=== PATIENT | female | born 1950 | race Caucasian/White ===

== ENCOUNTER 2023-06-30 15:00 | Emergency (ER) | payer OTHER ==
--- NOTE | 2023-06-30 16:08 | RAD REPORT ---
EXAM DESCRIPTION: RAD - Chest Single View - 06/30/2023 3:55 pm CLINICAL HISTORY: AMS COMPARISON: <Comparisons> FINDINGS: Lines: None. Lungs: No evidence of edema or pneumonia. Pleural: No significant pleural effusions or pneumothorax. Cardiac: Mild enlargement of the cardiopericardial silhouette which is likely accentuated by portable technique. Mediastinum: Within normal limits. Bones: No acute fractures. Other: None IMPRESSION: No acute cardiopulmonary disease.
[2023-06-30] MEDS ORDERED: ACETAMINOPHEN 500 MG TAB ONE (16:28)
[2023-06-30 16:29] LABS: Anion Gap 9.5 mEq/L (5.0-15.0); Potassium 3.5 mEq/L (3.5-5.1); Troponin High Sensitivity 53.5 pg/mL (<58.9)
[2023-06-30 16:38] LABS: Absolute Basophils 0.1 K/uL (0-0.5); Absolute Eosinophils 0.3 K/uL (0-0.5); Absolute Lymphocytes (CBC) 2.3 K/uL (0.7-4.9); Absolute Monocytes 0.7 K/uL (0.1-1.3); Absolute Neutrophil 7.6 K/uL (1.8-8.0); Basophils % 0.8 % (0-1.3); Eosinophils % 2.5 % (0-4.4); Hematocrit 27.7 % (36.0-45.0); Hemoglobin 8.4 g/dL (12.0-15.0); Lymphocytes % 21.3 % (15.3-44.8); MCH 20.8 pg (27.0-35.0); MCHC 30.4 g/dL (32.0-36.0); MCV 68.2 fL (80-100); MPV 7.3 fL (7.6-11.3); Monocytes % 6.5 % (3.3-12.3); Neutrophils % 68.9 % (41.7-73.7); Nucleated Red Blood Cells % 0.2 % (0-0); Platelets 412 thou/uL (152-406); RBC Red Blood Cell Count 4.06 M/uL (3.86-4.86); Red Cell Distribution Width 19.7 % (12.1-15.2)
[2023-06-30 17:34] LABS: Anisocytosis 1+; Blood Morphology Comment NOTED (NOT SEEN); Platelet Estimate INCR; White Blood Cell Scan OK (OK)
[2023-06-30 17:35] LABS: Hypochromasia 1+
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
--- NOTE | 2023-06-30 17:44 | ER ---
Nurse's Notes [facility] Name: Gwendolyn Grier Age: 72 yrs Sex: Female : 1950 Arrival Date: 06/30/2023 Time: 15:00 Bed 8 Private MD: Diagnosis: Anemia, unspecified;Chronic atrial fibrillation Presentation: 06/29 16:15 Acuity: [place] 3 ap3 16:16 Coronavirus screen: At this time, the client does not indicate any symptoms associated ap3 with coronavirus-19. Ebola Screen: No symptoms or risks identified at this time. No acute neurological deficit is noted. Risk Assessment: Do you want to hurt yourself or someone else? Patient reports no desire to harm self or others. Onset of symptoms is unknown. 16:16 Method Of Arrival: Wheelchair ap3 16:18 Initial Sepsis Screen: Does the patient meet any 2 criteria? No. Patient's initial ap3 sepsis screen is negative. Does the patient have a suspected source of infection? No. Patient's initial sepsis screen is negative. Triage Assessment: 16:17 General: Appears obese, Behavior is anxious. Pain: Complains of pain in generalized. ap3 Neuro: Level of Consciousness is awake, alert, obeys commands, Oriented to person, place, time, situation, Appropriate for age Speech is normal. Cardiovascular: Patient's skin is warm and dry. Respiratory: Airway is patent Respiratory effort is even, unlabored, Respiratory pattern is regular, symmetrical. Historical: - Allergies: 17:20 No Known Allergies; bo1 - Immunization history:: Adult Immunizations unknown. - Infectious Disease History:: Denies. - Social history:: Smoking status: Patient denies any tobacco usage or history of. Screenin:18 Abuse screen: Denies threats or abuse. Nutritional screening: No deficits noted. ap3 Tuberculosis screening: No symptoms or risk factors identified. 16:32 [place] Swallow Protocol Exclusion Criteria: Unable to remain alert for testing: No NPO ap3 for medical/surgical reason by provider order No Head-of-bed restricted <30 degrees Tracheostomy tube present No No thin liquids due to preexisting dysphagia/baseline modified diet thickened liquids No Brief Cognitive Screen What is your name? Normal, Where are you right now? Normal, What year is it? Normal. Oral Mechanism Examination Facial Symmetry: Normal, Motion: Normal, Lip Closure: Normal, Oral Mechanism Result: Normal. 3 oz Water Swallow Challenge: Pt able to drink all water without stopping, coughing, choking or throat clearing: Yes Result: PASS Notified: Ze Solis MD. 17:00 [facility] ED Fall Risk Assessment (Adult) History of falling in the last 3 months, ko1 including since admission No falls in past 3 months (0 pts) Confusion or Disorientation No (0 pts) Intoxicated or Sedated No (0 pts) Impaired Gait Yes (1 pt) Mobility Assist Device Used Yes (1 pt) Altered Elimination No (0 pt) Score/Fall Risk Level 0 - 2 = Low Risk Oriented to surroundings, Maintained a safe environment, Educated pt \T\ family on fall prevention, incl call for assistance when getting out of bed, Assessed \T\ reinforced patient's understanding of fall precautions, Provided non-skid footwear, Hourly rounding (assess needs \T\ fall precautionary measures) done, Used ambulatory aids as needed (educated on \T\ assisted with), Used gait belt as appropriate. Assessment: 17:00 General: Appears obese, Behavior is anxious. Pain: Denies pain. Neuro: No deficits ko1 noted. Cardiovascular: No deficits noted. Respiratory: Reports shortness of breath. GI: No deficits noted. : No deficits noted. EENT: No deficits noted. Derm: No deficits noted. Derm: No deficits noted. Musculoskeletal: No deficits noted. Vital Signs: 16:16 BP 156 / 82; Pulse 93; Resp 19; Temp 97.7; Pulse Ox 98% ; ap3 17:00 BP 134 / 68; Pulse 74; Resp 16; Pulse Ox 99% ; ko1 17:20 BP 121 / 70; Pulse 79; Resp 17; Pulse Ox 99% ; ap3 NIH Stroke Scale Scores: 17:13 NIHSS Score: 0 bo1 ED Course: 15:06 Patient arrived in ED. mr 15:07 Ze Solis MD is Attending Physician. bo1 15:08 Arm band placed on Patient placed in an exam room, on a stretcher. hb 15:33 Radiology exam delayed due to PT IS REFUSING EXAM, SHE SAID SHE WILL NOT LAY DOWN 2 TO nj [address] SOLIS. 15:56 Stroke CXR 1 View In Process Unspecified. EDMS 16:01 Petra Pérez, RN is Primary Nurse. ap3 16:01 by al, sent to lab. Inserted saline lock: 22 gauge in left hand, using aseptic ap3 technique. Blood collected. 16:16 Triage completed. ap3 16:18 Patient has correct armband on for positive identification. Bed in low position. Call ap3 light in reach. Side rails up X2. Adult w/ patient. panel monitor on. Pulse ox on. NIBP on. 16:30 Patient requests pain medication. ap3 17:00 Provided Education on: na. ko1 17:00 No provider procedures requiring assistance completed. IV discontinued, intact, ko1 bleeding controlled, No redness/swelling at site. Pressure dressing applied. 17:03 Notified ED physician of a critical lab result(s). LACTATE 2.1. hb 17:05 EKG done, by ED staff, reviewed by Ze Solis MD. ap3 Administered Medications: 16:33 Drug: Acetaminophen PO 1000 mg PO once Route: PO; ap3 Medication: 16:18 VIS not applicable for this client. ap3 Outcome: 17:00 Discharged to home via wheelchair, with family, ko1 17:00 Condition: stable 17:00 Discharge instructions given to patient, family, Instructed on discharge instructions, follow up and referral plans. Demonstrated understanding of instructions, follow-up care, Prescriptions given X 1, 17:44 Discharge ordered by . bo1 18:23 Patient left the ED. ko1 NIH Stroke Scale - NIH Stroke Score Date: 06/30/2023 Time: 17:13 Total Score = 0 10. Dysarthria (speech clarity - read or repeat words) - 0(Normal) 11. Extinction and Inattention (visual/tactile/auditory/spatial/personal) - 0(No abnormality) 1a. Level of Consciousness (LOC) - 0(Alert) 1b. Level of Consciousness (LOC) (Month \T\ Age) - 0(Both) 1c. LOC Commands (Open \T\ Closes Eyes/Certified Breastfeeding Educator) - 0(Both) 2. Best Gaze (Lateral Gaze Paresis) - 0(Normal) 3. Visual Field Loss - 0(No visual loss) 4. Facial Palsy - 0(Normal) 5a. Left Arm: Motor (10-second hold) - 0(No drift) 5b. Right Arm: Motor (10-second hold) - 0(No drift) 6a. Left Leg: Motor (5-second hold - always test supine) - 0(No drift) 6b. Right Leg: Motor (5-second hold - always test supine) - 0(No drift) 7. Limb Ataxia (finger/nose \T\ heel/zendejas - test with eyes open) - 0(Absent) 8. Sensory Loss (pinprick arms/legs/face) - 0(Normal) 9. Best Language: Aphasia (description/naming/reading) - 0(No aphasia) Initials: bo1 Signatures: Dispatcher [employer] EDCT Julian Michelle, Reg Reg mr BustamanteConcha, RN RN Major Munoz Amanda, RN RN ap3 Marsha Alan RN RN ko1 Ze Solis MD MD bo1 Corrections: (The following items were deleted from the chart) 16:39 16:38 General: ap3 ap3
[2023-06-30 19:55] VITALS: BP 121/70; TEMP 97.7; O2SAT 99
--- NOTE | 2023-07-03 12:50 | EKG ---
Test Date: 2023-06-30 Test Time: 16:56:09 Cloth Hand: ALP MEASUREMENT RESULTS: Intervals: Rate: 88 UT: QRSD: 80 QT: 342 QTc: 413 [place]: P: UT: QRS: 47 T: -2 INTERPRETIVE STATEMENTS: Atrial fibrillation Low voltage QRS Nonspecific T wave abnormality Abnormal ECG No previous ECG available for comparison Electronically Signed On 07-03-23 12:43:17 CDT by Krishna Palencia
== END 2023-06-30 18:23 | disposition home or self-care (01) ==
LOC: ER 15:00
DX: D64.9 Anemia, unspecified (principal); I48.20 Chronic atrial fibrillation, unspecified
CPT/HCPCS: 36415; 71045; 80048; 83605; 84484; 85025; 93005; 99284

== ENCOUNTER 2023-12-02 11:48 | Emergency (ER) | payer OTHER ==
--- OUTSIDE RECORDS SUMMARY | 2023-12-02 12:04 | XMS REPORT | Continuity of Care Document ---
Author Name Unknown Address [address] [place] [address] [facility] thconnect Address [address] [place] [address] Care Team Providers Care Backbreaker Name Role Phone Pcp, Patient Does Not Have A Primary Care Physic brant Ivan Rogers MD Attending Clinician Daisy Nelson RN Attending Clinician Unavailable ANNA PEOPLES Attending Clinician UnavailANNA Jolly Attending Clinician UnavailPablo Morejon MD Attending Clinician [phone] Stefanie Benites MD Attending Clinician [phone] Anna Peoples MD Attending Clinician [phone] STEFANIE BENITES Admitting Clinician Stefanie Gonzales MD Admitting Clinician [phone] Payers Payer Name Policy Type Policy Number Effective Date Expirati on Date Source Problems Condition Name Condition Details Condition Category Status Onset Date Resolution Date Last Treatment Date Treating Clinician Comments Source Abdominal pain, unspecifie d abdominal location Abdominal pain, unspecifie d abdominal location Disease Active 11-19 00:00: 00 [facility] Allergies, Adverse Reactions, Alerts Allergy Name Allergy Type Status Severity Reaction(s) Onset Date Inactive Date Treating Clinician Comments Source NO KNOWN ALLERGIE S Drug Class Active [facility] Social History Social Habit Start Date Stop Date Quantity Comments Source History of tobacco use Cigarette Smoker [facility] Sexual orientation [facility] Cigarettes smoked current (pack per day) - Reported 2023-11-22 00:00:00 2023-11-22 00:00:00 [facility] Cigarette pack-years 2023-11-22 00:00:00 2023-11-22 00:00:00 [facility] Tobacco use and exposure 2023-11-22 00:00:00 2023-11-22 00:00:00 Smokeless tobacco non-user [facility] History of Social function 2023-11-21 00:00:00 2023-11-21 00:00:00 [facility] Sex assigned at 1950 00:00:00 1950 00:00:00 [facility] Smoking Status Start Date Stop Date Source Ex-smoker 2023-11-22 00:00:00 2023-11-22 00:00:00 [facility] Medications Ordered Medication Name Filled Medication Name Start Date Stop Date Current Medication? Ordering Clinician Indication Dosage Frequency Signature (SIG) Comments Components Source HYDROcodone -acetaminop hen 5-325 mg tablet 11-27 00:00: 00 Yes [id number] 1{tbl} Take 1 tablet by mouth every 6 (six) hours as needed for Pain (scale 7-10). Indication s: acute pain, chronic pain [facility] gabapentin 100 mg capsule 11-23 00:00: 00 Yes [id number] 100mg Take 1 capsule by mouth in the morning. [facility] polyethylen e glycol 3350 17 gram powder 11-23 00:00: 00 Yes [id number] 17g Take 1 Packet by mouth in the morning. [facility] sennosides 8.6 mg tablet 11-23 00:00: 00 Yes [id number] 8.6mg Take 1 tablet by mouth in the morning. [facility] perflutren lipid microsphere s (DEFINITY) injection 2 mL 11-22 15:30: 00 11-22 15:30 :00 No [id number] 2mL 2 mL, IV Push, ONCE, 1 dose, On Mon11/23/23 at 1030, Routine [facility] Potassium Bicarb-Citr ic Acid (EFFER-K) effervescen t tablet 40 mEq 11-22 13:15: 00 11-22 13:06 :00 No 40meq 40 mEq, Oral, ONCE, 1 dose, On Mon11/23/23 at 0815, Routine [facility] cephALEXin (KEFLEX) capsule 500 mg 11-22 13:00: 00 11-27 12:59 :00 Yes 500mg 500 mg, Oral, Q12H, 10 doses, First dose on Mon11/23/23 at 0800, Last dose on Mon11/27/23 at 2000, DIMAS, Reason for Anti-Infec tive: Documented Infection, Documented Infection Site: Urine, Duration of Therapy: 7 days [facility] cephALEXin 500 mg capsule 11-22 00:00: 00 Yes [id number] 500mg Take 1 capsule by mouth every 12 (twelve) hours. [facility] ferrous sulfate 325 mg (65 mg iron) tablet 11-22 00:00: 00 Yes [id number] 325mg Take 1 tablet by mouth every other day. [facility] HYDROcodone -acetaminop hen 5-325 mg tablet 11-22 00:00: 00 11-27 00:00 :00 No [id number] 1{tbl} Take 1 tablet by mouth every 6 (six) hours as needed for Pain (scale 7-10) for up to 7 days. Indication s: acute pain [facility] lidocaine 4% (L-M-X 4) 4 % cream 11-21 22:00: 00 11-21 22:36 :00 No Topical, ONCE, 1 dose, On Mon11/22/23 at 1700, Routine [facility] gabapentin (NEURONTIN) capsule 100 mg 11-21 18:15: 00 Yes 100mg 100 mg, Oral, DAILY, First dose (after last modificati on) on Mon11/22/23 at 1315, Until Discontinu ed, Routine [facility] HYDROcodone -acetaminop hen (NORCO 5) tablet 1 tablet 11-21 14:45: 33 Yes 1{tbl} 1 tablet, Oral, Q6HPRN, Starting on Mon11/22/23 at 0945, Until Discontinu ed, Routine, Pain (scale 7-10) [facility] simethicone (GAS RELIEF (SIMETHICON E)) chewable tablet 80 mg 11-21 14:00: 00 Yes 80mg 80 mg, Oral, PC+HS, First dose on Mon11/22/23 at 0900, Until Discontinu ed, Routine [facility] cefTRIAXone (ROCEPHIN) 1,000 mg in NaCl 0.9% (NS) 100 mL MINI-BAG 11-20 21:00: 00 11-22 12:28 :15 No 1000mg 1,000 mg, IV Piggyback, Q24H ABX, 5 doses, First dose on Mon11/21/23 at 1600, Last dose on Mon11/25/23 at 1600, Administer over 30 Minutes, 100 mL, Reason for Anti-Infec tive: Documented Infection, Documented Infection Site: Urine, Duration of Therapy: 7 days [facility] polyethylen e glycol 3350 powder 17 g 11-20 14:00: 00 Yes 17g [Order 1 Start] Name: polyethyle ne glycol 3350 powder 17 g Signed Summary: 17 g, Oral, DAILY, First dose on Mon11/21/23 at 0900, Until Discontinu ed, Routine [Order 1 End] [Order 2 Start] Name: sennosides (SENOKOT) tablet 8.6 mg Signed Summary: 8.6 mg, Oral, DAILY, First dose on Mon11/21/23 at 0900, Until Discontinu ed, Routine [Order 2 End] [facility] ramelteon (ROZEREM) tablet 8 mg 11-20 05:00: 00 11-20 05:00 :00 No 8mg 8 mg, Oral, ONCE NOW, 1 dose, On Mon11/21/23 at 0000, Routine [facility] glycerin/mi neral oil (AGLO ENEMA) (COMPOUNDED ) Enem 225 mL 11-20 04:19: 23 Yes 225mL 225 mL, Rectal, PRN, Starting on Mon11/20/23 at 2319, Until Discontinu ed, Routine, Constipati on unresolved by oral medication s [facility] heparin (porcine) injection 5,000 Units 11-20 03:00: 00 Yes 5000U 5,000 Units, Subcutaneo us, Q8H, First dose on Mon11/20/23 at 2200, Until Discontinu ed, Routine [facility] acetaminoph en (TYLENOL) tablet 650 mg 11-20 02:16: 20 Yes 650mg [facility] insulin lispro (human) (HumaLOG U-100) injection 2 Units 11-19 22:22: 30 Yes 2U 2 Units, Subcutaneo us, PRN - SEE INSTRUCTIO NS, 1 dose, Starting on Mon11/20/23 at 1722, Until Discontinu ed, Routine, For blood glucose > 300 mg/dL [facility] dextrose 10% (D10W) bolus infusion 125 mL 11-19 22:22: 30 11-20 00:19 :00 No 125mL 125 mL, Intravenou s, PRN - SEE INSTRUCTIO NS, Administer over 60 Minutes, Other, Administer once if after insulin administra tion, blood glucose is 71-140 mg/dL and patient is unable to eat a 15 g carb snack, Starting on Mon11/20/23 at 1722, For 1 dose, If patient is able to eat/swallo w, give 15 gram carb snack - Sprite or cranberry juice. [facility] NaCl 0.9% (NS) bolus infusion 500 mL 11-19 22:00: 00 11-19 23:24 :00 No [id number] 500mL at 999 mL/hr, 500 mL, IV Piggyback, ONCE, 1 dose, On Mon11/20/23 at 1700, STAT [facility] lidocaine (XYLOCAINE) 2 % jelly URO-JET 10 mL 11-19 20:45: 11-19 22:32 :00 No 10mL 10 mL, Urethral, ONCE, 1 dose, On Mon11/20/23 at 1545, Routine [facility] sodium bicarbonate 150 mEq in D5W 1,000 mL IV infusion 11-19 20:30: 00 11-20 06:30 :00 No 150meq IV Infusion, at 200 mL/hr, 150 mEq, ONCE, 1 dose, On Mon11/20/23 at 1530, DIMAS [facility] insulin regular human (HUMULIN R) injection 10 Units 11-19 20:30: 00 11-19 23:14 :00 No 10U 10 Units, IV Push, ONCE, 1 dose, On Mon11/20/23 at 1530, DIMAS, Indication for insulin: Hyperkalem ia- Please use the Insulin Protocol for Hyperkalem ia order set [facility] dextrose 50 % in water (D50W) injection 50 mL 11-19 20:30: 00 11-19 23:06 :00 No 50mL 50 mL, Slow IV Push, ONCE, 1 dose, On Mon11/20/23 at 1530, DIMAS [facility] glucagon HCL injection 1 mg 11-19 20:17: 46 Yes 1mg 1 mg, Intramuscu lar, PRN, Starting on Mon11/20/23 at 1517, Until Discontinu ed, DIMAS, Low blood sugar, Blood Glucose < or = 70 mg/dL and patient is NPO, unable to swallow or has mental changes. [facility] dextrose 50 % in water (D50W) injection 25 mL 11-19 20:17: 46 Yes 25mL 25 mL, Slow IV Push, PRN, Starting on Mon11/20/23 at 1517, Until Discontinu ed, DIMAS, Blood Glucose < or = 70 mg/dL and patient is NPO, unable to swallow or has mental status changes. [facility] metoclopram margarita HCl (REGLAN) injection 10 mg 11-19 20:00: 00 11-19 20:48 :00 No 10mg 10 mg, Slow IV Push, ONCE, 1 dose, On Mon11/20/23 at 1500, DIMAS [facility] fentanyl PF (SUBLIMAZE (PF)) injection 12.5 mcg 11-19 20:00: 00 11-19 20:34 :00 No 12.5ug 12.5 mcg, Slow IV Push, ONCE, 1 dose, On Mon11/20/23 at 1500, Routine [facility] piperacilli n-tazobacta m (ZOSYN) 2.25 g in NaCl 0.9% (NS) 100 mL MINI-BAG 11-19 20:00: 00 11-19 22:31 :00 No 2.25g 2.25 g, IV Piggyback, ONCE, 1 dose, On Mon11/20/23 at 1500, Administer over 30 Minutes, 100 mL, Reason for Anti-Infec tive: Documented Infection, Documented Infection Site: Urine, Duration of Therapy: Once (ED) [facility] NaCl 0.9% (NS) bolus infusion 500 mL 11-19 17:30: 00 11-19 22:31 :00 No 500mL at 999 mL/hr, 500 mL, IV Infusion, ONCE, 1 dose, On Mon11/20/23 at 1230, STAT [facility] Vital Signs Vital Name Observation Time Observation Value Comments S ource Systolic blood pressure 2023-11-23 16:54:00 136 [facility] Diastolic blood pressure 2023-11-23 16:54:00 61 mm[Hg[facility] Heart rate 2023-11-23 16:54:00 92 /min [facility] Body temperature 2023-11-23 16:54:00 36.22 Adore [facility] Respiratory rate 2023-11-23 16:54:00 18 /min [facility] Oxygen saturation in Arterial blood by Pulse oximetry 2023-11-23 16:54:00 96 /min [facility] Body height 2023-11-21 01:17:00 170.2 cm [facility] Body weight 2023-11-21 01:17:00 171.913 kg [facility] BMI 2023-11-21 01:17:00 59.36 kg/m2 [facility] Procedures Procedure Date / Time Performed Performing Clinician Source TRANSTHORACIC ECHO (TTE) COMPLETE W/ CONTRAST 2023-11-23 15:24:26 Radha [facility] MAGNESIUM 2023-11-23 11:09:00 Radha Cherry [facility] BASIC METABOLIC PANEL (NA, K, CL, CO2, GLUCOSE, BUN, CREATININE, CA) 2023-11-23 11:09:00 [facility] CBC WITH DIFF 2023-11-23 11:09:00 [facility] HB ECG ROUTINE & RHYTHM STRIP 2023-11-22 14:50:13 Radha [facility] MAGNESIUM 2023-11-22 10:01:00 Jet Aguilar [facility] THYROID STIMULATING HORMONE 2023-11-22 10:01:00 Radha [facility] BASIC METABOLIC PANEL (NA, K, CL, CO2, GLUCOSE, BUN, CREATININE, CA) 2023-11-22 10:01:00 Jet Aguilar [facility] CBC WITH DIFF 2023-11-22 10:01:00 Jet Aguilar [facility] CBC WITHOUT DIFF 2023-11-21 16:46:00 Jet Aguilar [facility] US RETROPERITONEAL LIMITED 2023-11-21 12:03:00 [facility] PREPARE PACKED RBC 2023-11-21 11:09:04 Kiera Davidson [facility] ABORH CONFIRMATION (LAB ONLY) 2023-11-21 10:16:00 Anna Peoples [facility] HB ABO GROUPING 2023-11-21 10:05:00 Thelma Davidson [facility] CBC WITHOUT DIFF 2023-11-21 09:34:00 King Davidson [facility] MAGNESIUM 2023-11-21 08:51:00 [facility] BASIC METABOLIC PANEL (NA, K, CL, CO2, GLUCOSE, BUN, CREATININE, CA) 2023-11-21 08:51:00 [facility] CBC WITH DIFF 2023-11-21 08:51:00 [facility] LACTIC ACID WHOLE BLOOD 2023-11-21 04:02:00 [facility] BLOOD CULTURE SCREEN 2023-11-21 03:55:00 Cyndy Davidson [facility] LACTATE DEHYDROGENASE 2023-11-21 03:05:00 [facility], LEV[facility] 2023-11-21 03:05:00 Kiera Davidson [facility] FOLATE 2023-11-21 03:05:00 [facility] BASIC METABOLIC PANEL (NA, K, CL, CO2, GLUCOSE, BUN, CREATININE, CA) 2023-11-21 03:05:00 [facility] IRON PANEL 2023-11-21 03:05:00 [facility] ETHANOL 2023-11-21 03:05:00 [facility] 2023-11-21 03:05:00 Kirk Davidsonmehdi [facility] ACTIVATED PARTIAL THRMPLAS JESUS MANUEL 2023-11-21 03:05:00 [facility] URINE CULTURE 2023-11-21 02:54:00 [facility] POCT GLUCOSE (AUTOMATED) 2023-11-21 01:29:00 Stefanie Benites [facility] POCT GLUCOSE (AUTOMATED) 2023-11-20 23:13:00 Joleen Chinchilla [facility] INFLUENZA A/B RSV COVID NAAT 2023-11-20 22:31:00 Pablo Chinchilla [facility] LAB ONLY COVID INTERPRETATION 2023-11-20 22:31:00 Pablo Chinchilla [facility] POCT GLUCOSE(AGE >30DAYS) 2023-11-20 21:25:00 Pablo Chinchilla [facility] POCT GLUCOSE (AUTOMATED) 2023-11-20 21:21:00 Joleen Chinchilla [facility] URINE DRUG (IMMUNOASSAY) - COMPREHENSIVE DRUG SCREEN 2023-11-20 21:14:00 [facility] URINALYSIS 2023-11-20 21:14:00 Pablo Chinchilla [facility] CT ABDOMEN PELVIS WO CONTRAST 2023-11-20 19:45:00 Pablo Chinchilla [facility] PHOSPHORUS 2023-11-20 18:25:00 [facility] LIPASE 2023-11-20 18:25:00 Pablo Chinchilla [facility] MAGNESIUM 2023-11-20 18:25:00 Pablo Chinchilla [facility] FERRITIN SERUM 2023-11-20 18:25:00 John Davidson [facility] TROPONIN I 2023-11-20 18:25:00 Pablo Chinchilla [facility] COMP. METABOLIC PANEL (11651) 2023-11-20 18:25:00 Pablo Chinchilla [facility] LACTIC ACID WHOLE BLOOD 2023-11-20 17:16:00 Kerry Chinchilla [facility] CBC WITH DIFF 2023-11-20 17:15:00 Pablo Chinchilla [facility] RETICULOCYTES AUTOMATED 2023-11-20 17:15:00 [facility] HB ECG ROUTINE & RHYTHM STRIP 2023-11-20 16:55:53 Pablo Chinchilla [facility] Encounters Start Date/Time End Date/Time Encounter Type Admission Type Attending Clinicians Care Facility Care Department Encounter ID Source 2023-11-28 00:00:00 2023-11-28 10:13:02 Telephone Ivan Rogers [facility] [id number] [facility] 2023-11-24 00:00:00 2023-11-24 11:30:21 Transition of Care Daisy Nelson [id number] [facility] 2023-11-20 11:14:00 2023-11-23 19:45:00 Inpatient X RICHELLE, ANNA PEOPLESJOSEAH [facility] YAR[facility] [id number] [facility] 2023-11-20 11:14:00 2023-11-23 19:45:00 Hospital Encounter Pablo Chinchilla, Stefanie Peoples, Anna Brown [facility] [id number] [facility] Results Test Description Test Time Test Comments Results Result Co mments Source [facility] RET[facility] [id number] 14:55:16 US RETROPERITONEAL LIMITED 11/21/2023 6:15 AM HISTORY: bilateral ureterohydronephrosis . COMPARISON:None. Correlation CT abdomen dated 11/20/2023. FINDINGS: RIGHT KIDNEY: The renal length measures 12.7 cm. Normal cortical thicknessand echotexture. Mild hydronephrosis with AP diameter of the renal pel vismeasuring 1.5 cm. No mass or stone. LEFT KIDNEY: Not clearly assessed due to significant bowel gases.[facility] Packed RBC (in units), 1 [id number] 11:09:04* Test Item Value Reference Range Interpretation Comme nts Cross Match Result (test code = 4409) Compatible ISBT Blood Type Code (test code = 700551) 6200 Unit Blood Type (test code = 4410) A Pos Unit Number (test code = 4411) [id number] Blood Expiration Date & Time (test code = 511535) 238252949156 Status Information (test code = 4412) Issued Product Identification (test code = 4413) Red Blood Cells Product Code (test code = 4414) [id number] Performed at [facility] Laboratory Services - [facility] Blood [address] [address]Mruj Free: [phone] No. [id number] [facility]Lactic Acid Whole [id number] 04:23:24* Test Item Value Reference Range Interpretation Comme nts LACTIC ACID (test code = 0166796052) 1.38 mmol/L 0.50-2.20 Lab Interpretation (test cod e = 00556-2) Normal [facility] CampusReticulocytes [id number] 03:16:45* Test Item Value Reference Range Interpretation Comme nts RETIC Count Automated (test code = 0299993180) 1.32 % 0.51-1.90 RETIC Absolute Count (test c ode = 2627413615) 0.0478 0.0230-0.0950 IRF % (test code = 7554230609) 29.60 % 2.10-12.60 H RETIC-HE (test code = 7250256716) 25.1 pg 28.1-35.8 L Lab Interpretation (test cod e = 10063-3) Abnormal [facility] GLUCOSE (AUTOMATED)2023-11-21 01:30:47* Test Item Value Reference Range Interpretation Comme nts POCT GLU (test code = 7139062619) 129 mg/dL 70-110 H Lab Interpretation (test cod e = 43866-1) Abnormal [facility] GLUCOSE (AUTOMATED)2023-11-20 23:14:41* Test Item Value Reference Range Interpretation Comme nts POCT GLU (test code = 2212201188) 197 mg/dL 70-110 H Lab Interpretation (test cod e = 69210-9) Abnormal [facility] Glucose (AGE >30 DAYS) - Prior to Insulin Bolus Administration - See [id number] 21:25:00* Test Item Value Reference Range Interpretation Comme nts POCT Glu (age>30days) (test code = 3342) 109 mg/dL 70-110 Lab Interpretation (test cod e = 61652-9) Normal [facility] GLUCOSE (AUTOMATED)2023-11-20 21:21:42* Test Item Value Reference Range Interpretation Comme [facility] POCT GLU (test code = 3228873768) 109 mg/dL 70-110 Lab Interpretation (test cod e = 25036-7) Normal [facility] A[facility]EN PELVIS WO [id number] 20:39:17ORDERING PHYSICIAN: PABLO CHINCHILLA HISTORY: Peritonitis or perforation suspected Bowel obstruction suspected Abdominal pain, acute, nonlocalized TECHNIQUE: CT abdomen and pelvis without intravenous contrast. Thisexamination was performed according to ALARA principles. COMPARISON: None. FINDINGS:Visualized lower chest: Small hiatal hernia. Gastrointestinal: Liver is within normal. Gallbladdercontains a largestone. Pancreas and spleen are within normal limits. Stomach and smallbowel are within normal limits. Large bowel extends into a ventral hernia.Colonic diverticula. Rectum is distended by stool. Genitourinary: Adrenal glands are within normal limits. Bilateralhydroureteronephrosis. Bladder is markedly distended. Pelvic organs arewithin normal limits. Vascular and retroperitoneum: Aorta and iliac artery atheroscleroticcalcifications. No lymphadenopathy. Bones: No acute abnormality. [facility] [id number] 18:35:31* Test Item Value Reference Range Interpretation Comme [facility] WBC (test code = 6690-2) 19.72 4.30-11.10 H RBC (test code = 789-8) 3.56 3.93-5.25 L HGB (test code = 718-7) 8.0 g/dL 11.6-15.0 L HCT (test code = 4544-3) 26.8 % 35.7-45.2 L MCV (test code = 787-2) 75.3 fL 80.6-95.5 L MCH (test code = 785-6) 22.5 pg 25.9-32.8 L MCHC (test code = 786-4) 29.9 g/dL 31.6-35.1 L RDW-SD (test code = 71898-3) 55.5 fL 39.0-49.9 H RDW-CV (test code = 788-0) 20.8 % 12.0-15.5 H PLT (test code = 777-3) 410 166-358 H MPV (test code = 27690-6) 9.6 fL 9.5-12.9 NRBC/100 WBC (test code = 7052704145) 0.0 0.0-10.0 NRBC x10^3 (test code = 2186058651) See_Comment [Automated message] The system which generated this result transmitted reference range: 10*3/?L. The reference range was not used to interpret this result as normal/abnormal. GRAN MAT (NEUT) % (test code = 770-8) 87.7 % IMM GRAN % (test code = 0406316706) 1.10 % LYMPH % (test code = 736-9) 6.3 % MONO % (test code = 5905-5) 4.1 % EOS % (test code = 713-8) 0.4 % BASO % (test code = 706-2) 0.4 % GRAN MAT x10^3(ANC) (test code = 8081518261) 17.31 10*3/uL 1.88-7.09 H IMM GRAN x10^3 (test code = 7006456263) 0.22 10*3/uL 0.00-0.06 H LYMPH x10^3 (test code = 731-0) 1.24 10*3/uL 1.32-3.29 L MONO x10^3 (test code = 742-7) 0.81 10*3/uL 0.33-0.92 EOS x10^3 (test code = 711-2) 0.07 10*3/uL 0.03-0.39 BASO x10^3 (test code = 704-7) 0.07 10*3/uL 0.01-0.07 ELLIPTO/OVAL (test code = 58534-3) 2+ See_Comment A [Automated message] The system which generated this result transmitted reference range: (none). The reference range was not used to interpret this result as normal/abnormal. SPHEROCYTES (test code = 802-9) 1+ A BANDS (test code = 2501034193) Increased A TOXIC CHANGES (test code = 803-7) Present A Lab Interpretation (test code = 76679-2) [facility]normal [facility] [id number] 17:22:29* Test Item Value Reference Range Interpretation Comme nts LACTIC ACID (test code = 4725693375) 2.98 mmol/L 0.50-2.20 H Lab Interpretation (test cod e = 96188-4) Abnormal [facility] Consult Notes Date/Time Note Provider Source 2023-11-22 10:15:00 Associated Order(s): CONSULT ADULT PHYSICAL THERAPY Patient cleared with nursing and agreeable to working with physical therapy. Patient met semi reclined in bed and daughter at bedside . Recommend nursing staff utilize mechanical lift with total assist x 2 to safely assist patient with mobility out of the bed or chair. PHYSICAL THERAPY EVALUATION Consult received, chart reviewed and evaluation complete this date. Patient is referred to PT for evaluation and treatment. Patient is a 73 year old female who presents to hospital for Abdominal pain, unspecified abdominal location [R10.9] NAOMY, UTI, metabolic encephalopathy and afib, not in RVR. Discharge Recommendations: Therapy Needs and Potential: Patient would benefit from continued physical therapy services to address: decline in bed mobility decline in transfers decline in gait and/or balance decreased strength decreased endurance decreased coordination Patient demonstrates good potential to improve and meet therapy goals with further physical therapy services. Patient appears motivated to improve their functional mobility and return to their previous level of function. Patient demonstrates ability to tolerate atleast 30-60 minutes of physical therapy with active participation. Patient will benefit with post acute rehab and 17/10 assist Challenges to Home Transition: increased risk of falls decreased caregiver availability decreased safety awareness environmental barriers Equipment recommendations: wheelchair and mechanical lift - will update accordingly as patient improve with PT Current Functional Status and/or Treatment: AM-PAC 6 Clicks (Raw Score 0=Dependent, 24=Independent; Low function Raw Score 0= Dependent, 32=Independent): Raw Score - Basic Mobility : 8 T-Scale Score - Basic Mobility : 22.61 Patient is alert, Ox3 but gets confused and pushed back during bed mobility d/t fear of falling and c/o pain. Required extended time to participate with max cues and education. Bed Mobility: (2 attempts) Supine <> sit: Max Assistance x 2 Scooting to edge of bed: Max Assistance x 2 Sitting EOB for ~ 1 mins while wt shifting and performing ankle pumping ex SKILLED THERAPY INTERVENTION PERFORMED Cued for proper body mechanics during transition supine to sit Provided assistance to swing B LE out of the bed and onto bed Facilitated B hips to help scoot towards edge of bed Instructed patient to push up on the elbow then to hand to gently lift self up to sitting on EOB Cued provided for pursed lip breathing Max cues for sequence of activities Provided patient with extra time to complete task Dizziness No Transfers: patient refused d/t fear of falling and pain Ambulation: patient refused d/t fear of falling and pain Therapeutic exercise: Patient educated in ROM ex, Postural / positional Awareness, Compensatory techniques/adaptive strategies, Energy conservation, and Fall prevention, instructed patient an exercise program and which she performed the following: AROM ex of bilateral LE while supine A-P 10 reps x 2 sets cues provided for self pacing so as to promote proper quality of motion as well as target specific muscle groups for increased strength and reach full pain free ROM Patient educated on the following: energy conservation and breathing ex. Functional Outcome Measures: (Values within the past 12 hours) After session, patient semi reclined in bed. Call button provided. All needs met, RN aware, family present. PLAN OF CARE: While in the hospital, PT will follow patient at least 2 times per week,once or twice a day, per patient's tolerance and needs. See below for complete details. Admit Date: 11/20/2023 Hospital Diagnosis:Abdominal pain, unspecified abdominal location [R10.9] NAOMY, UTI, metabolic encephalopathy and afib, not in RVR. PT Diagnosis: Difficulty walking, Weakness, and Pain Weight Bearing Precaution: NA General Precautions: General, Fall,Cote catheter, IV Peripheral Bracing/Cast present or required:N/A PMH: Past Medical History: Diagnosis Date Scoliosis PSH: Past Surgical History: Procedure Laterality Date SECTION 1984 Prior Living Situation: lives with their spouse and in a house, DME: Single Point Cane, transport chair Prior level of Mobility: house hold ambulation, ambulates with 2 straight Cane short distances, and reports of at least 5 falls in the last 6 months Suspected ischemic or hemorraghic stroke:No Subjective: "I don't want to get up. I will fall." Patient/Family Goals: Go home with . Patient/Family verbalizes understanding of condition: Yes PAIN: -Pain Location: abdomen, right foot, and left foot -Pain rating before treatment: 9, After treatment: 9 -Pain Management: Reports taking pain meds, Decreased movement aides in some pain reduction, and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 History/Immunizations: No past medical history on file. Tetanus received in last 5 years: Unknown Allergies: No Known Allergies Past Social History: Substance & Sexual Activity No substance use or sexual activity history on file. Past Surgical History: No past surgical history on file. Review of Systems: Review of Systems Constitutional: Negative for activity change, appetite change, chills, diaphoresis, fatigue and fever. HENT: Negative for congestion, ear discharge, ear pain, facial swelling, hearing loss, sore throat, tinnitus, trouble swallowing and voice change. Eyes: Negative for photophobia, pain, discharge, redness, itching and visual disturbance. Respiratory: Negative for apnea, cough, choking, chest tightness, shortness of breath and stridor. Breasts: Negative for discharge. Cardiovascular: Negative for chest pain, palpitations and leg swelling. Gastrointestinal: Positive for abdominal pain. Negative for abdominal distention, blood in stool, diarrhea, nausea and vomiting. Genitourinary: Positive for urgency. Negative for dysuria, frequency, hematuria, flank pain, enuresis and difficulty urinating. Musculoskeletal: Negative for arthralgias, back pain, gait problem, joint swelling, myalgias, neck pain and neck stiffness. Skin: Negative for color change, pallor, rash and wound. Neurological: Negative for dizziness, syncope, facial asymmetry, speech difficulty, weakness, light-headedness and headaches. Psychiatric/Behavioral: Positive for confusion. Negative for agitation, hallucinations and self-injury. The patient is not nervous/anxious. Hematological: Negative for adenopathy, cold intolerance and heat intolerance. Does not bruise/bleed easily. Endocrine: Negative for cold intolerance, heat intolerance, polydipsia and polyphagia. Physical Exam: ED Triage Vitals [11/20/23 1111] Weight 113.4 kg (250 lb) Actual or estimated Estimated by patient/family report Height 1.702 m (5' 7") BP (!) 151/79 Pulse 93 Resp 17 Temp 36.7 ?C (98.1 ?F) Temp source Oral SpO2 99 % Measured on Room air Physical Exam Constitutional: General: She is not in acute distress. Appearance: She is well-developed. She is not ill-appearing, toxic-appearing or diaphoretic. HENT: Head: Normocephalic and atraumatic. Right Ear: External ear normal. Left Ear: External ear normal. Eyes: General: No scleral icterus. Right eye: No discharge. Left eye: No discharge. Neck: Trachea: No tracheal deviation. Cardiovascular: Rate and Rhythm: Normal rate and regular rhythm. Heart sounds: Normal heart sounds. Pulmonary: Effort: Pulmonary effort is normal. No respiratory distress. Breath sounds: Normal breath sounds. No stridor. No wheezing or rales. Abdominal: General: There is no distension. Tenderness: There is abdominal tenderness. There is no guarding. Comments: Obese, indurated around umbilicus, TTP diffusely, large panus Musculoskeletal: General: No tenderness or deformity. Normal range of motion. Cervical back: Normal range of motion and neck supple. Skin: General: Skin is warm. Coloration: Skin is not pale. Findings: No erythema or rash. Neurological: General: No focal deficit present. Mental Status: She is alert. Motor: No abnormal muscle tone. Psychiatric: Behavior: Behavior normal. Radiology: CT ABDOMEN PELVIS WO CONTRAST Final Result ORDERING PHYSICIAN: PABLO CHINCHILLA HISTORY: Peritonitis or perforation suspected Bowel obstruction suspected Abdominal pain, acute, nonlocalized TECHNIQUE: CT abdomen and pelvis without intravenous contrast. This examination was performed according to ALARA principles. COMPARISON: None. FINDINGS: Visualized lower chest: Small hiatal hernia. Gastrointestinal: Liver is within normal. Gallbladder contains a large stone. Pancreas and spleen are within normal limits. Stomach and small bowel are within normal limits. Large bowel extends into a ventral hernia. Colonic diverticula. Rectum is distended by stool. Genitourinary: Adrenal glands are within normal limits. Bilateral hydroureteronephrosis. Bladder is markedly distended. Pelvic organs are within normal limits. Vascular and retroperitoneum: Aorta and iliac artery atherosclerotic calcifications. No lymphadenopathy. Bones: No acute abnormality. IMPRESSION 1. Cholelithiasis. 2. Rectum is distended by stool. 3. Bilateral hydroureteronephrosis likely related to bladder distention. RL: [id number] End of Report Lab Results: Lab Results CBC WITH DIFF - Abnormal Result Value Ref Range WBC 19.72 (*) 4.30 - 11.10 10*3/?L RBC 3.56 (*) 3.93 - 5.25 10*6/?L HGB 8.0 (*) 11.6 - 15.0 g/dL HCT 26.8 (*) 35.7 - 45.2 % MCV 75.3 (*) 80.6 - 95.5 fL MCH 22.5 (*) 25.9 - 32.8 pg MCHC 29.9 (*) 31.6 - 35.1 g/dL RDW-SD 55.5 (*) 39.0 - 49.9 fL RDW-CV 20.8 (*) 12.0 - 15.5 % PLT 410 (*) 166 - 358 10*3/?L MPV 9.6 9.5 - 12.9 fL NRBC/100 WBC 0.0 0.0 - 10.0 /100 WBCs NRBC x10 3 <0.01 10*3/?L GRAN MAT (NEUT) % 87.7 % IMM GRAN % 1.10 % LYMPH % 6.3 % MONO % 4.1 % EOS % 0.4 % BASO % 0.4 % GRAN MAT x10 3 (ANC) 17.31 (*) 1.88 - 7.09 10*3/uL IMM GRAN x10 3 0.22 (*) 0.00 - 0.06 10*3/uL LYMPH x10 3 1.24 (*) 1.32 - 3.29 10*3/uL MONO x10 3 0.81 0.33 - 0.92 10*3/uL EOS x10 3 0.07 0.03 - 0.39 10*3/uL BASO x10 3 0.07 0.01 - 0.07 10*3/uL ELLIPTO/OVAL 2+ (*) (none) SPHEROCYTES 1+ (*) BANDS Increased (*) TOXIC CHANGES Present (*) COMP. METABOLIC PANEL (36795) - Abnormal NA 131 (*) 135 - 145 mmol/L K 6.4 (*) 3.5 - 5.0 mmol/L CL 99 98 - 108 mmol/L CO2 TOTAL 13 (*) 23 - 31 mmol/L AGAP 19 (*) 2 - 16 BUN 109 (*) 7 - 23 mg/dL GLUCOSE 114 (*) 70 - 110 mg/dL CREATININE 8.84 (*) 0.50 - 1.04 mg/dL TOTAL BILI 0.8 0.1 - 1.1 mg/dL CALCIUM 8.7 8.6 - 10.6 mg/dL T PROTEIN 9.3 (*) 6.3 - 8.2 g/dL ALBUMIN 4.2 3.5 - 5.0 g/dL ALK PHOS 92 34 - 122 U/L ALTv 11 5 - 35 U/L AST(SGOT) 22 13 - 40 U/L eGFR 4.3 mL/min/1.73m2 LACTIC ACID WHOLE BLOOD - Abnormal LACTIC ACID 2.98 (*) 0.50 - 2.20 mmol/L MAGNESIUM - Abnormal MAGNESIUM 3.2 (*) 1.7 - 2.4 mg/dL TROPONIN I - Normal TROPONIN I 0.006 <=0.034 ng/mL LIPASE - Normal LIPASE 162 0 - 220 U/L POCT GLUCOSE(AGE >30DAYS) - Normal POCT Glu (age>30days) 109 70 - 110 mg/dL POCT GLUCOSE (AUTOMATED) - Normal POCT GLU 109 70 - 110 mg/dL URINALYSIS POTASSIUM SERUM BASIC METABOLIC PANEL (NA, K, CL, CO2, GLUCOSE, BUN, CREATININE, CA) POCT GLUCOSE(AGE >30DAYS) POCT GLUCOSE(AGE >30DAYS) POTASSIUM SERUM INFLUENZA A/B RSV COVID NAAT EKG: If EKG completed, see Procedure Note. Orders and Treatments: Orders Placed This Encounter Procedures CT ABDOMEN PELVIS WO CONTRAST Cbc with Diff Comp. Metabolic Panel (55631) Troponin I Lipase Urinalysis Lactic Acid Whole Blood Potassium Serum - If 2-Hour STAT Potassium </= 5.8 mEq/L, Draw Serum Potassium Q8H x 3 POCT Glucose (AGE >30 DAYS) - Prior to Insulin Bolus Administration - See Comments Basic Metabolic Panel (NA, K, CL, CO2, GLUCOSE, BUN, CREATININE, CA) Recheck 2 Hours After NS or Sodium Bicarbonate and Insulin Interventions POCT Glucose (AGE >30 DAYS) - 1 Hour After Regular Insulin Administration STAT POCT Glucose (AGE >30 DAYS) - 2 Hours After Regular Insulin Administration STAT Potassium Serum - 2 Hours After Regular Insulin Administration POCT Glucose (AGE >30 DAYS) Iron Magnesium POCT GLUCOSE (AUTOMATED) Influenza A B RSV COVID NAAT Orders Placed This Encounter Medications NaCl 0.9% (NS) bolus infusion 500 mL metoclopramide HCl (REGLAN) injection 10 mg piperacillin-tazobactam (ZOSYN) 2.25 g in NaCl 0.9% (NS) 100 mL MINI-BAG lidocaine (XYLOCAINE) 2 % jelly URO-JET 10 mL fentanyl PF (SUBLIMAZE (PF)) injection 12.5 mcg dextrose 50 % in water (D50W) injection 25 mL glucagon HCL injection 1 mg DISCONTD: sodium zirconium cyclosilicate (LOKELMA) 10 gram packet 10 g DISCONTD: sodium bicarbonate 8.4 % (1 mEq/mL) injection 50 mEq sodium bicarbonate 150 mEq in D5W 1,000 mL IV infusion dextrose 50 % in water (D50W) injection 50 mL insulin regular human (HUMULIN R) injection 10 Units dextrose 10% (D10W) bolus infusion 125 mL insulin lispro (human) (HumaLOG U-100) injection 2 Units calcium gluconate 1 g in NaCl 50 mL (ISO-OSM) RTU IV infusion 1 g sodium zirconium cyclosilicate (LOKELMA) 10 gram packet 10 g NaCl 0.9% (NS) bolus infusion 500 mL DISCONTD: sodium bicarbonate 75 mEq in NaCl 0.45% (1/2NS) IV Solution sodium bicarbonate 75 mEq in NaCl 0.45% (1/2NS) IV Solution First Provider Eval: ED Events Date/Time Event User Comments 11/20/231107 Medical Screening Begins PABLO CHINCHILLA MD -- 11/20/231107 First Provider Evaluation PABLO CHINCHILLA MD -- AdmissionCare Guideline: Renal Failure (Acute) - INPT, Inpatient Based on the indications selected for the patient, the bed status of Inpatient was determined to be MET The following indications were selected as present at the time of evaluation of the patient: - Clinical Indications for Admission to Inpatient Care - Admission is indicated for 1 or more of the following: - Acute renal failure (stage 3 acute kidney injury), as indicated by 1 or more of the following: - Within past 7 days, rise in serum creatinine to at least 1.5 times its baseline value (increase of 50%) and serum creatinine is greater than 4 mg/dL (354 micromoles/L) AdmissionCare documentation entered by: Pablo Chinchilla [facility] [employer], 28 edition, Copyright ? 2023 [facility] [email or web address] All Rights Reserved. [id number]:00 ED COURSE Diagnosis/Impression as of 11/20/23 1701 Abdominal pain, unspecified abdominal location Hyperkalemia Obstructive uropathy NAOMY (acute kidney injury) Constipation, unspecified constipation type Anemia, unspecified type Atrial fibrillation with controlled ventricular rate Procedures: Procedures MDM: Medical Decision Making DDx incl UTI, sepsis, SBO, Colitis, appy, incarcerated hernia, PNA, ACS, dysrhythmia, et al Pt to be transferred d/t no beds at [facility] D/w pt and family to inform of going to [facility] Amount and/or Complexity of Data Reviewed Labs: ordered. Radiology: ordered. Discussion of management or test interpretation with external provider(s): D/w [facility] Admitting --> pt accepted for transfer Risk OTC drugs. Prescription drug management. Parenteral controlled substances. Flowsheet Documentation: Disposition/Condition: ED Disposition ED Disposition Transfer - [facility] to IP[facility]Obs Condition -- Comment -- Discharge Medications: Patient's Medications No medications on file Follow-up: Electronically signed by: Pablo Chinchilla MD 11/20/23 1701 [facility] EMERGENCY PHYSICIAN STAFF [facility] 2023-11-20 11:02:00 AdmissionCare Guideline: Renal Failure (Acute) - INPT, Inpatient Based on the indications selected for the patient, the bed status of Inpatient was determined to be MET The following indications were selected as present at the time of evaluation of the patient: - Clinical Indications for Admission to Inpatient Care - Admission is indicated for 1 or more of the following: - Acute renal failure (stage 3 acute kidney injury), as indicated by 1 or more of the following: - Within past 7 days, rise in serum creatinine to at least 1.5 times its baseline value (increase of 50%) and serum creatinine is greater than 4 mg/dL (354 micromoles/L) AdmissionCare documentation entered by: Pablo Chinchilla [facility], 28th edition, Copyright ? 2023 [facility] All Rights Reserved. [id number] [facility]
--- NOTE | 2023-12-02 14:25 | RAD REPORT ---
EXAM DESCRIPTION: CT - Head Brain Wo Cont - 12/02/2023 1:48 pm CLINICAL HISTORY: MENTAL STATUS CHANGE COMPARISON: No comparisons TECHNIQUE: Noncontrast head CT images were obtained without IV contrast. Multiplanar reformats were generated and reviewed. All CT scans are performed using dose optimization technique as appropriate and may include automated exposure control or mA/KV adjustment according to patient size. FINDINGS: No intracranial hemorrhage, mass, or edema. Midline structures are unremarkable. Normal ventricular caliber for age. Marvin-white matter differentiation is preserved, without evidence of acute infarct. No abnormal extra- axial fluid collections. Mastoid air cells and visualized portions of the paranasal sinuses are clear. No acute bony findings. IMPRESSION: No evidence of an acute intracranial process.
--- NOTE | 2023-12-02 14:32 | RAD REPORT ---
EXAM DESCRIPTION: RADChest Single View12/02/2023 1:18 pm CLINICAL HISTORY: ams COMPARISON: Chest Single View dated 06/30/2023 TECHNIQUE: Portable AP view of the chest. FINDINGS: The lungs are clear apart from mild left more than right basilar atelectasis, stable. No pneumothorax or effusion. The cardiomediastinal contours are unremarkable. IMPRESSION: No acute cardiopulmonary process.
[2023-12-02 14:47] LABS: Specific Gravity 1.025 (1.005-1.030); Sqamous Epithelial <5 /HPF (None Seen); Urine Bacteria None Seen /HPF (<20); Urine Bilirubin NEGATIVE (Negative); Urine Blood Trace (Negative); Urine Clarity Extremely Turbid (Clear); Urine Color Yellow (Yellow); Urine Culture Reflex Order REFLEXED; Urine Glucose NEGATIVE (Negative); Urine Ketones NEGATIVE (Negative); Urine Microscopic Reflex YN ORDER UMIC; Urine Mucus 2+ /HPF (None Seen); Urine Nitrite NEGATIVE (Negative); Urine Protein 3+ (Negative); Urine Urobilinogen 1+ (Normal); Urine WBC 20-50 /HPF (<5); Urine pH 6.5 (5.0-7.0)
[2023-12-02 16:01] LABS: Absolute Lymphocytes (CBC) 0.8 K/uL (0.7-4.9); Absolute Monocytes 0.6 K/uL (0.1-1.3); Absolute Neutrophil 12.3 K/uL (1.8-8.0); Basophils % 0.2 % (0-1.3); Hematocrit 26.8 % (36.0-45.0); Hemoglobin 8.4 g/dL (12.0-15.0); Lymphocytes % 5.7 % (15.3-44.8); MCH 23.4 pg (27.0-35.0); MCHC 31.5 g/dL (32.0-36.0); MCV 74.3 fL (80-100); MPV 6.9 fL (7.6-11.3); Monocytes % 4.2 % (3.3-12.3); Neutrophils % 89.9 % (41.7-73.7); Nucleated Red Blood Cells % 0.2 % (0-0); Platelets 768 thou/uL (152-406); Red Cell Distribution Width 23.7 % (12.1-15.2)
[2023-12-02 16:17] LABS: PT Prothrombin Time 20.3 SECONDS (9.4-12.5); PTT, Activated Partial Thromb 30.6 SECONDS (24.3-36.9); Protime INR 1.85
[2023-12-02 16:19] LABS: AST/SGOT 20 U/L (15-37); Albumin 1.8 g/dL (3.4-5.0); Albumin/Globulin Ratio 0.3 (1.1-1.8); Alkaline Phosphatase 134 U/L (45-117); Anion Gap 13.3 mEq/L (5.0-15.0); BUN Blood Urea Nitrogen 20 mg/dL (7-18); Bicarbonate 23 mEq/L (21-32); Bilirubin Total 0.5 mg/dL (0.2-1.0); Globulin 6.6 g/dL (2.3-3.5); Glomerular Filtration Rate 59 ml/min (=/>90); Glucose Level 132 mg/dL (74-106); Potassium 4.3 mEq/L (3.5-5.1); Protein, Total 8.4 g/dL (6.4-8.2); Sodium Level 133 mEq/L (136-145); Troponin High Sensitivity 55.6 pg/mL (<58.9)
[2023-12-02 16:23] LABS: ALT/SGPT < 14 U/L (13-56)
--- NOTE | 2023-12-02 17:27 | ER ---
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 Coronavirus screen: Vaccine status: Patient reports receiving the 2nd dose of the covid vaccine. Ebola Screen: No symptoms or risks identified at this time. Initial Sepsis Screen: Does the patient meet any 2 criteria? No. Patient's initial sepsis screen is negative. Does the patient have a suspected source of infection? No. Patient's initial sepsis screen is negative. Risk Assessment: Do you want to hurt yourself or someone else? Patient reports no desire to harm self or others. Onset of symptoms was December 02, 2023. 12:18 Method Of Arrival: EMS: [facility] ph 12:18 Acuity: [place] 2 ph Historical: - Allergies: 12:23 No Known Allergies; ph - PMHx: 12/02 00:30 prolapsed urethra; Atrial fibrillation; Hypertensive disorder; bowel incontinence; al5 - PSHx: 00:30 section; tubal ligation; al5 - Immunization history:: Adult Immunizations unknown. - Infectious Disease History:: Denies. - Social history:: Smoking status: Patient denies any tobacco usage or history of. Screenin/07 12:45 [facility] ED Fall Risk Assessment (Adult) History of falling in the last 3 months, ar6 including since admission Yes- physiologic fall (2 pts). [facility] ED Fall Risk Assessment (Adult) Confusion or Disorientation Yes (5 pts) Intoxicated or Sedated No (0 pts) Impaired Gait Yes (1 pt) Mobility Assist Device Used Yes (1 pt) Altered Elimination Yes (1 pt) Score/Fall Risk Level 3 or more points = High Risk Oriented to surroundings, Maintained a safe environment, Educated pt \\T\\ family on fall prevention, incl call for assistance when getting out of bed, Hourly rounding (assess needs \\T\\ fall precautionary measures) done. Abuse screen: Denies threats or abuse. Denies injuries from another. Nutritional screening: No deficits noted. Tuberculosis screening: No symptoms or risk factors identified. Assessment: 12:45 General: Appears in no apparent distress. Behavior is calm, Smells of body odor. Pain: ar6 Denies pain. Pain: Denies pain. Complains of pain in left foot. Neuro: Level of Consciousness is awake, alert, obeys commands, Oriented to person, place. Cardiovascular: Capillary refill < 3 seconds. Respiratory: Airway is patent. GI: Abdomen is round non-distended, Bowel sounds present X 4 quads. : Ness in place cloudy urine. EENT: Oral mucosa is moist. Derm: Skin is intact, bruise Skin is dry, Skin is pink, warm \\T\\ dry. Musculoskeletal: Reports discomfort left heel. 14:19 Reassessment: pt. refused blood work (labs); IV; and ness cath change; JULIANA Joy ar6 notified. 15:30 Reassessment: refused further IV sticks. JULIANA Verdugo informed. . ll1 19:28 General: Appears in no apparent distress. Behavior is calm. General: Smells of odorous. al5 Neuro: Level of Consciousness is awake, alert, obeys commands, Oriented to person, place. Cardiovascular: Capillary refill < 3 seconds. Cardiovascular: Patient's skin is warm and dry. Respiratory: Airway is patent Respiratory effort is even, unlabored, Respiratory pattern is regular, symmetrical. GI: No signs and/or symptoms were reported involving the gastrointestinal system. : Ness in place to gravity drainage clamped. EENT: No signs and/or symptoms were reported regarding the EENT system. Derm: Skin is intact, Skin is pink, warm \\T\\ dry. 22:20 Reassessment: Patient appears in no apparent distress at this time. No changes from al5 previously documented assessment. Patient and/or family updated on plan of care and expected duration. Pain level reassessed. Patient is alert, oriented x 3, equal unlabored respirations, skin warm/dry/pink. 12/02 00:25 Reassessment: report given to LUC Traore at [facility]. al5 00:28 Reassessment: Patient appears in no apparent distress at this time. No changes from al5 previously documented assessment. Patient and/or family updated on plan of care and expected duration. Pain level reassessed. Patient is alert, oriented x 3, equal unlabored respirations, skin warm/dry/pink. family updated on plan of care and that report has been given to the other nurse at [facility]. Vital Signs: 12/01 12:18 BP 132 / 89; Pulse 103; Resp 18; Temp 98.2; Pulse Ox 99% on R/A; Weight 165.56 kg; ph Height 5 ft. 8 in. ; 12:45 BP 149 / 79; Pulse 92; Resp 18; Temp 97.8; Pulse Ox 100% on R/A; Weight 167.38 kg; ar6 Height 5 ft. 8 in. ; Pain 9/10; 13:32 BP 144 / 76; Pulse 88; Resp 18; Pulse Ox 97% on R/A; ar6 15:28 BP 146 / 79; Pulse 87; Resp 18; Pulse Ox 97% on R/A; ar6 17:51 BP 152 / 76; Pulse 101; Resp 20; Pulse Ox 96% on R/A; ar6 19:29 BP 139 / 64; Pulse 107; Resp 16; Pulse Ox 97% on R/A; al5 20:00 BP 121 / 62; Pulse 90; Resp 21; Pulse Ox 96% on R/A; al5 22:00 BP 142 / 62; Pulse 96; Resp 23; Pulse Ox 97% on R/A; al5 23:00 BP 126 / 71; Pulse 88; Resp 20; Pulse Ox 96% on R/A; al5 12/02 00:00 BP 132 / 68; Pulse 102; Resp 22; Pulse Ox 98% on R/A; al5 12/01 12:45 Body Mass Index 56.11 (167.38 kg, 172.72 cm) ar6 12:45 Pain Scale: Adult ar6 12/01 12:45 pt. reports left heel pain; pt. reports, "I'm hurting all over" ar6 ED Course: 12:09 Patient arrived in ED. eb 12:13 Humberto Rios MD is Attending Physician. janel 12:14 Humberto Fenton PA is PHCP. cp 12:21 Triage completed. ph 12:23 Arm band placed on Patient placed in an exam room. ph 12:42 Tatianna Bates, RN is Primary Nurse. ar6 12:45 No apparent distress. Awaiting lab results, Awaiting radiology results. Awaiting CT ar6 Scan. 12:45 Patient has correct armband on for positive identification. Bed in low position. Call ar6 light in reach. Side rails up X2. Provided Education on: plan of care. Client placed on continuous cardiac and pulse oximetry monitoring. NIBP monitoring applied. Door closed. Noise minimized. Lights dimmed. Warm blanket given. Head of bed elevated. 13:20 Chest Single View XRAY In Process Unspecified. EDMS 13:50 CT Head Brain wo Cont In Process Unspecified. EDMS 14:49 Urinalysis w/ reflexes Sent. ar6 15:25 Notified Nurse Practitioner and/or Physician Radio Program Director of ness changed; JULIANA Joy.ar6 15:25 Ness cath inserted, using sterile technique, 16 Fr., by me, balloon inflated, to ar6 gravity drainage, urine specimen collected. other pericare provided; brief changed; linens changed; pt. had dried stool. 16:24 Notified Nurse Practitioner and/or Physician Radio Program Director of a critical lab result(s), ll1 lactate 2.7. 17:24 Preeti Mesa MD is Hospitalizing Provider. cp 17:45 PHCP role handed off by Humberto Fenton, PA sb4 17:45 Zuleyka Montana PA-C is PHCP. sb4 18:15 Inserted saline lock: 20 gauge in right wrist, using aseptic technique. Flushed with 10 hb mL NS. 18:15 Inserted saline lock: 20 gauge in right forearm, using aseptic technique. Flushed with hb 10 mL NS. 18:29 No provider procedures requiring assistance completed. Inserted saline lock: 20 gauge ar6 in right forearm, using aseptic technique. Blood collected. Flushed with 10 mL NS. 18:30 Inserted saline lock: 20 gauge in right hand, using aseptic technique. ar6 19:27 Petra Kearns, RN is Primary Nurse. al5 19:28 Patient admitted, IV remains in place. al5 20:52 CT Abd/Pelvis - IV Contrast Only In Process Unspecified. EDMS 12/02 00:08 [id number] called [facility] for transfer talked to Will. 2313 Dr. Jr Saravia accepted pt. 2313 sp Admin approval by Khanh Marroquin. To [place] [facility] report number [phone]. fax number [phone]. 0008 called [facility] for transfer talked to Melissa. Administered Medications: 12/01 18:29 Not Given (Patient Refused): fentanyl (pf)50 mcg IVP once ar6 18:29 Drug: NS 0.9% IV 1000 ml IV at 1 bolus Per protocol; 1000 mL bolus Route: IV; Rate: 1 ar6 bolus; Site: right hand; 19:30 Follow up: Response: No adverse reaction; IV Status: Completed infusion; IV Intake: al5 1000ml 18:29 Drug: Rocephin IV 2 grams IV at calculated rate once; Given slow IV push per pharmacy ar6 instructions Route: IV; Rate: calculated rate; Site: right hand; 19:31 Follow up: Response: No adverse reaction; No adverse reaction; done prior to this nurse al5 arrival 19:31 Follow up: IV Status: Completed infusion al5 19:46 Drug: morphine IVP or IV 4 mg IVP once over 4 mins Route: IVP; Infused Over: 4 mins; al5 Site: right forearm; 12/02 00:19 Follow up: Response: No adverse reaction; Pain is decreased al5 12/01 19:46 Drug: Ondansetron IVP 4 mg IVP once; over 2 minutes Route: IVP; Site: right forearm; al5 12/02 00:19 Follow up: Response: No adverse reaction; Nausea is decreased al5 12/01 22:14 Drug: metroNIDAZOLE IVPB 500 mg 100 ml IVPB at 200 ml/hr once over 30 mins Volume: 100 al5 ml; Route: IVPB; Rate: 200 ml/hr; Infused Over: 30 mins; Site: right forearm; 12/02 00:18 Follow up: Response: No adverse reaction; IV Status: Completed infusion; IV Intake: al5 100ml 12/01 23:44 Drug: NS 0.9% IV 1000 ml IV at 125 ml/hr continuous Route: IV; Rate: 125 ml/hr; Site: jj7 right hand; 12/02 01:36 Follow up: Response: No adverse reaction; Medication Administered at Departure; IV al5 Status: Infusion continued upon transfer Medication: 12/01 12:45 VIS not applicable for this client. ar6 Intake: 19:30 IV: 1000ml; Total: 1000ml. al5 12/02 00:18 IV: 100ml; Total: 1100ml. al5 Outcome: 12/01 17:27 Decision to Hospitalize by Provider. cp 21:07 ER care complete, transfer ordered by . sb4 12/02 00:30 Transferred by ground EMS to [facility], Transfer form al5 completed. 00:30 Condition: stable al5 00:30 Instructed on the need for transfer, 01:36 Patient left the ED. al5 Signatures: Dispatcher [employer] EDMS Humberto Rios MD MD cha Pinkerton, Shawna sp Hall, Patricia, RN RN Humberto Owens, PA Concha Thomas cp, RN RN Stephanie Barry Lynsay RN RN ll1 Enrique Pang RN RN Zuleyka Menezes, PA-C PA-C sb4 Petra Kearns RN RN al5 Tatianna Bates RN RN ar6 Corrections: (The following items were deleted from the chart) 12/01 13:32 12:45 Neuro: Level of Consciousness is awake, alert, Oriented to person, place, ar6 ar6
--- NOTE | 2023-12-02 17:27 | EDPHYS ---
Physician Documentation [facility] Name: Gwendolyn Mercado Age: 73 yrs Sex: Female : 1950 Arrival Date: 12/02/2023 Time: 11:48 Bed 4 Private MD: ED Physician Humberto Rios HPI: 12/01 12:14 This 73 yrs old Female presents to ER via Unassigned with complaints of Altered Mental cp Status. 12:14 The patient presents with confusion. cp 22:07 Patient presents via EMS with and daughter with altered mental status, sb4 confusion, and abdominal pain. Daughter states that she has been very weak and confused over the past couple of weeks. She was initially taken [facility] and diagnosed with a urethral prolapse, UTI and constipation. She was discharged with a Ness catheter, antibiotics, and stool softeners. Daughter states that her mentation never really improved and that she would not allow her to help clean her so daughter believes that her feces have been getting in and around her Ness catheter. Historical: - Allergies: 12:23 No Known Allergies; ph - PMHx: 12/02 00:30 prolapsed urethra; Atrial fibrillation; Hypertensive disorder; bowel incontinence; al5 - PSHx: 00:30 section; tubal ligation; al5 - Immunization history:: Adult Immunizations unknown. - Infectious Disease History:: Denies. - Social history:: Smoking status: Patient denies any tobacco usage or history of. ROS: 12/01 12:20 Constitutional: Negative for fever, poor PO intake, cp 12:20 Cardiovascular: Negative for chest pain, palpitations, cp 12:20 Abdomen/GI: Positive for diarrhea, Negative for vomiting, constipation, 12:20 Neuro: Positive for altered mental status, Exam: 12:25 Constitutional: The patient appears in no acute distress, alert, awake, cp non-diaphoretic, non-toxic, well developed, well nourished, morbid obesity 12:25 Head/Face: Normocephalic, atraumatic. cp 12:25 Eyes: Periorbital structures: appear normal, Conjunctiva: normal, no exudate, no injection, Sclera: no appreciated abnormality, Lids and lashes: appear normal, bilaterally, 12:25 ENT: External ear(s): are unremarkable, Nose: is normal, Mouth: Lips: moist, Oral mucosa: pink and intact, moist, Posterior pharynx: Airway: no evidence of obstruction, patent, 12:25 Chest/axilla: Inspection: normal, 12:25 Cardiovascular: Rate: tachycardic, Rhythm: regular, JVD: is not appreciated, 12:25 Respiratory: the patient does not display signs of respiratory distress, Respirations: normal, no use of accessory muscles, no retractions, labored breathing, is not present, Breath sounds: are clear throughout, no decreased breath sounds, no stridor, no wheezing, 12:25 Neuro: Orientation: to person, place, situation, Mentation: able to follow commands, 22:22 Abdomen/GI: Inspection: abdomen appears normal, obese Bowel sounds: normal, Palpation: sb4 severe abdominal tenderness, in the right upper quadrant, left upper quadrant, right lower quadrant and left lower quadrant, 22:22 : a ness is noted, sb4 Vital Signs: 12:18 BP 132 / 89; Pulse 103; Resp 18; Temp 98.2; Pulse Ox 99% on R/A; Weight 165.56 kg; ph Height 5 ft. 8 in. ; 12:45 BP 149 / 79; Pulse 92; Resp 18; Temp 97.8; Pulse Ox 100% on R/A; Weight 167.38 kg; ar6 Height 5 ft. 8 in. ; Pain 9/10; 13:32 BP 144 / 76; Pulse 88; Resp 18; Pulse Ox 97% on R/A; ar6 15:28 BP 146 / 79; Pulse 87; Resp 18; Pulse Ox 97% on R/A; ar6 17:51 BP 152 / 76; Pulse 101; Resp 20; Pulse Ox 96% on R/A; ar6 19:29 BP 139 / 64; Pulse 107; Resp 16; Pulse Ox 97% on R/A; al5 20:00 BP 121 / 62; Pulse 90; Resp 21; Pulse Ox 96% on R/A; al5 22:00 BP 142 / 62; Pulse 96; Resp 23; Pulse Ox 97% on R/A; al5 23:00 BP 126 / 71; Pulse 88; Resp 20; Pulse Ox 96% on R/A; al5 0908 00:00 BP 132 / 68; Pulse 102; Resp 22; Pulse Ox 98% on R/A; al5 09/07 12:45 Body Mass Index 56.11 (167.38 kg, 172.72 cm) ar6 12:45 Pain Scale: Adult ar6 12/01 12:45 pt. reports left heel pain; pt. reports, "I'm hurting all over" ar6 MDM: 12:13 Patient medically screened. [facility] 18:03 Data reviewed: vital signs, nurses notes, lab test result(s), EKG, radiologic studies, sb4 and as a result, I will admit patient. 23:53 Management of patient was discussed with the following: Pocketed Spring Assembler: Dr. Sosa, sb4 general surgery, reviewed CT and lab work, assessed patient and recommended transfer for higher level of care and additional urologic consultation. Historians other than the Patient: Daughter/Son: daughter. Counseling: I had a detailed discussion with the patient and/or guardian regarding the historical points, exam findings, and any diagnostic results supporting the discharge/admit diagnosis, the presence of at least one elevated blood pressure reading (>120/80) during this emergency department visit, lab results, radiology results, the need to transfer to another facility, for higher level of care, [facility] does not immediately have the required specialist. 12/01 12:16 Order name: Blood Culture Adult (2) 12/01 12:16 Order name: CBC with Diff; Complete Time: 18:07 12/01 17:03 Interpretation: Normal except: WBC 13.70; RBC 3.60; HGB 8.4; HCT 26.8; MCV 74.3; MCH cp 23.4; MCHC 31.5; PLT 768; RDW 23.7; MPV 6.9; CAROLINE% 89.9; LYM% 5.7; NEUT A 12.3. 12/01 12:16 Order name: CMP; Complete Time: 17:02 12/01 17:02 Interpretation: Normal except: NA 133; GLUC 132; BUN 20; GFR 59; ALK 134; CA 10.4; TP cp 8.4; ALB 1.8; GLOB 6.6; A/G 0.3. 12/01 12:16 Order name: Lactate w/ 2H reflex if indic.; Complete Time: 17:02 12/01 17:03 Interpretation: Abnormal: LAC 2.7. 12/01 12:16 Order name: Protime (+inr); Complete Time: 17:02 12/01 12:16 Order name: Ptt, Activated; Complete Time: 17:02 12/01 12:16 Order name: Urinalysis w/ reflexes; Complete Time: 17:02 12/01 17:09 Interpretation: Normal except: UCLA Extremely Turbid; UBLD Trace; UPROT 3+; UUROB 1+; cp UESTR 250; UWBC 20-50; URBC 5-10. 12/01 12:16 Order name: Troponin HS; Complete Time: 17:02 12/01 14:51 Order name: Urine Culture EDMS 12/01 18:06 Order name: CBC Smear Scan; Complete Time: 18:07 EDAL 12/01 18:25 Order name: Ghost Lactate-NO COLLECT Timer; Complete Time: 18:26 EDMS 12/01 18:26 Order name: Lactate w/ 2H reflex if indic.; Complete Time: 20:27 sb4 12/01 12:16 Order name: Chest Single View XRAY; Complete Time: 17:02 12/01 12:16 Order name: CT Head Brain wo Cont; Complete Time: 17:02 12/01 17:36 Order name: CT Abd/Pelvis - IV Contrast Only; Complete Time: 21:10 12/01 12:16 Order name: EKG; Complete Time: 12:16 12/01 12:16 Order name: Accucheck; Complete Time: 12:44 12/01 12:16 Order name: Cardiac monitoring; Complete Time: 12:59 12/01 12:16 Order name: Cath; Complete Time: 19:31 12/01 12:16 Order name: EKG - Nurse/Tech; Complete Time: 12:17 12/01 12:16 Order name: IV Saline Lock - Large Bore; Complete Time: 12:59 12/01 12:16 Order name: Labs collected and sent; Complete Time: 12:59 12/01 12:16 Order name: O2 Per Protocol; Complete Time: 12:17 12/01 12:16 Order name: O2 Sat Monitoring; Complete Time: 12:17 12/01 12:16 Order name: Vital Signs; Complete Time: 12:17 12/01 21:00 Order name: NPO; Complete Time: 22:07 sb4 EC:28 Rate is 100 beats/min. Rhythm is irregularly irregular, A fib. QRS interval is normal sb4 at 88 msec. QT interval is normal at 304 msec. No Q waves. Clinical impression: Atrial Fibrillation. Interpreted by me. Reviewed by me. Administered Medications: 18:29 Not Given (Patient Refused): fentanyl (pf)50 mcg IVP once ar6 18:29 Drug: NS 0.9% IV 1000 ml IV at 1 bolus Per protocol; 1000 mL bolus Route: IV; Rate: 1 ar6 bolus; Site: right hand; 19:30 Follow up: Response: No adverse reaction; IV Status: Completed infusion; IV Intake: al5 1000ml 18:29 Drug: Rocephin IV 2 grams IV at calculated rate once; Given slow IV push per pharmacy ar6 instructions Route: IV; Rate: calculated rate; Site: right hand; 19:31 Follow up: Response: No adverse reaction; No adverse reaction; done prior to this nurse al5 arrival 19:31 Follow up: IV Status: Completed infusion al5 19:46 Drug: morphine IVP or IV 4 mg IVP once over 4 mins Route: IVP; Infused Over: 4 mins; al5 Site: right forearm; 12/02 00:19 Follow up: Response: No adverse reaction; Pain is decreased al5 12/01 19:46 Drug: Ondansetron IVP 4 mg IVP once; over 2 minutes Route: IVP; Site: right forearm; al5 12/02 00:19 Follow up: Response: No adverse reaction; Nausea is decreased al5 12/01 22:14 Drug: metroNIDAZOLE IVPB 500 mg 100 ml IVPB at 200 ml/hr once over 30 mins Volume: 100 al5 ml; Route: IVPB; Rate: 200 ml/hr; Infused Over: 30 mins; Site: right forearm; 12/02 00:18 Follow up: Response: No adverse reaction; IV Status: Completed infusion; IV Intake: al5 100ml 12/01 23:44 Drug: NS 0.9% IV 1000 ml IV at 125 ml/hr continuous Route: IV; Rate: 125 ml/hr; Site: j right hand; 12/02 01:36 Follow up: Response: No adverse reaction; Medication Administered at Departure; IV al5 Status: Infusion continued upon transfer Disposition: 12/01 18:03 Chart complete. 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 Signatures: Dispatcher [employer] EDMS Humberto Rios MD MD cha Hall, Patricia, RN RN ph Humberto Fenton, Enrique Lovelace cp RN RN jj7 Zuleyka Montana PA-C PA-C sb4 Petra Kearns RN RN al5 Tatianna Bates, RN RN ar6 Corrections: (The following items were deleted from the chart) 12/01 21:01 17:27 Inpatient Admission cp sb4 21:01 17:27 Preeti Mesa cp sb4 21:01 17:27 Telemetry/MedSurg (Inpatient) cp sb4 21:01 17:27 Stable cp sb4 21:01 17:27 new cp sb4 21:01 17:27 have improved cp sb4 21:01 17:27 Standard cp sb4 21:01 17:27 cp sb4 21:01 17:27 UTI/ Urinary tract infection, site not specified cp sb4 21:01 17:27 Severe sepsis without septic shock cp sb4 21:12 21:07 surgery sb4 sb4 22:00 21:12 surgery sb4 sb4 22:00 22:00 surgery sb4 sb4 22:22 12:25 Abdomen/GI: Inspection: obese Palpation: soft, in all quadrants, moderate sb4 abdominal tenderness, in the right lower quadrant and left lower quadrant, rebound tenderness, is not appreciated, involuntary guarding, is not appreciated, cp 12/02 01:36 12/01 22:00 surgery sb4 al5
[2023-12-02 18:05] LABS: Platelet Estimate INCR; White Blood Cell Scan OK (OK)
[2023-12-02 18:06] LABS: Anisocytosis 1+; Blood Morphology Comment NOTED (NOT SEEN); Poikilocytosis 1+
[2023-12-02] MEDS ORDERED: CEFTRIAXONE 2000 MG/VIAL ONE (18:20)
[2023-12-02] MEDS ORDERED: NA CHLORIDE 0.9% 1,000 ML ONE ×2 (18:20→23:39)
[2023-12-02] MEDS ORDERED: MORPHINE 4 MG/ML SYR ONE (19:40)
[2023-12-02] MEDS ORDERED: ONDANSETRON 4 MG/2 ML VIAL ONE (19:40)
--- NOTE | 2023-12-02 21:09 | RAD REPORT ---
EXAM DESCRIPTION: CT - Abdomen Pelvis W Contrast - 12/02/2023 8:50 pm CLINICAL HISTORY: ABD PAIN COMPARISON: No comparisons TECHNIQUE: Thin cut axial CT imaging of the abdomen and pelvis was performed following intravenous a dministration of iodinated contrast. Multiplanar reformats were generated and reviewed. All CT scans are performed using dose optimization technique as appropriate and may include automated exposure control or mA/KV adjustment according to patient size. FINDINGS: No suspicious findings in the lung bases. The liver, spleen, adrenal glands, and pancreas show no suspicious findings. Gallbladder shows a larg e cholesterol containing stone near the fundus measuring up to 6 cm. Symmetric renal function is seen with no radiopaque calculi or suspicious renal mass. Mild hydronephr osis and hydroureter bilaterally. Large stool burden along the distal sigmoid and rectum with diffuse wall thickening. Extraluminal ill -defined crescentic collections of gas and fluid anterior to the rectum and distal sigmoid and ill-de fined regions of poorly loculated fluid and gas extending anteriorly with some free air layering anti dependently in the central abdomen. The largest crescentic collection present anterior to the upper rectum on the right measures 10.4 x 3.8 cm in greatest axial dimensions. The urinary bladder appears collapsed with Cote catheter balloon seen inferiorly, with wall thickening and locules of gas near t he dome, unclear whether these are within the lumen or along the wall, concerning for colorectal fist stephon formation. No free air, free fluid or inflammatory stranding. Left paraumbilical hernia containing a segment of nondistended transverse colon. No suspicious mass or bulky lymphadenopathy. 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 No suspicious bony findings. IMPRESSION: Large stool burden along the distal sigmoid and rectum, with diffuse wall thickening sug gesting stercoral colitis/proctitis. Perforation presumably along the anterior rectal wall, with partially contained gas as well as free a ir extending anteriorly and superiorly in the abdomen. Collapsed urinary bladder, with wall thickening and locules of gas near the dome, unclear whether the se are within the lumen along the wall, concerning for colorectal fistula formation. Mild hydronephrosis and hydroureter bilaterally. 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 Other incidental findings as above. The findings were communicated to Zuleyka Montana on 12/02/2023 at 21:00 hours.
[2023-12-02] MEDS ORDERED: METRONIDAZOLE 500mg IVPB 500 MG/100 ML BAG IV ONE (22:10)
[2023-12-03 02:15] VITALS: TEMP 97.8
[2023-12-03 02:26] VITALS: BP 132/68; O2SAT 98
--- NOTE | 2023-12-04 17:04 | EKG ---
Test Date: 2023-12-02 Test Time: 12:17:50 [employer] Operator: PH MEASUREMENT RESULTS: Intervals: Rate: 100 LA: QRSD: 88 QT: 304 QTc: 392 [place]: P: LA: QRS: 18 T: -50 INTERPRETIVE STATEMENTS: Atrial fibrillation Low voltage QRS Nonspecific T wave abnormality Abnormal ECG No previous ECG available for comparison Electronically Signed On 12-04-23 17:00:12 CDT by Krishna Palencia
== END 2023-12-03 01:36 | disposition short-term general hospital (02) ==
LOC: ER 11:48
DX: K63.1 Perforation of intestine (nontraumatic) (principal); R65.20 Severe sepsis without septic shock; K63.2 Fistula of intestine; K52.9 Noninfective gastroenteritis and colitis, unspecified; N39.0 Urinary tract infection, site not specified; I48.91 Unspecified atrial fibrillation; R15.9 Full incontinence of feces
CPT/HCPCS: 93005; 87040; 87088; 85025; 81001; 87086; 36415; 85610; 83605 ×2; 85730; 84484; 80053; 70450; 74177; 71045; 51702; 99285; Q9967; J2405; J0696; J7030 ×2

== ENCOUNTER 2024-01-02 14:40 | Emergency (ER) | payer OTHER ==
--- OUTSIDE RECORDS SUMMARY | 2024-01-02 14:49 | XMS REPORT | Continuity of Care Document ---
Author Name Unknown Address [address] [facility] [address] [place] [address] [facility] Address [address] [facility] [address] [place] [address] Care Team Providers Care Water Quality Manager Name Role Phone Pcp, Patient Does Not Have A Primary Care Physic brant Raymond CALEL, Cinthya Anthony Attending Clinician Ivana Saravia MD, Jr Attending Clinician [phone] Gopi Alves MD Attending Clinician [phone] Wilton BROOKS, Kentrell Attending Clinician [phone] Deven BROOKS, Bashir Attending Clinician [phone] Sanya BROOKS, Taylor Attending Clinician [phone] Jeb BROOKS, Lopez Arcos Attending Clinician [phone] Ivan Rogers MD Attending Clinician Daisy Nelson RN Attending Clinician Unavailable ALEX SMITH Attending Clinician UnavailALEX Jolly Attending Clinician Pablo Richardson MD Attending Clinician [phone] Stefanie Johnson MD Attending Clinician [phone] Alex Smith MD Attending Clinician [phone] Manjit BROOKS, Jr Admitting Clinician [phone] STEFANIE JOHNSON Admitting Clinician Stefanie Gonzales MD Admitting Clinician [phone] Payers Payer Name Policy Type Policy Number Effective Date Expirati on Date Source Problems Condition Name Condition Details Condition Category Status Onset Date Resolution Date Last Treatment Date Treating Clinician Comments Source Colon perforatio n Colon perforatio n Disease Active 12-02 00:00: 00 [facility] Abdominal pain, unspecifie d abdominal location Abdominal pain, unspecifie d abdominal location Disease Active 11-19 00:00: 00 [facility] Allergies, Adverse Reactions, Alerts Allergy Name Allergy Type Status Severity Reaction(s) Onset Date Inactive Date Treating Clinician Comments Source NO KNOWN ALLERGIE S Drug Class Active [facility] Social History Social Habit Start Date Stop Date Quantity Comments Source History of tobacco use Cigarette Smoker [facility] Sexual orientation [facility] History of Social function 2023-12-04 00:00:00 2023-12-04 00:00:00 [facility] Cigarettes smoked current (pack per day) - Reported 2023-11-22 00:00:00 2023-11-22 00:00:00 [facility] Cigarette pack-years 2023-11-22 00:00:00 2023-11-22 00:00:00 [facility] Tobacco use and exposure 2023-11-22 00:00:00 2023-11-22 00:00:00 Smokeless tobacco non-user [facility] Sex assigned at 1950 00:00:00 1950 00:00:00 [facility] Smoking Status Start Date Stop Date Source Ex-smoker 2023-11-22 00:00:00 2023-11-22 00:00:00 [facility] Medications Ordered Medication Name Filled Medication Name Start Date Stop Date Current Medication? Ordering Clinician Indication Dosage Frequency Signature (SIG) Comments Components Source apixaban 5 mg tablet 2023-03 00:00: 00 03-02 05:59 :00 Yes 5mg Take 1 tablet by mouth in the morning and 1 tablet in the evening. Do all this for 60 days. Indication s: non valvular a fib [facility] docusate 100 mg capsule 2023-03 0 00:00: 01-29 05:59 :00 Yes [id number] 100mg Take 1 capsule by mouth in the morning for 30 days. [facility] acetaminoph en 500 mg tablet 2023-03 0-04 00:00: 00 Yes [id number] 1000mg Take 2 tablets by mouth every 8 (eight) hours. [facility] traMADoL 50 mg tablet 2023-03 0- 00:00: 00 Yes [id number] 50mg Take 1 tablet by mouth every 6 (six) hours as needed for Pain (scale 7-10) for up to 15 doses. Indication s: acute pain [facility] metoprolol tartrate 25 mg tablet 2023-03 0 00:00: 00 02-27 05:59 :00 Yes [id number] 25mg Take 1 tablet by mouth in the morning and 1 tablet in the evening. Do all this for 60 days. [facility] methocarbam oL 1,000 mg Tab 2023-03 0 00:00: 01-28 05:59 :00 Yes [id number] 1000mg Take 1,000 mg by mouth 3 (three) times daily as needed for Pain (scale 1-3) for up to 30 days. [facility] QUEtiapine 25 mg tablet 2023-03 0- 00:00: 00 01-28 05:59 :00 Yes [id number] 25mg Take 1 tablet by mouth at bedtime for 30 days. [facility] sodium hypochlorit e 0.25% solution 2023-03 0- 00:00: 00 01-28 05:59 :00 Yes [id number] Apply to area(s) every morning for 30 days. [facility] sucralfate 1 gram tablet 2023-03 0-04 00:00: 00 01-28 05:59 :00 Yes [id number] 1g Take 1 tablet by mouth before meals and at bedtime for 30 days. [facility] sodium chloride 0.65 % nasal spray 2023-03 0-04 00:00: 00 01-28 05:59 :00 Yes [id number] 1{spray } Use 1 [place] in each nostril in the morning and 1 [place] in the evening. Do all this for 30 days. [facility] apixaban 5 mg tablet 2023-03 0-04 00:00: 00 12-31 04:59 :00 Yes 10mg Take 2 tablets by mouth in the morning and 2 tablets in the evening. Do all this for 2 days. Indication s: non valvular a fib [facility] polyethylen e glycol 3350 powder 17 g 2023-03 0-03 14:00: 00 Yes 17g 17 g, Oral, DAILY, First dose (after last modificati on) on Mon12/28/23 at 0900, Until Discontinu ed, Routine [facility] docusate (COLACE) capsule 100 mg 2023-03 0 14:00: 00 Yes 100mg 100 mg, Oral, DAILY, First dose on Mon12/26/23 at 0900, Until Discontinu ed, Routine [facility] apixaban (ELIQUIS) tablet 10 mg 12-24 01:00: 00 12-31 00:59 :00 Yes 10mg [Order 1 Start] Name: apixaban (ELIQUIS) tablet 10 mg Signed Summary: 10 mg, Oral, BID, 14 doses, First dose on 12/24/23 at 1999, Last dose on 12/31/23 at 0800, Routine, Indication s: Non-Valvul ar Atrial Fibrillati on [Order 1 End] [Order 2 Start] Name: apixaban (ELIQUIS) tablet 5 mg Signed Summary: 5 mg, Oral, BID, First dose on 12/31/23 at 1999, Until Discontinu ed, Routine, Indication s: Non-Valvul ar Atrial Fibrillati on [Order 2 End] [facility] sodium chloride (OCEAN MIST NASAL) 0.65 % nasal spray 1 [place] 12-22 01:00: 00 01-05 00:59 :00 Yes 1{spray } 1 [place], Nasal, BID, 28 doses, First dose (after last reorder) on Mon12/22/23 at 1999, Last dose on Mon01/05/24 at 0800, Routine [facility] fluticasone propionate 50 mcg/actuati on nasal spray 1 [place] 12-22 01:00: 00 01-05 00:59 :00 Yes 1{spray } 1 [place], Nasal, BID, 28 doses, First dose (after last reorder) on Mon12/22/23 at 2000, Last dose on Mon01/05/24 at 0800, Routine [facility] sodium hypochlorit e 0.5% (DAKINS) solution 20 mL 12-21 21:00: 00 12-25 13:26 :37 No 20mL 20 mL, Topical, QID, First dose on Mon12/22/23 at 1600, Until Discontinu ed, Routine [facility] iopamidol (ISOVUE 370-500 mL) injection 120 mL 12-21 18:45: 00 12-21 18:45 :00 No [id number] 120mL 120 mL, Intravenou s, ONCE, 1 dose, On Mon12/22/23 at 1345, Routine [facility] potassium chloride in water (KCL) 20 mEq/100 mL IV infusion 20 mEq 12-19 21:00: 00 12-20 03:00 :00 No 20meq 20 mEq, IV Piggyback, at 50 mL/hr Administer over 2 Hours, Q2H, 2 doses, First dose on Mon12/20/23 at 1600, Last dose on Mon12/20/23 at 1800, Routine [facility] guaiFENesin 100 mg/5 mL solution 100 mg 12-19 05:07: 11 Yes 100mg 100 mg, Oral, Q8HPRN, Starting on Mon12/20/23 at 0007, Until Discontinu ed, Routine, Cough [facility] magnesium sulfate in water 2 gram/50 mL (4 %) infusion 2 g 12-17 13:15: 00 12-17 16:13 :00 No 2g 2 g, IV Piggyback, Administer over 60 Minutes, ONCE, 1 dose, On Mon12/18/23 at 0815, Routine [facility] piperacilli n-tazobacta m (ZOSYN) 3.375 g in NaCl 0.9% (NS) 100 mL MINI-BAG 12-16 16:46: 00 12-23 12:55 :32 No 3.375g 3.375 g, IV Piggyback, Q8H ABX, 60 doses, First dose (after last modificati on) on Mon12/17/23 at 1200, Last dose on Mon01/06/24 at 0400, Administer over 4 Hours, 100 mL, Reason for Anti-Infec tive: Documented Infection, Documented Infection Site: Abdominal, Duration of Therapy: 7 days [facility] magnesium oxide (MAG-OX 400) 40 mg/mL oral suspension 400 mg 12-16 14:00: 00 12-23 16:21 :07 No 400mg 400 mg, Oral, DAILY, First dose on Mon12/17/23 at 0900, Until Discontinu ed, Routine [facility] enoxaparin (LOVENOX) injection 120 mg 12-16 01:00: 00 12-23 16:09 :20 No .7mg/kg 120 mg (rounded from 119.07 mg = 0.7 mg/kg ?170.1 kg), Subcutaneo us, Q12H, First dose on Mon12/16/23 at 2000, Until Discontinu ed, Routine [facility] NaCl 0.9% (NS) injection 10 mL 12-15 18:05: 16 Yes 10mL 10 mL, Slow IV Push, PRN, Starting on Mon12/16/23 at 1305, Until Discontinu ed, Routine, line maintenanc e [facility] lidocaine 1% (PF) (XYLOCAINE) injection 5 mL 12-15 18:05: 15 Yes 5mL 5 mL, Subcutaneo us, PRN, 1 dose, Starting on Mon12/16/23 at 1305, Until Discontinu ed, Routine, Local anesthesia [facility] haloperidol lactate (HALDOL) injection 5 mg 12-14 22:54: 22 Yes 5mg 5 mg, Slow IV Push, Q6HPRN, Starting on Mon12/15/23 at 1754, Until Discontinu ed, Routine, prior to dressing changes [facility] magnesium sulfate in water 2 gram/50 mL (4 %) infusion 2 g 12-14 13:15: 00 12-14 20:45 :00 No 2g 2 g, IV Piggyback, Administer over 60 Minutes, ONCE, 1 dose, On Mon12/15/23 at 0815, Routine [facility] potassium chloride in water (KCL) 20 mEq/100 mL RTU IVPB 20 mEq 12-14 03:45: 00 12-14 07:44 :00 No 20meq 20 mEq, IV Piggyback, at 50 mL/hr Administer over 2 Hours, Q2H ES, 2 doses, First dose on Mon12/14/23 at 2245, Last dose on Mon12/15/23 at 0045, DIMAS [facility] loratadine (CLARITIN) tablet 10 mg 12-14 03:00: 00 12-21 18:25 :22 No 10mg 10 mg, Oral, DAILY, First dose on Mon12/14/23 at 2200, Until Discontinu ed, Routine [facility] metoprolol tartrate (LOPRESSOR) tablet 25 mg 12-13 01:00: 00 Yes 25mg 25 mg, Oral, BID, First dose (after last reorder) on Mon12/13/23 at 2000, Until Discontinu ed, Routine [facility] potassium chloride in water (KCL) 20 mEq/100 mL RTU IVPB 20 mEq 12-12 20:00: 00 12-13 00:42 :00 No 20meq 20 mEq, IV Piggyback, at 50 mL/hr Administer over 2 Hours, Q2H ES, 2 doses, First dose on Mon12/13/23 at 1500, Last dose on Mon12/13/23 at 1700, Routine [facility] haloperidol lactate (HALDOL) injection 5 mg 12-12 14:08: 54 12-14 22:54 :50 No 5mg 5 mg, Slow IV Push, Q6HPRN, Starting on Mon12/13/23 at 0908, Until Mon12/15/23 at 1754, Routine, Hyperactiv e agitation, pulling out IV lines [facility] potassium chloride in water (KCL) 20 mEq/100 mL RTU IVPB 20 mEq 12-12 12:47: 00 12-12 17:06 :01 No 20meq 20 mEq, IV Piggyback, at 50 mL/hr Administer over 2 Hours, Q2H ES, 2 doses, First dose on Mon12/13/23 at 0800, Last dose on Mon12/13/23 at 1000, DIMAS [facility] phytonadion e (VITAMIN K) 5 mg in NaCl 0.9% (NS) piggyback 12-12 09:00: 00 12-12 09:39 :00 No 5mg IV Piggyback, ONCE, 1 dose, On Mon12/13/23 at 0400, 50 mL [facility] QUEtiapine (SEROQUEL) tablet 25 mg 12-12 02:00: 00 Yes 25mg 25 mg, Oral, QHS, First dose on Mon12/12/23 at 2100, Until Discontinu ed, Routine [facility] furosemide (LASIX) injection 20 mg 12-12 01:00: 00 12-15 02:55 :14 No 20mg 20 mg, Slow IV Push, Q12H, First dose (after last modificati on) on Mon12/12/23 at 2000, Until Discontinu ed, DIMAS [facility] HEPARIN SODIUM (PORCINE) 1,000 UNIT/ML BOLUS ACS ORDER SET 12-10 16:15: 00 12-10 22:00 :00 No 4000U 4,000 Units, IV Push, ONCE, 1 dose, On Mon12/11/23 at 1115, DIMAS [facility] heparin 25,000 Units/250 mL (Premixed Bag) in 0.45 % NS 12-10 16:11: 05 12-15 21:32 :38 No 0U/h 0-3,200 Units/hr (0-32 mL/hr), IV Infusion, TITRATE, Parameters in Admin. Instr., Starting on Mon12/11/23 at 1111, Initiate dosing: -Patient 83 kg or under: 1,000 Units/hr (Calculate d dose at 12 units/kg/h r) -Patient over 83 k,000 units/hr DO NOT Exceed the MAXIMUM 1,000 units/hr for initiation of heparin drip. CAUTION - If LMWH given in ER, AVOID bolus and start next dose/drip 12 hrs after ER dosage. Must program rate using programmab le infusion pump. Check with the ordering provider first prior to any administra tion should the patient be on existing/a dditional anticoagul ant therapy. Range, Dosing and Testing - aPTT < 40: Bolus 3000 units, increase rate 100 units/hr. - aPTT 40-49: Increase rate 50 units/hr. - aPTT 50-70: NO CHANGE. - aPTT 71-85: Decrease rate 50 units/hr. - aPTT 86-100: Hold 30 minutes, decrease rate 100 units/hr. - aPTT 101-150: Hold 60 minutes, decrease rate 150 units/hr. - aPTT > 150: Hold 60 minutes, decrease rate 300 units/hr. Check aPTT 6 hours after initiation , then Q6H after every change, aPTT Q12H once therapeuti c levels are reached. DO NOT ADJUST INITIAL BOLUS OR INITIAL INFUSION RATE. [facility] heparin (1,000 unit/mL, 10 mL vial) for Rebolusing 12-10 16:10: 55 12-15 21:32 :38 No 3000U FOR REBOLUSING , Starting on Mon12/11/23 at 1110, Until 12/16/23 at 1632, Routine, Dosing based on aPPT testing parameters (refer to continuous heparin drip order). [facility] methocarbam oL (ROBAXIN) tablet 1,000 mg 12-10 14:52: 46 Yes 1000mg 1,000 mg, Oral, TIDPRN, Starting on Mon12/11/23 at 0952, Until Discontinu ed, Routine, Muscle Spasms [facility] metoprolol tartrate (LOPRESSOR) tablet 25 mg 12-10 14:45: 00 12-12 18:48 :53 No 25mg 25 mg, Oral, BID, First dose on Mon12/11/23 at 0945, Until Discontinu ed, Routine [facility] magnesium sulfate in water 2 gram/50 mL (4 %) infusion 2 g 12-10 12:00: 00 12-10 14:42 :00 No 2g 2 g, IV Piggyback, Administer over 60 Minutes, ONCE, 1 dose, On Mon12/11/23 at 0700, Routine [facility] potassium phosphate 30 mmol in NaCl 0.9% (NS) 250 mL piggyback 12-10 11:12: 00 12-10 17:20 :00 No 30mmol 30 mmol, IV Piggyback, ONCE, 1 dose, On Mon12/11/23 at 0615, 250 mL [facility] potassium chloride in water (KCL) 20 mEq/100 mL RTU IVPB 20 mEq 12-10 11:00: 00 12-10 15:42 :00 No 20meq 20 mEq, IV Piggyback, at 50 mL/hr Administer over 2 Hours, Q2H, 2 doses, First dose on Mon12/11/23 at 0600, Last dose on Mon12/11/23 at 0800, Routine [facility] furosemide (LASIX) injection 40 mg 12-09 14:15: 00 12-11 17:01 :40 No 40mg 40 mg, Slow IV Push, Q12H, First dose on Mon12/10/23 at 0915, Until Discontinu ed, DIMAS [facility] potassium chloride in water (KCL) 20 mEq/100 mL RTU IVPB 20 mEq 12-09 12:00: 00 12-09 13:50 :42 No 20meq 20 mEq, IV Piggyback, at 50 mL/hr Administer over 2 Hours, ONCE, 1 dose, On Mon12/10/23 at 0700, [facility] KCL (KLOR-CON M20) tablet 40 mEq 12-09 01:00: 00 12-19 19:14 :39 No 40meq 40 mEq, Oral, BID, First dose (after last modificati on) on [facility] 12/09/23 at 2000, Until Discontinu ed, DIMAS [facility] QUEtiapine (SEROQUEL) tablet 50 mg 12-09 01:00: 00 12-10 16:56 :22 No 50mg 50 mg, Oral, BID, First dose on 12/09/23 at 2000, Until Discontinu ed, Routine [facility] KCL (KLOR-CON M20) tablet 40 mEq 12-08 17:45: 00 12-08 17:09 :00 No 40meq 40 mEq, Oral, ONCE, 1 dose, On 12/09/23 at 1245, DIMAS [facility] sucralfate (CARAFATE) tablet 1 g 12-08 16:30: 00 Yes 1g 1 g, Oral, AC+HS, First dose on 12/09/23 at 1130, Until Discontinu ed, Routine [facility] fluticasone propionate 50 mcg/actuati on nasal spray 1 [place] 12-08 01:00: 00 12-22 00:59 :00 No 1{spray } 1 [place], Nasal, BID, 28 doses, First dose on Mon12/08/23 at 1999, Last dose on Mon12/22/23 at 0800, Routine [facility] sodium chloride (OCEAN MIST NASAL) 0.65 % nasal spray 1 [place] 12-08 01:00: 00 12-22 00:59 :00 No 1{spray } 1 [place], Nasal, BID, 28 doses, First dose on Mon12/08/23 at 1999, Last dose on Mon12/22/23 at 0800, Routine [facility] oxymetazoli ne (OXYMETAZOL INE HCL) 0.05 % nasal spray 1 [place] 12-08 01:00: 00 12-11 00:59 :00 No 1{spray } 1 [place], Nasal, BID, 6 doses, First dose on Mon12/08/23 at 1999, Last dose on Mon12/11/23 at 0800, Routine [facility] acetaminoph en (TYLENOL) tablet 1,000 mg 12-07 19:00: 00 Yes 1000mg 1,000 mg, Oral, Q8H, First dose on Mon12/08/23 at 1400, Until Discontinu ed, Routine [facility] methocarbam oL (ROBAXIN) tablet 1,000 mg 12-07 19:00: 00 12-10 14:31 :59 No 1000mg 1,000 mg, Oral, TID, First dose on Mon12/08/23 at 1400, Until Discontinu ed, Routine [facility] Potassium Bicarb-Citr ic Acid (EFFER-K) effervescen t tablet 40 mEq 12-07 17:00: 00 12-08 13:39 :42 No 40meq 40 mEq, Oral, BID, 6 doses, First dose on Mon12/08/23 at 1200, Last dose on Mon12/10/23 at 2000, Routine [facility] bismuth subsalicyla te (PEPTO BISMOL) chewable tablet 524 mg 12-07 16:28: 37 12-10 14:39 :38 No 524mg 524 mg, Oral, Q6HPRN, Starting on Mon12/08/23 at 1128, Until Mon12/11/23 at 0939, Routine, Indigestio n [facility] iopamidol (ISOVUE 370-500 mL) injection 80 mL 12-07 16:15: 00 12-07 16:10 :00 No [id number] 80mL 80 mL, Intravenou s, ONCE, 1 dose, On Mon12/08/23 at 1115, Routine [facility] pantoprazol e (PROTONIX) EC tablet 40 mg 12-07 15:45: 00 Yes 40mg 40 mg, Oral, DAILY, First dose on Mon12/08/23 at 1045, Until Discontinu ed, Routine [facility] furosemide (LASIX) injection 40 mg 12-07 12:54: 00 12-07 13:11 :00 No 40mg 40 mg, Slow IV Push, ONCE, 1 dose, On Mon12/08/23 at 0800, DIMAS [facility] potassium chloride in water (KCL) 20 mEq/100 mL RTU IVPB 20 mEq 12-07 11:00: 00 12-07 15:13 :41 No 20meq 20 mEq, IV Piggyback, at 50 mL/hr Administer over 2 Hours, Q2H, 2 doses, First dose on Mon12/08/23 at 0600, Last dose on Mon12/08/23 at 0800, Routine [facility] acetaminoph en (OFIRMEV) IV piggyback 1,000 mg 12-07 09:30: 00 12-07 08:58 :00 No 1000mg 1,000 mg, IV Piggyback, at 400 mL/hr Administer over 15 Minutes, ONCE, 1 dose, On Mon12/08/23 at 0430, Routine, Is the patient strict NPO and unable to tolerate oral medication s? Yes [facility] piperacilli n-tazobacta m (ZOSYN) 3.375 g in NaCl 0.9% (NS) 100 mL MINI-BAG 12-07 08:30: 00 12-16 16:46 :39 No 3.375g 3.375 g, IV Piggyback, Q8H ABX, 30 doses, First dose (after last modificati on) on Mon12/08/23 at 0330, Last dose on Mon12/17/23 at 1930, Administer over 4 Hours, 100 mL, Reason for Anti-Infec tive: Documented Infection, Documented Infection Site: Abdominal, Duration of Therapy: 7 days [facility] methocarbam oL (ROBAXIN) injection 1,000 mg 12-07 03:00: 00 12-07 13:43 :18 No 1000mg 1,000 mg, Slow IV Push, Q8H, First dose (after last reorder) on Mon12/07/23 at 2200, Until Discontinu ed, Administer over 3-5 Minutes [facility] Lidocaine (LIDOCARE) 4 % patch 1 Patch 12-07 01:30: 00 Yes 1{patch } 1 Patch, Topical, Administer over 12 Hours, DAILY, First dose on Mon24 at 2030, Until Discontinu ed, Routine [facility] acetaminoph en ([facility]) IV piggyback 1,000 mg 12-07 01:30: 00 12-07 02:40 :00 No 1000mg 1,000 mg, IV Piggyback, at 400 mL/hr Administer over 15 Minutes, ONCE, 1 dose, On Christie 12/07/23 at 2030, Routine, Is the patient strict NPO and unable to tolerate oral medication s? Yes [facility] HYDROmorpho ne (DILAUDID) injection 0.5 mg 12-07 01:27: 03 12-09 01:26 :03 No .5mg 0.5 mg, Intravenou s, Q4HPRN, Starting on Christie 12/07/23 at 2026, Until 12/09/23 at 2025, Routine, Pain (scale 7-10), Is this medication approved by a Faculty level provider? 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 Yes [facility] methocarbam oL (ROBAXIN) injection 1,000 mg 12-06 19:00: 00 12-06 19:03 :00 No 1000mg 1,000 mg, Slow IV Push, Q8H, 1 dose, First dose (after last modificati on) on [place] 12/07/23 at 1400, Administer over 3-5 Minutes [facility] potassium chloride 40 mEq in 100 mL IVPB 12-06 14:00: 00 12-06 18:10 :00 No 40meq 40 mEq, Intravenou s, ONCE, 1 dose, On [place] 12/07/23 at 0900, 100 mL [facility] acetaminoph en ([facility]) IV piggyback 1,000 mg 12-06 13:45: 00 12-06 13:41 :00 No 1000mg 1,000 mg, IV Piggyback, at 400 mL/hr Administer over 15 Minutes, ONCE, 1 dose, On [place] 12/07/23 at 0845, Routine, Is the patient strict NPO and unable to tolerate oral medication s? Yes [facility] acetaminoph en ([facility]) IV piggyback 1,000 mg 12-06 05:45: 00 12-06 06:07 :00 No 1000mg 1,000 mg, IV Piggyback, at 400 mL/hr Administer over 15 Minutes, ONCE, 1 dose, On Mon12/07/23 at 0045, Routine, Is the patient strict NPO and unable to tolerate oral medication s? Yes [facility] heparin 1,000 unit/mL injection 1,000 Units 12-06 05:45: 00 12-06 05:17 :00 No 1000U ONCE, 1 dose, On [place] 12/07/23 at 0045, Routine, For Priming of Ports: After initial saline flush, prime each port with heparin according to the priming volume listed on each catheter port for catheter lock. [facility] acetaminoph en ([facility]) IV piggyback 1,000 mg 12-06 02:30: 00 12-06 01:02 :00 No 1000mg 1,000 mg, IV Piggyback, at 400 mL/hr Administer over 15 Minutes, ONCE, 1 dose, On Mon12/06/23 at 2130, Routine, Is the patient strict NPO and unable to tolerate oral medication s? Yes [facility] acetaminoph en ([facility]) IV piggyback 1,000 mg 12-05 18:30: 00 12-05 17:59 :00 No 1000mg 1,000 mg, IV Piggyback, at 400 mL/hr Administer over 15 Minutes, ONCE, 1 dose, On Mon12/06/23 at 1330, Routine, Is the patient strict NPO and unable to tolerate oral medication s? Yes [facility] dexMEDEtomi dine 200 mcg in 0.9 % NaCl 50 mL (PRECEDEX) RTU IV infusion 12-05 16:11: 07 12-07 01:26 :57 No .2ug/kg /h 0.2-1.5 mcg/kg/hr ?170.1 kg (8.505-63. 7875 mL/hr, rounded to 8.51-63.79 mL/hr), IV Infusion, TITRATE, Sedation-R ASS score (0 to -1), Starting on Mon12/06/23 at 1111, Initiate infusion at 0.2 mcg/kg/hr and titrate by 0.1 mcg/kg/hr every 30 minutes to goal sedation score. Maximum dose = 1.5 mcg/kg/hr. If goal not maintained at maximum allowed dose, contact prescriber . [facility] glycerin/mi neral oil (AGLO ENEMA) (COMPOUNDED ) Enem 225 mL 12-05 14:45: 00 12-05 19:59 :00 No 225mL 225 mL, Rectal, ONCE, 1 dose, On Mon12/06/23 at 0945, Routine [facility] mineral oil (MINERAL OIL EXTRA HEAVY) oral liquid 30 mL 12-05 14:00: 00 Yes 30mL 30 mL, Oral, DAILY, First dose on Mon12/06/23 at 0900, Until Discontinu ed, Routine [facility] sodium hypochlorit e 0.25% (DAKIN'S SOLUTION) solution 12-05 14:00: 00 Yes Topical, QAM, First dose on Mon12/06/23 at 0900, Until Discontinu ed, Routine [facility] polyethylen e glycol 3350 powder 17 g 12-05 14:00: 00 12-25 13:28 :38 No 17g 17 g, Oral, DAILY, First dose on Mon12/06/23 at 0900, Until Discontinu ed, Routine [facility] lactated ringers IV infusion 1,000 mL 12-05 14:00: 00 12-12 21:44 :11 No 1000mL at 42 mL/hr, 1,000 mL, IV Infusion, CONTINUOUS , Starting on Mon12/06/23 at 0900, Until Mon12/13/23 at 1644, Routine [facility] furosemide (LASIX) injection 80 mg 12-05 12:00: 00 12-05 11:30 :00 No 80mg 80 mg, Slow IV Push, ONCE, 1 dose, On Mon12/06/23 at 0700, Routine [facility] acetaminoph en (OFIRM) IV piggyback 1,000 mg 12-05 10:30: 00 12-05 10:51 :00 No 1000mg 1,000 mg, IV Piggyback, at 400 mL/hr Administer over 15 Minutes, ONCE, 1 dose, On Mon12/06/23 at 0530, Routine, Is the patient strict NPO and unable to tolerate oral medication s? Yes [facility] chlorhexidi ne (PERIDEX) 0.12 % mouthwash 15 mL 12-05 01:00: 00 Yes 15mL 15 mL, Oral (Swish And Spit Out), BID, First dose on Mon12/05/23 at 2000, Until Discontinu ed, Routine [facility] lactated ringers IV infusion 1,000 mL 12-04 16:45: 00 12-05 13:55 :24 No 1000mL at 100 mL/hr, 1,000 mL, IV Infusion, CONTINUOUS , Starting on Mon12/05/23 at 1145, Until Mon12/06/23 at 0855, Routine [facility] acetaminoph en (OFIRMEV) IV piggyback 1,000 mg 12-04 15:45: 00 12-04 15:26 :00 No 1000mg 1,000 mg, IV Piggyback, at 400 mL/hr Administer over 15 Minutes, ONCE, 1 dose, On Mon12/05/23 at 1045, Routine, Is the patient strict NPO and unable to tolerate oral medication s? Yes [facility] heparin (porcine) injection 5,000 Units 12-04 13:00: 00 12-10 16:12 :08 No 5000U 5,000 Units, Subcutaneo us, Q8H, First dose on Mon12/05/23 at 0800, Until Discontinu ed, Routine [facility] NORepinephr ine (LEVOPHED) 4 mg/250 mL in 0.9% NaCl infusion 12-04 10:19: 27 12-05 10:18 :27 No .05ug/k g/min 0.05-0.5 mcg/kg/min ?170.1 kg (31.8938-3 18.9375 mL/hr, rounded to 31.89-318. 94 mL/hr), IV Infusion, TITRATE, MAP Goal > or = 65 mmHg, Starting on Mon12/05/23 at 0519, For 24 hours, Initiate titration at 0.05 mcg/kg/min . Increase by 0.01 mcg/kg/min every 30 seconds to 5 minutes as needed to reach and maintain goal blood pressure. Maximum dose = 0.5 mcg/kg/min . If goal not maintained at maximum allowed dose, contact prescriber . Administer only one peripheral intravenou s vasopresso r at a time. 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 Yes [facility] methocarbam oL (ROBAXIN) injection 1,000 mg 12-04 03:00: 00 12-06 15:31 :36 No 1000mg 1,000 mg, Slow IV Push, Q8H, First dose on Mon12/04/23 at 2200, Until Discontinu ed, Administer over 3-5 Minutes [facility] FENTanyl (PF) (SUBLIMAZE) injection 50 mcg 12-04 01:30: 00 12-04 00:30 :00 No 50ug 50 mcg, Slow IV Push, ONCE, 1 dose, On Mon12/04/23 at 2030, Routine [facility] albumin (ALBUMINAR 25%) 25 % injection 25 g 12-04 00:30: 00 12-04 01:30 :00 No 25g 25 g, IV Infusion, ONCE, 1 dose, On Mon12/04/23 at 1930, 100 mL, Indication : NEPHROTIC SYNDROME (ACUTE, SEVERE PERIPHERAL OR PULMONARY EDEMA), Comments: Short-term use of albumin in combinatio n with diuretic therapy when: serum albumin <2 g/dL and optimal diuretic therapy alone has failed, 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 Yes [facility] sulfur hexafluorid e microsphr (LUMASON) injection 5 mL 12-03 20:45: 00 12-03 20:32 :00 No [id number] 5mL 5 mL, Intravenou s, ONCE, 1 dose, On Mon12/04/23 at 1545, Routine [facility] lactated ringers IV infusion 1,000 mL 12-03 19:45: 00 12-03 21:58 :00 No 1000mL at 999 mL/hr, 1,000 mL, Intravenou s, ONCE, 1 dose, On Mon12/04/23 at 1445, Routine [facility] furosemide (LASIX) injection 40 mg 12-03 17:30: 00 12-03 17:50 :00 No 40mg 40 mg, Slow IV Push, ONCE, 1 dose, On Mon12/04/23 at 1245, Routine [facility] albumin (ALBUMINAR 25%) 25 % injection 25 g 12-03 11:00: 00 12-03 12:27 :00 No 25g 25 g, IV Infusion, ONCE, 1 dose, On Mon12/04/23 at 0600, 100 mL, Indication : NEPHROTIC SYNDROME (ACUTE, SEVERE PERIPHERAL OR PULMONARY EDEMA), Comments: Short-term use of albumin in combinatio n with diuretic therapy when: serum albumin <2 g/dL and optimal diuretic therapy alone has failed, 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 94 mL/hr), IV Infusion, TITRATE, MAP Goal > or = 65 mmHg, Starting on Mon12/04/23 at 0311, For 24 hours, Initiate titration at 0.05 mcg/kg/min . Increase by 0.01 mcg/kg/min every 30 seconds to 5 minutes as needed to reach and maintain goal blood pressure. Maximum dose = 0.5 mcg/kg/min . If goal not maintained at maximum allowed dose, contact prescriber . Administer only one peripheral intravenou s vasopresso r at a time. [facility] fentaNYL PF (SUBLIMAZE) 10 mcg/mL in NaCl 0.9% (NS) RTU 12-03 07:56: 03 12-07 01:26 :56 No 25ug/h 25-200 mcg/hr (2.5-20 mL/hr), IV Infusion, TITRATE, CPOT/Pain Scale Goals Determined by Provider, Starting on Mon12/04/23 at 0256, Initiate infusion at 25 mcg/hr. Titrate by 25 mcg/hr every 1 minute to 15 minutes to identified goal pain and/or sedation scores. Maximum dose = 200 mcg/hr. If goal not maintained at maximum allowed dose, contact prescriber . [facility] propofoL IV infusion 12-03 07:55: 49 12-06 05:32 :36 No 5ug/kg/ min 5-50 mcg/kg/min ?170.1 kg (5.103-51. 03 mL/hr, rounded to 5.1-51.03 mL/hr), IV Infusion, TITRATE, Sedation-R ASS score (0 to -1), Starting on Mon12/04/23 at 0255, Initiate infusion at 5 mcg/kg/min and titrate by 5 mcg/kg/min every 30 seconds to 10 minutes to goal sedation score. Maximum dose = 50 mcg/kg/min . If goal not maintained at maximum allowed dose, contact prescriber . Tubing and unused portions of vials should be discarded after 12 hours. [facility] midazolam (VERSED) injection 12-03 06:32: 00 12-03 07:25 :17 No IV Push, ONCE INTRA PROCEDURE, Starting on Mon12/04/23 at 0132, Until Mon12/04/23 at 0225, Routine, Intra-op [facility] sodium hypochlorit e 0.25% (DAKIN'S SOLUTION) solution 12-03 05:53: 00 12-03 06:59 :50 No PRN, Starting on 12/04/23 at 0053, Until Mon12/04/23 at 0159, Routine, Intra-op [facility] Transfuse Packed RBC (in units)~ 12-03 03:27: 00 12-03 07:25 :17 No Routine [facility] NORepinephr ine (LEVOPHED) 4 mg in NaCl 0.9% (NS) 250 mL infusion 12-03 03:07: 00 12-03 07:25 :17 No IV Infusion, CONTINUOUS PRN, Starting on 12/03/23 at 2207, Intra-op [facility] Transfuse Packed RBC (in units)~On hold for procedure; 12/02 0800; Infuse Each Unit Over: 2 Hours 12-03 02:48: 41 12-03 07:25 :17 No Routine [facility] labetaloL (NORMODYNE) 5 mg/mL injection 12-03 02:40: 00 12-03 07:25 :17 No Slow IV Push, ONCE INTRA PROCEDURE, Starting on Mon12/03/23 at 2140, Until Mon12/04/23 at 022, Routine, Intra-op [facility] lactated ringers IV infusion 12-03 01:26: 00 12-03 07:25 :17 No IV Infusion, CONTINUOUS PRN, Starting on Mon12/03/23 at 2025, Until Mon12/04/23 at 022, Routine, Intra-op [facility] PHENYLephri ne 1000 mcg/10 mL in 0.9% NaCl syringe 12-03 01:09: 00 12-03 07:25 :17 No Slow IV Push, ONCE INTRA PROCEDURE, Starting on 12/03/23 at 2009, Until Mon12/04/23 at 022, Routine, Intra-op [facility] NORepinephr ine (LEVOPHED) 4 mg in NaCl 0.9% (NS) 250 mL infusion 12-03 01:03: 00 12-03 07:25 :17 No IV Infusion, CONTINUOUS PRN, Starting on 12/03/23 at 2002, Intra-op [facility] rocuronium (ZEMURON) injection 12-03 00:56: 00 12-03 07:25 :17 No IV Push, ONCE INTRA PROCEDURE, Starting on 12/03/23 at 195, Until 12/04/23 at 224, Routine, Intra-op [facility] propofoL IV infusion 12-03 00:56: 00 12-03 07:25 :17 No Slow IV Push, ONCE INTRA PROCEDURE, Starting on 12/03/23 at 195, Until Mon12/04/23 at 224, Routine, Intra-op [facility] lidocaine 1% (XYLOCAINE) 100 mg/10 mL (1 %) injection 12-03 00:56: 00 12-03 07:25 :17 No Slow IV Push, ONCE INTRA PROCEDURE, Starting on 12/03/23 at 195, Until Mon12/04/23 at 224, Routine, Intra-op [facility] FENTanyl (PF) (SUBLIMAZE) injection 12-03 00:56: 00 12-03 07:25 :17 No Slow IV Push, ONCE INTRA PROCEDURE, Starting on 12/03/23 at 1956, Until Mon12/04/23 at 224, Routine, Intra-op [facility] lactated ringers IV infusion 12-03 00:47: 00 12-03 07:25 :17 No IV Infusion, CONTINUOUS PRN, Starting on 12/03/23 at 1947, Until Mon12/04/23 at 224, Routine, Intra-op [facility] acetaminoph en (OFIRMEV) IV piggyback 1,000 mg 12-02 23:15: 00 12-02 22:43 :00 No 1000mg 1,000 mg, IV Piggyback, at 400 mL/hr Administer over 15 Minutes, ONCE, 1 dose, On Mon12/03/23 at 1815, Routine, Is the patient strict NPO and unable to tolerate oral medication s? Yes [facility] iopamidol (ISOVUE 370-500 mL) injection 80 mL 12-02 22:12: 00 12-02 22:30 :00 No [id number] 80mL 80 mL, Intravenou s, ONCE, 1 dose, On Mon12/03/23 at 1730, Routine [facility] pantoprazol e (PROTONIX) injection 40 mg 12-02 20:02: 27 12-07 16:33 :39 No 40mg 40 mg, Slow IV Push, Q24H, First dose (after last modificati on) on Mon12/03/23 at 1515, Until Discontinu ed [facility] HYDROmorpho ne (DILAUDID) injection 0.4 mg 12-02 18:53: 24 12-03 06:57 :49 No .4mg 0.4 mg, Intravenou s, Q5MIN PRN, 3 doses, Starting on Mon12/03/23 at 1353, Until Mon12/04/23 at 0157, Routine, Pain (scale 7-10), For disimpacti on, Is this medication approved by a Faculty level provider? Yes, glass forming crew member approving Restricted medication : TAYLOR SEGUNDO [facility] morpHINE 30 mg/30 mL (fixed dose) [employer] MACHINE injection 12-02 18:45: 00 12-03 06:57 :49 No Patient Bolus Dose: 1 mg, Lockout Interval: 12 Minutes, Basal Rate: 0 mg/hr, Four Hour Dose Limit: 32 mg, Intravenou s, 30 mL, CONTINUOUS , Starting on Mon12/03/23 at 1345, Until Mon12/04/23 at 0157 [facility] naloxone (NARCAN) injection 0.4 mg 12-02 17:34: 30 Yes .4mg 0.4 mg, Slow IV Push, PRN, Starting on Mon12/03/23 at 1234, Until Discontinu ed, Routine, Sedation/R espiratory Depression [facility] piperacilli n-tazobacta m (ZOSYN) 3.375 g in NaCl 0.9% (NS) 100 mL MINI-BAG 12-02 16:30: 00 12-07 01:24 :56 No 3.375g 3.375 g, IV Piggyback, Q8H ABX, 15 doses, First dose on Mon12/03/23 at 1130, Last dose on Mon12/08/23 at 0330, Administer over 4 Hours, 100 mL, Reason for Anti-Infec tive: Documented Infection, Documented Infection Site: Abdominal, Duration of Therapy: 7 days [facility] acetaminoph en ([facility]) IV piggyback 1,000 mg 12-02 15:15: 00 12-02 15:34 :00 No 1000mg 1,000 mg, IV Piggyback, at 400 mL/hr Administer over 15 Minutes, ONCE, 1 dose, On Mon12/03/23 at 1015, Routine, Is the patient strict NPO and unable to tolerate oral medication s? Yes [facility] HYDROmorpho ne (DILAUDID) injection 0.4 mg 12-02 15:04: 12 12-02 17:35 :33 No .4mg 0.4 mg, Slow IV Push, Q4HPRN, Starting on Mon12/03/23 at 1004, Until Mon12/03/23 at 1235, Routine, Pain (scale 7-10), Is this medication approved by a Faculty level provider? Yes, glass forming crew member approving Restricted medication : TAYLOR SEGUNDO [facility] acetaminoph en ([facility]) IV piggyback 1,000 mg 12-02 10:15: 00 12-02 09:49 :00 No 1000mg 1,000 mg, IV Piggyback, at 400 mL/hr Administer over 15 Minutes, ONCE, 1 dose, On Mon12/03/23 at 0515, Routine, Is the patient strict NPO and unable to tolerate oral medication s? Yes [facility] pantoprazol e (PROTONIX) injection 40 mg 12-02 09:15: 00 12-02 18:57 :58 No 40mg 40 mg, Slow IV Push, Q24H, 3 doses, First dose on Mon12/03/23 at 0415, Last dose on Mon12/05/23 at 0415 [facility] lactated ringers IV infusion 1,000 mL 12-02 09:00: 00 12-04 16:44 :09 No 1000mL at 150 mL/hr, 1,000 mL, IV Infusion, CONTINUOUS , Starting on Mon12/03/23 at 0400, Until Mon12/05/23 at 1144, Routine [facility] morphine (2 mg/mL) injection 4 mg 12-02 08:07: 13 12-02 15:05 :09 No 4mg 4 mg, Slow IV Push, Q3HPRN, Starting on Mon12/03/23 at 0307, Until Mon12/03/23 at 1005, Routine, Pain (scale 7-10), Pain unrelieved by scheduled analgesics [facility] ondansetron (ZOFRAN (PF)) injection 4 mg 12-02 08:06: 29 Yes 4mg [facility] piperacilli n-tazobacta m (ZOSYN) 3.375 g in NaCl 0.9% (NS) 100 mL MINI-BAG 12-02 07:53: 00 12-02 08:36 :00 No 3.375g 3.375 g, IV Piggyback, ONCE, 1 dose, On Mon12/03/23 at 0300, Administer over 30 Minutes, 100 mL, Reason for Anti-Infec tive: Documented Infection, Documented Infection Site: Abdominal, Duration of Therapy: 7 days [facility] HYDROcodone -acetaminop hen 5-325 mg tablet 11-27 00:00: 00 Yes [id number] 1{tbl} Take 1 tablet by mouth every 6 (six) hours as needed for Pain (scale 7-10). Indication s: acute pain, chronic pain [facility] gabapentin 100 mg capsule 11-23 00:00: 00 Yes [id number] 100mg Take 1 capsule by mouth in the morning. [facility] sennosides 8.6 mg tablet 11-23 00:00: 00 Yes [id number] 8.6mg Take 1 tablet by mouth in the morning. [facility] polyethylen e glycol 3350 17 gram powder 11-23 00:00: 00 12-02 00:00 :00 No [id number] 17g Take 1 Packet by mouth in the morning. [facility] perflutren lipid microsphere s (DEFINITY) injection 2 mL 11-22 15:30: 11-22 15:30 :00 No [id number] 2mL 2 mL, IV Push, ONCE, 1 dose, On Christie 11/23/23 at 1030, Routine [facility] Potassium Bicarb-Citr ic Acid (EFFER-K) effervescen t tablet 40 mEq 11-22 13:15: 00 11-22 13:06 :00 No 40meq 40 mEq, Oral, ONCE, 1 dose, On Mon11/23/23 at 0815, Routine [facility] cephALEXin (KEFLEX) capsule 500 mg 11-22 13:00: 11-27 12:59 :00 Yes 500mg 500 mg, Oral, Q12H, 10 doses, First dose on Mon11/23/23 at 0800, Last dose on Mon11/27/23 at 2000, DIMAS, Reason for Anti-Infec tive: Documented Infection, Documented Infection Site: Urine, Duration of Therapy: 7 days [facility] cephALEXin 500 mg capsule 11-22 00:00: 00 Yes [id number] 500mg Take 1 capsule by mouth every 12 (twelve) hours. [facility] ferrous sulfate 325 mg (65 mg iron) tablet 11-22 00:00: 00 Yes [id number] 325mg Take 1 tablet by mouth every other day. [facility] HYDROcodone -acetaminop hen 5-325 mg tablet 11-22 00:00: 00 11-27 00:00 :00 No [id number] 1{tbl} Take 1 tablet by mouth every 6 (six) hours as needed for Pain (scale 7-10) for up to 7 days. Indication s: acute pain [facility] lidocaine 4% (L-M-X 4) 4 % cream 11-21 22:00: 00 11-21 22:36 :00 No Topical, ONCE, 1 dose, On Mon11/22/23 at 1700, Routine [facility] gabapentin (NEURONTIN) capsule 100 mg 11-21 18:15: 00 Yes 100mg 100 mg, Oral, DAILY, First dose (after last modificati on) on Mon11/22/23 at 1315, Until Discontinu ed, Routine [facility] HYDROcodone -acetaminop hen (NORCO 5) tablet 1 tablet 11-21 14:45: 33 Yes 1{tbl} 1 tablet, Oral, Q6HPRN, Starting on Mon11/22/23 at 0945, Until Discontinu ed, Routine, Pain (scale 7-10) [facility] simethicone (GAS RELIEF (SIMETHICON E)) chewable tablet 80 mg 11-21 14:00: 00 Yes 80mg 80 mg, Oral, PC+HS, First dose on Mon11/22/23 at 0900, Until Discontinu ed, Routine [facility] cefTRIAXone (ROCEPHIN) 1,000 mg in NaCl 0.9% (NS) 100 mL MINI-BAG 11-20 21:00: 00 11-22 12:28 :15 No 1000mg 1,000 mg, IV Piggyback, Q24H ABX, 5 doses, First dose on Mon11/21/23 at 1600, Last dose on Mon11/25/23 at 1600, Administer over 30 Minutes, 100 mL, Reason for Anti-Infec tive: Documented Infection, Documented Infection Site: Urine, Duration of Therapy: 7 days [facility] polyethylen e glycol 3350 powder 17 [...] Until Discontinu ed, Routine [Order 2 End] [facility] ramelteon (ROZEREM) tablet 8 mg 11-20 05:00: 00 11-20 05:00 :00 No 8mg 8 mg, Oral, ONCE NOW, 1 dose, On Mon11/21/23 at 0000, Routine [facility] glycerin/mi neral oil (AGLO ENEMA) (COMPOUNDED ) Enem 225 mL 11-20 04:19: 23 Yes 225mL 225 mL, Rectal, PRN, Starting on Mon11/20/23 at 2319, Until Discontinu ed, Routine, Constipati on unresolved by oral medication s [facility] heparin (porcine) injection 5,000 Units 11-20 03:00: 00 Yes 5000U 5,000 Units, Subcutaneo us, Q8H, First dose on Mon11/20/23 at 2200, Until Discontinu ed, Routine [facility] acetaminoph en (TYLENOL) tablet 650 mg 11-20 02:16: 20 Yes 650mg [facility] insulin lispro (human) (HumaLOG U-100) injection 2 Units 11-19 22:22: 30 Yes 2U 2 Units, Subcutaneo us, PRN - SEE INSTRUCTIO NS, 1 dose, Starting on Mon11/20/23 at 1722, Until Discontinu ed, Routine, For blood glucose > 300 mg/dL [facility] dextrose 10% (D10W) bolus infusion 125 [...] carb snack - Sprite or cranberry juice. [facility] NaCl 0.9% (NS) bolus infusion 500 mL 11-19 22:00: 00 11-19 23:24 :00 No [id number] 500mL at 999 mL/hr, 500 mL, IV Piggyback, ONCE, 1 dose, On Mon11/20/23 at 1700, STAT [facility] lidocaine (XYLOCAINE) 2 % jelly URO-JET 10 mL 11-19 20:45: 00 11-19 22:32 :00 No 10mL 10 mL, Urethral, ONCE, 1 dose, On Mon11/20/23 at 1545, Routine [facility] sodium bicarbonate 150 mEq in D5W 1,000 mL IV infusion 11-19 20:30: 00 11-20 06:30 :00 No 150meq IV Infusion, at 200 mL/hr, 150 mEq, ONCE, 1 dose, On Mon11/20/23 at 1530, DIMAS [facility] insulin regular human (HUMULIN R) injection 10 Units 11-19 20:30: 00 11-19 23:14 :00 No 10U 10 Units, IV Push, ONCE, 1 dose, On Mon11/20/23 at 1530, DIMAS, Indication for insulin: Hyperkalem ia- Please use the Insulin Protocol for Hyperkalem ia order set [facility] dextrose 50 % in water (D50W) injection 50 mL 11-19 20:30: 00 11-19 23:06 :00 No 50mL 50 mL, Slow IV Push, ONCE, 1 dose, On Mon11/20/23 at 1530, DIMAS [facility] glucagon HCL injection 1 mg 11-19 20:17: 46 Yes 1mg 1 mg, Intramuscu lar, PRN, Starting on Mon11/20/23 at 1517, Until Discontinu ed, DIMAS, Low blood sugar, Blood Glucose < or = 70 mg/dL and patient is NPO, unable to swallow or has mental changes. [facility] dextrose 50 % in water (D50W) injection 25 mL 11-19 20:17: 46 Yes 25mL 25 mL, Slow IV Push, PRN, Starting on Mon11/20/23 at 1517, Until Discontinu ed, DIMAS, Blood Glucose < or = 70 mg/dL and patient is NPO, unable to swallow or has mental status changes. [facility] fentanyl PF (SUBLIMAZE (PF)) injection 12.5 mcg 11-19 20:00: 00 11-19 20:34 :00 No 12.5ug 12.5 mcg, Slow IV Push, ONCE, 1 dose, On Mon11/20/23 at 1500, Routine [facility] piperacilli n-tazobacta m (ZOSYN) 2.25 g in NaCl 0.9% (NS) 100 mL MINI-BAG 11-19 20:00: 00 11-19 22:31 :00 No 2.25g 2.25 g, IV Piggyback, ONCE, 1 dose, On Mon11/20/23 at 1500, Administer over 30 Minutes, 100 mL, Reason for Anti-Infec tive: Documented Infection, Documented Infection Site: Urine, Duration of Therapy: Once (ED) [facility] metoclopram margarita HCl (REGLAN) injection 10 mg 11-19 20:00: 00 11-19 20:48 :00 No 10mg 10 mg, Slow IV Push, ONCE, 1 dose, On Mon11/20/23 at 1500, DIMAS [facility] NaCl 0.9% (NS) bolus infusion 500 mL 11-19 17:30: 00 11-19 22:31 :00 No 500mL at 999 mL/hr, 500 mL, IV Infusion, ONCE, 1 dose, On Mon11/20/23 at 1230, STAT [facility] Vital Signs Vital Name Observation Time Observation Value Comments S ource Systolic blood pressure 2023-12-29 14:00:00 133 mm[Hg] [facility] Diastolic blood pressure 2023-12-29 14:00:00 62 mm[Hg] [facility] Heart rate 2023-12-29 14:00:00 87 /min [facility] Body temperature 2023-12-29 14:00:00 36.56 Adore [facility] Respiratory rate 2023-12-29 14:00:00 17 /min [facility] Oxygen saturation in Arterial blood by Pulse oximetry 2023-12-29 14:00:00 98 /min [facility] Body height 2023-12-27 13:00:00 172.7 cm [facility] Body weight 2023-12-27 13:00:00 170.099 kg [facility] BMI 2023-12-27 13:00:00 57.02 kg/m2 [facility] Respiratory rate 2023-12-04 00:52:00 30 /min [facility] Heart rate 2023-12-03 23:00:00 98 /min [facility] Respiratory rate 2023-12-03 23:00:00 28 /min [facility] Oxygen saturation in Arterial blood by Pulse oximetry 2023-12-03 23:00:00 99 /min [facility] Systolic blood pressure 2023-12-03 22:00:00 155 mm[Hg] [facility] Diastolic blood pressure 2023-12-03 22:00:00 76 mm[Hg] [facility] Body temperature 2023-12-03 21:00:00 37.61 Adore [facility] Body height 2023-12-03 15:19:00 172.7 cm [facility] Body weight 2023-12-03 15:19:00 170.1 kg [facility] BMI 2023-12-03 15:19:00 57.02 kg/m2 [facility] Systolic blood pressure 2023-11-23 16:54:00 136 mm[Hg] [facility] Diastolic blood pressure 2023-11-23 16:54:00 61 mm[Hg] [facility] Heart rate 2023-11-23 16:54:00 92 /min [facility] Body temperature 2023-11-23 16:54:00 36.22 Adore [facility] Respiratory rate 2023-11-23 16:54:00 18 /min [facility] Oxygen saturation in Arterial blood by Pulse oximetry 2023-11-23 16:54:00 96 /min [facility] Body height 2023-11-21 01:17:00 170.2 cm [facility] Body weight 2023-11-21 01:17:00 171.913 kg [facility] BMI 2023-11-21 01:17:00 59.36 kg/m2 [facility] Heart rate 2023-12-04 16:20:00 106 /min [facility] Respiratory rate 2023-12-04 16:20:00 22 /min [facility] [place] [facility] saturation in Arterial blood by Pulse oximetry 2023-12-04 16:20:00 100 /min [facility] Body temperature 2023-12-04 13:00:00 37.28 Adore [facility] [place] Systolic blood pressure 2023-12-04 07:15:00 194 mm[Hg] [facility] Diastolic blood pressure 2023-12-04 07:15:00 165 mm[Hg] [facility] Body height 2023-12-03 15:19:00 172.7 cm [facility] Body weight 2023-12-03 15:19:00 170.1 kg [facility] BMI 2023-12-03 15:19:00 57.02 kg/m2 [facility] Procedures Procedure Date / Time Performed Performing Clinician Source CT ABDOMEN PELVIS W CONTRAST 2023-12-22 17:55:36 Yoni Simon [facility] [place] PHOSPHORUS 2023-12-20 10:27:00 Corey Carias [facility] [place] MAGNESIUM 2023-12-20 10:27:00 Corey Carias [facility] [place] BASIC METABOLIC PANEL (NA, K, CL, CO2, GLUCOSE, BUN, CREATININE, CA) 2023-12-20 10:27:00 Corey Costello [facility] [place] CBC WITH DIFF 2023-12-20 10:27:00 Corey Carias [facility] [place] PHOSPHORUS 2023-12-19 14:46:00 Corey Carias [facility] [place] MAGNESIUM 2023-12-19 14:45:00 Corey Carias [facility] [place] PHOSPHORUS 2023-12-18 11:20:00 Corey Carias [facility] [place] MAGNESIUM 2023-12-18 11:20:00 Corey Carias [facility] [place] BASIC METABOLIC PANEL (NA, K, CL, CO2, GLUCOSE, BUN, CREATININE, CA) 2023-12-18 11:20:00 Corey Costello [facility] [place] CBC WITH DIFF 2023-12-18 11:20:00 Corey Carias [facility] [place] PHOSPHORUS 2023-12-17 09:20:00 Corey Carias [facility] [place] MAGNESIUM 2023-12-17 09:20:00 Corey Carias [facility] [place] BASIC METABOLIC PANEL (NA, K, CL, CO2, GLUCOSE, BUN, CREATININE, CA) 2023-12-17 09:20:00 Corey Costello [facility] [place] CBC WITH DIFF 2023-12-17 09:20:00 Corey Carias [facility] [place] ACTIVATED PARTIAL THRMPLAS JESUS MANUEL 2023-12-16 21:28:00 Corey Costello [facility] [place] PHOSPHORUS 2023-12-16 07:47:00 Corey Carias [facility] [place] MAGNESIUM 2023-12-16 07:47:00 Corey Carias [facility] [place] BASIC METABOLIC PANEL (NA, K, CL, CO2, GLUCOSE, BUN, CREATININE, CA) 2023-12-16 07:47:00 Corey Costello [facility] [place] CBC WITH DIFF 2023-12-16 07:47:00 Corey Carias [facility] [place] ACTIVATED PARTIAL THRMPLAS JESUS MANUEL 2023-12-16 03:37:00 Corey Costello [facility] [place] ACTIVATED PARTIAL THRMPLAS JESUS MANUEL 2023-12-15 20:20:00 Corey Costello [facility] [place] PHOSPHORUS 2023-12-15 08:44:00 Corey Carias [facility] [place] MAGNESIUM 2023-12-15 08:44:00 Corey Carias [facility] [place] BASIC METABOLIC PANEL (NA, K, CL, CO2, GLUCOSE, BUN, CREATININE, CA) 2023-12-15 08:44:00 Corey Costello [facility] [place] CBC WITH DIFF 2023-12-15 08:44:00 Corey Carias [facility] [place] ACTIVATED PARTIAL THRMPLAS JESUS MANUEL 2023-12-15 08:44:00 Corey Costello [facility] [place] POTASSIUM SERUM 2023-12-15 06:07:00 Magy Ayala [facility] ACTIVATED PARTIAL THRMPLAS JESUS AMNUEL 2023-12-15 01:36:00 Corey Costello [facility] [place] ACTIVATED PARTIAL THRMPLAS JESUS MANUEL 2023-12-14 17:23:00 Corey Costello [facility] [place] PHOSPHORUS 2023-12-14 09:57:00 Corey Carias [facility] [place] MAGNESIUM 2023-12-14 09:57:00 Corey Carias [facility] [place] BASIC METABOLIC PANEL (NA, K, CL, CO2, GLUCOSE, BUN, CREATININE, CA) 2023-12-14 09:57:00 Corey Costello [facility] [place] CBC WITH DIFF 2023-12-14 09:57:00 Corey Carias [facility] [place] PROTHROMBIN TIME / INR 2023-12-14 09:57:00 Angela Almodovar [facility] [place] ACTIVATED PARTIAL THRMPLAS JESUS MANUEL 2023-12-14 09:57:00 Corey Costello [facility] [place] ACTIVATED PARTIAL THRMPLAS JESUS MANUEL 2023-12-14 03:11:00 Corey Costello [facility] [place] ACTIVATED PARTIAL THRMPLAS JESUS MANUEL 2023-12-13 19:52:00 Corey Costello [facility] [place] BASIC METABOLIC PANEL (NA, K, CL, CO2, GLUCOSE, BUN, CREATININE, CA) 2023-12-13 18:24:00 Corey Costello [facility] [place] PHOSPHORUS 2023-12-13 10:34:00 Corey Carias [facility] [place] MAGNESIUM 2023-12-13 10:34:00 Corey Carias [facility] [place] BASIC METABOLIC PANEL (NA, K, CL, CO2, GLUCOSE, BUN, CREATININE, CA) 2023-12-13 10:34:00 Corey Costello [facility] [place] CBC WITH DIFF 2023-12-13 10:34:00 Corey Carias [facility] [place] ACTIVATED PARTIAL THRMPLAS JESUS MANUEL 2023-12-13 10:34:00 Corey Costello [facility] [place] ACTIVATED PARTIAL THRMPLAS JESUS MANUEL 2023-12-12 19:43:00 Corey Costello [facility] [place] PHOSPHORUS 2023-12-12 10:45:00 Corey Carias [facility] [place] MAGNESIUM 2023-12-12 10:45:00 Corey Carias [facility] [place] HEPATIC FUNCTION PANEL (58349) (ALB,T.PRO,BILI T,BU/BC,ALT,AST,ALK PHOS) 2023-12-12 10:45:00 Sukhwinder Almodovar [facility] [place] BASIC METABOLIC PANEL (NA, K, CL, CO2, GLUCOSE, BUN, CREATININE, CA) 2023-12-12 10:45:00 Corey Costello [facility] [place] CBC WITH DIFF 2023-12-12 10:45:00 Corey Carias [facility] [place] PROTHROMBIN TIME / INR 2023-12-12 10:45:00 Angela Almodovar [facility] [place] ACTIVATED PARTIAL THRMPLAS JESUS MANUEL 2023-12-12 10:45:00 Corey Costello [facility] [place] ACTIVATED PARTIAL THRMPLAS JESUS MANUEL 2023-12-12 03:53:00 Corey Costello [facility] [place] ACTIVATED PARTIAL THRMPLAS JESUS MANUEL 2023-12-11 20:53:00 Corey Costello [facility] [place] PROTHROMBIN TIME / INR 2023-12-11 20:52:00 Corey Dugan [facility] [place] PHOSPHORUS 2023-12-11 08:32:00 Corey Carias [facility] [place] MAGNESIUM 2023-12-11 08:32:00 Corey Carias [facility] [place] BASIC METABOLIC PANEL (NA, K, CL, CO2, GLUCOSE, BUN, CREATININE, CA) 2023-12-11 08:32:00 Corey Costello [facility] [place] CBC WITH DIFF 2023-12-11 08:32:00 Corey Carias [facility] [place] XR CHEST 1 VW 2023-12-10 10:12:00 Corey Carias [facility] [place] PHOSPHORUS 2023-12-10 08:10:00 Corey Carias [facility] [place] MAGNESIUM 2023-12-10 08:10:00 Corey Carias [facility] [place] BASIC METABOLIC PANEL (NA, K, CL, CO2, GLUCOSE, BUN, CREATININE, CA) 2023-12-10 08:10:00 Corey Costello [facility] [place] CBC WITH DIFF 2023-12-10 08:10:00 Corey Carias [facility] [place] BODY FLUID CULTURE(AEROBIC/ANAEROBIC) 2023-12-09 14:04:00 Corey Costello [facility] [place] XR CHEST 1 VW 2023-12-09 09:46:00 Corey Carias [facility] [place] PHOSPHORUS 2023-12-09 08:47:00 Corey Carias [facility] [place] MAGNESIUM 2023-12-09 08:47:00 Corey Carias [facility] [place] BASIC METABOLIC PANEL (NA, K, CL, CO2, GLUCOSE, BUN, CREATININE, CA) 2023-12-09 08:47:00 Corey Costello [facility] [place] CBC WITH DIFF 2023-12-09 08:47:00 Corey Carias [facility] [place] XR KUB 2023-12-09 03:07:55 Mairlee Wei [facility] [place] CT ABDOMEN PELVIS W CONTRAST 2023-12-08 16:31:19 Corey Costello [facility] [place] XR CHEST 1 2023-12-08 08:58:00 Corey Carias [facility] [place] PHOSPHORUS 2023-12-08 08:47:00 Corey Carias [facility] [place] MAGNESIUM 2023-12-08 08:47:00 Corey Carias [facility] [place] BASIC METABOLIC PANEL (NA, K, CL, CO2, GLUCOSE, BUN, CREATININE, CA) 2023-12-08 08:47:00 Corey Costello [facility] [place] CBC WITH DIFF 2023-12-08 08:47:00 Corey Carias [facility] [place] XR CHEST 1 2023-12-07 09:14:00 Corey Carias [facility] [place] PHOSPHORUS 2023-12-07 08:28:00 Ariel Vieira [facility] MAGNESIUM 2023-12-07 08:28:00 [facility] (NA, K, CL, CO2, GLUCOSE, BUN, CREATININE, CA) 2023-12-07 08:28:00 Ariel Vieira [facility] [place] CBC WITH DIFF 2023-12-07 08:28:00 Dariel [facility] AC PANEL 20 + LACTIC ACID 2023-12-07 08:27:00 Jeny Garner [facility] [place] URINALYSIS 2023-12-06 17:32:00 Leonid Jim Sotomayor [facility] AC PANEL 20 + LACTIC ACID 2023-12-06 14:55:00 Jeny Garner [facility] [place] TRANSFUSE PACKED RBC 2023-12-06 10:05:00 Beckie Carreon [facility] [place] PREPARE PACKED RBC 2023-12-06 09:47:53 Beckie Carreon [facility] [place] XR CHEST 1 VW 2023-12-06 09:03:00 Corey Carias [facility] [place] PHOSPHORUS 2023-12-06 08:18:00 Dariel [facility] MAGNESIUM 2023-12-06 08:18[facility] (NA, K, CL, CO2, GLUCOSE, BUN, CREATININE, CA) 2023-12-06 08:18:00 Dariel [facility] CBC WITH DIFF 2023-12-06 08:18:00 Dariel [facility] AC PANEL 20 + LACTIC ACID 2023-12-06 08:18:00 Beckie Carreon [facility] [place] ACUTE CARE ARTERIAL BLOOD GAS 2023-12-05 17:35:00 Yoni Simon [facility] [place] XR CHEST 1 VW 2023-12-05 08:53:00 Corey Carias [facility] [place] PHOSPHORUS 2023-12-05 08:34:00 [facility]23-12-05 08:34:00 [facility] MET[facility]OLIC PANEL (NA, K, CL, CO2, GLUCOSE, BUN, CREATININE, CA) 2023-12-05 08:34:00 Dariel [facility] CBC WITH DIFF 2023-12-05 08:34:00 Ariel Vieira [facility] AC PANEL 20 + LACTIC ACID 2023-12-05 08:34:00 [facility] + [facility]ACTIC ACID 2023-12-05 03:58:00 [facility] + LACTIC ACID 2023-12-05 01:49:00 [facility]W 2023-12-05 01:04:00 Dongcharlotte[facility] 2023-12-05 01:03:45 Lauri, [facility] BASIC METABOLIC PANEL (NA, K, CL, CO2, GLUCOSE, BUN, CREATININE, CA) 2023-12-04 22:35:00 Nishi [facility] CBC WITH DIFF 2023-12-04 22:35:00 Nishi Sukhwinder [facility] TRANSTHORACIC ECHO (TTE) LIMITED W/ CONTRAST 2023-12-04 20:36:00 Corey Costello [facility] [place] AC PANEL 20 + LACTIC ACID 2023-12-04 19:53:00 Lauri [facility] AC PANEL 20 + LACTIC ACID 2023-12-04 10:28:00 Lauri [facility] AC PANEL 20 + LACTIC ACID 2023-12-04 10:28:00 Lauri [facility] AC PANEL 20 + LACTIC ACID 2023-12-04 10:28:00 [facility] + LACTIC ACID 2023-12-04 08:15:00 Michelle Steiner [facility] [place] AC PANEL 20 + LACTIC ACID 2023-12-04 08:15:00 Michelle Steiner [facility] [place] AC PANEL 20 + LACTIC ACID 2023-12-04 08:15:00 Michelle Steiner [facility] [place] CBC WITH DIFF 2023-12-04 08:14:00 Elizabeth Steiner [facility] BASIC METABOLIC PANEL (NA, K, CL, CO2, GLUCOSE, BUN, CREATININE, CA) 2023-12-04 08:14:00 Green [facility] MAGNESIUM 2023-12-04 08:14[facility]04 08:14[facility] ACT[facility] PARTIAL THRMPLAS JESUS MANUEL 2023-12-04 [facility]-12-04 08:14:00 Green [facility] FIBRINOGEN 2023-12-04 08:14:00 [facility] GLYCOSYL[facility] HEMOGLOBIN (A1C) 2023-12-04 08:14:00 Los Guidry [facility] PHOSPHORUS 2023-12-04 08:14:00 [facility] 2023-12-04 08:14:00 [facility] BASIC METABOLIC PANEL (NA, K, CL, CO2, GLUCOSE, BUN, CREATININE, CA) 2023-12-04 08:14:00 Jatin [facility] CBC WITH DIFF 2023-12-04 08:14:[address] GLYCOSYLATED HEMOGLOBIN (A1C) 2023-12-04 08:14:00 Los Guidry [facility] PROTHROMBIN TIME / INR 2023-12-04 08:14:00 Green [facility] ACTIVATED PARTIAL THRMPLAS JESUS MANUEL 2023-12-04 08:14:00 Green [facility] FIBRINOGEN 2023-12-04 08:14:00 [facility] 2023-12-04 08:14:00 [facility] MAG[facility]UM 2023-12-04 08:14:00 [facility] BASIC METABOLIC PANEL (NA, K, CL, CO2, GLUCOSE, BUN, CREATININE, CA) 2023-12-04 [facility] 2023-12-04 08:14:[address] GLYCOSYLATED HEMOGLOBIN (A1C) 2023-12-04 08:14:00 BreaLos Darya Reynoso [facility] [place] PROTHROMBIN TIME / INR 2023-12-04 08:14:00 Jatin [facility] ACTIVATED PARTIAL THRMPLAS JESUS MANUEL 2023-12-04 08:14:00 Jatin [facility] FIBRINOGEN 2023-12-04 08:14:00 Jatin [facility] XR KUB 2023-12-04 07:47:00 [facility] 2023-12-04 07:47:00 Green, [facility] XR KUB 2023-12-04 07:47:00 [facility] 2023-12-04 07:46:00 [facility] 2023-12-04 07:46:00 [facility] 2023-12-04 07:46:00 [facility] 2023-12-04 07:43:00 [facility]ST 1 2023-12-04 07:43:[address] XR CHEST 1 2023-12-04 07:43:[address] XR KUB 2023-12-04 07:43:00 [facility] 1 2023-12-04 07:43:[address] XR KUB 2023-12-04 07:43:00 [facility] SUR[facility]AM 2023-12-04 06:23:00 Jaquan Segundo [facility] [place] ABG+COOX+NA+K+GLU+CA2+ 2023-12-04 06:08:00 Randy Saravia [facility] [place] ABG+COOX+NA+K+GLU+CA2+ 2023-12-04 04:15:00 Randy Saravia [facility] [place] TRANSFUSE PACKED RBC 2023-12-04 03:30:00 Stan Izquierdo [facility] [place] TRANSFUSE PACKED RBC 2023-12-04 03:30:00 Stan Izquierdo [facility] [place] TRANSFUSE PACKED RBC 2023-12-04 03:30:00 Stan Izquierdo [facility] [place] ABG+COOX+NA+K+GLU+CA2+ 2023-12-04 03:00:00 Randy Saravia [facility] [place] TRANSFUSE PACKED RBC 2023-12-04 02:51:00 Taylor Segundo [facility] [place] TRANSFUSE PACKED RBC 2023-12-04 02:51:00 Sanya [facility] TRANSFUSE PACKED RBC 2023-12-04 02:51:00 Taylor Segundo [facility] [place] PREPARE PACKED RBC 2023-12-04 02:36:27 Stan Izquierdo [facility] PREPARE PACKED RBC 2023-12-04 02:36:27 Stan Izquierdo [facility] PREPARE PACKED RBC 2023-12-04 02:36:27 Stan Izquierdo [facility] ARTERIAL LINE 2023-12-04 01:12:00 Bashir Carvalho [facility] ARTERIAL LINE 2023-12-04 01:12:00 Bashir Carvalho [facility] INTUBATION 2023-12-04 00:57:00 Bashir Carvalho [facility] INTUBATION 2023-12-04 00:57:00 Bashir Carvalho [facility] EXPLORATORY LAPAROTOMY 2023-12-04 00:33:00 Taylor Segundo [facility] [place] [id number] - [place] COLECTOMY PRTL W/SKIN LEVEL CECOST/COLOSTOMY 2023-12-04 00:33:00 Taylor Segundo [facility] [place] FECAL DISIMPACTION 2023-12-04 00:33:00 Taylor Segundo [facility] EXPLORATORY LAPAROTOMY 2023-12-04 00:33:00 Taylor Segundo [facility] [place] [id number] - [place] COLECTOMY PRTL W/SKIN LEVEL CECOST/COLOSTOMY 2023-12-04 00:33:00 SanyaTaylor [facility] [place] FECAL DISIMPACTION 2023-12-04 00:33:00 Ilarakeshjulissa Taylor Rodriguez [facility] EXPLORATORY LAPAROTOMY 2023-12-04 00:33:00 Ilarakeshjulissa Taylor [facility] [place] [id number] - [place] COLECTOMY PRTL W/SKIN LEVEL CECOST/COLOSTOMY 2023-12-04 00:33:00 IlaTaylor casanova [facility] [place] FECAL DISIMPACTION 2023-12-04 00:33:00 Sanya Taylor Rodriguez [facility] CT ABDOMEN PELVIS W CONTRAST 2023-12-03 22:15:15 Yazmin [facility] CT ABDOMEN PELVIS W CONTRAST 2023-12-03 22:15:15 Yazmin [facility] CT ABDOMEN PELVIS W CONTRAST 2023-12-03 22:15:15 Yazmin [facility] AC PANEL 21 + LACTIC ACID 2023-12-03 20:56:00 Sa zia Alvarez [facility] AC PANEL 21 + LACTIC ACID 2023-12-03 20:56:00 Sa zia Alvarez [facility] AC PANEL 21 + LACTIC ACID 2023-12-03 20:56:00 Sa zia Alvarez [facility] CBC WITH DIFF 2023-12-03 19:40:00 Ko Alvarez [facility] BASIC METABOLIC PANEL (NA, K, CL, CO2, GLUCOSE, BUN, CREATININE, CA) 2023-12-03 19:40:00 Ko Alvarez [facility] HEPATIC FUNCTION PANEL ([id number]) (ALB,T.PRO,BILI T,BU/BC,ALT,AST,ALK PHOS) 2023-12-03 19:40:00 Ko Alvarez [facility] ACTIVATED PARTIAL THRMPLAS JESUS MANUEL 2023-12-03 19:40:00 Ko Alvarez [facility] PROTHROMBIN TIME / INR 2023-12-03 19:40:00 Doris Alvarez [facility] HEPATIC FUNCTION PANEL ([id number]) (ALB,T.PRO,BILI T,BU/BC,ALT,AST,ALK PHOS) 2023-12-03 19:40:00 Ko Alvarez [facility] BASIC METABOLIC PANEL (NA, K, CL, CO2, GLUCOSE, BUN, CREATININE, CA) 2023-12-03 19:40:00 Ko Alvarez [facility] CBC WITH DIFF 2023-12-03 19:40:00 Ko Alvarez [facility] PROTHROMBIN TIME / INR 2023-12-03 19:40:00 Doris Alvarez [facility] ACTIVATED PARTIAL THRMPLAS JESUS MANUEL 2023-12-03 19:40:00 Ko Alvarez [facility] HEPATIC FUNCTION PANEL ([id number]) (ALB,T.PRO,BILI T,BU/BC,ALT,AST,ALK PHOS) 2023-12-03 19:40:00 Ko Alvarez [facility] BASIC METABOLIC PANEL (NA, K, CL, CO2, GLUCOSE, BUN, CREATININE, CA) 2023-12-03 19:40:00 Ko Alvarez [facility] CBC WITH DIFF 2023-12-03 19:40:00 Ko Alvarez [facility] PROTHROMBIN TIME / INR 2023-12-03 19:40:00 Doris Alvarez [facility] ACTIVATED PARTIAL THRMPLAS JESUS MANUEL 2023-12-03 19:40:00 Ko Alvarez [facility] CT ABDOMEN PELVIS W CONTRAST 2023-12-03 18:33:[address] [facility] [address] ABDOMEN PELVIS W CONTRAST 2023-12-03 18:33:[address] [facility] [address] ABDOMEN PELVIS W CONTRAST 2023-12-03 18:33:18 See [facility] FIBRINOGEN 2023-12-03 16:27:00 Corey Carias [facility] [place] ACTIVATED PARTIAL THRMPLAS JESUS MANUEL 2023-12-03 16:27:00 Corey Costello [facility] [place] PROTHROMBIN TIME / INR 2023-12-03 16:27:00 Corey Dugan [facility] [place] PROTHROMBIN TIME / INR 2023-12-03 16:27:00 Corey Dugan [facility] [place] ACTIVATED PARTIAL THRMPLAS JESUS MANUEL 2023-12-03 16:27:00 Corey Costello [facility] [place] FIBRINOGEN 2023-12-03 16:27:00 Corey Carias [facility] [place] PROTHROMBIN TIME / INR 2023-12-03 16:27:00 Corey Dugan [facility] [place] ACTIVATED PARTIAL THRMPLAS JESUS MANUEL 2023-12-03 16:27:00 Corey Costello [facility] [place] FIBRINOGEN 2023-12-03 16:27:00 Corey Carias [facility] [place] PREPARE PACKED RBC 2023-12-03 13:33:02 Taylor Segundo [facility] PREPARE PACKED RBC 2023-12-03 13:33:02 Taylor Segundo [facility] HB ABO GROUPING 2023-12-03 12:35:00 Taylor [facility] HB ABO GROUPING 2023-12-03 12:35:00 Taylor Segundo [facility] HB ABO GROUPING 2023-12-03 12:35:00 Taylor Segundo [facility] CBC WITH DIFF 2023-12-03 08:05:00 Feliberto Hoyt [facility] BASIC METABOLIC PANEL (NA, K, CL, CO2, GLUCOSE, BUN, CREATININE, CA) 2023-12-03 08:05:00 Feliberto Hoyt [facility] [place] LACTIC ACID WHOLE BLOOD 2023-12-03 08:05:00 Feliberto Hoyt [facility] [place] MAGNESIUM 2023-12-03 08:05:00 [facility]R 2023-12-03 08:05:00 Feliberto Hoyt [facility] [place] ACTIVATED PARTIAL THRMPLAS JESUS MANUEL 2023-12-03 08:05:00 Evelina, [facility] HEPATIC FUNCTION PANEL ([id number]) (ALB,T.PRO,BILI T,BU/BC,ALT,AST,ALK PHOS) 2023-12-03 08:05:00 Evelina, [facility] MAGNESIUM 2023-12-03 08:05:00 Evelina, [facility] HEPATIC FUNCTION PANEL ([id number]) (ALB,T.PRO,BILI T,BU/BC,ALT,AST,ALK PHOS) 2023-12-03 08:05:00 Evelina, [facility] BASIC METABOLIC PANEL (NA, K, CL, CO2, GLUCOSE, BUN, CREATININE, CA) 2023-12-03 08:05:00 Evelina, [facility] CBC WITH DIFF 2023-12-03 08:05:00 Evelina, [facility] PROTHROMBIN TIME / INR 2023-12-03 08:05:00 Evelina, [facility] ACTIVATED PARTIAL THRMPLAS JESUS MANUEL 2023-12-03 08:05:00 Evelina, [facility] LACTIC ACID WHOLE BLOOD 2023-12-03 08:05:00 Evelina, [facility] MAGNESIUM 2023-12-03 08:05:00 Evelina, [facility] HEPATIC FUNCTION PANEL ([id number]) (ALB,T.PRO,BILI T,BU/BC,ALT,AST,ALK PHOS) 2023-12-03 08:05:00 Evelina, [facility] BASIC METABOLIC PANEL (NA, K, CL, CO2, GLUCOSE, BUN, CREATININE, CA) 2023-12-03 08:05:00 Evelina, [facility] CBC WITH DIFF 2023-12-03 08:05:00 Evelina, [facility] PROTHROMBIN TIME / INR 2023-12-03 08:05:00 Evelina, [facility] ACTIVATED PARTIAL THRMPLAS JESUS MANUEL 2023-12-03 08:05:00 Evelina, [facility] LACTIC ACID WHOLE BLOOD 2023-12-03 08:05:00 Evelina, [facility] TRANSTHORACIC ECHO (TTE) COMPLETE W/ CONTRAST 2023-11-23 15:24:26 Radha [facility] TRANSTHORACIC ECHO (TTE) COMPLETE W/ CONTRAST 2023-11-23 15:24:26 Radha [facility] CBC WITH DIFF 2023-11-23 11:09:00 [facility]-23 11:09:00 Cherry Garcia [facility] BASIC METABOLIC PANEL (NA, K, CL, CO2, GLUCOSE, BUN, CREATININE, CA) 2023-11-23 11:09:00 Radha [facility] MAGNESIUM 2023-11-23 11:09:00 Radha [facility] BASIC METABOLIC PANEL (NA, K, CL, CO2, GLUCOSE, BUN, CREATININE, CA) 2023-11-23 11:09:00 Radha [facility] CBC WITH DIFF 2023-11-23 11:09:00 Radha [facility] HB ECG ROUTINE & RHYTHM STRIP 2023-11-22 14:50[facility] 2023-11-22 14:50:13 Radha [facility] CBC WITH DIFF 2023-11-22 10:01:00 Jet Aguilar [facility] BASIC METABOLIC PANEL (NA, K, CL, CO2, GLUCOSE, BUN, CREATININE, CA) 2023-11-22 10:01:00 Jet Aguilar [facility] MAGNESIUM 2023-11-22 10:01:00 Jet Aguilar [facility] THYROID STIMULATING HORMONE 2023-11-22 10:01:00 Radha [facility] MAGNESIUM 2023-11-22 10:01:00 Jet Aguilar [facility] THYROID STIMULATING HORMONE 2023-11-22 10:01:00 Radha [facility] BASIC METABOLIC PANEL (NA, K, CL, CO2, GLUCOSE, BUN, CREATININE, CA) 2023-11-22 10:01:00 Jet Aguilar [facility] CBC WITH DIFF 2023-11-22 10:01:00 Jet Aguilar [facility] CBC WITHOUT DIFF 2023-11-21 16:46:00 Jet Aguilar [facility] CBC WITHOUT DIFF 2023-11-21 16:46:00 Jet Aguilar [facility] RETROPERITONEAL LIMITED 2023-11-21 12:03:00 [place] [facility] RETROPERITONEAL LIMITED 2023-11-21 12:03:00 [place] [facility] PREPARE PACKED RBC 2023-11-21 11:09:04 [facility] 2023-11-21 11:09:04 [facility]H CONFIRMATION (LAB ONLY) 2023-11-21 10:16[facility]00 [facility] (LAB ONLY) 2023-11-21 10:16:[address] [facility]ING 2023-11-21 10:05:00 Thelma Davidson [facility] HB ABO GROUPING 2023-11-21 10:05:00 Thelma Davidson [facility] CBC WITHOUT DIFF 2023-11-21 09:34:00 King Davidson [facility] CBC WITHOUT DIFF 2023-11-21 09:34:00 King Davidson [facility] CBC WITH DIFF 2023-11-21 08:51:00 [place] Davidson [facility] BASIC METABOLIC PANEL (NA, K, CL, CO2, GLUCOSE, BUN, CREATININE, CA) 2023-11-21 08:51:00 [place] Davidson [facility] MAGNESIUM 2023-11-21 08:51:00 [place] Davidson [facility] MAGNESIUM 2023-11-21 08:51:00 [facility] BASIC METABOLIC PANEL (NA, K, CL, CO2, GLUCOSE, BUN, CREATININE, CA) 2023-11-21 08:51:00 Kirk Davidsonmehdi [facility] CBC WITH DIFF 2023-11-21 08:51:00 Kirk Davidsonmehdi [facility] LACTIC ACID WHOLE BLOOD 2023-11-21 04:02[facility]11-21 04:02[facility]00 [facility] 2023-11-21 03:55:00 [facility] 2023-11-21 03:55[facility]00 [facility] / [facility]R 2023-11-21 03:05:00 Lety [facility] ACTIVATED PARTIAL THRMPLAS JESUS MANUEL 2023-11-21 03:05:00 [facility] 2023-11-21 03:05:00 Lety [facility] VITAMIN B12, LEVEL 2023-11-21 03:05:00 Kiera Davidson [facility] FOLATE 2023-11-21 03:05:00 Lety [facility] LACTATE DEHYDROGENASE 2023-11-21 03:05:00 [facility] BASIC METABOLIC PANEL (NA, K, CL, CO2, GLUCOSE, BUN, CREATININE, CA) 2023-11-21 03:05:00 [place] [facility] ETHANOL 2023-11-21 03:05:00 [facility]GE[facility]SE 2023-11-21 03:05:00 Lety [facility] VITAMIN B12, LEVEL 2023-11-21 03:05:00 Kiera Davidson [facility] FOLATE 2023-11-21 03:05:00 Lety, Anirudha [facility] BASIC METABOLIC PANEL (NA, K, CL, CO2, GLUCOSE, BUN, CREATININE, CA) 2023-11-21 03:05:00 [place] [facility] IRON PANEL 2023-11-21 03:05:00 [place] [facility] ETHANOL 2023-11-21 03:05:00 Lety cristy [facility] PROTHROMBIN TIME / INR 2023-11-21 03:05:00 [facility] ACTIVATED PARTIAL THRMPLAS JESUS MANUEL 2023-11-21 03:05:00 Lety [facility] URINE CULTURE 2023-11-21 02:54:00 Lety [facility] URINE CULTURE 2023-11-21 02:54:00 Lety [facility] POCT GLUCOSE (AUTOMATED) 2023-11-21 01:29:00 Stefanie Johnson [facility] POCT GLUCOSE (AUTOMATED) 2023-11-21 01:29:00 Stefanie Johnson [facility] POCT GLUCOSE (AUTOMATED) 2023-11-20 23:13:00 Joleen Chinchilla [facility] POCT GLUCOSE (AUTOMATED) 2023-11-20 23:13:00 Joleen Chinchilla [facility] INFLUENZA A/B RSV COVID NAAT 2023-11-20 22:31:00 Pablo Chinchilla [facility] LAB ONLY COVID INTERPRETATION 2023-11-20 22:31:00 Pablo Chinchilla [facility] INFLUENZA A/B RSV COVID NAAT 2023-11-20 22:31:00 Pablo Chinchilla [facility] LAB ONLY COVID INTERPRETATION 2023-11-20 22:31:00 Pablo Chinchilla [facility] POCT GLUCOSE(AGE >30DAYS) 2023-11-20 21:25:00 Pablo Chinchilla [facility] POCT GLUCOSE(AGE >30DAYS) 2023-11-20 21:25:00 Pablo Chinchilla [facility] POCT GLUCOSE (AUTOMATED) 2023-11-20 21:21:00 Joleen Chinchilla [facility] POCT GLUCOSE (AUTOMATED) 2023-11-20 21:21:00 Joleen Chinchilla [facility] URINALYSIS 2023-11-20 21:14:00 Pablo Chinchilla [facility] URINE DRUG (IMMUNOASSAY) - COMPREHENSIVE DRUG SCREEN 2023-11-20 21:14:00 [place] [facility] URINE DRUG (IMMUNOASSAY) - COMPREHENSIVE DRUG SCREEN 2023-11-20 21:14:00 [place] [facility] URINALYSIS 2023-11-20 21:14:00 Pablo Chinchilla [facility] CT ABDOMEN PELVIS WO CONTRAST 2023-11-20 19:45:00 Pablo Chinchilla [facility] CT ABDOMEN PELVIS WO CONTRAST 2023-11-20 19:45:00 Pablo Chinchilla [facility] COMP. METABOLIC PANEL ([id number]) 2023-11-20 18:25:00 Pablo Chinchilla [facility] TROPONIN I 2023-11-20 18:25:00 Pablo Chinchilla [facility] LIPASE 2023-11-20 18:25:00 Pablo Chinchilla [facility] MAGNESIUM 2023-11-20 18:25:00 Pablo Chinchilla [facility] PHOSPHORUS 2023-11-20 18:25:00 [place] [facility] FERRITIN SERUM 2023-11-20 18:25:00 John Davidson [facility] PHOSPHORUS 2023-11-20 18:25:00 [place] [facility] LIPASE 2023-11-20 18:25:00 Pablo Chinchilla [facility] MAGNESIUM 2023-11-20 18:25:00 Pablo Chinchilla [facility] FERRITIN SERUM 2023-11-20 18:25:00 John Davidson [facility] TROPONIN I 2023-11-20 18:25:00 Pablo Chinchilla [facility] COMP. METABOLIC PANEL ([id number]) 2023-11-20 18:25:00 Pablo Chinchilla [facility] LACTIC ACID WHOLE BLOOD 2023-11-20 17:16:00 Kerry Chinchilla [facility] LACTIC ACID WHOLE BLOOD 2023-11-20 17:16:00 Kerry Chinchilla [facility] CBC WITH DIFF 2023-11-20 17:15:00 Pablo Chinchilla [facility] RETICULOCYTES AUTOMATED 2023-11-20 17:15:00 [place] Davidson [facility] CBC WITH DIFF 2023-11-20 17:15:00 Pablo Chinchilla [facility] RETICULOCYTES AUTOMATED 2023-11-20 17:15:00 [place] Davidson [facility] HB ECG ROUTINE & RHYTHM STRIP 2023-11-20 16:55:53 Pablo Chinchilla [facility] HB ECG ROUTINE & RHYTHM STRIP 2023-11-20 16:55:53 Pablo Chinchilla [facility] Encounters Start Date/Time End Date/Time Encounter Type Admission Type Attending Clinicians Care Facility Care Department Encounter ID Source 2024-01-01 00:00:00 2024-01-01 15:07:16 Transition of Care Cinthya Andrade Laura [facility] 1..840.114 350.1.13.10 4.2.7.2.686 [id number] [facility] 2023-12-03 02:17:00 2023-12-29 17:30:00 Hospital Encounter Jr Saravia Joshua [facility] ([facility]) 1..840.114 350.1.13.10 4.2.7.2.686 [id number] [facility] 2023-12-03 19:47:00 2023-12-04 02:11:00 Anesthesia Event Wilton, Kentrell Carvalho, Bashir 1.2.840.1 67854.1.1 3.104.2.7 .3.109858 .8 [id number] [facility] 2023-12-03 19:25:00 2023-12-03 22:35:00 Surgery IlajocelyneTaylor [facility] 1.2.840.114 350.1.13.10 4.2.7.2.686 [id number] [facility] 2023-12-03 13:33:01 2023-12-03 13:33:01 Anesthesia Event Lopez Russ 1.2.840.1 39307.1.1 3.104.2.7 .3.016515 .8 [id number] [facility] 2023-12-03 00:00:00 2023-12-03 00:00:00 Travel 1.2.840.1 45812.1.1 3.104.2.7 .3.176105 .8 1.2.840.114 350.1.13.10 4.2.7.3.698 [id number] [facility] 2023-11-28 00:00:00 2023-11-28 10:13:02 Telephone Ivan Rogers 1.2.840.1 67082.1.1 3.104.2.7 .3.142004 .8 [id number] [facility] 2023-11-24 00:00:00 2023-11-24 11:30:21 Transition of Care Dasiy Nelson 1.2.840.1 27986.1.1 3.104.2.7 .3.169805 .8 [id number] [facility] 2023-11-20 11:14:00 2023-11-23 19:45:00 Inpatient X RICHELLE, ALEX CAMP [facility] Y[facility] [id number] [facility] 2023-11-20 11:14:00 2023-11-23 19:45:00 Hospital Encounter Pablo ChinchillaStefanie jasmine Leah Elizabeth 1.2.840.1 52354.1.1 3.104.2.7 .3.913086 .8 [id number] [facility] 2023-11-20 00:00:00 2023-11-20 00:00:00 Travel 1.2.840.1 01798.1.1 3.104.2.7 .3.867212 .8 1.2.840.114 350.1.13.10 4.2.7.3.698 084.8 [id number] [facility] Results Test Description Test Time Test Comments Results Resul t Comments Source CT ABDOMEN PELVIS W CONTRAST 2023-11-27 9 23:22:18 EXAM: CT ABDOMEN PELVIS W CONTRAST HISTORY: 73 years-old Female with Abdominal abscess/infection suspected .PMH afib not on medication, BMI 57, severe constipation c/b hollow viscusperforation s/p ex lap on 12/03/23 with fecal disimpaction, closure of rectalperforation, Heidi's procedure (sigmoidectomy with end sigmoidcolostomy). Ex lap significant for feculent peritonitis. TECHNIQUE: Contiguous axial imaging from the level of the lung basesthrough the proximal thighs was performed with intravenous contrast.Coronal and sagittal reconstructions were obtained. COMPARISON: CT abdomen and pelvis dated back to 11/20/2023 FINDINGS: LOWER THORAX: Unchanged small left and trace right pleural effusions withassociated atelectatic changes, overlying aspiration cannot be excluded.Coronary artery and mitral valve calcifications. Mild cardiomegaly. LIVER: Normal size liver with unremarkable contours. No hepatic masses. GALLBLADDER AND BILIARY TREE: The gallbladder is distended with a largeintraluminal stone, unchanged. No biliary ductal dilatation. SPLEEN: No splenomegaly. Calcified granuloma. PANCREAS: Unremarkable. ADRENAL GLANDS: No adrenal nodules. KIDNEYS: No obstructing stone or solid masses. No hydronephrosis. PELVIS/BLADDER: The bladder is underdistended, limiting evaluation. GI TRACT/PERITONEUM AND RETROPERITONEUM: Status post sigmoidectomy with andcolostomy at the left lower quadrant and rectal perforation repair withHartman pouch in the left mid abdomen. Interval decompression of the rectalburden. However there is persistent rectal wall thickening and perirectalfat stranding. There is interval decrease in size of the fluid and aircollection anterior to the rectum without definitive organized wall(301:89). The entirety of this fluid collection is difficult to obtain dueto significant photon starvation artifacts. Mild improvement in thesurrounding fat stranding and edema. Almost complete resolution of thepreviously seen intraperitoneal free air. Again seen is moderate sized typeIII hiatal hernia. No bowel dilatation. 2 drainage catheter with tipsending in the pelvis and left paracolic gutter, grossly unchanged inpositioning. LYMPH NODES: No lymphadenopathy. VESSELS: Moderate aortoiliac atherosclerotic calcifications. 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 BONES AND SOFT TISSUES: No aggressive osseous lesions. Diffuse osteopenia.An open wound/soft tissue defect extending from the left mid abdomen to theupper pelvis is seen. Dependent subcutaneous edema. [facility]14 03:40:13* Test Item Value Reference Range Interpretation Comme [facility] APTT Patient (test code = 3173-2) 40 26-36 H Lab Interpretation (test cod e = 11967-3) [facility]normal [facility]2023-12-12 20:11:22* Test Item Value Reference Range Interpretation Comme [facility] APTT Patient (test code = 3173-2) 55 26-36 H Lab Interpretation (test cod e = 73155-6) Abnormal [facility]X+NA+K+GLU+CA2+2023-12-12 02:38:42* Test Item Value Reference Range Interpretation Comme [facility] PH (test code = 2) 7.25 7.35-7.45 L PCO2 (test code = 0273467359) 39 35-45 PO2 (test code = 5263595612) 404 80-100 H HCO3 (test code = 6448836068) 17 22-26 L BE (test code = 0150023908) -9.8 -3.0-3.0 L THB (test code = 5990187057) 11.7 g/dL 12.0-16.0 L %O2HB (test code = 7391096034) 98.2 % 94.0-99.0 %COHB ART (test code = 0327236167) 1.4 % 0.0-1.5 %METHB ART (test code = 5325733389) 0.3 % 0.4-1.5 L VOL%O2 ART (test code = 6899037047) 17.2 % 15.0-23.0 QUES NA (test code = 8878568453) 133 mmol/L 135-145 L K+ (test code = 6407313306) 5.0 mmol/L 3.5-5.0 AC CA IONZ (test code = 6851519287) 4.70 mg/dL 4.50-5.30 GLUCOSE (test code = 1742089066) 125 mg/dL 70-110 H Lab Interpretation (test cod e = 84410-9) [facility]normal [facility]NA+K+GLU+CA2+2023-12-12 02:38:22* Test Item Value Reference Range Interpretation Comme nts PH (test code = 2) 7.29 7.35-7.45 L PCO2 (test code = 4012160096) 41 35-45 PO2 (test code = 8918376773) 342 80-100 H HCO3 (test code = 4555434240) 19 22-26 L BE (test code = 0279549248) -7.1 -3.0-3.0 L THB (test code = 0386867558) 11.3 g/dL 12.0-16.0 L %O2HB (test code = 0922043192) 98.7 % 94.0-99.0 %COHB ART (test code = 8830928333) 1.0 % 0.0-1.5 %METHB ART (test code = 2720631711) 0.3 % 0.4-1.5 L VOL%O2 ART (test code = 8489362267) 16.6 % 15.0-23.0 QUES NA (test code = 9703442939) 135 mmol/L 135-145 K+ (test code = 9190835636) 4.9 mmol/L 3.5-5.0 AC CA IONZ (test code = 0680192876) 4.70 mg/dL 4.50-5.30 GLUCOSE (test code = 1382537695) 130 mg/dL 70-110 H Lab Interpretation (test cod e = 29516-1) Abnormal [facility]+NA+K+GLU+CA2+2023-12-12 02:37:06* Test Item Value Reference Range Interpretation Comme nts PH (test code = 2) 7.35 7.35-7.45 PCO2 (test code = 7169161644) 37 35-45 PO2 (test code = 9632551171) 461 80-100 H HCO3 (test code = 2720249374) 20 22-26 L BE (test code = 3730348097) -5.0 -3.0-3.0 L THB (test code = 0722762199) 8.1 g/dL 12.0-16.0 LL %O2HB (test code = 3075296671) 98.2 % 94.0-99.0 %COHB ART (test code = 5333575818) 1.2 % 0.0-1.5 %METHB ART (test code = 6621517219) 0.3 % 0.4-1.5 L VOL%O2 ART (test code = 9733269311) 12.5 % 15.0-23.0 L QUES NA (test code = 2192468743) 133 mmol/L 135-145 L K+ (test code = 7187599450) 4.9 mmol/L 3.5-5.0 AC CA IONZ (test code = 9375504540) 4.70 mg/dL 4.50-5.30 GLUCOSE (test code = 3091443714) 119 mg/dL 70-110 H Lab Interpretation (test cod e = 21023-9) Abnormal [facility]2024-[facility]-16 21:16:12* Test Item Value Reference Range Interpretation Comme [facility] APTT Patient (test code = 3173-2) 38 26-36 H Lab Interpretation (test cod e = 87648-4) Abnormal [facility] / [id number] 21:13:33* Test Item Value Reference Range Interpretation Comme [facility] PROTIME PATIENT (test code = 5964-2) 32.4 10.1-12.6 H INR (test code = 6301-6) 3.0 Normal INR <1.1; Warfarin Therapeutic range 2.0 to 3.0 or 2.5 to 3.5, depending upon the indications. Lab Interpretation (test code = 99488-0) Abnormal [facility] with [id number] 09:14:16* Test Item Value Reference Range Interpretation Comme nts WBC (test code = 6690-2) 13.52 4.30-11.10 H RBC (test code = 789-8) 3.37 3.93-5.25 L HGB (test code = 718-7) 8.4 g/dL 11.6-15.0 L HCT (test code = 4544-3) 26.7 % 35.7-45.2 L MCV (test code = 787-2) 79.2 fL 80.6-95.5 L MCH (test code = 785-6) 24.9 pg 25.9-32.8 L MCHC (test code = 786-4) 31.5 g/dL 31.6-35.1 L RDW-SD (test code = 25029-1) 59.1 fL 39.0-49.9 H RDW-CV (test code = 788-0) 21.9 % 12.0-15.5 H PLT (test code = 777-3) 367 166-358 H MPV (test code = 85586-9) 9.2 fL 9.5-12.9 L NRBC/100 WBC (test code = 7650804142) 0.5 0.0-10.0 NRBC x10^3 (test code = 5248942729) 0.07 See_Comment [Automated message] The system which generated this result transmitted reference range: 10*3/?L. The reference range was not used to interpret this result as normal/abnormal. GRAN MAT (NEUT) % (test code = 770-8) 79.5 % IMM GRAN % (test code = 9881272684) 5.30 % LYMPH % (test code = 736-9) 10.6 % MONO % (test code = 5905-5) 4.1 % EOS % (test code = 713-8) 0.4 % BASO % (test code = 706-2) 0.1 % GRAN MAT x10^3(ANC) (test code = 9153424281) 10.75 10*3/uL 1.88-7.09 H IMM GRAN x10^3 (test code = 9764111889) 0.72 10*3/uL 0.00-0.06 H LYMPH x10^3 (test code = 731-0) 1.43 10*3/uL 1.32-3.29 MONO x10^3 (test code = 742-7) 0.55 10*3/uL 0.33-0.92 EOS x10^3 (test code = 711-2) 0.05 10*3/uL 0.03-0.39 BASO x10^3 (test code = 704-7) 0.01-0.07 Lab Interpretation (test code = 10439-0) Abnormal [facility]2024-[facility]-16 08:56:49* Test Item Value Reference Range Interpretation Comme nts MAGNESIUM (test code = 3415066735) 1.8 mg/dL 1.7-2.4 Lab Interpretation (test cod e = 92306-7) Normal [facility]2024-09-16 08:56:49* Test Item Value Reference Range Interpretation Comme nts PHOSPHORUS (test code = 6353841814) 2.4 mg/dL 2.5-5.0 L Lab Interpretation (test cod e = 99792-3) Abnormal [facility] Met[facility] (NA, K, CL, CO2, GLUCOSE, BUN, CREATININE, CA)2023-12-11 08:56:49* Test Item Value Reference Range Interpretation Comme nts NA (test code = 6381953474) 141 mmol/L 135-145 K (test code = 7702853606) 3.1 mmol/L 3.5-5.0 L CL (test code = 9452807452) 112 mmol/L 98-108 H CO2 TOTAL (test code = 4114077762) 19 mmol/L 23-31 L AGAP (test code = 2767767344) 10 2-16 BUN (test code = 4305832874) 29 mg/dL 7-23 H GLUCOSE (test code = 1335269272) 126 mg/dL 70-110 H CREATININE (test code = 2160-0) 0.72 mg/dL 0.50-1.04 CALCIUM (test code = 0745820953) 8.3 mg/dL 8.6-10.6 L eGFR (test code = 93854-5) 87.3 mL/min/1.73m2 CKD-EPI eGFR (2020). Assuming creatinine has been stable day-to-day for at least three months, the eGFR indicates Category G2 (60 - 89 mL/min/1.73 m2) Lab Interpretation (test code = 79218-9) Abnormal [facility] AustinXR CHEST 1 [id number] 04:11:52ORDERING PHYSICIAN: TONEY ELKINS HISTORY: respiratory monitoring TECHNIQUE: AP view of the chest COMPARISON: XR CHEST 1 VW on DOS: 12/09/23 FINDINGS: Frontal view of the chest is obtained in a rotated position. Worsening basilar predominant pulmonary opacities and suspected small bilateral pleuraleffusions. No pneumothorax. ? ? ?Stable prominence of the cardiac silhouette. Aortic atherosclerosis. The osseous structures appear unchanged.[facility] Austin[facility]b with [id number] 09:00:36* Test Item Value Reference Range Interpretation Comme nts WBC (test code = 6690-2) 14.71 4.30-11.10 H RBC (test code = 789-8) 3.32 3.93-5.25 L HGB (test code = 718-7) 8.3 g/dL 11.6-15.0 L HCT (test code = 4544-3) 25.7 % 35.7-45.2 L MCV (test code = 787-2) 77.4 fL 80.6-95.5 L MCH (test code = 785-6) 25.0 pg 25.9-32.8 L MCHC (test code = 786-4) 32.3 g/dL 31.6-35.1 RDW-SD (test code = 06916-8) 60.0 fL 39.0-49.9 H RDW-CV (test code = 788-0) 22.1 % 12.0-15.5 H PLT (test code = 777-3) 398 166-358 H MPV (test code = 93586-3) 9.0 fL 9.5-12.9 L NRBC/100 WBC (test code = 9003979636) 0.5 0.0-10.0 NRBC x10^3 (test code = 9993824196) 0.07 See_Comment [Automated message] The system which generated this result transmitted reference range: 10*3/?L. The reference range was not used to interpret this result as normal/abnormal. GRAN MAT (NEUT) % (test code = 770-8) 79.6 % IMM GRAN % (test code = 6966058135) 5.90 % LYMPH % (test code = 736-9) 10.4 % MONO % (test code = 5905-5) 3.9 % EOS % (test code = 713-8) 0.1 % BASO % (test code = 706-2) 0.1 % GRAN MAT x10^3(ANC) (test code = 1846063256) 11.69 10*3/uL 1.88-7.09 H IMM GRAN x10^3 (test code = 8730853753) 0.87 10*3/uL 0.00-0.06 H LYMPH x10^3 (test code = 731-0) 1.53 10*3/uL 1.32-3.29 MONO x10^3 (test code = 742-7) 0.58 10*3/uL 0.33-0.92 EOS x10^3 (test code = 711-2) 0.03-0.39 L BASO x10^3 (test code = 704-7) 0.01-0.07 TARGET CELLS (test code = 71011-8) 2+ See_Comment A [Automated message] The system which generated this result transmitted reference range: (none). The reference range was not used to interpret this result as normal/abnormal. Lab Interpretation (test code = 19801-7) Abnormal [facility]2024-09-15 08:41:44* Test Item Value Reference Range Interpretation Comme nts MAGNESIUM (test code = 3817673601) 2.0 mg/dL 1.7-2.4 Lab Interpretation (test cod e = 06768-3) Normal [facility]2024-09-15 08:41:44* Test Item Value Reference Range Interpretation Comme nts PHOSPHORUS (test code = 6043654808) 3.5 mg/dL 2.5-5.0 Lab Interpretation (test cod e = 04030-0) Normal [facility] (NA, K, CL, CO2, GLUCOSE, BUN, CREATININE, CA)2023-12-10 08:41:44* Test Item Value Reference Range Interpretation Comme nts NA (test code = 8433988893) 139 mmol/L 135-145 K (test code = 0849245096) 3.3 mmol/L 3.5-5.0 L CL (test code = 9553854704) 112 mmol/L 98-108 H CO2 TOTAL (test code = 8246782345) 19 mmol/L 23-31 L AGAP (test code = 9378249389) 8 2-16 BUN (test code = 2609889882) 38 mg/dL 7-23 H GLUCOSE (test code = 5574452271) 135 mg/dL 70-110 H CREATININE (test code = 2160-0) 1.02 mg/dL 0.50-1.04 CALCIUM (test code = 6765119864) 8.3 mg/dL 8.6-10.6 L eGFR (test code = 82273-2) 57.5 mL/min/1.73m2 CKD-EPI eGFR (2020). Assuming creatinine has been stable day-to-day for at least three months, the eGFR indicates Category G3a (45 - 59 mL/min/1.73 m2) Lab Interpretation (test code = 07236-3) Abnormal [facility]XR [id number] 22:37:49EXAM: XR KUB, XR CHEST 1 12/08/2023 9:47 PM COMPARISON: None available. HISTORY: dark emesis FINDINGS:The lungs are well-expanded. Vascular congestion is seen. The cardiac sizeis enlarged. There isno pneumothorax. There may be trace left pleuraleffusion. The stomach is mildly distended with gas.Again multiple loops of mildlydilated small bowel are noted which could represent continued the smal lbowel obstruction. Paucity of gas in the rectum.[facility] 1 [id number] 22:37:49EXAM: XR KUB, XR CHEST 1 VW 12/08/2023 9:47 PM COMPARISON: None available. HISTORY: dark emesis FINDINGS:The lungs are well- expanded. Vascular congestion is seen. The cardiac sizeis enlarged. There isno pneumothorax. There may be trace left pleuraleffusion. The stomach is mildly distended with gas.Again multiple loops of mildlydilated small bowel are noted which could represent continued the smallbowel obstruction. Paucity of gas in the rectum.[facility] with [id number] 10:34:43* Test Item Value Reference Range Interpretation Comme nts WBC (test code = 6690-2) 20.92 4.30-11.10 H RBC (test code = 789-8) 3.83 3.93-5.25 L HGB (test code = 718-7) 9.4 g/dL 11.6-15.0 L HCT (test code = 4544-3) 29.1 % 35.7-45.2 L MCV (test code = 787-2) 76.0 fL 80.6-95.5 L MCH (test code = 785-6) 24.5 pg 25.9-32.8 L MCHC (test code = 786-4) 32.3 g/dL 31.6-35.1 RDW-SD (test code = 09288-4) 59.7 fL 39.0-49.9 H RDW-CV (test code = 788-0) 22.6 % 12.0-15.5 H PLT (test code = 777-3) 478 166-358 H MPV (test code = 22446-8) 9.3 fL 9.5-12.9 L NRBC/100 WBC (test code = 8722131225) 0.4 0.0-10.0 NRBC x10^3 (test code = 1502930002) 0.09 See_Comment [Automated message] The system which generated this result transmitted reference range: 10*3/?L. The reference range was not used to interpret this result as normal/abnormal. GRAN MAT (NEUT) % (test code = 770-8) 81.2 % IMM GRAN % (test code = 3122231070) 6.60 % LYMPH % (test code = 736-9) 8.7 % MONO % (test code = 5905-5) 3.1 % EOS % (test code = 713-8) 0.1 % BASO % (test code = 706-2) 0.3 % GRAN MAT x10^3(ANC) (test code = 5109931995) 16.97 10*3/uL 1.88-7.09 H IMM GRAN x10^3 (test code = 1388898508) 1.39 10*3/uL 0.00-0.06 H LYMPH x10^3 (test code = 731-0) 1.83 10*3/uL 1.32-3.29 MONO x10^3 (test code = 742-7) 0.64 10*3/uL 0.33-0.92 EOS x10^3 (test code = 711-2) 0.03-0.39 L BASO x10^3 (test code = 704-7) 0.07 10*3/uL 0.01-0.07 PATRIZIA CELLS (test code = 7790-9) 2+ See_Comment A [Automated message] The system which generated this result transmitted reference range: (none). The reference range was not used to interpret this result as normal/abnormal. TARGET CELLS (test code = 37207-6) 2+ See_Comment A [Automated message] The system which generated this result transmitted reference range: (none). The reference range was not used to interpret this result as normal/abnormal. Lab Interpretation (test code = 30451-6) [facility]normal [facility] 10:08:11* Test Item Value Reference Range Interpretation Comme nts MAGNESIUM (test code = 8385144898) 1.9 mg/dL 1.7-2.4 Lab Interpretation (test cod e = 05396-7) Normal [facility]2024-[facility]14 10:08:11* Test Item Value Reference Range Interpretation Comme nts PHOSPHORUS (test code = 2799262487) 4.4 mg/dL 2.5-5.0 Lab Interpretation (test cod e = 23689-6) Normal [facility] Met[facility] (NA, K, CL, CO2, GLUCOSE, BUN, CREATININE, CA)2023-12-09 10:08:11* Test Item Value Reference Range Interpretation Comme nts NA (test code = 1069070658) 139 mmol/L 135-145 K (test code = 9386395096) 3.3 mmol/L 3.5-5.0 L CL (test code = 3966409561) 108 mmol/L 98-108 CO2 TOTAL (test code = 0409593329) 17 mmol/L 23-31 L AGAP (test code = 6555986069) 14 2-16 BUN (test code = 8570317654) 38 mg/dL 7-23 H GLUCOSE (test code = 0553819358) 103 mg/dL 70-110 CREATININE (test code = 2160-0) 1.30 mg/dL 0.50-1.04 H CALCIUM (test code = 7363186042) 8.3 mg/dL 8.6-10.6 L eGFR (test code = 26831-2) 43.0 mL/min/1.73m2 CKD-EPI eGFR (2020). Assuming creatinine has been stable day-to-day for at least three months, the eGFR indicates Category G3b (30 - 44 mL/min/1.73 m2) Lab Interpretation (test code = 43496-3) Abnormal [facility] Austin[facility] ABDOM[facility] PELVIS W [id number] 23:07:14CT ABDOMEN PELVIS W CONTRAST 12/08/2023 10:55 AM HISTORY: persistent white count, PO and IV contrastCOMPARISON: CT abdomen and pelvis dated 12/03/2023, 12/02/2023 and 11/20/2023. TECHNIQUE: Axial images of the abdomen and pelvis were acquired afteradministration of intravenous contrast. Coronal and sagit talreconstructions were also created. FINDINGS: Limited study due to body habitus and undercoverageof the left side of theabdominal wall. LOWER CHEST: There is been interval development of left greater than rightbilateral small pleural effusions with underlying lung atelectasis. Rightbasal calcified granulomas are again noted. Coronary and mitral valvecalcifications. Central venous catheter is seen at the cavoatrial junction.Mild cardiomegaly. HEPATOBILIARY: The liver is normal in size. No focal hepatic lesion.Distended gallbladder with intraluminal large stone is again noted. Thegallbladdercontents are denser than prior that may be due to vicariousexcretion of contrast or gallbladder sludge.No biliary ductal dilatation. SPLEEN: Normal in size. ?No lesion. Calcified granuloma is noted. PANCREAS: The parenchyma is unremarkable. No ductal dilatation. No masses. ADRENAL GLANDS: No adrenal nodules. KIDNEYS: There has been interval resolution of left hydroureteronephrosis.The previously noted mild/moderate right hydroureteronephrosis is lessprominent compared to prior. No stone or solid mass. GI TRACT/PERITONEUM AND RETROPERITONEUM: Status post sigmoidectomy with endcolostomy, fecal disimpaction and rectal perforation repair. Heidi'spouch is seen in mid abdomen. The rectum appears less distended compared toprior with mild fecal loading. There is a small volume fluid and aircollection anterior to the rectum without definite organized wall (301:98).Surrounding edema, fat stranding and small free air foci are also noted,may represent postoperative changes. The amount of intraperitoneal free airis less than prior study. Partially visualized left lower colostomy.Moderate-sized hiatus hernia is again noted. There is dilatation of thestomach and small bowel loop showing air-fluid levels with gradualtransition zone within the mid abdomen. The appendix is normal. There are 2drainage tubes with the tips ending in the pelvis and the left paracolicgutter. LYMPH NODES: No lymphadenopathy is seen. PELVIS/BLADDER: The urinary bladder is empty with intraluminal Foleycatheter. VESSELS: Moderate aortoiliac atherosclerotic calcifications. 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 BONES AND SOFT TISS UES: No aggressive osseous lesion. Diffuse heterogeneouspatchy osteopenia. There is dehiscence overthe anterior abdominal wallsurgical wound, partially visualized. Dependent subcutaneous edema isnoted.[facility] AustinXR CHEST 1 [id number] 19:22:20Study: Single view chest. Ordering Physician: DONA ELKINS Date: 12/08/2023 4:00 AM History:respiratory monitoring COMPARISON: 12/07/2023 Findings: Single frontal view chest demonstrates mild cardiomegaly. Patchyleft basilar atelectasis is identified. The lungs are otherwise clearwithout infiltrate, pleural effusion or pneumothorax. The right internaljugular venous catheter terminates over the distal superior vena cava. [facility] AustinCb with Rmff1046-46-73 09:56:35* Test Item Value Reference Range Interpretation Comme nts WBC (test code = 6690-2) 16.57 4.30-11.10 H RBC (test code = 789-8) 3.75 3.93-5.25 L HGB (test code = 718-7) 9.0 g/dL 11.6-15.0 L HCT (test code = 4544-3) 28.5 % 35.7-45.2 L MCV (test code = 787-2) 76.0 fL 80.6-95.5 L MCH (test code = 785-6) 24.0 pg 25.9-32.8 L MCHC (test code = 786-4) 31.6 g/dL 31.6-35.1 RDW-SD (test code = 78448-9) 59.4 fL 39.0-49.9 H RDW-CV (test code = 788-0) 22.2 % 12.0-15.5 H PLT (test code = 777-3) 444 166-358 H MPV (test code = 89148-6) 8.9 fL 9.5-12.9 L NRBC/100 WBC (test code = 4240583274) 0.5 0.0-10.0 NRBC x10^3 (test code = 2021139530) 0.08 See_Comment [Automated message] The system which generated this result transmitted reference range: 10*3/?L. The reference range was not used to interpret this result as normal/abnormal. GRAN MAT (NEUT) % (test code = 770-8) 79.7 % IMM GRAN % (test code = 4691168899) 5.90 % LYMPH % (test code = 736-9) 9.8 % MONO % (test code = 5905-5) 4.2 % EOS % (test code = 713-8) 0.2 % BASO % (test code = 706-2) 0.2 % GRAN MAT x10^3(ANC) (test code = 8705228178) 13.21 10*3/uL 1.88-7.09 H IMM GRAN x10^3 (test code = 0017482563) 0.98 10*3/uL 0.00-0.06 H LYMPH x10^3 (test code = 731-0) 1.63 10*3/uL 1.32-3.29 MONO x10^3 (test code = 742-7) 0.69 10*3/uL 0.33-0.92 EOS x10^3 (test code = 711-2) 0.03 10*3/uL 0.03-0.39 BASO x10^3 (test code = 704-7) 0.03 10*3/uL 0.01-0.07 Lab Interpretation (test code = 18998-7) Abnormal [facility]2024-09-13 09:36:27* Test Item Value Reference Range Interpretation Comme nts MAGNESIUM (test code = 8548913778) 2.0 mg/dL 1.7-2.4 Lab Interpretation (test cod e = 00022-8) Normal [facility]2024-09-13 09:36:27* Test Item Value Reference Range Interpretation Comme nts PHOSPHORUS (test code = 9210935991) 4.6 mg/dL 2.5-5.0 Lab Interpretation (test cod e = 43778-2) Normal [facility] (NA, K, CL, CO2, GLUCOSE, BUN, CREATININE, CA)2023-12-08 09:36:27* Test Item Value Reference Range Interpretation Comme nts NA (test code = 5681323622) 138 mmol/L 135-145 K (test code = 2512506763) 3.2 mmol/L 3.5-5.0 L CL (test code = 3353040938) 108 mmol/L 98-108 CO2 TOTAL (test code = 0882600302) 19 mmol/L 23-31 L AGAP (test code = 6423832644) 11 2-16 BUN (test code = 3265353091) 38 mg/dL 7-23 H GLUCOSE (test code = 0624458670) 92 mg/dL 70-110 CREATININE (test code = 2160-0) 1.41 mg/dL 0.50-1.04 H CALCIUM (test code = 1332355519) 7.9 mg/dL 8.6-10.6 L eGFR (test code = 07871-0) 39.0 mL/min/1.73m2 CKD-EPI eGFR (2020). Assuming creatinine has been stable day-to-day for at least three months, the eGFR indicates Category G3b (30 - 44 mL/min/1.73 m2) Lab Interpretation (test code = 86095-1) Abnormal [facility] CHEST 1 [id number] 14:51:27Study: Single view chest. Ordering Physician: DONA ELKINS Date: 12/07/2023 4:00 AM History:respiratory monitoring COMPARISON: 12/06/2023 Findings: Single frontal view chest demonstrates a normal heart size.Persistent left basilar airspace opacity is identified which may resultfrom atelectasis or pneumonia. Small pleural effusions persist. Nopneumothorax is defined. Endotracheal tube terminates 5.1 cm above thecarina. The right internal jugular venous catheter terminates over thedistal superiorvena cava.[facility] Cbc with [id number] 09:34:07* Test Item Value Reference Range Interpretation Comme nts WBC (test code = 6690-2) 15.93 4.30-11.10 H RBC (test code = 789-8) 3.51 3.93-5.25 L HGB (test code = 718-7) 8.7 g/dL 11.6-15.0 L HCT (test code = 4544-3) 26.9 % 35.7-45.2 L MCV (test code = 787-2) 76.6 fL 80.6-95.5 L MCH (test code = 785-6) 24.8 pg 25.9-32.8 L MCHC (test code = 786-4) 32.3 g/dL 31.6-35.1 RDW-SD (test code = 97324-6) 58.8 fL 39.0-49.9 H RDW-CV (test code = 788-0) 21.4 % 12.0-15.5 H PLT (test code = 777-3) 409 166-358 H MPV (test code = 03127-5) 9.2 fL 9.5-12.9 L NRBC/100 WBC (test code = 5204774314) 0.4 0.0-10.0 NRBC x10^3 (test code = 7911299266) 0.06 See_Comment [Automated message] The system which generated this result transmitted reference range: 10*3/?L. The reference range was not used to interpret this result as normal/abnormal. GRAN MAT (NEUT) % (test code = 770-8) 77.3 % IMM GRAN % (test code = 5323977422) 6.80 % LYMPH % (test code = 736-9) 11.4 % MONO % (test code = 5905-5) 4.3 % EOS % (test code = 713-8) 0.1 % BASO % (test code = 706-2) 0.1 % GRAN MAT x10^3(ANC) (test code = 9656013602) 12.30 10*3/uL 1.88-7.09 H IMM GRAN x10^3 (test code = 6287732869) 1.09 10*3/uL 0.00-0.06 H LYMPH x10^3 (test code = 731-0) 1.81 10*3/uL 1.32-3.29 MONO x10^3 (test code = 742-7) 0.69 10*3/uL 0.33-0.92 EOS x10^3 (test code = 711-2) 0.03-0.39 L BASO x10^3 (test code = 704-7) 0.01-0.07 Lab Interpretation (test code = 27019-6) Abnormal [facility] Metabolic Panel (NA, K, CL, CO2, GLUCOSE, BUN, CREATININE, CA)2023-12-07 09:19:04* Test Item Value Reference Range Interpretation Comme nts NA (test code = 0910224127) 136 mmol/L 135-145 K (test code = 8118121272) 3.3 mmol/L 3.5-5.0 L CL (test code = 8336908228) 106 mmol/L 98-108 CO2 TOTAL (test code = 2597806438) 18 mmol/L 23-31 L AGAP (test code = 9305656531) 12 2-16 BUN (test code = 2020039897) 41 mg/dL 7-23 H GLUCOSE (test code = 6121811621) 102 mg/dL 70-110 CREATININE (test code = 2160-0) 1.96 mg/dL 0.50-1.04 H CALCIUM (test code = 9165842582) 7.9 mg/dL 8.6-10.6 L eGFR (test code = 53769-2) 26.3 mL/min/1.73m2 CKD-EPI eGFR (2020). Assuming creatinine has been stable day-to-day for at least three months, the eGFR indicates Category G4 (15 - 29 mL/min/1.73 m2) Lab Interpretation (test code = 85218-9) Abnormal [facility]2024-09-12 09:19:04* Test Item Value Reference Range Interpretation Comme nts MAGNESIUM (test code = 3350808538) 2.0 mg/dL 1.7-2.4 Lab Interpretation (test cod e = 90720-7) Normal [facility]2024-09-12 09:19:04* Test Item Value Reference Range Interpretation Comme nts PHOSPHORUS (test code = 2364373799) 4.7 mg/dL 2.5-5.0 Lab Interpretation (test cod e = 44820-4) Normal [facility] AustinAC Panel 20 + Lactic Nrhe1192-31-06 08:32:46* Test Item Value Reference Range Interpretation Comme nts PH (test code = 2) 7.41 7.35-7.45 PCO2 (test code = 4862339552) 29 35-45 L PO2 (test code = 2955867094) 305 80-100 H HCO3 (test code = 6126550259) 18 22-26 L BE (test code = 3459905117) -5.8 -3.0-3.0 L THB (test code = 1976223318) 9.3 g/dL 12.0-16.0 L %O2HB (test code = 7753936703) 98.5 % 94.0-99.0 %COHB ART (test code = 8093004187) 0.9 % 0.0-1.5 %METHB ART (test code = 6868507447) 0.3 % 0.4-1.5 L VOL%O2 ART (test code = 2805328496) 13.7 % 15.0-23.0 L NA (test code = 5633286647) 138 mmol/L 135-145 K+ (test code = 0936417104) 3.4 mmol/L 3.5-5.0 L AC CA IONZ (test code = 7049391548) 4.40 mg/dL 4.50-5.30 L GLUCOSE (test code = 9655730273) 97 mg/dL 70-110 LACTIC ACID (test code = 2596505144) 1.85 mmol/L 0.50-2.20 Lab Interpretation (test cod e = 12306-5) Abnormal [facility] AustinSurgical Pathology [id number] 22:05:08* Test Item Value Reference Range Interpretation Comme nts Case Report (test code = 4507655733) Surgical Pathology ?Case: [id number] ? Authorizing Provider: ?Taylor Segundo MD ?Collected: ? 12/04/2023 0123 ?Ordering Location: ? ? [facility] OR ? Received: ?12/04/2023 08 ? Department ? Pathologist: ? Sallie Piper MD ? Specimen: ? ?LARGE INTESTINE, SIGMOID COLON, sigmoid colon ? Final Diagnosis (test code = 7740949103) g0lgbKCxZWWhh4fgSZUgtE FuZzEwMzNcZnRuYmpcdWMx RSonlfDyRUqpwDgoNYP4YU VdIC5fsPzioGt5bXwwXIRv biC2lQSkBZhyf8ibNVT2v7 gkhkzkOQOmFTrwGy6grWAo sXilHsGlFSUrMZr6lP02GF DtnB3uzQAxQOtyqzLmQFKl I9DtGB6lVTeiwUWcGDJ3US BaITL8ATlmloJoaaJ0KCay iYOdCqI0E38sgVLlTSA4LF XsWDJpfLKeOMFjPHG1MUQr dGTwT9xaIGWhLI8knjjpDL giGXsjIUTekQC4CNTbeAJt G5IaUVYeWOwbFSYjnqm6Px ZeKr2wlPKnvBxvJXigGBVt XHBsYWluXGZzMjBccGFyIE DvWGTJYH3SEECBXIoSH2aB CTCOLIyIZK3BIOyxYaVWAR MRCI8ETxpkYWBmW2TpHPVj K0JqCBGiMO2tWHh+LSBESV XROoCYJ0MCG9VUHfJUOVQK IEFDVVRFIERJVkVSVElDVU aFOZcGTNHCHBQKF2HQZCEA DJELX9iZJBZwzXLxPASqik x+GG0iIVYWX7ZDOIwJEvGQ IXTNUT6HINZDAKODMOTuyL HzAQCtVUxpkTEzcAR5KFcb YXJccGFyXGZzMjIgTWFocm VlbiBIdXNzYWluLCBNQkJT LFO7FgPzFjNdKbWiEST8Ic FlLH5fsJZtPTNtJhNvaQDl rRasqxJvQOfqg8ElP8KkNt AwMFxhbnNpXGRlZmxhbmcx YTFzAUY3wyHqHAZeAWxiNY VxVOjjAj8fbKBydKyyPpJi PLOgm6byvbBCCEtkBiXyS0 98ZZBhERxen7yuo3WsFZLr yRFzm0D7JIASsgkdwFm7j5 gsWdNyVoS2iMSjMTinH2lc ihWpdLWdH5WbaJMhhAr3aK bnT24ak2G9OyvlR7ifQKDb CMLfW3NzJG6nHMSjHqe3FG X4QQK8GBNlCMNcF8FvWJ7h LJNglQBqCFa9p4ilbNcmUN WmEVM1t8epNXbpcaU7PB7i rn5oqFp4y6xsliZvBNFvYB YaxCCZOGPaS0VfgQqbYi3f yNq9rAbyIqohZJZ7Eee5NJ 9dyj10lyo2yXcmALZclnhw LiZ2TFlgPKDempjgIRv9XX qsZNUqaGT9QNIjxMDqB8Ut YSImXW2dkjz5ISY5ZRdgIN YgIcX8TOQvaLZpZWDgcRzi WOhiv847QJC3UcQgDY8sW2 Tis4N5fY9gfOIgCJCblDFj GoSrAZBhnn1dkUUgIJcla8 KyIVQ6piT5wQCotTSsZMEi KO69Qlqph3NoFhrrPEZ9TQ IphyKws8Cnm8xsIxSzesRl D0nvI0OoWPAnSZXtVWQoSx MpkvAlr7Lza0HnkJCvaOd4 u5iwYFMfHOMibWbfv2iqTC I1DJMuI1L4eNKcz8rwUZae KKQekCP3dqK3AKHfrRUyW7 TufK2nAMKySB1mohd9l8wi HRM8QRfwHYNrDwN6yeM9LC TdhRFhAYEzfUpjWCojz602 FZA2LvAjKSXvm5NwK7FxjU kfC27qfEpmU50uFMXtbJee iT2peQupbO2cBfDiJtZhQQ xxbFxwbGFpblxmMVxmczIw LOkdyxtrHCIzFWbcX1puGu QbBGOkmWvcCXypj9YrVPTj XGNmMlxmczIwXHBhciBJIG swjaJhrWLpc38hZPkpcGMa KDOwXTyuQQDkyUhwp2HcK6 bhFB4aK1EkaCBlmdOigfCg ZMxaDLDzl3g4hPZceLozw9 NpxPFxGH75ocVeYZEiGXP8 RERzk7xfDZ24hfprFrQizF 94ipJtcmDrZPFvj2zkV3ht zCUlc5Ofk3VktbUzCIshp6 GcZK1vtAVtekdlnQD3NVGv qDYpnkMzkdL2wBrnOYEbkR 7saN7nrThtnL6tPnKbSaDs YAneEE3wNEFmN7ngpNBrEI CqIOWwH8iaBaOsiI1ntXba OrcyytJ0BZXawv91 Clinical Information (test code = 4160716956) Colon perforation [K63.1] Gross Description (test code = 0138435071) m6owvHLlAUZwfDVGBDA1FQ SfNM1tnUbanPt0nLtoIXXi xwB3hIKsSKkrm5trETH7e3 kxkgKEQpqoHIIgXS0dNCyt CLDeIQ4jOsSdEPWkGjPuTX BhcGVydzEyMjQwXHBhcGVy wXY7TLOfNH4zpmyzULnoFR nqPBHipkI9IZEbaKIkD0De QPLdZG0wvycuHHP5SMJJUy blFy7usKNmyYqzEvIiJtZd KWUfUCSnRBYxa0ihssVSdx gozNh4oO3FWREfO2ZnGW1U u3rfYKDtiHXyBED1NLrqk8 poARwnNIE6PDQhGIHjINOg US4UOjQcPNZ8UBIcUSY9Kk F5QOh1DWEVRQPgFXHwAqL8 BVB0AKy2QZRxFF8jISbljK KrHGvvJubwUAkdE599IUia KGRtF9FqG9FcOYkeOrSmGJ ynLPQaEFBgSYjnDQLqL4VS SYPxESQfCfE5LHBgGXf6TK p2ET1PEgBxUUYnVjK8PIi4 NPQtSGl4RQafRP9MLFFoFH M8HsC2GiIoUBZ5UervERp0 IDIgXFxzcyAzIFxcZmwgXF agW00ypXEeBEFMYpigeFBt blxmczIwIFNQRUNJTUVOIE JooWAnF6uoHcNpVwdqYOZd DQpccGFyZCANClxwbGFpbl xsdHJjaFxmczIyXGVwaWNO MCV6RY0vHLVORqojiXElYL DeCXsIgXAcsU6tboDBPVtb XQAuS7RgetBvUAIxUNUmET ulAfUqHSIok7f8nJQ7rHPp mWB5hYCirFzwBJ5biWXsLC RMLN18vGZkmndpFbXiC87q nSKbT55oy39tFUVwEPLhc2 6dvKD6cvUmYyKqOHPbwx0u qO6oCGUzr3IgGA24NDJjs8 VnbWVudCBvZiBsYXJnZSBi j6tjeSXtZSZwZZHtjSGfqp TxNB0fwJfvHsiuId1rFPBw CLsbMOOdTG8chHTsRDM6rK HwWA6zRYMvXJRatG2so2Fb zpTlPW6wzF2toAVyDMCis9 BqwIpyTPZmUBUniT4xANAp SCOrPPRcw9EoMEV9ahQdT1 UgaXMgcmVtYXJrYWJsZSBm u5AnUQK5GK5vM5JhMU1yGC FrFRJuCaMmmCQ5fVRaaDVr kJHbRAImVZe8pOK0mdV7Lk SlS63rxJ2fI1XvYUXie5Ja BKchBL1epA2nHSI6xAG7HZ NvbWVzIHdpdGhpbiAwLjYg Y39ug7HhcKdlZJVlm8Eci2 YijEIsA5gtGuVKvCWynbUb BGcpaX8zBXPtth0oZKPcvy Zlpdp2zVFrUZNjiNFkNOCR uLJjh6OpC8clXR6wvGWjg1 BlbmVkIHRvIHJldmVhbCBh OHUweHXimXSfjK1quoThbQ xmOGAgn7v1hQNhqi49bvZh IW9fFEPgnPqsWLDoXPLilB mdZWCwL5PpTF3tcZTqzOFp PwCJnVTwkJGjp2CiIXqvVM GmdVFgu0HexAPbZa1xLQ18 bHRpcGxlIGRpdmVydGljdW ewSBIcyBAie4t4kBEzePdp DDHta2k2kVYcc2wuPMQlNV CqeHEvPANstglxmB8jAUvg MD59M92gWTR2NFnmHP1yAJ I7tmNxMHJpUMDtEQBeIHJi gLEzmxY5zOjtr67zk6ZzUJ hlIHJlbWFpbmluZyBtdWNv v4RteRPzoOJiWITgurmhLC 5kIHVucmVtYXJrYWJsZSBm r2NoxG6exCPdUSYrSPZwx8 7oZSYugeFlnOHoVl0qNDDq o56vUmExrNGpAC1BVZTubs WSLwIvo16xtcBeAVj8YIPf xI7jnPboAEBhxcWmnB4lyg OmdlDlMKDhth6wbY2mOCPf IGRldGFjaGVkIGZyYWdtZW 38HD8dGXjsegimPOMuu1On REt1AfJyI88nkZ5ocUPlJ5 IaBYX9EDKjGJVdbMEzaeLt aWFtZXRlcikuIFRoZSBzcG OrvC4myvQlyeRknPSjRYSc eL8agtB6RGAuKZBxw7keG5 vjBAZvzqTsfMwptFq0kX1e BJnwXB20H81oBSG6YYwvKS 4wZWM6cvYqMEEqEJDoUVEb UrMuvMIjqmJ6xBacg34tx1 McSYUrTNTyXS9mkU4bprrr rMTva6OpFZhdHGZrwz6cnL 2oXHLwTOF7ouXzwBUfh0Qp oBSqBa6qJPVhaXijzvugtN WdgN1ttjwrWN7oHXJjpnTz muO7pT7kwt9guFAjHB9CQK GtfuUQMuEthLKml6CeiMD3 vJGhHYLrY3Rly53eKKVlWO MleJRyzEM2IMAcfA9eQFLl zUdrBBHkOGv1VoHxEQ2anU IjVG9HQUNlonCOMyHrM8Vm v01cI02jTPgwcDYxNA2YFM CyGIS4NJD8AZRdOMEmbYHe D0hcIUMuqjTvRPImPWMkyz LTSaQmCxLReSMaNC4dwppr rwcfEY5eJcKhVMgfFTIcMU gBLS5TQluyTWn2GQT6xAQ4 bTXfBLLvcGRud7PhaQA4xR CjFKXhswYXIeP3MeJRweuo le8mgwLeNE34C49oMGfekl YhymNhFT57DKCbmhDcoWUb GL8QNKjdJYb6WSPreRDriW LbAAGgJWvfPJ63RO9mpxcz mlNiZECbZPIcE4PpeSSbIJ 0KQTEwOiBEZXRhdGNoZWQg YpVdV96bwgZgMJJwefMyvT lfzHy5fRafqoEwrqXdYG88 YYRzvtYvlMQlLJ6KBIXbov ANCkhpbGxhcnkgUHJpbmNl JOtONKdJY3EEIZQODLRCaR RjLZ11JDLdwfCOLch7dSzz QO7zDEszIK4gnGmqQQIzUT RXQ2CaQTWraqUQDrpcMTXf QOUggKEEy9YvIYBBKzlskT aeJgKruYSyVvE0HNQgxZJz YTC1ZG1xgKsbZETeF6PaD5 PzzhX9DQCxoxKBSvzxKSHy IA0KfQ== Disclaimer (test code = 3557890161) i5sgfPQdVKLdc3qlYWHtdR FuZzEwMzNcZnRuYmpcdWMx DPdelqYxDHbax4FoF5WzHx AwMFxhbnNpXGRlZmxhbmcx FEUhNGH4rlSqIDZgHEnlSH FmWImqRe9esILqwFxiPeDi VGRzr8ttbjHXQTjoQjGwJ7 68RUBnJGjun6itd2ScLLVq yJMuh4L3YSOUngpznXb0jN prY22sp8T2IggvY6axBBOp HATzM8GyBL2iQPOxQyp9DZ N8CZM6WKXhVJMrR5LdHA5u AJDnuVSvFJn8u3cuoXegWB SlFXD9q6ykVYeyspFeZN1m cw3wvRx8l7zseeRpQHSdFZ KvuVZVOAWpV8WkkIxsEl3j wQh9uQasBvbrPXK7Cnb0TX 4vzc30zqx6iVzjSNTueqfj EsF8JYmyZQQrzcjfADg8HX arNEFucCV8RMIioTTvS0Mk SEUqWS3fwbn0KSG4RFplOC XgNmP8FKUagSWvQQEjeXpj DYnrq886SXY8ZsNsXW4pQ1 Khu6O0xD7vpFHrJPVtxQNg ZjCvTGJwat8qwVUbSFril3 GrEEP9qqX4nNAbcWArXLBk IB61Bezih9RgMozry7ArG9 7ebHM3ABaes1wgJI0jEkP3 pzAyBLkif2bjwJ3zBqQ9MC yqFF6fFZ0gSHOgdY4sznvt XHBnYnJkcmhlYWRccGdicm UdNr1zqVjxCAJ3JYfxY5fd yA6kKcW2QTyoU9kfkP6sLQ x3MIjtpMU0GWHkcZ8tLP8o eivcs6jtLIqjXRxqJONhry A8gzB4PQExsGDuE2ResQ3e FRLmRW6fxysxw0jfREK2DP nmVCPcACO4ZgOpNLKlv6Ke qag1FfHgi7PjtTHgYXouJ8 7rn906ETQlapXpJ4alcPBa qyrbtAIlaworVTmdysQ8NP QcyiYyk9UcJDDwYOQ2XTwf BKqnfMRsMEStgAnwy3hdS3 RscGFyXHBsYWluXGYxXGZz MjBcbGFuZzEwMzNcaGljaF pmXDmxWwQmEJDnNWqiO0sw FoDhB0SeZUOtExPoiTXaF0 ggVGhpcyByZXBvcnQgbWF5 JTijU5k9GSXuulTctOy6rg FeHkLbTLGnQBL3USkthTFv TAVak3OfsqyknTRkTs1llD XnBEZarE0fQNPxUXWoMFsh SE8otAi1CETIcIHtuYWlTj DVAVAiKT36dqEoGDFGhlll f1W4EKykFMEqp1ZecFWmP9 lvp0BxWOPzw22kBA1xw5X4 z2evGIS1RN8tc5ZaZKZkyL GgdUCvWHPzt5Fnmvsez4Zt UAYszpZqa9PrHODtytNdsP AkZKOxhlZzef3njhIzOEEn XUXwD7KvfirwdHsirwLmMM Vobj9jrjXmKXS9NNLFZQLf ARUkr0JhqV2nnNEEVJF0kB Cjld3strUQgFQmDQWxwr94 NCEdAA5uF6alFZPrYRGjmi WrgKNme7EeTHIfkLJ1sXLu YM3CSnXTi19dKQChUPXCls RpJSNmmTtbfKU8twY1xY3r IChGREEpLlx+IFRoZSBGRE NbOP1nalNbq4NgqwQurEio ESReuJCmr6LcbMAwa4KysU tki6SrzWKytQEdHL9fDWAo clxwYXIgVVRNQiBMYWJvcm R3r2QjJYAwPCRvUPL4kBnp ncd8TPDshK9rWMPhX1lcfq zaRQhqRQGoq1GnjU0leRLD pEJfp4WuoOHdyFJLoXMyGT 3sfrHvWUoSLOtGFXG6ctGy UZAxa7ZiMNpuQ8vgV92mtY hyuAl7iDA3OOZ4pC9vOrn+ IFxwYXJccGFyIEFwcHJvcH TgTOAnaNocrcYeX6KckpAr oU1aiQPtxzGfEC9xFD7iF8 S2rZNlEPAloeZow5iyBQyp dmUgYmVlbiByZXZpZXdlZC Hmm2LkNJyjILH6ZHewwxLk bmNsdWRpbmcgSCZFLCBTcG NopMAvZTG8VKwuqhAdtkKk WQ8feF2swWcetF1voRZdeO L0fhjqRCYmXRQmfWiwKFFe YM0zyAqvmX2oCmBbBlMcPY ofQZ3pLDKbL6tptBLwCEZs KJFhD0fxYkSqiU2mdJsySA xjZjJcZnMyMFxwYXJccGFy XHBsYWluXGYxXGZzMjBcbG FuZzEwMzNcaGljaFxmMVxk CwByQIYjRLpuD0evBmGbH1 GrSEHqJsOlfQNaC6hdDBzw IQJ8YXSpJB8nhCNoKW95pK Oyx3wwMOehoHcznu0oB98h zTCkGGfatTnwGRYke62gh0 XuCBDyvsOrkw5mOFQjndF1 pE6uBWAvrIkrKNRivZJcZE Iou3BgHAjpeRFyktBkPOfl TUFfYSHnkFAyhfL1qxEvky XsvjTyURXmkAstOXZuk9Kk HADnQSlwk5Okme9kjJKxIB MykqQXtXhiaCGgeN7gV8Um QFVeIPNzii4wAJCfqF8aUO frx5RqbeewIBMsBKMrNDEh cpRrqw1uVPWbmNMOIU8UQQ sqjAAid6KlszOwQ8vZYCM9 NUQwNjYwMjgxKSBleGNlcH EbUUMtda32NELexR2xkUak ZSRteW9esW8muLtwwA3dIo DyYnLyRLorZS3bZKUmZ0xm lTNpMSHuDHAwE7trNsWxgU 9jaFxmMVxjZjJcZnMyMFxw YXJ9fQ== Embedded Images (test code = 1030953861) [facility]1997-[facility]-36 20:30:39EXAM: XR CHEST 1 VW COMPARISON: Multiple prior studies, most recently 12/05/2023 HISTORY: respiratory monitoring FINDINGS: Lines/tubes: Unchanged positioning of endotracheal tube with distal tipapproximately 4.0 cm above the sera. Right IJ line noted with its tip inthe right atrium close to the cavoatrial junction. Lungs: The lungs are adequately expanded. Blunting of left costophrenicangle is seen. No focal opacities. Heart/Mediastinum: The cardiacsilhouette appears mildly enlarged, but unchanged from prior, accountingfor technique and degree of inspiration. Bones and soft tissues: No osseous abnormality is visualized. [facility] + Lactic Btnc9508-11-18 14:58:15* Test Item Value Reference Range Interpretation Comme nts PH (test code = 2) 7.43 7.35-7.45 PCO2 (test code = 0144498603) 29 35-45 L PO2 (test code = 5895008841) 113 80-100 H HCO3 (test code = 0250350886) 18 22-26 L BE (test code = 5153160570) -5.1 -3.0-3.0 L THB (test code = 7087272739) 8.9 g/dL 12.0-16.0 L %O2HB (test code = 0619620282) 96.3 % 94.0-99.0 %COHB ART (test code = 2573933179) 1.8 % 0.0-1.5 H %METHB ART (test code = 9371361686) 0.3 % 0.4-1.5 L VOL%O2 ART (test code = 6939735704) 12.3 % 15.0-23.0 L NA (test code = 4554735699) 138 mmol/L 135-145 K+ (test code = 5866960049) 3.7 mmol/L 3.5-5.0 AC CA IONZ (test code = 3834290382) 4.30 mg/dL 4.50-5.30 L GLUCOSE (test code = 2284464075) 112 mg/dL 70-110 H LACTIC ACID (test code = 7198360125) 1.59 mmol/L 0.50-2.20 Lab Interpretation (test cod e = 40276-1) Abnormal [facility] Metabolic Panel (NA, K, CL, CO2, GLUCOSE, BUN, CREATININE, CA)2023-12-06 10:20:05* Test Item Value Reference Range Interpretation Comme nts NA (test code = 9178078910) 136 mmol/L 135-145 K (test code = 1301921011) 4.0 mmol/L 3.5-5.0 CL (test code = 6610294002) 107 mmol/L 98-108 CO2 TOTAL (test code = 7035806609) 16 mmol/L 23-31 L AGAP (test code = 9022674377) 13 2-16 BUN (test code = 4535417463) 41 mg/dL 7-23 H GLUCOSE (test code = 2659852762) 115 mg/dL 70-110 H CREATININE (test code = 2160-0) 2.10 mg/dL 0.50-1.04 H CALCIUM (test code = 8336152829) 7.9 mg/dL 8.6-10.6 L eGFR (test code = 60029-0) 24.2 mL/min/1.73m2 CKD-EPI eGFR (2020). Assuming creatinine has been stable day-to-day for at least three months, the eGFR indicates Category G4 (15 - 29 mL/min/1.73 m2) Lab Interpretation (test code = 20886-5) [facility] 10:20:05* Test Item Value Reference Range Interpretation Comme nts MAGNESIUM (test code = 7105634024) 2.1 mg/dL 1.7-2.4 Lab Interpretation (test cod e = 80046-4) Normal [facility] Austin[facility]osphorus2024-09-11 10:20:05* Test Item Value Reference Range Interpretation Comme nts PHOSPHORUS (test code = 8840177409) 4.7 mg/dL 2.5-5.0 Lab Interpretation (test cod e = 98288-3) Normal [facility] Austin[facility]b with Admr5213-09-65 09:59:09* Test Item Value Reference Range Interpretation Comme nts WBC (test code = 6690-2) 19.25 4.30-11.10 H RBC (test code = 789-8) 2.75 3.93-5.25 L HGB (test code = 718-7) 6.7 g/dL 11.6-15.0 L HCT (test code = 4544-3) 20.5 % 35.7-45.2 L MCV (test code = 787-2) 74.5 fL 80.6-95.5 L MCH (test code = 785-6) 24.4 pg 25.9-32.8 L MCHC (test code = 786-4) 32.7 g/dL 31.6-35.1 RDW-SD (test code = 95546-5) 57.8 fL 39.0-49.9 H RDW-CV (test code = 788-0) 21.9 % 12.0-15.5 H PLT (test code = 777-3) 437 166-358 H MPV (test code = 27201-4) 8.8 fL 9.5-12.9 L NRBC/100 WBC (test code = 1606640257) 0.2 0.0-10.0 NRBC x10^3 (test code = 2679678143) 0.03 See_Comment [Automated message] The system which generated this result transmitted reference range: 10*3/?L. The reference range was not used to interpret this result as normal/abnormal. GRAN MAT (NEUT) % (test code = 770-8) 82.2 % IMM GRAN % (test code = 2133407713) 6.10 % LYMPH % (test code = 736-9) 8.5 % MONO % (test code = 5905-5) 3.0 % EOS % (test code = 713-8) 0.1 % BASO % (test code = 706-2) 0.1 % GRAN MAT x10^3(ANC) (test code = 5486474526) 15.85 10*3/uL 1.88-7.09 H IMM GRAN x10^3 (test code = 5022159302) 1.17 10*3/uL 0.00-0.06 H LYMPH x10^3 (test code = 731-0) 1.63 10*3/uL 1.32-3.29 MONO x10^3 (test code = 742-7) 0.58 10*3/uL 0.33-0.92 EOS x10^3 (test code = 711-2) 0.03-0.39 L BASO x10^3 (test code = 704-7) 0.01-0.07 PATRIZIA CELLS (test code = 7790-9) 2+ See_Comment A [Automated message] The system which generated this result transmitted reference range: (none). The reference range was not used to interpret this result as normal/abnormal. Lab Interpretation (test code = 50422-6) Abnormal [facility] Packed RBC (in units), 1 Units 2023-12-06 09:47:53* Test Item Value Reference Range Interpretation Comme nts Cross Match Result (test code = 4409) Compatible ISBT Blood Type Code (test code = 565011) 6200 Unit Blood Type (test code = 4410) A Pos Unit Number (test code = 4411) [id number] Blood Expiration Date & Time (test code = 732506) [id number] Status Information (test code = 4412) Issued Product Identification (test code = 4413) Red Blood Cells Product Code (test code = 4414) [id number] Performed at [facility] B Laboratory Services - [facility] Blood [address] [address]Isel Free: [phone] No. [id number] [facility] Panel 20 + Lactic Pvca0541-98-22 08:25:51* Test Item Value Reference Range Interpretation Comme nts PH (test code = 2) 7.42 7.35-7.45 PCO2 (test code = 3239501056) 28 35-45 L PO2 (test code = 4485550906) 121 80-100 H HCO3 (test code = 9422108518) 18 22-26 L BE (test code = 5953418232) -5.8 -3.0-3.0 L THB (test code = 9724754868) 8.0 g/dL 12.0-16.0 LL %O2HB (test code = 8871541570) 97.6 % 94.0-99.0 %COHB ART (test code = 2713658095) 0.8 % 0.0-1.5 %METHB ART (test code = 2992148682) 0.3 % 0.4-1.5 L VOL%O2 ART (test code = 3160522380) 11.2 % 15.0-23.0 L NA (test code = 7366057828) 136 mmol/L 135-145 K+ (test code = 5331424016) 4.1 mmol/L 3.5-5.0 AC CA IONZ (test code = 6381615329) 4.30 mg/dL 4.50-5.30 L GLUCOSE (test code = 8176948699) 109 mg/dL 70-110 LACTIC ACID (test code = 5645787481) 1.56 mmol/L 0.50-2.20 Lab Interpretation (test cod e = 12532-4) Abnormal [facility] Arterial [facility] Gas. 30 minutes post ventilation.2023-12-05 17:42:21* Test Item Value Reference Range Interpretation Comme nts PH (test code = 2) 7.42 7.35-7.45 PCO2 (test code = 9047495545) 29 35-45 L PO2 (test code = 9031237536) 132 80-100 H HCO3 (test code = 0422634458) 19 22-26 L BE (test code = 7757615922) -4.5 -3.0-3.0 L Lab Interpretation (test cod e = 62128-7) Abnormal [facility] CHEST 1 [id number] 14:08:34Study: Single view chest. Ordering Physician: DONA ELKINS Date: 12/05/2023 4:00 AM History:Intubated, respiratory failure. COMPARISON: 12/04/2023 Findings: Single frontal view chest demonstrates cardiomegaly. The lungsappear clear without infiltrate, pleural effusion or pneumothorax. Theendotracheal tube terminates 5.0 cm above the sera. The right internaljugular venous catheter terminates overthe distal superior vena cava.[facility] AustinCbc with Ftrv6933-92-29 09:58:11* Test Item Value Reference Range Interpretation Comme nts WBC (test code = 6690-2) 22.12 4.30-11.10 H RBC (test code = 789-8) 3.08 3.93-5.25 L HGB (test code = 718-7) 7.3 g/dL 11.6-15.0 L HCT (test code = 4544-3) 22.8 % 35.7-45.2 L MCV (test code = 787-2) 74.0 fL 80.6-95.5 L MCH (test code = 785-6) 23.7 pg 25.9-32.8 L MCHC (test code = 786-4) 32.0 g/dL 31.6-35.1 RDW-SD (test code = 95538-1) 56.0 fL 39.0-49.9 H RDW-CV (test code = 788-0) 21.4 % 12.0-15.5 H PLT (test code = 777-3) 614 166-358 H MPV (test code = 91789-7) 8.9 fL 9.5-12.9 L NRBC/100 WBC (test code = 9824538505) 0.3 0.0-10.0 NRBC x10^3 (test code = 8253822927) 0.06 See_Comment [Automated message] The system which generated this result transmitted reference range: 10*3/?L. The reference range was not used to interpret this result as normal/abnormal. GRAN MAT (NEUT) % (test code = 770-8) 82.5 % IMM GRAN % (test code = 8123794334) 4.10 % LYMPH % (test code = 736-9) 9.4 % MONO % (test code = 5905-5) 3.8 % EOS % (test code = 713-8) 0.0 % BASO % (test code = 706-2) 0.2 % GRAN MAT x10^3(ANC) (test code = 0217944807) 18.23 10*3/uL 1.88-7.09 H IMM GRAN x10^3 (test code = 0827298203) 0.91 10*3/uL 0.00-0.06 H LYMPH x10^3 (test code = 731-0) 2.09 10*3/uL 1.32-3.29 MONO x10^3 (test code = 742-7) 0.84 10*3/uL 0.33-0.92 EOS x10^3 (test code = 711-2) 0.03-0.39 L BASO x10^3 (test code = 704-7) 0.04 10*3/uL 0.01-0.07 PATRIZIA CELLS (test code = 7790-9) 2+ See_Comment A [Automated message] The system which generated this result transmitted reference range: (none). The reference range was not used to interpret this result as normal/abnormal. BANDS (test code = 9156472843) Increased A Lab Interpretation (test code = 86419-3) Abnormal [facility] Metabolic Panel (NA, K, CL, CO2, GLUCOSE, BUN, CREATININE, CA)2023-12-05 09:41:38* Test Item Value Reference Range Interpretation Comme nts NA (test code = 7123344089) 134 mmol/L 135-145 L K (test code = 8434242505) 5.0 mmol/L 3.5-5.0 CL (test code = 6199160928) 104 mmol/L 98-108 CO2 TOTAL (test code = 7786436984) 16 mmol/L 23-31 L AGAP (test code = 0457400771) 14 2-16 BUN (test code = 6131324684) 38 mg/dL 7-23 H GLUCOSE (test code = 3331763513) 121 mg/dL 70-110 H CREATININE (test code = 2160-0) 2.53 mg/dL 0.50-1.04 H CALCIUM (test code = 7001456075) 8.1 mg/dL 8.6-10.6 L eGFR (test code = 94485-4) 19.3 mL/min/1.73m2 CKD-EPI eGFR (2020). Assuming creatinine has been stable day-to-day for at least three months, the eGFR indicates Category G4 (15 - 29 mL/min/1.73 m2) Lab Interpretation (test code = 63166-5) [facility]normal [facility]2024-09-10 09:41:38* Test Item Value Reference Range Interpretation Comme nts MAGNESIUM (test code = 3010487092) 2.1 mg/dL 1.7-2.4 Lab Interpretation (test cod e = 89492-7) Normal [facility]2024-09-10 09:41:38* Test Item Value Reference Range Interpretation Comme nts PHOSPHORUS (test code = 2843165197) 4.9 mg/dL 2.5-5.0 Lab Interpretation (test cod e = 64810-2) Normal [facility] 20 + Lactic Pugn9343-93-35 08:38:38* Test Item Value Reference Range Interpretation Comme nts PH (test code = 2) 7.43 7.35-7.45 PCO2 (test code = 2914277843) 28 35-45 L PO2 (test code = 8975796852) 112 80-100 H HCO3 (test code = 5790512571) 18 22-26 L BE (test code = 1315097898) -5.3 -3.0-3.0 L THB (test code = 2675262390) 7.9 g/dL 12.0-16.0 LL %O2HB (test code = 0122478805) 97.3 % 94.0-99.0 %COHB ART (test code = 9375718091) 0.7 % 0.0-1.5 %METHB ART (test code = 5583044975) 0.3 % 0.4-1.5 L VOL%O2 ART (test code = 2363743569) 11.0 % 15.0-23.0 L NA (test code = 5642841716) 134 mmol/L 135-145 L K+ (test code = 8429987061) 5.1 mmol/L 3.5-5.0 H AC CA IONZ (test code = 3307662560) 4.30 mg/dL 4.50-5.30 L GLUCOSE (test code = 2732957290) 120 mg/dL 70-110 H LACTIC ACID (test code = 4090668555) 1.95 mmol/L 0.50-2.20 Lab Interpretation (test cod e = 39991-9) [facility]normal [facility] 1 [id number] 05:27:23Ordering physician: TAYLOR SEGUNDO Indication: Central line placement Comparison: Chest dated 12/04/2023 at 1940 Technical quality: Adequate Findings: Single AP view of the chest. Endotracheal tube terminates 5.6 cmabove the sera. Right internal jugular central venous catheter terminatesjust past the cavoatrial junction. The cardiopericardial silhouette ismoderately enlarged. The lungs are clear bilat erally. The visualized bonythorax is intact.[facility]ST 1 [id number] 05:20:21Ordering physician: TAYLOR SEGUNDO Indication: Central line Comparison: Chest dated 12/15/2023 1949 Technical quality: Adequate Findings: Single AP view of the chest. Endotracheal tube terminates 5.1 cmabove the sera. Right internal jugular central venous catheter terminatesin the right atrium. There is stable moderate cardiomegaly. No acutepulmonary process is appreciated. The visualized bony thorax is intact.[facility] Panel 20 + Lactic Clmg0798-49-58 04:05:35* Test Item Value Reference Range Interpretation Comme nts PH (test code = 2) 7.41 7.35-7.45 PCO2 (test code = 1167989473) 28 35-45 L PO2 (test code = 2195747589) 115 80-100 H HCO3 (test code = 7714772442) 17 22-26 L BE (test code = 6227189571) -6.7 -3.0-3.0 L THB (test code = 3351048405) 8.7 g/dL 12.0-16.0 L %O2HB (test code = 0121431598) 97.0 % 94.0-99.0 %COHB ART (test code = 2852269833) 1.5 % 0.0-1.5 %METHB ART (test code = 0031768340) 0.3 % 0.4-1.5 L VOL%O2 ART (test code = 6929895303) 12.1 % 15.0-23.0 L NA (test code = 6712800322) 133 mmol/L 135-145 L K+ (test code = 6313707007) 5.1 mmol/L 3.5-5.0 H AC CA IONZ (test code = 3418451859) 4.30 mg/dL 4.50-5.30 L GLUCOSE (test code = 9278832919) 104 mg/dL 70-110 LACTIC ACID (test code = 8256056856) 2.10 mmol/L 0.50-2.20 QUES Lab Interpretation (test cod e = 98807-4) [facility]normal [facility] 20 + Lactic Wbxc2650-24-19 01:59:51* Test Item Value Reference Range Interpretation Comme nts PH (test code = 2) 7.42 7.35-7.45 PCO2 (test code = 8956596932) 28 35-45 L PO2 (test code = 8412891980) 155 80-100 H HCO3 (test code = 7533887404) 18 22-26 L BE (test code = 7980234672) -6.2 -3.0-3.0 L THB (test code = 5134857939) 7.1 g/dL 12.0-16.0 LL %O2HB (test code = 4453237370) 97.8 % 94.0-99.0 %COHB ART (test code = 3202834783) 1.5 % 0.0-1.5 %METHB ART (test code = 9076306244) 0.3 % 0.4-1.5 L VOL%O2 ART (test code = 3807851793) 10.1 % 15.0-23.0 L NA (test code = 2801996904) 134 mmol/L 135-145 L K+ (test code = 0871140881) 5.1 mmol/L 3.5-5.0 H AC CA IONZ (test code = 6897786668) 4.20 mg/dL 4.50-5.30 L GLUCOSE (test code = 3171525109) 104 mg/dL 70-110 LACTIC ACID (test code = 9454538453) 3.00 mmol/L 0.50-2.20 H QUES Lab Interpretation (test cod e = 09867-1) Abnormal [facility] with [id number] 23:18:18* Test Item Value Reference Range Interpretation Comme nts WBC (test code = 6690-2) 22.38 4.30-11.10 H RBC (test code = 789-8) 3.69 3.93-5.25 L HGB (test code = 718-7) 8.9 g/dL 11.6-15.0 L HCT (test code = 4544-3) 28.1 % 35.7-45.2 L MCV (test code = 787-2) 76.2 fL 80.6-95.5 L MCH (test code = 785-6) 24.1 pg 25.9-32.8 L MCHC (test code = 786-4) 31.7 g/dL 31.6-35.1 RDW-SD (test code = 75420-0) 57.0 fL 39.0-49.9 H RDW-CV (test code = 788-0) 21.1 % 12.0-15.5 H PLT (test code = 777-3) 692 166-358 H MPV (test code = 08239-1) 9.1 fL 9.5-12.9 L NRBC/100 WBC (test code = 0817058180) 0.5 0.0-10.0 NRBC x10^3 (test code = 8199947564) 0.12 See_Comment [Automated message] The system which generated this result transmitted reference range: 10*3/?L. The reference range was not used to interpret this result as normal/abnormal. GRAN MAT (NEUT) % (test code = 770-8) 84.9 % IMM GRAN % (test code = 2162173103) 2.90 % LYMPH % (test code = 736-9) 8.6 % MONO % (test code = 5905-5) 3.3 % EOS % (test code = 713-8) 0.0 % BASO % (test code = 706-2) 0.3 % GRAN MAT x10^3(ANC) (test code = 8043525944) 19.00 10*3/uL 1.88-7.09 H IMM GRAN x10^3 (test code = 3180087669) 0.65 10*3/uL 0.00-0.06 H LYMPH x10^3 (test code = 731-0) 1.92 10*3/uL 1.32-3.29 MONO x10^3 (test code = 742-7) 0.74 10*3/uL 0.33-0.92 EOS x10^3 (test code = 711-2) 0.03-0.39 L BASO x10^3 (test code = 704-7) 0.06 10*3/uL 0.01-0.07 PATRIZIA CELLS (test code = 7790-9) 2+ See_Comment A [Automated message] The system which generated this result transmitted reference range: (none). The reference range was not used to interpret this result as normal/abnormal. BANDS (test code = 3116738449) MARKED INCREASED A DOHLE BODIES (test code = 7792-5) Present A Lab Interpretation (test code = 74821-7) Abnormal [facility] Metabolic Panel (NA, K, CL, CO2, GLUCOSE, BUN, CREATININE, CA)2023-12-04 22:55:40* Test Item Value Reference Range Interpretation Comme nts NA (test code = 5234093882) 134 mmol/L 135-145 L K (test code = 2920306165) 5.1 mmol/L 3.5-5.0 H CL (test code = 8505414457) 106 mmol/L 98-108 CO2 TOTAL (test code = 9042696391) 16 mmol/L 23-31 L AGAP (test code = 4816279940) 12 2-16 BUN (test code = 8010584207) 34 mg/dL 7-23 H GLUCOSE (test code = 5778826815) 102 mg/dL 70-110 CREATININE (test code = 2160-0) 2.15 mg/dL 0.50-1.04 H CALCIUM (test code = 0274232184) 8.0 mg/dL 8.6-10.6 L eGFR (test code = 66568-4) 23.5 mL/min/1.73m2 CKD-EPI eGFR (2020). Assuming creatinine has been stable day-to-day for at least three months, the eGFR indicates Category G4 (15 - 29 mL/min/1.73 m2) Lab Interpretation (test code = 28456-6) [facility]normal [facility] [id number] 21:56:12* Test Item Value Reference Range Interpretation Comme nts Height (test code = 9042785121) 68 in Weight (test code = 3788998680) 375 lbs Systolic BP (test code = 1885094762) 195 mmHg Diastolic BP (test code = 0765491641) 165 mmHg Heart Rate (test code = 5510983719) 109 bpm BSA (test code = 1707251832) 2.7 m2 LVIDD (test code = 6037714520) 4.90 cm Left Ventricular End Diastolic Volume by Teichholz Method (test code = 1218616) 115.2 mL IVS (test code = 3579102222) 0.92 cm Interventricular Septum Diastolic Thickness by 2D (test code = 6331952) 0.92 cm LVPWD (test code = 7011830122) 1.02 cm PW (test code = 3363264283) 1.02 cm 0.6-1.1 EF(Teich) (test code = 6613892834) 60.40 % LVIDS (test code = 6138376310) 3.30 cm Left Ventricular End Systolic Volume by Teichholz Method (test code = 6274151) 45.7 mL FS (test code = 0609257416) 32 % EF - 2D (test code = 30177856) 60.40 % A4C EF (test code = 3629887602) 58.60 % EF(sp4-el) (test code = 5311082858) 55.90 % SV(MOD-sp4) (test code = 2151672383) 65.80 mL SV(sp4-el) (test code = 5126401290) 64.20 mL LV Diastolic Volume (BP) (test code = 1959382439) 114.6 mL A2C EF (test code = 0911514056) 72.10 % EF(MOD-bp) (test code = 3949392830) 65.70 % EF(sp2-el) (test code = 9682837440) 74.20 % LV Systolic Volume (BP) (test code = 6520246126) 39.3 mL SV(MOD-bp) (test code = 3370111126) 75.30 mL SV(MOD-sp2) (test code = 3712157103) 78.80 mL EF (test code = 0150766826) 66 Left Ventricular Stroke Volume by 2-D Biplane-MOD (test code = 0962565) 75.3 mL LV Diastolic Volume Index (BP) (test code = 2499269874) 42.4 mL/m2 LV Systolic Volume Index (BP) (test code = 2880811829) 14.6 mL/m2 Radiology Study observation (narrative) (test code = 01516-9) JESSICA (test code = JESSICA) ?Left?Ventricle: Not well visualized. Left ventricle size is normal. Normal wall thickness. Ventricular mass is normal. Septal flattening in diastole consistent with right ventricular volume overload. Normal wall motion. See diagram for regional wall motion findings. Normal systolic function with a visually estimated EF of 60 - 65%. Unable to assess diastolic function due to E-A fusion and arrhythmia. Normal left ventricular filling pressure. ?Right?Ventricle: Not well visualized. Right ventricle is grossly dilated. Normal systolic function. Left VentricleNot well visualized. Left ventricle size is normal. Normal wall thickness. Ventricular mass is normal. Septal flattening in diastole consistent with right ventricular volume overload. Normal wall motion. See diagram for regional wall motion findings. Normal systolic function with a visually estimated EF of 60 - 65%. Unable to assess diastolic function due to E-A fusion and arrhythmia. Normal left ventricular filling pressure.Right VentricleNot well visualized. Right ventricle is grossly dilated. Normal systolic function.Left AtriumNot well visualized. Left atrium is mildly dilated.Right AtriumNot assessed.IVC/SVCPatie nt is ventilated, cannot use IVC diameter to estimate right atrial pressure.Mitral ValveNot assessed due to poor image quality. Moderate mitral annular calcification.Tricusp id ValveNot assessed.Aortic ValveNot assessed.Pulmonic ValveNot well visualized.Ascending AortaNot well visualized.Pericardiu mEvidence of epicardial fat. No pericardial effusion.Study DetailsStudy quality was technically limited. A limited echocardiogram was performed using 2D. 5 mL of Lumason ultrasound enhancing agent used. Patient exhibited atrial fibrillation.Wall Scoring BaselineScore Index: 1.06The following segments are hypokinetic: apex.All other segments are normal. [facility] 20 + Lactic [id number] 20:05:31* Test Item Value Reference Range Interpretation Comme nts PH (test code = 2) 7.40 7.35-7.45 PCO2 (test code = 8976765440) 27 35-45 L PO2 (test code = 7645691530) 149 80-100 H HCO3 (test code = 0236116416) 16 22-26 L BE (test code = 0646257565) -7.6 -3.0-3.0 L THB (test code = 6197386815) 10.5 g/dL 12.0-16.0 L %O2HB (test code = 0495150877) 98.1 % 94.0-99.0 %COHB ART (test code = 8903269566) 1.1 % 0.0-1.5 %METHB ART (test code = 8958291331) 0.3 % 0.4-1.5 L VOL%O2 ART (test code = 4432125624) 14.8 % 15.0-23.0 L NA (test code = 8496065276) 134 mmol/L 135-145 L K+ (test code = 8781216508) 5.1 mmol/L 3.5-5.0 H AC CA IONZ (test code = 5349853119) 4.30 mg/dL 4.50-5.30 L GLUCOSE (test code = 3616003619) 97 mg/dL 70-110 LACTIC ACID (test code = 5636964024) 4.39 mmol/L 0.50-2.20 H QUES Lab Interpretation (test cod e = 85345-9) Abnormal [facility] Austin[facility]cos[facility] Hem[facility] (A1C)2023-12-04 18:13:56* Test Item Value Reference Range Interpretation Comme nts HGB A1C (test code = 4548-4) 5.4 % 4.0-5.7 JESSICA (test code = JESSICA) Reference RangesNormal: <5.7%Prediabetes: 5.7 - 6.4%Diabetes: > 6.5% Lab Interpretation (test code = 28541-6) Normal [facility] AustinGlycos[facility] Hem[facility] (A1C)2023-12-04 18:13:56* Test Item Value Reference Range Interpretation Comme nts HGB A1C (test code = 4548-4) 5.4 % 4.0-5.7 JESSICA (test code = JESSICA) Reference RangesNormal: <5.7%Prediabetes: 5.7 - 6.4%Diabetes: > 6.5% Lab Interpretation (test code = 26023-4) Normal [facility] [id number] 15:42:50EXAM: XR KUB, XR KUB, XR KUB HISTORY: 73 years-old Female; NGT . TECHNIQUE: Frontal view of the abdo men and pelvis COMPARISON: CT abdomen pelvis dated 12/03/2023 [id number] [facility] [id number] 15:42:50EXAM: XR KUB, XR KUB, XR KUB HISTORY: 73 years-old Female; NGT . TECHNIQUE: Frontal view of the abdomen and pelvis COMPARISON: CT abdomen pelvis dated 12/03/2023 [id number] dated [facility]/04[facility]2023 [facility] 1 VW 2023-12-04 13:59:41EXAM: XR CHEST 1 VW COMPARISON: 12/02/2023 HISTORY: intub FINDINGS: Lines/Tubes: Interval placement of endotracheal tube which projectsapproximately 4 cm above the sera. An enteric tube coursessubdiap hragmatically with tip excluded from [id number]-jq-znmp. Lungs: No focal consolidation or pneumothorax. Decrease in previously seenprominent interstitial markings. Possible trace right pleural effusion. Heart/Mediastinum: The cardiac silhouette appears borderline enlarged. Bones and soft tissues: No acute findings are detected.[facility] 1 [id number] 13:59:41EXAM: XR CHEST 1 VW COMPARISON: 12/02/2023 HISTORY: intub FINDINGS: Lines/Tubes: Interval placement of endotracheal tube which projectsapproximately 4 cm above the sera. An enteric tube coursessubdiaphragmatically with tip excluded from fwktu-mi-rpou. Lungs: No focal consolidation or pneumothorax. D ecrease in previously seenprominent interstitial markings. Possible trace right pleural effusion. Heart/Mediastinum: The cardiac silhouette appears borderline enlarged. Bones and soft tissues: No acute findings are detected.[facility] Panel 20 + Lactic [id number] 10:31:19* Test Item Value Reference Range Interpretation Comme nts PH (test code = 2) 7.33 7.35-7.45 L PCO2 (test code = 4312391245) 30 35-45 L PO2 (test code = 5444137908) 178 80-100 H HCO3 (test code = 0191405143) 16 22-26 L BE (test code = 0691332544) -8.8 -3.0-3.0 L THB (test code = 7247800036) 11.8 g/dL 12.0-16.0 L %O2HB (test code = 0430006461) 98.1 % 94.0-99.0 %COHB ART (test code = 1319804354) 1.0 % 0.0-1.5 %METHB ART (test code = 5087411330) 0.3 % 0.4-1.5 L VOL%O2 ART (test code = 5137755023) 16.6 % 15.0-23.0 NA (test code = 4234506305) 134 mmol/L 135-145 L K+ (test code = 4874634704) 4.8 mmol/L 3.5-5.0 AC CA IONZ (test code = 6405898302) 4.50 mg/dL 4.50-5.30 GLUCOSE (test code = 4769533820) 111 mg/dL 70-110 H LACTIC ACID (test code = 0109388832) 4.15 mmol/L 0.50-2.20 H Lab Interpretation (test cod e = 31575-5) Abnormal [facility] Panel 20 + Lactic [id number] 10:31:19* Test Item Value Reference Range Interpretation Comme nts PH (test code = 2) 7.33 7.35-7.45 L PCO2 (test code = 5966515000) 30 35-45 L PO2 (test code = 5124913005) 178 80-100 H HCO3 (test code = 8977237745) 16 22-26 L BE (test code = 2006499893) -8.8 -3.0-3.0 L THB (test code = 6801330108) 11.8 g/dL 12.0-16.0 L %O2HB (test code = 9248074790) 98.1 % 94.0-99.0 %COHB ART (test code = 2955153126) 1.0 % 0.0-1.5 %METHB ART (test code = 0466007977) 0.3 % 0.4-1.5 L VOL%O2 ART (test code = 3366163717) 16.6 % 15.0-23.0 NA (test code = 4817233100) 134 mmol/L 135-145 L K+ (test code = 8011901411) 4.8 mmol/L 3.5-5.0 AC CA IONZ (test code = 6464312916) 4.50 mg/dL 4.50-5.30 GLUCOSE (test code = 7824164062) 111 mg/dL 70-110 H LACTIC ACID (test code = 2269230684) 4.15 mmol/L 0.50-2.20 H Lab Interpretation (test cod e = 87000-6) Abnormal [facility] with [id number] 09:09:53* Test Item Value Reference Range Interpretation Comme nts WBC (test code = 6690-2) 12.81 4.30-11.10 H RBC (test code = 789-8) 4.49 3.93-5.25 HGB (test code = 718-7) 10.8 g/dL 11.6-15.0 L HCT (test code = 4544-3) 34.6 % 35.7-45.2 L MCV (test code = 787-2) 77.1 fL 80.6-95.5 L MCH (test code = 785-6) 24.1 pg 25.9-32.8 L MCHC (test code = 786-4) 31.2 g/dL 31.6-35.1 L RDW-SD (test code = 09708-6) 58.1 fL 39.0-49.9 H RDW-CV (test code = 788-0) 21.5 % 12.0-15.5 H PLT (test code = 777-3) 829 166-358 H MPV (test code = 17239-7) 8.8 fL 9.5-12.9 L NRBC/100 WBC (test code = 0427927413) 1.1 0.0-10.0 NRBC x10^3 (test code = 3489177716) 0.14 See_Comment [Automated message] The system which generated this result transmitted reference range: 10*3/?L. The reference range was not used to interpret this result as normal/abnormal. GRAN MAT (NEUT) % (test code = 770-8) 82.1 % IMM GRAN % (test code = 7060900002) 1.10 % LYMPH % (test code = 736-9) 13.0 % MONO % (test code = 5905-5) 3.2 % EOS % (test code = 713-8) 0.1 % BASO % (test code = 706-2) 0.5 % GRAN MAT x10^3(ANC) (test code = 0441670694) 10.52 10*3/uL 1.88-7.09 H IMM GRAN x10^3 (test code = 1337040099) 0.14 10*3/uL 0.00-0.06 H LYMPH x10^3 (test code = 731-0) 1.67 10*3/uL 1.32-3.29 MONO x10^3 (test code = 742-7) 0.41 10*3/uL 0.33-0.92 EOS x10^3 (test code = 711-2) 0.03-0.39 L BASO x10^3 (test code = 704-7) 0.06 10*3/uL 0.01-0.07 PATRIZIA CELLS (test code = 7790-9) 2+ See_Comment A [Automated message] The system which generated this result transmitted reference range: (none). The reference range was not used to interpret this result as normal/abnormal. BANDS (test code = 5573261334) MARKED INCREASED A DOHLE BODIES (test code = 7792-5) Present A Lab Interpretation (test code = 11421-0) Abnormal [facility] with Deey6534-09-75 09:09:53* Test Item Value Reference Range Interpretation Comme nts WBC (test code = 6690-2) 12.81 4.30-11.10 H RBC (test code = 789-8) 4.49 3.93-5.25 HGB (test code = 718-7) 10.8 g/dL 11.6-15.0 L HCT (test code = 4544-3) 34.6 % 35.7-45.2 L MCV (test code = 787-2) 77.1 fL 80.6-95.5 L MCH (test code = 785-6) 24.1 pg 25.9-32.8 L MCHC (test code = 786-4) 31.2 g/dL 31.6-35.1 L RDW-SD (test code = 43921-7) 58.1 fL 39.0-49.9 H RDW-CV (test code = 788-0) 21.5 % 12.0-15.5 H PLT (test code = 777-3) 829 166-358 H MPV (test code = 81279-0) 8.8 fL 9.5-12.9 L NRBC/100 WBC (test code = 2343264689) 1.1 0.0-10.0 NRBC x10^3 (test code = 7499772691) 0.14 See_Comment [Automated message] The system which generated this result transmitted reference range: 10*3/?L. The reference range was not used to interpret this result as normal/abnormal. GRAN MAT (NEUT) % (test code = 770-8) 82.1 % IMM GRAN % (test code = 9079682000) 1.10 % LYMPH % (test code = 736-9) 13.0 % MONO % (test code = 5905-5) 3.2 % EOS % (test code = 713-8) 0.1 % BASO % (test code = 706-2) 0.5 % GRAN MAT x10^3(ANC) (test code = 8548383136) 10.52 10*3/uL 1.88-7.09 H IMM GRAN x10^3 (test code = 2105686740) 0.14 10*3/uL 0.00-0.06 H LYMPH x10^3 (test code = 731-0) 1.67 10*3/uL 1.32-3.29 MONO x10^3 (test code = 742-7) 0.41 10*3/uL 0.33-0.92 EOS x10^3 (test code = 711-2) 0.03-0.39 L BASO x10^3 (test code = 704-7) 0.06 10*3/uL 0.01-0.07 PATRIZIA CELLS (test code = 7790-9) 2+ See_Comment A [Automated message] The system which generated this result transmitted reference range: (none). The reference range was not used to interpret this result as normal/abnormal. BANDS (test code = 0939118506) MARKED INCREASED A DOHLE BODIES (test code = 7792-5) Present A Lab Interpretation (test code = 30466-4) [facility] 08:50:45* Test Item Value Reference Range Interpretation Comme nts PHOSPHORUS (test code = 8389824034) 5.9 mg/dL 2.5-5.0 H Lab Interpretation (test cod e = 89392-9) [facility]normal [facility]2024-[facility]-09 08:50:45* Test Item Value Reference Range Interpretation Comme nts MAGNESIUM (test code = 5830766274) 2.1 mg/dL 1.7-2.4 Lab Interpretation (test cod e = 06523-9) Normal [facility] (NA, K, CL, CO2, GLUCOSE, BUN, CREATININE, CA)2023-12-04 08:50:45* Test Item Value Reference Range Interpretation Comme nts NA (test code = 9302474929) 135 mmol/L 135-145 K (test code = 9401815248) 5.0 mmol/L 3.5-5.0 CL (test code = 0640268997) 104 mmol/L 98-108 CO2 TOTAL (test code = 7151197925) 16 mmol/L 23-31 L AGAP (test code = 3659086391) 15 2-16 BUN (test code = 5380175372) 29 mg/dL 7-23 H GLUCOSE (test code = 2595501989) 126 mg/dL 70-110 H CREATININE (test code = 2160-0) 1.51 mg/dL 0.50-1.04 H CALCIUM (test code = 6622533045) 8.6 mg/dL 8.6-10.6 eGFR (test code = 69633-5) 35.9 mL/min/1.73m2 CKD-EPI eGFR (2020). Assuming creatinine has been stable day-to-day for at least three months, the eGFR indicates Category G3b (30 - 44 mL/min/1.73 m2) Lab Interpretation (test code = 04460-5) Abnormal [facility] Metabolic Panel (NA, K, CL, CO2, GLUCOSE, BUN, CREATININE, CA)2023-12-04 08:50:45* Test Item Value Reference Range Interpretation Comme nts NA (test code = 5903921235) 135 mmol/L 135-145 K (test code = 7838127227) 5.0 mmol/L 3.5-5.0 CL (test code = 2960504656) 104 mmol/L 98-108 CO2 TOTAL (test code = 0731560952) 16 mmol/L 23-31 L AGAP (test code = 4657527250) 15 2-16 BUN (test code = 1720316518) 29 mg/dL 7-23 H GLUCOSE (test code = 2885438036) 126 mg/dL 70-110 H CREATININE (test code = 2160-0) 1.51 mg/dL 0.50-1.04 H CALCIUM (test code = 9725995071) 8.6 mg/dL 8.6-10.6 eGFR (test code = 57711-6) 35.9 mL/min/1.73m2 CKD-EPI eGFR (2020). Assuming creatinine has been stable day-to-day for at least three months, the eGFR indicates Category G3b (30 - 44 mL/min/1.73 m2) Lab Interpretation (test code = 09901-0) [facility]normal [facility]2024-[facility]-09 08:50:45* Test Item Value Reference Range Interpretation Comme nts MAGNESIUM (test code = 9958229483) 2.1 mg/dL 1.7-2.4 Lab Interpretation (test cod e = 48733-3) Normal [facility]2024-09-09 08:50:45* Test Item Value Reference Range Interpretation Comme nts PHOSPHORUS (test code = 6273658195) 5.9 mg/dL 2.5-5.0 H Lab Interpretation (test cod e = 36445-2) Abnormal [facility]ibr[facility]2024-09-09 08:48:34* Test Item Value Reference Range Interpretation Comme nts Fibrinogen (test code = 1696189513) 879 mg/dL 167-453 H Lab Interpretation (test cod e = 12010-8) Abnormal [facility]2024-09-09 08:48:34* Test Item Value Reference Range Interpretation Comme nts Fibrinogen (test code = 7313342375) 879 mg/dL 167-453 H Lab Interpretation (test cod e = 13321-1) Abnormal [facility] AustinProthrombin Time / BST4025-12-65 08:48:09* Test Item Value Reference Range Interpretation Comme nts PROTIME PATIENT (test code = 5964-2) 21.6 10.1-12.6 H INR (test code = 6301-6) 2.0 Normal INR <1.1; Warfarin Therapeutic range 2.0 to 3.0 or 2.5 to 3.5, depending upon the indications. Lab Interpretation (test code = 04176-0) Abnormal [facility] AustinAct[facility] Partial Thrmplas Czz6434-51-42 08:48:09* Test Item Value Reference Range Interpretation Comme nts APTT Patient (test code = 3173-2) 32 26-36 Lab Interpretation (test cod e = 24947-3) Normal [facility] Partial Thrmplas Exh7279-08-91 08:48:09* Test Item Value Reference Range Interpretation Comme nts APTT Patient (test code = 3173-2) 32 26-36 Lab Interpretation (test cod e = 33039-4) Normal [facility] AustinProthrom[facility] Time / [id number] 08:48:09* Test Item Value Reference Range Interpretation Comme nts PROTIME PATIENT (test code = 5964-2) 21.6 10.1-12.6 H INR (test code = 6301-6) 2.0 Normal INR <1.1; Warfarin Therapeutic range 2.0 to 3.0 or 2.5 to 3.5, depending upon the indications. Lab Interpretation (test code = 08845-4) [facility]normal [facility] Austin[facility] Panel 20 + Lactic Otyp2777-29-64 08:18:49* Test Item Value Reference Range Interpretation Comme nts PH (test code = 2) 7.27 7.35-7.45 L PCO2 (test code = 3631427744) 37 35-45 PO2 (test code = 3100214407) 312 80-100 H HCO3 (test code = 5971859556) 17 22-26 L BE (test code = 1541963652) -9.5 -3.0-3.0 L THB (test code = 3791462399) 11.8 g/dL 12.0-16.0 L %O2HB (test code = 2348005375) 98.7 % 94.0-99.0 %COHB ART (test code = 5804423922) 1.0 % 0.0-1.5 %METHB ART (test code = 8520563673) 0.3 % 0.4-1.5 L VOL%O2 ART (test code = 6145184217) 17.2 % 15.0-23.0 NA (test code = 4550718910) 134 mmol/L 135-145 L K+ (test code = 4211601170) 5.0 mmol/L 3.5-5.0 AC CA IONZ (test code = 7991803549) 4.60 mg/dL 4.50-5.30 GLUCOSE (test code = 0876721945) 125 mg/dL 70-110 H LACTIC ACID (test code = 3137990968) 4.75 mmol/L 0.50-2.20 H Lab Interpretation (test cod e = 83674-5) Abnormal [facility] 20 + Lactic [id number] 08:18:49* Test Item Value Reference Range Interpretation Comme nts PH (test code = 2) 7.27 7.35-7.45 L PCO2 (test code = 2093757543) 37 35-45 PO2 (test code = 4056566710) 312 80-100 H HCO3 (test code = 4292609573) 17 22-26 L BE (test code = 1999024842) -9.5 -3.0-3.0 L THB (test code = 9636497481) 11.8 g/dL 12.0-16.0 L %O2HB (test code = 9314122613) 98.7 % 94.0-99.0 %COHB ART (test code = 6838211996) 1.0 % 0.0-1.5 %METHB ART (test code = 5325423532) 0.3 % 0.4-1.5 L VOL%O2 ART (test code = 5455236546) 17.2 % 15.0-23.0 NA (test code = 6087928871) 134 mmol/L 135-145 L K+ (test code = 6235251911) 5.0 mmol/L 3.5-5.0 AC CA IONZ (test code = 4991668111) 4.60 mg/dL 4.50-5.30 GLUCOSE (test code = 5758214947) 125 mg/dL 70-110 H LACTIC ACID (test code = 4050853858) 4.75 mmol/L 0.50-2.20 H Lab Interpretation (test cod e = 04251-7) Abnormal [facility] Packed RBC (in units), 2 Units 2023-12-04 02:36:27* Test Item Value Reference Range Interpretation Comme nts Cross Match Result (test code = 4409) Compatible ISBT Blood Type Code (test code = 737844) 6200 Unit Blood Type (test code = 4410) A Pos Unit Number (test code = 4411) [id number] Blood Expiration Date & Time (test code = 752433) 417663114824 Status Information (test code = 4412) Issued Product Identification (test code = 4413) Red Blood Cells Product Code (test code = 4414) [id number] Performed at [facility] B Laboratory Services - [facility] [address] [place] [address]Mzwx Free: [phone] No. [id number] [facility] Packed RBC (in units), 2 Units 2023-12-04 02:36:27* Test Item Value Reference Range Interpretation Comme nts Cross Match Result (test code = 4409) Compatible ISBT Blood Type Code (test code = 197335) 6200 Unit Blood Type (test code = 4410) A Pos Unit Number (test code = 4411) [id number] Blood Expiration Date & Time (test code = 156432) 241432809334 Status Information (test code = 4412) Issued Product Identification (test code = 4413) Red Blood Cells Product Code (test code = 4414) [id number] Performed at [facility] Laboratory Services [facility] Blood [address] [place] [address]Sntw Free: [phone] No. [id number] [facility] AustinArterial Zjtp3033-39-41 01:12:00Bashir Carvalho MD ? ? 12/03/2023 ?8:44 PM Arterial Line Date/Time: 12/03/2023 8:12 PM Performed by: Bashir Carvalho MDArterial Line Placement: ?Ultrasound-Guided: ultrasound guided ? ?Patient Location: ?OR ?Indication: continuous blood pressure monitoring and blood sampling needed ?Staff: ?Supervising Anesthesiologist: ?Kentrell Núñez MD ?Resident: ?Bashir Carvalho MDProcedure Detail: ?Catheter Size: ?20gauge ?Catheter Length: ?1 and 3/4 inch ?Catheter Type: ?Arrow ?Seldinger Technique?: Yes ? ?Laterality: ?Left ?Site: ?Radial artery ?Line Secured: ?Tape, Tegaderm and biopatch ?Preparation: ?Guidewire removed intactEvents: ?Events: ?Patient tolerated procedure well with no complications and all wires accounted forComments: ? Tegaderm CHG applied. [facility] RlqhnxNeixndixdz2924-68-58 00:57:00Bashir Carvalho MD ? ? 12/03/2023 ?8:42 PMIntubationDate/Time: 12/03/2023 7:57 PMUrgency: elective Airway not difficult General Information and Staff Patient location during procedure: ORPerformed: resident/PSYCH SALES SPECIALIST Performed by: Stan Izquierdo MDAuthorized by: Kentrell Núñez MD ? Indications and Patient ConditionIndications for airway management: anesthesiaSpontaneous Ventilation: absentSedationlevel: deepPreoxygenated: yesPatient position: sniffingMILS not maintained throughoutMask difficulty assessment: 1 - vent by maskNo planned trial extubation Final Airway DetailsFinal airway type: endotracheal airway Successful airway: ETTCuffed: yes Successful intubation technique: video laryngoscop yFacilitating devices/methods: intubating styletEndotracheal tube insertion site: oralBlade: MacintoshBlade size: #3ETT size (mm): 7.0Cormack-Lehane Classification: grade I - full view of glottisPlacement verified by: capnometry Number of attempts at approach: 1Number of other approaches attempted:0 Additional CommentsETT 7.0 placed atraumatically x1 attempt with CMAC3 videoscope. ?Lips, gums, teeth, and nose unchanged vs. preop.[facility] P[facility] W [id number] 23:18:25EXAM: CT ABDOMEN AND PELVIS WITH CONTRAST HISTORY: abdominal pain, possible perforation, stercoral colitis COMPARISON: Outside study dated 12/02/2023 TECHNIQUE: Interpretation of outside study FINDINGS: Report from outside study is not available. Moderate-sized hiatal hernia. Adjacent free air/pneumomediastinum no longerseen. Calcified granuloma in the right lung base and minimal dependentatelectasis. Distended gallbladder with large gallstone. The liver, spleen, pancreas,adrenal glands are normal. There is mild left and mild/moderate righthydroureteronephrosis. Atherosclerotic change is present within the aortaand its branches. 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 Cote catheter and air within the bladder. Limited evaluation of thebladderdue to decompression with suspected bladder wall thickening Left periumbilical ventral hernia containing colon. Multiple diverticula inthe colon. There is very large stool ball in the rectum. The rectal wallappears thickened and there appears to be fairly significant amount ofpneumatosis with air and fecal collections within or adjacent to the rectalwall communicating with the lumen. Largest collection measures 9.8 x 3.1cm. Increasing fecal material seen extruding into the collection Increasingv olume pneumoperitoneum. Trace free fluid in the pelvis. No lymphadenopathy identified. Degenerativechange involving the spine, sacroiliac joints and hips is present.[facility] ABDOMEN PELVIS W CONTRAST 2023-12-03 23:18:25EXAM: CT ABDOMEN AND PELVIS WITH CONTRAST HISTORY: abdominal pain, possible perforation, stercoral colitis COMPARISON: Outside study dated 12/02/2023 TECHNIQUE: Interpretation of outside study FINDINGS: Report from outside study is not available. Moderate-sized hiatal hernia. Adjacent free air/pneumomediastinum no longerseen. Calcified granuloma in the right lung base and minimal dependentatelectasis. Distended gallbladder with large gallstone. The liver, spleen, pancreas,adrenal glands are normal. There is mild left and mild/moderate righthydroureteronephrosis. Atherosclerotic change is present within the aortaand its branches. 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 Cote catheter and air within the bladder. Limited evaluation of thebladderdue to decompression with suspected bladder wall thickening Left periumbilical ventral hernia containing colon. Multiple diverticula inthe colon. There is very large stool ball in the rectum. The rectal wallappears thickened and there appears to be fairly significant amount ofpneumatosis with air and fecal collections within or adjacent to the rectalwall communicating with the lumen. Largest collection measures 9.8 x 3.1cm. Increasing fecal material seen extruding into the collection Increasingv olume pneumoperitoneum. Trace free fluid in the pelvis. No lymphadenopathy identified. Degenerativechange involving the spine, sacroiliac joints and hips is present.[facility] ABDOMEN PELVIS W CONTRAST 2023-12-03 23:14:34EXAM: CT ABDOMEN AND PELVIS WITH CONTRAST HISTORY: Abdominal abscess/infection suspected COMPARISON: 11/20/2023 TECHNIQUE: Interpretation of outside study FINDINGS: Report from outside study is not available. Moderate- sized hiatal hernia with adjacent free air/pneumomediastinum.Calcified granuloma in the right lung base and minimal dependentatelectasis. Distended gallbladder with large gallstone. The liver, spleen, pancreas,adrenal glands are normal. There is mild left and mild/moderate righthydroureteronephrosis. Atherosclerotic change is present within the aortaand its branches. 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 Cote catheter and air within the bladder. Limited evaluation of thebladder due to decompression with suspected bladder wall thickening Left periumbilical ventral hernia containing colon. Multiple diverticula inthe colon. There is very large stool ball in the rectum. The rectal wallappears thickened and there appears to be fairly significant amount ofpneumatosis with air and fecal collections within or adjacent to the rectalwall communicating with the lumen. Largest collection measures 9.8 x 3.1cm. Scattered small volume pneumoperitoneum. Findings are concerning forperforated stercoral colitis. Trace free fluid in the pelvis. No lymphadenopathy identified. Degenerativechange involving the spine, sacroiliac joints and hips is present.[facility] W [id number] 23:14:34EXAM: CT ABDOMEN AND PELVIS WITH CONTRAST HISTORY: Abdominal abscess/infection suspected COMPARISON: 11/20/2023 TECHNIQUE: Interpretation of outside study FINDINGS: Report from outside study is not james ilable. Moderate-sized hiatal hernia with adjacent free air/pneumomediastinum.Calcified granuloma in the right lung base and minimal dependentatelectasis. Distended gallbladder with large gallstone. The liver, spleen, pancreas,adrenal glands are normal. There is mild left and mild/moderate righthydroureteronephrosis. Atherosclerotic change is present within the aortaand its branches. 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 Cote catheter and air within the bladder. Limited evaluation of thebladder due to decompression with suspected bladder wall thickening Left periumbilical ventral hernia containing colon. Multiple diverticula inthe colon. There is very large stool ball in the rectum. The rectal wallappears thickened and there appears to be fairly significant amount ofpneumatosis with air and fecal collections within or adjacent to the re ctalwall communicating with the lumen. Largest collection measures 9.8 x 3.1cm. Scattered small volume pneumoperitoneum. Findings are concerning forperforated stercoral colitis. Trace free fluid in the pelvis. No lymphadenopathy identified. Degenerativechange involving the spine, sacroiliac joints and hips is present.[facility] Panel 21 + Lactic Vtzr6515-00-90 21:02:46* Test Item Value Reference Range Interpretation Comme nts PH (test code = 4526059811) 7.44 7.32-7.42 H PCO2 GE (test code = 2478710347) 31 41-51 L PO2 GE (test code = 2534052239) 33 25-40 HCO3 GE (test code = 1703220055) 21 24-28 L AC VBE(BEAKER) (test code = 6695579600) -3.0 mEq/L THB GE (test code = 0556742835) 9.3 g/dL 12.0-16.0 L %O2HB GE (test code = 3697357672) 63.2 % 52.0-63.0 H %COHB GE (test code = 7024117422) 1.6 % 0.0-1.5 H %METHB GE (test code = 0988358582) 0.3 % 0.4-1.5 L VOL%O2 GE (test code = 5822210833) 8.3 % 6.0-12.0 NA (test code = 3221501986) 134 mmol/L 135-145 L K+ (test code = 4816885605) 5.4 mmol/L 3.5-5.0 H AC CA IONZ (test code = 8942850181) 4.50 mg/dL 4.50-5.30 GLUCOSE (test code = 8997200367) 126 mg/dL 70-110 H LACTIC ACID (test code = 0320910086) 3.03 mmol/L 0.50-2.20 H Lab Interpretation (test cod e = 81150-6) Abnormal [facility] 21 + Lactic Kqtp4786-40-18 21:02:46* Test Item Value Reference Range Interpretation Comme nts PH (test code = 9059042465) 7.44 7.32-7.42 H PCO2 GE (test code = 0060885392) 31 41-51 L PO2 GE (test code = 4091176794) 33 25-40 HCO3 GE (test code = 4423109580) 21 24-28 L AC VBE(BEAKER) (test code = 4540362718) -3.0 mEq/L THB GE (test code = 9043035386) 9.3 g/dL 12.0-16.0 L %O2HB GE (test code = 8789257561) 63.2 % 52.0-63.0 H %COHB GE (test code = 4159034357) 1.6 % 0.0-1.5 H %METHB GE (test code = 8157998150) 0.3 % 0.4-1.5 L VOL%O2 GE (test code = 2956448463) 8.3 % 6.0-12.0 NA (test code = 1744505278) 134 mmol/L 135-145 L K+ (test code = 2573804634) 5.4 mmol/L 3.5-5.0 H AC CA IONZ (test code = 7547604896) 4.50 mg/dL 4.50-5.30 GLUCOSE (test code = 6591722715) 126 mg/dL 70-110 H LACTIC ACID (test code = 7207025348) 3.03 mmol/L 0.50-2.20 H Lab Interpretation (test cod e = 41518-4) Abnormal [facility] with [id number] 20:26:23* Test Item Value Reference Range Interpretation Comme nts WBC (test code = 6690-2) 18.25 4.30-11.10 H RBC (test code = 789-8) 3.27 3.93-5.25 L HGB (test code = 718-7) 7.7 g/dL 11.6-15.0 L HCT (test code = 4544-3) 24.4 % 35.7-45.2 L MCV (test code = 787-2) 74.6 fL 80.6-95.5 L MCH (test code = 785-6) 23.5 pg 25.9-32.8 L MCHC (test code = 786-4) 31.6 g/dL 31.6-35.1 RDW-SD (test code = 98573-5) 58.9 fL 39.0-49.9 H RDW-CV (test code = 788-0) 22.5 % 12.0-15.5 H PLT (test code = 777-3) 758 166-358 H MPV (test code = 79942-3) 9.1 fL 9.5-12.9 L NRBC/100 WBC (test code = 2154351913) 0.2 0.0-10.0 NRBC x10^3 (test code = 6532556080) 0.04 See_Comment [Automated message] The system which generated this result transmitted reference range: 10*3/?L. The reference range was not used to interpret this result as normal/abnormal. GRAN MAT (NEUT) % (test code = 770-8) 80.5 % IMM GRAN % (test code = 4982015649) 1.30 % LYMPH % (test code = 736-9) 14.5 % MONO % (test code = 5905-5) 3.2 % EOS % (test code = 713-8) 0.3 % BASO % (test code = 706-2) 0.2 % GRAN MAT x10^3(ANC) (test code = 8793571866) 14.69 10*3/uL 1.88-7.09 H IMM GRAN x10^3 (test code = 1498607220) 0.23 10*3/uL 0.00-0.06 H LYMPH x10^3 (test code = 731-0) 2.65 10*3/uL 1.32-3.29 MONO x10^3 (test code = 742-7) 0.58 10*3/uL 0.33-0.92 EOS x10^3 (test code = 711-2) 0.06 10*3/uL 0.03-0.39 BASO x10^3 (test code = 704-7) 0.04 10*3/uL 0.01-0.07 PATRIZIA CELLS (test code = 7790-9) 2+ See_Comment A [Automated message] The system which generated this result transmitted reference range: (none). The reference range was not used to interpret this result as normal/abnormal. BANDS (test code = 6052204232) MARKED INCREASED A DOHLE BODIES (test code = 7792-5) Present A Lab Interpretation (test code = 62156-2) Abnormal [facility] with Wabf5321-11-14 20:26:23* Test Item Value Reference Range Interpretation Comme nts WBC (test code = 6690-2) 18.25 4.30-11.10 H RBC (test code = 789-8) 3.27 3.93-5.25 L HGB (test code = 718-7) 7.7 g/dL 11.6-15.0 L HCT (test code = 4544-3) 24.4 % 35.7-45.2 L MCV (test code = 787-2) 74.6 fL 80.6-95.5 L MCH (test code = 785-6) 23.5 pg 25.9-32.8 L MCHC (test code = 786-4) 31.6 g/dL 31.6-35.1 RDW-SD (test code = 54570-0) 58.9 fL 39.0-49.9 H RDW-CV (test code = 788-0) 22.5 % 12.0-15.5 H PLT (test code = 777-3) 758 166-358 H MPV (test code = 78390-5) 9.1 fL 9.5-12.9 L NRBC/100 WBC (test code = 0949856695) 0.2 0.0-10.0 NRBC x10^3 (test code = 0057822554) 0.04 See_Comment [Automated message] The system which generated this result transmitted reference range: 10*3/?L. The reference range was not used to interpret this result as normal/abnormal. GRAN MAT (NEUT) % (test code = 770-8) 80.5 % IMM GRAN % (test code = 7467009597) 1.30 % LYMPH % (test code = 736-9) 14.5 % MONO % (test code = 5905-5) 3.2 % EOS % (test code = 713-8) 0.3 % BASO % (test code = 706-2) 0.2 % GRAN MAT x10^3(ANC) (test code = 6205365874) 14.69 10*3/uL 1.88-7.09 H IMM GRAN x10^3 (test code = 2065196302) 0.23 10*3/uL 0.00-0.06 H LYMPH x10^3 (test code = 731-0) 2.65 10*3/uL 1.32-3.29 MONO x10^3 (test code = 742-7) 0.58 10*3/uL 0.33-0.92 EOS x10^3 (test code = 711-2) 0.06 10*3/uL 0.03-0.39 BASO x10^3 (test code = 704-7) 0.04 10*3/uL 0.01-0.07 PATRIZIA CELLS (test code = 7790-9) 2+ See_Comment A [Automated message] The system which generated this result transmitted reference range: (none). The reference range was not used to interpret this result as normal/abnormal. BANDS (test code = [id number]) MARKED INCREASED A DOHLE BODIES (test code = 7792-5) Present A Lab Interpretation (test code = 21139-5) Abnormal [place] [id number] 20:09:14* Test Item Value Reference Range Interpretation Comme [facility] APTT Patient (test code = 3173-2) -36 Lab Interpretation (test cod e = 97283-2) Normal [facility] AustinProth[facility] Time / [id number] 20:09:14* Test Item Value Reference Range Interpretation Comme [facility] PROTIME PATIENT (test code = 5964-2) 23.6 10.1-12.6 H INR (test code = 6301-6) 2.2 Normal INR <1.1; Warfarin Therapeutic range 2.0 to 3.0 or 2.5 to 3.5, depending upon the indications. Lab Interpretation (test code = 75904-2) Abnormal [facility] AustinaPTT2024-[facility]-08 20:09:14* Test Item Value Reference Range Interpretation Comme nts APTT Patient (test code = 3173-2) 30 -36 Lab Interpretation (test cod e = 14611-8) Normal [facility] AustinProthrombin Time / [id number] 20:09:14* Test Item Value Reference Range Interpretation Comme nts PROTIME PATIENT (test code = 5964-2) 23.6 10.1-12.6 H INR (test code = 6301-6) 2.2 Normal INR <1.1; Warfarin Therapeutic range 2.0 to 3.0 or 2.5 to 3.5, depending upon the indications. Lab Interpretation (test code = 24283-4) Abnormal [facility] AustinHepatic Function Panel (46769) (ALB,T.PRO,BILI T,BU/BC,ALT,AST,ALK PHOS)2023-12-03 20:08:54* Test Item Value Reference Range Interpretation Comme nts TOTAL BILI (test code = 8747457129) 0.9 mg/dL 0.1-1.1 BILI UNCON (test code = 1827174833) 0.1 mg/dL 0.1-1.1 BILI CONJ (test code = 1918027443) 0.0 mg/dL 0.0-0.3 T PROTEIN (test code = 4852541311) 7.4 g/dL 6.3-8.2 ALBUMIN (test code = 0937948076) 3.1 g/dL 3.5-5.0 L ALK PHOS (test code = 7304162942) 141 U/L 34-122 H ALTv (test code = 1742-6) 14 U/L 5-35 AST(SGOT) (test code = 7342061865) 49 U/L 13-40 H Lab Interpretation (test cod e = 29646-0) Abnormal [facility] Met[facility] (NA, K, CL, CO2, GLUCOSE, BUN, CREATININE, CA)2023-12-03 20:08:54* Test Item Value Reference Range Interpretation Comme nts NA (test code = 9290346212) 134 mmol/L 135-145 L K (test code = 4181515350) 4.9 mmol/L 3.5-5.0 Slight hemolysis CL (test code = 9249050877) 103 mmol/L 98-108 CO2 TOTAL (test code = 6807805111) 21 mmol/L 23-31 L AGAP (test code = 2862585574) 10 2-16 BUN (test code = 0993794627) 28 mg/dL 7-23 H Slight hemolysis GLUCOSE (test code = 0232186216) 137 mg/dL 70-110 H CREATININE (test code = 2160-0) 0.96 mg/dL 0.50-1.04 CALCIUM (test code = 4111076152) 9.1 mg/dL 8.6-10.6 eGFR (test code = 65702-4) 61.8 mL/min/1.73m2 CKD-EPI eGFR (2020). Assuming creatinine has been stable day-to-day for at least three months, the eGFR indicates Category G2 (60 - 89 mL/min/1.73 m2) Lab Interpretation (test code = 32191-1) Abnormal [facility] Function [facility] (59616) (ALB,T.PRO,BILI T,BU/BC,ALT,AST,ALK PHOS)2023-12-03 20:08:54* Test Item Value Reference Range Interpretation Comme nts TOTAL BILI (test code = 2481220718) 0.9 mg/dL 0.1-1.1 BILI UNCON (test code = 9229613868) 0.1 mg/dL 0.1-1.1 BILI CONJ (test code = 9378112443) 0.0 mg/dL 0.0-0.3 T PROTEIN (test code = 5735510056) 7.4 g/dL 6.3-8.2 ALBUMIN (test code = 7125537838) 3.1 g/dL 3.5-5.0 L ALK PHOS (test code = 5862409415) 141 U/L 34-122 H ALTv (test code = 1742-6) 14 U/L 5-35 AST(SGOT) (test code = 2145601472) 49 U/L 13-40 H Lab Interpretation (test cod e = 35091-3) Abnormal [facility] Met[facility] (NA, K, CL, CO2, GLUCOSE, BUN, CREATININE, CA)2023-12-03 20:08:54* Test Item Value Reference Range Interpretation Comme nts NA (test code = 0623955646) 134 mmol/L 135-145 L K (test code = 4568802826) 4.9 mmol/L 3.5-5.0 Slight hemolysis CL (test code = 8855869399) 103 mmol/L 98-108 CO2 TOTAL (test code = 7289351372) 21 mmol/L 23-31 L AGAP (test code = 3930457750) 10 2-16 BUN (test code = 2693509572) 28 mg/dL 7-23 H Slight hemolysis GLUCOSE (test code = 8172476806) 137 mg/dL 70-110 H CREATININE (test code = 2160-0) 0.96 mg/dL 0.50-1.04 CALCIUM (test code = 2079622809) 9.1 mg/dL 8.6-10.6 eGFR (test code = 81907-7) 61.8 mL/min/1.73m2 CKD-EPI eGFR (2020). Assuming creatinine has been stable day-to-day for at least three months, the eGFR indicates Category G2 (60 - 89 mL/min/1.73 m2) Lab Interpretation (test code = 55889-3) Abnormal [facility] AustinFibrinogen2024-09-08 16:51:45* Test Item Value Reference Range Interpretation Comme nts Fibrinogen (test code = 0436512680) 949 mg/dL 167-453 H Lab Interpretation (test cod e = 38337-7) Abnormal [facility] AustinFibrinogen2024-09-08 16:51:45* Test Item Value Reference Range Interpretation Comme nts Fibrinogen (test code = 5802044471) 949 mg/dL 167-453 H Lab Interpretation (test cod e = 89648-9) Abnormal [facility] AustinActivated Partial Thrmplas [id number] 16:49:04* Test Item Value Reference Range Interpretation Comme [facility] APTT Patient (test code = 3173-2) 30 -36 Lab Interpretation (test cod e = 80153-4) Normal [facility] AustinProthrombin Time / [id number] 16:49:04* Test Item Value Reference Range Interpretation Comme nts PROTIME PATIENT (test code = 5964-2) 23.7 10.1-12.6 H INR (test code = 6301-6) 2.2 Normal INR <1.1; Warfarin Therapeutic range 2.0 to 3.0 or 2.5 to 3.5, depending upon the indications. Lab Interpretation (test code = 99300-9) Abnormal [facility] AustinAct[facility] Partial Thrmplas [id number] 16:49:04* Test Item Value Reference Range Interpretation Comme [facility] APTT Patient (test code = 3173-2) 30 26-36 Lab Interpretation (test cod e = 82400-5) Normal [facility] AustinProthrombin Time / [id number] 16:49:04* Test Item Value Reference Range Interpretation Comme nts PROTIME PATIENT (test code = 5964-2) 23.7 10.1-12.6 H INR (test code = 6301-6) 2.2 Normal INR <1.1; Warfarin Therapeutic range 2.0 to 3.0 or 2.5 to 3.5, depending upon the indications. Lab Interpretation (test code = 77929-5) Abnormal [facility] AustinType and Screen - ONCE [id number] 12:41:00 * Test Item Value Reference Range Interpretation Comme nts ABO & RH (test code = 20) A POSITIVE IAT (test code = 1185) Negative [facility] and Screen - ONCE [id number] 12:41:00 * Test Item Value Reference Range Interpretation Comme nts ABO & RH (test code = 20) A POSITIVE IAT (test code = 1185) Negative [facility] AustinLactic Acid Whole Lftfz7717-40-01 08:18:44* Test Item Value Reference Range Interpretation Comme nts LACTIC ACID (test code = 5804474608) 1.53 mmol/L 0.50-2.20 Lab Interpretation (test cod e = 36423-7) Normal [facility] AustinLactic Acid Whole Htcwp1239-25-00 08:18:44* Test Item Value Reference Range Interpretation Comme nts LACTIC ACID (test code = 4115048844) 1.53 mmol/L 0.50-2.20 Lab Interpretation (test cod e = 54975-0) Normal [facility] AustinTransthoracic echo (TTE) Wtbbqkd5575-74-00 18:29:05* Test Item Value Reference Range Interpretation Comme nts Height (test code = 5233454765) 67 in Weight (test code = 4016196786) 379 lbs Systolic BP (test code = 3573695403) 160 mmHg Diastolic BP (test code = 5185713927) 66 mmHg Heart Rate (test code = 8007638771) 82 bpm LVOT stroke volume (test code = 1072424672) 58.40 cm3 EF(Teich) (test code = 1517466803) 69.80 % LVIDD (test code = 1298275595) 4.10 cm LVIDS (test code = 4870409047) 2.50 cm Left Ventricular End Systolic Volume by Teichholz Method (test code = 9126241) 23.0 mL Left Ventricular End Diastolic Volume by Teichholz Method (test code = 6249214) 76.0 mL IVS (test code = 8808000275) 1.20 cm LVPWD (test code = 2163149312) 1.17 cm LVOT diameter (test code = 8190612554) 1.91 cm LVOT area (test code = 9729417835) 2.90 cm2 FS (test code = 6798223951) 39 % MV Peak E Chapo (test code = 9596139297) 125.1 cm/s E wave decelartion time (test code = 8264863216) 0.23 s LA Volume Index (BP) (test code = 9302723878) 34.4 mL/m2 LA volume (BP) (test code = 7243873483) 91.4 mL LVOT peak chapo (test code = 8663264685) 123.3 cm/s LVOT mn grad (test code = 8146984183) 3.0 mmHg BSA (test code = 6765336709) 2.7 m2 LA size (test code = 4949444030) 5.1 cm LAV(MOD-sp2) (test code = 1844412603) 90.40 mL LAV(MOD-sp4) (test code = 3649422131) 88.80 mL Tapse (test code = 1044882610) 1.13 cm Ao peak chapo (test code = 2486252751) 157.5 cm/s AV LVOT peak gradient (test code = 7089191712) 6.1 mmHg LVOT peak VTI (test code = 9336825861) 20.5 cm AV area peak chapo (test code = 4621085667) 2.2 cm2 LV V1 mean (test code = 8917500339) 80.90 cm/s Ao max PG (test code = 1037427418) 9.90 mm[Hg] MV Prop V (test code = 0770705599) 62.20 cm/s TR Peak Chapo (test code = 2020052066) 287.8 cm/s Triscuspid Valve Regurgitation Peak Gradient (test code = 2671010358) 33.1 mmHg Ao root diam (test code = 7765610543) 3.10 cm AV peak gradient (test code = 4285028250) 9.9 mmHg Aortic root (test code = 5987385895) 3.1 cm Ao root annulus (test code = 0049743907) 3.1 cm PW (test code = 6715824246) 1.17 cm 0.6-1.1 EF - 2D (test code = 57827281) 69.80 % Interventricular Septum Diastolic Thickness by 2D (test code = 3881138) 1.20 cm Radiology Study observation (narrative) (test code = 32991-3) JESSICA (test code = JESSICA) ?Left?Ventricle: Left ventricle size is normal. Increased wall thickness. Ventricular mass is normal. There is concentric remodeling. Normal wall motion. Normal systolic function with a visually estimated EF of 55 - 60%. Unable to assess diastolic function due to E-A fusion and arrhythmia. Normal left ventricular filling pressure. ?Right?Ventricle: Not well visualized. Right ventricle size is grossly normal. Normal systolic function. ?Tricuspid?Valve: Not well visualized. Mild transvalvular regurgitation. Right ventricular systolic pressure is 30-35 mmHg+RAP. ?Left?Atrium: Not well visualized. Left atrium is mildly dilated. Left atrium volume index is 34.4 mL/m2. Left VentricleNot well visualized. Left ventricle size is normal. Increased wall thickness. Ventricular mass is normal. There is concentric remodeling. Normal wall motion. Normal systolic function with a visually estimated EF of 55 - 60%. Unable to assess diastolic function due to E-A fusion and arrhythmia. Normal left ventricular filling pressure.Right VentricleNot well visualized. Right ventricle size is grossly normal. Normal systolic function.Left AtriumNot well visualized. Left atrium is mildly dilated. Left atrium volume index is 34.4 mL/m2.Right AtriumNot well visualized. Right atrium size is normal.IVC/SVCIVC was not well visualized.Mitral ValveNot well visualized. Moderate mitral annular calcification. Trace transvalvular regurgitation.Tricuspi d ValveNot well visualized. Mild transvalvular regurgitation. Right ventricular systolic pressure is 30-35 mmHg+RAP.Aortic ValveNot well visualized. Mildly calcified cusps. No hemodynamically significant .Pulmonic ValveNot well visualized.Ascending AortaNot well visualized.Pericardium No pericardial effusion.Study DetailsStudy quality experienced technical difficulty. A complete echocardiogram was performed using 2D, color flow Doppler and spectral Doppler. 2 mL of Patient exhibited atrial fibrillation. [facility] AustinUS RETROPERITONEAL [id number] 14:55:16 US RETROPERITONEAL LIMITED 11/21/2023 6:15 AM HISTORY: bilateral ureterohydronephrosis . COMPARISON:None. Correlation CT abdomen dated 11/20/2023. FINDINGS: RIGHT KIDNEY: The renal length measures 12.7 cm. Normal cortical thicknessand echotexture. Mild hydronephrosis with AP diameter of the renal pel vismeasuring 1.5 cm. No mass or stone. LEFT KIDNEY: Not clearly assessed due to significant bowel gases.[facility] AustinPrepare Packed RBC (in units), 1 Dnico3959-37-70 11:09:04* Test Item Value Reference Range Interpretation Comme nts Cross Match Result (test code = 4409) Compatible ISBT Blood Type Code (test code = 019809) 6200 Unit Blood Type (test code = 4410) A Pos Unit Number (test code = 4411) [id number] Blood Expiration Date & Time (test code = 018061) [id number] Status Information (test code = 4412) Issued Product Identification (test code = 4413) Red Blood Cells Product Code (test code = 4414) [id number] Performed at [facility] B Laboratory Services [facility] Blood [address] [place] [id number] Free: [phone] No. [id number] [facility] AustinLactic Acid Whole Bsjif3912-41-25 04:23:24* Test Item Value Reference Range Interpretation Comme nts LACTIC ACID (test code = 6464167615) 1.38 mmol/L 0.50-2.20 Lab Interpretation (test cod e = 51630-5) Normal [facility] AustinReticulocytes Ajuovewei1876-91-98 03:16:45* Test Item Value Reference Range Interpretation Comme nts RETIC Count Automated (test code = 2018835948) 1.32 % 0.51-1.90 RETIC Absolute Count (test c ode = 7214913667) 0.0478 0.0230-0.0950 IRF % (test code = 7860723286) 29.60 % 2.10-12.60 H RETIC-HE (test code = 4811364180) 25.1 pg 28.1-35.8 L Lab Interpretation (test cod e = 16907-5) Abnormal [facility] GLUCOSE (AUTOMATED)2023-11-21 01:30:47* Test Item Value Reference Range Interpretation Comme nts POCT GLU (test code = 3582538695) 129 mg/dL 70-110 H Lab Interpretation (test cod e = 87135-2) Abnormal [facility] GLUCOSE (AUTOMATED)2023-11-20 23:14:41* Test Item Value Reference Range Interpretation Comme nts POCT GLU (test code = 5912490216) 197 mg/dL 70-110 H Lab Interpretation (test cod e = 49845-9) Abnormal [facility] Glucose (AGE >30 DAYS) - Prior to Insulin Bolus Administration - See Nxiparwv2516-22-13 21:25:00* Test Item Value Reference Range Interpretation Comme nts POCT Glu (age>30days) (test code = 3342) 109 mg/dL 70-110 Lab Interpretation (test cod e = 20554-9) Normal [facility] GLUCOSE (AUTOMATED)2023-11-20 21:21:42* Test Item Value Reference Range Interpretation Comme nts POCT GLU (test code = 4292736431) 109 mg/dL 70-110 Lab Interpretation (test cod e = 24105-0) Normal [facility] ABDOMEN PELVIS WO [id number] 20:39:17ORDERING PHYSICIAN: PABLO CHINCHILLA HISTORY: Peritonitis or [...] atheroscleroticcalcifications. No lymphadenopathy. Bones: No acute abnormality. [facility] with [id number] 18:35:31* Test Item Value Reference Range Interpretation Comme nts WBC (test code = 6690-2) 19.72 4.30-11.10 [...] g/dL 31.6-35.1 L RDW-SD (test code = 93050-1) 55.5 fL 39.0-49.9 H RDW-CV (test code = 788-0) 20.8 % 12.0-15.5 H PLT (test code = 777-3) 410 166-358 H MPV (test code = 70849-6) 9.6 fL 9.5-12.9 NRBC/100 WBC (test code = 7883983059) 0.0 0.0-10.0 NRBC x10^3 (test code = 4440131634) See_Comment [Automated message] The system which generated this result transmitted reference range: 10*3/?L. The reference range was not used to interpret this result as normal/abnormal. GRAN MAT (NEUT) % (test code = 770-8) 87.7 % IMM GRAN % (test code = 3476584962) 1.10 % LYMPH % (test code = 736-9) 6.3 % MONO % (test code = 5905-5) 4.1 % EOS % (test code = 713-8) 0.4 % BASO % (test code = 706-2) 0.4 % GRAN MAT x10^3(ANC) (test code = 2270816145) 17.31 10*3/uL 1.88-7.09 H IMM GRAN x10^3 (test code = 1296659331) 0.22 10*3/uL 0.00-0.06 H LYMPH x10^3 (test code = 731-0) 1.24 10*3/uL 1.32-3.29 L MONO x10^3 (test code = 742-7) 0.81 10*3/uL 0.33-0.92 EOS x10^3 (test code = 711-2) 0.07 10*3/uL 0.03-0.39 BASO x10^3 (test code = 704-7) 0.07 10*3/uL 0.01-0.07 ELLIPTO/OVAL (test code = 99774-7) 2+ See_Comment A [Automated message] The system which generated this result transmitted reference range: (none). The reference range was not used to interpret this result as normal/abnormal. SPHEROCYTES (test code = 802-9) 1+ A BANDS (test code = 1954033513) Increased A TOXIC CHANGES (test code = 803-7) Present A Lab Interpretation (test code = 88671-9) Abnormal [facility] AustinLactic Acid Whole Syuho7125-66-34 17:22:29* Test Item Value Reference Range Interpretation Comme nts LACTIC ACID (test code = 7924290292) 2.98 mmol/L 0.50-2.20 H Lab Interpretation (test cod e = 62908-1) Abnormal [facility] Consult Notes Date/Time Note Provider Source 2023-12-20 09:46:00 Associated Order(s): CONSULT PHYSICAL THERAPY WOUND CARE Physical Therapy Wound Care Note: Wound Care Consult received, chart reviewed, and spoke with RN who reports that surgery team performed dressing change this morning. Per order, dressing recommendations as follows; "q6h abdominal wound, dakin's wet to dry with kerlix, ABD pad, medipore tape." No skilled PTWC at this time; will defer dressing changes to nursing. Liliana Veronica, PT, DPT Liliana Veronica PT [facility] 2023-12-18 11:00:00 Associated Order(s): CONSULT VASCULAR ACCESS Vascular Access Services VAS was consulted for midline insertion. Per nursing the current midline is functioning properly without any complications. No need for new midline at this moment. [facility] 2023-12-15 17:42:57 Associated Order(s): CONSULT WOUND, OSTOMY, OR CONTINENCE CARE TEAM Q 6 hour dressing changes are not WOCN orders but instead bedside RN orders. Dr Garner made aware. Antoinette Abbott RN 12/15/2023 5:44 PM Antoinette Abbott RN [facility] 2023-12-14 08:59:14 Summary: WOCN- WTA Follow up Attempted to see pt this AM pt is currently sleeping . Per 1:1 sitter pt confused and agitated this AM. Pt currently in restraints. NO family at bedside, sitter provided with phone number and requested a message when family is present for education. Antoinette PADILLA, RN-BC, WTA 1005- Spoke with the patients granddaughter @ bedside, she stated she has experience with ostomy care. Educational material provided to the granddaughter. Patient is confused and agitated t this time. Granddaughter is to be sole caregiver if patient discharges home. Granddaughter allowed to ask any questions. All questions asked were answered. Antoinette PADILLA, RN-BC, WTA [facility] 2023-12-12 16:01:40 Associated Order(s): CONSULT CARDIOLOGY See cardio note from today. Cardio previously consulted this admission. Associated attestation - Lencho Daugherty MD - 12/12/2023 4:15 PM CDT [facility] 2023-12-12 08:58:40 Associated Order(s): CONSULT HEMATOLOGY HEMATOLOGY CONSULT NOTE DATE OF SERVICE: 12/12/23 REASON FOR CONSULTATION: unexplained INR elevation, no coumadin, no liver failure REFERRING PHYSICIAN / PRIMARY SERVICE: Surgery CHIEF COMPLAINT: AMS DIAGNOSIS: hollow viscus perforation s/p ex lap HPI Patient confused, responsive to questioning but unable to respond appropriately, unable to provide history. Per chart review initially admitted 10/2023 for complicated UTI with obstruction, indwelling cote placed to be removed in outpatient setting. Presented to [facility] on 12/03/2023 with AMS and hollow viscus perforation. Taken for urgent ex lap with fecal disempaction, adhesion lysis, closure of rectal perforation, and sigmoidectomy with end sigmoid colostomy. Intraoperatively found to have feculent peritonitis with resulting septic shock; intubated and requiring pressor support, on abx. Successfully extubated and pressor support weaned during ICU stay. Transferred to floor. Of note had a fib since admission and during previous admission. During prior admit deferred AC for multiple reasons including anemia and patient preference. Cardiology consulted this admission, recommended initiation of heparin gtt which was started yesterday. Additionally patient has had consistently rising INR since admission from 2.0 on admission to 3.2 this AM. REVIEW OF SYSTEMS Negative unless otherwise stated above. PAST MEDICAL HISTORY Past Medical History: Diagnosis Date Paroxysmal atrial fibrillation Scoliosis Allergies: No Known Allergies HOME MEDICATIONS: No current facility-administered medications on file prior to encounter. Current Outpatient Medications on File Prior to Encounter Medication Sig Dispense Refill HYDROcodone-acetaminophen 5-325 mg tablet Take 1 tablet by mouth every 6 (six) hours as needed for Pain (scale 7-10). Indications: acute pain, chronic pain 28 tablet 0 cephALEXin 500 mg capsule Take 1 capsule by mouth every 12 (twelve) hours. 5 capsule 0 ferrous sulfate 325 mg (65 mg iron) tablet Take 1 tablet by mouth every other day. gabapentin 100 mg capsule Take 1 capsule by mouth in the morning. 30 capsule 0 sennosides 8.6 mg tablet Take 1 tablet by mouth in the morning. CURRENT MEDICATIONS: Current Facility-Administered Medications: QUEtiapine (SEROQUEL) tablet 25 mg, 25 mg, Oral, QHS, Yoni Simon MD heparin (1,000 unit/mL, 10 mL vial) for Rebolusing, 3,000 Units, Slow IV Push, FOR REBOLUSING, Corey Costello MD heparin 25,000 Units/250 mL (Premixed Bag) in 0.45 % NS, 0-3,200 Units/hr, IV Infusion, TITRATE, Corey Costello MD, Last Rate: 11 mL/hr at 12/12/23 0722, 1,100 Units/hr at 12/12/23 0722 lidocaine 1% (PF) (XYLOCAINE) injection 5 mL, 5 mL, Subcutaneous, PRN, Corey Costello MD methocarbamoL (ROBAXIN) tablet 1,000 mg, 1,000 mg, Oral, TIDPRN, Maddy Maza MD metoprolol tartrate (LOPRESSOR) tablet 25 mg, 25 mg, Oral, BID, Corey Costello MD, 25 mg at 12/11/23 225 NaCl 0.9% (NS) injection 10 mL, 10 mL, Slow IV Push, PRN, Corey Costello MD furosemide (LASIX) injection 40 mg, 40 mg, Slow IV Push, Q12H, To Schultz, , 40 mg at 12/11/23 2257 KCL (KLOR-CON M20) tablet 40 mEq, 40 mEq, Oral, BID, Corey Costello MD, 40 mEq at 12/11/23 2257 sucralfate (CARAFATE) tablet 1 g, 1 g, Oral, AC+HS, Corey Costello MD, 1 g at 12/10/23 1150 acetaminophen (TYLENOL) tablet 1,000 mg, 1,000 mg, Oral, Q8H, Corey Costello MD, 1,000 mg at 12/11/23 1351 fluticasone propionate 50 mcg/actuation nasal spray 1 [place], 1 [place], Nasal, BID, Donna Garner MD, 1 [place] at 12/11/23 0840 pantoprazole (PROTONIX) EC tablet 40 mg, 40 mg, Oral, DAILY, Sukhwinder Almodovar MD, 40 mg at 12/11/23 0839 sodium chloride (OCEAN MIST NASAL) 0.65 % nasal spray 1 [place], 1 [place], Nasal, BID, Donna Garner MD, 1 [place] at 12/11/23 0840 Lidocaine (LIDOCARE) 4 % patch 1 Patch, 1 Patch, Topical, DAILY, Beckie Carreon MD, 1 Patch at 12/11/23 0839 piperacillin-tazobactam (ZOSYN) 3.375 g in NaCl 0.9% (NS) 100 mL MINI-BAG, 3.375 g, IV Piggyback, Q8H ABX, Beckie Carreon MD, Stopped at 12/12/23 0242 traMADoL (ULTRAM) tablet 50 mg, 50 mg, Oral, Q6HPRN, Beckie Carreon MD, 50 mg at 12/10/23 1149 lactated ringers IV infusion 1,000 mL, 1,000 mL, IV Infusion, CONTINUOUS, Corey Costello MD, Last Rate: 10 mL/hr at 12/10/23 1813, Rate Verify at 12/10/23 1813 mineral oil (MINERAL OIL EXTRA HEAVY) oral liquid 30 mL, 30 mL, Oral, DAILY, Corey Costello MD, 30 mL at 12/11/23 0838 polyethylene glycol 3350 powder 17 g, 17 g, Oral, DAILY, Corey Costello MD, 17 g at 12/11/23 0839 sodium hypochlorite 0.25% (DAKIN'S SOLUTION) solution, , Topical, QAM, Donna Garner MD, Given by Provider at 12/11/23 0600 chlorhexidine (PERIDEX) 0.12 % mouthwash 15 mL, 15 mL, Oral (Swish And Spit Out), BID, Yoni Simon MD, 15 mL at 12/11/23 0839 naloxone (NARCAN) injection 0.4 mg, 0.4 mg, Slow IV Push, PRN, Taylor Segundo MD ondansetron (ZOFRAN (PF)) injection 4 mg, 4 mg, Slow IV Push, Q6HPRN, Hina Cui MD PHYSICAL EXAM Vitals: 12/11/23 1536 12/11/23 1935 12/11/23 2326 12/12/23 0823 BP: 130/65 (!) 148/63 (!) 147/88 129/79 BP Location: Left arm Left arm Patient Position: Supine Supine Pulse: 88 86 98 107 Resp: 20 18 19 18 Temp: 35.6 ?C (96 ?F) 36.4 ?C (97.5 ?F) 36.8 ?C (98.2 ?F) 36.3 ?C (97.4 ?F) TempSrc: Temporal Artery Temporal Artery SpO2: 99% 99% 100% 99% Weight: Height: Wt Readings from Last 3 Encounters: 12/03/23 170.1 kg (375 lb) 11/20/23 171.9 kg (379 lb) Intake/Output Summary (Last 24 hours) at 12/12/2023 0902 Last data filed at 12/12/2023 0600 Gross per 24 hour Intake 130 ml Output 3061 ml Net -2931 ml Appearance: patient alert and in no acute distress HEENT: NCAT, MMM Abdomen: ROSA drains and colostomy in place. ROSA drains with feculent material. Large midline wound with towel packing in place. Extremities: no peripheral edema Skin: warm and dry, pIVs in place with no evidence of bleeding or bruising : cote in place without gross hematuria Neurologic: AO x 1 (person) Psych: cooperative, appropriate mood and affect LABS/IMAGING - Reviewed; Pertinent results as below: Latest Reference Range & Units 11/20/23 22:05 12/03/23 03:05 12/03/23 11:27 12/03/23 14:40 12/04/23 03:14 12/11/23 15:52 12/11/23 15:53 12/11/23 22:53 12/12/23 05:45 PROTIME 10.1 - 12.6 Seconds 13.1 (H) 22.1 (H) 23.7 (H) 23.6 (H) 21.6 (H) 32.4 (H) 34.9 (H) PT INR - 1.2 2.0 2.2 2.2 2.0 3.0 3.2 APTT 26 - 36 Seconds 22 (L) 32 30 30 32 38 (H) 43 (H) 45 (H) (H): Data is abnormally high (L): Data is abnormally low Latest Reference Range & Units 12/03/23 03:05 12/03/23 14:40 12/12/23 05:45 ALK PHOS 34 - 122 U/L 176 (H) 141 (H) 111 ALTv 5 - 35 U/L 13 14 18 AST(SGOT) 13 - 40 U/L 27 49 (H) 67 (H) (H): Data is abnormally high Recent Labs 12/12/23 0545 PLT 369* ASSESSMENT: Zarina Grier is a 73 year old female with the following active problems: Elevated INR Hollow viscus perforation 2/2 severe constipation s/p ex lap 12/03/2023 with sigmoidectomy and end sigmoid colostomy Feculent peritonitis 2/2 above on abx c/b septic shock, resolved AMS AHRF 2/2 volume overload requiring MV, improved NAOMY, resolved A fib, episodic RVR Steadily uptrending INR of unclear etiology since admission. No evidence of liver injury or chronic liver disease on imaging or based on labwork. No hx of AC use aside from DVT ppx -> heparin gtt which was initiated within the last 24H. Differential of elevated INR aside of chronic liver disease or AC use is predominantly 2/2 longstanding chronic pathology of which we are unaware in this patient. Low suspicion for DIC at this time given no evidence of spontaneous clotting/bleeding. Could possibly be 2/2 vitamin K deficiency. RECOMMENDATIONS: - give 5 mg IV Vitamin K - recheck INR in 48H, if unimproved can give another 5 mg IV vitamin K - if no response to vitamin K administration will investigate further Hematology Consult Service will continue to follow this patient with you. Thank you for involving us in the care of this interesting patient. Please call with any questions or concerns. Case was discussed with Dr. Nunes, Faculty. Pia Aleman MD PGY-3 | Internal Medicine Associated attestation - Alex Nunes MD - 12/15/2023 6:07 PM CDT I personally examined the patient on 12/12/[address] Aleman's resident note as written . I actively participated in the decision-making process. Please see the resident's note for additional details. INTERNAL MEDICINE [facility] 2023-12-11 16:00:00 Associated Order(s): CONSULT VASCULAR ACCESS [facility] VAS was consulted for midline insertion. Consult has been acknowledged, and the patient's medical chart has been reviewed. Please see procedural note. [facility] 2023-12-10 11:16:00 Associated Order(s): CONSULT ADULT PHYSICAL THERAPY PT Note Duplicate Consult. PT will continue to follow. Donny Montana PT, DPT Rehabilitation Services [facility] 2023-12-10 11:07:00 Associated Order(s): CONSULT ADULT OCCUPATIONAL THERAPY 12/11/2023 OCCUPATIONAL THERAPY NOTE: Duplicate consult. Maryjane Hernandez, OTR License #[id number] Maryjane Hernandez OT [facility] 2023-12-07 09:32:00 Associated Order(s): CONSULT ADULT OCCUPATIONAL THERAPY OT GENERAL EVALUATION Consult received via [employer], EMR reviewed and evaluation completed 12/07/23. Patient referred to occupational therapy for evaluation and treatment secondary to colon perforation and s/p exploratory laparotomy. Seen in conjunction with Keshav Romero, PT and Getachew Burnette, SPT secondary to anticipated limited activity tolerance. Billing for OT portion only. Patient agreeable to participate in occupational therapy. Discharge Recommendations: Therapy Needs and Potential: - Patient would benefit from continued skilled occupational therapy services to address: Decline in basic activities of daily living, Decline in instrumental activities of daily living, Decline in cognition, Decreased strength, Decreased range of motion, Decreased endurance, and Decreased coordination - Patient demonstrates good potential to improve and meet therapy goals with further skilled occupational therapy services. - Patient appears motivated to improve their BADLS AND IADLs and return to their previous level of function. - Patient exhibits limited activity tolerance. - Patient able to follow commands: 1-step Yes, Multi-step No, Inconsistencies Yes Challenges to Home Transition: - Requires physical assistance for BADLS - Requires physical assistance for IADLS - Decreased safety awareness/judgement - Increased risk of falls - Environmental barriers - combo shower Equipment Recommendations: Hospital bed and Mechanical lift; equipment recommendations may change as patient progresses to tolerating EOB/OOB activity PLAN OF CARE: At least 3x/week Precautions: Weight bearing status: NA General: Fall, high flow nasal cannula (patient with HFNC out of nares upon arrival and satting 97-100%, RN reporting okay with HFNC being doffed), and cote, and ICU lines and tubes and ROSA drain x2 Bracing: N/A Subjective: "I need water." Current Occupational Performance and/or Treatment: AM-PAC 6 Clicks (Raw Score 0=Dependent, 24=Independent; Low function Raw Score 0= Dependent, 32=Independent): Raw Score - Daily Activity (Low Function): 15 T-Scale Score - Daily Activity (Low Function): 26.28 Feeding: Total Assistance, NPO. Patient incessantly asking for water throughout session despite constant education and re-education on purpose of NPO status and timeline. Grooming: Maximum Assistance, to wipe face with damp washcloth at bed level. Patient attempts to complete task however with RUE however unable to fully complete task and requests help to fully participate. LB Dressing: Maximum Assistance, to don Prevalon boots at bed level. Toileting Hygiene: Total Assistance, cote Functional Mobility: Patient unable to tolerate bed mobility at this time secondary to inconsistently following commands and altered mental status. Patient able to tolerate HOB elevated to 45 degrees for approximately 5 minutes then insistent of lowering the bed. Patient then incessantly asking for the bed to be raised and lowered for the remainder of the session. Patient/caregiver educated on: ADL training, Compensatory techniques/adaptive strategies, Deep breathing, Role of OT, Safety awareness, and importance of participation in ADLs relative to individual functionality (e.g., grooming, dressing, bathing, toileting, feeding, and functional mobility, etc.) and participation in simple UE ROM/strengthening regimen for increased/continued functional participation in ADLs and deconditioning prevention. Patient left semireclining in bed with call bonilla in reach. Vital signs stable . Please, see full evaluation below for more detail. OT EVALUATION: 73 year old female Admit date: 12/03/2023 Date of onset: 12/03/2023 Admit Diagnosis: Colon perforation [K63.1] OT Diagnosis: Impaired BADL independence, Impaired IADL independence, Weakness, Decreased endurance, Impaired self-care mobility, Limited joint ROM, and Impaired cognition PMH: Past Medical History: Diagnosis Date Paroxysmal atrial fibrillation Scoliosis PSH: Past Surgical History: Procedure Laterality Date BOWEL RESECTION N/A 12/03/2023 Surgeon: Taylor Segundo MD; Location: [facility] LOCATION SECTION 1985 EXPLORATORY LAPAROTOMY N/A 12/03/2023 Surgeon: Taylor Segundo MD; Location: [facility] LOCATION FECAL DISIMPACTION N/A 12/03/2023 Surgeon: Taylor Segundo MD; Location: [facility] OR LOCATION TUBAL LIGATION PAIN: Patient does not formally rate pain however shouts out in pain when moving GARCIA Les at bed level. OCCUPATIONAL ROLES/HOME ENVIRONMENT: Patient is a poor historian, occupational profile taken, in part, from chart review. Home environment: Lives with spouse and Single story home. 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 Oral Motor: WFL Communication: Able to verbalize needs Yes Other: N/A Vision: WFL Yes Other: reading glasses Hearing: good; no issues reported COGNITION: Orientation: person Follows Commands: 1-step Yes Multi-step No Inconsistencies Yes Safety Awareness/Judgment: Fair, Lacks insight to deficits, and Requires frequent cueing PROBLEM LIST: Decreased independence with ADL, Impaired postural control, Decreased strength/endurance for functional activity, Impaired safety awareness, and Impaired Cognition REHAB POTENTIAL/PROGNOSIS: fair PATIENT/FAMILY GOALS: To get a drink of water and be comfortable. TREATMENT/INTERVENTION PLAN: Patient/Caregiver Education, Equipment recommendations, Daily living activities, Therapeutic exercises, and Cognitive retraining GOAL(S): By discharge, patient will increase independence in daily living skills as follows: 1 Patient will perform toilet transfer or 3 in 1 BSC transfer with moderate assistance. 2 Patient will don/doff shirt with independence. 3 Patient will complete 2 grooming tasks with independence while seated EOB unsupported. 4 Patient will attend to 2 functional task(s) with less than 2 cues for redirection to task. 5 Patient will increase endurance for functional activity as evidenced by ability to sustain 20 minutes of active participation. 6 Patient/caregiver will verbalize/demonstrate understanding/proficiency in the following home programs: Adaptive equipment , 7 Edema management, 8 Energy conservation, 9 Fall prevention, and 10 General strengthening PATIENT-FAMILY TEACHING Patient provided with preferred teaching of verbal information on ADL training, Compensatory techniques/adaptive strategies, Deep breathing, Role of OT, Safety awareness, and importance of participation in ADLs relative to individual functionality (e.g., grooming, dressing, bathing, toileting, feeding, and functional mobility, etc.) and participation in simple UE ROM/strengthening regimen for increased/continued functional participation in ADLs and deconditioning prevention. Shows readiness to learn. Verbal instruction teaching provided. Individual is able to read and verbalizes understanding of teaching provided and accurately returns demonstration of skill. Muna Price, OTR, OTD Pager: [phone] Total Timed Treatment Codes: 23 Min Total Treatment Time: 28 Min Patient Complexity Level High - An [...] to enable patient to complete evaluation component. [facility] 2023-12-07 09:30:00 Associated Order(s): CONSULT ADULT PHYSICAL THERAPY Patient agreeable to working with physical therapy. Patient met semi reclined in bed. Recommend nursing staff utilize mechanical lift to safely assist patient with mobility out of the bed or chair. Pt was seen in conjunction with OT due to the complexity of her case. Pt was seen with JOCE Washington, UVALDO. Pt will be billed for PT portion only. PHYSICAL THERAPY EVALUATION Consult received, chart reviewed and evaluation complete this date. Patient is referred to PT for evaluation and treatment. Patient is a 73 year old female who presents to hospital for Colon perforation [K63.1] NAOMY Septic and distributive shock Respiratory alkalosis with metabolic acidosis compensation Oliguria A. Fib. Discharge Recommendations: Therapy Needs and Potential: Patient would benefit from continued physical therapy services to address: decline in bed mobility decline in transfers decline in gait and/or balance decline w/c mobility decreased strength decreased endurance Patient demonstrates fair potential to improve and meet therapy goals with further physical therapy services. Challenges to Home Transition: increased risk of falls decreased caregiver availability decreased safety awareness environmental barriers Equipment recommendations: mechanical lift Current Functional Status and/or Treatment: AM-PAC 6 Clicks (Raw Score 0=Dependent, 24=Independent; Low function Raw Score 0= Dependent, 32=Independent): Raw Score - Basic Mobility (Low Function): 11 T-Scale Score - Basic Mobility (Low Function): 16.55 Bed Mobility: unable to tolerate due to altered status. Attempted to see if patient could tolerate raising head of bed 45 degrees for 5 minutes. She insisted that the bed be lowered, but then asked for it to be raised again. Pt is total assists with all bed mobility Dizziness No PRE: BP 143/ 65 (88) SPO2 100% High Flow HR 92 bpm During attempt of long sitting Head of bed 45 deg BP 155/83 (102) SPO2 100% RA HR 91 bpm POST : 30 deg Head of bed BP 133/87 (100) SPO2 99% RA HR 91 bpm Transfers: Pt was not able to tolerate because of reasons stated above Ambulation: Inappropriate for reasons stated above. Therapeutic exercise: Pt was not able to tolerate any exercise due to altered status. Patient was left with prevalon boots to reduce risk of developing bed sores. Worked on proper positioning by putting pillows under her legs and arms. Functional Outcome Measures: (Values within the past 12 hours) NT- NA at this time After session, patient semi reclined in bed. Call button provided. Coordinated care with nurse. PLAN OF CARE: While in the hospital, PT will follow patient at least 3 times per week,once or twice a day, per patient's tolerance and needs. See below for complete details. Admit Date: 12/03/2023 Hospital Diagnosis:Colon perforation [K63.1] PT Diagnosis: Difficulty walking, Weakness, Malaise/fatigue, Dyspnea, and Pain Weight Bearing Precaution: NA General Precautions: PPE used:Gloves, General, Fall,Cote catheter, IV x 4, dialysis catheter, closed suction drain x 2 Bracing/Cast present or required:N/A PMH: Past Medical History: Diagnosis Date Paroxysmal atrial fibrillation Scoliosis PSH: Past Surgical History: Procedure Laterality Date BOWEL RESECTION N/A 12/03/2023 Surgeon: Taylor Segundo MD; Location: [facility] LO SECTION 1985 EXPLORATORY LAPAROTOMY N/A 12/03/2023 Surgeon: Taylor Segundo MD; Location: [facility] LO FECAL DISIMPACTION N/A 12/03/2023 Surgeon: Taylor Segundo MD; Location: [facility] LO TUBAL LIGATION Prior Living Situation: lives with their spouse and in a house, DME: Single Point Cane, transport chair Prior level of Mobility: per PT note from previous hospital stay: "house hold ambulation, ambulates with 2 straight Cane short distances, and reports of at least 5 falls in the last 6 months" Suspected ischemic or hemorraghic stroke:No Subjective: pt insisted that she wanted water but was told it isnt safe for her at the moment. Patient/Family Goals: 'to move" Patient/Family verbalizes understanding of condition: no PAIN: Pt reported pain when moving her legs but was unable to rate. COMMUNICATION Primary Language: Cypriot Able to Verbalize needs: Yes Vision:good; no issues reported Hearing:hard of hearing ORIENTATION/COGNITION: Oriented to: pt was gave incorrect last night and was unable to remember location or date Awake: Yes Alert: Yes Dizzy: No Follows Commands: No 1-Step No Multi-Step No Inconsistent: Yes NEUROLOGICAL Light Touch: within functional limits bilateral LE, Heel to zendejas: NT Tone: WNL BALANCE: Sitting: Static: NT Dynamic: NT Standing: Static: NT Dynamic: NT RANGE OF MOTION: within functional limits bilateral LE, STRENGTH: 2/5 (P), bilateral ankles ENDURANCE: Poor, Nasal canula SKIN INTEGRITY: not intact, please see nurses note PROBLEM LIST: Decline in bed mobility, Decline in gait, Decline in transfers, Decreased strength, Decreased endurance, Decreased balance, Safety awareness deficits, Pain, Decreased Coordination, and Decreased Motor Planning ASSESSMENT: Patient is a 73 year old female seen secondary to the above listed diagnosis. Patient would benefit from continued PT to address the above listed deficits to maximize independence and safety with functional mobility. Rehabilitation Potential: fair Goals: The following goals are to maximize independence and safety with functional mobility to eventually return to prior living situation and prior functional status. Upon discharge, patient and/or family will demonstrate the following: tolerate head of bed elevation > 45? for 5 min. 1. Rolling: Minimal Assistance Bridging: Minimal Assistance Supine-sit: Minimal Assistance Sit to supine: Minimal Assistance Sitting balance Fair Scooting to edge of bed: Minimal Assistance 2. Sit to stand: Minimal Assistance using rolling Walker. Stand to sit: Minimal Assistance using rolling Walker. Stand pivot transfer: Minimal Assistance 3. Independent with ambulation, Feet: 300 using RW. Treatment Plan: Gait training, Therapeutic exercise, Transfer training, Balance training, Bed mobility training, Equipment needs assessment, Safety education, patient/caregiver education, Pain management, and Neuromuscular Re-Education PATIENT EDUCATION: Patient provided with preferred teaching of verbal information on role of PT, plan of care, discharge planning. Barriers to learning include cognitive limitations. Verbal instruction teaching provided. Individual has difficulty with reading and not receptive to teaching. Total Time Tx Codes in Minutes: 23 min Total Treatment Time in Minutes: 33 min SERAFIN Avilez I was present and participated throughout the session and agree with the documentation as written by the student therapist on the encounter dated 12/07/23. Angus Romero PT, DPT [facility] Physical Therapy Rehabilitation Services A physical therapy evaluation of high complexity was completed based on meeting at the criteria below: A history of present problem with at least 3 or more personal factors (includes environmental factors) and/or comorbidities that impact the plan of care An examination of body systems using standardized tests and measures addressing a total of at least 4 or more elements from any of the following: body structures and functions, activity limitations, and/or participation limitations A clinical presentation with unstable and unpredictable characteristics [facility] 2023-12-05 14:51:43 Associated Order(s): CONSULT NEPHROLOGY NEPHROLOGY CONSULT NOTE Consultation requested by: Service: Trauma ICU Reason for Consultation: NAOMY Date of Service: 12/05/2023 History of Present Illness: Zarina Grier is a 73 year old female with PMHx of afib, morbid obesity, and constipation transferred from [facility] for altered mental status and found to have a hollow viscus perforation. She is day 1 post op ex lap with bowel resection and fecal disimpaction. She was admitted to medicine on 11/20/23 for a UTI and was found to have rate controlled atrial fibrillation. She is currently intubated. Nephro consulted as patient developed NAOMY 2/2 septic and distributive shock 2/2 from post exploratory laparotomy with viscus perforation. Patient was anuric, but cote was repositioned and now is making more urine. She was hypovolemic and received 1 L of LR and 2-3 units of 25% of 25 g Albumin plus now running 150 mL/hr of LR. Cr slowly rising to 2.53 with baseline 0.9 prior. However ABG reveals Respiratory alkalosis with metabolic acidosis compensation: 7.42/29/132/19. Given no urgent need for HD and clearance, but rather next impending possible concern would be hypervolemia: with worsening CXR today but repositioned cote with increase in UOP, recommend to decrease LR to 100 mL/hr. If patient becomes more hypervolemic, will recommend to decrease or stop LR and give 120 mg IV Lasix. PAST MEDICAL HISTORY Past Medical History: Diagnosis Date Paroxysmal atrial fibrillation Scoliosis Past Surgical History: Procedure Laterality Date BOWEL RESECTION N/A 12/03/2023 Surgeon: Taylor Segundo MD; Location: [facility] OR LOCATION SECTION 1985 EXPLORATORY LAPAROTOMY N/A 12/03/2023 Surgeon: Taylor Segundo MD; Location: [facility] OR LOCATION FECAL DISIMPACTION N/A 12/03/2023 Surgeon: Taylor Segundo MD; Location: [facility] OR LOCATION TUBAL LIGATION No Known Allergies Past Medical History: Diagnosis Date Paroxysmal atrial fibrillation Scoliosis PHYSICAL EXAMINATION Vitals: 12/05/23 1400 BP: 138/72 Pulse: 93 Resp: 22 Temp: 37.9 ?C (100.2 ?F) SpO2: 98% General: Intubated and sedated HEENT: pupils equal, round, reactive to light; extraocular movements intact; oropharynx clear. Lungs: clear to auscultation bilaterally, +crackles, or no wheezes. Cardio: S1, S2 normal; no murmurs, rubs or gallops, regular rate and rhythm. Abdomen: BS4Q, soft; non-tender; non-distended. No guarding, rebound. Extremities: no clubbing, cyanosis. + BLE edema. Skin: no rashes Neuro: cranial nerves II through XII grossly intact; sensation grossly intact; muscle strength 5 out of 5 in all four extremities HD access: right IJ temp line LABORATORY Recent Results (from the past 24 hour(s)) AC Panel 20 + Lactic Acid Collection Time: 12/04/23 2:53 PM Result Value Ref Range PH 7.40 7.35 - 7.45 PCO2 27 (L) 35 - 45 mmHg PO2 149 (H) 80 - 100 mmHg HCO3 16 (L) 22 - 26 mEq/L BE -7.6 (L) -3.0 - 3.0 mEq/L THB 10.5 (L) 12.0 - 16.0 g/dL %O2HB 98.1 94.0 - 99.0 % %COHB ART 1.1 0.0 - 1.5 % %METHB ART 0.3 (L) 0.4 - 1.5 % VOL%O2 ART 14.8 (L) 15.0 - 23.0 % NA 134 (L) 135 - 145 mmol/L K+ 5.1 (H) 3.5 - 5.0 mmol/L AC CA IONZ 4.30 (L) 4.50 - 5.30 mg/dL GLUCOSE 97 70 - 110 mg/dL LACTIC ACID 4.39 (H) 0.50 - 2.20 mmol/L Transthoracic echo (TTE) DIMAS Collection Time: 12/04/23 3:36 PM Result Value Ref Range Height 68 in Weight 375 lbs Systolic BP 195 mmHg Diastolic BP 165 mmHg Heart Rate 109 bpm BSA 2.7 m2 LVIDD 4.90 cm Left Ventricular End Diastolic Volume by Teichholz Method 115.2 mL IVS 0.92 cm Interventricular Septum Diastolic Thickness by 2D 0.92 cm LVPWD 1.02 cm PW 1.02 0.6 - 1.1 cm EF(Teich) 60.40 % LVIDS 3.30 cm Left Ventricular End Systolic Volume by Teichholz Method 45.7 mL FS 32 % EF - 2D 60.40 % A4C EF 58.60 % EF(sp4-el) 55.90 % SV(MOD-sp4) 65.80 mL SV(sp4-el) 64.20 mL LV Diastolic Volume (BP) 114.6 mL A2C EF 72.10 % EF(MOD-bp) 65.70 % EF(sp2-el) 74.20 % LV Systolic Volume (BP) 39.3 mL SV(MOD-bp) 75.30 mL SV(MOD-sp2) 78.80 mL EF 66 Left Ventricular Stroke Volume by 2-D Biplane-MOD 75.3 mL LV Diastolic Volume Index (BP) 42.4 mL/m2 LV Systolic Volume Index (BP) 14.6 mL/m2 Cbc with Diff Collection Time: 12/04/23 5:35 PM Result Value Ref Range WBC 22.38 (H) 4.30 - 11.10 10*3/?L RBC 3.69 (L) 3.93 - 5.25 10*6/?L HGB 8.9 (L) 11.6 - 15.0 g/dL HCT 28.1 (L) 35.7 - 45.2 % MCV 76.2 (L) 80.6 - 95.5 fL MCH 24.1 (L) 25.9 - 32.8 pg MCHC 31.7 31.6 - 35.1 g/dL RDW-SD 57.0 (H) 39.0 - 49.9 fL RDW-CV 21.1 (H) 12.0 - 15.5 % PLT 692 (H) 166 - 358 10*3/?L MPV 9.1 (L) 9.5 - 12.9 fL NRBC/100 WBC 0.5 0.0 - 10.0 /100 WBCs NRBC x10 3 0.12 10*3/?L GRAN MAT (NEUT) % 84.9 % IMM GRAN % 2.90 % LYMPH % 8.6 % MONO % 3.3 % EOS % 0.0 % BASO % 0.3 % GRAN MAT x10 3 (ANC) 19.00 (H) 1.88 - 7.09 10*3/uL IMM GRAN x10 3 0.65 (H) 0.00 - 0.06 10*3/uL LYMPH x10 3 1.92 1.32 - 3.29 10*3/uL MONO x10 3 0.74 0.33 - 0.92 10*3/uL EOS x10 3 <0.03 (L) 0.03 - 0.39 10*3/uL BASO x10 3 0.06 0.01 - 0.07 10*3/uL PATRIZIA CELLS 2+ (A) (none) BANDS MARKED INCREASED (A) DOHLE BODIES Present (A) Basic Metabolic Panel (NA, K, CL, CO2, GLUCOSE, BUN, CREATININE, CA) Collection Time: 12/04/23 5:35 PM Result Value Ref Range NA 134 (L) 135 - 145 mmol/L K 5.1 (H) 3.5 - 5.0 mmol/L CL 106 98 - 108 mmol/L CO2 TOTAL 16 (L) 23 - 31 mmol/L AGAP 12 2 - 16 BUN 34 (H) 7 - 23 mg/dL GLUCOSE 102 70 - 110 mg/dL CREATININE 2.15 (H) 0.50 - 1.04 mg/dL CALCIUM 8.0 (L) 8.6 - 10.6 mg/dL eGFR 23.5 mL/min/1.73m2 AC Panel 20 + Lactic Acid Collection Time: 12/04/23 8:49 PM Result Value Ref Range PH 7.42 7.35 - 7.45 PCO2 28 (L) 35 - 45 mmHg PO2 155 (H) 80 - 100 mmHg HCO3 18 (L) 22 - 26 mEq/L BE -6.2 (L) -3.0 - 3.0 mEq/L THB 7.1 (LL) 12.0 - 16.0 g/dL %O2HB 97.8 94.0 - 99.0 % %COHB ART 1.5 0.0 - 1.5 % %METHB ART 0.3 (L) 0.4 - 1.5 % VOL%O2 ART 10.1 (L) 15.0 - 23.0 % NA 134 (L) 135 - 145 mmol/L K+ 5.1 (H) 3.5 - 5.0 mmol/L AC CA IONZ 4.20 (L) 4.50 - 5.30 mg/dL GLUCOSE 104 70 - 110 mg/dL LACTIC ACID 3.00 (H) 0.50 - 2.20 mmol/L AC Panel 20 + Lactic Acid Collection Time: 12/04/23 10:58 PM Result Value Ref Range PH 7.41 7.35 - 7.45 PCO2 28 (L) 35 - 45 mmHg PO2 115 (H) 80 - 100 mmHg HCO3 17 (L) 22 - 26 mEq/L BE -6.7 (L) -3.0 - 3.0 mEq/L THB 8.7 (L) 12.0 - 16.0 g/dL %O2HB 97.0 94.0 - 99.0 % %COHB ART 1.5 0.0 - 1.5 % %METHB ART 0.3 (L) 0.4 - 1.5 % VOL%O2 ART 12.1 (L) 15.0 - 23.0 % NA 133 (L) 135 - 145 mmol/L K+ 5.1 (H) 3.5 - 5.0 mmol/L AC CA IONZ 4.30 (L) 4.50 - 5.30 mg/dL GLUCOSE 104 70 - 110 mg/dL LACTIC ACID 2.10 0.50 - 2.20 mmol/L Cbc with Diff Collection Time: 12/05/23 3:34 AM Result Value Ref Range WBC 22.12 (H) 4.30 - 11.10 10*3/?L RBC 3.08 (L) 3.93 - 5.25 10*6/?L HGB 7.3 (L) 11.6 - 15.0 g/dL HCT 22.8 (L) 35.7 - 45.2 % MCV 74.0 (L) 80.6 - 95.5 fL MCH 23.7 (L) 25.9 - 32.8 pg MCHC 32.0 31.6 - 35.1 g/dL RDW-SD 56.0 (H) 39.0 - 49.9 fL RDW-CV 21.4 (H) 12.0 - 15.5 % PLT 614 (H) 166 - 358 10*3/?L MPV 8.9 (L) 9.5 - 12.9 fL NRBC/100 WBC 0.3 0.0 - 10.0 /100 WBCs NRBC x10 3 0.06 10*3/?L GRAN MAT (NEUT) % 82.5 % IMM GRAN % 4.10 % LYMPH % 9.4 % MONO % 3.8 % EOS % 0.0 % BASO % 0.2 % GRAN MAT x10 3 (ANC) 18.23 (H) 1.88 - 7.09 10*3/uL IMM GRAN x10 3 0.91 (H) 0.00 - 0.06 10*3/uL LYMPH x10 3 2.09 1.32 - 3.29 10*3/uL MONO x10 3 0.84 0.33 - 0.92 10*3/uL EOS x10 3 <0.03 (L) 0.03 - 0.39 10*3/uL BASO x10 3 0.04 0.01 - 0.07 10*3/uL PATRIZIA CELLS 2+ (A) (none) BANDS Increased (A) Basic Metabolic Panel (NA, K, CL, CO2, GLUCOSE, BUN, CREATININE, CA) Collection Time: 12/05/23 3:34 AM Result Value Ref Range NA 134 (L) 135 - 145 mmol/L K 5.0 3.5 - 5.0 mmol/L CL 104 98 - 108 mmol/L CO2 TOTAL 16 (L) 23 - 31 mmol/L AGAP 14 2 - 16 BUN 38 (H) 7 - 23 mg/dL GLUCOSE 121 (H) 70 - 110 mg/dL CREATININE 2.53 (H) 0.50 - 1.04 mg/dL CALCIUM 8.1 (L) 8.6 - 10.6 mg/dL eGFR 19.3 mL/min/1.73m2 Magnesium Collection Time: 12/05/23 3:34 AM Result Value Ref Range MAGNESIUM 2.1 1.7 - 2.4 mg/dL Phosphorus Collection Time: 12/05/23 3:34 AM Result Value Ref Range PHOSPHORUS 4.9 2.5 - 5.0 mg/dL AC Panel 20 + Lactic Acid Collection Time: 12/05/23 3:34 AM Result Value Ref Range PH 7.43 7.35 - 7.45 PCO2 28 (L) 35 - 45 mmHg PO2 112 (H) 80 - 100 mmHg HCO3 18 (L) 22 - 26 mEq/L BE -5.3 (L) -3.0 - 3.0 mEq/L THB 7.9 (LL) 12.0 - 16.0 g/dL %O2HB 97.3 94.0 - 99.0 % %COHB ART 0.7 0.0 - 1.5 % %METHB ART 0.3 (L) 0.4 - 1.5 % VOL%O2 ART 11.0 (L) 15.0 - 23.0 % NA 134 (L) 135 - 145 mmol/L K+ 5.1 (H) 3.5 - 5.0 mmol/L AC CA IONZ 4.30 (L) 4.50 - 5.30 mg/dL GLUCOSE 120 (H) 70 - 110 mg/dL LACTIC ACID 1.95 0.50 - 2.20 mmol/L Acute Care Arterial Blood Gas. 30 minutes post ventilation. Collection Time: 12/05/23 12:35 PM Result Value Ref Range PH 7.42 7.35 - 7.45 PCO2 29 (L) 35 - 45 mmHg PO2 132 (H) 80 - 100 mmHg HCO3 19 (L) 22 - 26 mEq/L BE -4.5 (L) -3.0 - 3.0 mEq/L RADIOLOGY: XR CHEST 1 VW Result Date: 12/05/2023 1. Stable cardiomegaly. 2. Right IJ catheter and endotracheal tube are present as above. RL: [id number] HS:Y CHEST 1 VW Result Date: 12/05/2023 Impression: Right internal jugular central venous catheter terminates just past the cavoatrial junction. Stable cardiomegaly without acute pulmonary process. END REPORT RL: [id number] AFC: [id number] CHEST 1 VW Result Date: 12/05/2023 Impression: Endotracheal tube terminates 5.1 cm above the sera. Right internal jugular central venous catheter terminates in the right atrium, approximately 4 cm below the level of the cavoatrial junction. Stable moderate cardiomegaly without acute pulmonary process. END REPORT RL: [id number] AFC: [id number] KUB Result Date: 12/04/2023 FINDINGS/IMPRESSION: Enteric tube with tip projecting over the distal esophagus. Further advancement recommended. Residual contrast is seen within the bilateral pyelocalyceal system. Lower abdominal not included within the qzozi-ny-rfpw. [id number] dated 12/04/2023 at 2:39. FINDINGS/IMPRESSION: Enteric tube seen in similar position, projecting over distal esophagus. Advancement recommended. [id number] dated 12/04/2023 at 2:40. FINDINGS/IMPRESSION: Unchanged position of enteric tube, projecting over the distal esophagus. Further advancement of at least 10 cm recommended. Ric Jansen MD., have reviewed this study and agree with the above report. XR KUB Result Date: 12/04/2023 FINDINGS/IMPRESSION: Enteric tube with tip projecting over the distal esophagus. Further advancement recommended. Residual contrast is seen within the bilateral pyelocalyceal system. Lower abdominal not included within the whxae-lv-wges. [id number] dated 12/04/2023 at 2:39. FINDINGS/IMPRESSION: Enteric tube seen in similar position, projecting over distal esophagus. Advancement recommended. [id number] dated 12/04/2023 at 2:40. FINDINGS/IMPRESSION: Unchanged position of enteric tube, projecting over the distal esophagus. Further advancement of at least 10 cm recommended. Ric Jansen MD., have reviewed this study and agree with the above report. XR KUB Result Date: 12/04/2023 FINDINGS/IMPRESSION: Enteric tube with tip projecting over the distal esophagus. Further advancement recommended. Residual contrast is seen within the bilateral pyelocalyceal system. Lower abdominal not included within the nkwzm-cr-auat. [id number] dated 12/04/2023 at 2:39. FINDINGS/IMPRESSION: Enteric tube seen in similar position, projecting over distal esophagus. Advancement recommended. [id number] dated 12/04/2023 at 2:40. FINDINGS/IMPRESSION: Unchanged position of enteric tube, projecting over the distal esophagus. Further advancement of at least 10 cm recommended. Ric Jansen MD., have reviewed this study and agree with the above report. XR CHEST 1 VW Result Date: 12/04/2023 No pneumothorax. Satisfactory position of ET tube. Improved interstitial pulmonary edema. Preliminary Report Dictated by Resident: Larissa Guo MD., have reviewed this study and agree with the above report. CT ABDOMEN PELVIS W CONTRAST Result Date: 12/03/2023 Perforated stercoral colitis with pneumoperitoneum and rectal pneumatosis with air and fecal collections in or immediately adjacent to rectal wall communicating with the rectal lumen. Increasing pneumoperitoneum and fecal material extruding into the collections. This was communicated with Perez Arce M.D. on 12/03/2023 at 6:00 PM. Bilateral hydroureteronephrosis may be related to obstruction. ASSESSMENT Zarina Grier is a 73 year old female with PMH as noted above. Nephrology is consulted for NAOMY. #. NAOMY #. Septic and distributive shock #. Respiratory alkalosis with metabolic acidosis compensation #. Oliguria #. A. Fib Nephro consulted as patient developed NAOMY 2/2 septic and distributive shock 2/2 from post exploratory laparotomy with viscus perforation. Patient was anuric, but cote was repositioned and now is making more urine. She was hypovolemic and received 1 L of LR and 2-3 units of 25% of 25 g Albumin plus now running 150 mL/hr of LR. Cr slowly rising to 2.53 with baseline 0.9 prior. However ABG reveals Respiratory alkalosis with metabolic acidosis compensation: 7.42/29/132/19. PLAN - Given no urgent need for HD and clearance, but rather next impending possible concern would be hypervolemia: with worsening CXR today but repositioned cote with increase in UOP, recommend to decrease LR to 100 mL/hr. - If patient becomes more hypervolemic, will recommend to decrease or stop LR and give 120 mg IV Lasix. - Defer abx and pressors to ICU team - Avoid NSAIDs, Hold ACEi/ARB - BMP, Strict I&O, Daily Weights - Renally dose medications, avoid contrast studies - avoid nephrotoxic agents - monitor renal function with daily electrolytes, BUN and Cr labs - avoid hypotension SBP < 110 Patient was seen and staffed with Dr. Huitron. Jim Jaquez MD Nephrology and Hypertension Fellow Pager: [phone] Associated attestation - Eben Huitron MD - 12/05/2023 5:15 PM CDT Nephrology Attending Note I have personally seen and examined this patient with the fellow on 12/05/2023 . I have reviewed the assessment and plan as outlined in the progress note and agree with the overall approach to this patient. I personally participated in the decision-making process as relates to this patient's medical condition. Please refer to above progress note for details of the medical care provided. Eben Huitron MD [facility] Division of Nephrology & Hypertension NEPHROLOGY [facility] 2023-12-04 16:12:00 Associated Order(s): CONSULT WOUND, OSTOMY, OR CONTINENCE CARE TEAM [facility] Nurse Note Consult for post op colostomy care. OR done overnight. Pt vented and sedated on propofol. Mrs Nicholas daughter is at the bedside. Brief overview of ostomy care done with daughter. Dtr reports pt lives with , she is nearby but works, she has 2 brothers but does not feel they would be providing any care. Plan is to hire a caregiver to assist with meals, housekeeping etc. The not likely to be in the hospital until later today. ASSESSMENT: Left sided colostomy, ~40mm, stoma is dusky maroon, some pink tissue seen at lower edge. Serosanguinous fluid in the pouch. No gas or effluent at this time. Will order starter supplies and continue education when appropriate. Michelle Alas RN 12/04/2023 4:20 PM [facility] 2023-12-04 13:48:31 Associated Order(s): CONSULT UROLOGY UROLOGY CONSULTATION NOTE Requesting Physician: Raheel Gresham Jr., MD Date of Service: 12/04/2023 Reason for Consult: Indwelling cote catheter History of Present Illness Zarina Grier, 73 year old female with hx of fecal impaction c/b by urinary retention (s/p cote placement 11/20) and now admitted to ICU s/p heidi procedure for rectal perforation and fecal peritonitis. Urology consulted for recommendations for indwelling cote and urinary retention. Of note patient had recent admission 11/20 for AMS found to have retention and hydronephrosis which resolved with catheter placement by nursing. Patient intubated sedated in ICU. Cote in placed draining yellow urine. Medications: Home Medications: Medications Prior to Admission Medication Sig Dispense Refill Last Dose HYDROcodone-acetaminophen 5-325 mg tablet Take 1 tablet by mouth every 6 (six) hours as needed for Pain (scale 7-10). Indications: acute pain, chronic pain 28 tablet 0 cephALEXin 500 mg capsule Take 1 capsule by mouth every 12 (twelve) hours. 5 capsule 0 ferrous sulfate 325 mg (65 mg iron) tablet Take 1 tablet by mouth every other day. gabapentin 100 mg capsule Take 1 capsule by mouth in the morning. 30 capsule 0 sennosides 8.6 mg tablet Take 1 tablet by mouth in the morning. [DISCONTINUED] polyethylene glycol 3350 17 gram powder Take 1 Packet by mouth in the morning. Hospital Medications: Current Facility-Administered Medications Medication Dose Route Frequency Last Rate Last Admin fentaNYL PF (SUBLIMAZE) 10 mcg/mL in NaCl 0.9% (NS) RTU 25-200 mcg/hr IV Infusion TITRATE 2.5 mL/hr at 12/04/23 0727 25 mcg/hr at 12/04/23 0727 metoprolol (LOPRESSOR) injection 5 mg 5 mg Intravenous Q6HPRN 5 mg at 12/04/23 1110 NORepinephrine (LEVOPHED) 4 mg/250 mL in 0.9% NaCl infusion 0.05-0.5 mcg/kg/min IV Infusion TITRATE 51.03 mL/hr at 12/04/23 1251 0.08 mcg/kg/min at 12/04/23 1251 propofoL IV infusion 5-50 mcg/kg/min IV Infusion TITRATE 10.21 mL/hr at 12/04/23 1022 10 mcg/kg/min at 12/04/23 1022 acetaminophen (OFIRMEV) IV piggyback 1,000 mg 1,000 mg IV Piggyback ONCE lactated ringers IV infusion 1,000 mL 1,000 mL IV Infusion CONTINUOUS 150 mL/hr at 12/04/23 1019 1,000 mL at 12/04/23 1019 naloxone (NARCAN) injection 0.4 mg 0.4 mg Slow IV Push PRN ondansetron (ZOFRAN (PF)) injection 4 mg 4 mg Slow IV Push Q6HPRN pantoprazole (PROTONIX) injection 40 mg 40 mg Slow IV Push Q24H 40 mg at 12/03/23 1509 piperacillin-tazobactam (ZOSYN) 3.375 g in NaCl 0.9% (NS) 100 mL MINI-BAG 3.375 g IV Piggyback Q8H ABX 25 mL/hr at 12/04/23 1118 3.375 g at 12/04/23 1118 Histories: Past Medical History: Diagnosis Date Paroxysmal atrial fibrillation Scoliosis Past Surgical History: Procedure Laterality Date BOWEL RESECTION N/A 12/03/2023 Surgeon: Taylor Segundo MD; Location: [facility] OR LOCATION SECTION 1985 EXPLORATORY LAPAROTOMY N/A 12/03/2023 Surgeon: Taylor Segundo MD; Location: [facility] OR LOCATION FECAL DISIMPACTION N/A 12/03/2023 Surgeon: Taylor Segundo MD; Location: [facility] OR LOCATION TUBAL LIGATION No family history on file. Social History Socioeconomic History Marital status: Tobacco Use Smoking status: Former Current packs/day: 0.00 Average packs/day: 2.0 packs/day for 35.0 years (70.0 ttl pk-yrs) Types: Cigarettes Start date: 1968 Quit date: 2003 Years since quittin.7 Passive exposure: Never Smokeless tobacco: Never Substance and Sexual Activity Drug use: Yes Types: Marijuana Social Determinants of Health Financial Resource Strain: Low Risk (12/04/2023) Overall Financial Resource Strain (CARDIA) Difficulty of Paying Living Expenses: Not very hard Food Insecurity: No Food Insecurity (12/04/2023) Hunger Vital Sign Worried About Running Out of Food in the Last Year: Never true Ran Out of Food in the Last Year: Never true Physical Activity: Inactive (12/04/2023) Exercise Vital Sign Days of Exercise per Week: 0 days Minutes of Exercise per Session: 0 min Social Connections: Unknown (12/04/2023) Social Connection and Isolation Panel [NHANES] Frequency of Communication with Friends and Family: More than three times a week Marital Status: Housing Stability: Low Risk (12/04/2023) Housing Stability Vital Sign Unable to Pay for Housing in the Last Year: No Number of Places Lived in the Last Year: 2 Unstable Housing in the Last Year: No Allergies: No Known Allergies Review of Systems: Per HPI Physical Exam: Blood pressure (!) 194/165, pulse 106, temperature 37.3 ?C (99.1 ?F), resp. rate 22, height 1.727 m (5' 8"), weight 170.1 kg (375 lb), SpO2 100%. General: Intubated sedated : Cote in place with CYU. External exam and digital vaginal exam preformed with nurse patcher bowling ball after obtaining consent from daughter. Digital vaginal exam confirmed placement of catheter within urethra. Labs (last 24 hours): Chemistry CBC LFTs Coags, other 135 104 29 (H) 126 (H) 12.81 (H) 10.8 (L) 829 (H) AST: 49 (H) ALT: 14 PT: 21.6 (H) INR: 2.0 5.0 16 (L) 1.51 (H) 34.6 (L) AP: 141 (H) T Garcia: 0.9 PTT: 32 eGFR: 35.9 Ca: 8.6 % Juan Diego: 82.1 Prot: 7.4 Alb: 3.1 (L) Lact: 4.15 (H) Procal: - M.1 PO4: 5.9 (H) ANC: 10.52 (H) pBNP: - Trop I: - Assessment: Zarina Grier, 73 year old female with hx of fecal impaction c/b by urinary retention (s/p cote placement 11/20) and now admitted to ICU s/p heidi procedure for rectal perforation and fecal peritonitis. Urology consulted for recommendations for indwelling cote and urinary retention. Recommendations: - Recommend indwelling cote due to high UOP and bladder overdistension - Flomax 0.4 mg PO daily (when tolerated) - Minimize narcotics and anticholinergics, maximize ambulation - Removal of Cote in 7-10 days per primary team only when patient is ambulatory and able to ambulate to toilet - On day of removal perform trial of void: remove catheter at 0600 and measure serial post-void residuals. Re-engage urology for two consecutive PVR > 200 ml. Do not remove catheter after 0900. - If patient will discharge prior to 7-10 days, re-engage urology to arrange follow up appointment for cote removal. - Rest per primary team Discussed with Dr. Light . 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 Theodore, and agree with his assessment and plan. I participated in the decision making process. UROLOGY [facility] 2023-12-04 10:44:56 Associated Order(s): CONSULT CARDIOLOGY Cardiology Consult Note Date of Service: 12/04/2023 13:09 Reason for consult: Give recs on patient with afib RVR History of Present Illness: Zarina Grier is a 73 year old female with PMHx of afib, morbid obesity, and constipation transferred from [facility] for altered mental status and found to have a hollow viscus perforation. She is day 1 post op ex lap with bowel resection and fecal disimpaction. She was admitted to medicine on 11/20/23 for a UTI and was found to have rate controlled atrial fibrillation. She is currently intubated. Her reports that she did not have heart problems prior to this and does not currently take medication for her afib. She is not on any anticoagulants at this time. 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 ROS: Per HPI Past Medical History: Diagnosis Date Paroxysmal atrial fibrillation Scoliosis Past Surgical History: Procedure Laterality Date BOWEL RESECTION N/A 12/03/2023 Surgeon: Taylor Segundo MD; Location: [facility] OR LOCATION SECTION 1985 EXPLORATORY LAPAROTOMY N/A 12/03/2023 Surgeon: Taylor Segundo MD; Location: [facility] OR LOCATION FECAL DISIMPACTION N/A 12/03/2023 Surgeon: Taylor Segundo MD; Location: [facility] OR LOCATION TUBAL LIGATION No family history on file. Social History Socioeconomic History Marital status: Tobacco Use Smoking status: Former Current packs/day: 0.00 Average packs/day: 2.0 packs/day for 35.0 years (70.0 ttl pk-yrs) Types: Cigarettes Start date: 1968 Quit date: 2003 Years since quittin.7 Passive exposure: Never Smokeless tobacco: Never Substance and Sexual Activity Drug use: Yes Types: Marijuana Social Determinants of Health Financial Resource Strain: Low Risk (12/04/2023) Overall Financial Resource Strain (CARDIA) Difficulty of Paying Living Expenses: Not very hard Food Insecurity: No Food Insecurity (12/04/2023) Hunger Vital Sign Worried About Running Out of Food in the Last Year: Never true Ran Out of Food in the Last Year: Never true Physical Activity: Inactive (12/04/2023) Exercise Vital Sign Days of Exercise per Week: 0 days Minutes of Exercise per Session: 0 min Social Connections: Unknown (12/04/2023) Social Connection and Isolation Panel [NHANES] Frequency of Communication with Friends and Family: More than three times a week Marital Status: Housing Stability: Low Risk (12/04/2023) Housing Stability Vital Sign Unable to Pay for Housing in the Last Year: No Number of Places Lived in the Last Year: 2 Unstable Housing in the Last Year: No No Known Allergies Prior to Admission medications Medication Sig Start Date End Date Taking? Authorizing Provider HYDROcodone-acetaminophen 5-325 mg tablet Take 1 tablet by mouth every 6 (six) hours as needed for Pain (scale 7-10). Indications: acute pain, chronic pain 11/28/23 Ivan Rogers MD cephALEXin 500 mg capsule Take 1 capsule by mouth every 12 (twelve) hours. 11/23/23 Cherry Garcia MD ferrous sulfate 325 mg (65 mg iron) tablet Take 1 tablet by mouth every other day. 11/23/23 Cherry Garcia MD gabapentin 100 mg capsule Take 1 capsule by mouth in the morning. 11/24/23 Cherry Garcia MD sennosides 8.6 mg tablet Take 1 tablet by mouth in the morning. 11/24/23 Cherry Garcia MD Current Facility-Administered Medications: fentaNYL PF (SUBLIMAZE) 10 mcg/mL in NaCl 0.9% (NS) RTU, 25-200 mcg/hr, IV Infusion, TITRATE, Elizabeth Steiner MD, Last Rate: 2.5 mL/hr at 12/04/23 0727, 25 mcg/hr at 12/04/23 0727 metoprolol (LOPRESSOR) injection 5 mg, 5 mg, Intravenous, Q6HPRN, Taylor Segundo MD, 5 mg at 12/04/23 1110 NORepinephrine (LEVOPHED) 4 mg/250 mL in 0.9% NaCl infusion, 0.05-0.5 mcg/kg/min, IV Infusion, TITRATE, Elizabeth Steiner MD, Last Rate: 51.03 mL/hr at 12/04/23 1251, 0.08 mcg/kg/min at 12/04/23 1251 propofoL IV infusion, 5-50 mcg/kg/min, IV Infusion, TITRATEJatin Erin, MD, Last Rate: 10.21 mL/hr at 12/04/23 1022, 10 mcg/kg/min at 12/04/23 1022 acetaminophen (OFIRMEV) IV piggyback 1,000 mg, 1,000 mg, IV Piggyback, ONCE, Corey Costello MD lactated ringers IV infusion 1,000 mL, 1,000 mL, IV Infusion, CONTINUOUS, Ariel Vieira MD, Last Rate: 150 mL/hr at 12/04/23 1019, 1,000 mL at 12/04/23 1019 naloxone (NARCAN) injection 0.4 mg, 0.4 mg, Slow IV Push, PRN, Taylor Segundo MD ondansetron (ZOFRAN (PF)) injection 4 mg, 4 mg, Slow IV Push, Q6HPRN, Hina Cui MD pantoprazole (PROTONIX) injection 40 mg, 40 mg, Slow IV Push, Q24H, Radha Mckeon MD, 40 mg at 12/03/23 1509 piperacillin-tazobactam (ZOSYN) 3.375 g in NaCl 0.9% (NS) 100 mL MINI-BAG, 3.375 g, IV Piggyback, Q8H ABX, Ariel Vieira MD, Last Rate: 25 mL/hr at 12/04/23 1118, 3.375 g at 12/04/23 1118 Physical Examination: Temp: [37.3 ?C (99.1 ?F)-37.6 ?C (99.7 ?F)] Heart Rate (monitor): [93-136] Pulse: [86-222] Resp: [14-33] BP: (145-194)/(76-165) Arterial Line BP: (39-351)/(-1-348) MAP (mmHg): [96-176] MAP: [62 mmHg-102 mmHg] Intake/Output Summary (Last 24 hours) at 12/04/2023 1309 Last data filed at 12/04/2023 1200 Gross per 24 hour Intake 4476.26 ml Output 720 ml Net 3756.26 ml General: intubated sedated Cardio: irreg irreg Hr 110s Resp: intubated Ext: 2+ LE edema, Assessment/Plan: Zarina Grier is a 73 year old female admitted with: New Afib (CHADVASC 3) S/p ex lap with bowel resection and fecal impaction Morbid obesity Patient is POD 1 s/p ex lap with atrial fibrillation found at last admission 11/20/23. She does not currently have at home medications for afib and anticoagulants have been held due to recent surgery. Currently rate controlled, goal HR less than 120. Avoid rhythm control to avoid stroke risk. -Start heparin drip for Afib when cleared from surgery standpoint, DOAC on d/c -30 day monitor on discharge -consider switching levophed to phneyl/vasopression to avoid beta stimulation -Can give metop prn for RVR, if still no improvement can load with Digoxin -EP follow up outpatient -Will start PO BB once BP more stable -A1c check -tele Discussed with Dr. Guidry Cardiology will continue to follow. Denys Rowley, MS3 12/04/2023 I personally examined the patient on and have verified the medical student documentation and/or findings, including the history, physical exam, and medical decision making. Additionally, I have personally performed or re-performed the physical exam and medical decision making activities of this patient's evaluation and management service. Steven Mancia MD, SHANNON Bottoming Room Supervisor, PGY 4 Associated attestation - Los Guidry MD - 12/04/2023 3:37 PM CDT I personally examined the patient 12/04/2023 and agree with the note as written. I actively participated in the decision-making process. Please see the note for additional details. This is a 73-year-old female patient with history of atrial fibrillation and obesity who we are consulted to see status post exploratory laparotomy with viscus perforation. Cardiology consulted for management of A-fib with intermittent RVR. Echo with normal ejection fraction. Intermittent rapid response can be expected in the setting of recent surgery. Recommend switching her norepinephrine to another vasopressor to avoid beta-1 stimulation. Will continue to monitor on telemetry and provide further recommendations as needed. Will need a DOAC on discharge. Will also need a 30-day event monitor on discharge. [facility] 2023-12-03 13:50:00 BRIEF INTERVENTIONAL RADIOLOGY CONSULT NOTE VIR consulted for evaluation of pelvic collection and image guided drainage 2/2 perforated stercoral colitis. - Recommend CT abdomen and pelvis with contrast to evaluate the extent of collection/disease process. Case and imaging discussed with IR faculty, Dr. Pierson. Please page IR for any questions. Associated attestation - Bret Pierson MD - 12/04/2023 4:29 AM CDT I, Dr. Bret Pierson, have reviewed and agree with the resident's note. VASCULAR & INTERVENTIONAL RADIOLOGY [facility] 2023-11-22 10:15:00 Associated Order(s): CONSULT ADULT PHYSICAL [...] will benefit with post acute rehab and / assist Challenges to Home Transition: increased risk [...] reduction, and Repositioning Provided COMMUNICATION Primary Language: Cypriot Able to Verbalize needs: Yes Vision:glasses Hearing:good; [...] min Santhosh Mustafa PT Santhosh Mustafa PT [facility] 2023-11-21 15:30:00 Associated Order(s): CONSULT ADULT OCCUPATIONAL THERAPY OT GENERAL EVALUATION Consult received via Dailymotion, EMR reviewed and evaluation completed 11/21/23. Patient [...] commode, Tub transfer bench, and Long handled well service floorperson PLAN OF CARE: At least 2x/week Precautions: [...] to enable patient to complete evaluation component. T [facility] - Health History and Physical Notes Date/Time Note Provider Source 2023-12-03 03:09:54 [facility] SURGERY H&P Date of Service: 12/03/2023 Chief Complaint: hollow viscus perforation HPI Zarina Grier is a 73 year old female history of afib, morbid obesity, constipation who presents as transfer from [facility] for altered mental status, found to have a hollow viscus perforation. Patient was recently admitted to medicine for treatment of UTI and she was discharge with an indwelling cote on 11/22. Patient altered and could not provide history. Per EMS, she lives with her and son. She was found earlier today covered in her feces and blood clots. No reported fevers, chills, N/V. Patient would like something to eat and wants a fan because she's hot. At bedside, AVSS, exam with generalized TTP but exam limited as patient does not comply. WBC at OSH 13.[address] scan showed large stool ball in rectum with free air in the abdomen Review of Systems (BOLDED if positive. Otherwise negative.) General: weight changes, fatigue, fever Eyes: corrective lenses, pain, blurred vision ENT: hearing problems, earaches, allergies, nose bleeds Skin: rashes, lumps Respiratory: cough, wheeze, shortness of breath Cardiac: chest discomfort, palpitations Gastrointestinal: swallowing problems, nausea/vomiting, blood in stool, abdominal pain Musculoskeletal: muscle cramps, back pain, joint pain, weakness, tingling, pain in feet Immunologic: food allergies, recurrent infections Urinary: increased frequency, burning, urinating at night, incontinence, blood in urine Psychiatric: anxiety, depression Endocrine: thyroid trouble, diabetes Neurologic: fainting, seizures, loss of memory, headaches, numbness, stroke Hematologic: anemia, bleeding problems, transfusion reaction HISTORIES Past Medical History: Diagnosis Date Scoliosis Past Surgical History: Procedure Laterality Date SECTION 1984 No family history on file. Social History Socioeconomic History Marital status: Tobacco Use Smoking status: Former Current packs/day: 0.00 Average packs/day: 2.0 packs/day for 35.0 years (70.0 ttl pk-yrs) Types: Cigarettes Start date: 1968 Quit date: 2003 Years since quittin.7 Passive exposure: Never Smokeless tobacco: Never Substance and Sexual Activity Drug use: Yes Types: Marijuana Social Determinants of Health Financial Resource Strain: Low Risk (11/21/2023) Overall Financial Resource Strain (CARDIA) Difficulty of Paying Living Expenses: Not hard at all Food Insecurity: No Food Insecurity (11/21/2023) Hunger Vital Sign Worried About Running Out of Food in the Last Year: Never true Ran Out of Food in the Last Year: Never true Physical Activity: Inactive (11/21/2023) Exercise Vital Sign Days of Exercise per Week: 0 days Minutes of Exercise per Session: 0 min Social Connections: Unknown (11/21/2023) Social Connection and Isolation Panel [NHANES] Frequency of Communication with Friends and Family: More than three times a week Marital Status: Housing Stability: Low Risk (11/21/2023) Housing Stability Vital Sign Unable to Pay for Housing in the Last Year: No Number of Places Lived in the Last Year: 1 Unstable Housing in the Last Year: No Physical Exam Vitals: BP (!) 141/80 | Pulse 104 | Temp 37.4 ?C (99.4 ?F) (Oral) | Resp 22 | Ht 1.727 m (5' 8") | Wt 170.1 kg (375 lb) | SpO2 98% | BMI 57.02 kg/m? General: disoriented, in moderate distress. Head: normocephalic, atraumatic Eyes: extraocular movements intact; no scleral icterus ENT: no rhinorrhea, moist mucus membranes Neck: supple, trachea midline CV: hemodynamically stable Resp: unlabored, no increased work of breathing, equal bilateral chest rise Gi: abdominal soft, distended, generalized TTP all 4 quadrants, however exam limited by patient co-operation. FORREST differed Extremities/Musculoskeletal: moves extremities well, no edema or cyanosis Skin: skin color, texture, and turgor normal; no rashes or lesions Neuro: unremarkable without focal findings Psych: normal mood and affect; judgement intact LABORATORY WBC 19, Hgb 8.2, CO2 19, normal lactate On outside hospital labs, mild leukocytosis, unspecified anemia RADIOLOGY OSH CT reviewed. To my eyes, there is a large stool ball in the rectum with multiple foci of free air ASSESSMENT Zarina Grier is a 73 year old female with history of afib, morbid obesity, constipation who presents for abdominal pain N/V PLAN - repeat CT scan - admit to ICU - resuscitate overnight, OR in the AM for exploratory laparotomy pending discussion with family, not currently present at bedside Hina Cui MD General Surgery PGY-3 Associated attestation - Taylor Segundo MD - 12/04/2023 4:06 AM CDT I have reviewed the patient's chart and examined the patient on 12/03/[address] Cui's note. I actively participated in the decision-making process. Please see the resident's note for additional details. Initially, patient hemodynamically stable with predominately localized bilateral lower quadrant TTP, and leukocytosis. After discussion with Dr. Hernandez who discussed case with Drs. Smith and Manjit, we were going to attempt IR-drain placement in large locule of air adjacent to stercoral ulcer. Disimpaction was attempted at the bedside with minimal removal of hard stool ball. IR wanted repeat CT scan before considering any drain placement. While awaiting CT, she progressively became more somnolent, pale, disoriented repeating "Let me sleep", with desaturation to high 80's requiring nasal cannula, tachycardia, and change in her abdominal exam to diffuse TTP to light palpation and shaking the bed, and decreased UOP. Labs worsened as well with coagulopathy (INR 2.2) , compensated metabolic acidosis with lactate 3.03 and base deficit of -3. Considering her declining clinical picture, I am concerned for un-contained rectal perforation. We will take to her OR for Heidi's procedure. Dx: Stercoral colitis with perforation Planned Procedure: Exploratory laparotomy, large bowel resection, end colostomy creation, ventral hernia repair, and any other medically indicated procedures. We discussed the planned operation with the patient and family - Bill. We discussed the risk, benefits, and alternatives to surgery. Principle surgical risks include damage to surrounding structures, bleeding, infection, pain, scar, leak, need for further surgery or other procedures including ostomy revision. The patient expressed understanding, had an opportunity to ask questions and have them answered, and agreed to proceed to surgery. This patient's condition remains critical and requires frequent assessment and interventions; one or more vital organ system is involved with risk of life-threatening deterioration. The patient is unstable with conditions that pose a significant threat to life or risk of prolonged impairment. Critical care time (excluding procedures): 150 min Taylor Segundo MD, PhD [employer] Supervisor Trauma, Acute Care Surgery, and Surgical Critical Care In-house Pager: [phone] [facility] 2023-11-20 17:50:40 ARNOLD TEAM ADMIT H&P DATE OF SERVICE: 11/20/2023 PCP: PATIENT DOES NOT HAVE A PCP CHIEF COMPLAINT: abdominal pain HISTORY OF PRESENT ILLNESS: Zarina Grier is a 73 year old female with PMH of scoliosis who presents as a transfer from [facility] for abdominal pain. Patient initially presented to the [facility] ED with daughter due to complaints of [...] hallucinations at this time. Daughter (Luanne Grier; [phone]) was contacted to elicit further history. Daughter [...] distention. RL: [id number] End of Report SSMENT/PLAN: Zarina Grier is a 73 year old female [...] details. Juni Nagy MD Division of Internal Sales OperationsPoleyard Supervisor [facility] Procedure Notes Date/Time Note Provider Source 2023-12-11 17:00:00 Vascular Access Services A bedside timeout was conducted before procedure with Hailey Carvalho RN. An ultrasound guided, 4fr 10cm. MIDLINE was then placed in the left cephalic vein, in 1 attempt(s). Local anesthetic was not used. Labs were not obtained. REF#: [id number] Lot #: [id number] Exp: 05/24/2025 Kaushik Sherman RN [facility] 2023-12-04 20:16:40 Procedure(s): ARTERIAL LINE ARTERIAL LINE PLACEMENT Date of Service: 12/04/2023 Faculty: Ck Indication/Diagnosis: Need for HD monitoring, intubated Sterile technique was used : A cap and mask were donned, hand hygiene was performed and sterile gown and gloves were donned. The skin was prepped with 2% chlorhexidine and the solution was allowed to dry. The previous non functional arterial line was removed. Anesthesia: none Instrument(s) type: Micropuncture Arterial line Procedure site: L radial artery Sterile dressing: yes Narrative: The left wrist was prepped and draped with sterile tecnique after removal of the old arterial line. The artery was located with US and the needle advanced. Once once blood was noted , a guidewire was was passed easily and the needle removed. The catheter was then secured and hooked up to the monitor. Complications: none Elizabeth Steiner MD General Surgery PGY-5 Associated attestation - Toney Elkins MD - 12/05/2023 6:41 AM CDT I was immediately available throughout the procedure. I agree with the resident's note as documented. Electronically signed by: Toney Elkins MD Trauma and Acute Care Surgery Faculty SURGERY [facility] 2023-12-04 19:58:12 Procedure(s): CENTRAL LINE CENTRAL LINE PLACEMENT PROCEDURE NOTE Date of Service: 12/04/2023 7:58 PM Faculty: Ck BROOKS Indication/Diagnosis: Shock, Septic Sterile technique was used : A cap and mask were donned, hand hygiene was performed and sterile gown and gloves were donned. The skin was prepped with 2% chlorhexidine and the solution was allowed to dry. A full body fenestrated drape was placed over the patient without contaminating the drape during placement. Anesthesia: local: 1% lidocaine Instrument(s) type: triple lumen catheter Procedure site: right internal jugular vein Sterile dressing: yes Narrative: Patient was prepped and draped in the usual sterile fashion with Lidocaine. A central line was introduced with the Seldinger technique into the right right internal jugular vein after 3 attempts. Guide wire was threaded without difficulty and verified with US. The catheter was then placed over the guide wire, the guide wire was removed and confirmed, and the catheter was sutured into place. Good flow was noted from the port(s) and the catheter flushed easily. Blood loss was minimal. Complications: none Chest x-ray: cleared Dr. Elkins was available during the procedure. Beckie Carreon MD General Surgery Associated attestation - Toney Elkins MD - 12/04/2023 8:01 PM CDT I was immediately available throughout the procedure. I agree with the resident's note as documented. Electronically signed by: Toney Elkins MD Trauma and Acute Care Surgery [facility] SURGERY [facility] 2023-12-03 20:43:59 Associated Order(s): Arterial Line Arterial Line Date/Time: 12/03/2023 8:12 PM Performed by: Bashir Carvalho MD Arterial Line Placement: Ultrasound-Guided: ultrasound guided Patient Location: OR Indication: continuous blood pressure monitoring and blood sampling needed Staff: Supervising Anesthesiologist: Kentrell Núñez MD Resident: Bashir Carvalho MD Procedure Detail: Catheter Size: 20 gauge Catheter Length: 1 and 3/4 inch Catheter Type: Arrow Seldinger Technique?: Yes Laterality: Left Site: Radial artery Line Secured: Tape, Tegaderm and biopatch Preparation: Guidewire removed intact Events: Events: Patient tolerated procedure well with no complications and all wires accounted for Comments: Tegaderm CHG applied. AN-ANESTHESIOLOGY [facility] 2023-12-03 20:41:41 Associated Order(s): Intubation Intubation Date/Time: 12/03/2023 7:57 PM Urgency: elective Airway not difficult General Information and Staff Patient location during procedure: OR Performed: resident/PSYCH SALES SPECIALIST Performed by: Stan Izquierdo MD Authorized by: Kentrell Núñez MD Indications and Patient Condition Indications for airway management: anesthesia Spontaneous Ventilation: absent Sedation level: deep Preoxygenated: yes Patient position: sniffing MILS not maintained throughout Mask difficulty assessment: 1 - vent by mask No planned trial extubation Final Airway Details Final airway type: endotracheal airway Successful airway: ETT Cuffed: yes Successful intubation technique: video laryngoscopy Facilitating devices/methods: intubating stylet Endotracheal tube insertion site: oral Blade: Delfino Blade size: #3 ETT size (mm): 7.0 Cormack-Lehane Classification: grade I - full view of glottis Placement verified by: capnometry Number of attempts at approach: 1 Number of other approaches attempted: 0 Additional Comments ETT 7.0 placed atraumatically x1 attempt with CMAC3 videoscope. Lips, gums, teeth, and nose unchanged vs. preop. [facility] Notes Date/Time Note Provider Source 2024-01-01 15:06:39 TRANSITIONAL CARE MANAGEMENT ASSESSMENT 01/01/2024 Zarina Grier [id number] Zarina Grier is a 73 year old /White female was admitted on 12/03/[address] She was discharged on 12/29/23 with discharge disposition of HR- Routine Discharge. Admitting Physician: Jr Saravia Discharge Diagnosis: K63.1 Colon perforation (primary encounter diagnosis) R10.9 Abdominal pain, unspecified abdominal location I48.20 Chronic atrial fibrillation No linked episodes TCM [id number] outreach documentation: CM made follow up call to patient post-discharge. No answer and call went to voicemail. CM left a discreet message with purpose of call and CM's call back information. Two attempts made to reach patient. Future Appointments: T Cinthya Andrade RN [facility] 2024-01-01 09:44:56 CM made follow up call to patient post-discharge. No answer and call went to voicemail. CM was unable to leave a voicemail or there was no option to leave a voicemail. T [facility] 2023-12-28 17:44:58 Problem: Falls, Risk of Goal: Absence of falls Outcome: Progressing as expected Problem: Infection Risk Goal: Absence of infection Outcome: Progressing as expected Problem: Pain Goal: Control of pain at or below patient's documented comfort goal Outcome: Progressing as expected Goal: Reduction in pain sensation Outcome: Progressing as expected Problem: Skin integrity Impaired (Risk or Actual) Goal: Wound healing Outcome: Progressing as expected Goal: Prevention of new skin breakdown Outcome: Progressing as expected Problem: Respiratory Function - Impaired Goal: Able to cough effectively Outcome: Progressing as expected Goal: Adequate oxygenation Outcome: Progressing as expected Goal: Adequate work of breathing Outcome: Progressing as expected Goal: Patent airway Outcome: Progressing as expected Problem: Discharge Planning Goal: Adequate for discharge Outcome: Progressing as expected Goal: Effective communication Outcome: Progressing as expected Problem: Mental Status - Impaired Goal: Able to achieve maximum level of cognitive ability Outcome: Progressing as expected Problem: Restraint Use Goal: Absence of restraint indications Outcome: Progressing as expected Goal: Absence of restraint-related injury Outcome: Progressing as expected Nel Pierce RN [facility] 2023-12-27 17:05:09 At 1400 I removed the patients nasal cannula that was at 2 liters to see how she could handle being on room air. At 1400 her sats were 98% on room air. I took that time to make her exert herself a little by changing her gown, wiping her down and making her move from side to side. This took about an hour. I left the pulse ox on her the entire time and her sats never dropped below 96% on room air. I finished up cleaning her at 1515 and at that time O2 was still reading 96%. The patient said she is ready to go home. Mimi Zuñiga RN [facility] 2023-12-27 10:08:12 Problem: Falls, Risk of Goal: Absence of falls Outcome: Progressing as expected Problem: Infection Risk Goal: Absence of infection Outcome: Progressing as expected Problem: Pain Goal: Control of pain at or below patient's documented comfort goal Outcome: Progressing as expected Goal: Reduction in pain sensation Outcome: Progressing as expected Problem: Skin integrity Impaired (Risk or Actual) Goal: Wound healing Outcome: Progressing as expected Goal: Prevention of new skin breakdown Outcome: Progressing as expected Problem: Respiratory Function - Impaired Goal: Able to cough effectively Outcome: Progressing as expected Goal: Adequate oxygenation Outcome: Progressing as expected Goal: Adequate work of breathing Outcome: Progressing as expected Goal: Patent airway Outcome: Progressing as expected Problem: Discharge Planning Goal: Adequate for discharge Outcome: Progressing as expected Goal: Effective communication Outcome: Progressing as expected Problem: Mental Status - Impaired Goal: Able to achieve maximum level of cognitive ability Outcome: Progressing as expected Problem: Restraint Use Goal: Absence of restraint indications Outcome: Progressing as expected Goal: Absence of restraint-related injury Outcome: Progressing as expected [facility] 2023-12-26 20:40:27 Problem: Falls, Risk of Goal: Absence of falls Outcome: Progressing as expected Problem: Infection Risk Goal: Absence of infection Outcome: Progressing as expected Problem: Skin integrity Impaired (Risk or Actual) Goal: Wound healing Outcome: Progressing as expected T Thomas Andre RN [facility] 2023-12-26 09:38:50 Problem: Falls, Risk of Goal: Absence of falls Outcome: Progressing as expected Problem: Infection Risk Goal: Absence of infection Outcome: Progressing as expected Problem: Pain Goal: Control of pain at or below patient's documented comfort goal Outcome: Progressing as expected Goal: Reduction in pain sensation Outcome: Progressing as expected Problem: Skin integrity Impaired (Risk or Actual) Goal: Wound healing Outcome: Progressing as expected Goal: Prevention of new skin breakdown Outcome: Progressing as expected Problem: Respiratory Function - Impaired Goal: Able to cough effectively Outcome: Progressing as expected Goal: Adequate oxygenation Outcome: Progressing as expected Goal: Adequate work of breathing Outcome: Progressing as expected Goal: Patent airway Outcome: Progressing as expected Problem: Discharge Planning Goal: Adequate for discharge Outcome: Progressing as expected Goal: Effective communication Outcome: Progressing as expected Problem: Mental Status - Impaired Goal: Able to achieve maximum level of cognitive ability Outcome: Progressing as expected Problem: Restraint Use Goal: Absence of restraint indications Outcome: Progressing as expected Goal: Absence of restraint-related injury Outcome: Progressing as expected Critical access hospital 2023-12-25 10:38:46 Problem: Falls, Risk of Goal: Absence of falls Outcome: Progressing as expected [facility] Hailey Carvalho RN [facility] 2023-12-25 00:32:57 Problem: Falls, Risk of Goal: Absence of falls Outcome: Progressing as expected Problem: Infection Risk Goal: Absence of infection Outcome: Progressing as expected Problem: Restraint Use Goal: Absence of restraint indications Outcome: Progressing as expected Goal: Absence of restraint-related injury Outcome: Progressing as expected Problem: Pain Goal: Control of pain at or below patient's documented comfort goal Outcome: Progressing as expected Goal: Reduction in pain sensation Outcome: Progressing as expected Problem: Skin integrity Impaired (Risk or Actual) Goal: Wound healing Outcome: Progressing as expected Goal: Prevention of new skin breakdown Outcome: Progressing as expected Problem: Respiratory Function - Impaired Goal: Able to cough effectively Outcome: Progressing as expected Goal: Adequate oxygenation Outcome: Progressing as expected Goal: Adequate work of breathing Outcome: Progressing as expected Goal: Patent airway Outcome: Progressing as expected Problem: Discharge Planning Goal: Adequate for discharge Outcome: Progressing as expected Goal: Effective communication Outcome: Progressing as expected Problem: Mental Status - Impaired Goal: Able to achieve maximum level of cognitive ability Outcome: Progressing as expected [facility] [employer] 2023-12-24 00:56:29 Problem: Falls, Risk of Goal: Absence of falls Outcome: Progressing as expected Problem: Infection Risk Goal: Absence of infection Outcome: Progressing as expected Problem: Restraint Use Goal: Absence of restraint indications Outcome: Progressing as expected Goal: Absence of restraint-related injury Outcome: Progressing as expected Problem: Pain Goal: Control of pain at or below patient's documented comfort goal Outcome: Progressing as expected Goal: Reduction in pain sensation Outcome: Progressing as expected Problem: Skin integrity Impaired (Risk or Actual) Goal: Wound healing Outcome: Progressing as expected Goal: Prevention of new skin breakdown Outcome: Progressing as expected Problem: Respiratory Function - Impaired Goal: Able to cough effectively Outcome: Progressing as expected Goal: Adequate oxygenation Outcome: Progressing as expected Goal: Adequate work of breathing Outcome: Progressing as expected Goal: Patent airway Outcome: Progressing as expected Problem: Discharge Planning Goal: Adequate for discharge Outcome: Progressing as expected Goal: Effective communication Outcome: Progressing as expected Problem: Mental Status - Impaired Goal: Able to achieve maximum level of cognitive ability Outcome: Progressing as expected [facility] hospital 2023-12-23 18:14:24 Problem: Falls, Risk of Goal: Absence of falls Outcome: Progressing as expected Problem: Infection Risk Goal: Absence of infection Outcome: Progressing as expected Problem: Pain Goal: Control of pain at or below patient's documented comfort goal Outcome: Progressing as expected Goal: Reduction in pain sensation Outcome: Progressing as expected Problem: Skin integrity Impaired (Risk or Actual) Goal: Wound healing Outcome: Progressing as expected Goal: Prevention of new skin breakdown Outcome: Progressing as expected Problem: Respiratory Function - Impaired Goal: Able to cough effectively Outcome: Progressing as expected Goal: Adequate oxygenation Outcome: Progressing as expected Goal: Adequate work of breathing Outcome: Progressing as expected Goal: Patent airway Outcome: Progressing as expected Problem: Discharge Planning Goal: Adequate for discharge Outcome: Progressing as expected Goal: Effective communication Outcome: Progressing as expected Problem: Mental Status - Impaired Goal: Able to achieve maximum level of cognitive ability Outcome: Progressing as expected Problem: Restraint Use Goal: Absence of restraint indications Outcome: Progressing as expected Goal: Absence of restraint-related injury Outcome: Progressing as expected Critical [facility] hospital 2023-12-23 18:00:00 Problem: Falls, Risk of Goal: Absence of falls 12/23/20232005 by Nel Pierce RN Outcome: Progressing as expected 12/23/2023 181 by Nel Pierce RN Outcome: Progressing as expected Problem: Infection Risk Goal: Absence of infection 12/23/20232005 by Nel Pierce RN Outcome: Progressing as expected 12/23/20231813 by Nel Pierce RN Outcome: Progressing as expected Problem: Pain Goal: Control of pain at or below patient's documented comfort goal 12/23/20232005 by Nel Pierce RN Outcome: Progressing as expected 12/23/20231813 by Nel Pierce RN Outcome: Progressing as expected Goal: Reduction in pain sensation 12/23/20232005 by Nel Pierce RN Outcome: Progressing as expected 12/23/20231813 by Nel Pierce RN Outcome: Progressing as expected Problem: Skin integrity Impaired (Risk or Actual) Goal: Wound healing 12/23/20232005 by Nel Pierce RN Outcome: Progressing as expected 12/23/2023 181 by eNl Pierce RN Outcome: Progressing as expected Goal: Prevention of new skin breakdown 12/23/20232005 by Nel Pierce RN Outcome: Progressing as expected 12/23/2023 181 by Nel Pierce RN Outcome: Progressing as expected Problem: Respiratory Function - Impaired Goal: Able to cough effectively 12/23/20232005 by Nel Pierce RN Outcome: Progressing as expected 12/23/2023 181 by Nel Pierce RN Outcome: Progressing as expected Goal: Adequate oxygenation 12/23/20232005 by Nel Pierce RN Outcome: Progressing as expected 12/23/2023 181 by Nel Pierce RN Outcome: Progressing as expected Goal: Adequate work of breathing 12/23/20232005 by Nel Pierce RN Outcome: Progressing as expected 12/23/2023 181 by Nel Pierce RN Outcome: Progressing as expected Goal: Patent airway 12/23/20232005 by Nel Pierce RN Outcome: Progressing as expected 12/23/2023 181 by Nel Pierce RN Outcome: Progressing as expected Problem: Discharge Planning Goal: Adequate for discharge 12/23/20232005 by Nel Pierce RN Outcome: Progressing as expected 12/23/2023 181 by Nel Pierce RN Outcome: Progressing as expected Goal: Effective communication 12/23/20232005 by Nel Pierce RN Outcome: Progressing as expected 12/23/2023 181 by Nel Pierce RN Outcome: Progressing as expected Problem: Mental Status - Impaired Goal: Able to achieve maximum level of cognitive ability 12/23/20232005 by Nel Pierce RN Outcome: Progressing as expected 12/23/2023 181 by Nel Pierce RN Outcome: Progressing as expected Problem: Restraint Use Goal: Absence of restraint indications 12/23/20232005 by Nel Pierce RN Outcome: Progressing as expected 12/23/20231813 by Nel Pierce RN Outcome: Progressing as expected Goal: Absence of restraint-related injury 12/23/20232005 by Nel Pierce RN Outcome: Progressing as expected 12/23/20231813 by Nel Pierce RN Outcome: Progressing as expected [facility] 2023-12-22 23:21:44 Problem: Falls, Risk of Goal: Absence of falls 12/22/20232320 by Jarek Butt RN Outcome: Progressing as expected 12/22/20232320 by Jarek Butt RN Outcome: Progressing as expected Problem: Infection Risk Goal: Absence of infection 12/22/20232320 by Jarek Butt RN Outcome: Progressing as expected 12/22/20232320 by Jarek Butt RN Outcome: Progressing as expected Problem: Pain Goal: Control of pain at or below patient's documented comfort goal 12/22/20232320 by Jarek Butt RN Outcome: Progressing as expected 12/22/20232320 by Jarek Butt RN Outcome: Progressing as expected Goal: Reduction in pain sensation 12/22/20232320 by Jarek Butt RN Outcome: Progressing as expected 12/22/20232320 by Jarek Butt RN Outcome: Progressing as expected Problem: Skin integrity Impaired (Risk or Actual) Goal: Wound healing 12/22/20232320 by Jarek Butt RN Outcome: Progressing as expected 12/22/20232320 by Jarek Butt RN Outcome: Progressing as expected Goal: Prevention of new skin breakdown 12/22/20232320 by Jarek Butt RN Outcome: Progressing as expected 12/22/20232320 by Jarek Butt RN Outcome: Progressing as expected Problem: Respiratory Function - Impaired Goal: Able to cough effectively 12/22/20232320 by Stredic, Jarek D, RN Outcome: Progressing as expected 12/22/20232320 by Jarek Butt RN Outcome: Progressing as expected Goal: Adequate oxygenation 12/22/20232320 by Jarek Butt RN Outcome: Progressing as expected 12/22/20232320 by Jarek Butt RN Outcome: Progressing as expected Goal: Adequate work of breathing 12/22/20232320 by Jarek Butt RN Outcome: Progressing as expected 12/22/20232320 by Jarek Butt RN Outcome: Progressing as expected Goal: Patent airway 12/22/20232320 by Jarek Butt RN Outcome: Progressing as expected 12/22/20232320 by Jarek Butt RN Outcome: Progressing as expected Problem: Discharge Planning Goal: Adequate for discharge 12/22/20232320 by Jarek Butt RN Outcome: Progressing as expected 12/22/20232320 by Jarek Butt RN Outcome: Progressing as expected Goal: Effective communication 12/22/20232320 by Jarek Butt RN Outcome: Progressing as expected 12/22/20232320 by Jarek Butt RN Outcome: Progressing as expected Problem: Mental Status - Impaired Goal: Able to achieve maximum level of cognitive ability 12/22/20232320 by Jarek Butt RN Outcome: Progressing as expected 12/22/20232320 by Jarek Butt RN Outcome: Progressing as expected Problem: Restraint Use Goal: Absence of restraint indications 12/22/20232320 by Jarek Butt RN Outcome: Progressing as expected 12/22/20232320 by Jarek Butt RN Outcome: Progressing as expected Goal: Absence of restraint-related injury 12/22/20232320 by Jarek Butt RN Outcome: Progressing as expected 12/22/20232320 by Jarek Butt RN Outcome: Progressing as expected Critical access hospital 2023-12-22 15:59:01 Problem: Falls, Risk of Goal: Absence of falls 12/22/2023 1556 by Nel Pierce RN Outcome: Progressing as expected 12/22/2023 1554 by Nel Pierce RN Outcome: Progressing as expected Problem: Infection Risk Goal: Absence of infection 12/22/2023 1556 by Nel Pierce RN Outcome: Progressing as expected 12/22/2023 1554 by Nel Pierce RN Outcome: Progressing as expected Problem: Pain Goal: Control of pain at or below patient's documented comfort goal 12/22/2023 1556 by Nel Pierce RN Outcome: Progressing as expected 12/22/2023 1554 by Nel Pierce RN Outcome: Progressing as expected Goal: Reduction in pain sensation 12/22/2023 1556 by Nel Pierce RN Outcome: Progressing as expected 12/22/2023 1554 by Nel Pierce RN Outcome: Progressing as expected Problem: Skin integrity Impaired (Risk or Actual) Goal: Wound healing 12/22/2023 1556 by Nel Pierce RN Outcome: Progressing as expected 12/22/2023 1554 by Nel Pierce RN Outcome: Progressing as expected Goal: Prevention of new skin breakdown 12/22/2023 1556 by Nel Pierce RN Outcome: Progressing as expected 12/22/2023 1554 by Nel Pierce RN Outcome: Progressing as expected Problem: Respiratory Function - Impaired Goal: Able to cough effectively 12/22/2023 1556 by Nel Pierce RN Outcome: Progressing as expected 12/22/2023 1554 by Nel Pierce RN Outcome: Progressing as expected Goal: Adequate oxygenation 12/22/2023 1556 by Nel Pierce RN Outcome: Progressing as expected 12/22/2023 1554 by Nel Pierce RN Outcome: Progressing as expected Goal: Adequate work of breathing 12/22/2023 1556 by Nel Pierce RN Outcome: Progressing as expected 12/22/2023 1554 by Nel Pierce RN Outcome: Progressing as expected Goal: Patent airway 12/22/2023 1556 by Nel Pierce RN Outcome: Progressing as expected 12/22/2023 1554 by Nel Pierce RN Outcome: Progressing as expected Problem: Discharge Planning Goal: Adequate for discharge 12/22/2023 1556 by Nel Pierce RN Outcome: Progressing as expected 12/22/2023 1554 by Nel Pierce RN Outcome: Progressing as expected Goal: Effective communication 12/22/2023 1556 by Nel Pierce RN Outcome: Progressing as expected 12/22/2023 1554 by Nel Pierce RN Outcome: Progressing as expected Problem: Mental Status - Impaired Goal: Able to achieve maximum level of cognitive ability 12/22/2023 1556 by Nel Pierce RN Outcome: Progressing as expected 12/22/2023 1554 by Nel Pierce RN Outcome: Progressing as expected Problem: Restraint Use Goal: Absence of restraint indications 12/22/2023 1556 by Nel Pierce RN Outcome: Progressing as expected 12/22/2023 1554 by Nel Pierce RN Outcome: Progressing as expected Goal: Absence of restraint-related injury 12/22/2023 1556 by Nel Pierce RN Outcome: Progressing as expected 12/22/2023 1554 by Nel Pierce RN Outcome: Progressing as expected Critical access hospital 2023-12-21 11:59:03 Problem: Falls, Risk of Goal: Absence of falls Outcome: Progressing as expected Problem: Infection Risk Goal: Absence of infection Outcome: Progressing as expected Problem: Pain Goal: Control of pain at or below patient's documented comfort goal Outcome: Progressing as expected Goal: Reduction in pain sensation Outcome: Progressing as expected Problem: Skin integrity Impaired (Risk or Actual) Goal: Wound healing Outcome: Progressing as expected Goal: Prevention of new skin breakdown Outcome: Progressing as expected Problem: Respiratory Function - Impaired Goal: Able to cough effectively Outcome: Progressing as expected Goal: Adequate oxygenation Outcome: Progressing as expected Goal: Adequate work of breathing Outcome: Progressing as expected Goal: Patent airway Outcome: Progressing as expected Problem: Discharge Planning Goal: Adequate for discharge Outcome: Progressing as expected Goal: Effective communication Outcome: Progressing as expected Problem: Mental Status - Impaired Goal: Able to achieve maximum level of cognitive ability Outcome: Progressing as expected Problem: Restraint Use Goal: Absence of restraint indications Outcome: Progressing as expected Goal: Absence of restraint-related injury Outcome: Progressing as expected Critical access hospital 2023-12-21 04:33:41 Patient refused morning labs. Paged MD to notify. [facility] Sylvia Riley RN [facility] 2023-12-21 00:49:48 Pt continues to refuse: ID band, fall precaution band, oxygen/nasal cannula, replace tele monitor leads that are coming off, head to toe nursing assessment, certain medications, to be checked to see if soiled, andrew care/bath, turn/reposition, abdominal/wound assessment. Paged MD to come assess patient for need for suicide precautions d/t statements made on day shift and nurse request for patient to be assessed at that time. This nurse assessed patient for SI/HI and patient stated "If I'm going to be like this I don't want to be here but lots of people feel that way. I'm not going to hurt myself." Currently do not have order for suicide precautions. event promotions coordinator remains at bedside. Room not set up for SI precautions d/t questionable need and lack of order. MD returned call and stated that primary team would not be coming to bedside to assess and that psych would be consulted to assess patient for any concerns in the morning. event promotions coordinator remains at bedside and area within patients reach has been cleared of items that could cause harm. [facility] 2023-12-21 00:39:08 Problem: Falls, Risk of Goal: Absence of falls Outcome: Progressing as expected Problem: Infection Risk Goal: Absence of infection Outcome: Progressing as expected Problem: Pain Goal: Control of pain at or below patient's documented comfort goal Outcome: Progressing as expected Goal: Reduction in pain sensation Outcome: Progressing as expected Problem: Skin integrity Impaired (Risk or Actual) Goal: Wound healing Outcome: Progressing as expected Goal: Prevention of new skin breakdown Outcome: Progressing as expected Problem: Respiratory Function - Impaired Goal: Able to cough effectively Outcome: Progressing as expected Goal: Adequate oxygenation Outcome: Progressing as expected Goal: Adequate work of breathing Outcome: Progressing as expected Goal: Patent airway Outcome: Progressing as expected Problem: Discharge Planning Goal: Adequate for discharge Outcome: Progressing as expected Goal: Effective communication Outcome: Progressing as expected Problem: Mental Status - Impaired Goal: Able to achieve maximum level of cognitive ability Outcome: Progressing as expected Problem: Restraint Use Goal: Absence of restraint indications Outcome: Progressing as expected Goal: Absence of restraint-related injury Outcome: Progressing as expected [facility] 2023-12-20 11:33:30 Patient is still refusing to be touched and medications. I was able to crush her morning meds and mix them with chocolate pudding. She told me that she would take two bites and two bites only. I let her know that she has feces on her gown and that we need to change it so she doesn't get an infection. She told me you will not touch me, my gown is just fine. She wanted me to let her rest. I agreed and told her I would be back to check on her later. The sitter is bedside. [facility] 2023-12-20 10:09:09 Problem: Falls, Risk of Goal: Absence of falls 12/20/2023 1009 by Mimi Zuñiga, RN Outcome: Progressing as expected 12/20/2023 1008 by Mimi Zuñiga, RN Outcome: Progressing as expected Problem: Infection Risk Goal: Absence of infection 12/20/2023 1009 by Mimi Zuñiga, RN Outcome: Progressing as expected 12/20/2023 1008 by Mimi Zuñiga RN Outcome: Progressing as expected Problem: Pain Goal: Control of pain at or below patient's documented comfort goal 12/20/2023 1009 by Mimi Zuñiga RN Outcome: Progressing as expected 12/20/2023 100 by Mimi Zuñiga RN Outcome: Progressing as expected Goal: Reduction in pain sensation 12/20/2023 100 by Mimi Zuñiga RN Outcome: Progressing as expected 12/20/2023 100 by Mimi Zuñiga RN Outcome: Progressing as expected Problem: Skin integrity Impaired (Risk or Actual) Goal: Wound healing 12/20/2023 100 by Mimi Zuñiga RN Outcome: Progressing as expected 12/20/2023 100 by Mimi Zuñiga RN Outcome: Progressing as expected Goal: Prevention of new skin breakdown 12/20/2023 100 by Mimi Zuñiga RN Outcome: Progressing as expected 12/20/2023 100 by Mimi Zuñiga RN Outcome: Progressing as expected Problem: Respiratory Function - Impaired Goal: Able to cough effectively 12/20/2023 100 by Mimi Zuñiga RN Outcome: Progressing as expected 12/20/2023 100 by Mimi Zuñiga RN Outcome: Progressing as expected Goal: Adequate oxygenation 12/20/2023 100 by Mimi Zuñiga RN Outcome: Progressing as expected 12/20/2023 100 by Mimi Zuñiga RN Outcome: Progressing as expected Goal: Adequate work of breathing 12/20/2023 1009 by Mimi Zuñiga RN Outcome: Progressing as expected 12/20/2023 1008 by Mimi Zuñiga RN Outcome: Progressing as expected Goal: Patent airway 12/20/2023 100 by Mimi Zuñiga RN Outcome: Progressing as expected 12/20/2023 100 by Mimi Zuñiga RN Outcome: Progressing as expected Problem: Discharge Planning Goal: Adequate for discharge 12/20/2023 1009 by Mimi Zuñiga, RN Outcome: Progressing as expected 12/20/2023 100 by Mimi Zuñiga RN Outcome: Progressing as expected Goal: Effective communication 12/20/2023 100 by Mimi Zuñiga RN Outcome: Progressing as expected 12/20/2023 1008 by Mimi Zuñiga RN Outcome: Progressing as expected Problem: Mental Status - Impaired Goal: Able to achieve maximum level of cognitive ability 12/20/2023 100 by Mimi Zuñiga RN Outcome: Progressing as expected 12/20/2023 100 by Mimi Zuñiga RN Outcome: Progressing as expected Problem: Restraint Use Goal: Absence of restraint indications 12/20/2023 100 by Mimi Zuñiga RN Outcome: Progressing as expected 12/20/2023 100 by Mimi Zuñiga RN Outcome: Progressing as expected Goal: Absence of restraint-related injury 12/20/2023 100 by Mimi Zuñiga RN Outcome: Progressing as expected 12/20/20231007 by Mimi Zuñiga RN Outcome: Progressing as expected T [facility] 2023-12-20 02:35:45 Problem: Falls, Risk of Goal: Absence of falls Outcome: Progressing as expected Problem: Infection Risk Goal: Absence of infection Outcome: Progressing as expected Problem: Restraint Use Goal: Absence of restraint indications Outcome: Progressing as expected Goal: Absence of restraint-related injury Outcome: Progressing as expected Problem: Pain Goal: Control of pain at or below patient's documented comfort goal Outcome: Progressing as expected Goal: Reduction in pain sensation Outcome: Progressing as expected Problem: Skin integrity Impaired (Risk or Actual) Goal: Wound healing Outcome: Progressing as expected Goal: Prevention of new skin breakdown Outcome: Progressing as expected Problem: Respiratory Function - Impaired Goal: Able to cough effectively Outcome: Progressing as expected Goal: Adequate oxygenation Outcome: Progressing as expected Goal: Adequate work of breathing Outcome: Progressing as expected Goal: Patent airway Outcome: Progressing as expected Problem: Discharge Planning Goal: Adequate for discharge Outcome: Progressing as expected Goal: Effective communication Outcome: Progressing as expected Problem: Mental Status - Impaired Goal: Able to achieve maximum level of cognitive ability Outcome: Progressing as expected T Pablo Slaughter RN [facility] 2023-12-19 12:56:35 Problem: Falls, Risk of Goal: Absence of falls Outcome: Not progressing as expected Problem: Infection Risk Goal: Absence of infection Outcome: Not progressing as expected Problem: Pain Goal: Control of pain at or below patient's documented comfort goal Outcome: Not progressing as expected Goal: Reduction in pain sensation Outcome: Not progressing as expected Problem: Skin integrity Impaired (Risk or Actual) Goal: Wound healing Outcome: Not progressing as expected Goal: Prevention of new skin breakdown Outcome: Not progressing as expected Problem: Respiratory Function - Impaired Goal: Able to cough effectively Outcome: Not progressing as expected Goal: Adequate oxygenation Outcome: Not progressing as expected Goal: Adequate work of breathing Outcome: Not progressing as expected Goal: Patent airway Outcome: Not progressing as expected Problem: Discharge Planning Goal: Adequate for discharge Outcome: Not progressing as expected Goal: Effective communication Outcome: Not progressing as expected Problem: Mental Status - Impaired Goal: Able to achieve maximum level of cognitive ability Outcome: Not progressing as expected Problem: Restraint Use Goal: Absence of restraint indications Outcome: Not progressing as expected Goal: Absence of restraint-related injury Outcome: Not progressing as expected Patient is refusing care. T Danika Arredondo RN [facility] 2023-12-18 17:09:00 Pt is refusing to take her meds. She wants to decide what pills she wants and when. She stated that her daughter told her that she can refuse treatment or anything that she wants. She told myself and the staff to not touch her and to get out of her room. Contrast was ordered in order to do CT but she would not drink a full bottle of the contrast solution in order to do the scan. She did take her pain meds and I was able to get all IV meds in. But the rest of the meds she would not. She also refused dressing changes or to be touched unless we are moving her leg for her right when she tells us to. Granddaughter was bedside trying to help but patient was yelling at her too so she left and went home. [facility] 2023-12-18 17:06:08 Problem: Falls, Risk of Goal: Absence of falls Outcome: Progressing as expected Problem: Infection Risk Goal: Absence of infection Outcome: Progressing as expected Problem: Pain Goal: Control of pain at or below patient's documented comfort goal Outcome: Progressing as expected Goal: Reduction in pain sensation Outcome: Progressing as expected Problem: Skin integrity Impaired (Risk or Actual) Goal: Wound healing Outcome: Progressing as expected Goal: Prevention of new skin breakdown Outcome: Progressing as expected Problem: Respiratory Function - Impaired Goal: Able to cough effectively Outcome: Progressing as expected Goal: Adequate oxygenation Outcome: Progressing as expected Goal: Adequate work of breathing Outcome: Progressing as expected Goal: Patent airway Outcome: Progressing as expected Problem: Discharge Planning Goal: Adequate for discharge Outcome: Progressing as expected Goal: Effective communication Outcome: Progressing as expected Problem: Mental Status - Impaired Goal: Able to achieve maximum level of cognitive ability Outcome: Progressing as expected Problem: Restraint Use Goal: Absence of restraint indications Outcome: Progressing as expected Goal: Absence of restraint-related injury Outcome: Progressing as expected Critical access hospital 2023-12-17 22:01:46 Problem: Falls, Risk of Goal: Absence of falls Outcome: Progressing as expected Problem: Infection Risk Goal: Absence of infection Outcome: Progressing as expected Problem: Pain Goal: Control of pain at or below patient's documented comfort goal Outcome: Progressing as expected Goal: Reduction in pain sensation Outcome: Progressing as expected Problem: Skin integrity Impaired (Risk or Actual) Goal: Wound healing Outcome: Progressing as expected Goal: Prevention of new skin breakdown Outcome: Progressing as expected Problem: Respiratory Function - Impaired Goal: Able to cough effectively Outcome: Progressing as expected Goal: Adequate oxygenation Outcome: Progressing as expected Goal: Adequate work of breathing Outcome: Progressing as expected Goal: Patent airway Outcome: Progressing as expected Problem: Discharge Planning Goal: Adequate for discharge Outcome: Progressing as expected Goal: Effective communication Outcome: Progressing as expected Problem: Mental Status - Impaired Goal: Able to achieve maximum level of cognitive ability Outcome: Progressing as expected Problem: Restraint Use Goal: Absence of restraint indications Outcome: Progressing as expected Goal: Absence of restraint-related injury Outcome: Progressing as expected [facility] 2023-12-17 21:00:00 R'cd pt semi-fowlers in bed, resting comfortably, eyes closed. Pt A&O x 1, per request to allow pt to sleep due to pt not able to get proper rest at times. No noted distress, no noted discomfort. All safety measures in effect, call light in reach, at bedside, sitter in place. Will continue to monitor for any change in condition. Butt RN [facility] 2023-12-17 19:12:34 Problem: Falls, Risk of Goal: Absence of falls Outcome: Progressing as expected Problem: Infection Risk Goal: Absence of infection Outcome: Progressing as expected Problem: Pain Goal: Control of pain at or below patient's documented comfort goal Outcome: Progressing as expected Goal: Reduction in pain sensation Outcome: Progressing as expected Problem: Skin integrity Impaired (Risk or Actual) Goal: Wound healing Outcome: Progressing as expected Goal: Prevention of new skin breakdown Outcome: Progressing as expected Problem: Respiratory Function - Impaired Goal: Able to cough effectively Outcome: Progressing as expected Goal: Adequate oxygenation Outcome: Progressing as expected Goal: Adequate work of breathing Outcome: Progressing as expected Goal: Patent airway Outcome: Progressing as expected Problem: Discharge Planning Goal: Adequate for discharge Outcome: Progressing as expected Goal: Effective communication Outcome: Progressing as expected Problem: Mental Status - Impaired Goal: Able to achieve maximum level of cognitive ability Outcome: Progressing as expected Problem: Restraint Use Goal: Absence of restraint indications Outcome: Progressing as expected Goal: Absence of restraint-related injury Outcome: Progressing as expected [place] RN [facility] 2023-12-17 05:34:28 Spoke to Surgery residents about either arranging a sitter for the patient or obtaining n order for video monitoring as RN is concerned about the patient pulling out her midline. They will discuss this with the morning team and place necessary orders afterwards, Jeny Mac RN [facility] 2023-12-17 01:01:48 RN offered to change dressing twice for her wounds, pt refused each time stating she doesn't want it to done tonight. Will attempt to change it again, All wounds dressing changed, colostomy bag replaced. [facility] 2023-12-17 01:00:04 Problem: Falls, Risk of Goal: Absence of falls Outcome: Progressing as expected Problem: Infection Risk Goal: Absence of infection Outcome: Progressing as expected Problem: Pain Goal: Control of pain at or below patient's documented comfort goal Outcome: Progressing as expected Goal: Reduction in pain sensation Outcome: Progressing as expected Problem: Skin integrity Impaired (Risk or Actual) Goal: Wound healing Outcome: Progressing as expected Goal: Prevention of new skin breakdown Outcome: Progressing as expected Problem: Respiratory Function - Impaired Goal: Able to cough effectively Outcome: Progressing as expected Goal: Adequate oxygenation Outcome: Progressing as expected Goal: Adequate work of breathing Outcome: Progressing as expected Goal: Patent airway Outcome: Progressing as expected Problem: Discharge Planning Goal: Adequate for discharge Outcome: Progressing as expected Goal: Effective communication Outcome: Progressing as expected Problem: Mental Status - Impaired Goal: Able to achieve maximum level of cognitive ability Outcome: Progressing as expected Problem: Restraint Use Goal: Absence of restraint indications Outcome: Progressing as expected Goal: Absence of restraint-related injury Outcome: Progressing as expected [facility] 2023-12-16 13:35:59 Problem: Falls, Risk of Goal: Absence of falls Outcome: Progressing as expected Problem: Infection Risk Goal: Absence of infection Outcome: Progressing as expected Problem: Pain Goal: Control of pain at or below patient's documented comfort goal Outcome: Progressing as expected Goal: Reduction in pain sensation Outcome: Progressing as expected Problem: Skin integrity Impaired (Risk or Actual) Goal: Wound healing Outcome: Progressing as expected Goal: Prevention of new skin breakdown Outcome: Progressing as expected Problem: Respiratory Function - Impaired Goal: Able to cough effectively Outcome: Progressing as expected Goal: Adequate oxygenation Outcome: Progressing as expected Goal: Adequate work of breathing Outcome: Progressing as expected Goal: Patent airway Outcome: Progressing as expected Problem: Discharge Planning Goal: Adequate for discharge Outcome: Progressing as expected Goal: Effective communication Outcome: Progressing as expected Problem: Mental Status - Impaired Goal: Able to achieve maximum level of cognitive ability Outcome: Progressing as expected [facility] 2023-12-16 07:21:15 Unsuccessful attempt X 2 to insert PIV d/t poor venous return site areas. MD aware of PIV need. [facility] 2023-12-16 00:47:51 Problem: Falls, Risk of Goal: Absence of falls Outcome: Progressing as expected Problem: Infection Risk Goal: Absence of infection Outcome: Progressing as expected Problem: Pain Goal: Control of pain at or below patient's documented comfort goal Outcome: Progressing as expected Goal: Reduction in pain sensation Outcome: Progressing as expected Problem: Skin integrity Impaired (Risk or Actual) Goal: Wound healing Outcome: Progressing as expected Goal: Prevention of new skin breakdown Outcome: Progressing as expected Problem: Respiratory Function - Impaired Goal: Able to cough effectively Outcome: Progressing as expected Goal: Adequate oxygenation Outcome: Progressing as expected Goal: Adequate work of breathing Outcome: Progressing as expected Goal: Patent airway Outcome: Progressing as expected Problem: Discharge Planning Goal: Adequate for discharge Outcome: Progressing as expected Goal: Effective communication Outcome: Progressing as expected Problem: Mental Status - Impaired Goal: Able to achieve maximum level of cognitive ability Outcome: Progressing as expected Problem: Restraint Use Goal: Absence of restraint indications Outcome: Progressing as expected Goal: Absence of restraint-related injury Outcome: Progressing as expected [facility] 2023-12-15 18:43:00 Primary nurse performed dressing change to LLQ abdominal surgical incision with Dakins solution, kerlex, abdominal pad, and foam tape. T Ginette Pang RN [facility] 2023-12-15 11:27:55 Problem: Falls, Risk of Goal: Absence of falls Outcome: Progressing as expected Problem: Infection Risk Goal: Absence of infection Outcome: Progressing as expected Problem: Pain Goal: Control of pain at or below patient's documented comfort goal Outcome: Progressing as expected Goal: Reduction in pain sensation Outcome: Progressing as expected Problem: Skin integrity Impaired (Risk or Actual) Goal: Wound healing Outcome: Progressing as expected Goal: Prevention of new skin breakdown Outcome: Progressing as expected Problem: Respiratory Function - Impaired Goal: Able to cough effectively Outcome: Progressing as expected Goal: Adequate oxygenation Outcome: Progressing as expected Goal: Adequate work of breathing Outcome: Progressing as expected Goal: Patent airway Outcome: Progressing as expected Problem: Discharge Planning Goal: Adequate for discharge Outcome: Progressing as expected Goal: Effective communication Outcome: Progressing as expected Problem: Mental Status - Impaired Goal: Able to achieve maximum level of cognitive ability Outcome: Progressing as expected Problem: Restraint Use Goal: Absence of restraint indications Outcome: Progressing as expected Goal: Absence of restraint-related injury Outcome: Progressing as expected T [facility] 2023-12-15 02:44:13 Problem: Falls, Risk of Goal: Absence of falls Outcome: Progressing as expected Problem: Infection Risk Goal: Absence of infection Outcome: Progressing as expected Problem: Restraint Use Goal: Absence of restraint indications Outcome: Progressing as expected Goal: Absence of restraint-related injury Outcome: Progressing as expected Problem: Pain Goal: Control of pain at or below patient's documented comfort goal Outcome: Progressing as expected Goal: Reduction in pain sensation Outcome: Progressing as expected Problem: Skin integrity Impaired (Risk or Actual) Goal: Wound healing Outcome: Progressing as expected Goal: Prevention of new skin breakdown Outcome: Progressing as expected Problem: Respiratory Function - Impaired Goal: Able to cough effectively Outcome: Progressing as expected Goal: Adequate oxygenation Outcome: Progressing as expected Goal: Adequate work of breathing Outcome: Progressing as expected Goal: Patent airway Outcome: Progressing as expected Problem: Discharge Planning Goal: Adequate for discharge Outcome: Progressing as expected Goal: Effective communication Outcome: Progressing as expected Problem: Mental Status - Impaired Goal: Able to achieve maximum level of cognitive ability Outcome: Progressing as expected [facility] 2023-12-15 01:32:08 [id number] returning page by Beckie Carreon MD. Nurse notified MD that patient's PIV had infiltrated and was removed. Rapid response nurse attempted to place an Ultrasound IV, but was unsuccessful after 2 attempts. stated "when the aPTT is redrawn, if the heparin is held administer IV KCl and ABX through the midline running heparin, and if heparin is needed to continue infusing, hold other IV medications until the morning when vascular access can place a new line." T Chary Lozano RN [facility] 2023-12-14 12:42:01 HEMATOLOGY & ONCOLOGY BRIEF UPDATE / SIGN OFF NOTE S/p 5mg IV Vitamin K on 12/12 for vitamin K deficiency, with improvement in INR to 1 today. No further recommendations from our end. Thank you for involving us in the care of this interesting patient. We will sign off and be available if needed. Please call with any questions or concerns. Patient discussed with Dr. Nunes, Faculty. Adrian Tavares MD PGY6 - Heme/Onc Fellow [facility] Dept of Hematology and Oncology HEMATOLOGY & ONCOLOGY [facility] 2023-12-14 08:55:09 Problem: Falls, Risk of Goal: Absence of falls Outcome: Progressing as expected Problem: Infection Risk Goal: Absence of infection Outcome: Progressing as expected Problem: Restraint Use Goal: Absence of restraint indications Outcome: Progressing as expected Goal: Absence of restraint-related injury Outcome: Progressing as expected Problem: Pain Goal: Control of pain at or below patient's documented comfort goal Outcome: Progressing as expected Goal: Reduction in pain sensation Outcome: Progressing as expected Problem: Skin integrity Impaired (Risk or Actual) Goal: Wound healing Outcome: Progressing as expected Goal: Prevention of new skin breakdown Outcome: Progressing as expected Problem: Respiratory Function - Impaired Goal: Able to cough effectively Outcome: Progressing as expected Goal: Adequate oxygenation Outcome: Progressing as expected Goal: Adequate work of breathing Outcome: Progressing as expected Goal: Patent airway Outcome: Progressing as expected Problem: Discharge Planning Goal: Adequate for discharge Outcome: Progressing as expected Goal: Effective communication Outcome: Progressing as expected Problem: Mental Status - Impaired Goal: Able to achieve maximum level of cognitive ability Outcome: Progressing as expected Dayday Leal RN [facility] 2023-12-14 02:21:17 Problem: Falls, Risk of Goal: Absence of falls Outcome: Progressing as expected Problem: Infection Risk Goal: Absence of infection Outcome: Progressing as expected Problem: Pain Goal: Control of pain at or below patient's documented comfort goal Outcome: Progressing as expected Goal: Reduction in pain sensation Outcome: Progressing as expected Problem: Skin integrity Impaired (Risk or Actual) Goal: Wound healing Outcome: Progressing as expected Goal: Prevention of new skin breakdown Outcome: Progressing as expected Problem: Respiratory Function - Impaired Goal: Able to cough effectively Outcome: Progressing as expected Goal: Adequate oxygenation Outcome: Progressing as expected Goal: Adequate work of breathing Outcome: Progressing as expected Goal: Patent airway Outcome: Progressing as expected Problem: Discharge Planning Goal: Adequate for discharge Outcome: Progressing as expected Goal: Effective communication Outcome: Progressing as expected Problem: Mental Status - Impaired Goal: Able to achieve maximum level of cognitive ability Outcome: Progressing as expected Problem: Restraint Use Goal: Absence of restraint indications Outcome: Progressing as expected Goal: Absence of restraint-related injury Outcome: Progressing as expected Cortes RN [facility] 2023-12-13 11:44:13 Problem: Falls, Risk of Goal: Absence of falls Outcome: Progressing as expected Problem: Infection Risk Goal: Absence of infection Outcome: Progressing as expected Problem: Restraint Use Goal: Absence of restraint indications Outcome: Progressing as expected Goal: Absence of restraint-related injury Outcome: Progressing as expected Problem: Pain Goal: Control of pain at or below patient's documented comfort goal Outcome: Progressing as expected Goal: Reduction in pain sensation Outcome: Progressing as expected Problem: Skin integrity Impaired (Risk or Actual) Goal: Wound healing Outcome: Progressing as expected Goal: Prevention of new skin breakdown Outcome: Progressing as expected Problem: Respiratory Function - Impaired Goal: Able to cough effectively Outcome: Progressing as expected Goal: Adequate oxygenation Outcome: Progressing as expected Goal: Adequate work of breathing Outcome: Progressing as expected Goal: Patent airway Outcome: Progressing as expected Problem: Discharge Planning Goal: Adequate for discharge Outcome: Progressing as expected Goal: Effective communication Outcome: Progressing as expected Problem: Mental Status - Impaired Goal: Able to achieve maximum level of cognitive ability Outcome: Progressing as expected T [facility] 2023-12-13 06:04:16 Problem: Falls, Risk of Goal: Absence of falls Outcome: Progressing as expected Problem: Infection Risk Goal: Absence of infection Outcome: Progressing as expected Problem: Pain Goal: Control of pain at or below patient's documented comfort goal Outcome: Progressing as expected Goal: Reduction in pain sensation Outcome: Progressing as expected Problem: Skin integrity Impaired (Risk or Actual) Goal: Wound healing Outcome: Progressing as expected Goal: Prevention of new skin breakdown Outcome: Progressing as expected Problem: Respiratory Function - Impaired Goal: Able to cough effectively Outcome: Progressing as expected Goal: Adequate oxygenation Outcome: Progressing as expected Goal: Adequate work of breathing Outcome: Progressing as expected Goal: Patent airway Outcome: Progressing as expected Problem: Discharge Planning Goal: Adequate for discharge Outcome: Progressing as expected Goal: Effective communication Outcome: Progressing as expected Problem: Restraint Use Goal: Absence of restraint indications Outcome: Progressing as expected Goal: Absence of restraint-related injury Outcome: Progressing as expected Matt RN [facility] 2023-12-12 13:12:46 This query is intended to gather accurate, complete, and consistent clinical documentation. In responding to this request, please exercise your independent professional judgment. The fact that a question is asked does not imply that any particular answer is desired or expected. . . . Can you please document greater specificity to feculent peritonitis? . . * ____ Peritonitis, POA (Please specify as to Generalized Acute, Localized, Chronic, etc.) * Other (please specify and state POA status) . . Clinical Indicators: 12/02 OP Note -Ex lap- feculent peritonitis with 600 cc loose stool in abdomen in all 4 quadrants Multiple PNs with documentation of Ex lap significant for feculent peritonitis CT Perforated stercoral colitis with pneumoperitoneum, pneumomediastinum and rectal pneumatosis with air and fecal collections in or immediately adjacent to rectal wall communicating with the rectal lumen. OP REPORT Fecal disimpaction -Exploratory laparotomy -Lysis of intra abdominal adhesions -Closure of rectal perforation -Heidi's Procedure- sigmoidectomy with end sigmoid colostomy WBC admit 12/02 19.38; 12/03 22.38; 12/06 15.93; 12/08 20.92; 12/10 13.52 . . Risk Factors: Colon perforation, POA per CT; Hx of Constipation, Morbid Obesity w/ BMI 57.02; Former Smoker . . Treatment: SICU level of Care; Consults to WOCN; Monitor labs/imaging/C&S/PATH; IV Zosyn, Ofirmev; IV Electrolyte Replacement Protocol; Ostomy Care Protocol; Wound Care Protocol/Dakins; O2 per RT Protocol/Oximetry; Weights; TELE; I&O Pt had acute generalized peritonitis secondary to perforation of stercoral ulcer. To Schultz, DO Emergency Medicine PGY-1 12/12/2023 13:14 Is there greater specificity to documentation of agitation? . . * Encephalopathy, not POA (Please specify as to Septic, Toxic Metabolic, Metabolic, etc.) * ____ as cause of agitation, not pOA * Other (please specify and state POA status) . . Clinical Indicators: PN 12/09 24 HOUR EVENTS: - some tachycardia to 150s - 2 episodes emesis 500cc - drain output appears brown this AM - Pt agitated, removing lines ON MAR with PO Seroquel, Robaxin, Tramadol, IV Dilaudid, Robaxin 12/10 WBC 13.52; Plt 367; K+ 3.1, CO2 19; BUN 29; Glucose 126; Ca++ 8.3; P 2.4 . . Risk Factors: Geriatric 73 y/o w/ Hx of Constipation; Morbid Obesity w/ BMI 57.02; Former Smoker . . Treatment: SICU level of care; Monitor labs/imaging/C&S/PATH; Consults to IR, Cardiology; Urology, WCON, PO Seroquel; IV Zosyn, Lasix; Wound Care/Dakins; Ostomy Care Protocol; O2 per RT Protocol/Oximetry; TELE; Advance diet/MD; Ensure Clear PO Supplements; PT/OT eval and treat; l&O; Pt was agitated secondary due to pain and discomfort. To Schultz DO Emergency Medicine PGY-1 12/12/2023 13:17 [facility] [employer] 2023-12-12 05:19:58 Problem: Falls, Risk of Goal: Absence of falls Outcome: Progressing as expected Problem: Infection Risk Goal: Absence of infection Outcome: Progressing as expected Problem: Pain Goal: Control of pain at or below patient's documented comfort goal Outcome: Progressing as expected Goal: Reduction in pain sensation Outcome: Progressing as expected Problem: Skin integrity Impaired (Risk or Actual) Goal: Wound healing Outcome: Progressing as expected Goal: Prevention of new skin breakdown Outcome: Progressing as expected Problem: Respiratory Function - Impaired Goal: Able to cough effectively Outcome: Progressing as expected Goal: Adequate oxygenation Outcome: Progressing as expected Goal: Adequate work of breathing Outcome: Progressing as expected Goal: Patent airway Outcome: Progressing as expected Problem: Discharge Planning Goal: Adequate for discharge Outcome: Progressing as expected Goal: Effective communication Outcome: Progressing as expected [facility] [employer] 2023-12-11 06:49:01 Problem: Falls, Risk of Goal: Absence of falls Outcome: Progressing as expected Problem: Infection Risk Goal: Absence of infection Outcome: Progressing as expected Problem: Pain Goal: Control of pain at or below patient's documented comfort goal Outcome: Progressing as expected Goal: Reduction in pain sensation Outcome: Progressing as expected Problem: Skin integrity Impaired (Risk or Actual) Goal: Wound healing Outcome: Progressing as expected Goal: Prevention of new skin breakdown Outcome: Progressing as expected Problem: Respiratory Function - Impaired Goal: Able to cough effectively Outcome: Progressing as expected Goal: Adequate oxygenation Outcome: Progressing as expected Goal: Adequate work of breathing Outcome: Progressing as expected Goal: Patent airway Outcome: Progressing as expected Miguel Monge RN [facility] 2023-12-10 08:37:18 Problem: Falls, Risk of Goal: Absence of falls Outcome: Progressing as expected Problem: Infection Risk Goal: Absence of infection Outcome: Progressing as expected Problem: Pain Goal: Control of pain at or below patient's documented comfort goal Outcome: Progressing as expected Goal: Reduction in pain sensation Outcome: Progressing as expected Problem: Skin integrity Impaired (Risk or Actual) Goal: Wound healing Outcome: Progressing as expected Goal: Prevention of new skin breakdown Outcome: Progressing as expected Problem: Respiratory Function - Impaired Goal: Able to cough effectively Outcome: Progressing as expected Goal: Adequate oxygenation Outcome: Progressing as expected Goal: Adequate work of breathing Outcome: Progressing as expected Goal: Patent airway Outcome: Progressing as expected Scarlet Gaines RN [facility] 2023-12-09 23:28:17 Problem: Falls, Risk of Goal: Absence of falls Outcome: Progressing as expected Problem: Infection Risk Goal: Absence of infection Outcome: Progressing as expected Problem: Pain Goal: Control of pain at or below patient's documented comfort goal Outcome: Progressing as expected Goal: Reduction in pain sensation Outcome: Progressing as expected Problem: Skin integrity Impaired (Risk or Actual) Goal: Wound healing Outcome: Progressing as expected Goal: Prevention of new skin breakdown Outcome: Progressing as expected Problem: Respiratory Function - Impaired Goal: Able to cough effectively Outcome: Progressing as expected Goal: Adequate oxygenation Outcome: Progressing as expected Goal: Adequate work of breathing Outcome: Progressing as expected Goal: Patent airway Outcome: Progressing as expected Maurisio Marie RN [facility] 2023-12-09 00:49:44 Problem: Falls, Risk of Goal: Absence of falls Outcome: Progressing as expected Problem: Infection Risk Goal: Absence of infection Outcome: Progressing as expected Problem: Pain Goal: Control of pain at or below patient's documented comfort goal Outcome: Progressing as expected Goal: Reduction in pain sensation Outcome: Progressing as expected Problem: Skin integrity Impaired (Risk or Actual) Goal: Wound healing Outcome: Progressing as expected Goal: Prevention of new skin breakdown Outcome: Progressing as expected Problem: Respiratory Function - Impaired Goal: Able to cough effectively Outcome: Progressing as expected Goal: Adequate oxygenation Outcome: Progressing as expected Goal: Adequate work of breathing Outcome: Progressing as expected Goal: Patent airway Outcome: Progressing as expected Peggy Greenwood RN [facility] 2023-12-07 04:39:06 Problem: Falls, Risk of Goal: Absence of falls Outcome: Progressing as expected Problem: Infection Risk Goal: Absence of infection Outcome: Progressing as expected Problem: Restraint Use Goal: Absence of restraint indications Outcome: Progressing as expected Goal: Absence of restraint-related injury Outcome: Progressing as expected Problem: Pain Goal: Control of pain at or below patient's documented comfort goal Outcome: Progressing as expected Goal: Reduction in pain sensation Outcome: Progressing as expected Problem: Skin integrity Impaired (Risk or Actual) Goal: Wound healing Outcome: Progressing as expected Goal: Prevention of new skin breakdown Outcome: Progressing as expected Problem: Respiratory Function - Impaired Goal: Able to cough effectively Outcome: Progressing as expected Goal: Adequate oxygenation Outcome: Progressing as expected Goal: Adequate work of breathing Outcome: Progressing as expected Goal: Patent airway Outcome: Progressing as expected Magui Mccray RN [facility] 2023-12-06 07:43:45 Problem: Falls, Risk of Goal: Absence of falls Outcome: Progressing as expected Problem: Infection Risk Goal: Absence of infection Outcome: Progressing as expected Problem: Restraint Use Goal: Absence of restraint indications Outcome: Progressing as expected Goal: Absence of restraint-related injury Outcome: Progressing as expected Problem: Pain Goal: Control of pain at or below patient's documented comfort goal Outcome: Progressing as expected Goal: Reduction in pain sensation Outcome: Progressing as expected Problem: Skin integrity Impaired (Risk or Actual) Goal: Wound healing Outcome: Progressing as expected Goal: Prevention of new skin breakdown Outcome: Progressing as expected Problem: Respiratory Function - Impaired Goal: Able to cough effectively Outcome: Progressing as expected Goal: Adequate oxygenation Outcome: Progressing as expected Goal: Adequate work of breathing Outcome: Progressing as expected Goal: Patent airway Outcome: Progressing as expected T Alexandria Barboza RN [facility] 2023-12-06 06:07:51 Problem: Falls, Risk of Goal: Absence of falls Outcome: Progressing as expected Problem: Infection Risk Goal: Absence of infection Outcome: Progressing as expected Problem: Restraint Use Goal: Absence of restraint indications Outcome: Progressing as expected Goal: Absence of restraint-related injury Outcome: Progressing as expected Problem: Pain Goal: Control of pain at or below patient's documented comfort goal Outcome: Progressing as expected Goal: Reduction in pain sensation Outcome: Progressing as expected Problem: Skin integrity Impaired (Risk or Actual) Goal: Wound healing Outcome: Progressing as expected Goal: Prevention of new skin breakdown Outcome: Progressing as expected Problem: Respiratory Function - Impaired Goal: Able to cough effectively Outcome: Progressing as expected Goal: Adequate oxygenation Outcome: Progressing as expected Goal: Adequate work of breathing Outcome: Progressing as expected Goal: Patent airway Outcome: Progressing as expected [facility] [employer] 2023-12-05 09:54:55 Problem: Falls, Risk of Goal: Absence of falls Outcome: Progressing as expected Problem: Infection Risk Goal: Absence of infection Outcome: Progressing as expected Problem: Restraint Use Goal: Absence of restraint indications Outcome: Progressing as expected Goal: Absence of restraint-related injury Outcome: Progressing as expected Problem: Pain Goal: Control of pain at or below patient's documented comfort goal Outcome: Progressing as expected Goal: Reduction in pain sensation Outcome: Progressing as expected Problem: Skin integrity Impaired (Risk or Actual) Goal: Wound healing Outcome: Progressing as expected Goal: Prevention of new skin breakdown Outcome: Progressing as expected Problem: Respiratory Function - Impaired Goal: Able to cough effectively Outcome: Progressing as expected Goal: Adequate oxygenation Outcome: Progressing as expected Goal: Adequate work of breathing Outcome: Progressing as expected Goal: Patent airway Outcome: Progressing as expected [facility] 2023-12-04 09:24:35 Problem: Falls, Risk of Goal: Absence of falls Outcome: Progressing as expected Problem: Infection Risk Goal: Absence of infection Outcome: Progressing as expected Problem: Restraint Use Goal: Absence of restraint indications Outcome: Progressing as expected Goal: Absence of restraint-related injury Outcome: Progressing as expected Problem: Pain Goal: Control of pain at or below patient's documented comfort goal Outcome: Progressing as expected Goal: Reduction in pain sensation Outcome: Progressing as expected Problem: Skin integrity Impaired (Risk or Actual) Goal: Wound healing Outcome: Progressing as expected Goal: Prevention of new skin breakdown Outcome: Progressing as expected Génesis Giles RN [facility] 2023-12-04 03:43:42 Addendum created 12/04/23 0343 by Stan Izquierdo MD Intraprocedure Meds edited AN-ANESTHESIOLOGY [facility] 2023-12-04 03:21:10 Patient: Zarina Grier Procedure Summary Date: 12/03/23 Room / Location: [address] [facility] Anesthesia Start: 1946 Anesthesia Stop: 09/09/24 0211 Procedures: EXPLORATORY LAPAROTOMY (Abdomen) BOWEL RESECTION (Abdomen) FECAL DISIMPACTION (Rectum) Diagnosis: Colon perforation (Colon perforation [K63.1]) Surgeons: Taylor Segundo MD Responsible Provider: Kentrell Núñez MD Anesthesia Type: General ASA Status: 4 - Emergent Anesthesia Type: General Last vitals BP Temp Pulse Resp SpO2 There were no known notable events for this encounter. Anesthesia Post Evaluation Patient location during evaluation: ICU Patient participation: complete - patient cannot participate Pain management: satisfactory to patient Airway patency: patent Cardiovascular status: acceptable and blood pressure returned to baseline Respiratory status: acceptable, ETT and ventilator Hydration status: acceptable AN-ANESTHESIOLOGY ANESTHESIOLOGIST [facility] 2023-12-04 00:20:27 Daughter at bedside updated Tiffany Monique RN [facility] 2023-12-03 21:53:09 FULL OPERATIVE NOTE Date of Surgery: 12/03/2023 Faculty physician: Dr. Segundo Resident physician: Dr. Lauri Miles Anesthesia Type: general - GETA Pre-operative diagnosis: colon perforation Post-operative diagnosis: same Procedures: -Fecal disimpaction -Exploratory laparotomy -Lysis of intra abdominal adhesions -Closure of rectal perforation -Heidi's Procedure- sigmoidectomy with end sigmoid colostomy Findings: -Fecal disimpaction- large stool ball in rectum evacuated -Ex lap- feculent peritonitis with 600 cc loose stool in abdomen in all 4 quadrants. Redundant sigmoid colon. Multiple pelvic adhesions to rind from small bowel and omentum where perforation appeared to try and wall itself off. Large, 4 cm anterior rectal tear approximately 7 cm from the anal verge. Too low to resect, so closed with running silk. Performed sigmoidectomy of redundant colon leaving a short rectal stump, sigmoid colostomy created. 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 Discussed risks benefits and patient agreeable to surgery. Narrative: The patient was taken to the operating room. A time-out was completed verifying correct patient, procedure, site, positioning, and allergies prior to beginning this procedure. General anesthesia was induced. Prior to exploration, we performed a digital rectal exam revealing a large stool ball distal in the rectum. This was removed manually. The abdomen was prepped and draped in the usual sterile fashion. An incision was made into the skin and carried down to the fascia at the midline. The fascia around the umbilicus was not present given the large ventral hernia and loss of domain, part of the hernia sac was excised. There were abdominal wall adhesions which were lysed. It was apparent that there was feculent peritonitis with multiple loculated areas containing feculent material, present in all 4 quadrants. Our initial suction removed ~600 cc of feculent material. We examined the transverse colon and splenic flexure and followed this to the descending colon. The sigmoid colon was initially mobile however it doubled back on itself and was especially adherent to the small bowel mesentery. This was lysed both sharply and bluntly. We then followed the sigmoid colon down to rectum. Posterior to the uterus there was a large loculated collection of liquid and hard stool balls collected in the rectouterine pouch. Once this was irrigated it became apparent our site of perforation was on the rectum, approximately 4 cm large and circular and anterior. Given the very distal location on the rectum, it was not feasible to insert a stapler and divide. We decided to close the perforation and divert the patient. The perforation was closed in one layer 2-0 silk in a running fashion. We were able to insert and fire the TA 60 mm green load stapler about 4 cm proximal to this. The descending colon was further mobilized by taking down the white line of toldt laterally. Once the colon was adequately mobilized, we used the ligasure to divide the mesentery until we came to a point proximally where we would be bringing out our ostomy. The abdomen was thoroughly irrigated with 8 L warm saline. The bowel was run from ligament of Treitz to terminal ileum without other areas of perforation. The stomach was examined and was normal, however couldn't palpate NGT even after down sizing to pediatric 14 Fr tube. Two 19 Fr ROSA drains were placed, one in pelvis and one in left paracolic gutter. We then brought out the stoma. We made a circular incision in the LLQ and carried it down to anterior fascia where a cruciate incision was made. The muscle was split and a transverse incision was made into the posterior layer. The bowel was pulled through. The fascia was closed with two 0 PDS starting at either end and meeting in the middle. The skin was left open with dakins wet to dry. The stoma was matured by brooking in 4 quadrants with 3-0 vicryl, then securing to the dermis all around. An appliance was placed. All surgical counts were correct at the end of the case. The patient was extubated and transported to the PACU in stable condition. Specific Postop Instructions: Intubated, sedated NGT to LIWS Daily dressing changes Ostomy care consult Continue abx Elizabeth Steiner MD General Surgery, PGY-5 Associated attestation - Taylor Segundo MD - 12/06/2023 6:41 AM CDT I was present for and supervised the entire procedure(s). I have reviewed the operative note and agree. Taylor Segundo MD, PhD Acute Care Surgery, Trauma, and Surgical Critical Care [facility] 2023-12-03 19:24:42 Name/ MRN / Age / Gender: Zarina Grier, [id number] 73 year old female BMI: Estimated body mass index is 57.02 kg/m? as calculated from the following: Height as of this encounter: 1.727 m (5' 8"). Weight as of this encounter: 170.1 kg (375 lb). Allergies: Patient has no known allergies. Last Vitals: BP Readings from Last 1 Encounters: 12/03/23 (!) 155/76 Pulse Readings from Last 1 Encounters: 12/03/23 98 SpO2 Readings from Last 1 Encounters: 12/03/23 99% Date of Surgery: 12/03/2023 Surgeon: Taylor Segundo MD Procedure: EXPLORATORY LAPAROTOMY (Abdomen) BOWEL RESECTION (Abdomen) OR Location: [facility] Anesthesia Preop Eval (physical exam) Anesthesia Preop: Chart Review and [facility] Communication: Zarina Grier is a 73 year old female history of afib, morbid obesity, constipation who presents as transfer from [facility] for altered mental status, found to have a hollow viscus perforation. Patient was recently admitted to medicine for treatment of UTI and she was discharge with an indwelling cote on 11/22. WBC at OSH 13.[address] scan showed large stool ball in rectum with free air in the abdomen. Plan for OR for exploratory laparotomy pending discussion with family PONV Risk Factors: female Anesthesia History Anesthesia History Negative per Chart Review Previous Anesthetics/Airways Cardiovascular (+) Dysrhythmias and atrial fibrillation Pulmonary Pulmonary ROS Negative per Chart Review Neuro/Musculoskeletal Neuro/Musculoskeletal ROS Negative per Chart Review GI/Hepatic Comments: Constipation CT scan showed large stool ball in rectum with free air in the abdomen Hematology (+) Anemia Renal Renal ROS Negative per Chart Review Skin Skin ROS Negative per Chart Review Endo/Other Endocrine/other ROS Negative per Chart Review Other MEDICAL IMAGING DIRECTOR Pediatric Preoperative Medication Instructions Continue taking all prescribed medications except: MATHEUS inhibitors, ARBs, diuretics, all oral diabetes medications Anticoagulant Therapy: Defer to surgeons Insulin: Take 1/2 dose the night prior to surgery. Hold on DOS. Phentermine: Alert [facility] anesthesiologist SGLT2 Inhibitors: "gliflozins" to be held for 3 days prior to elective surgeries GLP1 Agonosit: stop 7 days prior to surgery MAC Cases: Continue taking MATHEUS inhibitors and ARBs ASA Classification ASA: 4 and emergent Labs: Chemistry 12/03/2023 CBC 12/03/2023 134 (L) 103 28 (H) 137 (H) 18.25 (H) 7.7 (L) 758 (H) 4.9 21 (L) 0.96 24.4 (L) eGFR: 61.8 Date: 12/03/2023 ANC: 14.69 (H) Date: 12/03/2023 LFTs 12/03/2023 Coags AST: 49 (H) AP: 141 (H) Prot: 7.4 Ca: 9.1 PT: 23.6 (H) Date: 12/03/2023 ALT: 14 T Garcia: 0.9 Alb: 3.1 (L) PTT: 30 Date: 12/03/2023 PO4: 8.3 (H) Date: 11/20/2023 INR: 2.2 Date: 12/03/2023 Cardiac Endocrine & other pBNP: - Date: - A1C: - Date: - Trop I: 0.006 Date: 11/20/2023 POCT A1C: - Date: - CK: - Date: - TSH: 1.61 Date: 11/22/2023 CKMB: - Date: - FT4: - Date: - LDL: - Date: - Lact: 3.03 (H) Date: 12/03/2023 Procal: - Date: - Respiratory -|-|-|-|- D-dimer: - ABG Date: - Date: - Miscellaneous Type and Screen: A POSITIVE Antibody: Negative Date: 12/03/2023 POCT : - Date: - Current Medications: No outpatient medications have been marked as taking for the 12/03/23 encounter (Hospital Encounter). Previous Surgeries: Past Surgical History: Procedure Laterality Date SECTION 1985 TUBAL LIGATION Anesthesia Physical Exam General patient is obtunded Neuro/Psych Not responsive to questions or commands Dental no notable dental hx Abdominal (+) obesity Airway Mallampati score:unable to assess Neck ROM: full Mouth opening:normal Extremity Normal extremity Pulmonary pulmonary exam normal Other Cardiovascular cardiovascular exam normal Anesthesia Plan ASA Status: 4 emergent Plan discussed during pre-op evaluation: General Anesthetic plan on DOS: General Plan to include: IV induction, ETT and arterial line Anesthesia plan discussed with: parent/guardian Post-Operative Analgesia: routine analgesia & antiemetics Recovery Plan: ICU Additional comments: [facility] access hospital 2023-12-03 06:31:30 Name/ MRN / Age / Gender: Zarina Grier, [id number] 73 year old female BMI: Estimated body mass index is 57.02 kg/m? as calculated from the following: Height as of this encounter: 1.727 m (5' 8"). Weight as of this encounter: 170.1 kg (375 lb). Allergies: Patient has no known allergies. Last Vitals: BP Readings from Last 1 Encounters: 12/03/23 (!) 146/91 Pulse Readings from Last 1 Encounters: 12/03/23 94 SpO2 Readings from Last 1 Encounters: 12/03/23 97% Date of Surgery: 12/03/2023 Surgeon: Taylor Segundo MD Procedure: EXPLORATORY LAPAROTOMY (Abdomen) BOWEL RESECTION (Abdomen) OR Location: [facility] Anesthesia Preop Screen (no physical exam) Anesthesia Preop: Chart Review [facility] Communication: Zarina Grier is a 73 year old female history of afib, morbid obesity, constipation who presents as transfer from [facility] for altered mental status, found to have a hollow viscus perforation. Patient was recently admitted to medicine for treatment of UTI and she was discharge with an indwelling cote on 11/22. WBC at OSH 13.[address] scan showed large stool ball in rectum with free air in the abdomen. Plan for OR for exploratory laparotomy pending discussion with family Anesthesia History Anesthesia History Negative per Chart Review Previous Anesthetics/Airways Cardiovascular (+) Dysrhythmias and atrial fibrillation Pulmonary Pulmonary ROS Negative per Chart Review Neuro/Musculoskeletal Neuro/Musculoskeletal ROS Negative per Chart Review GI/Hepatic Comments: Constipation CT scan showed large stool ball in rectum with free air in the abdomen Hematology Hematology ROS Negative per Chart Review Renal Renal ROS Negative per Chart Review Skin Skin ROS Negative per Chart Review Endo/Other Endocrine/other ROS Negative per Chart Review Other MEDICAL IMAGING DIRECTOR Pediatric Preoperative Medication Instructions Continue taking all prescribed medications except: MATHEUS inhibitors, ARBs, diuretics, all oral diabetes medications Anticoagulant Therapy: Defer to surgeons Insulin: Take 1/2 dose the night prior to surgery. Hold on DOS. Phentermine: Alert [facility] anesthesiologist SGLT2 Inhibitors: "gliflozins" to be held for 3 days prior to elective surgeries GLP1 Agonosit: stop 7 days prior to surgery MAC Cases: Continue taking MATHEUS inhibitors and ARBs ASA Classification ASA: 4 and emergent Labs: Chemistry 12/03/2023 CBC 12/03/2023 134 (L) 101 25 (H) 135 (H) 19.38 (H) 8.2 (L) 821 (H) 4.9 19 (L) 0.99 25.9 (L) eGFR: 59.6 Date: 12/03/2023 ANC: 9.04 (H) Date: 11/23/2023 LFTs 12/03/2023 Coags AST: 27 AP: 176 (H) Prot: 7.6 Ca: 9.1 PT: 22.1 (H) Date: 12/03/2023 ALT: 13 T Garcia: 0.7 Alb: 3.3 (L) PTT: 32 Date: 12/03/2023 PO4: 8.3 (H) Date: 11/20/2023 INR: 2.0 Date: 12/03/2023 Cardiac Endocrine & other pBNP: - Date: - A1C: - Date: - Trop I: 0.006 Date: 11/20/2023 POCT A1C: - Date: - CK: - Date: - TSH: 1.61 Date: 11/22/2023 CKMB: - Date: - FT4: - Date: - LDL: - Date: - Lact: 1.53 Date: 12/03/2023 Procal: - Date: - Respiratory -|-|-|-|- D-dimer: - ABG Date: - Date: - Miscellaneous Type and Screen: A Positive Antibody: Negative Date: 11/21/2023 POCT : - Date: - Current Medications: No outpatient medications have been marked as taking for the 12/03/23 encounter (Hospital Encounter). Previous Surgeries: Past Surgical History: Procedure Laterality Date SECTION 1985 TUBAL LIGATION Physical Exam Anesthesia Plan ASA Status: 4 emergent AN-ANESTHESIOLOGY [facility] 2023-12-03 03:31:57 Report given to Chris CALLE at this time. RN's discussed POC and further recommendations for care. Clifton Marcus RN [facility] 2023-12-03 03:24:56 Waiting for gen surg to leave to transport patient T [facility] 2023-12-03 03:13:16 General surgery at bedside T [facility] 2023-12-03 02:32:50 Zarina Grier is a 73 year old female presents to ED via EMS as a general surgery referral from outside facility for perforated rectum, anal bleeding, and abdominal pain. Pt has an extensive PMH of AFIB, obesity, non complaint with medications. Outside facility reports that pt arrived covered in feces , pt appears bed bound, reports pain 10/10. Pt was worked up for sepsis with reports of elevated lactic, arrived with fluids infusing, arrived with documents from outside facility Pt to be prepared for surgery at this time. Rafael Juarez RN [facility] 2023-12-03 02:28:50 Gen surgery at bedside for assessment, pt placed on monitor Plan of care is OR T [facility] 2023-12-03 02:15:02 Zarina Grier is a 73 year old female who presents to see the general surgery team. Pt GCS 15, gen surgery paged at [phone], and are aware of pt's arrival. Raj Pastor RN [facility] 2023-11-28 10:10:51 Paged that patient requested refill on Kegley. Refilled for 7 days but patient should follow-up in clinic for further refills. Ivan Rogers MD PGY-3, Internal Medicine T [facility] 2023-11-24 11:29:55 TRANSITIONAL CARE MANAGEMENT ASSESSMENT 11/24/2023 Zarina Grier [id number] Zarina Grier is a 73 year old /White female was admitted on 11/20/23 to [facility], [address] She was discharged on 11/23/23 with discharge disposition of HR- Routine Discharge. Admitting Physician: Stefanie Johnson Discharge Diagnosis: NAOMY 2/2 obstructive uropathy Citrobacter UTI No linked episodes TCM [id number]-face outreach documentation: Discharge Assessment Chart Assessed: 11/24/23 [...] use the medical supplies/equipment?: Yes DME Location: [place] [address] () [phone] (F) [phone] DME Other: DME List: [facility] Lift Follow Up Appointment Has a follow [...] Yes Discharge Location: Home Health location: Other ([facility]) Other Home Health location: [facility] Survey - Recognition Is there anything you would like to share about your recent hospitalization, or anyone you would like to recognize?: No Do you have any suggestions for improvement?: No Do you have any other questions or concerns at this time?: No Nelson RN [facility] 2023-11-24 11:23:51 Dtr requesting a call to epi as reports she's currently working. [facility] 2023-11-23 14:44:31 Problem: Procedure Routine Goal: [...] Valerie Sood RN Outcome: Progressing as expected Sood RN [facility] 2023-11-23 12:15:20 Problem: Procedure Routine Goal: [...] Absence of falls Outcome: Progressing as expected [facility] hospital 2023-11-22 10:27:00 Problem: Procedure Routine Goal: Absence [...] of cognitive ability Outcome: Progressing as expected T Stephanie Altamirano RN [facility] 2023-11-22 01:06:55 Problem: Procedure Routine Goal: [...] of cognitive ability Outcome: Progressing as expected [facility] Pablo Burroughs RN [facility] 2023-11-21 10:42:33 Problem: Procedure Routine Goal: [...] of cognitive ability Outcome: Progressing as expected [facility] hospital 2023-11-20 20:29:34 Problem: Procedure Routine Goal: Absence of post-procedure complications Outcome: Progressing as expected Goal: Knowledge of procedure Outcome: Progressing as expected Problem: Infection Risk Goal: Absence of infection Outcome: Progressing as expected Problem: Falls, Risk of Goal: Absence of falls Outcome: Progressing as expected Problem: Activity Intolerance Goal: Improved activity tolerance Outcome: Progressing as expected Thomas Andre RN [facility] 2023-11-20 19:00:19 Nurse Report Report given to LUC Matthews. Chief complaint, assessment findings, and orders reviewed. Plan of care discussed with both nurses. Patient/family members verbalized understanding for admission and transfer. Justina Jordan RN Justina Jordan RN [facility] 2023-11-20 18:49:30 Patient admitted to [facility] for diagnosis of hyperkalemia, obstructive uropathy, NAOMY, anemia, constipation, atrial fibrillation, and abdominal pain. Patient agrees to admission, discussed plan of care with patient and family. Patient is awake, alert, oriented, resp reg unlabored, color appropriate for race, PIV intact with sodium bicarb No adverse reaction to medications administered while in ED Belongings with patient to unit. T [facility] 2023-11-20 18:24:39 Report given to Terrell with [facility]. Requested to recheck BGL en route. T [facility] 2023-11-20 11:09:54 Pt to ED accompanied by daughter CO delusions, confusion, abd pain, and malodorous urine for 2 weeks. Denies fever. Denies dysuria. Critical access hospital 2023-11-20 11:02:00 [facility] Emergency Department Note Patient Name: Zarina Grier Date of : 1950 73 year old female Treatment Room: Room/bed info not found Primary Care Physician: No primary care provider on file. 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 METABOLIC PANEL (02595) - Abnormal NA 131 (*) 135 - [...] CONTRAST Cbc with Diff Comp. Metabolic Panel (57400) Troponin I Lipase Urinalysis Lactic Acid Whole [...] Eval: ED Events Date/Time Event User Comments 11/20/23 1108 Medical Screening Begins PABLO CHINCHILLA MD -- 11/20/23 1108 First Provider Evaluation PABLO CHINCHILLA MD -- [...] micromoles/L) AdmissionCare documentation entered by: Pablo Chinchilla [facility], 28th edition, Copyright ? 2023 [facility] [employer] [facility] All Rights Reserved. [id number]:34-05:00 ED COURSE Diagnosis/Impression as of 11/20/23 1701 Abdominal pain, unspecified abdominal location Hyperkalemia Obstructive uropathy NAOMY (acute kidney injury) Constipation, unspecified constipation type Anemia, unspecified type Atrial fibrillation with controlled ventricular rate Procedures: Procedures MDM: Medical Decision Making DDx incl UTI, sepsis, SBO, Colitis, appy, incarcerated hernia, PNA, ACS, dysrhythmia, et al Pt to be transferred d/t no beds at [facility] D/w pt and family to inform of going to [place] Amount and/or Complexity of Data Reviewed Labs: ordered. Radiology: ordered. Discussion of management or test interpretation with external provider(s): D/w [place] [facility] Admitting --> pt accepted for transfer Risk OTC drugs. Prescription drug management. Parenteral controlled substances. Flowsheet Documentation: Disposition/Condition: ED Disposition ED Disposition Transfer - [facility] to IP/Obs Condition -- Comment -- Discharge Medications: Patient's Medications No medications on file Follow-up: Electronically signed by: Pablo Chinchilla MD 11/20/231700 [facility] EMERGENCY PHYSICIAN STAFF [facility] 2023-11-20 11:02:00 AdmissionCare Guideline: Renal Failure [...] micromoles/L) AdmissionCare documentation entered by: Pablo Chinchilla [facility], 28th edition, Copyright ? 2023 [facility] [employer] [facility] All Rights Reserved. [id number]:34-05:00 [facility]
[2024-01-02] MEDS ORDERED: NA CHLORIDE 0.9% 250 ML ONE (15:21)
[2024-01-02] MEDS ORDERED: VANCOMYCIN 1 GM/VIAL ONE (15:21)
[2024-01-02 17:44] LABS: Absolute Basophils 0.1 K/uL (0-0.5); Absolute Eosinophils 0.2 K/uL (0-0.5); Absolute Lymphocytes (CBC) 4.3 K/uL (0.7-4.9); Absolute Monocytes 0.7 K/uL (0.1-1.3); Absolute Neutrophil 3.4 K/uL (1.8-8.0); Eosinophils % 1.8 % (0-4.4); Hematocrit 29.2 % (36.0-45.0); Hemoglobin 9.2 g/dL (12.0-15.0); Lymphocytes % 50.3 % (15.3-44.8); MCH 27.5 pg (27.0-35.0); MCHC 31.5 g/dL (32.0-36.0); MCV 87.3 fL (80-100); Monocytes % 7.7 % (3.3-12.3); Neutrophils % 39.2 % (41.7-73.7); Nucleated Red Blood Cells % 0.1 % (0-0); Platelets 242 thou/uL (152-406); RBC Red Blood Cell Count 3.34 M/uL (3.86-4.86); Red Cell Distribution Width 32.1 % (12.1-15.2)
[2024-01-02 17:54] LABS: AST/SGOT 17 U/L (15-37); Albumin 1.4 g/dL (3.4-5.0); Albumin/Globulin Ratio 0.3 (1.1-1.8); Alkaline Phosphatase 118 U/L (45-117); Anion Gap 6.6 mEq/L (5.0-15.0); BUN Blood Urea Nitrogen 16 mg/dL (7-18); Bicarbonate 26 mEq/L (21-32); Bilirubin Total 0.3 mg/dL (0.2-1.0); Globulin 4.6 g/dL (2.3-3.5); Glomerular Filtration Rate 100 ml/min (=/>90); Glucose Level 94 mg/dL (74-106); Potassium 3.6 mEq/L (3.5-5.1); Sodium Level 139 mEq/L (136-145)
[2024-01-02 17:55] LABS: ALT/SGPT < 14 U/L (13-56)
[2024-01-02 18:18] LABS: White Blood Cell Scan OK (OK)
[2024-01-02 18:19] LABS: Anisocytosis 3+; Blood Morphology Comment NOTED (NOT SEEN); Platelet Estimate ADEQ
--- NOTE | 2024-01-02 18:20 | EDPHYS ---
Physician Documentation [facility] Name: Gwendolyn Mercado Age: 73 yrs Sex: Female : 1950 Arrival Date: 01/02/2024 Time: 14:40 Bed 19 Private MD: ED Physician John Ramirez HPI: 01/01 15:29 This 73 yrs old Female presents to ER via EMS with complaints of Wound Check. sp3 15:29 73-year-old female with history of atrial fibrillation, hypertension and recent sp3 extensive bowel surgery due to rectal perforation and colovesicular fistula transferred last month to [facility] now presents again for wound evaluation. Patient has open wounds currently being taken care of at home by visiting nurse. Today visiting nurse saw that the wound had not been changed for several days and wanted patient to get evaluated for possible early infection versus prophylactic antibiotics. Patient denies any fever, increased pain, bleeding, drainage, or any other signs or symptoms on ROS at this time. Patient arrives via EMS. Vital signs stable and normal for them.. Historical: - Allergies: 14:54 No Known Allergies; db - Home Meds: 14:55 Eliquis oral [Active]; Tramadol Oral [Active]; Metoprolol Tartrate Oral [Active]; db quetiapine oral [Active]; Sucralfate Oral [Active]; - PMHx: 14:54 Atrial fibrillation; bowel incontinence; Hypertensive disorder; prolapsed urethra; db - PSHx: 14:54 section; tubal ligation; db - Immunization history:: Adult Immunizations unknown. - Infectious Disease History:: Denies. - Social history:: Smoking status: Patient denies any tobacco usage or history of. ROS: 15:30 Constitutional: Negative for fever, chills, and weight loss, Eyes: Negative for injury, sp3 pain, redness, and discharge, ENT: Negative for injury, pain, and discharge, Neck: Negative for injury, pain, and swelling, Cardiovascular: Negative for chest pain, palpitations, and edema, Respiratory: Negative for shortness of breath, cough, wheezing, and pleuritic chest pain, Abdomen/GI: Negative for abdominal pain, nausea, vomiting, diarrhea, and constipation, Back: Negative for injury and pain, MS/Extremity: Negative for injury and deformity, Neuro: Negative for headache, weakness, numbness, tingling, and seizure, Psych: Negative for depression, anxiety, suicide ideation, homicidal ideation, and hallucinations, Allergy/Immunology: Negative for hives, rash, and allergies, 15:30 All other systems are negative, Exam: 15:37 Constitutional: This is a well developed, well nourished patient who is awake, alert, sp3 and in no acute distress. Head/Face: Normocephalic, atraumatic. Eyes: Pupils equal round and reactive to light, extra-ocular motions intact. Lids and lashes normal. Conjunctiva and sclera are non-icteric and not injected. Cornea within normal limits. Periorbital areas with no swelling, redness, or edema. ENT: Nares patent. No nasal discharge, no septal abnormalities noted. External auditory canals are clear. Oropharynx with no redness, swelling, or masses, exudates, or evidence of obstruction, uvula midline. Mucous membranes moist. Neck: Trachea midline, no thyromegaly or masses palpated, and no cervical lymphadenopathy. Supple, full range of motion without nuchal rigidity, or vertebral point tenderness. No Meningismus. Chest/axilla: Normal chest wall appearance and motion. Nontender with no deformity. No lesions are appreciated. Cardiovascular: Regular rate and rhythm with a normal S1 and S2. No gallops, murmurs, or rubs. Normal PMI, no JVD. No pulse deficits. Respiratory: Lungs have equal breath sounds bilaterally, clear to auscultation and percussion. No rales, rhonchi or wheezes noted. No increased work of breathing, no retractions or nasal flaring. Abdomen/GI: Soft, non-tender, with normal bowel sounds. No distension or tympany. No guarding or rebound. No evidence of tenderness throughout. Back: No spinal tenderness. No costovertebral tenderness. Full range of motion. MS/ Extremity: Pulses equal, no cyanosis. Neurovascular intact. Full, normal range of motion. Neuro: Awake and alert, GCS 15, oriented to person, place, time, and situation. Cranial nerves II-XII grossly intact. Motor strength 5/5 in all extremities. Sensory grossly intact. Cerebellar exam normal. Normal gait. Psych: Awake, alert, with orientation to person, place and time. Behavior, mood, and affect are within normal limits. 15:37 Skin: Left abdomen with open wounds with clear granulation tissue and no signs of necrosis, drainage, infection or erythema.. Vital Signs: 12:54 BP 143 / 56; Pulse 79; Resp 18; Temp 98.7; Pulse Ox 98% ; Weight 181.44 kg; db 15:37 BP 116 / 78; Pulse 90; Resp 20; MAP 89 mmHg; tm6 19:04 BP 123 / 66; Pulse 96; Resp 23; Temp 98.7; Pulse Ox 96% on R/A; MAP 83 mmHg; Pain 4/10; tm6 19:04 Pain Scale: Adult tm6 MDM: 14:59 Patient medically screened. sp3 15:43 Data reviewed: vital signs, nurses notes, lab test result(s). ED course: 73-year-old sp3 female with open wounds sent by home nurse for evaluation for possible infection. Clinically I am not seeing any signs of overt infection. We will give 1 dose of IV antibiotics and obtain blood cultures and routine labs. If workup negative we will send patient home on oral meds and follow-up with PCP.. 17:52 Transition of care: Care assumed from Corby Beck MD. ms3 18:21 Differential diagnosis: cellulitis, Chronic abdominal wound. I considered the following ms3 discharge prescriptions or medication management in the emergency department Medications were administered in the Emergency Department. See MAR. Care significantly affected by the following chronic conditions: Hypertension. Counseling: I had a detailed discussion with the patient and/or guardian regarding the historical points, exam findings, and any diagnostic results supporting the discharge/admit diagnosis, lab results, the need for outpatient follow up, to return to the emergency department if symptoms worsen or persist or if there are any questions or concerns that arise at home. Special discussion: I discussed with the patient/guardian in detail that at this point there is no indication for admission to the hospital. It is understood, however, that if the symptoms persist or worsen the patient needs to return immediately for re-evaluation. ED course: Discussed labs with patient. Patient is alert and oriented x 4, no apparent distress, nontoxic-appearing, speaking full sentences, tolerating p.o. in the emergency department. Patient is agreeable with outpatient follow-up. Discussed necessity of follow-up with primary care physician in 2 to 3 days. All questions were answered. Return precautions discussed include worsening symptoms, or any other concerns.. 01/01 15:09 Order name: Blood Culture Adult (2) sp3 01/01 15:09 Order name: CBC with Diff; Complete Time: 18:23 sp3 01/01 15:09 Order name: CMP; Complete Time: 18:12 sp3 01/01 15:09 Order name: Lactate w/ 2H reflex if indic.; Complete Time: 18:12 sp3 01/01 17:47 Order name: CBC Smear Scan; Complete Time: 18:23 EDMS 01/01 15:09 Order name: Cardiac monitoring; Complete Time: 15:40 sp3 01/01 15:09 Order name: EKG - Nurse/Tech sp3 01/01 15:09 Order name: IV Saline Lock - Large Bore; Complete Time: 17:34 sp3 01/01 15:09 Order name: Labs collected and sent; Complete Time: 17:34 sp3 01/01 15:09 Order name: O2 Sat Monitoring; Complete Time: 15:41 sp3 01/01 15:09 Order name: Vital Signs; Complete Time: 15:41 sp3 Administered Medications: 17:45 Drug: vancoMYCIN IVPB 1 grams IVPB once over 2 hrs Route: IVPB; Infused Over: 2 hrs; tm6 Site: left hand; 19:00 Follow up: Response: No adverse reaction; IV Status: Completed infusion; IV Intake: tm6 250ml 18:43 Drug: traMADol PO 50 mg PO once Route: PO; tm6 19:00 Follow up: Response: No adverse reaction tm6 Disposition Summary: 01/02/24 18:20 Discharge Ordered Notes: Location: Home ms3 Condition: Stable ms3 Diagnosis - Unspecified open wound of abdominal wall, unspecified quadrant without penetration ms3 into peritoneal cavity, initial encounter Followup: ms3 - With: Private Physician - When: 2 - 3 days - Reason: Recheck today's complaints Discharge Instructions: - Discharge Summary Sheet ms3 - Wound Care, Adult ms3 Forms: - Medication Reconciliation Form ms3 - Antibiotic Education ms3 - Prescription Opioid Use ms3 - Patient Portal Instructions ms3 - Leadership Thank You Letter ms3 Prescriptions: - Bactrim DS 800-160 mg Oral Tablet - take 1 tablet ORAL route every 12 hours for 7 days; 14 tablet; Refills: 0, ms3 Product Selection Permitted Signatures: Dispatcher [employer] EDJohn Finch DO DO ms3 Corby Beck MD MD sp3 Rukhsana Estes, RN RN db Alma Wade RN RN tm6
--- NOTE | 2024-01-02 18:20 | ER ---
Nurse's Notes [facility] Name: Gwendolyn Mercado Age: 73 yrs Sex: Female : 1950 Arrival Date: 01/02/2024 Time: 14:40 Bed 19 Private MD: Diagnosis: Unspecified open wound of abdominal wall, unspecified quadrant without penetration into peritoneal cavity, initial encounter Presentation: 01/01 12:54 Chief complaint: EMS states: INFECTION IN SURGICAL SITE TO LEFT LOWER ABD AREA. HAS NOT db CHANGED DRESSING SINCE MONDAY. PATIENT HOME ON MONDAY FROM THE HOSPITAL. PT SMELLS OF URINE AND PER EMS HAS BEEN SITTING IN A RECLINER X 5 DAYS AT HOME. PT HAS LEFT COLOSTOMY. PT IS INCONTINENT AND UNABLE TO AMBULATE. Coronavirus screen: Client denies travel out of the [place] in the last 14 days. At this time, the client does not indicate any symptoms associated with coronavirus-19. Ebola Screen: Patient negative for fever greater than or equal to 101.5 degrees Fahrenheit, and additional compatible Ebola Virus Disease symptoms Patient denies exposure to infectious person. Patient denies travel to an Ebola-affected area in the 21 days before illness onset. No symptoms or risks identified at this time. Initial Sepsis Screen: Does the patient meet any 2 criteria? No. Patient's initial sepsis screen is negative. Does the patient have a suspected source of infection? No. Patient's initial sepsis screen is negative. Risk Assessment: Do you want to hurt yourself or someone else? Patient reports no desire to harm self or others. Onset of symptoms was January 02, 2024. 12:54 Method Of Arrival: EMS: [facility] db 12:54 Acuity: [place] 3 db Triage Assessment: 12:54 Pain: Complains of pain in abdomen. Neuro: Level of Consciousness is awake, alert, db obeys commands, Oriented to person, place, time, situation. Derm: Wound noted LEFT ABDOMEN. 14:54 General: Appears in no apparent distress. uncomfortable, obese, Behavior is agitated. db Historical: - Allergies: 14:54 No Known Allergies; db - Home Meds: 14:55 Eliquis oral [Active]; Tramadol Oral [Active]; Metoprolol Tartrate Oral [Active]; db quetiapine oral [Active]; Sucralfate Oral [Active]; - PMHx: 14:54 Atrial fibrillation; bowel incontinence; Hypertensive disorder; prolapsed urethra; db - PSHx: 14:54 section; tubal ligation; db - Immunization history:: Adult Immunizations unknown. - Infectious Disease History:: Denies. - Social history:: Smoking status: Patient denies any tobacco usage or history of. Screenin:55 [facility] ED Fall Risk Assessment (Adult) History of falling in the last 3 months, db including since admission No falls in past 3 months (0 pts) Confusion or Disorientation No (0 pts) Intoxicated or Sedated No (0 pts) Impaired Gait Yes (1 pt) Mobility Assist Device Used No (0 pt) Altered Elimination Yes (1 pt) Score/Fall Risk Level 0 - 2 = Low Risk Oriented to surroundings, Maintained a safe environment. Abuse screen: Denies threats or abuse. Denies injuries from another. Nutritional screening: No deficits noted. Tuberculosis screening: No symptoms or risk factors identified. Assessment: 14:54 Reassessment: PATIENT REFUSED IV ACCESS. STATES "NO YOU'RE NOT GOING TO STICK ME". db 15:39 Reassessment: patient stated "get me a blanket." Nurse provided blanket and covered tm6 patient. Patient said "get those covers off my feet!" Nurse removed blankets off of feet. Patient continued to say blankets were on her feet. 16:25 Reassessment: patient allowed engineering laboratory technician to try to obtain an IV. Tech was able to place a tm6 24g in her left hand. IV is well placed, can flush, but is not able to draw blood. Patient stated she would not allow us to attempt to get blood work again. 16:30 Reassessment: RN called for phlebotomy. tm6 16:40 Reassessment: RN called again for phlebotomy, no answer. tm6 16:50 Reassessment: RN called for phlebotomy, no answer. tm6 17:05 Reassessment: phlebotomy at bedside. tm6 19:05 Reassessment: Patient and/or family updated on plan of care and expected duration. Pain tm6 level reassessed. Patient is alert, oriented x 3, equal unlabored respirations, skin warm/dry/pink. Vital Signs: 12:54 BP 143 / 56; Pulse 79; Resp 18; Temp 98.7; Pulse Ox 98% ; Weight 181.44 kg; db 15:37 BP 116 / 78; Pulse 90; Resp 20; MAP 89 mmHg; tm6 19:04 BP 123 / 66; Pulse 96; Resp 23; Temp 98.7; Pulse Ox 96% on R/A; MAP 83 mmHg; Pain 4/10; tm6 19:04 Pain Scale: Adult tm6 ED Course: 14:53 Patient arrived in ED. db 14:54 Corby Beck MD is Attending Physician. sp3 15:02 Triage completed. db 15:08 Arm band placed on Patient placed in an exam room. db 15:17 Rukhsana Estes, RN is Primary Nurse. db 15:30 Patient has correct armband on for positive identification. Bed in low position. Call tm6 light in reach. Side rails up X2. Client placed on continuous cardiac and pulse oximetry monitoring. NIBP monitoring applied. wet process miller head assistant on. Pulse ox on. NIBP on. Warm blanket given. Pillow given. 16:21 CM entered room, patient stated " Lift my foot.", and "Put a pillow under my foot" CM ane and nurse helped reposition patient's foot, and patient stated the reposition did not help. Patient refused to answer any questions and asked if CM could find her . CM searched ER lobby and could not find . Hospital volunteer told MAVIS left the ED and left his phone at registration. 16:25 Inserted saline lock: 24 gauge in left hand, using aseptic technique. Flushed with 10 tm6 mL NS. 17:05 MAVIS spoke to patient's Khanh Mercado at the bedside in the ED exam room. terell Cassidy states "She is a difficult person" and he explains that he is having difficulty caring for her at home. He goes on to explain that he himself has numerous health problems and has been unable to follow up with his ward clerk. He states that Mrs. Mercado has HH through [facility] and that her Nurse was concerned about her wounds and referred them to the ER. She recommended that the patient be evaluated for "inpatient rehab". MAVIS provided patient education on post acute care options based on physician assessment. Khanh verbalized understanding. MAVIS obtained note that Khanh provided to primary Nurse with the name of the nurse LUC Matute and phone number [phone]. 17:31 CM reached out to LUC Herring at [facility] at [phone] and left message. Cm reached ane out to [facility] after hours at [phone] and left message .1757 CM received call from LUC Ramey [facility] after hours triage nurse and was informed does not receive services from [facility]. The nurse was conducting initial admission assessment and was not admitted to [facility]. 1804 CM i formed that patient does not have HH. 1810 CM called Mr. Mercado via telephone at [phone] and reiterated HH options and the need to obtain a PCP. verbalized understanding. 17:52 Attending Physician role handed off by Corby Beck MD ms3 17:52 John Ramirez DO is Attending Physician. ms3 19:05 No provider procedures requiring assistance completed. IV discontinued, intact, tm6 bleeding controlled, No redness/swelling at site. Pressure dressing applied. 19:06 Provided Education on: use of antibiotics. tm6 Administered Medications: 17:45 Drug: vancoMYCIN IVPB 1 grams IVPB once over 2 hrs Route: IVPB; Infused Over: 2 hrs; tm6 Site: left hand; 19:00 Follow up: Response: No adverse reaction; IV Status: Completed infusion; IV Intake: tm6 250ml 18:43 Drug: traMADol PO 50 mg PO once Route: PO; tm6 19:00 Follow up: Response: No adverse reaction tm6 Medication: 14:55 VIS not applicable for this client. db Intake: 19:00 IV: 250ml; Total: 250ml. tm6 Outcome: 18:20 Discharge ordered by . ms3 19:06 Discharged to home via ambulance, EMS tm6 19:06 Condition: stable 19:06 Discharge instructions given to patient, family, Instructed on discharge instructions, follow up and referral plans. medication usage, Demonstrated understanding of instructions, follow-up care, medications, Prescriptions given X 1, 19:07 Patient left the ED. tm6 Signatures: John Ramirez DO DO ms3 Corby Beck MD MD sp3 Rukhsana Estes RN RN Alma Bellamy RN RN tm6 Cuca Gonzalez RN RN ane
[2024-01-02] MEDS ORDERED: TRAMADOL HCL 50 MG TAB ONE (18:41)
[2024-01-02 19:27] VITALS: BP 123/66; TEMP 98.7; O2SAT 96
== END 2024-01-02 19:07 | disposition home or self-care (01) ==
LOC: ER 14:40
DX: S31.101A Unspecified open wound of abdominal wall, left upper quadrant without penetration into peritoneal cavity, initial encounter (principal); Z98.890 Other specified postprocedural states; I10 Essential (primary) hypertension; I48.91 Unspecified atrial fibrillation; Z79.01 Long term (current) use of anticoagulants
CPT/HCPCS: 96365; 87040; 85025; 36415; 83605; 80053; 99285; J7050

== ENCOUNTER 2024-01-06 11:43 | Emergency (ER) | payer OTHER ==
--- OUTSIDE RECORDS SUMMARY | 2024-01-06 11:52 | XMS REPORT | Continuity of Care Document ---
Author Name Unknown Address [address] [facility] [address] [place] [address] [facility] Address [address] [facility] 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 Role Phone Pcp, Patient Does Not Have A Primary Care Physic brant Raymond CALLE, Cinthya Anthony Attending Clinician Ivana Saravia MD, Jr Attending Clinician [phone] Gopi Alves MD Attending Clinician [phone] Wilton BROOKS, Kentrell Attending Clinician [phone] Bashir Carvalho MD Attending Clinician [phone] Sanya BROOKS, Taylor Attending Clinician [phone] Jeb BROOKS, Lopez Arcos Attending Clinician [phone] Ivan Rogers MD Attending Clinician Daisy Nelson RN Attending Clinician Unavailable ALEX SMITH Attending Clinician UnavailALEX Jolly Attending Clinician Pablo Richardson MD Attending Clinician [phone] Stefanie Johnson MD Attending Clinician [phone] Alex Smith MD Attending Clinician [phone] Manjit BROOKS, Jr Admitting Clinician [phone] STEFANIE JOHNSON Admitting Clinician Stefanie Gonzales MD Admitting Clinician [phone] Payers Payer Name Policy Type Policy Number Effective Date Expirati on Date Source Problems Condition Name Condition Details Condition Category Status Onset Date Resolution Date Last Treatment Date Treating Clinician Comments Source Colon perforatio n Colon perforatio n Disease Active 12-02 00:00: 00 [facility] Abdominal pain, unspecifie d abdominal location Abdominal pain, unspecifie d abdominal location Disease Active 11-19 00:00: 00 [facility] Allergies, Adverse Reactions, Alerts Allergy Name Allergy Type Status Severity Reaction(s) Onset Date Inactive Date Treating Clinician Comments Source NO KNOWN ALLERGIE S Drug Class Active [facility] Social History Social Habit Start Date Stop Date Quantity Comments Source History of tobacco use Cigarette Smoker [facility] Sexual orientation [facility] History of Social function 2023-12-04 00:00:00 2023-12-04 00:00:00 [facility] Cigarettes smoked current (pack per day) - Reported 2023-11-22 00:00:00 2023-11-22 00:00:00 [facility] Cigarette pack-years 2023-11-22 00:00:00 2023-11-22 00:00:00 [facility] Tobacco use and exposure 2023-11-22 00:00:00 2023-11-22 00:00:00 Smokeless tobacco non-user [facility] Sex assigned at 1950 00:00:00 1950 00:00:00 [facility] Smoking Status Start Date Stop Date Source Ex-smoker 2023-11-22 00:00:00 2023-11-22 00:00:00 [facility] Medications Ordered Medication Name Filled Medication Name Start Date Stop Date Current Medication? Ordering Clinician Indication Dosage Frequency Signature (SIG) Comments Components Source apixaban 5 mg tablet 2023-03 00:00: 00 03-02 05:59 :00 Yes 5mg Take 1 tablet by mouth in the morning and 1 tablet in the evening. Do all this for 60 days. Indication s: non valvular a fib [facility] docusate 100 mg capsule 2023-03 0 00:00: 01-29 05:59 :00 Yes [id number] 100mg Take 1 capsule by mouth in the morning for 30 days. [facility] acetaminoph en 500 mg tablet 2023-03 0-04 00:00: 00 Yes [id number] 1000mg Take 2 tablets by mouth every 8 (eight) hours. [facility] traMADoL 50 mg tablet 2023-03 0- 00:00: 00 Yes [id number] 50mg Take 1 tablet by mouth every 6 (six) hours as needed for Pain (scale 7-10) for up to 15 doses. Indication s: acute pain [facility] metoprolol tartrate 25 mg tablet 2023-03 0 00:00: 00 02-27 05:59 :00 Yes [id number] 25mg Take 1 tablet by mouth in the morning and 1 tablet in the evening. Do all this for 60 days. [facility] methocarbam oL 1,000 mg Tab 2023-03 0 00:00: 01-28 05:59 :00 Yes [id number] 1000mg Take 1,000 mg by mouth 3 (three) times daily as needed for Pain (scale 1-3) for up to 30 days. [facility] QUEtiapine 25 mg tablet 2023-03 0- 00:00: 00 01-28 05:59 :00 Yes [id number] 25mg Take 1 tablet by mouth at bedtime for 30 days. [facility] sodium hypochlorit e 0.25% solution 2023-03 0- 00:00: 00 01-28 05:59 :00 Yes [id number] Apply to area(s) every morning for 30 days. [facility] sucralfate 1 gram tablet 2023-03 0-04 00:00: 00 01-28 05:59 :00 Yes [id number] 1g Take 1 tablet by mouth before meals and at bedtime for 30 days. [facility] sodium chloride 0.65 % nasal spray 2023-03 0-04 00:00: 00 01-28 05:59 :00 Yes [id number] 1{spray } Use 1 Sparks in each nostril in the morning and 1 Sparks in the evening. Do all this for 30 days. [facility] apixaban 5 mg tablet 2023-03 0-04 00:00: 00 12-31 04:59 :00 Yes 10mg Take 2 tablets by mouth in the morning and 2 tablets in the evening. Do all this for 2 days. Indication s: non valvular a fib [facility] polyethylen e glycol 3350 powder 17 g 2023-03 0-03 14:00: 00 Yes 17g 17 g, Oral, DAILY, First dose (after last modificati on) on Mon12/28/23 at 0900, Until Discontinu ed, Routine [facility] docusate (COLACE) capsule 100 mg 2023-03 0 14:00: 00 Yes 100mg 100 mg, Oral, DAILY, First dose on Mon12/26/23 at 0900, Until Discontinu ed, Routine [facility] apixaban (ELIQUIS) tablet 10 mg 12-24 01:00: [...] ar Atrial Fibrillati on [Order 2 End] [facility] sodium chloride (OCEAN MIST NASAL) 0.65 % nasal spray 1 Sparks 12-22 01:00: 00 01-05 00:59 :00 Yes 1{spray } 1 Sparks, Nasal, BID, 28 doses, First dose (after last reorder) on Mon12/22/23 at 1999, Last dose on Mon01/05/24 at 0800, Routine [facility] fluticasone propionate 50 mcg/actuati on nasal spray 1 Sparks 12-22 01:00: 00 01-05 00:59 :00 Yes 1{spray } 1 Sparks, Nasal, BID, 28 doses, First dose (after last reorder) on Mon12/22/23 at 2000, Last dose on Mon01/05/24 at 0800, Routine [facility] sodium hypochlorit e 0.5% (DAKINS) solution 20 mL 12-21 21:00: 00 12-25 13:26 :37 No 20mL 20 mL, Topical, QID, First dose on Mon12/22/23 at 1600, Until Discontinu ed, Routine [facility] iopamidol (ISOVUE 370-500 mL) injection 120 mL 12-21 18:45: 00 12-21 18:45 :00 No [id number] 120mL 120 mL, Intravenou s, ONCE, 1 dose, On Mon12/22/23 at 1345, Routine [facility] potassium chloride in water (KCL) 20 mEq/100 mL IV infusion 20 mEq 12-19 21:00: 00 12-20 03:00 :00 No 20meq 20 mEq, IV Piggyback, at 50 mL/hr Administer over 2 Hours, Q2H, 2 doses, First dose on Mon12/20/23 at 1600, Last dose on Mon12/20/23 at 1800, Routine [facility] guaiFENesin 100 mg/5 mL solution 100 mg 12-19 05:07: 11 Yes 100mg 100 mg, Oral, Q8HPRN, Starting on Mon12/20/23 at 0007, Until Discontinu ed, Routine, Cough [facility] magnesium sulfate in water 2 gram/50 mL (4 %) infusion 2 g 12-17 13:15: 00 12-17 16:13 :00 No 2g 2 g, IV Piggyback, Administer over 60 Minutes, ONCE, 1 dose, On Mon12/18/23 at 0815, Routine [facility] piperacilli n-tazobacta m (ZOSYN) 3.375 g in [...] Site: Abdominal, Duration of Therapy: 7 days [facility] magnesium oxide (MAG-OX 400) 40 mg/mL oral suspension 400 mg 12-16 14:00: 00 12-23 16:21 :07 No 400mg 400 mg, Oral, DAILY, First dose on Mon12/17/23 at 0900, Until Discontinu ed, Routine [facility] enoxaparin (LOVENOX) injection 120 mg 12-16 01:00: 00 12-23 16:09 :20 No .7mg/kg 120 mg (rounded from 119.07 mg = 0.7 mg/kg ?170.1 kg), Subcutaneo us, Q12H, First dose on Mon12/16/23 at 2000, Until Discontinu ed, Routine [facility] NaCl 0.9% (NS) injection 10 mL 12-15 18:05: 16 Yes 10mL 10 mL, Slow IV Push, PRN, Starting on Mon12/16/23 at 1305, Until Discontinu ed, Routine, line maintenanc e [facility] lidocaine 1% (PF) (XYLOCAINE) injection 5 mL 12-15 18:05: 15 Yes 5mL 5 mL, Subcutaneo us, PRN, 1 dose, Starting on Mon12/16/23 at 1305, Until Discontinu ed, Routine, Local anesthesia [facility] haloperidol lactate (HALDOL) injection 5 mg 12-14 22:54: 22 Yes 5mg 5 mg, Slow IV Push, Q6HPRN, Starting on Mon12/15/23 at 1754, Until Discontinu ed, Routine, prior to dressing changes [facility] magnesium sulfate in water 2 gram/50 mL (4 %) infusion 2 g 12-14 13:15: 00 12-14 20:45 :00 No 2g 2 g, IV Piggyback, Administer over 60 Minutes, ONCE, 1 dose, On Mon12/15/23 at 0815, Routine [facility] potassium chloride in water (KCL) 20 mEq/100 mL RTU IVPB 20 mEq 12-14 03:45: 00 12-14 07:44 :00 No 20meq 20 mEq, IV Piggyback, at 50 mL/hr Administer over 2 Hours, Q2H ES, 2 doses, First dose on Mon12/14/23 at 2245, Last dose on Mon12/15/23 at 0045, DIMAS [facility] loratadine (CLARITIN) tablet 10 mg 12-14 03:00: 00 12-21 18:25 :22 No 10mg 10 mg, Oral, DAILY, First dose on Mon12/14/23 at 2200, Until Discontinu ed, Routine [facility] metoprolol tartrate (LOPRESSOR) tablet 25 mg 12-13 01:00: 00 Yes 25mg 25 mg, Oral, BID, First dose (after last reorder) on Mon12/13/23 at 2000, Until Discontinu ed, Routine [facility] potassium chloride in water (KCL) 20 mEq/100 mL RTU IVPB 20 mEq 12-12 20:00: 00 12-13 00:42 :00 No 20meq 20 mEq, IV Piggyback, at 50 mL/hr Administer over 2 Hours, Q2H ES, 2 doses, First dose on Mon12/13/23 at 1500, Last dose on Mon12/13/23 at 1700, Routine [facility] haloperidol lactate (HALDOL) injection 5 mg 12-12 14:08: 54 12-14 22:54 :50 No 5mg 5 mg, Slow IV Push, Q6HPRN, Starting on Mon12/13/23 at 0908, Until Mon12/15/23 at 1754, Routine, Hyperactiv e agitation, pulling out IV lines [facility] potassium chloride in water (KCL) 20 mEq/100 mL RTU IVPB 20 mEq 12-12 12:47: 00 12-12 17:06 :01 No 20meq 20 mEq, IV Piggyback, at 50 mL/hr Administer over 2 Hours, Q2H ES, 2 doses, First dose on Mon12/13/23 at 0800, Last dose on Mon12/13/23 at 1000, DIMAS [facility] phytonadion e (VITAMIN K) 5 mg in NaCl 0.9% (NS) piggyback 12-12 09:00: 00 12-12 09:39 :00 No 5mg IV Piggyback, ONCE, 1 dose, On Mon12/13/23 at 0400, 50 mL [facility] QUEtiapine (SEROQUEL) tablet 25 mg 12-12 02:00: 00 Yes 25mg 25 mg, Oral, QHS, First dose on Mon12/12/23 at 2100, Until Discontinu ed, Routine [facility] furosemide (LASIX) injection 20 mg 12-12 01:00: 00 12-15 02:55 :14 No 20mg 20 mg, Slow IV Push, Q12H, First dose (after last modificati on) on Mon12/12/23 at 2000, Until Discontinu ed, DIMAS [facility] HEPARIN SODIUM (PORCINE) 1,000 UNIT/ML BOLUS ACS ORDER SET 12-10 16:15: 00 12-10 22:00 :00 No 4000U 4,000 Units, IV Push, ONCE, 1 dose, On Mon12/11/23 at 1115, DIMAS [facility] heparin 25,000 Units/250 mL (Premixed Bag) in [...] INITIAL BOLUS OR INITIAL INFUSION RATE. [facility] heparin (1,000 unit/mL, 10 mL vial) for Rebolusing 12-10 16:10: 55 12-15 21:32 :38 No 3000U FOR REBOLUSING , Starting on Mon12/11/23 at 1110, Until 12/16/23 at 1632, Routine, Dosing based on aPPT testing parameters (refer to continuous heparin drip order). [facility] methocarbam oL (ROBAXIN) tablet 1,000 mg 12-10 14:52: 46 Yes 1000mg 1,000 mg, Oral, TIDPRN, Starting on Mon12/11/23 at 0952, Until Discontinu ed, Routine, Muscle Spasms [facility] metoprolol tartrate (LOPRESSOR) tablet 25 mg 12-10 14:45: 00 12-12 18:48 :53 No 25mg 25 mg, Oral, BID, First dose on Mon12/11/23 at 0945, Until Discontinu ed, Routine [facility] magnesium sulfate in water 2 gram/50 mL (4 %) infusion 2 g 12-10 12:00: 00 12-10 14:42 :00 No 2g 2 g, IV Piggyback, Administer over 60 Minutes, ONCE, 1 dose, On Mon12/11/23 at 0700, Routine [facility] potassium phosphate 30 mmol in NaCl 0.9% (NS) 250 mL piggyback 12-10 11:12: 00 12-10 17:20 :00 No 30mmol 30 mmol, IV Piggyback, ONCE, 1 dose, On Mon12/11/23 at 0615, 250 mL [facility] potassium chloride in water (KCL) 20 mEq/100 mL RTU IVPB 20 mEq 12-10 11:00: 00 12-10 15:42 :00 No 20meq 20 mEq, IV Piggyback, at 50 mL/hr Administer over 2 Hours, Q2H, 2 doses, First dose on Mon12/11/23 at 0600, Last dose on Mon12/11/23 at 0800, Routine [facility] furosemide (LASIX) injection 40 mg 12-09 14:15: 00 12-11 17:01 :40 No 40mg 40 mg, Slow IV Push, Q12H, First dose on Mon12/10/23 at 0915, Until Discontinu ed, DIMAS [facility] potassium chloride in water (KCL) 20 mEq/100 mL RTU IVPB 20 mEq 12-09 12:00: 00 12-09 13:50 :42 No 20meq 20 mEq, IV Piggyback, at 50 mL/hr Administer over 2 Hours, ONCE, 1 dose, On Mon12/10/23 at 0700, [facility] KCL (KLOR-CON M20) tablet 40 mEq 12-09 01:00: 00 12-19 19:14 :39 No 40meq 40 mEq, Oral, BID, First dose (after last modificati on) on [facility] 12/09/23 at 2000, Until Discontinu ed, DIMAS [facility] QUEtiapine (SEROQUEL) tablet 50 mg 12-09 01:00: 00 12-10 16:56 :22 No 50mg 50 mg, Oral, BID, First dose on 12/09/23 at 2000, Until Discontinu ed, Routine [facility] KCL (KLOR-CON M20) tablet 40 mEq 12-08 17:45: 00 12-08 17:09 :00 No 40meq 40 mEq, Oral, ONCE, 1 dose, On 12/09/23 at 1245, DIMAS [facility] sucralfate (CARAFATE) tablet 1 g 12-08 16:30: 00 Yes 1g 1 g, Oral, AC+HS, First dose on 12/09/23 at 1130, Until Discontinu ed, Routine [facility] fluticasone propionate 50 mcg/actuati on nasal spray 1 Sparks 12-08 01:00: 00 12-22 00:59 :00 No 1{spray } 1 Sparks, Nasal, BID, 28 doses, First dose on Mon12/08/23 at 1999, Last dose on Mon12/22/23 at 0800, Routine [facility] sodium chloride (OCEAN MIST NASAL) 0.65 % nasal spray 1 Sparks 12-08 01:00: 00 12-22 00:59 :00 No 1{spray } 1 Sparks, Nasal, BID, 28 doses, First dose on Mon12/08/23 at 1999, Last dose on Mon12/22/23 at 0800, Routine [facility] oxymetazoli ne (OXYMETAZOL INE HCL) 0.05 % nasal spray 1 Sparks 12-08 01:00: 00 12-11 00:59 :00 No 1{spray } 1 Sparks, Nasal, BID, 6 doses, First dose on Mon12/08/23 at 1999, Last dose on Mon12/11/23 at 0800, Routine [facility] acetaminoph en (TYLENOL) tablet 1,000 mg 12-07 19:00: 00 Yes 1000mg 1,000 mg, Oral, Q8H, First dose on Mon12/08/23 at 1400, Until Discontinu ed, Routine [facility] methocarbam oL (ROBAXIN) tablet 1,000 mg 12-07 19:00: 00 12-10 14:31 :59 No 1000mg 1,000 mg, Oral, TID, First dose on Mon12/08/23 at 1400, Until Discontinu ed, Routine [facility] Potassium Bicarb-Citr ic Acid (EFFER-K) effervescen t tablet 40 mEq 12-07 17:00: 00 12-08 13:39 :42 No 40meq 40 mEq, Oral, BID, 6 doses, First dose on Mon12/08/23 at 1200, Last dose on Mon12/10/23 at 2000, Routine [facility] bismuth subsalicyla te (PEPTO BISMOL) chewable tablet 524 mg 12-07 16:28: 37 12-10 14:39 :38 No 524mg 524 mg, Oral, Q6HPRN, Starting on Mon12/08/23 at 1128, Until Mon12/11/23 at 0939, Routine, Indigestio n [facility] iopamidol (ISOVUE 370-500 mL) injection 80 mL 12-07 16:15: 00 12-07 16:10 :00 No [id number] 80mL 80 mL, Intravenou s, ONCE, 1 dose, On Mon12/08/23 at 1115, Routine [facility] pantoprazol e (PROTONIX) EC tablet 40 mg 12-07 15:45: 00 Yes 40mg 40 mg, Oral, DAILY, First dose on Mon12/08/23 at 1045, Until Discontinu ed, Routine [facility] furosemide (LASIX) injection 40 mg 12-07 12:54: 00 12-07 13:11 :00 No 40mg 40 mg, Slow IV Push, ONCE, 1 dose, On Mon12/08/23 at 0800, DIMAS [facility] potassium chloride in water (KCL) 20 mEq/100 mL RTU IVPB 20 mEq 12-07 11:00: 00 12-07 15:13 :41 No 20meq 20 mEq, IV Piggyback, at 50 mL/hr Administer over 2 Hours, Q2H, 2 doses, First dose on Mon12/08/23 at 0600, Last dose on Mon12/08/23 at 0800, Routine [facility] acetaminoph en (OFIRMEV) IV piggyback 1,000 mg 12-07 09:30: 00 12-07 08:58 :00 No 1000mg 1,000 mg, IV Piggyback, at 400 mL/hr Administer over 15 Minutes, ONCE, 1 dose, On Mon12/08/23 at 0430, Routine, Is the patient strict NPO and unable to tolerate oral medication s? Yes [facility] piperacilli n-tazobacta m (ZOSYN) 3.375 g in [...] Site: Abdominal, Duration of Therapy: 7 days [facility] methocarbam oL (ROBAXIN) injection 1,000 mg 12-07 03:00: 00 12-07 13:43 :18 No 1000mg 1,000 mg, Slow IV Push, Q8H, First dose (after last reorder) on Mon12/07/23 at 2200, Until Discontinu ed, Administer over 3-5 Minutes [facility] Lidocaine (LIDOCARE) 4 % patch 1 Patch 12-07 01:30: 00 Yes 1{patch } 1 Patch, Topical, Administer over 12 Hours, DAILY, First dose on Mon24 at 2030, Until Discontinu ed, Routine [facility] acetaminoph en ([facility]) IV piggyback 1,000 mg 12-07 01:30: 00 12-07 02:40 :00 No 1000mg 1,000 mg, IV Piggyback, at 400 mL/hr Administer over 15 Minutes, ONCE, 1 dose, On [place] 12/07/23 at 2030, Routine, Is the patient strict NPO and unable to tolerate oral medication s? Yes [facility] HYDROmorpho ne (DILAUDID) injection 0.5 mg 12-07 01:27: 03 12-09 01:26 :03 No .5mg 0.5 mg, Intravenou s, Q4HPRN, Starting on Christie 12/07/23 at 2026, Until 12/09/23 at 2025, Routine, Pain (scale 7-10), Is this medication approved by a Faculty level provider? Yes, produce team member approving Restricted medication : TONEY ELKINS [facility] traMADoL (ULTRAM) tablet 50 mg 12-07 01:26: 16 Yes 50mg 50 mg, Oral, Q6HPRN, Starting on [place] 12/07/23 at 2025, Until Discontinu ed, Routine, Pain (scale 7-10) [facility] acetaminoph en ([facility]) IV piggyback 1,000 mg 12-06 21:45: 00 12-06 22:44 :00 No 1000mg 1,000 mg, IV Piggyback, at 400 mL/hr Administer over 15 Minutes, ONCE, 1 dose, On [place] 12/07/23 at 1645, Routine, Is the patient strict NPO and unable to tolerate oral medication s? Yes [facility] methocarbam oL (ROBAXIN) injection 1,000 mg 12-06 19:00: 00 12-06 19:03 :00 No 1000mg 1,000 mg, Slow IV Push, Q8H, 1 dose, First dose (after last modificati on) on [place] 12/07/23 at 1400, Administer over 3-5 Minutes [facility] potassium chloride 40 mEq in 100 mL IVPB 12-06 14:00: 00 12-06 18:10 :00 No 40meq 40 mEq, Intravenou s, ONCE, 1 dose, On [place] 12/07/23 at 0900, 100 mL [facility] acetaminoph en ([facility]) IV piggyback 1,000 mg 12-06 13:45: 00 12-06 13:41 :00 No 1000mg 1,000 mg, IV Piggyback, at 400 mL/hr Administer over 15 Minutes, ONCE, 1 dose, On [place] 12/07/23 at 0845, Routine, Is the patient strict NPO and unable to tolerate oral medication s? Yes [facility] acetaminoph en ([facility]) IV piggyback 1,000 mg 12-06 05:45: 00 12-06 06:07 :00 No 1000mg 1,000 mg, IV Piggyback, at 400 mL/hr Administer over 15 Minutes, ONCE, 1 dose, On Mon12/07/23 at 0045, Routine, Is the patient strict NPO and unable to tolerate oral medication s? Yes [facility] heparin 1,000 unit/mL injection 1,000 Units 12-06 05:45: 00 12-06 05:17 :00 No 1000U ONCE, 1 dose, On [place] 12/07/23 at 0045, Routine, For Priming of Ports: After initial saline flush, prime each port with heparin according to the priming volume listed on each catheter port for catheter lock. [facility] acetaminoph en ([facility]) IV piggyback 1,000 mg 12-06 02:30: 00 12-06 01:02 :00 No 1000mg 1,000 mg, IV Piggyback, at 400 mL/hr Administer over 15 Minutes, ONCE, 1 dose, On Mon12/06/23 at 2130, Routine, Is the patient strict NPO and unable to tolerate oral medication s? Yes [facility] acetaminoph en ([facility]) IV piggyback 1,000 mg 12-05 18:30: 00 12-05 17:59 :00 No 1000mg 1,000 mg, IV Piggyback, at 400 mL/hr Administer over 15 Minutes, ONCE, 1 dose, On Mon12/06/23 at 1330, Routine, Is the patient strict NPO and unable to tolerate oral medication s? Yes [facility] dexMEDEtomi dine 200 mcg in 0.9 % [...] at maximum allowed dose, contact prescriber . [facility] glycerin/mi neral oil (AGLO ENEMA) (COMPOUNDED ) Enem 225 mL 12-05 14:45: 00 12-05 19:59 :00 No 225mL 225 mL, Rectal, ONCE, 1 dose, On Mon12/06/23 at 0945, Routine [facility] mineral oil (MINERAL OIL EXTRA HEAVY) oral liquid 30 mL 12-05 14:00: 00 Yes 30mL 30 mL, Oral, DAILY, First dose on Mon12/06/23 at 0900, Until Discontinu ed, Routine [facility] sodium hypochlorit e 0.25% (DAKIN'S SOLUTION) solution 12-05 14:00: 00 Yes Topical, QAM, First dose on Mon12/06/23 at 0900, Until Discontinu ed, Routine [facility] polyethylen e glycol 3350 powder 17 g 12-05 14:00: 00 12-25 13:28 :38 No 17g 17 g, Oral, DAILY, First dose on Mon12/06/23 at 0900, Until Discontinu ed, Routine [facility] lactated ringers IV infusion 1,000 mL 12-05 14:00: 00 12-12 21:44 :11 No 1000mL at 42 mL/hr, 1,000 mL, IV Infusion, CONTINUOUS , Starting on Mon12/06/23 at 0900, Until Mon12/13/23 at 1644, Routine [facility] furosemide (LASIX) injection 80 mg 12-05 12:00: 00 12-05 11:30 :00 No 80mg 80 mg, Slow IV Push, ONCE, 1 dose, On Mon12/06/23 at 0700, Routine [facility] acetaminoph en (OFIRM) IV piggyback 1,000 mg 12-05 10:30: 00 12-05 10:51 :00 No 1000mg 1,000 mg, IV Piggyback, at 400 mL/hr Administer over 15 Minutes, ONCE, 1 dose, On Mon12/06/23 at 0530, Routine, Is the patient strict NPO and unable to tolerate oral medication s? Yes [facility] chlorhexidi ne (PERIDEX) 0.12 % mouthwash 15 mL 12-05 01:00: 00 Yes 15mL 15 mL, Oral (Swish And Spit Out), BID, First dose on Mon12/05/23 at 2000, Until Discontinu ed, Routine [facility] lactated ringers IV infusion 1,000 mL 12-04 16:45: 00 12-05 13:55 :24 No 1000mL at 100 mL/hr, 1,000 mL, IV Infusion, CONTINUOUS , Starting on Mon12/05/23 at 1145, Until Mon12/06/23 at 0855, Routine [facility] acetaminoph en (OFIRMEV) IV piggyback 1,000 mg 12-04 15:45: 00 12-04 15:26 :00 No 1000mg 1,000 mg, IV Piggyback, at 400 mL/hr Administer over 15 Minutes, ONCE, 1 dose, On Mon12/05/23 at 1045, Routine, Is the patient strict NPO and unable to tolerate oral medication s? Yes [facility] heparin (porcine) injection 5,000 Units 12-04 13:00: 00 12-10 16:12 :08 No 5000U 5,000 Units, Subcutaneo us, Q8H, First dose on Mon12/05/23 at 0800, Until Discontinu ed, Routine [facility] NORepinephr ine (LEVOPHED) 4 mg/250 mL in [...] intravenou s vasopresso r at a time. [facility] albumin (ALBUMINAR 25%) 25 % injection 25 g 12-04 10:15: 00 12-04 11:15 :00 No 25g 25 g, IV Infusion, ONCE, 1 dose, On Mon12/05/23 at 0515, 100 mL, Indication : NEPHROTIC SYNDROME (ACUTE, SEVERE PERIPHERAL OR PULMONARY EDEMA), Comments: Short-term use of albumin in combinatio n with diuretic therapy when: serum albumin <2 g/dL and optimal diuretic therapy alone has failed, produce team member approving Restricted medication : TAYLOR SEGUNDO [facility] acetaminoph en (OFIRMEV) IV piggyback 1,000 mg 12-04 07:45: 00 12-04 08:46 :00 No 1000mg 1,000 mg, IV Piggyback, at 400 mL/hr Administer over 15 Minutes, ONCE, 1 dose, On Mon12/05/23 at 0245, Routine, Is the patient strict NPO and unable to tolerate oral medication s? Yes [facility] methocarbam oL (ROBAXIN) injection 1,000 mg 12-04 03:00: 00 12-06 15:31 :36 No 1000mg 1,000 mg, Slow IV Push, Q8H, First dose on Mon12/04/23 at 2200, Until Discontinu ed, Administer over 3-5 Minutes [facility] FENTanyl (PF) (SUBLIMAZE) injection 50 mcg 12-04 01:30: 00 12-04 00:30 :00 No 50ug 50 mcg, Slow IV Push, ONCE, 1 dose, On Mon12/04/23 at 2030, Routine [facility] albumin (ALBUMINAR 25%) 25 % injection 25 g 12-04 00:30: 00 12-04 01:30 :00 No 25g 25 g, IV Infusion, ONCE, 1 dose, On Mon12/04/23 at 1930, 100 mL, Indication : NEPHROTIC SYNDROME (ACUTE, SEVERE PERIPHERAL OR PULMONARY EDEMA), Comments: Short-term use of albumin in combinatio n with diuretic therapy when: serum albumin <2 g/dL and optimal diuretic therapy alone has failed, produce team member approving Restricted medication : TONEY ELKINS [facility] acetaminoph en (OFIRMEV) IV piggyback 1,000 mg 12-03 23:45: 00 12-04 01:44 :04 No 1000mg 1,000 mg, IV Piggyback, at 400 mL/hr Administer over 15 Minutes, ONCE, 1 dose, On Mon12/04/23 at 1845, Routine, Is the patient strict NPO and unable to tolerate oral medication s? Yes [facility] sulfur hexafluorid e microsphr (LUMASON) injection 5 mL 12-03 20:45: 00 12-03 20:32 :00 No [id number] 5mL 5 mL, Intravenou s, ONCE, 1 dose, On Mon12/04/23 at 1545, Routine [facility] lactated ringers IV infusion 1,000 mL 12-03 19:45: 00 12-03 21:58 :00 No 1000mL at 999 mL/hr, 1,000 mL, Intravenou s, ONCE, 1 dose, On Mon12/04/23 at 1445, Routine [facility] furosemide (LASIX) injection 40 mg 12-03 17:30: 00 12-03 17:50 :00 No 40mg 40 mg, Slow IV Push, ONCE, 1 dose, On Mon12/04/23 at 1245, Routine [facility] albumin (ALBUMINAR 25%) 25 % injection 25 g 12-03 11:00: 00 12-03 12:27 :00 No 25g 25 g, IV Infusion, ONCE, 1 dose, On Mon12/04/23 at 0600, 100 mL, Indication : NEPHROTIC SYNDROME (ACUTE, SEVERE PERIPHERAL OR PULMONARY EDEMA), Comments: Short-term use of albumin in combinatio n with diuretic therapy when: serum albumin <2 g/dL and optimal diuretic therapy alone has failed, produce team member approving Restricted medication : TAYLOR SEGUNDO [facility] metoprolol (LOPRESSOR) injection 5 mg 12-03 09:38: 03 12-03 23:33 :32 No 5mg 5 mg, Intravenou s, Q6HPRN, Starting on Mon12/04/23 at 0438, Until Mon12/04/23 at 1833, Routine, HR >110, atrial fibrillati on [facility] NORepinephr ine (LEVOPHED) 4 mg/250 mL in [...] intravenou s vasopresso r at a time. [facility] fentaNYL PF (SUBLIMAZE) 10 mcg/mL in NaCl [...] at maximum allowed dose, contact prescriber . [facility] propofoL IV infusion 12-03 07:55: 49 12-06 [...] vials should be discarded after 12 hours. [facility] midazolam (VERSED) injection 12-03 06:32: 00 12-03 07:25 :17 No IV Push, ONCE INTRA PROCEDURE, Starting on Mon12/04/23 at 0132, Until Mon12/04/23 at 0225, Routine, Intra-op [facility] sodium hypochlorit e 0.25% (DAKIN'S SOLUTION) solution 12-03 05:53: 00 12-03 06:59 :50 No PRN, Starting on 12/04/23 at 0053, Until Mon12/04/23 at 0159, Routine, [facility]op [facility] Transfuse Packed RBC (in units)~ 12-03 03:27: 00 12-03 07:25 :17 No Routine [facility] NORepinephr ine (LEVOPHED) 4 mg in NaCl 0.9% (NS) 250 mL infusion 12-03 03:07: 00 12-03 07:25 :17 No IV Infusion, CONTINUOUS PRN, Starting on 12/03/23 at 2207, Intra-op [facility] Transfuse Packed RBC (in units)~On hold for procedure; 12/02 0800; Infuse Each Unit Over: 2 Hours 12-03 02:48: 41 12-03 07:25 :17 No Routine [facility] labetaloL (NORMODYNE) 5 mg/mL injection 12-03 02:40: 00 12-03 07:25 :17 No Slow IV Push, ONCE INTRA PROCEDURE, Starting on Mon12/03/23 at 2140, Until Mon12/04/23 at 022, Routine, Intra-op [facility] lactated ringers IV infusion 12-03 01:26: 00 12-03 07:25 :17 No IV Infusion, CONTINUOUS PRN, Starting on Mon12/03/23 at 2025, Until Mon12/04/23 at 022, Routine, Intra-op [facility] PHENYLephri ne 1000 mcg/10 mL in 0.9% NaCl syringe 12-03 01:09: 00 12-03 07:25 :17 No Slow IV Push, ONCE INTRA PROCEDURE, Starting on 12/03/23 at 2009, Until Mon12/04/23 at 022, Routine, Intra-op [facility] NORepinephr ine (LEVOPHED) 4 mg in NaCl 0.9% (NS) 250 mL infusion 12-03 01:03: 00 12-03 07:25 :17 No IV Infusion, CONTINUOUS PRN, Starting on 12/03/23 at 2002, Intra-op [facility] rocuronium (ZEMURON) injection 12-03 00:56: 00 12-03 07:25 :17 No IV Push, ONCE INTRA PROCEDURE, Starting on 12/03/23 at 195, Until 12/04/23 at 224, Routine, Intra-op [facility] propofoL IV infusion 12-03 00:56: 00 12-03 07:25 :17 No Slow IV Push, ONCE INTRA PROCEDURE, Starting on 12/03/23 at 195, Until Mon12/04/23 at 224, Routine, Intra-op [facility] lidocaine 1% (XYLOCAINE) 100 mg/10 mL (1 %) injection 12-03 00:56: 00 12-03 07:25 :17 No Slow IV Push, ONCE INTRA PROCEDURE, Starting on 12/03/23 at 195, Until Mon12/04/23 at 224, Routine, Intra-op [facility] FENTanyl (PF) (SUBLIMAZE) injection 12-03 00:56: 00 12-03 07:25 :17 No Slow IV Push, ONCE INTRA PROCEDURE, Starting on 12/03/23 at 1956, Until Mon12/04/23 at 224, Routine, Intra-op [facility] lactated ringers IV infusion 12-03 00:47: 00 12-03 07:25 :17 No IV Infusion, CONTINUOUS PRN, Starting on 12/03/23 at 1947, Until Mon12/04/23 at 224, Routine, Intra-op [facility] acetaminoph en (OFIRMEV) IV piggyback 1,000 mg 12-02 23:15: 00 12-02 22:43 :00 No 1000mg 1,000 mg, IV Piggyback, at 400 mL/hr Administer over 15 Minutes, ONCE, 1 dose, On Mon12/03/23 at 1815, Routine, Is the patient strict NPO and unable to tolerate oral medication s? Yes [facility] iopamidol (ISOVUE 370-500 mL) injection 80 mL 12-02 22:12: 00 12-02 22:30 :00 No [id number] 80mL 80 mL, Intravenou s, ONCE, 1 dose, On Mon12/03/23 at 1730, Routine [facility] pantoprazol e (PROTONIX) injection 40 mg 12-02 20:02: 27 12-07 16:33 :39 No 40mg 40 mg, Slow IV Push, Q24H, First dose (after last modificati on) on Mon12/03/23 at 1515, Until Discontinu ed [facility] HYDROmorpho ne (DILAUDID) injection 0.4 mg 12-02 18:53: 24 12-03 06:57 :49 No .4mg 0.4 mg, Intravenou s, Q5MIN PRN, 3 doses, Starting on Mon12/03/23 at 1353, Until Mon12/04/23 at 0157, Routine, Pain (scale 7-10), For disimpacti on, Is this medication approved by a Faculty level provider? Yes, produce team member approving Restricted medication : TAYLOR SEGUNDO [facility] morpHINE 30 mg/30 mL (fixed dose) SYS DIR injection 12-02 18:45: 00 12-03 06:57 :49 No Patient Bolus Dose: 1 mg, Lockout Interval: 12 Minutes, Basal Rate: 0 mg/hr, Four Hour Dose Limit: 32 mg, Intravenou s, 30 mL, CONTINUOUS , Starting on Mon12/03/23 at 1345, Until Mon12/04/23 at 0157 [facility] naloxone (NARCAN) injection 0.4 mg 12-02 17:34: 30 Yes .4mg 0.4 mg, Slow IV Push, PRN, Starting on Mon12/03/23 at 1234, Until Discontinu ed, Routine, Sedation/R espiratory Depression [facility] piperacilli n-tazobacta m (ZOSYN) 3.375 g in NaCl 0.9% (NS) 100 mL MINI-BAG 12-02 16:30: 00 12-07 01:24 :56 No 3.375g 3.375 g, IV Piggyback, Q8H ABX, 15 doses, First dose on Mon12/03/23 at 1130, Last dose on Mon12/08/23 at 0330, Administer over 4 Hours, 100 mL, Reason for Anti-Infec tive: Documented Infection, Documented Infection Site: Abdominal, Duration of Therapy: 7 days [facility] acetaminoph en ([facility]) IV piggyback 1,000 mg 12-02 15:15: 00 12-02 15:34 :00 No 1000mg 1,000 mg, IV Piggyback, at 400 mL/hr Administer over 15 Minutes, ONCE, 1 dose, On Mon12/03/23 at 1015, Routine, Is the patient strict NPO and unable to tolerate oral medication s? Yes [facility] HYDROmorpho ne (DILAUDID) injection 0.4 mg 12-02 15:04: 12 12-02 17:35 :33 No .4mg 0.4 mg, Slow IV Push, Q4HPRN, Starting on Mon12/03/23 at 1004, Until Mon12/03/23 at 1235, Routine, Pain (scale 7-10), Is this medication approved by a Faculty level provider? Yes, produce team member approving Restricted medication : TAYLOR SEGUNDO [facility] acetaminoph en ([facility]) IV piggyback 1,000 mg 12-02 10:15: 00 12-02 09:49 :00 No 1000mg 1,000 mg, IV Piggyback, at 400 mL/hr Administer over 15 Minutes, ONCE, 1 dose, On Mon12/03/23 at 0515, Routine, Is the patient strict NPO and unable to tolerate oral medication s? Yes [facility] pantoprazol e (PROTONIX) injection 40 mg 12-02 09:15: 00 12-02 18:57 :58 No 40mg 40 mg, Slow IV Push, Q24H, 3 doses, First dose on Mon12/03/23 at 0415, Last dose on Mon12/05/23 at 0415 [facility] lactated ringers IV infusion 1,000 mL 12-02 09:00: 00 12-04 16:44 :09 No 1000mL at 150 mL/hr, 1,000 mL, IV Infusion, CONTINUOUS , Starting on Mon12/03/23 at 0400, Until Mon12/05/23 at 1144, Routine [facility] morphine (2 mg/mL) injection 4 mg 12-02 08:07: 13 12-02 15:05 :09 No 4mg 4 mg, Slow IV Push, Q3HPRN, Starting on Mon12/03/23 at 0307, Until Mon12/03/23 at 1005, Routine, Pain (scale 7-10), Pain unrelieved by scheduled analgesics [facility] ondansetron (ZOFRAN (PF)) injection 4 mg 12-02 08:06: 29 Yes 4mg [facility] piperacilli n-tazobacta m (ZOSYN) 3.375 g in NaCl 0.9% (NS) 100 mL MINI-BAG 12-02 07:53: 00 12-02 08:36 :00 No 3.375g 3.375 g, IV Piggyback, ONCE, 1 dose, On Mon12/03/23 at 0300, Administer over 30 Minutes, 100 mL, Reason for Anti-Infec tive: Documented Infection, Documented Infection Site: Abdominal, Duration of Therapy: 7 days [facility] HYDROcodone -acetaminop hen 5-325 mg tablet 11-27 00:00: 00 Yes [id number] 1{tbl} Take 1 tablet by mouth every 6 (six) hours as needed for Pain (scale 7-10). Indication s: acute pain, chronic pain [facility] gabapentin 100 mg capsule 11-23 00:00: 00 Yes [id number] 100mg Take 1 capsule by mouth in the morning. [facility] sennosides 8.6 mg tablet 11-23 00:00: 00 Yes [id number] 8.6mg Take 1 tablet by mouth in the morning. [facility] polyethylen e glycol 3350 17 gram powder 11-23 00:00: 00 12-02 00:00 :00 No [id number] 17g Take 1 Packet by mouth in the morning. [facility] perflutren lipid microsphere s (DEFINITY) injection 2 mL 11-22 15:30: 11-22 15:30 :00 No [id number] 2mL 2 mL, IV Push, ONCE, 1 dose, On Christie 11/23/23 at 1030, Routine [facility] Potassium Bicarb-Citr ic Acid (EFFER-K) effervescen t tablet 40 mEq 11-22 13:15: 00 11-22 13:06 :00 No 40meq 40 mEq, Oral, ONCE, 1 dose, On Mon11/23/23 at 0815, Routine [facility] cephALEXin (KEFLEX) capsule 500 mg 11-22 13:00: 11-27 12:59 :00 Yes 500mg 500 mg, Oral, Q12H, 10 doses, First dose on Mon11/23/23 at 0800, Last dose on Mon11/27/23 at 2000, DIMAS, Reason for Anti-Infec tive: Documented Infection, Documented Infection Site: Urine, Duration of Therapy: 7 days [facility] cephALEXin 500 mg capsule 11-22 00:00: 00 Yes [id number] 500mg Take 1 capsule by mouth every 12 (twelve) hours. [facility] ferrous sulfate 325 mg (65 mg iron) tablet 11-22 00:00: 00 Yes [id number] 325mg Take 1 tablet by mouth every other day. [facility] HYDROcodone -acetaminop hen 5-325 mg tablet 11-22 00:00: 00 11-27 00:00 :00 No [id number] 1{tbl} Take 1 tablet by mouth every 6 (six) hours as needed for Pain (scale 7-10) for up to 7 days. Indication s: acute pain [facility] lidocaine 4% (L-M-X 4) 4 % cream 11-21 22:00: 00 11-21 22:36 :00 No Topical, ONCE, 1 dose, On Mon11/22/23 at 1700, Routine [facility] gabapentin (NEURONTIN) capsule 100 mg 11-21 18:15: 00 Yes 100mg 100 mg, Oral, DAILY, First dose (after last modificati on) on Mon11/22/23 at 1315, Until Discontinu ed, Routine [facility] HYDROcodone -acetaminop hen (NORCO 5) tablet 1 tablet 11-21 14:45: 33 Yes 1{tbl} 1 tablet, Oral, Q6HPRN, Starting on Mon11/22/23 at 0945, Until Discontinu ed, Routine, Pain (scale 7-10) [facility] simethicone (GAS RELIEF (SIMETHICON E)) chewable tablet 80 mg 11-21 14:00: 00 Yes 80mg 80 mg, Oral, PC+HS, First dose on Mon11/22/23 at 0900, Until Discontinu ed, Routine [facility] cefTRIAXone (ROCEPHIN) 1,000 mg in NaCl 0.9% (NS) 100 mL MINI-BAG 11-20 21:00: 00 11-22 12:28 :15 No 1000mg 1,000 mg, IV Piggyback, Q24H ABX, 5 doses, First dose on Mon11/21/23 at 1600, Last dose on Mon11/25/23 at 1600, Administer over 30 Minutes, 100 mL, Reason for Anti-Infec tive: Documented Infection, Documented Infection Site: Urine, Duration of Therapy: 7 days [facility] polyethylen e glycol 3350 powder 17 g [...] Until Discontinu ed, Routine [Order 2 End] [facility] ramelteon (ROZEREM) tablet 8 mg 11-20 05:00: 00 11-20 05:00 :00 No 8mg 8 mg, Oral, ONCE NOW, 1 dose, On Mon11/21/23 at 0000, Routine [facility] glycerin/mi neral oil (AGLO ENEMA) (COMPOUNDED ) Enem 225 mL 11-20 04:19: 23 Yes 225mL 225 mL, Rectal, PRN, Starting on Mon11/20/23 at 2319, Until Discontinu ed, Routine, Constipati on unresolved by oral medication s [facility] heparin (porcine) injection 5,000 Units 11-20 03:00: 00 Yes 5000U 5,000 Units, Subcutaneo us, Q8H, First dose on Mon11/20/23 at 2200, Until Discontinu ed, Routine [facility] acetaminoph en (TYLENOL) tablet 650 mg 11-20 02:16: 20 Yes 650mg [facility] insulin lispro (human) (HumaLOG U-100) injection 2 Units 11-19 22:22: 30 Yes 2U 2 Units, Subcutaneo us, PRN - SEE INSTRUCTIO NS, 1 dose, Starting on Mon11/20/23 at 1722, Until Discontinu ed, Routine, For blood glucose > 300 mg/dL [facility] dextrose 10% (D10W) bolus infusion 125 mL [...] carb snack - Sprite or cranberry juice. [facility] NaCl 0.9% (NS) bolus infusion 500 mL 11-19 22:00: 00 11-19 23:24 :00 No [id number] 500mL at 999 mL/hr, 500 mL, IV Piggyback, ONCE, 1 dose, On Mon11/20/23 at 1700, STAT [facility] lidocaine (XYLOCAINE) 2 % jelly URO-JET 10 mL 11-19 20:45: 00 11-19 22:32 :00 No 10mL 10 mL, Urethral, ONCE, 1 dose, On Mon11/20/23 at 1545, Routine [facility] sodium bicarbonate 150 mEq in D5W 1,000 mL IV infusion 11-19 20:30: 00 11-20 06:30 :00 No 150meq IV Infusion, at 200 mL/hr, 150 mEq, ONCE, 1 dose, On Mon11/20/23 at 1530, DIMAS [facility] insulin regular human (HUMULIN R) injection 10 Units 11-19 20:30: 00 11-19 23:14 :00 No 10U 10 Units, IV Push, ONCE, 1 dose, On Mon11/20/23 at 1530, DIMAS, Indication for insulin: Hyperkalem ia- Please use the Insulin Protocol for Hyperkalem ia order set [facility] dextrose 50 % in water (D50W) injection 50 mL 11-19 20:30: 00 11-19 23:06 :00 No 50mL 50 mL, Slow IV Push, ONCE, 1 dose, On Mon11/20/23 at 1530, DIMAS [facility] glucagon HCL injection 1 mg 11-19 20:17: 46 Yes 1mg 1 mg, Intramuscu lar, PRN, Starting on Mon11/20/23 at 1517, Until Discontinu ed, DIMAS, Low blood sugar, Blood Glucose < or = 70 mg/dL and patient is NPO, unable to swallow or has mental changes. [facility] dextrose 50 % in water (D50W) injection 25 mL 11-19 20:17: 46 Yes 25mL 25 mL, Slow IV Push, PRN, Starting on Mon11/20/23 at 1517, Until Discontinu ed, DIMAS, Blood Glucose < or = 70 mg/dL and patient is NPO, unable to swallow or has mental status changes. [facility] fentanyl PF (SUBLIMAZE (PF)) injection 12.5 mcg 11-19 20:00: 00 11-19 20:34 :00 No 12.5ug 12.5 mcg, Slow IV Push, ONCE, 1 dose, On Mon11/20/23 at 1500, Routine [facility] piperacilli n-tazobacta m (ZOSYN) 2.25 g in NaCl 0.9% (NS) 100 mL MINI-BAG 11-19 20:00: 00 11-19 22:31 :00 No 2.25g 2.25 g, IV Piggyback, ONCE, 1 dose, On Mon11/20/23 at 1500, Administer over 30 Minutes, 100 mL, Reason for Anti-Infec tive: Documented Infection, Documented Infection Site: Urine, Duration of Therapy: Once (ED) [facility] metoclopram margarita HCl (REGLAN) injection 10 mg 11-19 20:00: 00 11-19 20:48 :00 No 10mg 10 mg, Slow IV Push, ONCE, 1 dose, On Mon11/20/23 at 1500, DIMAS [facility] NaCl 0.9% (NS) bolus infusion 500 mL 11-19 17:30: 00 11-19 22:31 :00 No 500mL at 999 mL/hr, 500 mL, IV Infusion, ONCE, 1 dose, On Mon11/20/23 at 1230, STAT [facility] Vital Signs Vital Name Observation Time Observation Value Comments S ource Systolic blood pressure 2023-12-29 14:00:00 133 mm[Hg] [facility] Diastolic blood pressure 2023-12-29 14:00:00 62 mm[Hg] [facility] Heart rate 2023-12-29 14:00:00 87 /min [facility] Body temperature 2023-12-29 14:00:00 36.56 Adore [facility] Respiratory rate 2023-12-29 14:00:00 17 /min [facility] Oxygen saturation in Arterial blood by Pulse oximetry 2023-12-29 14:00:00 98 /min [facility] Body height 2023-12-27 13:00:00 172.7 cm [facility] Body weight 2023-12-27 13:00:00 170.099 kg [facility] BMI 2023-12-27 13:00:00 57.02 kg/m2 [facility] Respiratory rate 2023-12-04 00:52:00 30 /min [facility] Heart rate 2023-12-03 23:00:00 98 /min [facility] Respiratory rate 2023-12-03 23:00:00 28 /min [facility] Oxygen saturation in Arterial blood by Pulse oximetry 2023-12-03 23:00:00 99 /min [facility] Systolic blood pressure 2023-12-03 22:00:00 155 mm[Hg] [facility] Diastolic blood pressure 2023-12-03 22:00:00 76 mm[Hg] [facility] Body temperature 2023-12-03 21:00:00 37.61 Adore [facility] Body height 2023-12-03 15:19:00 172.7 cm [facility] Body weight 2023-12-03 15:19:00 170.1 kg [facility] BMI 2023-12-03 15:19:00 57.02 kg/m2 [facility] Systolic blood pressure 2023-11-23 16:54:00 136 mm[Hg] [facility] Diastolic blood pressure 2023-11-23 16:54:00 61 mm[Hg] [facility] Heart rate 2023-11-23 16:54:00 92 /min [facility] Body temperature 2023-11-23 16:54:00 36.22 Adore [facility] Respiratory rate 2023-11-23 16:54:00 18 /min [facility] Oxygen saturation in Arterial blood by Pulse oximetry 2023-11-23 16:54:00 96 /min [facility] Body height 2023-11-21 01:17:00 170.2 cm [facility] Body weight 2023-11-21 01:17:00 171.913 kg [facility] BMI 2023-11-21 01:17:00 59.36 kg/m2 [facility] Heart rate 2023-12-04 16:20:00 106 /min [facility] Respiratory rate 2023-12-04 16:20:00 22 /min [facility] Oxygen saturation in Arterial blood by Pulse oximetry 2023-12-04 16:20:00 100 /min [facility] Body temperature 2023-12-04 13:00:00 37.28 Adore [facility] Systolic blood pressure 2023-12-04 07:15:00 194 mm[Hg] [facility] Diastolic blood pressure 2023-12-04 07:15:00 165 mm[Hg] [facility] Body height 2023-12-03 15:19:00 172.7 cm [facility] Body weight 2023-12-03 15:19:00 170.1 kg [facility] BMI 2023-12-03 15:19:00 57.02 kg/m2 [facility] Procedures Procedure Date / Time Performed Performing Clinician Source CT ABDOMEN PELVIS W CONTRAST 2023-12-22 17:55:36 Yoni Simon [facility] PHOSPHORUS 2023-12-20 10:27:00 Corey Carias [facility] MAGNESIUM 2023-12-20 10:27:00 Corey Carias [facility] BASIC METABOLIC PANEL (NA, K, CL, CO2, GLUCOSE, BUN, CREATININE, CA) 2023-12-20 10:27:00 Corey Costello [facility] CBC WITH DIFF 2023-12-20 10:27:00 Corey Carias [facility] PHOSPHORUS 2023-12-19 14:46:00 Corey Carias [facility] MAGNESIUM 2023-12-19 14:45:00 Corey Carias [facility] PHOSPHORUS 2023-12-18 11:20:00 Corey Carias [facility] MAGNESIUM 2023-12-18 11:20:00 Corey Carias [facility] BASIC METABOLIC PANEL (NA, K, CL, CO2, GLUCOSE, BUN, CREATININE, CA) 2023-12-18 11:20:00 Corey Costello [facility] CBC WITH DIFF 2023-12-18 11:20:00 Corey Carias [facility] PHOSPHORUS 2023-12-17 09:20:00 Corey Carias [facility] MAGNESIUM 2023-12-17 09:20:00 Corey Carias [facility] BASIC METABOLIC PANEL (NA, K, CL, CO2, GLUCOSE, BUN, CREATININE, CA) 2023-12-17 09:20:00 Corey Costello [facility] CBC WITH DIFF 2023-12-17 09:20:00 Corey Carias [facility] ACTIVATED PARTIAL THRMPLAS JESUS MANUEL 2023-12-16 21:28:00 Corey Costello [facility] PHOSPHORUS 2023-12-16 07:47:00 Corey Carias [facility] MAGNESIUM 2023-12-16 07:47:00 Corey Carias [facility] BASIC METABOLIC PANEL (NA, K, CL, CO2, GLUCOSE, BUN, CREATININE, CA) 2023-12-16 07:47:00 Corey Costello [facility] CBC WITH DIFF 2023-12-16 07:47:00 Corey Carias [facility] ACTIVATED PARTIAL THRMPLAS JESUS MANUEL 2023-12-16 03:37:00 Corey Costello [facility] ACTIVATED PARTIAL THRMPLAS JESUS MANUEL 2023-12-15 20:20:00 Corey Costello [facility] PHOSPHORUS 2023-12-15 08:44:00 Corey Carias [facility] MAGNESIUM 2023-12-15 08:44:00 Corey Carias [facility] BASIC METABOLIC PANEL (NA, K, CL, CO2, GLUCOSE, BUN, CREATININE, CA) 2023-12-15 08:44:00 Corey Costello [facility] CBC WITH DIFF 2023-12-15 08:44:00 Corey Carias [facility] ACTIVATED PARTIAL THRMPLAS JESUS MANUEL 2023-12-15 08:44:00 Corey Costello [facility] POTASSIUM SERUM 2023-12-15 06:07:00 Magy Ayala [facility] ACTIVATED PARTIAL THRMPLAS JESUS MANUEL 2023-12-15 01:36:00 Corey Costello [facility] ACTIVATED PARTIAL THRMPLAS JESUS MANUEL 2023-12-14 17:23:00 Corey Costello [facility] PHOSPHORUS 2023-12-14 09:57:00 Corey Carias [facility] MAGNESIUM 2023-12-14 09:57:00 Corey Carias [facility] BASIC METABOLIC PANEL (NA, K, CL, CO2, GLUCOSE, BUN, CREATININE, CA) 2023-12-14 09:57:00 Corey Costello [facility] CBC WITH DIFF 2023-12-14 09:57:00 Corey Carias [facility] PROTHROMBIN TIME / INR 2023-12-14 09:57:00 Angela Almodovar [facility] ACTIVATED PARTIAL THRMPLAS JESUS MANUEL 2023-12-14 09:57:00 Corey Costello [facility] ACTIVATED PARTIAL THRMPLAS JESUS MANUEL 2023-12-14 03:11:00 Corey Costello [facility] ACTIVATED PARTIAL THRMPLAS JESUS MANUEL 2023-12-13 19:52:00 Corey Costello [facility] BASIC METABOLIC PANEL (NA, K, CL, CO2, GLUCOSE, BUN, CREATININE, CA) 2023-12-13 18:24:00 Corey Costello [facility] PHOSPHORUS 2023-12-13 10:34:00 Corey Carias [facility] MAGNESIUM 2023-12-13 10:34:00 Corey Carias [facility] BASIC METABOLIC PANEL (NA, K, CL, CO2, GLUCOSE, BUN, CREATININE, CA) 2023-12-13 10:34:00 Corey Costello [facility] CBC WITH DIFF 2023-12-13 10:34:00 Corey Carias [facility] ACTIVATED PARTIAL THRMPLAS JESUS MANUEL 2023-12-13 10:34:00 Corey Costello [facility] ACTIVATED PARTIAL THRMPLAS JESUS MANUEL 2023-12-12 19:43:00 Corey Costello [facility] PHOSPHORUS 2023-12-12 10:45:00 Corey Carias [facility] MAGNESIUM 2023-12-12 10:45:00 Corey Carias [facility] HEPATIC FUNCTION PANEL ([id number]) (ALB,T.PRO,BILI T,BU/BC,ALT,AST,ALK PHOS) 2023-12-12 10:45:00 Sukhwinder Almodovar [facility] BASIC METABOLIC PANEL (NA, K, CL, CO2, GLUCOSE, BUN, CREATININE, CA) 2023-12-12 10:45:00 Corey Costello [facility] CBC WITH DIFF 2023-12-12 10:45:00 Corey Carias [facility] PROTHROMBIN TIME / INR 2023-12-12 10:45:00 Angela Almodovar [facility] ACTIVATED PARTIAL THRMPLAS JESUS MANUEL 2023-12-12 10:45:00 Corey Costello [facility] ACTIVATED PARTIAL THRMPLAS JESUS MANUEL 2023-12-12 03:53:00 Corey Costello [facility] ACTIVATED PARTIAL THRMPLAS JESUS MANUEL 2023-12-11 20:53:00 Corey Costello [facility] PROTHROMBIN TIME / INR 2023-12-11 20:52:00 Corey Dugan [facility] PHOSPHORUS 2023-12-11 08:32:00 Corey Carias [facility] MAGNESIUM 2023-12-11 08:32:00 Corey Carias [facility] BASIC METABOLIC PANEL (NA, K, CL, CO2, GLUCOSE, BUN, CREATININE, CA) 2023-12-11 08:32:00 Corey Costello [facility] CBC WITH DIFF 2023-12-11 08:32:00 Corey Carias [facility] XR CHEST 1 VW 2023-12-10 10:12:00 Corey Carias [facility] PHOSPHORUS 2023-12-10 08:10:00 Corey Carias [facility] MAGNESIUM 2023-12-10 08:10:00 Corey Carias [facility] BASIC METABOLIC PANEL (NA, K, CL, CO2, GLUCOSE, BUN, CREATININE, CA) 2023-12-10 08:10:00 Corey Costello [facility] CBC WITH DIFF 2023-12-10 08:10:00 Corey Carias [facility] BODY FLUID CULTURE(AEROBIC/ANAEROBIC) 2023-12-09 14:04:00 Corey Costello [facility] XR CHEST 1 VW 2023-12-09 09:46:00 Corey Carias [facility] PHOSPHORUS 2023-12-09 08:47:00 Corey Carias [facility] MAGNESIUM 2023-12-09 08:47:00 Corey Carias [facility] BASIC METABOLIC PANEL (NA, K, CL, CO2, GLUCOSE, BUN, CREATININE, CA) 2023-12-09 08:47:00 Corey Costello [facility] CBC WITH DIFF 2023-12-09 08:47:00 Corey Carias [facility] XR KUB 2023-12-09 03:07:55 Marilee Wei [facility] CT ABDOMEN PELVIS W CONTRAST 2023-12-08 16:31:19 Corey Costello [facility] XR CHEST 1 2023-12-08 08:58:00 Corey Carias [facility] PHOSPHORUS 2023-12-08 08:47:00 Corey Carias [facility] MAGNESIUM 2023-12-08 08:47:00 Corey Carias [facility] BASIC METABOLIC PANEL (NA, K, CL, CO2, GLUCOSE, BUN, CREATININE, CA) 2023-12-08 08:47:00 Corey Costello [facility] CBC WITH DIFF 2023-12-08 08:47:00 Corey Carias [facility] XR CHEST 1 2023-12-07 09:14:00 Corey Carias [facility] PHOSPHORUS 2023-12-07 08:28:00 Ariel Vieira [facility] MAGNESIUM 2023-12-07 08:28:00 [facility] (NA, K, CL, CO2, GLUCOSE, BUN, CREATININE, CA) 2023-12-07 08:28:00 Ariel Vieira [facility] CBC WITH DIFF 2023-12-07 08:28:00 Dariel [facility] AC PANEL 20 + LACTIC ACID 2023-12-07 08:27:00 Jeny Garner [facility] URINALYSIS 2023-12-06 17:32:00 Leonid Jim Sotomayor [facility] AC PANEL 20 + LACTIC ACID 2023-12-06 14:55:00 Jeny Garner [facility] TRANSFUSE PACKED RBC 2023-12-06 10:05:00 Beckie Carreon [facility] PREPARE PACKED RBC 2023-12-06 09:47:53 Beckie Carreon [facility] XR CHEST 1 VW 2023-12-06 09:03:00 Corey Carias [facility] PHOSPHORUS 2023-12-06 08:18:00 Dariel [facility] MAGNESIUM 2023-12-06 08:[facility] (NA, K, CL, CO2, GLUCOSE, BUN, CREATININE, CA) 2023-12-06 08:18:00 Dariel [facility] CBC WITH DIFF 2023-12-06 08:18:00 Dariel [facility] AC PANEL 20 + LACTIC ACID 2023-12-06 08:18:00 Beckie Carreon [facility] ACUTE CARE ARTERIAL BLOOD GAS 2023-12-05 17:35:00 Yoni Simon [facility] XR CHEST 1 VW 2023-12-05 08:53:00 Corey Carias [facility] PHOSPHORUS 2023-12-05 08:34:00 [facility]23-12-05 08:34:00 [facility] BASIC MET[facility]OLIC PANEL (NA, K, CL, CO2, GLUCOSE, BUN, CREATININE, CA) 2023-12-05 08:34:00 Dariel [facility] CBC WITH DIFF 2023-12-05 08:34:00 Ariel Vieira [facility] AC PANEL 20 + LACTIC ACID 2023-12-05 08:34:00 [facility] + LACTIC ACID 2023-12-05 03:58:00 La[facility], [facility]EL 20 + LACTIC ACID 2023-12-05 01:49:00 [facility] 1 VW 2023-12-05 01:04:00 Dongcharlotte, [facility] VW 2023-12-05 01:03:45 Lauri, [facility] BASIC METABOLIC PANEL (NA, K, CL, CO2, GLUCOSE, BUN, CREATININE, CA) 2023-12-04 22:35:00 Nishi [facility] CBC WITH DIFF 2023-12-04 22:35:00 Nishi Sukhwinder [facility] TRANSTHORACIC ECHO (TTE) LIMITED W/ CONTRAST 2023-12-04 20:36:00 Corey Costello [facility] AC PANEL 20 + LACTIC ACID 2023-12-04 19:53:00 Lauri [facility] AC PANEL 20 + LACTIC ACID 2023-12-04 10:28:00 Lauri [facility] AC PANEL 20 + LACTIC ACID 2023-12-04 10:28:00 Lauri [facility] AC PANEL 20 + LACTIC ACID 2023-12-04 10:28:00 [facility]EL [facility] + LACTIC ACID 2023-12-04 08:15:00 Michelle Steiner [facility] AC PANEL 20 + LACTIC ACID 2023-12-04 08:15:00 Michelle Steiner [facility] AC PANEL 20 + LACTIC ACID 2023-12-04 08:15:00 Michelle Steiner [facility] CBC WITH DIFF 2023-12-04 08:14:00 Elizabeth Steiner [facility] BASIC METABOLIC PANEL (NA, K, CL, CO2, GLUCOSE, BUN, CREATININE, CA) 2023-12-04 08:14:00 Green [facility] MAGNESIUM 2023-12-04 08:14[facility]00 [facility]-12-04 08:14[facility]00 [facility] ACTIVATED PARTIAL THRMPLAS JESUS MANUEL 2023-12-04 08:14[facility] 2023-12-04 08:14:00 Green [facility] FIBRINOGEN 2023-12-04 08:14:00 [facility] GLYCOSYLATED HEMOGLOBIN (A1C) 2023-12-04 08:14:00 Los Guidry [facility] PHOSPHORUS 2023-12-04 08:14:00 [facility] 2023-12-04 08:14:00 [facility] BASIC METABOLIC PANEL (NA, K, CL, CO2, GLUCOSE, BUN, CREATININE, CA) 2023-12-04 08:14:00 Jatin [facility] CBC WITH DIFF 2023-12-04 08:14[facility]00 [facility] GLYCOSYLATED HEMOGLOBIN (A1C) 2023-12-04 08:14:00 Los Guidry [facility] PROTHROMBIN TIME / INR 2023-12-04 08:14:00 Green [facility] ACTIVATED PARTIAL THRMPLAS JESUS MANUEL 2023-12-04 08:14:00 Green [facility] FIBRINOGEN 2023-12-04 08:14:00 [facility] 2023-12-04 08:14:00 [facility] MAGNESIUM 2023-12-04 08:14:00 [facility] BASIC METABOLIC PANEL (NA, K, CL, CO2, GLUCOSE, BUN, CREATININE, CA) 2023-12-04 08:14:00 [facility] 2023-12-04 08:14:00 [facility] GLYCOSYLATED HEMOGLOBIN (A1C) 2023-12-04 08:14:00 BreaLos Darya Reynoso [facility] PROTHROMBIN TIME / INR 2023-12-04 08:14:00 Jatin [facility] ACTIVATED PARTIAL THRMPLAS JESUS MANUEL 2023-12-04 08:14:00 Jatin [facility] FIBRINOGEN 2023-12-04 08:14:00 Jatin [facility] XR KUB 2023-12-04 07:47:00 [facility] 2023-12-04 07:47:00 Green, [facility] XR KUB 2023-12-04 07:47:00 [facility] 2023-12-04 07:46:00 [facility] 2023-12-04 07:46:00 [facility] 2023-12-04 07:46:00 [facility] 2023-12-04 07:43:00 [facility] 1 2023-12-04 07:43:00 [facility] 1 2023-12-04 07:43:00 [facility] 2023-12-04 07:43:00 [facility]ST 1 2023-12-04 07:43:00 [facility] 2023-12-04 07:43:00 [facility]AM 2023-12-04 06:23:00 Jaquan Segundo [facility] ABG+COOX+NA+K+GLU+CA2+ 2023-12-04 06:08:00 Randy Saravia [facility] ABG+COOX+NA+K+GLU+CA2+ 2023-12-04 04:15:00 Randy Saravia [facility] TRANSFUSE PACKED RBC 2023-12-04 03:30:00 Stan Izquierdo [facility] TRANSFUSE PACKED RBC 2023-12-04 03:30:00 Stan Izquierdo [facility] TRANSFUSE PACKED RBC 2023-12-04 03:30:00 Stan Izquierdo [facility] ABG+COOX+NA+K+GLU+CA2+ 2023-12-04 03:00:00 Randy Saravia [facility] TRANSFUSE PACKED RBC 2023-12-04 02:51:00 Taylor Segundo [facility] TRANSFUSE PACKED RBC 2023-12-04 02:51:00 Sanya [facility] TRANSFUSE PACKED RBC 2023-12-04 02:51:00 Taylor Segundo [facility] PREPARE PACKED RBC 2023-12-04 02:36:27 Stan Izquierdo [facility] PREPARE PACKED RBC 2023-12-04 02:36:27 Stan Izquierdo [facility] PREPARE PACKED RBC 2023-12-04 02:36:27 Stan Izquierdo [facility] ARTERIAL LINE 2023-12-04 01:12:00 Bashir Carvalho [facility] ARTERIAL LINE 2023-12-04 01:12:00 Bashir Carvalho [facility] INTUBATION 2023-12-04 00:57:00 Bashir Carvalho [facility] INTUBATION 2023-12-04 00:57:00 Bashir Carvalho [facility] EXPLORATORY LAPAROTOMY 2023-12-04 00:33:00 Taylor Segundo [facility] [id number] - DE COLECTOMY PRTL W/SKIN LEVEL CECOST/COLOSTOMY 2023-12-04 00:33:00 Taylor Segundo [facility] FECAL DISIMPACTION 2023-12-04 00:33:00 Taylor Segundo [facility] EXPLORATORY LAPAROTOMY 2023-12-04 00:33:00 Taylor Segundo [facility] [id number] - DE COLECTOMY PRTL W/SKIN LEVEL CECOST/COLOSTOMY 2023-12-04 00:33:00 SanyaTaylor [facility] FECAL DISIMPACTION 2023-12-04 00:33:00 Ilarakeshjulissa Taylor Rodriguez [facility] EXPLORATORY LAPAROTOMY 2023-12-04 00:33:00 Ilarakeshjulissa Taylor [facility] [id number] - DE COLECTOMY PRTL W/SKIN LEVEL CECOST/COLOSTOMY 2023-12-04 00:33:00 IlaTaylor casanova [facility] FECAL DISIMPACTION 2023-12-04 00:33:00 Sanya Taylor Rodriguez [facility] CT ABDOMEN PELVIS W CONTRAST 2023-12-03 22:15:15 Yazmin [facility] CT ABDOMEN PELVIS W CONTRAST 2023-12-03 22:15:15 Yazmin [facility] CT ABDOMEN PELVIS W CONTRAST 2023-12-03 22:15:15 Yazmin [facility] AC PANEL 21 + LACTIC ACID 2023-12-03 20:56:00 Sa zia Alvarez [facility] AC PANEL 21 + LACTIC ACID 2023-12-03 20:56:00 Sa zia Alvarez [facility] AC PANEL 21 + LACTIC ACID 2023-12-03 20:56:00 Sa zia Alvarez [facility] CBC WITH DIFF 2023-12-03 19:40:00 Ko Alvarez [facility] BASIC METABOLIC PANEL (NA, K, CL, CO2, GLUCOSE, BUN, CREATININE, CA) 2023-12-03 19:40:00 Ko Alvarez [facility] HEPATIC FUNCTION PANEL ([id number]) (ALB,T.PRO,BILI T,BU/BC,ALT,AST,ALK PHOS) 2023-12-03 19:40:00 Ko Alvarez [facility] ACTIVATED PARTIAL THRMPLAS JESUS MANUEL 2023-12-03 19:40:00 Ko Alvarez [facility] PROTHROMBIN TIME / INR 2023-12-03 19:40:00 Doris Alvarez [facility] HEPATIC FUNCTION PANEL ([id number]) (ALB,T.PRO,BILI T,BU/BC,ALT,AST,ALK PHOS) 2023-12-03 19:40:00 Ko Alvarez [facility] BASIC METABOLIC PANEL (NA, K, CL, CO2, GLUCOSE, BUN, CREATININE, CA) 2023-12-03 19:40:00 Ko Alvarez [facility] CBC WITH DIFF 2023-12-03 19:40:00 Ko Alvarez [facility] PROTHROMBIN TIME / INR 2023-12-03 19:40:00 Doris Alvarez [facility] ACTIVATED PARTIAL THRMPLAS JESUS MANUEL 2023-12-03 19:40:00 Ko Alvarez [facility] HEPATIC FUNCTION PANEL ([id number]) (ALB,T.PRO,BILI T,BU/BC,ALT,AST,ALK PHOS) 2023-12-03 19:40:00 Ko Alvarez [facility] BASIC METABOLIC PANEL (NA, K, CL, CO2, GLUCOSE, BUN, CREATININE, CA) 2023-12-03 19:40:00 Ko Alvarez [facility] CBC WITH DIFF 2023-12-03 19:40:00 Ko Alvarez [facility] PROTHROMBIN TIME / INR 2023-12-03 19:40:00 Doris Alvarez [facility] ACTIVATED PARTIAL THRMPLAS JESUS MANUEL 2023-12-03 19:40:00 Ko Alvarez [facility] CT ABDOMEN PELVIS W CONTRAST 2023-12-03 18:33:18 See [facility] CT ABDOMEN PELVIS W CONTRAST 2023-12-03 18:33:18 See [facility] CT ABDOMEN PELVIS W CONTRAST 2023-12-03 18:33:18 See [facility] FIBRINOGEN 2023-12-03 16:27:00 Corey Carias [facility] ACTIVATED PARTIAL THRMPLAS JESUS MANUEL 2023-12-03 16:27:00 Corey Costello [facility] PROTHROMBIN TIME / INR 2023-12-03 16:27:00 Corey Dugan [facility] PROTHROMBIN TIME / INR 2023-12-03 16:27:00 Corey Dugan [facility] ACTIVATED PARTIAL THRMPLAS JESUS MANUEL 2023-12-03 16:27:00 Corey Costello [facility] FIBRINOGEN 2023-12-03 16:27:00 Corey Carias [facility] PROTHROMBIN TIME / INR 2023-12-03 16:27:00 Corey Dugan [facility] ACTIVATED PARTIAL THRMPLAS JESUS MANUEL 2023-12-03 16:27:00 Corey Costello [facility] FIBRINOGEN 2023-12-03 16:27:00 Corey Carias [facility] PREPARE PACKED RBC 2023-12-03 13:33:02 Taylor Segundo [facility] PREPARE PACKED RBC 2023-12-03 13:33:02 Taylor Segundo [facility] HB ABO GROUPING 2023-12-03 12:35:00 [facility] HB ABO GROUPING 2023-12-03 12:35:00 Taylor Segundo [facility] HB ABO GROUPING 2023-12-03 12:35:00 Taylor Segundo [facility] CBC WITH DIFF 2023-12-03 08:05:00 Feliberto Hoyt [facility] BASIC METABOLIC PANEL (NA, K, CL, CO2, GLUCOSE, BUN, CREATININE, CA) 2023-12-03 08:05:00 Feliberto Hoyt [facility] LACTIC ACID WHOLE BLOOD 2023-12-03 08:05:00 Feliberto Hoyt [facility] MAGNESIUM 2023-12-03 08:05:00 [facility] 2023-12-03 08:05:00 Feliberto Hoyt [facility] ACTIVATED PARTIAL THRMPLAS JESUS MANUEL 2023-12-03 08:05:00 [facility] HE[facility] FUNCTION [facility]EL ([id number]) (ALB,T.PRO,BILI T,BU/BC,ALT,AST,ALK PHOS) 2023-12-03 08:05:00 [facility] MAGNESIUM 2023-12-03 08:05:00 Evelina, [facility] HEPATIC FUNCTION PANEL ([id number]) (ALB,T.PRO,BILI T,BU/BC,ALT,AST,ALK PHOS) 2023-12-03 08:05:00 [facility] BASIC METABOLIC PANEL (NA, K, CL, CO2, GLUCOSE, BUN, CREATININE, CA) 2023-12-03 08:05:00 [facility] CBC WITH DIFF 2023-12-03 08:05:00 Evelina, [facility] PROTHROMBIN TIME / INR 2023-12-03 08:05:00 [facility] ACTIVATED PARTIAL THRMPLAS JESUS MANUEL 2023-12-03 08:05:00 Evel[facility], [facility] LACTIC ACID WHOLE BLOOD 2023-12-03 08:05:00 Evelina, [facility] MAGNESIUM 2023-12-03 08:05:00 Evelina, [facility] HEPATIC FUNCTION PANEL ([id number]) (ALB,T.PRO,BILI T,BU/BC,ALT,AST,ALK PHOS) 2023-12-03 08:05:00 [facility] BASIC METABOLIC PANEL (NA, K, CL, CO2, GLUCOSE, BUN, CREATININE, CA) 2023-12-03 08:05:00 [facility] CBC WITH DIFF 2023-12-03 08:05:00 Evelina, [facility] PROTHROMBIN TIME / INR 2023-12-03 08:05:00 [facility], [facility] ACTIVATED PARTIAL THRMPLAS JESUS MANUEL 2023-12-03 08:05:00 [facility] LACTIC ACID WHOLE BLOOD 2023-12-03 08:05:00 [facility] TRANSTHORACIC ECHO (TTE) COMPLETE W/ CONTRAST 2023-11-23 15:24:26 Radha [facility] TRANSTHORACIC ECHO (TTE) COMPLETE W/ CONTRAST 2023-11-23 15:24:26 Radha [facility] CBC WITH DIFF 2023-11-23 11:09:00 [facility]-11-23 11:09:00 Cherry Garcia [facility] BASIC METABOLIC PANEL (NA, K, CL, CO2, GLUCOSE, BUN, CREATININE, CA) 2023-11-23 11:09:00 Radha [facility] MAGNESIUM 2023-11-23 11:09:00 Radha [facility] BASIC METABOLIC PANEL (NA, K, CL, CO2, GLUCOSE, BUN, CREATININE, CA) 2023-11-23 11:09:00 Radha [facility] CBC WITH DIFF 2023-11-23 11:09:00 Radha [facility] HB ECG ROUTINE & RHYTHM STRIP 2023-11-22 14:50:[facility] RHYTHM STRIP 2023-11-22 14:50:13 Radha [facility] CBC WITH DIFF 2023-11-22 10:01:00 Jet Aguilar [facility] BASIC METABOLIC PANEL (NA, K, CL, CO2, GLUCOSE, BUN, CREATININE, CA) 2023-11-22 10:01:00 Jet Aguilar [facility] MAGNESIUM 2023-11-22 10:01:00 Jet Aguilar [facility] THYROID STIMULATING HORMONE 2023-11-22 10:01:00 Radha [facility] MAGNESIUM 2023-11-22 10:01:00 Jet Aguilar [facility] THYROID STIMULATING HORMONE 2023-11-22 10:01:00 Radha [facility] BASIC METABOLIC PANEL (NA, K, CL, CO2, GLUCOSE, BUN, CREATININE, CA) 2023-11-22 10:01:00 Jet Aguilar [facility] CBC WITH DIFF 2023-11-22 10:01:00 Jet Aguilar [facility] CBC WITHOUT DIFF 2023-11-21 16:46:00 Jet Aguilar [facility] CBC WITHOUT DIFF 2023-11-21 16:46:00 Jet Aguilar [facility] RETROPERITONEAL LIMITED 2023-11-21 12:03:00 [facility] RETROPERITONEAL LIMITED 2023-11-21 12:03:00 [facility] PREPARE PACKED RBC 2023-11-21 11:09:04 [facility] 2023-11-21 11:09:04 [facility] ABORH CONFIRMATION (LAB ONLY) 2023-11-21 10:16:00 [facility] ABORH CONFIRMATION (LAB ONLY) 2023-11-21 10:16:00 [facility] 2023-11-21 10:05:00 Thelma Davidson [facility] HB ABO GROUPING 2023-11-21 10:05:00 Thelma Davidson [facility] CBC WITHOUT DIFF 2023-11-21 09:34:00 King Davidson [facility] CBC WITHOUT DIFF 2023-11-21 09:34:00 King Davidson [facility] CBC WITH DIFF 2023-11-21 08:51:00 Mt Davidson [facility] BASIC METABOLIC PANEL (NA, K, CL, CO2, GLUCOSE, BUN, CREATININE, CA) 2023-11-21 08:51:00 Mt Davidson [facility] MAGNESIUM 2023-11-21 08:51:00 Mt Davidson [facility] MAGNESIUM 2023-11-21 08:51:00 [facility] BASIC METABOLIC PANEL (NA, K, CL, CO2, GLUCOSE, BUN, CREATININE, CA) 2023-11-21 08:51:00 Kirk Davidsonmehdi [facility] CBC WITH DIFF 2023-11-21 08:51:00 Kirk Davidsonmehdi [facility] LACTIC ACID WHOLE BLOOD 2023-11-21 04:02[facility]00 [facility] 2023-11-21 04:02:00 [facility] 2023-11-21 03:55:00 [facility] 2023-11-21 03:55:00 [facility] PROT[facility] / INR 2023-11-21 03:05:00 Lety [facility] ACTIVATED PARTIAL THRMPLAS JESUS MANUEL 2023-11-21 03:05:00 [facility] IRON [facility]EL 2023-11-21 03:05:00 Lety [facility] VITAMIN B12, LEVEL 2023-11-21 03:05:00 Kiera Davidson [facility] FOLATE 2023-11-21 03:05:00 Lety [facility] LACTATE DEHYDROGENASE 2023-11-21 03:05:00 [facility] BASIC METABOLIC PANEL (NA, K, CL, CO2, GLUCOSE, BUN, CREATININE, CA) 2023-11-21 03:05:00 [facility] Davidson [facility] ETHANOL 2023-11-21 03:05:00 [facility] LACTATE DEHYDROGENASE 2023-11-21 03:05:00 Lety [facility] VITAMIN B12, LEVEL 2023-11-21 03:05:00 Kiera Davidson [facility] FOLATE 2023-11-21 03:05:00 Lety, Anirudha [facility] BASIC METABOLIC PANEL (NA, K, CL, CO2, GLUCOSE, BUN, CREATININE, CA) 2023-11-21 03:05:00 [facility] Davidson [facility] IRON PANEL 2023-11-21 03:05:00 [facility] Davidson [facility] ETHANOL 2023-11-21 03:05:00 Lety cristy [facility] PROTHROMBIN TIME / INR 2023-11-21 03:05:[address] ACTIVATED PARTIAL THRMPLAS JESUS MANUEL 2023-11-21 03:05:00 Lety [facility] URINE CULTURE 2023-11-21 02:54:00 Lety [facility] URINE CULTURE 2023-11-21 02:54:00 Lety [facility] POCT GLUCOSE (AUTOMATED) 2023-11-21 01:29:00 Stefanie Johnson [facility] POCT GLUCOSE (AUTOMATED) 2023-11-21 01:29:00 Stefanie Johnson [facility] POCT GLUCOSE (AUTOMATED) 2023-11-20 23:13:00 Joleen Chinchilla [facility] POCT GLUCOSE (AUTOMATED) 2023-11-20 23:13:00 Joleen Chinchilla [facility] INFLUENZA A/B RSV COVID NAAT 2023-11-20 22:31:00 Pablo Chinchilla [facility] LAB ONLY COVID INTERPRETATION 2023-11-20 22:31:00 Pablo Chinchilla [facility] INFLUENZA A/B RSV COVID NAAT 2023-11-20 22:31:00 Pablo Chinchilla [facility] LAB ONLY COVID INTERPRETATION 2023-11-20 22:31:00 Pablo Chinchilla [facility] POCT GLUCOSE(AGE >30DAYS) 2023-11-20 21:25:00 Pablo Chinchilla [facility] POCT GLUCOSE(AGE >30DAYS) 2023-11-20 21:25:00 Pablo Chinchilla [facility] POCT GLUCOSE (AUTOMATED) 2023-11-20 21:21:00 Joleen Chinchilla [facility] POCT GLUCOSE (AUTOMATED) 2023-11-20 21:21:00 Joleen Chinchilla [facility] URINALYSIS 2023-11-20 21:14:00 Pablo Chinchilla [facility] URINE DRUG (IMMUNOASSAY) - COMPREHENSIVE DRUG SCREEN 2023-11-20 21:14:00 [place] [facility] URINE DRUG (IMMUNOASSAY) - COMPREHENSIVE DRUG SCREEN 2023-11-20 21:14:00 [place] [facility] URINALYSIS 2023-11-20 21:14:00 Pablo Chinchilla [facility] CT ABDOMEN PELVIS WO CONTRAST 2023-11-20 19:45:00 Pablo Chinchilla [facility] CT ABDOMEN PELVIS WO CONTRAST 2023-11-20 19:45:00 Pablo Chinchilla [facility] COMP. METABOLIC PANEL ([id number]) 2023-11-20 18:25:00 Pablo Chinchilla [facility] TROPONIN I 2023-11-20 18:25:00 Pablo Chinchilla [facility] LIPASE 2023-11-20 18:25:00 Pablo Chinchilla [facility] MAGNESIUM 2023-11-20 18:25:00 Pablo Chinchilla [facility] PHOSPHORUS 2023-11-20 18:25:00 [facility] FERRITIN SERUM 2023-11-20 18:25:00 [place] [facility] PHOSPHORUS 2023-11-20 18:25:00 [facility] LIPASE 2023-11-20 18:25:00 Pablo Chinchilla [facility] MAGNESIUM 2023-11-20 18:25:00 Pablo Chinchilla [facility] FERRITIN SERUM 2023-11-20 18:25:00 [facility] TROPONIN I 2023-11-20 18:25:00 Pablo Chinchilla [facility] COMP. METABOLIC PANEL ([id number]) 2023-11-20 18:25:00 Pablo Chinchilla [facility] LACTIC ACID WHOLE BLOOD 2023-11-20 17:16:00 Kerry Chinchilla [facility] LACTIC ACID WHOLE BLOOD 2023-11-20 17:16:00 Kerry Chinchilla [facility] CBC WITH DIFF 2023-11-20 17:15:00 Pablo Chinchilla [facility] RETICULOCYTES AUTOMATED 2023-11-20 17:15:00 [facility] CBC WITH DIFF 2023-11-20 17:15:00 Pablo Chinchilla [facility] RETICULOCYTES AUTOMATED 2023-11-20 17:15:00 [facility] HB ECG ROUTINE & RHYTHM STRIP 2023-11-20 16:55:53 Pablo Chinchilla [facility] HB ECG ROUTINE & RHYTHM STRIP 2023-11-20 16:55:53 Pablo Chinchilla [facility] Encounters Start Date/Time End Date/Time Encounter Type Admission Type Attending Clinicians Care Facility Care Department Encounter ID Source 2024-01-01 00:00:00 2024-01-01 15:07:16 Transition of Care Cinthya Andrade Laura [facility] 1..840.114 350.1.13.10 4.2.7.2.686 [id number] [facility] 2023-12-03 02:17:00 2023-12-29 17:30:00 Hospital Encounter Jr Saravia Joshua [facility] ([facility]) 1..840.114 350.1.13.10 4.2.7.2.686 [id number] [facility] 2023-12-03 19:47:00 2023-12-04 02:11:00 Anesthesia Event Wilton, Kentrell Carvalho, Bashir 1.2.840.1 90646.1.1 3.104.2.7 .3.522387 .8 [id number] [facility] 2023-12-03 19:25:00 2023-12-03 22:35:00 Surgery IlajocelyneTaylor [facility] 1.2.840.114 350.1.13.10 4.2.7.2.686 [id number] [facility] 2023-12-03 13:33:01 2023-12-03 13:33:01 Anesthesia Event Lopez Russ 1.2.840.1 43012.1.1 3.104.2.7 .3.309267 .8 [id number] [facility] 2023-12-03 00:00:00 2023-12-03 00:00:00 Travel 1.2.840.1 52366.1.1 3.104.2.7 .3.707952 .8 1.2.840.114 350.1.13.10 4.2.7.3.698 [id number] [facility] 2023-11-28 00:00:00 2023-11-28 10:13:02 Telephone Ivan Rogers 1.2.840.1 77225.1.1 3.104.2.7 .3.398048 .8 [id number] [facility] 2023-11-24 00:00:00 2023-11-24 11:30:21 Transition of Care Daisy Nelson 1.2.840.1 13487.1.1 3.104.2.7 .3.173000 .8 [id number] [facility] 2023-11-20 11:14:00 2023-11-23 19:45:00 Inpatient X RICHELLE, ALEX CAMP [facility] YARELY [id number] [facility] 2023-11-20 11:14:00 2023-11-23 19:45:00 Hospital Encounter Pablo ChinchillaStefanie jasmine Leah Elizabeth 1.2.840.1 55312.1.1 3.104.2.7 .3.129973 .8 [id number] [facility] 2023-11-20 00:00:00 2023-11-20 00:00:00 Travel 1.2.840.1 27356.1.1 3.104.2.7 .3.556244 .8 1.2.840.114 350.1.13.10 4.2.7.3.698 084.8 [id number] [facility] Results Test Description Test Time Test Comments [...] theupper pelvis is seen. Dependent subcutaneous edema. [facility]2023-12[facility]14 03:40:13* Test Item Value Reference Range Interpretation Comme [facility] APTT Patient (test code = 3173-2) 40 26-36 H Lab Interpretation (test cod e = 84520-1) [facility]2023-12-12 20:11:22* Test Item Value Reference Range Interpretation Comme [facility] APTT Patient (test code = 3173-2) 55 26-36 H Lab Interpretation (test cod e = 57854-6) [facility]OOX+NA+K+GLU+CA2+2023-12-12 02:38:42* Test Item Value Reference Range Interpretation Comme [facility] PH (test code = 2) 7.25 7.35-7.45 L PCO2 (test code = 7293452322) 39 35-45 PO2 (test code = 5880816283) 404 80-100 H HCO3 (test code = 2848211287) 17 22-26 L BE (test code = 1717342322) -9.8 -3.0-3.0 L THB (test code = 8902494926) 11.7 g/dL 12.0-16.0 L %O2HB (test code = 9693091304) 98.2 % 94.0-99.0 %COHB ART (test code = 5894097433) 1.4 % 0.0-1.5 %METHB ART (test code = 0683469288) 0.3 % 0.4-1.5 L VOL%O2 ART (test code = 8764718829) 17.2 % 15.0-23.0 QUES NA (test code = 5205428635) 133 mmol/L 135-145 L K+ (test code = 4409710185) 5.0 mmol/L 3.5-5.0 AC CA IONZ (test code = 0162258635) 4.70 mg/dL 4.50-5.30 GLUCOSE (test code = 8950798066) 125 mg/dL 70-110 H Lab Interpretation (test cod e = 14592-0) [facility]+NA+K+GLU+CA2+2023-12-12 02:38:22* Test Item Value Reference Range Interpretation Comme nts PH (test code = 2) 7.29 7.35-7.45 L PCO2 (test code = 9777181537) 41 35-45 PO2 (test code = 7142898268) 342 80-100 H HCO3 (test code = 5241202173) 19 22-26 L BE (test code = 2371807994) -7.1 -3.0-3.0 L THB (test code = 4258677162) 11.3 g/dL 12.0-16.0 L %O2HB (test code = 5456830552) 98.7 % 94.0-99.0 %COHB ART (test code = 6983341999) 1.0 % 0.0-1.5 %METHB ART (test code = 5074372887) 0.3 % 0.4-1.5 L VOL%O2 ART (test code = 1117213780) 16.6 % 15.0-23.0 QUES NA (test code = 8525206911) 135 mmol/L 135-145 K+ (test code = 2792206740) 4.9 mmol/L 3.5-5.0 AC CA IONZ (test code = 5484357280) 4.70 mg/dL 4.50-5.30 GLUCOSE (test code = 9110395269) 130 mg/dL 70-110 H Lab Interpretation (test cod e = 85793-1) [facility]+NA+K+GLU+CA2+2023-12-12 02:37:06* Test Item Value Reference Range Interpretation Comme nts PH (test code = 2) 7.35 7.35-7.45 PCO2 (test code = 2792731248) 37 35-45 PO2 (test code = 5667939079) 461 80-100 H HCO3 (test code = 0016215074) 20 22-26 L BE (test code = 6615316974) -5.0 -3.0-3.0 L THB (test code = 1254535123) 8.1 g/dL 12.0-16.0 LL %O2HB (test code = 8280426493) 98.2 % 94.0-99.0 %COHB ART (test code = 1796696836) 1.2 % 0.0-1.5 %METHB ART (test code = 2648700624) 0.3 % 0.4-1.5 L VOL%O2 ART (test code = 8325282118) 12.5 % 15.0-23.0 L QUES NA (test code = 0936812509) 133 mmol/L 135-145 L K+ (test code = 7698725918) 4.9 mmol/L 3.5-5.0 AC CA IONZ (test code = 6500650178) 4.70 mg/dL 4.50-5.30 GLUCOSE (test code = 3914860278) 119 mg/dL 70-110 H Lab Interpretation (test cod e = 48342-9) [facility] 21:16:12* Test Item Value Reference Range Interpretation Comme [facility] APTT Patient (test code = 3173-2) 38 26-36 H Lab Interpretation (test cod e = 64816-0) [facility]normal [facility] HospitalProthrombin Time / [id number] 21:13:33* Test Item Value Reference Range Interpretation Comme [facility] PROTIME PATIENT (test code = 5964-2) 32.4 10.1-12.6 H INR (test code = 6301-6) 3.0 Normal INR <1.1; Warfarin Therapeutic range 2.0 to 3.0 or 2.5 to 3.5, depending upon the indications. Lab Interpretation (test code = 05437-3) Abnormal [facility] with [id number] 09:14:16* Test Item Value Reference Range Interpretation [...] g/dL 31.6-35.1 L RDW-SD (test code = 60010-1) 59.1 fL 39.0-49.9 H RDW-CV (test code = 788-0) 21.9 % 12.0-15.5 H PLT (test code = 777-3) 367 166-358 H MPV (test code = 92452-2) 9.2 fL 9.5-12.9 L NRBC/100 WBC (test code = 3705729659) 0.5 0.0-10.0 NRBC x10^3 (test code = 0207873010) 0.07 See_Comment [Automated message] The system which generated this result transmitted reference range: 10*3/?L. The reference range was not used to interpret this result as normal/abnormal. GRAN MAT (NEUT) % (test code = 770-8) 79.5 % IMM GRAN % (test code = 9372094260) 5.30 % LYMPH % (test code = 736-9) 10.6 % MONO % (test code = 5905-5) 4.1 % EOS % (test code = 713-8) 0.4 % BASO % (test code = 706-2) 0.1 % GRAN MAT x10^3(ANC) (test code = 9799080029) 10.75 10*3/uL 1.88-7.09 H IMM GRAN x10^3 (test code = 7332799476) 0.72 10*3/uL 0.00-0.06 H LYMPH x10^3 (test code = 731-0) 1.43 10*3/uL 1.32-3.29 MONO x10^3 (test code = 742-7) 0.55 10*3/uL 0.33-0.92 EOS x10^3 (test code = 711-2) 0.05 10*3/uL 0.03-0.39 BASO x10^3 (test code = 704-7) 0.01-0.07 Lab Interpretation (test code = 32503-5) [facility]2024-[facility]-16 08:56:49* Test Item Value Reference Range Interpretation Comme nts MAGNESIUM (test code = 0311991606) 1.8 mg/dL 1.7-2.4 Lab Interpretation (test cod e = 99865-7) Normal [facility]2024-09-16 08:56:49* Test Item Value Reference Range Interpretation Comme nts PHOSPHORUS (test code = 4825191653) 2.4 mg/dL 2.5-5.0 L Lab Interpretation (test cod e = 91373-8) [facility]normal [facility] Metabolic Panel (NA, K, CL, CO2, GLUCOSE, BUN, CREATININE, CA)2023-12-11 08:56:49* Test Item Value Reference Range Interpretation Comme nts NA (test code = 8001795222) 141 mmol/L 135-145 K (test code = 0058280032) 3.1 mmol/L 3.5-5.0 L CL (test code = 6359795186) 112 mmol/L 98-108 H CO2 TOTAL (test code = 8131942098) 19 mmol/L 23-31 L AGAP (test code = 3637690218) 10 2-16 BUN (test code = 6041256971) 29 mg/dL 7-23 H GLUCOSE (test code = 9907035781) 126 mg/dL 70-110 H CREATININE (test code = 2160-0) 0.72 mg/dL 0.50-1.04 CALCIUM (test code = 9968577545) 8.3 mg/dL 8.6-10.6 L eGFR (test code = 65689-3) 87.3 mL/min/1.73m2 CKD-EPI eGFR (2020). Assuming creatinine has been stable day-to-day for at least three months, the eGFR indicates Category G2 (60 - 89 mL/min/1.73 m2) Lab Interpretation (test code = 24371-4) [facility] [id number] 04:11:52ORDERING PHYSICIAN: TONEY ELKINS HISTORY: respiratory monitoring TECHNIQUE: AP view of the chest COMPARISON: XR CHEST 1 VW on DOS: 12/09/23 FINDINGS: Frontal view of the chest is obtained in a rotated position. Worsening basilar predominant pulmonary opacities and suspected small bilateral pleuraleffusions. No pneumothorax. ? ? ?Stable prominence of the cardiac silhouette. Aortic atherosclerosis. The osseous structures appear unchanged.[facility] with [id number] 09:00:36* Test Item Value Reference Range Interpretation [...] 32.3 g/dL 31.6-35.1 RDW-SD (test code = 62450-4) 60.0 fL 39.0-49.9 H RDW-CV (test code = 788-0) 22.1 % 12.0-15.5 H PLT (test code = 777-3) 398 166-358 H MPV (test code = 54626-7) 9.0 fL 9.5-12.9 L NRBC/100 WBC (test code = 7633265702) 0.5 0.0-10.0 NRBC x10^3 (test code = 8952589787) 0.07 See_Comment [Automated message] The system which generated this result transmitted reference range: 10*3/?L. The reference range was not used to interpret this result as normal/abnormal. GRAN MAT (NEUT) % (test code = 770-8) 79.6 % IMM GRAN % (test code = 7769968089) 5.90 % LYMPH % (test code = 736-9) 10.4 % MONO % (test code = 5905-5) 3.9 % EOS % (test code = 713-8) 0.1 % BASO % (test code = 706-2) 0.1 % GRAN MAT x10^3(ANC) (test code = 7225552954) 11.69 10*3/uL 1.88-7.09 H IMM GRAN x10^3 (test code = 0611807746) 0.87 10*3/uL 0.00-0.06 H LYMPH x10^3 (test code = 731-0) 1.53 10*3/uL 1.32-3.29 MONO x10^3 (test code = 742-7) 0.58 10*3/uL 0.33-0.92 EOS x10^3 (test code = 711-2) 0.03-0.39 L BASO x10^3 (test code = 704-7) 0.01-0.07 TARGET CELLS (test code = 89492-3) 2+ See_Comment A [Automated message] The system which generated this result transmitted reference range: (none). The reference range was not used to interpret this result as normal/abnormal. Lab Interpretation (test code = 11472-0) [facility]normal [facility]2024-09-15 08:41:44* Test Item Value Reference Range Interpretation Comme nts MAGNESIUM (test code = 2831509560) 2.0 mg/dL 1.7-2.4 Lab Interpretation (test cod e = 39366-3) Normal [facility]2024-09-15 08:41:44* Test Item Value Reference Range Interpretation Comme nts PHOSPHORUS (test code = 0850285414) 3.5 mg/dL 2.5-5.0 Lab Interpretation (test cod e = 55220-2) Normal [facility] (NA, K, CL, CO2, GLUCOSE, BUN, CREATININE, CA)2023-12-10 08:41:44* Test Item Value Reference Range Interpretation Comme nts NA (test code = 0588958687) 139 mmol/L 135-145 K (test code = 2072496215) 3.3 mmol/L 3.5-5.0 L CL (test code = 1796798772) 112 mmol/L 98-108 H CO2 TOTAL (test code = 4238444332) 19 mmol/L 23-31 L AGAP (test code = 1405276561) 8 2-16 BUN (test code = 0119777358) 38 mg/dL 7-23 H GLUCOSE (test code = 6446078071) 135 mg/dL 70-110 H CREATININE (test code = 2160-0) 1.02 mg/dL 0.50-1.04 CALCIUM (test code = 8013536643) 8.3 mg/dL 8.6-10.6 L eGFR (test code = 40508-6) 57.5 mL/min/1.73m2 CKD-EPI eGFR (2020). Assuming creatinine has been stable day-to-day for at least three months, the eGFR indicates Category G3a (45 - 59 mL/min/1.73 m2) Lab Interpretation (test code = 44262-8) [facility] [id number] 22:37:49EXAM: XR KUB, XR CHEST 1 12/08/2023 [...] lbowel obstruction. Paucity of gas in the rectum.[facility] 1 [id number] 22:37:49EXAM: XR KUB, XR CHEST 1 VW [...] smallbowel obstruction. Paucity of gas in the rectum.[facility] with [id number] 10:34:43* Test Item Value Reference Range Interpretation [...] 32.3 g/dL 31.6-35.1 RDW-SD (test code = 49242-8) 59.7 fL 39.0-49.9 H RDW-CV (test code = 788-0) 22.6 % 12.0-15.5 H PLT (test code = 777-3) 478 166-358 H MPV (test code = 98551-8) 9.3 fL 9.5-12.9 L NRBC/100 WBC (test code = 8884484094) 0.4 0.0-10.0 NRBC x10^3 (test code = 0838731137) 0.09 See_Comment [Automated message] The system which generated this result transmitted reference range: 10*3/?L. The reference range was not used to interpret this result as normal/abnormal. GRAN MAT (NEUT) % (test code = 770-8) 81.2 % IMM GRAN % (test code = 9480150216) 6.60 % LYMPH % (test code = 736-9) 8.7 % MONO % (test code = 5905-5) 3.1 % EOS % (test code = 713-8) 0.1 % BASO % (test code = 706-2) 0.3 % GRAN MAT x10^3(ANC) (test code = 1621719595) 16.97 10*3/uL 1.88-7.09 H IMM GRAN x10^3 (test code = 7454268967) 1.39 10*3/uL 0.00-0.06 H LYMPH x10^3 (test [...] as normal/abnormal. TARGET CELLS (test code = 18375-3) 2+ See_Comment A [Automated message] The system which generated this result transmitted reference range: (none). The reference range was not used to interpret this result as normal/abnormal. Lab Interpretation (test code = 66256-0) [facility]normal [facility]2024-09-14 10:08:11* Test Item Value Reference Range Interpretation Comme nts MAGNESIUM (test code = 7166981311) 1.9 mg/dL 1.7-2.4 Lab Interpretation (test cod e = 34567-9) Normal [facility]2024-09-14 10:08:11* Test Item Value Reference Range Interpretation Comme nts PHOSPHORUS (test code = 4168169347) 4.4 mg/dL 2.5-5.0 Lab Interpretation (test cod e = 71286-2) Normal [facility] (NA, K, CL, CO2, GLUCOSE, BUN, CREATININE, CA)2023-12-09 10:08:11* Test Item Value Reference Range Interpretation Comme nts NA (test code = 6945156968) 139 mmol/L 135-145 K (test code = 7502093640) 3.3 mmol/L 3.5-5.0 L CL (test code = 4944722169) 108 mmol/L 98-108 CO2 TOTAL (test code = 8557112691) 17 mmol/L 23-31 L AGAP (test code = 3670895438) 14 2-16 BUN (test code = 3964774769) 38 mg/dL 7-23 H GLUCOSE (test code = 3330620698) 103 mg/dL 70-110 CREATININE (test code = 2160-0) 1.30 mg/dL 0.50-1.04 H CALCIUM (test code = 8466488176) 8.3 mg/dL 8.6-10.6 L eGFR (test code = 87431-3) 43.0 mL/min/1.73m2 CKD-EPI eGFR (2020). Assuming creatinine has been stable day-to-day for at least three months, the eGFR indicates Category G3b (30 - 44 mL/min/1.73 m2) Lab Interpretation (test code = 95832-3) [facility] W [id number] 23:07:14CT ABDOMEN PELVIS W CONTRAST 12/08/2023 10:55 [...] wallsurgical wound, partially visualized. Dependent subcutaneous edema isnoted.[facility] [id number] 19:22:20Study: Single view chest. Ordering Physician: DONA ELKINS Date: 12/08/2023 4:00 AM History:respiratory monitoring COMPARISON: 12/07/2023 Findings: Single frontal view chest demonstrates mild cardiomegaly. Patchyleft basilar atelectasis is identified. The lungs are otherwise clearwithout infiltrate, pleural effusion or pneumothorax. The right internaljugular venous catheter terminates over the distal superior vena cava. [facility] with [id number] 09:56:35* Test Item Value Reference Range Interpretation [...] 31.6 g/dL 31.6-35.1 RDW-SD (test code = 70497-2) 59.4 fL 39.0-49.9 H RDW-CV (test code = 788-0) 22.2 % 12.0-15.5 H PLT (test code = 777-3) 444 166-358 H MPV (test code = 05046-3) 8.9 fL 9.5-12.9 L NRBC/100 WBC (test code = 6659007098) 0.5 0.0-10.0 NRBC x10^3 (test code = 4795054499) 0.08 See_Comment [Automated message] The system which generated this result transmitted reference range: 10*3/?L. The reference range was not used to interpret this result as normal/abnormal. GRAN MAT (NEUT) % (test code = 770-8) 79.7 % IMM GRAN % (test code = 8071137806) 5.90 % LYMPH % (test code = 736-9) 9.8 % MONO % (test code = 5905-5) 4.2 % EOS % (test code = 713-8) 0.2 % BASO % (test code = 706-2) 0.2 % GRAN MAT x10^3(ANC) (test code = 4886694482) 13.21 10*3/uL 1.88-7.09 H IMM GRAN x10^3 (test code = 1849818384) 0.98 10*3/uL 0.00-0.06 H LYMPH x10^3 (test code = 731-0) 1.63 10*3/uL 1.32-3.29 MONO x10^3 (test code = 742-7) 0.69 10*3/uL 0.33-0.92 EOS x10^3 (test code = 711-2) 0.03 10*3/uL 0.03-0.39 BASO x10^3 (test code = 704-7) 0.03 10*3/uL 0.01-0.07 Lab Interpretation (test code = 89082-0) [facility]normal [facility]2024-09-13 09:36:27* Test Item Value Reference Range Interpretation Comme nts MAGNESIUM (test code = 7512632358) 2.0 mg/dL 1.7-2.4 Lab Interpretation (test cod e = 59332-3) Normal [facility]2024-09-13 09:36:27* Test Item Value Reference Range Interpretation Comme nts PHOSPHORUS (test code = 4954943015) 4.6 mg/dL 2.5-5.0 Lab Interpretation (test cod e = 21342-3) Normal [facility] (NA, K, CL, CO2, GLUCOSE, BUN, CREATININE, CA)2023-12-08 09:36:27* Test Item Value Reference Range Interpretation Comme nts NA (test code = 3024061694) 138 mmol/L 135-145 K (test code = 3360155420) 3.2 mmol/L 3.5-5.0 L CL (test code = 5815542064) 108 mmol/L 98-108 CO2 TOTAL (test code = 6950668304) 19 mmol/L 23-31 L AGAP (test code = 2336093376) 11 2-16 BUN (test code = 6150537726) 38 mg/dL 7-23 H GLUCOSE (test code = 4938497414) 92 mg/dL 70-110 CREATININE (test code = 2160-0) 1.41 mg/dL 0.50-1.04 H CALCIUM (test code = 8031472773) 7.9 mg/dL 8.6-10.6 L eGFR (test code = 90426-4) 39.0 mL/min/1.73m2 CKD-EPI eGFR (2020). Assuming creatinine has been stable day-to-day for at least three months, the eGFR indicates Category G3b (30 - 44 mL/min/1.73 m2) Lab Interpretation (test code = 96312-3) [facility] [id number] 14:51:27Study: Single view chest. Ordering Physician: DONA ELKINS Date: 12/07/2023 4:00 AM History:respiratory monitoring COMPARISON: 12/06/2023 Findings: Single frontal view chest demonstrates a normal heart size.Persistent left basilar airspace opacity is identified which may resultfrom atelectasis or pneumonia. Small pleural effusions persist. Nopneumothorax is defined. Endotracheal tube terminates 5.1 cm above thecarina. The right internal jugular venous catheter terminates over thedistal superiorvena cava.[facility] Cbc with [id number] 09:34:07* Test Item Value Reference Range Interpretation [...] 32.3 g/dL 31.6-35.1 RDW-SD (test code = 20257-5) 58.8 fL 39.0-49.9 H RDW-CV (test code = 788-0) 21.4 % 12.0-15.5 H PLT (test code = 777-3) 409 166-358 H MPV (test code = 35601-3) 9.2 fL 9.5-12.9 L NRBC/100 WBC (test code = 8293538182) 0.4 0.0-10.0 NRBC x10^3 (test code = 0820303461) 0.06 See_Comment [Automated message] The system which generated this result transmitted reference range: 10*3/?L. The reference range was not used to interpret this result as normal/abnormal. GRAN MAT (NEUT) % (test code = 770-8) 77.3 % IMM GRAN % (test code = 4782988853) 6.80 % LYMPH % (test code = 736-9) 11.4 % MONO % (test code = 5905-5) 4.3 % EOS % (test code = 713-8) 0.1 % BASO % (test code = 706-2) 0.1 % GRAN MAT x10^3(ANC) (test code = 0016449522) 12.30 10*3/uL 1.88-7.09 H IMM GRAN x10^3 (test code = 8383641710) 1.09 10*3/uL 0.00-0.06 H LYMPH x10^3 (test code = 731-0) 1.81 10*3/uL 1.32-3.29 MONO x10^3 (test code = 742-7) 0.69 10*3/uL 0.33-0.92 EOS x10^3 (test code = 711-2) 0.03-0.39 L BASO x10^3 (test code = 704-7) 0.01-0.07 Lab Interpretation (test code = 53073-1) Abnormal [facility] Metabolic Panel (NA, K, CL, CO2, GLUCOSE, BUN, CREATININE, CA)2023-12-07 09:19:04* Test Item Value Reference Range Interpretation Comme nts NA (test code = 0405779308) 136 mmol/L 135-145 K (test code = 2384921052) 3.3 mmol/L 3.5-5.0 L CL (test code = 0476942686) 106 mmol/L 98-108 CO2 TOTAL (test code = 9949556038) 18 mmol/L 23-31 L AGAP (test code = 8580995182) 12 2-16 BUN (test code = 9322211343) 41 mg/dL 7-23 H GLUCOSE (test code = 5433199205) 102 mg/dL 70-110 CREATININE (test code = 2160-0) 1.96 mg/dL 0.50-1.04 H CALCIUM (test code = 6421091533) 7.9 mg/dL 8.6-10.6 L eGFR (test code = 31402-8) 26.3 mL/min/1.73m2 CKD-EPI eGFR (2020). Assuming creatinine has been stable day-to-day for at least three months, the eGFR indicates Category G4 (15 - 29 mL/min/1.73 m2) Lab Interpretation (test code = 24528-4) [facility] Test Item Value Reference Range Interpretation Comme nts MAGNESIUM (test code = 4339157454) 2.0 mg/dL 1.7-2.4 Lab Interpretation (test cod e = 38877-5) [facility]:19:04* Test Item Value Reference Range Interpretation Comme nts PHOSPHORUS (test code = 0805967486) 4.7 mg/dL 2.5-5.0 Lab Interpretation (test cod e = 32315-7) [facility] + Lactic Uvnk6686-88-13 08:32:46* Test Item Value Reference Range Interpretation Comme nts PH (test code = 2) 7.41 7.35-7.45 PCO2 (test code = 6132367753) 29 35-45 L PO2 (test code = 8905297129) 305 80-100 H HCO3 (test code = 9027559901) 18 22-26 L BE (test code = 7201015046) -5.8 -3.0-3.0 L THB (test code = 4691787359) 9.3 g/dL 12.0-16.0 L %O2HB (test code = 8854823129) 98.5 % 94.0-99.0 %COHB ART (test code = 9147641954) 0.9 % 0.0-1.5 %METHB ART (test code = 2638192477) 0.3 % 0.4-1.5 L VOL%O2 ART (test code = 6758530247) 13.7 % 15.0-23.0 L NA (test code = 3704757868) 138 mmol/L 135-145 K+ (test code = 2541546389) 3.4 mmol/L 3.5-5.0 L AC CA IONZ (test code = 2920890965) 4.40 mg/dL 4.50-5.30 L GLUCOSE (test code = 2779153888) 97 mg/dL 70-110 LACTIC ACID (test code = 8263869865) 1.85 mmol/L 0.50-2.20 Lab Interpretation (test cod e = 98018-4) [facility]normal [facility] Jrxe3085-73-93 22:05:08* Test Item Value Reference Range Interpretation Comme nts Case Report (test code = 9782454042) Surgical Pathology ?Case: [id number] ? Authorizing Provider: ?Taylor Segundo MD ?Collected: ? 12/04/2023 0123 ?Ordering Location: ? ? [facility] OR ? Received: ?12/04/2023 08 ? Department ? Pathologist: ? Sallie Piper MD ? Specimen: ? ?LARGE INTESTINE, SIGMOID COLON, sigmoid colon ? Final Diagnosis (test code = 0977531661) n2hikRQjSAIje2vtJTZpaT FuZzEwMzNcZnRuYmpcdWMx KXqpafTpTEeiyCerHBI9QF ZqPE3igCuzhEm9qCjpJKFe hzC3lXWmGNkbw0hzOLC7j1 sxqedaPSCdVTlcGl7elFAf yBasUqFdWEDgVRi9yT55WI NpgJ5doDBhPYnzazFtUVGo G3QwHS7hHBhagRDlMPN7XG RbQVK8RNjxwkDgquX7TOyv gJNpWaC7Z94laPWoAXN5LL UdZENauCFwZLAgCCK2ATYm mIDsY0giOBNmHS5edopwFD gdZHmmSBMayIP9AULhnKOj U7PoKHThPCorPKDdlmw6Dd HzGh7qvWYykYhbPObfZGMw XHBsYWluXGZzMjBccGFyIE HbDGDHEP4QLXXUIErCJ3hQ RPQBWSkKVD4YFAvpKsSJVB DRTP3XRvdmPCMsX5ZgBYOy O1UyAFIsXQ8aZOb+LSBESV SUZpUBR9RHE9QMCaIJAVEZ IEFDVVRFIERJVkVSVElDVU dSHVaEAJVDYICEA9ZUDRPS NJTPG3xYDYIbePUoYRHdmk x+IL5fLSNAJ6ZMNLeGWaVK MBUCGX0ZTLFWHEETPCUgiE WdMKLvIOgbuGFzeJL6BYdk YXJccGFyXGZzMjIgTWFocm VlbiBIdXNzYWluLCBNQkJT OBQ5VlDnFwRcStNrDKP0Qs EdOG3qgTLiDWHuYhUfmRQh tAnchqLrTEjwm0TsF4QiLn AwMFxhbnNpXGRlZmxhbmcx PJDwZXU6zxQwNVAvDRjaEA ZpFThdXz5ndXXufPoeSeHj SZFdh7mlqtYWIMtbCkMsB7 71XIKqJSzyo4bsy0AbKRWj mZEor9A6EUIRjqaunXa1d9 azTaLiJaG1kBUgTDffX0si njDijMZzK2ZfqZIiaPk6nE srE02pt2C8TqocP8kjPQOo ECOcF0YoCI9gGONjBhr5NW Q9TCB4JAMhBAJaB8XwXC5z LXUigLVjEWm0n2qckBwoEG JqXAL5o5vwGUlayfH5CO8f hh2bpSq2y7uimmSvZUSpIW PhqAGABVLxN1TadDzyMv2t fCh3xLmgIghdLUH0Hfc0HF 1rws08swk5pYgwZNXwqfov LjN6HAflTANgjujkKLj2KR raUKDuoPC8PSTggIWoT5Od ZWOqRS0ohag4VMG9SOdeKU KmJnU3OEPprIYkVINsqCmq KJper659JRJ0XsCuKV5qB2 Cqe6V5gN8opRWsJGYqcORt FlLtSUZyjk3rzZErIFfso0 TiZOE1epR5sSUrtVHqTLBf FR03Otcdt9MrYagyGUP3EC VtdkIsb7Zhc6prRfNadgLs F8tzA7ZfMRUmVRZlNDQwQg OnnnQjo0Dow1CllJEosSd4 w6vuNNFxXFOgmYprp2zwNO I2VMLbR8F8gACjh6muTRku OHJsuHS4viT2HYLdzWStO9 XnjI6xISWfUE9aqcx9a9hn CIF1AXuoKKOmKsI8zsJ5NO OtcJZxGQCrfWhoETdxa880 RIG4VgOdWNLgs0XrC2QfjV yfY52jcPnyG14cADFzcVit sN6dhPaaeK6rZqPyFbQyDE xxbFxwbGFpblxmMVxmczIw UQskxmzeIQRuFEmhM8yaHh TiQLNraElhXGwjl0UtAXZp XGNmMlxmczIwXHBhciBJIG aubgIstNKnl33bABfxyUAb YUFaOKmxUOPjzGwdv3JtK8 tePA7dB2NonUPsapVohgAy POcjBLLrp1u8iZDzkDamq4 OruPBiXD48ycZtDVKwQWL1 XVOcb7cyEJ34mhwvZhKtyJ 79dlIkciUxHPEzf5dbY1ps cWIet4Shf5XtorPsOAnqh6 UsHT6euNQhiaujdOK3STMw iUHuibGlfuH6uWapZIByaX 7pbN2lpWhrlF5oUnDhGbFe DKjdVY0rPEGoM7nvpUHkVI NtZPJmU4cuPyGpvO8fhAhg FexheiF4CGGvgz20 Clinical Information (test code = 5398474059) Colon perforation [K63.1] Gross Description (test code = 4053917933) r3newZGlHTNndDZGOKS8QD CrKB9sgJjzsNu0qLnrCIEn zjD7aQCoYVtpg7xlTEH7d6 quqySUDzpyTMSjQL6eTKtz MQFuKW5aVgRwDEPcInVpZL BhcGVydzEyMjQwXHBhcGVy jLU5MFZhCN0oajnuYFxhQK peLMKnvcY3EWZhuLCuO4Fd ESSbCN1dewwyWYQ5TGKNRg jgVa7hiXSugYxuSlHwKtZp LJSyQRKmHCDkj0grmqGSxj ohrJq6fK6RIRNoN3JmJS5I i0dwTIZztQEfWDN1YGymr8 kfOCdsXON3AXVcKEMdSYIa OV1UUrYoITN6NIAyFBL5Ol A8LSi0YMHVDXJnICXjZzX6 RTB3RWg1WKRdJR4wNJzcpB ZmTSrcHvwzLStlC458LLsw RRIeQ5ChR5ZtUOcrBrElJE slRLIhNPXjIGjjXGQlA1OI FIRjVNViFcT4YXOrFGe6KQ o4HQ4LPfNlAAGbEzZ8SEq9 MRCfTKu8FLkoYW8TOUVvNQ B5UcQ1GyOzRWF4GcjuGIl5 IDIgXFxzcyAzIFxcZmwgXF rbR33wrHLgPTRPBavmmYIp blxmczIwIFNQRUNJTUVOIE GnuCUeP3bpFeGzYkpzWWBd DQpccGFyZCANClxwbGFpbl xsdHJjaFxmczIyXGVwaWNO SKP0CW4pLTSZHzgngYVtVE YjNLtHqEHfvE0kfhJBOIoh BLKkX4FnccLoSEOgBTErJQ oeFzSwDSAmm3o0wSU4dYMl eUF2yPAspLfzKY1saQNiVE EQLE48jCSdbznqJpFzW86d vQCmG94vq80cQXAcFVRld0 4ewXV4rwMaZfRuPODjlj1h gP1yGNOlx2DvRM72QNWan3 VnbWVudCBvZiBsYXJnZSBi m4lqoTWwBFHnKXTpmJAbwl ErBJ2zeSmsZjlbEt7eDXWr AAdoFKLeEO4ywSHoDWB1iB RtAK6oNHHnMEAerQ9zr0Vc zkRjAP6wqX1qxJHlZTKri3 AkcDnvPLUmSHAeeD5yLVGr XMZyASWku8AwOSR7isHjE5 UgaXMgcmVtYXJrYWJsZSBm x5KpWGR1XH8yA1PkQN0mHN ZqYUCyVuRlbJO3tUBkmVZq uKFbZHWmZPg7iPQ9acN0Wx NwV85vzH0xU7ByVHHsy3Me RSmaQJ2idO1cVBS9cFH1MJ NvbWVzIHdpdGhpbiAwLjYg G70bd9MhnPfyHEXeg3Fck7 WjlUZlK3pxEyUKnJHirkOp ZCmebZ6uXSPlty9zZWPgxm Wqcqr2sQKjDPIhyTRvIRGW eOOjm6HsP0unOT8nnUOlf2 BlbmVkIHRvIHJldmVhbCBh PLVfaEGxnNInqA1wygJbxM piSEMsy9g2vKTfmr00luOq RZ6iSJBaiCniCODiKRNgvI fuXMEuX4WtAW9wnZXvrQVz VoRTxMBztKSmq6BbRHrrCN RdaLIii9DnzHHfDb4bGG81 bHRpcGxlIGRpdmVydGljdW lnKNZfrKVwi1w9uSVmrJyv UBCek3n0eZGmb0gbRATiLZ SvmLLgAHRtqufejQ4iFFkj QP88O79kWFM5INdvZE6eQH H1pxXjFOLgIXCdODCtHPYw cRWrdwW1rRjoh34jx7IjCG hlIHJlbWFpbmluZyBtdWNv g8NjyNSrwAOeNOPzljhbWV 5kIHVucmVtYXJrYWJsZSBm l4BisM4bzSBpWFUzYZTwk1 4kSGVddxQtpYAzWa5pNAVl y13eTqQkzIOkQU0FQWGojw PUTxRyc90vffYfYCq0JKEp qU7dgXkvREBgsvUxgF6dbl BswvScUZLmie8grN9rSRFw IGRldGFjaGVkIGZyYWdtZW 48QC6sPLobvmdpMFWde7Zq MKt8QoWeZ39dwF3qjTFuX3 PcAUE1SIBzUWOnuOXnchPz aWFtZXRlcikuIFRoZSBzcG CswQ3schSkbvGjiONmKIEo dE3wylT7QVKuXEQgg6eaW7 dzXLJeaxQzkNykoId9qG8r RHzaTR05Y46uPEE0NVlcLC 0lUZE5qwJsHFXwMLAiVSXd MwJakMZatbQ2nNrtb70zy3 RqMEEbUIHcDQ3qzT9znrob lNNdz5PkCEqqOUZfkx5jfS 7eOUKcBFC0cmTchEYcp1Ur dLKtJk1zYRRbjSddpvvsnR PplF1zcvopJI5wMPHlniKi wrB3lQ0pkf3bwEQwDW2OTQ SzywPLStLrqHGya0TiqGT5 mOJgDGArI8Agu99lXURqQU PflLTzkZD5DFOdrS0nWAFe jGpmUHBeHPr2ChVqSO9kjP UxEM1NATBouvKCNlUeK9Hp u52vD20bLYhqnEBtCF6ZXW TvARJ5ONW2UTLfBGLvvCSz R6djBLFkzvEbMOUsARHagk PCQhAdYwXWwWVkYR1bhecg hyheUA4gHuQuDZjkSYLkPC xTFC7SEsstFGg7PVL4eOB1 dJBfQODbwQVoq9DkpGZ9iU BmRCEfhsOCRiX2CePQrgvg ll5dynLnYK15A96pFAviyt EopaEvCI63EAAqjvRuaZNk DQ8ULAaoSWi9ZBRsfLKckB NvZXCgHMpgYC94JA9yqgjq fqFxZOMjWTJnF6AmfBNyHS 0KQTEwOiBEZXRhdGNoZWQg NyFqO03czfDdFVQulfLscR xfcTy3eHfcbpNtscNfGB53 OCRdjiJfxFCmEG7MVNTvko ANCkhpbGxhcnkgUHJpbmNl MBeZLSnRP5WSXADDYUYLxX XfSR25GNKjjhPPEpx1aKnc QP9cXGiuRH4cuHabRNYuRW IUD5KuDROuycATEtomSVEm BDDpfDRHp4QjLQWTZzcybC rvDtGzoTGjViJ5ZHMxnIBp KCP4OX6wcUxpZFDzW4LdG1 GcjfW0GGJzqfZSWhypVTYd IA0KfQ== Disclaimer (test code = 6261828224) e4fttCAsWBCkz8shBZDflI FuZzEwMzNcZnRuYmpcdWMx DBiwsjIhITdft8ShQ9DoZc AwMFxhbnNpXGRlZmxhbmcx LFHxXSQ7xqBnECIeZExyDL AlHPbrTn9fdXLgdEvxJaWs CRDss4pjnaKEGSrwAqHvK0 08JPYrNBsnp7msr4CzNJCa jQEyj8T2FZNSlnjpoVf4vL zeT81ty1B5TbfrV6czMFHr YVWrL3XbTZ1aTBOoDku6HS E5OQH5PIPhIVNnD9BdOQ2l CLIzrRHmSZy1k9mckCzdLP ZuDZW9o3vdUAvkjdZuCB8x jw5peKp8y2kwbyPeXVHkPH UbxKXKHKGwY8DfoNdgQj3z xIa5wKpdOzcvZTR2Erm9TF 4yql03muq1eWmoPXMhnteb VnH9OOsuFPBpppsvGGo9ZS jpRDZhsHE7ZQEsbYYxY9Il UIMqCN4gdbe2BTK7IEdlMZ JfKaE7BKXmuLExOEIqkGwz BChax176LHD4ZjNuJQ7dT0 Sax8O0hF3cdFIkHMYztKYc MyRrOQAexk3raETuLWjnm9 ZfDQL9lnU7cQUgrVOdDXYt QE44Tqmge1NbEnvby6XnK7 5adNA2KSbar1tnCR4rBsH9 zzRjMUkdl0jwoT0jDnV3LL xxTK9fBL3rLMEtiJ3lzirw XHBnYnJkcmhlYWRccGdicm SiRx6skHioKGK2FNtrN1yt kW3bEiH5USxhJ2bmoT8lYB n6YPsarUE6WWVnbR1jTD7x sevmq6ofXRdhFIqePAMoux B0lkL9STSqhKBaJ8JoeG7x KSVkOQ8wybqvc4dlALA1PJ rrCMHjRMG8VrYaHPQnb4Rn hah6RdHyg0VlsBTkJYsrM2 2dm198TMVyqqCxO9entLNv krgmlTKznfnqTErurdF1CS RuteKwx4WtDKJeALD2QXul EKwddLZqGHUxoStck1xoC4 RscGFyXHBsYWluXGYxXGZz MjBcbGFuZzEwMzNcaGljaF kuIMufUrIqZSZuAJugC0zx XgTrH3GfSTQrVzByrULrG5 ggVGhpcyByZXBvcnQgbWF5 RLwhI5b4RHNniyIyuZz9yv AlLdGsTWSrTDI2ZCztdLKt SALxm0RtkeqczGXnHk7kwE XgWNCklT8gCUDvQFCeTKal VX0biDj2BNUHyOGrnDIyOf XNNKGuSO43nyDqKADSylqo s2D2OXwlSKQxg1CswQPwI3 tkf1CpYSHsz20uKB6ns1M1 p5gbTPT1DW2pe8RpOZAcdH TmvSOiSXPht9Qbydshc7Uw YSYpctJdb2SpZTBrbjEddH UmCCGcyxJlxh0lbtGoNEDl WWZfR1FeodrehDkdwxYxNO Nfwp2wseLtYEE1QFJQTNMa RHLpu2OfkK7ekHRZVXK3iE Mjcq4qzyCWmUEbBYSagi12 XUTvED4lH4sqGRRuOEGbda AnpLXxx3AlYLFcgYD7lDIx EZ1LNpNCe01lKUJmJREIcb FyGSMcrKjmqNV0rsU0xV5y IChGREEpLlx+IFRoZSBGRE VvTI1ipyJku2SxykYslSrw HZByaSSuk8OmgUGqn4WdbM sss7IrsNThrHIlTB2wJRVj clxwYXIgVVRNQiBMYWJvcm O4n8QiGHYcWOVdYNB3hDiq usc3AWDuxA0yUJAmV6gxqn pnTEocZBGle8BqvZ3uwCIQ tOVgo5WkzNJnbIFSaSFeEQ 0smxBwRZjGMSqGEHF9feMp IKYej1BfEFdaW7dxU38bnZ zybQu4aYX0ZVD0kY8jUxl+ IFxwYXJccGFyIEFwcHJvcH LyLLYycSzlyhLoK3PuzxXv fP0nkCHhlqBiRC6eGF5oY4 V0oCRtQQBiguKld2ymBCpc dmUgYmVlbiByZXZpZXdlZC Bbf6CtZFfsEWA4HSugwoFh bmNsdWRpbmcgSCZFLCBTcG PdnPWpGNM3ACvkhdSfyaOh TR0wbQ7viHvwaP1ucAAtqB X3fmubUYCiORKmoEzuLHAg VO8zxZqjnT0xEyChNeTnGG hkMQ1fNIXtF0uedBWwHCPs GRThP6edBhHmoH3crEpbYS xjZjJcZnMyMFxwYXJccGFy XHBsYWluXGYxXGZzMjBcbG FuZzEwMzNcaGljaFxmMVxk AvHcNQOcWUrqD9uqUkHgN0 OsYWKkWtOhxMVxR8ooXBpj XIA8LARnRK5hjJCtPH90nU Ujz1uuOFndhMxonk4kU61u wXAoSPrqkWnzUOHnz77uo4 PaDIFlcbItux1eTPJwluT2 oI2lMZXefWphHQUhlWAsFC Mpq8JrXWxpcHBwdpQhVVee WQXtGEZbrEPnenI8zhJhtw YfqdScXLCexXqgRZDnc2Zi ORUcVPqwu6Brmx1ewLIiVO UxdrAWpBlqfTZwvK8iL7Oa FHWmUVLwzl7hNQIoqZ2bSR rvg1RgvgqjJOPtUHNwVXYw vhBfzt5mHMPoeQREJF6MOW nwaLJfw4LvpnIsM2kCLQF4 NUQwNjYwMjgxKSBleGNlcH CbCTKbxe67HEMwpI6bcXli LLGujM3ooC2pkOimaM1dCa KvZcUuGUsnRX9gVNDyO2qw cWKgJFXnACOxQ9thPdZiqH 9jaFxmMVxjZjJcZnMyMFxw YXJ9fQ== Embedded Images (test code = 9692997722) [facility] [id number] 20:30:39EXAM: XR CHEST 1 VW COMPARISON: Multiple [...] soft tissues: No osseous abnormality is visualized. [facility] + Lactic [id number] 14:58:15* Test Item Value Reference Range Interpretation Comme nts PH (test code = 2) 7.43 7.35-7.45 PCO2 (test code = 1015898082) 29 35-45 L PO2 (test code = 3583870510) 113 80-100 H HCO3 (test code = 5837523810) 18 22-26 L BE (test code = 2416696627) -5.1 -3.0-3.0 L THB (test code = 9911239962) 8.9 g/dL 12.0-16.0 L %O2HB (test code = 9409619386) 96.3 % 94.0-99.0 %COHB ART (test code = 5667747501) 1.8 % 0.0-1.5 H %METHB ART (test code = 7202161197) 0.3 % 0.4-1.5 L VOL%O2 ART (test code = 0520359943) 12.3 % 15.0-23.0 L NA (test code = 0235877647) 138 mmol/L 135-145 K+ (test code = 6969839582) 3.7 mmol/L 3.5-5.0 AC CA IONZ (test code = 0879495724) 4.30 mg/dL 4.50-5.30 L GLUCOSE (test code = 0144624309) 112 mg/dL 70-110 H LACTIC ACID (test code = 2332346332) 1.59 mmol/L 0.50-2.20 Lab Interpretation (test cod e = 49277-1) Abnormal [facility] Metabolic Panel (NA, K, CL, CO2, GLUCOSE, BUN, CREATININE, CA)2023-12-06 10:20:05* Test Item Value Reference Range Interpretation Comme nts NA (test code = 2486589820) 136 mmol/L 135-145 K (test code = 3510083837) 4.0 mmol/L 3.5-5.0 CL (test code = 7992108623) 107 mmol/L 98-108 CO2 TOTAL (test code = 7460808117) 16 mmol/L 23-31 L AGAP (test code = 8528807761) 13 2-16 BUN (test code = 0289399027) 41 mg/dL 7-23 H GLUCOSE (test code = 4461136777) 115 mg/dL 70-110 H CREATININE (test code = 2160-0) 2.10 mg/dL 0.50-1.04 H CALCIUM (test code = 3263735565) 7.9 mg/dL 8.6-10.6 L eGFR (test code = 72262-6) 24.2 mL/min/1.73m2 CKD-EPI eGFR (2020). Assuming creatinine has been stable day-to-day for at least three months, the eGFR indicates Category G4 (15 - 29 mL/min/1.73 m2) Lab Interpretation (test code = 94063-4) Abnormal [facility]esium2024-[facility]-11 10:20:05* Test Item Value Reference Range Interpretation Comme nts MAGNESIUM (test code = 3841753637) 2.1 mg/dL 1.7-2.4 Lab Interpretation (test cod e = 02662-5) Normal [facility]osphorus2024-09-11 10:20:05* Test Item Value Reference Range Interpretation Comme nts PHOSPHORUS (test code = 9352164602) 4.7 mg/dL 2.5-5.0 Lab Interpretation (test cod e = 12509-5) Normal [facility] Hospital[facility]b with [id number] 09:59:09* Test Item Value Reference Range Interpretation [...] 32.7 g/dL 31.6-35.1 RDW-SD (test code = 59966-1) 57.8 fL 39.0-49.9 H RDW-CV (test code = 788-0) 21.9 % 12.0-15.5 H PLT (test code = 777-3) 437 166-358 H MPV (test code = 59164-5) 8.8 fL 9.5-12.9 L NRBC/100 WBC (test code = 9239569373) 0.2 0.0-10.0 NRBC x10^3 (test code = 5174665605) 0.03 See_Comment [Automated message] The system which generated this result transmitted reference range: 10*3/?L. The reference range was not used to interpret this result as normal/abnormal. GRAN MAT (NEUT) % (test code = 770-8) 82.2 % IMM GRAN % (test code = 8098162255) 6.10 % LYMPH % (test code = 736-9) 8.5 % MONO % (test code = 5905-5) 3.0 % EOS % (test code = 713-8) 0.1 % BASO % (test code = 706-2) 0.1 % GRAN MAT x10^3(ANC) (test code = 8834501348) 15.85 10*3/uL 1.88-7.09 H IMM GRAN x10^3 (test code = 6742769952) 1.17 10*3/uL 0.00-0.06 H LYMPH x10^3 (test [...] as normal/abnormal. Lab Interpretation (test code = 64278-2) Abnormal [facility] Packed RBC (in units), 1 Units 2023-12-06 09:47:53* Test Item Value Reference Range Interpretation Comme nts Cross Match Result (test code = 4409) Compatible ISBT Blood Type Code (test code = 342820) 6200 Unit Blood Type (test code = 4410) A Pos Unit Number (test code = 4411) [id number] Blood Expiration Date & Time (test code = 231004) [id number] Status Information (test code = 4412) Issued Product Identification (test code = 4413) Red Blood Cells Product Code (test code = 4414) [id number] Performed at [facility] B Laboratory Services - [facility] Blood [address] [id number] Free: [phone] No. [id number] [facility] 20 + Lactic Yokh3186-76-24 08:25:51* Test Item Value Reference Range Interpretation Comme nts PH (test code = 2) 7.42 7.35-7.45 PCO2 (test code = 1347130670) 28 35-45 L PO2 (test code = 9310218077) 121 80-100 H HCO3 (test code = 6695020253) 18 22-26 L BE (test code = 6520093488) -5.8 -3.0-3.0 L THB (test code = 5139454632) 8.0 g/dL 12.0-16.0 LL %O2HB (test code = 5138988668) 97.6 % 94.0-99.0 %COHB ART (test code = 2115431131) 0.8 % 0.0-1.5 %METHB ART (test code = 5760286664) 0.3 % 0.4-1.5 L VOL%O2 ART (test code = 8304891499) 11.2 % 15.0-23.0 L NA (test code = 5592799213) 136 mmol/L 135-145 K+ (test code = 9905040330) 4.1 mmol/L 3.5-5.0 AC CA IONZ (test code = 5053656869) 4.30 mg/dL 4.50-5.30 L GLUCOSE (test code = 0150531862) 109 mg/dL 70-110 LACTIC ACID (test code = 4317212061) 1.56 mmol/L 0.50-2.20 Lab Interpretation (test cod e = 48795-4) Abnormal [facility] Arter[facility]. 30 minutes post ventilation.2023-12-05 17:42:21* Test Item Value Reference Range Interpretation Comme nts PH (test code = 2) 7.42 7.35-7.45 PCO2 (test code = 1515421752) 29 35-45 L PO2 (test code = 2143973334) 132 80-100 H HCO3 (test code = 1243336760) 19 22-26 L BE (test code = 6668204436) -4.5 -3.0-3.0 L Lab Interpretation (test cod e = 00923-3) [facility]normal [facility] KF2936-59-23 14:08:34Study: Single view chest. Ordering Physician: DONA ELKINS Date: 12/05/2023 4:00 AM History:Intubated, respiratory failure. COMPARISON: 12/04/2023 Findings: Single frontal view chest demonstrates cardiomegaly. The lungsappear clear without infiltrate, pleural effusion or pneumothorax. Theendotracheal tube terminates 5.0 cm above the sera. The right internaljugular venous catheter terminates overthe distal superior vena cava.[facility] HospitalCbc with Pkiy0866-41-39 09:58:11* Test Item Value Reference Range Interpretation [...] 32.0 g/dL 31.6-35.1 RDW-SD (test code = 97377-7) 56.0 fL 39.0-49.9 H RDW-CV (test code = 788-0) 21.4 % 12.0-15.5 H PLT (test code = 777-3) 614 166-358 H MPV (test code = 51399-3) 8.9 fL 9.5-12.9 L NRBC/100 WBC (test code = 2119368327) 0.3 0.0-10.0 NRBC x10^3 (test code = 1660967520) 0.06 See_Comment [Automated message] The system which generated this result transmitted reference range: 10*3/?L. The reference range was not used to interpret this result as normal/abnormal. GRAN MAT (NEUT) % (test code = 770-8) 82.5 % IMM GRAN % (test code = 3281995700) 4.10 % LYMPH % (test code = 736-9) 9.4 % MONO % (test code = 5905-5) 3.8 % EOS % (test code = 713-8) 0.0 % BASO % (test code = 706-2) 0.2 % GRAN MAT x10^3(ANC) (test code = 9985637978) 18.23 10*3/uL 1.88-7.09 H IMM GRAN x10^3 (test code = 6684473277) 0.91 10*3/uL 0.00-0.06 H LYMPH x10^3 (test [...] result as normal/abnormal. BANDS (test code = 6772255892) Increased A Lab Interpretation (test code = 07601-9) Abnormal [facility] Metabolic Panel (NA, K, CL, CO2, GLUCOSE, BUN, CREATININE, CA)2023-12-05 09:41:38* Test Item Value Reference Range Interpretation Comme nts NA (test code = 1720948238) 134 mmol/L 135-145 L K (test code = 0280314888) 5.0 mmol/L 3.5-5.0 CL (test code = 3919573321) 104 mmol/L 98-108 CO2 TOTAL (test code = 5397843211) 16 mmol/L 23-31 L AGAP (test code = 8581365245) 14 2-16 BUN (test code = 9562822093) 38 mg/dL 7-23 H GLUCOSE (test code = 4608631646) 121 mg/dL 70-110 H CREATININE (test code = 2160-0) 2.53 mg/dL 0.50-1.04 H CALCIUM (test code = 9392592972) 8.1 mg/dL 8.6-10.6 L eGFR (test code = 02507-0) 19.3 mL/min/1.73m2 CKD-EPI eGFR (2020). Assuming creatinine has been stable day-to-day for at least three months, the eGFR indicates Category G4 (15 - 29 mL/min/1.73 m2) Lab Interpretation (test code = 86517-6) [facility]* Test Item Value Reference Range Interpretation Comme nts MAGNESIUM (test code = 6702609047) 2.1 mg/dL 1.7-2.4 Lab Interpretation (test cod e = 60584-4) [facility] 09:41:38* Test Item Value Reference Range Interpretation Comme nts PHOSPHORUS (test code = 1474895567) 4.9 mg/dL 2.5-5.0 Lab Interpretation (test cod e = 98807-9) [facility] + Lactic [id number] 08:38:38* Test Item Value Reference Range Interpretation Comme nts PH (test code = 2) 7.43 7.35-7.45 PCO2 (test code = 8110040952) 28 35-45 L PO2 (test code = 9935585849) 112 80-100 H HCO3 (test code = 4198040976) 18 22-26 L BE (test code = 1548290688) -5.3 -3.0-3.0 L THB (test code = 9867992119) 7.9 g/dL 12.0-16.0 LL %O2HB (test code = 9056255493) 97.3 % 94.0-99.0 %COHB ART (test code = 1344044496) 0.7 % 0.0-1.5 %METHB ART (test code = 0531260128) 0.3 % 0.4-1.5 L VOL%O2 ART (test code = 3897379406) 11.0 % 15.0-23.0 L NA (test code = 0950644193) 134 mmol/L 135-145 L K+ (test code = 7997314394) 5.1 mmol/L 3.5-5.0 H AC CA IONZ (test code = 5525349582) 4.30 mg/dL 4.50-5.30 L GLUCOSE (test code = 4991538773) 120 mg/dL 70-110 H LACTIC ACID (test code = 8766422784) 1.95 mmol/L 0.50-2.20 Lab Interpretation (test cod e = 86133-6) [facility] [id number] 05:27:23Ordering physician: TAYLOR SEGUNDO Indication: Central line placement Comparison: Chest dated 12/04/2023 at 1940 Technical quality: Adequate Findings: Single AP view of the chest. Endotracheal tube terminates 5.6 cmabove the sera. Right internal jugular central venous catheter terminatesjust past the cavoatrial junction. The cardiopericardial silhouette ismoderately enlarged. The lungs are clear bilat erally. The visualized bonythorax is intact.[facility] [id number] 05:20:21Ordering physician: TAYLOR SEGUNDO Indication: Central line Comparison: Chest dated 12/15/2023 1949 Technical quality: Adequate Findings: Single AP view of the chest. Endotracheal tube terminates 5.1 cmabove the sera. Right internal jugular central venous catheter terminatesin the right atrium. There is stable moderate cardiomegaly. No acutepulmonary process is appreciated. The visualized bony thorax is intact.[facility] + Lactic [id number] 04:05:35* Test Item Value Reference Range Interpretation Comme nts PH (test code = 2) 7.41 7.35-7.45 PCO2 (test code = 1489921881) 28 35-45 L PO2 (test code = 4326277743) 115 80-100 H HCO3 (test code = 6450988310) 17 22-26 L BE (test code = 5759801386) -6.7 -3.0-3.0 L THB (test code = 6677127535) 8.7 g/dL 12.0-16.0 L %O2HB (test code = 6897552598) 97.0 % 94.0-99.0 %COHB ART (test code = 6915790954) 1.5 % 0.0-1.5 %METHB ART (test code = 1526518878) 0.3 % 0.4-1.5 L VOL%O2 ART (test code = 4148380890) 12.1 % 15.0-23.0 L NA (test code = 3692274837) 133 mmol/L 135-145 L K+ (test code = 8050633919) 5.1 mmol/L 3.5-5.0 H AC CA IONZ (test code = 8417628955) 4.30 mg/dL 4.50-5.30 L GLUCOSE (test code = 2792678022) 104 mg/dL 70-110 LACTIC ACID (test code = 8174269438) 2.10 mmol/L 0.50-2.20 QUES Lab Interpretation (test cod e = 78797-0) [facility] + Lactic [id number] 01:59:51* Test Item Value Reference Range Interpretation Comme nts PH (test code = 2) 7.42 7.35-7.45 PCO2 (test code = 2716226570) 28 35-45 L PO2 (test code = 7804476562) 155 80-100 H HCO3 (test code = 5232924577) 18 22-26 L BE (test code = 6340953180) -6.2 -3.0-3.0 L THB (test code = 9041117493) 7.1 g/dL 12.0-16.0 LL %O2HB (test code = 9274402287) 97.8 % 94.0-99.0 %COHB ART (test code = 8989901497) 1.5 % 0.0-1.5 %METHB ART (test code = 8872842974) 0.3 % 0.4-1.5 L VOL%O2 ART (test code = 3979503503) 10.1 % 15.0-23.0 L NA (test code = 1300768084) 134 mmol/L 135-145 L K+ (test code = 3936876691) 5.1 mmol/L 3.5-5.0 H AC CA IONZ (test code = 9438294118) 4.20 mg/dL 4.50-5.30 L GLUCOSE (test code = 0029135023) 104 mg/dL 70-110 LACTIC ACID (test code = 1317077530) 3.00 mmol/L 0.50-2.20 H QUES Lab Interpretation (test cod e = 87846-8) Abnormal [facility] with [id number] 23:18:18* Test Item Value Reference Range Interpretation [...] 31.7 g/dL 31.6-35.1 RDW-SD (test code = 56822-0) 57.0 fL 39.0-49.9 H RDW-CV (test code = 788-0) 21.1 % 12.0-15.5 H PLT (test code = 777-3) 692 166-358 H MPV (test code = 79416-9) 9.1 fL 9.5-12.9 L NRBC/100 WBC (test code = 7110567892) 0.5 0.0-10.0 NRBC x10^3 (test code = 2314115426) 0.12 See_Comment [Automated message] The system which generated this result transmitted reference range: 10*3/?L. The reference range was not used to interpret this result as normal/abnormal. GRAN MAT (NEUT) % (test code = 770-8) 84.9 % IMM GRAN % (test code = 0433192744) 2.90 % LYMPH % (test code = 736-9) 8.6 % MONO % (test code = 5905-5) 3.3 % EOS % (test code = 713-8) 0.0 % BASO % (test code = 706-2) 0.3 % GRAN MAT x10^3(ANC) (test code = 9692936007) 19.00 10*3/uL 1.88-7.09 H IMM GRAN x10^3 (test code = 1698481250) 0.65 10*3/uL 0.00-0.06 H LYMPH x10^3 (test [...] result as normal/abnormal. BANDS (test code = 9507665110) MARKED INCREASED A DOHLE BODIES (test code = 7792-5) Present A Lab Interpretation (test code = 97313-2) Abnormal [facility] Metabolic Panel (NA, K, CL, CO2, GLUCOSE, BUN, CREATININE, CA)2023-12-04 22:55:40* Test Item Value Reference Range Interpretation Comme nts NA (test code = 1458789856) 134 mmol/L 135-145 L K (test code = 3760665291) 5.1 mmol/L 3.5-5.0 H CL (test code = 6271055610) 106 mmol/L 98-108 CO2 TOTAL (test code = 5534454784) 16 mmol/L 23-31 L AGAP (test code = 6212369741) 12 2-16 BUN (test code = 0787368382) 34 mg/dL 7-23 H GLUCOSE (test code = 8255085622) 102 mg/dL 70-110 CREATININE (test code = 2160-0) 2.15 mg/dL 0.50-1.04 H CALCIUM (test code = 4589631937) 8.0 mg/dL 8.6-10.6 L eGFR (test code = 63018-2) 23.5 mL/min/1.73m2 CKD-EPI eGFR (2020). Assuming creatinine has been stable day-to-day for at least three months, the eGFR indicates Category G4 (15 - 29 mL/min/1.73 m2) Lab Interpretation (test code = 98772-3) [facility] [id number] 21:56:12* Test Item Value Reference Range Interpretation Comme nts Height (test code = 7318759883) 68 in Weight (test code = 6603607358) 375 lbs Systolic BP (test code = 2012449694) 195 mmHg Diastolic BP (test code = 9393775098) 165 mmHg Heart Rate (test code = 6855993292) 109 bpm BSA (test code = 3866378736) 2.7 m2 LVIDD (test code = 7406285606) 4.90 cm Left Ventricular End Diastolic Volume by Teichholz Method (test code = 3847244) 115.2 mL IVS (test code = 9374974843) 0.92 cm Interventricular Septum Diastolic Thickness by 2D (test code = 8162986) 0.92 cm LVPWD (test code = 2222764365) 1.02 cm PW (test code = 1866030195) 1.02 cm 0.6-1.1 EF(Teich) (test code = 8143500483) 60.40 % LVIDS (test code = 2789491873) 3.30 cm Left Ventricular End Systolic Volume by Teichholz Method (test code = 9201987) 45.7 mL FS (test code = 6899974735) 32 % EF - 2D (test code = 93565618) 60.40 % A4C EF (test code = 8799970091) 58.60 % EF(sp4-el) (test code = 1227328285) 55.90 % SV(MOD-sp4) (test code = 0218270146) 65.80 mL SV(sp4-el) (test code = 0543472526) 64.20 mL LV Diastolic Volume (BP) (test code = 3595801814) 114.6 mL A2C EF (test code = 6755059559) 72.10 % EF(MOD-bp) (test code = 3901165292) 65.70 % EF(sp2-el) (test code = 8194026969) 74.20 % LV Systolic Volume (BP) (test code = 4044117782) 39.3 mL SV(MOD-bp) (test code = 4988724279) 75.30 mL SV(MOD-sp2) (test code = 2612151001) 78.80 mL EF (test code = 3408911751) 66 Left Ventricular Stroke Volume by 2-D Biplane-MOD (test code = 6132664) 75.3 mL LV Diastolic Volume Index (BP) (test code = 0680693308) 42.4 mL/m2 LV Systolic Volume Index (BP) (test code = 6566273047) 14.6 mL/m2 Radiology Study observation (narrative) (test code = 10390-3) JESSICA (test code = JESSICA) ?Left?Ventricle: Not [...] are hypokinetic: apex.All other segments are normal. [facility] + Lactic Yijp9690-58-12 20:05:31* Test Item Value Reference Range Interpretation Comme nts PH (test code = 2) 7.40 7.35-7.45 PCO2 (test code = 9547234538) 27 35-45 L PO2 (test code = 3648758249) 149 80-100 H HCO3 (test code = 8784189434) 16 22-26 L BE (test code = 5088716697) -7.6 -3.0-3.0 L THB (test code = 5726914427) 10.5 g/dL 12.0-16.0 L %O2HB (test code = 2914724066) 98.1 % 94.0-99.0 %COHB ART (test code = 2139319826) 1.1 % 0.0-1.5 %METHB ART (test code = 4289916675) 0.3 % 0.4-1.5 L VOL%O2 ART (test code = 2594361559) 14.8 % 15.0-23.0 L NA (test code = 7959233375) 134 mmol/L 135-145 L K+ (test code = 8086436368) 5.1 mmol/L 3.5-5.0 H AC CA IONZ (test code = 9014791598) 4.30 mg/dL 4.50-5.30 L GLUCOSE (test code = 5478352504) 97 mg/dL 70-110 LACTIC ACID (test code = 7596945633) 4.39 mmol/L 0.50-2.20 H QUES Lab Interpretation (test cod e = 44702-4) [facility]normal [facility]1C)2023-12-04 18:13:56* Test Item Value Reference Range Interpretation Comme nts HGB A1C (test code = 4548-4) 5.4 % 4.0-5.7 JESSICA (test code = JESSICA) Reference RangesNormal: <5.7%Prediabetes: 5.7 - 6.4%Diabetes: > 6.5% Lab Interpretation (test code = 95966-6) Normal [facility]C)2023-12-04 18:13:56* Test Item Value Reference Range Interpretation Comme nts HGB A1C (test code = 4548-4) 5.4 % 4.0-5.7 JESSICA (test code = JESSICA) Reference RangesNormal: <5.7%Prediabetes: 5.7 - 6.4%Diabetes: > 6.5% Lab Interpretation (test code = 15521-3) Normal [facility] [id number] 15:42:50EXAM: XR KUB, XR KUB, XR KUB HISTORY: 73 years-old Female; NGT . TECHNIQUE: Frontal view of the abdo men and pelvis COMPARISON: CT abdomen pelvis dated 12/03/2023 [id number] dated 12/04/2023 [facility] [id number] 15:42:50EXAM: XR KUB, XR KUB, XR KUB HISTORY: 73 years-old Female; NGT . TECHNIQUE: Frontal view of the abdomen and pelvis COMPARISON: CT abdomen pelvis dated 12/03/2023 [id number] dated 12/04/2023 at 2:24[facility] CHEST 1 VW 2023-12-04 13:59:41EXAM: XR CHEST 1 VW COMPARISON: 12/02/2023 HISTORY: intub FINDINGS: Lines/Tubes: Interval placement of endotracheal tube which projectsapproximately 4 cm above the sera. An enteric tube coursessubdiap hragmatically with tip excluded from oxsbm-yl-nofu. Lungs: No focal consolidation or pneumothorax. Decrease in previously seenprominent interstitial markings. Possible trace right pleural effusion. Heart/Mediastinum: The cardiac silhouette appears borderline enlarged. Bones and soft tissues: No acute findings are detected.[facility] 1 [id number] 13:59:41EXAM: XR CHEST 1 VW COMPARISON: 12/02/2023 HISTORY: intub FINDINGS: Lines/Tubes: Interval placement of endotracheal tube which projectsapproximately 4 cm above the sera. An enteric tube coursessubdiaphragmatically with tip excluded from babtr-xe-bkrc. Lungs: No focal consolidation or pneumothorax. D ecrease in previously seenprominent interstitial markings. Possible trace right pleural effusion. Heart/Mediastinum: The cardiac silhouette appears borderline enlarged. Bones and soft tissues: No acute findings are detected.[facility] + Lactic Rwpk3771-21-71 10:31:19* Test Item Value Reference Range Interpretation Comme nts PH (test code = 2) 7.33 7.35-7.45 L PCO2 (test code = 1005065284) 30 35-45 L PO2 (test code = 6017409559) 178 80-100 H HCO3 (test code = 1709606563) 16 22-26 L BE (test code = 5399960028) -8.8 -3.0-3.0 L THB (test code = 5678769812) 11.8 g/dL 12.0-16.0 L %O2HB (test code = 1424366794) 98.1 % 94.0-99.0 %COHB ART (test code = 1350987396) 1.0 % 0.0-1.5 %METHB ART (test code = 9316817842) 0.3 % 0.4-1.5 L VOL%O2 ART (test code = 1606090931) 16.6 % 15.0-23.0 NA (test code = 7541640099) 134 mmol/L 135-145 L K+ (test code = 2071660354) 4.8 mmol/L 3.5-5.0 AC CA IONZ (test code = 8562295072) 4.50 mg/dL 4.50-5.30 GLUCOSE (test code = 1951563829) 111 mg/dL 70-110 H LACTIC ACID (test code = 2271312960) 4.15 mmol/L 0.50-2.20 H Lab Interpretation (test cod e = 78412-4) Abnormal [facility] Panel 20 + Lactic Dvea0347-13-98 10:31:19* Test Item Value Reference Range Interpretation Comme nts PH (test code = 2) 7.33 7.35-7.45 L PCO2 (test code = 6237492398) 30 35-45 L PO2 (test code = 6570502079) 178 80-100 H HCO3 (test code = 7552162617) 16 22-26 L BE (test code = 1092987803) -8.8 -3.0-3.0 L THB (test code = 7337126305) 11.8 g/dL 12.0-16.0 L %O2HB (test code = 6981679214) 98.1 % 94.0-99.0 %COHB ART (test code = 7705817140) 1.0 % 0.0-1.5 %METHB ART (test code = 9442321282) 0.3 % 0.4-1.5 L VOL%O2 ART (test code = 2670225061) 16.6 % 15.0-23.0 NA (test code = 2581734222) 134 mmol/L 135-145 L K+ (test code = 1330710257) 4.8 mmol/L 3.5-5.0 AC CA IONZ (test code = 0542904395) 4.50 mg/dL 4.50-5.30 GLUCOSE (test code = 8159585919) 111 mg/dL 70-110 H LACTIC ACID (test code = 0048132260) 4.15 mmol/L 0.50-2.20 H Lab Interpretation (test cod e = 82467-0) Abnormal [facility] with [id number] 09:09:53* Test Item Value Reference Range Interpretation [...] g/dL 31.6-35.1 L RDW-SD (test code = 09363-1) 58.1 fL 39.0-49.9 H RDW-CV (test code = 788-0) 21.5 % 12.0-15.5 H PLT (test code = 777-3) 829 166-358 H MPV (test code = 92192-3) 8.8 fL 9.5-12.9 L NRBC/100 WBC (test code = 4001832985) 1.1 0.0-10.0 NRBC x10^3 (test code = 5378739763) 0.14 See_Comment [Automated message] The system which generated this result transmitted reference range: 10*3/?L. The reference range was not used to interpret this result as normal/abnormal. GRAN MAT (NEUT) % (test code = 770-8) 82.1 % IMM GRAN % (test code = 8592001950) 1.10 % LYMPH % (test code = 736-9) 13.0 % MONO % (test code = 5905-5) 3.2 % EOS % (test code = 713-8) 0.1 % BASO % (test code = 706-2) 0.5 % GRAN MAT x10^3(ANC) (test code = 5215762314) 10.52 10*3/uL 1.88-7.09 H IMM GRAN x10^3 (test code = 5924794939) 0.14 10*3/uL 0.00-0.06 H LYMPH x10^3 (test [...] result as normal/abnormal. BANDS (test code = 0271088482) MARKED INCREASED A DOHLE BODIES (test code = 7792-5) Present A Lab Interpretation (test code = 83327-3) Abnormal [facility] with Trgo8045-74-96 09:09:53* Test Item Value Reference Range Interpretation [...] g/dL 31.6-35.1 L RDW-SD (test code = 33138-8) 58.1 fL 39.0-49.9 H RDW-CV (test code = 788-0) 21.5 % 12.0-15.5 H PLT (test code = 777-3) 829 166-358 H MPV (test code = 94160-3) 8.8 fL 9.5-12.9 L NRBC/100 WBC (test code = 3060226370) 1.1 0.0-10.0 NRBC x10^3 (test code = 7391406234) 0.14 See_Comment [Automated message] The system which generated this result transmitted reference range: 10*3/?L. The reference range was not used to interpret this result as normal/abnormal. GRAN MAT (NEUT) % (test code = 770-8) 82.1 % IMM GRAN % (test code = 2644085271) 1.10 % LYMPH % (test code = 736-9) 13.0 % MONO % (test code = 5905-5) 3.2 % EOS % (test code = 713-8) 0.1 % BASO % (test code = 706-2) 0.5 % GRAN MAT x10^3(ANC) (test code = 2574148172) 10.52 10*3/uL 1.88-7.09 H IMM GRAN x10^3 (test code = 1678342200) 0.14 10*3/uL 0.00-0.06 H LYMPH x10^3 (test [...] result as normal/abnormal. BANDS (test code = 2070817969) MARKED INCREASED A DOHLE BODIES (test code = 7792-5) Present A Lab Interpretation (test code = 23485-4) Abnormal [facility] HospitalPhosphorus2024-09-09 08:50:45* Test Item Value Reference Range Interpretation Comme nts PHOSPHORUS (test code = 1229349864) 5.9 mg/dL 2.5-5.0 H Lab Interpretation (test cod e = 59427-3) Abnormal [facility] HospitalMagnesium2024-09-09 08:50:45* Test Item Value Reference Range Interpretation Comme nts MAGNESIUM (test code = 7207112065) 2.1 mg/dL 1.7-2.4 Lab Interpretation (test cod e = 18286-8) Normal [facility] Hospital[facility]asi Metabolic Panel (NA, K, CL, CO2, GLUCOSE, BUN, CREATININE, CA)2023-12-04 08:50:45* Test Item Value Reference Range Interpretation Comme nts NA (test code = 8039707920) 135 mmol/L 135-145 K (test code = 7319611442) 5.0 mmol/L 3.5-5.0 CL (test code = 6091079120) 104 mmol/L 98-108 CO2 TOTAL (test code = 9082967468) 16 mmol/L 23-31 L AGAP (test code = 1431941076) 15 2-16 BUN (test code = 7019812053) 29 mg/dL 7-23 H GLUCOSE (test code = 0633129345) 126 mg/dL 70-110 H CREATININE (test code = 2160-0) 1.51 mg/dL 0.50-1.04 H CALCIUM (test code = 1028893027) 8.6 mg/dL 8.6-10.6 eGFR (test code = 68613-4) 35.9 mL/min/1.73m2 CKD-EPI eGFR (2020). Assuming creatinine has been stable day-to-day for at least three months, the eGFR indicates Category G3b (30 - 44 mL/min/1.73 m2) Lab Interpretation (test code = 53328-5) Abnormal [facility] Metabolic Panel (NA, K, CL, CO2, GLUCOSE, BUN, CREATININE, CA)2023-12-04 08:50:45* Test Item Value Reference Range Interpretation Comme nts NA (test code = 2612286907) 135 mmol/L 135-145 K (test code = 3850975923) 5.0 mmol/L 3.5-5.0 CL (test code = 0152723776) 104 mmol/L 98-108 CO2 TOTAL (test code = 2002297576) 16 mmol/L 23-31 L AGAP (test code = 7503979400) 15 2-16 BUN (test code = 2561503858) 29 mg/dL 7-23 H GLUCOSE (test code = 8546145998) 126 mg/dL 70-110 H CREATININE (test code = 2160-0) 1.51 mg/dL 0.50-1.04 H CALCIUM (test code = 0228377118) 8.6 mg/dL 8.6-10.6 eGFR (test code = 36312-7) 35.9 mL/min/1.73m2 CKD-EPI eGFR (2020). Assuming creatinine has been stable day-to-day for at least three months, the eGFR indicates Category G3b (30 - 44 mL/min/1.73 m2) Lab Interpretation (test code = 77716-4) Abnormal [facility] Hospital[facility]esium2024-09-09 08:50:45* Test Item Value Reference Range Interpretation Comme nts MAGNESIUM (test code = 1687384637) 2.1 mg/dL 1.7-2.4 Lab Interpretation (test cod e = 36187-6) Normal [facility]orus2024-09-09 08:50:45* Test Item Value Reference Range Interpretation Comme nts PHOSPHORUS (test code = 0621703039) 5.9 mg/dL 2.5-5.0 H Lab Interpretation (test cod e = 32706-5) Abnormal [facility] HospitalFibrinogen2024-09-09 08:48:34* Test Item Value Reference Range Interpretation Comme nts Fibrinogen (test code = 3896860042) 879 mg/dL 167-453 H Lab Interpretation (test cod e = 62949-9) Abnormal [facility] HospitalFibrinogen2024-09-09 08:48:34* Test Item Value Reference Range Interpretation Comme nts Fibrinogen (test code = 6403470511) 879 mg/dL 167-453 H Lab Interpretation (test cod e = 28748-9) Abnormal [facility] HospitalProthrombin Time / [id number] 08:48:09* Test Item Value Reference Range Interpretation Comme nts PROTIME PATIENT (test code = 5964-2) 21.6 10.1-12.6 H INR (test code = 6301-6) 2.0 Normal INR <1.1; Warfarin Therapeutic range 2.0 to 3.0 or 2.5 to 3.5, depending upon the indications. Lab Interpretation (test code = 46808-1) Abnormal [facility] HospitalActivated Partial Thrmplas Spi2265-27-81 08:48:09* Test Item Value Reference Range Interpretation Comme nts APTT Patient (test code = 3173-2) 32 26-36 Lab Interpretation (test cod e = 70199-2) Normal [facility] HospitalActivated Partial Thrmplas Unt8542-12-51 08:48:09* Test Item Value Reference Range Interpretation Comme nts APTT Patient (test code = 3173-2) 32 26-36 Lab Interpretation (test cod e = 68018-6) Normal [facility] HospitalProthrombin Time / [id number] 08:48:09* Test Item Value Reference Range Interpretation Comme nts PROTIME PATIENT (test code = 5964-2) 21.6 10.1-12.6 H INR (test code = 6301-6) 2.0 Normal INR <1.1; Warfarin Therapeutic range 2.0 to 3.0 or 2.5 to 3.5, depending upon the indications. Lab Interpretation (test code = 41289-7) [facility]normal [facility] 20 + Lactic Vdyc1455-91-54 08:18:49* Test Item Value Reference Range Interpretation Comme nts PH (test code = 2) 7.27 7.35-7.45 L PCO2 (test code = 9983512521) 37 35-45 PO2 (test code = 9405631363) 312 80-100 H HCO3 (test code = 9438939222) 17 22-26 L BE (test code = 4578438085) -9.5 -3.0-3.0 L THB (test code = 5371963397) 11.8 g/dL 12.0-16.0 L %O2HB (test code = 8073941336) 98.7 % 94.0-99.0 %COHB ART (test code = 9909948434) 1.0 % 0.0-1.5 %METHB ART (test code = 6263033925) 0.3 % 0.4-1.5 L VOL%O2 ART (test code = 8984481700) 17.2 % 15.0-23.0 NA (test code = 9679149312) 134 mmol/L 135-145 L K+ (test code = 8429932274) 5.0 mmol/L 3.5-5.0 AC CA IONZ (test code = 9214832104) 4.60 mg/dL 4.50-5.30 GLUCOSE (test code = 9696612500) 125 mg/dL 70-110 H LACTIC ACID (test code = 2574175569) 4.75 mmol/L 0.50-2.20 H Lab Interpretation (test cod e = 23519-6) [facility]normal [facility] 20 + Lactic Bguu5080-84-94 08:18:49* Test Item Value Reference Range Interpretation Comme nts PH (test code = 2) 7.27 7.35-7.45 L PCO2 (test code = 3848736972) 37 35-45 PO2 (test code = 7776928051) 312 80-100 H HCO3 (test code = 9179697654) 17 22-26 L BE (test code = 7503064367) -9.5 -3.0-3.0 L THB (test code = 7592234633) 11.8 g/dL 12.0-16.0 L %O2HB (test code = 4035073375) 98.7 % 94.0-99.0 %COHB ART (test code = 5290562165) 1.0 % 0.0-1.5 %METHB ART (test code = 5402622529) 0.3 % 0.4-1.5 L VOL%O2 ART (test code = 0111373092) 17.2 % 15.0-23.0 NA (test code = 7161551048) 134 mmol/L 135-145 L K+ (test code = 3519392105) 5.0 mmol/L 3.5-5.0 AC CA IONZ (test code = 2487475778) 4.60 mg/dL 4.50-5.30 GLUCOSE (test code = 0446777605) 125 mg/dL 70-110 H LACTIC ACID (test code = 3332822239) 4.75 mmol/L 0.50-2.20 H Lab Interpretation (test cod e = 02415-7) Abnormal [facility] Packed RBC (in units), 2 Units 2023-12-04 02:36:27* Test Item Value Reference Range Interpretation Comme nts Cross Match Result (test code = 4409) Compatible ISBT Blood Type Code (test code = 001940) 6200 Unit Blood Type (test code = 4410) A Pos Unit Number (test code = 4411) [id number] Blood Expiration Date & Time (test code = 405455) 282852493914 Status Information (test code = 4412) Issued Product Identification (test code = 4413) Red Blood Cells Product Code (test code = 4414) [id number] Performed at [facility] B Laboratory Services - [facility] Blood [address] [place] [address]Ptgj Free: [phone] No. [id number] [facility] Packed RBC (in units), 2 Units 2023-12-04 02:36:27* Test Item Value Reference Range Interpretation Comme nts Cross Match Result (test code = 4409) Compatible ISBT Blood Type Code (test code = 499627) 6200 Unit Blood Type (test code = 4410) A Pos Unit Number (test code = 4411) [id number] Blood Expiration Date & Time (test code = 633701) 208216455076 Status Information (test code = 4412) Issued Product Identification (test code = 4413) Red Blood Cells Product Code (test code = 4414) [id number] Performed at [facility] Laboratory Services [facility] Blood [address] [place] [address]Enit Free: [phone] No. [id number] [facility] HospitalArterial Qvmm6177-01-01 01:12:00Bashir Carvalho MD ? ? 12/03/2023 ?8:44 [...] forComments: ? Tegaderm CHG applied. [facility] SyuclyZttqlikoqx4964-50-93 00:57:00Bashir Carvalho MD ? ? 12/03/2023 ?8:42 PMIntubationDate/Time: 12/03/2023 7:57 PMUrgency: elective Airway not difficult General Information and Staff Patient location during procedure: ORPerformed: resident/DIRECTOR DIGITAL Performed by: Stan Izquierdo MDAuthorized by: Kentrell [...] ?Lips, gums, teeth, and nose unchanged vs. preop.[facility] P[facility] W DQQSPSWI6721-04-88 23:18:25EXAM: CT ABDOMEN AND PELVIS WITH CONTRAST [...] the spine, sacroiliac joints and hips is present.[facility] ABDOMEN PELVIS W CONTRAST 2023-12-03 23:18:25EXAM: CT [...] the spine, sacroiliac joints and hips is present.[facility] ABDOMEN PELVIS W CONTRAST 2023-12-03 23:14:34EXAM: CT [...] the spine, sacroiliac joints and hips is present.[facility] PEL[facility] W CJCFVWMY3751-04-82 23:14:34EXAM: CT ABDOMEN AND PELVIS WITH CONTRAST [...] the spine, sacroiliac joints and hips is present.[facility] 21 + Lactic Jlaa6870-98-69 21:02:46* Test Item Value Reference Range Interpretation Comme nts PH (test code = 6126644380) 7.44 7.32-7.42 H PCO2 GE (test code = 9498809513) 31 41-51 L PO2 GE (test code = 4180903319) 33 25-40 HCO3 GE (test code = 0574344171) 21 24-28 L AC VBE(BEAKER) (test code = 2079119228) -3.0 mEq/L THB GE (test code = 8110785773) 9.3 g/dL 12.0-16.0 L %O2HB GE (test code = 1229275196) 63.2 % 52.0-63.0 H %COHB GE (test code = 3217877806) 1.6 % 0.0-1.5 H %METHB GE (test code = 1620032898) 0.3 % 0.4-1.5 L VOL%O2 GE (test code = 7270639052) 8.3 % 6.0-12.0 NA (test code = 4646661124) 134 mmol/L 135-145 L K+ (test code = 1489615554) 5.4 mmol/L 3.5-5.0 H AC CA IONZ (test code = 3687865107) 4.50 mg/dL 4.50-5.30 GLUCOSE (test code = 4876683153) 126 mg/dL 70-110 H LACTIC ACID (test code = 0619291207) 3.03 mmol/L 0.50-2.20 H Lab Interpretation (test cod e = 83649-2) [facility]normal [facility] 21 + Lactic Yzzy9098-26-69 21:02:46* Test Item Value Reference Range Interpretation Comme nts PH (test code = 7509274408) 7.44 7.32-7.42 H PCO2 GE (test code = 0722358177) 31 41-51 L PO2 GE (test code = 1019851199) 33 25-40 HCO3 GE (test code = 2933761891) 21 24-28 L AC VBE(BEAKER) (test code = 3741813351) -3.0 mEq/L THB GE (test code = 8918806693) 9.3 g/dL 12.0-16.0 L %O2HB GE (test code = 9185624186) 63.2 % 52.0-63.0 H %COHB GE (test code = 3272106797) 1.6 % 0.0-1.5 H %METHB GE (test code = 3097157885) 0.3 % 0.4-1.5 L VOL%O2 GE (test code = 0926784511) 8.3 % 6.0-12.0 NA (test code = 7092817979) 134 mmol/L 135-145 L K+ (test code = 5030858711) 5.4 mmol/L 3.5-5.0 H AC CA IONZ (test code = 4599643901) 4.50 mg/dL 4.50-5.30 GLUCOSE (test code = 2512826143) 126 mg/dL 70-110 H LACTIC ACID (test code = 4670253118) 3.03 mmol/L 0.50-2.20 H Lab Interpretation (test cod e = 94612-8) Abnormal [facility] with Mail7940-86-26 20:26:23* Test Item Value Reference Range Interpretation [...] 31.6 g/dL 31.6-35.1 RDW-SD (test code = 14872-7) 58.9 fL 39.0-49.9 H RDW-CV (test code = 788-0) 22.5 % 12.0-15.5 H PLT (test code = 777-3) 758 166-358 H MPV (test code = 45349-5) 9.1 fL 9.5-12.9 L NRBC/100 WBC (test code = 6040603666) 0.2 0.0-10.0 NRBC x10^3 (test code = 2664734906) 0.04 See_Comment [Automated message] The system which generated this result transmitted reference range: 10*3/?L. The reference range was not used to interpret this result as normal/abnormal. GRAN MAT (NEUT) % (test code = 770-8) 80.5 % IMM GRAN % (test code = 5578719760) 1.30 % LYMPH % (test code = 736-9) 14.5 % MONO % (test code = 5905-5) 3.2 % EOS % (test code = 713-8) 0.3 % BASO % (test code = 706-2) 0.2 % GRAN MAT x10^3(ANC) (test code = 7316189350) 14.69 10*3/uL 1.88-7.09 H IMM GRAN x10^3 (test code = 8145010522) 0.23 10*3/uL 0.00-0.06 H LYMPH x10^3 (test [...] result as normal/abnormal. BANDS (test code = 4319743860) MARKED INCREASED A DOHLE BODIES (test code = 7792-5) Present A Lab Interpretation (test code = 94267-8) Abnormal [facility] with Cowe0163-88-74 20:26:23* Test Item Value Reference Range Interpretation [...] 31.6 g/dL 31.6-35.1 RDW-SD (test code = 25363-6) 58.9 fL 39.0-49.9 H RDW-CV (test code = 788-0) 22.5 % 12.0-15.5 H PLT (test code = 777-3) 758 166-358 H MPV (test code = 78684-0) 9.1 fL 9.5-12.9 L NRBC/100 WBC (test code = 2587480101) 0.2 0.0-10.0 NRBC x10^3 (test code = 0300581146) 0.04 See_Comment [Automated message] The system which generated this result transmitted reference range: 10*3/?L. The reference range was not used to interpret this result as normal/abnormal. GRAN MAT (NEUT) % (test code = 770-8) 80.5 % IMM GRAN % (test code = 5014756793) 1.30 % LYMPH % (test code = 736-9) 14.5 % MONO % (test code = 5905-5) 3.2 % EOS % (test code = 713-8) 0.3 % BASO % (test code = 706-2) 0.2 % GRAN MAT x10^3(ANC) (test code = 9565058662) 14.69 10*3/uL 1.88-7.09 H IMM GRAN x10^3 (test code = 1016976728) 0.23 10*3/uL 0.00-0.06 H LYMPH x10^3 (test [...] result as normal/abnormal. BANDS (test code = 9870025006) MARKED INCREASED A DOHLE BODIES (test code = 7792-5) Present A Lab Interpretation (test code = 13841-7) Abnormal [place] 05294024-09-08 20:09:14* Test Item Value Reference Range Interpretation Comme [facility] APTT Patient (test code = 3173-2) -36 Lab Interpretation (test cod e = 95558-6) Normal [facility] HospitalProth[facility] Time / [id number] 20:09:14* Test Item Value Reference Range Interpretation Comme [facility] PROTIME PATIENT (test code = 5964-2) 23.6 10.1-12.6 H INR (test code = 6301-6) 2.2 Normal INR <1.1; Warfarin Therapeutic range 2.0 to 3.0 or 2.5 to 3.5, depending upon the indications. Lab Interpretation (test code = 69848-9) Abnormal [facility] HospitalaPTT2024-09-08 20:09:14* Test Item Value Reference Range Interpretation Comme nts APTT Patient (test code = 3173-2) 30 -36 Lab Interpretation (test cod e = 29984-7) Normal [facility] HospitalProthrombin Time / [id number] 20:09:14* Test Item Value Reference Range Interpretation Comme nts PROTIME PATIENT (test code = 5964-2) 23.6 10.1-12.6 H INR (test code = 6301-6) 2.2 Normal INR <1.1; Warfarin Therapeutic range 2.0 to 3.0 or 2.5 to 3.5, depending upon the indications. Lab Interpretation (test code = 75222-6) [facility] (21854) (ALB,T.PRO,BILI T,BU/BC,ALT,AST,ALK PHOS)2023-12-03 20:08:54* Test Item Value Reference Range Interpretation Comme nts TOTAL BILI (test code = 4691975982) 0.9 mg/dL 0.1-1.1 BILI UNCON (test code = 2364885307) 0.1 mg/dL 0.1-1.1 BILI CONJ (test code = 9800344509) 0.0 mg/dL 0.0-0.3 T PROTEIN (test code = 3801643626) 7.4 g/dL 6.3-8.2 ALBUMIN (test code = 8813501141) 3.1 g/dL 3.5-5.0 L ALK PHOS (test code = 9692842472) 141 U/L 34-122 H ALTv (test code = 1742-6) 14 U/L 5-35 AST(SGOT) (test code = 6380236860) 49 U/L 13-40 H Lab Interpretation (test cod e = 00039-1) [facility] (NA, K, CL, CO2, GLUCOSE, BUN, CREATININE, CA)2023-12-03 20:08:54* Test Item Value Reference Range Interpretation Comme nts NA (test code = 9176069428) 134 mmol/L 135-145 L K (test code = 5141990308) 4.9 mmol/L 3.5-5.0 Slight hemolysis CL (test code = 0364018350) 103 mmol/L 98-108 CO2 TOTAL (test code = 6446988332) 21 mmol/L 23-31 L AGAP (test code = 7041004461) 10 2-16 BUN (test code = 2882765819) 28 mg/dL 7-23 H Slight hemolysis GLUCOSE (test code = 8297699740) 137 mg/dL 70-110 H CREATININE (test code = 2160-0) 0.96 mg/dL 0.50-1.04 CALCIUM (test code = 1133842333) 9.1 mg/dL 8.6-10.6 eGFR (test code = 00747-7) 61.8 mL/min/1.73m2 CKD-EPI eGFR (2020). Assuming creatinine has been stable day-to-day for at least three months, the eGFR indicates Category G2 (60 - 89 mL/min/1.73 m2) Lab Interpretation (test code = 86885-8) [facility] (22381) (ALB,T.PRO,BILI T,BU/BC,ALT,AST,ALK PHOS)2023-12-03 20:08:54* Test Item Value Reference Range Interpretation Comme nts TOTAL BILI (test code = 4745462983) 0.9 mg/dL 0.1-1.1 BILI UNCON (test code = 8331231936) 0.1 mg/dL 0.1-1.1 BILI CONJ (test code = 2051182589) 0.0 mg/dL 0.0-0.3 T PROTEIN (test code = 5970887501) 7.4 g/dL 6.3-8.2 ALBUMIN (test code = 8799820887) 3.1 g/dL 3.5-5.0 L ALK PHOS (test code = 1941345347) 141 U/L 34-122 H ALTv (test code = 1742-6) 14 U/L 5-35 AST(SGOT) (test code = 1266743871) 49 U/L 13-40 H Lab Interpretation (test cod e = 93725-3) [facility] (NA, K, CL, CO2, GLUCOSE, BUN, CREATININE, CA)2023-12-03 20:08:54* Test Item Value Reference Range Interpretation Comme nts NA (test code = 3870654663) 134 mmol/L 135-145 L K (test code = [id number]) 4.9 mmol/L 3.5-5.0 Slight hemolysis CL (test code = 7281902520) 103 mmol/L 98-108 CO2 TOTAL (test code = 3032749974) 21 mmol/L 23-31 L AGAP (test code = 1043098440) 10 2-16 BUN (test code = 0859730031) 28 mg/dL 7-23 H Slight hemolysis GLUCOSE (test code = 2020363138) 137 mg/dL 70-110 H CREATININE (test code = 2160-0) 0.96 mg/dL 0.50-1.04 CALCIUM (test code = 2200896647) 9.1 mg/dL 8.6-10.6 eGFR (test code = 50526-6) 61.8 mL/min/1.73m2 CKD-EPI eGFR (2020). Assuming creatinine has been stable day-to-day for at least three months, the eGFR indicates Category G2 (60 - 89 mL/min/1.73 m2) Lab Interpretation (test code = 27325-8) [facility]normal [facility] 16:51:45* Test Item Value Reference Range Interpretation Comme nts Fibrinogen (test code = 8137997548) 949 mg/dL 167-453 H Lab Interpretation (test cod e = 32809-6) [facility]normal [facility] 16:51:45* Test Item Value Reference Range Interpretation Comme nts Fibrinogen (test code = 7560985609) 949 mg/dL 167-453 H Lab Interpretation (test cod e = 86729-8) Abnormal [facility] Hospital[facility] Partial Thrmplas Ebd0267-97-21 16:49:04* Test Item Value Reference Range Interpretation Comme [facility] APTT Patient (test code = 3173-2) 30 -36 Lab Interpretation (test cod e = 87889-6) Normal [facility]Prothrombin Time / [id number] 16:49:04* Test Item Value Reference Range Interpretation Comme nts PROTIME PATIENT (test code = 5964-2) 23.7 10.1-12.6 H INR (test code = 6301-6) 2.2 Normal INR <1.1; Warfarin Therapeutic range 2.0 to 3.0 or 2.5 to 3.5, depending upon the indications. Lab Interpretation (test code = 90505-6) Abnormal [facility] Ron9367-03-93 16:49:04* Test Item Value Reference Range Interpretation Comme [facility] APTT Patient (test code = 3173-2) 30 26-36 Lab Interpretation (test cod e = 65905-0) Normal [facility] Time / [id number] 16:49:04* Test Item Value Reference Range Interpretation Comme nts PROTIME PATIENT (test code = 5964-2) 23.7 10.1-12.6 H INR (test code = 6301-6) 2.2 Normal INR <1.1; Warfarin Therapeutic range 2.0 to 3.0 or 2.5 to 3.5, depending upon the indications. Lab Interpretation (test code = 39866-4) [facility]normal [facility] and Screen - ONCE [id number] 12:41:00 * Test Item Value Reference Range Interpretation Comme nts ABO & RH (test code = 20) A POSITIVE IAT (test code = 1185) Negative [facility] and Screen - ONCE [id number] 12:41:00 * Test Item Value Reference Range Interpretation Comme nts ABO & RH (test code = 20) A POSITIVE IAT (test code = 1185) Negative [facility] HospitalL[facility] Acid Whole Bjspl6993-21-14 08:18:44* Test Item Value Reference Range Interpretation Comme nts LACTIC ACID (test code = 3792715540) 1.53 mmol/L 0.50-2.20 Lab Interpretation (test cod e = 12029-2) Normal [facility] HospitalL[facility] Acid Whole Teptk7142-52-65 08:18:44* Test Item Value Reference Range Interpretation Comme nts LACTIC ACID (test code = 1010020548) 1.53 mmol/L 0.50-2.20 Lab Interpretation (test cod e = 89069-2) Normal [facility] HospitalTransthoracic echo (TTE) Ogpvenu9138-25-48 18:29:05* Test Item Value Reference Range Interpretation Comme nts Height (test code = 2367048100) 67 in Weight (test code = 8833150255) 379 lbs Systolic BP (test code = 0763136408) 160 mmHg Diastolic BP (test code = 2244032749) 66 mmHg Heart Rate (test code = 6845640543) 82 bpm LVOT stroke volume (test code = 7988243260) 58.40 cm3 EF(Teich) (test code = 5174894792) 69.80 % LVIDD (test code = 4934212560) 4.10 cm LVIDS (test code = 4959918569) 2.50 cm Left Ventricular End Systolic Volume by Teichholz Method (test code = 6296011) 23.0 mL Left Ventricular End Diastolic Volume by Teichholz Method (test code = 1558877) 76.0 mL IVS (test code = 2125698185) 1.20 cm LVPWD (test code = 1199652045) 1.17 cm LVOT diameter (test code = 3977614391) 1.91 cm LVOT area (test code = 6503935262) 2.90 cm2 FS (test code = 0425959376) 39 % MV Peak E Chapo (test code = 8414488508) 125.1 cm/s E wave decelartion time (test code = 4434214819) 0.23 s LA Volume Index (BP) (test code = 4036001698) 34.4 mL/m2 LA volume (BP) (test code = 6078417068) 91.4 mL LVOT peak chapo (test code = 2940465743) 123.3 cm/s LVOT mn grad (test code = 5787712727) 3.0 mmHg BSA (test code = 2540722737) 2.7 m2 LA size (test code = 7245552017) 5.1 cm LAV(MOD-sp2) (test code = 6569782735) 90.40 mL LAV(MOD-sp4) (test code = 4760583492) 88.80 mL Tapse (test code = 8475283556) 1.13 cm Ao peak chapo (test code = 8310934128) 157.5 cm/s AV LVOT peak gradient (test code = 1645762211) 6.1 mmHg LVOT peak VTI (test code = 8624743042) 20.5 cm AV area peak chapo (test code = 8340711432) 2.2 cm2 LV V1 mean (test code = 7163170648) 80.90 cm/s Ao max PG (test code = 4391780053) 9.90 mm[Hg] MV Prop V (test code = 6494702508) 62.20 cm/s TR Peak Chapo (test code = 4670520479) 287.8 cm/s Triscuspid Valve Regurgitation Peak Gradient (test code = 5015270129) 33.1 mmHg Ao root diam (test code = 7992523722) 3.10 cm AV peak gradient (test code = 8009011964) 9.9 mmHg Aortic root (test code = 1129278959) 3.1 cm Ao root annulus (test code = 0132089801) 3.1 cm PW (test code = 4450374269) 1.17 cm 0.6-1.1 EF - 2D (test code = 30869075) 69.80 % Interventricular Septum Diastolic Thickness by 2D (test code = 1199930) 1.20 cm Radiology Study observation (narrative) (test code = 84994-3) JESSICA (test code = JESSICA) ?Left?Ventricle: Left [...] 2 mL of Patient exhibited atrial fibrillation. [facility] HospitalUS RETROPERITONEAL [id number] 14:55:16 US RETROPERITONEAL LIMITED 11/21/2023 6:15 AM HISTORY: bilateral ureterohydronephrosis . COMPARISON:None. Correlation CT abdomen dated 11/20/2023. FINDINGS: RIGHT KIDNEY: The renal length measures 12.7 cm. Normal cortical thicknessand echotexture. Mild hydronephrosis with AP diameter of the renal pel vismeasuring 1.5 cm. No mass or stone. LEFT KIDNEY: Not clearly assessed due to significant bowel gases.[facility] HospitalPrepare Packed RBC (in units), 1 Dpiux5991-60-85 11:09:04* Test Item Value Reference Range Interpretation Comme nts Cross Match Result (test code = 4409) Compatible ISBT Blood Type Code (test code = 544267) 6200 Unit Blood Type (test code = 4410) A Pos Unit Number (test code = 4411) [id number] Blood Expiration Date & Time (test code = 793549) [id number] Status Information (test code = 4412) Issued Product Identification (test code = 4413) Red Blood Cells Product Code (test code = 4414) [id number] Performed at [facility] B Laboratory Services [facility] Blood [address] [place] [address] [id number] Free: [phone] No. [id number] [facility] HospitalLactic Acid Whole Xawnd4350-51-98 04:23:24* Test Item Value Reference Range Interpretation Comme nts LACTIC ACID (test code = 9657887065) 1.38 mmol/L 0.50-2.20 Lab Interpretation (test cod e = 49150-1) Normal [facility] HospitalReticulocytes Vwxqadgkg5223-48-27 03:16:45* Test Item Value Reference Range Interpretation Comme nts RETIC Count Automated (test code = 7632154431) 1.32 % 0.51-1.90 RETIC Absolute Count (test c ode = 7473962198) 0.0478 0.0230-0.0950 IRF % (test code = 7909683312) 29.60 % 2.10-12.60 H RETIC-HE (test code = 3604092597) 25.1 pg 28.1-35.8 L Lab Interpretation (test cod e = 93736-4) Abnormal [facility] GLUCOSE (AUTOMATED)2023-11-21 01:30:47* Test Item Value Reference Range Interpretation Comme nts POCT GLU (test code = 2450818125) 129 mg/dL 70-110 H Lab Interpretation (test cod e = 80206-4) Abnormal [facility] GLUCOSE (AUTOMATED)2023-11-20 23:14:41* Test Item Value Reference Range Interpretation Comme nts POCT GLU (test code = 8041374196) 197 mg/dL 70-110 H Lab Interpretation (test cod e = 01429-4) Abnormal [facility] Glucose (AGE >30 DAYS) - Prior to Insulin Bolus Administration - See Lrqpzyle2800-02-83 21:25:00* Test Item Value Reference Range Interpretation Comme nts POCT Glu (age>30days) (test code = 3342) 109 mg/dL 70-110 Lab Interpretation (test cod e = 37748-2) Normal [facility] GLUCOSE (AUTOMATED)2023-11-20 21:21:42* Test Item Value Reference Range Interpretation Comme nts POCT GLU (test code = 0797383950) 109 mg/dL 70-110 Lab Interpretation (test cod e = 75497-9) Normal [facility] acute hospital ABDOMEN PELVIS WO [id number] 20:39:17ORDERING PHYSICIAN: PABLO CHINCHILLA HISTORY: Peritonitis or [...] atheroscleroticcalcifications. No lymphadenopathy. Bones: No acute abnormality. [facility] with Uctz2326-66-60 18:35:31* Test Item Value Reference Range Interpretation [...] g/dL 31.6-35.1 L RDW-SD (test code = 46037-6) 55.5 fL 39.0-49.9 H RDW-CV (test code = 788-0) 20.8 % 12.0-15.5 H PLT (test code = 777-3) 410 166-358 H MPV (test code = 45715-2) 9.6 fL 9.5-12.9 NRBC/100 WBC (test code = 5957020826) 0.0 0.0-10.0 NRBC x10^3 (test code = 7976138229) See_Comment [Automated message] The system which generated this result transmitted reference range: 10*3/?L. The reference range was not used to interpret this result as normal/abnormal. GRAN MAT (NEUT) % (test code = 770-8) 87.7 % IMM GRAN % (test code = 6507086316) 1.10 % LYMPH % (test code = 736-9) 6.3 % MONO % (test code = 5905-5) 4.1 % EOS % (test code = 713-8) 0.4 % BASO % (test code = 706-2) 0.4 % GRAN MAT x10^3(ANC) (test code = 6232644548) 17.31 10*3/uL 1.88-7.09 H IMM GRAN x10^3 (test code = 6285222787) 0.22 10*3/uL 0.00-0.06 H LYMPH x10^3 (test code = 731-0) 1.24 10*3/uL 1.32-3.29 L MONO x10^3 (test code = 742-7) 0.81 10*3/uL 0.33-0.92 EOS x10^3 (test code = 711-2) 0.07 10*3/uL 0.03-0.39 BASO x10^3 (test code = 704-7) 0.07 10*3/uL 0.01-0.07 ELLIPTO/OVAL (test code = 44886-3) 2+ See_Comment A [Automated message] The system which generated this result transmitted reference range: (none). The reference range was not used to interpret this result as normal/abnormal. SPHEROCYTES (test code = 802-9) 1+ A BANDS (test code = 3163947164) Increased A TOXIC CHANGES (test code = 803-7) Present A Lab Interpretation (test code = 94577-2) Abnormal [facility] HospitalLactic Acid Whole Naxje8818-36-44 17:22:29* Test Item Value Reference Range Interpretation Comme nts LACTIC ACID (test code = 7213190968) 2.98 mmol/L 0.50-2.20 H Lab Interpretation (test cod e = 15646-3) Abnormal [facility] Consult Notes Date/Time Note Provider Source 2023-12-20 [...] Liliana Veronica, PT, DPT Liliana Veronica PT [facility] 2023-12-18 11:00:00 Associated Order(s): CONSULT VASCULAR ACCESS Vascular Access Services VAS was consulted for midline insertion. Per nursing the current midline is functioning properly without any complications. No need for new midline at this moment. [facility] 2023-12-15 17:42:57 Associated Order(s): CONSULT WOUND, OSTOMY, OR CONTINENCE CARE TEAM Q 6 hour dressing changes are not WOCN orders but instead bedside RN orders. Dr Garner made aware. Antoinette Abbott RN 12/15/2023 5:44 PM Antoinette Abbott RN [facility] 2023-12-14 08:59:14 Summary: WOCN- WTA Follow up [...] asked were answered. Antoinette PADILLA, RN-BC, WTA [facility] 2023-12-12 16:01:40 Associated Order(s): CONSULT CARDIOLOGY See cardio note from today. Cardio previously consulted this admission. Associated attestation - Lencho Daugherty MD - 12/12/2023 4:15 PM CDT [facility] 2023-12-12 08:58:40 Associated Order(s): CONSULT HEMATOLOGY HEMATOLOGY [...] be removed in outpatient setting. Presented to [facility] on 12/03/2023 with AMS and hollow viscus [...] fluticasone propionate 50 mcg/actuation nasal spray 1 Sparks, 1 Sparks, Nasal, BID, Donna Garner MD, 1 Sparks at 12/11/23 0840 pantoprazole (PROTONIX) EC tablet 40 mg, 40 mg, Oral, DAILY, Sukhwinder Almodovar MD, 40 mg at 12/11/23 0839 sodium chloride (OCEAN MIST NASAL) 0.65 % nasal spray 1 Sparks, 1 Sparks, Nasal, BID, Donna Garner MD, 1 Sparks at 12/11/23 0840 Lidocaine (LIDOCARE) 4 % [...] resident's note for additional details. INTERNAL MEDICINE [facility] 2023-12-11 16:00:00 Associated Order(s): CONSULT VASCULAR ACCESS Vascular Access Services VAS was consulted for midline insertion. Consult has been acknowledged, and the patient's medical chart has been reviewed. Please see procedural note. [facility] 2023-12-10 11:16:00 Associated Order(s): CONSULT ADULT PHYSICAL THERAPY PT Note Duplicate Consult. PT will continue to follow. Donny Montana PT, DPT Rehabilitation Services [facility] 2023-12-10 11:07:00 Associated Order(s): CONSULT ADULT OCCUPATIONAL THERAPY 12/11/2023 OCCUPATIONAL THERAPY NOTE: Duplicate consult. Maryjane Hernandez, OTR License #[id number] Maryjane Hernandez OT [facility] 2023-12-07 09:32:00 Associated Order(s): CONSULT ADULT OCCUPATIONAL THERAPY OT GENERAL EVALUATION Consult received via [employer], EMR reviewed and evaluation completed 12/07/23. Patient [...] bilateral AROM WFL UE Strength: GARCIA hand tester vibrator equipment 4/5 Hand dominance: right Dexterity/Coordination: bilateral Gross [...] of skill. Muna Price, OTR, OTD Pager: [phone] Total Timed Treatment Codes: 23 Min Total [...] to enable patient to complete evaluation component. [facility] 2023-12-07 09:30:00 Associated Order(s): CONSULT ADULT PHYSICAL [...] was unable to rate. COMMUNICATION Primary Language: Ivorian Able to Verbalize needs: Yes Vision:good; no [...] encounter dated 12/07/23. Angus Romero PT, DPT [facility] Physical Therapy Rehabilitation Services A physical [...] clinical presentation with unstable and unpredictable characteristics [facility] 2023-12-05 14:51:43 Associated Order(s): CONSULT NEPHROLOGY NEPHROLOGY CONSULT NOTE Consultation requested by: Service: Trauma ICU Reason for Consultation: NAOMY Date of Service: 12/05/2023 History of Present Illness: Zarina Grier is a 73 year old female with PMHx of afib, morbid obesity, and constipation transferred from [facility] for altered mental status and found [...] N/A 12/03/2023 Surgeon: Taylor Segundo MD; Location: [facility] OR LOCATION SECTION 1985 EXPLORATORY LAPAROTOMY N/A 12/03/2023 Surgeon: Taylor Segundo MD; Location: [facility] OR LOCATION FECAL DISIMPACTION N/A 12/03/2023 Surgeon: Taylor Segundo MD; Location: [facility] OR LOCATION TUBAL LIGATION No Known Allergies [...] pulmonary process. END REPORT RL: 460 AFC: [id number] CHEST 1 VW Result Date: 12/05/2023 Impression: Endotracheal tube terminates 5.1 cm above the sera. Right internal jugular central venous catheter terminates in the right atrium, approximately 4 cm below the level of the cavoatrial junction. Stable moderate cardiomegaly without acute pulmonary process. END REPORT RL: 460 AFC: [id number] KUB Result Date: 12/04/2023 FINDINGS/IMPRESSION: Enteric tube with tip projecting over the distal esophagus. Further advancement recommended. Residual contrast is seen within the bilateral pyelocalyceal system. Lower abdominal not included within the kwwmw-pb-bvqw. [id number] dated 12/04/2023 at 2:39. FINDINGS/IMPRESSION: Enteric tube seen in similar position, projecting over distal esophagus. Advancement recommended. [id number] dated 12/04/2023 at 2:40. FINDINGS/IMPRESSION: Unchanged position [...] system. Lower abdominal not included within the nbwfu-er-afph. [id number] dated 12/04/2023 at 2:39. FINDINGS/IMPRESSION: Enteric tube seen in similar position, projecting over distal esophagus. Advancement recommended. [id number] dated 12/04/2023 at 2:40. FINDINGS/IMPRESSION: Unchanged position [...] system. Lower abdominal not included within the kqjsm-wx-ufpu. [id number] dated 12/04/2023 at 2:39. FINDINGS/IMPRESSION: Enteric tube seen in similar position, projecting over distal esophagus. Advancement recommended. [id number] dated 12/04/2023 at 2:40. FINDINGS/IMPRESSION: Unchanged position [...] Jaquez MD Nephrology and Hypertension Fellow Pager: [phone] Associated attestation - Eben Huitron MD - [...] the medical care provided. Eben Huitron MD [facility] Division of Nephrology & Hypertension NEPHROLOGY [facility] 2023-12-04 16:12:00 Associated Order(s): CONSULT WOUND, OSTOMY, OR CONTINENCE CARE TEAM [facility] Nurse Note Consult for post [...] appropriate. Michelle Alas RN 12/04/2023 4:20 PM [facility] 2023-12-04 13:48:31 Associated Order(s): CONSULT UROLOGY UROLOGY [...] N/A 12/03/2023 Surgeon: Taylor Segundo MD; Location: [facility] OR LOCATION SECTION 1985 EXPLORATORY LAPAROTOMY N/A 12/03/2023 Surgeon: Taylor Segundo MD; Location: [facility] OR LOCATION FECAL DISIMPACTION N/A 12/03/2023 Surgeon: Taylor Segundo MD; Location: [facility] OR LOCATION TUBAL LIGATION No family history [...] and digital vaginal exam preformed with nurse commercial underwriter after obtaining consent from daughter. Digital vaginal [...] Theodore MD Urology Resident Pager: please page physician neonatology using [employer] Associated attestation - Pablo Light MD - 12/09/2023 12:08 PM CDT I discussed the patient with Dr. Theodore, and agree with his assessment and plan. I participated in the decision making process. UROLOGY [facility] 2023-12-04 10:44:56 Associated Order(s): CONSULT CARDIOLOGY Cardiology Consult Note Date of Service: 12/04/2023 13:09 Reason for consult: Give recs on patient with afib RVR History of Present Illness: Zarina Grier is a 73 year old female with PMHx of afib, morbid obesity, and constipation transferred from [facility] for altered mental status and found [...] this time. She does not see a manager specialty regularly. ROS: Per HPI Past Medical History: [...] and management service. Steven Mancia MD, SHANNON Electronic Technician, PGY 4 Associated attestation - [place] [...] need a 30-day event monitor on discharge. [facility] 2023-12-03 13:50:00 BRIEF INTERVENTIONAL RADIOLOGY CONSULT NOTE [...] the resident's note. VASCULAR & INTERVENTIONAL RADIOLOGY [facility] 2023-11-22 10:15:00 Associated Order(s): CONSULT ADULT PHYSICAL [...] reduction, and Repositioning Provided COMMUNICATION Primary Language: Ivorian Able to Verbalize needs: Yes Vision:glasses Hearing:good; [...] min Santhosh Mustafa PT Santhosh Mustafa PT [facility] 2023-11-21 15:30:00 Associated Order(s): CONSULT ADULT OCCUPATIONAL THERAPY OT GENERAL EVALUATION Consult received via [employer], EMR reviewed and evaluation completed 11/21/23. Patient [...] commode, Tub transfer bench, and Long handled figure clerk PLAN OF CARE: At least 2x/week Precautions: [...] enable patient to complete evaluation component. T [facility] - Health History and Physical Notes Date/Time Note Provider Source 2023-12-03 03:09:54 ACS SURGERY H&P Date of Service: 12/03/2023 Chief Complaint: hollow viscus perforation HPI Zarina Grier is a 73 year old female history of afib, morbid obesity, constipation who presents as transfer from [facility] for altered mental status, found to [...] procedures): 150 min Taylor Segundo MD, PhD Bakery Supervisor Trauma, Acute Care Surgery, and Surgical Critical Care In-house Pager: [phone] [facility] 2023-11-20 17:50:40 ARNOLD TEAM ADMIT H&P DATE OF SERVICE: 11/20/2023 PCP: PATIENT DOES NOT HAVE A PCP CHIEF COMPLAINT: abdominal pain HISTORY OF PRESENT ILLNESS: Zarina Grier is a 73 year old female with PMH of scoliosis who presents as a transfer from [facility] for abdominal pain. Patient initially presented to the [facility] ED with daughter due to complaints [...] hallucinations at this time. Daughter (Luanne Grier; [phone]) was contacted to elicit further history. Daughter [...] details. Juni Nagy MD Division of Internal Travel ConsultantBakery Supervisor [facility] Procedure Notes Date/Time Note Provider Source 2023-12-11 17:00:00 Vascular Access Services A bedside timeout was conducted before procedure with Hailey Carvalho RN. An ultrasound guided, 4fr 10cm. MIDLINE was then placed in the left cephalic vein, in 1 attempt(s). Local anesthetic was not used. Labs were not obtained. REF#: [id number] Lot #: [id number] Exp: 05/24/2025 Kaushik Sherman RN [facility] 2023-12-04 20:16:40 Procedure(s): ARTERIAL LINE ARTERIAL LINE [...] Trauma and Acute Care Surgery Faculty SURGERY [facility] 2023-12-04 19:58:12 Procedure(s): CENTRAL LINE CENTRAL LINE [...] MD Trauma and Acute Care Surgery [facility] SURGERY [facility] 2023-12-03 20:43:59 Associated Order(s): Arterial Line Arterial [...] accounted for Comments: Tegaderm CHG applied. AN-ANESTHESIOLOGY [facility] 2023-12-03 20:41:41 Associated Order(s): Intubation Intubation Date/Time: 12/03/2023 7:57 PM Urgency: elective Airway not difficult General Information and Staff Patient location during procedure: OR Performed: resident/DIRECTOR DIGITAL Performed by: Stan Izquierdo MD Authorized by: [...] gums, teeth, and nose unchanged vs. preop. [facility] Notes Date/Time Note Provider Source 2024-01-01 15:06:39 TRANSITIONAL CARE MANAGEMENT ASSESSMENT 01/01/2024 Zarina Grier [id number] Zarina Grier is a 73 year old /White female was admitted on 12/03/[address] She was discharged on 12/29/23 with discharge disposition of HR- Routine Discharge. Admitting Physician: Jr Saravia Discharge Diagnosis: K63.1 Colon perforation (primary encounter diagnosis) R10.9 Abdominal pain, unspecified abdominal location I48.20 Chronic atrial fibrillation No linked episodes TCM Cea-xikj-br-face outreach documentation: CM made follow up call to patient post-discharge. No answer and call went to voicemail. CM left a discreet message with purpose of call and CM's call back information. Two attempts made to reach patient. Future Appointments: T Cinthya Andrade RN [facility] 2024-01-01 09:44:56 CM made follow up call to patient post-discharge. No answer and call went to voicemail. CM was unable to leave a voicemail or there was no option to leave a voicemail. T [facility] 2023-12-28 17:44:58 Problem: Falls, Risk of Goal: [...] Outcome: Progressing as expected Nel Pierce RN [facility] 2023-12-27 17:05:09 At 1400 I removed the [...] ready to go home. Mimi Zuñiga RN [facility] 2023-12-27 10:08:12 Problem: Falls, Risk of Goal: [...] of restraint-related injury Outcome: Progressing as expected [facility] 2023-12-26 20:40:27 Problem: Falls, Risk of Goal: Absence of falls Outcome: Progressing as expected Problem: Infection Risk Goal: Absence of infection Outcome: Progressing as expected Problem: Skin integrity Impaired (Risk or Actual) Goal: Wound healing Outcome: Progressing as expected T Thomas Andre RN [facility] 2023-12-26 09:38:50 Problem: Falls, Risk of Goal: [...] of restraint-related injury Outcome: Progressing as expected [facility] 2023-12-25 10:38:46 Problem: Falls, Risk of Goal: Absence of falls Outcome: Progressing as expected [facility] Hailey Carvalho RN [facility] 2023-12-25 00:32:57 Problem: Falls, Risk of Goal: [...] of cognitive ability Outcome: Progressing as expected [email or web address] 2023-12-24 00:56:29 Problem: Falls, Risk of Goal: [...] of cognitive ability Outcome: Progressing as expected [facility] 2023-12-23 18:14:24 Problem: Falls, Risk of Goal: [...] of restraint-related injury Outcome: Progressing as expected [facility] 2023-12-23 18:00:00 Problem: Falls, Risk of Goal: [...] Nel Pierce RN Outcome: Progressing as expected [facility] 2023-12-22 23:21:44 Problem: Falls, Risk of Goal: Absence of falls 12/22/20232320 by aJrek Butt RN Outcome: Progressing as expected 12/22/20232320 [...] Jarek Butt RN Outcome: Progressing as expected [facility] 2023-12-22 15:59:01 Problem: Falls, Risk of Goal: Absence of falls 12/22/2023 1556 by Nel Pierce RN Outcome: Progressing as expected 12/22/2023 1554 by Nle Pierce RN Outcome: Progressing as expected Problem: [...] Nel Pierce RN Outcome: Progressing as expected [facility] 2023-12-21 11:59:03 Problem: Falls, Risk of Goal: [...] of restraint-related injury Outcome: Progressing as expected [facility] 2023-12-21 04:33:41 Patient refused morning labs. Paged MD to notify. [facility] Sylvia Riley RN [facility] 2023-12-21 00:49:48 Pt continues to refuse: ID [...] do not have order for suicide precautions. bird sitter remains at bedside. Room not set up for SI precautions d/t questionable need and lack of order. MD returned call and stated that primary team would not be coming to bedside to assess and that psych would be consulted to assess patient for any concerns in the morning. bird sitter remains at bedside and area within patients reach has been cleared of items that could cause harm. [facility] 2023-12-21 00:39:08 Problem: Falls, Risk of Goal: [...] of restraint-related injury Outcome: Progressing as expected [facility] [employer] 2023-12-20 11:33:30 Patient is still refusing to [...] on her later. The sitter is bedside. [facility] [employer] 2023-12-20 10:09:09 Problem: Falls, Risk of Goal: [...] Zuñiga RN Outcome: Progressing as expected T [facility] 2023-12-20 02:35:45 Problem: Falls, Risk of Goal: [...] Progressing as expected T Pablo Slaughter RN [facility] 2023-12-19 12:56:35 Problem: Falls, Risk of Goal: [...] is refusing care. T Danika Arredondo RN [facility] 2023-12-18 17:09:00 Pt is refusing to take [...] too so she left and went home. [facility] 2023-12-18 17:06:08 Problem: Falls, Risk of Goal: [...] of restraint-related injury Outcome: Progressing as expected [facility] 2023-12-17 22:01:46 Problem: Falls, Risk of Goal: [...] of restraint-related injury Outcome: Progressing as expected [facility] 2023-12-17 21:00:00 R'cd pt semi-fowlers in bed, [...] for any change in condition. Butt RN [facility] 2023-12-17 19:12:34 Problem: Falls, Risk of Goal: [...] injury Outcome: Progressing as expected [place] RN [facility] 2023-12-17 05:34:28 Spoke to Surgery residents about either arranging a sitter for the patient or obtaining n order for video monitoring as RN is concerned about the patient pulling out her midline. They will discuss this with the morning team and place necessary orders afterwards, Jeny Mac RN [facility] 2023-12-17 01:01:48 RN offered to change dressing twice for her wounds, pt refused each time stating she doesn't want it to done tonight. Will attempt to change it again, All wounds dressing changed, colostomy bag replaced. [facility] 2023-12-17 01:00:04 Problem: Falls, Risk of Goal: [...] of restraint-related injury Outcome: Progressing as expected [facility] 2023-12-16 13:35:59 Problem: Falls, Risk of Goal: [...] of cognitive ability Outcome: Progressing as expected [facility] [employer] 2023-12-16 07:21:15 Unsuccessful attempt X 2 to insert PIV d/t poor venous return site areas. MD aware of PIV need. [facility] [employer] 2023-12-16 00:47:51 Problem: Falls, Risk of Goal: [...] of restraint-related injury Outcome: Progressing as expected [employer] [facility] [employer] 2023-12-15 18:43:00 Primary nurse performed dressing change to LLQ abdominal surgical incision with Dakins solution, kerlex, abdominal pad, and foam tape. T Ginette Pang RN [facility] 2023-12-15 11:27:55 Problem: Falls, Risk of Goal: [...] restraint-related injury Outcome: Progressing as expected T [facility] 2023-12-15 02:44:13 Problem: Falls, Risk of Goal: [...] of cognitive ability Outcome: Progressing as expected [facility] 2023-12-15 01:32:08 0130-Trauma returning page by Beckie [...] a new line." T Chary Lozano RN [facility] 2023-12-14 12:42:01 HEMATOLOGY & ONCOLOGY BRIEF UPDATE [...] Adrian Tavares MD PGY6 - Heme/Onc Fellow [facility] Dept of Hematology and Oncology HEMATOLOGY & ONCOLOGY [facility] 2023-12-14 08:55:09 Problem: Falls, Risk of Goal: [...] Outcome: Progressing as expected Dayday Leal RN [facility] 2023-12-14 02:21:17 Problem: Falls, Risk of Goal: [...] injury Outcome: Progressing as expected Cortes RN [facility] 2023-12-13 11:44:13 Problem: Falls, Risk of Goal: [...] cognitive ability Outcome: Progressing as expected T [facility] 2023-12-13 06:04:16 Problem: Falls, Risk of Goal: [...] injury Outcome: Progressing as expected Matt RN [facility] 2023-12-12 13:12:46 This query is intended to [...] Schultz DO Emergency Medicine PGY-1 12/12/2023 13:17 [facility] [email or web address] 2023-12-12 05:19:58 Problem: Falls, Risk of Goal: [...] Goal: Effective communication Outcome: Progressing as expected [facility] [email or web address] 2023-12-11 06:49:01 Problem: Falls, Risk of Goal: [...] Outcome: Progressing as expected Miguel Monge RN [facility] 2023-12-10 08:37:18 Problem: Falls, Risk of Goal: [...] Outcome: Progressing as expected Scarlet Gaines RN [facility] 2023-12-09 23:28:17 Problem: Falls, Risk of Goal: [...] Outcome: Progressing as expected Maurisio Marie RN [facility] 2023-12-09 00:49:44 Problem: Falls, Risk of Goal: [...] Outcome: Progressing as expected Peggy Greenwood RN [facility] 2023-12-07 04:39:06 Problem: Falls, Risk of Goal: [...] Outcome: Progressing as expected Magui Mccray RN [facility] 2023-12-06 07:43:45 Problem: Falls, Risk of Goal: [...] Progressing as expected T Alexandria Barboza RN [facility] 2023-12-06 06:07:51 Problem: Falls, Risk of Goal: [...] Goal: Patent airway Outcome: Progressing as expected [facility] [email or web address] 2023-12-05 09:54:55 Problem: Falls, Risk of Goal: [...] Goal: Patent airway Outcome: Progressing as expected [facility] 2023-12-04 09:24:35 Problem: Falls, Risk of Goal: [...] Outcome: Progressing as expected Génesis Giles RN [facility] 2023-12-04 03:43:42 Addendum created 12/04/23 0343 by Stan Izquierdo MD Intraprocedure Meds edited AN-ANESTHESIOLOGY [facility] 2023-12-04 03:21:10 Patient: Zarina Grier Procedure Summary Date: 12/03/23 Room / Location: [address] [facility] Anesthesia Start: 1946 Anesthesia Stop: 09/09/24 0211 [...] and ventilator Hydration status: acceptable AN-ANESTHESIOLOGY ANESTHESIOLOGIST [facility] 2023-12-04 00:20:27 Daughter at bedside updated Tiffany Monique RN [facility] 2023-12-03 21:53:09 FULL OPERATIVE NOTE Date of [...] Care Surgery, Trauma, and Surgical Critical Care [facility] 2023-12-03 19:24:42 Name/ MRN / Age / Gender: Zarina Grier, [id number] 73 year old female BMI: Estimated body [...] (physical exam) Anesthesia Preop: Chart Review and [id number] 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 Hold on DOS. Phentermine: Alert [facility] anesthesiologist SGLT2 Inhibitors: "gliflozins" to [...] & antiemetics Recovery Plan: ICU Additional comments: [facility] 2023-12-03 06:31:30 Name/ MRN / Age / Gender: Zarina Grier, [id number] 73 year old female BMI: Estimated body [...] (no physical exam) Anesthesia Preop: Chart Review 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 Hold on DOS. Phentermine: Alert [facility] anesthesiologist SGLT2 Inhibitors: "gliflozins" to [...] Anesthesia Plan ASA Status: 4 emergent AN-ANESTHESIOLOGY [facility] 2023-12-03 03:31:57 Report given to Chris CALLE at this time. RN's discussed POC and further recommendations for care. Clifton Marcus RN [facility] 2023-12-03 03:24:56 Waiting for gen surg to leave to transport patient T [facility] 2023-12-03 03:13:16 General surgery at bedside T [facility] 2023-12-03 02:32:50 Zarina Grier is a 73 [...] surgery at this time. Rafael Juarez RN [facility] 2023-12-03 02:28:50 Gen surgery at bedside for assessment, pt placed on monitor Plan of care is OR T [facility] 2023-12-03 02:15:02 Zarina Grier is a 73 year old female who presents to see the general surgery team. Pt GCS 15, gen surgery paged at [phone], and are aware of pt's arrival. Raj Pastor RN [facility] 2023-11-28 10:10:51 Paged that patient requested refill on [place]. Refilled for 7 days but patient should follow-up in clinic for further refills. Ivan Rogers MD PGY-3, Internal Medicine T [facility] 2023-11-24 11:29:55 TRANSITIONAL CARE MANAGEMENT ASSESSMENT 11/24/2023 Zarina Grier [id number] Zarina Grier is a 73 year old /White female was admitted on 11/20/23 to [facility], [address] She was discharged on 11/23/23 with discharge disposition of HR- Routine Discharge. Admitting Physician: Stefanie Johnson Discharge Diagnosis: NAOMY 2/2 obstructive uropathy Citrobacter UTI No linked episodes TCM Yrk-mbxa-pi-face outreach documentation: Discharge Assessment Chart Assessed: 11/24/23 [...] use the medical supplies/equipment?: Yes DME Location: [place] [address] () [phone] (F) [phone] DME Other: DME List: [facility] Lift Follow Up Appointment Has [...] Yes Discharge Location: Home Health location: Other ([facility]) Other Home Health location: [facility] Survey - Recognition Is there anything you would like to share about your recent hospitalization, or anyone you would like to recognize?: No Do you have any suggestions for improvement?: No Do you have any other questions or concerns at this time?: No Nelson RN [facility] 2023-11-24 11:23:51 Dtr requesting a call to epi as reports she's currently working. [facility] 2023-11-23 14:44:31 Problem: Procedure Routine Goal: Absence of post-procedure complications 11/23/2023 1444 by Valerie Sood RN Outcome: Adequate for discharge 11/23/2023 1215 by Valerie Sood RN Outcome: Progressing as expected Goal: Knowledge of procedure 11/23/2023 1444 by Valreie Sood RN Outcome: Adequate for discharge 11/23/2023 [...] RN Outcome: Progressing as expected Sood RN [facility] 2023-11-23 12:15:20 Problem: Procedure Routine Goal: Absence [...] Absence of falls Outcome: Progressing as expected [facility] 2023-11-22 10:27:00 Problem: Procedure Routine Goal: Absence [...] Progressing as expected T Stephanie Altamirano RN [facility] 2023-11-22 01:06:55 Problem: Procedure Routine Goal: Absence [...] of cognitive ability Outcome: Progressing as expected [facility] Pablo Burroughs RN [facility] 2023-11-21 10:42:33 Problem: Procedure Routine Goal: Absence [...] of cognitive ability Outcome: Progressing as expected [facility] 2023-11-20 20:29:34 Problem: Procedure Routine Goal: Absence of post-procedure complications Outcome: Progressing as expected Goal: Knowledge of procedure Outcome: Progressing as expected Problem: Infection Risk Goal: Absence of infection Outcome: Progressing as expected Problem: Falls, Risk of Goal: Absence of falls Outcome: Progressing as expected Problem: Activity Intolerance Goal: Improved activity tolerance Outcome: Progressing as expected Thomas Andre RN [facility] 2023-11-20 19:00:19 Nurse Report Report given to LUC Matthews. Chief complaint, assessment findings, and orders reviewed. Plan of care discussed with both nurses. Patient/family members verbalized understanding for admission and transfer. Justina Jordan RN Justina Jordan RN [facility] 2023-11-20 18:49:30 Patient admitted to [facility] for diagnosis of hyperkalemia, obstructive uropathy, NAOMY, anemia, constipation, atrial fibrillation, and abdominal pain. Patient agrees to admission, discussed plan of care with patient and family. Patient is awake, alert, oriented, resp reg unlabored, color appropriate for race, PIV intact with sodium bicarb No adverse reaction to medications administered while in ED Belongings with patient to unit. T [facility] 2023-11-20 18:24:39 Report given to Terrell with [facility]. Requested to recheck BGL en route. T [facility] 2023-11-20 11:09:54 Pt to ED accompanied by daughter CO delusions, confusion, abd pain, and malodorous urine for 2 weeks. Denies fever. Denies dysuria. [facility] 2023-11-20 11:02:00 [facility] Emergency Department Note Patient Name: Zarina Grier Date of : 1950 73 year old female Treatment Room: Room/bed info not found Primary Care Physician: No primary care provider on file. Patient Escorted by: Family [5] Mode of Arrival: Personal means [1] EMS Treatment Prior to ED Arrival: [facility] treatment: None Travel and Exposure Screening: Symptoms [...] TOXIC CHANGES Present (*) COMP. METABOLIC PANEL (27023) - Abnormal NA 131 (*) 135 - [...] CONTRAST Cbc with Diff Comp. Metabolic Panel (23152) Troponin I Lipase Urinalysis Lactic Acid Whole [...] micromoles/L) AdmissionCare documentation entered by: Pablo Chinchilla [facility], 28th edition, Copyright ? 2023 [facility] All Rights Reserved. [id number]:18:34-05:00 ED COURSE Diagnosis/Impression as of 11/20/23 1701 Abdominal pain, unspecified abdominal location Hyperkalemia Obstructive uropathy NAOMY (acute kidney injury) Constipation, unspecified constipation type Anemia, unspecified type Atrial fibrillation with controlled ventricular rate Procedures: Procedures MDM: Medical Decision Making DDx incl UTI, sepsis, SBO, Colitis, appy, incarcerated hernia, PNA, ACS, dysrhythmia, et al Pt to be transferred d/t no beds at [facility] D/w pt and family to inform of going to [facility] and/or Complexity of Data Reviewed Labs: ordered. Radiology: ordered. Discussion of management or test interpretation with external provider(s): D/w [facility] Admitting --> pt accepted for transfer Risk OTC drugs. Prescription drug management. Parenteral controlled substances. Flowsheet Documentation: Disposition/Condition: ED Disposition ED Disposition Transfer [facility] to IP/Obs Condition -- Comment -- Discharge Medications: Patient's Medications No medications on file Follow-up: Electronically signed by: Pablo Chinchilla MD 11/20/231700 [facility] EMERGENCY PHYSICIAN STAFF [facility] 2023-11-20 11:02:00 AdmissionCare Guideline: Renal Failure (Acute) [...] micromoles/L) AdmissionCare documentation entered by: Pablo Chinchilla [facility], 28th edition, Copyright ? 2023 [facility] All Rights Reserved. [id number]:18:34-05:00 [facility]
[2024-01-06 12:51] LABS: Absolute Basophils 0.1 K/uL (0-0.5); Absolute Eosinophils 0.2 K/uL (0-0.5); Absolute Lymphocytes (CBC) 4.6 K/uL (0.7-4.9); Absolute Monocytes 0.8 K/uL (0.1-1.3); Absolute Neutrophil 5.2 K/uL (1.8-8.0); Hematocrit 28.1 % (36.0-45.0); Hemoglobin 8.9 g/dL (12.0-15.0); Lymphocytes % 41.8 % (15.3-44.8); MCH 28.4 pg (27.0-35.0); MCHC 31.8 g/dL (32.0-36.0); MCV 89.3 fL (80-100); Monocytes % 7.5 % (3.3-12.3); Neutrophils % 47.7 % (41.7-73.7); Nucleated Red Blood Cells % 0.1 % (0-0); Platelets 316 thou/uL (152-406); RBC Red Blood Cell Count 3.15 M/uL (3.86-4.86); Red Cell Distribution Width 32.5 % (12.1-15.2)
[2024-01-06] MEDS ORDERED: VANCOMYCIN 1 GM/VIAL ONE (12:55)
[2024-01-06] MEDS ORDERED: CEFEPIME 2 GM VIAL ONE (12:55)
[2024-01-06] MEDS ORDERED: DIPHENHYDRAMINE 50 MG/ML VIAL ONE (12:55)
[2024-01-06] MEDS ORDERED: methocarbamoL 500 MG TAB ONE (12:55)
[2024-01-06] MEDS ORDERED: droPERidol 5 MG/2 ML VIAL ONE (12:55)
[2024-01-06] MEDS ORDERED: NA CHLORIDE 0.9% 1,000 ML ONE (12:56)
[2024-01-06] MEDS ORDERED: NA CHLORIDE 0.9% 100 ML ONE (12:56)
[2024-01-06] MEDS ORDERED: NA CHLORIDE 0.9% 250 ML ONE (12:56)
[2024-01-06 13:27] LABS: Anisocytosis 3+; Blood Morphology Comment NOTED (NOT SEEN); Burr Cells 1+; Microcytosis 1+; Ovalocytes 1+; Platelet Estimate ADEQ; White Blood Cell Scan OK (OK)
[2024-01-06 14:12] LABS: Anion Gap 8.7 mEq/L (5.0-15.0); Potassium 3.7 mEq/L (3.5-5.1)
--- NOTE | 2024-01-06 14:15 | EDPHYS ---
Physician Documentation [facility] Name: Gwendolyn Mercado Age: 73 yrs Sex: Female : 1950 Arrival Date: 01/06/2024 Time: 11:43 Bed 20 Private MD: ED Physician Joe Bailon HPI: 01/05 12:12 This 73 yrs old Female presents to ER via EMS with complaints of Skin Problem.ec2 12:12 Patient with history of large abdominal wound arrives today for drainage from the large ec2 abdominal wound. No fevers or chills, no nausea or vomiting, has been experiencing drainage from the area. Is being treated for the wound at [facility]. Recent admission for this.. Historical: - Allergies: 11:56 No Known Allergies; kc6 - PMHx: 11:56 Atrial fibrillation; bowel incontinence; Hypertensive disorder; prolapsed urethra; kc6 - PSHx: 11:56 section; tubal ligation; kc6 - Immunization history:: Adult Immunizations not up to date. - Infectious Disease History:: Denies. - Social history:: Smoking status: Patient denies any tobacco usage or history of. ROS: 12:12 Constitutional: as per hpi ec2 Exam: 12:12 Constitutional: GEN: NAD Head: atraumatic Eyes: EOMI Ears: External ears are ec2 normal. CV: regular rate LUNGS: no respiratory distress ABD: non-distended SKIN: Left abdomen with large wound that is malodorous with drainage and purulent MSK: no evidence of trauma Vital Signs: 11:53 BP 136 / 70; Pulse 88; Resp 18 S; Temp 98.3(O); Pulse Ox 100% on R/A; Weight 180.53 kg kc6 (M); Height 5 ft. 8 in. (R); Pain 8/10; 14:23 BP 127 / 72; Pulse 81; Resp 18; Pulse Ox 98% on R/A; ph 15:09 Weight 181.44 kg (M); ph 15:30 BP 136 / 89; Pulse 76; Resp 18; Pulse Ox 97% on R/A; ph 16:35 BP 142 / 78; Pulse 79; Resp 16; Temp 97.5; Pulse Ox 99% on R/A; ph 11:53 Body Mass Index 60.52 (181.44 kg, 172.72 cm) kc6 11:53 Pain Scale: Adult kc6 MDM: 14:14 Data reviewed: vital signs. ED course: CBC is nonactionable. Metabolic profile with ec2 appropriate electrolytes and renal function. Will transfer patient to [facility] given that this is where she has been receiving her care. . 14:14 Patient medically screened. ec2 15:14 ED course: I discussed case with general surgery as well as the hospitalist over at ec2 [facility] who agreed except the patient for transfer. . 01/05 12:10 Order name: CBC with Diff; Complete Time: 14:13 ec2 01/05 12:10 Order name: BMP; Complete Time: 14:13 ec2 01/05 12:10 Order name: Blood Culture Adult (2) ec2 01/05 12:55 Order name: CBC Smear Scan; Complete Time: 14:13 EDMS 01/05 13:19 Order name: Labs - recollect needed: green top; Complete Time: 13:51 ll1 Administered Medications: 12:55 Drug: Methocarbamol PO 500 mg PO once Route: PO; ph 14:46 Follow up: Response: No adverse reaction ph 14:15 Drug: Cefepime IVPB 2 grams IVPB at 200 ml/hr once over 30 mins; (mix in NS 100 mL) ph Route: IVPB; Rate: 200 ml/hr; Infused Over: 30 mins; Site: right hand; 14:45 Follow up: Response: No adverse reaction; IV Status: Completed infusion; IV Intake: ph 100ml 14:15 Drug: Droperidol IVP 2.5 mg IVP once Route: IVP; Site: right hand; ph 14:45 Follow up: Response: No adverse reaction ph 14:15 Drug: diphenhydrAMINE IVP 25 mg IVP once Route: IVP; Site: right hand; ph 14:46 Follow up: Response: No adverse reaction ph 14:15 Drug: NS 0.9% IV 1000 ml IV at 1000 ml once; to be given as a bolus over 60 minutes ph Route: IV; Rate: 1000 ml; Site: right hand; 16:34 Follow up: Response: No adverse reaction; IV Status: Completed infusion; IV Intake: ph 1000ml 15:08 Drug: vancoMYCIN IVPB 1 grams IVPB once over 2 hrs Route: IVPB; Infused Over: 2 hrs; ph Site: right hand; 16:34 Follow up: Response: No adverse reaction; IV Status: Completed infusion ph 16:33 Drug: morphine IVP or IV 4 mg IVP once over 4 mins Route: IVP; Infused Over: 4 mins; ph Site: right hand; 16:34 Follow up: Response: No adverse reaction; Medication Administered at Departure ph 16:34 Drug: Ondansetron IVP 4 mg IVP once; over 2 minutes Route: IVP; Site: right hand; ph 16:35 Follow up: Response: No adverse reaction; Medication Administered at Departure ph Disposition Summary: 01/06/24 14:14 Transfer Ordered Notes: [facility] Reason: Higher level of care ec2 Condition: Stable ec2 Problem: an ongoing problem ec2 Symptoms: are unchanged ec2 Accepting Physician: transferring doc(01/06/24 16:35) ph Diagnosis - Cellulitis of abdominal wall ec2 Forms: - Medication Reconciliation Form ec2 - SBAR form ec2 Signatures: Dispatcher [employer] Karen Murray RN RN ph Beata Rasmussen RN RN ll1 Liliana Kidd RN RN kc6 Joe Bailon MD MD ec2 Corrections: (The following items were deleted from the chart) 14:37 14:37 Abdomen Pelvis W Con+CT.RAD.BRZ ordered. JESSEVA EDVA 16:35 14:14 transferring doc ec2 ph
--- NOTE | 2024-01-06 14:15 | ER ---
Nurse's Notes [facility] Name: Gwendolyn Mercado Age: 73 yrs Sex: Female : 1950 Arrival Date: 01/06/2024 Time: 11:43 Bed 20 Private MD: Diagnosis: Cellulitis of abdominal wall Presentation: 01/05 11:53 Chief complaint: EMS states: they were toned by daughters for right sided abd pain. pt kc6 reports having a paracentesis in [place] a few days ago. Coronavirus screen: At this time, the client does not indicate any symptoms associated with coronavirus-19. Ebola Screen: No symptoms or risks identified at this time. Initial Sepsis Screen: Does the patient meet any 2 criteria? No. Patient's initial sepsis screen is negative. Does the patient have a suspected source of infection? No. Patient's initial sepsis screen is negative. Risk Assessment: Do you want to hurt yourself or someone else? Patient reports no desire to harm self or others. Onset of symptoms was January 06, 2024. 11:53 Method Of Arrival: EMS: [facility] 11:53 Acuity: [place] 3 kc6 Historical: - Allergies: 11:56 No Known Allergies; kc6 - PMHx: 11:56 Atrial fibrillation; bowel incontinence; Hypertensive disorder; prolapsed urethra; kc6 - PSHx: 11:56 section; tubal ligation; kc6 - Immunization history:: Adult Immunizations not up to date. - Infectious Disease History:: Denies. - Social history:: Smoking status: Patient denies any tobacco usage or history of. Screenin:22 [facility] ED Fall Risk Assessment (Adult) History of falling in the last 3 months, ph including since admission Yes- fall prone (multiple falls) (3 pts) Confusion or Disorientation No (0 pts) Intoxicated or Sedated No (0 pts) Impaired Gait Yes (1 pt) Mobility Assist Device Used Yes (1 pt) Altered Elimination Yes (1 pt) Score/Fall Risk Level 3 or more points = High Risk Oriented to surroundings, Maintained a safe environment, Used ambulatory aids as needed (educated on \T\ assisted with). Abuse screen: Denies threats or abuse. Denies injuries from another. Nutritional screening: No deficits noted. Tuberculosis screening: No symptoms or risk factors identified. Assessment: 12:30 General: Appears in no apparent distress. obese, unkempt, Behavior is fussy. Pain: ph Complains of pain in all over. Neuro: Level of Consciousness is awake, alert, obeys commands, Oriented to person, place, time, situation. Cardiovascular: Capillary refill < 3 seconds in bilateral fingers Patient's skin is warm and dry. Respiratory: Airway is patent Respiratory effort is even, unlabored. GI: Abdomen is obese, Reports lower abdominal pain, upper abdominal pain. Derm: Skin is pink, warm \T\ dry. Wound noted left abdomen. Vital Signs: 11:53 BP 136 / 70; Pulse 88; Resp 18 S; Temp 98.3(O); Pulse Ox 100% on R/A; Weight 180.53 kg kc6 (M); Height 5 ft. 8 in. (R); Pain 8/10; 14:23 BP 127 / 72; Pulse 81; Resp 18; Pulse Ox 98% on R/A; ph 15:09 Weight 181.44 kg (M); ph 15:30 BP 136 / 89; Pulse 76; Resp 18; Pulse Ox 97% on R/A; ph 16:35 BP 142 / 78; Pulse 79; Resp 16; Temp 97.5; Pulse Ox 99% on R/A; ph 11:53 Body Mass Index 60.52 (181.44 kg, 172.72 cm) kc6 11:53 Pain Scale: Adult kc6 ED Course: 11:53 Patient arrived in ED. kc6 11:54 Joe Bailon MD is Attending Physician. ec2 11:56 Triage completed. kc6 11:56 Arm band placed on. kc6 12:12 Karen Cabral, RN is Primary Nurse. ph 12:30 Missed attempt(s): 24 gauge in right hand. Bleeding controlled, band aid applied, ph catheter tip intact. 12:35 Ad Operations Intern notified difficult IV stick, US IV needed. 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 . ll1 12:35 Initial lab(s) drawn, by me, sent to lab. First set of blood cultures drawn. Missed ll1 attempt(s): 22 gauge in left hand. Bleeding controlled, band aid applied, catheter tip intact. 13:05 notified lab to help recollect green top, difficult stick. ll1 13:49 Lab(s) recollected, by me, sent to lab. Inserted saline lock: 22 gauge in right hand, cm10 using aseptic technique. Blood collected. Flushed with 10 mL NS. 14:17 initiated a transfer with Chaitanya from the [facility] transfer center at the request of the patient. 14:23 Patient has correct armband on for positive identification. Bed in low position. Call light in reach. Side rails up X2. Pulse ox on. NIBP on. 14:[address] Riley the hospitalist tar and ammonia pump operator for [facility] with Dr. Bailon for eb patient transfer consultation. 15:08 connected the surgeon tar and ammonia pump operator for [facility] with Dr. Bailno for patient transfer consultation. 15:11 administrative approval given by Lia Bernal/ patient has been accepted to [facility] 11th floor 11A bed 1113/ Dr. Stan Smith has accepted the patient in transfer/ report to be called to [phone]. 16:35 No provider procedures requiring assistance completed. Patient admitted, IV remains in ph place. Administered Medications: 12:55 Drug: Methocarbamol PO 500 mg PO once Route: PO; ph 14:46 Follow up: Response: No adverse reaction ph 14:15 Drug: Cefepime IVPB 2 grams IVPB at 200 ml/hr once over 30 mins; (mix in NS 100 mL) ph Route: IVPB; Rate: 200 ml/hr; Infused Over: 30 mins; Site: right hand; 14:45 Follow up: Response: No adverse reaction; IV Status: Completed infusion; IV Intake: ph 100ml 14:15 Drug: Droperidol IVP 2.5 mg IVP once Route: IVP; Site: right hand; ph 14:45 Follow up: Response: No adverse reaction ph 14:15 Drug: diphenhydrAMINE IVP 25 mg IVP once Route: IVP; Site: right hand; ph 14:46 Follow up: Response: No adverse reaction ph 14:15 Drug: NS 0.9% IV 1000 ml IV at 1000 ml once; to be given as a bolus over 60 minutes ph Route: IV; Rate: 1000 ml; Site: right hand; 16:34 Follow up: Response: No adverse reaction; IV Status: Completed infusion; IV Intake: ph 1000ml 15:08 Drug: vancoMYCIN IVPB 1 grams IVPB once over 2 hrs Route: IVPB; Infused Over: 2 hrs; ph Site: right hand; 16:34 Follow up: Response: No adverse reaction; IV Status: Completed infusion ph 16:33 Drug: morphine IVP or IV 4 mg IVP once over 4 mins Route: IVP; Infused Over: 4 mins; ph Site: right hand; 16:34 Follow up: Response: No adverse reaction; Medication Administered at Departure ph 16:34 Drug: Ondansetron IVP 4 mg IVP once; over 2 minutes Route: IVP; Site: right hand; ph 16:35 Follow up: Response: No adverse reaction; Medication Administered at Departure ph Medication: 14:23 VIS not applicable for this client. ph Intake: 14:45 IV: 100ml; Total: 100ml. ph 16:34 IV: 1000ml; Total: 1100ml. ph Outcome: 14:14 ER care complete, transfer ordered by . ec2 15:50 Transferred by ground EMS to [facility], Transfer form ll1 completed. Note: report called to Valerie Woodson RN at [facility] 11th floor 15:50 Condition: stable 15:50 Instructed on the need for transfer, 16:35 Patient left the ED. ph Signatures: Karen Cabral RN RN ph Stephanie Gamble Lynsay RN RN ll1 Liliana Kidd RN RN kc6 Luh Castillo RN RN cm10 Joe Bailon MD MD ec2 Corrections: (The following items were deleted from the chart) 14:44 14:43 Methocarbamol PO 500 mg PO ph ph 14:44 14:43 NS 0.9% IV 1000 ml IV at 1000 ml in right hand ph ph 14:44 14:43 diphenhydrAMINE IVP 25 mg IVP in right hand ph ph 14:45 14:43 Droperidol IVP 2.5 mg IVP in right hand ph ph 14:45 14:43 Cefepime IVPB 2 grams IVPB at 200 ml/hr in right hand over 30 mins ph ph
[2024-01-06] MEDS ORDERED: ONDANSETRON 4 MG/2 ML VIAL ONE (16:27)
[2024-01-06] MEDS ORDERED: MORPHINE 4 MG/ML SYR ONE (16:28)
[2024-01-06 19:35] VITALS: BP 142/78; TEMP 97.5; O2SAT 99
== END 2024-01-06 16:35 | disposition short-term general hospital (02) ==
LOC: ER 11:43
DX: L03.311 Cellulitis of abdominal wall (principal); I10 Essential (primary) hypertension; I48.91 Unspecified atrial fibrillation
CPT/HCPCS: 87040 ×2; 85025; 80048; 36415; J1200; J0692; J2405; J1790; J7050; J7030

== ENCOUNTER 2024-05-08 15:17 | Inpatient (IN) | payer OTHER ==
--- OUTSIDE RECORDS SUMMARY | 2024-05-08 15:27 | XMS REPORT | Continuity of Care Document ---
Author Name Unknown Address [address] [place] [address] [facility] Address 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 Name Role Phone Khanh Alvarado Primary Care Physician [phone] Service/[place], Surgery C Attending Clinician U jed Andrade RN, Cinthya Anthony Attending Clinician Ivana Saravia MD, Jr Attending Clinician [phone] Toney Elkins MD Attending Clinician [phone] Isrrael Galindo DO Attending Clinician [phone] Gopi Alves MD Attending Clinician [phone] Wilton BROOKS, Kentrell Attending Clinician [phone] Bashir Carvalho MD Attending Clinician [phone] Taylor Segundo MD Attending Clinician [phone] Lopez Russ MD Attending Clinician + [phone] Ivan Rogers MD Attending Clinician Daisy Nelson RN Attending Clinician Unavailable ALEX SMITH Attending Clinician ALEX Norman Attending Clinician Davy Chinchilla MD, Pablo Harris Attending Clinician Kamari BROOKS, Stefanie Naylor Attending Clinician [phone] Alex Smith MD Attending Clinician [phone] Isrrael Galindo DO Admitting Clinician [phone] Jr Saravia MD Admitting Clinician STEFANIE JOHNSON Admitting Clinician Stefanie Gonzales MD Admitting Clinician Payers Payer Name Policy Type Policy Number Effective Date Expirati on Date Source Problems Condition Name Condition Details Condition Category Status Onset Date Resolution Date Last Treatment Date Treating Clinician Comments Source Wound infection after surgery Wound infection after surgery Disease Active 2023-03 012 00:00: 00 [facility] Colon perforatio n Colon perforatio n Disease Active 9 00:00: 00 [facility] Abdominal pain, unspecifie d abdominal location Abdominal pain, unspecifie d abdominal location Disease Active 11-19 00:00: 00 [facility] Allergies, Adverse Reactions, Alerts Allergy Name Allergy Type Status Severity Reaction(s) Onset Date Inactive Date Treating Clinician Comments Source NO KNOWN ALLERGIE S Drug Class Active [facility] Social History Social Habit Start Date Stop Date Quantity Comments Source History of tobacco use Cigarette Smoker [facility] Sexual orientation [facility] History of Social function 2024-01-07 00:00:00 2024-01-07 00:00:00 [facility] Cigarettes smoked current (pack per day) - Reported 2023-11-22 00:00:00 2023-11-22 00:00:00 [facility] Cigarette pack-years 2023-11-22 00:00:00 2023-11-22 00:00:00 [facility] Tobacco use and exposure 2023-11-22 00:00:00 2023-11-22 00:00:00 Smokeless tobacco non-user [facility] Sex assigned at 1950 00:00:00 1950 00:00:00 [facility] Smoking Status Start Date Stop Date Source Ex-smoker 2023-11-22 00:00:00 2023-11-22 00:00:00 [facility] Medications Ordered Medication Name Filled Medication Name Start Date Stop Date Current Medication? Ordering Clinician Indication Dosage Frequency Signature (SIG) Comments Components Source acetaminoph en 325 mg tablet 2023-03 00:00: 00 01-14 04:59 :00 No [id number] 650mg Take 2 tablets by mouth every 8 (eight) hours as needed for Pain (scale 1-3). [facility] HYDROcodone -acetaminop hen 5-325 mg tablet 2023-03 00:00: 00 01-28 05:59 :00 No [id number] 1{tbl} Take 1 tablet by mouth every 6 (six) hours as needed for Pain (scale 7-10) for up to 14 days. Indication s: acute pain, chronic pain [facility] HYDROcodone -acetaminop hen (NORCO 5) tablet 1 tablet 2023-03 21:42: 53 01-13 18:45 :35 No 1{tbl} 1 tablet, Oral, Q4HPRN, Starting on Mon01/12/24 at 1642, Until 01/14/24 at 1345, Routine, Pain (scale 4-6) [facility] acetaminoph en (TYLENOL) tablet 650 mg 2023-03 21:42: 37 Yes 650mg 650 mg, Oral, Q8HPRN, Starting on Mon01/12/24 at 1642, Until Discontinu ed, Routine, Pain (scale 1-3) [facility] HYDROcodone -acetaminop hen (NORCO) 10-325 mg tablet 1 tablet 2023-03 17:00: 00 01-10 18:34 :00 No 1{tbl} 1 tablet, Oral, ONCE, 1 dose, On [place] 01/11/24 at 1200, Routine [facility] sodium hypochlorit e 0.25% (DAKIN'S SOLUTION) solution 2023-03 13:00: 00 01-13 18:45 :35 No Topical, BID, First dose (after last modificati on) on Mon01/10/24 at 0800, Until Discontinu ed, Routine [facility] metoprolol tartrate (LOPRESSOR) tablet 25 mg 2024-1 0-16 13:00: 00 01-13 18:45 :35 No 25mg 25 mg, Oral, BID, First dose (after last modificati on) on Mon01/10/24 at 0800, Until Discontinu ed, [facility]ine [facility] tamsulosin (FLOMAX) capsule 0.4 mg 2023-03 016 04:00: 00 01-13 18:45 :35 No .4mg 0.4 mg, Oral, DAILY, First dose on Mon01/09/24 at 2300, Until Discontinu ed, Routine [facility] simethicone (GAS RELIEF (SIMETHICON E)) chewable tablet 80 mg 2023-03 0-14 02:00: 00 01-13 18:45 :35 No 80mg 80 mg, Oral, PC+HS, First dose on Mon01/07/24 at 2100, Until Discontinu ed, Routine [facility] NaCl 0.9% (NS) injection 10 mL 2023-03 21:13: 50 01-13 18:45 :35 No 10mL 10 mL, Slow IV Push, PRN, Starting on Mon01/07/24 at 1613, Until 01/14/24 at 1345, Routine, line maintenanc e [facility] lidocaine 1% (PF) (XYLOCAINE) injection 5 mL 2023-03 21:13: 50 01-13 18:45 :35 No 5mL 5 mL, Subcutaneo us, PRN, 1 dose, Starting on Mon01/07/24 at 1613, Until Mon01/14/24 at 1345, Routine, Local anesthesia [facility] gabapentin (NEURONTIN) capsule 100 mg 2023-03 14:00: 00 01-13 18:45 :35 No 100mg 100 mg, Oral, DAILY, First dose on Mon01/07/24 at 0900, Until Discontinu ed, Routine [facility] docusate (COLACE) capsule 100 mg 2023-0313 14:00: 00 01-13 18:45 :35 No 100mg 100 mg, Oral, DAILY, First dose on Mon01/07/24 at 0900, Until Discontinu ed, Routine [facility] pantoprazol e (PROTONIX) EC tablet 40 mg 2023-03 14:00: 00 01-13 18:45 :35 No 40mg 40 mg, Oral, DAILY, First dose on 01/07/24 at 0900, Until Discontinu ed, Routine, Indication for use: None of the above [facility] sodium hypochlorit e 0.25% (DAKIN'S SOLUTION) solution 2023-03 14:00: 00 01-09 02:11 :25 No Topical, QAM, First dose on 01/07/24 at 0900, Until Discontinu ed, Routine [facility] sodium chloride (OCEAN MIST NASAL) 0.65 % nasal spray 1 Reynolds 2023-03 13:45: 07 01-13 18:45 :35 No 1{spray } 1 Reynolds, Nasal, QIDPRN, Starting on 01/07/24 at 0845, Until 01/14/24 at 1345, Routine, Nasal drying [facility] diphenhydrA MINE (BENADRYL) tablet 25 mg 2023-03 13:43: 25 01-13 18:45 :35 No 25mg 25 mg, Oral, Q4HPRN, Starting on 01/07/24 at 0843, Until 01/14/24 at 1345, Routine, Itching, Mild Rash, Congestion /Allergies [facility] apixaban (ELIQUIS) tablet 5 mg 2023-03 13:00: 00 01-13 18:45 :35 No 5mg 5 mg, Oral, BID, First dose on Mon01/07/24 at 0800, Until Discontinu ed, Routine, Indication s: Non-Valvul ar Atrial Fibrillati on [facility] magnesium sulfate in water 4 gram/50 mL (8 %) IV Piggyback 4 g 2023-03 08:45: 00 01-06 10:18 :00 No 4g 4 g, IV Piggyback, at 25 mL/hr Administer over 120 Minutes, ONCE, 1 dose, On 01/07/24 at 0345, Routine [facility] piperacilli n-tazobacta m (ZOSYN) 3.375 g in NaCl 0.9% (NS) 100 mL MINI-BAG 2023-03 08:30: 00 01-08 18:05 :10 No 3.375g 3.375 g, IV Piggyback, Q8H ABX, 21 doses, First dose on 01/07/24 at 0330, Last dose on 01/13/24 at 1930, Administer over 4 Hours, 100 mL, Reason for Anti-Infec tive: Documented Infection, Documented Infection Site: Skin / Soft Tissue, Duration of Therapy: 7 days [facility] sucralfate (CARAFATE) tablet 1 g 2023-03 02:00: 00 01-13 18:45 :35 No 1g 1 g, Oral, AC+HS, First dose on 01/06/24 at 2100, Until Discontinu ed, Routine [facility] QUEtiapine (SEROQUEL) tablet 25 mg 2023-03 02:00: 00 01-13 18:45 :35 No 25mg 25 mg, Oral, QHS, First dose on [facility] 01/06/24 at 2100, Until Discontinu ed, Routine [facility] metoprolol tartrate (LOPRESSOR) tablet 25 mg 2023-03 01:00: 00 01-09 02:11 :25 No 25mg 25 mg, Oral, BID, First dose on 01/06/24 at 2000, Until Discontinu ed, Routine [facility] methocarbam oL (ROBAXIN) tablet 1,000 mg 2023-03 00:02: 10 01-13 18:45 :35 No 1000mg 1,000 mg, Oral, TIDPRN, Starting on 01/06/24 at 1902, Until [place] 01/14/24 at 1345, Muscle Spasms [facility] ondansetron (ZOFRAN (PF)) injection 4 mg 2023-03 23:55: 25 2024- 10-20 18:45 :35 No 4mg 4 mg, Slow IV Push, Q6HPRN, Starting on 01/06/24 at 1855, Until 01/14/24 at 1345, Routine, Nausea and Vomiting (N/V) [facility] morphine (2 mg/mL) injection 2 mg 2023-03 012 23:55: 22 01-13 18:45 :35 No 2mg 2 mg, Slow IV Push, Q4HPRN, Starting on 01/06/24 at 1855, Until 01/14/24 at 1345, Routine, Pain (scale 7-10), Pain unrelieved by scheduled analgesics [facility] HYDROcodone -acetaminop hen (NORCO 5) tablet 1 tablet 2023-03 23:55: 17 01-11 21:44 :07 No 1{tbl} 1 tablet, Oral, Q6HPRN, Starting on 01/06/24 at 1855, Until 01/12/24 at 1644, Routine, Pain (scale 4-6) [facility] apixaban 5 mg tablet 2023-03 0 00:00: 00 03-02 05:59 :00 No 5mg Take 1 tablet by mouth in the morning and 1 tablet in the evening. Do all this for 60 days. Indication s: non valvular a fib [facility] docusate 100 mg capsule 2023-03 0 00:00: 00 01-29 05:59 :00 No [id number] 100mg Take 1 capsule by mouth in the morning for 30 days. [facility] traMADoL 50 mg tablet 2023-03 0 00:00: 00 Yes [id number] 50mg Take 1 tablet by mouth every 6 (six) hours as needed for Pain (scale 7-10) for up to 15 doses. Indication s: acute pain [facility] metoprolol tartrate 25 mg tablet 2023-03 0- 00:00: 00 02-27 05:59 :00 No [id number] 25mg Take 1 tablet by mouth in the morning and 1 tablet in the evening. Do all this for 60 days. [facility] methocarbam oL 1,000 mg Tab 2023-03 0-04 00:00: 00 01-28 05:59 :00 No [id number] 1000mg Take 1,000 mg by mouth 3 (three) times daily as needed for Pain (scale 1-3) for up to 30 days. [facility] QUEtiapine 25 mg tablet 2023-03 0-04 00:00: 00 01-28 05:59 :00 No [id number] 25mg Take 1 tablet by mouth at bedtime for 30 days. [facility] sodium hypochlorit e 0.25% solution 2023-03 0- 00:00: 00 01-28 05:59 :00 No [id number] Apply to area(s) every morning for 30 days. [facility] sucralfate 1 gram tablet 2023-03 0 00:00: 00 01-28 05:59 :00 No [id number] 1g Take 1 tablet by mouth before meals and at bedtime for 30 days. [facility] sodium chloride 0.65 % nasal spray 2023-03 004 00:00: 00 01-28 05:59 :00 No [id number] 1{spray } Use 1 Reynolds in each nostril in the morning and 1 Reynolds in the evening. Do all this for 30 days. [facility] acetaminoph en 500 mg tablet 2023-03 0-04 00:00: 00 01-13 00:00 :00 No [id number] 1000mg Take 2 tablets by mouth every 8 (eight) hours. [facility] apixaban 5 mg tablet 2023-03 0-04 00:00: 00 12-31 04:59 :00 No 10mg Take 2 tablets by mouth in the morning and 2 tablets in the evening. Do all this for 2 days. Indication s: non valvular a fib [facility] polyethylen e glycol 3350 powder 17 g 2023-03 0-03 14:00: 00 Yes 17g 17 g, Oral, DAILY, First dose (after last modificati on) on [place] 12/28/23 at 0900, Until Discontinu ed, Routine [facility] docusate (COLACE) capsule 100 mg 2023-03 14:00: 00 Yes 100mg 100 mg, Oral, DAILY, First dose on Mon12/26/23 at 0900, Until Discontinu ed, Routine [facility] apixaban (ELIQUIS) tablet 10 mg 12-24 01:00: 00 12-31 00:59 :00 No 10mg [Order 1 Start] Name: apixaban (ELIQUIS) tablet 10 mg Signed Summary: 10 mg, Oral, BID, 14 doses, First dose on Mon12/24/23 at 1999, Last dose on Mon12/31/23 at 0800, Routine, Indication s: Non-Valvul ar Atrial Fibrillati on [Order 1 End] [Order 2 Start] Name: apixaban (ELIQUIS) tablet 5 mg Signed Summary: 5 mg, Oral, BID, First dose on Mon12/31/23 at 1999, Until Discontinu ed, Routine, Indication s: Non-Valvul ar Atrial Fibrillati on [Order 2 End] [facility] sodium chloride (OCEAN MIST NASAL) 0.65 % nasal spray 1 Reynolds 12-22 01:00: 00 01-05 00:59 :00 No 1{spray } 1 Reynolds, Nasal, BID, 28 doses, First dose (after last reorder) on Mon12/22/23 at 1999, Last dose on Mon01/05/24 at 0800, Routine [facility] fluticasone propionate 50 mcg/actuati on nasal spray 1 Reynolds 12-22 01:00: 00 01-05 00:59 :00 No 1{spray } 1 Reynolds, Nasal, BID, 28 doses, First dose (after last reorder) on Mon12/22/23 at 1999, Last dose on Mon01/05/24 at 0800, Routine [facility] sodium hypochlorit e 0.5% (DAKINS) solution 20 mL 12-21 21:00: 00 12-25 13:26 :37 No 20mL 20 mL, Topical, QID, First dose on Mon12/22/23 at 1600, Until Discontinu ed, Routine [facility] iopamidol (ISOVUE 370-500 mL) injection 120 mL 12-21 18:45: 00 12-21 18:45 :00 No [id number] 120mL 120 mL, Intravenou s, ONCE, 1 dose, On Mon12/22/23 at 1345, Routine [facility] chloride in water (KCL) 20 mEq/100 mL IV infusion 20 mEq 12-19 21:00: 00 12-20 03:00 :00 No 20meq 20 mEq, IV Piggyback, at 50 mL/hr Administer over 2 Hours, Q2H, 2 doses, First dose on Mon12/20/23 at 1600, Last dose on Mon12/20/23 at 1800, Routine [facility] guaiFENesin 100 mg/5 mL solution 100 mg 12-19 05:07: 11 Yes 100mg 100 mg, Oral, Q8HPRN, Starting on Mon12/20/23 at 0007, Until Discontinu ed, Routine, Cough [facility] magnesium sulfate in water 2 gram/50 mL (4 %) infusion 2 g 12-17 13:15: 00 12-17 16:13 :00 No 2g 2 g, IV Piggyback, Administer over 60 Minutes, ONCE, 1 dose, On Mon12/18/23 at 0815, Routine [facility] piperacilli n-tazobacta m (ZOSYN) 3.375 g in NaCl 0.9% (NS) 100 mL MINI-BAG 12-16 16:46: 00 12-23 12:55 :32 No 3.375g 3.375 g, IV Piggyback, Q8H ABX, 60 doses, First dose (after last modificati on) on Mon12/17/23 at 1200, Last dose on 01/06/24 at 0400, Administer over 4 Hours, 100 mL, Reason for Anti-Infec tive: Documented Infection, Documented Infection Site: Abdominal, Duration of Therapy: 7 days [facility] magnesium oxide (MAG-OX 400) 40 mg/mL oral suspension 400 mg 12-16 14:00: 00 12-23 16:21 :07 No 400mg 400 mg, Oral, DAILY, First dose on Mon12/17/23 at 0900, Until Discontinu ed, Routine [facility] enoxaparin (LOVENOX) injection 120 mg 12-16 01:00: 00 12-23 16:09 :20 No .7mg/kg 120 mg (rounded from 119.07 mg = 0.7 mg/kg ?170.1 kg), Subcutaneo us, Q12H, First dose on Mon12/16/23 at 2000, Until Discontinu ed, Routine [facility] NaCl 0.9% (NS) injection 10 mL 12-15 18:05: 16 Yes 10mL 10 mL, Slow IV Push, PRN, Starting on Mon12/16/23 at 1305, Until Discontinu ed, Routine, line maintenanc e [facility] lidocaine 1% (PF) (XYLOCAINE) injection 5 mL 12-15 18:05: 15 Yes 5mL 5 mL, Subcutaneo us, PRN, 1 dose, Starting on 12/16/23 at 1305, Until Discontinu ed, Routine, Local anesthesia [facility] haloperidol lactate (HALDOL) injection 5 mg 12-14 22:54: 22 Yes 5mg 5 mg, Slow IV Push, Q6HPRN, Starting on Mon12/15/23 at 1754, Until Discontinu ed, Routine, prior to dressing changes [facility] magnesium sulfate in water 2 gram/50 mL (4 %) infusion 2 g 12-14 13:15: 00 12-14 20:45 :00 No 2g 2 g, IV Piggyback, Administer over 60 Minutes, ONCE, 1 dose, On Mon12/15/23 at 0815, Routine [facility] potassium chloride in water (KCL) 20 mEq/100 mL RTU IVPB 20 mEq 12-14 03:45: 00 12-14 07:44 :00 No 20meq 20 mEq, IV Piggyback, at 50 mL/hr Administer over 2 Hours, Q2H ES, 2 doses, First dose on [place] 9/19/24 at 2245, Last dose on Mon12/15/23 at 0045, DIMAS [facility] loratadine (CLARITIN) tablet 10 mg 12-14 03:00: 00 12-21 18:25 :22 No 10mg 10 mg, Oral, DAILY, First dose on Mon12/14/23 at 2200, Until Discontinu ed, Routine [facility] metoprolol tartrate (LOPRESSOR) tablet 25 mg 12-13 01:00: 00 Yes 25mg 25 mg, Oral, BID, First dose (after last reorder) on Mon12/13/23 at 2000, Until Discontinu ed, Routine [facility] potassium chloride in water (KCL) 20 mEq/100 mL RTU IVPB 20 mEq 12-12 20:00: 00 12-13 00:42 :00 No 20meq 20 mEq, IV Piggyback, at 50 mL/hr Administer over 2 Hours, Q2H ES, 2 doses, First dose on Mon12/13/23 at 1500, Last dose on Mon12/13/23 at 1700, Routine [facility] haloperidol lactate (HALDOL) injection 5 mg 12-12 14:08: 54 12-14 22:54 :50 No 5mg 5 mg, Slow IV Push, Q6HPRN, Starting on Mon12/13/23 at 0908, Until Mon12/15/23 at 1754, Routine, Hyperactiv e agitation, pulling out IV lines [facility] potassium chloride in water (KCL) 20 mEq/100 mL RTU IVPB 20 mEq 12-12 12:47: 00 12-12 17:06 :01 No 20meq 20 mEq, IV Piggyback, at 50 mL/hr Administer over 2 Hours, Q2H ES, 2 doses, First dose on Mon12/13/23 at 0800, Last dose on Mon12/13/23 at 1000, DIMAS [facility] phytonadion e (VITAMIN K) 5 mg in NaCl 0.9% (NS) piggyback 12-12 09:00: 00 12-12 09:39 :00 No 5mg IV Piggyback, ONCE, 1 dose, On Mon12/13/23 at 0400, 50 mL [facility] QUEtiapine (SEROQUEL) tablet 25 mg 12-12 02:00: 00 Yes 25mg 25 mg, Oral, QHS, First dose on Mon12/12/23 at 2100, Until Discontinu ed, Routine [facility] furosemide (LASIX) injection 20 mg 12-12 01:00: 00 12-15 02:55 :14 No 20mg 20 mg, Slow IV Push, Q12H, First dose (after last modificati on) on Mon12/12/23 at 2000, Until Discontinu ed, DIMAS [facility] HEPARIN SODIUM (PORCINE) 1,000 UNIT/ML BOLUS ACS ORDER SET 12-10 16:15: 00 12-10 22:00 :00 No 4000U 4,000 Units, IV Push, ONCE, 1 dose, On Mon12/11/23 at 1115, DIMAS [facility] heparin 25,000 Units/250 mL (Premixed [...] ADJUST INITIAL BOLUS OR INITIAL INFUSION RATE. [facility] heparin (1,000 unit/mL, 10 mL vial) for Rebolusing 12-10 16:10: 55 12-15 21:32 :38 No 3000U FOR REBOLUSING , Starting on Mon12/11/23 at 1110, Until Mon12/16/23 at 1632, Routine, Dosing based on aPPT testing parameters (refer to continuous heparin drip order). [facility] methocarbam oL (ROBAXIN) tablet 1,000 mg 12-10 14:52: 46 Yes 1000mg 1,000 mg, Oral, TIDPRN, Starting on Mon12/11/23 at 0952, Until Discontinu ed, Routine, Muscle Spasms [facility] metoprolol tartrate (LOPRESSOR) tablet 25 mg 12-10 14:45: 00 12-12 18:48 :53 No 25mg 25 mg, Oral, BID, First dose on Mon12/11/23 at 0945, Until Discontinu ed, Routine [facility] magnesium sulfate in water 2 gram/50 mL (4 %) infusion 2 g 12-10 12:00: 00 12-10 14:42 :00 No 2g 2 g, IV Piggyback, Administer over 60 Minutes, ONCE, 1 dose, On Mon12/11/23 at 0700, Routine [facility] potassium phosphate 30 mmol in NaCl 0.9% (NS) 250 mL piggyback 12-10 11:12: 00 12-10 17:20 :00 No 30mmol 30 mmol, IV Piggyback, ONCE, 1 dose, On Mon12/11/23 at 0615, 250 mL [facility] potassium chloride in water (KCL) 20 mEq/100 mL RTU IVPB 20 mEq 12-10 11:00: 00 12-10 15:42 :00 No 20meq 20 mEq, IV Piggyback, at 50 mL/hr Administer over 2 Hours, Q2H, 2 doses, First dose on Mon12/11/23 at 0600, Last dose on Mon12/11/23 at 0800, Routine [facility] furosemide (LASIX) injection 40 mg 12-09 14:15: 00 12-11 17:01 :40 No 40mg 40 mg, Slow IV Push, Q12H, First dose on Mon12/10/23 at 0915, Until Discontinu ed, DIMAS [facility] potassium chloride in water (KCL) 20 mEq/100 mL RTU IVPB 20 mEq 12-09 12:00: 00 12-09 13:50 :42 No 20meq 20 mEq, IV Piggyback, at 50 mL/hr Administer over 2 Hours, ONCE, 1 dose, On [place] 12/10/23 at 0700, Routine [facility] KCL (KLOR-CON M20) tablet 40 mEq 12-09 01:00: 00 12-19 19:14 :39 No 40meq 40 mEq, Oral, BID, First dose (after last modificati on) on 12/09/23 at 2000, Until Discontinu ed, DIMAS [facility] QUEtiapine (SEROQUEL) tablet 50 mg 12-09 01:00: 00 12-10 16:56 :22 No 50mg 50 mg, Oral, BID, First dose on 12/09/23 at 1999, Until Discontinu ed, Routine [facility] KCL (KLOR-CON M20) tablet 40 mEq 12-08 17:45: 00 12-08 17:09 :00 No 40meq 40 mEq, Oral, ONCE, 1 dose, On [facility] 12/09/23 at 1245, DIMAS [facility] sucralfate (CARAFATE) tablet 1 g 12-08 16:30: 00 Yes 1g 1 g, Oral, AC+HS, First dose on Mon12/09/23 at 1130, Until Discontinu ed, Routine [facility] fluticasone propionate 50 mcg/actuati on nasal spray 1 Reynolds 12-08 01:00: 00 12-22 00:59 :00 No 1{spray } 1 Reynolds, Nasal, BID, 28 doses, First dose on Mon12/08/23 at 1999, Last dose on Mon12/22/23 at 0800, Routine [facility] sodium chloride (OCEAN MIST NASAL) 0.65 % nasal spray 1 Reynolds 12-08 01:00: 00 12-22 00:59 :00 No 1{spray } 1 Reynolds, Nasal, BID, 28 doses, First dose on Mon12/08/23 at 1999, Last dose on Mon12/22/23 at 0800, Routine [facility] oxymetazoli ne (OXYMETAZOL INE HCL) 0.05 % nasal spray 1 Reynolds 12-08 01:00: 00 12-11 00:59 :00 No 1{spray } 1 Reynolds, Nasal, BID, 6 doses, First dose on Mon12/08/23 at 1999, Last dose on Mon12/11/23 at 0800, Routine [facility] acetaminoph en (TYLENOL) tablet 1,000 mg 12-07 19:00: 00 Yes 1000mg 1,000 mg, Oral, Q8H, First dose on Mon12/08/23 at 1400, Until Discontinu ed, Routine [facility] methocarbam oL (ROBAXIN) tablet 1,000 mg 12-07 19:00: 00 12-10 14:31 :59 No 1000mg 1,000 mg, Oral, TID, First dose on Mon12/08/23 at 1400, Until Discontinu ed, Routine [facility] Potassium Bicarb-Citr ic Acid (EFFER-K) effervescen t tablet 40 mEq 12-07 17:00: 00 12-08 13:39 :42 No 40meq 40 mEq, Oral, BID, 6 doses, First dose on Mon12/08/23 at 1200, Last dose on Mon12/10/23 at 2000, Routine [facility] bismuth subsalicyla te (PEPTO BISMOL) chewable tablet 524 mg 12-07 16:28: 37 12-10 14:39 :38 No 524mg 524 mg, Oral, Q6HPRN, Starting on Mon12/08/23 at 1128, Until Mon12/11/23 at 0939, Routine, Indigestio n [facility] iopamidol (ISOVUE 370-500 mL) injection 80 mL 12-07 16:15: 00 12-07 16:10 :00 No [id number] 80mL 80 mL, Intravenou s, ONCE, 1 dose, On Mon12/08/23 at 1115, Routine [facility] pantoprazol e (PROTONIX) EC tablet 40 mg 12-07 15:45: 00 Yes 40mg 40 mg, Oral, DAILY, First dose on Mon12/08/23 at 1045, Until Discontinu ed, Routine [facility] furosemide (LASIX) injection 40 mg 12-07 12:54: 00 12-07 13:11 :00 No 40mg 40 mg, Slow IV Push, ONCE, 1 dose, On Mon12/08/23 at 0800, DIMAS [facility] potassium chloride in water (KCL) 20 mEq/100 mL RTU IVPB 20 mEq 12-07 11:00: 00 12-07 15:13 :41 No 20meq 20 mEq, IV Piggyback, at 50 mL/hr Administer over 2 Hours, Q2H, 2 doses, First dose on Mon12/08/23 at 0600, Last dose on Mon12/08/23 at 0800, Routine [facility] acetaminoph en (OFIRMEV) IV piggyback 1,000 mg 12-07 09:30: 00 12-07 08:58 :00 No 1000mg 1,000 mg, IV Piggyback, at 400 mL/hr Administer over 15 Minutes, ONCE, 1 dose, On Mon12/08/23 at 0430, Routine, Is the patient strict NPO and unable to tolerate oral medication s? Yes [facility] piperacilli n-tazobacta m (ZOSYN) 3.375 [...] Site: Abdominal, Duration of Therapy: 7 days [facility] methocarbam oL (ROBAXIN) injection 1,000 mg 12-07 03:00: 00 12-07 13:43 :18 No 1000mg 1,000 mg, Slow IV Push, Q8H, First dose (after last reorder) on Mon12/07/23 at 2200, Until Discontinu ed, Administer over 3-5 Minutes [facility] Lidocaine (LIDOCARE) 4 % patch 1 Patch 12-07 01:30: 00 Yes 1{patch } 1 Patch, Topical, Administer over 12 Hours, DAILY, First dose on Mon12/07/23 at 2030, Until Discontinu ed, Routine [facility] acetaminoph en (OFIRMEV) IV piggyback 1,000 mg 12-07 01:30: 00 12-07 02:40 :00 No 1000mg 1,000 mg, IV Piggyback, at 400 mL/hr Administer over 15 Minutes, ONCE, 1 dose, On Mon12/07/23 at 2030, Routine, Is the patient strict NPO and unable to tolerate oral medication s? Yes [facility] HYDROmorpho ne (DILAUDID) injection 0.5 mg 12-07 01:27: 03 12-09 01:26 :03 No .5mg 0.5 mg, Intravenou s, Q4HPRN, Starting on Christie 12/07/23 at 2026, Until 12/09/23 at 2025, Routine, Pain (scale 7-10), Is this medication approved by a Faculty level provider? Yes, aboriginal community council member approving Restricted medication : TONEY ELKINS [facility] traMADoL (ULTRAM) tablet 50 mg 12-07 01:26: 16 Yes 50mg 50 mg, Oral, Q6HPRN, Starting on Christie 12/07/23 at 2025, Until Discontinu ed, Routine, Pain (scale 7-10) [facility] acetaminoph en ([facility]) IV piggyback 1,000 mg 12-06 21:45: 00 12-06 22:44 :00 No 1000mg 1,000 mg, IV Piggyback, at 400 mL/hr Administer over 15 Minutes, ONCE, 1 dose, On Christie 12/07/23 at 1645, Routine, Is the patient strict NPO and unable to tolerate oral medication s? Yes [facility] methocarbam oL (ROBAXIN) injection 1,000 mg 12-06 19:00: 00 12-06 19:03 :00 No 1000mg 1,000 mg, Slow IV Push, Q8H, 1 dose, First dose (after last modificati on) on Christie 12/07/23 at 1400, Administer over 3-5 Minutes [facility] potassium chloride 40 mEq in 100 mL IVPB 12-06 14:00: 00 12-06 18:10 :00 No 40meq 40 mEq, Intravenou s, ONCE, 1 dose, On Mon12/07/23 at 0900, 100 mL [facility] acetaminoph en ([facility]) IV piggyback 1,000 mg 12-06 13:45: 00 12-06 13:41 :00 No 1000mg 1,000 mg, IV Piggyback, at 400 mL/hr Administer over 15 Minutes, ONCE, 1 dose, On Mon12/07/23 at 0845, Routine, Is the patient strict NPO and unable to tolerate oral medication s? Yes [facility] ity [facility] acetaminoph en ([facility]) IV piggyback 1,000 mg 12-06 05:45: 00 12-06 06:07 :00 No 1000mg 1,000 mg, IV Piggyback, at 400 mL/hr Administer over 15 Minutes, ONCE, 1 dose, On Christie 12/07/23 at 0045, Routine, Is the patient strict NPO and unable to tolerate oral medication s? Yes [facility] 1,000 unit/mL injection 1,000 Units 12-06 05:45: 00 12-06 05:17 :00 No 1000U ONCE, 1 dose, On Christie 12/07/23 at 0045, Routine, For Priming of Ports: After initial saline flush, prime each port with heparin according to the priming volume listed on each catheter port for catheter lock. [facility] acetaminoph en ([facility]) IV piggyback 1,000 mg 12-06 02:30: 00 12-06 01:02 :00 No 1000mg 1,000 mg, IV Piggyback, at 400 mL/hr Administer over 15 Minutes, ONCE, 1 dose, On Mon12/06/23 at 2130, Routine, Is the patient strict NPO and unable to tolerate oral medication s? Yes [facility] acetaminoph en ([facility]) IV piggyback 1,000 mg 12-05 18:30: 00 12-05 17:59 :00 No 1000mg 1,000 mg, IV Piggyback, at 400 mL/hr Administer over 15 Minutes, ONCE, 1 dose, On Mon12/06/23 at 1330, Routine, Is the patient strict NPO and unable to tolerate oral medication s? Yes [facility] it[facility] dexMEDEtomi dine 200 mcg in [...] at maximum allowed dose, contact prescriber . [facility] it[facility] glycerin/mi neral oil (AGLO ENEMA) (COMPOUNDED ) Enem 225 mL 12-05 14:45: 00 12-05 19:59 :00 No 225mL 225 mL, Rectal, ONCE, 1 dose, On Mon12/06/23 at 0945, Routine [facility] mineral oil (MINERAL OIL EXTRA HEAVY) oral liquid 30 mL 12-05 14:00: 00 Yes 30mL 30 mL, Oral, DAILY, First dose on Mon12/06/23 at 0900, Until Discontinu ed, Routine [facility] sodium hypochlorit e 0.25% (DAKIN'S SOLUTION) solution 12-05 14:00: 00 Yes Topical, QAM, First dose on Mon12/06/23 at 0900, Until Discontinu ed, Routine [facility] polyethylen e glycol 3350 powder 17 g 12-05 14:00: 00 12-25 13:28 :38 No 17g 17 g, Oral, DAILY, First dose on Mon12/06/23 at 0900, Until Discontinu ed, Routine [facility] lactated ringers IV infusion 1,000 mL 12-05 14:00: 00 12-12 21:44 :11 No 1000mL at 42 mL/hr, 1,000 mL, IV Infusion, CONTINUOUS , Starting on Mon12/06/23 at 0900, Until Mon12/13/23 at 1644, Routine [facility] furosemide (LASIX) injection 80 mg 12-05 12:00: 00 12-05 11:30 :00 No 80mg 80 mg, Slow IV Push, ONCE, 1 dose, On Mon12/06/23 at 0700, Routine [facility] IV piggyback 1,000 mg 12-05 10:30: 00 12-05 10:51 :00 No 1000mg 1,000 mg, IV Piggyback, at 400 mL/hr Administer over 15 Minutes, ONCE, 1 dose, On Mon12/06/23 at 0530, Routine, Is the patient strict NPO and unable to tolerate oral medication s? Yes [facility] chlorhexidi ne (PERIDEX) 0.12 % mouthwash 15 mL 12-05 01:00: 00 Yes 15mL 15 mL, Oral (Swish And Spit Out), BID, First dose on Mon12/05/23 at 2000, Until Discontinu ed, Routine [facility] lactated ringers IV infusion 1,000 mL 12-04 16:45: 00 12-05 13:55 :24 No 1000mL at 100 mL/hr, 1,000 mL, IV Infusion, CONTINUOUS , Starting on Mon12/05/23 at 1145, Until Mon12/06/23 at 0855, Routine [facility] ([facility] IV piggyback 1,000 mg 12-04 15:45: 00 12-04 15:26 :00 No 1000mg 1,000 mg, IV Piggyback, at 400 mL/hr Administer over 15 Minutes, ONCE, 1 dose, On Mon12/05/23 at 1045, Routine, Is the patient strict NPO and unable to tolerate oral medication s? Yes [facility] heparin (porcine) injection 5,000 Units 12-04 13:00: 00 12-10 16:12 :08 No 5000U 5,000 Units, Subcutaneo us, Q8H, First dose on Mon12/05/23 at 0800, Until Discontinu ed, Routine [facility] NORepinephr ine (LEVOPHED) 4 mg/250 mL in [...] intravenou s vasopresso r at a time. [facility] albumin (ALBUMINAR 25%) 25 % [...] and optimal diuretic therapy alone has failed, aboriginal community council member approving Restricted medication : TAYLOR SEGUNDO [facility] acetaminoph en (OFIRMEV) IV piggyback 1,000 mg 12-04 07:45: 00 12-04 08:46 :00 No 1000mg 1,000 mg, IV Piggyback, at 400 mL/hr Administer over 15 Minutes, ONCE, 1 dose, On Mon12/05/23 at 0245, Routine, Is the patient strict NPO and unable to tolerate oral medication s? Yes [facility] methocarbam oL (ROBAXIN) injection 1,000 mg 12-04 03:00: 00 12-06 15:31 :36 No 1000mg 1,000 mg, Slow IV Push, Q8H, First dose on Mon12/04/23 at 2200, Until Discontinu ed, Administer over 3-5 Minutes [facility] FENTanyl (PF) (SUBLIMAZE) injection 50 mcg 12-04 01:30: 00 12-04 00:30 :00 No 50ug 50 mcg, Slow IV Push, ONCE, 1 dose, On Mon12/04/23 at 2030, Routine [facility] albumin (ALBUMINAR 25%) 25 % [...] and optimal diuretic therapy alone has failed, aboriginal community council member approving Restricted medication : TONEY ELKINS [facility] acetaminoph en (OFIRMEV) IV piggyback 1,000 mg 12-03 23:45: 00 12-04 01:44 :04 No 1000mg 1,000 mg, IV Piggyback, at 400 mL/hr Administer over 15 Minutes, ONCE, 1 dose, On Mon12/04/23 at 1845, Routine, Is the patient strict NPO and unable to tolerate oral medication s? Yes [facility] sulfur hexafluorid e microsphr (LUMASON) injection 5 mL 12-03 20:45: 00 12-03 20:32 :00 No [id number] 5mL 5 mL, Intravenou s, ONCE, 1 dose, On Mon12/04/23 at 1545, Routine [facility] lactated ringers IV infusion 1,000 mL 12-03 19:45: 00 12-03 21:58 :00 No 1000mL at 999 mL/hr, 1,000 mL, Intravenou s, ONCE, 1 dose, On Mon12/04/23 at 1445, Routine [facility] furosemide (LASIX) injection 40 mg 12-03 17:30: 00 12-03 17:50 :00 No 40mg 40 mg, Slow IV Push, ONCE, 1 dose, On Mon12/04/23 at 1245, Routine [facility] albumin (ALBUMINAR 25%) 25 % [...] and optimal diuretic therapy alone has failed, aboriginal community council member approving Restricted medication : TAYLOR SEGUNDO [facility] metoprolol (LOPRESSOR) injection 5 mg 12-03 09:38: 03 12-03 23:33 :32 No 5mg 5 mg, Intravenou s, Q6HPRN, Starting on Mon12/04/23 at 0438, Until Mon12/04/23 at 1833, Routine, HR >110, atrial fibrillati on [facility] NORepinephr ine (LEVOPHED) 4 mg/250 [...] intravenou s vasopresso r at a time. [facility] fentaNYL PF (SUBLIMAZE) 10 mcg/mL [...] at maximum allowed dose, contact prescriber . [facility] propofoL IV infusion 12-03 07:55: [...] vials should be discarded after 12 hours. [facility] midazolam (VERSED) injection 12-03 06:32: 00 12-03 07:25 :17 No IV Push, ONCE INTRA PROCEDURE, Starting on Mon12/04/23 at 0132, Until Mon12/04/23 at 0225, Routine, Intra-op [facility] sodium hypochlorit e 0.25% (DAKIN'S SOLUTION) solution 12-03 05:53: 00 12-03 06:59 :50 No PRN, Starting on Mon12/04/23 at 0053, Until Mon12/04/23 at 0159, Routine, Intra-op [facility] Transfuse Packed RBC (in units)~ 12-03 03:27: 00 12-03 07:25 :17 No Routine [facility] NORepinephr ine (LEVOPHED) 4 mg in NaCl 0.9% (NS) 250 mL infusion 12-03 03:07: 00 12-03 07:25 :17 No IV Infusion, CONTINUOUS PRN, Starting on Mon12/03/23 at 2207, Intra-op [facility] Transfuse Packed RBC (in units)~On hold for procedure; 12/02 0800; Infuse Each Unit Over: 2 Hours 12-03 02:48: 41 12-03 07:25 :17 No Routine [facility] labetaloL (NORMODYNE) 5 mg/mL injection 12-03 02:40: 00 12-03 07:25 :17 No Slow IV Push, ONCE INTRA PROCEDURE, Starting on Mon12/03/23 at 2140, Until Mon12/04/23 at 022, Routine, Intra-op [facility] lactated ringers IV infusion 12-03 01:26: 00 12-03 07:25 :17 No IV Infusion, CONTINUOUS PRN, Starting on Mon12/03/23 at 2025, Until Mon12/04/23 at 022, Routine, Intra-op [facility] PHENYLephri ne 1000 mcg/10 mL in 0.9% NaCl syringe 12-03 01:09: 00 12-03 07:25 :17 No Slow IV Push, ONCE INTRA PROCEDURE, Starting on Mon12/03/23 at 2008, Until Mon12/04/23 at 0225, Routine, Intra-op [facility] NORepinephr ine (LEVOPHED) 4 mg in NaCl 0.9% (NS) 250 mL infusion 12-03 01:03: 00 12-03 07:25 :17 No IV Infusion, CONTINUOUS PRN, Starting on Mon12/03/23 at 2002, Intra-op [facility] rocuronium (ZEMURON) injection 12-03 00:56: 00 12-03 07:25 :17 No IV Push, ONCE INTRA PROCEDURE, Starting on Mon12/03/23 at 1956, Until Mon12/04/23 at 0225, Routine, Intra-op [facility] propofoL IV infusion 12-03 00:56: 00 12-03 07:25 :17 No Slow IV Push, ONCE INTRA PROCEDURE, Starting on Mon12/03/23 at 195, Until Mon12/04/23 at 022, Routine, Intra-op [facility] lidocaine 1% (XYLOCAINE) 100 mg/10 mL (1 %) injection 12-03 00:56: 00 12-03 07:25 :17 No Slow IV Push, ONCE INTRA PROCEDURE, Starting on Mon12/03/23 at 1956, Until Mon12/04/23 at 0225, Routine, Intra-op [facility] FENTanyl (PF) (SUBLIMAZE) injection 12-03 00:56: 00 12-03 07:25 :17 No Slow IV Push, ONCE INTRA PROCEDURE, Starting on Mon12/03/23 at 195, Until Mon12/04/23 at 022, Routine, [facility] lactated [facility]ers [facility] 12-03 00:47: 00 12-03 07:25 :17 No IV Infusion, CONTINUOUS PRN, Starting on Mon12/03/23 at 1947, Until Mon12/04/23 at 022, Routine, Intra-op [facility] acetaminoph en (OFIRMEV) IV piggyback 1,000 mg 12-02 23:15: 00 12-02 22:43 :00 No 1000mg 1,000 mg, IV Piggyback, at 400 mL/hr Administer over 15 Minutes, ONCE, 1 dose, On Mon12/03/23 at 1815, Routine, Is the patient strict NPO and unable to tolerate oral medication s? Yes [facility] iopamidol (ISOVUE 370-500 mL) injection 80 mL 12-02 22:12: 00 12-02 22:30 :00 No [id number] 80mL 80 mL, Intravenou s, ONCE, 1 dose, On Mon12/03/23 at 1730, Routine [facility] pantoprazol e (PROTONIX) injection 40 mg 12-02 20:02: 27 12-07 16:33 :39 No 40mg 40 mg, Slow IV Push, Q24H, First dose (after last modificati on) on Mon12/03/23 at 1515, Until Discontinu ed [facility] HYDROmorpho ne (DILAUDID) injection 0.4 mg 12-02 18:53: 24 12-03 06:57 :49 No .4mg 0.4 mg, Intravenou s, Q5MIN PRN, 3 doses, Starting on Mon12/03/23 at 1353, Until Mon12/04/23 at 0157, Routine, Pain (scale 7-10), For disimpacti on, Is this medication approved by a Faculty level provider? Yes, aboriginal community council member approving Restricted medication : TAYLOR SEGUNDO [facility] morpHINE 30 mg/30 mL (fixed dose) [employer] injection 12-02 18:45: 00 12-03 06:57 :49 No Patient Bolus Dose: 1 mg, Lockout Interval: 12 Minutes, Basal Rate: 0 mg/hr, Four Hour Dose Limit: 32 mg, Intravenou s, 30 mL, CONTINUOUS , Starting on Mon12/03/23 at 1345, Until Mon12/04/23 at 0157 [facility] naloxone (NARCAN) injection 0.4 mg 12-02 17:34: 30 Yes .4mg 0.4 mg, Slow IV Push, PRN, Starting on Mon12/03/23 at 1234, Until Discontinu ed, Routine, Sedation/R espiratory Depression [facility] piperacilli n-tazobacta m (ZOSYN) 3.375 [...] Site: Abdominal, Duration of Therapy: 7 days [facility] acetaminoph en ([facility]) IV piggyback 1,000 mg 12-02 15:15: 00 12-02 15:34 :00 No 1000mg 1,000 mg, IV Piggyback, at 400 mL/hr Administer over 15 Minutes, ONCE, 1 dose, On Mon12/03/23 at 1015, Routine, Is the patient strict NPO and unable to tolerate oral medication s? Yes [facility] HYDROmorpho ne (DILAUDID) injection 0.4 mg 12-02 15:04: 12 12-02 17:35 :33 No .4mg 0.4 mg, Slow IV Push, Q4HPRN, Starting on Mon12/03/23 at 1004, Until Mon12/03/23 at 1235, Routine, Pain (scale 7-10), Is this medication approved by a Faculty level provider? Yes, aboriginal community council member approving Restricted medication : TAYLOR SEGUNDO [facility] acetaminoph en ([facility]) IV piggyback 1,000 mg 12-02 10:15: 00 12-02 09:49 :00 No 1000mg 1,000 mg, IV Piggyback, at 400 mL/hr Administer over 15 Minutes, ONCE, 1 dose, On Mon12/03/23 at 0515, Routine, Is the patient strict NPO and unable to tolerate oral medication s? Yes [facility] pantoprazol e (PROTONIX) injection 40 mg 12-02 09:15: 00 12-02 18:57 :58 No 40mg 40 mg, Slow IV Push, Q24H, 3 doses, First dose on Mon12/03/23 at 0415, Last dose on Mon12/05/23 at 0415 [facility] lactated ringers IV infusion 1,000 mL 12-02 09:00: 00 12-04 16:44 :09 No 1000mL at 150 mL/hr, 1,000 mL, IV Infusion, CONTINUOUS , Starting on Mon12/03/23 at 0400, Until Mon12/05/23 at 1144, Routine [facility] morphine (2 mg/mL) injection 4 mg 12-02 08:07: 13 12-02 15:05 :09 No 4mg 4 mg, Slow IV Push, Q3HPRN, Starting on Mon12/03/23 at 0307, Until Mon12/03/23 at 1005, Routine, Pain (scale 7-10), Pain unrelieved by scheduled analgesics [facility] ondansetron (ZOFRAN (PF)) injection 4 mg 12-02 08:06: 29 Yes 4mg [facility] piperacilli n-tazobacta m (ZOSYN) 3.375 g in NaCl 0.9% (NS) 100 mL MINI-BAG 12-02 07:53: 00 12-02 08:36 :00 No 3.375g 3.375 g, IV Piggyback, ONCE, 1 dose, On Mon12/03/23 at 0300, Administer over 30 Minutes, 100 mL, Reason for Anti-Infec tive: Documented Infection, Documented Infection Site: Abdominal, Duration of Therapy: 7 days [facility] HYDROcodone -acetaminop hen 5-325 mg tablet 11-27 00:00: 00 01-13 00:00 :00 No [id number] 1{tbl} Take 1 tablet by mouth every 6 (six) hours as needed for Pain (scale 7-10). Indication s: acute pain, chronic pain [facility] gabapentin 100 mg capsule 11-23 00:00: 00 Yes [id number] 100mg Take 1 capsule by mouth in the morning. [facility] sennosides 8.6 mg tablet 11-23 00:00: 00 Yes [id number] 8.6mg Take 1 tablet by mouth in the morning. [facility] polyethylen e glycol 3350 17 gram powder 11-23 00:00: 00 12-02 00:00 :00 No [id number] 17g Take 1 Packet by mouth in the morning. [facility] perflutren lipid microsphere s (DEFINITY) injection 2 mL 11-22 15:30: 00 11-22 15:30 :00 No [id number] 2mL 2 mL, IV Push, ONCE, 1 dose, On Mon11/23/23 at 1030, Routine [facility] Potassium Bicarb-Citr ic Acid (EFFER-K) effervescen t tablet 40 mEq 11-22 13:15: 00 11-22 13:06 :00 No 40meq 40 mEq, Oral, ONCE, 1 dose, On Mon11/23/23 at 0815, Routine [facility] cephALEXin (KEFLEX) capsule 500 mg 11-22 13:00: 00 11-27 12:59 :00 No 500mg 500 mg, Oral, Q12H, 10 doses, First dose on Mon11/23/23 at 0800, Last dose on Mon11/27/23 at 2000, DIMAS, Reason for Anti-Infec tive: Documented Infection, Documented Infection Site: Urine, Duration of Therapy: 7 days [facility] ferrous sulfate 325 mg (65 mg iron) tablet 11-22 00:00: 00 Yes [id number] 325mg Take 1 tablet by mouth every other day. [facility] cephALEXin 500 mg capsule 11-22 00:00: 00 01-13 00:00 :00 No [id number] 500mg Take 1 capsule by mouth every 12 (twelve) hours. [facility] HYDROcodone -acetaminop hen 5-325 mg tablet 11-22 00:00: 00 11-27 00:00 :00 No [id number] 1{tbl} Take 1 tablet by mouth every 6 (six) hours as needed for Pain (scale 7-10) for up to 7 days. Indication s: acute pain [facility] lidocaine 4% (L-M-X 4) 4 % cream 11-21 22:00: 00 11-21 22:36 :00 No Topical, ONCE, 1 dose, On Mon11/22/23 at 1700, Routine [facility] gabapentin (NEURONTIN) capsule 100 mg 11-21 18:15: 00 Yes 100mg 100 mg, Oral, DAILY, First dose (after last modificati on) on Mon11/22/23 at 1315, Until Discontinu ed, Routine [facility] HYDROcodone -acetaminop hen (NORCO 5) tablet 1 tablet 11-21 14:45: 33 Yes 1{tbl} 1 tablet, Oral, Q6HPRN, Starting on Mon11/22/23 at 0945, Until Discontinu ed, Routine, Pain (scale 7-10) [facility] simethicone (GAS RELIEF (SIMETHICON E)) chewable tablet 80 mg 11-21 14:00: 00 Yes 80mg 80 mg, Oral, PC+HS, First dose on Mon11/22/23 at 0900, Until Discontinu ed, Routine [facility] cefTRIAXone (ROCEPHIN) 1,000 mg in NaCl 0.9% (NS) 100 mL MINI-BAG 11-20 21:00: 00 11-22 12:28 :15 No 1000mg 1,000 mg, IV Piggyback, Q24H ABX, 5 doses, First dose on Mon11/21/23 at 1600, Last dose on Mon11/25/23 at 1600, Administer over 30 Minutes, 100 mL, Reason for Anti-Infec tive: Documented Infection, Documented Infection Site: Urine, Duration of Therapy: 7 days [facility] polyethylen e glycol 3350 powder [...] Until Discontinu ed, Routine [Order 2 End] [facility] ramelteon (ROZEREM) tablet 8 mg 11-20 05:00: 00 11-20 05:00 :00 No 8mg 8 mg, Oral, ONCE NOW, 1 dose, On Mon11/21/23 at 0000, Routine [facility] glycerin/mi neral oil (AGLO ENEMA) (COMPOUNDED ) Enem 225 mL 11-20 04:19: 23 Yes 225mL 225 mL, Rectal, PRN, Starting on Mon11/20/23 at 2319, Until Discontinu ed, Routine, Constipati on unresolved by oral medication s [facility] heparin (porcine) injection 5,000 Units 11-20 03:00: 00 Yes 5000U 5,000 Units, Subcutaneo us, Q8H, First dose on Mon11/20/23 at 2200, Until Discontinu ed, Routine [facility] acetaminoph en (TYLENOL) tablet 650 mg 11-20 02:16: 20 Yes 650mg [facility] insulin lispro (human) (HumaLOG U-100) injection 2 Units 11-19 22:22: 30 Yes 2U 2 Units, Subcutaneo us, PRN - SEE INSTRUCTIO NS, 1 dose, Starting on Mon11/20/23 at 1722, Until Discontinu ed, Routine, For blood glucose > 300 mg/dL [facility] dextrose 10% (D10W) bolus infusion [...] carb snack - Sprite or cranberry juice. [facility] NaCl 0.9% (NS) bolus infusion 500 mL 11-19 22:00: 00 11-19 23:24 :00 No [id number] 500mL at 999 mL/hr, 500 mL, IV Piggyback, ONCE, 1 dose, On Mon11/20/23 at 1700, STAT [facility] lidocaine (XYLOCAINE) 2 % jelly URO-JET 10 mL 11-19 20:45: 00 11-19 22:32 :00 No 10mL 10 mL, Urethral, ONCE, 1 dose, On Mon11/20/23 at 1545, Routine [facility] sodium bicarbonate 150 mEq in D5W 1,000 mL IV infusion 11-19 20:30: 00 11-20 06:30 :00 No 150meq IV Infusion, at 200 mL/hr, 150 mEq, ONCE, 1 dose, On Mon11/20/23 at 1530, DIMAS [facility] insulin regular human (HUMULIN R) injection 10 Units 11-19 20:30: 00 11-19 23:14 :00 No 10U 10 Units, IV Push, ONCE, 1 dose, On Mon11/20/23 at 1530, DIMAS, Indication for insulin: Hyperkalem ia- Please use the Insulin Protocol for Hyperkalem ia order set [facility] dextrose 50 % in water (D50W) injection 50 mL 11-19 20:30: 00 11-19 23:06 :00 No 50mL 50 mL, Slow IV Push, ONCE, 1 dose, On Mon11/20/23 at 1530, DIMAS [facility] glucagon HCL injection 1 mg 11-19 20:17: 46 Yes 1mg 1 mg, Intramuscu lar, PRN, Starting on Mon11/20/23 at 1517, Until Discontinu ed, DIMAS, Low blood sugar, Blood Glucose < or = 70 mg/dL and patient is NPO, unable to swallow or has mental changes. [facility] dextrose 50 % in water (D50W) injection 25 mL 11-19 20:17: 46 Yes 25mL 25 mL, Slow IV Push, PRN, Starting on Mon11/20/23 at 1517, Until Discontinu ed, DIMAS, Blood Glucose < or = 70 mg/dL and patient is NPO, unable to swallow or has mental status changes. [facility] fentanyl PF (SUBLIMAZE (PF)) injection 12.5 mcg 11-19 20:00: 00 11-19 20:34 :00 No 12.5ug 12.5 mcg, Slow IV Push, ONCE, 1 dose, On Mon11/20/23 at 1500, Routine [facility] piperacilli n-tazobacta m (ZOSYN) 2.25 g in NaCl 0.9% (NS) 100 mL MINI-BAG 11-19 20:00: 00 11-19 22:31 :00 No 2.25g 2.25 g, IV Piggyback, ONCE, 1 dose, On Mon11/20/23 at 1500, Administer over 30 Minutes, 100 mL, Reason for Anti-Infec tive: Documented Infection, Documented Infection Site: Urine, Duration of Therapy: Once (ED) [facility] metoclopram margarita HCl (REGLAN) injection 10 mg 11-19 20:00: 00 11-19 20:48 :00 No 10mg 10 mg, Slow IV Push, ONCE, 1 dose, On Mon11/20/23 at 1500, DIMAS [facility] NaCl 0.9% (NS) bolus infusion 500 mL 11-19 17:30: 00 11-19 22:31 :00 No 500mL at 999 mL/hr, 500 mL, IV Infusion, ONCE, 1 dose, On Mon11/20/23 at 1230, STAT [facility] Vital Signs Vital Name Observation Time Observation Value Comments S ource Systolic blood pressure 2024-01-14 12:27:00 121 mm[Hg] [facility] Diastolic blood pressure 2024-01-14 12:27:00 68 mm[Hg] [facility] Heart rate 2024-01-14 12:27:00 86 /min [facility] Body temperature 2024-01-14 12:27:00 36.17 Adore [facility] Respiratory rate 2024-01-14 12:27:00 18 /min [facility] Oxygen saturation in Arterial blood by Pulse oximetry 2024-01-14 12:27:00 97 /min [facility] Body height 2024-01-06 23:35:00 170.2 cm [facility] Body weight 2024-01-06 23:35:00 170.552 kg [facility] BMI 2024-01-06 23:35:00 58.89 kg/m2 [facility] Systolic blood pressure 2023-12-29 14:00:00 133 mm[Hg] [facility] Diastolic blood pressure 2023-12-29 14:00:00 62 mm[Hg] [facility] Heart rate 2023-12-29 14:00:00 87 /min [facility] Body temperature 2023-12-29 14:00:00 36.56 Adore [facility] Respiratory rate 2023-12-29 14:00:00 17 /min [facility] Oxygen saturation in Arterial blood by Pulse oximetry 2023-12-29 14:00:00 98 /min [facility] Body height 2023-12-27 13:00:00 172.7 cm [facility] Body weight 2023-12-27 13:00:00 170.099 kg [facility] BMI 2023-12-27 13:00:00 57.02 kg/m2 [facility] Respiratory rate 2023-12-04 00:52:00 30 /min [facility] Heart rate 2023-12-03 23:00:00 98 /min [facility] Respiratory rate 2023-12-03 23:00:00 28 /min [facility] Oxygen saturation in Arterial blood by Pulse oximetry 2023-12-03 23:00:00 99 /min [facility] Systolic blood pressure 2023-12-03 22:00:00 155 mm[Hg] [facility] Diastolic blood pressure 2023-12-03 22:00:00 76 mm[Hg] [facility] Body temperature 2023-12-03 21:00:00 37.61 Adore [facility] Body height 2023-12-03 15:19:00 172.7 cm [facility] Body weight 2023-12-03 15:19:00 170.1 kg [facility] BMI 2023-12-03 15:19:00 57.02 kg/m2 [facility] Systolic blood pressure 2023-11-23 16:54:00 136 mm[Hg] [facility] Diastolic blood pressure 2023-11-23 16:54:00 61 mm[Hg] [facility] Heart rate 2023-11-23 16:54:00 92 /min Unive [facility] Body temperature 2023-11-23 16:54:00 36.22 Adore [facility] Respiratory rate 2023-11-23 16:54:00 18 /min [facility] Oxygen saturation in Arterial blood by Pulse oximetry 2023-11-23 16:54:00 96 /min [facility] Body height 2023-11-21 01:17:00 170.2 cm [facility] Body weight 2023-11-21 01:17:00 171.913 kg [facility] BMI 2023-11-21 01:17:00 59.36 kg/m2 [facility] Heart rate 2023-12-04 16:20:00 106 /min [facility] Respiratory rate 2023-12-04 16:20:00 22 /min [facility] Oxygen saturation in Arterial blood by Pulse oximetry 2023-12-04 16:20:00 100 /min [facility] Body temperature 2023-12-04 13:00:00 37.28 Adore [facility] Systolic blood pressure 2023-12-04 07:15:00 194 mm[Hg] [facility] Diastolic blood pressure 2023-12-04 07:15:00 165 mm[Hg] [facility] Body height 2023-12-03 15:19:00 172.7 cm [facility] Body weight 2023-12-03 15:19:00 170.1 kg [facility] BMI 2023-12-03 15:19:00 57.02 kg/m2 [facility] Procedures Procedure Date / Time Performed Performing Clinician Source PHOSPHORUS 2024-01-08 09:03:00 JulienShira [facility] MAGNESIUM 2024-01-08 09:03:00 JulienShira [facility] BASIC METABOLIC PANEL (NA, K, CL, CO2, GLUCOSE, BUN, CREATININE, CA) 2024-01-08 09:03:00 [facility] WITH [facility]FF 2024-01-08 09:03:00 [facility] 2024-01-07 08:22:00 Julien Shira [facility] MAGNESIUM 2024-01-07 08:22:00 [facility] (NA, K, CL, CO2, GLUCOSE, BUN, CREATININE, CA) 2024-01-07 08:22:00 [facility] WITH DIFF 2024-01-07 08:22:00 [facility] BY PCRMARY GRACE 2024-01-07 01:55:00 Julien [facility] PHOSPHORUS 2024-01-07 01:46:[address] [facility] 2024-01-07 01:46:00 [facility] PAN[facility] (NA, K, CL, CO2, GLUCOSE, BUN, CREATININE, CA) 2024-01-07 01:46:00 Julien [facility] CBC WITH DIFF 2024-01-07 01:46:[address] [facility] [facility]EL[facility] W CONTRAST 2023-12-22 17:55:36 Yoni Simon [facility] PHOSPHORUS 2023-12-20 10:27:00 Corey Carias [facility] MAGNESIUM 2023-12-20 10:27:00 Corey Carias [facility] BASIC METABOLIC PANEL (NA, K, CL, CO2, GLUCOSE, BUN, CREATININE, CA) 2023-12-20 10:27:00 Corey Costello [facility] CBC WITH DIFF 2023-12-20 10:27:00 Corey Carias [facility] PHOSPHORUS 2023-12-19 14:46:00 Corey Carias [facility] MAGNESIUM 2023-12-19 14:45:00 Corey Carias [facility] PHOSPHORUS 2023-12-18 11:20:00 Corey Carias [facility] MAGNESIUM 2023-12-18 11:20:00 Corey Carias [facility] BASIC METABOLIC PANEL (NA, K, CL, CO2, GLUCOSE, BUN, CREATININE, CA) 2023-12-18 11:20:00 Corey Costello [facility] CBC WITH DIFF 2023-12-18 11:20:00 Corey Carias [facility] PHOSPHORUS 2023-12-17 09:20:00 Corey Carias [facility] MAGNESIUM 2023-12-17 09:20:00 Corey Carias [facility] BASIC METABOLIC PANEL (NA, K, CL, CO2, GLUCOSE, BUN, CREATININE, CA) 2023-12-17 09:20:00 Corey Costello [facility] CBC WITH DIFF 2023-12-17 09:20:00 Corey Carias [facility] ACTIVATED PARTIAL THRMPLAS JESUS MANUEL 2023-12-16 21:28:00 Corey Costello [facility] PHOSPHORUS 2023-12-16 07:47:00 Corey Carias [facility] MAGNESIUM 2023-12-16 07:47:00 Corey Carias [facility] BASIC METABOLIC PANEL (NA, K, CL, CO2, GLUCOSE, BUN, CREATININE, CA) 2023-12-16 07:47:00 Corey Costello [facility] CBC WITH DIFF 2023-12-16 07:47:00 Corey Carias [facility] ACTIVATED PARTIAL THRMPLAS JESUS MANUEL 2023-12-16 03:37:00 Corey Costello [facility] ACTIVATED PARTIAL THRMPLAS JESUS MANUEL 2023-12-15 20:20:00 Corey Costello [facility] PHOSPHORUS 2023-12-15 08:44:00 Corey Carias [facility] MAGNESIUM 2023-12-15 08:44:00 Corey Carias [facility] BASIC METABOLIC PANEL (NA, K, CL, CO2, GLUCOSE, BUN, CREATININE, CA) 2023-12-15 08:44:00 Corey Costello [facility] CBC WITH DIFF 2023-12-15 08:44:00 Corey Carias [facility] ACTIVATED PARTIAL THRMPLAS JESUS MANUEL 2023-12-15 08:44:00 Corey Costello [facility] POTASSIUM SERUM 2023-12-15 06:07:00 Magy Ayala [facility] ACTIVATED PARTIAL THRMPLAS JESUS MANUEL 2023-12-15 01:36:00 Corey Costello [facility] ACTIVATED PARTIAL THRMPLAS JESUS MANUEL 2023-12-14 17:23:00 Corey Costello [facility] PHOSPHORUS 2023-12-14 09:57:00 Corey Carias [facility] MAGNESIUM 2023-12-14 09:57:00 Corey Carias [facility] BASIC METABOLIC PANEL (NA, K, CL, CO2, GLUCOSE, BUN, CREATININE, CA) 2023-12-14 09:57:00 Corey Costello [facility] CBC WITH DIFF 2023-12-14 09:57:00 Corey Carias [facility] PROTHROMBIN TIME / INR 2023-12-14 09:57:00 Angela Almodovar [facility] ACTIVATED PARTIAL THRMPLAS JESUS MANUEL 2023-12-14 09:57:00 Corey Costello [facility] ACTIVATED PARTIAL THRMPLAS JESUS MANUEL 2023-12-14 03:11:00 Corey Costello [facility] ACTIVATED PARTIAL THRMPLAS JESUS MANUEL 2023-12-13 19:52:00 Corey Costello [facility] BASIC METABOLIC PANEL (NA, K, CL, CO2, GLUCOSE, BUN, CREATININE, CA) 2023-12-13 18:24:00 Corey Costello [facility] PHOSPHORUS 2023-12-13 10:34:00 Corey Carias [facility] MAGNESIUM 2023-12-13 10:34:00 Corey Carias [facility] BASIC METABOLIC PANEL (NA, K, CL, CO2, GLUCOSE, BUN, CREATININE, CA) 2023-12-13 10:34:00 Corey Costello [facility] CBC WITH DIFF 2023-12-13 10:34:00 Corey Carias [facility] ACTIVATED PARTIAL THRMPLAS JESUS MANUEL 2023-12-13 10:34:00 Corey Costello [facility] ACTIVATED PARTIAL THRMPLAS JESUS MANUEL 2023-12-12 19:43:00 Corey Costello [facility] PHOSPHORUS 2023-12-12 10:45:00 Corey Carias [facility] MAGNESIUM 2023-12-12 10:45:00 Corey Carias [facility] HEPATIC FUNCTION PANEL (20870) (ALB,T.PRO,BILI T,BU/BC,ALT,AST,ALK PHOS) 2023-12-12 10:45:00 Sukhwinder Almodovar [facility] BASIC METABOLIC PANEL (NA, K, CL, CO2, GLUCOSE, BUN, CREATININE, CA) 2023-12-12 10:45:00 Corey Costello [facility] CBC WITH DIFF 2023-12-12 10:45:00 Corey Carias [facility] PROTHROMBIN TIME / INR 2023-12-12 10:45:00 Angela Almodovar [facility] ACTIVATED PARTIAL THRMPLAS JESUS MANUEL 2023-12-12 10:45:00 Corey Costello [facility] ACTIVATED PARTIAL THRMPLAS JESUS MANUEL 2023-12-12 03:53:00 Corey Costello [facility] ACTIVATED PARTIAL THRMPLAS JESUS MANUEL 2023-12-11 20:53:00 Corey Costello [facility] PROTHROMBIN TIME / INR 2023-12-11 20:52:00 Corey Dugan [facility] PHOSPHORUS 2023-12-11 08:32:00 Corey Carias [facility] MAGNESIUM 2023-12-11 08:32:00 Corey Carias [facility] BASIC METABOLIC PANEL (NA, K, CL, CO2, GLUCOSE, BUN, CREATININE, CA) 2023-12-11 08:32:00 Corey Costello [facility] CBC WITH DIFF 2023-12-11 08:32:00 Corey Carias [facility] XR CHEST 1 VW 2023-12-10 10:12:00 Corey Carias [facility] PHOSPHORUS 2023-12-10 08:10:00 Corey Carias [facility] MAGNESIUM 2023-12-10 08:10:00 Corey Carias [facility] BASIC METABOLIC PANEL (NA, K, CL, CO2, GLUCOSE, BUN, CREATININE, CA) 2023-12-10 08:10:00 Corey Cotsello [facility] CBC WITH DIFF 2023-12-10 08:10:00 Corey Carias [facility] BODY FLUID CULTURE(AEROBIC/ANAEROBIC) 2023-12-09 14:04:00 Corey Costello [facility] XR CHEST 1 VW 2023-12-09 09:46:00 Corey Carias [facility] PHOSPHORUS 2023-12-09 08:47:00 Corey Carias [facility] MAGNESIUM 2023-12-09 08:47:00 Corey Carias [facility] BASIC METABOLIC PANEL (NA, K, CL, CO2, GLUCOSE, BUN, CREATININE, CA) 2023-12-09 08:47:00 Corey Costello [facility] CBC WITH DIFF 2023-12-09 08:47:00 Corey Carias [facility] XR KUB 2023-12-09 03:07:55 Marilee Wei [facility] CT ABDOMEN PELVIS W CONTRAST 2023-12-08 16:31:19 Corey Costello [facility] XR CHEST 1 VW 2023-12-08 08:58:00 Corey Carias [facility] PHOSPHORUS 2023-12-08 08:47:00 Corey Carias [facility] MAGNESIUM 2023-12-08 08:47:00 Corey Carias [facility] BASIC METABOLIC PANEL (NA, K, CL, CO2, GLUCOSE, BUN, CREATININE, CA) 2023-12-08 08:47:00 Corey Costello [facility] CBC WITH DIFF 2023-12-08 08:47:00 Corey Carias [facility] XR CHEST 1 VW 2023-12-07 09:14:00 Corey Carias [facility] PHOSPHORUS 2023-12-07 08:28:00 [facility]23-12-07 08:28:00 Dariel [facility] BASIC METABOLIC PANEL (NA, K, CL, CO2, GLUCOSE, BUN, CREATININE, CA) 2023-12-07 08:28:00 [facility] 2023-12-07 08:28:[address] [facility] AC PANEL 20 + LACTIC ACID 2023-12-07 08:27:00 Jeny Garner [facility] URINALYSIS 2023-12-06 17:32:00 Jim Jaquez [facility] AC PANEL 20 + LACTIC ACID 2023-12-06 14:55:00 Jeny Garner [facility] TRANSFUSE PACKED RBC 2023-12-06 10:05:00 Beckie Carreon [facility] PREPARE PACKED RBC 2023-12-06 09:47:53 Beckie Carreon [facility] XR CHEST 1 VW 2023-12-06 09:03:00 Corey Carias [facility] PHOSPHORUS 2023-12-06 08:18:00 [facility] 2023-12-06 08:18:00 [facility] BASIC METABOLIC PANEL (NA, K, CL, CO2, GLUCOSE, BUN, CREATININE, CA) 2023-12-06 08:18:00 Dariel [facility] CBC WITH DIFF 2023-12-06 08:18:00 [facility] AC PANEL 20 + LACTIC ACID 2023-12-06 08:18:00 Beckie Carreon [facility] ACUTE CARE ARTERIAL BLOOD GAS 2023-12-05 17:35:00 Yoni Simon [facility] XR CHEST 1 VW 2023-12-05 08:53:00 Corey Carias [facility] PHOSPHORUS 2023-12-05 08:34:00 [facility] 2023-12-05 08:34:00 [facility] BASIC METABOLIC PANEL (NA, K, CL, CO2, GLUCOSE, BUN, CREATININE, CA) 2023-12-05 08:34:[facility] 2023-12-05 08:34:00 [facility] AC PANEL 20 + LACTIC ACID 2023-12-05 08:34:00 [facility] + LACTIC ACID 2023-12-05 03:58:00 Dongcharlotte, [facility] AC PANEL 20 + LACTIC ACID 2023-12-05 01:49:00 [facility]W 2023-12-05 01:04:00 Dongcharlotte, [facility] XR CHEST 1 VW 2023-12-05 01:03:45 Lauri [facility] BASIC METABOLIC PANEL (NA, K, CL, CO2, GLUCOSE, BUN, CREATININE, CA) 2023-12-04 22:35:00 Nishi [facility] CBC WITH DIFF 2023-12-04 22:35:00 Nishi Sukhwinder [facility] TRANSTHORACIC ECHO (TTE) LIMITED W/ CONTRAST 2023-12-04 20:36:00 Corey Costello [facility] AC PANEL 20 + LACTIC ACID 2023-12-04 19:53:00 Lauri [facility] AC PANEL 20 + LACTIC ACID 2023-12-04 10:28:00 Dongcharlotte, [facility] AC PANEL 20 + LACTIC ACID 2023-12-04 10:28:00 Lauri, [facility] AC PANEL 20 + LACTIC ACID 2023-12-04 10:28:00 Lauri [facility] AC PANEL 20 + LACTIC ACID 2023-12-04 08:15:00 Michelle Steiner [facility] AC PANEL 20 + LACTIC ACID 2023-12-04 08:15:00 Michelle Steiner [facility] AC PANEL 20 + LACTIC ACID 2023-12-04 08:15:00 Michelle Steiner [facility] CBC WITH DIFF 2023-12-04 08:14:00 Elizabeth Steiner [facility] BASIC METABOLIC PANEL (NA, K, CL, CO2, GLUCOSE, BUN, CREATININE, CA) 2023-12-04 08:14:00 Elizabeth Steiner [facility] MAGNESIUM 2023-12-04 08:14:00 Green, [facility] PHOSPHORUS 2023-12-04 08:14[facility]00 [facility] TH[facility]PLAS JESUS MANUEL 2023-12-04 [facility] 2023-12-04 08:14:00 Green [facility] FIBRINOGEN 2023-12-04 08:14:00 [facility] GLYCOSYL[facility] HEMOGLOBIN (A1C) 2023-12-04 08:14:00 Los Guidry [facility] PHOSPHORUS 2023-12-04 08:14:00 [facility] 2023-12-04 08:14:00 [facility] BASIC METABOLIC PANEL (NA, K, CL, CO2, GLUCOSE, BUN, CREATININE, CA) 2023-12-04 08:14:00 Jatin [facility] CBC WITH DIFF 2023-12-04 08:14[facility] GLYCOS[facility]EMOGLOBIN (A1C) 2023-12-04 08:14:00 [facility] PROTHROMBIN TIME / INR 2023-12-04 08:14[facility] TH[facility]PLAS JESUS MANUEL 2023-12-04 08:14:00 Green [facility] FIBRINOGEN 2023-12-04 08:14:00 [facility] 2023-12-04 08:14:00 [facility] 2023-12-04 08:14:00 [facility] BASIC METABOLIC PANEL (NA, K, CL, CO2, GLUCOSE, BUN, CREATININE, CA) 2023-12-04 08:14:00 Green [facility] CBC WITH DIFF 2023-12-04 08:14:00 [facility] GLYCOSYLATED HEMOGLOBIN (A1C) 2023-12-04 08:14:00 Los [facility]ry [facility] PROTHROMBIN TIME / INR 2023-12-04 08:14:00 Jatin [facility] ACTIVATED PARTIAL THRMPLAS JESUS MANUEL 2023-12-04 08:14:00 [facility] 2023-12-04 08:14:00 [facility] 2023-12-04 07:47:00 Green [facility] XR KUB 2023-12-04 07:47:00 Green [facility] XR KUB 2023-12-04 07:47:00 Green [facility] XR KUB 2023-12-04 07:46:00 Jatin [facility] XR KUB 2023-12-04 07:46:00 Jatin [facility] XR KUB 2023-12-04 07:46:00 [facility] 2023-12-04 07:43:00 Jatin [facility] XR CHEST 1 2023-12-04 07:43:00 Jatin [facility] XR CHEST 1 2023-12-04 07:43:00 Jatin [facility] XR KUB 2023-12-04 07:43:00 Jatin [facility] XR CHEST 1 2023-12-04 07:43:00 [facility] 2023-12-04 07:43:00 Jatin [facility] SURGICAL PATHOLOGY EXAM 2023-12-04 06:23:00 Jaquan Segundo [facility] ABG+COOX+NA+K+GLU+CA2+ 2023-12-04 06:08:00 Randy Saravia [facility] ABG+COOX+NA+K+GLU+CA2+ 2023-12-04 04:15:00 Randy Saravia [facility] TRANSFUSE PACKED RBC 2023-12-04 03:30:00 Stan Izquierdo [facility] TRANSFUSE PACKED RBC 2023-12-04 03:30:00 Stan Izqueirdo [facility] TRANSFUSE PACKED RBC 2023-12-04 03:30:00 Stan Izquierdo [facility] ABG+COOX+NA+K+GLU+CA2+ 2023-12-04 03:00:00 Randy Saravia [facility] TRANSFUSE PACKED RBC 2023-12-04 02:51:00 Taylor Segundo [facility] TRANSFUSE PACKED RBC 2023-12-04 02:51:00 Taylor Segundo [facility] TRANSFUSE PACKED RBC 2023-12-04 02:51:00 Taylor Segundo [facility] PREPARE PACKED RBC 2023-12-04 02:36:27 [facility] 2023-12-04 02:36:27 Stan Izquierdo [facility] PREPARE PACKED RBC 2023-12-04 02:36:27 Stan Izquierdo [facility] ARTERIAL LINE 2023-12-04 01:12:00 Bashir Carvalho [facility] ARTERIAL LINE 2023-12-04 01:12:00 Bashir Carvalho [facility] INTUBATION 2023-12-04 00:57:00 Bashir Carvalho [facility] INTUBATION 2023-12-04 00:57:00 Bashir Carvalho [facility] EXPLORATORY LAPAROTOMY 2023-12-04 00:33:00 Taylor Segundo [facility] [id number] - [place] COLECTOMY PRTL W/SKIN LEVEL CECOST/COLOSTOMY 2023-12-04 00:33:00 Taylor Segundo [facility] FECAL DISIMPACTION 2023-12-04 00:33:00 Taylor Segundo [facility] EXPLORATORY LAPAROTOMY 2023-12-04 00:33:00 Taylor Segundo [facility] [id number] - [place] COLECTOMY PRTL W/SKIN LEVEL CECOST/COLOSTOMY 2023-12-04 00:33:00 Taylor Segundo [facility] FECAL DISIMPACTION 2023-12-04 00:33:00 [facility] LAPAROTOMY 2023-12-04 00:33:00 Sanya Taylor [facility] [id number] - [place] COLECTOMY PRTL W/SKIN LEVEL CECOST/COLOSTOMY 2023-12-04 00:33:00 Sanya Taylor [facility] FECAL DISIMPACTION 2023-12-04 00:33:00 Thaijulissa Taylor Rodriguez [facility] CT ABDOMEN PELVIS W CONTRAST 2023-12-03 22:15:15 Yazmin [facility] CT ABDOMEN PELVIS W CONTRAST 2023-12-03 22:15:15 Yazmin [facility] CT ABDOMEN PELVIS W CONTRAST 2023-12-03 22:15:15 Yazmin [facility] AC PANEL 21 + LACTIC ACID 2023-12-03 20:56:00 Sa zia Alvarez [facility] AC PANEL 21 + LACTIC ACID 2023-12-03 20:56:00 Sa zia Alvarez [facility] AC PANEL 21 + LACTIC ACID 2023-12-03 20:56:00 Sa zia Alvarez [facility] CBC WITH DIFF 2023-12-03 19:40:00 Ko Alvarez [facility] BASIC METABOLIC PANEL (NA, K, CL, CO2, GLUCOSE, BUN, CREATININE, CA) 2023-12-03 19:40:00 Ko Alvarez [facility] HEPATIC FUNCTION PANEL (37850) (ALB,T.PRO,BILI T,BU/BC,ALT,AST,ALK PHOS) 2023-12-03 19:40:00 Ko Alvarez [facility] ACTIVATED PARTIAL THRMPLAS JESUS MANUEL 2023-12-03 19:40:00 Ko Alvarez [facility] PROTHROMBIN TIME / INR 2023-12-03 19:40:00 Doris Alvarez [facility] HEPATIC FUNCTION PANEL ([id number]) (ALB,T.PRO,BILI T,BU/BC,ALT,AST,ALK PHOS) 2023-12-03 19:40:00 Salimi Jazi, [facility] BASIC METABOLIC PANEL (NA, K, CL, CO2, GLUCOSE, BUN, CREATININE, CA) 2023-12-03 19:40:00 Ko Alvarez [facility] CBC WITH DIFF 2023-12-03 19:40:00 Ko Alvarez [facility] PROTHROMBIN TIME / INR 2023-12-03 19:40:00 Doris Alvarez [facility] ACTIVATED PARTIAL THRMPLAS JESUS MANUEL 2023-12-03 19:40:00 Ko Alvarez [facility] HEPATIC FUNCTION PANEL ([id number]) (ALB,T.PRO,BILI T,BU/BC,ALT,AST,ALK PHOS) 2023-12-03 19:40:00 Ko Alvarez [facility] BASIC METABOLIC PANEL (NA, K, CL, CO2, GLUCOSE, BUN, CREATININE, CA) 2023-12-03 19:40:00 Ko Alvarez [facility] CBC WITH DIFF 2023-12-03 19:40:00 Ko Alvarez [facility] PROTHROMBIN TIME / INR 2023-12-03 19:40:00 Doris Alvarez [facility] ACTIVATED PARTIAL THRMPLAS JESUS MANUEL 2023-12-03 19:40:00 Ko Alvarez [facility] CT ABDOMEN PELVIS W CONTRAST 2023-12-03 18:33:[address] [facility] [address] ABDOMEN PELVIS W CONTRAST 2023-12-03 18:33:[address] [facility] [address] ABDOMEN PELVIS W CONTRAST 2023-12-03 18:33:18 See [facility] FIBRINOGEN 2023-12-03 16:27:00 Corey Carias [facility] ACTIVATED PARTIAL THRMPLAS JESUS MANUEL 2023-12-03 16:27:00 Corey Costello [facility] PROTHROMBIN TIME / INR 2023-12-03 16:27:00 Corey Dugan [facility] PROTHROMBIN TIME / INR 2023-12-03 16:27:00 [facility] [facility] ACTIVATED PARTIAL THRMPLAS JESUS MANUEL 2023-12-03 16:27:00 Corey Costello [facility] FIBRINOGEN 2023-12-03 16:27:00 Corey Carias [facility] PROTHROMBIN TIME / INR 2023-12-03 16:27:00 Corey Dugan [facility] ACTIVATED PARTIAL THRMPLAS JESUS MANUEL 2023-12-03 16:27:00 Corey Costello [facility] FIBRINOGEN 2023-12-03 16:27:00 Corey Carias [facility] PREPARE PACKED RBC 2023-12-03 13:33:02 Taylor Segundo [facility] PREPARE PACKED RBC 2023-12-03 13:33:02 Taylor Segundo [facility] HB ABO GROUPING 2023-12-03 12:35:00 Taylor Segundo [facility] HB ABO GROUPING 2023-12-03 12:35:00 Taylor Segundo [facility] HB ABO GROUPING 2023-12-03 12:35:00 Taylor Segundo [facility] CBC WITH DIFF 2023-12-03 08:05:00 Feliberto Hoyt [facility] BASIC METABOLIC PANEL (NA, K, CL, CO2, GLUCOSE, BUN, CREATININE, CA) 2023-12-03 08:05:00 Evelina [facility] LACTIC ACID WHOLE BLOOD 2023-12-03 08:05:00 Evelina [facility] MAGNESIUM 2023-12-03 08:05:00 Feliberto Hoyt [facility] PROTHROMBIN TIME / INR 2023-12-03 08:05:00 Evelina [facility] ACTIVATED PARTIAL THRMPLAS JESUS MANUEL 2023-12-03 08:05:00 Evelina [facility] HEPATIC FUNCTION PANEL ([id number]) (ALB,T.PRO,BILI T,BU/BC,ALT,AST,ALK PHOS) 2023-12-03 08:05:00 Evelina, [facility] MAGNESIUM 2023-12-03 08:05:00 Evelina, [facility] HEPATIC FUNCTION PANEL ([id number]) (ALB,T.PRO,BILI T,BU/BC,ALT,AST,ALK PHOS) 2023-12-03 08:05:00 Evelina, [facility] BASIC METABOLIC PANEL (NA, K, CL, CO2, GLUCOSE, BUN, CREATININE, CA) 2023-12-03 08:05:00 Evelina, [facility] CBC WITH DIFF 2023-12-03 08:05:00 Evelina, [facility] PROTHROMBIN TIME / INR 2023-12-03 08:05:00 Evelina, [facility] ACTIVATED PARTIAL THRMPLAS JESUS MANUEL 2023-12-03 08:05:00 Evelina, [facility] LACTIC ACID WHOLE BLOOD 2023-12-03 08:05:00 Evelina, [facility] MAGNESIUM 2023-12-03 08:05:00 Evelina, [facility] HEPATIC FUNCTION PANEL ([id number]) (ALB,T.PRO,BILI T,BU/BC,ALT,AST,ALK PHOS) 2023-12-03 08:05:00 Evelina, [facility] BASIC METABOLIC PANEL (NA, K, CL, CO2, GLUCOSE, BUN, CREATININE, CA) 2023-12-03 08:05:00 Evelina, [facility] CBC WITH DIFF 2023-12-03 08:05:00 Evelina, [facility] PROTHROMBIN TIME / INR 2023-12-03 08:05:00 Evelina, [facility] ACTIVATED PARTIAL THRMPLAS JESUS MANUEL 2023-12-03 08:05:00 Evelina, [facility] LACTIC ACID WHOLE BLOOD 2023-12-03 08:05:00 Evelina, [facility] TRANSTHORACIC ECHO (TTE) COMPLETE W/ CONTRAST 2023-11-23 15:24:26 Cherry Garcia [facility] TRANSTHORACIC ECHO (TTE) COMPLETE W/ CONTRAST 2023-11-23 15:24:26 Radha [facility] CBC WITH DIFF 2023-11-23 11:09:00 [facility] 2023-[facility]-23 11:09:00 Radha [facility] BASIC METABOLIC PANEL (NA, K, CL, CO2, GLUCOSE, BUN, CREATININE, CA) 2023-11-23 11:09:00 Radha [facility] MAGNESIUM 2023-11-23 11:09:00 [facility] (NA, K, CL, CO2, GLUCOSE, BUN, CREATININE, CA) 2023-11-23 11:09:00 Radha [facility] CBC WITH DIFF 2023-11-23 11:09:00 Radha [facility] HB ECG ROUTINE & RHYTHM STRIP 2023-11-22 14:50:13 Radha [facility] HB ECG ROUTINE & RHYTHM STRIP 2023-11-22 14:50:13 Radha [facility] CBC WITH DIFF 2023-11-22 10:01:00 Jet Aguilar [facility] BASIC METABOLIC PANEL (NA, K, CL, CO2, GLUCOSE, BUN, CREATININE, CA) 2023-11-22 10:01:00 Jet Aguilar [facility] MAGNESIUM 2023-11-22 10:01:00 Jet Aguilar [facility] THYROID STIMULATING HORMONE 2023-11-22 10:01:00 Radha [facility] MAGNESIUM 2023-11-22 10:01:00 Jet Aguilar [facility] THYROID STIMULATING HORMONE 2023-11-22 10:01:00 Radha [facility] BASIC METABOLIC PANEL (NA, K, CL, CO2, GLUCOSE, BUN, CREATININE, CA) 2023-11-22 10:01:00 Jet Aguilar [facility] CBC WITH DIFF 2023-11-22 10:01:00 Jet Aguilar [facility] CBC WITHOUT DIFF 2023-11-21 16:46:00 [facility] 2023-11-21 16:46:00 Jet Aguilar [facility] RETROPERITONEAL LIMITED 2023-11-21 12:03:00 [facility] RETROPERITONEAL LIMITED 2023-11-21 12:03:00 [place] Lee [facility] PREPARE PACKED RBC 2023-11-21 11:09:04 Kiera Davidson [facility] PREPARE PACKED RBC 2023-11-21 11:09:04 Kiera Davidson [facility] ABORH CONFIRMATION (LAB ONLY) 2023-11-21 10:16[facility] (LAB ONLY) 2023-11-21 10:16[facility]00 [facility] 2023-11-21 10:05:00 Thelma Davidson [facility] HB ABO GROUPING 2023-11-21 10:05:00 Thelma Davidson [facility] CBC WITHOUT DIFF 2023-11-21 09:34:00 King Davidson [facility] CBC WITHOUT DIFF 2023-11-21 09:34:00 King Davidson [facility] CBC WITH DIFF 2023-11-21 08:51:00 Mt Davidson [facility] BASIC METABOLIC PANEL (NA, K, CL, CO2, GLUCOSE, BUN, CREATININE, CA) 2023-11-21 08:51:00 Mt Davidson [facility] MAGNESIUM 2023-11-21 08:51:00 Mt Davidson [facility] MAGNESIUM 2023-11-21 08:51:00 Lety cristy [facility] BASIC METABOLIC PANEL (NA, K, CL, CO2, GLUCOSE, BUN, CREATININE, CA) 2023-11-21 08:51:00 [facility] 2023-11-21 08:51:00 [facility] 2023-11-21 04:02:00 Lety [facility] LACTIC ACID WHOLE BLOOD 2023-11-21 04:02:00 [facility]EN 2023-11-21 03:55:00 [facility] 2023-11-21 03:55:00 [facility] / INR 2023-11-21 03:05:00 Lety [facility] ACTIVATED PARTIAL THRMPLAS JESUS MANUEL 2023-11-21 03:05:00 Lety [facility] IRON PANEL 2023-11-21 03:05:00 [facility] VIT[facility] B12, LEVEL 2023-11-21 03:05:00 [facility] 2023-11-21 03:05:00 Leyt [facility] LACTATE DEHYDROGENASE 2023-11-21 03:05:00 Lety [facility] BASIC METABOLIC PANEL (NA, K, CL, CO2, GLUCOSE, BUN, CREATININE, CA) 2023-11-21 03:05:00 Mt Davidson [facility] ETHANOL 2023-11-21 03:05:00 [facility] LACT[facility] DEHYDROGENASE 2023-11-21 03:05:00 Lety [facility] VITAMIN B12, LEVEL 2023-11-21 03:05:00 Kiera Davidson [facility] FOLATE 2023-11-21 03:05:00 [facility] BASIC METABOLIC PANEL (NA, K, CL, CO2, GLUCOSE, BUN, CREATININE, CA) 2023-11-21 03:05:00 Mt Davidson [facility] IRON PANEL 2023-11-21 03:05:00 Mt Davidson [facility] ETHANOL 2023-11-21 03:05:00 Mt Davidson [facility] PROTHROMBIN TIME / INR 2023-11-21 03:05:00 Mt Davidson [facility] ACTIVATED PARTIAL THRMPLAS JESUS MANUEL 2023-11-21 03:05:00 Mt Davidson [facility] URINE CULTURE 2023-11-21 02:54:00 [facility] URINE CULTURE 2023-11-21 02:54:00 Lety cristy [facility] POCT GLUCOSE (AUTOMATED) 2023-11-21 01:29:00 Stefanie Johnson [facility] POCT GLUCOSE (AUTOMATED) 2023-11-21 01:29:00 Stefaine Johnson [facility] POCT GLUCOSE (AUTOMATED) 2023-11-20 23:13:00 Joleen Chinchilla [facility] POCT GLUCOSE (AUTOMATED) 2023-11-20 23:13:00 Joleen Chinchilla [facility] INFLUENZA A/B RSV COVID NAAT 2023-11-20 22:31:00 Pablo Chinchilla [facility] LAB ONLY COVID INTERPRETATION 2023-11-20 22:31:00 Pablo Chinchilla [facility] INFLUENZA A/B RSV COVID NAAT 2023-11-20 22:31:00 Pablo Chinchilla [facility] LAB ONLY COVID INTERPRETATION 2023-11-20 22:31:00 Pablo Chinchilla [facility] POCT GLUCOSE(AGE >30DAYS) 2023-11-20 21:25:00 Pablo Chinchilla [facility] POCT GLUCOSE(AGE >30DAYS) 2023-11-20 21:25:00 Pablo Chinchilla [facility] POCT GLUCOSE (AUTOMATED) 2023-11-20 21:21:00 Joleen Chinchilla [facility] POCT GLUCOSE (AUTOMATED) 2023-11-20 21:21:00 Joleen Chinchilla [facility] URINALYSIS 2023-11-20 21:14:00 Pablo Chinchilla [facility] URINE DRUG (IMMUNOASSAY) - COMPREHENSIVE DRUG SCREEN 2023-11-20 21:14:00 Mt Davidson [facility] URINE DRUG (IMMUNOASSAY) - COMPREHENSIVE DRUG SCREEN 2023-11-20 21:14:00 Mt Davidson [facility] URINALYSIS 2023-11-20 21:14:00 Pablo Chinchilla [facility] CT ABDOMEN PELVIS WO CONTRAST 2023-11-20 19:45:00 Pablo Chinchilla [facility] CT ABDOMEN PELVIS WO CONTRAST 2023-11-20 19:45:00 Pablo Chinchilla [facility] COMP. METABOLIC PANEL ([id number]) 2023-11-20 18:25:00 Pablo Chinchilla [facility] TROPONIN I 2023-11-20 18:25:00 Pablo Chinchilla [facility] LIPASE 2023-11-20 18:25:00 Pablo Chinchilla [facility] MAGNESIUM 2023-11-20 18:25:00 Pablo Chinchilla [facility] PHOSPHORUS 2023-11-20 18:25:00 Mt Davidson [facility] FERRITIN SERUM 2023-11-20 18:25:00 John Davidson [facility] PHOSPHORUS 2023-11-20 18:25:00 Mt Davidson [facility] LIPASE 2023-11-20 18:25:00 Pablo Chinchilla [facility] MAGNESIUM 2023-11-20 18:25:00 Pablo Chinchilla [facility] FERRITIN SERUM 2023-11-20 18:25:00 John Davidson [facility] TROPONIN I 2023-11-20 18:25:00 Pablo Chinchilla [facility] COMP. METABOLIC PANEL ([id number]) 2023-11-20 18:25:00 Pablo Chinchilla [facility] LACTIC ACID WHOLE BLOOD 2023-11-20 17:16:00 Kerry Chinchilla [facility] LACTIC ACID WHOLE BLOOD 2023-11-20 17:16:00 Kerry Chinchilla [facility] CBC WITH DIFF 2023-11-20 17:15:00 Pablo Chinchilla [facility] RETICULOCYTES AUTOMATED 2023-11-20 17:15:00 Mt Davidson [facility] CBC WITH DIFF 2023-11-20 17:15:00 Pablo Chinchilla [facility] RETICULOCYTES AUTOMATED 2023-11-20 17:15:00 Mt Davidson [facility] HB ECG ROUTINE & RHYTHM STRIP 2023-11-20 16:55:53 Pablo Chinchilla [facility] HB ECG ROUTINE & RHYTHM STRIP 2023-11-20 16:55:53 Pablo Chinchilla [facility] Encounters Start Date/Time End Date/Time Encounter Type Admission Type Attending [facility] Care Facility Care Department Encounter ID Source 2024-01-17 00:00:00 2024-02-06 13:38:21 Telephone Service/Gen surg, Surgery C Service/Gen surg, Surgery C [facility] 1..114 350.1.13.10 4.2.7.2.686 [id number] [facility] 2024-01-16 00:00:00 2024-01-16 15:39:30 Transition of Care Cinthya Andrade Laura K [facility] [address] [facility] 1.20.114 350.1.13.10 4.2.7.2.686 [id number] [facility] 2024-01-06 18:34:00 2024-01-14 12:00:00 Hospital Encounter Jr Saravia Francis Erickson, Michael [facility] ([facility]) 1.2840.114 350.1.13.10 4.2.7.2.686 [id number] [facility] 2024-01-01 00:00:00 2024-01-01 15:07:16 Transition of Care Cinthya Andrade Laura K SHEARN [facility] [place] 1.2.840.114 350.1.13.10 4.2.7.2.686 [id number] [facility] 2023-12-03 02:17:00 2023-12-29 17:30:00 Hospital Encounter Jr Saravia Joshua [facility] ([facility]) 1.2.840.114 350.1.13.10 4.2.7.2.686 [id number] [id number] [facility] 2023-12-03 19:47:00 2023-12-04 02:11:00 Anesthesia Event Kentrell Núñez Edgar 1.2.840.1 48835.1.1 3.104.2.7 .3.332098 .8 [id number] [facility] 2023-12-03 19:25:00 2023-12-03 22:35:00 Surgery Taylor Segundo [facility] 1.2.840.114 350.1.13.10 4.2.7.2.686 [id number] [facility] 2023-12-03 13:33:01 2023-12-03 13:33:01 Anesthesia Event Lopez Russ 1.2.840.1 81117.1.1 3.104.2.7 .3.360198 .8 [id number] [facility] 2023-12-03 00:00:00 2023-12-03 00:00:00 Travel 1.2.840.1 06380.1.1 3.104.2.7 .3.133453 .8 1.2.840.114 350.1.13.10 4.2.7.3.698 [id number] [facility] 2023-11-28 00:00:00 2023-11-28 10:13:02 Telephone Ivan Rogersony 1.2.840.1 21735.1.1 3.104.2.7 .3.408582 .8 [id number] [facility] 2023-11-24 00:00:00 2023-11-24 11:30:21 Transition of Care Daisy Nelson 1.2.840.1 [id number] 3.104.2.7 .3.284038 .8 [id number] [facility] 2023-11-20 11:14:00 2023-11-23 19:45:00 Inpatient ALEX MEDRANO [facility] [id number] [facility] 2023-11-20 11:14:00 2023-11-23 19:45:00 Hospital Encounter Pablo Chinchilla, Alex Adam 1.2.840.1 32478.1.1 3.104.2.7 .3.661525 .8 [id number] [facility] 2023-11-20 00:00:00 2023-11-20 00:00:00 Travel 1.2.840.1 63279.1.1 3.104.2.7 .3.667714 .8 1.2.840.114 350.1.13.10 4.2.7.3.698 [id number] [facility] Results Test Description Test Time Test Comments Results Result Co mments Source [facility]24-[facility]13 09:05:35* Test Item Value Reference Range Interpretation Comme nts PHOSPHORUS (test code = 4623850771) 3.6 mg/dL 2.5-5.0 Lab Interpretation (test cod e = 63023-5) Normal [facility] (NA, K, CL, CO2, GLUCOSE, BUN, CREATININE, CA)2024-01-07 09:05:34* Test Item Value Reference Range Interpretation Comme nts NA (test code = 1115537883) 133 mmol/L 135-145 L K (test code = 0879097651) 4.2 mmol/L 3.5-5.0 CL (test code = 6927797314) 107 mmol/L 98-108 CO2 TOTAL (test code = 9160442474) 22 mmol/L 23-31 L AGAP (test code = 1417293822) 4 2-16 BUN (test code = 0403408511) 22 mg/dL 7-23 GLUCOSE (test code = 4697412978) 82 mg/dL 70-110 CREATININE (test code = 2160-0) 0.59 mg/dL 0.50-1.04 CALCIUM (test code = 7344531089) 8.7 mg/dL 8.6-10.6 eGFR (test code = 13270-0) 94.1 mL/min/1.73m2 CKD-EPI eGFR (2020). Assuming creatinine has been stable day-to-day for at least three months, the eGFR indicates Category G1 (>= 90 mL/min/1.73 m2) Lab Interpretation (test code = 22656-2) Abnormal [facility]24-[facility]-13 09:05:34* Test Item Value Reference Range Interpretation Comme nts MAGNESIUM (test code = 2591084775) 1.5 mg/dL 1.7-2.4 L Lab Interpretation (test cod e = 82835-2) Abnormal [facility] with Gvfc6527-59-07 02:40:27RTI1801/06/2024 9:40 PM [facility] XCQULXLRNQQ04/12/2024 9:40 PM [facility] OVPVYOXWMJD26/12/2024 9:40 PM [facility] OPXQKAZHTIT08/12/2024 9:40 PM [facility] GTDLLDMSBEB57/12/2024 9:40 PM [facility] OUQTPIRQXHS36/12/2024 9:40 PM [facility] ZBEPUSQKIUPT34/12/2024 9:40 PM [facility] SERVICESRDW-SD01/06/2024 9:40 PM [facility] SERVICESRDW-CV10/02/2024 9:40 PM [facility] OEXDXXQMHGX94 9:40 PM [facility] XLROPAPAXRK05 9:40 PM [facility] SERVICESNRBC/100 WBC01/06/2024 9:40 PM [facility] SERVICESNRBC x10^310 9:40 PM [facility] SERVICESGRAN MAT (NEUT) %01/06/2024 9:40 PM [facility] SERVICESIMM GRAN %01/06/2024 9:40 PM [facility] SERVICESLYMPH %01/06/2024 9:40 PM [facility] SERVICESMONO %01/06/2024 9:40 PM [facility] SERVICESEOS %49:40 PM [facility] SERVICESBASO %01/06/2024 9:40 PM [facility] SERVICESGRAN MAT x10^3(ANC)01/06/2024 9:40 PM [facility] SERVICESIMM GRAN x10^ 9:40 PM CDT[facility] LAB[facility] SERVICESLYMPH x10^ 9:40 PM [facility] SERVICESMONO x10^ 9:40 PM CDT[facility] SERVICESEOS x10^ 9:40 PM CDT[facility] SERVICESBASO x10^ 9:40 PM CDTUT[facility] SERVICESUnSurgery Specialty Hospitals of AmericaPhosphorus 2024-01-07 02:26:31* Test Item Value Reference Range Interpretation Comme nts PHOSPHORUS (test code = 1613649114) 3.7 mg/dL 2.5-5.0 Lab Interpretation (test cod e = 75117-6) Normal [facility]2024-[facility]-13 02:26:31* Test Item Value Reference Range Interpretation Comme nts MAGNESIUM (test code = 7142279624) 1.5 mg/dL 1.7-2.4 L Lab Interpretation (test cod e = 85832-9) Abnormal [facility] Met[facility] (NA, K, CL, CO2, GLUCOSE, BUN, CREATININE, CA)2024-01-07 02:26:31* Test Item Value Reference Range Interpretation Comme nts NA (test code = 6142638622) 132 mmol/L 135-145 L K (test code = 7503478081) 3.9 mmol/L 3.5-5.0 CL (test code = 5045413420) 107 mmol/L 98-108 CO2 TOTAL (test code = 8684530374) 21 mmol/L 23-31 L AGAP (test code = 9922829362) 4 2-16 BUN (test code = 4357485631) 24 mg/dL 7-23 H GLUCOSE (test code = 5723806116) 89 mg/dL 70-110 CREATININE (test code = 2160-0) 0.68 mg/dL 0.50-1.04 CALCIUM (test code = 6785824825) 8.9 mg/dL 8.6-10.6 eGFR (test code = 59156-3) 91.0 mL/min/1.73m2 CKD-EPI eGFR (2020). Assuming creatinine has been stable day-to-day for at least three months, the eGFR indicates Category G1 (>= 90 mL/min/1.73 m2) Lab Interpretation (test code = 08443-0) Abnormal [facility] PEL[facility] W [id number] 23:22:18EXAM: CT ABDOMEN PELVIS W CONTRAST HISTORY: 73 years-old Female with Abdominal abscess/infection suspected .PMH afib not on medication, BMI 57, severe constipation c/b hollow viscusperforation s/p exlap on 12/03/23 with fecal disimpaction, closure of rectalperforation, Heidi's procedure (sigmoidectomy with end sigmoidcolostomy). Ex lap significant for feculent peritonitis. TECHNIQUE: Contiguousaxial imaging from the level of the lung basesthrough the proximal thighs was performed with intravenous contrast.Coronal and sagittal reconstructions were obtained. COMPARISON: CT abdomen and pelvisdated back to 11/20/2023 FINDINGS: LOWER THORAX: Unchanged small left and trace right pleural effusions withassociated atelectatic changes, overlying aspiration cannot be excluded.Coronary artery and mitral valve calcifications. Mild cardiomegaly. LIVER: Normal size liver with unremarkable contours.No hepatic masses. GALLBLADDER AND BILIARY TREE: The [...] is persistent rectal wall thickening and perirectalfat stranding.There is interval decrease in size of the fluid and aircollection anterior to the rectum without definitive organized wall(301:89). The entirety of this fluid collection is difficult to obtain dueto significant photon starvation artifacts. Mild improvement in thesurrounding fat stranding and edema.Almost complete resolution of thepreviously seen intraperitoneal free [...] to theupper pelvis is seen. Dependent subcutaneous edema.[facility] (for use with [facility] Infusion)2023-12-15 21:03:45* Test Item Value Reference Range Interpretation Comme [facility] APTT Patient (test code = 3173-2) 24 26-36 L Lab Interpretation (test cod e = 30950-4) Abnormal [facility] (for use with Heparin Infusion)2023-12-14 03:40:13* Test Item Value Reference Range Interpretation Comme [facility] APTT Patient (test code = 3173-2) 40 26-36 H Lab Interpretation (test cod e = 80434-9) Abnormal [facility] (for use with Heparin Infusion)2023-12-12 20:11:22* Test Item Value Reference Range Interpretation Comme [facility] APTT Patient (test code = 3173-2) 55 26-36 H Lab Interpretation (test cod e = 92201-5) Abnormal [facility]+COOX+NA+K+GLU+CA2+2023-12-12 02:38:42* Test Item Value Reference Range Interpretation Comme nts PH (test code = 2) 7.25 7.35-7.45 L PCO2 (test code = 5780657206) 39 35-45 PO2 (test code = 7316500064) 404 80-100 H HCO3 (test code = 2346289308) 17 22-26 L BE (test code = 9381234927) -9.8 -3.0-3.0 L THB (test code = 9679018763) 11.7 g/dL 12.0-16.0 L %O2HB (test code = 4387205823) 98.2 % 94.0-99.0 %COHB ART (test code = 4782288646) 1.4 % 0.0-1.5 %METHB ART (test code = 2100346371) 0.3 % 0.4-1.5 L VOL%O2 ART (test code = 2474363808) 17.2 % 15.0-23.0 QUES NA (test code = 5163228195) 133 mmol/L 135-145 L K+ (test code = 4790301485) 5.0 mmol/L 3.5-5.0 AC CA IONZ (test code = 8883667770) 4.70 mg/dL 4.50-5.30 GLUCOSE (test code = 5814099237) 125 mg/dL 70-110 H Lab Interpretation (test cod e = 79147-6) Abnormal [facility]+COOX+NA+K+GLU+CA2+2023-12-12 02:38:22* Test Item Value Reference Range Interpretation Comme nts PH (test code = 2) 7.29 7.35-7.45 L PCO2 (test code = 8434713180) 41 35-45 PO2 (test code = 5684950347) 342 80-100 H HCO3 (test code = 8429016210) 19 22-26 L BE (test code = 3906929593) -7.1 -3.0-3.0 L THB (test code = 0088080079) 11.3 g/dL 12.0-16.0 L %O2HB (test code = 3219534415) 98.7 % 94.0-99.0 %COHB ART (test code = 6280153960) 1.0 % 0.0-1.5 %METHB ART (test code = 9371567972) 0.3 % 0.4-1.5 L VOL%O2 ART (test code = 2604870362) 16.6 % 15.0-23.0 QUES NA (test code = 5172692019) 135 mmol/L 135-145 K+ (test code = 2378109248) 4.9 mmol/L 3.5-5.0 AC CA IONZ (test code = 4965540505) 4.70 mg/dL 4.50-5.30 GLUCOSE (test code = 5530903519) 130 mg/dL 70-110 H Lab Interpretation (test cod e = 85300-0) [facility]GLU+CA2+2023-12-12 02:37:06* Test Item Value Reference Range Interpretation Comme nts PH (test code = 2) 7.35 7.35-7.45 PCO2 (test code = 0419823284) 37 35-45 PO2 (test code = 9155038263) 461 80-100 H HCO3 (test code = 8217600773) 20 22-26 L BE (test code = 8003142825) -5.0 -3.0-3.0 L THB (test code = 1404610830) 8.1 g/dL 12.0-16.0 LL %O2HB (test code = 3477313786) 98.2 % 94.0-99.0 %COHB ART (test code = 8570802224) 1.2 % 0.0-1.5 %METHB ART (test code = 7660401040) 0.3 % 0.4-1.5 L VOL%O2 ART (test code = 1691562098) 12.5 % 15.0-23.0 L QUES NA (test code = 6220676053) 133 mmol/L 135-145 L K+ (test code = 7254818114) 4.9 mmol/L 3.5-5.0 AC CA IONZ (test code = 6188398514) 4.70 mg/dL 4.50-5.30 GLUCOSE (test code = 9430701350) 119 mg/dL 70-110 H Lab Interpretation (test cod e = 38777-8) [facility] 21:16:12* Test Item Value Reference Range Interpretation Comme [facility] APTT Patient (test code = 3173-2) 38 26-36 H Lab Interpretation (test cod e = 28413-8) Abnormal [facility] RockProthrombin Time / [id number] 21:13:33* Test Item Value Reference Range Interpretation Comme [facility] PROTIME PATIENT (test code = 5964-2) 32.4 10.1-12.6 H INR (test code = 6301-6) 3.0 Normal INR <1.1; Warfarin Therapeutic range 2.0 to 3.0 or 2.5 to 3.5, depending upon the indications. Lab Interpretation (test code = 75188-6) [facility]normal [facility] RockCbc with [id number] 09:14:16* Test Item Value Reference Range Interpretation Comme [facility] WBC (test code = 6690-2) 13.52 4.30-11.10 [...] g/dL 31.6-35.1 L RDW-SD (test code = 49619-5) 59.1 fL 39.0-49.9 H RDW-CV (test code = 788-0) 21.9 % 12.0-15.5 H PLT (test code = 777-3) 367 166-358 H MPV (test code = 16485-1) 9.2 fL 9.5-12.9 L NRBC/100 WBC (test code = 8844705835) 0.5 0.0-10.0 NRBC x10^3 (test code = 2953416568) 0.07 See_Comment [Automated message] The system which generated this result transmitted reference range: 10*3/?L. The reference range was not used to interpret this result as normal/abnormal. GRAN MAT (NEUT) % (test code = 770-8) 79.5 % IMM GRAN % (test code = 6291378862) 5.30 % LYMPH % (test code = 736-9) 10.6 % MONO % (test code = 5905-5) 4.1 % EOS % (test code = 713-8) 0.4 % BASO % (test code = 706-2) 0.1 % GRAN MAT x10^3(ANC) (test code = 6532740549) 10.75 10*3/uL 1.88-7.09 H IMM GRAN x10^3 (test code = 1361418978) 0.72 10*3/uL 0.00-0.06 H LYMPH x10^3 (test code = 731-0) 1.43 10*3/uL 1.32-3.29 MONO x10^3 (test code = 742-7) 0.55 10*3/uL 0.33-0.92 EOS x10^3 (test code = 711-2) 0.05 10*3/uL 0.03-0.39 BASO x10^3 (test code = 704-7) 0.01-0.07 Lab Interpretation (test code = 97412-3) [facility]normal [facility] RockMagnesium2024-09-16 08:56:49* Test Item Value Reference Range Interpretation Comme nts MAGNESIUM (test code = 8018666374) 1.8 mg/dL 1.7-2.4 Lab Interpretation (test cod e = 00468-8) Normal [facility] RockPhosphorus2024-09-16 08:56:49* Test Item Value Reference Range Interpretation Comme nts PHOSPHORUS (test code = 9697651542) 2.4 mg/dL 2.5-5.0 L Lab Interpretation (test cod e = 09806-6) Abnormal [facility] RockBasi Metabolic Panel (NA, K, CL, CO2, GLUCOSE, BUN, CREATININE, CA)2023-12-11 08:56:49* Test Item Value Reference Range Interpretation Comme nts NA (test code = 8346606222) 141 mmol/L 135-145 K (test code = 1127487167) 3.1 mmol/L 3.5-5.0 L CL (test code = 6340181804) 112 mmol/L 98-108 H CO2 TOTAL (test code = 5986394171) 19 mmol/L 23-31 L AGAP (test code = 9128788790) 10 2-16 BUN (test code = 5774821210) 29 mg/dL 7-23 H GLUCOSE (test code = 3140663584) 126 mg/dL 70-110 H CREATININE (test code = 2160-0) 0.72 mg/dL 0.50-1.04 CALCIUM (test code = 3176544869) 8.3 mg/dL 8.6-10.6 L eGFR (test code = 51732-4) 87.3 mL/min/1.73m2 CKD-EPI eGFR (2020). Assuming creatinine has been stable day-to-day for at least three months, the eGFR indicates Category G2 (60 - 89 mL/min/1.73 m2) Lab Interpretation (test code = 56406-5) Abnormal [facility] RockXR CHEST 1 [id number] 04:11:52ORDERING PHYSICIAN: TONEY ELKINS HISTORY: respiratory monitoring TECHNIQUE: AP view of the chest COMPARISON: XR CHEST 1 VW on DOS: 12/09/23 FINDINGS: Frontal view of the chest is obtained in a rotated position. Worsening basilar predominant pulmonary opacities and suspected small bilateral pleuraleffusions. No pneumothorax. ? ? ?Stable prominence of the cardiac silhouette. Aortic atherosclerosis. The osseous structures appear unchanged.[facility] with Ethp2066-41-32 09:00:36* Test Item Value Reference Range Interpretation [...] 32.3 g/dL 31.6-35.1 RDW-SD (test code = 53732-7) 60.0 fL 39.0-49.9 H RDW-CV (test code = 788-0) 22.1 % 12.0-15.5 H PLT (test code = 777-3) 398 166-358 H MPV (test code = 60899-9) 9.0 fL 9.5-12.9 L NRBC/100 WBC (test code = 0966245449) 0.5 0.0-10.0 NRBC x10^3 (test code = 2851367592) 0.07 See_Comment [Automated message] The system which generated this result transmitted reference range: 10*3/?L. The reference range was not used to interpret this result as normal/abnormal. GRAN MAT (NEUT) % (test code = 770-8) 79.6 % IMM GRAN % (test code = 1982673854) 5.90 % LYMPH % (test code = 736-9) 10.4 % MONO % (test code = 5905-5) 3.9 % EOS % (test code = 713-8) 0.1 % BASO % (test code = 706-2) 0.1 % GRAN MAT x10^3(ANC) (test code = 2631910707) 11.69 10*3/uL 1.88-7.09 H IMM GRAN x10^3 (test code = 5074030816) 0.87 10*3/uL 0.00-0.06 H LYMPH x10^3 (test code = 731-0) 1.53 10*3/uL 1.32-3.29 MONO x10^3 (test code = 742-7) 0.58 10*3/uL 0.33-0.92 EOS x10^3 (test code = 711-2) 0.03-0.39 L BASO x10^3 (test code = 704-7) 0.01-0.07 TARGET CELLS (test code = 17880-6) 2+ See_Comment A [Automated message] The system which generated this result transmitted reference range: (none). The reference range was not used to interpret this result as normal/abnormal. Lab Interpretation (test code = 14992-8) Abnormal [facility] RockMagnesium2024-09-15 08:41:44* Test Item Value Reference Range Interpretation Comme nts MAGNESIUM (test code = 9511170198) 2.0 mg/dL 1.7-2.4 Lab Interpretation (test cod e = 50460-4) Normal [facility] RockPhosphorus2024-09-15 08:41:44* Test Item Value Reference Range Interpretation Comme nts PHOSPHORUS (test code = 8264707821) 3.5 mg/dL 2.5-5.0 Lab Interpretation (test cod e = 84586-8) Normal [facility] RockBasi Metabolic Panel (NA, K, CL, CO2, GLUCOSE, BUN, CREATININE, CA)2023-12-10 08:41:44* Test Item Value Reference Range Interpretation Comme nts NA (test code = 6737067358) 139 mmol/L 135-145 K (test code = 9450734341) 3.3 mmol/L 3.5-5.0 L CL (test code = 5513992169) 112 mmol/L 98-108 H CO2 TOTAL (test code = 9353954046) 19 mmol/L 23-31 L AGAP (test code = 0760455596) 8 2-16 BUN (test code = 3330693936) 38 mg/dL 7-23 H GLUCOSE (test code = 0740213661) 135 mg/dL 70-110 H CREATININE (test code = 2160-0) 1.02 mg/dL 0.50-1.04 CALCIUM (test code = 6252462445) 8.3 mg/dL 8.6-10.6 L eGFR (test code = 02092-9) 57.5 mL/min/1.73m2 CKD-EPI eGFR (2020). Assuming creatinine has been stable day-to-day for at least three months, the eGFR indicates Category G3a (45 - 59 mL/min/1.73 m2) Lab Interpretation (test code = 96472-2) Abnormal [facility] RockXR [id number] 22:37:49EXAM: XR KUB, XR CHEST 1 VW [...] lbowel obstruction. Paucity of gas in the rectum.[facility] RockXR CHEST 1 [id number] 22:37:49EXAM: XR KUB, XR CHEST 1 VW [...] smallbowel obstruction. Paucity of gas in the rectum.[facility] RockCbc with [id number] 10:34:43* Test Item Value Reference Range Interpretation [...] 32.3 g/dL 31.6-35.1 RDW-SD (test code = 38280-2) 59.7 fL 39.0-49.9 H RDW-CV (test code = 788-0) 22.6 % 12.0-15.5 H PLT (test code = 777-3) 478 166-358 H MPV (test code = 17632-2) 9.3 fL 9.5-12.9 L NRBC/100 WBC (test code = 1462794503) 0.4 0.0-10.0 NRBC x10^3 (test code = 0165443935) 0.09 See_Comment [Automated message] The system which generated this result transmitted reference range: 10*3/?L. The reference range was not used to interpret this result as normal/abnormal. GRAN MAT (NEUT) % (test code = 770-8) 81.2 % IMM GRAN % (test code = 9620369013) 6.60 % LYMPH % (test code = 736-9) 8.7 % MONO % (test code = 5905-5) 3.1 % EOS % (test code = 713-8) 0.1 % BASO % (test code = 706-2) 0.3 % GRAN MAT x10^3(ANC) (test code = 0709941297) 16.97 10*3/uL 1.88-7.09 H IMM GRAN x10^3 (test code = 5460822582) 1.39 10*3/uL 0.00-0.06 H LYMPH x10^3 (test [...] as normal/abnormal. TARGET CELLS (test code = 08676-8) 2+ See_Comment A [Automated message] The system which generated this result transmitted reference range: (none). The reference range was not used to interpret this result as normal/abnormal. Lab Interpretation (test code = 04288-6) [facility]* Test Item Value Reference Range Interpretation Comme nts MAGNESIUM (test code = 5834163773) 1.9 mg/dL 1.7-2.4 Lab Interpretation (test cod e = 16086-3) Normal [facility] RockPhosphorus2024-09-14 10:08:11* Test Item Value Reference Range Interpretation Comme nts PHOSPHORUS (test code = 1497377594) 4.4 mg/dL 2.5-5.0 Lab Interpretation (test cod e = 65474-9) Normal [facility] RockBasi Metabolic Panel (NA, K, CL, CO2, GLUCOSE, BUN, CREATININE, CA)2023-12-09 10:08:11* Test Item Value Reference Range Interpretation Comme nts NA (test code = 6218725066) 139 mmol/L 135-145 K (test code = 9546505017) 3.3 mmol/L 3.5-5.0 L CL (test code = 3057362106) 108 mmol/L 98-108 CO2 TOTAL (test code = 6023375576) 17 mmol/L 23-31 L AGAP (test code = 9315826153) 14 2-16 BUN (test code = 3369774834) 38 mg/dL 7-23 H GLUCOSE (test code = 5549846689) 103 mg/dL 70-110 CREATININE (test code = 2160-0) 1.30 mg/dL 0.50-1.04 H CALCIUM (test code = 9443087446) 8.3 mg/dL 8.6-10.6 L eGFR (test code = 93192-1) 43.0 mL/min/1.73m2 CKD-EPI eGFR (2020). Assuming creatinine has been stable day-to-day for at least three months, the eGFR indicates Category G3b (30 - 44 mL/min/1.73 m2) Lab Interpretation (test code = 05310-8) Abnormal [facility] RockCT ABDOMEN PELVIS W [id number] 23:07:14CT ABDOMEN PELVIS W CONTRAST 12/08/2023 10:55 [...] wallsurgical wound, partially visualized. Dependent subcutaneous edema isnoted.[facility] RockXR CHEST 1 [id number] 19:22:20Study: Single view chest. Ordering Physician: DONA ELKINS Date: 12/08/2023 4:00 AM History:respiratory monitoring COMPARISON: 12/07/2023 Findings: Single frontal view chest demonstrates mild cardiomegaly. Patchyleft basilar atelectasis is identified. The lungs are otherwise clearwithout infiltrate, pleural effusion or pneumothorax. The right internaljugular venous catheter terminates over the distal superior vena cava. [facility] Round RockCbc with [id number] 09:56:35* Test Item Value Reference Range Interpretation [...] 31.6 g/dL 31.6-35.1 RDW-SD (test code = 63979-8) 59.4 fL 39.0-49.9 H RDW-CV (test code = 788-0) 22.2 % 12.0-15.5 H PLT (test code = 777-3) 444 166-358 H MPV (test code = 57066-9) 8.9 fL 9.5-12.9 L NRBC/100 WBC (test code = 4218398572) 0.5 0.0-10.0 NRBC x10^3 (test code = 4820692022) 0.08 See_Comment [Automated message] The system which generated this result transmitted reference range: 10*3/?L. The reference range was not used to interpret this result as normal/abnormal. GRAN MAT (NEUT) % (test code = 770-8) 79.7 % IMM GRAN % (test code = 0768769391) 5.90 % LYMPH % (test code = 736-9) 9.8 % MONO % (test code = 5905-5) 4.2 % EOS % (test code = 713-8) 0.2 % BASO % (test code = 706-2) 0.2 % GRAN MAT x10^3(ANC) (test code = 5451684315) 13.21 10*3/uL 1.88-7.09 H IMM GRAN x10^3 (test code = 7053604883) 0.98 10*3/uL 0.00-0.06 H LYMPH x10^3 (test code = 731-0) 1.63 10*3/uL 1.32-3.29 MONO x10^3 (test code = 742-7) 0.69 10*3/uL 0.33-0.92 EOS x10^3 (test code = 711-2) 0.03 10*3/uL 0.03-0.39 BASO x10^3 (test code = 704-7) 0.03 10*3/uL 0.01-0.07 Lab Interpretation (test code = 24430-8) Abnormal [facility] RockMagnesium2024-09-13 09:36:27* Test Item Value Reference Range Interpretation Comme nts MAGNESIUM (test code = 9514232600) 2.0 mg/dL 1.7-2.4 Lab Interpretation (test cod e = 73940-1) Normal [facility] RockPhosphorus2024-09-13 09:36:27* Test Item Value Reference Range Interpretation Comme nts PHOSPHORUS (test code = 1848159191) 4.6 mg/dL 2.5-5.0 Lab Interpretation (test cod e = 71927-7) Normal [facility] RockBasic Metabolic Panel (NA, K, CL, CO2, GLUCOSE, BUN, CREATININE, CA)2023-12-08 09:36:27* Test Item Value Reference Range Interpretation Comme nts NA (test code = 8757186021) 138 mmol/L 135-145 K (test code = 9733089799) 3.2 mmol/L 3.5-5.0 L CL (test code = 2303827307) 108 mmol/L 98-108 CO2 TOTAL (test code = 9565113607) 19 mmol/L 23-31 L AGAP (test code = 0700953711) 11 2-16 BUN (test code = 9501873115) 38 mg/dL 7-23 H GLUCOSE (test code = 1815651774) 92 mg/dL 70-110 CREATININE (test code = 2160-0) 1.41 mg/dL 0.50-1.04 H CALCIUM (test code = 6839607862) 7.9 mg/dL 8.6-10.6 L eGFR (test code = 92320-6) 39.0 mL/min/1.73m2 CKD-EPI eGFR (2020). Assuming creatinine has been stable day-to-day for at least three months, the eGFR indicates Category G3b (30 - 44 mL/min/1.73 m2) Lab Interpretation (test code = 71096-7) Abnormal [facility] RockXR [facility]ST 1 [id number] 14:51:27Study: Single view chest. Ordering Physician: DONA ELKINS Date: 12/07/2023 4:00 AM History:respiratory monitoring COMPARISON: 12/06/2023 Findings: Single frontal view chest demonstrates a normal heart size.Persistent left basilar airspace opacity is identified which may resultfrom atelectasis or pneumonia. Small pleural effusions persist. Nopneumothorax is defined. Endotracheal tube terminates 5.1 cm above thecarina. The right internal jugular venous catheter terminates over thedistal superiorvena cava.[facility] Cbc with [id number] 09:34:07* Test Item Value Reference Range Interpretation [...] 32.3 g/dL 31.6-35.1 RDW-SD (test code = 60651-6) 58.8 fL 39.0-49.9 H RDW-CV (test code = 788-0) 21.4 % 12.0-15.5 H PLT (test code = 777-3) 409 166-358 H MPV (test code = 05230-5) 9.2 fL 9.5-12.9 L NRBC/100 WBC (test code = 0361566291) 0.4 0.0-10.0 NRBC x10^3 (test code = 9230232269) 0.06 See_Comment [Automated message] The system which generated this result transmitted reference range: 10*3/?L. The reference range was not used to interpret this result as normal/abnormal. GRAN MAT (NEUT) % (test code = 770-8) 77.3 % IMM GRAN % (test code = 4279363766) 6.80 % LYMPH % (test code = 736-9) 11.4 % MONO % (test code = 5905-5) 4.3 % EOS % (test code = 713-8) 0.1 % BASO % (test code = 706-2) 0.1 % GRAN MAT x10^3(ANC) (test code = 2273276382) 12.30 10*3/uL 1.88-7.09 H IMM GRAN x10^3 (test code = 7049154530) 1.09 10*3/uL 0.00-0.06 H LYMPH x10^3 (test code = 731-0) 1.81 10*3/uL 1.32-3.29 MONO x10^3 (test code = 742-7) 0.69 10*3/uL 0.33-0.92 EOS x10^3 (test code = 711-2) 0.03-0.39 L BASO x10^3 (test code = 704-7) 0.01-0.07 Lab Interpretation (test code = 31090-8) Abnormal [facility] Metabolic Panel (NA, K, CL, CO2, GLUCOSE, BUN, CREATININE, CA)2023-12-07 09:19:04* Test Item Value Reference Range Interpretation Comme nts NA (test code = 4143523047) 136 mmol/L 135-145 K (test code = 9379322037) 3.3 mmol/L 3.5-5.0 L CL (test code = 9725002615) 106 mmol/L 98-108 CO2 TOTAL (test code = 2063392715) 18 mmol/L 23-31 L AGAP (test code = 6788643740) 12 2-16 BUN (test code = 4160828253) 41 mg/dL 7-23 H GLUCOSE (test code = 9733533456) 102 mg/dL 70-110 CREATININE (test code = 2160-0) 1.96 mg/dL 0.50-1.04 H CALCIUM (test code = 1540943380) 7.9 mg/dL 8.6-10.6 L eGFR (test code = 80166-1) 26.3 mL/min/1.73m2 CKD-EPI eGFR (2020). Assuming creatinine has been stable day-to-day for at least three months, the eGFR indicates Category G4 (15 - 29 mL/min/1.73 m2) Lab Interpretation (test code = 69454-8) Abnormal [facility] RockMagnesium2024-09-12 09:19:04* Test Item Value Reference Range Interpretation Comme nts MAGNESIUM (test code = 6031506856) 2.0 mg/dL 1.7-2.4 Lab Interpretation (test cod e = 96072-4) Normal [facility] RockPhosphorus2024-09-12 09:19:04* Test Item Value Reference Range Interpretation Comme nts PHOSPHORUS (test code = 5283339140) 4.7 mg/dL 2.5-5.0 Lab Interpretation (test cod e = 90406-6) Normal [facility] RockAC Panel 20 + Lactic [id number] 08:32:46* Test Item Value Reference Range Interpretation Comme nts PH (test code = 2) 7.41 7.35-7.45 PCO2 (test code = 7523068984) 29 35-45 L PO2 (test code = 1378064101) 305 80-100 H HCO3 (test code = 0419134323) 18 22-26 L BE (test code = 1441529147) -5.8 -3.0-3.0 L THB (test code = 4826341654) 9.3 g/dL 12.0-16.0 L %O2HB (test code = 9686937166) 98.5 % 94.0-99.0 %COHB ART (test code = 9528770955) 0.9 % 0.0-1.5 %METHB ART (test code = 3197053809) 0.3 % 0.4-1.5 L VOL%O2 ART (test code = 4501990851) 13.7 % 15.0-23.0 L NA (test code = 2248445220) 138 mmol/L 135-145 K+ (test code = 3688349037) 3.4 mmol/L 3.5-5.0 L AC CA IONZ (test code = 5176496010) 4.40 mg/dL 4.50-5.30 L GLUCOSE (test code = 9350925269) 97 mg/dL 70-110 LACTIC ACID (test code = 5762602330) 1.85 mmol/L 0.50-2.20 Lab Interpretation (test cod e = 97328-5) Abnormal [facility] RockSurgical Pathology [id number] 22:05:08* Test Item Value Reference Range Interpretation Comme nts Case Report (test code = 1722684559) Surgical Pathology ?Case: [id number] ? Authorizing Provider: ?Taylor Segundo MD ?Collected: ? 12/04/2023 0123 ?Ordering Location: ? ? [facility] OR ? Received: ?12/04/2023 0830 ? Department ? Pathologist: ? Sallie Piper MD ? Specimen: ? ?LARGE INTESTINE, SIGMOID COLON, sigmoid colon ? Final Diagnosis (test code = 2898532191) s7yrsJEzUFBgn5lzHVUonY FuZzEwMzNcZnRuYmpcdWMx GNgkoaEdPAwcoOqiNAJ9UM RkVA4ebWssbVl0nBpmYHDw egW5dSQbIXdqi4iaJLN3m8 urgpynATLdHSknNq3wyTMx kDhbShPuTRVlYPx5kF25LT LndX1peMNvVGmqveVoAPGu K4JrMY9tPIkbwIHwEVZ2CN ZjYLC1VFlnkuYptpY2DXhg fEMpKbA8P04thBBoDBJ7KB CoMRDggGPeIPEzYUY7BGFa iNKcO4xhISJyLZ1olspyKL hrWSbdGUJnkME5YPGkiSPm U6JwKIKmLTcgDEBydds5Ld TiEq8wyZZfmQoiNDndKKLp XHBsYWluXGZzMjBccGFyIE HxERGAKB6AJKGOVVyNS4wO NMGRCMwPHB2IYDnzJcISMY DJXU0QDwmeZTChQ8LkSQJr D6JzWBFaYL4eNNg+LSBESV TIPyUWY0APT4OHXyYMTFCG IEFDVVRFIERJVkVSVElDVU cFUCjPLVFEHMTJM7ALVQEJ CGNNT9iBTRBhtZMjRZDjke x+ZD9tOERUK0KCUKjOPhEX UVOLRY0DHBYBVDMNLBZzxK SxSJVaFJdkdYAmdWE4BFxz YXJccGFyXGZzMjIgTWFocm VlbiBIdXNzYWluLCBNQkJT YDD6MeAqRfHsAoCgWXT1Df TlRK5mzSIsZLZvKbSfrPBc eLxhgfAgYDovc6ExG5IhXo AwMFxhbnNpXGRlZmxhbmcx LAVkPZO9bwMdZVNcVJeyOR ZuNVvbZm9wpRKakThhEhGn JVQwb7ffeeUQRGqiDaQkS6 98AEFvQDdks4fyd5EyAWEo xAUta6R7XNYBezukbDj4c9 jwMaHoAtI1aLWcVGdbL5kd urMnrVTpJ9KerVUwfPb9qV hdM46gg0S0DvoiG4feNIGc AURyT1NbEC3pRHPrEyg7EB Q0OPN4TDOyGJBzF7QwOM3p OPQlqRNtPHg2s0ffxBtlKP UiUWD7m4naLErnhrE0GQ1z gq0yrZi4g9tkmnFjXFUyIM EvfCTMUQZeC8StnEbpWy8w uMk2mIelEtelUWQ8Ovp3UU 7fbe37ekg7fOqfIAMddskm WyH3DEquEJDxmfqaYMh8RU imPKTbjIO8DEYavCXuC1Il ZIRsUE9hjqk6JGC1LLqrWQ KtPmA9LLOjdCKuSIMitCre YDpqg408MEJ0YaYsLV4bA0 Mlv4X5oX3mcJOwNIFryEJo XfCwSUGdon7iwMRxUTpzd7 FoTDP1niT1zRMilJElDRLm UR59Zfelr8WeKhldRBM7EH HjcdXdu3Epk9xiSsMwmcQk G0rqM3CmTLNhFPAgGTJpSx BblcLii8Fuz7XinHJvhKx3 u0vyWGQyNACnpSmth9dfHD B9CZCtI2S4iRGje6msXEau CIYomGQ9wuI1RIAfnCGaJ5 VikF3jGQEbYO9posl5m7ul BXB7BSreKVRkCvS5wfU8EB XjtJFxJYAetFdhADent715 WNW0EoChIMSbq9TgG7SljW drT77euBakB59iSBSebPoq gI1soAxfjY8gDvYkLwKjDR xxbFxwbGFpblxmMVxmczIw RWsgizkzTPYeECvhR2tdOb HxWAGhoGioRUhgt6ZsPBFn XGNmMlxmczIwXHBhciBJIG hijkHwsPYja33aHVjhvGZt HUMbGPzpSKMjlWzie1HsI7 upPT5dK5GidPPhyaCyxqQr DBgdNMHzb4k3bZUdoLjkq2 MmoUPnCS27tcFpZCHnKSL5 HPRdk3xfQF54vrndEdYesY 67wuOfslBsMARmt2kaZ5ey nRZrk8Qfy7OgdwBsHBlij5 BsNS1faNSkrdrouYN9NTRu wYJhmeNsnhI1nHbqDVXjtK 4lwI4mfQtrnO5wSfKkQhEq SSvwEZ4aIPOzT6gboYBxWQ GaJTFdV3hxLoRygY7kaWah NjtgymD9FBBdzm02 Clinical Information (test code = 7406320530) Colon perforation [K63.1] Gross Description (test code = 3839737273) c9iblJChBZOftMHMBVV0EK CrSM1mkGkecSq3zAdiOPFo irU9fNTiUPlxb6cjHOT1e8 klfyVJGunoLFRdLE5zSSaa TMHkYK1bXbNlPGXjSyFlFL BhcGVydzEyMjQwXHBhcGVy uAP6UYErBY8xzeuuUCebMC utGSNbtgL7ODBgkPPrW5Dl HGXjOM5ldqoiGIC3UHRXIq fmWz7glVDnlZgqGkNeAvMr HHRkVBQzJBFiv0ogmcCXqy eiyAx9tS6YNVAfF0VnJC1P n0leBVMduZYyTMH0WNeqm1 ikBLjqNVZ1RTAoWYSaPWJr YG1JWyQlISC2NIYyNKH0Bf C9GSh0KJMVYBKwZWYpSlV6 VRS0WRd2HFMaNM8eFHsjyC PhQXdoWgrzGTvgF264HYct BJLgL3ZfI1PjBFwaDyGwEO nuWCVfWSWzOVbzBZAzC6HI XVTgXCLhRqR9ZFCfPHn8MA b5WV1SXhFzDTIhThL8GPx7 DWPhUVe8TLhvOJ2GPPMjGW H1EtP4ZsGtMYF5JeflDNe0 IDIgXFxzcyAzIFxcZmwgXF ooS49qdROaNIHQOejkfEVu blxmczIwIFNQRUNJTUVOIE OcbLHuU1xbUgMrPafgXYXd DQpccGFyZCANClxwbGFpbl xsdHJjaFxmczIyXGVwaWNO FHY1QB4iUQJEMftqqNJzUN UrVHlGtJRnkX8tlpJBZZaf DOJxY8PyadQbYWDoGZAdGF uuIhNeVYXqb9s0pHR1uISg uIM4gIJzaGrpKJ7kzEUiCT GWIH87oQRwopsaLsIhL96b sPZiU61sa55dQIOmNOYdb9 5ntIF9bfTnPgKeWNTeww8i sQ2wLUEds6MaCJ08VVRpq7 VnbWVudCBvZiBsYXJnZSBi d9ssfWMkJZNgNSFfnBOpxt TzNV1jzPplTvdxWo2dOZOo UCqdTPFjME7ucHWiNGK1rF AoGB2hSKJjQJOegE4cp9Xx kkFoJR5flB0sqUTmAQBhh7 BloJdjZQNwTUJubM5yUNNc XURlMCZxk1AmQFN0skOlK9 UgaXMgcmVtYXJrYWJsZSBm t0OtPJZ9GN3dR7FrQL7iEZ BvSQZxYoTyhZS9rWCrfDUp nMDgCCDpGPu7pHR6nhV2Vk YeO58reL4tM7IeBSAie4Sm ZQkxYP5rtU4yCNK9kJB7YA NvbWVzIHdpdGhpbiAwLjYg Q08to9XjfDnyKHWcr7Ivf5 IkcDEjV9ubMyLAhPFbksEy TZgcgO0uCXGmtb5bTUXdzs Wolgj3cOAtVZEsbRQcJDSH vBHyh8DrN8piVG8cjLJao6 BlbmVkIHRvIHJldmVhbCBh QWPyuTSvcKBsrV2sbfIesM khVVCpo4t4uUKnzs01lsTw GD1eUNJsvDixRXGkZKZoeS miNSTxM0CjOU5erYVltLEz RdKZtOJjuJWtk8XdXLwgSV OmmCRar3LwaVWwUh7sJK85 bHRpcGxlIGRpdmVydGljdW jxGNXsfOWdd5t3gWKwgUke UHUrf7s1cAHjs8etJJLsKA SenHKhLCCzizgtoX5hQBau DJ14K34iDYX4FBmlXV4oLB A1mwHwSHHaNMBgLDUsMUEu cLGkkgB0wGdxh94qe4MzUA hlIHJlbWFpbmluZyBtdWNv h9YhyAYbaYWfJHUtsqflSZ 5kIHVucmVtYXJrYWJsZSBm b0CmkU6lqEPcRPYaGWXiw4 3qNOFcfzAieHIiPy4eGOBq k39mVdEtwAYiEV9JTHOejh ZSQxFmf82dnoMaNJn2PZQv hA8dhDjxFEDfdeBlgH3uum SqsmOmYZLnyk5bwN3zMYMn IGRldGFjaGVkIGZyYWdtZW 35WK6cHQjjcqflKLFxt5Ii PCz2ZtLjF95yxK9vfBRiG2 PcBPY9KUMaZERahERgpqUt aWFtZXRlcikuIFRoZSBzcG RfeD1qtiGbzqCplLZtHZLe oY6pvmO5MQYwTOFqe8ftU5 gpJOWtzfFqvRaxvZm2zY0n NXaiFL51A33wKDW1XTwbIQ 9bTEZ8yuCcAELzTBXtVJSn FvUjrHYichE7mHpjf48ed8 JlYXQeLTWmJX2coK5brjmo gKTca4EuIMhyZPCyad5arP 1yNYWhILZ8dmBwwBHgj7Rv cSSiGn3nSGWccVpkyinymW RaoU8wnuwtSA5fDPGljtDt zjF3wO9ize8xvYPoGE6RSF BsjzKWYsRfyIJhr1MotLQ9 nPHhYOPaB6Xcb56vFHEbNS VwkIOulXX1VGRnnR5rLRTp sQwpOOLlZCm2ZyGcVH1gyD YuHE8JJMOogiNHAwSpM8Jf s86kD83dSVknaUXjZV3EZC ErIQY7PET1PZHlJDPepDPs T0xuZZNhmcLgLYZaKSNxts ZNUuGwHqRXlUIpRV8xwzdc mbaxCN8hRkVtPOkySLOvWF nEVJ2LCvdmLZu8DWJ7uYC9 jCYbJRAviQLlt7EgnQE6jC KzCTDmmjPLWdF1MwZBrofe ng5zpdPkYS27Y58fGGroch DhrtEnBW35LEWsdwOywSAd HJ1LNWouYTt9DROeaSUauV UqXRVsXVwhFL35MC2zbjdp sbHrJEPiBVNeN4VjbLObJB 0KQTEwOiBEZXRhdGNoZWQg FgUbX82rhhSeILCzoeJmaJ kgoPi7uHpaymLjmkFqFW10 QQShyoHfhIVmBL3HHMRlul ANCkhpbGxhcnkgUHJpbmNl VWsAHVeRQ1URHUNDWFEQwG JvZF96RXTyjqTLDrj6rVai FM6jVIkhLZ9xqVuqPZYdAS LES8UsMCZaxpQITjewXZWe WWVntXIJp2NgAARGGgbfpC wnIgRqjHUzApC9USPmdGHw MVI3FC4nmYgbVPEjP1OjB8 GmwnL0TNIrogXWKcesKEGc IA0KfQ== Disclaimer (test code = [id number]) v9asgCPbMEWrc2fjNIPpbI FuZzEwMzNcZnRuYmpcdWMx ELtvsdEuBVjki5KuW5QkXz AwMFxhbnNpXGRlZmxhbmcx PINaOHK1ooFyRVUfEEwlVZ MqKOxjEq6ktKMbfHjfFhGf GGDtp6xadxWVSMcdOeOwS1 24XVVeZHaxc4jln4OcSMIa aYLbx2N9BRYWjddjmOa1uY itN94ks4L1SiztB6kkPLCv IVQmC9GgXL5dLSYaGkx9DU J6IZS6ROCkHZRhO8EdYF8u LEUbqGPvMKy3w6olmSgkFD IkCXK1d3onEXnvzhOkSQ0k dp6zpDl8k8cfruLsKBVhCG RyhEJEVUZaD4XnmXbqKx3g wJm9wCqrNvzpUFM8Tbb2JH 1pzt24sie5iVawEVImgthx BeC4ZTcgKRBtrctjCGr2UC mlMGGfxQP7UYBdxHEnV4Nn VGYmQM7fpww2PCZ3GLnlLC NgTtK1EPYuqRAbFNKxqOke PGiru507IFM3QjIuSL0wD5 Aym5M9vP4rgIKoCXEaoIAu IuRvVGUwpf1xiSTfBVwwb1 ReGUY9gbD5pUAqjLSyUGYf AF05Aujih3SyJzgiy0XcB8 8yxGD2TOrpj6xzQO1yYgL7 cwGxHExqj9zwvS5xEzZ9IO wmYC3fEB4hTDAdfO5atguh XHBnYnJkcmhlYWRccGdicm DnWh5qzZlaMYD6UCbiO0ql vN4dGuU3AKcpN6zjrQ6nOI x0VJwxpDK5LSMpdC4tBE9z txahv6yeYFhpKVoqEFSpqy V3xiR8OAEkrPWlU8JwkA5h IVPeAQ8kvqiwa7tbXDF3IA riWMOzKVR6QfIuIDHzt3Kk viy6EaUza6AnfRVwMNigW0 4is844GYXlqpSeW3sdcPWj ibvjvJRtrzpmUXbutdS2SQ JmitLoe2LqYITcFJM4DAap GBewjYVmNGLviNhdw9saO1 RscGFyXHBsYWluXGYxXGZz MjBcbGFuZzEwMzNcaGljaF kbGDntCzTdXHMgESchJ3uv RmPhJ3SjBQDcSyKzcKMvO1 ggVGhpcyByZXBvcnQgbWF5 AIsoI4s0XFWphrCuoXg4ug EiFwMpVJTiOIM0YInklGFm AYYth1DoprazhJTjAq0uhY HiQSJmtO2aFUAuHILzPUhr YR4nkCa0YRDQqRVwxPJlFh ANHGCtTP37khXeEBTZqfux l1D1WYdvBURvh5LlsZQqL2 egn4YzQOEbk80mDB0pk9X4 t1beDIZ4UU5vr8KbDREszT FboSHoQTRem9Ndhvvwd4Ud BVGnthGwm4HpZULkqwRpjQ XlAYKyflAmzz3seeBmSNKu ZGLqZ5NjwibnmCluqxKwQM Jgqv0pclCiKWI8KAUFWEYg MGKjt8CqlR1ckVXJEPJ1dC Jved0kvzBMhJAkIWHsxi24 LCZbHM2oP9wcGCXvFFRtrs OzeXMks4EeEZMfdTZ5xPBy RK8ZZcQBi53zLZMoRNQHkx TvHDJseNzgjBR0alO6uC5t IChGREEpLlx+IFRoZSBGRE RjMV5dlhSwt2WanlSnbDkg SXEhiFWml4GqmWDzk6EvkM szt1GukFSdvGUvTC0hZQIy clxwYXIgVVRNQiBMYWJvcm R6l8SkUNZtNREzAGM6iVbf abj6CDBilZ0bYIJuV7urri yiVFcuQNTai6IdnO1hmJOP mJHak0RhlEEhbVSMjIYgKD 5ectAyAXcWODlZJXN7tjWl FBIfk7YsYQziR2phF78ksZ uutMs5kBJ4KJJ2nS4kKyb+ IFxwYXJccGFyIEFwcHJvcH SbNRVobQjmraVyA8AvupTo xS1xnHDblkSvBR7aXH7gU8 I2lRZzBPDloiTxx9ioBWnc dmUgYmVlbiByZXZpZXdlZC Ley8ZzXCdaLTY0NOksclEs bmNsdWRpbmcgSCZFLCBTcG XsrWYsFKV7YKhfhlTzzdUb AF4vnK4utYibdX5ooVFbpT H5ellxPUSiKPFjfFpcGILb IU8cdEbpwV3xIeEvCtAdDM hzDH1qDGIxF3aemITaUWMh TIOfG4ksDhCukK1xnMggFX xjZjJcZnMyMFxwYXJccGFy XHBsYWluXGYxXGZzMjBcbG FuZzEwMzNcaGljaFxmMVxk BlYjXZVuDEcpD6ivRyFpD6 FlETPvNjJlxVLzP4qsLZad UXP1CGHaDE1sdGSbLX16iS Tkz1uuOTgbcFtqck1mW42j eCFnYCqbqSoaROYuc83oy2 WhOOHcetYcqb5qJFHofvB3 xH8pSKWobZmwUJRnlFOuBF Uwa7QpVSqhgUFidvKrOJam KKDxBGGmmWUrlkB0hrAodq LqsuUpIHYukRfgXNZyj8Xs KXAsQIzlg3Yyul6kpFHfGU UnjdKOnGfdtJYijX0qV4Ho JCPrTJGhmt9rOZJpsN4hMZ okg5SbqjcyTKThLLJqQMOi lhFswr1xJBToaAYGHV9QEN bncMVsn1MubdYdB4mHEAY8 NUQwNjYwMjgxKSBleGNlcH CsTBAoot11NIIhqY8lhUvf BSOqhF4ziN6tuBnxrB5mVk LdQpUkWOsqYV4rVHEqS5tq pNCoZFKhKCOfQ1lpFiVzyN 9jaFxmMVxjZjJcZnMyMFxw YXJ9fQ== Embedded Images (test code = 6960792460) [facility] 1 [id number] 20:30:39EXAM: XR CHEST 1 VW COMPARISON: Multiple [...] soft tissues: No osseous abnormality is visualized. [facility] Panel 20 + Lactic [id number] 14:58:15* Test Item Value Reference Range Interpretation Comme nts PH (test code = 2) 7.43 7.35-7.45 PCO2 (test code = 3888908340) 29 35-45 L PO2 (test code = 2010766997) 113 80-100 H HCO3 (test code = 6865215063) 18 22-26 L BE (test code = 1234794390) -5.1 -3.0-3.0 L THB (test code = 5012416427) 8.9 g/dL 12.0-16.0 L %O2HB (test code = 2055647437) 96.3 % 94.0-99.0 %COHB ART (test code = 2610978561) 1.8 % 0.0-1.5 H %METHB ART (test code = 0812448160) 0.3 % 0.4-1.5 L VOL%O2 ART (test code = 9877169668) 12.3 % 15.0-23.0 L NA (test code = 1343558589) 138 mmol/L 135-145 K+ (test code = 7730697608) 3.7 mmol/L 3.5-5.0 AC CA IONZ (test code = 4411505538) 4.30 mg/dL 4.50-5.30 L GLUCOSE (test code = 2819884306) 112 mg/dL 70-110 H LACTIC ACID (test code = 5667647777) 1.59 mmol/L 0.50-2.20 Lab Interpretation (test cod e = 79173-6) [facility]normal [facility] (NA, K, CL, CO2, GLUCOSE, BUN, CREATININE, CA)2023-12-06 10:20:05* Test Item Value Reference Range Interpretation Comme nts NA (test code = 2454122693) 136 mmol/L 135-145 K (test code = 4362392393) 4.0 mmol/L 3.5-5.0 CL (test code = 2884649826) 107 mmol/L 98-108 CO2 TOTAL (test code = 1688631759) 16 mmol/L 23-31 L AGAP (test code = 7276806952) 13 2-16 BUN (test code = 6867028604) 41 mg/dL 7-23 H GLUCOSE (test code = 9044469672) 115 mg/dL 70-110 H CREATININE (test code = 2160-0) 2.10 mg/dL 0.50-1.04 H CALCIUM (test code = 4696630438) 7.9 mg/dL 8.6-10.6 L eGFR (test code = 97283-2) 24.2 mL/min/1.73m2 CKD-EPI eGFR (2020). Assuming creatinine has been stable day-to-day for at least three months, the eGFR indicates Category G4 (15 - 29 mL/min/1.73 m2) Lab Interpretation (test code = 08059-9) [facility]normal [facility] Rock[facility]esium2024-09-11 10:20:05* Test Item Value Reference Range Interpretation Comme nts MAGNESIUM (test code = 0154106907) 2.1 mg/dL 1.7-2.4 Lab Interpretation (test cod e = 12547-0) Normal [facility] RockPhosphorus2024-09-11 10:20:05* Test Item Value Reference Range Interpretation Comme nts PHOSPHORUS (test code = 8515771104) 4.7 mg/dL 2.5-5.0 Lab Interpretation (test cod e = 15725-2) Normal [facility] RockCbc with [id number] 09:59:09* Test Item Value Reference Range Interpretation [...] 32.7 g/dL 31.6-35.1 RDW-SD (test code = 53334-1) 57.8 fL 39.0-49.9 H RDW-CV (test code = 788-0) 21.9 % 12.0-15.5 H PLT (test code = 777-3) 437 166-358 H MPV (test code = 83740-4) 8.8 fL 9.5-12.9 L NRBC/100 WBC (test code = 4626263788) 0.2 0.0-10.0 NRBC x10^3 (test code = 2646123506) 0.03 See_Comment [Automated message] The system which generated this result transmitted reference range: 10*3/?L. The reference range was not used to interpret this result as normal/abnormal. GRAN MAT (NEUT) % (test code = 770-8) 82.2 % IMM GRAN % (test code = 2741898135) 6.10 % LYMPH % (test code = 736-9) 8.5 % MONO % (test code = 5905-5) 3.0 % EOS % (test code = 713-8) 0.1 % BASO % (test code = 706-2) 0.1 % GRAN MAT x10^3(ANC) (test code = 7349379280) 15.85 10*3/uL 1.88-7.09 H IMM GRAN x10^3 (test code = 3380227847) 1.17 10*3/uL 0.00-0.06 H LYMPH x10^3 (test [...] as normal/abnormal. Lab Interpretation (test code = 75881-3) Abnormal [facility] RockPrepare Packed RBC (in units), 1 Units 2023-12-06 09:47:53* Test Item Value Reference Range Interpretation Comme nts Cross Match Result (test code = 4409) Compatible ISBT Blood Type Code (test code = 774009) 6200 Unit Blood Type (test code = 4410) A Pos Unit Number (test code = 4411) [id number] Blood Expiration Date & Time (test code = 268593) [id number] Status Information (test code = 4412) Issued Product Identification (test code = 4413) Red Blood Cells Product Code (test code = 4414) [id number] Performed at [facility] Laboratory Services [facility] Blood [address] [address]Eqbt Free: [phone] No. [phone] [facility] Rock[facility] Panel 20 + Lactic [id number] 08:25:51* Test Item Value Reference Range Interpretation Comme nts PH (test code = 2) 7.42 7.35-7.45 PCO2 (test code = 0456448166) 28 35-45 L PO2 (test code = 1753174002) 121 80-100 H HCO3 (test code = 8209827420) 18 22-26 L BE (test code = 2341979575) -5.8 -3.0-3.0 L THB (test code = 0625992288) 8.0 g/dL 12.0-16.0 LL %O2HB (test code = 8508945179) 97.6 % 94.0-99.0 %COHB ART (test code = 0290771722) 0.8 % 0.0-1.5 %METHB ART (test code = 2508518320) 0.3 % 0.4-1.5 L VOL%O2 ART (test code = 3124032826) 11.2 % 15.0-23.0 L NA (test code = 1234444869) 136 mmol/L 135-145 K+ (test code = 6612260553) 4.1 mmol/L 3.5-5.0 AC CA IONZ (test code = 6175379516) 4.30 mg/dL 4.50-5.30 L GLUCOSE (test code = 3004839037) 109 mg/dL 70-110 LACTIC ACID (test code = 2034946034) 1.56 mmol/L 0.50-2.20 Lab Interpretation (test cod e = 91260-3) Abnormal [facility] RockAcute Care Arterial Blood Gas. 30 minutes post ventilation.2023-12-05 17:42:21* Test Item Value Reference Range Interpretation Comme nts PH (test code = 2) 7.42 7.35-7.45 PCO2 (test code = 4241811389) 29 35-45 L PO2 (test code = 0582617850) 132 80-100 H HCO3 (test code = 3756817263) 19 22-26 L BE (test code = 1472637677) -4.5 -3.0-3.0 L Lab Interpretation (test cod e = 51441-6) Abnormal [facility] RockXR CHEST 1 [id number] 14:08:34Study: Single view chest. Ordering Physician: DONA ELKINS Date: 12/05/2023 4:00 AM History:Intubated, respiratory failure. COMPARISON: 12/04/2023 Findings: Single frontal view chest demonstrates cardiomegaly. The lungsappear clear without infiltrate, pleural effusion or pneumothorax. Theendotracheal tube terminates 5.0 cm above the sera. The right internaljugular venous catheter terminates overthe distal superior vena cava.[facility] with [id number] 09:58:11* Test Item Value Reference Range Interpretation [...] 32.0 g/dL 31.6-35.1 RDW-SD (test code = 55273-8) 56.0 fL 39.0-49.9 H RDW-CV (test code = 788-0) 21.4 % 12.0-15.5 H PLT (test code = 777-3) 614 166-358 H MPV (test code = 93517-0) 8.9 fL 9.5-12.9 L NRBC/100 WBC (test code = 7631182581) 0.3 0.0-10.0 NRBC x10^3 (test code = 0958436524) 0.06 See_Comment [Automated message] The system which generated this result transmitted reference range: 10*3/?L. The reference range was not used to interpret this result as normal/abnormal. GRAN MAT (NEUT) % (test code = 770-8) 82.5 % IMM GRAN % (test code = 9976049436) 4.10 % LYMPH % (test code = 736-9) 9.4 % MONO % (test code = 5905-5) 3.8 % EOS % (test code = 713-8) 0.0 % BASO % (test code = 706-2) 0.2 % GRAN MAT x10^3(ANC) (test code = 2659051987) 18.23 10*3/uL 1.88-7.09 H IMM GRAN x10^3 (test code = 9516791449) 0.91 10*3/uL 0.00-0.06 H LYMPH x10^3 (test [...] result as normal/abnormal. BANDS (test code = 1744328089) Increased A Lab Interpretation (test code = 98444-4) Abnormal [facility] RockBasi Metabolic Panel (NA, K, CL, CO2, GLUCOSE, BUN, CREATININE, CA)2023-12-05 09:41:38* Test Item Value Reference Range Interpretation Comme nts NA (test code = 1297573962) 134 mmol/L 135-145 L K (test code = 4036915192) 5.0 mmol/L 3.5-5.0 CL (test code = 5914140567) 104 mmol/L 98-108 CO2 TOTAL (test code = 5259861488) 16 mmol/L 23-31 L AGAP (test code = 5088710617) 14 2-16 BUN (test code = 9559101788) 38 mg/dL 7-23 H GLUCOSE (test code = 2579483320) 121 mg/dL 70-110 H CREATININE (test code = 2160-0) 2.53 mg/dL 0.50-1.04 H CALCIUM (test code = 1336280961) 8.1 mg/dL 8.6-10.6 L eGFR (test code = 84573-3) 19.3 mL/min/1.73m2 CKD-EPI eGFR (2020). Assuming creatinine has been stable day-to-day for at least three months, the eGFR indicates Category G4 (15 - 29 mL/min/1.73 m2) Lab Interpretation (test code = 33541-9) Abnormal [facility] RockMagnesium2024-09-10 09:41:38* Test Item Value Reference Range Interpretation Comme nts MAGNESIUM (test code = 4958420776) 2.1 mg/dL 1.7-2.4 Lab Interpretation (test cod e = 20277-7) Normal [facility] RockPhosphorus2024-09-10 09:41:38* Test Item Value Reference Range Interpretation Comme nts PHOSPHORUS (test code = 8480593930) 4.9 mg/dL 2.5-5.0 Lab Interpretation (test cod e = 23785-2) Normal [facility] Rock[facility] Panel 20 + Lactic [id number] 08:38:38* Test Item Value Reference Range Interpretation Comme nts PH (test code = 2) 7.43 7.35-7.45 PCO2 (test code = 7275162060) 28 35-45 L PO2 (test code = 5058716635) 112 80-100 H HCO3 (test code = 0434771792) 18 22-26 L BE (test code = 4156858091) -5.3 -3.0-3.0 L THB (test code = 5145457739) 7.9 g/dL 12.0-16.0 LL %O2HB (test code = 9275451189) 97.3 % 94.0-99.0 %COHB ART (test code = 7117075813) 0.7 % 0.0-1.5 %METHB ART (test code = 9896276582) 0.3 % 0.4-1.5 L VOL%O2 ART (test code = 7343459180) 11.0 % 15.0-23.0 L NA (test code = 0664727930) 134 mmol/L 135-145 L K+ (test code = 7999192745) 5.1 mmol/L 3.5-5.0 H AC CA IONZ (test code = 3655460957) 4.30 mg/dL 4.50-5.30 L GLUCOSE (test code = 2579950086) 120 mg/dL 70-110 H LACTIC ACID (test code = 3831271489) 1.95 mmol/L 0.50-2.20 Lab Interpretation (test cod e = 91397-8) Abnormal [facility] CHEST 1 [id number] 05:27:23Ordering physician: TAYLOR SEGUNDO Indication: Central line placement Comparison: Chest dated 12/04/2023 at 1940 Technical quality: Adequate Findings: Single AP view of the chest. Endotracheal tube terminates 5.6 cmabove the sera. Right internal jugular central venous catheter terminatesjust past the cavoatrial junction. The cardiopericardial silhouette ismoderately enlarged. The lungs are clear bilat erally. The visualized bonythorax is intact.[facility] CHEST 1 [id number] 05:20:21Ordering physician: TAYLOR SEGUNDO Indication: Central line Comparison: Chest dated 12/15/2023 1949 Technical quality: Adequate Findings: Single AP view of the chest. Endotracheal tube terminates 5.1 cmabove the sera. Right internal jugular central venous catheter terminatesin the right atrium. There is stable moderate cardiomegaly. No acutepulmonary process is appreciated. The visualized bony thorax is intact.[facility] Panel 20 + Lactic [id number] 04:05:35* Test Item Value Reference Range Interpretation Comme nts PH (test code = 2) 7.41 7.35-7.45 PCO2 (test code = 0160531835) 28 35-45 L PO2 (test code = 8084232977) 115 80-100 H HCO3 (test code = 6742012575) 17 22-26 L BE (test code = 0622237469) -6.7 -3.0-3.0 L THB (test code = 9316238037) 8.7 g/dL 12.0-16.0 L %O2HB (test code = 5618675459) 97.0 % 94.0-99.0 %COHB ART (test code = 8033475428) 1.5 % 0.0-1.5 %METHB ART (test code = 4802264907) 0.3 % 0.4-1.5 L VOL%O2 ART (test code = 6782300126) 12.1 % 15.0-23.0 L NA (test code = 1646760938) 133 mmol/L 135-145 L K+ (test code = 9461333685) 5.1 mmol/L 3.5-5.0 H AC CA IONZ (test code = 8871185335) 4.30 mg/dL 4.50-5.30 L GLUCOSE (test code = 5684628616) 104 mg/dL 70-110 LACTIC ACID (test code = 8512365278) 2.10 mmol/L 0.50-2.20 QUES Lab Interpretation (test cod e = 51453-9) [facility] + Lactic [id number] 01:59:51* Test Item Value Reference Range Interpretation Comme nts PH (test code = 2) 7.42 7.35-7.45 PCO2 (test code = 3180004656) 28 35-45 L PO2 (test code = 5683774195) 155 80-100 H HCO3 (test code = 0430999694) 18 22-26 L BE (test code = 9800838503) -6.2 -3.0-3.0 L THB (test code = 1358829065) 7.1 g/dL 12.0-16.0 LL %O2HB (test code = 6346614764) 97.8 % 94.0-99.0 %COHB ART (test code = 8464117551) 1.5 % 0.0-1.5 %METHB ART (test code = 0497899207) 0.3 % 0.4-1.5 L VOL%O2 ART (test code = 5133764781) 10.1 % 15.0-23.0 L NA (test code = 7635938993) 134 mmol/L 135-145 L K+ (test code = 9931771394) 5.1 mmol/L 3.5-5.0 H AC CA IONZ (test code = 2755993704) 4.20 mg/dL 4.50-5.30 L GLUCOSE (test code = 6962027818) 104 mg/dL 70-110 LACTIC ACID (test code = 4011520315) 3.00 mmol/L 0.50-2.20 H QUES Lab Interpretation (test cod e = 17489-5) Abnormal [facility] with [id number] 23:18:18* Test Item Value Reference Range Interpretation [...] 31.7 g/dL 31.6-35.1 RDW-SD (test code = 81729-4) 57.0 fL 39.0-49.9 H RDW-CV (test code = 788-0) 21.1 % 12.0-15.5 H PLT (test code = 777-3) 692 166-358 H MPV (test code = 53665-9) 9.1 fL 9.5-12.9 L NRBC/100 WBC (test code = 1141590866) 0.5 0.0-10.0 NRBC x10^3 (test code = 8132731808) 0.12 See_Comment [Automated message] The system which generated this result transmitted reference range: 10*3/?L. The reference range was not used to interpret this result as normal/abnormal. GRAN MAT (NEUT) % (test code = 770-8) 84.9 % IMM GRAN % (test code = 6756660170) 2.90 % LYMPH % (test code = 736-9) 8.6 % MONO % (test code = 5905-5) 3.3 % EOS % (test code = 713-8) 0.0 % BASO % (test code = 706-2) 0.3 % GRAN MAT x10^3(ANC) (test code = 2365989944) 19.00 10*3/uL 1.88-7.09 H IMM GRAN x10^3 (test code = 0906534468) 0.65 10*3/uL 0.00-0.06 H LYMPH x10^3 (test [...] result as normal/abnormal. BANDS (test code = 1516626142) MARKED INCREASED A DOHLE BODIES (test code = 7792-5) Present A Lab Interpretation (test code = 98125-0) Abnormal [facility] Metabolic Panel (NA, K, CL, CO2, GLUCOSE, BUN, CREATININE, CA)2023-12-04 22:55:40* Test Item Value Reference Range Interpretation Comme nts NA (test code = 9606401461) 134 mmol/L 135-145 L K (test code = 3755471659) 5.1 mmol/L 3.5-5.0 H CL (test code = 2995521316) 106 mmol/L 98-108 CO2 TOTAL (test code = 6487657650) 16 mmol/L 23-31 L AGAP (test code = 4288700289) 12 2-16 BUN (test code = 0702444217) 34 mg/dL 7-23 H GLUCOSE (test code = 9915691042) 102 mg/dL 70-110 CREATININE (test code = 2160-0) 2.15 mg/dL 0.50-1.04 H CALCIUM (test code = 3121362500) 8.0 mg/dL 8.6-10.6 L eGFR (test code = 49537-0) 23.5 mL/min/1.73m2 CKD-EPI eGFR (2020). Assuming creatinine has been stable day-to-day for at least three months, the eGFR indicates Category G4 (15 - 29 mL/min/1.73 m2) Lab Interpretation (test code = 41038-9) Abnormal [facility] RockTransthoracic echo (TTE) [id number] 21:56:12* Test Item Value Reference Range Interpretation Comme nts Height (test code = 9861305775) 68 in Weight (test code = 5369744917) 375 lbs Systolic BP (test code = 8026741973) 195 mmHg Diastolic BP (test code = 8854642947) 165 mmHg Heart Rate (test code = 5587664328) 109 bpm BSA (test code = 9047239810) 2.7 m2 LVIDD (test code = 6290330574) 4.90 cm Left Ventricular End Diastolic Volume by Teichholz Method (test code = 6439347) 115.2 mL IVS (test code = 3845478393) 0.92 cm Interventricular Septum Diastolic Thickness by 2D (test code = 2371067) 0.92 cm LVPWD (test code = 3336644425) 1.02 cm PW (test code = 9315419830) 1.02 cm 0.6-1.1 EF(Teich) (test code = 2316918850) 60.40 % LVIDS (test code = 1219211311) 3.30 cm Left Ventricular End Systolic Volume by Teichholz Method (test code = 4627468) 45.7 mL FS (test code = 2218643232) 32 % EF - 2D (test code = 60746092) 60.40 % A4C EF (test code = 3939103758) 58.60 % EF(sp4-el) (test code = 8887718640) 55.90 % SV(MOD-sp4) (test code = 5832365915) 65.80 mL SV(sp4-el) (test code = 2584805751) 64.20 mL LV Diastolic Volume (BP) (test code = 0470952224) 114.6 mL A2C EF (test code = 5452749193) 72.10 % EF(MOD-bp) (test code = 7780455127) 65.70 % EF(sp2-el) (test code = 1033535046) 74.20 % LV Systolic Volume (BP) (test code = 6879439714) 39.3 mL SV(MOD-bp) (test code = 5476032577) 75.30 mL SV(MOD-sp2) (test code = 0382011768) 78.80 mL EF (test code = 4958191761) 66 Left Ventricular Stroke Volume by 2-D Biplane-MOD (test code = 9228728) 75.3 mL LV Diastolic Volume Index (BP) (test code = 3610235684) 42.4 mL/m2 LV Systolic Volume Index (BP) (test code = 4962392742) 14.6 mL/m2 Radiology Study observation (narrative) (test code = 33008-3) JESSICA (test code = JESSICA) ?Left?Ventricle: Not [...] are hypokinetic: apex.All other segments are normal. [facility] 20 + Lactic [id number] 20:05:31* Test Item Value Reference Range Interpretation Comme nts PH (test code = 2) 7.40 7.35-7.45 PCO2 (test code = 9752410972) 27 35-45 L PO2 (test code = 5552236568) 149 80-100 H HCO3 (test code = 2211724193) 16 22-26 L BE (test code = 0390720954) -7.6 -3.0-3.0 L THB (test code = 9374977945) 10.5 g/dL 12.0-16.0 L %O2HB (test code = 4631928090) 98.1 % 94.0-99.0 %COHB ART (test code = 7542574480) 1.1 % 0.0-1.5 %METHB ART (test code = 7466342618) 0.3 % 0.4-1.5 L VOL%O2 ART (test code = 8134113968) 14.8 % 15.0-23.0 L NA (test code = 1698263100) 134 mmol/L 135-145 L K+ (test code = 7031768156) 5.1 mmol/L 3.5-5.0 H AC CA IONZ (test code = 1817506742) 4.30 mg/dL 4.50-5.30 L GLUCOSE (test code = 5467219595) 97 mg/dL 70-110 LACTIC ACID (test code = 5849959884) 4.39 mmol/L 0.50-2.20 H QUES Lab Interpretation (test cod e = 64037-8) Abnormal [facility] RockGlycosylated Hemoglobin (A1C)2023-12-04 18:13:56* Test Item Value Reference Range Interpretation Comme nts HGB A1C (test code = 4548-4) 5.4 % 4.0-5.7 JESSICA (test code = JESSICA) Reference RangesNormal: <5.7%Prediabetes: 5.7 - 6.4%Diabetes: > 6.5% Lab Interpretation (test code = 69840-8) Normal [facility] RockGlycosylated Hemoglobin (A1C)2023-12-04 18:13:56* Test Item Value Reference Range Interpretation Comme nts HGB A1C (test code = 4548-4) 5.4 % 4.0-5.7 JESSICA (test code = JESSICA) Reference RangesNormal: <5.7%Prediabetes: 5.7 - 6.4%Diabetes: > 6.5% Lab Interpretation (test code = 81505-0) Normal [facility] RockXR [id number] 15:42:50EXAM: XR KUB, XR KUB, XR KUB HISTORY: 73 years-old Female; NGT . TECHNIQUE: Frontal view of the abdo men and pelvis COMPARISON: CT abdomen pelvis dated 12/03/2023 [id number] dated 12/04/2023 [facility] [id number] 15:42:50EXAM: XR KUB, XR KUB, XR KUB HISTORY: 73 years-old Female; NGT . TECHNIQUE: Frontal view of the abdomen and pelvis COMPARISON: CT abdomen pelvis dated 12/03/2023 [id number] dated 12/04/2023 at 2:24[facility] CHEST 1 VW 2023-12-04 13:59:41EXAM: XR CHEST 1 VW COMPARISON: 12/02/2023 HISTORY: intub FINDINGS: Lines/Tubes: Interval placement of endotracheal tube which projectsapproximately 4 cm above the sera. An enteric tube coursessubdiap hragmatically with tip excluded from [id number]-gn-ruyr. Lungs: No focal consolidation or pneumothorax. Decrease in previously seenprominent interstitial markings. Possible trace right pleural effusion. Heart/Mediastinum: The cardiac silhouette appears borderline enlarged. Bones and soft tissues: No acute findings are detected.[facility] [id number] 13:59:41EXAM: XR CHEST 1 VW COMPARISON: 12/02/2023 HISTORY: intub FINDINGS: Lines/Tubes: Interval placement of endotracheal tube which projectsapproximately 4 cm above the sera. An enteric tube coursessubdiaphragmatically with tip excluded from ikprv-cn-jezo. Lungs: No focal consolidation or pneumothorax. D ecrease in previously seenprominent interstitial markings. Possible trace right pleural effusion. Heart/Mediastinum: The cardiac silhouette appears borderline enlarged. Bones and soft tissues: No acute findings are detected.[facility] + Lactic [id number] 10:31:19* Test Item Value Reference Range Interpretation Comme nts PH (test code = 2) 7.33 7.35-7.45 L PCO2 (test code = 2211711643) 30 35-45 L PO2 (test code = 1901821928) 178 80-100 H HCO3 (test code = 2999709321) 16 22-26 L BE (test code = 9502336483) -8.8 -3.0-3.0 L THB (test code = 3859542889) 11.8 g/dL 12.0-16.0 L %O2HB (test code = 5722305014) 98.1 % 94.0-99.0 %COHB ART (test code = 8389249403) 1.0 % 0.0-1.5 %METHB ART (test code = 1673226777) 0.3 % 0.4-1.5 L VOL%O2 ART (test code = 9874739742) 16.6 % 15.0-23.0 NA (test code = 2679083045) 134 mmol/L 135-145 L K+ (test code = 2765660060) 4.8 mmol/L 3.5-5.0 AC CA IONZ (test code = 9236179020) 4.50 mg/dL 4.50-5.30 GLUCOSE (test code = 2034439631) 111 mg/dL 70-110 H LACTIC ACID (test code = 5914283506) 4.15 mmol/L 0.50-2.20 H Lab Interpretation (test cod e = 93086-0) Abnormal [facility] + Lactic [id number] 10:31:19* Test Item Value Reference Range Interpretation Comme nts PH (test code = 2) 7.33 7.35-7.45 L PCO2 (test code = 4496303292) 30 35-45 L PO2 (test code = 4230416411) 178 80-100 H HCO3 (test code = 6583683108) 16 22-26 L BE (test code = 8761600487) -8.8 -3.0-3.0 L THB (test code = 8593792316) 11.8 g/dL 12.0-16.0 L %O2HB (test code = 5080900039) 98.1 % 94.0-99.0 %COHB ART (test code = 9855352285) 1.0 % 0.0-1.5 %METHB ART (test code = 4431051678) 0.3 % 0.4-1.5 L VOL%O2 ART (test code = 9896366075) 16.6 % 15.0-23.0 NA (test code = 9622001441) 134 mmol/L 135-145 L K+ (test code = 0048182896) 4.8 mmol/L 3.5-5.0 AC CA IONZ (test code = 7374409180) 4.50 mg/dL 4.50-5.30 GLUCOSE (test code = 4102573907) 111 mg/dL 70-110 H LACTIC ACID (test code = 6822864215) 4.15 mmol/L 0.50-2.20 H Lab Interpretation (test cod e = 64256-6) [facility]normal [facility] with [id number] 09:09:53* Test Item Value Reference Range Interpretation [...] g/dL 31.6-35.1 L RDW-SD (test code = 84248-6) 58.1 fL 39.0-49.9 H RDW-CV (test code = 788-0) 21.5 % 12.0-15.5 H PLT (test code = 777-3) 829 166-358 H MPV (test code = 69898-4) 8.8 fL 9.5-12.9 L NRBC/100 WBC (test code = 7667004975) 1.1 0.0-10.0 NRBC x10^3 (test code = 3095309604) 0.14 See_Comment [Automated message] The system which generated this result transmitted reference range: 10*3/?L. The reference range was not used to interpret this result as normal/abnormal. GRAN MAT (NEUT) % (test code = 770-8) 82.1 % IMM GRAN % (test code = 1615539186) 1.10 % LYMPH % (test code = 736-9) 13.0 % MONO % (test code = 5905-5) 3.2 % EOS % (test code = 713-8) 0.1 % BASO % (test code = 706-2) 0.5 % GRAN MAT x10^3(ANC) (test code = 4291400092) 10.52 10*3/uL 1.88-7.09 H IMM GRAN x10^3 (test code = 2652673990) 0.14 10*3/uL 0.00-0.06 H LYMPH x10^3 (test [...] result as normal/abnormal. BANDS (test code = 1589333885) MARKED INCREASED A DOHLE BODIES (test code = 7792-5) Present A Lab Interpretation (test code = 45750-3) Abnormal [facility] with [id number] 09:09:53* Test Item Value Reference Range Interpretation [...] g/dL 31.6-35.1 L RDW-SD (test code = 48311-6) 58.1 fL 39.0-49.9 H RDW-CV (test code = 788-0) 21.5 % 12.0-15.5 H PLT (test code = 777-3) 829 166-358 H MPV (test code = 82650-5) 8.8 fL 9.5-12.9 L NRBC/100 WBC (test code = 3107853225) 1.1 0.0-10.0 NRBC x10^3 (test code = 9569104138) 0.14 See_Comment [Automated message] The system which generated this result transmitted reference range: 10*3/?L. The reference range was not used to interpret this result as normal/abnormal. GRAN MAT (NEUT) % (test code = 770-8) 82.1 % IMM GRAN % (test code = 6424211679) 1.10 % LYMPH % (test code = 736-9) 13.0 % MONO % (test code = 5905-5) 3.2 % EOS % (test code = 713-8) 0.1 % BASO % (test code = 706-2) 0.5 % GRAN MAT x10^3(ANC) (test code = 8593380320) 10.52 10*3/uL 1.88-7.09 H IMM GRAN x10^3 (test code = 4638347735) 0.14 10*3/uL 0.00-0.06 H LYMPH x10^3 (test [...] result as normal/abnormal. BANDS (test code = 4935237814) MARKED INCREASED A DOHLE BODIES (test code = 7792-5) Present A Lab Interpretation (test code = 87219-5) [facility]normal [facility] Rock[facility]20[facility] 08:50:45* Test Item Value Reference Range Interpretation Comme nts PHOSPHORUS (test code = 0179374247) 5.9 mg/dL 2.5-5.0 H Lab Interpretation (test cod e = 87271-9) Abnormal [facility] RockMagnesium2024-09-09 08:50:45* Test Item Value Reference Range Interpretation Comme nts MAGNESIUM (test code = 3909252724) 2.1 mg/dL 1.7-2.4 Lab Interpretation (test cod e = 27295-8) Normal [facility] Metabolic Panel (NA, K, CL, CO2, GLUCOSE, BUN, CREATININE, CA)2023-12-04 08:50:45* Test Item Value Reference Range Interpretation Comme nts NA (test code = 8811571261) 135 mmol/L 135-145 K (test code = 5006383862) 5.0 mmol/L 3.5-5.0 CL (test code = 9296327704) 104 mmol/L 98-108 CO2 TOTAL (test code = 2875692651) 16 mmol/L 23-31 L AGAP (test code = 3602399324) 15 2-16 BUN (test code = 1146356570) 29 mg/dL 7-23 H GLUCOSE (test code = 3145449790) 126 mg/dL 70-110 H CREATININE (test code = 2160-0) 1.51 mg/dL 0.50-1.04 H CALCIUM (test code = 2306746179) 8.6 mg/dL 8.6-10.6 eGFR (test code = 08860-2) 35.9 mL/min/1.73m2 CKD-EPI eGFR (2020). Assuming creatinine has been stable day-to-day for at least three months, the eGFR indicates Category G3b (30 - 44 mL/min/1.73 m2) Lab Interpretation (test code = 45803-6) Abnormal [facility] Metabolic Panel (NA, K, CL, CO2, GLUCOSE, BUN, CREATININE, CA)2023-12-04 08:50:45* Test Item Value Reference Range Interpretation Comme nts NA (test code = 2044025643) 135 mmol/L 135-145 K (test code = 3270926111) 5.0 mmol/L 3.5-5.0 CL (test code = 7777425407) 104 mmol/L 98-108 CO2 TOTAL (test code = 7541905932) 16 mmol/L 23-31 L AGAP (test code = 1948533541) 15 2-16 BUN (test code = 9025262199) 29 mg/dL 7-23 H GLUCOSE (test code = 6840105005) 126 mg/dL 70-110 H CREATININE (test code = 2160-0) 1.51 mg/dL 0.50-1.04 H CALCIUM (test code = 1357745122) 8.6 mg/dL 8.6-10.6 eGFR (test code = 08382-9) 35.9 mL/min/1.73m2 CKD-EPI eGFR (2020). Assuming creatinine has been stable day-to-day for at least three months, the eGFR indicates Category G3b (30 - 44 mL/min/1.73 m2) Lab Interpretation (test code = 26735-1) [facility]normal [facility] Rock[facility]esium2024-09-09 08:50:45* Test Item Value Reference Range Interpretation Comme nts MAGNESIUM (test code = 5150810599) 2.1 mg/dL 1.7-2.4 Lab Interpretation (test cod e = 30140-4) Normal [facility] RockPhosphorus2024-09-09 08:50:45* Test Item Value Reference Range Interpretation Comme nts PHOSPHORUS (test code = 4691989671) 5.9 mg/dL 2.5-5.0 H Lab Interpretation (test cod e = 13275-1) Abnormal [facility] RockFibrinogen2024-09-09 08:48:34* Test Item Value Reference Range Interpretation Comme nts Fibrinogen (test code = 4451918702) 879 mg/dL 167-453 H Lab Interpretation (test cod e = 59326-1) Abnormal [facility] RockFibrinogen2024-09-09 08:48:34* Test Item Value Reference Range Interpretation Comme nts Fibrinogen (test code = 2585349735) 879 mg/dL 167-453 H Lab Interpretation (test cod e = 86810-2) Abnormal [facility] RockProthrombin Time / [id number] 08:48:09* Test Item Value Reference Range Interpretation Comme nts PROTIME PATIENT (test code = 5964-2) 21.6 10.1-12.6 H INR (test code = 6301-6) 2.0 Normal INR <1.1; Warfarin Therapeutic range 2.0 to 3.0 or 2.5 to 3.5, depending upon the indications. Lab Interpretation (test code = 45997-7) Abnormal [facility] RockActivated Partial Thrmplas Hni1799-75-16 08:48:09* Test Item Value Reference Range Interpretation Comme [facility] APTT Patient (test code = 3173-2) 32 26-36 Lab Interpretation (test cod e = 33021-4) Normal [facility] RockActivated Partial Thrmplas [id number] 08:48:09* Test Item Value Reference Range Interpretation Comme [facility] APTT Patient (test code = 3173-2) 32 26-36 Lab Interpretation (test cod e = 84389-3) Normal [facility] RockProthrombin Time / [id number] 08:48:09* Test Item Value Reference Range Interpretation Comme [facility] PROTIME PATIENT (test code = 5964-2) 21.6 10.1-12.6 H INR (test code = 6301-6) 2.0 Normal INR <1.1; Warfarin Therapeutic range 2.0 to 3.0 or 2.5 to 3.5, depending upon the indications. Lab Interpretation (test code = 23990-4) Abnormal [facility] RockAC Panel 20 + Lactic Tasd4252-02-04 08:18:49* Test Item Value Reference Range Interpretation Comme [facility] PH (test code = 2) 7.27 7.35-7.45 L PCO2 (test code = 1110715677) 37 35-45 PO2 (test code = 9717547917) 312 80-100 H HCO3 (test code = 7013221067) 17 22-26 L BE (test code = 6323393505) -9.5 -3.0-3.0 L THB (test code = 8946427433) 11.8 g/dL 12.0-16.0 L %O2HB (test code = 2311613667) 98.7 % 94.0-99.0 %COHB ART (test code = 5465645106) 1.0 % 0.0-1.5 %METHB ART (test code = 5786808708) 0.3 % 0.4-1.5 L VOL%O2 ART (test code = 5055806441) 17.2 % 15.0-23.0 NA (test code = 2821058080) 134 mmol/L 135-145 L K+ (test code = 3101819991) 5.0 mmol/L 3.5-5.0 AC CA IONZ (test code = 4786063370) 4.60 mg/dL 4.50-5.30 GLUCOSE (test code = 5522328586) 125 mg/dL 70-110 H LACTIC ACID (test code = 7581893216) 4.75 mmol/L 0.50-2.20 H Lab Interpretation (test cod e = 62987-5) Abnormal [facility] RockAC Panel 20 + Lactic [id number] 08:18:49* Test Item Value Reference Range Interpretation Comme nts PH (test code = 2) 7.27 7.35-7.45 L PCO2 (test code = 5219677354) 37 35-45 PO2 (test code = 1465522270) 312 80-100 H HCO3 (test code = 2282917017) 17 22-26 L BE (test code = 8272997550) -9.5 -3.0-3.0 L THB (test code = 8577858100) 11.8 g/dL 12.0-16.0 L %O2HB (test code = 9428426712) 98.7 % 94.0-99.0 %COHB ART (test code = 6286128970) 1.0 % 0.0-1.5 %METHB ART (test code = 0075414885) 0.3 % 0.4-1.5 L VOL%O2 ART (test code = 9068705836) 17.2 % 15.0-23.0 NA (test code = 2211385022) 134 mmol/L 135-145 L K+ (test code = 1386659248) 5.0 mmol/L 3.5-5.0 AC CA IONZ (test code = 9326094883) 4.60 mg/dL 4.50-5.30 GLUCOSE (test code = 1021580184) 125 mg/dL 70-110 H LACTIC ACID (test code = 3580408848) 4.75 mmol/L 0.50-2.20 H Lab Interpretation (test cod e = 34026-3) Abnormal [facility] RockPrepare Packed RBC (in units), 2 Units 2023-12-04 02:36:27* Test Item Value Reference Range Interpretation Comme nts Cross Match Result (test code = 4409) Compatible ISBT Blood Type Code (test code = 016449) 6200 Unit Blood Type (test code = 4410) A Pos Unit Number (test code = 4411) [id number] Blood Expiration Date & Time (test code = 639342) 904823252395 Status Information (test code = 4412) Issued Product Identification (test code = 4413) Red Blood Cells Product Code (test code = 4414) [id number] Performed at [facility] Blood [address] Free: [phone] No. [id number] [facility] RockPref [facility] Packed RBC (in units), 2 Units 2023-12-04 02:36:27* Test Item Value Reference Range Interpretation Comme nts Cross Match Result (test code = 4409) Compatible ISBT Blood Type Code (test code = 045276) 6200 Unit Blood Type (test code = 4410) A Pos Unit Number (test code = 4411) [id number] Blood Expiration Date & Time (test code = 807793) 499362458121 Status Information (test code = 4412) Issued Product Identification (test code = 4413) Red Blood Cells Product Code (test code = 4414) [id number] Performed at [address] Free: [phone] No. [id number] [facility] RockArterial Dgez4283-23-63 01:12:00Bashir Carvalho MD ? ? 12/03/2023 ?8:44 [...] wires accounted forComments: ? Tegaderm CHG applied. [facility] RockIntubation2024-09-09 00:57:00WBashir beavers MD ? ? 12/03/2023 ?8:42 PMIntubationDate/Time: 12/03/2023 7:57 PMUrgency: elective Airway not difficult General Information and Staff Patient location during procedure: ORPerformed: resident/SECOND SHIFT SUPERVISOR Performed by: Stan Izquierdo, MDAuthorized by: Kentrell Núñez MD ? Indications [...] ?Lips, gums, teeth, and nose unchanged vs. preop.[facility] RockCT ABDOMEN PELVIS W [id number] 23:18:25EXAM: CT ABDOMEN AND PELVIS WITH CONTRAST [...] the spine, sacroiliac joints and hips is present.[facility] RockCT ABDOMEN PELVIS W CONTRAST 2023-12-03 23:18:25EXAM: CT [...] the spine, sacroiliac joints and hips is present.[facility] ABDOMEN PELVIS W CONTRAST 2023-12-03 23:14:34EXAM: [...] the spine, sacroiliac joints and hips is present.[facility] ABDOMEN PELVIS W [id number] 23:14:34EXAM: CT ABDOMEN AND PELVIS WITH CONTRAST [...] the spine, sacroiliac joints and hips is present.[facility] RockAC Panel 21 + Lactic Cclj8061-07-72 21:02:46* Test Item Value Reference Range Interpretation Comme nts PH (test code = 2571610892) 7.44 7.32-7.42 H PCO2 GE (test code = 0302513586) 31 41-51 L PO2 GE (test code = 2272258956) 33 25-40 HCO3 GE (test code = 5139697229) 21 24-28 L AC VBE(BEAKER) (test code = 7775738497) -3.0 mEq/L THB GE (test code = 8530319169) 9.3 g/dL 12.0-16.0 L %O2HB GE (test code = 0453488524) 63.2 % 52.0-63.0 H %COHB GE (test code = 0852963827) 1.6 % 0.0-1.5 H %METHB GE (test code = 5377495023) 0.3 % 0.4-1.5 L VOL%O2 GE (test code = 3542607950) 8.3 % 6.0-12.0 NA (test code = 7459525512) 134 mmol/L 135-145 L K+ (test code = 3424059050) 5.4 mmol/L 3.5-5.0 H AC CA IONZ (test code = 7842716444) 4.50 mg/dL 4.50-5.30 GLUCOSE (test code = 8783406610) 126 mg/dL 70-110 H LACTIC ACID (test code = 0292568535) 3.03 mmol/L 0.50-2.20 H Lab Interpretation (test cod e = 65911-5) Abnormal [facility] RockAC Panel 21 + Lactic [id number] 21:02:46* Test Item Value Reference Range Interpretation Comme nts PH (test code = 6398795932) 7.44 7.32-7.42 H PCO2 GE (test code = 7780876167) 31 41-51 L PO2 GE (test code = 1694229037) 33 25-40 HCO3 GE (test code = 0721315720) 21 24-28 L AC VBE(BEAKER) (test code = 4472220396) -3.0 mEq/L THB GE (test code = 8511226564) 9.3 g/dL 12.0-16.0 L %O2HB GE (test code = 5647038124) 63.2 % 52.0-63.0 H %COHB GE (test code = 2410922926) 1.6 % 0.0-1.5 H %METHB GE (test code = 2078699200) 0.3 % 0.4-1.5 L VOL%O2 GE (test code = 1880465415) 8.3 % 6.0-12.0 NA (test code = 3763451131) 134 mmol/L 135-145 L K+ (test code = 3147253767) 5.4 mmol/L 3.5-5.0 H AC CA IONZ (test code = 6820631215) 4.50 mg/dL 4.50-5.30 GLUCOSE (test code = 6031429355) 126 mg/dL 70-110 H LACTIC ACID (test code = 8310524362) 3.03 mmol/L 0.50-2.20 H Lab Interpretation (test cod e = 91375-0) Abnormal [facility] RockCbc with Vxoh0863-05-03 20:26:23* Test Item Value Reference Range Interpretation [...] 31.6 g/dL 31.6-35.1 RDW-SD (test code = 05943-9) 58.9 fL 39.0-49.9 H RDW-CV (test code = 788-0) 22.5 % 12.0-15.5 H PLT (test code = 777-3) 758 166-358 H MPV (test code = 67614-2) 9.1 fL 9.5-12.9 L NRBC/100 WBC (test code = 3639880004) 0.2 0.0-10.0 NRBC x10^3 (test code = 7174910563) 0.04 See_Comment [Automated message] The system which generated this result transmitted reference range: 10*3/?L. The reference range was not used to interpret this result as normal/abnormal. GRAN MAT (NEUT) % (test code = 770-8) 80.5 % IMM GRAN % (test code = 4266458218) 1.30 % LYMPH % (test code = 736-9) 14.5 % MONO % (test code = 5905-5) 3.2 % EOS % (test code = 713-8) 0.3 % BASO % (test code = 706-2) 0.2 % GRAN MAT x10^3(ANC) (test code = 5228638027) 14.69 10*3/uL 1.88-7.09 H IMM GRAN x10^3 (test code = 8330977622) 0.23 10*3/uL 0.00-0.06 H LYMPH x10^3 (test [...] result as normal/abnormal. BANDS (test code = 3453868110) MARKED INCREASED A DOHLE BODIES (test code = 7792-5) Present A Lab Interpretation (test code = 58340-2) Abnormal [facility] with [id number] 20:26:23* Test Item Value Reference Range Interpretation [...] 31.6 g/dL 31.6-35.1 RDW-SD (test code = 12160-7) 58.9 fL 39.0-49.9 H RDW-CV (test code = 788-0) 22.5 % 12.0-15.5 H PLT (test code = 777-3) 758 166-358 H MPV (test code = 14669-3) 9.1 fL 9.5-12.9 L NRBC/100 WBC (test code = 7393433926) 0.2 0.0-10.0 NRBC x10^3 (test code = 4907348982) 0.04 See_Comment [Automated message] The system which generated this result transmitted reference range: 10*3/?L. The reference range was not used to interpret this result as normal/abnormal. GRAN MAT (NEUT) % (test code = 770-8) 80.5 % IMM GRAN % (test code = 6330573656) 1.30 % LYMPH % (test code = 736-9) 14.5 % MONO % (test code = 5905-5) 3.2 % EOS % (test code = 713-8) 0.3 % BASO % (test code = 706-2) 0.2 % GRAN MAT x10^3(ANC) (test code = 1806141865) 14.69 10*3/uL 1.88-7.09 H IMM GRAN x10^3 (test code = 4049812562) 0.23 10*3/uL 0.00-0.06 H LYMPH x10^3 (test [...] result as normal/abnormal. BANDS (test code = 4103672280) MARKED INCREASED A DOHLE BODIES (test code = 7792-5) Present A Lab Interpretation (test code = 65516-3) Abnormal [facility] RockaPTT2024-09-08 20:09:14* Test Item Value Reference Range Interpretation Comme [facility] APTT Patient (test code = 3173-2) 30 26-36 Lab Interpretation (test cod e = 03642-0) Normal [facility] RockProthrombin Time / [id number] 20:09:14* Test Item Value Reference Range Interpretation Comme nts PROTIME PATIENT (test code = 5964-2) 23.6 10.1-12.6 H INR (test code = 6301-6) 2.2 Normal INR <1.1; Warfarin Therapeutic range 2.0 to 3.0 or 2.5 to 3.5, depending upon the indications. Lab Interpretation (test code = 18149-6) Abnormal [facility] RockaPTT2024-09-08 20:09:14* Test Item Value Reference Range Interpretation Comme [facility] APTT Patient (test code = 3173-2) 30 26-36 Lab Interpretation (test cod e = 33494-3) Normal [facility] RockProthrombin Time / [id number] 20:09:14* Test Item Value Reference Range Interpretation Comme [facility] PROTIME PATIENT (test code = 5964-2) 23.6 10.1-12.6 H INR (test code = 6301-6) 2.2 Normal INR <1.1; Warfarin Therapeutic range 2.0 to 3.0 or 2.5 to 3.5, depending upon the indications. Lab Interpretation (test code = 86209-8) Abnormal [facility] RockHepatic Function Panel (40240) (ALB,T.PRO,BILI T,BU/BC,ALT,AST,ALK PHOS)2023-12-03 20:08:54* Test Item Value Reference Range Interpretation Comme [facility] TOTAL BILI (test code = 0311638350) 0.9 mg/dL 0.1-1.1 BILI UNCON (test code = 9503981321) 0.1 mg/dL 0.1-1.1 BILI CONJ (test code = 2323171073) 0.0 mg/dL 0.0-0.3 T PROTEIN (test code = 4581163772) 7.4 g/dL 6.3-8.2 ALBUMIN (test code = 0299369411) 3.1 g/dL 3.5-5.0 L ALK PHOS (test code = 8357183059) 141 U/L 34-122 H ALTv (test code = 1742-6) 14 U/L 5-35 AST(SGOT) (test code = 3259380168) 49 U/L 13-40 H Lab Interpretation (test cod e = 23471-5) Abnormal [facility] RockBasic Metabolic Panel (NA, K, CL, CO2, GLUCOSE, BUN, CREATININE, CA)2023-12-03 20:08:54* Test Item Value Reference Range Interpretation Comme nts NA (test code = 9555096218) 134 mmol/L 135-145 L K (test code = 8675023297) 4.9 mmol/L 3.5-5.0 Slight hemolysis CL (test code = 4046151853) 103 mmol/L 98-108 CO2 TOTAL (test code = 0676950325) 21 mmol/L 23-31 L AGAP (test code = 5222246946) 10 2-16 BUN (test code = 7729935152) 28 mg/dL 7-23 H Slight hemolysis GLUCOSE (test code = 2650480823) 137 mg/dL 70-110 H CREATININE (test code = 2160-0) 0.96 mg/dL 0.50-1.04 CALCIUM (test code = 1335853389) 9.1 mg/dL 8.6-10.6 eGFR (test code = 62313-5) 61.8 mL/min/1.73m2 CKD-EPI eGFR (2020). Assuming creatinine has been stable day-to-day for at least three months, the eGFR indicates Category G2 (60 - 89 mL/min/1.73 m2) Lab Interpretation (test code = 16391-3) Abnormal [facility] RockHepatic Function Panel (76322) (ALB,T.PRO,BILI T,BU/BC,ALT,AST,ALK PHOS)2023-12-03 20:08:54* Test Item Value Reference Range Interpretation Comme nts TOTAL BILI (test code = 1124943725) 0.9 mg/dL 0.1-1.1 BILI UNCON (test code = 8686356156) 0.1 mg/dL 0.1-1.1 BILI CONJ (test code = 3749459428) 0.0 mg/dL 0.0-0.3 T PROTEIN (test code = 3038235473) 7.4 g/dL 6.3-8.2 ALBUMIN (test code = 4879100789) 3.1 g/dL 3.5-5.0 L ALK PHOS (test code = 6482589398) 141 U/L 34-122 H ALTv (test code = 1742-6) 14 U/L 5-35 AST(SGOT) (test code = 1089369416) 49 U/L 13-40 H Lab Interpretation (test cod e = 48070-9) Abnormal [facility] RockBasi Metabolic Panel (NA, K, CL, CO2, GLUCOSE, BUN, CREATININE, CA)2023-12-03 20:08:54* Test Item Value Reference Range Interpretation Comme nts NA (test code = 0826346617) 134 mmol/L 135-145 L K (test code = 3492799545) 4.9 mmol/L 3.5-5.0 Slight hemolysis CL (test code = 9665436253) 103 mmol/L 98-108 CO2 TOTAL (test code = 7902107112) 21 mmol/L 23-31 L AGAP (test code = 1267656954) 10 2-16 BUN (test code = 7268723789) 28 mg/dL 7-23 H Slight hemolysis GLUCOSE (test code = 4776011364) 137 mg/dL 70-110 H CREATININE (test code = 2160-0) 0.96 mg/dL 0.50-1.04 CALCIUM (test code = 5725037793) 9.1 mg/dL 8.6-10.6 eGFR (test code = 93424-4) 61.8 mL/min/1.73m2 CKD-EPI eGFR (2020). Assuming creatinine has been stable day-to-day for at least three months, the eGFR indicates Category G2 (60 - 89 mL/min/1.73 m2) Lab Interpretation (test code = 64637-9) Abnormal [facility] RockFibrinogen2024-09-08 16:51:45* Test Item Value Reference Range Interpretation Comme [facility] Fibrinogen (test code = 2951741940) 949 mg/dL 167-453 H Lab Interpretation (test cod e = 88896-3) Abnormal [facility] RockFibrinogen2024-09-08 16:51:45* Test Item Value Reference Range Interpretation Comme [facility] Fibrinogen (test code = 4682101877) 949 mg/dL 167-453 H Lab Interpretation (test cod e = 82707-6) Abnormal [facility] RockActivated Partial Thrmplas [id number] 16:49:04* Test Item Value Reference Range Interpretation Comme [facility] APTT Patient (test code = 3173-2) 30 26-36 Lab Interpretation (test cod e = 11549-2) Normal [facility] RockProthrombin Time / [id number] 16:49:04* Test Item Value Reference Range Interpretation Comme nts PROTIME PATIENT (test code = 5964-2) 23.7 10.1-12.6 H INR (test code = 6301-6) 2.2 Normal INR <1.1; Warfarin Therapeutic range 2.0 to 3.0 or 2.5 to 3.5, depending upon the indications. Lab Interpretation (test code = 62488-3) Abnormal [facility] RockActivated Partial Thrmplas [id number] 16:49:04* Test Item Value Reference Range Interpretation Comme nts APTT Patient (test code = 3173-2) 30 26-36 Lab Interpretation (test cod e = 32192-4) Normal [facility] RockProthrombin Time / [id number] 16:49:04* Test Item Value Reference Range Interpretation Comme nts PROTIME PATIENT (test code = 5964-2) 23.7 10.1-12.6 H INR (test code = 6301-6) 2.2 Normal INR <1.1; Warfarin Therapeutic range 2.0 to 3.0 or 2.5 to 3.5, depending upon the indications. Lab Interpretation (test code = 14894-6) Abnormal [facility] RockType and Screen - ONCE [id number] 12:41:00 * Test Item Value Reference Range Interpretation Comme nts ABO & RH (test code = 20) A POSITIVE IAT (test code = 1185) Negative [facility] RockType and Screen - ONCE [id number] 12:41:00 * Test Item Value Reference Range Interpretation Comme nts ABO & RH (test code = 20) A POSITIVE IAT (test code = 1185) Negative [facility] RockLactic Acid Whole Brxtd3175-49-02 08:18:44* Test Item Value Reference Range Interpretation Comme nts LACTIC ACID (test code = 9398688566) 1.53 mmol/L 0.50-2.20 Lab Interpretation (test cod e = 41723-9) Normal [facility] RockLactic Acid Whole [id number] 08:18:44* Test Item Value Reference Range Interpretation Comme nts LACTIC ACID (test code = 1167727171) 1.53 mmol/L 0.50-2.20 Lab Interpretation (test cod e = 41751-4) Normal [facility] RockTransthoracic echo (TTE) Psxmjii8132-99-68 18:29:05* Test Item Value Reference Range Interpretation Comme nts Height (test code = 2913276515) 67 in Weight (test code = 3708934824) 379 lbs Systolic BP (test code = 5062361960) 160 mmHg Diastolic BP (test code = 7778824435) 66 mmHg Heart Rate (test code = 5873210897) 82 bpm LVOT stroke volume (test code = 1284637226) 58.40 cm3 EF(Teich) (test code = 2832483996) 69.80 % LVIDD (test code = 1155084479) 4.10 cm LVIDS (test code = 5522928208) 2.50 cm Left Ventricular End Systolic Volume by Teichholz Method (test code = 8847088) 23.0 mL Left Ventricular End Diastolic Volume by Teichholz Method (test code = 6842763) 76.0 mL IVS (test code = 8199405463) 1.20 cm LVPWD (test code = 3097679744) 1.17 cm LVOT diameter (test code = 8701863621) 1.91 cm LVOT area (test code = 4631314543) 2.90 cm2 FS (test code = 6747213744) 39 % MV Peak E Chapo (test code = 3296871597) 125.1 cm/s E wave decelartion time (test code = 3485470955) 0.23 s LA Volume Index (BP) (test code = 9298281706) 34.4 mL/m2 LA volume (BP) (test code = 6862093652) 91.4 mL LVOT peak chapo (test code = 3768763269) 123.3 cm/s LVOT mn grad (test code = 5536916344) 3.0 mmHg BSA (test code = 9820779769) 2.7 m2 LA size (test code = 2248668351) 5.1 cm LAV(MOD-sp2) (test code = 2622890630) 90.40 mL LAV(MOD-sp4) (test code = 5661417806) 88.80 mL Tapse (test code = 5103382394) 1.13 cm Ao peak chapo (test code = 6854646579) 157.5 cm/s AV LVOT peak gradient (test code = 0379666298) 6.1 mmHg LVOT peak VTI (test code = 2791746574) 20.5 cm AV area peak chapo (test code = 7201657521) 2.2 cm2 LV V1 mean (test code = 9253376186) 80.90 cm/s Ao max PG (test code = 7049645581) 9.90 mm[Hg] MV Prop V (test code = 5055157257) 62.20 cm/s TR Peak Chapo (test code = 6112094712) 287.8 cm/s Triscuspid Valve Regurgitation Peak Gradient (test code = 0909669957) 33.1 mmHg Ao root diam (test code = 8741888714) 3.10 cm AV peak gradient (test code = 2641646440) 9.9 mmHg Aortic root (test code = 6904753899) 3.1 cm Ao root annulus (test code = 2516236202) 3.1 cm PW (test code = 9983807448) 1.17 cm 0.6-1.1 EF - 2D (test code = 77117319) 69.80 % Interventricular Septum Diastolic Thickness by 2D (test code = 2273438) 1.20 cm Radiology Study observation (narrative) (test code = 66365-9) JESSICA (test code = JESSICA) ?Left?Ventricle: Left [...] 2 mL of Patient exhibited atrial fibrillation. [facility] RETROPERITONEAL [id number] 14:55:16 RETROPERITONEAL LIMITED 11/21/2023 6:15 AM HISTORY: bilateral ureterohydronephrosis . COMPARISON:None. Correlation CT abdomen dated 11/20/2023. FINDINGS: RIGHT KIDNEY: The renal length measures 12.7 cm. Normal cortical thicknessand echotexture. Mild hydronephrosis with AP diameter of the renal pel vismeasuring 1.5 cm. No mass or stone. LEFT KIDNEY: Not clearly assessed due to significant bowel gases.[facility] Packed RBC (in units), 1 [id number] 11:09:04* Test Item Value Reference Range Interpretation Comme nts Cross Match Result (test code = 4409) Compatible ISBT Blood Type Code (test code = 205584) 6200 Unit Blood Type (test code = 4410) A Pos Unit Number (test code = 4411) [id number] Blood Expiration Date & Time (test code = 460921) [id number] Status Information (test code = 4412) Issued Product Identification (test code = 4413) Red Blood Cells Product Code (test code = 4414) [id number] Performed at [facility] B Laboratory Services - [facility] Blood [address] [place] [address]Verf Free: [phone] No. [id number] [facility] RockLactic Acid Whole [id number] 04:23:24* Test Item Value Reference Range Interpretation Comme nts LACTIC ACID (test code = 5105943967) 1.38 mmol/L 0.50-2.20 Lab Interpretation (test cod e = 06087-4) Normal [facility] RockReticulocytes [id number] 03:16:45* Test Item Value Reference Range Interpretation Comme nts RETIC Count Automated (test code = 9281268532) 1.32 % 0.51-1.90 RETIC Absolute Count (test c ode = 8708908340) 0.0478 0.0230-0.0950 IRF % (test code = 1252652225) 29.60 % 2.10-12.60 H RETIC-HE (test code = 2284690636) 25.1 pg 28.1-35.8 L Lab Interpretation (test cod e = 39409-2) Abnormal [facility] GLUCOSE (AUTOMATED)2023-11-21 01:30:47* Test Item Value Reference Range Interpretation Comme nts POCT GLU (test code = 8566439731) 129 mg/dL 70-110 H Lab Interpretation (test cod e = 12625-3) Abnormal [facility] GLUCOSE (AUTOMATED)2023-11-20 23:14:41* Test Item Value Reference Range Interpretation Comme nts POCT GLU (test code = 2649800192) 197 mg/dL 70-110 H Lab Interpretation (test cod e = 74821-5) Abnormal [facility] Glucose (AGE >30 DAYS) - Prior to Insulin Bolus Administration - See [id number] 21:25:00* Test Item Value Reference Range Interpretation Comme nts POCT Glu (age>30days) (test code = 3342) 109 mg/dL 70-110 Lab Interpretation (test cod e = 33153-2) Normal [facility] GLUCOSE (AUTOMATED)2023-11-20 21:21:42* Test Item Value Reference Range Interpretation Comme nts POCT GLU (test code = 7687512853) 109 mg/dL 70-110 Lab Interpretation (test cod e = 95397-5) Normal [facility] ABDOMEN PELVIS WO [id number] 20:39:17ORDERING PHYSICIAN: PABLO CHINCHILLA HISTORY: Peritonitis or [...] atheroscleroticcalcifications. No lymphadenopathy. Bones: No acute abnormality. [facility] with [id number] 18:35:31* Test Item Value Reference Range Interpretation [...] g/dL 31.6-35.1 L RDW-SD (test code = 33496-7) 55.5 fL 39.0-49.9 H RDW-CV (test code = 788-0) 20.8 % 12.0-15.5 H PLT (test code = 777-3) 410 166-358 H MPV (test code = 33582-4) 9.6 fL 9.5-12.9 NRBC/100 WBC (test code = 9856487287) 0.0 0.0-10.0 NRBC x10^3 (test code = 8820080236) See_Comment [Automated message] The system which generated this result transmitted reference range: 10*3/?L. The reference range was not used to interpret this result as normal/abnormal. GRAN MAT (NEUT) % (test code = 770-8) 87.7 % IMM GRAN % (test code = 0917958749) 1.10 % LYMPH % (test code = 736-9) 6.3 % MONO % (test code = 5905-5) 4.1 % EOS % (test code = 713-8) 0.4 % BASO % (test code = 706-2) 0.4 % GRAN MAT x10^3(ANC) (test code = 8003725022) 17.31 10*3/uL 1.88-7.09 H IMM GRAN x10^3 (test code = 2059381203) 0.22 10*3/uL 0.00-0.06 H LYMPH x10^3 (test code = 731-0) 1.24 10*3/uL 1.32-3.29 L MONO x10^3 (test code = 742-7) 0.81 10*3/uL 0.33-0.92 EOS x10^3 (test code = 711-2) 0.07 10*3/uL 0.03-0.39 BASO x10^3 (test code = 704-7) 0.07 10*3/uL 0.01-0.07 ELLIPTO/OVAL (test code = 19207-5) 2+ See_Comment A [Automated message] The system which generated this result transmitted reference range: (none). The reference range was not used to interpret this result as normal/abnormal. SPHEROCYTES (test code = 802-9) 1+ A BANDS (test code = 7848524492) Increased A TOXIC CHANGES (test code = 803-7) Present A Lab Interpretation (test code = 29399-3) Abnormal [facility] RockL[facility] Acid Whole [id number] 17:22:29* Test Item Value Reference Range Interpretation Comme nts LACTIC ACID (test code = 4890445850) 2.98 mmol/L 0.50-2.20 H Lab Interpretation (test cod e = 19530-6) Abnormal [facility] Consult Notes Date/Time Note Provider Source 2024-01-09 13:21:00 Associated Order(s): CONSULT ADULT PHYSICAL THERAPY Patient agreeable to working with physical therapy. Patient met semi reclined in bed, bed in lowest position, and patient's present in room . Recommend nursing staff utilize Satish Lift/Mechanical Lift to safely assist patient with mobility out of the bed or chair. PHYSICAL THERAPY EVALUATION Consult received, chart reviewed and evaluation complete this date. Patient is referred to PT for evaluation and treatment. Patient is a 73 year old female who presents to hospital for Wound infection after surgery [T81.49XA]. Discharge Recommendations: Therapy Needs and Potential: Patient would benefit from continued physical therapy services to address: decline in bed mobility decline in transfers decline in gait and/or balance decreased strength decreased range of motion decreased endurance Patient demonstrates guarded potential to improve and meet therapy goals with further physical therapy services. Patient appears motivated to improve their functional mobility and return to their previous level of function. Challenges to Home Transition: decreased safety awareness environmental barriers Equipment recommendations: Patient has or access to necessary equipment The patient would benefit from additional physical therapy post-discharge from hospital via placement in order to facilitate return to prior level of function after deconditioning due to recent decline in health. Patient requires assistance with functional mobility and ADLs at this time. Current Functional Status and/or Treatment: AM-PAC 6 Clicks (Raw Score 0=Dependent, 24=Independent; Low function Raw Score 0= Dependent, 32=Independent): Raw Score - Basic Mobility (Low Function): 15 T-Scale Score - Basic Mobility (Low Function): 23.9 Bed Mobility: Defer due to patient being unable to tolerate at this time secondary to decreased activity tolerance and pain Transfers: Defer due to patient being unable to tolerate at this time secondary to decreased activity tolerance and pain Ambulation: Defer due to patient being non-ambulatory at most recent baseline Therapeutic exercise: patient educated in Fall prevention, Relaxation/breathing techniques, and Safety awareness., instructed patient in the following: ankle pumps, toe flexion/extension, quad sets, glut sets, hip internal/external rotation, patient/caregiver instructed to perform HEP 3 times per day, 8 repetitions., patient/caregiver verbalizes understanding of instructions., and -cues provided for self pacing so as to promote proper quality of motion as well as target specific muscle groups for increased strength, -educated patient on importance of performing the HEP which consists of the above exercises 3 times a day , and -patient verbalizes understanding of instructions provided Patient was educated on the importance of calling the staff for assistance to ensure safety and to prevent injury Therapeutic Exercise above performed within treatment, 8 reps, 1 set, rest breaks provided as needed Patient educated on fall prevention strategies to reduce risks of falls. Patient educated on safe progression of activities in order to safely return to prior level of function. Patient educated on breathing techniques for improved activity tolerance and for pain management. After session, patient semi reclined in bed, bed alarm on , and present in room . Call button provided. All needs met, and nursing notified and aware. PLAN OF CARE: While in the hospital, PT will follow patient at least 2 times per week,once or twice a day, per patient's tolerance and needs. See below for complete details. Admit Date: 01/06/2024 Hospital Diagnosis:Wound infection after surgery [T81.49XA] PT Diagnosis: Difficulty walking, Weakness, Malaise/fatigue, Pain, Abnormality of gait and balance, and Joint stiffness Weight Bearing Precaution: NA General Precautions: PPE used:Gloves, General, Fall, Lines/Tubes, Head of bed 30?,IV R UE, oxygen: Room air, L UE PICC Line , Ostomy Bag LLQ Bracing/Cast present or required:N/A PMH: Past Medical [...] Location: [facility] OR LOCATION TUBAL LIGATION PRIOR LIVING SITUATION: lives with their spouse and in a twenty5mediael story house, Ramp access DME: Wheel Chair , Hospital bed, Mechanical lift Prior level of Mobility: remains bedridden Suspected ischemic or hemorraghic stroke:No Subjective: I can try Patient/Family Goals: To go to a facility where she can progress as toelrated Patient/Family verbalizes understanding of condition: Yes PAIN: -Pain Description: aching -Pain Location: right foot, left foot, and diffuse/generalized -Pain rating before treatment: 7, After treatment: 7 -Pain Management: Nursing Notified and Decreased movement aides in some pain reduction COMMUNICATION Primary Language: Congolese Able to Verbalize needs: Yes Vision:reading glasses Hearing:hard of hearing, utilizes SuperEar hearing aid device ORIENTATION/COGNITION: Oriented to: person, place, date/time, and situation Awake: Yes Alert: Yes Dizzy: No b Follows Commands: Yes 1-Step Yes Multi-Step Yes Inconsistent: No NEUROLOGICAL Light Touch: within functional limits bilateral LE, Heel to zendejas: NT Tone: Normal B LE BALANCE: Sitting: Static: NT secondary to patient being unable to tolerate at this time secondary to pain Dynamic: NT Standing: Static: NT Dynamic: NT RANGE OF MOTION: Unable to formally assess as patient unable to tolerate any touching of B LE and patient unable to move B LE fully against gravity secondary to weakness, however patient able to move B foot/toes partially against gravity STRENGTH: 1+/5 (T+), bilateral Hips/quads, 2-/5 B Foot/toes ENDURANCE: Poor+, Room air SKIN INTEGRITY: not intact, please defer to nursing note for details. PROBLEM LIST: Decline in bed mobility, Decline in gait, Decline in transfers, Decreased strength, Decreased endurance, Decreased balance, ROM deficits, Safety awareness deficits, and Pain ASSESSMENT: Patient is a 73 year old [...] head of bed elevation > 45? for 15 min. Initiate bed mobility as tolerated Treatment Plan: Therapeutic exercise, Transfer training, Balance training, Bed mobility training, Equipment needs assessment, Safety education, patient/caregiver education, Pain management, Neuromuscular Re-Education, and Functional Motor Training PATIENT EDUCATION: Patient provided with preferred teaching of verbal information on role of PT, plan of care, HEP, and fall prevention. Shows readiness to learn. Verbal instruction teaching provided. Individual is able to read and verbalizes understanding of teaching provided. Total Time Tx Codes in Minutes: 10 min Total Treatment Time in Minutes: 30 min Isrrael Hutchison PT, DPT [facility] Rehabilitation Services A physical therapy evaluation of [...] clinical presentation with unstable and unpredictable characteristics [facility] 2024-01-09 10:00:00 Associated Order(s): CONSULT VASCULAR ACCESS Vascular Access Services VAS was consulted for midline insertion. Consult has been acknowledged, and the patient's medical chart has been reviewed. Please see procedural note. [facility] [email or web address] 2024-01-09 08:20:00 Associated Order(s): CONSULT ADULT OCCUPATIONAL THERAPY OT GENERAL EVALUATION Consult received via [employer], EMR reviewed and evaluation completed 01/09/24. Patient referred to occupational therapy for evaluation and treatment secondary to wound infection in abdomen. Patient agreeable to participate in occupational therapy. Spouse present. Discharge Recommendations: Therapy Needs and Potential:- Patient would benefit from continued skilled occupational therapy services to address: Decline in basic activities of daily living, Decline in instrumental activities of daily living, Decreased strength, Decreased range of motion, Decreased endurance, and Caregiver training - Patient exhibits limited activity tolerance. Challenges to Home Transition:- Requires physical assistance for BADLS - Requires physical assistance for IADLS - Increased risk of falls - Environmental barriers Equipment Recommendations: At this time patient with all the necessary equipment at home per spouse - will continually assess as treatments continue PLAN OF CARE: At least 2x/week Precautions: Weight bearing status: N/A patient is unable to tolerate any standing at this time General: PPE Utilized: Gloves, Fall, HOB at 30 degrees, Morbid obesity, and ostomy bag Bracing: N/A Subjective: "Be careful touching my foot" Current Occupational Performance and/or Treatment: AM-PAC 6 Clicks (Raw Score 0=Dependent, 24=Independent; Low function Raw Score 0= Dependent, 32=Independent): Raw Score - Daily Activity: 8 T-Scale Score - Daily Activity: 22.87 Feeding: Maximum Assistance, requires assistance to reach onto bedside tray and reports she spills alot Grooming: Maximum Assistance, with oral care UB Bathing: Total Assistance, LB Bathing: Total Assistance, UB Dressing: Total Assistance, LB Dressing: Total Assistance, Toileting Hygiene: Total Assistance, ostomy and purewick Functional Mobility: Patient is unable to assist in rolling left to right in bed. During repositioning of L LE she required total A and a second hand from nurse to adjust towel roll underneath. Patient reports she has not been OOB in months. Patient/caregiver educated on:Role of OT in care, importance of positioning of UE's and LE's to prevent breakdown, importance of participation of ADL performance to improve functional outcome, prevention of further deconditioning and UB motion to initiate endurance improvement. Patient left semireclining in bed with call bonilla in reach. Spouse present. Please, see full evaluation below for more detail. OT EVALUATION: 73 year old female Admit date: 01/06/2024 Date of onset: 01-06-2024 Admit Diagnosis: Wound infection after surgery [T81.49XA] OT Diagnosis: Impaired BADL independence, Impaired IADL independence, Weakness, Activity intolerance, Decreased endurance, Impaired self-care mobility, and Pain PMH: Past Medical History: Diagnosis Date Paroxysmal atrial fibrillation Scoliosis PSH: Past Surgical History: Procedure Laterality Date BOWEL RESECTION N/A 12/03/2023 Surgeon: Taylor Segundo MD; Location: [facility] LOC[facility] SECTION 1985 EXPLORATORY LAPAROTOMY N/A 12/03/2023 Surgeon: Taylor Segundo MD; Location: [facility] LOC[facility] FECAL DISIMPACTION N/A 12/03/2023 Surgeon: Taylor Segundo MD; Location: [facility] LOC[facility] TUBAL LIGATION PAIN: Pain Location: all over but mostly in GARCIA feet Pain rating before treatment: 8, After treatment: 8 Pain Management: Reports taking pain meds and Repositioning Provided OCCUPATIONAL ROLES/HOME ENVIRONMENT: Home environment: Lives with spouse and Single story home. Bathroom access: No - cannot get OOB to tub or shower Bathroom setup: Combo Occupation(s): Retired Function prior to admission: Total Assistance Assistance with ADL Suspected ischemic or hemorraghic stroke patient: No Equipment prior to admission: Patient's spouse is reporting Bedside commode, Home O2 , hospital bed , Mechanical lift, Rolling Walker, Wheelchair PERFORMANCE SKILLS/FACTORS: UE Muscle Tone: bilateral WNL UE ROM: GARCIA AROM is WFL except for GARCIA shoulders are limited to 1/4 range UE Strength: hand turnstile attendant GARCIA is 3+/5 Hand dominance: right Dexterity/Coordination: bilateral Fine motor skills Intact Endurance - Sitting: Poor Standing: NT Sitting Balance - Static: NT Dynamic: NT Standing: Balance - Static NT Dynamic: NT Dizziness: No Skin Integrity: defer full skin assessment to nursing and High risk for breakdown Sensation: bilateral Intact to light touch and Patient denies numbness and tingling. Oral Motor: WFL Communication: Able to verbalize needs Yes Other: N/A Vision: WFL Yes Other: reading glasses Hearing: hearing aid(s) and hard of hearing COGNITION: Orientation: person and situation Patient is inconsistent with replies today and spouse in background reporting different information Follows Commands: 1-step Yes Multi-step Yes Inconsistencies Yes Safety Awareness/Judgment: Fair, Lacks insight to deficits, and Requires frequent cueing PROBLEM LIST: Decreased independence with ADL, Impaired postural control, Decreased functional ROM, Decreased strength/endurance for functional activity, Impaired safety awareness, and Impaired Cognition REHAB POTENTIAL/PROGNOSIS: fair PATIENT/FAMILY GOALS: "I want to be able to sit up" TREATMENT/INTERVENTION PLAN: Patient/Caregiver Education, Equipment recommendations, Daily living activities, Therapeutic exercises, and Cognitive retraining GOAL(S): By discharge, patient will increase independence in daily living skills as follows: 1 Patient will perform oral care with independence with set up of materials in bed 2. Patient will roll from left to right in bed with mod A to upper body and max A with LB with use of bed rails. 3 Patient will perform face washing with independence while in bed with set up of materials. 4 Patient will don gown while laying in bed with minimal assistance. 5 Patient will tolerate 45 degrees semichair positioning for 15 minutes without adverse event. 6 Patient will increase endurance for functional activity as evidenced by ability to sustain 20 minutes of active participation. 7 Patient/caregiver will verbalize/demonstrate understanding/proficiency in the following home programs: Compensatory techniques/adaptive strategies, Energy conservation, and General strengthening PATIENT-FAMILY TEACHING Patient and Family member provided with preferred teaching of verbal information on Positioning and Role of OT. Shows readiness to learn. Verbal instruction and Demonstration teaching provided. Individual is able to read and needs reinforcement of teaching. Enrique RochaT.R. [phone] [facility]. Total Timed Treatment Codes: 25 Min Total Treatment Time: 35 Min Patient Complexity Level High - An [...] to enable patient to complete evaluation component. Kelly Hartley OT [facility] 2024-01-08 08:41:23 Associated Order(s): CONSULT PATIENT CARE PROVIDER-ADULT Care Management Note 01/08/24 3:40 PM Patient's Desiree # [phone] said they would like to proceed with submitting referral to [facility]. Attempted to choice patient but they were not in the room (gone to CT). I told patient's Desiree # [phone] that I would be back first thing tomorrow morning ~ 8:00am to get choice from the patient and submit the referral but I requested that Aram be there to help facilitate choice because the patient has been refusing care and has a history of refusing to sign paperwork. Aram said he would be there tomorrow morning. 01/08/24 12:59 PM I reached out to Ally # [phone] with [facility] asking if they are in-network for patients insurance. She said they are. I let the patient's Desiree # [phone] know and he said he was going to tour [facility] ([address] [place] [address], [place], P: [phone]; ) SNF and let me know if they would like to move forward with them. 01/08/24 12:43 PM Patient was asleep when I entered the room. Khanh/Aram # [phone] said that the plan is to look for placement at a SNF. Aram said he doesn't have any personal preference for facility but would like to tour any facility before committing. I told Aram I could reach out to SNFs and inquire if the patient is in network for them and if they are, I could give him notice so he can tour them prior to committing. 01/08/24 8:41 AM Reason for consult - please give recommendation or opinion on: need a safe discharge plan If patient does not have an established provider for this service, please contact the provider on-call. Will attempt to speak to patient and family today regarding discharge planning and potential placement. Hammad Longoria RN, BSN Bag Washer - Perry [email or web address] [phone] [facility] 2023-12-20 09:46:00 Associated Order(s): CONSULT PHYSICAL THERAPY [...] will defer dressing changes to nursing. Liliana Veronica PT, DPT Liliana Veornica PT [facility] 2023-12-18 11:00:00 Associated Order(s): CONSULT VASCULAR ACCESS Vascular Access Services VAS was consulted for midline insertion. Per nursing the current midline is functioning properly without any complications. No need for new midline at this moment. [facility] 2023-12-15 17:42:57 Associated Order(s): CONSULT WOUND, OSTOMY, OR CONTINENCE CARE TEAM Q 6 hour dressing changes are not WOCN orders but instead bedside RN orders. Dr Garner made aware. Antoinette Abbott RN 12/15/2023 5:44 PM Antoinette Abbott RN [facility] 2023-12-14 08:59:14 Summary: WOCN- WTA Follow up [...] asked were answered. Antoinette PADILLA, RN-BC, WTA [facility] 2023-12-12 16:01:40 Associated Order(s): CONSULT CARDIOLOGY See cardio note from today. Cardio previously consulted this admission. Associated attestation - Lencho Daugherty MD - 12/12/2023 4:15 PM CDT [facility] 2023-12-12 08:58:40 Associated Order(s): CONSULT HEMATOLOGY HEMATOLOGY [...] be removed in outpatient setting. Presented to [facility] on 12/03/2023 with AMS and hollow [...] Corey Costello MD, 25 mg at 12/11/23 2257 NaCl 0.9% (NS) injection 10 mL, 10 [...] fluticasone propionate 50 mcg/actuation nasal spray 1 Reynolds, 1 Reynolds, Nasal, BID, Donna Garner MD, 1 Reynolds at 12/11/23 0840 pantoprazole (PROTONIX) EC tablet 40 mg, 40 mg, Oral, DAILY, Sukhwinder Almodovar MD, 40 mg at 12/11/23 0839 sodium chloride (OCEAN MIST NASAL) 0.65 % nasal spray 1 Reynolds, 1 Reynolds, Nasal, BID, Donna Garner MD, 1 Reynolds at 12/11/23 0840 Lidocaine (LIDOCARE) 4 % [...] 1,000 mL, 1,000 mL, IV Infusion, CONTINUOUS, oCrey Costello MD, Last Rate: 10 mL/hr at [...] resident's note for additional details. INTERNAL MEDICINE [facility] 2023-12-11 16:00:00 Associated Order(s): CONSULT VASCULAR ACCESS Vascular Access Services VAS was consulted for midline insertion. Consult has been acknowledged, and the patient's medical chart has been reviewed. Please see procedural note. [facility] 2023-12-10 11:16:00 Associated Order(s): CONSULT ADULT PHYSICAL THERAPY PT Note Duplicate Consult. PT will continue to follow. Donny Montana PT, DPT Rehabilitation Services [facility] 2023-12-10 11:07:00 Associated Order(s): CONSULT ADULT OCCUPATIONAL THERAPY 12/11/2023 OCCUPATIONAL THERAPY NOTE: Duplicate consult. Maryjane Hernandez, OTR License #[id number] Maryjane Hernandez OT [facility] [facility] 2023-12-07 09:32:00 Associated Order(s): CONSULT ADULT OCCUPATIONAL THERAPY OT GENERAL EVALUATION Consult received via [employer], EMR reviewed and evaluation completed 12/07/23. Patient [...] bilateral AROM WFL UE Strength: GARCIA hand turnstile attendant 4/5 Hand dominance: right Dexterity/Coordination: bilateral Gross [...] of skill. Muna Price, OTR, OTD Pager: [phone] Total Timed Treatment Codes: 23 Min Total [...] to enable patient to complete evaluation component. [facility] 2023-12-07 09:30:00 Associated Order(s): CONSULT ADULT PHYSICAL THERAPY Patient agreeable to working with physical therapy. Patient met semi reclined in bed. Recommend nursing staff utilize mechanical lift to safely assist patient with mobility out of the bed or chair. Pt was seen in conjunction with OT due to the complexity of her case. Pt was seen with JOCE Washington, SHAUNR. Pt will be billed for PT portion [...] Location: [facility] OR LOCATION TUBAL LIGATION Prior Living Situation: lives with [...] was unable to rate. COMMUNICATION Primary Language: Congolese Able to Verbalize needs: Yes Vision:good; no [...] Total Treatment Time in Minutes: 33 min Bonnie Burnette, SERAFIN I was present and participated throughout the session and agree with the documentation as written by the student therapist on the encounter dated 12/07/23. Angus Romero, PT, DPT [facility] Physical Therapy Rehabilitation Services A physical [...] clinical presentation with unstable and unpredictable characteristics [facility] 2023-12-05 14:51:43 Associated Order(s): CONSULT NEPHROLOGY NEPHROLOGY CONSULT NOTE Consultation requested by: Service: Trauma ICU Reason for Consultation: NAOMY Date of Service: 12/05/2023 History of Present Illness: Zarina Grier is a 73 year old female with PMHx of afib, morbid obesity, and constipation transferred from [facility] for altered mental status and found to [...] hypervolemia: with worsening CXR today but repositioned ctoe with increase in UOP, recommend to decrease [...] [facility] LOC[facility] TUBAL LIGATION No Known Allergies [...] pulmonary process. END REPORT RL: [id number] AFC: [id number] CHEST 1 VW Result Date: 12/05/2023 Impression: Endotracheal tube terminates 5.1 cm above the sera. Right internal jugular central venous catheter terminates in the right atrium, approximately 4 cm below the level of the cavoatrial junction. Stable moderate cardiomegaly without acute pulmonary process. END REPORT RL: [id number] AFC: [id number] KUB Result Date: 12/04/2023 FINDINGS/IMPRESSION: Enteric tube with tip projecting over the distal esophagus. Further advancement recommended. Residual contrast is seen within the bilateral pyelocalyceal system. Lower abdominal not included within the ricqo-fq-hezi. [id number] dated 12/04/2023 at 2:39. FINDINGS/IMPRESSION: Enteric tube seen in similar position, projecting over distal esophagus. Advancement recommended. [id number] dated 12/04/2023 at 2:40. FINDINGS/IMPRESSION: Unchanged position [...] system. Lower abdominal not included within the mtgon-yn-szfp. [id number] dated 12/04/2023 at 2:39. FINDINGS/IMPRESSION: Enteric tube seen in similar position, projecting over distal esophagus. Advancement recommended. [id number] dated 12/04/2023 at 2:40. FINDINGS/IMPRESSION: Unchanged position [...] system. Lower abdominal not included within the ybzuh-cm-qgbx. [id number] dated 12/04/2023 at 2:39. FINDINGS/IMPRESSION: Enteric tube seen in similar position, projecting over distal esophagus. Advancement recommended. [id number] dated 12/04/2023 at 2:40. FINDINGS/IMPRESSION: Unchanged position [...] Jaquez MD Nephrology and Hypertension Fellow Pager: [phone] Associated attestation - Eben Huitron MD - [...] the medical care provided. Eben Huitron MD [facility] Division of Nephrology & Hypertension NEPHROLOGY [facility] 2023-12-04 16:12:00 Associated Order(s): CONSULT WOUND, OSTOMY, OR CONTINENCE CARE TEAM [facility] Nurse Note Consult for post [...] appropriate. Michelle Alas RN 12/04/2023 4:20 PM [facility] 2023-12-04 13:48:31 Associated Order(s): CONSULT UROLOGY UROLOGY [...] N/A 12/03/2023 Surgeon: Taylor Segundo MD; Location: [facility] OR LOCATION SECTION 1985 EXPLORATORY LAPAROTOMY N/A 12/03/2023 Surgeon: Taylor Segundo MD; [facility] OR LOC[facility] FECAL DISIMPACTION N/A 12/03/2023 Surgeon: Taylor Segundo MD; Location: [facility] OR LOCATION TUBAL LIGATION No family history on file. Social History Socioeconomic History Marital status: Tobacco Use Smoking status: Former Current packs/day: 0.00 Average packs/day: 2.0 packs/day for 35.0 years (70.0 ttl pk-yrs) Types: Cigarettes Start date: 1968 Quit date: 2004 Years since quittin.7 Passive exposure: Never Smokeless [...] and digital vaginal exam preformed with nurse pellet press operator after obtaining consent from daughter. Digital vaginal [...] Theodore MD Urology Resident Pager: please page information technology advisor using [employer] Associated attestation - Pablo Light MD - 12/09/2023 12:08 PM CDT I discussed the patient with Dr. Theodore, and agree with his assessment and plan. I participated in the decision making process. UROLOGY [facility] 2023-12-04 10:44:56 Associated Order(s): CONSULT CARDIOLOGY Cardiology Consult Note Date of Service: 12/04/2023 13:09 Reason for consult: Give recs on patient with afib RVR History of Present Illness: Zarina Grier is a 73 year old female with PMHx of afib, morbid obesity, and constipation transferred from [facility] for altered mental status and found to [...] this time. She does not see a horticulture professor regularly. ROS: Per HPI Past Medical History: [...] propofoL IV infusion, 5-50 mcg/kg/min, IV Infusion, TITRATE, Elizabeth Steiner MD, Last Rate: 10.21 mL/hr at 12/04/23 [...] mL MINI-BAG, 3.375 g, IV Piggyback, Q8H Dariel PEARL Rui-Min, MD, Last Rate: 25 mL/hr at 12/04/23 [...] and management service. Steven Mancia MD, [facility] Physical Therapist, PGY 4 Associated attestation - [place] [...] need a 30-day event monitor on discharge. [facility] 2023-12-03 13:50:00 BRIEF INTERVENTIONAL RADIOLOGY CONSULT NOTE VIR consulted for evaluation of pelvic collection and image guided drainage 2/2 perforated stercoral colitis. - Recommend CT abdomen and pelvis with contrast to evaluate the extent of collection/disease process. Case and imaging discussed with IR faculty, Dr. Pierson. Please page IR for any questions. Associated attestation - Bert Pierson MD - 12/04/2023 4:29 AM CDT I, Dr. Bret Pierson, have reviewed and agree with the resident's note. VASCULAR & INTERVENTIONAL RADIOLOGY [facility] 2023-11-22 10:15:00 Associated Order(s): CONSULT ADULT PHYSICAL [...] reduction, and Repositioning Provided COMMUNICATION Primary Language: Congolese Able to Verbalize needs: Yes Vision:glasses Hearing:good; [...] min Santhosh Mustafa PT Santhosh Mustafa PT [facility] 2023-11-21 15:30:00 Associated Order(s): CONSULT ADULT OCCUPATIONAL THERAPY OT GENERAL EVALUATION Consult received via [employer], EMR reviewed and evaluation completed 11/21/23. Patient [...] commode, Tub transfer bench, and Long handled surgical garment inspector PLAN OF CARE: At least 2x/week Precautions: [...] enable patient to complete evaluation component. T [facility] - Health History and Physical Notes Date/Time Note Provider Source 2024-01-06 18:48:41 Images from the original note were not included. GENERAL SURGERY H&P NOTE Date of Service: 01/06/2024 REASON FOR CONSULT / CHIEF COMPLAINT: wound infection HISTORY OF PRESENT ILLNESS Zarina Jacobo is a 73 year old woman with PMH afib not on medication, BMI 57, severe constipation c/b stercoral colitis causing rectal perforation s/p ex lap on 12/03/23 with fecal disimpaction, Heidi's procedure, who presents with midline wound infection. Patient was very difficult while admitted, frequently refused daily dressing changes, lab work, medications. She was discharged home with home health and according to daughter, patient continued to refuse dressing changes. Her last dressing change was 3 days ago. Today she was having a "very good day" and finally allowed a dressing change. Daughter noticed "purulence" in the wound and recommended that the patient be evaluated by a doctor. The patient agreed and went to [facility] where she was transferred to [facility] for further evaluation. She denies nausea, vomiting, fevers, chills. Past Surgical History: Procedure Laterality Date BOWEL RESECTION N/A 12/03/2023 Surgeon: Taylor Segundo MD; Location: [facility] OR LOCATION SECTION 1985 EXPLORATORY LAPAROTOMY N/A 12/03/2023 Surgeon: Taylor Segundo MD; Location: [facility] OR LOCATION FECAL DISIMPACTION N/A 12/03/2023 Surgeon: Taylor Segundo MD; Location: [facility] OR LOCATION TUBAL LIGATION PHYSICAL EXAM Vitals: Vitals: 01/06/24 1835 BP: 111/55 Pulse: 106 Resp: 18 Temp: 36.8 ?C (98.2 ?F) SpO2: 97% Weight: 170.6 kg (376 lb) Height: 1.702 m (5' 7") Exam: Vitals: normotensive, mild tachycardia, afebrile General: awake, alert, appears stated age, NAD, obese HEENT: normocephalic, atraumatic Lungs: unlabored on RA Cardio: regular rate Abdomen: soft, nondistended, nontender, midline wound with good granulation tissue and fibrinous tissue in the middle of the wound that was cleaned off with gauze; healthy bleeding tissue in wound bed, no purulence; ROSA drain with dark green output, still within patient but sutures have become loose, black dot out of body; ostomy with stool in bag Extremities: full ROM, no gross movement abnormalities, bilateral pitting edema Skin: no rashes LABORATORY Normal WBC, anaemia, normal platelets RADIOLOGY No new imaging. Most recent CT A/P 12/23 with decreased postoperative air and fluid collection. ASSESSMENT Zarina Jacobo is a 73 year old woman with PMH afib not on medication, BMI 57, severe constipation c/b stercoral colitis causing rectal perforation s/p ex lap on 12/03/23 with fecal disimpaction, closure of rectal perforation, Heidi's procedure, who presents with midline wound infection in the setting of persistent refusal for dressing changes while at home. PLAN - Wound was cleaned at bedside. Healthy granulation tissue and minimal fibrinous tissue that was removed. No purulence or cellulitis. ROSA drain was removed as it is no longer holding suction and is not attached to skin. - Continue BID dressing changes. Discussed with patient that dressing changes are important for her healing. She seemed to understand. - UA for potential UTI - Empiric Zosyn for potential UTI and previous cultures growing Pseudomonas and Clostridium (wound) and Citrobacter (urine) sensitive to Zosyn - Regular diet - Restart home meds Shira Victoria MD [facility] General Surgery 01/06/2024 6:51 PM Attending Seen and examined by me and discussed with Dr Victoria on 06Jan2024. Agree with the history, exam, and medical decision making in her note that was directed and edited by me. This information was obtained from patient and daughter. They came in because of the smell of the wound for which the dressings had not been changed in some time. Difficult for the patient to do this (social determinants of health), inactive physically. Will admit for wound care. Number and Complexity of Problems Addressed Moderate - one acute illness/injury with systemic symptoms Amount and Complexity of Data Reviewed and Analysed reviewed test results Straightforward - minimal or none Risk of Complications and/or Morbidity/Mortality Moderate risk of morbidity from additional diagnostic testing or treatment, Diagnosis or treatment significantly limited by social determinants of health CPT: 13994 - Admit/Obs Moderate (at least two of problems, amount of data, and risk of complications are moderate) [facility] 2023-12-03 03:09:54 ACS SURGERY H&P Date of Service: 12/03/2023 Chief Complaint: hollow viscus perforation HPI Zarina Grier is a 73 year old female history of afib, morbid obesity, constipation who presents as transfer from [facility] for altered mental status, found to have [...] procedures): 150 min Taylor Segundo MD, PhD Cut In Station Operator Trauma, Acute Care Surgery, and Surgical Critical Care In-house Pager: [phone] [facility] 2023-11-20 17:50:40 ARNOLD TEAM ADMIT H&P DATE OF SERVICE: 11/20/2023 PCP: PATIENT DOES NOT HAVE A PCP CHIEF COMPLAINT: abdominal pain HISTORY OF PRESENT ILLNESS: Zarina Grier is a 73 year old female with PMH of scoliosis who presents as a transfer from [facility] for abdominal pain. Patient initially presented to the [facility] ED with daughter due to complaints of [...] hallucinations at this time. Daughter (Luanne Grier; [phone]) was contacted to elicit further history. Daughter [...] details. Juni Nagy MD Division of Internal Waste BalerCut In Station Operator [facility] Procedure Notes Date/Time Note Provider Source 2024-01-09 11:30:00 Vascular Access Services A bedside timeout was conducted before procedure with Anya Leal RN. An ultrasound guided, 3fr 15 cm. MIDLINE was then placed in the left basilic vein, in 1 attempt(s). Local anesthetic was used. Labs were obtained. REF#: [id number] Lot #: [id number] Exp: 07/24/2024 Kaushik Sherman RN [facility] 2023-12-11 17:00:00 Vascular Access Services A bedside timeout was conducted before procedure with Hailey Carvalho RN. An ultrasound guided, 4fr 10cm. MIDLINE was then placed in the left cephalic vein, in 1 attempt(s). Local anesthetic was not used. Labs were not obtained. REF#: [id number] Lot #: [id number] Exp: 05/24/2025 Kaushik Sherman RN [facility] 2023-12-04 20:16:40 Procedure(s): ARTERIAL LINE ARTERIAL LINE PLACEMENT Date of Service: 12/04/2023 Faculty: [place] Indication/Diagnosis: Need for HD monitoring, intubated Sterile [...] Elkins MD Trauma and Acute Care Surgery [facility] SURGERY [facility] 2023-12-04 19:58:12 Procedure(s): CENTRAL LINE CENTRAL LINE [...] Trauma and Acute Care Surgery Faculty SURGERY [facility] 2023-12-03 20:43:59 Associated Order(s): Arterial Line Arterial [...] accounted for Comments: Tegaderm CHG applied. AN-ANESTHESIOLOGY [facility] 2023-12-03 20:41:41 Associated Order(s): Intubation Intubation Date/Time: 12/03/2023 7:57 PM Urgency: elective Airway not difficult General Information and Staff Patient location during procedure: OR Performed: resident/SECOND SHIFT SUPERVISOR Performed by: Stan Izquierdo MD Authorized by: [...] gums, teeth, and nose unchanged vs. preop. [facility] Notes Date/Time Note Provider Source 2024-02-06 13:37:49 Pt appt was on 01/29. The appt was canceled. Will close this encounter. MANAGER Na Lentz RN [facility] 2024-01-26 09:15:00 Zarina Jacobo is a 73 year old female Patient daughter requesting call back to see if patient will be able to be seen in [place] due to transportation. Please contact patient daughter. Amina Lozano [facility] 2024-01-23 12:46:00 Zarina Jacobo is a 73 year old female, patient daughter calling again to see about getting her follow-up appointment moved to [place]. States there is just no way she can get her to [place]. Caller was advised that typically follow-up is only done by the team that did the surgery. Please call to advise, initial encounter from last week has not been responded to. Serenity Morin [facility] 2024-01-17 14:30:47 Zarina Jacobo Pts daughter called asking if she is able to push pts appointment back a few weeks due to no way of getting patient to and from clinic. She stated that the drive is too far and whenever th pt is needing to be transported somewhere she has to have an ambulance. She also states that she may be able to put the pt iin a wheelchair but she is not sure. She also asked if she can have her post op in [facility] instead of [place]. Please contact pts daughter and advise. DOS: 01/05 NOV: 01/29 (home) Vicky Carmichael [facility] 2024-01-16 15:38:21 TRANSITIONAL CARE MANAGEMENT ASSESSMENT 01/16/2024 Zarina Jacobo [id number] Zarina Jacobo is a 73 year old /White female was admitted on 01/06/[address] She was discharged on 01/14/24 with discharge disposition of HR- Routine Discharge. Admitting Physician: Isrrael Galindo Discharge Diagnosis: Wound infection No linked episodes TCM Ias-jmkx-jv-face outreach documentation: CM made follow up call to patient post-discharge. No answer and call went to voicemail. Two attempts made to reach patient. Discharge Assessment Chart Assessed: 01/16/24 TCM Outreach Completed: 01/16/24 Future Appointments: Cinthya Andrade RN [facility] 2024-01-16 11:27:15 CM made follow up call to patient post-discharge. CM left a message with pt's assisted living housekeeper and call back number. [facility] 2024-01-14 10:22:47 Problem: Falls, Risk of Goal: Absence of falls Outcome: Progressing as expected Problem: Infection Risk Goal: Absence of infection Outcome: Progressing as expected Problem: Pain Goal: Control of pain at or below patient's documented comfort goal Outcome: Progressing as expected Problem: Skin integrity Impaired (Risk or Actual) Goal: Wound healing Outcome: Progressing as expected Goal: Prevention of new skin breakdown Outcome: Progressing as expected Problem: Discharge Planning Goal: Adequate for discharge Outcome: Progressing as expected Goal: Effective communication Outcome: Progressing as expected Problem: Activity Intolerance Goal: Improved activity tolerance Outcome: Progressing as expected Problem: Mobility - Impaired Goal: Able to achieve maximum mobility level Outcome: Progressing as expected Ally Zuñiga RN [facility] 2024-01-14 01:02:27 Problem: Falls, Risk of Goal: Absence of falls Outcome: Progressing as expected Problem: Infection Risk Goal: Absence of infection Outcome: Progressing as expected Problem: Pain Goal: Control of pain at or below patient's documented comfort goal Outcome: Progressing as expected Problem: Skin integrity Impaired (Risk or Actual) Goal: Wound healing Outcome: Progressing as expected Goal: Prevention of new skin breakdown Outcome: Progressing as expected Problem: Discharge Planning Goal: Adequate for discharge Outcome: Progressing as expected Goal: Effective communication Outcome: Progressing as expected Problem: Activity Intolerance Goal: Improved activity tolerance Outcome: Progressing as expected Problem: Mobility - Impaired Goal: Able to achieve maximum mobility level Outcome: Progressing as expected Lozano RN [facility] 2024-01-13 09:05:20 Problem: Falls, Risk of Goal: Absence of falls Outcome: Progressing as expected Problem: Infection Risk Goal: Absence of infection Outcome: Progressing as expected Problem: Pain Goal: Control of pain at or below patient's documented comfort goal Outcome: Progressing as expected Problem: Skin integrity Impaired (Risk or Actual) Goal: Wound healing Outcome: Progressing as expected Goal: Prevention of new skin breakdown Outcome: Progressing as expected Problem: Discharge Planning Goal: Adequate for discharge Outcome: Progressing as expected Goal: Effective communication Outcome: Progressing as expected Problem: Activity Intolerance Goal: Improved activity tolerance Outcome: Progressing as expected Problem: Mobility - Impaired Goal: Able to achieve maximum mobility level Outcome: Progressing as expected Leal RN [facility] 2024-01-13 00:28:52 Problem: Falls, Risk of Goal: Absence of falls Outcome: Progressing as expected Problem: Infection Risk Goal: Absence of infection Outcome: Progressing as expected Problem: Pain Goal: Control of pain at or below patient's documented comfort goal Outcome: Progressing as expected Problem: Skin integrity Impaired (Risk or Actual) Goal: Wound healing Outcome: Progressing as expected Goal: Prevention of new skin breakdown Outcome: Progressing as expected Problem: Discharge Planning Goal: Adequate for discharge Outcome: Progressing as expected Goal: Effective communication Outcome: Progressing as expected Problem: Activity Intolerance Goal: Improved activity tolerance Outcome: Progressing as expected Problem: Mobility - Impaired Goal: Able to achieve maximum mobility level Outcome: Progressing as expected [facility] 2024-01-12 17:51:10 Problem: Falls, Risk of Goal: Absence of falls Outcome: Progressing as expected Problem: Infection Risk Goal: Absence of infection Outcome: Progressing as expected Problem: Pain Goal: Control of pain at or below patient's documented comfort goal Outcome: Progressing as expected Problem: Skin integrity Impaired (Risk or Actual) Goal: Wound healing Outcome: Progressing as expected Goal: Prevention of new skin breakdown Outcome: Progressing as expected Problem: Discharge Planning Goal: Adequate for discharge Outcome: Progressing as expected Goal: Effective communication Outcome: Progressing as expected Problem: Activity Intolerance Goal: Improved activity tolerance Outcome: Progressing as expected Problem: Mobility - Impaired Goal: Able to achieve maximum mobility level Outcome: Progressing as expected Karen Newby RN [facility] 2024-01-12 00:13:23 Problem: Falls, Risk of Goal: Absence of falls Outcome: Progressing as expected Problem: Infection Risk Goal: Absence of infection Outcome: Progressing as expected Problem: Pain Goal: Control of pain at or below patient's documented comfort goal Outcome: Progressing as expected Problem: Skin integrity Impaired (Risk or Actual) Goal: Wound healing Outcome: Progressing as expected Goal: Prevention of new skin breakdown Outcome: Progressing as expected Problem: Discharge Planning Goal: Adequate for discharge Outcome: Progressing as expected Goal: Effective communication Outcome: Progressing as expected Problem: Activity Intolerance Goal: Improved activity tolerance Outcome: Progressing as expected Problem: Mobility - Impaired Goal: Able to achieve maximum mobility level Outcome: Progressing as expected [facility] 2024-01-11 18:13:59 Problem: Falls, Risk of Goal: Absence of falls Outcome: Progressing as expected Problem: Infection Risk Goal: Absence of infection Outcome: Progressing as expected Problem: Pain Goal: Control of pain at or below patient's documented comfort goal Outcome: Progressing as expected Problem: Skin integrity Impaired (Risk or Actual) Goal: Wound healing Outcome: Progressing as expected Goal: Prevention of new skin breakdown Outcome: Progressing as expected Problem: Discharge Planning Goal: Adequate for discharge Outcome: Progressing as expected Goal: Effective communication Outcome: Progressing as expected Problem: Activity Intolerance Goal: Improved activity tolerance Outcome: Progressing as expected Problem: Mobility - Impaired Goal: Able to achieve maximum mobility level Outcome: Progressing as expected [facility] [place] 2024-01-11 04:08:35 Problem: Falls, Risk of Goal: Absence of falls Outcome: Progressing as expected Problem: Infection Risk Goal: Absence of infection Outcome: Progressing as expected Problem: Pain Goal: Control of pain at or below patient's documented comfort goal Outcome: Progressing as expected Problem: Skin integrity Impaired (Risk or Actual) Goal: Wound healing Outcome: Progressing as expected Goal: Prevention of new skin breakdown Outcome: Progressing as expected Problem: Discharge Planning Goal: Adequate for discharge Outcome: Progressing as expected Goal: Effective communication Outcome: Progressing as expected Problem: Activity Intolerance Goal: Improved activity tolerance Outcome: Progressing as expected Problem: Mobility - Impaired Goal: Able to achieve maximum mobility level Outcome: Progressing as expected Problem: Urinary Elimination - Impaired Goal: Return to baseline elimination pattern Outcome: Resolved [facility] 2024-01-10 09:00:17 Problem: Falls, Risk of Goal: Absence of falls Outcome: Progressing as expected Problem: Infection Risk Goal: Absence of infection Outcome: Progressing as expected Problem: Pain Goal: Control of pain at or below patient's documented comfort goal Outcome: Progressing as expected Problem: Skin integrity Impaired (Risk or Actual) Goal: Wound healing Outcome: Progressing as expected Goal: Prevention of new skin breakdown Outcome: Progressing as expected Problem: Discharge Planning Goal: Adequate for discharge Outcome: Progressing as expected Goal: Effective communication Outcome: Progressing as expected Problem: Activity Intolerance Goal: Improved activity tolerance Outcome: Progressing as expected Problem: Mobility - Impaired Goal: Able to achieve maximum mobility level Outcome: Progressing as expected Problem: Urinary Elimination - Impaired Goal: Return to baseline elimination pattern Outcome: Progressing as expected T [facility] 2024-01-10 05:18:17 Patient bladder scanned, >999ml in bladder. Patient educated on pressure ulcer prevention, good hygiene, keeping her perianal area clean and dry, and importance of scheduling toilet-ing/urination. Patient denies urge to urinate, patient refusing to allow staff to clean her, no evidence of learning. Patient states, "I'm of my right mind, I don't want to be touched, and I have been forcing a little pee at a time all the time, so it doesn't make sense to dry me. I am not turning, I don't want you to turn me, leave me alone." MD notified. [facility] Stephanie Chong RN [facility] 2024-01-10 02:51:37 Problem: Falls, Risk of Goal: Absence of falls Outcome: Progressing as expected Problem: Infection Risk Goal: Absence of infection Outcome: Progressing as expected Problem: Pain Goal: Control of pain at or below patient's documented comfort goal Outcome: Progressing as expected Problem: Skin integrity Impaired (Risk or Actual) Goal: Wound healing Outcome: Progressing as expected Goal: Prevention of new skin breakdown Outcome: Progressing as expected Problem: Discharge Planning Goal: Adequate for discharge Outcome: Progressing as expected Goal: Effective communication Outcome: Progressing as expected Problem: Activity Intolerance Goal: Improved activity tolerance Outcome: Progressing as expected Problem: Mobility - Impaired Goal: Able to achieve maximum mobility level Outcome: Progressing as expected Problem: Urinary Elimination - Impaired Goal: Return to baseline elimination pattern Outcome: Progressing as expected [facility] [email or web address] 2024-01-09 22:49:00 Patient bladder scanned >999ml. Dr. Arce notified and to bedside. Dr. Arce verbally ordered to straight cath and assisted with patient positioning for straight cath, unsuccessful attempt. Dr. Arce verbally ordered a MD thi attempted to place cote, unsuccessful. Patient refusing further attempts for catheter placement. Patient educated on urinary retention risk, patient verbalized understanding, no evidence of learning. Per Dr. Arce and team at bedside, unable to accurately measure urine output, instructed to continue to monitor. [facility] [email or web address] 2024-01-09 08:01:02 Problem: Falls, Risk of Goal: Absence of falls Outcome: Progressing as expected Problem: Infection Risk Goal: Absence of infection Outcome: Progressing as expected Problem: Pain Goal: Control of pain at or below patient's documented comfort goal Outcome: Progressing as expected Problem: Skin integrity Impaired (Risk or Actual) Goal: Wound healing Outcome: Progressing as expected [facility] [email or web address] 2024-01-09 02:25:03 Problem: Falls, Risk of Goal: Absence of falls Outcome: Progressing as expected Problem: Infection Risk Goal: Absence of infection Outcome: Progressing as expected Problem: Pain Goal: Control of pain at or below patient's documented comfort goal Outcome: Progressing as expected Problem: Skin integrity Impaired (Risk or Actual) Goal: Wound healing Outcome: Progressing as expected Goal: Prevention of new skin breakdown Outcome: Progressing as expected [facility] 2024-01-08 19:30:00 Pt lying in bed,awake,and refusing dressing change and colostomy care. Not in any form of CP distress and with no complaints of pain at the moment. Per patient, she wants to go to sleep and does not want to be bothered. This nurse nurse eduated patient about the importance of wound dressing change but patient still refused. Patient is also refusing CT scan. MD notified. T Pablo Slaughter RN [facility] 2024-01-08 10:57:40 Problem: Falls, Risk of Goal: Absence of falls Outcome: Progressing as expected Problem: Infection Risk Goal: Absence of infection Outcome: Progressing as expected Problem: Pain Goal: Control of pain at or below patient's documented comfort goal Outcome: Progressing as expected Problem: Skin integrity Impaired (Risk or Actual) Goal: Wound healing Outcome: Progressing as expected Goal: Prevention of new skin breakdown Outcome: Progressing as expected [facility] 2024-01-08 04:56:21 Problem: Falls, Risk of Goal: Absence of falls Outcome: Progressing as expected Problem: Infection Risk Goal: Absence of infection Outcome: Progressing as expected Problem: Pain Goal: Control of pain at or below patient's documented comfort goal Outcome: Progressing as expected Problem: Skin integrity Impaired (Risk or Actual) Goal: Wound healing Outcome: Progressing as expected Goal: Prevention of new skin breakdown Outcome: Progressing as expected [facility] 2024-01-07 16:21:15 Problem: Falls, Risk of Goal: Absence of falls Outcome: Progressing as expected Problem: Infection Risk Goal: Absence of infection Outcome: Progressing as expected Problem: Pain Goal: Control of pain at or below patient's documented comfort goal Outcome: Progressing as expected Problem: Skin integrity Impaired (Risk or Actual) Goal: Wound healing Outcome: Progressing as expected Goal: Prevention of new skin breakdown Outcome: Progressing as expected Brooklyn Colorado RN [facility] 2024-01-06 18:30:00 Patient arrived to the unit in 1115 by EMS stretcher from [facility] in [place], [place]. No family at bedside. Patient was transferred via back board to standard bed with the help of 9 staff members. Received pt with soiled blankets, pillows, towels, chucks from home. Urine and feces noted with foul odor on items. When the patient was rolled to remove the soiled linens, more foul smelling urine and actual fecal matter noted. Pt wiped down with bath wipes and clean gown placed. Noted was a skin tear on the right buttock which was charted in EPIC. Received with colostomy bag intact on the left side abdomen with scant amount of feces, soiled dressing to mid line abdomen over previous surgical incision also noted was a ROSA drain to abdomen. Drain removed by MD at bedside and abdominal dressing removed, site cleaned and new dressing applied per MD. [facility] 2024-01-01 15:06:39 TRANSITIONAL CARE MANAGEMENT ASSESSMENT 01/01/2024 Zarina Grier [id number] Zarina Grier is a 73 year old /White female was admitted on 12/03/[address] She was discharged on 12/29/23 with discharge disposition of HR- Routine Discharge. Admitting Physician: Jr Saravia Discharge Diagnosis: K63.1 Colon perforation (primary encounter diagnosis) R10.9 Abdominal pain, unspecified abdominal location I48.20 Chronic atrial fibrillation No linked episodes TCM [id number] outreach documentation: CM made follow up call to patient post-discharge. No answer and call went to voicemail. CM left a discreet message with purpose of call and CM's call back information. Two attempts made to reach patient. Future Appointments: Cinthya Andrade RN [facility] 2024-01-01 09:44:56 CM made follow up call to patient post-discharge. No answer and call went to voicemail. CM was unable to leave a voicemail or there was no option to leave a voicemail. [facility] 2023-12-28 17:44:58 Problem: Falls, Risk of Goal: [...] Outcome: Progressing as expected Nel Pierce RN [facility] 2023-12-27 17:05:09 At 1400 I removed the [...] ready to go home. Mimi Zuñiga RN [facility] 2023-12-27 10:08:12 Problem: Falls, Risk of Goal: [...] restraint-related injury Outcome: Progressing as expected T [facility] 2023-12-26 20:40:27 Problem: Falls, Risk of Goal: Absence of falls Outcome: Progressing as expected Problem: Infection Risk Goal: Absence of infection Outcome: Progressing as expected Problem: Skin integrity Impaired (Risk or Actual) Goal: Wound healing Outcome: Progressing as expected Thomas Andre RN [facility] 2023-12-26 09:38:50 Problem: Falls, Risk of Goal: [...] of restraint-related injury Outcome: Progressing as expected [facility] 2023-12-25 10:38:46 Problem: Falls, Risk of Goal: Absence of falls Outcome: Progressing as expected [facility] Hailey Carvalho RN [facility] 2023-12-25 00:32:57 Problem: Falls, Risk of Goal: [...] of cognitive ability Outcome: Progressing as expected [facility] 2023-12-24 00:56:29 Problem: Falls, Risk of Goal: [...] of cognitive ability Outcome: Progressing as expected [facility] 2023-12-23 18:14:24 Problem: Falls, Risk of Goal: [...] of restraint-related injury Outcome: Progressing as expected [facility] 2023-12-23 18:00:00 Problem: Falls, Risk of Goal: [...] Nel Pierce RN Outcome: Progressing as expected [facility] 2023-12-22 23:21:44 Problem: Falls, Risk of Goal: [...] Goal: Able to cough effectively 12/22/[id number] by Jarek Butt RN Outcome: Progressing [...] Jarek Butt RN Outcome: Progressing as expected [facility] 2023-12-22 15:59:01 Problem: Falls, Risk of Goal: Absence of falls 12/22/2023 1556 by Nel Pierce RN Outcome: Progressing as expected 12/22/2023 1554 by Nel Pierce RN Outcome: Progressing as expected Problem: Infection Risk Goal: Absence of infection 12/22/2023 1556 by Nel Pierce RN Outcome: Progressing as expected 12/22/2023 155 by Nel Pierce RN Outcome: Progressing as [...] Goal: Patent airway 12/22/2023 1556 by Nel Pierce, RN Outcome: Progressing as expected 12/22/2023 1554 by Nel Pierce RN Outcome: Progressing as expected Problem: Discharge Planning Goal: Adequate for discharge 12/22/2023 1556 by Nel Pierce RN Outcome: Progressing as expected 12/22/2023 1554 by Nel Pierce RN Outcome: Progressing as expected Goal: Effective communication 12/22/2023 1556 by Nel Pierce RN Outcome: Progressing as expected 12/22/2023 1554 by Nel Pierce, RN Outcome: Progressing as expected Problem: Mental [...] Nel Pierce RN Outcome: Progressing as expected [facility] 2023-12-21 11:59:03 Problem: Falls, Risk of Goal: [...] of restraint-related injury Outcome: Progressing as expected [facility] 2023-12-21 04:33:41 Patient refused morning labs. David BROOKS to notify. eny Riley RN [facility] 2023-12-21 00:49:48 Pt continues to refuse: ID [...] do not have order for suicide precautions. farm equipment technician remains at bedside. Room not set up for SI precautions d/t questionable need and lack of order. MD returned call and stated that primary team would not be coming to bedside to assess and that psych would be consulted to assess patient for any concerns in the morning. farm equipment technician remains at bedside and area within patients reach has been cleared of items that could cause harm. [facility] 2023-12-21 00:39:08 Problem: Falls, Risk of Goal: [...] of restraint-related injury Outcome: Progressing as expected [facility] 2023-12-20 11:33:30 Patient is still refusing to [...] on her later. The sitter is bedside. [facility] 2023-12-20 10:09:09 Problem: Falls, Risk of Goal: Absence of falls 12/20/2023 100 by Mimi Zuñiga RN Outcome: Progressing as expected 12/20/2023 1008 by Mimi Zuñiga RN Outcome: Progressing as expected Problem: Infection Risk Goal: Absence of infection 12/20/2023 1009 by Mimi Zuñiga RN Outcome: Progressing as expected 12/20/2023 1008 by Mimi Zuñiga RN Outcome: Progressing as expected Problem: Pain Goal: Control of pain at or below patient's documented comfort goal 12/20/2023 1009 by Mimi Zuñiga RN Outcome: Progressing as expected 12/20/2023 1008 by Mimi Zuñiga RN Outcome: Progressing as expected Goal: Reduction in pain sensation 12/20/2023 1009 by Mimi Zuñiga RN Outcome: Progressing as expected 12/20/2023 1008 by Mimi Zuñiga RN Outcome: Progressing as expected Problem: Skin integrity Impaired (Risk or Actual) Goal: Wound healing 12/20/2023 1009 by Mimi Zuñiga RN Outcome: Progressing as expected 12/20/2023 1008 by Mimi Zuñiga RN Outcome: Progressing as expected Goal: Prevention of new skin breakdown 12/20/2023 1009 by Mimi Zuñiga RN Outcome: Progressing as expected 12/20/2023 100 by Mimi Zuñiga RN Outcome: Progressing as expected Problem: Respiratory Function - Impaired Goal: Able to cough effectively 12/20/2023 1009 by Mimi Zuñiga RN Outcome: Progressing as expected 12/20/2023 1008 by Mimi Zuñiga RN Outcome: Progressing as expected Goal: Adequate oxygenation 12/20/2023 1009 by Mimi Zuñiga RN Outcome: Progressing as expected 12/20/2023 100 by Mimi Zuñiga RN Outcome: Progressing as expected Goal: Adequate work of breathing 12/20/2023 100 by Mimi Zuñiga RN Outcome: Progressing as expected 12/20/2023 100 by Mimi Zuñiga RN Outcome: Progressing as expected Goal: Patent airway 12/20/2023 100 by Mimi Zuñiga RN Outcome: Progressing as expected 12/20/2023 1008 by Mimi Zuñiga RN Outcome: Progressing as expected Problem: Discharge Planning Goal: Adequate for discharge 12/20/2023 100 by Mimi Zuñiga RN Outcome: Progressing as expected 12/20/2023 100 by Mimi Zuñiga RN Outcome: Progressing as expected Goal: Effective communication 12/20/2023 100 by Mimi Zuñiga RN Outcome: Progressing as expected 12/20/2023 100 by Mimi Zuñiga RN Outcome: Progressing as expected Problem: Mental Status - Impaired Goal: Able to achieve maximum level of cognitive ability 12/20/2023 1009 by Mimi Zuñiga RN Outcome: Progressing as expected 12/20/2023 100 by Mimi Zuñiga RN Outcome: Progressing as expected Problem: Restraint Use Goal: Absence of restraint indications 12/20/2023 100 by Mimi Zuñiga RN Outcome: Progressing as expected 12/20/2023 100 by Mimi Zuñiga, RN Outcome: Progressing as expected Goal: Absence of restraint-related injury 12/20/2023 100 by Mimi Zuñiga, RN Outcome: Progressing as expected 12/20/2023 1008 by Mimi Zuñiga RN Outcome: Progressing as expected T [facility] 2023-12-20 02:35:45 Problem: Falls, Risk of Goal: [...] Progressing as expected T Pablo Slaughter RN [facility] 2023-12-19 12:56:35 Problem: Falls, Risk of Goal: [...] progressing as expected Patient is refusing care. Danika Arredondo RN [facility] 2023-12-18 17:09:00 Pt is refusing to take [...] too so she left and went home. [facility] 2023-12-18 17:06:08 Problem: Falls, Risk of Goal: [...] of restraint-related injury Outcome: Progressing as expected [facility] 2023-12-17 22:01:46 Problem: Falls, Risk of Goal: [...] of restraint-related injury Outcome: Progressing as expected [facility] 2023-12-17 21:00:00 R'cd pt semi-fowlers in bed, resting comfortably, eyes closed. Pt A&O x 1, per request to allow pt to sleep due to pt not able to get proper rest at times. No noted distress, no noted discomfort. All safety measures in effect, call light in reach, at bedside, sitter in place. Will continue to monitor for any change in condition. Jarek Butt RN [facility] 2023-12-17 19:12:34 Problem: Falls, Risk of Goal: [...] of restraint-related injury Outcome: Progressing as expected Brooklyn Colorado RN [facility] 2023-12-17 05:34:28 Spoke to Surgery residents about either arranging a sitter for the patient or obtaining n order for video monitoring as RN is concerned about the patient pulling out her midline. They will discuss this with the morning team and place necessary orders afterwards, Reza Mac RN [facility] 2023-12-17 01:01:48 RN offered to change dressing twice for her wounds, pt refused each time stating she doesn't want it to done tonight. Will attempt to change it again, All wounds dressing changed, colostomy bag replaced. [facility] 2023-12-17 01:00:04 Problem: Falls, Risk of Goal: [...] restraint-related injury Outcome: Progressing as expected [facility] [employer] 2023-12-16 13:35:59 Problem: Falls, Risk of Goal: [...] cognitive ability Outcome: Progressing as expected [facility] [employer] 2023-12-16 07:21:15 Unsuccessful attempt X 2 to insert PIV d/t poor venous return site areas. MD aware of PIV need. [facility] 2023-12-16 00:47:51 Problem: Falls, Risk of Goal: [...] of restraint-related injury Outcome: Progressing as expected [facility] 2023-12-15 18:43:00 Primary nurse performed dressing change to LLQ abdominal surgical incision with Dakins solution, kerlex, abdominal pad, and foam tape. [facility] Ginette Pang RN [facility] 2023-12-15 11:27:55 Problem: Falls, Risk of Goal: [...] of restraint-related injury [facility]come: [facility] as [facility] 02:44:13 Problem: Falls, Risk of Goal: [...] of cognitive ability Outcome: Progressing as expected [employer] 2023-12-15 01:32:08 [id number] returning page by Beckie [...] vascular access can place a new line." Chary Lozano RN [facility] 2023-12-14 12:42:01 HEMATOLOGY & ONCOLOGY BRIEF UPDATE [...] Adrian Tavares MD PGY6 - Heme/Onc Fellow [facility] Dept of Hematology and Oncology HEMATOLOGY & ONCOLOGY [facility] 2023-12-14 08:55:09 Problem: Falls, Risk of Goal: [...] Outcome: Progressing as expected Dayday Leal RN [facility] 2023-12-14 02:21:17 Problem: Falls, Risk of Goal: [...] of restraint-related injury Outcome: Progressing as expected Stephanie Cortes RN [facility] 2023-12-13 11:44:13 Problem: Falls, Risk of Goal: [...] of cognitive ability Outcome: Progressing as expected [facility] 2023-12-13 06:04:16 Problem: Falls, Risk of Goal: [...] of restraint-related injury Outcome: Progressing as expected Obdulia Matt RN [facility] 2023-12-12 13:12:46 This query is intended to [...] to perforation of stercoral ulcer. To Schultz, Emergency Medicine PGY-1 12/12/2023 13:14 Is there [...] AM - Pt agitated, removing lines ON MAY with PO Seroquel, Robaxin, Tramadol, IV Dilaudid, [...] Schultz DO Emergency Medicine PGY-1 12/12/2023 13:17 T [facility] 2023-12-12 05:19:58 Problem: Falls, Risk of Goal: [...] Goal: Effective communication Outcome: Progressing as expected [facility] 2023-12-11 06:49:01 Problem: Falls, Risk of Goal: [...] Goal: Patent airway Outcome: Progressing as expected eny Monge RN [facility] 2023-12-10 08:37:18 Problem: Falls, Risk of Goal: [...] Outcome: Progressing as expected Scarlet Gaines RN [facility] 2023-12-09 23:28:17 Problem: Falls, Risk of Goal: [...] Outcome: Progressing as expected Maurisio Marie RN [facility] 2023-12-09 00:49:44 Problem: Falls, Risk of Goal: [...] Outcome: Progressing as expected Peggy Greenwood RN [facility] 2023-12-07 04:39:06 Problem: Falls, Risk of Goal: [...] Outcome: Progressing as expected Magui Mccray RN [facility] 2023-12-06 07:43:45 Problem: Falls, Risk of Goal: [...] Patent airway Outcome: Progressing as expected [facility] Alexandria Barboza RN [facility] 2023-12-06 06:07:51 Problem: Falls, Risk of Goal: [...] Goal: Patent airway Outcome: Progressing as expected [facility] 2023-12-05 09:54:55 Problem: Falls, Risk of Goal: [...] Goal: Patent airway Outcome: Progressing as expected [facility] 2023-12-04 09:24:35 Problem: Falls, Risk of Goal: [...] Outcome: Progressing as expected Génesis Giles RN [facility] 2023-12-04 03:43:42 Addendum created 12/04/23 0343 by Stan Izquierdo MD Intraprocedure Meds edited AN-ANESTHESIOLOGY [facility] 2023-12-04 03:21:10 Patient: Zarina Grier Procedure Summary Date: 12/03/23 Room / Location: [address] Anesthesia Start: 1946 Anesthesia Stop: 12/04/231 Procedures: EXPLORATORY LAPAROTOMY (Abdomen) BOWEL RESECTION (Abdomen) [...] and ventilator Hydration status: acceptable AN-ANESTHESIOLOGY ANESTHESIOLOGIST [facility] 2023-12-04 00:20:27 Daughter at bedside updated Tiffany Monique RN [facility] 2023-12-03 21:53:09 FULL OPERATIVE NOTE Date of Surgery: 12/03/2023 Faculty physician: Dr. Segundo Resident physician: Dr. Steiner, Dr. Carreon Anesthesia Type: general - GETA Pre-operative diagnosis: [...] Care Surgery, Trauma, and Surgical Critical Care [facility] 2023-12-03 19:24:42 Name/ MRN / Age / Gender: Zarina Grier, [id number] 73 year old female BMI: Estimated body [...] (Abdomen) BOWEL RESECTION (Abdomen) OR Location: [facility] Anesthesia Preop Eval (physical exam) Anesthesia Preop: Chart Review and [id number] [facility] Communication: Zarina Grier is a 73 year old female history of afib, morbid obesity, constipation who presents as transfer from [facility] for altered mental status, found to have [...] Endocrine/other ROS Negative per Chart Review Other BUDGET MANAGER Pediatric Preoperative Medication Instructions Continue taking all prescribed medications except: MATHEUS inhibitors, ARBs, diuretics, all oral diabetes medications Anticoagulant Therapy: Defer to surgeons Insulin: Take 1/2 dose the night prior to surgery. Hold on DOS. Phentermine: Alert [facility] anesthesiologist SGLT2 Inhibitors: "gliflozins" to [...] & antiemetics Recovery Plan: ICU Additional comments: T [facility] 2023-12-03 06:31:30 Name/ MRN / Age / Gender: Zarina Grier, [id number] 73 year old female BMI: Estimated body [...] (no physical exam) Anesthesia Preop: Chart Review [facility] Communication: Zarina Grier is a 73 year old female history of afib, morbid obesity, constipation who presents as transfer from [facility] for altered mental status, found to have [...] Endocrine/other ROS Negative per Chart Review Other BUDGET MANAGER Pediatric Preoperative Medication Instructions Continue taking all prescribed medications except: MATHEUS inhibitors, ARBs, diuretics, all oral diabetes medications Anticoagulant Therapy: Defer to surgeons Insulin: Take 1/2 dose the night prior to surgery. Hold on DOS. Phentermine: Alert [facility] anesthesiologist SGLT2 Inhibitors: "gliflozins" to [...] Anesthesia Plan ASA Status: 4 emergent AN-ANESTHESIOLOGY [facility] 2023-12-03 03:31:57 Report given to Chris CALLE at this time. RN's discussed POC and further recommendations for care. Clifton Marcus RN [facility] 2023-12-03 03:24:56 Waiting for gen surg to leave to transport patient [facility] 2023-12-03 03:13:16 General surgery at bedside T [facility] 2023-12-03 02:32:50 Zarina Grier is a 73 [...] surgery at this time. Rafael Juarez RN [facility] 2023-12-03 02:28:50 Gen surgery at bedside for assessment, pt placed on monitor Plan of care is OR [facility] 2023-12-03 02:15:02 Zarina Grier is a 73 year old female who presents to see the general surgery team. Pt GCS 15, gen surgery paged at [phone], and are aware of pt's arrival. Raj Pastor RN [facility] 2023-11-28 10:10:51 Paged that patient requested refill on [place]. Refilled for 7 days but patient should follow-up in clinic for further refills. Ivan Rogers MD PGY-3, Internal Medicine T [facility] 2023-11-24 11:29:55 TRANSITIONAL CARE MANAGEMENT ASSESSMENT 11/24/2023 Zarina Grier [id number] Zarina Grier is a 73 year old /White female was admitted on 11/20/[address] She was discharged on 11/23/23 with discharge disposition of HR- Routine Discharge. Admitting Physician: Stefanie Johnson Discharge Diagnosis: NAOMY 2/2 obstructive uropathy Citrobacter UTI No linked episodes TCM [id number]-face outreach documentation: Discharge Assessment Chart Assessed: 11/24/23 [...] use the medical supplies/equipment?: Yes DME Location: [address] [address] () [phone] (F) [phone] DME Other: DME List: Satish Lift Follow [...] Yes Discharge Location: Home Health location: Other ([facility]) Other Home Health location: [facility] Survey - Recognition Is there anything you would like to share about your recent hospitalization, or anyone you would like to recognize?: No Do you have any suggestions for improvement?: No Do you have any other questions or concerns at this time?: No [facility] Daisy Nelson RN [facility] 2023-11-24 11:23:51 Dtr requesting a call to [employer] as reports she's currently working. [facility] 2023-11-23 14:44:31 Problem: Procedure Routine Goal: Absence [...] Outcome: Progressing as expected Valerie Sood RN [facility] 2023-11-23 12:15:20 Problem: Procedure Routine Goal: Absence [...] Absence of falls Outcome: Progressing as expected [facility] 2023-11-22 10:27:00 Problem: Procedure Routine Goal: Absence [...] Outcome: Progressing as expected Stephanie Altamirano RN [facility] 2023-11-22 01:06:55 Problem: Procedure Routine Goal: Absence [...] Outcome: Progressing as expected Pablo Burroughs RN [facility] 2023-11-21 10:42:33 Problem: Procedure Routine Goal: Absence [...] of cognitive ability Outcome: Progressing as expected [facility] 2023-11-20 20:29:34 Problem: Procedure Routine Goal: Absence of post-procedure complications Outcome: Progressing as expected Goal: Knowledge of procedure Outcome: Progressing as expected Problem: Infection Risk Goal: Absence of infection Outcome: Progressing as expected Problem: Falls, Risk of Goal: Absence of falls Outcome: Progressing as expected Problem: Activity Intolerance Goal: Improved activity tolerance Outcome: Progressing as expected Thomas Andre RN [facility] 2023-11-20 19:00:19 Nurse Report Report given to LUC Matthews. Chief complaint, assessment findings, and orders reviewed. Plan of care discussed with both nurses. Patient/family members verbalized understanding for admission and transfer. Justina Jordan RN T Justnia Jordan RN [facility] 2023-11-20 18:49:30 Patient admitted to [facility] for diagnosis of hyperkalemia, obstructive uropathy, NAOMY, anemia, constipation, atrial fibrillation, and abdominal pain. Patient agrees to admission, discussed plan of care with patient and family. Patient is awake, alert, oriented, resp reg unlabored, color appropriate for race, PIV intact with sodium bicarb No adverse reaction to medications administered while in ED Belongings with patient to unit. [facility] 2023-11-20 18:24:39 Report given to Terrell with [facility]. Requested to recheck BGL en route. [facility] 2023-11-20 11:09:54 Pt to ED accompanied by daughter CO delusions, confusion, abd pain, and malodorous urine for 2 weeks. Denies fever. Denies dysuria. [facility] 2023-11-20 11:02:00 [facility] Emergency Department Note Patient Name: Zarina Grier Date of : 1950 73 year old female Treatment Room: Room/bed info not found Primary Care Physician: No primary care provider on file. 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 METABOLIC PANEL (56520) - Abnormal NA 131 (*) 135 - [...] CONTRAST Cbc with Diff Comp. Metabolic Panel (06559) Troponin I Lipase Urinalysis Lactic Acid Whole [...] ED Events Date/Time Event User Comments 11/20/23 110 Medical Screening Begins PABLO CHINCHILLA MD -- [...] micromoles/L) AdmissionCare documentation entered by: Pablo Chinchilla [facility], 28th edition, Copyright ? 2023 [employer] [facility] All Rights Reserved. [id number]:18:34-05:00 ED COURSE Diagnosis/Impression as of 11/20/23 170 Abdominal pain, unspecified abdominal location Hyperkalemia Obstructive uropathy NAOMY (acute kidney injury) Constipation, unspecified constipation type Anemia, unspecified type Atrial fibrillation with controlled ventricular rate Procedures: Procedures MDM: Medical Decision Making DDx incl UTI, sepsis, SBO, Colitis, appy, incarcerated hernia, PNA, ACS, dysrhythmia, et al Pt to be transferred d/t no beds at [facility] D/w pt and family to inform of going to [facility] Amount and/or Complexity of Data Reviewed Labs: ordered. Radiology: ordered. Discussion of management or test interpretation with external provider(s): D/w [facility] Admitting --> pt accepted for transfer Risk OTC drugs. Prescription drug management. Parenteral controlled substances. Flowsheet Documentation: Disposition/Condition: ED Disposition ED Disposition Transfer - [facility] to IP/Obs Condition -- Comment -- Discharge Medications: Patient's Medications No medications on file Follow-up: Electronically signed by: Pablo Chinchilla MD 11/20/231700 [facility] 2023-11-20 11:02:00 AdmissionCare Guideline: Renal Failure (Acute) [...] micromoles/L) AdmissionCare documentation entered by: Pablo Chinchilla [facility], edition, Copyright ? 2023 [employer] All Rights Reserved. [id number]:18:34-05:00 [facility]
--- NOTE | 2024-05-08 16:04 | RAD REPORT ---
EXAMINATION: US BILATERAL LOWER EXTREMITY VENOUS DOPPLER CLINICAL INDICATION: SWELLING TECHNIQUE: Complete bilateral duplex sonography of the BILATERAL lower extremity veins was performed. The examination included compression for vein patency, color Doppler imaging and flow augmentation in response to distal compression of the distal external iliac, common femoral, femoral, popliteal, t ibial, and great and small saphenous veins. COMPARISON: No prior exam. FINDINGS: Duplex sonography testing of the veins of the BILATERAL lower extremity was performed. Color flow gilson ging shows all veins to be compressible with [id number] color filling. Pulsatile and phasic flow is present within all lower extremity deep and superficial veins examined. IMPRESSION: There is no deep vein or superficial vein thrombosis.
[2024-05-08 16:48] LABS: Absolute Basophils 0.1 K/uL (0-0.5); Absolute Eosinophils 0.2 K/uL (0-0.5); Absolute Lymphocytes (CBC) 3.1 K/uL (0.7-4.9); Absolute Monocytes 0.7 K/uL (0.1-1.3); Absolute Neutrophil 10.3 K/uL (1.8-8.0); Basophils % 0.6 % (0-1.3); Eosinophils % 1.4 % (0-4.4); Hematocrit 29.8 % (36.0-45.0); Hemoglobin 9.8 g/dL (12.0-15.0); Lymphocytes % 21.7 % (15.3-44.8); MCH 29.8 pg (27.0-35.0); MCHC 32.9 g/dL (32.0-36.0); MCV 90.4 fL (80-100); MPV 8.2 fL (7.6-11.3); Monocytes % 4.9 % (3.3-12.3); Neutrophils % 71.4 % (41.7-73.7); Nucleated Red Blood Cells % 0.2 % (0-0); Platelets 419 thou/uL (152-406); Red Cell Distribution Width 18.9 % (12.1-15.2)
--- NOTE | 2024-05-08 17:10 | RAD REPORT ---
EXAMINATION: ONE VIEW CHEST XR CLINICAL INDICATION: SWELLING TECHNIQUE: Frontal chest projection is submitted. Examination is limited by patient positioning and t echnique. COMPARISON: 12/02/2023 FINDINGS: Mild interstitial pulmonary edema is seen. The heart is moderately enlarged. No displaced fractures i dentified. IMPRESSION: Mild CHF.
[2024-05-08 17:52] LABS: PT Prothrombin Time 12.3 SECONDS (9.4-12.5); PTT, Activated Partial Thromb 20.7 SECONDS (24.3-36.9); Protime INR 1.17
[2024-05-08 18:04] LABS: Albumin 2.1 g/dL (3.4-5.0); Albumin/Globulin Ratio 0.4 (1.1-1.8); Alkaline Phosphatase 93 U/L (45-117); Anion Gap 10.1 mEq/L (5.0-15.0); BUN Blood Urea Nitrogen 10 mg/dL (7-18); Bicarbonate 22 mEq/L (21-32); Bilirubin Total 0.4 mg/dL (0.2-1.0); Globulin 5.3 g/dL (2.3-3.5); Glomerular Filtration Rate 96 ml/min (=/>90); Glucose Level 103 mg/dL (74-106); NT PRO-BNP 3503 pg/mL (<450); Protein, Total 7.4 g/dL (6.4-8.2); Sodium Level 134 mEq/L (136-145)
[2024-05-08 18:05] LABS: ALT/SGPT < 14 U/L (13-56); AST/SGOT 18 U/L (15-37); Potassium 3.1 mEq/L (3.5-5.1)
[2024-05-08] MEDS ORDERED: VANCOMYCIN 1 GM/VIAL ONE (18:38)
[2024-05-08] MEDS ORDERED: ONDANSETRON 4 MG/2 ML VIAL ONE (18:39)
[2024-05-08] MEDS ORDERED: NA CHLORIDE 0.9% 250 ML ONE (18:39)
[2024-05-08] MEDS ORDERED: ACETAMINOPHEN 500 MG TAB ONE (18:39)
--- NOTE | 2024-05-08 19:06 | ER ---
Nurse's Notes [facility] Name: Gwendolyn Mercado Age: 73 yrs Sex: Female : 1950 Arrival Date: 05/08/2024 Time: 15:17 Bed 7 Private MD: Diagnosis: Pressure ulcer of buttock-infected;Acute pulmonary edema Presentation: 05/08 15:32 Chief complaint: EMS states: Family called EMS for sacral wound, pt denies pain in ph sacral area, c/o pain to legs. Coronavirus screen: Vaccine status: Patient reports receiving the 2nd dose of the covid vaccine. Ebola Screen: No symptoms or risks identified at this time. Initial Sepsis Screen: Does the patient meet any 2 criteria? No. Patient's initial sepsis screen is negative. Does the patient have a suspected source of infection? No. Patient's initial sepsis screen is negative. Risk Assessment: Do you want to hurt yourself or someone else? Patient reports no desire to harm self or others. 15:32 Method Of Arrival: EMS: [facility] 15:32 Acuity: [place] 3 ph 16:43 Onset of symptoms was May 08, 2024. ph Triage Assessment: 15:36 General: Appears in no apparent distress. obese, Behavior is cooperative, appropriate ph for age. Pain: Complains of pain in right leg and left leg. Neuro: Level of Consciousness is awake, alert, obeys commands, Oriented to person, place, situation. Cardiovascular: Capillary refill < 3 seconds in bilateral fingers Patient's skin is warm and dry. Respiratory: Airway is patent Respiratory effort is even, unlabored, Respiratory pattern is regular, symmetrical. Derm: Skin is pink, warm \T\ dry. Decubitus located on sacrum. Historical: - Allergies: 15:35 No Known Allergies; ph - PMHx: 15:35 Atrial fibrillation; bowel incontinence; Hypertensive disorder; prolapsed urethra; ph - PSHx: 15:35 section; tubal ligation; ph - Immunization history:: Adult Immunizations unknown. - Infectious Disease History:: Denies. - Social history:: Smoking status: unknown. Screenin:43 [facility] ED Fall Risk Assessment (Adult) History of falling in the last 3 months, ph including since admission No falls in past 3 months (0 pts) Confusion or Disorientation No (0 pts) Intoxicated or Sedated No (0 pts) Impaired Gait Yes (1 pt) Mobility Assist Device Used Yes (1 pt) Altered Elimination Yes (1 pt) Score/Fall Risk Level 3 or more points = High Risk Oriented to surroundings, Maintained a safe environment, Hourly rounding (assess needs \T\ fall precautionary measures) done, Used ambulatory aids as needed (educated on \T\ assisted with), Used gait belt as appropriate. Abuse screen: Denies threats or abuse. Denies injuries from another. Nutritional screening: No deficits noted. Tuberculosis screening: No symptoms or risk factors identified. Assessment: 17:46 General: SEE TRIAGE ASSESSMENT. ph 17:57 GI: Colostomy site is clean and dry. Ostomy appliance is intact. Derm: Decubitus ph located on sacrum. 18:54 Reassessment: Patient appears in no apparent distress at this time. Patient and/or ph family updated on plan of care and expected duration. Pain level reassessed. Patient is alert, oriented x 3, equal unlabored respirations, skin warm/dry/pink. Vital Signs: 15:32 BP 124 / 83; Pulse 91; Resp 18; Temp 99.4; Pulse Ox 95% on R/A; ph 17:45 BP 144 / 92; Pulse 90; Resp 18; Temp 98.9; Pulse Ox 97% on R/A; ph 18:54 BP 119 / 102; Pulse 86; Resp 18; Pulse Ox 100% on R/A; ph 21:49 BP 136 / 78; Pulse 92; Resp 18; Pulse Ox 100% ; cp4 Vitals: 17:45 Cardiac Rhythm Assessment Atrial fibrillation. ph ED Course: 15:31 Patient arrived in ED. me1 15:32 Karen Cabral, RN is Primary Nurse. ph 15:33 Yessi Holt FNP-C is PHCP. kb 15:33 Humberto Rios MD is Attending Physician. kb 15:35 Triage completed. ph 15:36 Arm band placed on Patient placed in an exam room, on a stretcher, on pulse oximetry. ph 16:02 US Extremity Venous W Compression Garcia In Process Unspecified. EDMS 16:42 Initial lab(s) drawn, by me, sent to lab. Inserted saline lock: 22 gauge in left wrist, ph using aseptic technique. Blood collected. Flushed with 10 mL NS. 16:43 Patient has correct armband on for positive identification. Bed in low position. Call ph light in reach. Side rails up X2. food and beverage assistant manager on. Pulse ox on. NIBP on. 17:01 Chest Single View XRAY In Process Unspecified. EDMS 17:46 Lab(s) recollected, by me, sent to lab. EKG done, by ED staff, reviewed by Yessi MICHAELS. 17:47 No provider procedures requiring assistance completed. ph 19:04 Prince Kahn MD is Hospitalizing Provider. kb 21:50 Provided Education on: admission. cp4 21:50 Patient admitted, IV remains in place. cp4 Administered Medications: 18:53 Drug: Ondansetron IVP 4 mg IVP once; over 2 minutes Route: IVP; Site: left wrist; ph 18:54 Follow up: Response: No adverse reaction ph 18:53 Drug: vancoMYCIN IVPB 1 grams IVPB once over 2 hrs Route: IVPB; Infused Over: 2 hrs; ph Site: left wrist; 18:53 Drug: Acetaminophen PO 1000 mg PO once Route: PO; ph 18:54 Follow up: Response: No adverse reaction ph Medication: 16:43 VIS not applicable for this client. ph Outcome: 19:05 Decision to Hospitalize by Provider. kb 21:50 Admitted to Med/surg accompanied by tech, via stretcher, room 230, with chart, cp4 21:50 Condition: stable 21:50 Instructed on the need for admit, 21:51 Patient left the ED. cp4 Signatures: Dispatcher [employer] EDMN Yessi Holt, BRANDO CHURCHILLP-Karen Cazares, RN RN Luanne Welch, RN RN [facility] Mary Lou Szymanski cp4
--- NOTE | 2024-05-08 19:06 | EDPHYS ---
Physician Documentation [facility] Name: Gwendolyn Mercado Age: 73 yrs Sex: Female : 1950 Arrival Date: 05/08/2024 Time: 15:17 Bed 7 Private MD: ED Physician Humberto Rios HPI: 05/08 18:35 This 73 yrs old Female presents to ER via EMS with complaints of Wound Check. kb 18:35 Pt is a 73 year old female who presents for pressure ulcer that been ongoing for quite kb some time with redness that started within the last few days. also reports pt's legs have been swelling for a long time, but they are getting worse as well. . Historical: - Allergies: 15:35 No Known Allergies; ph - PMHx: 15:35 Atrial fibrillation; bowel incontinence; Hypertensive disorder; prolapsed urethra; ph - PSHx: 15:35 section; tubal ligation; ph - Immunization history:: Adult Immunizations unknown. - Infectious Disease History:: Denies. - Social history:: Smoking status: unknown. ROS: 17:50 Constitutional: As per HPI kb Exam: 17:50 Constitutional: This is a well developed, well nourished patient who is awake, alert, kb and in no acute distress. Head/Face: Normocephalic, atraumatic. ENT: Moist Mucous membranes Respiratory: Respirations even and unlabored. No increased work of breathing. Talking in full sentences Neuro: Awake and alert, GCS 15, oriented to person, place, time, and situation. 17:50 Cardiovascular: Rhythm: irregularly irregular, 17:50 ECG was reviewed by the Attending Physician. Vital Signs: 15:32 BP 124 / 83; Pulse 91; Resp 18; Temp 99.4; Pulse Ox 95% on R/A; ph 17:45 BP 144 / 92; Pulse 90; Resp 18; Temp 98.9; Pulse Ox 97% on R/A; ph 18:54 BP 119 / 102; Pulse 86; Resp 18; Pulse Ox 100% on R/A; ph 21:49 BP 136 / 78; Pulse 92; Resp 18; Pulse Ox 100% ; cp4 MDM: 15:33 Medical Screening Exam initiated kb 18:28 Data reviewed: vital signs, nurses notes. kb 18:34 Differential diagnosis: cellulitis, abscess, pressure wound, dvt, pulmonary edema. kb Consideration of Admission/Observation Patient was admitted/placed on observation. Escalation of care including admission/observation considered. Management of patient was discussed with the following: Hospitalist: Dr Kahn accepts pt for admissin. Historians other than the Patient: EMS: [facility]. Counseling: I had a detailed discussion with the patient and/or guardian regarding the historical points, exam findings, and any diagnostic results supporting the discharge/admit diagnosis, lab results, radiology results, the need for further work-up and treatment in the hospital. 05/08 15:35 Order name: Blood Culture Adult (2) kb 05/08 15:35 Order name: CBC with Diff; Complete Time: 17:00 kb 05/08 15:35 Order name: CMP; Complete Time: 18:14 kb 05/08 15:35 Order name: Lactate w/ 2H reflex if indic.; Complete Time: 17:00 kb 05/08 15:35 Order name: Protime (+inr); Complete Time: 17:54 kb 05/08 15:35 Order name: Ptt, Activated; Complete Time: 17:54 kb 05/08 15:35 Order name: BNP; Complete Time: 18:14 kb 05/08 19:37 Order name: Basic Metabolic Panel EDMS 05/08 19:37 Order name: Basic Metabolic Panel EDPR 05/08 19:37 Order name: CBC with Automated Diff EDMS 05/08 19:37 Order name: CBC with Automated Diff EDMS 05/08 19:37 Order name: Lipid Profile EDMS 05/08 19:37 Order name: Lipid Profile EDMS 05/08 19:38 Order name: Magnesium EDMS 05/08 19:38 Order name: Phosphorus EDMS 05/08 15:35 Order name: Chest Single View XRAY; Complete Time: 17:15 kb 05/08 15:35 Order name: US Extremity Venous W Compression Garcia; Complete Time: 16:07 kb 05/08 15:35 Order name: EKG; Complete Time: 15:35 kb 05/08 19:38 Order name: [facility] Cons EDPR 05/08 15:35 Order name: Cardiac monitoring; Complete Time: 17:45 kb 05/08 15:35 Order name: EKG - Nurse/Tech; Complete Time: 17:45 kb 05/08 15:35 Order name: IV Saline Lock - Large Bore; Complete Time: 16:42 kb 05/08 15:35 Order name: Labs collected and sent; Complete Time: 16:42 kb 05/08 15:35 Order name: O2 Per Protocol; Complete Time: 16:42 kb 05/08 15:35 Order name: O2 Sat Monitoring; Complete Time: 16:42 kb 05/08 15:35 Order name: Vital Signs; Complete Time: 16:42 kb 05/08 16:51 Order name: Labs - recollect needed: recollect green and blue top; Complete Time: 17:45 bd EC:50 Rate is 99 beats/min. Rhythm is irregularly irregular. QRS [place] is Normal. QRS interval kb is normal at 82 msec. QT interval is prolonged at 644 msec. Administered Medications: 18:53 Drug: Ondansetron IVP 4 mg IVP once; over 2 minutes Route: IVP; Site: left wrist; ph 18:54 Follow up: Response: No adverse reaction ph 18:53 Drug: vancoMYCIN IVPB 1 grams IVPB once over 2 hrs Route: IVPB; Infused Over: 2 hrs; ph Site: left wrist; 18:53 Drug: Acetaminophen PO 1000 mg PO once Route: PO; ph 18:54 Follow up: Response: No adverse reaction ph Disposition Summary: 05/08/24 19:05 Hospitalization Ordered Notes: Hospitalization Status: Inpatient Admission kb Provider: Prince lazara Kahn Location: Telemetry/MedSurg (Inpatient) kb Condition: Stable kb Problem: new kb Symptoms: are unchanged kb Bed/Room Type: Standard Room Assignment: 230(05/08/24 20:34) [facility] Diagnosis - Pressure ulcer of buttock - infected kb - Acute pulmonary edema kb Forms: - Medication Reconciliation Form kb - SBAR form kb - Leadership Thank You Letter kb Addendum: 05/12/2024 09:40 Co-signature as Attending Physician, Humberto Rios MD I agree with the assessment and c harding plan of care. Signatures: Dispatcher [employer] Yessi Rutledge, JOY-C MANAGEMENT PLANNER-Mary Campbell Corey, MD MD cha Hall, Patricia, RN RN Kecia Edge [facility] Corrections: (The following items were deleted from the chart) 02/12 15:35 15:35 BLOOD CULTURE*+BA.LAB.BRZ ordered. EDMS EDMS 15:35 15:35 CBC+H.LAB.BRZ ordered. EDMS EDMS 15:35 15:35 COMPREHENSIVE METABOLIC PANEL+C.LAB.BRZ ordered. EDMS EDMS 15:35 15:35 LACTATE+C.LAB.BRZ ordered. EDMS EDMS 15:35 15:35 PROTIME (+INR)+COAG.LAB.BRZ ordered. EDMS EDMS 15:35 15:35 PTT, ACTIVATED+COAG.LAB.BRZ ordered. EDMS EDMS 15:35 15:35 PROBNP+C.LAB.BRZ ordered. EDMS EDMS 15:35 15:35 Extrem Venous W Compression Garcia+US.RAD.BRZ ordered. EDMS EDMS 20:34 19:05 kb kmf
[2024-05-08] MEDS ORDERED: ONDANSETRON 4 MG/2 ML VIAL IV PRN (19:33)
--- NOTE | 2024-05-08 19:44 | P.HP ---
Certification for Inpatient Patient admitted to: Inpatient With expected LOS: >2 Midnights Practitioner: I am a practitioner with admitting privileges, knowledge of patient current condition, hospital course, and medical plan of care. Services: Services provided to patient in accordance with Admission requirements found in Title 42 Section 412.3 of the Code of Federal Regulations Patient History Date of Service: 05/08/24 Reason for admission: Wound cellulitis and decompensated CHF History of Present Illness: Patient is a 73-year-old female with morbid obesity, bedbound. She was brought in to the ER due to concern for draining pressure ulcer involving the coccyx area. There is surrounding inflammation as well. Patient has been having low-grade fever at home. She is cared for by family members who noted this during routine turning. Patient also reports that she has been having bilateral lower extremity swelling for a while. During my evaluation in the ER, she had a productive cough with greenish sputum. Her chest x-ray shows concern for pulmonary edema and mild CHF. Doppler ultrasound ruled out lower extremity DVTs. Her sacral wounds were evaluated. No active drainage noted but there is an area of surrounding erythema. Wound care consulted. Social work is also been consulted for placement because family is unable to care for patient. Allergies No Known Allergies Allergy (Unverified 12/02/23 20:45) Physical Examination - Physical Exam General: Other (Morbidly obese and physically deconditioned) HEENT: Atraumatic, Normocephalic Respiratory: Diminished Cardiovascular: Regular rate/rhythm, Normal S1 S2, Edema (Mild bilateral lower extremity edema) Integumentary: Skin breakdown, Erythema Neurological: Normal speech - Studies Laboratory Data (last 24 hrs) 05/08/24 05/08/24 05/08/24 17:35 17:35 16:30 WBC 14.40 H Hgb 9.8 L Hct 29.8 L Plt Count 419 H PT 12.3 INR 1.17 APTT 20.7 L Sodium 134 L Potassium 3.1 L BUN 10 Creatinine 0.53 L Glucose 103 Total Bilirubin 0.4 AST 18 ALT < 14 Alkaline Phosphatase 93 Assessment and Plan - Problems (Diagnosis) (1) Wound cellulitis Current Visit: Yes Status: Acute (2) Decompensated heart failure Current Visit: Yes Status: Acute (3) Morbid obesity Current Visit: Yes Status: Acute (4) Bedbound Current Visit: Yes Status: Acute (5) Dietary noncompliance Current Visit: Yes Status: Acute - Plan Assessment Patient is a 73-year-old female with morbid obesity, currently bedbound. She presents with wound cellulitis involving the sacral area, draining. Additionally, she has been having bilateral lower extremity edema and productive cough. Her chest x-ray shows pulmonary edema concerning for mild CHF. Wound cellulitis Decompensated CHF Morbid obesity Plan: Will admit inpatient with telemetry Empiric antibiotics for wound cellulitis Wound care has been consulted Frequent turning Follow blood cultures, and wound culture if obtained by wound care Start patient on scheduled Lasix for decompensated CHF 2D echo ordered Monitor ins and out Cardiology consulted for possibly new onset of CHF boom worker consult for placement Patient is full code Resume rest of home medications upon reconciliation - Advance Directives Does patient have a Living Will: No Does patient have a Durable POA for Healthcare: No
[2024-05-08] MEDS: FUROSEMIDE 40 MG/4 ML VIAL IV SCH (22:53)
[2024-05-09] MEDS: BENZONATATE 100 MG CAP PO SCH (00:15)
[2024-05-09] MEDS: GUAIFENESIN 600 MG SA TAB PO SCH (00:15)
[2024-05-09] MEDS: ACETAMINOPHEN 500 MG TAB PO PRN (03:15)
[2024-05-09] MEDS: VANCOMYCIN 2 GM in NA CHLORIDE 0.9% 500 ML IVPB SCH ×2 (04:00→10:02)
[2024-05-09] MEDS: NA CHLORIDE 0.9% 500 ML ONE (05:01)
[2024-05-09] MEDS: HYDROMORPHONE HCL 1 MG/ML INJ IV PRN (05:01)
[2024-05-09] MEDS: VANCOMYCIN 1 GM/VIAL ONE (05:02)
[2024-05-09 07:55] LABS: Absolute Eosinophils 0.3 K/uL (0-0.5); Absolute Lymphocytes (CBC) 3.2 K/uL (0.7-4.9); Absolute Monocytes 0.7 K/uL (0.1-1.3); Absolute Neutrophil 7.3 K/uL (1.8-8.0); Basophils % 0.2 % (0-1.3); Eosinophils % 2.7 % (0-4.4); Hematocrit 27.6 % (36.0-45.0); Hemoglobin 8.9 g/dL (12.0-15.0); Lymphocytes % 27.9 % (15.3-44.8); MCH 29.7 pg (27.0-35.0); MCHC 32.2 g/dL (32.0-36.0); MCV 92.1 fL (80-100); MPV 7.4 fL (7.6-11.3); Neutrophils % 63.2 % (41.7-73.7); Platelets 411 thou/uL (152-406); Red Cell Distribution Width 18.7 % (12.1-15.2)
[2024-05-09 08:06] LABS: Anion Gap 7.9 mEq/L (5.0-15.0); Magnesium 1.8 mg/dL (1.6-2.4); Phosphorus 3.2 mg/dL (2.5-4.9); Potassium 2.9 mEq/L (3.5-5.1)
[2024-05-09] MEDS ORDERED: VANCOMYCIN 1 GM in NA CHLORIDE 0.9% 250 ML IVPB SCH (09:00)
[2024-05-09] MEDS: Mupirocin NASAL 2 APPL/1 GM TUBE NAS SCH (09:43)
[2024-05-09] MEDS: SPIRONOLACTONE 25 MG TABLET PO SCH (09:43)
--- NOTE | 2024-05-09 10:10 | P.PN ---
Subjective Date of Service: 05/09/24 Chief Complaint: Wound cellulitis and decompensated CHF Subjective: No new changes She is complaining that she could not sleep in the past 2 days, everybody bothers her, she wants to be left alone. She had a PICC line insertion on the right arm when she about to fall asleep this morning. She does not want want me to touch her legs or back. Review of Systems Other: Consitutional; fever(-), chills (-), rigor(-), night sweat(-), unintentional weight loss(-), malaise (-) HEENT; diplopia (-), rhinorrhea (-), epistaxis (-), otorrhea (-), otalgia (-) Respiratory; shortness of breath (+), wheezing (-), cough (+), sputum (-), pleuritic chest pain (-) Cardiovascular; chest pain (-), peripheral edema (+), paroxysmal nocturnal dyspnea (-), orthopnea (-) Gastrointestinal; nausea (-), vomiting (-), abdominal pain (-), diarrhea (-), constipation (-), melena (-), hematochezia (-) Genitourinary; urinary frequency (-), dysuria (-), urgency (-), flank pain (-), gross hematuria (-), incontinence (-) Skin; rash (-), 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 General: Morbidly obese not acutely ill looking, in no apparent distress,. HEENT: Normocephalic, atraumatic, nonicteric sclera, nonanemic conjunctive. Neck: Supple, unable to assess due to her body habitus habit. Respiratory: Normal breathing effort, clear to auscultation bilaterally, no crackles no wheezing or rhonchi. Cardiovascular: Regular rate and rhythm, S1, S2 normal, no murmur no gallop. Gastrointestinal: Normal bowel sounds, nondistended, nontender, No ascites, , No masses, no hepatosplenomegaly. Extremities : No clubbing, +2+2 peripheral edema of both lower extremity,. Integumentary: No rashes, petechia, suspected lesions. Lymphatics: No axilla or cervical lymphadenopathy. Neurology; alert awake oriented x3, no focal neurologic deficit, - Studies Laboratory Data (last 24 hrs) 05/08/24 05/08/24 05/08/24 17:35 17:35 16:30 WBC 14.40 H Hgb 9.8 L Hct 29.8 L Plt Count 419 H PT 12.3 INR 1.17 APTT 20.7 L Sodium 134 L Potassium 3.1 L BUN 10 Creatinine 0.53 L Glucose 103 Total Bilirubin 0.4 AST 18 ALT < 14 Alkaline Phosphatase 93 Assessment And Plan - Plan Patient is a 73-year-old female with morbid obesity with BMI 63, currently bedbound. She presents with wound involving the sacral area with a erythema and draining. Additionally, she has been having bilateral lower extremity edema and productive cough. Her chest x-ray shows pulmonary edema concerning for mild CHF and admitted on general medical floor 1. Possible infected pressure ulcer of the sacrum stage 2, without sepsis Will downgraded antibiotics to cefazolin 2 g every 8 hour, follow-up on wound culture culture, wound care nurse consulted, position change #2 likely pulmonary edema due to heart failure Chest x-ray on admission personally reviewed mild increase interstitial marking, proBNP significantly elevated 3000, transthoracic echocardiogram ordered, I will add 25 mg spironolactone in addition to IV furosemide, I will order respiratory pathogen panel by rapid antigen test #3 anemia of chronic disease Hemoglobin 9.8, no clinical bleeding, I will obtain an anemia study tomorrow morning DVT prophylaxis; I will order enoxaparin subcu for obesity dose
[2024-05-09] MEDS: POTASSIUM CL SA 10 MEQ TAB PO ONE ×2 (13:57→14:00)
[2024-05-09] MEDS: CEFAZOLIN SODIUM 2 GM in NA CHLORIDE 0.9% 100 ML IVPB SCH (16:35)
[2024-05-09] MEDS: ENOXAPARIN 30 MG/0.3 ML SQ SCH (19:50)
[2024-05-09] MEDS ORDERED: Levofloxacin 750mg IV 750 MG/150 ML BAG IV SCH (20:00)
--- NOTE | 2024-05-09 21:36 | CON ---
Date of Consultation: 05/09/2024 Reason For Consultation: CHF. History Of Present Illness: A 73-year-old female with morbid obesity. She came in because of draini ng pressure ulcer in her coccyx area and with bilateral lower extremity edema and significant mild sh ortness of breath. Chest x-ray showed mild CHF and there is no chest pain. No other symptoms. Past Medical History: Atrial fibrillation, hypertension, morbid obesity. Medications: Refer reconciliation sheet for detailed list. Allergies: SULFA. Family History: No premature coronary artery disease or cancer. Social History: Does not smoke or drink. Does not use any drugs. Review of Systems: All systems reviewed and they are negative except as mentioned in HPI. Physical Examination: Vital Signs: Reviewed. Head and Neck: Pupils are equal, reactive to light. No cervical lymphadenopathy. Lungs: Decreased breathing sounds with faint crackles at the bases. No accessory muscle use or musc le retraction. Heart: Irregular. No extra sounds. Abdomen: Soft. Bowel sounds positive. Extremities: Edema bilaterally that is mild. Neurologic: Alert, awake. No acute focal deficits appreciated. Lymph Nodes: No cervical or axillary lymphadenopathy. Investigations: NT proBNP is 3500. BUN is 10, creatinine 0.58, potassium 2.9, sodium 135, hemoglobi n is 8.9. Chest x-ray, mild CHF. Lower extremity venous Doppler was negative for DVT. Assessment/recommendation: 1. Congestive heart failure with mild decompensation. Echo was very poor quality, but EF appears to be normal. Recommend gentle hydration. Continue Lasix. Monitor BUN, creatinine, electrolytes, and dose Lasix daily based on her response. 2. Hypokalemia. Please replace potassium and recheck tomorrow. 3. Hypertension. Blood pressure is controlled. Thank you for the consult. SR/MODL Voice ID: [id number] Report ID: [id number]
[2024-05-10] MEDS: POTASSIUM CL SA 10 MEQ TAB PO ONE (00:17)
[2024-05-10] MEDS: POTASSIUM 25 MEQ EFFERV TAB PO ONE (01:25)
[2024-05-10 01:53] LABS: SARS-CoV-2 Antigen CONTROL BLUE LINE VIS/BG OK; SARS-CoV-2 Antigen Rapid Res Negative (Negative)
[2024-05-10 08:11] LABS: Percent Reticulocyte Count 1.48 % (0.4-2.05); RBC Red Blood Cell Count 3.32 M/uL (3.86-4.86)
--- NOTE | 2024-05-10 08:15 | ECHO ---
HEIGHT: 5 ft 2 in WEIGHT: 344 lb 12.8 oz DATE OF STUDY: 05/09/[address]: Prince Cyndy Kahn MD 2-DIMENSIONAL: YES M.MODE: YES DOPPLER: YES COLOR FLOW: YES TDS: YES PORTABLE: DEFINITY: BUBBLE STUDY: DIAGNOSIS: CONGESTIVE HEART FAILURE, ATRIAL FIBRILLATION CARDIAC HISTORY: CATHERIZATION: NO SURGERY: NO PROSTHETIC VALVE: NO PACEMAKER: NO MEASUREMENTS (cm) DIASTOLIC (NORMALS) SYSTOLIC (NORMALS) IVSd 1.4 (0.6-1.2) LA Diam 4.3 (1.9-4.0) LVEF 49% LVIDd 4.6 (3.5-5.7) LVIDs 3.5 (2.0-3.5) %FS 25% LVPWd 1.4 (0.6-1.2) Ao Diam 2.9 (2.0-3.7) 2 DIMENSIONAL ASSESSMENT: RIGHT ATRIUM: APPEARS NORMAL LEFT ATRIUM: ENLARGED RIGHT VENTRICLE: NORMAL LEFT VENTRICLE: LEFT VENTRICULAR HYPERTROPHY TRICUSPID VALVE: MILD TRICUSPID REGURGITATION MITRAL VALVE: MILD MITRAL REGURGITATION PULMONIC VALVE: NOT SEEN AORTIC VALVE: NORMAL PERICARDIAL EFFUSION: NONE AORTIC ROOT: NORMAL LEFT VENTRICULAR WALL MOTION: UNABLE TO EVALUATE DUE TO POOR WINDOWS DOPPLER/COLOR FLOW: SEE BELOW COMMENTS: 1. POOR QUALITY ECHOCARDIOGRAM 2. LEFT VENTRICULAR EJECTION FRACTION APPEARS NORMAL 3. LEFT ATRIAL ENLARGEMENT 4. MILD MITRAL REGURGITATION AND TRICUSPID REGURGITATION TECHNOLOGIST: [facility]
[2024-05-10 08:27] LABS: Anion Gap 6.7 mEq/L (5.0-15.0); Potassium 3.7 mEq/L (3.5-5.1)
[2024-05-10] MEDS: SOD FERRIC GLUC COMPLX/SUCROSE 250 MG in NA CHLORIDE 0.9% 250 ML IV SCH (10:31)
--- NOTE | 2024-05-10 13:57 | P.PN ---
Subjective Date of Service: 05/10/24 Chief Complaint: Wound cellulitis and decompensated CHF Subjective: No new changes Patient has no complaint, she states that she is doing fine, no chest pain or shortness of breath at rest, no pain at the pressure ulcer site at buttock, denied any fever or chill or nausea and vomiting Review of Systems Other: Consitutional; fever(-), chills (-), rigor(-), night sweat(-), unintentional weight loss(-), malaise (-) HEENT; diplopia (-), rhinorrhea (-), epistaxis (-), otorrhea (-), otalgia (-) Respiratory; shortness of breath (-), wheezing (-), cough (-), sputum (-), pleuritic chest pain (-) Cardiovascular; chest pain (-), peripheral edema (-), paroxysmal nocturnal dyspnea (-), orthopnea (-) Gastrointestinal; nausea (-), vomiting (-), abdominal pain (-), diarrhea (-), constipation (-), melena (-), hematochezia (-) Genitourinary; urinary frequency (-), dysuria (-), urgency (-), flank pain (-), gross hematuria (-), incontinence (-) Skin; rash (-), 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 General: Morbidly obese not acutely ill looking, in no apparent distress,. HEENT: Normocephalic, atraumatic, nonicteric sclera, nonanemic c onjunctive. Neck: Supple, unable to assess due to her body habitus habit. Respiratory: Normal breathing effort, clear to auscultation bilaterally, no crackles no wheezing or rhonchi. Cardiovascular: Regular rate and rhythm, S1, S2 normal, no murmur no gallop. Gastrointestinal: Normal bowel sounds, nondistended, nontender, No ascites, , No masses, no hepatosplenomegaly. Extremities : No clubbing, +2+2 peripheral edema of both lower extremity,. Integumentary: No rashes, petechia, suspected lesions. Lymphatics: No axilla or cervical lymphadenopathy. Neurology; alert awake oriented x3, no focal neurologic deficit, Assessment And Plan - Plan Patient is a 73-year-old female with morbid obesity with BMI 63, currently bedbound. She presents with wound involving the sacral area with a erythema and draining. Additionally, she has been having bilateral lower extremity edema and productive cough. Her chest x-ray shows pulmonary edema concerning for mild CHF and admitted on general medical floor 1. Possible infected pressure ulcer of the sacrum stage 2, without sepsis Will continue cefazolin 2 g every 8 hour, follow-up on wound culture culture, wound care nurse consulted, position change #2 pulmonary edema due to acute heart failure with preserved ejection Chest x-ray on admission mild increase interstitial marking, proBNP significantly elevated 3000, transthoracic echocardiogram showed normal left ventricular ejection fraction, no structural or valvular heart disease, will continue spironolactone and IV furosemide, tested negative for influenza A and B, COVID-19, RSV #3 atrial fibrillation with controlled ventricular response, Telemetry overnight showed atrial fibrillation, heart rate at target without AV eryn, her [id number] Vsc score of 4, no contraindication to anticoagulation, I will start her on apixaban 5 mg twice daily today #3 anemia of chronic disease with relative iron deficiency Hemoglobin stable 9-10, no clinical bleeding, iron study reviewed, I will start her on IV iron therapy DVT prophylaxis; apixaban Disposition; SNF placement per patient family request. I ordered social work coordinator consult Today
[2024-05-10] MEDS: APIXABAN 5 MG TABLET PO SCH (21:13)
[2024-05-11 08:36] LABS: Anion Gap 7.5 mEq/L (5.0-15.0); Potassium 3.5 mEq/L (3.5-5.1)
[2024-05-11] MEDS: POTASSIUM CL SA 10 MEQ TAB PO ONE (09:21)
[2024-05-11] MEDS: FUROSEMIDE 40 MG/4 ML VIAL IV SCH (09:22)
--- NOTE | 2024-05-11 10:06 | P.PN ---
Subjective Date of Service: 05/11/24 Chief Complaint: Wound cellulitis and decompensated CHF Subjective: No new changes Patient has no complaint, she states that she is doing fine, Review of Systems Other: Consitutional; fever(-), chills (-), rigor(-), night sweat(-), unintentional weight loss(-), malaise (-) HEENT; diplopia (-), rhinorrhea (-), epistaxis (-), otorrhea (-), otalgia (-) Respiratory; shortness of breath (-), wheezing (-), cough (-), sputum (-), pleuritic chest pain (-) Cardiovascular; chest pain (-), peripheral edema (-), paroxysmal nocturnal dyspnea (-), orthopnea (-) Gastrointestinal; nausea (-), vomiting (-), abdominal pain (-), diarrhea (-), constipation (-), melena (-), hematochezia (-) Genitourinary; urinary frequency (-), dysuria (-), urgency (-), flank pain (-), gross hematuria (-), incontinence (-) Skin; rash (-), 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 General: Morbidly obese not acutely ill looking, in no apparent distress,. HEENT: Normocephalic, atraumatic, nonicteric sclera, nonanemic conjunctive. Neck: Supple, unable to assess due to her body habitus habit. Respiratory: Normal breathing effort, clear to auscultation bilaterally, no crackles no wheezing or rhonchi. Cardiovascular: Regular rate and rhythm, S1, S2 normal, no murmur no gallop. Gastrointestinal: Normal bowel sounds, nondistended, nontender, No ascites, , No masses, no hepatosplenomegaly. Extremities : No clubbing, +1+1 peripheral edema of both lower extremity,. Integumentary: No rashes, petechia, suspected lesions. Lymphatics: No axilla or cervical lymphadenopathy. Neurology; alert awake oriented x3, no focal neurologic deficit, Assessment And Plan - Plan Patient is a 73-year-old female with morbid obesity with BMI 63, currently bedbound. She presents with wound involving the sacral area with a erythema and draining. Additionally, she has been having bilateral lower extr emity edema and productive cough. Her chest x-ray shows pulmonary edema concerning for mild CHF and admitted on general medical floor 1. Possible infected pressure ulcer of the sacrum stage 2, without sepsis Will continue cefazolin 2 g every 8 hour, follow-up on wound culture culture pending, wound care nurse consulted, position change #2 pulmonary edema due to acute heart failure with preserved ejection Chest x-ray on admission mild increase interstitial marking, proBNP significantly elevated 3000, transthoracic echocardiogram showed normal left ventricular ejection fraction, no structural or valvular heart disease, will continue spironolactone and IV furosemide, electrolyte reviewed today, tested negative for influenza A and B, COVID-19, RSV #3 atrial fibrillation with controlled ventricular response, Telemetry overnight showed atrial fibrillation, heart rate at target without AV eryn, her [id number] Vsc score of 4, no contraindication to anticoagulation, apixaban started on May 10 #3 anemia of chronic disease with relative iron deficiency Hemoglobin stable 9-10, no clinical bleeding, keep on on IV iron therapy DVT prophylaxis; apixaban Disposition; SNF placement per patient family request. family preservation worker consulted
[2024-05-11] MEDS: CIPROFLOXACIN HCL 500 MG TAB PO SCH (20:31)
[2024-05-12 06:26] LABS: Anion Gap 7.3 mEq/L (5.0-15.0); Potassium 3.3 mEq/L (3.5-5.1)
[2024-05-12] MEDS: POTASSIUM CL SA 10 MEQ TAB PO ONE (10:03)
--- NOTE | 2024-05-12 10:17 | P.PN ---
Subjective Date of Service: 05/12/24 Chief Complaint: Wound cellulitis and decompensated CHF Subjective: No new changes Patient has no complaint, she states that she is doing fine, the nurse at bedside patient is not cooperative with the change position and dressing change of pressure ulcer. I spoke to her on the phone yesterday. She has a diagnosis of A-fib taking apixaban, family cannot take the patient home due to home situation she need to go to [facility]. Review of Systems Other: Consitutional; fever(-), chills (-), rigor(-), night sweat(-), unintentional weight loss(-), malaise (-) HEENT; diplopia (-), rhinorrhea (-), epistaxis (-), otorrhea (-), otalgia (-) Respiratory; shortness of breath (-), wheezing (-), cough (-), sputum (-), pleuritic chest pain (-) Cardiovascular; chest pain (-), peripheral edema (-), paroxysmal nocturnal dyspnea (-), orthopnea (-) Gastrointestinal; nausea (-), vomiting (-), abdominal pain (-), diarrhea (-), constipation (-), melena (-), hematochezia (-) Genitourinary; urinary frequency (-), dysuria (-), urgency (-), flank pain (-), gross hematuria (-), incontinence (-) Skin; rash (-), pruritus (-) 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 General: Morbidly obese not acutely ill looking, in no apparent distress,. HEENT: Normocephalic, atraumatic, nonicteric sclera, nonanemic conjunctive. Neck: Supple, unable to assess due to her body habitus habit. Respiratory: Normal breathing effort, clear to auscultation bilaterally, no crackles no wheezing or rhonchi. Cardiovascular: Regular rate and rhythm, S1, S2 normal, no murmur no gallop. Gastrointestinal: Normal bowel sounds, nondistended, nontender, No ascites, , No masses, no hepatosplenomegaly. Extremities : No clubbing, +1+1 peripheral edema of both lower extremity,. Integumentary: No rashes, petechia, suspected lesions. Lymphatics: No axilla or cervical lymphadenopathy. Neurology; alert awake oriented x3, no focal neurologic deficit, Assessment And Plan - Plan Patient is a 73-year-old female with morbid obesity, atrial fibrillation on apixaban with BMI 63, currently bedbound. She presents with wound involving the sacral area with a erythema and draining. Additionally, she has been having bilateral lower extremity edema and productive cough. Her chest x-ray shows pulmonary edema concerning for mild CHF and admitted on general medical floor 1. infected pressure ulcer of the sacrum stage 2, without sepsis Will continue cefazolin 2 g every 8 hour, wound culture Gram stain gram- negative sarthak, I will add oral ciprofloxacin, wound care nurse consulted, position change, will follow final culture and sensitivity result #2 pulmonary edema due to acute heart failure with preserved ejection Chest x-ray on admission mild increase interstitial marking, proBNP significantly elevated 3000, transthoracic echocardiogram showed normal left ventricular ejection fraction, no structural or valvular heart disease, will continue spironolactone and IV furosemide, electrolyte reviewed today, tested negative for influenza A and B, COVID-19, RSV #3 atrial fibrillation with controlled ventricular response, Telemetry overnight showed atrial fibrillation, heart rate at target without AV eryn, her [id number] Vsc score of 4, no contraindication to anticoagulation, apixaban #3 anemia of chronic disease with relative iron deficiency Hemoglobin stable 9-10, no clinical bleeding, keep on on IV iron therapy DVT prophylaxis; apixaban Disposition; SNF placement per patient family request. body worker consulted
[2024-05-12] MEDS: POTASSIUM CL SA 10 MEQ TAB PO SCH (21:00)
[2024-05-12] MEDS: ZOLPIDEM TARTRATE 5 MG TABLET PO PRN (21:15)
[2024-05-13 00:37] VITALS: BMI 62.8
--- NOTE | 2024-05-13 17:32 | P.PN ---
Date of Service: 05/13/24 Subjective Awake, feeling uncomfortable, generalized pain ROS 10 point ROS as noted above, otherwise negative Physical Exam General: AAOx3, uncomfortable HEENT: mucus membranes moist, nare normal Head/Neck: Normocephalic, atraumatic, neck supple Respiratory: symmetrical chest expansion, lungs clear on ausultation, on RA Cardiac: RRR, no murmurs or gallops noted Extremities: edema present, peripheral pulses 2+, tenderness to touch Abdominal: soft on palpation, Nontender Skin: Sacrum pressure ulcer Neurological: clear speech, appropriate Vitals Reviewed Problem list Infected pressure ulcer of the sacrum stage 2, without sepsis Noncompliant with care Pulmonary edema due to acute heart failure with preserved ejection Atrial fibrillation with controlled ventricular response Anemia of chronic disease with relative iron deficiency Assessment and Plan Infected pressure ulcer of the sacrum stage 2, without sepsis Noncompliant with care -continue cefazolin and ciprofloxacin -wound culture Ecoli and proteus mirabilis -wound care nurse consulted -reposition Q2hour Pulmonary edema due to acute heart failure with preserved ejection -Chest x-ray on admission mild increase interstitial marking -proBNP significantly elevated 3000 -transthoracic echocardiogram showed normal left ventricular ejection fraction, no structural or valvular heart disease -continue spironolactone and IV furosemide -daily reviewing electrolytes- patient refused lab draw -tested negative for influenza A and B, COVID-19, RSV Atrial fibrillation with controlled ventricular response reported Telemetry overnight showed atrial fibrillation, heart rate at target without AV eryn [id number] Vsc score of 4, continue apixaban Anemia of chronic disease with relative iron deficiency -Hemoglobin had been stable -no clinical bleeding -Continue IV iron therapy DVT prophylaxis- apixaban Disposition- Pending [facility] <Kimi Curtis - Last Filed: 05/13/24 16:58> Patient was seen and examined. Events of the last 24 hours have been noted. Spoke with with KARLO regarding patient's clinical picture after evaluating and examining the patient independently. I performed a substantial part of the MDM during this patient's care today. I personally made or approved the documented management plan and acknowledge its risk of complications. I agree with the findings and documentation provided in the KARLO's notes. <Preeti Mesa - Last Filed: 06/06/24 15:01>
[2024-05-14 05:34] LABS: Absolute Basophils 0.1 K/uL (0-0.5); Absolute Eosinophils 0.2 K/uL (0-0.5); Absolute Lymphocytes (CBC) 3.2 K/uL (0.7-4.9); Absolute Monocytes 1.3 K/uL (0.1-1.3); Absolute Neutrophil 7.3 K/uL (1.8-8.0); Basophils % 0.7 % (0-1.3); Eosinophils % 1.5 % (0-4.4); Hematocrit 27.9 % (36.0-45.0); Hemoglobin 9.1 g/dL (12.0-15.0); Lymphocytes % 26.4 % (15.3-44.8); MCHC 32.5 g/dL (32.0-36.0); MCV 92.3 fL (80-100); MPV 7.1 fL (7.6-11.3); Monocytes % 10.5 % (3.3-12.3); Neutrophils % 60.9 % (41.7-73.7); Nucleated Red Blood Cells % 0.1 % (0-0); Platelets 497 thou/uL (152-406); RBC Red Blood Cell Count 3.02 M/uL (3.86-4.86); Red Cell Distribution Width 18.8 % (12.1-15.2)
[2024-05-14 05:46] LABS: AST/SGOT 11 U/L (15-37); Albumin 1.8 g/dL (3.4-5.0); Albumin/Globulin Ratio 0.3 (1.1-1.8); Alkaline Phosphatase 86 U/L (45-117); Anion Gap 6.8 mEq/L (5.0-15.0); BUN Blood Urea Nitrogen 11 mg/dL (7-18); Bicarbonate 29 mEq/L (21-32); Bilirubin Total 0.3 mg/dL (0.2-1.0); Globulin 5.5 g/dL (2.3-3.5); Glomerular Filtration Rate 94 ml/min (=/>90); Glucose Level 112 mg/dL (74-106); Potassium 3.8 mEq/L (3.5-5.1); Protein, Total 7.3 g/dL (6.4-8.2); Sodium Level 133 mEq/L (136-145)
[2024-05-14 05:49] LABS: ALT/SGPT < 14 U/L (13-56)
--- NOTE | 2024-05-14 16:40 | P.PN ---
Date of Service: 05/14/24 Subjective continues being uncomfortable and not feeling well to be repositioned or cleaned Awaiting [facility] approval ROS 10 point ROS as noted above, otherwise negative Physical Exam General: Alert and oriented x4, uncomfortable HEENT: MMM, nare normal Head/Neck: Normocephalic, atraumatic, neck supple Respiratory: symmetrical chest expansion, clear BBS, on RA Cardiac: Regular rate and rhythm, no murmurs or gallops noted, S1 S2 present Extremities: edema present, peripheral pulses 2+, tenderness to touch Abdominal: soft on palpation, Nontender, distended (obese) Skin: Sacrum pressure ulcer Neurological: clear speech, appropriate Vitals Reviewed Problem list Infected pressure ulcer of the sacrum stage 2, without sepsis Noncompliant with care Pulmonary edema due to acute heart failure with preserved ejection Atrial fibrillation with controlled ventricular response Anemia of chronic disease with relative iron deficiency Assessment and Plan Infected pressure ulcer of the sacrum stage 2, without sepsis Noncompliant with care -continue PO ciprofloxacin, stopped ancef -wound culture Ecoli and proteus mirabilis -wound care nurse consulted -reposition Q2hour Pulmonary edema due to acute heart failure with preserved ejection -Chest x-ray on admission mild increase interstitial marking -proBNP significantly elevated 3000 -transthoracic echocardiogram showed normal left ventricular ejection fraction, no structural or valvular heart disease -continue spironolactone and IV furosemide -tested negative for influenza A and B, COVID-19, RSV Atrial fibrillation with controlled ventricular response reported Telemetry overnight showed atrial fibrillation, heart rate at target without AV reyn [id number] Vsc score of 4, continue apixaban Anemia of chronic disease with relative iron deficiency -H/H 9.1/27.9 -no clinical bleeding -Continue IV iron therapy DVT prophylaxis- apixaban Disposition- Pending [facility] <Kimi Curtis - Last Filed: 05/14/24 16:16> Patient was seen and examined. Events of the last 24 hours have been noted. Spoke with with KARLO regarding patient's clinical picture after evaluating and examining the patient independently. I performed a substantial part of the MDM during this patient's care today. I personally made or approved the documented management plan and acknowledge its risk of complications. I agree with the findings and documentation provided in the KARLO's notes. <Preeti Mesa - Last Filed: 06/06/24 15:01>
[2024-05-14 22:02] VITALS: O2SAT 96
[2024-05-15] MEDS: MORPHINE 2 MG/ML SYR IV ONE ×2 (03:40→18:43)
--- NOTE | 2024-05-15 09:59 | P.PN ---
Date of Service: 05/15/24 Subjective Awake, feeling better this morning, communicating well Awaiting [facility] approval ROS 10 point ROS as noted above, otherwise negative Physical Exam General: AAO x4, NAD HEENT: MMM, nare normal Head/Neck: Normocephalic, atraumatic, neck supple Respiratory: nonlabored breathing, on RA Cardiac: RRR, no murmurs or gallops noted, S1 S2 present Extremities: edema present, peripheral pulses 2+, tenderness to touch Abdominal: soft on palpation, Nontender, distended (obese) Skin: Sacrum pressure ulcer Neurological: clear speech, appropriate Vitals Reviewed Problem list Infected pressure ulcer of the sacrum stage 2, without sepsis Noncompliant with care Pulmonary edema due to acute heart failure with preserved ejection Atrial fibrillation with controlled ventricular response Anemia of chronic disease with relative iron deficiency Assessment and Plan Infected pressure ulcer of the sacrum stage 2, without sepsis Noncompliant with care -Stopped PO ciprofloxacin, stopped ancef, added IV rocephin per sensitivity ) -wound culture Ecoli and proteus mirabilis -wound care nurse consulted -Wound care-Cleanse with Vashe, packe wound with vashe moistened gauze, silvina gauze and foam daily, off loading and repositioning Q2 hour -reposition Q2hour Pulmonary edema due to acute heart failure with preserved ejection -Chest x-ray on admission mild increase interstitial marking -proBNP significantly elevated 3000 -transthoracic echocardiogram showed normal left ventricular ejection fraction, no structural or valvular heart disease -continue spironolactone and IV furosemide -tested negative for influenza A and B, COVID-19, RSV Atrial fibrillation with controlled ventricular response -reported Telemetry overnight showed atrial fibrillation, heart rate at target without AV eryn -[id number] Vsc score of 4, continue apixaban Anemia of chronic disease with relative iron deficiency -H/H stable -no clinical bleeding -Continue IV iron therapy DVT prophylaxis- apixaban Disposition- Pending [facility] <Kimi Curtis - Last Filed: 05/15/24 10:00> Patient was seen and examined. Events of the last 24 hours have been noted. Spoke with with KARLO regarding patient's clinical picture after evaluating and examining the patient independently. I performed a substantial part of the MDM during this patient's care today. I personally made or approved the documented management plan and acknowledge its risk of complications. I agree with the findings and documentation provided in the KARLO's notes. <Preeti Mesa - Last Filed: 06/06/24 15:01>
[2024-05-15] MEDS: CEFTRIAXONE 1,000 MG in NA CHLORIDE 0.9% 50 ML IVPB SCH (10:28)
[2024-05-16] MEDS: MORPHINE 2 MG/ML SYR IV PRN ×2 (02:58→18:17)
[2024-05-16] MEDS: MORPHINE 2 MG/ML SYR IV ONE ×2 (13:45→14:59)
--- NOTE | 2024-05-16 13:50 | P.PN ---
Date of Service: 05/16/24 Subjective Awake, feeling better this morning, communicating well Awaiting [facility] approval ROS 10 point ROS as noted above, otherwise negative Physical Exam General: AAO x4, NAD HEENT: MMM, nare normal Head/Neck: Normocephalic, atraumatic, neck supple Respiratory: nonlabored breathing, on RA Cardiac: RRR, no murmurs or gallops noted, S1 S2 present Extremities: edema present, peripheral pulses 2+, tenderness to touch Abdominal: soft on palpation, Nontender, distended (obese) Skin: Sacrum pressure ulcer Neurological: clear speech, appropriate Vitals Reviewed Problem list Infected pressure ulcer of the sacrum stage 2, without sepsis Noncompliant with care Pulmonary edema due to acute heart failure with preserved ejection Atrial fibrillation with controlled ventricular response Anemia of chronic disease with relative iron deficiency Assessment and Plan Infected pressure ulcer of the sacrum stage 2, without sepsis Noncompliant with care -Stopped PO ciprofloxacin, stopped ancef, added IV rocephin per sensitivity ) -wound culture Ecoli and proteus mirabilis -wound care nurse consulted -Wound care-Cleanse with Vashe, packe wound with vashe moistened gauze, silvina gauze and foam daily, off loading and repositioning Q2 hour -reposition Q2hour Pulmonary edema due to acute heart failure with preserved ejection -Chest x-ray on admission mild increase interstitial marking -proBNP significantly elevated 3000 -transthoracic echocardiogram showed normal left ventricular ejection fraction, no structural or valvular heart disease -continue spironolactone and IV furosemide -tested negative for influenza A and B, COVID-19, RSV Atrial fibrillation with controlled ventricular response -reported Telemetry overnight showed atrial fibrillation, heart rate at target without AV eryn -[id number] Vsc score of 4, continue apixaban Anemia of chronic disease with relative iron deficiency -H/H stable -no clinical bleeding -Continue IV iron therapy DVT prophylaxis- apixaban Disposition- Pending [facility]
--- NOTE | 2024-05-16 13:58 | P.DS ---
Admission Date: 05/08/24 Discharge Date: 05/16/24 Disposition: TRANSFER TO LONGTERM Discharge Condition: GOOD Reason for Admission: Wound cellulitis and decompensated CHF Brief History of Present Illness: Diagnosis Infected pressure ulcer of the sacrum stage 2, without sepsis Noncompliant with care Pulmonary edema due to acute heart failure with preserved ejection Atrial fibrillation with controlled ventricular response Anemia of chronic disease with relative iron deficiency HPI 05/08/24 Patient is a 73-year-old female with morbid obesity, bedbound. She was brought in to the ER due to concern for draining pressure ulcer involving the coccyx area. There is surrounding inflammation as well. Patient has been having low-grade fever at home. She is cared for by family members who noted this during routine turning. Patient also reports that she has been having bilateral lower extremity swelling for a while. During my evaluation in the ER, she had a productive cough with greenish sputum. Her chest x-ray shows concern for pulmonary edema and mild CHF. Doppler ultrasound ruled out lower extremity DVTs. Her sacral wounds were evaluated. No active drainage noted but there is an area of surrounding erythema. Wound care consulted. Social work is also been consulted for placement because family is unable to care for patient. Hospital Course: Patient was admitted and treated for the following diagnoses Infected pressure ulcer of the sacrum stage 2, without sepsis Noncompliant with care -Tolerated IV antibiotics -Wound care provided-Cleanse with Vashe, packe wound with vashe moistened gauze, silvina gauze and foam daily, off loading and repositioning Q2 hour Pulmonary edema due to acute heart failure with preserved ejection -Chest x-ray on admission mild increase interstitial marking -proBNP significantly elevated 3000 -transthoracic echocardiogram showed normal left ventricular ejection fraction, no structural or valvular heart disease -Tolerated and improved with spironolactone and IV furosemide -negative for influenza A and B, COVID-19, RSV Atrial fibrillation with controlled ventricular response -tolerated apixaban -Follow up outpatient Anemia of chronic disease with relative iron deficiency -stable H/H this admission -tolerated IV iron therapy 03/28/2024, Gwendolyn was seen on morning rounds and deemed hemodynamically stable for discharge to [facility]. Spironolactone, Eliquis, Sharath, potassium, Tessalon Perles called into the pharmacy. Will continue Rocephin IV til 05/23/24. Follow-up with PCP in 1 to 2 weeks. Physical Exam General: Alert and oriented x4, NAD, conversing well Respiratory: nonlabored breathing, on RA Cardiac: RRR, no murmurs or gallops noted, S1 S2 present Extremities: edema present, peripheral pulses 2+, tenderness to touch Abdominal: soft and Nontender on palpation, distended (obese) Skin: Sacrum pressure ulcer Neurological: clear speech, appropriate Vital Signs/Physical Exam: Temp Pulse Resp BP Pulse Ox 97.5 F 75 14 130/69 98 05/16/24 11:58 05/16/24 11:58 05/16/24 11:58 05/16/24 04:00 05/16/24 11:58 Other Physical/Emotional Findings: - Physical Exam limited due to patient in cooperation. General: Morbidly obese not acutely ill looking, in no apparent distress,. HEENT: Normocephalic, atraumatic, nonicteric sclera, nonanemic conjunctive. Neck: Supple, unable to assess due to her body habitus habit. Respiratory: Normal breathing effort, clear to auscultation bilaterally, no crackles no wheezing or rhonchi. Cardiovascular: Regular rate and rhythm, S1, S2 normal, no murmur no gallop. Gastrointestinal: Normal bowel sounds, nondistended, nontender, No ascites, , No masses, no hepatosplenomegaly. Extremities : No clubbing, +1+1 peripheral edema of both lower extremity,. Integumentary: No rashes, petechia, suspected lesions. Lymphatics: No axilla or cervical lymphadenopathy. Neurology; alert awake oriented x3, no focal neurologic deficit, Laboratory Data at Discharge: WBC 12.00 thou/uL (4.3-10.9) H 05/14/24 05:12 Hgb 9.1 g/dL (12.0-15.0) L 05/14/24 05:12 Hct 27.9 % (36.0-45.0) L 05/14/24 05:12 Plt Count 497 thou/uL (152-406) H 05/14/24 05:12 PT 12.3 SECONDS (9.4-12.5) 05/08/24 17:35 INR 1.17 05/08/24 17:35 APTT 20.7 SECONDS (24.3-36.9) L 05/08/24 17:35 Sodium 133 mEq/L (136-145) L 05/14/24 05:12 Potassium 3.8 mEq/L (3.5-5.1) 05/14/24 05:12 BUN 11 mg/dL (7-18) 05/14/24 05:12 Creatinine 0.60 mg/dL (0.55-1.02) 05/14/24 05:12 Glucose 112 mg/dL (74-106) H 05/14/24 05:12 Phosphorus 3.2 mg/dL (2.5-4.9) 05/09/24 07:30 Magnesium 1.8 mg/dL (1.6-2.4) 05/09/24 07:30 Total Bilirubin 0.3 mg/dL (0.2-1.0) 05/14/24 05:12 AST 11 U/L (15-37) L 05/14/24 05:12 ALT < 14 U/L (13-56) 05/14/24 05:12 Alkaline Phosphatase 86 U/L (45-117) 05/14/24 05:12 Triglycerides 91 mg/dL (<150) 05/09/24 07:30 Cholesterol 140 mg/dL (<200) 05/09/24 07:30 HDL Cholesterol 35 mg/dL (40-60) L 05/09/24 07:30 Cholesterol/HDL Ratio 4.00 05/09/24 07:30 Home Medications: Acetaminophen [Tylenol Extra Strength] 500 mg PO DAILYPRN PRN 05/09/24 Guaifenesin [Mucinex] 1 tab PO BIDP PRN 05/09/24 Apixaban [Eliquis] 5 mg PO BID 05/11/24 Sucralfate [Carafate*] 1 gm PO ACHS 05/11/24 Apixaban [Eliquis] 5 mg PO BID #60 tab 05/16/24 Benzonatate [Tessalon Perle*] 100 mg PO TID #30 cap 05/16/24 Sharath [Sharath*] 1 pkt PO BID #60 packet 05/16/24 Potassium Oral Tab [Klor-Con 10 mEq Tab*] 20 meq PO BID #60 tab 05/16/24 Spironolactone [Aldactone*] 25 mg PO DAILY #30 tab 05/16/24 New Medications: Spironolactone [Aldactone*] 25 mg PO DAILY #30 tab Apixaban [Eliquis] 5 mg PO BID #60 tab Sharath [Sharath*] 1 pkt PO BID #60 packet Potassium Oral Tab [Klor-Con 10 mEq Tab*] 20 meq PO BID #60 tab Benzonatate [Tessalon Perle*] 100 mg PO TID #30 cap Physician Discharge Instructions: -DC IV and DC to fpc -Follow-up with PCP in 1 to 2 weeks -Follow-up with Wound care nursing in 1 to 2 weeks [phone] -Please call Dr. Mesa at [phone] if any questions regarding hospital stay -Please call nursing station at [phone] if any nursing or medication questions -Return to the emergency room if symptoms worsen Diet: Low sodium Activity: Fall precautions Followup: NONE,NONE [Primary Care Provider] -
[2024-05-16] MEDS: ALPRAZOLAM 0.5 MG TABLET PO PRN (18:17)
[2024-05-16] MEDS: JUVEN PACKET PO SCH (20:57)
--- NOTE | 2024-05-17 08:34 | P.DS ---
Admission Date: 05/08/24 Discharge Date: 05/17/24 Disposition: TRANSFER TO [facility] Discharge Condition: GOOD Reason for Admission: Wound cellulitis and decompensated CHF Brief History of Present Illness: Diagnosis Infected pressure ulcer of the sacrum stage 2, without sepsis Noncompliant with care Pulmonary edema due to acute heart failure with preserved ejection Atrial fibrillation with controlled ventricular response Anemia of chronic disease with relative iron deficiency HPI 05/08/24 Patient is a 73-year-old female with morbid obesity, bedbound. She was brought in to the ER due to concern for draining pressure ulcer involving the coccyx area. There is surrounding inflammation as well. Patient has been having low-grade fever at home. She is cared for by family members who noted this during routine turning. Patient also reports that she has been having bilateral lower extremity swelling for a while. During my evaluation in the ER, she had a productive cough with greenish sputum. Her chest x-ray shows concern for pulmonary edema and mild CHF. Doppler ultrasound ruled out lower extremity DVTs. Her sacral wounds were evaluated. No active drainage noted but there is an area of surrounding erythema. Wound care consulted. Social work is also been consulted for placement because family is unable to care for patient. Hospital Course: Patient was admitted and treated for the following diagnoses Infected pressure ulcer of the sacrum stage 2, without sepsis Noncompliant with care -Tolerated IV antibiotics -Wound care provided-Cleanse with Vashe, packe wound with vashe moistened gauze, silvina gauze and foam daily, off loading and repositioning Q2 hour Pulmonary edema due to acute heart failure with preserved ejection -Chest x-ray on admission mild increase interstitial marking -proBNP significantly elevated 3000 -transthoracic echocardiogram showed normal left ventricular ejection fraction, no structural or valvular heart disease -Tolerated and improved with spironolactone and IV furosemide -negative for influenza A and B, COVID-19, RSV Atrial fibrillation with controlled ventricular response -tolerated apixaban -Follow up outpatient Anemia of chronic disease with relative iron deficiency -stable H/H this admission -tolerated IV iron therapy 05/17/2024, Gwendolyn was seen on morning rounds and deemed hemodynamically stable for discharge to [facility]. Spironolactone, Eliquis, Sharath, potassium, Tessalon Perles called into the pharmacy. Will continue Rocephin IV til 05/23/24. Follow-up with PCP in 1 to 2 weeks. Physical Exam General: Alert and oriented x4, NAD, conversing well Respiratory: nonlabored breathing, on RA Cardiac: RRR, no murmurs or gallops noted, S1 S2 present Extremities: edema present, peripheral pulses 2+, tenderness to touch Abdominal: soft and Nontender on palpation, distended (obese) Skin: Sacrum pressure ulcer Neurological: clear speech, appropriate Vital Signs/Physical Exam: Temp Pulse Resp BP Pulse Ox 98.4 F 86 16 144/64 H 96 05/16/24 20:00 05/16/24 20:00 05/16/24 20:00 05/16/24 20:00 05/16/24 20:00 Other Physical/Emotional Findings: - Physical Exam limited due to patient in cooperation. General: Morbidly obese not acutely ill looking, in no apparent distress,. HEENT: Normocephalic, atraumatic, nonicteric sclera, nonanemic conjunctive. Neck: Supple, unable to assess due to her body habitus habit. Respiratory: Normal breathing effort, clear to auscultation bilaterally, no crackles no wheezing or rhonchi. Cardiovascular: Regular rate and rhythm, S1, S2 normal, no murmur no gallop. Gastrointestinal: Normal bowel sounds, nondistended, nontender, No ascites, , No masses, no hepatosplenomegaly. Extremities : No clubbing, +1+1 peripheral edema of both lower extremity,. Integumentary: No rashes, petechia, suspected lesions. Lymphatics: No axilla or cervical lymphadenopathy. Neurology; alert awake oriented x3, no focal neurologic deficit, Laboratory Data at Discharge: WBC 12.00 thou/uL (4.3-10.9) H 05/14/24 05:12 Hgb 9.1 g/dL (12.0-15.0) L 05/14/24 05:12 Hct 27.9 % (36.0-45.0) L 05/14/24 05:12 Plt Count 497 thou/uL (152-406) H 05/14/24 05:12 PT 12.3 SECONDS (9.4-12.5) 05/08/24 17:35 INR 1.17 05/08/24 17:35 APTT 20.7 SECONDS (24.3-36.9) L 05/08/24 17:35 Sodium 133 mEq/L (136-145) L 05/14/24 05:12 Potassium 3.8 mEq/L (3.5-5.1) 05/14/24 05:12 BUN 11 mg/dL (7-18) 05/14/24 05:12 Creatinine 0.60 mg/dL (0.55-1.02) 05/14/24 05:12 Glucose 112 mg/dL (74-106) H 05/14/24 05:12 Phosphorus 3.2 mg/dL (2.5-4.9) 05/09/24 07:30 Magnesium 1.8 mg/dL (1.6-2.4) 05/09/24 07:30 Total Bilirubin 0.3 mg/dL (0.2-1.0) 05/14/24 05:12 AST 11 U/L (15-37) L 05/14/24 05:12 ALT < 14 U/L (13-56) 05/14/24 05:12 Alkaline Phosphatase 86 U/L (45-117) 05/14/24 05:12 Triglycerides 91 mg/dL (<150) 05/09/24 07:30 Cholesterol 140 mg/dL (<200) 05/09/24 07:30 HDL Cholesterol 35 mg/dL (40-60) L 05/09/24 07:30 Cholesterol/HDL Ratio 4.00 05/09/24 07:30 Home Medications: Acetaminophen [Tylenol Extra Strength] 500 mg PO DAILYPRN PRN 05/09/24 Guaifenesin [Mucinex] 1 tab PO BIDP PRN 05/09/24 Apixaban [Eliquis] 5 mg PO BID 05/11/24 Sucralfate [Carafate*] 1 gm PO ACHS 05/11/24 Apixaban [Eliquis] 5 mg PO BID #60 tab 05/16/24 Benzonatate [Tessalon Perle*] 100 mg PO TID #30 cap 05/16/24 Sharath [Sharath*] 1 pkt PO BID #60 packet 05/16/24 Potassium Oral Tab [Klor-Con 10 mEq Tab*] 20 meq PO BID #60 tab 05/16/24 Spironolactone [Aldactone*] 25 mg PO DAILY #30 tab 05/16/24 New Medications: Spironolactone [Aldactone*] 25 mg PO DAILY #30 tab Apixaban [Eliquis] 5 mg PO BID #60 tab Sharath [Sharath*] 1 pkt PO BID #60 packet Potassium Oral Tab [Klor-Con 10 mEq Tab*] 20 meq PO BID #60 tab Benzonatate [Tessalon Perle*] 100 mg PO TID #30 cap Physician Discharge Instructions: -[facility] to [facility] -Follow-up with PCP in 1 to 2 weeks -Follow-up with Wound care nursing in 1 to 2 weeks [phone] -Please call Dr. Mesa at [phone] if any questions regarding hospital stay -Please call nursing station at [phone] if any nursing or medication questions -Return to the emergency room if symptoms worsen Diet: Low sodium Activity: Fall precautions Followup: NONE,NONE [Primary Care Provider] -
--- NOTE | 2024-05-17 08:35 | P.PN ---
Date of Service: 05/16/24 Subjective no new complaints Continue supportive care and IV Rocephin 1 gram daily Awaiting Placement ROS 10 point ROS as noted above, otherwise negative Physical Exam General: Alert and oriented x4, NAD HEENT: MMM, nare normal Head/Neck: Normocephalic, atraumatic, neck supple Respiratory: nonlabored breathing, on RA Cardiac: RRR, no murmurs or gallops noted, S1 S2 present Extremities: edema present, peripheral pulses 2+, tenderness to touch Abdominal: soft on palpation, Nontender, distended (obese) Skin: Sacrum pressure ulcer Neurological: appropriate Vitals Reviewed Problem list Infected pressure ulcer of the sacrum stage 2, without sepsis Noncompliant with care Pulmonary edema due to acute heart failure with preserved ejection Atrial fibrillation with controlled ventricular response Anemia of chronic disease with relative iron deficiency Assessment and Plan Infected pressure ulcer of the sacrum stage 2, without sepsis Noncompliant with care -Stopped PO ciprofloxacin, stopped ancef, added IV rocephin per sensitivity ) -wound culture Ecoli and proteus mirabilis -wound care nurse consulted -Wound care-Cleanse with Vashe, packe wound with vashe moistened gauze, silvina gauze and foam daily, off loading and repositioning Q2 hour -reposition Q2hour Pulmonary edema due to acute heart failure with preserved ejection -Chest x-ray on admission mild increase interstitial marking -proBNP significantly elevated 3000 -transthoracic echocardiogram showed normal left ventricular ejection fraction, no structural or valvular heart disease -continue spironolactone and IV furosemide -tested negative for influenza A and B, COVID-19, RSV Atrial fibrillation with controlled ventricular response -reported Telemetry overnight showed atrial fibrillation, heart rate at target without AV eryn -[id number] Vsc score of 4, continue apixaban Anemia of chronic disease with relative iron deficiency -H/H stable -no clinical bleeding -Continue IV iron therapy DVT prophylaxis- apixaban Disposition- Placement <Kimi Curtis - Last Filed: 05/17/24 08:35> Patient was seen and examined. Events of the last 24 hours have been noted. Spoke with with KARLO regarding patient's clinical picture after evaluating and examining the patient independently. I performed a substantial part of the MDM during this patient's care today. I personally made or approved the documented management plan and acknowledge its risk of complications. I agree with the findings and documentation provided in the KARLO's notes. <Preeti Mesa - Last Filed: 06/06/24 15:01>
[2024-05-17] MEDS: HYDROCODONE/APAP 10/325 TAB PO ONE (10:46)
[2024-05-17] MEDS: AMOX/K CLAV 875 MG TAB PO ONE (13:22)
--- NOTE | 2024-05-17 14:18 | P.PN ---
Date of Service: 05/17/24 Subjective awake, eating breakfast midline infiltrated, will replace today and continue with antibiotic therapy Awaiting Placement ROS 10 point ROS as noted above, otherwise negative Physical Exam General: AAO x4, NAD Head/Neck: Normocephalic, atraumatic Respiratory: nonlabored breathing, symmetrical chest wall movement, on RA Cardiac: RRR, S1 S2 present Extremities: edema present, peripheral pulses 2+, tenderness to touch Abdominal: soft and Nontender on palpation, distended (obese) Skin: Sacrum pressure ulcer Neurological: appropriate Vitals Reviewed Problem list Infected pressure ulcer of the sacrum stage 2, without sepsis Noncompliant with care Pulmonary edema due to acute heart failure with preserved ejection Atrial fibrillation with controlled ventricular response Anemia of chronic disease with relative iron deficiency Assessment and Plan Infected pressure ulcer of the sacrum stage 2, without sepsis Noncompliant with care -Stopped PO ciprofloxacin, stopped ancef, added IV rocephin per sensitivity ) -wound culture Ecoli and proteus mirabilis -wound care nurse consulted -Wound care-Cleanse with Vashe, packe wound with vashe moistened gauze, silvina gauze and foam daily, off loading and repositioning Q2 hour -reposition Q2hour Pulmonary edema due to acute heart failure with preserved ejection -Chest x-ray on admission mild increase interstitial marking -proBNP significantly elevated 3000 -transthoracic echocardiogram showed normal left ventricular ejection fraction, no structural or valvular heart disease -continue spironolactone and IV furosemide -tested negative for influenza A and B, COVID-19, RSV Atrial fibrillation with controlled ventricular response -reported Telemetry overnight showed atrial fibrillation, heart rate at target without AV eryn -[id number] Vsc score of 4, continue apixaban Anemia of chronic disease with relative iron deficiency -H/H stable -no clinical bleeding -Continue IV iron therapy DVT prophylaxis- apixaban Disposition- Placement <Kimi Curtis - Last Filed: 05/17/24 14:06> Patient was seen and examined. Events of the last 24 hours have been noted. Spoke with with KARLO regarding patient's clinical picture after evaluating and examining the patient independently. I performed a substantial part of the MDM during this patient's care today. I personally made or approved the documented management plan and acknowledge its risk of complications. I agree with the findings and documentation provided in the KARLO's notes. <Preeti Mesa - Last Filed: 06/06/24 15:02>
[2024-05-17] MEDS: HYDROCODONE/APAP 10/325 TAB PO PRN (14:42)
[2024-05-17] MEDS: Mupirocin NASAL 2 APPL/1 GM TUBE NAS SCH (20:43)
[2024-05-17] MEDS: AMOX/K CLAV 875 MG TAB PO SCH (20:56)
[2024-05-18] MEDS: FENTANYL CITR 100 MCG/2 ML IV ONE (12:41)
[2024-05-18] MEDS: FENTANYL 25 MCG/PATCH TD SCH (14:53)
--- NOTE | 2024-05-19 09:51 | P.PN ---
Date of Service: 05/18/24 Subjective New midline placed and tolerated C/o chronic pain Awaiting Placement ROS 10 point ROS as noted above, otherwise negative Physical Exam General: Alert and oriented x4, NAD Head/Neck: Normocephalic, atraumatic Respiratory: nonlabored breathing, symmetrical chest wall movement, on RA Cardiac: Regular rate and rhythm, S1 S2 present, edema Extremities: edema present, peripheral pulses 2+, tenderness to touch Abdominal: soft on palpation, distended (obese) Skin: Sacrum pressure ulcer Neurological: appropriate Vitals Reviewed Problem list Infected pressure ulcer of the sacrum stage 2, without sepsis Noncompliant with care Pulmonary edema due to acute heart failure with preserved ejection Atrial fibrillation with controlled ventricular response Anemia of chronic disease with relative iron deficiency Assessment and Plan Infected pressure ulcer of the sacrum stage 2, without sepsis Noncompliant with care -Continue agumentin (05/17) -wound culture Ecoli and proteus mirabilis -wound care nurse consulted -Wound care-Cleanse with Vashe, packe wound with vashe moistened gauze, silvina gauze and foam daily, off loading and repositioning Q2 hour -reposition Q2hour Pulmonary edema due to acute heart failure with preserved ejection -Chest x-ray on admission mild increase interstitial marking -proBNP significantly elevated 3000 -transthoracic echocardiogram showed normal left ventricular ejection fraction, no structural or valvular heart disease -continue spironolactone and IV furosemide -tested negative for influenza A and B, COVID-19, RSV Atrial fibrillation with controlled ventricular response -reported Telemetry overnight showed atrial fibrillation, heart rate at target without AV eryn -[id number] Vsc score of 4, continue apixaban Anemia of chronic disease with relative iron deficiency -H/H stable -no clinical bleeding -Continue IV iron therapy DVT prophylaxis- apixaban Disposition- Placement <Kimi Curtis - Last Filed: 05/19/24 09:36> Patient was seen and examined. Events of the last 24 hours have been noted. Spoke with with KARLO regarding patient's clinical picture after evaluating and examining the patient independently. I performed a substantial part of the MDM during this patient's care today. I personally made or approved the documented management plan and acknowledge its risk of complications. I agree with the findings and documentation provided in the KARLO's notes. <Preeti Mesa - Last Filed: 06/06/24 15:02>
--- NOTE | 2024-05-19 10:02 | P.PN ---
Date of Service: 05/19/24 Subjective Awake, eating breakfast no new complaint Awaiting Placement ROS 10 point ROS as noted above, otherwise negative Physical Exam General: Awake, Alert, and oriented x4, NAD Head/Neck: Normocephalic, atraumatic Respiratory: Clear BBS, symmetrical chest wall movement, on RA Cardiac: RRR, normal S1 S2 present, edema Extremities: edema present, peripheral pulses 2+, tenderness to touch Abdominal: soft on palpation, distended (obese) Skin: Sacrum pressure ulcer Neurological: appropriate Vitals Reviewed Problem list Infected pressure ulcer of the sacrum stage 2, without sepsis Noncompliant with care Pulmonary edema due to acute heart failure with preserved ejection Atrial fibrillation with controlled ventricular response Anemia of chronic disease with relative iron deficiency Assessment and Plan Infected pressure ulcer of the sacrum stage 2, without sepsis Noncompliant with care -Continue agumentin (05/17) -wound culture Ecoli and proteus mirabilis -wound care nurse consulted -Wound care-Cleanse with Vashe, packe wound with vashe moistened gauze, silvina gauze and foam daily, off loading and repositioning Q2 hour -reposition Q2hour Pulmonary edema due to acute heart failure with preserved ejection -Chest x-ray on admission mild increase interstitial marking -proBNP significantly elevated 3000 -transthoracic echocardiogram showed normal left ventricular ejection fraction, no structural or valvular heart disease -continue spironolactone and IV furosemide -tested negative for influenza A and B, COVID-19, RSV Atrial fibrillation with controlled ventricular response -reported Telemetry overnight showed atrial fibrillation, heart rate at target without AV eryn -[id number] Vsc score of 4, continue apixaban Anemia of chronic disease with relative iron deficiency -H/H stable -no clinical bleeding -Continue IV iron therapy DVT prophylaxis- apixaban Disposition- Placement <Kimi Curtis - Last Filed: 05/19/24 09:53> Patient was seen and examined. Events of the last 24 hours have been noted. Spoke with with KARLO regarding patient's clinical picture after evaluating and examining the patient independently. I performed a substantial part of the MDM during this patient's care today. I personally made or approved the documented management plan and acknowledge its risk of complications. I agree with the findings and documentation provided in the KARLO's notes. <Preeti Mesa - Last Filed: 06/06/24 15:03>
[2024-05-20] MEDS: MORPHINE 2 MG/ML SYR IV ONE (05:00)
[2024-05-20 09:00] VITALS: BP 155/71; TEMP 97.8
--- NOTE | 2024-05-20 10:06 | P.PN ---
Date of Service: 05/20/24 Subjective Allowed repositioning and sacral wound cleaning yesterday Continues with generalized pain Awaiting Placement ROS 10 point ROS as noted above, otherwise negative Physical Exam General: AAO x4, NAD Head/Neck: Normocephalic, atraumatic Respiratory: Clear BBS, symmetrical chest wall movement, on RA Cardiac: RRR, normal S1 S2 present, edema Extremities: edema present, peripheral pulses 2+, tenderness to touch Abdominal: soft on palpation, distended (obese) Skin: Sacrum pressure ulcer Neurological: appropriate Vitals Reviewed Problem list Infected pressure ulcer of the sacrum stage 2, without sepsis Noncompliant with care Pulmonary edema due to acute heart failure with preserved ejection Atrial fibrillation with controlled ventricular response Anemia of chronic disease with relative iron deficiency Assessment and Plan Infected pressure ulcer of the sacrum stage 2, without sepsis Noncompliant with care -Continue agumentin (05/17) -wound culture Ecoli and proteus mirabilis -wound care nurse consulted -Wound care-Cleanse with Vashe, packe wound with vashe moistened gauze, silvina gauze and foam daily, off loading and repositioning Q2 hour -reposition Q2hour Pulmonary edema due to acute heart failure with preserved ejection -Chest x-ray on admission mild increase interstitial marking -proBNP significantly elevated 3000 -transthoracic echocardiogram showed normal left ventricular ejection fraction, no structural or valvular heart disease -continue spironolactone and IV furosemide -tested negative for influenza A and B, COVID-19, RSV Atrial fibrillation with controlled ventricular response -reported Telemetry overnight showed atrial fibrillation, heart rate at target without AV eryn -[id number] Vsc score of 4, continue apixaban Anemia of chronic disease with relative iron deficiency -H/H stable -no clinical bleeding -Continue IV iron therapy DVT prophylaxis- apixaban Disposition- Placement
--- NOTE | 2024-05-20 10:35 | P.DS ---
Admission Date: 05/08/24 Discharge Date: 05/20/24 Reason for Admission: Wound cellulitis and decompensated CHF Brief History of Present Illness: Diagnosis Infected pressure ulcer of the sacrum stage 2, without sepsis Noncompliant with care Pulmonary edema due to acute heart failure with preserved ejection Atrial fibrillation with controlled ventricular response Anemia of chronic disease with relative iron deficiency HPI 05/08/24 Patient is a 73-year-old female with morbid obesity, bedbound. She was brought in to the ER due to concern for draining pressure ulcer involving the coccyx area. There is surrounding inflammation as well. Patient has been having low-grade fever at home. She is cared for by family members who noted this during routine turning. Patient also reports that she has been having bilateral lower extremity swelling for a while. During my evaluation in the ER, she had a productive cough with greenish sputum. Her chest x-ray shows concern for pulmonary edema and mild CHF. Doppler ultrasound ruled out lower extremity DVTs. Her sacral wounds were evaluated. No active drainage noted but there is an area of surrounding erythema. Wound care consulted. Social work is also been consulted for placement because family is unable to care for patient. Hospital Course: Patient was admitted and treated for the following diagnoses Infected pressure ulcer of the sacrum stage 2, without sepsis Noncompliant with care -Tolerated IV antibiotics -Wound care provided-Cleanse with Vashe, packe wound with vashe moistened gauze, silvina gauze and foam daily, off loading and repositioning Q2 hour Pulmonary edema due to acute heart failure with preserved ejection -Chest x-ray on admission mild increase interstitial marking -proBNP significantly elevated 3000 -transthoracic echocardiogram showed normal left ventricular ejection fraction, no structural or valvular heart disease -Tolerated and improved with spironolactone and IV furosemide -negative for influenza A and B, COVID-19, RSV Atrial fibrillation with controlled ventricular response -tolerated apixaban -Follow up outpatient Anemia of chronic disease with relative iron deficiency -stable H/H this admission -tolerated IV iron therapy 04/19/2024, Gwendolyn was seen on morning rounds and deemed hemodynamically stable for discharge to [facility]. Spironolactone, Eliquis, Sharath, potassium, Tessalon Perles called into the pharmacy. Will continue Rocephin IV til 05/23/24. Follow-up with PCP in 1 to 2 weeks. Physical Exam General: Alert and oriented x4, NAD, conversing well Respiratory: nonlabored breathing, on RA Cardiac: RRR, no murmurs or gallops noted, S1 S2 present Extremities: edema present, peripheral pulses 2+, tenderness to touch Abdominal: soft and Nontender on palpation, distended (obese) Skin: Sacrum pressure ulcer Neurological: clear speech, appropriate <Kimi Curtis - Last Filed: 05/20/24 10:29> Admission Date: 05/08/24 Discharge Date: 05/20/24 Hospital Course: Patient was seen and examined. Events of the last 24 hours have been noted. Spoke with with KARLO regarding patient's clinical picture after evaluating and examining the patient independently. I performed a substantial part of the MDM during this patient's care today. I personally made or approved the documented management plan and acknowledge its risk of complications. I agree with the findings and documentation provided in the KARLO's notes. <Preeti Mesa - Last Filed: 06/06/24 15:03> Disposition: TRANSFER TO INTERMEDIATE Discharge Condition: GOOD Vital Signs/Physical Exam: Temp Pulse Resp BP Pulse Ox 97.8 F 94 H 20 155/71 H 95 05/20/24 08:00 05/20/24 08:00 05/20/24 08:00 05/20/24 08:00 05/20/24 08:00 Other Physical/Emotional Findings: - Physical Exam limited due to patient in cooperation. General: Morbidly obese not acutely ill looking, in no apparent distress,. HEENT: Normocephalic, atraumatic, nonicteric sclera, nonanemic conjunctive. Neck: Supple, unable to assess due to her body habitus habit. Respiratory: Normal breathing effort, clear to auscultation bilaterally, no crackles no wheezing or rhonchi. Cardiovascular: Regular rate and rhythm, S1, S2 normal, no murmur no gallop. Gastrointestinal: Normal bowel sounds, nondistended, nontender, No ascites, , No masses, no hepatosplenomegaly. Extremities : No clubbing, +1+1 peripheral edema of both lower extremity,. Integumentary: No rashes, petechia, suspected lesions. Lymphatics: No axilla or cervical lymphadenopathy. Neurology; alert awake oriented x3, no focal neurologic deficit, Laboratory Data at Discharge: WBC 12.00 thou/uL (4.3-10.9) H 05/14/24 05:12 Hgb 9.1 g/dL (12.0-15.0) L 05/14/24 05:12 Hct 27.9 % (36.0-45.0) L 05/14/24 05:12 Plt Count 497 thou/uL (152-406) H 05/14/24 05:12 PT 12.3 SECONDS (9.4-12.5) 05/08/24 17:35 INR 1.17 05/08/24 17:35 APTT 20.7 SECONDS (24.3-36.9) L 05/08/24 17:35 Sodium 133 mEq/L (136-145) L 05/14/24 05:12 Potassium 3.8 mEq/L (3.5-5.1) 05/14/24 05:12 BUN 11 mg/dL (7-18) 05/14/24 05:12 Creatinine 0.60 mg/dL (0.55-1.02) 05/14/24 05:12 Glucose 112 mg/dL (74-106) H 05/14/24 05:12 Phosphorus 3.2 mg/dL (2.5-4.9) 05/09/24 07:30 Magnesium 1.8 mg/dL (1.6-2.4) 05/09/24 07:30 Total Bilirubin 0.3 mg/dL (0.2-1.0) 05/14/24 05:12 AST 11 U/L (15-37) L 05/14/24 05:12 ALT < 14 U/L (13-56) 05/14/24 05:12 Alkaline Phosphatase 86 U/L (45-117) 05/14/24 05:12 Triglycerides 91 mg/dL (<150) 05/09/24 07:30 Cholesterol 140 mg/dL (<200) 05/09/24 07:30 HDL Cholesterol 35 mg/dL (40-60) L 05/09/24 07:30 Cholesterol/HDL Ratio 4.00 05/09/24 07:30 <Kimi Curtis - Last Filed: 05/20/24 10:29> Vital Signs/Physical Exam: Temp Pulse Resp BP Pulse Ox 97.8 F 94 H 20 155/71 H 95 05/20/24 08:00 05/20/24 11:50 05/20/24 11:48 05/20/24 11:50 05/20/24 11:48 General: Alert, In no apparent distress, Oriented x3 Laboratory Data at Discharge: WBC Cancelled 05/21/24 05:00 Hgb Cancelled 05/21/24 05:00 Hct Cancelled 05/21/24 05:00 Plt Count Cancelled 05/21/24 05:00 PT 12.3 SECONDS (9.4-12.5) 05/08/24 17:35 INR 1.17 05/08/24 17:35 APTT 20.7 SECONDS (24.3-36.9) L 05/08/24 17:35 Sodium Cancelled 05/21/24 05:00 Potassium Cancelled 05/21/24 05:00 BUN Cancelled 05/21/24 05:00 Creatinine Cancelled 05/21/24 05:00 Glucose Cancelled 05/21/24 05:00 Phosphorus Cancelled 05/21/24 05:00 Magnesium Cancelled 05/21/24 05:00 Total Bilirubin 0.3 mg/dL (0.2-1.0) 05/14/24 05:12 AST 11 U/L (15-37) L 05/14/24 05:12 ALT < 14 U/L (13-56) 05/14/24 05:12 Alkaline Phosphatase 86 U/L (45-117) 05/14/24 05:12 Triglycerides 91 mg/dL (<150) 05/09/24 07:30 Cholesterol 140 mg/dL (<200) 05/09/24 07:30 HDL Cholesterol 35 mg/dL (40-60) L 05/09/24 07:30 Cholesterol/HDL Ratio 4.00 05/09/24 07:30 <Preeti Mesa - Last Filed: 06/06/24 15:03> Diet: Low sodium Activity: Fall precautions <Kimi Curtis - Last Filed: 05/20/24 10:29> Time spent managing pt's care (in minutes): 35 <Preeti Mesa - Last Filed: 06/06/24 15:03> Home Medications: Acetaminophen [Tylenol Extra Strength] 500 mg PO DAILYPRN PRN 05/09/24 Guaifenesin [Mucinex] 1 tab PO BIDP PRN 05/09/24 Apixaban [Eliquis] 5 mg PO BID 05/11/24 Sucralfate [Carafate*] 1 gm PO ACHS 05/11/24 Apixaban [Eliquis] 5 mg PO BID #60 tab 05/16/24 Benzonatate [Tessalon Perle*] 100 mg PO TID #30 cap 05/16/24 Sharath [Sharath*] 1 pkt PO BID #60 packet 05/16/24 Potassium Oral Tab [Klor-Con 10 mEq Tab*] 20 meq PO BID #60 tab 05/16/24 Spironolactone [Aldactone*] 25 mg PO DAILY #30 tab 05/16/24 Amox/Clavulanate [Augmentin 875-125 Tab] 875 mg PO BID #14 tab 05/17/24 New Medications: Spironolactone [Aldactone*] 25 mg PO DAILY #30 tab Amox/Clavulanate [Augmentin 875-125 Tab] 875 mg PO BID #14 tab Apixaban [Eliquis] 5 mg PO BID #60 tab Sharath [Sharath*] 1 pkt PO BID #60 packet Potassium Oral Tab [Klor-Con 10 mEq Tab*] 20 meq PO BID #60 tab Benzonatate [Tessalon Perle*] 100 mg PO TID #30 cap Physician Discharge Instructions: -DC IV and DC to home -Follow-up with PCP in 1 to 2 weeks -Follow-up with Wound care nursing in 1 to 2 weeks [phone] -Please call Dr. Mesa at [phone] if any questions regarding hospital stay -Please call nursing station at [phone] if any nursing or medication questions -Return to the emergency room if symptoms worsen Followup: NONE,NONE [Primary Care Provider] -
--- NOTE | 2024-05-20 12:56 | EKG ---
Test Date: 2024-05-08 Test Time: 17:41:48 Import Dispatcher: PH MEASUREMENT RESULTS: Intervals: Rate: 99 AL: QRSD: 82 QT: 502 QTc: 644 Mcmillan: P: AL: QRS: 21 T: 38 INTERPRETIVE STATEMENTS: Atrial fibrillation Low voltage QRS Prolonged QT Abnormal ECG Compared to ECG 12/02/2023 12:17:50 Prolonged QT interval now present T-wave abnormality no longer present Electronically Signed On 05-20-24 12:26:56 KARDEX CLERK by Moises Whipple
== END 2024-05-20 12:35 | DRG 592 ==
LOC: ER 15:17 → ERHOLD 19:33 → 2ND 21:00
PROVIDERS: ADMIT Internal Medicine; ATTEND Hospitalist
PROC: 02HV33Z Insertion of Infusion Device into Superior Vena Cava, Percutaneous Approach (ICD-10-PCS; principal; 2024-05-09)
DX: L89.152 Pressure ulcer of sacral region, stage 2 (principal); I50.33 Acute on chronic diastolic (congestive) heart failure; Z68.44 Body mass index [BMI] 60.0-69.9, adult; L03.317 Cellulitis of buttock; I11.0 Hypertensive heart disease with heart failure; E66.01 Morbid (severe) obesity due to excess calories; E87.6 Hypokalemia; D50.9 Iron deficiency anemia, unspecified; I48.91 Unspecified atrial fibrillation; Z88.2 Allergy status to sulfonamides; Z74.01 Bed confinement status; Z91.119 Patient's noncompliance with dietary regimen due to unspecified reason; Z11.52 Encounter for screening for COVID-19; B96.20 Unspecified Escherichia coli [E. coli] as the cause of diseases classified elsewhere; B96.4 Proteus (mirabilis) (morganii) as the cause of diseases classified elsewhere
CPT/HCPCS: 36415; 71045; 80048; 80053; 80061; 80202; 82728; 82947; 83540; 83605; 83735; 83880; 84100; 84132; 84466; 85025; 85044; 85610; 85730; 87040; 87070; 87077; 87186; 87205; 87804; 87807; 87811; 93005; 93306; 93970; 96374; 96375; 97110; 97161; 99285; J0696; J1171; J1650; J1940; J2270; J2405; J2916; J3010; J7040; J7050

== ENCOUNTER 2024-06-21 20:58 | Inpatient (IN) | payer OTHER ==
--- OUTSIDE RECORDS SUMMARY | 2024-06-21 21:10 | XMS REPORT | Continuity of Care Document ---
Author Name Unknown Address [address] [facility] [address] [place] [address] [facility] [place] Address [address] [facility] 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 Name Role Phone Khanh Alvarado Primary Care Physician [phone] Service/[place], Surgery C Attending Clinician U jed Andrade RN, Cinthya Anthony Attending Clinician Ivana Saravia MD, Jr Attending Clinician [phone] Toney Elkins MD Attending Clinician [phone] Isrrael Galindo DO Attending Clinician [phone] Gopi Alves MD Attending Clinician [phone] Wilton BROOKS, Kentrell Attending Clinician [phone] Bashir Cavralho MD Attending Clinician [phone] Sanya BROOKS, Taylor Attending Clinician [phone] Jeb BROOKS, Lopez Arcos Attending Clinician + [phone] Ivan Rogers MD Attending Clinician Daisy Nelson RN Attending Clinician Unavailable ALEX SMITH Attending Clinician ALEX Norman Attending Clinician Davy Chinchilla MD, Pablo Harris Attending Clinician [phone] Kamari BROOKS, Stefanie Naylor Attending Clinician [phone] Alex Smith MD Attending Clinician Isrrael Galindo DO Admitting Clinician Jr Saravia MD Admitting Clinician STEFANIE JOHNSON Admitting Clinician Stefanie Gonzales MD Admitting Clinician Payers Payer Name Policy Type Policy Number Effective Date Expirati on Date Source Problems Condition Name Condition Details Condition Category Status Onset Date Resolution Date Last Treatment Date Treating Clinician Comments Source Wound infection after surgery Wound infection after surgery Disease Active 2023-03 0-12 00:00: 00 [facility] Colon perforatio n Colon perforatio n Disease Active 9 00:00: 00 [facility] Abdominal pain, unspecifie d abdominal location Abdominal pain, unspecifie d abdominal location Disease Active 11-19 00:00: 00 [facility] Allergies, Adverse Reactions, Alerts Allergy Name Allergy Type Status Severity Reaction(s) Onset Date Inactive Date Treating Clinician Comments Source NO KNOWN ALLERGIE S Drug Class Active [facility] Social History Social Habit Start Date Stop Date Quantity Comments Source History of tobacco use Cigarette Smoker [facility] Sexual orientation [facility] History of Social function 2024-01-07 00:00:00 2024-01-07 00:00:00 [facility] Cigarettes smoked current (pack per day) - Reported 2023-11-22 00:00:00 2023-11-22 00:00:00 [facility] Cigarette pack-years 2023-11-22 00:00:00 2023-11-22 00:00:00 [facility] Tobacco use and exposure 2023-11-22 00:00:00 2023-11-22 00:00:00 Smokeless tobacco non-user [facility] Sex assigned at 1950 00:00:00 1950 00:00:00 [facility] Smoking Status Start Date Stop Date Source Ex-smoker 2023-11-22 00:00:00 2023-11-22 00:00:00 [facility] Medications Ordered Medication Name Filled Medication Name Start Date Stop Date Current Medication? Ordering Clinician Indication Dosage Frequency Signature (SIG) Comments Components Source acetaminoph en 325 mg tablet 2023-03 00:00: 00 01-14 04:59 :00 No [id number] 650mg Take 2 tablets by mouth every 8 (eight) hours as needed for Pain (scale 1-3). [facility] HYDROcodone -acetaminop hen 5-325 mg tablet 2023-03 00:00: 00 01-28 05:59 :00 No [id number] 1{tbl} Take 1 tablet by mouth every 6 (six) hours as needed for Pain (scale 7-10) for up to 14 days. Indication s: acute pain, chronic pain [facility] HYDROcodone -acetaminop hen (NORCO 5) tablet 1 tablet 2023-03 21:42: 53 01-13 18:45 :35 No 1{tbl} 1 tablet, Oral, Q4HPRN, Starting on Mon01/12/24 at 1642, Until 01/14/24 at 1345, Routine, Pain (scale 4-6) [facility] acetaminoph en (TYLENOL) tablet 650 mg 2023-03 21:42: 37 Yes 650mg 650 mg, Oral, Q8HPRN, Starting on Mon01/12/24 at 1642, Until Discontinu ed, Routine, Pain (scale 1-3) [facility] HYDROcodone -acetaminop hen (NORCO) 10-325 mg tablet 1 tablet 2023-03 17:00: 00 01-10 18:34 :00 No 1{tbl} 1 tablet, Oral, ONCE, 1 dose, On Mon01/11/24 at 1200, Routine [facility] sodium hypochlorit e 0.25% (DAKIN'S SOLUTION) solution 2023-03 13:00: 00 01-13 18:45 :35 No Topical, BID, First dose (after last modificati on) on Mon01/10/24 at 0800, Until Discontinu ed, Routine [facility] metoprolol tartrate (LOPRESSOR) tablet 25 mg 2023-03 13:00: 00 01-13 18:45 :35 No 25mg 25 mg, Oral, BID, First dose (after last modificati on) on Mon01/10/24 at 0800, Until Discontinu ed, Routine [facility] tamsulosin (FLOMAX) capsule 0.4 mg 2023-03 016 04:00: 00 01-13 18:45 :35 No .4mg 0.4 mg, Oral, DAILY, First dose on Mon01/09/24 at 2300, Until Discontinu ed, Routine [facility] simethicone (GAS RELIEF (SIMETHICON E)) chewable tablet 80 mg 2023-0314 02:00: 00 01-13 18:45 :35 No 80mg 80 mg, Oral, PC+HS, First dose on Mon01/07/24 at 2100, Until Discontinu ed, Routine [facility] NaCl 0.9% (NS) injection 10 mL 2023-03 21:13: 50 01-13 18:45 :35 No 10mL 10 mL, Slow IV Push, PRN, Starting on 01/07/24 at 1613, Until 01/14/24 at 1345, Routine, line maintenanc e [facility] lidocaine 1% (PF) (XYLOCAINE) injection 5 mL 2023-03 21:13: 50 01-13 18:45 :35 No 5mL 5 mL, Subcutaneo us, PRN, 1 dose, Starting on Mon01/07/24 at 1613, Until 01/14/24 at 1345, Routine, Local anesthesia [facility] gabapentin (NEURONTIN) capsule 100 mg 2023-03 14:00: 00 01-13 18:45 :35 No 100mg 100 mg, Oral, DAILY, First dose on Mon01/07/24 at 0900, Until Discontinu ed, Routine [facility] docusate (COLACE) capsule 100 mg 2023-03 14:00: 00 01-13 18:45 :35 No 100mg 100 mg, Oral, DAILY, First dose on 01/07/24 at 0900, Until Discontinu ed, Routine [facility] pantoprazol e (PROTONIX) EC tablet 40 mg 2023-03 14:00: 00 01-13 18:45 :35 No 40mg 40 mg, Oral, DAILY, First dose on 01/07/24 at 0900, Until Discontinu ed, Routine, Indication for use: None of the above [facility] sodium hypochlorit e 0.25% (DAKIN'S SOLUTION) solution 2023-03 14:00: 00 01-09 02:11 :25 No Topical, QAM, First dose on 01/07/24 at 0900, Until Discontinu ed, Routine [facility] sodium chloride (OCEAN MIST NASAL) 0.65 % nasal spray 1 [place] 2023-03 13:45: 07 01-13 18:45 :35 No 1{spray } 1 [place], Nasal, QIDPRN, Starting on 01/07/24 at 0845, Until 01/14/24 at 1345, Routine, Nasal drying [facility] diphenhydrA MINE (BENADRYL) tablet 25 mg 2023-03 13:43: 25 01-13 18:45 :35 No 25mg 25 mg, Oral, Q4HPRN, Starting on 01/07/24 at 0843, Until 01/14/24 at 1345, Routine, Itching, Mild Rash, Congestion /Allergies [facility] apixaban (ELIQUIS) tablet 5 mg 2023-03 13:00: 00 01-13 18:45 :35 No 5mg 5 mg, Oral, BID, First dose on Mon01/07/24 at 0800, Until Discontinu ed, Routine, Indication s: Non-Valvul ar Atrial Fibrillati on [facility] magnesium sulfate in water 4 gram/50 mL (8 %) IV Piggyback 4 g 2023-03 08:45: 00 01-06 10:18 :00 No 4g 4 g, IV Piggyback, at 25 mL/hr Administer over 120 Minutes, ONCE, 1 dose, On 01/07/24 at 0345, Routine [facility] piperacilli n-tazobacta m (ZOSYN) 3.375 g in NaCl 0.9% (NS) 100 mL MINI-BAG 2023-03 08:30: 00 01-08 18:05 :10 No 3.375g 3.375 g, IV Piggyback, Q8H ABX, 21 doses, First dose on 01/07/24 at 0330, Last dose on [facility] 01/13/24 at 1930, Administer over 4 Hours, 100 mL, Reason for Anti-Infec tive: Documented Infection, Documented Infection Site: Skin / Soft Tissue, Duration of Therapy: 7 days [facility] sucralfate (CARAFATE) tablet 1 g 2023-03 02:00: 00 01-13 18:45 :35 No 1g 1 g, Oral, AC+HS, First dose on 01/06/24 at 2100, Until Discontinu ed, Routine [facility] QUEtiapine (SEROQUEL) tablet 25 mg 2023-03 02:00: 00 01-13 18:45 :35 No 25mg 25 mg, Oral, QHS, First dose on [facility] 01/06/24 at 2100, Until Discontinu ed, Routine [facility] metoprolol tartrate (LOPRESSOR) tablet 25 mg 2023-03 01:00: 00 01-09 02:11 :25 No 25mg 25 mg, Oral, BID, First dose on 01/06/24 at 2000, Until Discontinu ed, Routine [facility] methocarbam oL (ROBAXIN) tablet 1,000 mg 2023-03 00:02: 10 01-13 18:45 :35 No 1000mg 1,000 mg, Oral, TIDPRN, Starting on 01/06/24 at 1902, Until [place] 01/14/24 at 1345, Muscle Spasms [facility] ondansetron (ZOFRAN (PF)) injection 4 mg 2023-03 23:55: 25 01-13 18:45 :35 No 4mg 4 mg, Slow IV Push, Q6HPRN, Starting on 01/06/24 at 1855, Until 01/14/24 at 1345, Routine, Nausea and Vomiting (N/V) [facility] morphine (2 mg/mL) injection 2 mg 2023-03 012 23:55: 22 01-13 18:45 :35 No 2mg 2 mg, Slow IV Push, Q4HPRN, Starting on 01/06/24 at 1855, Until 01/14/24 at 1345, Routine, Pain (scale 7-10), Pain unrelieved by scheduled analgesics [facility] HYDROcodone -acetaminop hen (NORCO 5) tablet 1 tablet 2023-03 23:55: 17 01-11 21:44 :07 No 1{tbl} 1 tablet, Oral, Q6HPRN, Starting on 01/06/24 at 1855, Until 01/12/24 at 1644, Routine, Pain (scale 4-6) [facility] apixaban 5 mg tablet 2023-03 0 00:00: 00 03-02 05:59 :00 No 5mg Take 1 tablet by mouth in the morning and 1 tablet in the evening. Do all this for 60 days. Indication s: non valvular a fib [facility] docusate 100 mg capsule 2023-03 0 00:00: 00 01-29 05:59 :00 No [id number] 100mg Take 1 capsule by mouth in the morning for 30 days. [facility] traMADoL 50 mg tablet 2023-03 004 00:00: 00 Yes [id number] 50mg Take 1 tablet by mouth every 6 (six) hours as needed for Pain (scale 7-10) for up to 15 doses. Indication s: acute pain [facility] metoprolol tartrate 25 mg tablet 2023-03 0-04 00:00: 00 02-27 05:59 :00 No [id number] 25mg Take 1 tablet by mouth in the morning and 1 tablet in the evening. Do all this for 60 days. [facility] methocarbam oL 1,000 mg Tab 2023-03 0-04 00:00: 00 01-28 05:59 :00 No [id number] 1000mg Take 1,000 mg by mouth 3 (three) times daily as needed for Pain (scale 1-3) for up to 30 days. [facility] QUEtiapine 25 mg tablet 2023-03 0-04 00:00: 00 01-28 05:59 :00 No [id number] 25mg Take 1 tablet by mouth at bedtime for 30 days. [facility] sodium hypochlorit e 0.25% solution 2023-03 0 00:00: 00 01-28 05:59 :00 No [id number] Apply to area(s) every morning for 30 days. [facility] sucralfate 1 gram tablet 2023-03 0 00:00: 00 01-28 05:59 :00 No [id number] 1g Take 1 tablet by mouth before meals and at bedtime for 30 days. [facility] sodium chloride 0.65 % nasal spray 2023-03 0 00:00: 01-28 05:59 :00 No [id number] 1{spray } Use 1 [place] in each nostril in the morning and 1 [place] in the evening. Do all this for 30 days. [facility] acetaminoph en 500 mg tablet 2023-03 004 00:00: 00 01-13 00:00 :00 No [id number] 1000mg Take 2 tablets by mouth every 8 (eight) hours. [facility] apixaban 5 mg tablet 2023-03 0-04 00:00: 00 12-31 04:59 :00 No 10mg Take 2 tablets by mouth in the morning and 2 tablets in the evening. Do all this for 2 days. Indication s: non valvular a fib [facility] polyethylen e glycol 3350 powder 17 g 2023-03 0-03 14:00: 00 Yes 17g 17 g, Oral, DAILY, First dose (after last modificati on) on [place] 12/28/23 at 0900, Until Discontinu ed, Routine [facility] docusate (COLACE) capsule 100 mg 2023-03 14:00: 00 Yes 100mg 100 mg, Oral, DAILY, First dose on Mon12/26/23 at 0900, Until Discontinu ed, Routine [facility] apixaban (ELIQUIS) tablet 10 mg 12-24 [...] ar Atrial Fibrillati on [Order 2 End] [facility] sodium chloride (OCEAN MIST NASAL) 0.65 % nasal spray 1 [place] 12-22 01:00: 00 01-05 00:59 :00 No 1{spray } 1 [place], Nasal, BID, 28 doses, First dose (after last reorder) on Mon12/22/23 at 1999, Last dose on Mon01/05/24 at 0800, Routine [facility] fluticasone propionate 50 mcg/actuati on nasal spray 1 [place] 12-22 01:00: 00 01-05 00:59 :00 No 1{spray } 1 [place], Nasal, BID, 28 doses, First dose (after last reorder) on Mon12/22/23 at 1999, Last dose on Mon01/05/24 at 0800, Routine [facility] sodium hypochlorit e 0.5% (DAKINS) solution 20 mL 12-21 21:00: 00 12-25 13:26 :37 No 20mL 20 mL, Topical, QID, First dose on Mon12/22/23 at 1600, Until Discontinu ed, Routine [facility] iopamidol (ISOVUE 370-500 mL) injection 120 mL 12-21 18:45: 00 12-21 18:45 :00 No [id number] 120mL 120 mL, Intravenou s, ONCE, 1 dose, On Mon12/22/23 at 1345, [facility] chloride in water (KCL) 20 mEq/100 mL IV infusion 20 mEq 12-19 21:00: 00 12-20 03:00 :00 No 20meq 20 mEq, IV Piggyback, at 50 mL/hr Administer over 2 Hours, Q2H, 2 doses, First dose on Mon12/20/23 at 1600, Last dose on Mon12/20/23 at 1800, [facility]ine [facility] guaiFENesin 100 mg/5 mL solution 100 mg 12-19 05:07: 11 Yes 100mg 100 mg, Oral, Q8HPRN, Starting on Mon12/20/23 at 0007, Until Discontinu ed, Routine, Cough [facility] magnesium sulfate in water 2 gram/50 mL (4 %) infusion 2 g 12-17 13:15: 00 12-17 16:13 :00 No 2g 2 g, IV Piggyback, Administer over 60 Minutes, ONCE, 1 dose, On Mon12/18/23 at 0815, Routine [facility] piperacilli n-tazobacta m (ZOSYN) 3.375 [...] Abdominal, Duration of Therapy: 7 days [facility] magnesium oxide (MAG-OX 400) 40 mg/mL oral suspension 400 mg 12-16 14:00: 00 12-23 16:21 :07 No 400mg 400 mg, Oral, DAILY, First dose on Mon12/17/23 at 0900, Until Discontinu ed, Routine [facility] enoxaparin (LOVENOX) injection 120 mg 12-16 01:00: 00 12-23 16:09 :20 No .7mg/kg 120 mg (rounded from 119.07 mg = 0.7 mg/kg ?170.1 kg), Subcutaneo us, Q12H, First dose on 12/16/23 at 2000, Until Discontinu ed, Routine [facility] NaCl 0.9% (NS) injection 10 mL 12-15 18:05: 16 Yes 10mL 10 mL, Slow IV Push, PRN, Starting on 12/16/23 at 1305, Until Discontinu ed, Routine, line maintenanc e [facility] lidocaine 1% (PF) (XYLOCAINE) injection 5 mL 12-15 18:05: 15 Yes 5mL 5 mL, Subcutaneo us, PRN, 1 dose, Starting on 12/16/23 at 1305, Until Discontinu ed, Routine, Local anesthesia [facility] haloperidol lactate (HALDOL) injection 5 mg 12-14 22:54: 22 Yes 5mg 5 mg, Slow IV Push, Q6HPRN, Starting on Mon12/15/23 at 1754, Until Discontinu ed, Routine, prior to dressing changes [facility] magnesium sulfate in water 2 gram/50 mL (4 %) infusion 2 g 12-14 13:15: 00 12-14 20:45 :00 No 2g 2 g, IV Piggyback, Administer over 60 Minutes, ONCE, 1 dose, On Mon12/15/23 at 0815, Routine [facility] potassium chloride in water (KCL) 20 mEq/100 mL RTU IVPB 20 mEq 12-14 03:45: 00 12-14 07:44 :00 No 20meq 20 mEq, IV Piggyback, at 50 mL/hr Administer over 2 Hours, Q2H ES, 2 doses, First dose on [place] 12/13/24 at 2245, Last dose on Mon12/15/23 at 0045, DIMAS [facility] loratadine (CLARITIN) tablet 10 mg 12-14 03:00: 00 12-21 18:25 :22 No 10mg 10 mg, Oral, DAILY, First dose on Mon12/14/23 at 2200, Until Discontinu ed, Routine [facility] metoprolol tartrate (LOPRESSOR) tablet 25 mg 12-13 01:00: 00 Yes 25mg 25 mg, Oral, BID, First dose (after last reorder) on Mon12/13/23 at 2000, Until Discontinu ed, Routine [facility] potassium chloride in water (KCL) 20 mEq/100 mL RTU IVPB 20 mEq 12-12 20:00: 00 12-13 00:42 :00 No 20meq 20 mEq, IV Piggyback, at 50 mL/hr Administer over 2 Hours, Q2H ES, 2 doses, First dose on Mon12/13/23 at 1500, Last dose on Mon12/13/23 at 1700, Routine [facility] haloperidol lactate (HALDOL) injection 5 mg 12-12 14:08: 54 12-14 22:54 :50 No 5mg 5 mg, Slow IV Push, Q6HPRN, Starting on Mon12/13/23 at 0908, Until Mon12/15/23 at 1754, Routine, Hyperactiv e agitation, pulling out IV lines [facility] potassium chloride in water (KCL) 20 mEq/100 mL RTU IVPB 20 mEq 12-12 12:47: 00 12-12 17:06 :01 No 20meq 20 mEq, IV Piggyback, at 50 mL/hr Administer over 2 Hours, Q2H ES, 2 doses, First dose on Mon12/13/23 at 0800, Last dose on Mon12/13/23 at 1000, DIMAS [facility] phytonadion e (VITAMIN K) 5 mg in NaCl 0.9% (NS) piggyback 12-12 09:00: 00 12-12 09:39 :00 No 5mg IV Piggyback, ONCE, 1 dose, On Mon12/13/23 at 0400, 50 mL [facility] QUEtiapine (SEROQUEL) tablet 25 mg 12-12 02:00: 00 Yes 25mg 25 mg, Oral, QHS, First dose on Mon12/12/23 at 2100, Until Discontinu ed, Routine [facility] furosemide (LASIX) injection 20 mg 12-12 01:00: 00 12-15 02:55 :14 No 20mg 20 mg, Slow IV Push, Q12H, First dose (after last modificati on) on Mon12/12/23 at 2000, Until [facility]continu ed, [facility] (PORCINE) 1,000 UNIT/ML BOLUS ACS ORDER SET 12-10 16:15: 00 12-10 22:00 :00 No 4000U 4,000 Units, IV Push, ONCE, 1 dose, On Mon12/11/23 at 1115, [facility] 25,000 Units/250 mL (Premixed [...] INITIAL BOLUS OR INITIAL INFUSION RATE. [facility] heparin (1,000 unit/mL, 10 mL vial) for Rebolusing 12-10 16:10: 55 12-15 21:32 :38 No 3000U FOR REBOLUSING , Starting on Mon12/11/23 at 1110, Until 12/16/23 at 1632, Routine, Dosing based on aPPT testing parameters (refer to continuous heparin drip order). [facility] methocarbam oL (ROBAXIN) tablet 1,000 mg 12-10 14:52: 46 Yes 1000mg 1,000 mg, Oral, TIDPRN, Starting on Mon12/11/23 at 0952, Until Discontinu ed, Routine, Muscle Spasms [facility] metoprolol tartrate (LOPRESSOR) tablet 25 mg 12-10 14:45: 00 12-12 18:48 :53 No 25mg 25 mg, Oral, BID, First dose on Mon12/11/23 at 0945, Until Discontinu ed, Routine [facility] magnesium sulfate in water 2 gram/50 mL (4 %) infusion 2 g 12-10 12:00: 00 12-10 14:42 :00 No 2g 2 g, IV Piggyback, Administer over 60 Minutes, ONCE, 1 dose, On Mon12/11/23 at 0700, Routine [facility] potassium phosphate 30 mmol in NaCl 0.9% (NS) 250 mL piggyback 12-10 11:12: 00 12-10 17:20 :00 No 30mmol 30 mmol, IV Piggyback, ONCE, 1 dose, On Mon12/11/23 at 0615, 250 mL [facility] potassium chloride in water (KCL) 20 mEq/100 mL RTU IVPB 20 mEq 12-10 11:00: 00 12-10 15:42 :00 No 20meq 20 mEq, IV Piggyback, at 50 mL/hr Administer over 2 Hours, Q2H, 2 doses, First dose on Mon12/11/23 at 0600, Last dose on Mon12/11/23 at 0800, Routine [facility] furosemide (LASIX) injection 40 mg 12-09 14:15: 00 12-11 17:01 :40 No 40mg 40 mg, Slow IV Push, Q12H, First dose on Mon12/10/23 at 0915, Until Discontinu ed, DIMAS [facility] potassium chloride in water (KCL) 20 mEq/100 mL RTU IVPB 20 mEq 12-09 12:00: 00 12-09 13:50 :42 No 20meq 20 mEq, IV Piggyback, at 50 mL/hr Administer over 2 Hours, ONCE, 1 dose, On [place] 12/10/23 at 0700, Routine [facility] KCL (KLOR-CON M20) tablet 40 mEq 12-09 01:00: 00 12-19 19:14 :39 No 40meq 40 mEq, Oral, BID, First dose (after last modificati on) on 12/09/23 at 2000, Until Discontinu ed, DIMAS [facility] QUEtiapine (SEROQUEL) tablet 50 mg 12-09 01:00: 00 12-10 16:56 :22 No 50mg 50 mg, Oral, BID, First dose on 12/09/23 at 2000, Until Discontinu ed, Routine [facility] KCL (KLOR-CON M20) tablet 40 mEq 12-08 17:45: 00 12-08 17:09 :00 No 40meq 40 mEq, Oral, ONCE, 1 dose, On 12/09/23 at 1245, DIMAS [facility] sucralfate (CARAFATE) tablet 1 g 12-08 16:30: 00 Yes 1g 1 g, Oral, AC+HS, First dose on Mon12/09/23 at 1130, Until Discontinu ed, Routine [facility] fluticasone propionate 50 mcg/actuati on nasal spray 1 [place] 12-08 01:00: 00 12-22 00:59 :00 No 1{spray } 1 [place], Nasal, BID, 28 doses, First dose on Mon12/08/23 at 1999, Last dose on Mon12/22/23 at 0800, Routine [facility] sodium chloride (OCEAN MIST NASAL) 0.65 % nasal spray 1 [place] 12-08 01:00: 00 12-22 00:59 :00 No 1{spray } 1 [place], Nasal, BID, 28 doses, First dose on Mon12/08/23 at 1999, Last dose on Mon12/22/23 at 0800, Routine [facility] oxymetazoli ne (OXYMETAZOL INE HCL) 0.05 % nasal spray 1 [place] 12-08 01:00: 00 12-11 00:59 :00 No 1{spray } 1 [place], Nasal, BID, 6 doses, First dose on Mon12/08/23 at 1999, Last dose on Mon12/11/23 at 0800, Routine [facility] acetaminoph en (TYLENOL) tablet 1,000 mg 12-07 19:00: 00 Yes 1000mg 1,000 mg, Oral, Q8H, First dose on Mon12/08/23 at 1400, Until Discontinu ed, [facility] methocarb[facility]L (ROBAXIN) tablet 1,000 mg 12-07 19:00: 00 12-10 14:31 :59 No 1000mg 1,000 mg, Oral, TID, First dose on Mon12/08/23 at 1400, Until Discontinu ed, Routine [facility] Potassium Bicarb-Citr ic Acid (EFFER-K) effervescen t tablet 40 mEq 12-07 17:00: 00 12-08 13:39 :42 No 40meq 40 mEq, Oral, BID, 6 doses, First dose on Mon12/08/23 at 1200, Last dose on Mon12/10/23 at 2000, Routine [facility] bismuth subsalicyla te (PEPTO BISMOL) chewable tablet 524 mg 12-07 16:28: 37 12-10 14:39 :38 No 524mg 524 mg, Oral, Q6HPRN, Starting on Mon12/08/23 at 1128, Until Mon12/11/23 at 0939, Routine, Indigestio n [facility] iopamidol (ISOVUE 370-500 mL) injection 80 mL 12-07 16:15: 00 12-07 16:10 :00 No [id number] 80mL 80 mL, Intravenou s, ONCE, 1 dose, On Mon12/08/23 at 1115, Routine [facility] pantoprazol e (PROTONIX) EC tablet 40 mg 12-07 15:45: 00 Yes 40mg 40 mg, Oral, DAILY, First dose on Mon12/08/23 at 1045, Until Discontinu ed, Routine [facility] furosemide (LASIX) injection 40 mg 12-07 12:54: 00 12-07 13:11 :00 No 40mg 40 mg, Slow IV Push, ONCE, 1 dose, On Mon12/08/23 at 0800, DIMAS [facility] potassium chloride in water (KCL) 20 mEq/100 mL RTU IVPB 20 mEq 12-07 11:00: 00 12-07 15:13 :41 No 20meq 20 mEq, IV Piggyback, at 50 mL/hr Administer over 2 Hours, Q2H, 2 doses, First dose on Mon12/08/23 at 0600, Last dose on Mon12/08/23 at 0800, Routine [facility] acetaminoph en (OFIRMEV) IV piggyback 1,000 mg 12-07 09:30: 00 12-07 08:58 :00 No 1000mg 1,000 mg, IV Piggyback, at 400 mL/hr Administer over 15 Minutes, ONCE, 1 dose, On Mon12/08/23 at 0430, Routine, Is the patient strict NPO and unable to tolerate oral medication s? Yes [facility] piperacilli n-tazobacta m (ZOSYN) 3.375 [...] Site: Abdominal, Duration of Therapy: 7 days [facility] methocarbam oL (ROBAXIN) injection 1,000 mg 12-07 03:00: 00 12-07 13:43 :18 No 1000mg 1,000 mg, Slow IV Push, Q8H, First dose (after last reorder) on Mon12/07/23 at 2200, Until Discontinu ed, Administer over 3-5 Minutes [facility] Lidocaine (LIDOCARE) 4 % patch 1 Patch 12-07 01:30: 00 Yes 1{patch } 1 Patch, Topical, Administer over 12 Hours, DAILY, First dose on Mon12/07/23 at 2030, Until Discontinu ed, Routine [facility] acetaminoph en (OFIRMEV) IV piggyback 1,000 mg 12-07 01:30: 00 12-07 02:40 :00 No 1000mg 1,000 mg, IV Piggyback, at 400 mL/hr Administer over 15 Minutes, ONCE, 1 dose, On Mon12/07/23 at 2030, Routine, Is the patient strict NPO and unable to tolerate oral medication s? Yes [facility] HYDROmorpho ne (DILAUDID) injection 0.5 mg 12-07 01:27: 03 12-09 01:26 :03 No .5mg 0.5 mg, Intravenou s, Q4HPRN, Starting on Christie 12/07/23 at 2026, Until 12/09/23 at 2025, Routine, Pain (scale 7-10), Is this medication approved by a Faculty level provider? 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 Yes [facility] methocarbam oL (ROBAXIN) injection 1,000 mg 12-06 19:00: 00 12-06 19:03 :00 No 1000mg 1,000 mg, Slow IV Push, Q8H, 1 dose, First dose (after last modificati on) on Christie 12/07/23 at 1400, Administer over 3-5 Minutes [facility] potassium chloride 40 mEq in 100 mL IVPB 12-06 14:00: 00 12-06 18:10 :00 No 40meq 40 mEq, Intravenou s, ONCE, 1 dose, On Christie 12/07/23 at 0900, 100 mL [facility] acetaminoph en ([facility]) IV piggyback 1,000 mg 12-06 13:45: 00 12-06 13:41 :00 No 1000mg 1,000 mg, IV Piggyback, at 400 mL/hr Administer over 15 Minutes, ONCE, 1 dose, On Christie 12/07/23 at 0845, Routine, Is the patient strict NPO and unable to tolerate oral medication s? Yes [facility] IV piggyback 1,000 mg 12-06 05:45: 00 12-06 06:07 :00 No 1000mg 1,000 mg, IV Piggyback, at 400 mL/hr Administer over 15 Minutes, ONCE, 1 dose, On Christie 12/07/23 at 0045, Routine, Is the patient strict NPO and unable to tolerate oral medication s? Yes [facility] heparin 1,000 unit/mL injection 1,000 Units 12-06 05:45: 00 12-06 05:17 :00 No 1000U ONCE, 1 dose, On Christie 12/07/23 at 0045, Routine, For Priming of Ports: After initial saline flush, prime each port with heparin according to the priming volume listed on each catheter port for catheter lock. [facility] acetaminoph en ([facility]) IV piggyback 1,000 mg 12-06 02:30: 00 12-06 01:02 :00 No 1000mg 1,000 mg, IV Piggyback, at 400 mL/hr Administer over 15 Minutes, ONCE, 1 dose, On Mon12/06/23 at 2130, Routine, Is the patient strict NPO and unable to tolerate oral medication s? Yes [facility] acetaminoph en ([facility]) IV piggyback 1,000 mg 12-05 18:30: 00 12-05 17:59 :00 No 1000mg 1,000 mg, IV Piggyback, at 400 mL/hr Administer over 15 Minutes, ONCE, 1 dose, On Mon12/06/23 at 1330, Routine, Is the patient strict NPO and unable to tolerate oral medication s? Yes [facility] dexMEDEtomi dine 200 mcg in 0.9 % [...] at maximum allowed dose, contact prescriber . [facility] glycerin/mi neral oil (AGLO ENEMA) (COMPOUNDED ) Enem 225 mL 12-05 14:45: 00 12-05 19:59 :00 No 225mL 225 mL, Rectal, ONCE, 1 dose, On Mon12/06/23 at 0945, Routine [facility] mineral oil (MINERAL OIL EXTRA HEAVY) oral liquid 30 mL 12-05 14:00: 00 Yes 30mL 30 mL, Oral, DAILY, First dose on Mon12/06/23 at 0900, Until Discontinu ed, Routine [facility] sodium hypochlorit e 0.25% (DAKIN'S SOLUTION) solution 12-05 14:00: 00 Yes Topical, QAM, First dose on Mon12/06/23 at 0900, Until Discontinu ed, Routine [facility] polyethylen e glycol 3350 powder 17 g 12-05 14:00: 00 12-25 13:28 :38 No 17g 17 g, Oral, DAILY, First dose on Mon12/06/23 at 0900, Until Discontinu ed, Routine [facility] lactated ringers IV infusion 1,000 mL 12-05 14:00: 00 12-12 21:44 :11 No 1000mL at 42 mL/hr, 1,000 mL, IV Infusion, CONTINUOUS , Starting on Mon12/06/23 at 0900, Until Mon12/13/23 at 1644, Routine [facility] furosemide (LASIX) injection 80 mg 12-05 12:00: 00 2024- 09-11 11:30 :00 No 80mg 80 mg, Slow IV Push, ONCE, 1 dose, On Mon12/06/23 at 0700, Routine [facility] acetaminoph en ([facility]) IV piggyback 1,000 mg 12-05 10:30: 00 12-05 10:51 :00 No 1000mg 1,000 mg, IV Piggyback, at 400 mL/hr Administer over 15 Minutes, ONCE, 1 dose, On Mon12/06/23 at 0530, Routine, Is the patient strict NPO and unable to tolerate oral medication s? Yes [facility] chlorhexidi ne (PERIDEX) 0.12 % mouthwash 15 mL 12-05 01:00: 00 Yes 15mL 15 mL, Oral (Swish And Spit Out), BID, First dose on Mon12/05/23 at 2000, Until Discontinu ed, Routine [facility] lactated ringers IV infusion 1,000 mL 12-04 16:45: 00 12-05 13:55 :24 No 1000mL at 100 mL/hr, 1,000 mL, IV Infusion, CONTINUOUS , Starting on Mon12/05/23 at 1145, Until Mon12/06/23 at 0855, Routine [facility] acetaminoph en ([facility]) IV piggyback 1,000 mg 12-04 15:45: 00 12-04 15:26 :00 No 1000mg 1,000 mg, IV Piggyback, at 400 mL/hr Administer over 15 Minutes, ONCE, 1 dose, On Mon12/05/23 at 1045, Routine, Is the patient strict NPO and unable to tolerate oral medication s? Yes [facility] heparin (porcine) injection 5,000 Units 12-04 13:00: 00 12-10 16:12 :08 No 5000U 5,000 Units, Subcutaneo us, Q8H, First dose on Mon12/05/23 at 0800, Until Discontinu ed, Routine [facility] NORepinephr [facility]e (LEVOPHED) 4 mg/250 [...] intravenou s vasopresso r at a time. [facility] albumin (ALBUMINAR 25%) 25 % [...] and optimal diuretic therapy alone has failed, human geography faculty member approving Restricted medication : TAYLOR SEGUNDO [facility] acetaminoph en (OFIRMEV) IV piggyback 1,000 mg 12-04 07:45: 00 12-04 08:46 :00 No 1000mg 1,000 mg, IV Piggyback, at 400 mL/hr Administer over 15 Minutes, ONCE, 1 dose, On Mon12/05/23 at 0245, Routine, Is the patient strict NPO and unable to tolerate oral medication s? Yes [facility] methocarbam oL (ROBAXIN) injection 1,000 mg 12-04 03:00: 00 12-06 15:31 :36 No 1000mg 1,000 mg, Slow IV Push, Q8H, First dose on Mon12/04/23 at 2200, Until Discontinu ed, Administer over 3-5 Minutes [facility] FENTanyl (PF) (SUBLIMAZE) injection 50 mcg 12-04 01:30: 00 12-04 00:30 :00 No 50ug 50 mcg, Slow IV Push, ONCE, 1 dose, On Mon12/04/23 at 2030, Routine [facility] albumin (ALBUMINAR 25%) 25 % [...] and optimal diuretic therapy alone has failed, human geography faculty member approving Restricted medication : TONEY ELKINS [facility] acetaminoph en (OFIRMEV) IV piggyback 1,000 mg 12-03 23:45: 00 12-04 01:44 :04 No 1000mg 1,000 mg, IV Piggyback, at 400 mL/hr Administer over 15 Minutes, ONCE, 1 dose, On Mon12/04/23 at 1845, Routine, Is the patient strict NPO and unable to tolerate oral medication s? Yes [facility] sulfur hexafluorid e microsphr (LUMASON) injection 5 mL 12-03 20:45: 00 12-03 20:32 :00 No [id number] 5mL 5 mL, Intravenou s, ONCE, 1 dose, On Mon12/04/23 at 1545, Routine [facility] lactated ringers IV infusion 1,000 mL 12-03 19:45: 00 12-03 21:58 :00 No 1000mL at 999 mL/hr, 1,000 mL, Intravenou s, ONCE, 1 dose, On Mon12/04/23 at 1445, Routine [facility] furosemide (LASIX) injection 40 mg 12-03 17:30: 00 12-03 17:50 :00 No 40mg 40 mg, Slow IV Push, ONCE, 1 dose, On Mon12/04/23 at 1245, Routine [facility] albumin (ALBUMINAR 25%) 25 % [...] and optimal diuretic therapy alone has failed, human geography faculty member approving Restricted medication : TAYLOR SEGUNDO [facility] metoprolol (LOPRESSOR) injection 5 mg 12-03 09:38: 03 12-03 23:33 :32 No 5mg 5 mg, Intravenou s, Q6HPRN, Starting on Mon12/04/23 at 0438, Until Mon12/04/23 at 1833, Routine, HR >110, atrial fibrillati on [facility] NORepinephr ine (LEVOPHED) 4 mg/250 [...] intravenou s vasopresso r at a time. [facility] fentaNYL PF (SUBLIMAZE) 10 mcg/mL [...] at maximum allowed dose, contact prescriber . [facility] propofoL IV infusion 12-03 07:55: [...] vials should be discarded after 12 hours. [facility] midazolam (VERSED) injection 12-03 06:32: 00 12-03 07:25 :17 No IV Push, ONCE INTRA PROCEDURE, Starting on Mon12/04/23 at 0132, Until Mon12/04/23 at 0225, Routine, Intra-op [facility] sodium hypochlorit e 0.25% (DAKIN'S SOLUTION) solution 12-03 05:53: 00 12-03 06:59 :50 No PRN, Starting on Mon12/04/23 at 0053, Until Mon12/04/23 at 0159, Routine, Intra-op [facility] Transfuse Packed RBC (in units)~ 12-03 03:27: 00 12-03 07:25 :17 No Routine [facility] NORepinephr ine (LEVOPHED) 4 mg in NaCl 0.9% (NS) 250 mL infusion 12-03 03:07: 00 12-03 07:25 :17 No IV Infusion, CONTINUOUS PRN, Starting on Mon12/03/23 at 2207, Intra-op [facility] Transfuse Packed RBC (in units)~On hold for procedure; 12/02 0800; Infuse Each Unit Over: 2 Hours 12-03 02:48: 41 12-03 07:25 :17 No Routine [facility] labetaloL (NORMODYNE) 5 mg/mL injection 12-03 02:40: 00 12-03 07:25 :17 No Slow IV Push, ONCE INTRA PROCEDURE, Starting on Mon12/03/23 at 2140, Until Mon12/04/23 at 022, Routine, Intra-op [facility] lactated ringers IV infusion 12-03 01:26: 00 12-03 07:25 :17 No IV Infusion, CONTINUOUS PRN, Starting on Mon12/03/23 at 2025, Until Mon12/04/23 at 0225, Routine, Intra-op [facility] PHENYLephri ne 1000 mcg/10 mL in 0.9% NaCl syringe 12-03 01:09: 00 12-03 07:25 :17 No Slow IV Push, ONCE INTRA PROCEDURE, Starting on Mon12/03/23 at 2008, Until Mon12/04/23 at 0225, Routine, Intra-op [facility] NORepinephr ine (LEVOPHED) 4 mg in NaCl 0.9% (NS) 250 mL infusion 12-03 01:03: 00 12-03 07:25 :17 No IV Infusion, CONTINUOUS PRN, Starting on Mon12/03/23 at 2002, Intra-op [facility] rocuronium (ZEMURON) injection 12-03 00:56: 00 12-03 07:25 :17 No IV Push, ONCE INTRA PROCEDURE, Starting on Mon12/03/23 at 1956, Until Mon12/04/23 at 0225, Routine, Intra-op [facility] propofoL IV infusion 12-03 00:56: 00 12-03 07:25 :17 No Slow IV Push, ONCE INTRA PROCEDURE, Starting on Mon12/03/23 at 195, Until Mon12/04/23 at 0225, Routine, Intra-op [facility] lidocaine 1% (XYLOCAINE) 100 mg/10 mL (1 %) injection 12-03 00:56: 00 12-03 07:25 :17 No Slow IV Push, ONCE INTRA PROCEDURE, Starting on Mon12/03/23 at 1956, Until Mon12/04/23 at 0225, Routine, [facility] FENTanyl (PF) (SUBLIMAZE) injection 12-03 00:56: 00 12-03 07:25 :17 No Slow IV Push, ONCE INTRA PROCEDURE, Starting on Mon12/03/23 at 195, Until Mon12/04/23 at 022, Routine, Intra-op [facility] lactated ringers IV infusion 12-03 00:47: 00 12-03 07:25 :17 No IV Infusion, CONTINUOUS PRN, Starting on Mon12/03/23 at 1947, Until Mon12/04/23 at 022, Routine, Intra-op [facility] acetaminoph en (OFIRMEV) IV piggyback 1,000 mg 12-02 23:15: 00 12-02 22:43 :00 No 1000mg 1,000 mg, IV Piggyback, at 400 mL/hr Administer over 15 Minutes, ONCE, 1 dose, On Mon12/03/23 at 1815, Routine, Is the patient strict NPO and unable to tolerate oral medication s? Yes [facility] iopamidol (ISOVUE 370-500 mL) injection 80 mL 12-02 22:12: 00 12-02 22:30 :00 No [id number] 80mL 80 mL, Intravenou s, ONCE, 1 dose, On Mon12/03/23 at 1730, Routine [facility] pantoprazol e (PROTONIX) injection 40 mg 12-02 20:02: 27 12-07 16:33 :39 No 40mg 40 mg, Slow IV Push, Q24H, First dose (after last modificati on) on Mon12/03/23 at 1515, Until Discontinu ed [facility] HYDROmorpho ne (DILAUDID) injection 0.4 mg 12-02 18:53: 24 12-03 06:57 :49 No .4mg 0.4 mg, Intravenou s, Q5MIN PRN, 3 doses, Starting on Mon12/03/23 at 1353, Until Mon12/04/23 at 0157, Routine, Pain (scale 7-10), For disimpacti on, Is this medication approved by a Faculty level provider? Yes, human geography faculty member approving Restricted medication : TAYLOR SEGUNDO [facility] morpHINE 30 mg/30 mL (fixed dose) [employer] injection 12-02 18:45: 00 12-03 06:57 :49 No Patient Bolus Dose: 1 mg, Lockout Interval: 12 Minutes, Basal Rate: 0 mg/hr, Four Hour Dose Limit: 32 mg, Intravenou s, 30 mL, CONTINUOUS , Starting on Mon12/03/23 at 1345, Until Mon12/04/23 at 0157 [facility] naloxone (NARCAN) injection 0.4 mg 12-02 17:34: 30 Yes .4mg 0.4 mg, Slow IV Push, PRN, Starting on Mon12/03/23 at 1234, Until Discontinu ed, Routine, Sedation/R espiratory Depression [facility] piperacilli n-tazobacta m (ZOSYN) 3.375 [...] Site: Abdominal, Duration of Therapy: 7 days [facility] acetaminoph en ([facility]) IV piggyback 1,000 mg 12-02 15:15: 00 12-02 15:34 :00 No 1000mg 1,000 mg, IV Piggyback, at 400 mL/hr Administer over 15 Minutes, ONCE, 1 dose, On Mon12/03/23 at 1015, Routine, Is the patient strict NPO and unable to tolerate oral medication s? Yes [facility] HYDROmorpho ne (DILAUDID) injection 0.4 mg 12-02 15:04: 12 12-02 17:35 :33 No .4mg 0.4 mg, Slow IV Push, Q4HPRN, Starting on Mon12/03/23 at 1004, Until Mon12/03/23 at 1235, Routine, Pain (scale 7-10), Is this medication approved by a Faculty level provider? Yes, human geography faculty member approving Restricted medication : TAYLOR SEGUNDO [facility] acetaminoph en ([facility]) IV piggyback 1,000 mg 12-02 10:15: 00 12-02 09:49 :00 No 1000mg 1,000 mg, IV Piggyback, at 400 mL/hr Administer over 15 Minutes, ONCE, 1 dose, On Mon12/03/23 at 0515, Routine, Is the patient strict NPO and unable to tolerate oral medication s? Yes [facility] pantoprazol e (PROTONIX) injection 40 mg 12-02 09:15: 00 12-02 18:57 :58 No 40mg 40 mg, Slow IV Push, Q24H, 3 doses, First dose on Mon12/03/23 at 0415, Last dose on Mon12/05/23 at 0415 [facility] lactated ringers IV infusion 1,000 mL 12-02 09:00: 00 12-04 16:44 :09 No 1000mL at 150 mL/hr, 1,000 mL, IV Infusion, CONTINUOUS , Starting on Mon12/03/23 at 0400, Until Mon12/05/23 at 1144, Routine [facility] morphine (2 mg/mL) injection 4 mg 12-02 08:07: 13 12-02 15:05 :09 No 4mg 4 mg, Slow IV Push, Q3HPRN, Starting on Mon12/03/23 at 0307, Until Mon12/03/23 at 1005, Routine, Pain (scale 7-10), Pain unrelieved by scheduled analgesics [facility] ondansetron (ZOFRAN (PF)) injection 4 mg 12-02 08:06: 29 Yes 4mg [facility] piperacilli n-tazobacta m (ZOSYN) 3.375 g in NaCl 0.9% (NS) 100 mL MINI-BAG 12-02 07:53: 00 12-02 08:36 :00 No 3.375g 3.375 g, IV Piggyback, ONCE, 1 dose, On Mon12/03/23 at 0300, Administer over 30 Minutes, 100 mL, Reason for Anti-Infec tive: Documented Infection, Documented Infection Site: Abdominal, Duration of Therapy: 7 days [facility] HYDROcodone -acetaminop hen 5-325 mg tablet 11-27 00:00: 00 01-13 00:00 :00 No [id number] 1{tbl} Take 1 tablet by mouth every 6 (six) hours as needed for Pain (scale 7-10). Indication s: acute pain, chronic pain [facility] gabapentin 100 mg capsule 11-23 00:00: 00 Yes [id number] 100mg Take 1 capsule by mouth in the morning. [facility] sennosides 8.6 mg tablet 11-23 00:00: 00 Yes [id number] 8.6mg Take 1 tablet by mouth in the morning. [facility] polyethylen e glycol 3350 17 gram powder 11-23 00:00: 00 12-02 00:00 :00 No [id number] 17g Take 1 Packet by mouth in the morning. [facility] perflutren lipid microsphere s (DEFINITY) injection 2 mL 11-22 15:30: 00 11-22 15:30 :00 No [id number] 2mL 2 mL, IV Push, ONCE, 1 dose, On Mon11/23/23 at 1030, Routine [facility] Potassium Bicarb-Citr ic Acid (EFFER-K) effervescen t tablet 40 mEq 11-22 13:15: 00 11-22 13:06 :00 No 40meq 40 mEq, Oral, ONCE, 1 dose, On Mon11/23/23 at 0815, Routine [facility] cephALEXin (KEFLEX) capsule 500 mg 11-22 13:00: 00 11-27 12:59 :00 No 500mg 500 mg, Oral, Q12H, 10 doses, First dose on Mon11/23/23 at 0800, Last dose on Mon11/27/23 at 2000, DIMAS, Reason for Anti-Infec tive: Documented Infection, Documented Infection Site: Urine, Duration of Therapy: 7 days [facility] ferrous sulfate 325 mg (65 mg iron) tablet 11-22 00:00: 00 Yes [id number] 325mg Take 1 tablet by mouth every other day. [facility] cephALEXin 500 mg capsule 11-22 00:00: 00 01-13 00:00 :00 No [id number] 500mg Take 1 capsule by mouth every 12 (twelve) hours. [facility] HYDROcodone -acetaminop hen 5-325 mg tablet 11-22 00:00: 00 11-27 00:00 :00 No [id number] 1{tbl} Take 1 tablet by mouth every 6 (six) hours as needed for Pain (scale 7-10) for up to 7 days. Indication s: acute pain [facility] lidocaine 4% (L-M-X 4) 4 % cream 11-21 22:00: 00 11-21 22:36 :00 No Topical, ONCE, 1 dose, On Mon11/22/23 at 1700, Routine [facility] gabapentin (NEURONTIN) capsule 100 mg 11-21 18:15: 00 Yes 100mg 100 mg, Oral, DAILY, First dose (after last modificati on) on Mon11/22/23 at 1315, Until Discontinu ed, Routine [facility] HYDROcodone -acetaminop hen (NORCO 5) tablet 1 tablet 11-21 14:45: 33 Yes 1{tbl} 1 tablet, Oral, Q6HPRN, Starting on Mon11/22/23 at 0945, Until Discontinu ed, Routine, Pain (scale 7-10) [facility] simethicone (GAS RELIEF (SIMETHICON E)) chewable tablet 80 mg 11-21 14:00: 00 Yes 80mg 80 mg, Oral, PC+HS, First dose on Mon11/22/23 at 0900, Until Discontinu ed, Routine [facility] cefTRIAXone (ROCEPHIN) 1,000 mg in NaCl 0.9% (NS) 100 mL MINI-BAG 11-20 21:00: 00 11-22 12:28 :15 No 1000mg 1,000 mg, IV Piggyback, Q24H ABX, 5 doses, First dose on Mon11/21/23 at 1600, Last dose on Mon11/25/23 at 1600, Administer over 30 Minutes, 100 mL, Reason for Anti-Infec tive: Documented Infection, Documented Infection Site: Urine, Duration of Therapy: 7 days [facility] polyethylen e glycol 3350 powder [...] Until Discontinu ed, Routine [Order 2 End] [facility] ramelteon (ROZEREM) tablet 8 mg 11-20 05:00: 00 11-20 05:00 :00 No 8mg 8 mg, Oral, ONCE NOW, 1 dose, On Mon11/21/23 at 0000, Routine [facility] glycerin/mi neral oil (AGLO ENEMA) (COMPOUNDED ) Enem 225 mL 11-20 04:19: 23 Yes 225mL 225 mL, Rectal, PRN, Starting on Mon11/20/23 at 2319, Until Discontinu ed, Routine, Constipati on unresolved by oral medication s [facility] heparin (porcine) injection 5,000 Units 11-20 03:00: 00 Yes 5000U 5,000 Units, Subcutaneo us, Q8H, First dose on Mon11/20/23 at 2200, Until Discontinu ed, Routine [facility] acetaminoph en (TYLENOL) tablet 650 mg 11-20 02:16: 20 Yes 650mg [facility] insulin lispro (human) (HumaLOG U-100) injection 2 Units 11-19 22:22: 30 Yes 2U 2 Units, Subcutaneo us, PRN - SEE INSTRUCTIO NS, 1 dose, Starting on Mon11/20/23 at 1722, Until Discontinu ed, Routine, For blood glucose > 300 mg/dL [facility] dextrose 10% (D10W) bolus infusion [...] carb snack - Sprite or cranberry juice. [facility] NaCl 0.9% (NS) bolus infusion 500 mL 11-19 22:00: 00 11-19 23:24 :00 No [id number] 500mL at 999 mL/hr, 500 mL, IV Piggyback, ONCE, 1 dose, On Mon11/20/23 at 1700, STAT [facility] lidocaine (XYLOCAINE) 2 % jelly URO-JET 10 mL 11-19 20:45: 00 11-19 22:32 :00 No 10mL 10 mL, Urethral, ONCE, 1 dose, On Mon11/20/23 at 1545, Routine [facility] sodium bicarbonate 150 mEq in D5W 1,000 mL IV infusion 11-19 20:30: 00 11-20 06:30 :00 No 150meq IV Infusion, at 200 mL/hr, 150 mEq, ONCE, 1 dose, On Mon11/20/23 at 1530, DIMAS [facility] insulin regular human (HUMULIN R) injection 10 Units 11-19 20:30: 00 11-19 23:14 :00 No 10U 10 Units, IV Push, ONCE, 1 dose, On Mon11/20/23 at 1530, DIMAS, Indication for insulin: Hyperkalem ia- Please use the Insulin Protocol for Hyperkalem ia order set [facility] dextrose 50 % in water (D50W) injection 50 mL 11-19 20:30: 00 11-19 23:06 :00 No 50mL 50 mL, Slow IV Push, ONCE, 1 dose, On Mon11/20/23 at 1530, DIMAS [facility] glucagon HCL injection 1 mg 11-19 20:17: 46 Yes 1mg 1 mg, Intramuscu lar, PRN, Starting on Mon11/20/23 at 1517, Until Discontinu ed, DIMAS, Low blood sugar, Blood Glucose < or = 70 mg/dL and patient is NPO, unable to swallow or has mental changes. [facility] dextrose 50 % in water (D50W) injection 25 mL 11-19 20:17: 46 Yes 25mL 25 mL, Slow IV Push, PRN, Starting on Mon11/20/23 at 1517, Until Discontinu ed, DIMAS, Blood Glucose < or = 70 mg/dL and patient is NPO, unable to swallow or has mental status changes. [facility] fentanyl PF (SUBLIMAZE (PF)) injection 12.5 mcg 11-19 20:00: 00 11-19 20:34 :00 No 12.5ug 12.5 mcg, Slow IV Push, ONCE, 1 dose, On Mon11/20/23 at 1500, Routine [facility] piperacilli n-tazobacta m (ZOSYN) 2.25 g in NaCl 0.9% (NS) 100 mL MINI-BAG 11-19 20:00: 00 11-19 22:31 :00 No 2.25g 2.25 g, IV Piggyback, ONCE, 1 dose, On Mon11/20/23 at 1500, Administer over 30 Minutes, 100 mL, Reason for Anti-Infec tive: Documented Infection, Documented Infection Site: Urine, Duration of Therapy: Once (ED) [facility] metoclopram margarita HCl (REGLAN) injection 10 mg 11-19 20:00: 00 11-19 20:48 :00 No 10mg 10 mg, Slow IV Push, ONCE, 1 dose, On Mon11/20/23 at 1500, DIMAS [facility] NaCl 0.9% (NS) bolus infusion 500 mL 11-19 17:30: 00 11-19 22:31 :00 No 500mL at 999 mL/hr, 500 mL, IV Infusion, ONCE, 1 dose, On Mon11/20/23 at 1230, STAT [facility] Vital Signs Vital Name Observation Time Observation Value Comments S ource Systolic blood pressure 2024-01-14 12:27:00 121 mm[Hg] [facility] Diastolic blood pressure 2024-01-14 12:27:00 68 mm[Hg] [facility] Heart rate 2024-01-14 12:27:00 86 /min [facility] Body temperature 2024-01-14 12:27:00 36.17 [facility] Respiratory rate 2024-01-14 12:27:00 18 /min [facility] Oxygen saturation in Arterial blood by Pulse oximetry 2024-01-14 12:27:00 97 /min [facility] Body height 2024-01-06 23:35:00 170.2 cm [facility] Body weight 2024-01-06 23:35:00 170.552 kg [facility] BMI 2024-01-06 23:35:00 58.89 kg/m2 [facility] Systolic blood pressure 2023-12-29 14:00:00 133 mm[Hg] [facility] Diastolic blood pressure 2023-12-29 14:00:00 62 mm[Hg] [facility] Heart rate 2023-12-29 14:00:00 87 /min [facility] Body temperature 2023-12-29 14:00:00 36.56 Adore [facility] Respiratory rate 2023-12-29 14:00:00 17 /min [facility] Oxygen saturation in Arterial blood by Pulse oximetry 2023-12-29 14:00:00 98 /min [facility] Body height 2023-12-27 13:00:00 172.7 cm [facility] Body weight 2023-12-27 13:00:00 170.099 kg [facility] BMI 2023-12-27 13:00:00 57.02 kg/m2 [facility] Respiratory rate 2023-12-04 00:52:00 30 /min [facility] [facility] 2023-12-03 23:00:00 98 /min [facility] Respiratory rate 2023-12-03 23:00:00 28 /min [facility] Oxygen saturation in Arterial blood by Pulse oximetry 2023-12-03 23:00:00 99 /min [facility] Systolic blood pressure 2023-12-03 22:00:00 155 mm[Hg] [facility] Diastolic blood pressure 2023-12-03 22:00:00 76 mm[Hg] [facility] Body temperature 2023-12-03 21:00:00 37.61 Adore [facility] Body height 2023-12-03 15:19:00 172.7 cm [facility] Body weight 2023-12-03 15:19:00 170.1 kg [facility] BMI 2023-12-03 15:19:00 57.02 kg/m2 [facility] Systolic blood pressure 2023-11-23 16:54:00 136 mm[Hg] [facility] Diastolic blood pressure 2023-11-23 16:54:00 61 mm[Hg] [facility] Heart rate 2023-11-23 16:54:00 92 /min Unive [facility] Body temperature 2023-11-23 16:54:00 36.22 Adore [facility] Respiratory rate 2023-11-23 16:54:00 18 /min [facility] Oxygen saturation in Arterial blood by Pulse oximetry 2023-11-23 16:54:00 96 /min [facility] Body height 2023-11-21 01:17:00 170.2 cm [facility] Body weight 2023-11-21 01:17:00 171.913 kg [facility] BMI 2023-11-21 01:17:00 59.36 kg/m2 [facility] Heart rate 2023-12-04 16:20:00 106 /min [facility] [place] [facility] Respiratory rate 2023-12-04 16:20:00 22 /min [facility] Oxygen saturation in Arterial blood by Pulse oximetry 2023-12-04 16:20:00 100 /min [facility] Body temperature 2023-12-04 13:00:00 37.28 Adore [facility] Systolic blood pressure 2023-12-04 07:15:00 194 mm[Hg] [facility] Diastolic blood pressure 2023-12-04 07:15:00 165 mm[Hg] [facility] Body height 2023-12-03 15:19:00 172.7 cm [facility] Body weight 2023-12-03 15:19:00 170.1 kg [facility] BMI 2023-12-03 15:19:00 57.02 kg/m2 [facility] Procedures Procedure Date / Time Performed Performing Clinician Source PHOSPHORUS 2024-01-08 09:03:00 [facility] 2024-01-08 09:03:00 [facility] [place] [facility]OLIC PANEL (NA, K, CL, CO2, GLUCOSE, BUN, CREATININE, CA) 2024-01-08 09:03[facility] 2024-01-08 09:03[facility]00 [facility] 2024-01-07 08:22:00 JulienShira [facility] MAGNESIUM 2024-01-07 08:22:00 [facility] [place] [facility] METABOLIC PANEL (NA, K, CL, CO2, GLUCOSE, BUN, CREATININE, CA) 2024-01-07 08:22:00 Julien [facility] CBC WITH DIFF 2024-01-07 08:22:00 Julien [facility] MRSA / MSSA SCREEN BY PCRMARY GRACE 2024-01-07 01:55:00 Julien [facility] PHOSPHORUS 2024-01-07 01:46:00 [facility] 2024-01-07 01:46:00 Julien [facility] [place] BASIC METABOLIC PANEL (NA, K, CL, CO2, GLUCOSE, BUN, CREATININE, CA) 2024-01-07 01:46:00 Julien [facility] CBC WITH DIFF 2024-01-07 01:46:00 Julien [facility] CT ABDOMEN PELVIS W CONTRAST 2023-12-22 17:55:36 Yoni Simon [facility] PHOSPHORUS 2023-12-20 10:27:00 Corey Carias [facility] MAGNESIUM 2023-12-20 10:27:00 Corey Carias [facility] BASIC METABOLIC PANEL (NA, K, CL, CO2, GLUCOSE, BUN, CREATININE, CA) 2023-12-20 10:27:00 Corey Costello [facility] CBC WITH DIFF 2023-12-20 10:27:00 Corey Carias [facility] PHOSPHORUS 2023-12-19 14:46:00 Theo Marquised Corey mccarthy [facility] MAGNESIUM 2023-12-19 14:45:00 Corey Carias [facility] PHOSPHORUS 2023-12-18 11:20:00 Corey Carias [facility] MAGNESIUM 2023-12-18 11:20:00 Theo Marquised Corey mccarthy [facility] BASIC METABOLIC PANEL (NA, K, CL, CO2, GLUCOSE, BUN, CREATININE, CA) 2023-12-18 11:20:00 Corey Costello [facility] CBC WITH DIFF 2023-12-18 11:20:00 Corey Carias [facility] PHOSPHORUS 2023-12-17 09:20:00 Corey Carias [facility] MAGNESIUM 2023-12-17 09:20:00 Corey Carias [facility] BASIC METABOLIC PANEL (NA, K, CL, CO2, GLUCOSE, BUN, CREATININE, CA) 2023-12-17 09:20:00 Corey Costello [facility] CBC WITH DIFF 2023-12-17 09:20:00 Corey Carias [facility] ACTIVATED PARTIAL THRMPLAS JESUS MANUEL 2023-12-16 21:28:00 Corey Costello [facility] PHOSPHORUS 2023-12-16 07:47:00 Corey Carias [facility] MAGNESIUM 2023-12-16 07:47:00 Corey Carias [facility] BASIC METABOLIC PANEL (NA, K, CL, CO2, GLUCOSE, BUN, CREATININE, CA) 2023-12-16 07:47:00 Corey Costello [facility] CBC WITH DIFF 2023-12-16 07:47:00 Corey Carias [facility] ACTIVATED PARTIAL THRMPLAS JESUS MANUEL 2023-12-16 03:37:00 Corey Costello [facility] ACTIVATED PARTIAL THRMPLAS JESUS MANUEL 2023-12-15 20:20:00 Corey Costello [facility] PHOSPHORUS 2023-12-15 08:44:00 Corey Carias [facility] MAGNESIUM 2023-12-15 08:44:00 Corey Carias [facility] BASIC METABOLIC PANEL (NA, K, CL, CO2, GLUCOSE, BUN, CREATININE, CA) 2023-12-15 08:44:00 Corey Costello [facility] CBC WITH DIFF 2023-12-15 08:44:00 Corey Carias [facility] ACTIVATED PARTIAL THRMPLAS JESUS MANUEL 2023-12-15 08:44:00 Corey Costello [facility] POTASSIUM SERUM 2023-12-15 06:07:00 Magy Ayala [facility] ACTIVATED PARTIAL THRMPLAS JESUS MANUEL 2023-12-15 01:36:00 Corey Costello [facility] ACTIVATED PARTIAL THRMPLAS JESUS MANUEL 2023-12-14 17:23:00 Corey Costello [facility] PHOSPHORUS 2023-12-14 09:57:00 Corey Carias [facility] MAGNESIUM 2023-12-14 09:57:00 Corey Carias [facility] BASIC METABOLIC PANEL (NA, K, CL, CO2, GLUCOSE, BUN, CREATININE, CA) 2023-12-14 09:57:00 Corey Costello [facility] CBC WITH DIFF 2023-12-14 09:57:00 Corey Carias [facility] PROTHROMBIN TIME / INR 2023-12-14 09:57:00 Angela Almodovar [facility] ACTIVATED PARTIAL THRMPLAS JESUS MANUEL 2023-12-14 09:57:00 Corey Costello [facility] ACTIVATED PARTIAL THRMPLAS JESUS MANUEL 2023-12-14 03:11:00 Corey Costello [facility] ACTIVATED PARTIAL THRMPLAS JESUS MANUEL 2023-12-13 19:52:00 Corey Costello [facility] BASIC METABOLIC PANEL (NA, K, CL, CO2, GLUCOSE, BUN, CREATININE, CA) 2023-12-13 18:24:00 Corey Costello [facility] PHOSPHORUS 2023-12-13 10:34:00 Corey Carias [facility] MAGNESIUM 2023-12-13 10:34:00 Corey Carias [facility] BASIC METABOLIC PANEL (NA, K, CL, CO2, GLUCOSE, BUN, CREATININE, CA) 2023-12-13 10:34:00 Corey Costello [facility] CBC WITH DIFF 2023-12-13 10:34:00 Corey Carias [facility] ACTIVATED PARTIAL THRMPLAS JESUS MANUEL 2023-12-13 10:34:00 Corey Costello [facility] ACTIVATED PARTIAL THRMPLAS JESUS MANUEL 2023-12-12 19:43:00 Corey Costello [facility] PHOSPHORUS 2023-12-12 10:45:00 Corey Carias [facility] MAGNESIUM 2023-12-12 10:45:00 Corey Carias [facility] HEPATIC FUNCTION PANEL ([id number]) (ALB,T.PRO,BILI T,BU/BC,ALT,AST,ALK PHOS) 2023-12-12 10:45:00 Sukhwinder Almodovar [facility] BASIC METABOLIC PANEL (NA, K, CL, CO2, GLUCOSE, BUN, CREATININE, CA) 2023-12-12 10:45:00 Corey Costello [facility] CBC WITH DIFF 2023-12-12 10:45:00 Corey Carias [facility] PROTHROMBIN TIME / INR 2023-12-12 10:45:00 Angela Almodovar [facility] ACTIVATED PARTIAL THRMPLAS JESUS MANUEL 2023-12-12 10:45:00 Corey Costello [facility] ACTIVATED PARTIAL THRMPLAS JESUS MANUEL 2023-12-12 03:53:00 Corey Costello [facility] ACTIVATED PARTIAL THRMPLAS JESUS MANUEL 2023-12-11 20:53:00 Corey Costello [facility] PROTHROMBIN TIME / INR 2023-12-11 20:52:00 Corey Dugan [facility] PHOSPHORUS 2023-12-11 08:32:00 Corey Carias [facility] MAGNESIUM 2023-12-11 08:32:00 Corey Carias [facility] BASIC METABOLIC PANEL (NA, K, CL, CO2, GLUCOSE, BUN, CREATININE, CA) 2023-12-11 08:32:00 Corey Costello [facility] CBC WITH DIFF 2023-12-11 08:32:00 Corey Carias [facility] XR CHEST 1 VW 2023-12-10 10:12:00 Corey Carias [facility] PHOSPHORUS 2023-12-10 08:10:00 Corey Carias [facility] MAGNESIUM 2023-12-10 08:10:00 Corey Carias [facility] BASIC METABOLIC PANEL (NA, K, CL, CO2, GLUCOSE, BUN, CREATININE, CA) 2023-12-10 08:10:00 Corey Costello [facility] CBC WITH DIFF 2023-12-10 08:10:00 Corey Carias [facility] BODY FLUID CULTURE(AEROBIC/ANAEROBIC) 2023-12-09 14:04:00 Corey Costello [facility] XR CHEST 1 VW 2023-12-09 09:46:00 Corey Carias [facility] PHOSPHORUS 2023-12-09 08:47:00 Corey Carias [facility] MAGNESIUM 2023-12-09 08:47:00 Corey Carias [facility] BASIC METABOLIC PANEL (NA, K, CL, CO2, GLUCOSE, BUN, CREATININE, CA) 2023-12-09 08:47:00 Corey Costello [facility] CBC WITH DIFF 2023-12-09 08:47:00 Corey Carias [facility] XR KUB 2023-12-09 03:07:55 Marilee Wei [facility] CT ABDOMEN PELVIS W CONTRAST 2023-12-08 16:31:19 Corey Costello [facility] XR CHEST 1 VW 2023-12-08 08:58:00 Corey Carias [facility] PHOSPHORUS 2023-12-08 08:47:00 Corey Carias [facility] MAGNESIUM 2023-12-08 08:47:00 Corey Carias [facility] BASIC METABOLIC PANEL (NA, K, CL, CO2, GLUCOSE, BUN, CREATININE, CA) 2023-12-08 08:47:00 Corey Costello [facility] CBC WITH DIFF 2023-12-08 08:47:00 Corey Carias [facility] XR CHEST 1 VW 2023-12-07 09:14:00 Corey Carias [facility] PHOSPHORUS 2023-12-07 08:28:00 [facility]23-12-07 08:28:00 Dariel [facility] BASIC METABOLIC PANEL (NA, K, CL, CO2, GLUCOSE, BUN, CREATININE, CA) 2023-12-07 08:28:00 [facility] 2023-12-07 08:28:00 [facility] + LACTIC ACID 2023-12-07 08:27:00 Jeny Garner [facility] URINALYSIS 2023-12-06 17:32:00 Jim Jaquez [facility] AC PANEL 20 + LACTIC ACID 2023-12-06 14:55:00 Jeny Garner [facility] TRANSFUSE PACKED RBC 2023-12-06 10:05:00 Beckie Carreon [facility] PREPARE PACKED RBC 2023-12-06 09:47:53 Beckie Carreon [facility] XR CHEST 1 VW 2023-12-06 09:03:00 Corey Carias [facility] PHOSPHORUS 2023-12-06 08:18:00 [facility]23-12-06 08:18[facility] BASIC MET[facility]OLIC PANEL (NA, K, CL, CO2, GLUCOSE, BUN, CREATININE, CA) 2023-12-06 08:18:00 Dariel [facility] CBC WITH DIFF 2023-12-06 08:[facility] + LACTIC ACID 2023-12-06 08:18:00 Beckie Carreon [facility] ACUTE CARE ARTERIAL BLOOD GAS 2023-12-05 17:35:00 Yoni Simon [facility] XR CHEST 1 VW 2023-12-05 08:53:00 Corey Carias [facility] PHOSPHORUS 2023-12-05 08:34:00 Dariel [facility] MAGNESIUM 2023-12-05 08:34:00 [facility] BASIC MET[facility]OLIC PANEL (NA, K, CL, CO2, GLUCOSE, BUN, CREATININE, CA) 2023-12-05 08:34:00 [facility] 2023-12-05 08:34:00 [facility] AC PANEL 20 + LACTIC ACID 2023-12-05 08:34:00 [facility] + LACTIC ACID 2023-12-05 03:58:00 Dongcharlotte, [facility] AC PANEL 20 + LACTIC ACID 2023-12-05 01:49:00 Lauri, [facility] XR CHEST 1 VW 2023-12-05 01:04:00 Dongcharlotte, [facility] XR CHEST 1 VW 2023-12-05 01:03:45 Lauri [facility] BASIC METABOLIC PANEL (NA, K, CL, CO2, GLUCOSE, BUN, CREATININE, CA) 2023-12-04 22:35:00 Nishi [facility] CBC WITH DIFF 2023-12-04 22:35:00 Nishi [facility] TRANSTHORACIC ECHO (TTE) LIMITED W/ CONTRAST 2023-12-04 20:36:00 Corey Costello [facility] AC PANEL 20 + LACTIC ACID 2023-12-04 19:53:00 Lauri [facility] AC PANEL 20 + LACTIC ACID 2023-12-04 10:28:00 Dongcharlotte, [facility] AC PANEL 20 + LACTIC ACID 2023-12-04 10:28:00 Dongcharlotte, [facility] AC PANEL 20 + LACTIC ACID 2023-12-04 10:28:00 Lauri [facility] AC PANEL 20 + LACTIC ACID 2023-12-04 08:15:00 Michelle Steiner [facility] AC PANEL 20 + LACTIC ACID 2023-12-04 08:15:00 Michelle Steiner [facility] AC PANEL 20 + LACTIC ACID 2023-12-04 08:15:00 Michelle Steiner [facility] CBC WITH DIFF 2023-12-04 08:14:00 Elizabeth Steiner [facility] BASIC METABOLIC PANEL (NA, K, CL, CO2, GLUCOSE, BUN, CREATININE, CA) 2023-12-04 08:14:00 Elizabeth Steiner [facility] MAGNESIUM 2023-12-04 08:14:00 Green, [facility] PHOSPHORUS 2023-12-04 08:[facility] JESUS MANUEL 2023-12-04 08:14[facility]00 [facility] 2023-12-04 08:14:00 Green [facility] FIBRINOGEN 2023-12-04 08:14:00 [facility] GLYCOS[facility] HEMOGLOBIN (A1C) 2023-12-04 08:14:[address] [facility] [facility] PHOSPHORUS 2023-12-04 08:14:00 [facility] 2023-12-04 08:14:00 [facility] BASIC METABOLIC PANEL (NA, K, CL, CO2, GLUCOSE, BUN, CREATININE, CA) 2023-12-04 08:14:00 Jatin [facility] CBC WITH DIFF 2023-12-04 08:14[facility]00 [facility] GLYCOSYL[facility] HEMOGLOBIN (A1C) 2023-12-04 08:14:[address] [facility] PROTHROMBIN TIME / INR 2023-12-04 08:14:00 [facility] PART[facility] THRMPLAS JESUS MANUEL 2023-12-04 08:14:00 Green [facility] FIBRINOGEN 2023-12-04 08:14:00 Green [facility] PHOSPHORUS 2023-12-04 08:14:00 [facility]23-12-04 08:14[facility] BASIC METABOLIC PANEL (NA, K, CL, CO2, GLUCOSE, BUN, CREATININE, CA) 2023-12-04 08:14:00 Green [facility] CBC WITH DIFF 2023-12-04 08:14:00 [facility] GLYCOSYLATED HEMOGLOBIN (A1C) 2023-12-04 08:14:00 Los Guidry [facility] PROTHROMBIN TIME / INR 2023-12-04 08:14:00 Jatin [facility] ACTIVATED PARTIAL THRMPLAS JESUS MANUEL 2023-12-04 08:14[facility]23-12-04 08:14:00 [facility] 2023-12-04 07:47:00 Green [facility] XR KUB 2023-12-04 07:47:00 Green [facility] XR KUB 2023-12-04 07:47:00 Green [facility] XR KUB 2023-12-04 07:46:00 Green [facility] XR KUB 2023-12-04 07:46:00 Jatin [facility] XR KUB 2023-12-04 07:46:00 Jatin [facility] XR KUB 2023-12-04 07:43:00 Jatin [facility] XR CHEST 1 2023-12-04 07:43:00 Jatin [facility] XR CHEST 1 2023-12-04 07:43:00 Jatin [facility] XR KUB 2023-12-04 07:43:00 Jatin [facility] XR CHEST 1 2023-12-04 07:43:00 Jatin [facility] XR KUB 2023-12-04 07:43:00 Jatin [facility] SURGICAL PATHOLOGY EXAM 2023-12-04 06:23:00 Jaquan Segundo [facility] ABG+COOX+NA+K+GLU+CA2+ 2023-12-04 06:08:00 Randy Saravia [facility] ABG+COOX+NA+K+GLU+CA2+ 2023-12-04 04:15:00 Randy Saravia [facility] TRANSFUSE PACKED RBC 2023-12-04 03:30:00 Stan Izquierdo [facility] TRANSFUSE PACKED RBC 2023-12-04 03:30:00 Stan Izquierdo [facility] TRANSFUSE PACKED RBC 2023-12-04 03:30:00 Stan Izquierdo [facility] ABG+COOX+NA+K+GLU+CA2+ 2023-12-04 03:00:00 Randy Saravia [facility] TRANSFUSE PACKED RBC 2023-12-04 02:51:00 Taylor Segundo [facility] TRANSFUSE PACKED RBC 2023-12-04 02:51:00 Taylor Segundo [facility] TRANSFUSE PACKED RBC 2023-12-04 02:51:00 Taylor Segundo [facility] PREPARE PACKED RBC 2023-12-04 02:36:27 Stan Izquierdo [facility] PREPARE PACKED RBC 2023-12-04 02:36:27 Stan Izquierdo [facility] PREPARE PACKED RBC 2023-12-04 02:36:27 Stan Izquierdo [facility] ARTERIAL LINE 2023-12-04 01:12:00 Bashir Carvalho [facility] ARTERIAL LINE 2023-12-04 01:12:00 Bashir Carvalho [facility] INTUBATION 2023-12-04 00:57:00 Bashir Carvalho [facility] INTUBATION 2023-12-04 00:57:00 Bashir Carvalho [facility] EXPLORATORY LAPAROTOMY 2023-12-04 00:33:00 Taylor Segundo [facility] [id number] - [place] COLECTOMY PRTL W/SKIN LEVEL CECOST/COLOSTOMY 2023-12-04 00:33:00 Taylor Segundo [facility] FECAL DISIMPACTION 2023-12-04 00:33:00 [facility]Y 2023-12-04 00:33:00 Taylor Segundo [facility] [id number] - [place] COLECTOMY PRTL W/SKIN LEVEL CECOST/COLOSTOMY 2023-12-04 00:33:00 Taylor Segundo [facility] FECAL DISIMPACTION 2023-12-04 00:33:00 [facility] LAPAROTOMY 2023-12-04 00:33:00 Sanya Taylor [facility] [id number] - [place] COLECTOMY PRTL W/SKIN LEVEL CECOST/COLOSTOMY 2023-12-04 00:33:00 Sanya Taylor [facility] FECAL DISIMPACTION 2023-12-04 00:33:00 IlarakeshTaylor anthony Un [facility]EL[facility] W CONTRAST 2023-12-03 22:15:15 Yazmin [facility] CT ABDOMEN PELVIS W CONTRAST 2023-12-03 22:15:15 Yazmin [facility] CT ABDOMEN PELVIS W CONTRAST 2023-12-03 22:15:15 Yazmin [facility] AC PANEL 21 + LACTIC ACID 2023-12-03 20:56:00 Sa zia [facility] AC PANEL 21 + LACTIC ACID 2023-12-03 20:56:00 Sa zia [facility] AC PANEL 21 + LACTIC ACID 2023-12-03 20:56:00 Sa zia [facility] CBC WITH DIFF 2023-12-03 19:40:00 Ko [facility] BASIC METABOLIC PANEL (NA, K, CL, CO2, GLUCOSE, BUN, CREATININE, CA) 2023-12-03 19:40:00 Ko [facility]varez [facility] HEPATIC FUNCTION PANEL ([id number]) (ALB,T.PRO,BILI T,BU/BC,ALT,AST,ALK PHOS) 2023-12-03 19:40:00 Ko [facility] ACTIVATED PARTIAL THRMPLAS JESUS MANUEL 2023-12-03 19:40:00 Ko [facility] PROTHROMBIN TIME / INR 2023-12-03 19:40:00 Doris [facility] HEPATIC FUNCTION PANEL ([id number]) (ALB,T.PRO,BILI T,BU/BC,ALT,AST,ALK PHOS) 2023-12-03 19:40:00 Ko [facility] BASIC METABOLIC PANEL (NA, K, CL, CO2, GLUCOSE, BUN, CREATININE, CA) 2023-12-03 19:40:00 Ko [facility] CBC WITH DIFF 2023-12-03 19:40:00 Ko [facility] PROTHROMBIN TIME / INR 2023-12-03 19:40:00 Doris [facility] ACTIVATED PARTIAL THRMPLAS JESUS MANUEL 2023-12-03 19:40:00 Ko [facility] HEPATIC FUNCTION PANEL ([id number]) (ALB,T.PRO,BILI T,BU/BC,ALT,AST,ALK PHOS) 2023-12-03 19:40:00 Ko [facility] BASIC METABOLIC PANEL (NA, K, CL, CO2, GLUCOSE, BUN, CREATININE, CA) 2023-12-03 19:40:00 Ko [facility] CBC WITH DIFF 2023-12-03 19:40:00 Ko [facility] PROTHROMBIN TIME / INR 2023-12-03 19:40:00 Doris [facility] ACTIVATED PARTIAL THRMPLAS JESUS MANUEL 2023-12-03 19:40:00 Ko [facility] CT ABDOMEN PELVIS W CONTRAST 2023-12-03 18:33:[address] [facility] [address] ABDOMEN PELVIS W CONTRAST 2023-12-03 18:33:[address] [facility] [address] ABDOMEN PELVIS W CONTRAST 2023-12-03 18:33:18 See [facility] FIBRINOGEN 2023-12-03 16:27:00 Corey Carias [facility] ACTIVATED PARTIAL THRMPLAS JESUS MANUEL 2023-12-03 16:27:00 Corey Costello [facility] PROTHROMBIN TIME / INR 2023-12-03 16:27:00 Corey Dugan [facility] PROTHROMBIN TIME / INR 2023-12-03 16:27:00 Corey Dugan [facility] ACTIVATED PARTIAL THRMPLAS JESUS MANUEL 2023-12-03 16:27:00 Corey Costello [facility] FIBRINOGEN 2023-12-03 16:27:00 Corey Carias [facility] PROTHROMBIN TIME / INR 2023-12-03 16:27:00 Corey Dugan [facility] ACTIVATED PARTIAL THRMPLAS JESUS MANUEL 2023-12-03 16:27:00 Corey Costello [facility] FIBRINOGEN 2023-12-03 16:27:00 Corey Carias [facility] PREPARE PACKED RBC 2023-12-03 13:33:02 Taylor Segundo [facility] PREPARE PACKED RBC 2023-12-03 13:33:02 Taylor Segundo [facility] HB ABO GROUPING 2023-12-03 12:35:00 Taylor Segundo [facility] HB ABO GROUPING 2023-12-03 12:35:00 Taylor [facility] HB ABO GROUPING 2023-12-03 12:35:00 Taylor Segundo [facility] CBC WITH DIFF 2023-12-03 08:05:00 Feliberto Hoyt [facility] BASIC METABOLIC PANEL (NA, K, CL, CO2, GLUCOSE, BUN, CREATININE, CA) 2023-12-03 08:05:00 Evelina [facility] LACTIC ACID WHOLE BLOOD 2023-12-03 08:05:00 Evelina [facility] MAGNESIUM 2023-12-03 08:05:00 Feliberto Hoyt [facility] PROTHROMBIN TIME / INR 2023-12-03 08:05:00 Evelina [facility] ACTIVATED PARTIAL THRMPLAS JESUS MANUEL 2023-12-03 08:05:00 Evelina [facility] HEPATIC FUNCTION PANEL ([id number]) (ALB,T.PRO,BILI T,BU/BC,ALT,AST,ALK PHOS) 2023-12-03 08:05:00 Evelina, [facility] MAGNESIUM 2023-12-03 08:05:00 Evelina, [facility] HEPATIC FUNCTION PANEL ([id number]) (ALB,T.PRO,BILI T,BU/BC,ALT,AST,ALK PHOS) 2023-12-03 08:05:00 Evelina, [facility] BASIC METABOLIC PANEL (NA, K, CL, CO2, GLUCOSE, BUN, CREATININE, CA) 2023-12-03 08:05:00 Evelina, [facility] CBC WITH DIFF 2023-12-03 08:05:00 Evelina, [facility] PROTHROMBIN TIME / INR 2023-12-03 08:05:00 Evelina, [facility] ACTIVATED PARTIAL THRMPLAS JESUS MANUEL 2023-12-03 08:05:00 Evelina, [facility] LACTIC ACID WHOLE BLOOD 2023-12-03 08:05:00 Evelina, [facility] MAGNESIUM 2023-12-03 08:05:00 Evelina, [facility] HEPATIC FUNCTION PANEL (02422) (ALB,T.PRO,BILI T,BU/BC,ALT,AST,ALK PHOS) 2023-12-03 08:05:00 Evelina, [facility] BASIC METABOLIC PANEL (NA, K, CL, CO2, GLUCOSE, BUN, CREATININE, CA) 2023-12-03 08:05:00 Evelina, [facility] CBC WITH DIFF 2023-12-03 08:05:00 Evelina, [facility] PROTHROMBIN TIME / INR 2023-12-03 08:05:00 Evelina, [facility] ACTIVATED PARTIAL THRMPLAS JESUS MANUEL 2023-12-03 08:05:00 Evelina, [facility] LACTIC ACID WHOLE BLOOD 2023-12-03 08:05:00 Evelina, [facility] TRANSTHORACIC ECHO (TTE) COMPLETE W/ CONTRAST 2023-11-23 15:24:26 [facility] (TTE) COMPLETE W/ CONTRAST 2023-11-23 15:24:[address] [facility] CBC WITH DIFF 2023-11-23 11:09:00 [facility]23-11-23 11:09:00 Radha Cherry [facility] BASIC METABOLIC PANEL (NA, K, CL, CO2, GLUCOSE, BUN, CREATININE, CA) 2023-11-23 11:09:[address] [facility] MAGNESIUM 2023-11-23 11:09:00 [facility]OLIC [facility]EL (NA, K, CL, CO2, GLUCOSE, BUN, CREATININE, CA) 2023-11-23 11:09:[address] [facility] CBC WITH DIFF 2023-11-23 11:09:00 Radha [facility] HB ECG ROUTINE & RHYTHM STRIP 2023-11-22 14:50:[address] [facility] HB ECG ROUTINE & RHYTHM STRIP 2023-11-22 14:50:[address] [facility] CBC WITH DIFF 2023-11-22 10:01:00 Jet Aguilar [facility] BASIC METABOLIC PANEL (NA, K, CL, CO2, GLUCOSE, BUN, CREATININE, CA) 2023-11-22 10:01:00 Jet Aguilar [facility] MAGNESIUM 2023-11-22 10:01:00 Jet Aguilar [facility] THYROID STIMULATING HORMONE 2023-11-22 10:01:[address] [facility] MAGNESIUM 2023-11-22 10:01:00 Jet Aguilar [facility] THYROID STIMULATING HORMONE 2023-11-22 10:01:[address] [facility] BASIC METABOLIC PANEL (NA, K, CL, CO2, GLUCOSE, BUN, CREATININE, CA) 2023-11-22 10:01:00 Jet Aguilar [facility] CBC WITH DIFF 2023-11-22 10:01:00 Jet Aguilar [facility] CBC WITHOUT DIFF 2023-11-21 16:46:00 Jet Aguilar [facility] CBC WITHOUT DIFF 2023-11-21 16:46:00 Jet Aguilar [facility] RETROPERITONEAL LIMITED 2023-11-21 12:03:00 [facility] RETROPERITONEAL LIMITED 2023-11-21 12:03:00 [facility] PREPARE PACKED RBC 2023-11-21 11:09:04 Keira Davidson [facility] PREPARE PACKED RBC 2023-11-21 11:09:04 Kiera Davidson [facility] ABORH CONFIRMATION (LAB ONLY) 2023-11-21 10:16[facility] ([facility] ONLY) 2023-11-21 10:16:00 Alex Smithzabeth [facility] HB ABO GROUPING 2023-11-21 10:05:[address] [facility] HB ABO GROUPING 2023-11-21 10:05:00 Thelma Davidson [facility] CBC WITHOUT DIFF 2023-11-21 09:34:00 King Davidson [facility] CBC WITHOUT DIFF 2023-11-21 09:34:00 King Davidson [facility] CBC WITH DIFF 2023-11-21 08:51:00 Mt Davidson [facility] BASIC METABOLIC PANEL (NA, K, CL, CO2, GLUCOSE, BUN, CREATININE, CA) 2023-11-21 08:51:00 Mt Davidson [facility] MAGNESIUM 2023-11-21 08:51:00 Mt Davidson [facility] MAGNESIUM 2023-11-21 08:51:00 [facility]OLIC PANEL (NA, K, CL, CO2, GLUCOSE, BUN, CREATININE, CA) 2023-11-21 08:51:00 [facility]FF 2023-11-21 08:51:00 Lety [facility] LACTIC ACID WHOLE BLOOD 2023-11-21 04:02:00 Lety [facility] LACTIC ACID WHOLE BLOOD 2023-11-21 04:02:00 [facility] 2023-11-21 03:55:00 [facility] BLOOD [facility]EN 2023-11-21 03:55:00 [facility] PROTHROM[facility] / INR 2023-11-21 03:05:00 Lety [facility] ACTIVATED PARTIAL THRMPLAS JESUS MANUEL 2023-11-21 03:05:00 Lety [facility] IRON PANEL 2023-11-21 03:05:00 [facility] VITAMIN B12, LEVEL 2023-11-21 03:05:00 [facility] 2023-11-21 03:05:00 Lety [facility] LACTATE DEHYDROGENASE 2023-11-21 03:05:00 Lety [facility] BASIC METABOLIC PANEL (NA, K, CL, CO2, GLUCOSE, BUN, CREATININE, CA) 2023-11-21 03:05:00 Mt Davidson [facility] ETHANOL 2023-11-21 03:05:00 [facility] LACTATE DEHYDROGENASE 2023-11-21 03:05:00 Lety [facility] VITAMIN B12, LEVEL 2023-11-21 03:05:00 [facility] 2023-11-21 03:05:00 [facility] BASIC METABOLIC PANEL (NA, K, CL, CO2, GLUCOSE, BUN, CREATININE, CA) 2023-11-21 03:05:00 Mt Davidson [facility] IRON PANEL 2023-11-21 03:05:00 Mt Davidson [facility] ETHANOL 2023-11-21 03:05:00 Mt Davidson [facility] PROTHROMBIN TIME / INR 2023-11-21 03:05:00 Mt Davidson [facility] ACTIVATED PARTIAL THRMPLAS JESUS MANUEL 2023-11-21 03:05:00 Mt Davidson [facility] URINE CULTURE 2023-11-21 02:54:00 [facility] URINE CULTURE 2023-11-21 02:54:00 Lety cristy [facility] POCT GLUCOSE (AUTOMATED) 2023-11-21 01:29:00 Stefanie Johnson [facility] POCT GLUCOSE (AUTOMATED) 2023-11-21 01:29:00 Stefanie Johnson [facility] POCT GLUCOSE (AUTOMATED) 2023-11-20 23:13:00 Joleen Chinchilla [facility] POCT GLUCOSE (AUTOMATED) 2023-11-20 23:13:00 Joleen Chinchilla [facility] INFLUENZA A/B RSV COVID NAAT 2023-11-20 22:31:00 Pablo Chinchilla [facility] LAB ONLY COVID INTERPRETATION 2023-11-20 22:31:00 Pablo Chinchilla [facility] INFLUENZA A/B RSV COVID NAAT 2023-11-20 22:31:00 Pablo Chinchilla [facility] LAB ONLY COVID INTERPRETATION 2023-11-20 22:31:00 Pablo Chinchilla [facility] POCT GLUCOSE(AGE >30DAYS) 2023-11-20 21:25:00 Pablo Chinchilla [facility] POCT GLUCOSE(AGE >30DAYS) 2023-11-20 21:25:00 Pablo Chinchilla [facility] POCT GLUCOSE (AUTOMATED) 2023-11-20 21:21:00 Joleen Chinchilla [facility] POCT GLUCOSE (AUTOMATED) 2023-11-20 21:21:00 Joleen Chinchilla [facility] URINALYSIS 2023-11-20 21:14:00 Pablo Chinchilla [facility] URINE DRUG (IMMUNOASSAY) - COMPREHENSIVE DRUG SCREEN 2023-11-20 21:14:00 Mt Davidson [facility] URINE DRUG (IMMUNOASSAY) - COMPREHENSIVE DRUG SCREEN 2023-11-20 21:14:00 Mt Davidson [facility] URINALYSIS 2023-11-20 21:14:00 Pablo Chinchilla [facility] CT ABDOMEN PELVIS WO CONTRAST 2023-11-20 19:45:00 Pablo Chinchilla [facility] CT ABDOMEN PELVIS WO CONTRAST 2023-11-20 19:45:00 Pablo Chinchilla [facility] COMP. METABOLIC PANEL ([id number]) 2023-11-20 18:25:00 Pablo Chinchilla [facility] TROPONIN I 2023-11-20 18:25:00 Pablo Chinchilla [facility] LIPASE 2023-11-20 18:25:00 Pablo Chinchilla [facility] MAGNESIUM 2023-11-20 18:25:00 Pablo Chinchilla [facility] PHOSPHORUS 2023-11-20 18:25:00 Mt Davidson [facility] FERRITIN SERUM 2023-11-20 18:25:00 John Davidson [facility] PHOSPHORUS 2023-11-20 18:25:00 Mt Davidson [facility] LIPASE 2023-11-20 18:25:00 Pablo Chinchilla [facility] MAGNESIUM 2023-11-20 18:25:00 Pablo Chinchilla [facility] FERRITIN SERUM 2023-11-20 18:25:00 John Davidson [facility] TROPONIN I 2023-11-20 18:25:00 Pablo Chinchilla [facility] COMP. METABOLIC PANEL ([id number]) 2023-11-20 18:25:00 Pablo Chinchilla [facility] LACTIC ACID WHOLE BLOOD 2023-11-20 17:16:00 Kerry Chinchilla [facility] LACTIC ACID WHOLE BLOOD 2023-11-20 17:16:00 Kerry Chinchilla [facility] CBC WITH DIFF 2023-11-20 17:15:00 Pablo Chinchilla [facility] RETICULOCYTES AUTOMATED 2023-11-20 17:15:00 Mt Davidson [facility] CBC WITH DIFF 2023-11-20 17:15:00 Pablo Chinchilla [facility] RETICULOCYTES AUTOMATED 2023-11-20 17:15:00 Mt Davidson [facility] HB ECG ROUTINE & RHYTHM STRIP 2023-11-20 16:55:53 Pablo Chinchilla [facility] HB ECG ROUTINE & RHYTHM STRIP 2023-11-20 16:55:53 Pablo Chinchilla [facility] Encounters Start Date/Time End Date/Time Encounter Type Admission Type Attending [facility] Care Facility Care Department Encounter ID Source 2024-01-17 00:00:00 2024-02-06 13:38:21 Telephone Service/Gen surg, Surgery C Service/Gen surg, Surgery C [facility] 1.20.114 350.1.13.10 4.2.7.2.686 [id number] [facility] 2024-01-16 00:00:00 2024-01-16 15:39:30 Transition of Care Cinthya Andrade Laura K [address] 1.2840.114 350.1.13.10 4.2.7.2.686 [id number] [facility] 2024-01-06 18:34:00 2024-01-14 12:00:00 Hospital Encounter Jr Saravia, Isrrael Stone [facility] ([facility]) 1.2840.114 350.1.13.10 4.2.7.2.686 [id number] [facility] 2024-01-01 00:00:00 2024-01-01 15:07:16 Transition of Care Cinthya Andrade Laura K [facility] [address] 1.2.840.114 350.1.13.10 4.2.7.2.686 [id number] [facility] 2023-12-03 02:17:00 2023-12-29 17:30:00 Hospital Encounter Jr Saravia Joshua [facility] 1.2.840.114 350.1.13.10 4.2.7.2.686 [id number] [id number] [facility] 2023-12-03 19:47:00 2023-12-04 02:11:00 Anesthesia Event Kentrell Núñez Edgar 1.2.840.1 89052.1.1 3.104.2.7 .3.819739 .8 [id number] [facility] 2023-12-03 19:25:00 2023-12-03 22:35:00 Surgery Taylor Segundo [facility] 1.2.840.114 350.1.13.10 4.2.7.2.686 [id number] [facility] 2023-12-03 13:33:01 2023-12-03 13:33:01 Anesthesia Event Lopez Russ 1.2.840.1 61096.1.1 3.104.2.7 .3.996671 .8 [id number] [facility] 2023-12-03 00:00:00 2023-12-03 00:00:00 Travel 1.2.840.1 25083.1.1 3.104.2.7 .3.203844 .8 1.2.840.114 350.1.13.10 4.2.7.3.698 [id number] [facility] 2023-11-28 00:00:00 2023-11-28 10:13:02 Telephone Ivan Rogersony 1.2.840.1 91520.1.1 3.104.2.7 .3.288522 .8 [id number] [facility] 2023-11-24 00:00:00 2023-11-24 11:30:21 Transition of Care Daisy Nelson 1.2.840.1 09987.1.1 3.104.2.7 .3.778370 .8 [id number] [facility] 2023-11-20 11:14:00 2023-11-23 19:45:00 Inpatient ALEX MEDRANO [facility]AH [facility] [id number] [facility] 2023-11-20 11:14:00 2023-11-23 19:45:00 Hospital Encounter Pablo Chinchilla, Alex Adam 1.2.840.1 52150.1.1 3.104.2.7 .3.715430 .8 [id number] [facility] 2023-11-20 00:00:00 2023-11-20 00:00:00 Travel 1.2.840.1 03798.1.1 3.104.2.7 .3.370252 .8 1.2.840.114 350.1.13.10 4.2.7.3.698 084.8 [id number] [facility] Results Test Description Test Time Test Comments Results Result Co mments Source [facility] 09:05:35* Test Item Value Reference Range Interpretation Comme nts PHOSPHORUS (test code = 9751763075) 3.6 mg/dL 2.5-5.0 Lab Interpretation (test cod e = 82931-5) Normal [facility] (NA, K, CL, CO2, GLUCOSE, BUN, CREATININE, CA)2024-01-07 09:05:34* Test Item Value Reference Range Interpretation Comme nts NA (test code = 3615922218) 133 mmol/L 135-145 L K (test code = 1798754989) 4.2 mmol/L 3.5-5.0 CL (test code = 4536510582) 107 mmol/L 98-108 CO2 TOTAL (test code = 2643251242) 22 mmol/L 23-31 L AGAP (test code = 9654303351) 4 2-16 BUN (test code = 0953883689) 22 mg/dL 7-23 GLUCOSE (test code = 3416615502) 82 mg/dL 70-110 CREATININE (test code = 2160-0) 0.59 mg/dL 0.50-1.04 CALCIUM (test code = 5525858142) 8.7 mg/dL 8.6-10.6 eGFR (test code = 70078-0) 94.1 mL/min/1.73m2 CKD-EPI eGFR (2020). Assuming creatinine has been stable day-to-day for at least three months, the eGFR indicates Category G1 (>= 90 mL/min/1.73 m2) Lab Interpretation (test code = 64676-3) Abnormal [facility]2024-10-13 09:05:34* Test Item Value Reference Range Interpretation Comme nts MAGNESIUM (test code = 7329689783) 1.5 mg/dL 1.7-2.4 L Lab Interpretation (test cod e = 66000-6) Abnormal [facility] with Crqu9042-50-08 02:40:90JMU6101/06/2024 9:40 PM [facility] VLGFMBHZAIP58/12/2024 9:40 PM [facility] AMEFEYWWMVK08/12/2024 9:40 PM [facility] PTOHTVJNEUC90/12/2024 9:40 PM [facility] IYMEYFZOOXO68/12/2024 9:40 PM [facility] DRSLXICBZAZ63/12/2024 9:40 PM [facility] KQEMDXGFDGAE17/12/2024 9:40 PM [facility] SERVICESRDW-SD01/06/2024 9:40 PM [facility] SERVICESRDW-CV01/06/2024 9:40 PM [facility] QVGCZJKEGNH79/12/2024 9:40 PM [facility] WQGXEEUHGQN77 9:40 PM [facility] SERVICESNRBC/100 WBC01/06/2024 9:40 PM [facility]ORAT[facility] SERVICESNRBC x10^ 9:40 PM CDT[facility]ORATORY SERVICESGRAN MAT (NEUT) [...] LABORATORY SERVICESBASO x10^ 9:40 PM CDTUTMB [facility]ORATORY SERVICESUnMatagorda Regional Medical CenterPhosphorus 2024-01-07 02:26:31* Test Item Value Reference Range Interpretation Comme nts PHOSPHORUS (test code = 2253808317) 3.7 mg/dL 2.5-5.0 Lab Interpretation (test cod e = 73940-9) Normal [facility]2024-10-13 02:26:31* Test Item Value Reference Range Interpretation Comme nts MAGNESIUM (test code = 8277807272) 1.5 mg/dL 1.7-2.4 L Lab Interpretation (test cod e = 52403-6) [facility] (NA, K, CL, CO2, GLUCOSE, BUN, CREATININE, CA)2024-01-07 02:26:31* Test Item Value Reference Range Interpretation Comme nts NA (test code = 5563133520) 132 mmol/L 135-145 L K (test code = 3743982954) 3.9 mmol/L 3.5-5.0 CL (test code = 2687552792) 107 mmol/L 98-108 CO2 TOTAL (test code = 9738976508) 21 mmol/L 23-31 L AGAP (test code = 2363353356) 4 2-16 BUN (test code = 1316723613) 24 mg/dL 7-23 H GLUCOSE (test code = 2490676589) 89 mg/dL 70-110 CREATININE (test code = 2160-0) 0.68 mg/dL 0.50-1.04 CALCIUM (test code = 7154641932) 8.9 mg/dL 8.6-10.6 eGFR (test code = 82045-4) 91.0 mL/min/1.73m2 CKD-EPI eGFR (2020). Assuming creatinine has been stable day-to-day for at least three months, the eGFR indicates Category G1 (>= 90 mL/min/1.73 m2) Lab Interpretation (test code = 77442-5) Abnormal [facility] W [id number] 23:22:18EXAM: CT ABDOMEN PELVIS W CONTRAST HISTORY: [...] to theupper pelvis is seen. Dependent subcutaneous edema.[facility] (for use with Heparin Infusion)2023-12-15 21:03:45* Test Item Value Reference Range Interpretation Comme [facility] APTT Patient (test code = 3173-2) 24 26-36 L Lab Interpretation (test cod e = 28106-9) Abnormal [facility] (for use with Heparin Infusion)2023-12-14 03:40:13* Test Item Value Reference Range Interpretation Comme [facility] APTT Patient (test code = 3173-2) 40 26-36 H Lab Interpretation (test cod e = 50340-2) Abnormal [facility] (for use with Heparin Infusion)2023-12-12 20:11:22* Test Item Value Reference Range Interpretation Comme [facility] APTT Patient (test code = 3173-2) 55 26-36 H Lab Interpretation (test cod e = 21856-0) Abnormal [facility] HospitalABG+COOX+NA+K+GLU+CA2+2023-12-12 02:38:42* Test Item Value Reference Range Interpretation Comme nts PH (test code = 2) 7.25 7.35-7.45 L PCO2 (test code = 5327581111) 39 35-45 PO2 (test code = 7936465406) 404 80-100 H HCO3 (test code = 0160946601) 17 22-26 L BE (test code = 6745070300) -9.8 -3.0-3.0 L THB (test code = 5612380662) 11.7 g/dL 12.0-16.0 L %O2HB (test code = 4925441211) 98.2 % 94.0-99.0 %COHB ART (test code = 9031304387) 1.4 % 0.0-1.5 %METHB ART (test code = 0322684102) 0.3 % 0.4-1.5 L VOL%O2 ART (test code = 0042629245) 17.2 % 15.0-23.0 QUES NA (test code = 6760126289) 133 mmol/L 135-145 L K+ (test code = 8378080387) 5.0 mmol/L 3.5-5.0 AC CA IONZ (test code = 1937042810) 4.70 mg/dL 4.50-5.30 GLUCOSE (test code = 9387713444) 125 mg/dL 70-110 H Lab Interpretation (test cod e = 54685-5) Abnormal [facility] HospitalABG+COOX+NA+K+GLU+CA2+2023-12-12 02:38:22* Test Item Value Reference Range Interpretation Comme nts PH (test code = 2) 7.29 7.35-7.45 L PCO2 (test code = 0094453933) 41 35-45 PO2 (test code = 3735419791) 342 80-100 H HCO3 (test code = 9278089333) 19 22-26 L BE (test code = 8643926404) -7.1 -3.0-3.0 L THB (test code = 6022227218) 11.3 g/dL 12.0-16.0 L %O2HB (test code = 3966204696) 98.7 % 94.0-99.0 %COHB ART (test code = 5017070168) 1.0 % 0.0-1.5 %METHB ART (test code = 0094712610) 0.3 % 0.4-1.5 L VOL%O2 ART (test code = 1118442942) 16.6 % 15.0-23.0 QUES NA (test code = 1368258535) 135 mmol/L 135-145 K+ (test code = 0424278838) 4.9 mmol/L 3.5-5.0 AC CA IONZ (test code = 1468907830) 4.70 mg/dL 4.50-5.30 GLUCOSE (test code = 2822128098) 130 mg/dL 70-110 H Lab Interpretation (test cod e = 97204-1) Abnormal [facility]AB[facility]+COOX+NA+K+GLU+CA2+2023-12-12 02:37:06* Test Item Value Reference Range Interpretation Comme nts PH (test code = 2) 7.35 7.35-7.45 PCO2 (test code = 5693613159) 37 35-45 PO2 (test code = 2457033803) 461 80-100 H HCO3 (test code = 5546577169) 20 22-26 L BE (test code = 6071396199) -5.0 -3.0-3.0 L THB (test code = 6878492266) 8.1 g/dL 12.0-16.0 LL %O2HB (test code = 4863567190) 98.2 % 94.0-99.0 %COHB ART (test code = 1189689619) 1.2 % 0.0-1.5 %METHB ART (test code = 7866784926) 0.3 % 0.4-1.5 L VOL%O2 ART (test code = 8179921037) 12.5 % 15.0-23.0 L QUES NA (test code = 1966716502) 133 mmol/L 135-145 L K+ (test code = 4837633229) 4.9 mmol/L 3.5-5.0 AC CA IONZ (test code = 5782514964) 4.70 mg/dL 4.50-5.30 GLUCOSE (test code = 9702967420) 119 mg/dL 70-110 H Lab Interpretation (test cod e = 15562-0) Abnormal [facility] HospitalaPTT2024-[facility]-16 21:16:12* Test Item Value Reference Range Interpretation Comme [facility] APTT Patient (test code = 3173-2) 38 26-36 H Lab Interpretation (test cod e = 61240-5) Abnormal [facility] HospitalProthrombin Time / [id number] 21:13:33* Test Item Value Reference Range Interpretation Comme [facility] PROTIME PATIENT (test code = 5964-2) 32.4 10.1-12.6 H INR (test code = 6301-6) 3.0 Normal INR <1.1; Warfarin Therapeutic range 2.0 to 3.0 or 2.5 to 3.5, depending upon the indications. Lab Interpretation (test code = 83026-6) Abnormal [facility] HospitalCbc with [id number] 09:14:16* Test Item Value Reference Range Interpretation [...] g/dL 31.6-35.1 L RDW-SD (test code = 84243-7) 59.1 fL 39.0-49.9 H RDW-CV (test code = 788-0) 21.9 % 12.0-15.5 H PLT (test code = 777-3) 367 166-358 H MPV (test code = 37208-9) 9.2 fL 9.5-12.9 L NRBC/100 WBC (test code = 3167848724) 0.5 0.0-10.0 NRBC x10^3 (test code = 8509136863) 0.07 See_Comment [Automated message] The system which generated this result transmitted reference range: 10*3/?L. The reference range was not used to interpret this result as normal/abnormal. GRAN MAT (NEUT) % (test code = 770-8) 79.5 % IMM GRAN % (test code = 6878923973) 5.30 % LYMPH % (test code = 736-9) 10.6 % MONO % (test code = 5905-5) 4.1 % EOS % (test code = 713-8) 0.4 % BASO % (test code = 706-2) 0.1 % GRAN MAT x10^3(ANC) (test code = 3013532728) 10.75 10*3/uL 1.88-7.09 H IMM GRAN x10^3 (test code = 2652746933) 0.72 10*3/uL 0.00-0.06 H LYMPH x10^3 (test code = 731-0) 1.43 10*3/uL 1.32-3.29 MONO x10^3 (test code = 742-7) 0.55 10*3/uL 0.33-0.92 EOS x10^3 (test code = 711-2) 0.05 10*3/uL 0.03-0.39 BASO x10^3 (test code = 704-7) 0.01-0.07 Lab Interpretation (test code = 15463-7) Abnormal [facility]2024-09-16 08:56:49* Test Item Value Reference Range Interpretation Comme nts MAGNESIUM (test code = 2221926995) 1.8 mg/dL 1.7-2.4 Lab Interpretation (test cod e = 58163-7) Normal [facility]2024-09-16 08:56:49* Test Item Value Reference Range Interpretation Comme nts PHOSPHORUS (test code = 7451907600) 2.4 mg/dL 2.5-5.0 L Lab Interpretation (test cod e = 47854-3) Abnormal [facility] HospitalBasi Metabolic Panel (NA, K, CL, CO2, GLUCOSE, BUN, CREATININE, CA)2023-12-11 08:56:49* Test Item Value Reference Range Interpretation Comme nts NA (test code = 8338111836) 141 mmol/L 135-145 K (test code = 3657812554) 3.1 mmol/L 3.5-5.0 L CL (test code = 9051516617) 112 mmol/L 98-108 H CO2 TOTAL (test code = 0801500143) 19 mmol/L 23-31 L AGAP (test code = 8260807746) 10 2-16 BUN (test code = 3223754362) 29 mg/dL 7-23 H GLUCOSE (test code = 3272445481) 126 mg/dL 70-110 H CREATININE (test code = 2160-0) 0.72 mg/dL 0.50-1.04 CALCIUM (test code = 6953955386) 8.3 mg/dL 8.6-10.6 L eGFR (test code = 15742-1) 87.3 mL/min/1.73m2 CKD-EPI eGFR (2020). Assuming creatinine has been stable day-to-day for at least three months, the eGFR indicates Category G2 (60 - 89 mL/min/1.73 m2) Lab Interpretation (test code = 04167-0) Abnormal [facility] HospitalXR [facility]ST 1 [id number] 04:11:52ORDERING PHYSICIAN: TONEY ELKINS HISTORY: respiratory monitoring TECHNIQUE: AP view of the chest COMPARISON: XR CHEST 1 VW on DOS: 12/09/23 FINDINGS: Frontal view of the chest is obtained in a rotated position. Worsening basilar predominant pulmonary opacities and suspected small bilateral pleuraleffusions. No pneumothorax. ? ? ?Stable prominence of the cardiac silhouette. Aortic atherosclerosis. The osseous structures appear unchanged.[facility] with Zmbb1730-56-96 09:00:36* Test Item Value Reference Range Interpretation [...] 32.3 g/dL 31.6-35.1 RDW-SD (test code = 73660-7) 60.0 fL 39.0-49.9 H RDW-CV (test code = 788-0) 22.1 % 12.0-15.5 H PLT (test code = 777-3) 398 166-358 H MPV (test code = 25239-7) 9.0 fL 9.5-12.9 L NRBC/100 WBC (test code = 5954274426) 0.5 0.0-10.0 NRBC x10^3 (test code = 9366444596) 0.07 See_Comment [Automated message] The system which generated this result transmitted reference range: 10*3/?L. The reference range was not used to interpret this result as normal/abnormal. GRAN MAT (NEUT) % (test code = 770-8) 79.6 % IMM GRAN % (test code = 7455413589) 5.90 % LYMPH % (test code = 736-9) 10.4 % MONO % (test code = 5905-5) 3.9 % EOS % (test code = 713-8) 0.1 % BASO % (test code = 706-2) 0.1 % GRAN MAT x10^3(ANC) (test code = 2363343448) 11.69 10*3/uL 1.88-7.09 H IMM GRAN x10^3 (test code = 0757719962) 0.87 10*3/uL 0.00-0.06 H LYMPH x10^3 (test code = 731-0) 1.53 10*3/uL 1.32-3.29 MONO x10^3 (test code = 742-7) 0.58 10*3/uL 0.33-0.92 EOS x10^3 (test code = 711-2) 0.03-0.39 L BASO x10^3 (test code = 704-7) 0.01-0.07 TARGET CELLS (test code = 64268-3) 2+ See_Comment A [Automated message] The system which generated this result transmitted reference range: (none). The reference range was not used to interpret this result as normal/abnormal. Lab Interpretation (test code = 80071-0) [facility] Test Item Value Reference Range Interpretation Comme nts MAGNESIUM (test code = 9163093227) 2.0 mg/dL 1.7-2.4 Lab Interpretation (test cod e = 28195-2) [facility]:44* Test Item Value Reference Range Interpretation Comme nts PHOSPHORUS (test code = 8910247579) 3.5 mg/dL 2.5-5.0 Lab Interpretation (test cod e = 88569-6) [facility] (NA, K, CL, CO2, GLUCOSE, BUN, CREATININE, CA)2023-12-10 08:41:44* Test Item Value Reference Range Interpretation Comme nts NA (test code = 6077990296) 139 mmol/L 135-145 K (test code = 8190293986) 3.3 mmol/L 3.5-5.0 L CL (test code = 3393645149) 112 mmol/L 98-108 H CO2 TOTAL (test code = 9441405343) 19 mmol/L 23-31 L AGAP (test code = 2573176305) 8 2-16 BUN (test code = [id number]) 38 mg/dL 7-23 H GLUCOSE (test code = 7917839077) 135 mg/dL 70-110 H CREATININE (test code = 2160-0) 1.02 mg/dL 0.50-1.04 CALCIUM (test code = 4942570140) 8.3 mg/dL 8.6-10.6 L eGFR (test code = 07832-0) 57.5 mL/min/1.73m2 CKD-EPI eGFR (2020). Assuming creatinine has been stable day-to-day for at least three months, the eGFR indicates Category G3a (45 - 59 mL/min/1.73 m2) Lab Interpretation (test code = 26806-8) [facility] [id number] 22:37:49EXAM: XR KUB, XR CHEST 1 VW [...] lbowel obstruction. Paucity of gas in the rectum.[facility] 1 [id number] 22:37:49EXAM: XR KUB, XR CHEST 1 VW [...] smallbowel obstruction. Paucity of gas in the rectum.[facility] with [id number] 10:34:43* Test Item Value Reference Range Interpretation [...] 32.3 g/dL 31.6-35.1 RDW-SD (test code = 56402-2) 59.7 fL 39.0-49.9 H RDW-CV (test code = 788-0) 22.6 % 12.0-15.5 H PLT (test code = 777-3) 478 166-358 H MPV (test code = 22421-0) 9.3 fL 9.5-12.9 L NRBC/100 WBC (test code = 5857924515) 0.4 0.0-10.0 NRBC x10^3 (test code = 3222796307) 0.09 See_Comment [Automated message] The system which generated this result transmitted reference range: 10*3/?L. The reference range was not used to interpret this result as normal/abnormal. GRAN MAT (NEUT) % (test code = 770-8) 81.2 % IMM GRAN % (test code = 5496090868) 6.60 % LYMPH % (test code = 736-9) 8.7 % MONO % (test code = 5905-5) 3.1 % EOS % (test code = 713-8) 0.1 % BASO % (test code = 706-2) 0.3 % GRAN MAT x10^3(ANC) (test code = 8145351191) 16.97 10*3/uL 1.88-7.09 H IMM GRAN x10^3 (test code = 4681251863) 1.39 10*3/uL 0.00-0.06 H LYMPH x10^3 (test [...] as normal/abnormal. TARGET CELLS (test code = 19833-5) 2+ See_Comment A [Automated message] The system which generated this result transmitted reference range: (none). The reference range was not used to interpret this result as normal/abnormal. Lab Interpretation (test code = 13900-2) [facility]11* Test Item Value Reference Range Interpretation Comme nts MAGNESIUM (test code = 4932581058) 1.9 mg/dL 1.7-2.4 Lab Interpretation (test cod e = 72846-0) Normal [facility] 10:08:11* Test Item Value Reference Range Interpretation Comme nts PHOSPHORUS (test code = 0829645784) 4.4 mg/dL 2.5-5.0 Lab Interpretation (test cod e = 58829-7) Normal [facility] (NA, K, CL, CO2, GLUCOSE, BUN, CREATININE, CA)2023-12-09 10:08:11* Test Item Value Reference Range Interpretation Comme nts NA (test code = 2744648239) 139 mmol/L 135-145 K (test code = 0371288425) 3.3 mmol/L 3.5-5.0 L CL (test code = 1787681572) 108 mmol/L 98-108 CO2 TOTAL (test code = 7132343448) 17 mmol/L 23-31 L AGAP (test code = 1296877297) 14 2-16 BUN (test code = 2762543099) 38 mg/dL 7-23 H GLUCOSE (test code = 6252764098) 103 mg/dL 70-110 CREATININE (test code = 2160-0) 1.30 mg/dL 0.50-1.04 H CALCIUM (test code = 4428399608) 8.3 mg/dL 8.6-10.6 L eGFR (test code = 34715-4) 43.0 mL/min/1.73m2 CKD-EPI eGFR (2020). Assuming creatinine has been stable day-to-day for at least three months, the eGFR indicates Category G3b (30 - 44 mL/min/1.73 m2) Lab Interpretation (test code = 41663-9) [facility]normal [facility] [id number] 23:07:14CT ABDOMEN PELVIS W CONTRAST 12/08/2023 10:55 [...] wallsurgical wound, partially visualized. Dependent subcutaneous edema isnoted.[facility] 1 [id number] 19:22:20Study: Single view chest. Ordering Physician: DONA ELKINS Date: 12/08/2023 4:00 AM History:respiratory monitoring COMPARISON: 12/07/2023 Findings: Single frontal view chest demonstrates mild cardiomegaly. Patchyleft basilar atelectasis is identified. The lungs are otherwise clearwithout infiltrate, pleural effusion or pneumothorax. The right internaljugular venous catheter terminates over the distal superior vena cava. [facility] with [id number] 09:56:35* Test Item Value Reference Range Interpretation [...] 31.6 g/dL 31.6-35.1 RDW-SD (test code = 50961-0) 59.4 fL 39.0-49.9 H RDW-CV (test code = 788-0) 22.2 % 12.0-15.5 H PLT (test code = 777-3) 444 166-358 H MPV (test code = 54671-1) 8.9 fL 9.5-12.9 L NRBC/100 WBC (test code = 4709809443) 0.5 0.0-10.0 NRBC x10^3 (test code = 8291677171) 0.08 See_Comment [Automated message] The system which generated this result transmitted reference range: 10*3/?L. The reference range was not used to interpret this result as normal/abnormal. GRAN MAT (NEUT) % (test code = 770-8) 79.7 % IMM GRAN % (test code = 5540153502) 5.90 % LYMPH % (test code = 736-9) 9.8 % MONO % (test code = 5905-5) 4.2 % EOS % (test code = 713-8) 0.2 % BASO % (test code = 706-2) 0.2 % GRAN MAT x10^3(ANC) (test code = 1558972592) 13.21 10*3/uL 1.88-7.09 H IMM GRAN x10^3 (test code = 8042184578) 0.98 10*3/uL 0.00-0.06 H LYMPH x10^3 (test code = 731-0) 1.63 10*3/uL 1.32-3.29 MONO x10^3 (test code = 742-7) 0.69 10*3/uL 0.33-0.92 EOS x10^3 (test code = 711-2) 0.03 10*3/uL 0.03-0.39 BASO x10^3 (test code = 704-7) 0.03 10*3/uL 0.01-0.07 Lab Interpretation (test code = 39240-4) [facility]normal [facility]2024-[facility]-13 09:36:27* Test Item Value Reference Range Interpretation Comme nts MAGNESIUM (test code = 8123162071) 2.0 mg/dL 1.7-2.4 Lab Interpretation (test cod e = 13079-2) Normal [facility]2024-09-13 09:36:27* Test Item Value Reference Range Interpretation Comme nts PHOSPHORUS (test code = 8714582514) 4.6 mg/dL 2.5-5.0 Lab Interpretation (test cod e = 36213-0) Normal [facility] (NA, K, CL, CO2, GLUCOSE, BUN, CREATININE, CA)2023-12-08 09:36:27* Test Item Value Reference Range Interpretation Comme nts NA (test code = 0868656642) 138 mmol/L 135-145 K (test code = 7636019467) 3.2 mmol/L 3.5-5.0 L CL (test code = 4449629784) 108 mmol/L 98-108 CO2 TOTAL (test code = 6214118452) 19 mmol/L 23-31 L AGAP (test code = 8820754285) 11 2-16 BUN (test code = 6778902352) 38 mg/dL 7-23 H GLUCOSE (test code = 3798430093) 92 mg/dL 70-110 CREATININE (test code = 2160-0) 1.41 mg/dL 0.50-1.04 H CALCIUM (test code = 2447962806) 7.9 mg/dL 8.6-10.6 L eGFR (test code = 72242-0) 39.0 mL/min/1.73m2 CKD-EPI eGFR (2020). Assuming creatinine has been stable day-to-day for at least three months, the eGFR indicates Category G3b (30 - 44 mL/min/1.73 m2) Lab Interpretation (test code = 01208-1) [facility] 1 [id number] 14:51:27Study: Single view chest. Ordering Physician: DONA ELKINS Date: 12/07/2023 4:00 AM History:respiratory monitoring COMPARISON: 12/06/2023 Findings: Single frontal view chest demonstrates a normal heart size.Persistent left basilar airspace opacity is identified which may resultfrom atelectasis or pneumonia. Small pleural effusions persist. Nopneumothorax is defined. Endotracheal tube terminates 5.1 cm above thecarina. The right internal jugular venous catheter terminates over thedistal superiorvena cava.[facility] with [id number] 09:34:07* Test Item Value Reference Range Interpretation [...] 32.3 g/dL 31.6-35.1 RDW-SD (test code = 05318-2) 58.8 fL 39.0-49.9 H RDW-CV (test code = 788-0) 21.4 % 12.0-15.5 H PLT (test code = 777-3) 409 166-358 H MPV (test code = 83904-9) 9.2 fL 9.5-12.9 L NRBC/100 WBC (test code = 8583104521) 0.4 0.0-10.0 NRBC x10^3 (test code = 9832563411) 0.06 See_Comment [Automated message] The system which generated this result transmitted reference range: 10*3/?L. The reference range was not used to interpret this result as normal/abnormal. GRAN MAT (NEUT) % (test code = 770-8) 77.3 % IMM GRAN % (test code = 2895059728) 6.80 % LYMPH % (test code = 736-9) 11.4 % MONO % (test code = 5905-5) 4.3 % EOS % (test code = 713-8) 0.1 % BASO % (test code = 706-2) 0.1 % GRAN MAT x10^3(ANC) (test code = 8597594448) 12.30 10*3/uL 1.88-7.09 H IMM GRAN x10^3 (test code = 6945712215) 1.09 10*3/uL 0.00-0.06 H LYMPH x10^3 (test code = 731-0) 1.81 10*3/uL 1.32-3.29 MONO x10^3 (test code = 742-7) 0.69 10*3/uL 0.33-0.92 EOS x10^3 (test code = 711-2) 0.03-0.39 L BASO x10^3 (test code = 704-7) 0.01-0.07 Lab Interpretation (test code = 15974-0) Abnormal [facility] [place] [place] Metabolic Panel (NA, K, CL, CO2, GLUCOSE, BUN, CREATININE, CA)2023-12-07 09:19:04* Test Item Value Reference Range Interpretation Comme nts NA (test code = 0346339651) 136 mmol/L 135-145 K (test code = 7779219599) 3.3 mmol/L 3.5-5.0 L CL (test code = 9884474915) 106 mmol/L 98-108 CO2 TOTAL (test code = 1646827055) 18 mmol/L 23-31 L AGAP (test code = 1317396423) 12 2-16 BUN (test code = 5407387232) 41 mg/dL 7-23 H GLUCOSE (test code = 6374699385) 102 mg/dL 70-110 CREATININE (test code = 2160-0) 1.96 mg/dL 0.50-1.04 H CALCIUM (test code = 7752438753) 7.9 mg/dL 8.6-10.6 L eGFR (test code = 40724-2) 26.3 mL/min/1.73m2 CKD-EPI eGFR (2020). Assuming creatinine has been stable day-to-day for at least three months, the eGFR indicates Category G4 (15 - 29 mL/min/1.73 m2) Lab Interpretation (test code = 32241-1) Abnormal [facility]2024-09-12 09:19:04* Test Item Value Reference Range Interpretation Comme nts MAGNESIUM (test code = 2745599888) 2.0 mg/dL 1.7-2.4 Lab Interpretation (test cod e = 20855-5) Normal [facility]2024-[facility]-12 09:19:04* Test Item Value Reference Range Interpretation Comme nts PHOSPHORUS (test code = 4669083169) 4.7 mg/dL 2.5-5.0 Lab Interpretation (test cod e = 60546-1) Normal [facility] 20 + Lactic [id number] 08:32:46* Test Item Value Reference Range Interpretation Comme nts PH (test code = 2) 7.41 7.35-7.45 PCO2 (test code = 5690122983) 29 35-45 L PO2 (test code = 0348113927) 305 80-100 H HCO3 (test code = 8266024593) 18 22-26 L BE (test code = 5989666474) -5.8 -3.0-3.0 L THB (test code = 3361029121) 9.3 g/dL 12.0-16.0 L %O2HB (test code = 8135448348) 98.5 % 94.0-99.0 %COHB ART (test code = 0554000934) 0.9 % 0.0-1.5 %METHB ART (test code = 9624610322) 0.3 % 0.4-1.5 L VOL%O2 ART (test code = 9167676938) 13.7 % 15.0-23.0 L NA (test code = 3627983345) 138 mmol/L 135-145 K+ (test code = 3893518669) 3.4 mmol/L 3.5-5.0 L AC CA IONZ (test code = 1901713124) 4.40 mg/dL 4.50-5.30 L GLUCOSE (test code = 0379821494) 97 mg/dL 70-110 LACTIC ACID (test code = 2006962621) 1.85 mmol/L 0.50-2.20 Lab Interpretation (test cod e = 71752-2) Abnormal [facility] [id number] 22:05:08* Test Item Value Reference Range Interpretation Comme nts Case Report (test code = 9077011819) Surgical Pathology ?Case: [id number] ? Authorizing Provider: ?Taylor Segundo MD ?Collected: ? 12/04/2023 0123 ?Ordering Location: ? ? [facility] OR ? Received: ?12/04/2023 0830 ? Department ? Pathologist: ? Sallie Piper MD ? Specimen: ? ?LARGE INTESTINE, SIGMOID COLON, sigmoid colon ? Final Diagnosis (test code = 1218782973) z7ynpROoROEoc9khYBSylM FuZzEwMzNcZnRuYmpcdWMx EByjfcTwUWuekImiCAH6CR ItLV9hzUlzuKm3uNnjQEZu muT9dIFrYCukc7yuESH4j5 eizelwVXAaDYcbGk4gjTZo wXwcExCkVJMjUTr1rR16GK WpzT2afMKoIGrehuTkPLPi L4XlVS0qMYposCCmAJI8KO QcFXS8RSfcnrRodyZ3YBom oRMbQfA8T75stLViWKV5YY KcXSKlkMPeKZWyNMN8CEEb pJCnN3ofJBOiMT0wfdkrSK vuEKllATHrsPE0MOMdlCNz R4RsUTKgEOlwVDFqovb5Iv AnDo0jxCKoxRfwCSozZIGf XHBsYWluXGZzMjBccGFyIE BfTXMQIY4HZYBPWAqMA0pG AJIPDSeSJH2VUBucQmVOVX UOLE8LIesnMLEqE8EnXRPe F9YqMUViWW4hIXb+LSBESV NJUnONM7NUA4XOUsVSNMKW IEFDVVRFIERJVkVSVElDVU uYUBkYDIFOQIWHQ3JMEEYY WCZDK1rTKWBhvVFdCBClxb x+NX1pOPILO0TMCOoNFzSK NNGNQQ4GBRRWFRFSVIFytR CzFXLmXHmwzOYhnYW6PYiu YXJccGFyXGZzMjIgTWFocm VlbiBIdXNzYWluLCBNQkJT VMW3WzVkRpOfToRnXGJ9Tj CyBI9daNZuEBMxXhJkhOCd eEcnqaIlBNflc8NyW6KbVo AwMFxhbnNpXGRlZmxhbmcx MHSdRPV9rdLhXJVgSLpsAQ WeHBvhQl8qhGAueTnuEdDm KEYsd2kwfaSYDEytJrFtO0 58KLPhKUwjz9aqt0HkKQSs lGHjh9G3VWVSvessdCi0b0 xjVkNnXjA7lKUoJCslM5sg kfHktHBtW8KlgAAfaKx7fX ylV40ln7W0DvepG6rmCZGf YZGaA4JkYM3cIYJjKer9IF Y6EVW1ITUeAGKaO0WbZA3g LYKkbVEqXBh5n9avwTukIL OtELK6f2huOKmqwrK8DV7x sq8piRz3h5cpjrDpQFKkVT ZshVVUVCLiX7CuuCmcLu8o fFi6iKqhFyqdSBR7Amz1TA 5kqy34szr3nLxcNECjxnnf QgU4RDsqPWPriqswLKe6DU bbKVUlzYU0HTSksNLmC5Op EGJkXH4cvnj8LCF7UFejBX SwDhD5CSZugXNzZSZnnPow JRdtc630MXK9YhIfOU3aM1 Fko1E3nA3yjAYePNHxvTNz TdXkPBGnhf2clENeILrzm5 AuHRG5ixF5cTNmlOUiHMEc BT38Hfigf3RpUpsaCQY6DJ KcwmIpb5Xlr0tjDwCmreLu E4bpU2JtKHWuQDCmDLDmWm LkozFle0Xsx7DyjHJeiDz5 p3ycSKVoGVCfcDzoq7aqTM P4AGVtT1T3oJEkx1ptVQlj LCKvpXQ3ixW8JPZwjUNgF5 PaqH3pGUNzYK4yugg6s1bd PZK4OUwrURQqLsH7dqH7DR FfzRFkPSBhjQkfZMakx051 YAB4NuXjMOFee9DkV2QbdX doK24mwKloZ29eFGJgjFwe pE3ayOoilU8fHgYyHmUuSV xxbFxwbGFpblxmMVxmczIw TWhlsskhRZLbBXakF7jaHe UbPGRdmNbsZPmxx1CyZHSw XGNmMlxmczIwXHBhciBJIG ihckCynEVkb20sMBxuuAVk HXQcTTruQVIrqUmib0PrM9 fzML1hU2QhsZZqaiAfskVy ZNzxNWSbl4v6lODtcDzca6 OcmYYdET45yyDtJVXnNGM9 AFXea9bnTM47yuvsKaGejK 81bnHoueAxGQTdj1biD4re nIWjt4Wff2FalzNgRAiza7 OwCP7peDRxqjtbjJF4JZIy eDMqdhSzgjZ4aXzmXYQysF 7osI7ycBfymU2ePyTtAqRn EWpeDR8zILRrN6skuAAwKS JtKNZnK3bzSzOriP4deZwu JnkhdgW3NXAipe72 Clinical Information (test code = 5843904775) Colon perforation [K63.1] Gross Description (test code = 7762940827) w4dccERrEGCtyUBLINM7UO MeOD3usByugQe3vYayPLXi kqI9wXZoPAlme2euVZO1k1 peztOJAlroBEQwYV5fFTqw SPGoKJ9oRkZjFRJtSfIeZL BhcGVydzEyMjQwXHBhcGVy qCS5RNJzVK3gcfknACqaXC thUUMuglC2LTSgtFAmH8Dp XWEfRC1dwyidRZN4AHZQBq jxKf4uwROwoBnePgIaXeAy JQYzYIQxHOVvf0gwugNLkb dweXq1wH8OABGjF4IoYG4I u6wgDJKntZCjELJ9MTzyx5 wnRNsdNYJ1AFMtUKByUHAw FS2WPfVjSPD4EMOtPAD1Nm K8PBw6CWKULZVwCESgGtL4 OAV8QKn9PVHiSY9xKMvgfY HiKQlhPfklSMcuE403BGin VWNyG1KwV4SvYSgaMfChUC fyFHZjIENcOXkfNDGtS7XX MXVwNELzBdV3AJGpVBu2VW u9VA9VCxCyXODeRvZ5EUr5 DHLeRKs5ZEqaET4ZVDImVV W7IpU5AaIkUOU0FsqtVHt5 IDIgXFxzcyAzIFxcZmwgXF miY96gzOWfLAHDLdxedZNj blxmczIwIFNQRUNJTUVOIE TvvJQrR7xwKpKmPnhlHGGs DQpccGFyZCANClxwbGFpbl xsdHJjaFxmczIyXGVwaWNO ETM4DI0wPVADFlkeyFOuGL OhSQzKsYTdbR2rnzZDRUks SNJoC8DdmqCdPWWiZTAzRM yoTjUoADHgr8h4eLB4dVIn fQB6yWNszVwzUO9rzXOzAI DDYK25fQCqvefpYkAuQ97w oXXfH20mi61kNZFxOSGjr2 3wgQG1noXfVfTeLMOrjf8s uL7hXEDkb8EbIA29OXCme0 VnbWVudCBvZiBsYXJnZSBi h2qbkELkGJZeFJCwlCQgbd GlFF5ssGowPffvVs7kLMXr XBdqREEzCP9svHVbHQX3gY VdMA6pJBLyJROnjF7je2Be bvZbOE1wfH7teHVwQJBdy4 GpwEphYWBuPWOztN1zOOBb ESAbSAOeu6GpMFE5wxJmA7 UgaXMgcmVtYXJrYWJsZSBm u0FoJIA5UR0eV7ZaMF3lZU YjCIBtIySrgXD8dOUtuTOe yLGzKGJjVYe9iEK3lcS0Bk WoZ94glO8hX6IeSFEsc7Xu LNdiDL5rkI9mGDZ5wYW9QB NvbWVzIHdpdGhpbiAwLjYg Q42uh8HtpDenRZXfc2Dcz9 OlqEImU3hgJcZXyTTuvoRm JJdfzZ1pITZejb6aWFGlxs Lzdzn4hUKpOLFfgAJwKXAP jCRck3CoM2fgPC8wjROzv5 BlbmVkIHRvIHJldmVhbCBh ZGGnuYHdfGKsmJ6doeQxmJ blHDYyf1j0oBFkky00vmYu BA5oHMLjmZyaTNVaOLRsvT cyOYCpO3LkXJ0ibZVorWSl FiVWsYLgrJOly4SmSYpkCC UmhEMdi3KpkQOwOv9sIR51 bHRpcGxlIGRpdmVydGljdW efMIPvhTBhq4r0qIBdyCou SGBay0k1vLNjj2moLUZyQJ NyfYWjEWLkbecigS7nVYit LN72Y60fETO7RRqsKX1aMY L8zkXdECYdPRIrSWGsAEDo gBMegcH9mZura62dq4WrBU hlIHJlbWFpbmluZyBtdWNv o9EkcGUolKWuGSXkpdvcJE 5kIHVucmVtYXJrYWJsZSBm l0JyuV9ibAGhBHAwBWNqu4 5qLZOctjTvoFUvKt5jNSVz c23hBmLzlZSeVI2ZYSLkbk EOBjOkc67tnfBtSEa0JEAz lS6ocTaaIZNqyyJwgZ6uix AzeuRbILIcvg6xtH6nPDEu IGRldGFjaGVkIGZyYWdtZW 97ZQ9vDGizpbskNOGom9Tp RKr9JlNgU70olM6jzZHfY0 SiVED4XNTySHRpbMPvjlEz aWFtZXRlcikuIFRoZSBzcG WllT3adzTswtTxyUYpIHXx oV4daaA2SLTcYHPdx3ucU6 kqABNpjoVvfGpriYo2vT7d JJkzUE34A07lJSS0DJrdVO 9qXBI5qwReZWSdCWWaYYVn LeNehKKhkfA9bQhys74od0 KrKZGhVVXlER9uiO3zhsjl kLAlh9RbWBphWNJrfl7jiQ 2yIEJfZXH8miWldSLje5Fm nKRjFn9wUTOrjDbfhwtbwY YgoJ2lxcbkVU2qGHCzubYf wqT7rN0nbm4tfGCcAW6OPC VjbkVSGdAlmYArn5FszUM5 rDLiPMKsQ8Crp15eXAGsGB EgdCRtvZH3GGBnlY4lOMAi uBdgJDWwUIk8ZdUdFM7ydY JbXU6JAMPcdbDKPpOtB9Wv q70jV96lGTvalIFnQV2JVF VkNVG4IFX8SZBbWGOjjZLt B7mcCGCufvXyPVPeJZBwbu CNWiVxHkIVnEAwBJ0jtnxn ffqyNC0oKhTtSTgwTLTaAT lCIF4JKucfMZh8CDE9uMT2 rMYdBIVklAZqh2FsmNN5jN KbZDBbcwJISfG8JcAMdmnq ph5wskVmKC78S95hHGiilf SglhXvGX88XWQrlsFunLNo XJ5GKXtaABn8DJHbyWYtnO JeNFBhQNnzXB60CQ1rzodt eyVlDKPdQRSiH4NczJAdFR 0KQTEwOiBEZXRhdGNoZWQg PdKcE47uvgUpONEtjnAbrJ jvdGl6fJefzsSzchAqXB48 LWRbgoUelWObFK8BNJAlep ANCkhpbGxhcnkgUHJpbmNl AXnUWMiSH7UTNIYSEMZNhZ GuHK94BCJuzvPGVta7sMvv KY5sHSypDH6ddDmnVULxYR NBQ3SlDZZojtXAIufzJXAf BXJtbQFQq6ZtQNCNZzlokL ruUoDwhYGjCjD6CYPwcYMo LXF1CY0vbMizXUFeX8QxZ2 VspqL9TAWxgzTVJzbhXPCh IA0KfQ== Disclaimer (test code = 0714591392) z3esfTIiKCKys6ndXAJaoS FuZzEwMzNcZnRuYmpcdWMx KZejxeClPPlnk8HpL2TsVw AwMFxhbnNpXGRlZmxhbmcx MYQnIOG4hpPdLJJtPUitFF JhVPbgFq9otJYpvLyjFpXo RVUnn5ueglTIBFdkRzSbH4 60JSIiAGnhl0dkg7QmAEQd cLDgi0D4ZSEBayarfEo8aM jlS07vo3Y6CbtbP0kaMPXt OECvX2JeUD9fEXZyMtf3YI X5FUH1FIMwDJNiB0JnAL3m SZLtfDWdVAp2u7lhyKtiKA DwYFV4l0wwMMewjyBbHG2p cv5eeXm0w8wfaaVfQEHwLO DivXEPSTZhD9QzhQgjLc3p cTn4jAckNyuhKIH4Aww3CZ 0bha16mnr3zGueQDIiycqd VlG8DRepDXXlcbwfNHv8ZA ezMNTpwQC6XJDgpKOuJ7Oh KUCePJ0tjvb6QGI9LIdmYG OfEjR7DMFxdHTsHFOcnNat IUjrz216HZQ3XmLjFH4kX0 Lkn0T5sN5fgCKeWIEivKKs XiUhGLXfzg1hvGLcOYett1 GlRTN0wiC0eNIaoFHnLRYn TZ49Ycfhp1IcSzptt5XqA4 0mlBS2TJpfs9lzLX3lByL3 kcCfAUcao5pemH8jTwW0UL ymMT6hXO8yFVMxbQ4ywaax XHBnYnJkcmhlYWRccGdicm JrNk9ylZcpVCZ3OWqiL8zv wC4vTzA0VCsmP3bbdP1zNL c0MBvagUF2FUYkrQ1sXF4w ndcjs6fmDTalLGfzIECdlc J1wuX7ESTqpDAxN5ZdhI2e LVLyWN5jjzdlg5gmFZY6ZD hwMWFtODD6WhXyDNMmn5Rs nka7WxHka2WyyHZlQLjnS8 1mi879WZGoooXeO3jofIFi xkmwjCYnzclzQDfssfP5IX PvsvIms5FxXZFgKTS9WDlt EAiirYWhRFDixHsyb9soM8 RscGFyXHBsYWluXGYxXGZz MjBcbGFuZzEwMzNcaGljaF kjILuoOrSsKPFuAWhcP2xs BfFoE3PsHBTsXoXgfPKkM9 ggVGhpcyByZXBvcnQgbWF5 SCfeX7a5DKSvdhMzbHy2zb MzZaZpZSTbYKI8WHhucDVw OBAhl5LqfgrezZLqXy9qjU FtFUChtJ7wQBBtYRIgGLae IQ7gwZk9KGIThOPbbJNtNa XNVFEkWY99xhRiTTMPwtsx n5M7WUxaDYIsf6GfeJLpK3 jpe9SjJIDvk68nVO7yu6M6 a0lvETE2XQ1dh0KaTIVfgQ UaeIYeZABdb8Mryapyh9Fd AEKhgtWuo1QgHPNicwGglI KqRYMmhjAxlh2qfvJuQUUj EOVvJ9AugqxarQndaxGqXM Vjce4gcvUnXSE8QUUBJAFz TPNep2DicN8roAZQIUF4tC Vctw9pigWDyPWeJXObaf73 DUWqIL2eD7jmOZLsNASilv MvrZAnx3PaJZMcoGI4qMDg KF6GOaALa90cXLJpBAWKoa KjVALuwXsqlVJ1luO1kY7t IChGREEpLlx+IFRoZSBGRE VyIV0zpxVht5CxgbDeiCtl UYJwtQFvd3SpbYCwc8DcpB ecx4MqvDDexIFmQM6rRLXp clxwYXIgVVRNQiBMYWJvcm M7f9EuYLPvWORqAWO7qAjt cni8GZKvdQ6iDWTbM1xqhp soDYaoXIIgi9NcyR5zuKCF wQTof1NbuLSlrEUZkVZmSM 3knyItRQlGDGpWKMS1juCr IJIte1HjHMioR7xwN39egE iytYv1pVL1QPT6xF3wKfr+ IFxwYXJccGFyIEFwcHJvcH XfJHIxzCawtgTqX9YvneQn wC6pdOCrczNvSU9eSF9fG1 S7qWTrRYWoivOwb2cgFFny dmUgYmVlbiByZXZpZXdlZC Xly5DeDHtqIJL0SOgnqdYq bmNsdWRpbmcgSCZFLCBTcG ZvoPEbFPM4GOgchqCjixMd VY5faB7ivRcmhU3igCRqhP P2dxanVGFwHVAdlLxxDKFq UV4azRivmL9aWpDkTaPkCR kiNO4kNZXaO8jlgADgCVVl VREiR2wkMjGzyU9reGuiKH xjZjJcZnMyMFxwYXJccGFy XHBsYWluXGYxXGZzMjBcbG FuZzEwMzNcaGljaFxmMVxk KfCkCAViNHvcY2ixSkMqY0 ReSPElVpBnmNLfE7upQTak ZYR2OFYzBU9yrDRqHJ57hT Hdu0seQFwycIvson8qW05w gLPmSFqrzYhvAJLpt80wu2 UeHSNulrXpek7bVAXwjhZ4 zX0rCIUjxJivJFYuvGUeFJ Obs7ObAJauvUOthqKeSWtq OCDaALNceCNyayF8kpLmcf GlwsWpBHSgyUihDYRib6Iz VGKbRWjwi8Mquy1laDTyGN DaynKKwOqqlYKhcP4oM0Rn FWErHVWevq7dWYEpgF6fJC vci3VxtyvhYRFcRXNjLHBd feOsjd7bRPLdyUKYPB5VEG qvvRHmx6SiukUrV6lMQWX9 NUQwNjYwMjgxKSBleGNlcH AiHOMhay41UWJepH0fnTsl XOIeeH0xmJ4cmIqczO3bRj XiQySvEYrwBF9nISFcS3ab nMOnDCEoLXKfX8uaCeEamT 9jaFxmMVxjZjJcZnMyMFxw YXJ9fQ== Embedded Images (test code = 4203800187) [facility] [id number] 20:30:39EXAM: XR CHEST 1 VW COMPARISON: Multiple [...] soft tissues: No osseous abnormality is visualized. [facility] + Lactic [id number] 14:58:15* Test Item Value Reference Range Interpretation Comme nts PH (test code = 2) 7.43 7.35-7.45 PCO2 (test code = 6427368629) 29 35-45 L PO2 (test code = 8190700430) 113 80-100 H HCO3 (test code = 8707978996) 18 22-26 L BE (test code = 6877785550) -5.1 -3.0-3.0 L THB (test code = 1504107013) 8.9 g/dL 12.0-16.0 L %O2HB (test code = 9194155307) 96.3 % 94.0-99.0 %COHB ART (test code = 0813687413) 1.8 % 0.0-1.5 H %METHB ART (test code = 0524716452) 0.3 % 0.4-1.5 L VOL%O2 ART (test code = 5065827736) 12.3 % 15.0-23.0 L NA (test code = 1861866309) 138 mmol/L 135-145 K+ (test code = 8062736317) 3.7 mmol/L 3.5-5.0 AC CA IONZ (test code = 3093761787) 4.30 mg/dL 4.50-5.30 L GLUCOSE (test code = 0713114348) 112 mg/dL 70-110 H LACTIC ACID (test code = 3057156240) 1.59 mmol/L 0.50-2.20 Lab Interpretation (test cod e = 84123-9) [facility]normal [facility] (NA, K, CL, CO2, GLUCOSE, BUN, CREATININE, CA)2023-12-06 10:20:05* Test Item Value Reference Range Interpretation Comme nts NA (test code = 0160680927) 136 mmol/L 135-145 K (test code = 9474019023) 4.0 mmol/L 3.5-5.0 CL (test code = 5294212018) 107 mmol/L 98-108 CO2 TOTAL (test code = 2710204140) 16 mmol/L 23-31 L AGAP (test code = 9025240957) 13 2-16 BUN (test code = 9108041880) 41 mg/dL 7-23 H GLUCOSE (test code = 8765268424) 115 mg/dL 70-110 H CREATININE (test code = 2160-0) 2.10 mg/dL 0.50-1.04 H CALCIUM (test code = 4050021991) 7.9 mg/dL 8.6-10.6 L eGFR (test code = 82344-8) 24.2 mL/min/1.73m2 CKD-EPI eGFR (2020). Assuming creatinine has been stable day-to-day for at least three months, the eGFR indicates Category G4 (15 - 29 mL/min/1.73 m2) Lab Interpretation (test code = 30360-2) [facility]normal [facility]24-[facility] 10:20:05* Test Item Value Reference Range Interpretation Comme nts MAGNESIUM (test code = 4970533831) 2.1 mg/dL 1.7-2.4 Lab Interpretation (test cod e = 57982-7) Normal [facility]2024-[facility] 10:20:05* Test Item Value Reference Range Interpretation Comme nts PHOSPHORUS (test code = 9989492014) 4.7 mg/dL 2.5-5.0 Lab Interpretation (test cod e = 10254-4) Normal [facility] HospitalCbc with Mvhx0237-58-22 09:59:09* Test Item Value Reference Range Interpretation [...] 32.7 g/dL 31.6-35.1 RDW-SD (test code = 10845-1) 57.8 fL 39.0-49.9 H RDW-CV (test code = 788-0) 21.9 % 12.0-15.5 H PLT (test code = 777-3) 437 166-358 H MPV (test code = 43239-8) 8.8 fL 9.5-12.9 L NRBC/100 WBC (test code = 6609971274) 0.2 0.0-10.0 NRBC x10^3 (test code = 8177791707) 0.03 See_Comment [Automated message] The system which generated this result transmitted reference range: 10*3/?L. The reference range was not used to interpret this result as normal/abnormal. GRAN MAT (NEUT) % (test code = 770-8) 82.2 % IMM GRAN % (test code = 6350022519) 6.10 % LYMPH % (test code = 736-9) 8.5 % MONO % (test code = 5905-5) 3.0 % EOS % (test code = 713-8) 0.1 % BASO % (test code = 706-2) 0.1 % GRAN MAT x10^3(ANC) (test code = 2028564377) 15.85 10*3/uL 1.88-7.09 H IMM GRAN x10^3 (test code = 5737084843) 1.17 10*3/uL 0.00-0.06 H LYMPH x10^3 (test [...] as normal/abnormal. Lab Interpretation (test code = 07788-6) Abnormal [facility] HospitalPrepare Packed RBC (in units), 1 Units 2023-12-06 09:47:53* Test Item Value Reference Range Interpretation Comme nts Cross Match Result (test code = 4409) Compatible ISBT Blood Type Code (test code = 992618) 6200 Unit Blood Type (test code = 4410) A Pos Unit Number (test code = 4411) [id number] Blood Expiration Date & Time (test code = 956068) [id number] Status Information (test code = 4412) Issued Product Identification (test code = 4413) Red Blood Cells Product Code (test code = 4414) [id number] Performed at [facility] Laboratory Services [facility] Blood [address] [address] Free: [phone] No. [id number] [facility] Panel 20 + Lactic Turp8012-56-54 08:25:51* Test Item Value Reference Range Interpretation Comme nts PH (test code = 2) 7.42 7.35-7.45 PCO2 (test code = 7693697208) 28 35-45 L PO2 (test code = 3623280705) 121 80-100 H HCO3 (test code = 0162634330) 18 22-26 L BE (test code = 9115197046) -5.8 -3.0-3.0 L THB (test code = 7441897545) 8.0 g/dL 12.0-16.0 LL %O2HB (test code = 6095138394) 97.6 % 94.0-99.0 %COHB ART (test code = 8192131025) 0.8 % 0.0-1.5 %METHB ART (test code = 4441863318) 0.3 % 0.4-1.5 L VOL%O2 ART (test code = 3628971690) 11.2 % 15.0-23.0 L NA (test code = 4039393846) 136 mmol/L 135-145 K+ (test code = 4518195709) 4.1 mmol/L 3.5-5.0 AC CA IONZ (test code = 1692270644) 4.30 mg/dL 4.50-5.30 L GLUCOSE (test code = 1397603971) 109 mg/dL 70-110 LACTIC ACID (test code = 4288819895) 1.56 mmol/L 0.50-2.20 Lab Interpretation (test cod e = 42540-5) Abnormal [facility] Arterial Blood Gas. 30 minutes post ventilation.2023-12-05 17:42:21* Test Item Value Reference Range Interpretation Comme nts PH (test code = 2) 7.42 7.35-7.45 PCO2 (test code = 1155548337) 29 35-45 L PO2 (test code = 7893064162) 132 80-100 H HCO3 (test code = 9021007962) 19 22-26 L BE (test code = 3422518128) -4.5 -3.0-3.0 L Lab Interpretation (test cod e = 64173-4) [facility] [id number] 14:08:34Study: Single view chest. Ordering Physician: DONA ELKINS Date: 12/05/2023 4:00 AM History:Intubated, respiratory failure. COMPARISON: 12/04/2023 Findings: Single frontal view chest demonstrates cardiomegaly. The lungsappear clear without infiltrate, pleural effusion or pneumothorax. Theendotracheal tube terminates 5.0 cm above the sera. The right internaljugular venous catheter terminates overthe distal superior vena cava.[facility] with [id number] 09:58:11* Test Item Value Reference Range Interpretation [...] 32.0 g/dL 31.6-35.1 RDW-SD (test code = 36006-6) 56.0 fL 39.0-49.9 H RDW-CV (test code = 788-0) 21.4 % 12.0-15.5 H PLT (test code = 777-3) 614 166-358 H MPV (test code = 10151-1) 8.9 fL 9.5-12.9 L NRBC/100 WBC (test code = 5247981766) 0.3 0.0-10.0 NRBC x10^3 (test code = 0981548560) 0.06 See_Comment [Automated message] The system which generated this result transmitted reference range: 10*3/?L. The reference range was not used to interpret this result as normal/abnormal. GRAN MAT (NEUT) % (test code = 770-8) 82.5 % IMM GRAN % (test code = 3398339440) 4.10 % LYMPH % (test code = 736-9) 9.4 % MONO % (test code = 5905-5) 3.8 % EOS % (test code = 713-8) 0.0 % BASO % (test code = 706-2) 0.2 % GRAN MAT x10^3(ANC) (test code = 2993681176) 18.23 10*3/uL 1.88-7.09 H IMM GRAN x10^3 (test code = 3505707374) 0.91 10*3/uL 0.00-0.06 H LYMPH x10^3 (test [...] result as normal/abnormal. BANDS (test code = 2820482464) Increased A Lab Interpretation (test code = 24581-5) [facility] (NA, K, CL, CO2, GLUCOSE, BUN, CREATININE, CA)2023-12-05 09:41:38* Test Item Value Reference Range Interpretation Comme nts NA (test code = 0844757726) 134 mmol/L 135-145 L K (test code = 8696262991) 5.0 mmol/L 3.5-5.0 CL (test code = 7618961989) 104 mmol/L 98-108 CO2 TOTAL (test code = 7588161739) 16 mmol/L 23-31 L AGAP (test code = 6913421295) 14 2-16 BUN (test code = 0964963434) 38 mg/dL 7-23 H GLUCOSE (test code = 5554473495) 121 mg/dL 70-110 H CREATININE (test code = 2160-0) 2.53 mg/dL 0.50-1.04 H CALCIUM (test code = 9057192091) 8.1 mg/dL 8.6-10.6 L eGFR (test code = 78834-6) 19.3 mL/min/1.73m2 CKD-EPI eGFR (2020). Assuming creatinine has been stable day-to-day for at least three months, the eGFR indicates Category G4 (15 - 29 mL/min/1.73 m2) Lab Interpretation (test code = 65160-5) [facility]normal [facility]esium2024-09-10 09:41:38* Test Item Value Reference Range Interpretation Comme nts MAGNESIUM (test code = 9434070764) 2.1 mg/dL 1.7-2.4 Lab Interpretation (test cod e = 33513-0) Normal [facility] Hospital[facility]orus2024-09-10 09:41:38* Test Item Value Reference Range Interpretation Comme nts PHOSPHORUS (test code = 2640119131) 4.9 mg/dL 2.5-5.0 Lab Interpretation (test cod e = 62467-8) Normal [facility] + Lactic [id number] 08:38:38* Test Item Value Reference Range Interpretation Comme nts PH (test code = 2) 7.43 7.35-7.45 PCO2 (test code = 7398667572) 28 35-45 L PO2 (test code = 4110452191) 112 80-100 H HCO3 (test code = 5467324906) 18 22-26 L BE (test code = 4899714412) -5.3 -3.0-3.0 L THB (test code = 8313981155) 7.9 g/dL 12.0-16.0 LL %O2HB (test code = 0373237124) 97.3 % 94.0-99.0 %COHB ART (test code = 6667872978) 0.7 % 0.0-1.5 %METHB ART (test code = 0939646950) 0.3 % 0.4-1.5 L VOL%O2 ART (test code = 5071631546) 11.0 % 15.0-23.0 L NA (test code = 0515862790) 134 mmol/L 135-145 L K+ (test code = 0621090452) 5.1 mmol/L 3.5-5.0 H AC CA IONZ (test code = 5650418622) 4.30 mg/dL 4.50-5.30 L GLUCOSE (test code = 4392491715) 120 mg/dL 70-110 H LACTIC ACID (test code = 0713643256) 1.95 mmol/L 0.50-2.20 Lab Interpretation (test cod e = 61035-8) [facility] [id number] 05:27:23Ordering physician: TAYLOR SEGUNDO Indication: Central line placement Comparison: Chest dated 12/04/2023 at 1940 Technical quality: Adequate Findings: Single AP view of the chest. Endotracheal tube terminates 5.6 cmabove the sera. Right internal jugular central venous catheter terminatesjust past the cavoatrial junction. The cardiopericardial silhouette ismoderately enlarged. The lungs are clear bilat erally. The visualized bonythorax is intact.[facility] 1 [id number] 05:20:21Ordering physician: TAYLOR SEGUNDO Indication: Central line Comparison: Chest dated 12/15/2023 1949 Technical quality: Adequate Findings: Single AP view of the chest. Endotracheal tube terminates 5.1 cmabove the sera. Right internal jugular central venous catheter terminatesin the right atrium. There is stable moderate cardiomegaly. No acutepulmonary process is appreciated. The visualized bony thorax is intact.[facility] + Lactic [id number] 04:05:35* Test Item Value Reference Range Interpretation Comme nts PH (test code = 2) 7.41 7.35-7.45 PCO2 (test code = 7433005400) 28 35-45 L PO2 (test code = 0843581227) 115 80-100 H HCO3 (test code = 0287560453) 17 22-26 L BE (test code = 1191114286) -6.7 -3.0-3.0 L THB (test code = 6659684658) 8.7 g/dL 12.0-16.0 L %O2HB (test code = 1212364239) 97.0 % 94.0-99.0 %COHB ART (test code = 6597748906) 1.5 % 0.0-1.5 %METHB ART (test code = 6830483704) 0.3 % 0.4-1.5 L VOL%O2 ART (test code = 5143898354) 12.1 % 15.0-23.0 L NA (test code = 5223902171) 133 mmol/L 135-145 L K+ (test code = 1612491668) 5.1 mmol/L 3.5-5.0 H AC CA IONZ (test code = 1461326475) 4.30 mg/dL 4.50-5.30 L GLUCOSE (test code = 8583092895) 104 mg/dL 70-110 LACTIC ACID (test code = 8324652941) 2.10 mmol/L 0.50-2.20 QUES Lab Interpretation (test cod e = 27607-9) [facility] + Lactic [id number] 01:59:51* Test Item Value Reference Range Interpretation Comme nts PH (test code = 2) 7.42 7.35-7.45 PCO2 (test code = 4504676271) 28 35-45 L PO2 (test code = 2230397712) 155 80-100 H HCO3 (test code = 7718308426) 18 22-26 L BE (test code = 1815745813) -6.2 -3.0-3.0 L THB (test code = 5749086242) 7.1 g/dL 12.0-16.0 LL %O2HB (test code = 6360179403) 97.8 % 94.0-99.0 %COHB ART (test code = 5816828911) 1.5 % 0.0-1.5 %METHB ART (test code = 9370032141) 0.3 % 0.4-1.5 L VOL%O2 ART (test code = 3293131769) 10.1 % 15.0-23.0 L NA (test code = 5898027933) 134 mmol/L 135-145 L K+ (test code = 7896080484) 5.1 mmol/L 3.5-5.0 H AC CA IONZ (test code = 5277899578) 4.20 mg/dL 4.50-5.30 L GLUCOSE (test code = 8093602670) 104 mg/dL 70-110 LACTIC ACID (test code = 9377249027) 3.00 mmol/L 0.50-2.20 H QUES Lab Interpretation (test cod e = 48701-0) Abnormal [facility] with [id number] 23:18:18* Test Item Value Reference Range Interpretation [...] 31.7 g/dL 31.6-35.1 RDW-SD (test code = 53341-9) 57.0 fL 39.0-49.9 H RDW-CV (test code = 788-0) 21.1 % 12.0-15.5 H PLT (test code = 777-3) 692 166-358 H MPV (test code = 30251-2) 9.1 fL 9.5-12.9 L NRBC/100 WBC (test code = 8362581174) 0.5 0.0-10.0 NRBC x10^3 (test code = 4391138181) 0.12 See_Comment [Automated message] The system which generated this result transmitted reference range: 10*3/?L. The reference range was not used to interpret this result as normal/abnormal. GRAN MAT (NEUT) % (test code = 770-8) 84.9 % IMM GRAN % (test code = 3377517624) 2.90 % LYMPH % (test code = 736-9) 8.6 % MONO % (test code = 5905-5) 3.3 % EOS % (test code = 713-8) 0.0 % BASO % (test code = 706-2) 0.3 % GRAN MAT x10^3(ANC) (test code = 6045410038) 19.00 10*3/uL 1.88-7.09 H IMM GRAN x10^3 (test code = 8528255829) 0.65 10*3/uL 0.00-0.06 H LYMPH x10^3 (test [...] result as normal/abnormal. BANDS (test code = 8393698902) MARKED INCREASED A DOHLE BODIES (test code = 7792-5) Present A Lab Interpretation (test code = 58941-0) Abnormal [facility] [place] [place] Metabolic Panel (NA, K, CL, CO2, GLUCOSE, BUN, CREATININE, CA)2023-12-04 22:55:40* Test Item Value Reference Range Interpretation Comme nts NA (test code = 2895812041) 134 mmol/L 135-145 L K (test code = 4276676355) 5.1 mmol/L 3.5-5.0 H CL (test code = 7035266876) 106 mmol/L 98-108 CO2 TOTAL (test code = 8779301040) 16 mmol/L 23-31 L AGAP (test code = 3082166186) 12 2-16 BUN (test code = 2494810349) 34 mg/dL 7-23 H GLUCOSE (test code = 4141772749) 102 mg/dL 70-110 CREATININE (test code = 2160-0) 2.15 mg/dL 0.50-1.04 H CALCIUM (test code = 0812364828) 8.0 mg/dL 8.6-10.6 L eGFR (test code = 72463-1) 23.5 mL/min/1.73m2 CKD-EPI eGFR (2020). Assuming creatinine has been stable day-to-day for at least three months, the eGFR indicates Category G4 (15 - 29 mL/min/1.73 m2) Lab Interpretation (test code = 30858-1) [facility]normal [facility] ([facility]E) [id number] 21:56:12* Test Item Value Reference Range Interpretation Comme nts Height (test code = 8706504639) 68 in Weight (test code = 2868593462) 375 lbs Systolic BP (test code = 5791800635) 195 mmHg Diastolic BP (test code = 7774718433) 165 mmHg Heart Rate (test code = 3208731049) 109 bpm BSA (test code = 3564827956) 2.7 m2 LVIDD (test code = 2938594690) 4.90 cm Left Ventricular End Diastolic Volume by Teichholz Method (test code = 4294859) 115.2 mL IVS (test code = 9221965223) 0.92 cm Interventricular Septum Diastolic Thickness by 2D (test code = 8745371) 0.92 cm LVPWD (test code = 3114379637) 1.02 cm PW (test code = 5482567232) 1.02 cm 0.6-1.1 EF(Teich) (test code = 6615926883) 60.40 % LVIDS (test code = 0979030979) 3.30 cm Left Ventricular End Systolic Volume by Teichholz Method (test code = 1075174) 45.7 mL FS (test code = 9190406081) 32 % EF - 2D (test code = 87184718) 60.40 % A4C EF (test code = 0711568369) 58.60 % EF(sp4-el) (test code = 1043730356) 55.90 % SV(MOD-sp4) (test code = 8349021787) 65.80 mL SV(sp4-el) (test code = 0356236261) 64.20 mL LV Diastolic Volume (BP) (test code = 2665535926) 114.6 mL A2C EF (test code = 1735123432) 72.10 % EF(MOD-bp) (test code = 8829738999) 65.70 % EF(sp2-el) (test code = 9878352785) 74.20 % LV Systolic Volume (BP) (test code = 6303475354) 39.3 mL SV(MOD-bp) (test code = 1888071411) 75.30 mL SV(MOD-sp2) (test code = 8662764788) 78.80 mL EF (test code = 9273730660) 66 Left Ventricular Stroke Volume by 2-D Biplane-MOD (test code = 9326883) 75.3 mL LV Diastolic Volume Index (BP) (test code = 5056295043) 42.4 mL/m2 LV Systolic Volume Index (BP) (test code = 0617976040) 14.6 mL/m2 Radiology Study observation (narrative) (test code = 13924-2) JESSICA (test code = JESSICA) ?Left?Ventricle: Not [...] are hypokinetic: apex.All other segments are normal. [facility] + Lactic [id number] 20:05:31* Test Item Value Reference Range Interpretation Comme nts PH (test code = 2) 7.40 7.35-7.45 PCO2 (test code = 0518004285) 27 35-45 L PO2 (test code = 1921624131) 149 80-100 H HCO3 (test code = 2655375537) 16 22-26 L BE (test code = 9880782817) -7.6 -3.0-3.0 L THB (test code = 5677487604) 10.5 g/dL 12.0-16.0 L %O2HB (test code = 4351448186) 98.1 % 94.0-99.0 %COHB ART (test code = 0840674968) 1.1 % 0.0-1.5 %METHB ART (test code = 6626142449) 0.3 % 0.4-1.5 L VOL%O2 ART (test code = 5487358008) 14.8 % 15.0-23.0 L NA (test code = 2407643919) 134 mmol/L 135-145 L K+ (test code = 2127805455) 5.1 mmol/L 3.5-5.0 H AC CA IONZ (test code = 5607988040) 4.30 mg/dL 4.50-5.30 L GLUCOSE (test code = 4846252438) 97 mg/dL 70-110 LACTIC ACID (test code = 2842841414) 4.39 mmol/L 0.50-2.20 H QUES Lab Interpretation (test cod e = 30028-4) Abnormal [facility] HospitalGlycosylated Hemoglobin (A1C)2023-12-04 18:13:56* Test Item Value Reference Range Interpretation Comme nts HGB A1C (test code = 4548-4) 5.4 % 4.0-5.7 JESSICA (test code = JESSICA) Reference RangesNormal: <5.7%Prediabetes: 5.7 - 6.4%Diabetes: > 6.5% Lab Interpretation (test code = 43545-2) Normal [facility] Hospital[facility]cosylated Hemoglobin (A1C)2023-12-04 18:13:56* Test Item Value Reference Range Interpretation Comme nts HGB A1C (test code = 4548-4) 5.4 % 4.0-5.7 JESSICA (test code = JESSICA) Reference RangesNormal: <5.7%Prediabetes: 5.7 - 6.4%Diabetes: > 6.5% Lab Interpretation (test code = 01096-0) Normal [facility] [id number] 15:42:50EXAM: XR KUB, XR KUB, XR KUB HISTORY: 73 years-old Female; NGT . TECHNIQUE: Frontal view of the abdo men and pelvis COMPARISON: CT abdomen pelvis dated 12/03/2023 [id number] dated 12/04[facility]2023 [facility] 2[facility] [id number] 15:42:50EXAM: XR KUB, XR KUB, XR KUB HISTORY: 73 years-old Female; NGT . TECHNIQUE: Frontal view of the abdomen and pelvis COMPARISON: CT abdomen pelvis dated 12/03/2023 [id number] dated 12/04/2023 at 2:24[facility] CHEST 1 VW 2023-12-04 13:59:41EXAM: XR CHEST 1 VW COMPARISON: 12/02/2023 HISTORY: intub FINDINGS: Lines/Tubes: Interval placement of endotracheal tube which projectsapproximately 4 cm above the sera. An enteric tube coursessubdiap hragmatically with tip excluded from rlyyb-ss-rghi. Lungs: No focal consolidation or pneumothorax. Decrease in previously seenprominent interstitial markings. Possible trace right pleural effusion. Heart/Mediastinum: The cardiac silhouette appears borderline enlarged. Bones and soft tissues: No acute findings are detected.[facility] 1 [id number] 13:59:41EXAM: XR CHEST 1 VW COMPARISON: 12/02/2023 HISTORY: intub FINDINGS: Lines/Tubes: Interval placement of endotracheal tube which projectsapproximately 4 cm above the sera. An enteric tube coursessubdiaphragmatically with tip excluded from swqja-ur-toxx. Lungs: No focal consolidation or pneumothorax. D ecrease in previously seenprominent interstitial markings. Possible trace right pleural effusion. Heart/Mediastinum: The cardiac silhouette appears borderline enlarged. Bones and soft tissues: No acute findings are detected.[facility] 20 + Lactic [id number] 10:31:19* Test Item Value Reference Range Interpretation Comme nts PH (test code = 2) 7.33 7.35-7.45 L PCO2 (test code = 0169452380) 30 35-45 L PO2 (test code = 3349128652) 178 80-100 H HCO3 (test code = 4763561739) 16 22-26 L BE (test code = 3722558841) -8.8 -3.0-3.0 L THB (test code = 0747487087) 11.8 g/dL 12.0-16.0 L %O2HB (test code = 5366688891) 98.1 % 94.0-99.0 %COHB ART (test code = 8038622382) 1.0 % 0.0-1.5 %METHB ART (test code = 2119773086) 0.3 % 0.4-1.5 L VOL%O2 ART (test code = 4909403256) 16.6 % 15.0-23.0 NA (test code = 8802087212) 134 mmol/L 135-145 L K+ (test code = 9447361052) 4.8 mmol/L 3.5-5.0 AC CA IONZ (test code = 0189595056) 4.50 mg/dL 4.50-5.30 GLUCOSE (test code = 7686794882) 111 mg/dL 70-110 H LACTIC ACID (test code = 1499446315) 4.15 mmol/L 0.50-2.20 H Lab Interpretation (test cod e = 59755-5) Abnormal [facility] 20 + Lactic [id number] 10:31:19* Test Item Value Reference Range Interpretation Comme nts PH (test code = 2) 7.33 7.35-7.45 L PCO2 (test code = 0439384987) 30 35-45 L PO2 (test code = 9970631391) 178 80-100 H HCO3 (test code = 0076632285) 16 22-26 L BE (test code = 9216049353) -8.8 -3.0-3.0 L THB (test code = 8221214825) 11.8 g/dL 12.0-16.0 L %O2HB (test code = 2118014338) 98.1 % 94.0-99.0 %COHB ART (test code = 4683652848) 1.0 % 0.0-1.5 %METHB ART (test code = 7301072975) 0.3 % 0.4-1.5 L VOL%O2 ART (test code = 8783627088) 16.6 % 15.0-23.0 NA (test code = 6434221602) 134 mmol/L 135-145 L K+ (test code = 8549083780) 4.8 mmol/L 3.5-5.0 AC CA IONZ (test code = 8223160145) 4.50 mg/dL 4.50-5.30 GLUCOSE (test code = 3837775897) 111 mg/dL 70-110 H LACTIC ACID (test code = 1553387705) 4.15 mmol/L 0.50-2.20 H Lab Interpretation (test cod e = 88974-2) Abnormal [facility] HospitalCbc with [id number] 09:09:53* Test Item Value Reference Range Interpretation [...] g/dL 31.6-35.1 L RDW-SD (test code = 27833-4) 58.1 fL 39.0-49.9 H RDW-CV (test code = 788-0) 21.5 % 12.0-15.5 H PLT (test code = 777-3) 829 166-358 H MPV (test code = 01041-0) 8.8 fL 9.5-12.9 L NRBC/100 WBC (test code = 3673816081) 1.1 0.0-10.0 NRBC x10^3 (test code = 2941853650) 0.14 See_Comment [Automated message] The system which generated this result transmitted reference range: 10*3/?L. The reference range was not used to interpret this result as normal/abnormal. GRAN MAT (NEUT) % (test code = 770-8) 82.1 % IMM GRAN % (test code = 0465645964) 1.10 % LYMPH % (test code = 736-9) 13.0 % MONO % (test code = 5905-5) 3.2 % EOS % (test code = 713-8) 0.1 % BASO % (test code = 706-2) 0.5 % GRAN MAT x10^3(ANC) (test code = 9229835095) 10.52 10*3/uL 1.88-7.09 H IMM GRAN x10^3 (test code = 0402275150) 0.14 10*3/uL 0.00-0.06 H LYMPH x10^3 (test [...] result as normal/abnormal. BANDS (test code = 5206197022) MARKED INCREASED A DOHLE BODIES (test code = 7792-5) Present A Lab Interpretation (test code = 75037-2) Abnormal [facility] with [id number] 09:09:53* Test Item Value Reference Range Interpretation [...] g/dL 31.6-35.1 L RDW-SD (test code = 40253-1) 58.1 fL 39.0-49.9 H RDW-CV (test code = 788-0) 21.5 % 12.0-15.5 H PLT (test code = 777-3) 829 166-358 H MPV (test code = 97792-5) 8.8 fL 9.5-12.9 L NRBC/100 WBC (test code = 3784675307) 1.1 0.0-10.0 NRBC x10^3 (test code = 8951934566) 0.14 See_Comment [Automated message] The system which generated this result transmitted reference range: 10*3/?L. The reference range was not used to interpret this result as normal/abnormal. GRAN MAT (NEUT) % (test code = 770-8) 82.1 % IMM GRAN % (test code = 6285121939) 1.10 % LYMPH % (test code = 736-9) 13.0 % MONO % (test code = 5905-5) 3.2 % EOS % (test code = 713-8) 0.1 % BASO % (test code = 706-2) 0.5 % GRAN MAT x10^3(ANC) (test code = 1336427410) 10.52 10*3/uL 1.88-7.09 H IMM GRAN x10^3 (test code = 1064545950) 0.14 10*3/uL 0.00-0.06 H LYMPH x10^3 (test [...] result as normal/abnormal. BANDS (test code = 8939303152) MARKED INCREASED A DOHLE BODIES (test code = 7792-5) Present A Lab Interpretation (test code = 93412-1) Abnormal [facility] HospitalPhosphorus2024-09-09 08:50:45* Test Item Value Reference Range Interpretation Comme nts PHOSPHORUS (test code = 5909533990) 5.9 mg/dL 2.5-5.0 H Lab Interpretation (test cod e = 33556-0) Abnormal [facility] HospitalMagnesium2024-09-09 08:50:45* Test Item Value Reference Range Interpretation Comme nts MAGNESIUM (test code = 9846173880) 2.1 mg/dL 1.7-2.4 Lab Interpretation (test cod e = 19839-2) Normal [facility] [place], [place] Metabolic Panel (NA, K, CL, CO2, GLUCOSE, BUN, CREATININE, CA)2023-12-04 08:50:45* Test Item Value Reference Range Interpretation Comme nts NA (test code = 1379581062) 135 mmol/L 135-145 K (test code = 5273351445) 5.0 mmol/L 3.5-5.0 CL (test code = 2745754183) 104 mmol/L 98-108 CO2 TOTAL (test code = 2927668670) 16 mmol/L 23-31 L AGAP (test code = 7955701258) 15 2-16 BUN (test code = 7729030501) 29 mg/dL 7-23 H GLUCOSE (test code = 5250718227) 126 mg/dL 70-110 H CREATININE (test code = 2160-0) 1.51 mg/dL 0.50-1.04 H CALCIUM (test code = 3139898536) 8.6 mg/dL 8.6-10.6 eGFR (test code = 56087-3) 35.9 mL/min/1.73m2 CKD-EPI eGFR (2020). Assuming creatinine has been stable day-to-day for at least three months, the eGFR indicates Category G3b (30 - 44 mL/min/1.73 m2) Lab Interpretation (test code = 46320-4) Abnormal [facility] [place], [place] Metabolic Panel (NA, K, CL, CO2, GLUCOSE, BUN, CREATININE, CA)2023-12-04 08:50:45* Test Item Value Reference Range Interpretation Comme nts NA (test code = 5472977782) 135 mmol/L 135-145 K (test code = 5239396297) 5.0 mmol/L 3.5-5.0 CL (test code = 7278482692) 104 mmol/L 98-108 CO2 TOTAL (test code = 9944184709) 16 mmol/L 23-31 L AGAP (test code = 4921538747) 15 2-16 BUN (test code = 4229059108) 29 mg/dL 7-23 H GLUCOSE (test code = 6872687990) 126 mg/dL 70-110 H CREATININE (test code = 2160-0) 1.51 mg/dL 0.50-1.04 H CALCIUM (test code = 4660879769) 8.6 mg/dL 8.6-10.6 eGFR (test code = 01772-4) 35.9 mL/min/1.73m2 CKD-EPI eGFR (2020). Assuming creatinine has been stable day-to-day for at least three months, the eGFR indicates Category G3b (30 - 44 mL/min/1.73 m2) Lab Interpretation (test code = 46945-4) Abnormal [facility]esium2024-09-09 08:50:45* Test Item Value Reference Range Interpretation Comme nts MAGNESIUM (test code = 2890026561) 2.1 mg/dL 1.7-2.4 Lab Interpretation (test cod e = 72522-1) Normal [facility]2024-09-09 08:50:45* Test Item Value Reference Range Interpretation Comme nts PHOSPHORUS (test code = 5915491594) 5.9 mg/dL 2.5-5.0 H Lab Interpretation (test cod e = 74183-6) Abnormal [facility] HospitalFibrinogen2024-09-09 08:48:34* Test Item Value Reference Range Interpretation Comme nts Fibrinogen (test code = 1145680979) 879 mg/dL 167-453 H Lab Interpretation (test cod e = 52891-8) Abnormal [facility] HospitalFibrinogen2024-09-09 08:48:34* Test Item Value Reference Range Interpretation Comme nts Fibrinogen (test code = 9870708448) 879 mg/dL 167-453 H Lab Interpretation (test cod e = 39948-3) Abnormal [facility] HospitalProthrombin Time / [id number] 08:48:09* Test Item Value Reference Range Interpretation Comme nts PROTIME PATIENT (test code = 5964-2) 21.6 10.1-12.6 H INR (test code = 6301-6) 2.0 Normal INR <1.1; Warfarin Therapeutic range 2.0 to 3.0 or 2.5 to 3.5, depending upon the indications. Lab Interpretation (test code = 42353-1) Abnormal [facility] HospitalAct[facility]rm[facility] [id number] 08:48:09* Test Item Value Reference Range Interpretation Comme [facility] APTT Patient (test code = 3173-2) 32 26-36 Lab Interpretation (test cod e = 33997-9) Normal [facility]Act[facility] [id number] 08:48:09* Test Item Value Reference Range Interpretation Comme [facility] APTT Patient (test code = 3173-2) 32 26-36 Lab Interpretation (test cod e = 94909-1) Normal [facility] HospitalProth[facility] Time / [id number] 08:48:09* Test Item Value Reference Range Interpretation Comme [facility] PROTIME PATIENT (test code = 5964-2) 21.6 10.1-12.6 H INR (test code = 6301-6) 2.0 Normal INR <1.1; Warfarin Therapeutic range 2.0 to 3.0 or 2.5 to 3.5, depending upon the indications. Lab Interpretation (test code = 88723-4) [facility]normal [facility] HospitalAC [facility] 20 + Lactic [id number] 08:18:49* Test Item Value Reference Range Interpretation Comme [facility] PH (test code = 2) 7.27 7.35-7.45 L PCO2 (test code = 4532342159) 37 35-45 PO2 (test code = 2989395599) 312 80-100 H HCO3 (test code = 8360991414) 17 22-26 L BE (test code = 7899655161) -9.5 -3.0-3.0 L THB (test code = 8384331319) 11.8 g/dL 12.0-16.0 L %O2HB (test code = 6453359369) 98.7 % 94.0-99.0 %COHB ART (test code = 5224381424) 1.0 % 0.0-1.5 %METHB ART (test code = 1435353823) 0.3 % 0.4-1.5 L VOL%O2 ART (test code = 0008838100) 17.2 % 15.0-23.0 NA (test code = 4172151656) 134 mmol/L 135-145 L K+ (test code = 3578392603) 5.0 mmol/L 3.5-5.0 AC CA IONZ (test code = 8154493340) 4.60 mg/dL 4.50-5.30 GLUCOSE (test code = 0334955875) 125 mg/dL 70-110 H LACTIC ACID (test code = 8762985209) 4.75 mmol/L 0.50-2.20 H Lab Interpretation (test cod e = 17023-8) [facility]normal [facility] 20 + Lactic [id number] 08:18:49* Test Item Value Reference Range Interpretation Comme nts PH (test code = 2) 7.27 7.35-7.45 L PCO2 (test code = 4681526571) 37 35-45 PO2 (test code = 4910127331) 312 80-100 H HCO3 (test code = 4639173616) 17 22-26 L BE (test code = 9978030315) -9.5 -3.0-3.0 L THB (test code = 6039880281) 11.8 g/dL 12.0-16.0 L %O2HB (test code = 5895570392) 98.7 % 94.0-99.0 %COHB ART (test code = 5511866920) 1.0 % 0.0-1.5 %METHB ART (test code = 0162056409) 0.3 % 0.4-1.5 L VOL%O2 ART (test code = 8873624824) 17.2 % 15.0-23.0 NA (test code = 2839946357) 134 mmol/L 135-145 L K+ (test code = 8313192044) 5.0 mmol/L 3.5-5.0 AC CA IONZ (test code = 5178279535) 4.60 mg/dL 4.50-5.30 GLUCOSE (test code = 6469677739) 125 mg/dL 70-110 H LACTIC ACID (test code = 0035994555) 4.75 mmol/L 0.50-2.20 H Lab Interpretation (test cod e = 00898-5) Abnormal [facility] P[facility] RBC (in units), 2 Units 2023-12-04 02:36:27* Test Item Value Reference Range Interpretation Comme nts Cross Match Result (test code = 4409) Compatible ISBT Blood Type Code (test code = 220654) 6200 Unit Blood Type (test code = 4410) A Pos Unit Number (test code = 4411) [id number] Blood Expiration Date & Time (test code = 778007) 150697752628 Status Information (test code = 4412) Issued Product Identification (test code = 4413) Red Blood Cells Product Code (test code = 4414) [id number] Performed at [facility] Blood [address] Free: [phone] No. [id number] [facility] Packed RBC (in units), 2 Units 2023-12-04 02:36:27* Test Item Value Reference Range Interpretation Comme nts Cross Match Result (test code = 4409) Compatible ISBT Blood Type Code (test code = 111258) 6200 Unit Blood Type (test code = 4410) A Pos Unit Number (test code = 4411) [id number] Blood Expiration Date & Time (test code = 007714) 457795759414 Status Information (test code = 4412) Issued Product Identification (test code = 4413) Red Blood Cells Product Code (test code = 4414) [id number] Performed at [address] Free: [phone] No. [id number] [facility] HospitalArterial Isli5211-99-60 01:12:00WBashir beavers MD ? ? 12/03/2023 ?8:44 PM Arterial [...] wires accounted forComments: ? Tegaderm CHG applied. [facility] HospitalIntubation2024-09-09 00:57:00WBashir bevaers MD ? ? 12/03/2023 ?8:42 PMIntubationDate/Time: 12/03/2023 7:57 PMUrgency: elective Airway not difficult General Information and Staff Patient location during procedure: ORPerformed: resident/HUMAN RESOURCES DEPARTMENT SUPERVISOR Performed by: Stan Izquierdo MDAuthorized by: Kentrell [...] ?Lips, gums, teeth, and nose unchanged vs. preop.[facility] HospitalCT ABDOMEN PELVIS W [id number] 23:18:25EXAM: CT ABDOMEN AND PELVIS WITH CONTRAST [...] the spine, sacroiliac joints and hips is present.[facility] W CONTRAST 2023-12-03 23:18:25EXAM: CT [...] the spine, sacroiliac joints and hips is present.[facility] ABDOMEN PELVIS W CONTRAST 2023-12-03 [...] the spine, sacroiliac joints and hips is present.[facility] HospitalCT [facility]BD[facility]EN PELVIS W NDEWJFWU4039-10-14 23:14:34EXAM: CT ABDOMEN AND PELVIS WITH CONTRAST [...] the spine, sacroiliac joints and hips is present.[facility] HospitalAC Panel 21 + Lactic Nfoh5269-86-90 21:02:46* Test Item Value Reference Range Interpretation Comme nts PH (test code = 8308294515) 7.44 7.32-7.42 H PCO2 GE (test code = 3198596115) 31 41-51 L PO2 GE (test code = 7187400138) 33 25-40 HCO3 GE (test code = 8667143602) 21 24-28 L AC VBE(BEAKER) (test code = 5792490726) -3.0 mEq/L THB GE (test code = 0986703665) 9.3 g/dL 12.0-16.0 L %O2HB GE (test code = 6549972804) 63.2 % 52.0-63.0 H %COHB GE (test code = 5381143136) 1.6 % 0.0-1.5 H %METHB GE (test code = 2531631267) 0.3 % 0.4-1.5 L VOL%O2 GE (test code = 8644133433) 8.3 % 6.0-12.0 NA (test code = 9675185259) 134 mmol/L 135-145 L K+ (test code = 1503773827) 5.4 mmol/L 3.5-5.0 H AC CA IONZ (test code = 6988262361) 4.50 mg/dL 4.50-5.30 GLUCOSE (test code = 0282167731) 126 mg/dL 70-110 H LACTIC ACID (test code = 8540698974) 3.03 mmol/L 0.50-2.20 H Lab Interpretation (test cod e = 83856-3) Abnormal [facility] HospitalAC Panel 21 + Lactic Xbkq6951-30-04 21:02:46* Test Item Value Reference Range Interpretation Comme nts PH (test code = 5282370328) 7.44 7.32-7.42 H PCO2 GE (test code = 2539712219) 31 41-51 L PO2 GE (test code = 6649459038) 33 25-40 HCO3 GE (test code = 6401150747) 21 24-28 L AC VBE(BEAKER) (test code = 7983911204) -3.0 mEq/L THB GE (test code = 3259402354) 9.3 g/dL 12.0-16.0 L %O2HB GE (test code = 5128493367) 63.2 % 52.0-63.0 H %COHB GE (test code = 1592809971) 1.6 % 0.0-1.5 H %METHB GE (test code = 2017103627) 0.3 % 0.4-1.5 L VOL%O2 GE (test code = 7032966909) 8.3 % 6.0-12.0 NA (test code = 0309133664) 134 mmol/L 135-145 L K+ (test code = 3484324590) 5.4 mmol/L 3.5-5.0 H AC CA IONZ (test code = 3357949681) 4.50 mg/dL 4.50-5.30 GLUCOSE (test code = 6927068063) 126 mg/dL 70-110 H LACTIC ACID (test code = 2077650974) 3.03 mmol/L 0.50-2.20 H Lab Interpretation (test cod e = 68673-2) Abnormal [facility] HospitalCbc with Pwkp9391-19-63 20:26:23* Test Item Value Reference Range Interpretation [...] 31.6 g/dL 31.6-35.1 RDW-SD (test code = 90867-1) 58.9 fL 39.0-49.9 H RDW-CV (test code = 788-0) 22.5 % 12.0-15.5 H PLT (test code = 777-3) 758 166-358 H MPV (test code = 39578-5) 9.1 fL 9.5-12.9 L NRBC/100 WBC (test code = 9550902090) 0.2 0.0-10.0 NRBC x10^3 (test code = 9493759603) 0.04 See_Comment [Automated message] The system which generated this result transmitted reference range: 10*3/?L. The reference range was not used to interpret this result as normal/abnormal. GRAN MAT (NEUT) % (test code = 770-8) 80.5 % IMM GRAN % (test code = 7293389100) 1.30 % LYMPH % (test code = 736-9) 14.5 % MONO % (test code = 5905-5) 3.2 % EOS % (test code = 713-8) 0.3 % BASO % (test code = 706-2) 0.2 % GRAN MAT x10^3(ANC) (test code = 8875096551) 14.69 10*3/uL 1.88-7.09 H IMM GRAN x10^3 (test code = 3675690874) 0.23 10*3/uL 0.00-0.06 H LYMPH x10^3 (test [...] result as normal/abnormal. BANDS (test code = 0745734581) MARKED INCREASED A DOHLE BODIES (test code = 7792-5) Present A Lab Interpretation (test code = 24048-8) Abnormal [facility] with Mydk2361-83-74 20:26:23* Test Item Value Reference Range Interpretation [...] 31.6 g/dL 31.6-35.1 RDW-SD (test code = 49584-4) 58.9 fL 39.0-49.9 H RDW-CV (test code = 788-0) 22.5 % 12.0-15.5 H PLT (test code = 777-3) 758 166-358 H MPV (test code = 95649-1) 9.1 fL 9.5-12.9 L NRBC/100 WBC (test code = 6953835881) 0.2 0.0-10.0 NRBC x10^3 (test code = 7128773469) 0.04 See_Comment [Automated message] The system which generated this result transmitted reference range: 10*3/?L. The reference range was not used to interpret this result as normal/abnormal. GRAN MAT (NEUT) % (test code = 770-8) 80.5 % IMM GRAN % (test code = 3688503635) 1.30 % LYMPH % (test code = 736-9) 14.5 % MONO % (test code = 5905-5) 3.2 % EOS % (test code = 713-8) 0.3 % BASO % (test code = 706-2) 0.2 % GRAN MAT x10^3(ANC) (test code = 8403367704) 14.69 10*3/uL 1.88-7.09 H IMM GRAN x10^3 (test code = 1816405648) 0.23 10*3/uL 0.00-0.06 H LYMPH x10^3 (test [...] result as normal/abnormal. BANDS (test code = 8827672174) MARKED INCREASED A DOHLE BODIES (test code = 7792-5) Present A Lab Interpretation (test code = 46564-6) Abnormal [facility] HospitalaPTT2024-09-08 20:09:14* Test Item Value Reference Range Interpretation Comme nts APTT Patient (test code = 3173-2) 30 26-36 Lab Interpretation (test cod e = 43338-3) Normal [facility] HospitalProthrombin Time / [id number] 20:09:14* Test Item Value Reference Range Interpretation Comme nts PROTIME PATIENT (test code = 5964-2) 23.6 10.1-12.6 H INR (test code = 6301-6) 2.2 Normal INR <1.1; Warfarin Therapeutic range 2.0 to 3.0 or 2.5 to 3.5, depending upon the indications. Lab Interpretation (test code = 86098-4) Abnormal [facility] HospitalaPTT2024-09-08 20:09:14* Test Item Value Reference Range Interpretation Comme [facility] APTT Patient (test code = 3173-2) 30 26-36 Lab Interpretation (test cod e = 01698-3) Normal [facility] HospitalProthrombin Time / [id number] 20:09:14* Test Item Value Reference Range Interpretation Comme [facility] PROTIME PATIENT (test code = 5964-2) 23.6 10.1-12.6 H INR (test code = 6301-6) 2.2 Normal INR <1.1; Warfarin Therapeutic range 2.0 to 3.0 or 2.5 to 3.5, depending upon the indications. Lab Interpretation (test code = 36321-1) Abnormal [facility] HospitalHepatic Function Panel (73025) (ALB,T.PRO,BILI T,BU/BC,ALT,AST,ALK PHOS)2023-12-03 20:08:54* Test Item Value Reference Range Interpretation Comme [facility] TOTAL BILI (test code = 2486585517) 0.9 mg/dL 0.1-1.1 BILI UNCON (test code = 5616488480) 0.1 mg/dL 0.1-1.1 BILI CONJ (test code = 4091190564) 0.0 mg/dL 0.0-0.3 T PROTEIN (test code = 2982837742) 7.4 g/dL 6.3-8.2 ALBUMIN (test code = 7671306759) 3.1 g/dL 3.5-5.0 L ALK PHOS (test code = 5214227384) 141 U/L 34-122 H ALTv (test code = 1742-6) 14 U/L 5-35 AST(SGOT) (test code = 4271883999) 49 U/L 13-40 H Lab Interpretation (test cod e = 77813-8) Abnormal [facility] HospitalBasic Metabolic Panel (NA, K, CL, CO2, GLUCOSE, BUN, CREATININE, CA)2023-12-03 20:08:54* Test Item Value Reference Range Interpretation Comme [facility] NA (test code = 1321197072) 134 mmol/L 135-145 L K (test code = 0821520359) 4.9 mmol/L 3.5-5.0 Slight hemolysis CL (test code = 8765013264) 103 mmol/L 98-108 CO2 TOTAL (test code = 6174428703) 21 mmol/L 23-31 L AGAP (test code = 1589896135) 10 2-16 BUN (test code = 9173426425) 28 mg/dL 7-23 H Slight hemolysis GLUCOSE (test code = 3313175863) 137 mg/dL 70-110 H CREATININE (test code = 2160-0) 0.96 mg/dL 0.50-1.04 CALCIUM (test code = 0655620054) 9.1 mg/dL 8.6-10.6 eGFR (test code = 23186-3) 61.8 mL/min/1.73m2 CKD-EPI eGFR (2020). Assuming creatinine has been stable day-to-day for at least three months, the eGFR indicates Category G2 (60 - 89 mL/min/1.73 m2) Lab Interpretation (test code = 20843-6) Abnormal [facility] HospitalHepatic Function Panel (08668) (ALB,T.PRO,BILI T,BU/BC,ALT,AST,ALK PHOS)2023-12-03 20:08:54* Test Item Value Reference Range Interpretation Comme nts TOTAL BILI (test code = 7226443063) 0.9 mg/dL 0.1-1.1 BILI UNCON (test code = 7353258710) 0.1 mg/dL 0.1-1.1 BILI CONJ (test code = 4411555978) 0.0 mg/dL 0.0-0.3 T PROTEIN (test code = 6550490436) 7.4 g/dL 6.3-8.2 ALBUMIN (test code = 2163445662) 3.1 g/dL 3.5-5.0 L ALK PHOS (test code = 8617690680) 141 U/L 34-122 H ALTv (test code = 1742-6) 14 U/L 5-35 AST(SGOT) (test code = 8833781200) 49 U/L 13-40 H Lab Interpretation (test cod e = 44413-2) Abnormal [facility] HospitalBasi Metabolic Panel (NA, K, CL, CO2, GLUCOSE, BUN, CREATININE, CA)2023-12-03 20:08:54* Test Item Value Reference Range Interpretation Comme nts NA (test code = 0775361961) 134 mmol/L 135-145 L K (test code = 4650211198) 4.9 mmol/L 3.5-5.0 Slight hemolysis CL (test code = 9441798606) 103 mmol/L 98-108 CO2 TOTAL (test code = 2598281117) 21 mmol/L 23-31 L AGAP (test code = 4490357173) 10 2-16 BUN (test code = 3591550067) 28 mg/dL 7-23 H Slight hemolysis GLUCOSE (test code = 1271495539) 137 mg/dL 70-110 H CREATININE (test code = 2160-0) 0.96 mg/dL 0.50-1.04 CALCIUM (test code = 2642497913) 9.1 mg/dL 8.6-10.6 eGFR (test code = 69210-2) 61.8 mL/min/1.73m2 CKD-EPI eGFR (2020). Assuming creatinine has been stable day-to-day for at least three months, the eGFR indicates Category G2 (60 - 89 mL/min/1.73 m2) Lab Interpretation (test code = 36491-2) Abnormal [facility] HospitalFibrinogen2024-09-08 16:51:45* Test Item Value Reference Range Interpretation Comme nts Fibrinogen (test code = 1940296254) 949 mg/dL 167-453 H Lab Interpretation (test cod e = 56371-2) Abnormal [facility] HospitalFibrinogen2024-09-08 16:51:45* Test Item Value Reference Range Interpretation Comme nts Fibrinogen (test code = 4150654405) 949 mg/dL 167-453 H Lab Interpretation (test cod e = 70625-0) Abnormal [facility] HospitalActivated Partial Thrmplas Slv2044-92-23 16:49:04* Test Item Value Reference Range Interpretation Comme nts APTT Patient (test code = 3173-2) 30 26-36 Lab Interpretation (test cod e = 62225-9) Normal [facility] HospitalProthrombin Time / [id number] 16:49:04* Test Item Value Reference Range Interpretation Comme nts PROTIME PATIENT (test code = 5964-2) 23.7 10.1-12.6 H INR (test code = 6301-6) 2.2 Normal INR <1.1; Warfarin Therapeutic range 2.0 to 3.0 or 2.5 to 3.5, depending upon the indications. Lab Interpretation (test code = 57340-4) Abnormal [facility] HospitalActivated Partial Thrmplas Brx1485-65-02 16:49:04* Test Item Value Reference Range Interpretation Comme nts APTT Patient (test code = 3173-2) 30 26-36 Lab Interpretation (test cod e = 18851-7) Normal [facility] HospitalProthrombin Time / [id number] 16:49:04* Test Item Value Reference Range Interpretation Comme nts PROTIME PATIENT (test code = 5964-2) 23.7 10.1-12.6 H INR (test code = 6301-6) 2.2 Normal INR <1.1; Warfarin Therapeutic range 2.0 to 3.0 or 2.5 to 3.5, depending upon the indications. Lab Interpretation (test code = 70748-3) Abnormal [facility] HospitalType and Screen - ONCE ILOS2258-78-17 12:41:00 * Test Item Value Reference Range Interpretation Comme nts ABO & RH (test code = 20) A POSITIVE IAT (test code = 1185) Negative [facility] HospitalType and Screen - ONCE JYBK5247-86-26 12:41:00 * Test Item Value Reference Range Interpretation Comme nts ABO & RH (test code = 20) A POSITIVE IAT (test code = 1185) Negative [facility] HospitalLactic Acid Whole Fitye3003-06-85 08:18:44* Test Item Value Reference Range Interpretation Comme nts LACTIC ACID (test code = 5362997281) 1.53 mmol/L 0.50-2.20 Lab Interpretation (test cod e = 40158-0) Normal [facility] HospitalLactic Acid Whole Ofbep6641-23-47 08:18:44* Test Item Value Reference Range Interpretation Comme nts LACTIC ACID (test code = 8975845187) 1.53 mmol/L 0.50-2.20 Lab Interpretation (test cod e = 05334-3) Normal [facility] HospitalTransthoracic echo (TTE) Sehvtsu3306-38-07 18:29:05* Test Item Value Reference Range Interpretation Comme nts Height (test code = 6311008681) 67 in Weight (test code = 6429253527) 379 lbs Systolic BP (test code = 8730498885) 160 mmHg Diastolic BP (test code = 1677649180) 66 mmHg Heart Rate (test code = 9119405991) 82 bpm LVOT stroke volume (test code = 7056224630) 58.40 cm3 EF(Teich) (test code = 3311533505) 69.80 % LVIDD (test code = 0059197300) 4.10 cm LVIDS (test code = 9632158568) 2.50 cm Left Ventricular End Systolic Volume by Teichholz Method (test code = 3797895) 23.0 mL Left Ventricular End Diastolic Volume by Teichholz Method (test code = 6743931) 76.0 mL IVS (test code = 7639523356) 1.20 cm LVPWD (test code = 2317321091) 1.17 cm LVOT diameter (test code = 0442105698) 1.91 cm LVOT area (test code = 9908150259) 2.90 cm2 FS (test code = 5170377339) 39 % MV Peak E Chapo (test code = 1272801873) 125.1 cm/s E wave decelartion time (test code = 1751097604) 0.23 s LA Volume Index (BP) (test code = 4658251599) 34.4 mL/m2 LA volume (BP) (test code = 6658055116) 91.4 mL LVOT peak chapo (test code = 4191917792) 123.3 cm/s LVOT mn grad (test code = 0834010725) 3.0 mmHg BSA (test code = 0417303493) 2.7 m2 LA size (test code = 3304553156) 5.1 cm LAV(MOD-sp2) (test code = 5350264940) 90.40 mL LAV(MOD-sp4) (test code = 7596580176) 88.80 mL Tapse (test code = 4582448274) 1.13 cm Ao peak chapo (test code = 8520062909) 157.5 cm/s AV LVOT peak gradient (test code = 7593783847) 6.1 mmHg LVOT peak VTI (test code = 8412675878) 20.5 cm AV area peak chapo (test code = 3465596491) 2.2 cm2 LV V1 mean (test code = 6762342218) 80.90 cm/s Ao max PG (test code = 1140116993) 9.90 mm[Hg] MV Prop V (test code = 1850192988) 62.20 cm/s TR Peak Chapo (test code = 5053908388) 287.8 cm/s Triscuspid Valve Regurgitation Peak Gradient (test code = 8733337180) 33.1 mmHg Ao root diam (test code = 7554399835) 3.10 cm AV peak gradient (test code = 9108189629) 9.9 mmHg Aortic root (test code = 9990533589) 3.1 cm Ao root annulus (test code = 2956844067) 3.1 cm PW (test code = 2323286719) 1.17 cm 0.6-1.1 EF - 2D (test code = 45517284) 69.80 % Interventricular Septum Diastolic Thickness by 2D (test code = 4478776) 1.20 cm Radiology Study observation (narrative) (test code = 20993-1) JESSICA (test code = JESSICA) ?Left?Ventricle: Left [...] 2 mL of Patient exhibited atrial fibrillation. [facility] RETROPERITONEAL FDFDYNJ4913-88-27 14:55:16 RETROPERITONEAL LIMITED 11/21/2023 6:15 AM HISTORY: bilateral ureterohydronephrosis . COMPARISON:None. Correlation CT abdomen dated 11/20/2023. FINDINGS: RIGHT KIDNEY: The renal length measures 12.7 cm. Normal cortical thicknessand echotexture. Mild hydronephrosis with AP diameter of the renal pel vismeasuring 1.5 cm. No mass or stone. LEFT KIDNEY: Not clearly assessed due to significant bowel gases.[facility] HospitalPrepare Packed RBC (in units), 1 Aelwc5403-06-26 11:09:04* Test Item Value Reference Range Interpretation Comme nts Cross Match Result (test code = 4409) Compatible ISBT Blood Type Code (test code = 537292) 6200 Unit Blood Type (test code = 4410) A Pos Unit Number (test code = 4411) [id number] Blood Expiration Date & Time (test code = 349390) 552261468166 Status Information (test code = 4412) Issued Product Identification (test code = 4413) Red Blood Cells Product Code (test code = 4414) [id number] Performed at [facility] B Laboratory Services - [facility] Blood [address] [place] [address]Vqfw Free: [phone] No. [id number] [facility] HospitalLactic Acid Whole Terdx6534-30-79 04:23:24* Test Item Value Reference Range Interpretation Comme nts LACTIC ACID (test code = 8617790902) 1.38 mmol/L 0.50-2.20 Lab Interpretation (test cod e = 89198-0) Normal [facility] HospitalReticulocytes Hkqsvfsix8984-22-90 03:16:45* Test Item Value Reference Range Interpretation Comme nts RETIC Count Automated (test code = 7329781757) 1.32 % 0.51-1.90 RETIC Absolute Count (test c ode = 4174007374) 0.0478 0.0230-0.0950 IRF % (test code = 7688617043) 29.60 % 2.10-12.60 H RETIC-HE (test code = 0217472843) 25.1 pg 28.1-35.8 L Lab Interpretation (test cod e = 73779-7) Abnormal [facility] GLUCOSE (AUTOMATED)2023-11-21 01:30:47* Test Item Value Reference Range Interpretation Comme nts POCT GLU (test code = 6703859520) 129 mg/dL 70-110 H Lab Interpretation (test cod e = 43275-7) Abnormal [facility] GLUCOSE (AUTOMATED)2023-11-20 23:14:41* Test Item Value Reference Range Interpretation Comme nts POCT GLU (test code = 3614268865) 197 mg/dL 70-110 H Lab Interpretation (test cod e = 67558-0) Abnormal [facility] Glucose (AGE >30 DAYS) - Prior to Insulin Bolus Administration - See Hzzugbir1090-61-96 21:25:00* Test Item Value Reference Range Interpretation Comme nts POCT Glu (age>30days) (test code = 3342) 109 mg/dL 70-110 Lab Interpretation (test cod e = 48073-0) Normal [facility] GLUCOSE (AUTOMATED)2023-11-20 21:21:42* Test Item Value Reference Range Interpretation Comme nts POCT GLU (test code = 9128089924) 109 mg/dL 70-110 Lab Interpretation (test cod e = 34521-9) Normal [facility] ABDOMEN PELVIS WO HWTDROHI4786-60-51 20:39:17ORDERING PHYSICIAN: PABLO CHINCHILLA HISTORY: Peritonitis or [...] atheroscleroticcalcifications. No lymphadenopathy. Bones: No acute abnormality. [facility] with Sukd8989-65-90 18:35:31* Test Item Value Reference Range Interpretation [...] g/dL 31.6-35.1 L RDW-SD (test code = 91799-1) 55.5 fL 39.0-49.9 H RDW-CV (test code = 788-0) 20.8 % 12.0-15.5 H PLT (test code = 777-3) 410 166-358 H MPV (test code = 78933-7) 9.6 fL 9.5-12.9 NRBC/100 WBC (test code = 8631851387) 0.0 0.0-10.0 NRBC x10^3 (test code = 5704654318) See_Comment [Automated message] The system which generated this result transmitted reference range: 10*3/?L. The reference range was not used to interpret this result as normal/abnormal. GRAN MAT (NEUT) % (test code = 770-8) 87.7 % IMM GRAN % (test code = 6432126887) 1.10 % LYMPH % (test code = 736-9) 6.3 % MONO % (test code = 5905-5) 4.1 % EOS % (test code = 713-8) 0.4 % BASO % (test code = 706-2) 0.4 % GRAN MAT x10^3(ANC) (test code = 5121038992) 17.31 10*3/uL 1.88-7.09 H IMM GRAN x10^3 (test code = 3751548361) 0.22 10*3/uL 0.00-0.06 H LYMPH x10^3 (test code = 731-0) 1.24 10*3/uL 1.32-3.29 L MONO x10^3 (test code = 742-7) 0.81 10*3/uL 0.33-0.92 EOS x10^3 (test code = 711-2) 0.07 10*3/uL 0.03-0.39 BASO x10^3 (test code = 704-7) 0.07 10*3/uL 0.01-0.07 ELLIPTO/OVAL (test code = 88356-2) 2+ See_Comment A [Automated message] The system which generated this result transmitted reference range: (none). The reference range was not used to interpret this result as normal/abnormal. SPHEROCYTES (test code = 802-9) 1+ A BANDS (test code = 3293793192) Increased A TOXIC CHANGES (test code = 803-7) Present A Lab Interpretation (test code = 73998-2) Abnormal [facility] HospitalLactic Acid Whole Ugpph4983-43-03 17:22:29* Test Item Value Reference Range Interpretation Comme nts LACTIC ACID (test code = 8324179563) 2.98 mmol/L 0.50-2.20 H Lab Interpretation (test cod e = 65645-7) Abnormal [facility] Consult Notes Date/Time Note Provider Source 2024-01-09 [...] Location: [facility]UB[facility]IG[facility] PRIOR LIVING SITUATION: lives with their spouse and in a [employer] story house, Ramp access DME: Wheel Chair [...] in some pain reduction COMMUNICATION Primary Language: Malagasy Able to Verbalize needs: Yes Vision:reading glasses [...] Minutes: 30 min Isrrael Hutchison PT, DPT [facility] Rehabilitation Services A physical therapy evaluation of [...] clinical presentation with unstable and unpredictable characteristics [facility] [employer] 2024-01-09 10:00:00 Associated Order(s): CONSULT VASCULAR ACCESS Vascular Access Services VAS was consulted for midline insertion. Consult has been acknowledged, and the patient's medical chart has been reviewed. Please see procedural note. [facility] [employer] 2024-01-09 08:20:00 Associated Order(s): CONSULT ADULT OCCUPATIONAL THERAPY OT GENERAL EVALUATION Consult received via Pin digital, EMR reviewed and evaluation completed 01/09/24. 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 Kelly Hartley O.T.Erin. [phone] [facility]. Total Timed Treatment Codes: 25 Min Total [...] to complete evaluation component. Kelly Hartley OT [facility] 2024-01-08 08:41:23 Associated Order(s): CONSULT DEHYDROGENATION CONVERTER HELPER-ADULT Care Management Note 01/08/24 3:40 PM Patient's Desiree # [phone] said they would like to proceed with submitting referral to [facility]. Attempted to choice patient but they were not in the room (gone to CT). I told patient's Desiree # [phone] that I would be back first thing [...] PM I reached out to Ally # [phone] with [facility] asking if they are in-network for patients insurance. She said they are. I let the patient's Desiree # [phone] know and he said he was going to tour [facility] ([address], [place], P: [phone]; ) SNF and let me know if they would like to move forward with them. 01/08/24 12:43 PM Patient was asleep when I entered the room. Khanh/Aram # [phone] said that the plan is to look [...] and potential placement. Hammad Longoria RN, BSN Senior Technical Manager - [email or web address] [phone] [facility] 2023-12-20 09:46:00 Associated Order(s): CONSULT PHYSICAL THERAPY [...] to nursing. Liliana Veronica PT, DPT Liliana Veronica PT [facility] 2023-12-18 11:00:00 Associated Order(s): CONSULT VASCULAR ACCESS [facility] VAS was consulted for midline insertion. Per nursing the current midline is functioning properly without any complications. No need for new midline at this moment. [facility] 2023-12-15 17:42:57 Associated Order(s): CONSULT WOUND, OSTOMY, OR CONTINENCE CARE TEAM Q 6 hour dressing changes are not WOCN orders but instead bedside RN orders. Dr Garner made aware. Antoinette Abbott RN 12/15/2023 5:44 PM Antoinette Abbott RN [facility] 2023-12-14 08:59:14 Summary: WOCN- WTA Follow [...] asked were answered. Antoinette PADILLA, RN-BC, WTA [facility] 2023-12-12 16:01:40 Associated Order(s): CONSULT CARDIOLOGY See cardio note from today. Cardio previously consulted this admission. Associated attestation - Lencho Daugherty MD - 12/12/2023 4:15 PM CDT [facility] 2023-12-12 08:58:40 Associated Order(s): CONSULT HEMATOLOGY [...] be removed in outpatient setting. Presented to [facility] on 12/03/2023 with AMS and hollow viscus [...] 40 mg, Slow IV Push, Q12H, To Schultz DO, 40 mg at 12/11/23 2257 KCL (KLOR-CON [...] fluticasone propionate 50 mcg/actuation nasal spray 1 Austin, 1 Austin, Nasal, BID, Donna Garner MD, 1 Austin at 12/11/23 0840 pantoprazole (PROTONIX) EC tablet 40 mg, 40 mg, Oral, DAILY, Sukhwinder Almodovar MD, 40 mg at 12/11/23 0839 sodium chloride (OCEAN MIST NASAL) 0.65 % nasal spray 1 Austin, 1 Austin, Nasal, BID, Donna Garner MD, 1 Austin at 12/11/23 0840 Lidocaine (LIDOCARE) 4 % [...] resident's note for additional details. INTERNAL MEDICINE [facility] 2023-12-11 16:00:00 Associated Order(s): CONSULT VASCULAR ACCESS Vascular Access Services VAS was consulted for midline insertion. Consult has been acknowledged, and the patient's medical chart has been reviewed. Please see procedural note. [facility] 2023-12-10 11:16:00 Associated Order(s): CONSULT ADULT PHYSICAL THERAPY PT Note Duplicate Consult. PT will continue to follow. Donny Montana PT, DPT Rehabilitation Services [facility] 2023-12-10 11:07:00 Associated Order(s): CONSULT ADULT OCCUPATIONAL THERAPY 12/11/2023 OCCUPATIONAL THERAPY NOTE: Duplicate consult. Maryjane Hernandez, OTR License #[id number] Maryjane Hernandez OT [facility] 2023-12-07 09:32:00 Associated Order(s): CONSULT ADULT OCCUPATIONAL THERAPY OT GENERAL EVALUATION Consult received via Pin digital, EMR reviewed and evaluation completed 12/07/23. Patient referred to occupational therapy for evaluation and treatment secondary to colon perforation and s/p exploratory laparotomy. Seen in conjunction with Keshav Romero PT and Getachew Burnette, SPT secondary to [...] bilateral AROM WFL UE Strength: GARCIA hand cartoon artist 4/5 Hand dominance: right Dexterity/Coordination: bilateral Gross [...] of skill. Muna Price, OTR, OTD Pager: [phone] Total Timed Treatment Codes: 23 Min Total [...] to enable patient to complete evaluation component. [facility] 2023-12-07 09:30:00 Associated Order(s): CONSULT ADULT [...] was unable to rate. COMMUNICATION Primary Language: Malagasy Able to Verbalize needs: Yes Vision:good; no [...] encounter dated 12/07/23. Angus Romero, PT, DPT [facility] Physical Therapy Rehabilitation Services A physical therapy [...] clinical presentation with unstable and unpredictable characteristics [facility] 2023-12-05 14:51:43 Associated Order(s): CONSULT NEPHROLOGY [...] pulmonary process. END REPORT RL: 460 AFC: [id number] CHEST 1 VW Result Date: 12/05/2023 Impression: Endotracheal tube terminates 5.1 cm above the sera. Right internal jugular central venous catheter terminates in the right atrium, approximately 4 cm below the level of the cavoatrial junction. Stable moderate cardiomegaly without acute pulmonary process. END REPORT RL: [id number] AFC: [id number] KUB Result Date: 12/04/2023 FINDINGS/IMPRESSION: Enteric tube with tip projecting over the distal esophagus. Further advancement recommended. Residual contrast is seen within the bilateral pyelocalyceal system. Lower abdominal not included within the ymdjt-lh-gmfr. [id number] dated 12/04/2023 at 2:39. FINDINGS/IMPRESSION: Enteric tube seen in similar position, projecting over distal esophagus. Advancement recommended. [id number] dated 12/04/2023 at 2:40. FINDINGS/IMPRESSION: Unchanged position [...] system. Lower abdominal not included within the xocrn-xb-dqhn. [id number] dated 12/04/2023 at 2:39. FINDINGS/IMPRESSION: Enteric tube seen in similar position, projecting over distal esophagus. Advancement recommended. [id number] dated 12/04/2023 at 2:40. FINDINGS/IMPRESSION: Unchanged position [...] system. Lower abdominal not included within the yjkcc-tj-pnqt. [id number] dated 12/04/2023 at 2:39. FINDINGS/IMPRESSION: Enteric tube seen in similar position, projecting over distal esophagus. Advancement recommended. [id number] dated 12/04/2023 at 2:40. FINDINGS/IMPRESSION: Unchanged position [...] Jaquez MD Nephrology and Hypertension Fellow Pager: [phone] Associated attestation - Eben Huitron MD - [...] Eben Huitron MD [facility] Division of Nephrology & Hypertension NEPHROLOGY [facility] 2023-12-04 16:12:00 Associated Order(s): CONSULT WOUND, OSTOMY, OR CONTINENCE CARE TEAM [facility] Nurse Note Consult for post op colostomy [...] appropriate. Michelle Alas RN 12/04/2023 4:20 PM [facility] 2023-12-04 13:48:31 Associated Order(s): CONSULT UROLOGY UROLOGY [...] 1987 EXPLORATORY LAPAROTOMY N/A 12/03/2023 Surgeon: Taylor Segudno MD; Location: [facility] FECAL DISIMPACTION N/A 12/03/2023 Surgeon: Taylor Segundo MD; Location: [facility] TUBAL LIGATION No family history [...] and digital vaginal exam preformed with nurse hogshead wrecker after obtaining consent from daughter. Digital vaginal [...] Theodore MD Urology Resident Pager: please page gauge controller using [employer] Associated attestation - Pablo Light MD - 12/09/2023 12:08 PM CDT I discussed the patient with Dr. Theodore, and agree with his assessment and plan. I participated in the decision making process. UROLOGY [facility] 2023-12-04 10:44:56 Associated Order(s): CONSULT CARDIOLOGY [...] this time. She does not see a nitric acid concentrator operator regularly. ROS: Per HPI Past Medical History: Diagnosis Date Paroxysmal atrial fibrillation Scoliosis Past Surgical History: Procedure Laterality Date BOWEL RESECTION N/A 12/03/2023 Surgeon: Taylor Segundo MD; Location: [facility] SECTION 1987 EXPLORATORY LAPAROTOMY N/A 12/03/2023 Surgeon: Taylor Segundo MD; Location: [facility] FECAL DISIMPACTION N/A 12/03/2023 Surgeon: Taylor Segundo MD; Location: [facility] TUBAL LIGATION No family history [...] 0.9% (NS) RTU, 25-200 mcg/hr, IV Infusion, TITRATEJatin Erin, MD, Last Rate: 2.5 mL/hr at 12/04/23 0727, 25 mcg/hr at 12/04/23 0727 metoprolol (LOPRESSOR) injection 5 mg, 5 mg, Intravenous, Q6HPRN, Taylor Segundo MD, 5 mg at 12/04/23 1110 NORepinephrine (LEVOPHED) 4 mg/250 mL in 0.9% NaCl infusion, 0.05-0.5 mcg/kg/min, IV Infusion, TITRATEJatin Erin, MD, Last Rate: 51.03 mL/hr at 12/04/23 [...] and management service. Steven Mancia MD, SHANNON Outside Machinist, PGY 4 Associated attestation - [place] [...] need a 30-day event monitor on discharge. [facility] 2023-12-03 13:50:00 BRIEF INTERVENTIONAL RADIOLOGY CONSULT [...] the resident's note. VASCULAR & INTERVENTIONAL RADIOLOGY [facility] 2023-11-22 10:15:00 Associated Order(s): CONSULT ADULT [...] reduction, and Repositioning Provided COMMUNICATION Primary Language: Malagasy Able to Verbalize needs: Yes Vision:glasses Hearing:good; [...] min Santhosh Mustafa PT Santhosh Mustafa PT [facility] 2023-11-21 15:30:00 Associated Order(s): CONSULT ADULT OCCUPATIONAL THERAPY OT GENERAL EVALUATION Consult received via Pin digital, EMR reviewed and evaluation completed 11/21/23. Patient [...] commode, Tub transfer bench, and Long handled repairer resistance welding machines PLAN OF CARE: At least 2x/week Precautions: [...] enable patient to complete evaluation component. T [facility] - Health History and Physical Notes Date/Time [...] Services Hospital where she was transferred to [facility] for further evaluation. She denies nausea, vomiting, [...] - Restart home meds Shira Victoria MD [facility] General Surgery 01/06/2024 6:51 PM Attending Seen [...] limited by social determinants of health CPT: 79320 - Admit/Obs Moderate (at least two of problems, amount of data, and risk of complications are moderate) [facility] 2023-12-03 03:09:54 ACS SURGERY H&P Date of Service: 12/03/2023 Chief Complaint: hollow viscus perforation EMILY Grier is a 73 year old female [...] procedures): 150 min Taylor Segundo MD, PhD Zigzag Stitcher Trauma, Acute Care Surgery, and Surgical Critical Care In-house Pager: [phone] [facility] 2023-11-20 17:50:40 ARNOLD TEAM ADMIT H&P DATE OF SERVICE: 11/20/2023 PCP: PATIENT DOES NOT HAVE A PCP CHIEF COMPLAINT: abdominal pain HISTORY OF PRESENT ILLNESS: Zarina Grier is a 73 year old female with PMH of scoliosis who presents as a transfer from [facility] for abdominal pain. Patient initially presented to the [facility] ED with daughter due to complaints [...] hallucinations at this time. Daughter (Luanne Grier; [phone]) was contacted to elicit further history. Daughter [...] details. Juni Nagy MD Division of Internal Private Duty LpnZigzag Stitcher [facility] Procedure Notes Date/Time Note Provider Source 2024-01-09 11:30:00 Vascular Access Services A bedside timeout was conducted before procedure with Anya Leal RN. An ultrasound guided, 3fr 15 cm. MIDLINE was then placed in the left basilic vein, in 1 attempt(s). Local anesthetic was used. Labs were obtained. REF#: [id number] Lot #: [id number] Exp: 07/24/2024 Kaushik Sherman RN [facility] 2023-12-11 17:00:00 Vascular Access Services A bedside timeout was conducted before procedure with Hailey Carvalho RN. An ultrasound guided, 4fr 10cm. MIDLINE was then placed in the left cephalic vein, in 1 attempt(s). Local anesthetic was not used. Labs were not obtained. REF#: [id number] Lot #: [id number] Exp: 05/24/2025 Kaushik Sherman RN [facility] 2023-12-04 20:16:40 Procedure(s): ARTERIAL LINE ARTERIAL LINE PLACEMENT Date of Service: 12/04/2023 Faculty: One[place] Indication/Diagnosis: Need for HD monitoring, intubated Sterile [...] Elkins MD Trauma and Acute Care Surgery [facility] SURGERY [facility] 2023-12-04 19:58:12 Procedure(s): CENTRAL LINE CENTRAL [...] Trauma and Acute Care Surgery Faculty SURGERY [facility] 2023-12-03 20:43:59 Associated Order(s): Arterial Line [...] accounted for Comments: Tegaderm CHG applied. AN-ANESTHESIOLOGY [facility] 2023-12-03 20:41:41 Associated Order(s): Intubation Intubation Date/Time: 12/03/2023 7:57 PM Urgency: elective Airway not difficult General Information and Staff Patient location during procedure: OR Performed: resident/HUMAN RESOURCES DEPARTMENT SUPERVISOR Performed by: Stan Izquierdo MD Authorized [...] gums, teeth, and nose unchanged vs. preop. [facility] Notes Date/Time Note Provider Source 2024-02-06 13:37:49 Pt appt was on 01/29. The appt was canceled. Will close this encounter. PHERAL EQUIPMENT OPERATOR Na Lentz RN [facility] 2024-01-26 09:15:00 aZrina Jacobo is a 73 year old female Patient daughter requesting call back to see if patient will be able to be seen in [place] due to transportation. Please contact patient daughter. Amina Lozano [facility] 2024-01-23 12:46:00 Zarina Jacobo is a 73 year old female, patient daughter calling again to see about getting her follow-up appointment moved to [place]. States there is just no way she can get her to [place]. Caller was advised that typically follow-up is only done by the team that did the surgery. Please call to advise, initial encounter from last week has not been responded to. Serenity Morin [facility] 2024-01-17 14:30:47 Zarina Jacobo Pts daughter called [...] she can have her post op in [facility] instead of [place]. Please contact pts daughter and advise. DOS: 01/05 NOV: 01/29 (home) Vicky Carmichael [facility] 2024-01-16 15:38:21 TRANSITIONAL CARE MANAGEMENT ASSESSMENT 01/16/2024 Zarina Jacobo [id number] Zarina Jacobo is a 73 year old /White female was admitted on 01/06/[address] She was discharged on 01/14/24 with discharge disposition of HR- Routine Discharge. Admitting Physician: Isrrael Galindo Discharge Diagnosis: Wound infection No linked episodes TCM Rlw-ikcl-tq-face outreach documentation: CM made follow up call to patient post-discharge. No answer and call went to voicemail. Two attempts made to reach patient. Discharge Assessment Chart Assessed: 01/16/24 TCM Outreach Completed: 01/16/24 Future Appointments: Cinthya Andrade RN [facility] 2024-01-16 11:27:15 CM made follow up call to patient post-discharge. CM left a message with pt's electrician helper powerhouse and call back number. [facility] 2024-01-14 10:22:47 Problem: Falls, Risk of Goal: [...] Outcome: Progressing as expected Ally Zuñiga RN [facility] 2024-01-14 01:02:27 Problem: Falls, Risk of Goal: [...] level Outcome: Progressing as expected Lozano RN [facility] 2024-01-13 09:05:20 Problem: Falls, Risk of Goal: [...] level Outcome: Progressing as expected Leal RN [facility] 2024-01-13 00:28:52 Problem: Falls, Risk of Goal: [...] maximum mobility level Outcome: Progressing as expected [facility] 2024-01-12 17:51:10 Problem: Falls, Risk of Goal: [...] Outcome: Progressing as expected Karen Newby RN [facility] 2024-01-12 00:13:23 Problem: Falls, Risk of Goal: [...] maximum mobility level Outcome: Progressing as expected [facility] 2024-01-11 18:13:59 Problem: Falls, Risk of Goal: [...] maximum mobility level Outcome: Progressing as expected [facility] [employer] 2024-01-11 04:08:35 Problem: Falls, Risk of Goal: [...] Return to baseline elimination pattern Outcome: Resolved [facility] [employer] 2024-01-10 09:00:17 Problem: Falls, Risk of Goal: [...] baseline elimination pattern Outcome: Progressing as expected [facility] 2024-01-10 05:18:17 Patient bladder scanned, >999ml in [...] turn me, leave me alone." MD notified. [facility] Stephanie Chong RN [facility] [employer] 2024-01-10 02:51:37 Problem: Falls, Risk of Goal: [...] baseline elimination pattern Outcome: Progressing as expected [facility] [employer] 2024-01-09 22:49:00 Patient bladder scanned >999ml. Dr. [...] urine output, instructed to continue to monitor. [facility] [employer] 2024-01-09 08:01:02 Problem: Falls, Risk of Goal: Absence of falls Outcome: Progressing as expected Problem: Infection Risk Goal: Absence of infection Outcome: Progressing as expected Problem: Pain Goal: Control of pain at or below patient's documented comfort goal Outcome: Progressing as expected Problem: Skin integrity Impaired (Risk or Actual) Goal: Wound healing Outcome: Progressing as expected [facility] [employer] 2024-01-09 02:25:03 Problem: Falls, Risk of Goal: [...] new skin breakdown Outcome: Progressing as expected [facility] 2024-01-08 19:30:00 Pt lying in bed,awake,and refusing [...] scan. MD notified. T Pablo Slaughter RN [facility] 2024-01-08 10:57:40 Problem: Falls, Risk of Goal: [...] new skin breakdown Outcome: Progressing as expected [facility] 2024-01-08 04:56:21 Problem: Falls, Risk of Goal: [...] new skin breakdown Outcome: Progressing as expected [facility] 2024-01-07 16:21:15 Problem: Falls, Risk of Goal: [...] Outcome: Progressing as expected Brooklyn Colorado RN [facility] 2024-01-06 18:30:00 Patient arrived to the unit in 1115 by EMS stretcher from [facility] in [place], [place]. No family at bedside. Patient was [...] cleaned and new dressing applied per MD. [facility] 2024-01-01 15:06:39 TRANSITIONAL CARE MANAGEMENT ASSESSMENT 01/01/2024 Zarina Grier [id number] Zarina Grier is a 73 year old /White female was admitted on 12/03/[address] She was discharged on 12/29/23 with discharge disposition of HR- Routine Discharge. Admitting Physician: Jr Saravia Discharge Diagnosis: K63.1 Colon perforation (primary encounter diagnosis) R10.9 Abdominal pain, unspecified abdominal location I48.20 Chronic atrial fibrillation No linked episodes TCM Jfq-jphj-sk-face outreach documentation: CM made follow up call to patient post-discharge. No answer and call went to voicemail. CM left a discreet message with purpose of call and CM's call back information. Two attempts made to reach patient. Future Appointments: Cinthya Andrade RN [facility] 2024-01-01 09:44:56 CM made follow up call to patient post-discharge. No answer and call went to voicemail. CM was unable to leave a voicemail or there was no option to leave a voicemail. [facility] 2023-12-28 17:44:58 Problem: Falls, Risk of [...] Outcome: Progressing as expected Nel Pierce RN [facility] 2023-12-27 17:05:09 At 1400 I removed [...] ready to go home. Mimi Zuñiga RN [facility] 2023-12-27 10:08:12 Problem: Falls, Risk of [...] of restraint-related injury Outcome: Progressing as expected [facility] 2023-12-26 20:40:27 Problem: Falls, Risk of Goal: Absence of falls Outcome: Progressing as expected Problem: Infection Risk Goal: Absence of infection Outcome: Progressing as expected Problem: Skin integrity Impaired (Risk or Actual) Goal: Wound healing Outcome: Progressing as expected Andre RN [facility] 2023-12-26 09:38:50 Problem: Falls, Risk of [...] of restraint-related injury Outcome: Progressing as expected [facility] 2023-12-25 10:38:46 Problem: Falls, Risk of Goal: Absence of falls Outcome: Progressing as expected [facility] Hailey Carvalho RN [facility] 2023-12-25 00:32:57 Problem: Falls, Risk of [...] of cognitive ability Outcome: Progressing as expected [facility] [employer] 2023-12-24 00:56:29 Problem: Falls, Risk of Goal: [...] of cognitive ability Outcome: Progressing as expected [facility] [employer] 2023-12-23 18:14:24 Problem: Falls, Risk of Goal: [...] of restraint-related injury Outcome: Progressing as expected [facility] 2023-12-23 18:00:00 Problem: Falls, Risk of Goal: [...] at or below patient's documented comfort goal 12/23/2023 2006 by Nel Pierce RN Outcome: Progressing as [...] Nel Pierce RN Outcome: Progressing as expected [facility] 2023-12-22 23:21:44 Problem: Falls, Risk of Goal: [...] or below patient's documented comfort goal 12/22/2023 232 by Jarek Butt RN Outcome: Progressing as expected 12/22/2023 232 by Jarek Butt RN Outcome: Progressing as [...] Jarek Butt RN Outcome: Progressing as expected [facility] 2023-12-22 15:59:01 Problem: Falls, Risk of Goal: [...] Goal: Wound healing 12/22/2023 1556 by Nel Pierce, RN Outcome: [...] Goal: Effective communication 12/22/2023 1556 by Nel Pierce, RN Outcome: [...] Nel Pierce RN Outcome: Progressing as expected [facility] 2023-12-21 11:59:03 Problem: Falls, Risk of Goal: [...] of restraint-related injury Outcome: Progressing as expected [facility] 2023-12-21 04:33:41 Patient refused morning labs. Pageelian BROOKS to notify. [facility] Sylvia Riley RN [facility] 2023-12-21 00:49:48 Pt continues to refuse: [...] do not have order for suicide precautions. diamond grader remains at bedside. Room not set up for SI precautions d/t questionable need and lack of order. MD returned call and stated that primary team would not be coming to bedside to assess and that psych would be consulted to assess patient for any concerns in the morning. diamond grader remains at bedside and area within patients reach has been cleared of items that could cause harm. [facility] 2023-12-21 00:39:08 Problem: Falls, Risk of Goal: [...] of restraint-related injury Outcome: Progressing as expected [facility] 2023-12-20 11:33:30 Patient is still refusing to [...] on her later. The sitter is bedside. [facility] 2023-12-20 10:09:09 Problem: Falls, Risk of Goal: Absence of falls 12/20/2023 100 by Mimi Zuñiga RN Outcome: Progressing as expected 12/20/2023 100 by Mimi Zuñiga RN Outcome: Progressing as expected Problem: Infection Risk Goal: Absence of infection 12/20/2023 100 by Mimi Zuñiga RN Outcome: Progressing as expected 12/20/2023 1008 by Mimi Zuñiga RN Outcome: Progressing as expected Problem: Pain Goal: Control of pain at or below patient's documented comfort goal 12/20/2023 100 by Mimi Zuñiga RN Outcome: [...] Progressing as expected Goal: Patent airway 12/20/2023 1009 by Mimi Zuñiga RN Outcome: Progressing as expected 12/20/2023 100 by Mimi Zuñiga RN Outcome: Progressing as expected Problem: Discharge Planning Goal: Adequate for discharge 12/20/2023 1009 by Mimi Zuñiga RN Outcome: [...] Zuñiga RN Outcome: Progressing as expected T [facility] 2023-12-20 02:35:45 Problem: Falls, Risk of [...] Progressing as expected T Pablo Slaughter RN [facility] 2023-12-19 12:56:35 Problem: Falls, Risk of [...] Patient is refusing care. Danika Arredondo RN [facility] 2023-12-18 17:09:00 Pt is refusing to [...] too so she left and went home. [facility] 2023-12-18 17:06:08 Problem: Falls, Risk of [...] of restraint-related injury Outcome: Progressing as expected [facility] 2023-12-17 22:01:46 Problem: Falls, Risk of Goal: [...] of restraint-related injury Outcome: Progressing as expected [facility] 2023-12-17 21:00:00 R'cd pt semi-fowlers in bed, [...] any change in condition. Jarek Butt RN [facility] 2023-12-17 19:12:34 Problem: Falls, Risk of [...] Outcome: Progressing as expected Brooklyn Colorado RN [facility] 2023-12-17 05:34:28 Spoke to Surgery residents about either arranging a sitter for the patient or obtaining n order for video monitoring as RN is concerned about the patient pulling out her midline. They will discuss this with the morning team and place necessary orders afterwards, Mac RN [facility] 2023-12-17 01:01:48 RN offered to change dressing twice for her wounds, pt refused each time stating she doesn't want it to done tonight. Will attempt to change it again, All wounds dressing changed, colostomy bag replaced. [facility] 2023-12-17 01:00:04 Problem: Falls, Risk of Goal: [...] of restraint-related injury Outcome: [facility] as [facility] 13:35:59 Problem: Falls, Risk of Goal: [...] of cognitive ability Outcome: Progressing as expected [facility] [employer] 2023-12-16 07:21:15 Unsuccessful attempt X 2 to insert PIV d/t poor venous return site areas. MD aware of PIV need. [facility] 2023-12-16 00:47:51 Problem: Falls, Risk of Goal: [...] of restraint-related injury Outcome: Progressing as expected [facility] 2023-12-15 18:43:00 Primary nurse performed dressing change to LLQ abdominal surgical incision with Dakins solution, kerlex, abdominal pad, and foam tape. [facility] Ginette Pang RN [facility] 2023-12-15 11:27:55 Problem: Falls, Risk of [...] of restraint-related injury Outcome: [facility]ing as expected [facility]23-[facility] 02:44:13 Problem: Falls, Risk of Goal: [...] of cognitive ability Outcome: Progressing as expected [facility] 2023-12-15 01:32:08 0130-Trauma returning page by Beckie [...] place a new line." Chary Lozano RN [facility] 2023-12-14 12:42:01 HEMATOLOGY & ONCOLOGY BRIEF [...] Adrian Tavares MD PGY6 - Heme/Onc Fellow [facility] Dept of Hematology and Oncology HEMATOLOGY & ONCOLOGY [facility] 2023-12-14 08:55:09 Problem: Falls, Risk of [...] Outcome: Progressing as expected Dayday Leal RN [facility] 2023-12-14 02:21:17 Problem: Falls, Risk of [...] Outcome: Progressing as expected Stephanie Cortes RN [facility] 2023-12-13 11:44:13 Problem: Falls, Risk of [...] of cognitive ability Outcome: Progressing as expected [facility] 2023-12-13 06:04:16 Problem: Falls, Risk of [...] Outcome: Progressing as expected Obdulia Matt RN [facility] 2023-12-12 13:12:46 This query is intended [...] DO Emergency Medicine PGY-1 12/12/2023 13:17 T [facility] 2023-12-12 05:19:58 Problem: Falls, Risk of Goal: [...] Goal: Effective communication Outcome: Progressing as expected [facility] 2023-12-11 06:49:01 Problem: Falls, Risk of Goal: [...] Goal: Patent airway Outcome: Progressing as expected [facility] Miguel Monge RN [facility] 2023-12-10 08:37:18 Problem: Falls, Risk of [...] Outcome: Progressing as expected Scarlet Gaines RN [facility] 2023-12-09 23:28:17 Problem: Falls, Risk of [...] Outcome: Progressing as expected Maurisio Marie RN [facility] 2023-12-09 00:49:44 Problem: Falls, Risk of [...] Outcome: Progressing as expected Peggy Greenwood RN [facility] 2023-12-07 04:39:06 Problem: Falls, Risk of [...] Outcome: Progressing as expected Magui Mccray RN [facility] 2023-12-06 07:43:45 Problem: Falls, Risk of [...] Goal: Patent airway Outcome: Progressing as expected [facility] Alexandria Barboza RN [facility] 2023-12-06 06:07:51 Problem: Falls, Risk of [...] Goal: Patent airway Outcome: Progressing as expected [facility] 2023-12-05 09:54:55 Problem: Falls, Risk of Goal: [...] Goal: Patent airway Outcome: Progressing as expected [facility] 2023-12-04 09:24:35 Problem: Falls, Risk of Goal: [...] Outcome: Progressing as expected Génesis Giles RN [facility] 2023-12-04 03:43:42 Addendum created 12/04/23 034 by Stan Izquierdo MD Intraprocedure Meds edited AN-ANESTHESIOLOGY [facility] 2023-12-04 03:21:10 Patient: Zarina Grier Procedure Summary Date: 12/03/23 Room / Location: [address] Anesthesia Start: 1946 Anesthesia Stop: 12/04/23 0211 Procedures: EXPLORATORY LAPAROTOMY (Abdomen) BOWEL RESECTION [...] and ventilator Hydration status: acceptable AN-ANESTHESIOLOGY ANESTHESIOLOGIST [facility] 2023-12-04 00:20:27 Daughter at bedside updated Tiffany Monique RN [facility] 2023-12-03 21:53:09 FULL OPERATIVE NOTE Date [...] Care Surgery, Trauma, and Surgical Critical Care [facility] 2023-12-03 19:24:42 Name/ MRN / Age / Gender: Zarina Grier, [id number] 73 year old female BMI: Estimated body [...] (physical exam) Anesthesia Preop: Chart Review and [id number] Communication: Zarina Grier is a [...] Endocrine/other ROS Negative per Chart Review Other [employer] Pediatric Preoperative Medication Instructions Continue taking all prescribed medications except: MATHEUS inhibitors, ARBs, diuretics, all oral diabetes medications Anticoagulant Therapy: Defer to surgeons Insulin: Take 1/2 dose the night prior to surgery. Hold on DOS. Phentermine: Alert [facility] anesthesiologist SGLT2 Inhibitors: "gliflozins" to [...] & antiemetics Recovery Plan: ICU Additional comments: [facility] [employer] 2023-12-03 06:31:30 Name/ MRN / Age / Gender: Zarina Grier, [id number] 73 year old female BMI: Estimated body [...] (no physical exam) Anesthesia Preop: Chart Review [facility] Communication: Zarina Grier is a [...] Endocrine/other ROS Negative per Chart Review Other [employer] Pediatric Preoperative Medication Instructions Continue taking all prescribed medications except: MATHEUS inhibitors, ARBs, diuretics, all oral diabetes medications Anticoagulant Therapy: Defer to surgeons Insulin: Take 1/2 dose the night prior to surgery. Hold on DOS. Phentermine: Alert [facility] anesthesiologist SGLT2 Inhibitors: "gliflozins" to [...] Anesthesia Plan ASA Status: 4 emergent AN-ANESTHESIOLOGY [facility] 2023-12-03 03:31:57 Report given to Chris CALLE at this time. RN's discussed POC and further recommendations for care. Clifton Marcus RN [facility] 2023-12-03 03:24:56 Waiting for gen surg to leave to transport patient [facility] 2023-12-03 03:13:16 General surgery at bedside T [facility] 2023-12-03 02:32:50 Zarina Grier is a [...] surgery at this time. Rafael Juarez RN [facility] 2023-12-03 02:28:50 Gen surgery at bedside for assessment, pt placed on monitor Plan of care is OR [facility] 2023-12-03 02:15:02 Zarina Grier is a 73 year old female who presents to see the general surgery team. Pt GCS 15, gen surgery paged at [phone], and are aware of pt's arrival. Raj Pastor RN [facility] 2023-11-28 10:10:51 Paged that patient requested refill on [place]. Refilled for 7 days but patient should follow-up in clinic for further refills. Ivan Rogers MD PGY-3, Internal Medicine T [facility] 2023-11-24 11:29:55 TRANSITIONAL CARE MANAGEMENT ASSESSMENT 11/24/2023 Zarina Grier [id number] Zarina Grier is a 73 year old /White female was admitted on 11/20/[address] She was discharged on 11/23/23 with discharge disposition of HR- Routine Discharge. Admitting Physician: Stefanie Johnson Discharge Diagnosis: NAOMY 2/2 obstructive uropathy Citrobacter UTI No linked episodes TCM Ked-zoiy-iz-face outreach documentation: Discharge Assessment Chart Assessed: 11/24/23 [...] use the medical supplies/equipment?: Yes DME Location: [address] [address] () [phone] (F) [phone] DME Other: DME List: [employer] Follow [...] Yes Discharge Location: Home Health location: Other ([facility]) Other Home Health location: [facility] Survey - Recognition Is there anything you would like to share about your recent hospitalization, or anyone you would like to recognize?: No Do you have any suggestions for improvement?: No Do you have any other questions or concerns at this time?: No [facility] Daisy Nelson RN [facility] 2023-11-24 11:23:51 Dtr requesting a call to epi as reports she's currently working. [facility] 2023-11-23 14:44:31 Problem: Procedure Routine Goal: Absence [...] Outcome: Progressing as expected Valerie Sood RN [facility] 2023-11-23 12:15:20 Problem: Procedure Routine Goal: [...] Absence of falls Outcome: Progressing as expected [facility] 2023-11-22 10:27:00 Problem: Procedure Routine Goal: [...] Outcome: Progressing as expected Stephanie Altamirano RN [facility] 2023-11-22 01:06:55 Problem: Procedure Routine Goal: [...] Outcome: Progressing as expected Pablo Burroughs RN [facility] 2023-11-21 10:42:33 Problem: Procedure Routine Goal: [...] of cognitive ability Outcome: Progressing as expected [facility] 2023-11-20 20:29:34 Problem: Procedure Routine Goal: Absence of post-procedure complications Outcome: Progressing as expected Goal: Knowledge of procedure Outcome: Progressing as expected Problem: Infection Risk Goal: Absence of infection Outcome: Progressing as expected Problem: Falls, Risk of Goal: Absence of falls Outcome: Progressing as expected Problem: Activity Intolerance Goal: Improved activity tolerance Outcome: Progressing as expected Thomas Andre RN [facility] 2023-11-20 19:00:19 Nurse Report Report given to LUC Matthews. Chief complaint, assessment findings, and orders reviewed. Plan of care discussed with both nurses. Patient/family members verbalized understanding for admission and transfer. Justina Jordan RN T Justina Jordan RN [facility] 2023-11-20 18:49:30 Patient admitted to [facility] for diagnosis of hyperkalemia, obstructive uropathy, NAOMY, anemia, constipation, atrial fibrillation, and abdominal pain. Patient agrees to admission, discussed plan of care with patient and family. Patient is awake, alert, oriented, resp reg unlabored, color appropriate for race, PIV intact with sodium bicarb No adverse reaction to medications administered while in ED Belongings with patient to unit. [facility] 2023-11-20 18:24:39 Report given to Terrell with [facility]. Requested to recheck BGL en route. [facility] 2023-11-20 11:09:54 Pt to ED accompanied by daughter CO delusions, confusion, abd pain, and malodorous urine for 2 weeks. Denies fever. Denies dysuria. T [facility] 2023-11-20 11:02:00 [facility] Emergency Department Note Patient Name: Zarina Grier Date of : 1950 73 year old female Treatment Room: Room/bed info not found Primary Care Physician: No primary care provider on file. Patient Escorted by: Family [5] Mode of Arrival: Personal means [1] EMS Treatment Prior to ED Arrival: SERVICE PERSON treatment: None Travel and Exposure Screening: Symptoms [...] TOXIC CHANGES Present (*) COMP. METABOLIC PANEL (57052) - Abnormal NA 131 (*) 135 - [...] CONTRAST Cbc with Diff Comp. Metabolic Panel (29313) Troponin I Lipase Urinalysis Lactic Acid Whole [...] micromoles/L) AdmissionCare documentation entered by: Pablo Chinchilla [facility], 28th edition, Copyright ? 2023 [employer] [facility] All Rights Reserved. [id number]:18:34-05:00 ED COURSE Diagnosis/Impression as of 11/20/23 1701 Abdominal pain, unspecified abdominal location Hyperkalemia Obstructive uropathy NAOMY (acute kidney injury) Constipation, unspecified constipation type Anemia, unspecified type Atrial fibrillation with controlled ventricular rate Procedures: Procedures MDM: Medical Decision Making DDx incl UTI, sepsis, SBO, Colitis, appy, incarcerated hernia, PNA, ACS, dysrhythmia, et al Pt to be transferred d/t no beds at [facility] D/w pt and family to inform of going to [facility] Amount and/or Complexity of Data Reviewed Labs: ordered. Radiology: ordered. Discussion of management or test interpretation with external provider(s): D/w [facility] Admitting --> pt accepted for transfer Risk OTC drugs. Prescription drug management. Parenteral controlled substances. Flowsheet Documentation: Disposition/Condition: ED Disposition ED Disposition Transfer - [facility] to IP/Obs Condition -- Comment -- Discharge Medications: Patient's Medications No medications on file Follow-up: Electronically signed by: Pablo Chinchilla MD [facility]/20[facility]231700 [facility] 2023-11-20 11:02:00 AdmissionCare Guideline: Renal Failure [...] micromoles/L) AdmissionCare documentation entered by: Pablo Chinchilla [facility] [employer], , Copyright ? 2023 [employer] All Rights Reserved. [id number]:18:34-05:00 [facility]
[2024-06-21] MEDS ORDERED: MORPHINE 4 MG/ML SYR ONE ×2 (21:36→23:14)
[2024-06-21] MEDS ORDERED: ONDANSETRON 4 MG/2 ML VIAL ONE (21:37)
[2024-06-21 21:52] LABS: Absolute Basophils 0.1 K/uL (0-0.5); Absolute Eosinophils 0.2 K/uL (0-0.5); Absolute Lymphocytes (CBC) 3.3 K/uL (0.7-4.9); Absolute Monocytes 0.7 K/uL (0.1-1.3); Absolute Neutrophil 11.1 K/uL (1.8-8.0); Basophils % 0.4 % (0-1.3); Eosinophils % 1.4 % (0-4.4); Hematocrit 36.9 % (36.0-45.0); Hemoglobin 11.9 g/dL (12.0-15.0); Lymphocytes % 21.6 % (15.3-44.8); MCH 30.5 pg (27.0-35.0); MCHC 32.2 g/dL (32.0-36.0); MCV 94.7 fL (80-100); MPV 7.9 fL (7.6-11.3); Monocytes % 4.5 % (3.3-12.3); Neutrophils % 72.1 % (41.7-73.7); Nucleated Red Blood Cells % 0.1 % (0-0); Platelets 418 thou/uL (152-406); Red Cell Distribution Width 17.8 % (12.1-15.2)
[2024-06-21 22:10] LABS: AST/SGOT 16 U/L (15-37); Albumin 2.8 g/dL (3.4-5.0); Albumin/Globulin Ratio 0.4 (1.1-1.8); Alkaline Phosphatase 105 U/L (45-117); Anion Gap 10.3 mEq/L (5.0-15.0); BUN Blood Urea Nitrogen 30 mg/dL (7-18); Bicarbonate 24 mEq/L (21-32); Bilirubin Total 0.4 mg/dL (0.2-1.0); Globulin 6.7 g/dL (2.3-3.5); Glomerular Filtration Rate 86 ml/min (=/>90); Glucose Level 100 mg/dL (74-106); Potassium 4.3 mEq/L (3.5-5.1); Protein, Total 9.5 g/dL (6.4-8.2); Sodium Level 130 mEq/L (136-145); Troponin High Sensitivity 15.6 pg/mL (<58.9)
[2024-06-21 22:12] LABS: PT Prothrombin Time 29.3 SECONDS (10-13.0); PTT, Activated Partial Thromb 35.6 SECONDS (27.2-37.4); Protime INR 2.69
[2024-06-21 22:15] LABS: ALT/SGPT < 14 U/L (13-56)
--- NOTE | 2024-06-21 22:32 | RAD REPORT ---
EXAM: Chest Single View HISTORY: 73 years Female altered mental status COMPARISON: 05/08/2024 FINDINGS: LUNGS/PLEURA: Vascular congestion versus mild edema. CARDIAC/MEDIASTINUM: Mild cardiomegaly UPPER ABDOMEN: No significant abnormality. BONES: No acute abnormality. LINES/TUBES/OTHER: N/A IMPRESSION: Vascular congestion versus mild edema. No consolidative airspace disease.
[2024-06-22] MEDS ORDERED: VANCOMYCIN 1 GM/VIAL ONE ×2 (01:24→14:47)
[2024-06-22] MEDS ORDERED: NA CHLORIDE 0.9% 100 ML ONE ×2 (01:25→09:34)
[2024-06-22] MEDS ORDERED: NA CHLORIDE 0.9% 500 ML ONE (01:25)
[2024-06-22] MEDS ORDERED: VANCOMYCIN 500 MG/VIAL ONE (01:25)
[2024-06-22] MEDS ORDERED: CEFAZOLIN SODIUM 2 GM/VIAL ONE (01:26)
[2024-06-22] MEDS ORDERED: LORazepam 2 MG/ML VIAL ONE (03:31)
--- NOTE | 2024-06-22 05:13 | RAD REPORT ---
EXAM: CT Head Without Intravenous Contrast CLINICAL HISTORY: The patient is 73 years old and is Female; AMS. TECHNIQUE: Axial computed tomography images of the head/brain without intravenous contrast. Sagit lino and coronal reformatted images were created and reviewed. This CT exam was performed using one or more of the following dose reduction techniques: automated exposure control, adjustment of t he mA and/or kV according to patient size, and/or use of iterative reconstruction technique. COMPARISON: CT Head 12/02/2023. FINDINGS: Brain: Unremarkable. No hemorrhage. No significant white matter disease. No edema. Ventricles: Unremarkable. No ventriculomegaly. Bones/joints: Unremarkable. No acute skull fracture. Soft tissues: Unremarkable. Sinuses: Unremarkable as visualized. No acute sinusitis. Mastoid air cells: No significant mastoid fluid. Dental: Extensive dental disease. IMPRESSION: No acute intracranial findings. No hemorrhage. Electronically signed by: Molly Ham MD 06/22/2024 04:55 AM CDT RP V2 Due to temporary technical issues with the PACS/[employer] reporting system, reports are being josef d by the in-house radiologist without review as a courtesy to ensure prompt reporting the interpreting radiologist is fully responsible for the content of the report. Transcribed Date/Time: 06/22/2024 5:13 AM
--- NOTE | 2024-06-22 05:41 | RAD REPORT ---
CLINICAL HISTORY: Decubitus wound. COMPARISON: CT Abdomen Pelvis 12/02/2023. TECHNIQUE: CT ABDOMEN PELVIS WITH IV CONTRAST on 06/22/2024 12:53 AM CDT This exam was performed according to our departmental dose-optimization program, which includes autom ated exposure control, adjustment of the mA and/or kV according to patient size and/or use of iterative reconstruction technique. FINDINGS: Lower lungs are clear. Abdomen: The liver is normal in appearance. There is no biliary dilatation. There is a moderate hiata l hernia. Gallbladder is distended containing a large gallstone. Distal colectomy was performed. The pancreas and spleen are normal in appearance. The adrenal glands and kidneys are unremarkable. Abdominal aorta is normal in course and caliber without aneurysm. There is no free air. There is no r etroperitoneal adenopathy. There is a left anterior abdominal wall colostomy. Pelvis: There is mild scattered diverticulosis of the colon. Urinary bladder is unremarkable. There i s no free fluid. Appendix is normal. Skeleton: There are no acute osseous findings. No suspicious bony lesions. IMPRESSION: No acute inflammatory process. Cholelithiasis. Electronically signed by: Derick Jay MD 06/22/2024 05:38 AM CDT RP Due to temporary technical issues with the PACS/[employer] reporting system, reports are being josef d by the in-house radiologist without review as a courtesy to ensure prompt reporting the interpreting radiologist is fully responsible for the content of the report. Transcribed Date/Time: 06/22/2024 5:41 AM
--- NOTE | 2024-06-22 05:56 | EDPHYS ---
Physician Documentation [facility] Name: Gwendolyn Mercado Age: 73 yrs Sex: Female : 1950 Arrival Date: 06/21/2024 Time: 20:58 Bed 18 Private MD: ED Physician Humberto Rios HPI: 06/21 21:35 This 73 yrs old Female presents to ER via EMS with complaints of Altered Mental Status. cp 21:35 The patient presents with confusion. cp 21:35 Onset: The symptoms/episode began/occurred at an unknown time. Possible causes: sepsis, cp the patient lives in a mcc. 21:35 Associated signs and symptoms: Pertinent positives: pain to buttocks. cp 21:35 Current symptoms: In the emergency department the patient's symptoms are unchanged from cp the initial presentation, despite EMS interventions. Historical: - Allergies: 21:17 No Known Allergies; rg5 - Home Meds: 21:17 Eliquis oral [Active]; Metoprolol Tartrate Oral [Active]; quetiapine oral [Active]; rg5 - PMHx: 21:17 Atrial fibrillation; bowel incontinence; Hypertensive disorder; prolapsed urethra; rg5 - PSHx: 21:17 section; tubal ligation; rg5 - Immunization history:: Adult Immunizations up to date. - Infectious Disease History:: Denies. - Social history:: Smoking status: unknown. ROS: 21:40 Neuro: Positive for altered mental status, cp 21:40 Constitutional: Negative for fever, cp 21:40 Cardiovascular: Negative for chest pain, 21:40 Abdomen/GI: Negative for vomiting, diarrhea, constipation, 21:40 Unable to obtain ROS due to altered mental status, Exam: 21:40 ECG was reviewed by the Attending Physician. cp 21:45 Constitutional: The patient appears in no acute distress, alert, awake, cp non-diaphoretic, non-toxic, well developed, well nourished, morbid obesity 21:45 Head/Face: Normocephalic, atraumatic. cp 21:45 Eyes: Periorbital structures: appear normal, Pupils: equal, round, and reactive to light and accomodation, Conjunctiva: normal, no exudate, no injection, Sclera: no appreciated abnormality, Lids and lashes: appear normal, bilaterally, 21:45 ENT: External ear(s): are unremarkable, Nose: is normal, Mouth: Lips: moist, Oral mucosa: moist, Posterior pharynx: Airway: no evidence of obstruction, patent, 21:45 Neck: ROM/movement: is normal, is supple, without pain, no range of motions limitations, no meningismus, 21:45 Chest/axilla: Inspection: normal, 21:45 Cardiovascular: Rate: normal, Rhythm: regular, JVD: is not appreciated, 21:45 Respiratory: the patient does not display signs of respiratory distress, Respirations: normal, no use of accessory muscles, no retractions, labored breathing, is not present, Breath sounds: decreased breath sounds, that are mild, throughout, wheezing: is not appreciated, 21:45 Abdomen/GI: Inspection: abdomen appears normal, Bowel sounds: active, all quadrants, Palpation: abdomen is soft and non-tender, in all quadrants, 21:45 Neuro: Orientation: to person, 21:45 Skin: golfball size open wound noted sacral area, erythema noted of buttocks, purulent cp drainage from wound. Vital Signs: 21:17 BP 131 / 66; Pulse 87; Resp 18 S; Temp 96.9(A); Pulse Ox 100% ; Weight 130.63 kg (M); sa1 Height 5 ft. 7 in. (R); 06/22 01:30 BP 139 / 73; Pulse 87; Resp 18; Temp 98; Pulse Ox 97% on R/A; Pain 0/10; rg5 03:30 BP 135 / 82; Pulse 70; Resp 18; Pulse Ox 98% on R/A; Pain 0/10; rg5 06/21 21:17 Body Mass Index 45.11 (130.63 kg, 170.18 cm) [facility] 06/22 01:30 Pain Scale: Adult rg5 03:30 Pain Scale: Adult rg5 MDM: 06/21 21:10 Medical Screening Exam initiated 22:00 Differential Diagnosis: electrolyte abnormality, pneumonia, sepsis, UTI, volume cp depletion. 06/22 05:35 Data reviewed: vital signs, nurses notes, lab test result(s), EKG, radiologic studies, cp CT scan, plain films, and as a result, I will admit patient. 05:35 I considered the following discharge prescriptions or medication management in the emergency department Medications were administered in the Emergency Department. See MAR. Independent interpretation of the following test(s) in the Emergency Department EKG: See my EKG interpretation above. Care significantly affected by the following chronic conditions: Hypertension, Obesity. Response to treatment: the patient's symptoms have mildly improved after treatment. 05:56 Medical Screening Exam initiated cp 06/21 21:31 Order name: Blood Culture Adult (2) cp 06/21 21:31 Order name: CBC with Diff; Complete Time: 23:28 cp 06/22 05:32 Interpretation: Normal except: WBC 15.40; HGB 11.9; PLT 418; RDW 17.8; NEUT A 11.1; cp Reviewed. 06/21 21:31 Order name: CMP; Complete Time: 23:28 cp 06/22 05:32 Interpretation: Normal except: NA 130; BUN 30; GFR 86; CA 11.7; TP 9.5; ALB 2.8; GLOB cp 6.7; A/G 0.4. 06/21 21:31 Order name: Lactate w/ 2H reflex if indic.; Complete Time: 23:28 cp 06/22 05:32 Interpretation: Reviewed. cp 06/21 21:31 Order name: Protime (+inr); Complete Time: 23:28 cp 06/22 05:32 Interpretation: Reviewed. cp 06/21 21:31 Order name: Ptt, Activated; Complete Time: 23:28 cp 06/21 21:31 Order name: Urinalysis w/ reflexes cp 06/21 21:31 Order name: Troponin High Sensitivity; Complete Time: 23:28 cp 06/22 06:59 Order name: Basic Metabolic Panel EDMS 06/22 06:59 Order name: Basic Metabolic Panel EDMS 06/22 06:59 Order name: Basic Metabolic Panel EDMS 06/22 06:59 Order name: Basic Metabolic Panel EDMS 06/22 06:59 Order name: Basic Metabolic Panel EDMS 06/22 06:59 Order name: Basic Metabolic Panel EDMS 06/22 06:59 Order name: Basic Metabolic Panel EDMS 06/22 06:59 Order name: Basic Metabolic Panel EDMS 06/22 06:59 Order name: CBC with Automated Diff EDMS 06/22 06:59 Order name: CBC with Automated Diff EDMS 06/22 06:59 Order name: CBC with Automated Diff EDMS 06/22 06:59 Order name: CBC with Automated Diff EDMS 06/22 06:59 Order name: CBC with Automated Diff EDMS 06/22 06:59 Order name: CBC with Automated Diff EDMS 06/22 06:59 Order name: CBC with Automated Diff EDMS 06/22 06:59 Order name: CBC with Automated Diff EDMS 06/21 21:31 Order name: Chest Single View XRAY; Complete Time: 23:28 cp 06/22 00:53 Order name: CT Head Brain wo Cont; Complete Time: 05:22 cp 06/22 00:53 Order name: CT Abd/Pelvis - IV Contrast Only; Complete Time: 06:05 cp 06/21 21:31 Order name: Accucheck; Complete Time: 22:24 cp 06/21 21:31 Order name: Cardiac monitoring; Complete Time: 21:36 cp 06/21 21:31 Order name: EKG - Nurse/Tech; Complete Time: 21:35 cp 06/21 21:31 Order name: IV Saline Lock - Large Bore; Complete Time: 21:36 cp 06/21 21:31 Order name: Labs collected and sent; Complete Time: 21:58 cp 06/21 21:31 Order name: O2 Per Protocol; Complete Time: 21:36 cp 06/21 21:31 Order name: O2 Sat Monitoring; Complete Time: 21:36 cp 06/21 21:31 Order name: Vital Signs; Complete Time: 21:36 cp 06/22 00:51 Order name: Wound dressing; Complete Time: 01:20 cp 06/22 00:52 Order name: Cote; Complete Time: 06:43 cp EC/28 21:40 Rate is 87 beats/min. Rhythm is irregular. QRS interval is normal. QT interval is cp normal. Interpreted by me. Reviewed by me. Administered Medications: 06/22 01:00 Drug: ceFAZolin IVPB 2 grams IVPB once over 30 mins; (mix in 100 mL NS) Route: IVPB; rg5 Infused Over: 30 mins; Site: right upper arm; 07:00 Follow up: Response: No adverse reaction; IV Status: Completed infusion db 01:35 Drug: vancoMYCIN IVPB 1.5 grams IVPB at calculated rate once Route: IVPB; Rate: rg5 calculated rate; Site: right upper arm; 07:00 Follow up: Response: No adverse reaction; IV Status: Completed infusion db 03:33 Drug: Ativan IVP 2 mg IVP once Route: IVP; Site: left upper arm; rg5 05:00 Follow up: Response: No adverse reaction rg5 Disposition: 06/23 18:05 Chart complete. cp Disposition Summary: 06/22/24 05:56 Hospitalization Ordered Notes: Hospitalization Status: Inpatient Admission cp Provider: Bradley Do cp Condition: Stable cp Problem: new cp Symptoms: have improved cp Bed/Room Type: Standard cp Location: Telemetry/MedSurg (Inpatient)(06/22/24 18:00) em1 Room Assignment: 229(06/22/24 18:00) em1 Diagnosis - Altered mental status, unspecified cp - Pressure ulcer of buttock cp - Cellulitis of buttock cp Discharge Instructions: - Discharge Summary Sheet sp - Cellulitis, Adult, Clxc-bi-Jbeu sp Forms: - Medication Reconciliation Form cp - SBAR form cp - Leadership Thank You Letter cp Addendum: 06/25/2024 15:36 Co-signature as Attending Physician, Humberto Rios MD I agree with the assessment and c harding plan of care. Signatures: Dispatcher [employer] EDLorna Torres, RN RN Humberto Alberto MD MD cha Pinkerton, Shawna sp Martinez, Eric em1 Humberto Fenton PA PA cp Concha Bustamante, LUC CALLE Octaviano Urrutia RN RN rg5 Rukhsana Estes RN db Corrections: (The following items were deleted from the chart) 06/21 21:31 21:31 BLOOD CULTURE*+BA.LAB.BRZ ordered. EDMS EDMS 21:31 21:31 CBC+H.LAB.BRZ ordered. EDMS EDMS 21:31 21:31 COMPREHENSIVE METABOLIC PANEL+C.LAB.BRZ ordered. EDMS EDMS 21:31 21:31 LACTATE+C.LAB.BRZ ordered. EDMS EDMS 21:31 21:31 PROTIME (+INR)+COAG.LAB.BRZ ordered. EDMS EDMS 21:31 21:31 PTT, ACTIVATED+COAG.LAB.BRZ ordered. EDMS EDMS 21:31 21:31 Urinalysis+U.LAB.BRZ ordered. EDMS EDMS 21:31 21:31 Troponin High Sensitivity+C.LAB.BRZ ordered. EDMS EDMS 21:31 21:31 Chest Single View+RAD.RAD.BRZ ordered. EDMS EDMS 06/22 05:32 05:22 Reviewed. cp cp 08:46 05:56 Telemetry/MedSurg (Inpatient) cp hb 08:46 05:56 cp hb 17:00 08:46 [facility] ER HOLD hb sp 17:00 08:46 ERHOLD- hb sp 17:27 17:00 Telemetry/MedSurg (Inpatient) sp dw 17:27 17:00 223 sp dw 18:00 17:27 [facility] ER HOLD dw em1 18:00 17:27 dw em1
--- NOTE | 2024-06-22 05:56 | ER ---
Nurse's Notes [facility] Name: Gwendolyn Mercado Age: 73 yrs Sex: Female : 1950 Arrival Date: 06/21/2024 Time: 20:58 Bed 18 Private MD: Diagnosis: Altered mental status, unspecified;Pressure ulcer of buttock;Cellulitis of buttock Presentation: 06/21 21:05 Chief complaint: EMS states: PT has been having altered mental stautus, refusing rg5 treatment \T\ medications from the jail facility. 21:05 Coronavirus screen: Client denies travel out of the [place] in the last 14 days. Ebola rg5 Screen: Patient negative for fever greater than or equal to 101.5 degrees Fahrenheit, and additional compatible Ebola Virus Disease symptoms Patient denies exposure to infectious person. Patient denies travel to an Ebola-affected area in the 21 days before illness onset. Initial Sepsis Screen: Does the patient meet any 2 criteria? No. Patient's initial sepsis screen is negative. Does the patient have a suspected source of infection? No. Patient's initial sepsis screen is negative. Risk Assessment: Do you want to hurt yourself or someone else? Patient reports no desire to harm self or others. Onset of symptoms was June 21, 2024. 21:05 Method Of Arrival: EMS: [facility] rg5 21:05 Acuity: [place] 3 rg5 Triage Assessment: 21:17 General: Appears uncomfortable, Behavior is restless, uncooperative, Smells of. Pain: rg5 Complains of pain in buttocks. EENT: No deficits noted. Neuro: Level of Consciousness is awake, alert, obeys commands, Oriented to person, place. Cardiovascular: Denies chest pain. Respiratory: Airway is patent Trachea midline Respiratory effort is even, unlabored, Respiratory pattern is regular, symmetrical. GI: Abdomen is round non-distended. :. Historical: - Allergies: 21:17 No Known Allergies; rg5 - Home Meds: 21:17 Eliquis oral [Active]; Metoprolol Tartrate Oral [Active]; quetiapine oral [Active]; rg5 - PMHx: 21:17 Atrial fibrillation; bowel incontinence; Hypertensive disorder; prolapsed urethra; rg5 - PSHx: 21:17 section; tubal ligation; rg5 - Immunization history:: Adult Immunizations up to date. - Infectious Disease History:: Denies. - Social history:: Smoking status: unknown. Screenin:10 [facility] ED Fall Risk Assessment (Adult) History of falling in the last 3 months, rg5 including since admission No falls in past 3 months (0 pts) Confusion or Disorientation Yes (5 pts) Intoxicated or Sedated No (0 pts) Impaired Gait Yes (1 pt) Mobility Assist Device Used Yes (1 pt) Altered Elimination Yes (1 pt) Score/Fall Risk Level 3 or more points = High Risk Oriented to surroundings, Maintained a safe environment, Educated pt \T\ family on fall prevention, incl call for assistance when getting out of bed, Assessed \T\ reinforced patient's understanding of fall precautions, Hourly rounding (assess needs \T\ fall precautionary measures) done. 21:10 Abuse screen: Denies threats or abuse. Nutritional screening: No deficits noted. rg5 Tuberculosis screening: No symptoms or risk factors identified. Assessment: 06/22 00:00 Reassessment: No changes from previously documented assessment. Patient and/or family rg5 updated on plan of care and expected duration. Pain level reassessed. 01:00 Reassessment: No changes from previously documented assessment. Patient and/or family rg5 updated on plan of care and expected duration. Pain level reassessed. 01:04 General: Khanh [phone]. bm8 02:00 Reassessment: No changes from previously documented assessment. Patient and/or family rg5 updated on plan of care and expected duration. Pain level reassessed. Patient is alert, oriented x 3, equal unlabored respirations, skin warm/dry/pink. 03:00 Reassessment: No changes from previously documented assessment. Patient and/or family rg5 updated on plan of care and expected duration. Pain level reassessed. Patient is alert, oriented x 3, equal unlabored respirations, skin warm/dry/pink. 04:00 Reassessment: No changes from previously documented assessment. Patient and/or family rg5 updated on plan of care and expected duration. Pain level reassessed. Patient is alert, oriented x 3, equal unlabored respirations, skin warm/dry/pink. 05:00 Reassessment: No changes from previously documented assessment. Patient and/or family rg5 updated on plan of care and expected duration. Pain level reassessed. Patient is alert, oriented x 3, equal unlabored respirations, skin warm/dry/pink. 06:44 Reassessment: No changes from previously documented assessment. Patient and/or family rg5 updated on plan of care and expected duration. Pain level reassessed. Patient is alert, oriented x 3, equal unlabored respirations, skin warm/dry/pink. 07:15 Reassessment: SEE [facility] FOR CONTINUED DOCUMENTATION. db Vital Signs: 06/21 21:17 BP 131 / 66; Pulse 87; Resp 18 S; Temp 96.9(A); Pulse Ox 100% ; Weight 130.63 kg (M); sa1 Height 5 ft. 7 in. (R); 06/22 01:30 BP 139 / 73; Pulse 87; Resp 18; Temp 98; Pulse Ox 97% on R/A; Pain 0/10; rg5 03:30 BP 135 / 82; Pulse 70; Resp 18; Pulse Ox 98% on R/A; Pain 0/10; rg5 06/21 21:17 Body Mass Index 45.11 (130.63 kg, 170.18 cm) [facility] 06/22 01:30 Pain Scale: Adult rg5 03:30 Pain Scale: Adult rg5 ED Course: 06/21 21:05 Patient arrived in ED. jj6 21:09 Arm band placed on. rg5 21:09 EKG completed in triage. Results shown to MD. rg5 21:10 Humberto Fenton PA is PHCP. cp 21:10 Humberto Rios MD is Attending Physician. cp 21:10 Patient has correct armband on for positive identification. Placed in gown. Bed in low rg5 position. Call light in reach. Side rails up X2. Door closed. Noise minimized. Warm blanket given. 21:10 No provider procedures requiring assistance completed. Inserted saline lock: 20 gauge rg5 in right upper arm, using aseptic technique. Blood collected. Flushed with 10 mL NS. 21:13 Octaviano Urrutia, RN is Primary Nurse. rg5 21:17 Triage completed. rg5 22:27 Chest Single View XRAY In Process Unspecified. EDMS 06/22 03:[address] via stretcher. rg5 03:25 Patient moved back from CT. rg5 04:17 CT Head Brain wo Cont In Process Unspecified. EDMS 04:17 CT Abd/Pelvis - IV Contrast Only In Process Unspecified. EDMS 05:54 Bradley Do FNP-C is Hospitalizing Provider. cp 06:30 Cote cath inserted, using sterile technique, 16 Fr., by me, by ED staff, balloon rg5 inflated, to gravity drainage, urine specimen collected. 06:46 Provided Education on: needs for admit. rg5 06:46 Patient admitted, IV remains in place. intact, No redness/swelling at site. rg5 Administered Medications: 01:00 Drug: ceFAZolin IVPB 2 grams IVPB once over 30 mins; (mix in 100 mL NS) Route: IVPB; rg5 Infused Over: 30 mins; Site: right upper arm; 07:00 Follow up: Response: No adverse reaction; IV Status: Completed infusion db 01:35 Drug: vancoMYCIN IVPB 1.5 grams IVPB at calculated rate once Route: IVPB; Rate: rg5 calculated rate; Site: right upper arm; 07:00 Follow up: Response: No adverse reaction; IV Status: Completed infusion db 03:33 Drug: Ativan IVP 2 mg IVP once Route: IVP; Site: left upper arm; rg5 05:00 Follow up: Response: No adverse reaction rg5 Medication: 06/21 22:30 VIS not applicable for this client. rg5 Outcome: 06/22 05:56 Decision to Hospitalize by Provider. cp 06:46 Admitted to ER Hold. Please see [facility] for further documentation. rg5 06:46 Condition: stable 06:46 Instructed on the need for admit, 18:25 Admitted to Med/surg accompanied by tech, via stretcher, room 229, with chart, Report db called to JUAN RAMON HANDXED 18:25 Patient left the ED. db Signatures: Dispatcher [employer] EDMN Humberto Fenton PA PA cp Jeffries, Jennifer jj6 Rukhsana Estes, RN RN Arsenio Camacho, LUC CALLE bm8 Octaviano Urrutia, RN RN rg5 Sultan paloma Meza1 Corrections: (The following items were deleted from the chart) 17:44 17:29 Reassessment: SEE BLOOD TRANSFUSION RECORD FOR 2ND UNIT OF BLOOD STARTED BY julianna EDUCATION ADMINISTRATIVE ASSISTANT. db
[2024-06-22] MEDS ORDERED: WATER FOR INJ,STERILE 10 ML ONE (06:31)
[2024-06-22 06:58] LABS: Specific Gravity 1.015 (1.005-1.030); Urine Bacteria 20-50 /HPF (<20); Urine Bilirubin NEGATIVE (Negative); Urine Blood 1+ (Negative); Urine Clarity Extremely Turbid (Clear); Urine Color Yellow (Yellow); Urine Culture Reflex Order REFLEXED; Urine Glucose NEGATIVE (Negative); Urine Ketones NEGATIVE (Negative); Urine Microscopic Reflex YN ORDER UMIC; Urine Mucus Slight /HPF (None Seen); Urine Nitrite NEGATIVE (Negative); Urine Protein 1+ (Negative); Urine RBC <5 /HPF (None Seen); Urine Urobilinogen Normal (Normal); Urine WBC >50 /HPF (<5); Urine WBC Clump Rare /HPF (None Seen)
[2024-06-22] MEDS: APIXABAN 5 MG TABLET PO SCH (09:00)
[2024-06-22] MEDS: MORPHINE *EXTENDED RELEASE* 15 MG TAB PO SCH (09:00)
[2024-06-22] MEDS: NA CHLORIDE 0.9% 1,000 ML IV SCH (09:00)
[2024-06-22] MEDS: CEFEPIME 1 GM in NA CHLORIDE 0.9% 100 ML IV SCH (09:30)
[2024-06-22] MEDS ORDERED: NA CHLORIDE 0.9% 1,000 ML ONE (09:34)
[2024-06-22] MEDS ORDERED: MORPHINE *EXTENDED RELEASE* 15 MG TAB PO ONE (09:34)
[2024-06-22] MEDS ORDERED: APIXABAN 5 MG TABLET ONE (09:34)
[2024-06-22] MEDS ORDERED: CEFEPIME 1 GM/VIAL ONE (09:35)
[2024-06-22] MEDS ORDERED: NA CHLORIDE 0.9% 250 ML ONE (14:47)
[2024-06-22] MEDS: VANCOMYCIN 1 GM in NA CHLORIDE 0.9% 250 ML IVPB SCH (15:00)
--- NOTE | 2024-06-22 16:53 | P.HP ---
Certification for Inpatient Patient admitted to: Inpatient With expected LOS: >2 Midnights Patient will require the following post-hospital care: None Practitioner: I am a practitioner with admitting privileges, knowledge of patient current condition, hospital course, and medical plan of care. Services: Services provided to patient in accordance with Admission requirements found in Title 42 Section 412.3 of the Code of Federal Regulations Patient History Date of Service: 06/22/24 Reason for admission: UTI, AMS History of Present Illness: 73-year-old female history of dementia, atrial fibrillation, colostomy bedbound presents emergency department with chief complaint of concern for infection from long term. She was evaluated in the emergency department her labs are significant for leukocytosis with white blood cell count of 15.4 hemoglobin 11.9 sodium 130 lactic acid 1.3 UA concerning for urinary tract infection. She also has a known sacral decubitus ulceration which does not appear obviously infected at this time. CT of the abdomen and pelvis was obtained which was negative for acute findings CT head also obtained resulted negative. Patient with AMS, confusion, UTI will be admitted for further management. Allergies Sulfa (Sulfonamide Antibiotics) Adverse Reaction (Verified 05/09/24 00:24) Hives/Rash Home Medications: Acetaminophen [Tylenol Extra Strength] 500 mg PO DAILYPRN PRN 05/09/24 Guaifenesin [Mucinex] 1 tab PO BIDP PRN 05/09/24 Apixaban [Eliquis] 5 mg PO BID 05/11/24 Sucralfate [Carafate*] 1 gm PO ACHS 05/11/24 Sharath [Sharath*] 1 pkt PO BID #60 packet 05/16/24 Potassium Oral Tab [Klor-Con 10 mEq Tab*] 20 meq PO BID #60 tab 05/16/24 Spironolactone [Aldactone*] 25 mg PO DAILY #30 tab 05/16/24 Amox/Clavulanate [Augmentin 875-125 Tab] 875 mg PO BID #14 tab 05/17/24 Apixaban [Eliquis] 5 mg PO BID 06/22/24 Benzonatate [Tessalon Perle*] 100 mg PO TID 06/22/24 Escitalopram Oxalate [Lexapro] 10 mg PO DAILY 06/22/24 Morphine *Extended Release* [MS Contin*] 15 mg PO BID 06/22/24 - Past Medical/Surgical History Diabetic: No -: A-fib, ,,prolapsed urethra, , -: bowel incontinence -: HTN -: Csection -: tubal ligation. -: Colostomy Psychosocial/ Personal History: [facility] resident - Social History Smoking Status: Never smoker Alcohol use: No CD- Drugs: No Caffeine use: Yes Place of Residence: Assisted Review of Systems is unable to be obtained Physical Examination - Vital Signs Temperature: 98.4 F Blood Pressure: 120/69 Pulse: 80 Respirations: 16 Pulse Ox (%): 100 - Physical Exam General: Alert, In no apparent distress, Oriented x2 HEENT: Atraumatic, PERRLA, EOMI Neck: Supple, 2+ carotid pulse no bruit Respiratory: Clear to auscultation bilaterally, Normal air movement Cardiovascular: Regular rate/rhythm, Normal S1 S2 Gastrointestinal: Normal bowel sounds, No tenderness Musculoskeletal: No tenderness Integumentary: Other (Sacral decubitus ulceration present) Neurological: Normal gait, Normal speech, Normal strength at 5/5 x4 extr - Studies Laboratory Data (last 24 hrs) 06/21/24 06/21/24 06/21/24 21:55 21:33 21:33 WBC 15.40 H Hgb 11.9 L Hct 36.9 Plt Count 418 H PT 29.3 H INR 2.69 APTT 35.6 Sodium 130 L Potassium 4.3 BUN 30 H Creatinine 0.73 Glucose 100 Total Bilirubin 0.4 AST 16 ALT < 14 Alkaline Phosphatase 105 Assessment and Plan - Plan Assessment: Acute metabolic encephalopathy UTI Colostomy status Dementia Atrial fibrillation on chronic anticoagulation Sacral decubitus ulceration Plan: Acute metabolic encephalopathy UTI Blood and urine cultures obtainedfollow Started on broad-spectrum antibiotics for now Monitor fever trend/CBC Colostomy status Noted Dementia Atrial fibrillation on chronic anticoagulation Continue home medications Sacral decubitus ulceration General Surgery consulted/following DVT PPX: Eliquis Code status: Full Discharge Plan: Assisted Plan to discharge in: Greater than 2 days - Advance Directives Does patient have a Living Will: No Does patient have a Durable POA for Healthcare: No - Code Status/Comfort Care Code Status Assessed: Yes (Full code) Critical Care: No Time Spent Managing Pts Care (In Minutes): 65
[2024-06-23 06:39] LABS: Absolute Eosinophils 0.3 K/uL (0-0.5); Absolute Monocytes 0.6 K/uL (0.1-1.3); Absolute Neutrophil 9.8 K/uL (1.8-8.0); Basophils % 0.3 % (0-1.3); Eosinophils % 2.4 % (0-4.4); Hematocrit 34.5 % (36.0-45.0); Hemoglobin 11.3 g/dL (12.0-15.0); Lymphocytes % 15.8 % (15.3-44.8); MCH 30.4 pg (27.0-35.0); MCHC 32.7 g/dL (32.0-36.0); MPV 7.4 fL (7.6-11.3); Monocytes % 4.4 % (3.3-12.3); Neutrophils % 77.1 % (41.7-73.7); Platelets 415 thou/uL (152-406); RBC Red Blood Cell Count 3.71 M/uL (3.86-4.86); Red Cell Distribution Width 17.8 % (12.1-15.2)
[2024-06-23 06:55] LABS: Anion Gap 11.1 mEq/L (5.0-15.0); Potassium 4.1 mEq/L (3.5-5.1)
--- NOTE | 2024-06-23 12:30 | P.PN ---
Subjective Date of Service: 06/23/24 Chief Complaint: UTI, AMS Subjective: No new changes Physical Examination - Vital Signs Temperature: 97.5 F Blood Pressure: 119/62 Pulse: 101 Respirations: 19 Pulse Ox (%): 97 - Physical Exam General: Alert, In no apparent distress, Confused Respiratory: Clear to auscultation bilaterally Integumentary: Other (No change in sacral wound from previous exam.) Assessment And Plan - Current Problems (Diagnosis) (1) Wound of sacral region Current Visit: Yes Status: Acute Plan: -Continue medical management for comorbid medical conditions. -Pressure reduction strategies including rolling patient every 2 hours, air mattress, dressing changes to be done today, -Recommend wound VAC transition tomorrow with black foam settings and orders placed. -Will follow.
--- NOTE | 2024-06-23 14:05 | P.PN ---
Date of Service: 06/23/24 Subjective: No acute events overnight Refusing vital signs this morning ROS: 10 point ROS as noted above, otherwise negative Physical exam GEN: Alert, confused, NAD HEENT: Normal conjunctiva, sclera anicteric CV: Regular rate and rhythm, no edema Pulm: Nonlabored respirations on room air ABD: Soft, nontender, nondistended, colostomy in place, Cote catheter in place MSK: No joint tenderness Integumentary: No rashes Neuro: Normal speech, normal affect Vitals reviewed Assessment: Acute metabolic encephalopathy UTI Colostomy status Dementia Atrial fibrillation on chronic anticoagulation Sacral decubitus ulceration Plan: Acute metabolic encephalopathy UTI Blood and urine cultures obtainedfollow no growth in 24 hours on blood cultures Started on broad-spectrum antibiotics for now Monitor fever trend/CBC Colostomy status Noted Dementia Atrial fibrillation on chronic anticoagulation Continue home medications Sacral decubitus ulceration General Surgery consulted/following Plan for wound VAC placement DVT PPX: Eliquis Code status: Full Discharge Plan: Detention Plan to discharge in: Greater than 2 days Time Spent Managing Pts Care (In Minutes): 35
--- NOTE | 2024-06-23 15:16 | CON ---
Date of Consultation: 06/22/2024 Brief History Of Present Illness: The patient is a 73-year-old female with a history of significant dementia, atrial fibrillation, colostomy, bedbound, who presents to the emergency department with chi ef complaints or concerns of infection from a shelter. She was evaluated in the emergency depar tment and found to have leukocytosis, probably significant urinary tract infection. Wound was noted also on her sacral/buttock area. As such, I am consulted to see her for this wound on her buttock/sa cral area. The patient is confused, argumentative. Does not answer questions appropriately. Mainly only shouts no to most commands. As such, most of the information is obtained from the chart. Past Medical History: Atrial fibrillation, prolapsed urethra, bowel incontinence, hypertension, geneva ntia, atrial fibrillation. Past Surgical History: Includes colostomy creation, tubal ligation, and . Social History: She is in a shelter resident. Unable to obtain information about smoking, recr eational drug use. Review of Systems: 10-point review of systems unable to obtain. Allergies: TO SULFA. Home Medications: Include Tylenol, Mucinex, , KCl, Aldactone, Augmentin, Tessalon, Lexapro , and morphine. Physical Examination: General: At the time of my examination, the patient is awake, alert, but oriented only x1. During m y examination, she is argumentative and combative. HEENT: Otherwise, normocephalic. Her sclerae were anicteric. Mucous membranes are moist. Orophary nx is clear. Neck: Supple without JVD. Chest: Has normal expansion and excursion. Cardiovascular: Regular rate and rhythm. Pulmonary: Clear to auscultation bilaterally. Abdomen: Soft. She has a colostomy in the left lower quadrant. Significant well-healed surgical sc ars were evident on the abdomen. She has a large pannus and likely hernia in the midline area, but d ifficult to examine due to patient's combativeness. Focused examination of the back shows a grade 2/ 3, predominantly grade 3 sacral decubitus ulcer which is clean, red, without evidence of slough, infe ction, odor, or undermining. It is approximately 3.5 cm in size, round. No infectious component. N o significant other effects noted. Laboratory Data: Revealed white blood cell count of 15.4, hemoglobin is 11.9 over hematocrit of 36.9 , platelet count is 418. PT 29.3, INR 2.69, PTT is 35.6. Sodium 130, potassium 4.3, chloride 100, c arbon dioxide 24, BUN 30, creatinine 0.73, glucose 100, lactic acid is 1.3, total bilirubin 0.4, AST 16, ALT less than 40, alkaline phosphatase 104. UA had extremely turbid, 1+ blood, 500 leukocyte est erase, greater than 50 white blood cells, 20 to 50 bacteria, 1+ total protein. She additionally had imaging performed, which included a CT of the head, which is officially read as no acute intracranial findings and no hemorrhage. CT abdomen and pelvis was officially read as cholelithiasis. No acute inflammatory process. Assessment And Plan: This is a 73-year-old woman with dementia from a shelter, who has a stage III decubitus ulcer near the sacrum. 1. IV fluid hydration. 2. Antibiotic coverage. 3. Local wound care with Vashe initially. We will transition to wound VAC black foam tomorrow or day after. I also recommended pressure reduction strategies including air mattress, rolling patient q.2 hours, and offloading to this area. I have explained the risks, benefits, and alternatives of the jacquelyn choi stated plan with the patient. Continue medical management per primary team. Thank you for this interesting consult. ASHA/GENE Voice ID: [id number] Report ID: [id number]
[2024-06-24] MEDS ORDERED: VANCOMYCIN 2 GM in NA CHLORIDE 0.9% 500 ML IVPB SCH (01:00)
[2024-06-24] MEDS: VANCOMYCIN 2 GM in NA CHLORIDE 0.9% 500 ML IVPB SCH (09:50)
--- NOTE | 2024-06-24 11:26 | EKG ---
Test Date: 2024-06-21 Test Time: 21:34:57 Editor City: [place] MEASUREMENT RESULTS: Intervals: Rate: 87 [place]: QRSD: 78 QT: 358 QTc: 430 [place]: P: [place]: QRS: 11 T: -1 INTERPRETIVE STATEMENTS: Atrial fibrillation with premature ventricular or aberrantly conducted complexes Low voltage QRS Septal infarct, age undetermined Abnormal ECG Compared to ECG 05/08/2024 17:41:48 Ventricular premature complex(es) now present Myocardial infarct finding now present Prolonged QT interval no longer present Electronically Signed On 06-24-24 11:20:46 CDT by Moises Whipple
[2024-06-24 12:17] LABS: Absolute Basophils 0.1 K/uL (0-0.5); Absolute Eosinophils 0.4 K/uL (0-0.5); Absolute Lymphocytes (CBC) 1.8 K/uL (0.7-4.9); Absolute Neutrophil 9.6 K/uL (1.8-8.0); Basophils % 0.6 % (0-1.3); Eosinophils % 3.4 % (0-4.4); Hemoglobin 10.8 g/dL (12.0-15.0); Lymphocytes % 13.9 % (15.3-44.8); MCH 29.8 pg (27.0-35.0); MCHC 31.8 g/dL (32.0-36.0); MCV 93.8 fL (80-100); MPV 7.8 fL (7.6-11.3); Monocytes % 7.6 % (3.3-12.3); Neutrophils % 74.5 % (41.7-73.7); Nucleated Red Blood Cells % 0.1 % (0-0); Platelets 380 thou/uL (152-406); RBC Red Blood Cell Count 3.62 M/uL (3.86-4.86); Red Cell Distribution Width 17.3 % (12.1-15.2)
[2024-06-24 12:24] LABS: Anion Gap 9.7 mEq/L (5.0-15.0); Potassium 3.7 mEq/L (3.5-5.1)
--- NOTE | 2024-06-24 13:35 | P.PN ---
Date of Service: 06/24/24 Subjective: No acute events overnight Still confused/encephalopathic ROS: 10 point ROS as noted above, otherwise negative Physical exam GEN: Alert, confused, NAD HEENT: Normal conjunctiva, sclera anicteric CV: Regular rate and rhythm, no edema Pulm: Nonlabored respirations on room air ABD: Soft, nontender, nondistended, colostomy in place, Cote catheter in place MSK: No joint tenderness Integumentary: No rashes Neuro: Normal speech, normal affect Vitals reviewed Assessment: Acute metabolic encephalopathy UTI Colostomy status Dementia Atrial fibrillation on chronic anticoagulation Sacral decubitus ulceration Plan: Acute metabolic encephalopathy UTI Urine culture grew E. coli, continue appropriate biotics no growth in 24 hours on blood cultures Started on broad-spectrum antibiotics for now Monitor fever trend/CBC Colostomy status Noted Dementia Atrial fibrillation on chronic anticoagulation Continue home medications Sacral decubitus ulceration General Surgery consulted/following Plan for wound VAC placement DVT PPX: Eliquis Code status: Full Discharge Plan: Care Home Plan to discharge in: Greater than 2 days Time Spent Managing Pts Care (In Minutes): 35
[2024-06-24] MEDS: CEFEPIME 2 GM in NA CHLORIDE 0.9% 100 ML IV SCH (21:21)
[2024-06-25 07:46] LABS: Absolute Basophils 0.1 K/uL (0-0.5); Absolute Eosinophils 0.5 K/uL (0-0.5); Absolute Monocytes 0.6 K/uL (0.1-1.3); Absolute Neutrophil 7.8 K/uL (1.8-8.0); Basophils % 0.5 % (0-1.3); Eosinophils % 4.9 % (0-4.4); Hematocrit 33.3 % (36.0-45.0); Hemoglobin 10.9 g/dL (12.0-15.0); Lymphocytes % 18.6 % (15.3-44.8); MCH 30.7 pg (27.0-35.0); MCHC 32.6 g/dL (32.0-36.0); MCV 94.1 fL (80-100); MPV 7.2 fL (7.6-11.3); Monocytes % 5.1 % (3.3-12.3); Neutrophils % 70.9 % (41.7-73.7); Nucleated Red Blood Cells % 0.1 % (0-0); Platelets 393 thou/uL (152-406); RBC Red Blood Cell Count 3.54 M/uL (3.86-4.86); Red Cell Distribution Width 17.3 % (12.1-15.2)
[2024-06-25 08:04] LABS: Anion Gap 11.6 mEq/L (5.0-15.0); Potassium 3.6 mEq/L (3.5-5.1)
[2024-06-25] MEDS: ESCITALOPRAM OXALATE 10 MG TABLET PO SCH (08:19)
--- NOTE | 2024-06-25 14:37 | P.PN ---
Date of Service: 06/25/24 Subjective: Sleeping comfortably Planning for wound vac and antibiotic therapy at discharge ROS: 10 point ROS as noted above, otherwise negative Physical exam GEN: Sleeping, NAD CV: RRR, S1 S2 present Pulm: Nonlabored respirations on room air ABD: Soft and nontender on palpation, colostomy in place, Cote catheter in plac e MSK: No joint tenderness Integumentary: No rashes Neuro: Normal speech, normal affect Vitals reviewed Assessment: Acute metabolic encephalopathy UTI Colostomy status Dementia Atrial fibrillation on chronic anticoagulation Sacral decubitus ulceration Plan: Acute metabolic encephalopathy UTI Urine culture grew E. coli, Morganella morganii, and Proteus mirabilis ESBL switched to Merrem Q8H no growth in 24 hours on blood cultures Monitor fever trend/CBC Dr Holland consulted, will require fdc antibiotics Colostomy status Noted Dementia Atrial fibrillation on chronic anticoagulation Continue home medications Sacral decubitus ulceration General Surgery consulted/following Plan for wound VAC placement DVT PPX: Eliquis Code status: Full Discharge Plan: Mcfp Plan to discharge in: Greater than 2 days
[2024-06-25] MEDS: Meropenem 1,000 MG in NA CHLORIDE 0.9% 100 ML IV SCH (15:11)
[2024-06-25] MEDS ORDERED: VANCOMYCIN 2 GM in NA CHLORIDE 0.9% 500 ML IVPB SCH (21:00)
[2024-06-26 07:54] LABS: Absolute Basophils 0.1 K/uL (0-0.5); Absolute Eosinophils 0.7 K/uL (0-0.5); Absolute Lymphocytes (CBC) 2.2 K/uL (0.7-4.9); Absolute Monocytes 0.7 K/uL (0.1-1.3); Absolute Neutrophil 7.7 K/uL (1.8-8.0); Basophils % 0.9 % (0-1.3); Hemoglobin 11.4 g/dL (12.0-15.0); Lymphocytes % 19.2 % (15.3-44.8); MCH 29.8 pg (27.0-35.0); MCHC 31.6 g/dL (32.0-36.0); MCV 94.2 fL (80-100); MPV 7.3 fL (7.6-11.3); Monocytes % 6.3 % (3.3-12.3); Neutrophils % 67.6 % (41.7-73.7); Platelets 346 thou/uL (152-406); RBC Red Blood Cell Count 3.82 M/uL (3.86-4.86); Red Cell Distribution Width 17.2 % (12.1-15.2)
[2024-06-26 08:12] LABS: Anion Gap 12.6 mEq/L (5.0-15.0); Potassium 3.6 mEq/L (3.5-5.1)
--- NOTE | 2024-06-26 12:35 | CON ---
History Of Present Illness: This is a 73-year-old female. I was consulted for evaluation of sacral wound infection. The patient has significant past medical history of dementia, atrial fibrillation, colostomy, bed bound, coming to the emergency room with concern of infection from long-term. The patient is not good in communication. Most of the history was obtained through medical records and s tafkarey. Past Medical History: As per HPI. Social History: Nonsmoker, nondrinker. prison resident. Family History: Noncontributory. Medications: Meropenem. See MARs for other medications. Allergies: SULFA DRUGS. Review of Systems: Unable to obtain. Physical Examination: General: This is a 73-year-old female, lying in bed, not in any acute cardiopulmonary distress. Vital Signs: Temperature 98, pulse 91, respiration 18, blood pressure 130/63. HEENT: Unremarkable. Neck: Supple. Lungs: Basal crackles. Heart: S1, S2. Regular. Abdomen: Soft, nontender. Bowel sounds present. Extremities: 2+ edema. Laboratory Data: Shows WBC 11.4, hemoglobin 11.4, platelets are 346. Chemistry shows BUN of 17, cre atinine 0.4. Albumin level of 2.8. Urine shows wbc of 50. Cultures are growing from the urine, E. coli Morganella morganii and Proteus mirabilis, ESBL sensitive to meropenem. Sacral wound cultures a re growing E. coli and Proteus mirabilis, ESBL sensitive to meropenem. Assessment And Plan: This is a 73-year-old female with sacral wound stage III infected with E. coli and Proteus mirabilis ESBL. Urine cultures are positive for E. coli and Morganella morganii and Prot eus mirabilis ESBL with pyuria. CT scan showing cholelithiasis, no acute inflammatory process. Leuk ocytosis slowly improving. Anemia of chronic disease. Moderate protein-calorie malnourishment. Con tinue current treatment for 2 weeks. Consider using Dakin's solution to the wound site on daily basi s. Consider keeping the patient offloaded for the wound site. We will follow the patient closely. No other recommendation at this time. Thank you Dr. Teran for consult. NF/MODL Voice ID: [id number] Report ID: [id number]
--- NOTE | 2024-06-26 16:25 | P.PN ---
Date of Service: 06/26/24 Subjective: Awake and conversing, confused no new complaints Awaiting placement ROS: 10 point ROS as noted above, otherwise negative Physical exam GEN: Awake, Confused, NAD CV: Regular rate and rhythm Pulm: Nonlabored respirations, clear BBS, on room air ABD: colostomy in place, Cote catheter in place MSK: No joint tenderness Integumentary: No rashes Neuro: Normal speech, normal affect Vitals reviewed Assessment: Acute metabolic encephalopathy UTI Colostomy status Dementia Atrial fibrillation on chronic anticoagulation Sacral decubitus ulceration Plan: Acute metabolic encephalopathy UTI Urine culture grew E. coli, Morganella morganii, and Proteus mirabilis ESBL switched to Merrem Q8H no growth in 24 hours on blood cultures Afebrile, WBC WNL Dr Holland consulted, will require usp antibiotics Colostomy status Noted Dementia Atrial fibrillation on chronic anticoagulation Continue home medications Sacral decubitus ulceration General Surgery following Plan for wound VAC placement Orderd placed for MT management of wound vac Hospital interval course 06/26/24 -Tolerating and michael continue Merrem IV -hemodynamically stable -awaiting placement DVT PPX: Eliquis Code status: Full Discharge Plan: Skilled Nursing Plan to discharge in: Greater than 2 days
[2024-06-26] MEDS: POTASSIUM 25 MEQ EFFERV TAB PO ONE (19:33)
[2024-06-26] MEDS: Mupirocin NASAL 2 APPL/1 GM TUBE NAS SCH (21:22)
[2024-06-27 09:24] LABS: Absolute Basophils 0.1 K/uL (0-0.5); Absolute Eosinophils 0.6 K/uL (0-0.5); Absolute Monocytes 0.8 K/uL (0.1-1.3); Absolute Neutrophil 7.9 K/uL (1.8-8.0); Basophils % 0.9 % (0-1.3); Eosinophils % 4.5 % (0-4.4); Hematocrit 34.5 % (36.0-45.0); Hemoglobin 10.9 g/dL (12.0-15.0); Lymphocytes % 24.5 % (15.3-44.8); MCH 30.1 pg (27.0-35.0); MCHC 31.7 g/dL (32.0-36.0); MCV 94.9 fL (80-100); MPV 7.2 fL (7.6-11.3); Monocytes % 6.3 % (3.3-12.3); Neutrophils % 63.8 % (41.7-73.7); Nucleated Red Blood Cells % 0.1 % (0-0); Platelets 376 thou/uL (152-406); RBC Red Blood Cell Count 3.64 M/uL (3.86-4.86); Red Cell Distribution Width 17.5 % (12.1-15.2)
[2024-06-27 09:45] LABS: Anion Gap 11.5 mEq/L (5.0-15.0); Potassium 3.5 mEq/L (3.5-5.1)
[2024-06-27 12:23] LABS: Anion Gap 10.3 mEq/L (5.0-15.0); Potassium 3.3 mEq/L (3.5-5.1)
[2024-06-27] MEDS: KCL 20 MEQ/100 mL IVPB 20 MEQ/100 ML BAG IV SCH (12:26)
[2024-06-27] MEDS: NA CHLORIDE 0.9% 1,000 ML IV SCH (12:26)
[2024-06-27] MEDS: ENSURE HIGH PROTEIN 237 ML CAN PO SCH (12:50)
--- NOTE | 2024-06-27 13:27 | P.PN ---
Date of Service: 06/27/24 Subjective: Awake, reports being thirsty, only swallows a few sips from the straw Family supportive and visiting no new complaints Awaiting placement ROS: 10 point ROS as noted above, otherwise negative Physical exam GEN: Awake, Confused, NAD, afebrile CV: S1 S2 present, RRR Pulm: Nonlabored respirations, clear BBS, on room air ABD: colostomy in place, Cote catheter in place Integumentary: No rashes Neuro: Normal speech, normal affect Vitals reviewed Assessment: Acute metabolic encephalopathy UTI Colostomy status Dementia Atrial fibrillation on chronic anticoagulation Sacral decubitus ulceration Plan: Acute metabolic encephalopathy UTI Urine culture grew E. coli, Morganella morganii, and Proteus mirabilis ESBL switched to Merrem Q8H no growth in 24 hours on blood cultures Afebrile, WBC WNL Dr Holland consulted, will require termite treater antibiotics Colostomy status Noted Dementia Atrial fibrillation on chronic anticoagulation Continue home medications Sacral decubitus ulceration General Surgery following Plan for wound VAC placement Order placed for NH management of wound vac Hypokalemia -Replaced -continue to monitor Hospital interval course 06/26/24 -Tolerating and will continue Merrem IV -hemodynamically stable -awaiting placement 06/27/24 -Family concerned about decreased appetite -[place] reports the patient eating 25-50% of each meal during her stay there -Consulted nutrition and Speech -Hypokalemia likely 2/2 to decreased PO intake -Ensure QID ordered DVT PPX: Eliquis Code status: Full Discharge Plan: Alf Plan to discharge in: Greater than 2 days <Kimi Curtis - Last Filed: 06/27/24 13:19> Patient seen and examined. Plan of care discussed with Ms. Curtis. Patient is awake, interactive. Nursing staff reports she has been picky with her meals however she becomes awake enough to eat. I met with her was concerned he needs to complete patient's power of senior trial attorney and was requesting for mental health examination to determine patient's capacity to make decisions. Patient's has been informed he has to see a restaurant management internship to help with patient's financial power of senior trial attorney. She was also informed he may follow-up with neurology as an outpatient when patient has recovered fully from the UTI. voiced understanding. Surgery Dr. Hurtado recommend wound VAC. Patient slated for alf placement. is concerned about patient decreased oral intake. Case discussed with Dr. Hurtado and he is planning to follow-up with patient after discharge to evaluate for PEG tube placement. [facility] ordered to evaluate for dysphagia, however I was informed patient cannot fit the chair for the study. Speech therapy performed bedside swallow evaluation. According to speech report, patient had trouble following instructions. Pured diet recommended by speech for now. Continue IV meropenem. Infectious diseases following. <juany chakraborty - Last Filed: 06/28/24 17:32>
[2024-06-28 06:21] LABS: Absolute Eosinophils 0.6 K/uL (0-0.5); Absolute Lymphocytes (CBC) 3.6 K/uL (0.7-4.9); Absolute Monocytes 0.7 K/uL (0.1-1.3); Absolute Neutrophil 6.4 K/uL (1.8-8.0); Basophils % 0.3 % (0-1.3); Eosinophils % 5.3 % (0-4.4); Hematocrit 31.3 % (36.0-45.0); Hemoglobin 10.3 g/dL (12.0-15.0); Lymphocytes % 31.4 % (15.3-44.8); MCH 30.7 pg (27.0-35.0); MCHC 33.1 g/dL (32.0-36.0); MCV 92.8 fL (80-100); MPV 7.2 fL (7.6-11.3); Monocytes % 6.6 % (3.3-12.3); Neutrophils % 56.4 % (41.7-73.7); Nucleated Red Blood Cells % 0.1 % (0-0); Platelets 327 thou/uL (152-406); RBC Red Blood Cell Count 3.37 M/uL (3.86-4.86); Red Cell Distribution Width 17.3 % (12.1-15.2)
[2024-06-28 06:46] LABS: Anion Gap 9.5 mEq/L (5.0-15.0); Potassium 3.5 mEq/L (3.5-5.1)
[2024-06-28] MEDS: KCL 20 MEQ/100 mL IVPB 20 MEQ/100 ML BAG IV SCH (09:08)
[2024-06-28] MEDS: ENSURE MAX PROTEIN 330 ML LIQUID PO SCH (11:44)
--- NOTE | 2024-06-28 16:35 | P.PN ---
Date of Service: 06/28/24 Subjective ROS reviewed and negative unless stated in HPI Objective Temp Pulse Resp BP Pulse Ox 98.1 F 93 H 16 158/67 H 98 06/28/24 12:00 06/28/24 12:00 06/28/24 12:00 06/28/24 12:00 06/28/24 12:00 Laboratory Results General: Pt seem lying in bed, not in any acute cardiopulmonary distress. neuro: ao x 2. slow speech HEENT: Unremarkable. Neck: Supple. Lungs: Basal crackles. Heart: S1, S2. Regular. Abdomen: Soft, nontender. Bowel sounds present. Extremities: 2+ edema. Laboratory Data: Shows WBC 11.3, hemoglobin 10.3, platelets are 327. Chemistry shows BUN of 19, creatinine 0.48. 06/22/24 wound sacral E. coli and Proteus mirabilis ESBL 06/22/24 urine Cultures E. coli, Morganella Morganii and Proteus mirabilis ESBL 06/21/24 negative blood culture Assessment And Plan: T 1. sacral wound stage III infected with E. coli and Proteus mirabilis ESBL. Continue meropenum for 2 weeks. Consider using Dakin's solution to the wound site on daily basis. Consider keeping the patient offloaded for the wound site. We will follow the patient closely. 2. UTI positive for E. coli and Morganella morganii and Proteus mirabilis ESBL with pyuria. CT scan showing cholelithiasis, no acute inflammatory process. Leukocytosis slowly improving. continue with meropenum 3.Anemia of chronic disease 4.Moderate protein-calorie malnourishment. case rounded and in agreement with Dr Holland
[2024-06-29 13:52] LABS: Absolute Basophils 0.1 K/uL (0-0.5); Absolute Eosinophils 0.6 K/uL (0-0.5); Absolute Lymphocytes (CBC) 3.1 K/uL (0.7-4.9); Absolute Monocytes 0.9 K/uL (0.1-1.3); Absolute Neutrophil 5.9 K/uL (1.8-8.0); Basophils % 0.5 % (0-1.3); Eosinophils % 5.5 % (0-4.4); Hematocrit 32.4 % (36.0-45.0); Hemoglobin 10.6 g/dL (12.0-15.0); Lymphocytes % 29.1 % (15.3-44.8); MCH 30.2 pg (27.0-35.0); MCHC 32.7 g/dL (32.0-36.0); MCV 92.5 fL (80-100); MPV 7.2 fL (7.6-11.3); Monocytes % 8.4 % (3.3-12.3); Neutrophils % 56.5 % (41.7-73.7); Nucleated Red Blood Cells % 0.1 % (0-0); Platelets 321 thou/uL (152-406); RBC Red Blood Cell Count 3.51 M/uL (3.86-4.86); Red Cell Distribution Width 17.9 % (12.1-15.2)
[2024-06-29 14:14] LABS: Anion Gap 9.5 mEq/L (5.0-15.0); Potassium 3.5 mEq/L (3.5-5.1)
--- NOTE | 2024-06-29 16:33 | P.PN ---
Date of Service: 06/28/24 Subjective: Drinking a pint of milk, and reports drinking water Cote removed and urine output at 400 mL no new complaints Awaiting placement ROS: 10 point ROS as noted above, otherwise negative Physical exam GEN: Awake, alert and confused, NAD, afebrile CV: S1 S2 present, regular rate and rhythm Pulm: Nonlabored respirations, symmetrical chest wall movement on room air ABD: colostomy in place Integumentary: No rashes Neuro: Normal speech, normal affect Vitals reviewed Assessment: Acute metabolic encephalopathy UTI Colostomy status Dementia Atrial fibrillation on chronic anticoagulation Sacral decubitus ulceration Plan: Acute metabolic encephalopathy UTI Urine culture grew E. coli, Morganella morganii, and Proteus mirabilis ESBL switched to Merrem Q8H no growth in 24 hours on blood cultures Afebrile, WBC WNL Dr Holland consulted, will require terminal block assembler antibiotics Colostomy status Noted Dementia Atrial fibrillation on chronic anticoagulation Continue home medications Sacral decubitus ulceration General Surgery following Plan for wound VAC placement Order placed for MD management of wound vac Hypokalemia -Replaced -continue to monitor Hospital interval course 06/26/24 -Tolerating and will continue Merrem IV -hemodynamically stable -awaiting placement 06/27/24 -Family concerned about decreased appetite -[place] reports the patient eating 25-50% of each meal during her stay there -Consulted nutrition and Speech -Hypokalemia likely 2/2 to decreased PO intake -Ensure QID ordered 06/28/2024 -Remove Cote catheter with acceptable urine output - Evaluation for PEG tube ongoing - Some improvement to p.o. intake, will continue to monitor - Continue IV antibiotics - Plan for wound VAC to be placed at the halfway DVT PPX: Eliquis Code status: Full Discharge Plan: Long Term Plan to discharge in: Greater than 2 days
--- NOTE | 2024-06-29 16:41 | P.PN ---
Date of Service: 06/29/24 Subjective: awake and conversing more this morning no new complaints Awaiting placement ROS: 10 point ROS as noted above, otherwise negative Physical exam GEN: Awake, alert and confused CV: S1 S2 present, regular rate and rhythm Pulm: Nonlabored respirations, on room air ABD: colostomy in place Integumentary: No rashes Neuro: Normal speech, normal affect Vitals reviewed Assessment: Acute metabolic encephalopathy UTI Colostomy status Dementia Atrial fibrillation on chronic anticoagulation Sacral decubitus ulceration Plan: Acute metabolic encephalopathy UTI Urine culture grew E. coli, Morganella morganii, and Proteus mirabilis ESBL switched to Merrem Q8H no growth in 24 hours on blood cultures Afebrile, WBC WNL Dr Holland consulted, will require terminal gauger supervisor antibiotics Colostomy status Noted Dementia Atrial fibrillation on chronic anticoagulation Continue home medications Sacral decubitus ulceration General Surgery following Plan for wound VAC placement Order placed for NH management of wound vac Hypokalemia -Replaced -continue to monitor Hospital interval course 06/26/24 -Tolerating and will continue Merrem IV -hemodynamically stable -awaiting placement 06/27/24 -Family concerned about decreased appetite -[place] reports the patient eating 25-50% of each meal during her stay there -Consulted nutrition and Speech -Hypokalemia likely 2/2 to decreased PO intake -Ensure QID ordered 06/28/2024 -Remove Cote catheter with acceptable urine output - Evaluation for PEG tube ongoing - Some improvement to p.o. intake, will continue to monitor - Continue IV antibiotics - Plan for wound VAC to be placed at the retirement 06/29/24 -Will initiate calorie count for decreased PO intake -Dr. Hurtado evaluating for the need of a PEG tube -Neurology follow up after discharge for further dementia evaluation -hemodynamically stable DVT PPX: Eliquis Code status: Full Discharge Plan: [facility] Plan to discharge in: Greater than 2 days
[2024-06-30 06:41] LABS: Absolute Eosinophils 0.6 K/uL (0-0.5); Absolute Lymphocytes (CBC) 2.5 K/uL (0.7-4.9); Absolute Monocytes 0.7 K/uL (0.1-1.3); Basophils % 0.4 % (0-1.3); Eosinophils % 6.4 % (0-4.4); Hematocrit 30.9 % (36.0-45.0); Hemoglobin 10.2 g/dL (12.0-15.0); MCHC 33.1 g/dL (32.0-36.0); MCV 93.6 fL (80-100); MPV 7.3 fL (7.6-11.3); Neutrophils % 61.2 % (41.7-73.7); Nucleated Red Blood Cells % 0.4 % (0-0); Platelets 256 thou/uL (152-406); Red Cell Distribution Width 17.6 % (12.1-15.2)
[2024-06-30 07:03] LABS: Anion Gap 8.4 mEq/L (5.0-15.0); Magnesium 1.4 mg/dL (1.6-2.4); Phosphorus 1.7 mg/dL (2.5-4.9); Potassium 3.4 mEq/L (3.5-5.1)
--- NOTE | 2024-06-30 14:24 | P.PN ---
Date of Service: 06/30/24 Subjective: Family at bedside and reports eating most scrambled eggs this morning Gwendolyn remains unable to reposition in bed independently, no acute distress Discharge pending appropriate p.o. intake ROS: 10 point ROS as noted above, otherwise negative Physical exam GEN: Awake, alert, demented CV: S1 S2 present, RRR Pulm: Symmetrical chest wall movement on room air ABD: colostomy in place, obese Integumentary: No rashes Neuro: Normal speech, normal affect Vitals reviewed Assessment: Acute metabolic encephalopathy UTI Colostomy status Dementia Atrial fibrillation on chronic anticoagulation Sacral decubitus ulceration Plan: Acute metabolic encephalopathy UTI Urine culture grew E. coli, Morganella morganii, and Proteus mirabilis ESBL switched to Merrem Q8H no growth in 24 hours on blood cultures Afebrile, WBC WNL Dr Holland consulted, will require fci antibiotics Colostomy status Noted Dementia Atrial fibrillation on chronic anticoagulation Continue home medications Sacral decubitus ulceration General Surgery following Plan for wound VAC placement Order placed for ID management of wound vac Hypokalemia -Replaced -continue to monitor Hospital interval course 06/26/24 -Tolerating and will continue Merrem IV -hemodynamically stable -awaiting placement 06/27/24 -Family concerned about decreased appetite -[place] reports the patient eating 25-50% of each meal during her stay there -Consulted nutrition and Speech -Hypokalemia likely 2/2 to decreased PO intake -Ensure QID ordered 06/28/2024 -Remove Cote catheter with acceptable urine output - Evaluation for PEG tube ongoing - Some improvement to p.o. intake, will continue to monitor - Continue IV antibiotics - Plan for wound VAC to be placed at the assisted 06/29/24 -Will initiate calorie count for decreased PO intake -Dr. Hurtado evaluating for the need of a PEG tube -Neurology follow up after discharge for further dementia evaluation -hemodynamically stable 06/30/24 -Continues with decreased p.o. intake, family reports she ate 2 bites of a chili dog yesterday - Dr. Hurtado following for possible PEG tube placement - Vital signs stable - Continue IV antibiotics DVT PPX: Eliquis Code status: Full Discharge Plan: Detention Plan to discharge in: Greater than 2 days
[2024-07-01 08:48] LABS: Absolute Basophils 0.1 K/uL (0-0.5); Absolute Eosinophils 0.5 K/uL (0-0.5); Absolute Monocytes 0.9 K/uL (0.1-1.3); Absolute Neutrophil 6.3 K/uL (1.8-8.0); Basophils % 0.6 % (0-1.3); Eosinophils % 4.5 % (0-4.4); Hematocrit 34.4 % (36.0-45.0); Lymphocytes % 27.5 % (15.3-44.8); MCH 29.6 pg (27.0-35.0); MCHC 31.9 g/dL (32.0-36.0); MCV 92.7 fL (80-100); MPV 7.6 fL (7.6-11.3); Monocytes % 8.8 % (3.3-12.3); Neutrophils % 58.6 % (41.7-73.7); Platelets 286 thou/uL (152-406); RBC Red Blood Cell Count 3.71 M/uL (3.86-4.86); Red Cell Distribution Width 18.2 % (12.1-15.2)
[2024-07-01 09:36] VITALS: BMI 45.1
[2024-07-01 09:51] LABS: Anion Gap 8.5 mEq/L (5.0-15.0); Magnesium 1.4 mg/dL (1.6-2.4); Phosphorus 1.8 mg/dL (2.5-4.9); Potassium 3.5 mEq/L (3.5-5.1)
--- NOTE | 2024-07-01 12:54 | P.PN ---
Date of Service: 07/01/24 Subjective: Awake, alert, oriented to name, year, location today NO acute events overnight Very poor oral intake during hospitalization ROS: 10 point ROS as noted above, otherwise negative Physical exam GEN: Awake, alert, oriented x 2-3 with intermittent confusion CV: S1 S2 present, RRR Pulm: Symmetrical chest wall movement on room air ABD: colostomy in place, obese Integumentary: No rashes Neuro: Normal speech, normal affect Vitals reviewed Assessment: Acute metabolic encephalopathy UTI Poor oral intake Colostomy status Dementia Atrial fibrillation on chronic anticoagulation Sacral decubitus ulceration Plan: Acute metabolic encephalopathy UTI Urine culture grew E. coli, Morganella morganii, and Proteus mirabilis ESBL switched to Merrem Q8H no growth in 24 hours on blood cultures Afebrile, WBC WNL Dr Holland consulted, will require computer terminal operator antibiotics Poor oral intake Flame Channeler following Calorie count underway May need PEG if not improving/meeting nutrition goals Colostomy status Noted Dementia Atrial fibrillation on chronic anticoagulation Continue home medications Sacral decubitus ulceration General Surgery following Plan for wound VAC placement Order placed for [place] management of wound vac Hypokalemia -Replaced -continue to monitor Hospital interval course 06/26/24 -Tolerating and will continue Merrem IV -hemodynamically stable -awaiting placement 06/27/24 -Family concerned about decreased appetite -[place] reports the patient eating 25-50% of each meal during her stay there -Consulted nutrition and Speech -Hypokalemia likely 2/2 to decreased PO intake -Ensure QID ordered 06/28/2024 -Remove Cote catheter with acceptable urine output - Evaluation for PEG tube ongoing - Some improvement to p.o. intake, will continue to monitor - Continue IV antibiotics - Plan for wound VAC to be placed at the snf 06/29/24 -Will initiate calorie count for decreased PO intake -Dr. Hurtado evaluating for the need of a PEG tube -Neurology follow up after discharge for further dementia evaluation -hemodynamically stable 06/30/24 -Continues with decreased p.o. intake, family reports she ate 2 bites of a chili dog yesterday - Dr. Hurtado following for possible PEG tube placement - Vital signs stable - Continue IV antibiotics 07/01/24 -Calorie count initiated DVT PPX: Eliquis Code status: Full Discharge Plan: Half-Way Plan to discharge in: Greater than 2 days <Bradley Do - Last Filed: 07/01/24 12:51> Patient seen and evaluated. Plan of care discussed with Bradley Do. Patient with poor oral intake. Case discussed with Dr. Hurtado. Patient may be a candidate for PEG tube given her significant dementia. Initiate calorie count. Dietitian consult. Dr. Hurtado to follow <juany chakraborty - Last Filed: 07/01/24 15:26>
--- NOTE | 2024-07-01 16:42 | P.PN ---
Date of Service: 07/01/24 Subjective ROS reviewed and negative unless stated in HPI Objective Temp Pulse Resp BP Pulse Ox 97.7 F 89 18 136/58 L 100 07/01/24 08:00 07/01/24 08:00 07/01/24 08:00 07/01/24 08:00 07/01/24 08:00 Laboratory Results General: Pt seem lying in bed, not in any acute cardiopulmonary distress. neuro: ao x 2. slow speech HEENT: Unremarkable. Neck: Supple. Lungs: CTA Heart: S1, S2. Regular. Abdomen: Soft, nontender. Bowel sounds present. Laboratory Data: Shows WBC 10.8, hemoglobin 11, platelets are 286. Chemistry shows BUN of 13, creatinine 0.33. 06/22/24 wound sacral E. coli and Proteus mirabilis ESBL 06/22/24 urine Cultures E. coli, Morganella Morganii and Proteus mirabilis ESBL 06/21/24 negative blood culture Assessment And Plan: T 1. sacral wound stage III infected with E. coli and Proteus mirabilis ESBL. Continue meropenum for 2 weeks. Consider using Dakin's solution to the wound site on daily basis. Consider keeping the patient offloaded for the wound site. We will follow the patient closely. 2. UTI positive for E. coli and Morganella morganii and Proteus mirabilis ESBL with pyuria. CT scan showing cholelithiasis, no acute inflammatory process. Leukocytosis slowly improving. continue with meropenum 3.Anemia of chronic disease 4.Moderate protein-calorie malnourishment. case rounded and in agreement with Dr Holland
[2024-07-02 05:51] LABS: Absolute Basophils 0.1 K/uL (0-0.5); Absolute Eosinophils 0.6 K/uL (0-0.5); Absolute Lymphocytes (CBC) 2.9 K/uL (0.7-4.9); Absolute Monocytes 0.9 K/uL (0.1-1.3); Absolute Neutrophil 7.6 K/uL (1.8-8.0); Basophils % 0.8 % (0-1.3); Eosinophils % 4.6 % (0-4.4); Hematocrit 34.2 % (36.0-45.0); Lymphocytes % 24.3 % (15.3-44.8); MCH 29.7 pg (27.0-35.0); MCHC 32.2 g/dL (32.0-36.0); MCV 92.2 fL (80-100); Monocytes % 7.4 % (3.3-12.3); Neutrophils % 62.9 % (41.7-73.7); Nucleated RBC Absolute Count 0.1 (0-0); Nucleated Red Blood Cells % 0.4 % (0-0); Platelets 254 thou/uL (152-406); RBC Red Blood Cell Count 3.71 M/uL (3.86-4.86)
[2024-07-02 06:02] LABS: Anion Gap 10.3 mEq/L (5.0-15.0); Magnesium 1.4 mg/dL (1.6-2.4); Phosphorus 1.9 mg/dL (2.5-4.9); Potassium 3.3 mEq/L (3.5-5.1)
[2024-07-02] MEDS: KCL 20 MEQ/100 mL IVPB 20 MEQ/100 ML BAG IV SCH (07:15)
--- NOTE | 2024-07-02 09:23 | P.PN ---
Date of Service: 07/02/24 Subjective: Awake, alert, oriented to name, year, location today NO acute events overnight Oral intake/appetite improving today ROS: 10 point ROS as noted above, otherwise negative Physical exam GEN: Awake, alert, oriented x 2-3 with intermittent confusion CV: S1 S2 present, RRR Pulm: Symmetrical chest wall movement on room air ABD: colostomy in place, obese Integumentary: No rashes Neuro: Normal speech, normal affect Vitals reviewed Assessment: Acute metabolic encephalopathy UTI Poor oral intake Colostomy status Dementia Atrial fibrillation on chronic anticoagulation Sacral decubitus ulceration Plan: Acute metabolic encephalopathy UTI Urine culture grew E. coli, Morganella morganii, and Proteus mirabilis ESBL switched to Merrem Q8H no growth in 24 hours on blood cultures Afebrile, WBC WNL Dr Holland consulted, will require 2 weeks IV abx through 07/09 Poor oral intake Roller Engraver following Calorie count underway May need PEG if not improving/meeting nutrition goals Some improvement in appetite 07/02 Colostomy status Noted Dementia Atrial fibrillation on chronic anticoagulation Continue home medications Sacral decubitus ulceration General Surgery following Plan for wound VAC placement Order placed for NH management of wound vac Hypokalemia -Replaced -continue to monitor DVT PPX: Eliquis Code status: Full Discharge Plan: [facility] Plan to discharge in: Greater than 2 days
--- NOTE | 2024-07-02 13:38 | PN ---
Subjective: The patient lying in bed. Complains of backache. Denies any other problems. Objective: Vital Signs: Reviewed. Lungs: Basal crackles. Heart: S1, S2. Regular. Abdomen: Soft, nontender. Bowel sounds present. Extremities: Trace edema. Laboratory Data: Shows WBC 12.1, hemoglobin 11, platelets are 254. Chemistry shows BUN of 11, creat inine 0.2. Wound cultures from sacral area, E coli, Proteus mirabilis, ESBL. Urine culture: E coli , Morganella morganii, and Proteus mirabilis ESBL. The patient currently being treated with meropenem. Assessment And Plan: 1. Sacral decubitus infected with Proteus mirabilis, ESBL, and E coli. Continue meropenem for 2 week s. 2. Leukocytosis. 3. Anemia of chronic disease. 4. Urinary tract infection with Proteus mirabilis, ESBL, and E coli. Continue current treatment. Monitor signs of infection with WBC and fever trends. NF/MODL Voice ID: [id number] Report ID: [id number]
[2024-07-03] MEDS: KCL 20 MEQ/100 mL IVPB 20 MEQ/100 ML BAG IV SCH (00:09)
--- NOTE | 2024-07-03 08:47 | P.PN ---
Date of Service: 07/03/24 Subjective: Awake, alert, oriented to name, year, location NO acute events overnight Oral intake/appetite improving slowly ROS: 10 point ROS as noted above, otherwise negative Physical exam GEN: Awake, alert, oriented x 2-3 with intermittent confusion CV: S1 S2 present, RRR Pulm: Symmetrical chest wall movement on room air ABD: colostomy in place, obese Integumentary: No rashes Neuro: Normal speech, normal affect Vitals reviewed Assessment: Acute metabolic encephalopathy UTI Poor oral intake Colostomy status Dementia Atrial fibrillation on chronic anticoagulation Sacral decubitus ulceration Plan: Acute metabolic encephalopathy UTI Urine culture grew E. coli, Morganella morganii, and Proteus mirabilis ESBL switched to Merrem Q8H no growth in 24 hours on blood cultures Afebrile, WBC WNL Dr Holland consulted, will require 2 weeks IV abx through 07/09 Poor oral intake [employer] following Calorie count underway May need PEG if not improving/meeting nutrition goals Some improvement in appetite 07/02 Await recs from log brander Colostomy status Noted Dementia Atrial fibrillation on chronic anticoagulation Continue home medications Sacral decubitus ulceration General Surgery following Plan for wound VAC placement Order placed for NH management of wound vac Hypokalemia -Replaced -continue to monitor DVT PPX: Eliquis Code status: Full Discharge Plan: Alf Plan to discharge in: Greater than 2 days
[2024-07-03 09:21] LABS: Absolute Basophils 0.1 K/uL (0-0.5); Absolute Eosinophils 0.5 K/uL (0-0.5); Absolute Lymphocytes (CBC) 3.3 K/uL (0.7-4.9); Absolute Monocytes 0.8 K/uL (0.1-1.3); Absolute Neutrophil 6.3 K/uL (1.8-8.0); Basophils % 0.9 % (0-1.3); Eosinophils % 4.2 % (0-4.4); Hematocrit 34.3 % (36.0-45.0); Hemoglobin 11.1 g/dL (12.0-15.0); Lymphocytes % 30.3 % (15.3-44.8); MCHC 32.3 g/dL (32.0-36.0); MCV 92.9 fL (80-100); MPV 7.8 fL (7.6-11.3); Monocytes % 7.6 % (3.3-12.3); Nucleated Red Blood Cells % 0.1 % (0-0); Platelets 288 thou/uL (152-406); RBC Red Blood Cell Count 3.69 M/uL (3.86-4.86); Red Cell Distribution Width 17.9 % (12.1-15.2)
[2024-07-03 10:51] LABS: Anion Gap 10.9 mEq/L (5.0-15.0); Magnesium 1.4 mg/dL (1.6-2.4); Phosphorus 1.8 mg/dL (2.5-4.9); Potassium 3.9 mEq/L (3.5-5.1)
[2024-07-03] MEDS: POTASSIUM CL SA 10 MEQ TAB PO ONE (12:16)
--- NOTE | 2024-07-03 15:35 | P.PN ---
Date of Service: 07/03/24 Subjective ROS reviewed and negative unless stated in HPI Objective Temp Pulse Resp BP Pulse Ox 98.9 F 91 H 16 121/65 98 07/03/24 12:00 07/03/24 12:00 07/03/24 12:00 07/03/24 12:00 07/03/24 12:00 General: Pt seem lying in bed, not in any acute cardiopulmonary distress. neuro: ao x 2. slow speech HEENT: Unremarkable. Neck: Supple. Lungs: CTA Heart: S1, S2. Regular. Abdomen: Soft, nontender. Bowel sounds present. Laboratory Data: Shows WBC 11, hemoglobin 11.1, platelets are 288. Chemistry shows BUN of 11, creatinine 0.40 06/22/24 wound sacral E. coli and Proteus mirabilis ESBL 06/22/24 urine Cultures E. coli, Morganella Morganii and Proteus mirabilis ESBL 06/21/24 negative blood culture Assessment And Plan: 1. sacral wound stage III infected with E. coli and Proteus mirabilis ESBL. Continue meropenum for 2 weeks. Consider using Dakin's solution to the wound site on daily basis. Consider keeping the patient offloaded for the wound site. We will follow the patient closely. 2. UTI positive for E. coli and Morganella morganii and Proteus mirabilis ESBL with pyuria. CT scan showing cholelithiasis, no acute inflammatory process. continue with meropenum 3.Anemia of chronic disease 4.Moderate protein-calorie malnourishment. case rounded and in agreement with Dr Holland
[2024-07-04 12:50] LABS: Absolute Basophils 0.1 K/uL (0-0.5); Absolute Eosinophils 0.4 K/uL (0-0.5); Absolute Lymphocytes (CBC) 2.7 K/uL (0.7-4.9); Absolute Monocytes 0.8 K/uL (0.1-1.3); Absolute Neutrophil 5.2 K/uL (1.8-8.0); Basophils % 1.3 % (0-1.3); Eosinophils % 4.7 % (0-4.4); Hematocrit 31.1 % (36.0-45.0); Hemoglobin 10.4 g/dL (12.0-15.0); Lymphocytes % 28.9 % (15.3-44.8); MCH 30.7 pg (27.0-35.0); MCHC 33.3 g/dL (32.0-36.0); MCV 92.1 fL (80-100); MPV 7.8 fL (7.6-11.3); Monocytes % 8.7 % (3.3-12.3); Neutrophils % 56.4 % (41.7-73.7); Platelets 281 thou/uL (152-406); RBC Red Blood Cell Count 3.37 M/uL (3.86-4.86); Red Cell Distribution Width 17.5 % (12.1-15.2)
[2024-07-04 13:04] LABS: Anion Gap 10.4 mEq/L (5.0-15.0); Magnesium 1.2 mg/dL (1.6-2.4); Phosphorus 1.9 mg/dL (2.5-4.9); Potassium 3.4 mEq/L (3.5-5.1)
--- NOTE | 2024-07-04 15:27 | P.PN ---
Date of Service: 07/04/24 Subjective: Awake, alert, oriented to name, year, location Confused when getting into the details NO acute events overnight ROS: 10 point ROS as noted above, otherwise negative Physical exam GEN: Awake, alert, oriented x 2-3 with intermittent confusion CV: S1 S2 present, RRR Pulm: Symmetrical chest wall movement on room air ABD: colostomy in place, obese Integumentary: No rashes Neuro: Normal speech, normal affect Vitals reviewed Assessment: Acute metabolic encephalopathy UTI Protein calorie malnutrition Colostomy status Dementia Atrial fibrillation on chronic anticoagulation Sacral decubitus ulceration Plan: Acute metabolic encephalopathy UTI Urine culture grew E. coli, Morganella morganii, and Proteus mirabilis ESBL switched to Merrem Q8H no growth in 24 hours on blood cultures Afebrile, WBC WNL Dr Holland consulted, will require 2 weeks IV abx through 07/09 Protein calorie malnutrition Colorer following Patient consume less than 15% of her daily caloric/protein needs This was discussed with patient's , daughter who are in agreement with PEG tube Plan for PEG tube placement 07/05 Colostomy status Noted Dementia Atrial fibrillation on chronic anticoagulation Continue home medications Sacral decubitus ulceration General Surgery following Plan for wound VAC placement Order placed for NH management of wound vac Hypokalemia -Replaced -continue to monitor DVT PPX: Eliquis Code status: Full Discharge Plan: Shelter Plan to discharge in: Greater than 2 days
[2024-07-04] MEDS: POTASSIUM CL SA 10 MEQ TAB PO ONE ×2 (21:59→22:06)
--- NOTE | 2024-07-04 23:04 | PN ---
Date of Progress Note: 07/04/2024 Subjective: The patient is lying in bed. No new acute event. Chart reviewed. Objective: Vital Signs: Reviewed. Lungs: Basal crackles. Heart: S1, S2. Regular. Abdomen: Soft, nontender. Bowel sounds present. Extremities: 2+ edema. Laboratory Data: WBC 9.2, hemoglobin 10.4, platelets are 281. BUN 9, creatinine 0.32. Wound cultu re and urine cultures, Proteus mirabilis, ESBL, E coli. Urine culture also grew Morganella morganii. The patient is currently on meropenem. Assessment And Plan: 1. Sacral wound stage III infected with Escherichia coli and Proteus mirabilis. Continue meropenem f or 2 weeks and Dakins solution to the wound site. 2. Urinary tract infection secondary to Escherichia coli and Morganella morganii and Proteus mirabili s extended-spectrum beta-lactamases. 3. Anemia of chronic disease. 4. Moderate protein-calorie malnourishment. 5. Morbid obesity. 6. Monitor signs of infection with WBC and fever trends. NF/MODL Voice ID: [id number] Report ID: [id number]
[2024-07-05 08:06] LABS: PT Prothrombin Time 17.3 SECONDS (10-13.0); PTT, Activated Partial Thromb 32.3 SECONDS (27.2-37.4); Protime INR 1.55
[2024-07-05 08:09] LABS: Hematocrit 33.8 % (36.0-45.0); Hemoglobin 10.8 g/dL (12.0-15.0); MCH 29.8 pg (27.0-35.0); MCHC 32.1 g/dL (32.0-36.0); MCV 92.9 fL (80-100); MPV 7.8 fL (7.6-11.3); Platelets 283 thou/uL (152-406); RBC Red Blood Cell Count 3.64 M/uL (3.86-4.86); Red Cell Distribution Width 18.3 % (12.1-15.2)
[2024-07-05 08:22] LABS: Anion Gap 10.6 mEq/L (5.0-15.0); Potassium 3.6 mEq/L (3.5-5.1)
--- NOTE | 2024-07-05 10:11 | P.PN ---
Date of Service: 07/05/24 Subjective: Awake, alert, oriented to name, year, location Confused when getting into the details NO acute events overnight Not meeting nutritional goals ROS: 10 point ROS as noted above, otherwise negative Physical exam GEN: Awake, alert, oriented x 2-3 with intermittent confusion CV: S1 S2 present, RRR Pulm: Symmetrical chest wall movement on room air ABD: colostomy in place, obese Integumentary: No rashes Neuro: Normal speech, normal affect Vitals reviewed Assessment: Acute metabolic encephalopathy UTI Protein calorie malnutrition Colostomy status Dementia Atrial fibrillation on chronic anticoagulation Sacral decubitus ulceration Plan: Acute metabolic encephalopathy UTI Urine culture grew E. coli, Morganella morganii, and Proteus mirabilis ESBL switched to Merrem Q8H no growth in 24 hours on blood cultures Afebrile, WBC WNL Dr Holland consulted, will require 2 weeks IV abx through 07/09 Protein calorie malnutrition Motor Overhauler following Patient consume less than 15% of her daily caloric/protein needs This was discussed with patient's , daughter who are in agreement with PEG tube Plan for PEG tube placement 07/05 Motor Overhauler reconsulted for tube feed recs Colostomy status Noted Dementia Atrial fibrillation on chronic anticoagulation Continue home medications Sacral decubitus ulceration General Surgery following Plan for wound VAC placement Order placed for NH management of wound vac Hypokalemia -Replaced -continue to monitor DVT PPX: Eliquis-on hold for surgery Code status: Full Discharge Plan: [facility]sp Plan to discharge in: Greater than 2 days
[2024-07-05] MEDS: MORPHINE 4 MG/ML SYR IV ONE (11:15)
[2024-07-05] MEDS: KCL 20 MEQ/100 mL IVPB 20 MEQ/100 ML BAG IV SCH (11:17)
[2024-07-05] MEDS: Ringers Lactate 1,000 ML IV ONE (15:51)
[2024-07-05] MEDS: FENTANYL CITR 100 MCG/2 ML ONE (15:52)
[2024-07-05] MEDS ORDERED: propofoL 200 MG/20 ML VIAL IV ONE (17:15)
[2024-07-05] MEDS ORDERED: SODIUM CHLORIDE 0.9% 10ML INJ IV PRN (18:06)
[2024-07-05] MEDS: PANTOPRAZOLE 40 MG INJ IVP ONE (20:23)
[2024-07-06 07:34] LABS: Hematocrit 33.8 % (36.0-45.0); MCH 30.3 pg (27.0-35.0); MCHC 32.6 g/dL (32.0-36.0); MCV 92.8 fL (80-100); Platelets 270 thou/uL (152-406); RBC Red Blood Cell Count 3.65 M/uL (3.86-4.86); Red Cell Distribution Width 18.1 % (12.1-15.2)
[2024-07-06 07:49] LABS: Anion Gap 9.8 mEq/L (5.0-15.0); Potassium 3.8 mEq/L (3.5-5.1)
--- NOTE | 2024-07-06 19:23 | P.PN ---
Date of Service: 07/06/24 Subjective: Sleeping comfortably vital signs stable laboratory evaluation unremarkable ROS: 10 point ROS as noted above, otherwise negative Physical exam GEN: AAOx 2-3, with intermittent confusion CV: S1 S2 present, RRR Pulm: Nonlabored breathing, on room air ABD: colostomy in place, obese, PEG tube in place Integumentary: No rashes Neuro: Normal speech, normal affect Vitals reviewed Assessment: Acute metabolic encephalopathy UTI Protein calorie malnutrition Colostomy status Dementia Atrial fibrillation on chronic anticoagulation Sacral decubitus ulceration Plan: Acute metabolic encephalopathy UTI Urine culture grew E. coli, Morganella morganii, and Proteus mirabilis ESBL switched to Merrem Q8H no growth in 24 hours on blood cultures Afebrile, WBC WNL Dr Holland consulted, will require 2 weeks IV abx through 07/09 Protein calorie malnutrition Modeling Teacher following Patient consume less than 15% of her daily caloric/protein needs This was discussed with patient's , daughter who are in agreement with PEG tube PEG tube placed (07/05) Modeling Teacher reconsulted for tube feed recs Colostomy status Noted Dementia Atrial fibrillation on chronic anticoagulation Continue home medications Sacral decubitus ulceration General Surgery following Plan for wound VAC placement Order placed for NH management of wound vac Hypokalemia -Replaced -continue to monitor DVT PPX: Eliquis-on hold for surgery Code status: Full Discharge Plan: Shelter Plan to discharge in: Greater than 2 days
[2024-07-07 08:20] LABS: Magnesium 1.3 mg/dL (1.6-2.4); Phosphorus 1.9 mg/dL (2.5-4.9)
[2024-07-07] MEDS: MULTIVITAMINS 5 ML ORAL SYR FT SCH (09:00)
[2024-07-07] MEDS: FOLIC ACID 1 MG TABLET PO SCH (09:13)
[2024-07-07] MEDS: THIAMINE HCL 100 MG TABLET PO SCH (09:13)
--- NOTE | 2024-07-07 11:35 | P.PN ---
Date of Service: 07/07/24 Subjective: Sleeping but easily awakens Starting PEG tube feeds, stopping IVF Likely DC in the AM ROS: 10 point ROS as noted above, otherwise negative Physical exam GEN: Sleeping, NAD CV: S1 S2 present, Regular rate and rhythm Pulm: Symmetrical chest wall movement, on room air ABD: colostomy in place, obese, PEG tube in place Integumentary: No rashes Neuro: Normal speech, normal affect Vitals reviewed Assessment: Acute metabolic encephalopathy UTI Protein calorie malnutrition Hypokalemia likely 2/2 decreased PO intake Colostomy status Dementia Atrial fibrillation on chronic anticoagulation Sacral decubitus ulceration Plan: Acute metabolic encephalopathy UTI Urine culture grew E. coli, Morganella morganii, and Proteus mirabilis ESBL switched to Merrem Q8H no growth in 24 hours on blood cultures Afebrile, WBC WNL Dr Holland consulted, will require 2 weeks IV abx through 07/09 Protein calorie malnutrition Hypokalemia likely 2/2 decreased PO intake Pharmaceutical Compounding Supervisor following Patient consume less than 15% of her daily caloric/protein needs This was discussed with patient's , daughter who are in agreement with PEG tube PEG tube placed (07/05) Pharmaceutical Compounding Supervisor reconsulted for tube feed recs Continue PEG tube feeding (07/07) with MVI, thiamine, and folic acid Replace potassium and continue to monitor Colostomy status Noted Dementia Atrial fibrillation on chronic anticoagulation Continue home medications Sacral decubitus ulceration General Surgery following Plan for wound VAC placement Order placed for NH management of wound vac DVT PPX: Eliquis-on hold for surgery Code status: Full Discharge Plan: Jail Plan to discharge in: Greater than 2 days
[2024-07-07] MEDS: POTASSIUM CL 40 MEQ in NA CHLORIDE 0.9% 500 ML IV SCH (11:52)
[2024-07-07 17:32] LABS: Anion Gap 8.3 mEq/L (5.0-15.0); Potassium 3.3 mEq/L (3.5-5.1)
[2024-07-07] MEDS: NA CHLORIDE 0.9% 500 ML ONE (19:36)
[2024-07-07] MEDS: KCL 20 MEQ/100 mL IVPB 20 MEQ/100 ML BAG IV SCH (19:36)
[2024-07-08 07:54] LABS: Anion Gap 7.5 mEq/L (5.0-15.0); Magnesium 1.2 mg/dL (1.6-2.4); Phosphorus 1.8 mg/dL (2.5-4.9); Potassium 3.5 mEq/L (3.5-5.1)
[2024-07-08] MEDS: POTASSIUM CL SA 10 MEQ TAB PO ONE (09:56)
--- NOTE | 2024-07-08 16:44 | P.PN ---
Date of Service: 07/08/24 Subjective: Awake and oriented No new complaints Tolerating continuous tube feeding with no residual prior to bolus feeds started Awaiting NH discharge ROS: 10 point ROS as noted above, otherwise negative Physical exam GEN: Awake and oriented x2, NAD CV: S1 S2 present, RRR Pulm: Symmetrical chest wall movement, on room air ABD: colostomy in place, obese, PEG tube in place Integumentary: No rashes Neuro: Normal speech, normal affect Vitals reviewed Assessment: Acute metabolic encephalopathy UTI Protein calorie malnutrition Hypokalemia likely 2/2 decreased PO intake Colostomy status Dementia Atrial fibrillation on chronic anticoagulation Sacral decubitus ulceration Plan: Acute metabolic encephalopathy UTI Urine culture grew E. coli, Morganella morganii, and Proteus mirabilis ESBL switched to Merrem Q8H no growth in 24 hours on blood cultures Afebrile, WBC WNL Dr Holland consulted, will require 2 weeks IV abx through 07/09 Protein calorie malnutrition Hypokalemia likely 2/2 decreased PO intake Hand Molder Meat following Patient consume less than 15% of her daily caloric/protein needs This was discussed with patient's , daughter who are in agreement with PEG tube PEG tube placed (07/05) Following Hand Molder Meat tube feed recs, now on bolus feeds 07/08 Continue PEG tube feeding (07/07) with MVI, thiamine, and folic acid Replace potassium and continue to monitor Colostomy status Noted Dementia Atrial fibrillation on chronic anticoagulation Continue home medications Sacral decubitus ulceration General Surgery following Plan for wound VAC placement Order placed for NH management of wound vac DVT PPX: Eliquis-on hold for surgery Code status: Full Discharge Plan: Custodial Plan to discharge in: Greater than 2 days
--- NOTE | 2024-07-08 16:55 | P.PN ---
Date of Service: 07/08/24 Subjective ROS reviewed and negative unless stated in HPI Objective Temp Pulse Resp BP Pulse Ox 97.9 F 86 16 135/75 97 07/08/24 12:00 07/08/24 12:00 07/08/24 12:00 07/08/24 12:00 07/08/24 12:00 General: Pt seem lying in bed, not in any acute cardiopulmonary distress. neuro: ao x 2. slow speech HEENT: Unremarkable. [place] Neck: Supple. Lungs: CTA Heart: S1, S2. Regular. Abdomen: Soft, nontender. Bowel sounds present. msk: generalized edema Laboratory Data: Shows WBC 10.7, hemoglobin 11, platelets are 270. Chemistry shows BUN of 11, creatinine 0.438 06/22/24 wound sacral E. coli and Proteus mirabilis ESBL 06/22/24 urine Cultures E. coli, Morganella Morganii and Proteus mirabilis ESBL 06/21/24 negative blood culture Assessment And Plan: 1. sacral wound stage III infected with E. coli and Proteus mirabilis ESBL. Continue meropenum for 2 weeks. Consider using Dakin's solution to the wound site on daily basis. Consider keeping the patient offloaded for the wound site. We will follow the patient closely. 2. UTI positive for E. coli and Morganella morganii and Proteus mirabilis ESBL with pyuria. CT scan showing cholelithiasis, no acute inflammatory process. continue with meropenum 3.Anemia of chronic disease 4.Moderate protein-calorie malnourishment. case rounded and in agreement with Dr Holland
[2024-07-08 22:52] LABS: Anion Gap 6.6 mEq/L (5.0-15.0); Potassium 3.6 mEq/L (3.5-5.1)
[2024-07-09 08:26] LABS: Anion Gap 5.5 mEq/L (5.0-15.0); Magnesium 1.3 mg/dL (1.6-2.4); Phosphorus 1.9 mg/dL (2.5-4.9); Potassium 3.5 mEq/L (3.5-5.1)
[2024-07-09] MEDS: POTASSIUM CL SA 10 MEQ TAB PO ONE (20:06)
[2024-07-09 23:26] VITALS: O2SAT 97
--- NOTE | 2024-07-09 23:42 | PN ---
Date of Progress Note: 07/09/2024 Subjective: The patient is lying in bed, no new acute event overnight. Objective: Vital Signs: Reviewed. Lungs: Basal crackles. Heart: S1, S2. Regular. Abdomen: Soft. Bowel sounds present. Extremities: 2+ edema. Laboratory Data: Reviewed. Assessment And Plan: 1. Sacral wound. Continue wound VAC. Continue wound care as per Surgical team. 2. Urinary tract infection. 3. Protein-calorie malnourishment. 4. Dementia. Continue current antibiotic and supportive care and wound care. We will follow the patient as needed . NF/MODL Voice ID: [id number] Report ID: [id number]
--- NOTE | 2024-07-10 07:10 | P.PN ---
Date of Service: 07/09/24 Subjective: No new complaints Tolerating bolus feeds started Awaiting NH discharge Continue supportive care ROS: 10 point ROS as noted above, otherwise negative Physical exam GEN: AAO x2, NAD, afebrile CV: S1 S2 present, RRR, no murmur noted Pulm: Clear BBS, nonlabored breathing, on room air ABD: colostomy in place, obese, PEG tube in place Integumentary: No rashes Neuro: Normal speech, normal affect Vitals reviewed Assessment: Acute metabolic encephalopathy UTI Protein calorie malnutrition Hypokalemia likely 2/2 decreased PO intake Colostomy status Dementia Atrial fibrillation on chronic anticoagulation Sacral decubitus ulceration Plan: Acute metabolic encephalopathy UTI Urine culture grew E. coli, Morganella morganii, and Proteus mirabilis ESBL switched to Merrem Q8H no growth in 24 hours on blood cultures Afebrile, WBC WNL Dr Holland consulted, will require 2 weeks IV abx through 07/09- will complete today Protein calorie malnutrition Hypokalemia likely 2/2 decreased PO intake Red Hat Engineer following Patient consume less than 15% of her daily caloric/protein needs This was discussed with patient's , daughter who are in agreement with PEG tube PEG tube placed (07/05) Following Red Hat Engineer tube feed recs, now on bolus feeds 07/08 Continue PEG tube feeding (07/07) with MVI, thiamine, and folic acid Replace potassium and continue to monitor Colostomy status Noted Dementia Atrial fibrillation on chronic anticoagulation Continue home medications Sacral decubitus ulceration General Surgery following Plan for wound VAC placement Order placed for NH management of wound vac DVT PPX: Eliquis-on hold for surgery Code status: Full Discharge Plan: Senior Care Plan to discharge in: Greater than 2 days
--- NOTE | 2024-07-10 13:28 | P.DS ---
Admission Date: 06/22/24 Discharge Date: 07/10/24 Disposition: TRANSFER TO ASSISTED Discharge Condition: GOOD Reason for Admission: UTI, AMS Brief History of Present Illness: Diagnosis Acute metabolic encephalopathy UTI Protein calorie malnutrition Hypokalemia likely 2/2 decreased PO intake Colostomy status Dementia Atrial fibrillation on chronic anticoagulation Sacral decubitus ulceration HPI 06/22/24 73-year-old female history of dementia, atrial fibrillation, colostomy bedbound presents emergency department with chief complaint of concern for infection from detention. She was evaluated in the emergency department her labs are significant for leukocytosis with white blood cell count of 15.4 hemoglobin 11.9 sodium 130 lactic acid 1.3 UA concerning for urinary tract infection. She also has a known sacral decubitus ulceration which does not appear obviously infected at this time. CT of the abdomen and pelvis was obtained which was negative for acute findings CT head also obtained resulted negative. Patient with AMS, confusion, UTI will be admitted for further management. Hospital Course: Gwendolyn was admitted and treated for the following diagnoses Acute metabolic encephalopathy UTI Protein calorie malnutrition Hypokalemia likely 2/2 decreased PO intake Colostomy status Dementia Atrial fibrillation on chronic anticoagulation Stage III Sacral decubitus ulceration Urine culture grew E. coli, Morganella morganii, and Proteus mirabilis ESBL, completed antibiotic course with Merrem (07/09) Wound culture grew EColi, Morganella Morganii, and proteus Mirabilis Esbl No growth in 24 hours on blood cultures Dr Holland consulted, will require 2 weeks IV abx through 07/09- will complete today Patient consumed less than 15% of her daily caloric/protein needs, PEG tube placed (07/05) by doctor Hurtado Tolerated bolus feeds 07/08 with added MVI, Thiamine, and folic acid Replace potassium and continue to monitor Colostomy managed this admisison Planned for wound VAC placement at the detention Continued home medications On 07/10/24, Gwendolyn was seen on morning rounds hemodynamically stable. She remains stable for discharge with new PEG tube in place tolerating bolus feeds since 07/08/24. Multivitamin, Thiamine, and folic acid prescribed. Physical exam GEN: sleeping, oriented x1, No acute distress CV: S1 S2 present, RRR, no murmur noted Pulm: symmetrical chest wall movement, on room air ABD: colostomy in place, obese, PEG tube in place Integumentary: No rashes Neuro: Normal speech, normal affect Vital Signs/Physical Exam: Temp Pulse Resp BP Pulse Ox 97.9 F 92 H 16 124/70 97 07/10/24 12:00 07/10/24 12:00 07/10/24 12:00 07/10/24 12:00 07/10/24 12:00 Laboratory Data at Discharge: WBC 10.70 thou/uL (4.3-10.9) 07/06/24 07:13 Hgb 11.0 g/dL (12.0-15.0) L 07/06/24 07:13 Hct 33.8 % (36.0-45.0) L 07/06/24 07:13 Plt Count 270 thou/uL (152-406) 07/06/24 07:13 PT 17.3 SECONDS (10-13.0) H 07/05/24 07:48 INR 1.55 07/05/24 07:48 APTT 32.3 SECONDS (27.2-37.4) 07/05/24 07:48 Sodium 141 mEq/L (136-145) 07/10/24 11:03 Potassium 4.0 mEq/L (3.5-5.1) D 07/10/24 11:03 BUN 23 mg/dL (7-18) H 07/10/24 11:03 Creatinine 0.40 mg/dL (0.55-1.02) L 07/10/24 11:03 Glucose 153 mg/dL (74-106) H 07/10/24 11:03 Phosphorus 1.9 mg/dL (2.5-4.9) L 07/09/24 08:00 Magnesium 1.3 mg/dL (1.6-2.4) L 07/09/24 08:00 Total Bilirubin 0.4 mg/dL (0.2-1.0) 06/21/24 21:33 AST 16 U/L (15-37) 06/21/24 21:33 ALT < 14 U/L (13-56) 06/21/24 21:33 Alkaline Phosphatase 105 U/L (45-117) 06/21/24 21:33 Home Medications: Acetaminophen [Tylenol Extra Strength] 500 mg PO DAILYPRN PRN 05/09/24 Apixaban [Eliquis] 5 mg PO BID 06/22/24 Benzonatate [Tessalon Perle*] 100 mg PO TID 06/22/24 Escitalopram Oxalate [Lexapro] 10 mg PO DAILY 06/22/24 Morphine *Extended Release* [MS Contin*] 15 mg PO BID 06/22/24 Apixaban [Eliquis] 5 mg PO BID 06/28/24 Ensure Max Protein 330 ml PO TID can 06/28/24 Mupirocin Calcium [Bactroban Nasal*] 1 appl YARA BID tube 06/28/24 Folic Acid 1 mg PO DAILY 30 Days #30 tab 07/08/24 Multivitamin Oral Liq [Theravite Liq*] 5 ml FT DAILY 30 Days #150 ml 07/08/24 Thiamine HCl [Vitamin B-1*] 100 mg PO DAILY 30 Days #30 tab 07/08/24 New Medications: Folic Acid 1 mg PO DAILY 30 Days #30 tab Multivitamin Oral Liq [Theravite Liq*] 5 ml FT DAILY 30 Days #150 ml Thiamine HCl [Vitamin B-1*] 100 mg PO DAILY 30 Days #30 tab Physician Discharge Instructions: 1. Please call and schedule a follow-up appointment with your PCP in 3-5 days - Please follow-up with your PCP for medication refills/adjustments 2. Please call and schedule a follow-up appointment with Dr. Hurtado in one week 3. Continue Pureed diet, high protein Ensure TID -Monitor intake and output 4. activity restrictions fall precaution, specialized mattress 5. Return to the ED if symptoms worsen New medication Folic acid 1 mg daily Thiamine 100 mg daily Multivitamin 15 mL daily Tube feeding plan 1. Bolus TF of Jevity 1.2 at 2 cans TID (6 cans/day) - Continue liquid protein (prosource) 1 pkg BID + Sharath 1 pkt BID - Free water flush 50 mL before and after each bolus feed 2. Oral diet: as medically feasible, resume Regular diet for pleasure feeds. - If appetite and po intake increase, reduce bolus TF to 4 cans BID 3. Pt at high risk for refeeding, consider MVI + folic acid, thiamine. Obtain BMP labs at least q12h during TF advancement. Plan of Care: RD following - Provided TF recs Renasys wound vac: Pressure setting 120: mmHg Intensity: moderate Cycle Setting: Continuously Dressing Type: Renasys foam black small Dressing Change: every Mon, Wed, and Fri Diet: Regular Activity: Fall precautions Followup: Viji Disla MD [Primary Care Provider] - 1-2 Weeks
[2024-07-10 16:34] VITALS: BP 129/67; TEMP 97.8
--- NOTE | 2024-07-10 20:34 | P.PN ---
Date of Service: 07/10/24 Subjective ROS reviewed and negative unless stated in HPI. Pt's at bedside. pt will be discharge today Objective Temp Pulse Resp BP Pulse Ox 97.8 F 100 H 16 129/67 98 07/10/24 16:00 07/10/24 16:00 07/10/24 16:00 07/10/24 16:00 07/10/24 16:00 General: Pt seem lying in bed, not in any acute cardiopulmonary distress. neuro: ao x 2. slow speech HEENT: Unremarkable. [place] Neck: Supple. Lungs: CTA Heart: S1, S2. Regular. Abdomen: Soft, nontender. Bowel sounds present. msk: generalized edema Laboratory Data: Shows WBC 10.7, hemoglobin 11, platelets are 270. Chemistry shows BUN of 11, creatinine 0.438 06/22/24 wound sacral E. coli and Proteus mirabilis ESBL 06/22/24 urine Cultures E. coli, Morganella Morganii and Proteus mirabilis ESBL 06/21/24 negative blood culture Assessment And Plan: 1. sacral wound stage III infected with E. coli and Proteus mirabilis ESBL. completed meropenum for 2 weeks. off abx Consider using Dakin's solution to the wound site on daily basis. Consider keeping the patient offloaded for the wound site. We will follow the patient closely. 2. UTI positive for E. coli and Morganella morganii and Proteus mirabilis ESBL with pyuria. CT scan showing cholelithiasis, no acute inflammatory process. completed meropenum for 2 week. off abx now 3.Anemia of chronic disease 4.Moderate protein-calorie malnourishment. case rounded and in agreement with Dr Holland
== END 2024-07-10 18:23 | DRG 689 ==
LOC: ER 20:58 → ERHOLD 06-22 06:54 → 2ND 06-22 18:11
PROVIDERS: ADMIT Hospitalist; ATTEND Internal Medicine
PROC: 02HV33Z Insertion of Infusion Device into Superior Vena Cava, Percutaneous Approach (ICD-10-PCS; 2024-06-26)
PROC: 0T9B70Z Drainage of Bladder with Drainage Device, Via Natural or Artificial Opening (ICD-10-PCS; 2024-06-28)
PROC: 0DH63UZ Insertion of Feeding Device into Stomach, Percutaneous Approach (ICD-10-PCS; principal; 2024-07-05 16:45)
PROC: 0DB78ZX Excision of Stomach, Pylorus, Via Natural or Artificial Opening Endoscopic, Diagnostic (ICD-10-PCS; 2024-07-05 16:45)
DX: N39.0 Urinary tract infection, site not specified (principal); G93.41 Metabolic encephalopathy; L89.153 Pressure ulcer of sacral region, stage 3; K29.51 Unspecified chronic gastritis with bleeding; Z68.42 Body mass index [BMI] 45.0-49.9, adult; Z16.12 Extended spectrum beta lactamase (ESBL) resistance; E44.0 Moderate protein-calorie malnutrition; E66.01 Morbid (severe) obesity due to excess calories; I48.91 Unspecified atrial fibrillation; E87.6 Hypokalemia; I10 Essential (primary) hypertension; K80.20 Calculus of gallbladder without cholecystitis without obstruction; D63.8 Anemia in other chronic diseases classified elsewhere; F03.90 Unspecified dementia, unspecified severity, without behavioral disturbance, psychotic disturbance, mood disturbance, and anxiety; B96.89 Other specified bacterial agents as the cause of diseases classified elsewhere; B96.4 Proteus (mirabilis) (morganii) as the cause of diseases classified elsewhere; B96.20 Unspecified Escherichia coli [E. coli] as the cause of diseases classified elsewhere; Z93.3 Colostomy status; Z88.2 Allergy status to sulfonamides; Z74.01 Bed confinement status; Z98.51 Tubal ligation status; Z79.01 Long term (current) use of anticoagulants; Z79.899 Other long term (current) drug therapy
CPT/HCPCS: 36415; 51702; 70450; 71045; 74177; 80048; 80053; 80202; 81001; 82947; 83605; 83735; 84100; 84132; 84484; 85025; 85027; 85610; 85730; 87040; 87070; 87077; 87086; 87088; 87186; 87205; 88305; 88312; 92526; 92610; 93005; 96365; 96366; 96375; 99285; J0692; J2185; J2405; J2470; J2704; J3010; J3370; J3480; J7030; J7040; J7050; J7120; Q9967

== ENCOUNTER 2024-07-27 14:08 | Inpatient (IN) | payer OTHER ==
--- OUTSIDE RECORDS SUMMARY | 2024-07-27 14:21 | XMS REPORT | Continuity of Care Document ---
Author Name Unknown Address [address] [place] [address] [facility] [place] Address [address] [place] [address] Care Team Providers Care Civil Rights Representative Name Role Phone Khanh Alvarado Primary Care Physician [phone] Service/[place], Surgery C Attending Clinician U jed Andrade RN, Cinthya Anthony Attending Clinician Ivana Saravia MD, Jr Attending Clinician [phone] Ck BROOKS, Toney Attending Clinician [phone] Isrrael Galindo DO Attending Clinician [phone] Gopi Alves MD Attending Clinician [phone] Wilton BROOKS, Kentrell Attending Clinician [phone] Bashir Carvalho MD Attending Clinician [phone] Sanya BROOKS, Taylor Attending Clinician [phone] Jeb BROOKS, Lopez Arcos Attending Clinician [phone] Ivan Rogers MD Attending Clinician Daisy Nelson RN Attending Clinician Unavailable ALEX SMITH Attending Clinician ALEX Norman Attending Clinician Davy Chinchilla MD, Pablo Harris Attending Clinician [phone] Stefanie Johnson MD Attending Clinician [phone] Alex Smith MD Attending Clinician [phone] Isrrael Galindo DO Admitting Clinician [phone] Jr Saravia MD Admitting Clinician STEFANIE JOHNSON Admitting Clinician Stefanie Gonzales MD Admitting Clinician [phone] Payers Payer Name Policy Type Policy Number Effective Date Expirati on Date Source Problems Condition Name Condition Details Condition Category Status Onset Date Resolution Date Last Treatment Date Treating Clinician Comments Source Wound infection after surgery Wound infection after surgery Disease Active 2023-03 012 00:00: 00 [facility] Colon perforatio n Colon perforatio n Disease Active 12-02 00:00: 00 [facility] Abdominal pain, unspecifie d abdominal location Abdominal pain, unspecifie d abdominal location Disease Active 11-19 00:00: 00 [facility] Allergies, Adverse Reactions, Alerts Allergy Name Allergy Type Status Severity Reaction(s) Onset Date Inactive Date Treating Clinician Comments Source NO KNOWN ALLERGIE S Drug Class Active [facility] Social History Social Habit Start Date Stop Date Quantity Comments Source History of tobacco use Cigarette Smoker [facility] Sexual orientation [facility] History of Social function 2024-01-07 00:00:00 2024-01-07 00:00:00 [facility] Cigarettes smoked current (pack per day) - Reported 2023-11-22 00:00:00 2023-11-22 00:00:00 [facility] Cigarette pack-years 2023-11-22 00:00:00 2023-11-22 00:00:00 [facility] Tobacco use and exposure 2023-11-22 00:00:00 2023-11-22 00:00:00 Smokeless tobacco non-user [facility] Sex assigned at 1950 00:00:00 1950 00:00:00 [facility] Smoking Status Start Date Stop Date Source Ex-smoker 2023-11-22 00:00:00 2023-11-22 00:00:00 [facility] Medications Ordered Medication Name Filled Medication Name Start Date Stop Date Current Medication? Ordering Clinician Indication Dosage Frequency Signature (SIG) Comments Components Source acetaminoph en 325 mg tablet 2023-03 00:00: 00 01-14 04:59 :00 No [id number] 650mg Take 2 tablets by mouth every 8 (eight) hours as needed for Pain (scale 1-3). [facility] HYDROcodone -acetaminop hen 5-325 mg tablet 2023-03 00:00: 00 01-28 05:59 :00 No [id number] 1{tbl} Take 1 tablet by mouth every 6 (six) hours as needed for Pain (scale 7-10) for up to 14 days. Indication s: acute pain, chronic pain [facility] HYDROcodone -acetaminop hen (NORCO 5) tablet 1 tablet 2023-03 21:42: 53 01-13 18:45 :35 No 1{tbl} 1 tablet, Oral, Q4HPRN, Starting on Mon01/12/24 at 1642, Until 01/14/24 at 1345, Routine, Pain (scale 4-6) [facility] acetaminoph en (TYLENOL) tablet 650 mg 2023-03 21:42: 37 Yes 650mg 650 mg, Oral, Q8HPRN, Starting on Mon01/12/24 at 1642, Until Discontinu ed, Routine, Pain (scale 1-3) [facility] HYDROcodone -acetaminop hen (NORCO) 10-325 mg tablet 1 tablet 2023-03 17:00: 00 01-10 18:34 :00 No 1{tbl} 1 tablet, Oral, ONCE, 1 dose, On Mon01/11/24 at 1200, Routine [facility] sodium hypochlorit e 0.25% (DAKIN'S SOLUTION) solution 2023-03 13:00: 00 01-13 18:45 :35 No Topical, BID, First dose (after last modificati on) on Mon01/10/24 at 0800, Until Discontinu ed, Routine [facility] metoprolol tartrate (LOPRESSOR) tablet 25 mg 2023-03 13:00: 00 01-13 18:45 :35 No 25mg 25 mg, Oral, BID, First dose (after last modificati on) on Mon01/10/24 at 0800, Until Discontinu ed, Routine [facility] tamsulosin (FLOMAX) capsule 0.4 mg 2023-0316 04:00: 00 01-13 18:45 :35 No .4mg 0.4 mg, Oral, DAILY, First dose on Mon01/09/24 at 2300, Until Discontinu ed, Routine [facility] simethicone (GAS RELIEF (SIMETHICON E)) chewable tablet 80 mg 2023-03 014 02:00: 00 01-13 18:45 :35 No 80mg 80 mg, Oral, PC+HS, First dose on Mon01/07/24 at 2100, Until Discontinu ed, Routine [facility] NaCl 0.9% (NS) injection 10 mL 2023-03 21:13: 50 01-13 18:45 :35 No 10mL 10 mL, Slow IV Push, PRN, Starting on Mon01/07/24 at 1613, Until 01/14/24 at 1345, Routine, line maintenanc e [facility] lidocaine 1% (PF) (XYLOCAINE) injection 5 mL 2023-03 21:13: 50 01-13 18:45 :35 No 5mL 5 mL, Subcutaneo us, PRN, 1 dose, Starting on Mon01/07/24 at 1613, Until Mon01/14/24 at 1345, Routine, Local anesthesia [facility] gabapentin (NEURONTIN) capsule 100 mg 2023-03 14:00: 00 01-13 18:45 :35 No 100mg 100 mg, Oral, DAILY, First dose on Mon01/07/24 at 0900, Until Discontinu ed, Routine [facility] docusate (COLACE) capsule 100 mg 2023-03 14:00: 00 01-13 18:45 :35 No 100mg 100 mg, Oral, DAILY, First dose on Mon01/07/24 at 0900, Until Discontinu ed, Routine [facility] pantoprazol e (PROTONIX) EC tablet 40 mg 2023-03 14:00: 00 01-13 18:45 :35 No 40mg 40 mg, Oral, DAILY, First dose on 01/07/24 at 0900, Until Discontinu ed, Routine, Indication for use: None of the above [facility] sodium hypochlorit e 0.25% (DAKIN'S SOLUTION) solution 2023-03 14:00: 00 01-09 02:11 :25 No Topical, QAM, First dose on 01/07/24 at 0900, Until Discontinu ed, Routine [facility] sodium chloride (OCEAN MIST NASAL) 0.65 % nasal spray 1 [place] 2023-03 13:45: 07 01-13 18:45 :35 No 1{spray } 1 [place], Nasal, QIDPRN, Starting on Mon01/07/24 at 0845, Until 01/14/24 at 1345, Routine, Nasal drying [facility] diphenhydrA MINE (BENADRYL) tablet 25 mg 2023-03 13:43: 25 01-13 18:45 :35 No 25mg 25 mg, Oral, Q4HPRN, Starting on 01/07/24 at 0843, Until 01/14/24 at 1345, Routine, Itching, Mild Rash, Congestion /Allergies [facility] apixaban (ELIQUIS) tablet 5 mg 2023-03 13:00: 00 01-13 18:45 :35 No 5mg 5 mg, Oral, BID, First dose on Mon01/07/24 at 0800, Until Discontinu ed, Routine, Indication s: Non-Valvul ar Atrial Fibrillati on [facility] magnesium sulfate in water 4 gram/50 mL (8 %) IV Piggyback 4 g 2023-03 08:45: 00 01-06 10:18 :00 No 4g 4 g, IV Piggyback, at 25 mL/hr Administer over 120 Minutes, ONCE, 1 dose, On 01/07/24 at 0345, Routine [facility] piperacilli n-tazobacta m (ZOSYN) 3.375 g in NaCl 0.9% (NS) 100 mL MINI-BAG 2023-03 08:30: 00 01-08 18:05 :10 No 3.375g 3.375 g, IV Piggyback, Q8H ABX, 21 doses, First dose on 01/07/24 at 0330, [facility] 1930, Administer over 4 Hours, 100 mL, Reason for Anti-Infec tive: Documented Infection, Documented Infection Site: Skin / Soft Tissue, Duration of Therapy: 7 days [facility] sucralfate (CARAFATE) tablet 1 g 2023-03 02:00: 00 01-13 18:45 :35 No 1g 1 g, Oral, AC+HS, [facility]/24 at 2100, Until Discontinu ed, Routine [facility] QUEtiapine (SEROQUEL) tablet 25 mg 2023-03 02:00: 00 01-13 18:45 :35 No 25mg 25 mg, Oral, QHS, [facility] 01/[facility]/24 at 2100, Until Discontinu ed, Routine [facility] metoprolol tartrate (LOPRESSOR) tablet 25 mg 2023-03 01:00: 00 01-09 02:11 :25 No 25mg 25 mg, Oral, BID, [facility] dose [facility] 01/06/24 at 2000, Until Discontinu ed, Routine [facility] methocarbam oL (ROBAXIN) tablet 1,000 mg 2023-03 00:02: 10 01-13 18:45 :35 No 1000mg 1,000 mg, Oral, TIDPRN, Starting [facility] 01/06/24 at 1902, Until [place] 01/14/24 at 1345, Muscle Spasms [facility] ondansetron (ZOFRAN (PF)) injection 4 mg 2023-03 23:55: 25 01-13 18:45 :35 No 4mg 4 mg, Slow IV Push, Q6HPRN, Starting on 01/06/24 at 1855, Until 01/14/24 at 1345, Routine, Nausea and Vomiting (N/V) [facility] morphine (2 mg/mL) injection 2 mg 2023-03 23:55: 22 01-13 18:45 :35 No 2mg 2 mg, Slow IV Push, Q4HPRN, Starting on 01/06/24 at 1855, Until 01/14/24 at 1345, Routine, Pain (scale 7-10), Pain unrelieved by scheduled analgesics [facility] HYDROcodone -acetaminop hen (NORCO 5) tablet 1 tablet 2023-03 23:55: 17 01-11 21:44 :07 No 1{tbl} 1 tablet, Oral, Q6HPRN, Starting on 01/06/24 at 1855, Until 01/12/24 at 1644, Routine, Pain (scale 4-6) [facility] apixaban 5 mg tablet 2023-03 00:00: 00 03-02 05:59 :00 No 5mg Take 1 tablet by mouth in the morning and 1 tablet in the evening. Do all this for 60 days. Indication s: non valvular a fib [facility] docusate 100 mg capsule 2023-03 00:00: 00 01-29 05:59 :00 No [id number] 100mg Take 1 capsule by mouth in the morning for 30 days. [facility] traMADoL 50 mg tablet 2023-03 00:00: 00 Yes [id number] 50mg Take 1 tablet by mouth every 6 (six) hours as needed for Pain (scale 7-10) for up to 15 doses. Indication s: acute pain [facility] metoprolol tartrate 25 mg tablet 2023-03 00:00: 00 02-27 05:59 :00 No [id number] 25mg Take 1 tablet by mouth in the morning and 1 tablet in the evening. Do all this for 60 days. [facility] methocarbam oL 1,000 mg Tab 2023-03 0-04 00:00: 00 01-28 05:59 :00 No [id number] 1000mg Take 1,000 mg by mouth 3 (three) times daily as needed for Pain (scale 1-3) for up to 30 days. [facility] QUEtiapine 25 mg tablet 2023-03 0-04 00:00: 00 01-28 05:59 :00 No [id number] 25mg Take 1 tablet by mouth at bedtime for 30 days. [facility] sodium hypochlorit e 0.25% solution 2023-03 0- 00:00: 00 01-28 05:59 :00 No [id number] Apply to area(s) every morning for 30 days. [facility] sucralfate 1 gram tablet 2023-03 00:00: 00 01-28 05:59 :00 No [id number] 1g Take 1 tablet by mouth before meals and at bedtime for 30 days. [facility] sodium chloride 0.65 % nasal spray 2023-03 0 00:00: 01-28 05:59 :00 No [id number] 1{spray } Use 1 [place] in each nostril in the morning and 1 [place] in the evening. Do all this for 30 days. [facility] acetaminoph en 500 mg tablet 2023-03 0 00:00: 00 01-13 00:00 :00 No [id number] 1000mg Take 2 tablets by mouth every 8 (eight) hours. [facility] apixaban 5 mg tablet 2023-03 0-04 00:00: 00 12-31 04:59 :00 No 10mg Take 2 tablets by mouth in the morning and 2 tablets in the evening. Do all this for 2 days. Indication s: non valvular a fib [facility] polyethylen e glycol 3350 powder 17 g 2023-03 0-03 14:00: 00 Yes 17g 17 g, Oral, DAILY, First dose (after last modificati on) on [place] 12/28/23 at 0900, Until Discontinu ed, Routine [facility] docusate (COLACE) capsule 100 mg 2023-03 14:00: 00 Yes 100mg 100 mg, Oral, DAILY, First dose on Mon12/26/23 at 0900, Until Discontinu ed, Routine [facility] apixaban (ELIQUIS) tablet 10 mg [...] ar Atrial Fibrillati on [Order 2 End] [facility] sodium chloride (OCEAN MIST NASAL) 0.65 % nasal spray 1 [place] 12-22 01:00: 00 01-05 00:59 :00 No 1{spray } 1 [place], Nasal, BID, 28 doses, First dose (after last reorder) on Mon12/22/23 at 1999, Last dose on Mon01/05/24 at 0800, Routine [facility] fluticasone propionate 50 mcg/actuati on nasal spray 1 [place] 12-22 01:00: 00 01-05 00:59 :00 No 1{spray } 1 [place], Nasal, BID, 28 doses, First dose (after last reorder) on Mon12/22/23 at 1999, Last dose on Mon01/05/24 at 0800, Routine [facility] sodium hypochlorit e 0.5% (DAKINS) solution 20 mL 12-21 21:00: 00 12-25 13:26 :37 No 20mL 20 mL, Topical, QID, First dose on Mon12/22/23 at 1600, Until Discontinu ed, Routine [facility] iopamidol (ISOVUE 370-500 mL) injection 120 mL 12-21 18:45: 00 12-21 18:45 :00 No [id number] 120mL 120 mL, Intravenou s, ONCE, 1 dose, On Mon12/22/23 at 1345, Routine [facility] potassium chloride in water (KCL) 20 mEq/100 mL IV infusion 20 mEq 12-19 21:00: 00 12-20 03:00 :00 No 20meq 20 mEq, IV Piggyback, at 50 mL/hr Administer over 2 Hours, Q2H, 2 doses, First dose on Mon12/20/23 at 1600, Last dose on Mon12/20/23 at 1800, Routine [facility] guaiFENesin 100 mg/5 mL solution 100 mg 12-19 05:07: 11 Yes 100mg 100 mg, Oral, Q8HPRN, Starting on Mon12/20/23 at 0007, Until Discontinu ed, Routine, Cough [facility] magnesium sulfate in water 2 gram/50 mL (4 %) infusion 2 g 12-17 13:15: 00 12-17 16:13 :00 No 2g 2 g, IV Piggyback, Administer over 60 Minutes, ONCE, 1 dose, On Mon12/18/23 at 0815, Routine [facility] piperacilli n-tazobacta m (ZOSYN) 3.375 [...] Abdominal, Duration of Therapy: 7 days [facility] magnesium oxide (MAG-OX 400) 40 mg/mL oral suspension 400 mg 12-16 14:00: 00 12-23 16:21 :07 No 400mg 400 mg, Oral, DAILY, First dose on Mon12/17/23 at 0900, Until Discontinu ed, Routine [facility] enoxaparin (LOVENOX) injection 120 mg 12-16 01:00: 00 12-23 16:09 :20 No .7mg/kg 120 mg (rounded from 119.07 mg = 0.7 mg/kg ?170.1 kg), Subcutaneo us, Q12H, First dose on 12/16/23 at 2000, Until Discontinu ed, Routine [facility] NaCl 0.9% (NS) injection 10 mL 12-15 18:05: 16 Yes 10mL 10 mL, Slow IV Push, PRN, Starting on 12/16/23 at 1305, Until Discontinu ed, Routine, line maintenanc e [facility] lidocaine 1% (PF) (XYLOCAINE) injection 5 mL 12-15 18:05: 15 Yes 5mL 5 mL, Subcutaneo us, PRN, 1 dose, Starting on 12/16/23 at 1305, Until Discontinu ed, Routine, Local anesthesia [facility] haloperidol lactate (HALDOL) injection 5 mg 12-14 22:54: 22 Yes 5mg 5 mg, Slow IV Push, Q6HPRN, Starting on Mon12/15/23 at 1754, Until Discontinu ed, Routine, prior to dressing changes [facility] magnesium sulfate in water 2 gram/50 mL (4 %) infusion 2 g 12-14 13:15: 00 12-14 20:45 :00 No 2g 2 g, IV Piggyback, Administer over 60 Minutes, ONCE, 1 dose, On Mon12/15/23 at 0815, Routine [facility] potassium chloride in water (KCL) 20 mEq/100 mL RTU IVPB 20 mEq 12-14 03:45: 00 12-14 07:44 :00 No 20meq 20 mEq, IV Piggyback, at 50 mL/hr Administer over 2 Hours, Q2H ES, 2 doses, First dose on [place] 12/14/23 at 2245, Last dose on Mon12/15/23 at 0045, DIMAS [facility] loratadine (CLARITIN) tablet 10 mg 12-14 03:00: 00 12-21 18:25 :22 No 10mg 10 mg, Oral, DAILY, First dose on Mon12/14/23 at 2200, Until Discontinu ed, Routine [facility] metoprolol tartrate (LOPRESSOR) tablet 25 mg 12-13 01:00: 00 Yes 25mg 25 mg, Oral, BID, First dose (after last reorder) on Mon12/13/23 at 2000, Until Discontinu ed, Routine [facility] potassium chloride in water (KCL) 20 mEq/100 mL RTU IVPB 20 mEq 12-12 20:00: 00 12-13 00:42 :00 No 20meq 20 mEq, IV Piggyback, at 50 mL/hr Administer over 2 Hours, Q2H ES, 2 doses, First dose on Mon12/13/23 at 1500, Last dose on Mon12/13/23 at 1700, Routine [facility] haloperidol lactate (HALDOL) injection 5 mg 12-12 14:08: 54 12-14 22:54 :50 No 5mg 5 mg, Slow IV Push, Q6HPRN, Starting on Mon12/13/23 at 0908, Until Mon12/15/23 at 1754, Routine, Hyperactiv e agitation, pulling out IV lines [facility] potassium chloride in water (KCL) 20 mEq/100 mL RTU IVPB 20 mEq 12-12 12:47: 00 12-12 17:06 :01 No 20meq 20 mEq, IV Piggyback, at 50 mL/hr Administer over 2 Hours, Q2H ES, 2 doses, First dose on Mon12/13/23 at 0800, Last dose on Mon12/13/23 at 1000, DIMAS [facility] phytonadion e (VITAMIN K) 5 mg in NaCl 0.9% (NS) piggyback 12-12 09:00: 12-12 09:39 :00 No 5mg IV Piggyback, ONCE, 1 dose, On Mon12/13/23 at 0400, 50 mL [facility] QUEtiapine (SEROQUEL) tablet 25 mg 12-12 02:00: 00 Yes 25mg 25 mg, Oral, QHS, First dose on Mon12/12/23 at 2100, Until Discontinu ed, Routine [facility] furosemide (LASIX) injection 20 mg 12-12 01:00: 00 12-15 02:55 :14 No 20mg 20 mg, Slow IV Push, Q12H, First dose (after last modificati on) on Mon12/12/23 at 2000, Until [facility]continu ed, [facility]PORCINE[facility] 1,000 UNIT/ML BOLUS ACS ORDER SET 12-10 16:15: 00 12-10 22:00 :00 No 4000U 4,000 Units, IV Push, ONCE, 1 dose, On Mon12/11/23 at 1115, [facility] 25,000 Units/250 mL (Premixed Bag) [...] INITIAL BOLUS OR INITIAL INFUSION RATE. [facility] heparin (1,000 unit/mL, 10 mL vial) for Rebolusing 12-10 16:10: 55 12-15 21:32 :38 No 3000U FOR REBOLUSING , Starting on Mon12/11/23 at 1110, Until 12/16/23 at 1632, Routine, Dosing based on aPPT testing parameters (refer to continuous heparin drip order). [facility] methocarbam oL (ROBAXIN) tablet 1,000 mg 12-10 14:52: 46 Yes 1000mg 1,000 mg, Oral, TIDPRN, Starting on Mon12/11/23 at 0952, Until Discontinu ed, Routine, Muscle Spasms [facility] metoprolol tartrate (LOPRESSOR) tablet 25 mg 12-10 14:45: 00 12-12 18:48 :53 No 25mg 25 mg, Oral, BID, First dose on Mon12/11/23 at 0945, Until Discontinu ed, Routine [facility] magnesium sulfate in water 2 gram/50 mL (4 %) infusion 2 g 12-10 12:00: 00 12-10 14:42 :00 No 2g 2 g, IV Piggyback, Administer over 60 Minutes, ONCE, 1 dose, On Mon12/11/23 at 0700, Routine [facility] potassium phosphate 30 mmol in NaCl 0.9% (NS) 250 mL piggyback 12-10 11:12: 00 12-10 17:20 :00 No 30mmol 30 mmol, IV Piggyback, ONCE, 1 dose, On Mon12/11/23 at 0615, 250 mL [facility] potassium chloride in water (KCL) 20 mEq/100 mL RTU IVPB 20 mEq 12-10 11:00: 00 12-10 15:42 :00 No 20meq 20 mEq, IV Piggyback, at 50 mL/hr Administer over 2 Hours, Q2H, 2 doses, First dose on Mon12/11/23 at 0600, Last dose on Mon12/11/23 at 0800, Routine [facility] furosemide (LASIX) injection 40 mg 12-09 14:15: 00 12-11 17:01 :40 No 40mg 40 mg, Slow IV Push, Q12H, First dose on [place] 12/10/23 at 0915, Until Discontinu ed, DIMAS [facility] potassium chloride in water (KCL) 20 mEq/100 mL RTU IVPB 20 mEq 12-09 12:00: 00 12-09 13:50 :42 No 20meq 20 mEq, IV Piggyback, at 50 mL/hr Administer over 2 Hours, ONCE, 1 dose, On [place] 12/10/23 at 0700, Routine [facility] KCL (KLOR-CON M20) tablet 40 mEq 12-09 01:00: 00 12-19 19:14 :39 No 40meq 40 mEq, Oral, BID, First dose (after last modificati on) [facility]23 at 2000, Until Discontinu ed, DIMAS [facility] QUEtiapine (SEROQUEL) tablet 50 mg 12-09 01:00: 00 12-10 16:56 :22 No 50mg 50 mg, Oral, BID, [facility] 12/[facility]/23 at 2000, Until Discontinu ed, Routine [facility] KCL (KLOR-CON M20) tablet 40 mEq 12-08 17:45: 00 12-08 17:09 :00 No 40meq 40 mEq, Oral, ONCE, 1 dose, On [facility] 12/[facility] at 1245, DIMAS [facility] sucralfate (CARAFATE) tablet 1 g 12-08 16:30: 00 Yes 1g 1 g, Oral, AC+HS, First dose on Mon12/09/23 at 1130, Until Discontinu ed, Routine [facility] fluticasone propionate 50 mcg/actuati on nasal spray 1 [place] 12-08 01:00: 00 12-22 00:59 :00 No 1{spray } 1 [place], Nasal, BID, 28 doses, First dose on Mon12/08/23 at 1999, Last dose on Mon12/22/23 at 0800, Routine [facility] sodium chloride (OCEAN MIST NASAL) 0.65 % nasal spray 1 [place] 12-08 01:00: 00 12-22 00:59 :00 No 1{spray } 1 [place], Nasal, BID, 28 doses, First dose on Mon12/08/23 at 1999, Last dose on Mon12/22/23 at 0800, Routine [facility] oxymetazoli ne (OXYMETAZOL INE HCL) 0.05 % nasal spray 1 [place] 12-08 01:00: 00 12-11 00:59 :00 No 1{spray } 1 [place], Nasal, BID, 6 doses, First dose on Mon12/08/23 at 1999, Last dose on Mon12/11/23 at 0800, Routine [facility] acetaminoph en (TYLENOL) tablet 1,000 mg 12-07 19:00: 00 Yes 1000mg 1,000 mg, Oral, Q8H, First dose on Mon12/08/23 at 1400, Until Discontinu ed, Routine [facility] methocarbam oL (ROBAXIN) tablet 1,000 mg 12-07 19:00: 00 12-10 14:31 :59 No 1000mg 1,000 mg, Oral, TID, First dose on Mon12/08/23 at 1400, Until Discontinu ed, Routine [facility] Potassium Bicarb-Citr ic Acid (EFFER-K) effervescen t tablet 40 mEq 12-07 17:00: 00 2024- 09-14 13:39 :42 No 40meq 40 mEq, Oral, BID, 6 doses, First dose on Mon12/08/23 at 1200, Last dose on Mon12/10/23 at 2000, Routine [facility] bismuth subsalicyla te (PEPTO BISMOL) chewable tablet 524 mg 12-07 16:28: 37 12-10 14:39 :38 No 524mg 524 mg, Oral, Q6HPRN, Starting on Mon12/08/23 at 1128, Until Mon12/11/23 at 0939, Routine, Indigestio n [facility] iopamidol (ISOVUE 370-500 mL) injection 80 mL 12-07 16:15: 00 12-07 16:10 :00 No [id number] 80mL 80 mL, Intravenou s, ONCE, 1 dose, On Mon12/08/23 at 1115, Routine [facility] pantoprazol e (PROTONIX) EC tablet 40 mg 12-07 15:45: 00 Yes 40mg 40 mg, Oral, DAILY, First dose on Mon12/08/23 at 1045, Until Discontinu ed, Routine [facility] furosemide (LASIX) injection 40 mg 12-07 12:54: 00 12-07 13:11 :00 No 40mg 40 mg, Slow IV Push, ONCE, 1 dose, On Mon12/08/23 at 0800, DIMAS [facility] potassium chloride in water (KCL) 20 mEq/100 mL RTU IVPB 20 mEq 12-07 11:00: 00 12-07 15:13 :41 No 20meq 20 mEq, IV Piggyback, at 50 mL/hr Administer over 2 Hours, Q2H, 2 doses, First dose on Mon12/08/23 at 0600, Last dose on Mon12/08/23 at 0800, Routine [facility] acetaminoph en (OFIRMEV) IV piggyback 1,000 mg 12-07 09:30: 00 12-07 08:58 :00 No 1000mg 1,000 mg, IV Piggyback, at 400 mL/hr Administer over 15 Minutes, ONCE, 1 dose, On Mon12/08/23 at 0430, Routine, Is the patient strict NPO and unable to tolerate oral medication s? Yes [facility] piperacilli n-tazobacta m (ZOSYN) 3.375 g [...] Site: Abdominal, Duration of Therapy: 7 days [facility] methocarbam oL (ROBAXIN) injection 1,000 mg 12-07 03:00: 00 12-07 13:43 :18 No 1000mg 1,000 mg, Slow IV Push, Q8H, First dose (after last reorder) on Mon12/07/23 at 2200, Until Discontinu ed, Administer over 3-5 Minutes [facility] Lidocaine (LIDOCARE) 4 % patch 1 Patch 12-07 01:30: 00 Yes 1{patch } 1 Patch, Topical, Administer over 12 Hours, DAILY, First dose on Mon12/07/23 at 2030, Until Discontinu ed, Routine [facility] acetaminoph en (OFIRMEV) IV piggyback 1,000 mg 12-07 01:30: 00 12-07 02:40 :00 No 1000mg 1,000 mg, IV Piggyback, at 400 mL/hr Administer over 15 Minutes, ONCE, 1 dose, On Mon12/07/23 at 2030, Routine, Is the patient strict NPO and unable to tolerate oral medication s? Yes [facility] HYDROmorpho ne (DILAUDID) injection 0.5 mg 12-07 01:27: 03 2024- 09-15 01:26 :03 No .5mg 0.5 mg, Intravenou s, Q4HPRN, Starting on [place] 12/07/23 at 2026, Until 12/09/23 at 2025, Routine, Pain (scale 7-10), Is this medication approved by a Faculty level provider? Yes, choir member approving Restricted medication : TONEY ELKINS [facility] traMADoL (ULTRAM) tablet 50 mg 12-07 01:26: 16 Yes 50mg 50 mg, Oral, Q6HPRN, Starting on Christie 12/07/23 at 2025, Until Discontinu ed, Routine, Pain (scale 7-10) [facility] acetaminoph en ([facility]) IV piggyback 1,000 mg 12-06 21:45: 00 12-06 22:44 :00 No 1000mg 1,000 mg, IV Piggyback, at 400 mL/hr Administer over 15 Minutes, ONCE, 1 dose, On Christie 12/07/23 at 1645, Routine, Is the patient strict NPO and unable to tolerate oral medication s? Yes [facility] methocarbam oL (ROBAXIN) injection 1,000 mg 12-06 19:00: 00 12-06 19:03 :00 No 1000mg 1,000 mg, Slow IV Push, Q8H, 1 dose, First dose (after last modificati on) on Christie 12/07/23 at 1400, Administer over 3-5 Minutes [facility] potassium chloride 40 mEq in 100 mL IVPB 12-06 14:00: 00 12-06 18:10 :00 No 40meq 40 mEq, Intravenou s, ONCE, 1 dose, On Christie 12/07/23 at 0900, 100 mL [facility] acetaminoph en (IRM) IV piggyback 1,000 mg 12-06 13:45: 00 12-06 13:41 :00 No 1000mg 1,000 mg, IV Piggyback, at 400 mL/hr Administer over 15 Minutes, ONCE, 1 dose, On Christie 12/07/23 at 0845, Routine, Is the patient strict NPO and unable to tolerate oral medication s? Yes [facility] acetaminoph en ([facility]) IV piggyback 1,000 mg 12-06 05:45: 00 12-06 06:07 :00 No 1000mg 1,000 mg, IV Piggyback, at 400 mL/hr Administer over 15 Minutes, ONCE, 1 dose, On Christie 12/07/23 at 0045, Routine, Is the patient strict NPO and unable to tolerate oral medication s? Yes [facility] heparin 1,000 unit/mL injection 1,000 Units 12-06 05:45: 00 12-06 05:17 :00 No 1000U ONCE, 1 dose, On Christie 12/07/23 at 0045, Routine, For Priming of Ports: After initial saline flush, prime each port with heparin according to the priming volume listed on each catheter port for catheter lock. [facility] acetaminoph en ([facility]) IV piggyback 1,000 mg 12-06 02:30: 00 12-06 01:02 :00 No 1000mg 1,000 mg, IV Piggyback, at 400 mL/hr Administer over 15 Minutes, ONCE, 1 dose, On Mon12/06/23 at 2130, Routine, Is the patient strict NPO and unable to tolerate oral medication s? Yes [facility] acetaminoph en ([facility]) IV piggyback 1,000 mg 12-05 18:30: 00 12-05 17:59 :00 No 1000mg 1,000 mg, IV Piggyback, at 400 mL/hr Administer over 15 Minutes, ONCE, 1 dose, On Mon12/06/23 at 1330, Routine, Is the patient strict NPO and unable to tolerate oral medication s? Yes [facility] dexMEDEtomi dine 200 mcg in [...] at maximum allowed dose, contact prescriber . [facility] glycerin/mi neral oil (AGLO ENEMA) (COMPOUNDED ) Enem 225 mL 12-05 14:45: 00 12-05 19:59 :00 No 225mL 225 mL, Rectal, ONCE, 1 dose, On Mon12/06/23 at 0945, Routine [facility] mineral oil (MINERAL OIL EXTRA HEAVY) oral liquid 30 mL 12-05 14:00: 00 Yes 30mL 30 mL, Oral, DAILY, First dose on Mon12/06/23 at 0900, Until Discontinu ed, Routine [facility] sodium hypochlorit e 0.25% (DAKIN'S SOLUTION) solution 12-05 14:00: 00 Yes Topical, QAM, First dose on Mon12/06/23 at 0900, Until Discontinu ed, Routine [facility] polyethylen e glycol 3350 powder 17 g 12-05 14:00: 00 12-25 13:28 :38 No 17g 17 g, Oral, DAILY, First dose on Mon12/06/23 at 0900, Until Discontinu ed, Routine [facility] lactated ringers IV infusion 1,000 mL 12-05 14:00: 00 12-12 21:44 :11 No 1000mL at 42 mL/hr, 1,000 mL, IV Infusion, CONTINUOUS , Starting on Mon12/06/23 at 0900, Until Mon12/13/23 at 1644, Routine [facility] furosemide (LASIX) injection 80 mg 12-05 12:00: 00 12-05 11:30 :00 No 80mg 80 mg, Slow IV Push, ONCE, 1 dose, On Mon12/06/23 at 0700, Routine [facility] acetaminoph en ([facility]) IV piggyback 1,000 mg 12-05 10:30: 00 12-05 10:51 :00 No 1000mg 1,000 mg, IV Piggyback, at 400 mL/hr Administer over 15 Minutes, ONCE, 1 dose, On Mon12/06/23 at 0530, Routine, Is the patient strict NPO and unable to tolerate oral medication s? Yes [facility] chlorhexidi ne (PERIDEX) 0.12 % mouthwash 15 mL 12-05 01:00: 00 Yes 15mL 15 mL, Oral (Swish And Spit Out), BID, First dose on Mon12/05/23 at 2000, Until Discontinu ed, Routine [facility] lactated ringers IV infusion 1,000 mL 12-04 16:45: 00 12-05 13:55 :24 No 1000mL at 100 mL/hr, 1,000 mL, IV Infusion, CONTINUOUS , Starting on Mon12/05/23 at 1145, Until Mon12/06/23 at 0855, Routine [facility] acetaminoph en ([facility]) IV piggyback 1,000 mg 12-04 15:45: 00 12-04 15:26 :00 No 1000mg 1,000 mg, IV Piggyback, at 400 mL/hr Administer over 15 Minutes, ONCE, 1 dose, On Mon12/05/23 at 1045, Routine, Is the patient strict NPO and unable to tolerate oral medication s? Yes [facility] heparin (porcine) injection 5,000 Units 12-04 13:00: 00 12-10 16:12 :08 No 5000U 5,000 Units, Subcutaneo us, Q8H, First dose on Mon12/05/23 at 0800, Until Discontinu ed, Routine [facility] NORepinephr ine (LEVOPHED) 4 mg/250 [...] intravenou s vasopresso r at a time. [facility] albumin (ALBUMINAR 25%) 25 % injection 25 g 12-04 10:15: 00 12-04 11:15 :00 No 25g 25 g, IV Infusion, ONCE, 1 dose, On Mon12/05/23 at 0515, 100 mL, Indication : NEPHROTIC SYNDROME (ACUTE, SEVERE PERIPHERAL OR PULMONARY EDEMA), Comments: Short-term use of albumin in combinatio n with diuretic therapy when: serum albumin <2 g/dL and optimal diuretic therapy alone has failed, choir member approving Restricted medication : TAYLOR SEGUNDO [facility] acetaminoph en (OFIRMEV) IV piggyback 1,000 mg 12-04 07:45: 00 12-04 08:46 :00 No 1000mg 1,000 mg, IV Piggyback, at 400 mL/hr Administer over 15 Minutes, ONCE, 1 dose, On Mon12/05/23 at 0245, Routine, Is the patient strict NPO and unable to tolerate oral medication s? Yes [facility] methocarbam oL (ROBAXIN) injection 1,000 mg 12-04 03:00: 00 12-06 15:31 :36 No 1000mg 1,000 mg, Slow IV Push, Q8H, First dose on Mon12/04/23 at 2200, Until Discontinu ed, Administer over 3-5 Minutes [facility] FENTanyl (PF) (SUBLIMAZE) injection 50 mcg 12-04 01:30: 00 12-04 00:30 :00 No 50ug 50 mcg, Slow IV Push, ONCE, 1 dose, On Mon12/04/23 at 2030, Routine [facility] albumin (ALBUMINAR 25%) 25 % injection 25 g 12-04 00:30: 00 12-04 01:30 :00 No 25g 25 g, IV Infusion, ONCE, 1 dose, On Mon12/04/23 at 1930, 100 mL, Indication : NEPHROTIC SYNDROME (ACUTE, SEVERE PERIPHERAL OR PULMONARY EDEMA), Comments: Short-term use of albumin in combinatio n with diuretic therapy when: serum albumin <2 g/dL and optimal diuretic therapy alone has failed, choir member approving Restricted medication : TONEY ELKINS [facility] acetaminoph en (OFIRMEV) IV piggyback 1,000 mg 12-03 23:45: 00 12-04 01:44 :04 No 1000mg 1,000 mg, IV Piggyback, at 400 mL/hr Administer over 15 Minutes, ONCE, 1 dose, On Mon12/04/23 at 1845, Routine, Is the patient strict NPO and unable to tolerate oral medication s? Yes [facility] sulfur hexafluorid e microsphr (LUMASON) injection 5 mL 12-03 20:45: 00 12-03 20:32 :00 No [id number] 5mL 5 mL, Intravenou s, ONCE, 1 dose, On Mon12/04/23 at 1545, Routine [facility] lactated ringers IV infusion 1,000 mL 12-03 19:45: 00 12-03 21:58 :00 No 1000mL at 999 mL/hr, 1,000 mL, Intravenou s, ONCE, 1 dose, On Mon12/04/23 at 1445, Routine [facility] furosemide (LASIX) injection 40 mg 12-03 17:30: 00 12-03 17:50 :00 No 40mg 40 mg, Slow IV Push, ONCE, 1 dose, On Mon12/04/23 at 1245, Routine [facility] albumin (ALBUMINAR 25%) 25 % injection 25 g 12-03 11:00: 00 12-03 12:27 :00 No 25g 25 g, IV Infusion, ONCE, 1 dose, On Mon12/04/23 at 0600, 100 mL, Indication : NEPHROTIC SYNDROME (ACUTE, SEVERE PERIPHERAL OR PULMONARY EDEMA), Comments: Short-term use of albumin in combinatio n with diuretic therapy when: serum albumin <2 g/dL and optimal diuretic therapy alone has failed, choir member approving Restricted medication : TAYLOR SEGUNDO [facility] metoprolol (LOPRESSOR) injection 5 mg 12-03 09:38: 03 12-03 23:33 :32 No 5mg 5 mg, Intravenou s, Q6HPRN, Starting on Mon12/04/23 at 0438, Until Mon12/04/23 at 1833, Routine, HR >110, atrial fibrillati on [facility] NORepinephr ine (LEVOPHED) 4 mg/250 mL [...] intravenou s vasopresso r at a time. [facility] fentaNYL PF (SUBLIMAZE) 10 mcg/mL in [...] at maximum allowed dose, contact prescriber . [facility] propofoL IV infusion 12-03 07:55: 49 [...] vials should be discarded after 12 hours. [facility] midazolam (VERSED) injection 12-03 06:32: 00 12-03 07:25 :17 No IV Push, ONCE INTRA PROCEDURE, Starting on Mon12/04/23 at 0132, Until Mon12/04/23 at 0225, Routine, Intra-op [facility] sodium hypochlorit e 0.25% (DAKIN'S SOLUTION) solution 12-03 05:53: 00 12-03 06:59 :50 No PRN, Starting on Mon12/04/23 at 0053, Until Mon12/04/23 at 0159, Routine, Intra-op [facility] Transfuse Packed RBC (in units)~ 12-03 03:27: 00 12-03 07:25 :17 No Routine [facility] NORepinephr ine (LEVOPHED) 4 mg in NaCl 0.9% (NS) 250 mL infusion 12-03 03:07: 00 12-03 07:25 :17 No IV Infusion, CONTINUOUS PRN, Starting on Mon12/03/23 at 2207, Intra-op [facility] Transfuse Packed RBC (in units)~On hold for procedure; 12/02 0800; Infuse Each Unit Over: 2 Hours 12-03 02:48: 41 12-03 07:25 :17 No Routine [facility] labetaloL (NORMODYNE) 5 mg/mL injection 12-03 02:40: 00 12-03 07:25 :17 No Slow IV Push, ONCE INTRA PROCEDURE, Starting on Mon12/03/23 at 2140, Until Mon12/04/23 at 0225, Routine, Intra-op [facility] lactated ringers IV infusion 12-03 01:26: 00 12-03 07:25 :17 No IV Infusion, CONTINUOUS PRN, Starting on Mon12/03/23 at 202, Until Mon12/04/23 at 022, Routine, Intra-op [facility] PHENYLephri ne 1000 mcg/10 mL in 0.9% NaCl syringe 12-03 01:09: 00 12-03 07:25 :17 No Slow IV Push, ONCE INTRA PROCEDURE, Starting on Mon12/03/23 at 2008, Until Mon12/04/23 at 0225, Routine, Intra-op [facility] NORepinephr ine (LEVOPHED) 4 mg in NaCl 0.9% (NS) 250 mL infusion 12-03 01:03: 00 12-03 07:25 :17 No IV Infusion, CONTINUOUS PRN, Starting on Mon12/03/23 at 2002, Intra-op [facility] rocuronium (ZEMURON) injection 12-03 00:56: 00 12-03 07:25 :17 No IV Push, ONCE INTRA PROCEDURE, Starting on Mon12/03/23 at 1956, Until Mon12/04/23 at 0225, Routine, Intra-op [facility] propofoL IV infusion 12-03 00:56: 00 12-03 07:25 :17 No Slow IV Push, ONCE INTRA PROCEDURE, Starting on Mon12/03/23 at 195, Until Mon12/04/23 at 022, Routine, [facility]-op [facility] lidocaine 1% (XYLOCAINE) 100 mg/10 mL (1 %) injection 12-03 00:56: 00 12-03 07:25 :17 No Slow IV Push, ONCE INTRA PROCEDURE, Starting on Mon12/03/23 at 1956, Until Mon12/04/23 at 022, Routine, Intra-op [facility] FENTanyl (PF) (SUBLIMAZE) injection 12-03 00:56: 00 12-03 07:25 :17 No Slow IV Push, ONCE INTRA PROCEDURE, Starting on Mon12/03/23 at 195, Until Mon12/04/23 at 022, Routine, Intra-op [facility] lactated ringers IV infusion 12-03 00:47: 00 12-03 07:25 :17 No IV Infusion, CONTINUOUS PRN, Starting on Mon12/03/23 at 1947, Until Mon12/04/23 at 022, Routine, Intra-op [facility] acetaminoph en (OFIRMEV) IV piggyback 1,000 mg 12-02 23:15: 00 12-02 22:43 :00 No 1000mg 1,000 mg, IV Piggyback, at 400 mL/hr Administer over 15 Minutes, ONCE, 1 dose, On Mon12/03/23 at 1815, Routine, Is the patient strict NPO and unable to tolerate oral medication s? Yes [facility] iopamidol (ISOVUE 370-500 mL) injection 80 mL 12-02 22:12: 00 12-02 22:30 :00 No [id number] 80mL 80 mL, Intravenou s, ONCE, 1 dose, On Mon12/03/23 at 1730, Routine [facility] pantoprazol e (PROTONIX) injection 40 mg 12-02 20:02: 27 12-07 16:33 :39 No 40mg 40 mg, Slow IV Push, Q24H, First dose (after last modificati on) on Mon12/03/23 at 1515, Until Discontinu ed [facility] HYDROmorpho ne (DILAUDID) injection 0.4 mg 12-02 18:53: 24 12-03 06:57 :49 No .4mg 0.4 mg, Intravenou s, Q5MIN PRN, 3 doses, Starting on Mon12/03/23 at 1353, Until Mon12/04/23 at 0157, Routine, Pain (scale 7-10), For disimpacti on, Is this medication approved by a Faculty level provider? Yes, choir member approving Restricted medication : TAYLOR SEGUNDO [facility] morpHINE 30 mg/30 mL (fixed dose) [employer] injection 12-02 18:45: 00 12-03 06:57 :49 No Patient Bolus Dose: 1 mg, Lockout Interval: 12 Minutes, Basal Rate: 0 mg/hr, Four Hour Dose Limit: 32 mg, Intravenou s, 30 mL, CONTINUOUS , Starting on Mon12/03/23 at 1345, Until Mon12/04/23 at 0157 [facility] naloxone (NARCAN) injection 0.4 mg 12-02 17:34: 30 Yes .4mg 0.4 mg, Slow IV Push, PRN, Starting on Mon12/03/23 at 1234, Until Discontinu ed, Routine, Sedation/R espiratory Depression [facility] piperacilli n-tazobacta m (ZOSYN) 3.375 g in NaCl 0.9% (NS) 100 mL MINI-BAG 12-02 16:30: 00 12-07 01:24 :56 No 3.375g 3.375 g, IV Piggyback, Q8H ABX, 15 doses, First dose on Mon12/03/23 at 1130, Last dose on Mon12/08/23 at 0330, Administer over 4 Hours, 100 mL, Reason for Anti-Infec tive: Documented Infection, Documented Infection Site: Abdominal, Duration of Therapy: 7 days [facility] acetaminoph en ([facility]) IV piggyback 1,000 mg 12-02 15:15: 00 12-02 15:34 :00 No 1000mg 1,000 mg, IV Piggyback, at 400 mL/hr Administer over 15 Minutes, ONCE, 1 dose, On Mon12/03/23 at 1015, Routine, Is the patient strict NPO and unable to tolerate oral medication s? Yes [facility] HYDROmorpho ne (DILAUDID) injection 0.4 mg 12-02 15:04: 12 12-02 17:35 :33 No .4mg 0.4 mg, Slow IV Push, Q4HPRN, Starting on Mon12/03/23 at 1004, Until Mon12/03/23 at 1235, Routine, Pain (scale 7-10), Is this medication approved by a Faculty level provider? Yes, choir member approving Restricted medication : TAYLOR SEGUNDO [facility] acetaminoph en ([facility]) IV piggyback 1,000 mg 12-02 10:15: 00 12-02 09:49 :00 No 1000mg 1,000 mg, IV Piggyback, at 400 mL/hr Administer over 15 Minutes, ONCE, 1 dose, On Mon12/03/23 at 0515, Routine, Is the patient strict NPO and unable to tolerate oral medication s? Yes [facility] pantoprazol e (PROTONIX) injection 40 mg 12-02 09:15: 00 12-02 18:57 :58 No 40mg 40 mg, Slow IV Push, Q24H, 3 doses, First dose on Mon12/03/23 at 0415, Last dose on Mon12/05/23 at 0415 [facility] lactated ringers IV infusion 1,000 mL 12-02 09:00: 00 12-04 16:44 :09 No 1000mL at 150 mL/hr, 1,000 mL, IV Infusion, CONTINUOUS , Starting on Mon12/03/23 at 0400, Until 9/10/24 at 1144, Routine [facility] morphine (2 mg/mL) injection 4 mg 12-02 08:07: 13 12-02 15:05 :09 No 4mg 4 mg, Slow IV Push, Q3HPRN, Starting on Mon12/03/23 at 0307, Until Mon12/03/23 at 1005, Routine, Pain (scale 7-10), Pain unrelieved by scheduled analgesics [facility] ondansetron (ZOFRAN (PF)) injection 4 mg 12-02 08:06: 29 Yes 4mg [facility] piperacilli n-tazobacta m (ZOSYN) 3.375 g in NaCl 0.9% (NS) 100 mL MINI-BAG 12-02 07:53: 00 12-02 08:36 :00 No 3.375g 3.375 g, IV Piggyback, ONCE, 1 dose, On Mon12/03/23 at 0300, Administer over 30 Minutes, 100 mL, Reason for Anti-Infec tive: Documented Infection, Documented Infection Site: Abdominal, Duration of Therapy: 7 days [facility] HYDROcodone -acetaminop hen 5-325 mg tablet 11-27 00:00: 00 01-13 00:00 :00 No [id number] 1{tbl} Take 1 tablet by mouth every 6 (six) hours as needed for Pain (scale 7-10). Indication s: acute pain, chronic pain [facility] gabapentin 100 mg capsule 11-23 00:00: 00 Yes [id number] 100mg Take 1 capsule by mouth in the morning. [facility] sennosides 8.6 mg tablet 11-23 00:00: 00 Yes [id number] 8.6mg Take 1 tablet by mouth in the morning. [facility] polyethylen e glycol 3350 17 gram powder 11-23 00:00: 00 12-02 00:00 :00 No [id number] 17g Take 1 Packet by mouth in the morning. [facility] perflutren lipid microsphere s (DEFINITY) injection 2 mL 11-22 15:30: 00 11-22 15:30 :00 No [id number] 2mL 2 mL, IV Push, ONCE, 1 dose, On Mon11/23/23 at 1030, Routine [facility] Potassium Bicarb-Citr ic Acid (EFFER-K) effervescen t tablet 40 mEq 11-22 13:15: 00 11-22 13:06 :00 No 40meq 40 mEq, Oral, ONCE, 1 dose, On Mon11/23/23 at 0815, Routine [facility] cephALEXin (KEFLEX) capsule 500 mg 11-22 13:00: 00 11-27 12:59 :00 No 500mg 500 mg, Oral, Q12H, 10 doses, First dose on Mon11/23/23 at 0800, Last dose on Mon11/27/23 at 2000, DIMAS, Reason for Anti-Infec tive: Documented Infection, Documented Infection Site: Urine, Duration of Therapy: 7 days [facility] ferrous sulfate 325 mg (65 mg iron) tablet 11-22 00:00: 00 Yes [id number] 325mg Take 1 tablet by mouth every other day. [facility] cephALEXin 500 mg capsule 11-22 00:00: 00 01-13 00:00 :00 No [id number] 500mg Take 1 capsule by mouth every 12 (twelve) hours. [facility] HYDROcodone -acetaminop hen 5-325 mg tablet 11-22 00:00: 00 11-27 00:00 :00 No [id number] 1{tbl} Take 1 tablet by mouth every 6 (six) hours as needed for Pain (scale 7-10) for up to 7 days. Indication s: acute pain [facility] lidocaine 4% (L-M-X 4) 4 % cream 11-21 22:00: 00 11-21 22:36 :00 No Topical, ONCE, 1 dose, On Mon11/22/23 at 1700, Routine [facility] gabapentin (NEURONTIN) capsule 100 mg 11-21 18:15: 00 Yes 100mg 100 mg, Oral, DAILY, First dose (after last modificati on) on Mon11/22/23 at 1315, Until Discontinu ed, Routine [facility] HYDROcodone -acetaminop hen (NORCO 5) tablet 1 tablet 11-21 14:45: 33 Yes 1{tbl} 1 tablet, Oral, Q6HPRN, Starting on Mon11/22/23 at 0945, Until Discontinu ed, Routine, Pain (scale 7-10) [facility] simethicone (GAS RELIEF (SIMETHICON E)) chewable tablet 80 mg 11-21 14:00: 00 Yes 80mg 80 mg, Oral, PC+HS, First dose on Mon11/22/23 at 0900, Until Discontinu ed, Routine [facility] cefTRIAXone (ROCEPHIN) 1,000 mg in NaCl 0.9% (NS) 100 mL MINI-BAG 11-20 21:00: 00 11-22 12:28 :15 No 1000mg 1,000 mg, IV Piggyback, Q24H ABX, 5 doses, First dose on Mon11/21/23 at 1600, Last dose on Mon11/25/23 at 1600, Administer over 30 Minutes, 100 mL, Reason for Anti-Infec tive: Documented Infection, Documented Infection Site: Urine, Duration of Therapy: 7 days [facility] polyethylen e glycol 3350 powder 17 [...] Until Discontinu ed, Routine [Order 2 End] [facility] ramelteon (ROZEREM) tablet 8 mg 11-20 05:00: 00 11-20 05:00 :00 No 8mg 8 mg, Oral, ONCE NOW, 1 dose, On Mon11/21/23 at 0000, Routine [facility] glycerin/mi neral oil (AGLO ENEMA) (COMPOUNDED ) Enem 225 mL 11-20 04:19: 23 Yes 225mL 225 mL, Rectal, PRN, Starting on Mon11/20/23 at 2319, Until Discontinu ed, Routine, Constipati on unresolved by oral medication s [facility] heparin (porcine) injection 5,000 Units 11-20 03:00: 00 Yes 5000U 5,000 Units, Subcutaneo us, Q8H, First dose on Mon11/20/23 at 2200, Until Discontinu ed, Routine [facility] acetaminoph en (TYLENOL) tablet 650 mg 11-20 02:16: 20 Yes 650mg [facility] insulin lispro (human) (HumaLOG U-100) injection 2 Units 11-19 22:22: 30 Yes 2U 2 Units, Subcutaneo us, PRN - SEE INSTRUCTIO NS, 1 dose, Starting on Mon11/20/23 at 1722, Until Discontinu ed, Routine, For blood glucose > 300 mg/dL [facility] dextrose 10% (D10W) bolus infusion 125 [...] carb snack - Sprite or cranberry juice. [facility] NaCl 0.9% (NS) bolus infusion 500 mL 11-19 22:00: 00 11-19 23:24 :00 No [id number] 500mL at 999 mL/hr, 500 mL, IV Piggyback, ONCE, 1 dose, On Mon11/20/23 at 1700, STAT [facility] lidocaine (XYLOCAINE) 2 % jelly URO-JET 10 mL 11-19 20:45: 00 11-19 22:32 :00 No 10mL 10 mL, Urethral, ONCE, 1 dose, On Mon11/20/23 at 1545, Routine [facility] sodium bicarbonate 150 mEq in D5W 1,000 mL IV infusion 11-19 20:30: 00 11-20 06:30 :00 No 150meq IV Infusion, at 200 mL/hr, 150 mEq, ONCE, 1 dose, On Mon11/20/23 at 1530, DIMAS [facility] insulin regular human (HUMULIN R) injection 10 Units 11-19 20:30: 00 11-19 23:14 :00 No 10U 10 Units, IV Push, ONCE, 1 dose, On Mon11/20/23 at 1530, DIMAS, Indication for insulin: Hyperkalem ia- Please use the Insulin Protocol for Hyperkalem ia order set [facility] dextrose 50 % in water (D50W) injection 50 mL 11-19 20:30: 00 11-19 23:06 :00 No 50mL 50 mL, Slow IV Push, ONCE, 1 dose, On Mon11/20/23 at 1530, DIMAS [facility] glucagon HCL injection 1 mg 11-19 20:17: 46 Yes 1mg 1 mg, Intramuscu lar, PRN, Starting on Mon11/20/23 at 1517, Until Discontinu ed, DIMAS, Low blood sugar, Blood Glucose < or = 70 mg/dL and patient is NPO, unable to swallow or has mental changes. [facility] dextrose 50 % in water (D50W) injection 25 mL 11-19 20:17: 46 Yes 25mL 25 mL, Slow IV Push, PRN, Starting on Mon11/20/23 at 1517, Until Discontinu ed, DIMAS, Blood Glucose < or = 70 mg/dL and patient is NPO, unable to swallow or has mental status changes. [facility] fentanyl PF (SUBLIMAZE (PF)) injection 12.5 mcg 11-19 20:00: 00 11-19 20:34 :00 No 12.5ug 12.5 mcg, Slow IV Push, ONCE, 1 dose, On Mon11/20/23 at 1500, Routine [facility] piperacilli n-tazobacta m (ZOSYN) 2.25 g in NaCl 0.9% (NS) 100 mL MINI-BAG 11-19 20:00: 00 11-19 22:31 :00 No 2.25g 2.25 g, IV Piggyback, ONCE, 1 dose, On Mon11/20/23 at 1500, Administer over 30 Minutes, 100 mL, Reason for Anti-Infec tive: Documented Infection, Documented Infection Site: Urine, Duration of Therapy: Once (ED) [facility] metoclopram margarita HCl (REGLAN) injection 10 mg 11-19 20:00: 00 11-19 20:48 :00 No 10mg 10 mg, Slow IV Push, ONCE, 1 dose, On Mon11/20/23 at 1500, DIMAS [facility] NaCl 0.9% (NS) bolus infusion 500 mL 11-19 17:30: 00 11-19 22:31 :00 No 500mL at 999 mL/hr, 500 mL, IV Infusion, ONCE, 1 dose, On Mon11/20/23 at 1230, STAT [facility] Vital Signs Vital Name Observation Time Observation Value Comments S ource Systolic blood pressure 2024-01-14 12:27:00 121 mm[Hg] [facility] Diastolic blood pressure 2024-01-14 12:27:00 68 mm[Hg] [facility] Heart rate 2024-01-14 12:27:00 86 /min [facility] Body temperature 2024-01-14 12:27:00 36.17 Adore [facility] Respiratory rate 2024-01-14 12:27:00 18 /min [facility] Oxygen saturation in Arterial blood by Pulse oximetry 2024-01-14 12:27:00 97 /min [facility] Body height 2024-01-06 23:35:00 170.2 cm [facility] Body weight 2024-01-06 23:35:00 170.552 kg [facility] BMI 2024-01-06 23:35:00 58.89 kg/m2 [facility] Systolic blood pressure 2023-12-29 14:00:00 133 mm[Hg] [facility] Diastolic blood pressure 2023-12-29 14:00:00 62 mm[Hg] [facility] Heart rate 2023-12-29 14:00:00 87 /[facility] Body temperature 2023-12-29 14:00:00 36.56 Adore [facility] Respiratory rate 2023-12-29 14:00:00 17 /min [facility] Oxygen saturation in Arterial blood by Pulse oximetry 2023-12-29 14:00:00 98 /min [facility] Body height 2023-12-27 13:00:00 172.7 cm [facility] Body weight 2023-12-27 13:00:00 170.099 kg [facility] BMI 2023-12-27 13:00:00 57.02 kg/m2 [facility] Respiratory rate 2023-12-04 00:52:00 30 /min [facility] Heart rate 2023-12-03 23:00:00 98 /[facility] Respiratory rate 2023-12-03 23:00:00 28 /min [facility] Oxygen saturation in Arterial blood by Pulse oximetry 2023-12-03 23:00:00 99 /min [facility] Systolic blood pressure 2023-12-03 22:00:00 155 mm[Hg] [facility] Diastolic blood pressure 2023-12-03 22:00:00 76 mm[Hg] [facility] Body temperature 2023-12-03 21:00:00 37.61 Adore [facility] Body height 2023-12-03 15:19:00 172.7 cm [facility] Body weight 2023-12-03 15:19:00 170.1 kg [facility] BMI 2023-12-03 15:19:00 57.02 kg/m2 [facility] Systolic blood pressure 2023-11-23 16:54:00 136 mm[Hg] [facility] Diastolic blood pressure 2023-11-23 16:54:00 61 mm[Hg] [facility] Heart rate 2023-11-23 16:54:00 92 /min Unive [facility] Body temperature 2023-11-23 16:54:00 36.22 Adore [facility] Respiratory rate 2023-11-23 16:54:00 18 /min [facility] Oxygen saturation in Arterial blood by Pulse oximetry 2023-11-23 16:54:00 96 /min [facility] Body height 2023-11-21 01:17:00 170.2 cm [facility] Body weight 2023-11-21 01:17:00 171.913 kg [facility] BMI 2023-11-21 01:17:00 59.36 kg/m2 [facility] Heart rate 2023-12-04 16:20:00 106 /min [facility] Respiratory rate 2023-12-04 16:20:00 22 /min [facility] Oxygen saturation in Arterial blood by Pulse oximetry 2023-12-04 16:20:00 100 /min [facility] Body temperature 2023-12-04 13:00:00 37.28 Adore [facility] Systolic blood pressure 2023-12-04 07:15:00 194 mm[Hg] [facility] Diastolic blood pressure 2023-12-04 07:15:00 165 mm[Hg] [facility] Body height 2023-12-03 15:19:00 172.7 cm [facility] Body weight 2023-12-03 15:19:00 170.1 kg [facility] BMI 2023-12-03 15:19:00 57.02 kg/m2 [facility] Procedures Procedure Date / Time Performed Performing Clinician Source PHOSPHORUS 2024-01-08 09:03:00 Den, Shira [facility] MAGNESIUM 2024-01-08 09:03:00 [facility]OLIC PANEL (NA, K, CL, CO2, GLUCOSE, BUN, CREATININE, CA) 2024-01-08 09:03:00 [facility]FF 2024-01-08 09:03[facility] 2024-01-07 08:22:00 JulienShira [facility] MAGNESIUM 2024-01-07 08:22:00 [facility] BASIC METABOLIC PANEL (NA, K, CL, CO2, GLUCOSE, BUN, CREATININE, CA) 2024-01-07 08:22:00 Julien [facility] CBC WITH DIFF 2024-01-07 08:22:00 Julien [facility] MRSA / MSSA SCREEN BY PCRMARY GRACE 2024-01-07 01:55:00 Julien [facility] PHOSPHORUS 2024-01-07 01:46:00 [facility] 2024-01-07 01:46:00 Julien [facility] BASIC METABOLIC PANEL (NA, K, CL, CO2, GLUCOSE, BUN, CREATININE, CA) 2024-01-07 01:46:00 Julien [facility] CBC WITH DIFF 2024-01-07 01:46:00 Julien [facility] CT ABDOMEN PELVIS W CONTRAST 2023-12-22 17:55:36 Yoni Simon [facility] PHOSPHORUS 2023-12-20 10:27:00 Corey Carias [facility] MAGNESIUM 2023-12-20 10:27:00 Corey Carias [facility] BASIC METABOLIC PANEL (NA, K, CL, CO2, GLUCOSE, BUN, CREATININE, CA) 2023-12-20 10:27:00 Corey Costello [facility] CBC WITH DIFF 2023-12-20 10:27:00 Corey Carias [facility] PHOSPHORUS 2023-12-19 14:46:00 Corey Carias [facility] MAGNESIUM 2023-12-19 14:45:00 Corey Carias [facility] PHOSPHORUS 2023-12-18 11:20:00 Corey Carias [facility] MAGNESIUM 2023-12-18 11:20:00 Corey Carias [facility] BASIC METABOLIC PANEL (NA, K, CL, CO2, GLUCOSE, BUN, CREATININE, CA) 2023-12-18 11:20:00 Corey Costello [facility] CBC WITH DIFF 2023-12-18 11:20:00 Coery Carias [facility] PHOSPHORUS 2023-12-17 09:20:00 Corey Carias [facility] MAGNESIUM 2023-12-17 09:20:00 Corey Carias [facility] BASIC METABOLIC PANEL (NA, K, CL, CO2, GLUCOSE, BUN, CREATININE, CA) 2023-12-17 09:20:00 Corey Costello [facility] CBC WITH DIFF 2023-12-17 09:20:00 Corey Carias [facility] ACTIVATED PARTIAL THRMPLAS JESUS MANUEL 2023-12-16 21:28:00 Corey Costello [facility] PHOSPHORUS 2023-12-16 07:47:00 Corey Carias [facility] MAGNESIUM 2023-12-16 07:47:00 Corey Carias [facility] BASIC METABOLIC PANEL (NA, K, CL, CO2, GLUCOSE, BUN, CREATININE, CA) 2023-12-16 07:47:00 Corey Costello [facility] CBC WITH DIFF 2023-12-16 07:47:00 Corey Carias [facility] ACTIVATED PARTIAL THRMPLAS JESUS MANUEL 2023-12-16 03:37:00 Corey Costello [facility] ACTIVATED PARTIAL THRMPLAS JESUS MANUEL 2023-12-15 20:20:00 Corey Costello [facility] PHOSPHORUS 2023-12-15 08:44:00 Corey Carias [facility] MAGNESIUM 2023-12-15 08:44:00 Corey Carias [facility] BASIC METABOLIC PANEL (NA, K, CL, CO2, GLUCOSE, BUN, CREATININE, CA) 2023-12-15 08:44:00 Corey Costello [facility] CBC WITH DIFF 2023-12-15 08:44:00 Corey Carias [facility] ACTIVATED PARTIAL THRMPLAS JESUS MANUEL 2023-12-15 08:44:00 Corey Costello [facility] POTASSIUM SERUM 2023-12-15 06:07:00 Magy Ayala [facility] ACTIVATED PARTIAL THRMPLAS JESUS MANUEL 2023-12-15 01:36:00 Corey Costello [facility] ACTIVATED PARTIAL THRMPLAS JESUS MANUEL 2023-12-14 17:23:00 Corey Costello [facility] PHOSPHORUS 2023-12-14 09:57:00 Corey Carias [facility] MAGNESIUM 2023-12-14 09:57:00 Corey Carias [facility] BASIC METABOLIC PANEL (NA, K, CL, CO2, GLUCOSE, BUN, CREATININE, CA) 2023-12-14 09:57:00 Corey Costello [facility] CBC WITH DIFF 2023-12-14 09:57:00 Corey Carias [facility] PROTHROMBIN TIME / INR 2023-12-14 09:57:00 Angela Almodovar [facility] ACTIVATED PARTIAL THRMPLAS JESUS MANUEL 2023-12-14 09:57:00 Corey Costello [facility] ACTIVATED PARTIAL THRMPLAS JESUS MANUEL 2023-12-14 03:11:00 Corey Costello [facility] ACTIVATED PARTIAL THRMPLAS JESUS MANUEL 2023-12-13 19:52:00 Corey Costello [facility] BASIC METABOLIC PANEL (NA, K, CL, CO2, GLUCOSE, BUN, CREATININE, CA) 2023-12-13 18:24:00 Corey Costello [facility] PHOSPHORUS 2023-12-13 10:34:00 Corey Carias [facility] MAGNESIUM 2023-12-13 10:34:00 Corey Carias [facility] BASIC METABOLIC PANEL (NA, K, CL, CO2, GLUCOSE, BUN, CREATININE, CA) 2023-12-13 10:34:00 Corey Costello [facility] CBC WITH DIFF 2023-12-13 10:34:00 Corey Carias [facility] ACTIVATED PARTIAL THRMPLAS JESUS MANUEL 2023-12-13 10:34:00 Corey Costello [facility] ACTIVATED PARTIAL THRMPLAS JESUS MANUEL 2023-12-12 19:43:00 Corey Costello [facility] PHOSPHORUS 2023-12-12 10:45:00 Corey Carias [facility] MAGNESIUM 2023-12-12 10:45:00 Corey Carias [facility] HEPATIC FUNCTION PANEL ([id number]) (ALB,T.PRO,BILI T,BU/BC,ALT,AST,ALK PHOS) 2023-12-12 10:45:00 Sukhwinder Almodovar [facility] BASIC METABOLIC PANEL (NA, K, CL, CO2, GLUCOSE, BUN, CREATININE, CA) 2023-12-12 10:45:00 Corey Costello [facility] CBC WITH DIFF 2023-12-12 10:45:00 Corey Carias [facility] PROTHROMBIN TIME / INR 2023-12-12 10:45:00 Angela Almodovar [facility] ACTIVATED PARTIAL THRMPLAS JESUS MANUEL 2023-12-12 10:45:00 Corey Costello [facility] ACTIVATED PARTIAL THRMPLAS JESUS MANUEL 2023-12-12 03:53:00 Corey Costello [facility] ACTIVATED PARTIAL THRMPLAS JESUS MANUEL 2023-12-11 20:53:00 Corey Costello [facility] PROTHROMBIN TIME / INR 2023-12-11 20:52:00 Corey Dugan [facility] PHOSPHORUS 2023-12-11 08:32:00 Corey Carias [facility] MAGNESIUM 2023-12-11 08:32:00 Corey Carias [facility] BASIC METABOLIC PANEL (NA, K, CL, CO2, GLUCOSE, BUN, CREATININE, CA) 2023-12-11 08:32:00 Corey Costello [facility] CBC WITH DIFF 2023-12-11 08:32:00 Corey Carias [facility] XR CHEST 1 VW 2023-12-10 10:12:00 Corey Carias [facility] PHOSPHORUS 2023-12-10 08:10:00 Corey Carias [facility] MAGNESIUM 2023-12-10 08:10:00 Corey Carias [facility] BASIC METABOLIC PANEL (NA, K, CL, CO2, GLUCOSE, BUN, CREATININE, CA) 2023-12-10 08:10:00 Corey Costello [facility] CBC WITH DIFF 2023-12-10 08:10:00 Corey Carias [facility] BODY FLUID CULTURE(AEROBIC/ANAEROBIC) 2023-12-09 14:04:00 Corey Costello [facility] XR CHEST 1 VW 2023-12-09 09:46:00 Corey Carias [facility] PHOSPHORUS 2023-12-09 08:47:00 Corey Carias [facility] MAGNESIUM 2023-12-09 08:47:00 Corey Carias [facility] BASIC METABOLIC PANEL (NA, K, CL, CO2, GLUCOSE, BUN, CREATININE, CA) 2023-12-09 08:47:00 Corey Costello [facility] CBC WITH DIFF 2023-12-09 08:47:00 Corey Carias [facility] XR KUB 2023-12-09 03:07:55 Marilee Wei [facility] CT ABDOMEN PELVIS W CONTRAST 2023-12-08 16:31:19 Corey Costello [facility] XR CHEST 1 VW 2023-12-08 08:58:00 Corey Carias [facility] PHOSPHORUS 2023-12-08 08:47:00 Corey Carias [facility] MAGNESIUM 2023-12-08 08:47:00 Corey Carias [facility] BASIC METABOLIC PANEL (NA, K, CL, CO2, GLUCOSE, BUN, CREATININE, CA) 2023-12-08 08:47:00 Corey Costello [facility] CBC WITH DIFF 2023-12-08 08:47:00 Corey Carias [facility] XR CHEST 1 VW 2023-12-07 09:14:00 Corey Carias [facility] PHOSPHORUS 2023-12-07 08:28:00 Dariel [facility] MAGNESIUM 2023-12-07 08:28:00 [place] [facility] BASIC METABOLIC PANEL (NA, K, CL, CO2, GLUCOSE, BUN, CREATININE, CA) 2023-12-07 08:28:00 Dariel [facility] CBC WITH DIFF 2023-12-07 08:28:00 [place] [facility] AC PANEL 20 + LACTIC ACID 2023-12-07 08:27:00 Jeny Garner [facility] URINALYSIS 2023-12-06 17:32:00 Jim Jaque[facility] AC PANEL 20 + LACTIC ACID 2023-12-06 14:55:00 Jeny Garner [facility] TRANSFUSE PACKED RBC 2023-12-06 10:05:00 Beckie Carreon [facility] PREPARE PACKED RBC 2023-12-06 09:47:53 Beckie Carreon [facility] XR CHEST 1 VW 2023-12-06 09:03:00 Corey Carias [facility] PHOSPHORUS 2023-12-06 08:18[facility]-06 08:18:00 [facility] BASIC METABOLIC PANEL (NA, K, CL, CO2, GLUCOSE, BUN, CREATININE, CA) 2023-12-06 08:18:00 Dariel [facility] CBC WITH DIFF 2023-12-06 08:18[facility] + LACTIC ACID 2023-12-06 08:18:00 Beckie Carreon [facility] ACUTE CARE ARTERIAL BLOOD GAS 2023-12-05 17:35:00 Yoni Simon [facility] XR CHEST 1 VW 2023-12-05 08:53:00 Corey Carias [facility] PHOSPHORUS 2023-12-05 08:34:00 [facility]-12-05 08:34[facility]00 [facility]OLIC PANEL (NA, K, CL, CO2, GLUCOSE, BUN, CREATININE, CA) 2023-12-05 08:34:00 [facility] 2023-12-05 08:34:00 [facility] AC PANEL 20 + LACTIC ACID 2023-12-05 08:34:00 [facility] + [facility]ACTIC ACID 2023-12-05 03:58:00 [facility] + LACTIC ACID 2023-12-05 01:49:00 Dongcharlotte, [facility] XR CHEST 1 VW 2023-12-05 01:04:00 Dongcharlotte, [facility] XR CHEST 1 VW 2023-12-05 01:03:45 Lauri, [facility] BASIC METABOLIC PANEL (NA, K, CL, CO2, GLUCOSE, BUN, CREATININE, CA) 2023-12-04 22:35:00 Nishi [facility] CBC WITH DIFF 2023-12-04 22:35:00 Nishi [facility] TRANSTHORACIC ECHO (TTE) LIMITED W/ CONTRAST 2023-12-04 20:36:00 Corey Costello [facility] AC PANEL 20 + LACTIC ACID 2023-12-04 19:53:00 Dongcharlotte, [facility] AC PANEL 20 + LACTIC ACID 2023-12-04 10:28:00 Dongcharlotte, [facility] AC PANEL 20 + LACTIC ACID 2023-12-04 10:28:00 Dongcharlotte, [facility] AC PANEL 20 + LACTIC ACID 2023-12-04 10:28:00 Dongcharlotte, [facility] AC PANEL 20 + LACTIC ACID 2023-12-04 08:15:00 Michelle Steiner [facility] AC PANEL 20 + LACTIC ACID 2023-12-04 08:15:00 Michelle Steiner [facility] AC PANEL 20 + LACTIC ACID 2023-12-04 08:15:00 Michelle Steiner [facility] CBC WITH DIFF 2023-12-04 08:14:00 Elizabeth Steiner [facility] BASIC METABOLIC PANEL (NA, K, CL, CO2, GLUCOSE, BUN, CREATININE, CA) 2023-12-04 08:14:00 Elizabeth Steiner [facility] MAGNESIUM 2023-12-04 08:14:00 [facility] 2023-12-04 08:14[facility]00 [facility] PART[facility] THRMPLAS JESUS MANUEL 2023-12-04 08:14[facility]00 [facility] 2023-12-04 08:14:00 Green, [facility] FIBRINOGEN 2023-12-04 08:14:00 [facility] GLYCOSYLATED HEMOGLOBIN (A1C) 2023-12-04 08:14:00 Los Guidry [facility] PHOSPHORUS 2023-12-04 08:14:00 [facility] MAG[facility] 2023-12-04 08:14:00 [facility] BASIC METABOLIC PANEL (NA, K, CL, CO2, GLUCOSE, BUN, CREATININE, CA) 2023-12-04 08:14:00 Jatin [facility] CBC WITH DIFF 2023-12-04 08:14[facility]00 [facility]COS[facility]IN (A1C) 2023-12-04 08:14:00 Los Guidry [facility] PROTHROMBIN TIME / INR 2023-12-04 08:14:00 Green [facility] ACTIVATED PARTIAL THRMPLAS JESUS MANUEL 2023-12-04 08:14:00 Green [facility] FIBRINOGEN 2023-12-04 08:14:00 Green [facility] PHOSPHORUS 2023-12-04 08:14:00 [facility] MAG[facility]UM 2023-12-04 08:14:00 [facility] BASIC METABOLIC PANEL (NA, K, CL, CO2, GLUCOSE, BUN, CREATININE, CA) 2023-12-04 08:14:00 Green [facility] CBC WITH DIFF 2023-12-04 08:14:00 [facility] GLYCOSYLATED HEMOGLOBIN (A1C) 2023-12-04 08:14:00 Los Guidry [facility] PROTHROMBIN TIME / INR 2023-12-04 08:14:00 Jatin [facility] ACTIVATED PARTIAL THRMPLAS JESUS MANUEL 2023-12-04 08:14:00 [facility] 2023-12-04 08:14:00 Green [facility] XR KUB 2023-12-04 07:47:00 Green [facility] XR KUB 2023-12-04 07:47:00 Green, [facility] XR KUB 2023-12-04 07:47:00 Green [facility] XR KUB 2023-12-04 07:46:00 Green [facility] XR KUB 2023-12-04 07:46:00 Green [facility] XR KUB 2023-12-04 07:46:00 Green [facility] XR KUB 2023-12-04 07:43:00 Green [facility] XR CHEST 1 VW 2023-12-04 07:43:00 Green [facility] XR CHEST 1 2023-12-04 07:43:00 Jatin [facility] XR KUB 2023-12-04 07:43:00 Jatin [facility] XR CHEST 1 2023-12-04 07:43:00 [facility] 2023-12-04 07:43:00 [facility] SURG[facility]AM 2023-12-04 06:23:00 Jaquan Segundo [facility] ABG+COOX+NA+K+GLU+CA2+ 2023-12-04 06:08:00 Randy Saravia [facility] ABG+COOX+NA+K+GLU+CA2+ 2023-12-04 04:15:00 Randy Saravia [facility] TRANSFUSE PACKED RBC 2023-12-04 03:30:00 Stan Izquierdo [facility] TRANSFUSE PACKED RBC 2023-12-04 03:30:00 Stan Izquierdo [facility] TRANSFUSE PACKED RBC 2023-12-04 03:30:00 Stan Izquierdo [facility] ABG+COOX+NA+K+GLU+CA2+ 2023-12-04 03:00:00 Randy Saravia [facility] TRANSFUSE PACKED RBC 2023-12-04 02:51:00 Taylor Segundo [facility] TRANSFUSE PACKED RBC 2023-12-04 02:51:00 Taylor Segundo [facility] TRANSFUSE PACKED RBC 2023-12-04 02:51:00 Taylor Segundo [facility] PREPARE PACKED RBC 2023-12-04 02:36:27 Stan Izquierdo [facility] PREPARE PACKED RBC 2023-12-04 02:36:27 Stan Izquierdo [facility] PREPARE PACKED RBC 2023-12-04 02:36:27 Stan Izquierdo [facility] ARTERIAL LINE 2023-12-04 01:12:00 Bashir Carvalho [facility] ARTERIAL LINE 2023-12-04 01:12:00 Bashir Carvalho [facility] INTUBATION 2023-12-04 00:57:00 Bashir Carvalho [facility] INTUBATION 2023-12-04 00:57:00 [facility] LAPAROTOMY 2023-12-04 00:33:00 Taylor Segundo [facility] [id number] - [place] COLECTOMY PRTL W/SKIN LEVEL CECOST/COLOSTOMY 2023-12-04 00:33:00 Taylor Segundo [facility] FECAL DISIMPACTION 2023-12-04 00:33:00 [facility] LAPAROTOMY 2023-12-04 00:33:00 Taylor Segundo [facility] [id number] - [place] COLECTOMY PRTL W/SKIN LEVEL CECOST/COLOSTOMY 2023-12-04 00:33:00 Taylor Segundo [facility] FECAL DISIMPACTION 2023-12-04 00:33:00 [facility]PL[facility] LAPAROTOMY 2023-12-04 00:33:00 Taylor Segundo [facility] [id number] - [place] COLECTOMY PRTL W/SKIN LEVEL CECOST/COLOSTOMY 2023-12-04 00:33:00 Taylor Segundo [facility] FECAL DISIMPACTION 2023-12-04 00:33:00 [facility] PELVIS W CONTRAST 2023-12-03 22:15:15 Yazmin [facility] CT ABDOMEN PELVIS W CONTRAST 2023-12-03 22:15:15 Yazmin [facility] CT ABDOMEN PELVIS W CONTRAST 2023-12-03 22:15:15 Yazmin [facility] AC PANEL 21 + LACTIC ACID 2023-12-03 20:56:00 Sa zia Alvarez [facility] AC PANEL 21 + LACTIC ACID 2023-12-03 20:56:00 Sa zia Alvarez [facility] AC PANEL 21 + LACTIC ACID 2023-12-03 20:56:00 Sa zia Alvarez [facility] CBC WITH DIFF 2023-12-03 19:40:00 Ko Alvarez [facility] BASIC METABOLIC PANEL (NA, K, CL, CO2, GLUCOSE, BUN, CREATININE, CA) 2023-12-03 19:40:00 Ko Alvarez [facility] HEPATIC FUNCTION PANEL ([id number]) (ALB,T.PRO,BILI T,BU/BC,ALT,AST,ALK PHOS) 2023-12-03 19:40:00 Ko Alvarez [facility] ACTIVATED PARTIAL THRMPLAS JESUS MANUEL 2023-12-03 19:40:00 Ko Alvarez [facility] PROTHROMBIN TIME / INR 2023-12-03 19:40:00 Doris Alvarez [facility] HEPATIC FUNCTION PANEL ([id number]) (ALB,T.PRO,BILI T,BU/BC,ALT,AST,ALK PHOS) 2023-12-03 19:40:00 Ko Alvarez [facility] BASIC METABOLIC PANEL (NA, K, CL, CO2, GLUCOSE, BUN, CREATININE, CA) 2023-12-03 19:40:00 Ko Alvarez [facility] CBC WITH DIFF 2023-12-03 19:40:00 Ko Alvarez [facility] PROTHROMBIN TIME / INR 2023-12-03 19:40:00 Doris Alvarez [facility] ACTIVATED PARTIAL THRMPLAS JESUS MANUEL 2023-12-03 19:40:00 Ko Alavrez [facility] HEPATIC FUNCTION PANEL ([id number]) (ALB,T.PRO,BILI T,BU/BC,ALT,AST,ALK PHOS) 2023-12-03 19:40:00 Ko Alvarez [facility] BASIC METABOLIC PANEL (NA, K, CL, CO2, GLUCOSE, BUN, CREATININE, CA) 2023-12-03 19:40:00 Ko Alvarez [facility] CBC WITH DIFF 2023-12-03 19:40:00 Ko Alvarez [facility] PROTHROMBIN TIME / INR 2023-12-03 19:40:00 Doris Alvarez [facility] ACTIVATED PARTIAL THRMPLAS JESUS MANUEL 2023-12-03 19:40:00 Ko Alvarez [facility] CT ABDOMEN PELVIS W CONTRAST 2023-12-03 18:33:18 See [facility] CT ABDOMEN PELVIS W CONTRAST 2023-12-03 18:33:18 See [facility] CT ABDOMEN PELVIS W CONTRAST 2023-12-03 18:33:18 See [facility] FIBRINOGEN 2023-12-03 16:27:00 Corey Carias [facility] ACTIVATED PARTIAL THRMPLAS JESUS MANUEL 2023-12-03 16:27:00 Corey Costello [facility] PROTHROMBIN TIME / INR 2023-12-03 16:27:00 Corey Dugan [facility] PROTHROMBIN TIME / INR 2023-12-03 16:27:00 Corey Dugan [facility] ACTIVATED PARTIAL THRMPLAS JESUS MANUEL 2023-12-03 16:27:00 Corey Costello [facility] FIBRINOGEN 2023-12-03 16:27:00 Corey Carias [facility] PROTHROMBIN TIME / INR 2023-12-03 16:27:00 Corey Dugan [facility] ACTIVATED PARTIAL THRMPLAS JESUS MANUEL 2023-12-03 16:27:00 Corey Costello [facility] FIBRINOGEN 2023-12-03 16:27:00 Corey Carias [facility] PREPARE PACKED RBC 2023-12-03 13:33:02 Taylor Segundo [facility] PREPARE PACKED RBC 2023-12-03 13:33:02 Taylor Segundo [facility] HB ABO GROUPING 2023-12-03 12:35:00 Taylor Segundo [facility] HB ABO GROUPING 2023-12-03 12:35:00 [facility] HB ABO GROUPING 2023-12-03 12:35:00 Taylor Segundo [facility] CBC WITH DIFF 2023-12-03 08:05:00 Feliberto Hoyt [facility] BASIC METABOLIC PANEL (NA, K, CL, CO2, GLUCOSE, BUN, CREATININE, CA) 2023-12-03 08:05:00 Evelina [facility] LACTIC ACID WHOLE BLOOD 2023-12-03 08:05:00 Evelina [facility] MAGNESIUM 2023-12-03 08:05:00 Feliberto Hoyt [facility] PROTHROMBIN TIME / INR 2023-12-03 08:05:00 Evelina [facility] ACTIVATED PARTIAL THRMPLAS JESUS MANUEL 2023-12-03 08:05:00 Evelina [facility] HEPATIC FUNCTION PANEL ([id number]) (ALB,T.PRO,BILI T,BU/BC,ALT,AST,ALK PHOS) 2023-12-03 08:05:00 Evelina, [facility] MAGNESIUM 2023-12-03 08:05:00 Evelina, [facility] HEPATIC FUNCTION PANEL ([id number]) (ALB,T.PRO,BILI T,BU/BC,ALT,AST,ALK PHOS) 2023-12-03 08:05:00 Evelina, [facility] BASIC METABOLIC PANEL (NA, K, CL, CO2, GLUCOSE, BUN, CREATININE, CA) 2023-12-03 08:05:00 Evelina, [facility] CBC WITH DIFF 2023-12-03 08:05:00 Evelina, [facility] PROTHROMBIN TIME / INR 2023-12-03 08:05:00 Evelina, [facility] ACTIVATED PARTIAL THRMPLAS JESUS MANUEL 2023-12-03 08:05:00 Evelina, [facility] LACTIC ACID WHOLE BLOOD 2023-12-03 08:05:00 Evelina, [facility] MAGNESIUM 2023-12-03 08:05:00 Evelina, [facility] HEPATIC FUNCTION PANEL ([id number]) (ALB,T.PRO,BILI T,BU/BC,ALT,AST,ALK PHOS) 2023-12-03 08:05:00 Evelina, [facility] BASIC METABOLIC PANEL (NA, K, CL, CO2, GLUCOSE, BUN, CREATININE, CA) 2023-12-03 08:05:00 Evelina, [facility] CBC WITH DIFF 2023-12-03 08:05:00 Evelina, [facility] PROTHROMBIN TIME / INR 2023-12-03 08:05:00 Evelina, [facility] ACTIVATED PARTIAL THRMPLAS JESUS MANUEL 2023-12-03 08:05:00 Evelina, [facility] LACTIC ACID WHOLE BLOOD 2023-12-03 08:05:00 Evelina, [facility] TRANSTHORACIC ECHO (TTE) COMPLETE W/ CONTRAST 2023-11-23 15:24:26 Radha Cherry [facility] TRANSTHORACIC ECHO (TTE) COMPLETE W/ CONTRAST 2023-11-23 15:24:26 Koleti, [facility] CBC WITH DIFF 2023-11-23 11:09:00 [facility]-23 11:09:00 Radha Cherry [facility] BASIC METABOLIC PANEL (NA, K, CL, CO2, GLUCOSE, BUN, CREATININE, CA) 2023-11-23 11:09:00 Radha [facility] MAGNESIUM 2023-11-23 11:09:00 Radha Cherry [facility] BASIC METABOLIC PANEL (NA, K, CL, CO2, GLUCOSE, BUN, CREATININE, CA) 2023-11-23 11:09:00 Radha [facility] CBC WITH DIFF 2023-11-23 11:09:00 Radha [facility] HB ECG ROUTINE & RHYTHM STRIP 2023-11-22 14:50:13 Radha [facility] HB ECG ROUTINE & RHYTHM STRIP 2023-11-22 14:50:13 Radha [facility] CBC WITH DIFF 2023-11-22 10:01:00 Jet Aguilar [facility] BASIC METABOLIC PANEL (NA, K, CL, CO2, GLUCOSE, BUN, CREATININE, CA) 2023-11-22 10:01:00 Jet Aguilar [facility] MAGNESIUM 2023-11-22 10:01:00 Jet Aguilar [facility] THYROID STIMULATING HORMONE 2023-11-22 10:01:00 Radha [facility] MAGNESIUM 2023-11-22 10:01:00 Jet Aguilar [facility] THYROID STIMULATING HORMONE 2023-11-22 10:01:00 Radha [facility] BASIC METABOLIC PANEL (NA, K, CL, CO2, GLUCOSE, BUN, CREATININE, CA) 2023-11-22 10:01:00 Jet Aguilar [facility] CBC WITH DIFF 2023-11-22 10:01:00 Jet Aguilar [facility] CBC WITHOUT DIFF 2023-11-21 16:46[facility] 2023-11-21 16:46:00 [facility] RETROPERITONEAL LIMITED 2023-11-21 12:03:00 [facility] RETROPERITONEAL LIMITED 2023-11-21 12:03:00 [facility] PREPARE PACKED RBC 2023-11-21 11:09:04 Kiera Davidson [facility] PREPARE PACKED RBC 2023-11-21 11:09:04 Kiera Davidson [facility] ABORH CONFIRMATION (LAB ONLY) 2023-11-21 [facility] ([facility] ONLY) 2023-11-21 10:16:00 Alex Smithbeth [facility] HB ABO GROUPING 2023-11-21 10:05:00 Thelma Davidson [facility] HB ABO GROUPING 2023-11-21 10:05:00 Thelma Davidson [facility] CBC WITHOUT DIFF 2023-11-21 09:34:00 King Davidson [facility] CBC WITHOUT DIFF 2023-11-21 09:34:00 King Davidson [facility] CBC WITH DIFF 2023-11-21 08:51:00 Mt Davidson [facility] BASIC METABOLIC PANEL (NA, K, CL, CO2, GLUCOSE, BUN, CREATININE, CA) 2023-11-21 08:51:00 Mt Davidson [facility] MAGNESIUM 2023-11-21 08:51:00 Mt Davidson [facility] MAGNESIUM 2023-11-21 08:51:00 Mt Davidson [facility] BASIC METABOLIC PANEL (NA, K, CL, CO2, GLUCOSE, BUN, CREATININE, CA) 2023-11-21 08:51:00 [facility] 2023-11-21 08:51[facility]00 [facility] 2023-11-21 04:02:00 Lety [facility] LACTIC ACID WHOLE BLOOD 2023-11-21 04:02:00 [facility] 2023-11-21 03:55:00 [facility] 2023-11-21 03:55:00 [facility] / INR 2023-11-21 03:05:00 Lety [facility] ACTIVATED PARTIAL THRMPLAS JESUS MANUEL 2023-11-21 03:05:00 [facility] 2023-11-21 03:05:00 [facility] VIT[facility] B12, LEVEL 2023-11-21 03:05:00 [facility]-11-21 03:05:00 Lety [facility] LACTATE DEHYDROGENASE 2023-11-21 03:05:00 [facility] BASIC MET[facility]OLIC PANEL (NA, K, CL, CO2, GLUCOSE, BUN, CREATININE, CA) 2023-11-21 03:05:00 Mt Davidson [facility] ETHANOL 2023-11-21 03:05:00 [facility] LACTATE DEHYDROGENASE 2023-11-21 03:05:00 [facility] VIT[facility] B12, LEVEL 2023-11-21 03:05:00 Kiera Davidson [facility] FOLATE 2023-11-21 03:05:00 [facility] BASIC MET[facility]OLIC PANEL (NA, K, CL, CO2, GLUCOSE, BUN, CREATININE, CA) 2023-11-21 03:05:00 Mt Davidson [facility] IRON PANEL 2023-11-21 03:05:00 Mt Davidson [facility] ETHANOL 2023-11-21 03:05:00 Mt Davidson [facility] PROTHROMBIN TIME / INR 2023-11-21 03:05:00 Mt Davidson [facility] ACTIVATED PARTIAL THRMPLAS JESUS MANUEL 2023-11-21 03:05:00 Mt Davidson [facility] URINE CULTURE 2023-11-21 02:54:00 Lety cristy [facility] URINE CULTURE 2023-11-21 02:54:00 Lety ariadnamehdi [facility] POCT GLUCOSE (AUTOMATED) 2023-11-21 01:29:00 Stefanie Johnson [facility] POCT GLUCOSE (AUTOMATED) 2023-11-21 01:29:00 Stefanie Johnson [facility] POCT GLUCOSE (AUTOMATED) 2023-11-20 23:13:00 Joleen Chinchilla [facility] POCT GLUCOSE (AUTOMATED) 2023-11-20 23:13:00 Joleen Chinchilla [facility] INFLUENZA A/B RSV COVID NAAT 2023-11-20 22:31:00 Pablo Chinchilla [facility] LAB ONLY COVID INTERPRETATION 2023-11-20 22:31:00 Pablo Chinchilla [facility] INFLUENZA A/B RSV COVID NAAT 2023-11-20 22:31:00 Pablo Chinchilla [facility] LAB ONLY COVID INTERPRETATION 2023-11-20 22:31:00 Pablo Chinchilla [facility] POCT GLUCOSE(AGE >30DAYS) 2023-11-20 21:25:00 Pablo Chinchilla [facility] POCT GLUCOSE(AGE >30DAYS) 2023-11-20 21:25:00 Pablo Chinchilla [facility] POCT GLUCOSE (AUTOMATED) 2023-11-20 21:21:00 Joleen Chinchilla [facility] POCT GLUCOSE (AUTOMATED) 2023-11-20 21:21:00 Joleen Chinchilla [facility] URINALYSIS 2023-11-20 21:14:00 Pablo Chinchilla [facility] URINE DRUG (IMMUNOASSAY) - COMPREHENSIVE DRUG SCREEN 2023-11-20 21:14:00 Mt Davidson [facility] URINE DRUG (IMMUNOASSAY) - COMPREHENSIVE DRUG SCREEN 2023-11-20 21:14:00 Mt Davidson [facility] URINALYSIS 2023-11-20 21:14:00 Pablo Chinchilla [facility] CT ABDOMEN PELVIS WO CONTRAST 2023-11-20 19:45:00 Pablo Chinchilla [facility] CT ABDOMEN PELVIS WO CONTRAST 2023-11-20 19:45:00 Pablo Chinchilla [facility] COMP. METABOLIC PANEL ([id number]) 2023-11-20 18:25:00 Pablo Chinchilla [facility] TROPONIN I 2023-11-20 18:25:00 Pablo Chinchilla [facility] LIPASE 2023-11-20 18:25:00 Pablo Chinchilla [facility] MAGNESIUM 2023-11-20 18:25:00 Pablo Chinchilla [facility] PHOSPHORUS 2023-11-20 18:25:00 Mt Davidson [facility] FERRITIN SERUM 2023-11-20 18:25:00 John Davidson [facility] PHOSPHORUS 2023-11-20 18:25:00 Mt Davidson [facility] LIPASE 2023-11-20 18:25:00 Pablo Chinchilla [facility] MAGNESIUM 2023-11-20 18:25:00 Pablo Chinchilla [facility] FERRITIN SERUM 2023-11-20 18:25:00 John Davidson [facility] TROPONIN I 2023-11-20 18:25:00 Pablo Chinchilla [facility] COMP. METABOLIC PANEL ([id number]) 2023-11-20 18:25:00 Pablo Chinchilla [facility] LACTIC ACID WHOLE BLOOD 2023-11-20 17:16:00 Kerry Chinchilla [facility] LACTIC ACID WHOLE BLOOD 2023-11-20 17:16:00 Kerry Chinchilla [facility] CBC WITH DIFF 2023-11-20 17:15:00 Pablo Chinchilla [facility] RETICULOCYTES AUTOMATED 2023-11-20 17:15:00 Mt Davidson [facility] CBC WITH DIFF 2023-11-20 17:15:00 Pablo Chinchilla [facility] RETICULOCYTES AUTOMATED 2023-11-20 17:15:00 Mt Davidson [facility] HB ECG ROUTINE & RHYTHM STRIP 2023-11-20 16:55:53 Pablo Chinchilla [facility] HB ECG ROUTINE & RHYTHM STRIP 2023-11-20 16:55:53 Pablo Chinchilla [facility] Encounters Start Date/Time End Date/Time Encounter Type Admission Type Attending Clinicians Care Facility Care Department Encounter ID Source 2024-01-17 00:00:00 2024-02-06 13:38:21 Telephone Service/Gen surg, Surgery C Service/Gen surg, Surgery C [facility] 1.2.840.114 350.1.13.10 4.2.7.2.686 [id number] [facility] 2024-01-16 00:00:00 2024-01-16 15:39:30 Transition of Care Cinthya Andrade Laura K [address] 1.2.840.114 350.1.13.10 4.2.7.2.686 [id number] [facility] 2024-01-06 18:34:00 2024-01-14 12:00:00 Hospital Encounter Jr Saravia, Isrrael Stone [facility] ([facility]) 1.2.840.114 350.1.13.10 4.2.7.2.686 [id number] [facility] 2024-01-01 00:00:00 2024-01-01 15:07:16 Transition of Care Cinthya Andrade Laura K [facility] [address] 1.2.840.114 350.1.13.10 4.2.7.2.686 [id number] [facility] 2023-12-03 02:17:00 2023-12-29 17:30:00 Hospital Encounter Jr Saravia Joshua [facility] ([facility] 1.2.840.114 350.1.13.10 4.2.7.2.686 [id number] [facility] 2023-12-03 19:47:00 2023-12-04 02:11:00 Anesthesia Event Kentrell Núñez Edgar 1.2.840.1 00982.1.1 3.104.2.7 .3.368466 .8 [id number] [facility] 2023-12-03 19:25:00 2023-12-03 22:35:00 Surgery Taylor Segundo [facility] 1.2.840.114 350.1.13.10 4.2.7.2.686 [id number] [facility] 2023-12-03 13:33:01 2023-12-03 13:33:01 Anesthesia Event Lopez Russ 1.2.840.1 58198.1.1 3.104.2.7 .3.925576 .8 [id number] [facility] 2023-12-03 00:00:00 2023-12-03 00:00:00 Travel 1.2.840.1 66665.1.1 3.104.2.7 .3.201548 .8 1.2.840.114 350.1.13.10 4.2.7.3.698 [id number] [facility] 2023-11-28 00:00:00 2023-11-28 10:13:02 Telephone Ivan Rogers 1.2.840.1 87505.1.1 3.104.2.7 .3.726195 .8 [id number] [facility] 2023-11-24 00:00:00 2023-11-24 11:30:21 Transition of Care Daisy Nelson 1.2.840.1 50749.1.1 3.104.2.7 .3.483528 .8 [id number] [facility] 2023-11-20 11:14:00 2023-11-23 19:45:00 Inpatient X ALEX SMITH [facility] [id number] [facility] 2023-11-20 11:14:00 2023-11-23 19:45:00 Hospital Encounter Pablo Chinchilla, Alex Adam 1.2.840.1 95699.1.1 3.104.2.7 .3.166637 .8 [id number] [facility] 2023-11-20 00:00:00 2023-11-20 00:00:00 Travel 1.2.840.1 26670.1.1 3.104.2.7 .3.183910 .8 1.2.840.114 350.1.13.10 4.2.7.3.698 [id number] [facility] Results Test Description Test Time Test Comments Results Result Co mments Source [facility] 09:05:35* Test Item Value Reference Range Interpretation Comme nts PHOSPHORUS (test code = 5802623944) 3.6 mg/dL 2.5-5.0 Lab Interpretation (test cod e = 24881-9) Normal [facility] (NA, K, CL, CO2, GLUCOSE, BUN, CREATININE, CA)2024-01-07 09:05:34* Test Item Value Reference Range Interpretation Comme nts NA (test code = 0654967501) 133 mmol/L 135-145 L K (test code = 3711072007) 4.2 mmol/L 3.5-5.0 CL (test code = 1891190961) 107 mmol/L 98-108 CO2 TOTAL (test code = 1404304669) 22 mmol/L 23-31 L AGAP (test code = 7851163457) 4 2-16 BUN (test code = 2667053835) 22 mg/dL 7-23 GLUCOSE (test code = 8829896811) 82 mg/dL 70-110 CREATININE (test code = 2160-0) 0.59 mg/dL 0.50-1.04 CALCIUM (test code = 0808737647) 8.7 mg/dL 8.6-10.6 eGFR (test code = 47354-8) 94.1 mL/min/1.73m2 CKD-EPI eGFR (2020). Assuming creatinine has been stable day-to-day for at least three months, the eGFR indicates Category G1 (>= 90 mL/min/1.73 m2) Lab Interpretation (test code = 87041-7) Abnormal [facility]13 09:05:34* Test Item Value Reference Range Interpretation Comme nts MAGNESIUM (test code = 1862421498) 1.5 mg/dL 1.7-2.4 L Lab Interpretation (test cod e = 05708-2) Abnormal [facility] with Jwhz9493-31-20 02:40:15MUG6101/06/2024 9:40 PM [facility] GOUAICNXWSE60/12/2024 9:40 PM [facility] XMNASDQSAEY00/12/2024 9:40 PM [facility] ZQQQCVBRGBG27/12/2024 9:40 PM [facility] MPKGVRCKXFS51/12/2024 9:40 PM [facility] WYROMRNLTJK11/12/2024 9:40 PM [facility] KOMIOCMBJTYU77/12/2024 9:40 PM [facility] SERVICESRDW-SD01/06/2024 9:40 PM [facility] SERVICESRDW-CV01/06/2024 9:40 PM [facility] KWPLZQDFPMG33/12/2024 9:40 PM [facility] JJFVVGFQTAX33 9:40 PM [facility] SERVICESNRBC/100 WBC01/06/2024 9:40 [...] LABORATORY SERVICESBASO x10^ 9:40 PM CDTUT[facility] SERVICESUnB[facility]Phosph[facility] 2024-01-07 02:26:31* Test Item Value Reference Range Interpretation Comme nts PHOSPHORUS (test code = 0085500504) 3.7 mg/dL 2.5-5.0 Lab Interpretation (test cod e = 35772-2) Normal [facility]2024-[facility]-13 02:26:31* Test Item Value Reference Range Interpretation Comme nts MAGNESIUM (test code = 9179419144) 1.5 mg/dL 1.7-2.4 L Lab Interpretation (test cod e = 93240-5) Abnormal [facility] (NA, K, CL, CO2, GLUCOSE, BUN, CREATININE, CA)2024-01-07 02:26:31* Test Item Value Reference Range Interpretation Comme nts NA (test code = 3449038724) 132 mmol/L 135-145 L K (test code = 3601465722) 3.9 mmol/L 3.5-5.0 CL (test code = 2699708598) 107 mmol/L 98-108 CO2 TOTAL (test code = 0721100010) 21 mmol/L 23-31 L AGAP (test code = 1037750978) 4 2-16 BUN (test code = 7734210528) 24 mg/dL 7-23 H GLUCOSE (test code = 5305699653) 89 mg/dL 70-110 CREATININE (test code = 2160-0) 0.68 mg/dL 0.50-1.04 CALCIUM (test code = 8314627993) 8.9 mg/dL 8.6-10.6 eGFR (test code = 21375-7) 91.0 mL/min/1.73m2 CKD-EPI eGFR (2020). Assuming creatinine has been stable day-to-day for at least three months, the eGFR indicates Category G1 (>= 90 mL/min/1.73 m2) Lab Interpretation (test code = 77974-0) Abnormal [facility] W [id number] 23:22:18EXAM: CT ABDOMEN PELVIS W CONTRAST HISTORY: [...] to theupper pelvis is seen. Dependent subcutaneous edema.[facility] (for use with Heparin Infusion)2023-12-15 21:03:45* Test Item Value Reference Range Interpretation Comme [facility] APTT Patient (test code = 3173-2) 24 26-36 L Lab Interpretation (test cod e = 30039-2) Abnormal [facility] (for use with Heparin Infusion)2023-12-14 03:40:13* Test Item Value Reference Range Interpretation Comme [facility] APTT Patient (test code = 3173-2) 40 26-36 H Lab Interpretation (test cod e = 05810-5) Abnormal [facility] (for use with Heparin Infusion)2023-12-12 20:11:22* Test Item Value Reference Range Interpretation Comme [facility] APTT Patient (test code = 3173-2) 55 26-36 H Lab Interpretation (test cod e = 99283-2) Abnormal [facility]COOX+NA+K+GLU+CA2+2023-12-12 02:38:42* Test Item Value Reference Range Interpretation Comme nts PH (test code = 2) 7.25 7.35-7.45 L PCO2 (test code = 6536051526) 39 35-45 PO2 (test code = 0495439055) 404 80-100 H HCO3 (test code = 2340848031) 17 22-26 L BE (test code = 8248850739) -9.8 -3.0-3.0 L THB (test code = 9737471646) 11.7 g/dL 12.0-16.0 L %O2HB (test code = 8333560342) 98.2 % 94.0-99.0 %COHB ART (test code = 3140776174) 1.4 % 0.0-1.5 %METHB ART (test code = 8326669299) 0.3 % 0.4-1.5 L VOL%O2 ART (test code = 2597604957) 17.2 % 15.0-23.0 QUES NA (test code = 1870883666) 133 mmol/L 135-145 L K+ (test code = 6583412525) 5.0 mmol/L 3.5-5.0 AC CA IONZ (test code = 6133243307) 4.70 mg/dL 4.50-5.30 GLUCOSE (test code = 1645315655) 125 mg/dL 70-110 H Lab Interpretation (test cod e = 44696-9) Abnormal [facility]+COOX+NA+K+GLU+CA2+2023-12-12 02:38:22* Test Item Value Reference Range Interpretation Comme nts PH (test code = 2) 7.29 7.35-7.45 L PCO2 (test code = 0132716373) 41 35-45 PO2 (test code = 2515929168) 342 80-100 H HCO3 (test code = 1725119596) 19 22-26 L BE (test code = 0999462962) -7.1 -3.0-3.0 L THB (test code = 8710570543) 11.3 g/dL 12.0-16.0 L %O2HB (test code = 8881547979) 98.7 % 94.0-99.0 %COHB ART (test code = 5471047801) 1.0 % 0.0-1.5 %METHB ART (test code = 6962943014) 0.3 % 0.4-1.5 L VOL%O2 ART (test code = 2683669362) 16.6 % 15.0-23.0 QUES NA (test code = 4886637199) 135 mmol/L 135-145 K+ (test code = 4953675484) 4.9 mmol/L 3.5-5.0 AC CA IONZ (test code = 5561303386) 4.70 mg/dL 4.50-5.30 GLUCOSE (test code = 8708171652) 130 mg/dL 70-110 H Lab Interpretation (test cod e = 53251-3) Abnormal [facility]+COOX+NA+K+GLU+CA2+2023-12-12 02:37:06* Test Item Value Reference Range Interpretation Comme nts PH (test code = 2) 7.35 7.35-7.45 PCO2 (test code = 2017241856) 37 35-45 PO2 (test code = 9899426204) 461 80-100 H HCO3 (test code = 7397400957) 20 22-26 L BE (test code = 1364087088) -5.0 -3.0-3.0 L THB (test code = 0838774110) 8.1 g/dL 12.0-16.0 LL %O2HB (test code = 5579555717) 98.2 % 94.0-99.0 %COHB ART (test code = 2933149395) 1.2 % 0.0-1.5 %METHB ART (test code = 6850218491) 0.3 % 0.4-1.5 L VOL%O2 ART (test code = 4842971564) 12.5 % 15.0-23.0 L QUES NA (test code = 2901651244) 133 mmol/L 135-145 L K+ (test code = 0382536470) 4.9 mmol/L 3.5-5.0 AC CA IONZ (test code = 8020899791) 4.70 mg/dL 4.50-5.30 GLUCOSE (test code = 5955326405) 119 mg/dL 70-110 H Lab Interpretation (test cod e = 16444-5) Abnormal [facility] 21:16:12* Test Item Value Reference Range Interpretation Comme [facility] APTT Patient (test code = 3173-2) 38 26-36 H Lab Interpretation (test cod e = 15180-9) Abnormal [facility] CenterProthrombin Time / [id number] 21:13:33* Test Item Value Reference Range Interpretation Comme [facility] PROTIME PATIENT (test code = 5964-2) 32.4 10.1-12.6 H INR (test code = 6301-6) 3.0 Normal INR <1.1; Warfarin Therapeutic range 2.0 to 3.0 or 2.5 to 3.5, depending upon the indications. Lab Interpretation (test code = 50991-7) Abnormal [facility] CenterCbc with [id number] 09:14:16* Test Item Value Reference Range Interpretation [...] g/dL 31.6-35.1 L RDW-SD (test code = 69946-9) 59.1 fL 39.0-49.9 H RDW-CV (test code = 788-0) 21.9 % 12.0-15.5 H PLT (test code = 777-3) 367 166-358 H MPV (test code = 53613-0) 9.2 fL 9.5-12.9 L NRBC/100 WBC (test code = 7268720004) 0.5 0.0-10.0 NRBC x10^3 (test code = 2446253382) 0.07 See_Comment [Automated message] The system which generated this result transmitted reference range: 10*3/?L. The reference range was not used to interpret this result as normal/abnormal. GRAN MAT (NEUT) % (test code = 770-8) 79.5 % IMM GRAN % (test code = 2721224940) 5.30 % LYMPH % (test code = 736-9) 10.6 % MONO % (test code = 5905-5) 4.1 % EOS % (test code = 713-8) 0.4 % BASO % (test code = 706-2) 0.1 % GRAN MAT x10^3(ANC) (test code = 6906040059) 10.75 10*3/uL 1.88-7.09 H IMM GRAN x10^3 (test code = 1455459346) 0.72 10*3/uL 0.00-0.06 H LYMPH x10^3 (test code = 731-0) 1.43 10*3/uL 1.32-3.29 MONO x10^3 (test code = 742-7) 0.55 10*3/uL 0.33-0.92 EOS x10^3 (test code = 711-2) 0.05 10*3/uL 0.03-0.39 BASO x10^3 (test code = 704-7) 0.01-0.07 Lab Interpretation (test code = 17789-0) Abnormal [facility]2024-[facility]-16 08:56:49* Test Item Value Reference Range Interpretation Comme nts MAGNESIUM (test code = 1927669166) 1.8 mg/dL 1.7-2.4 Lab Interpretation (test cod e = 61564-9) Normal [facility]2024-09-16 08:56:49* Test Item Value Reference Range Interpretation Comme nts PHOSPHORUS (test code = 8600510669) 2.4 mg/dL 2.5-5.0 L Lab Interpretation (test cod e = 98892-8) Abnormal [facility] Met[facility] (NA, K, CL, CO2, GLUCOSE, BUN, CREATININE, CA)2023-12-11 08:56:49* Test Item Value Reference Range Interpretation Comme nts NA (test code = 8586241153) 141 mmol/L 135-145 K (test code = 3360075027) 3.1 mmol/L 3.5-5.0 L CL (test code = 0341633338) 112 mmol/L 98-108 H CO2 TOTAL (test code = 8202470901) 19 mmol/L 23-31 L AGAP (test code = 3520427185) 10 2-16 BUN (test code = 9636263847) 29 mg/dL 7-23 H GLUCOSE (test code = 5309569795) 126 mg/dL 70-110 H CREATININE (test code = 2160-0) 0.72 mg/dL 0.50-1.04 CALCIUM (test code = 5090299199) 8.3 mg/dL 8.6-10.6 L eGFR (test code = 46085-6) 87.3 mL/min/1.73m2 CKD-EPI eGFR (2020). Assuming creatinine has been stable day-to-day for at least three months, the eGFR indicates Category G2 (60 - 89 mL/min/1.73 m2) Lab Interpretation (test code = 63463-4) [facility] [id number] 04:11:52ORDERING PHYSICIAN: TONEY ELKINS HISTORY: respiratory monitoring TECHNIQUE: AP view of the chest COMPARISON: XR CHEST 1 VW on DOS: 12/09/23 FINDINGS: Frontal view of the chest is obtained in a rotated position. Worsening basilar predominant pulmonary opacities and suspected small bilateral pleuraleffusions. No pneumothorax. ? ? ?Stable prominence of the cardiac silhouette. Aortic atherosclerosis. The osseous structures appear unchanged.[facility] with [id number] 09:00:36* Test Item Value Reference Range Interpretation [...] 32.3 g/dL 31.6-35.1 RDW-SD (test code = 48412-2) 60.0 fL 39.0-49.9 H RDW-CV (test code = 788-0) 22.1 % 12.0-15.5 H PLT (test code = 777-3) 398 166-358 H MPV (test code = 86991-7) 9.0 fL 9.5-12.9 L NRBC/100 WBC (test code = 0504486978) 0.5 0.0-10.0 NRBC x10^3 (test code = 1131780502) 0.07 See_Comment [Automated message] The system which generated this result transmitted reference range: 10*3/?L. The reference range was not used to interpret this result as normal/abnormal. GRAN MAT (NEUT) % (test code = 770-8) 79.6 % IMM GRAN % (test code = 4413537353) 5.90 % LYMPH % (test code = 736-9) 10.4 % MONO % (test code = 5905-5) 3.9 % EOS % (test code = 713-8) 0.1 % BASO % (test code = 706-2) 0.1 % GRAN MAT x10^3(ANC) (test code = 4128255472) 11.69 10*3/uL 1.88-7.09 H IMM GRAN x10^3 (test code = 6905645285) 0.87 10*3/uL 0.00-0.06 H LYMPH x10^3 (test code = 731-0) 1.53 10*3/uL 1.32-3.29 MONO x10^3 (test code = 742-7) 0.58 10*3/uL 0.33-0.92 EOS x10^3 (test code = 711-2) 0.03-0.39 L BASO x10^3 (test code = 704-7) 0.01-0.07 TARGET CELLS (test code = 62165-1) 2+ See_Comment A [Automated message] The system which generated this result transmitted reference range: (none). The reference range was not used to interpret this result as normal/abnormal. Lab Interpretation (test code = 01198-7) [facility] 08:41:44* Test Item Value Reference Range Interpretation Comme nts MAGNESIUM (test code = 5962481267) 2.0 mg/dL 1.7-2.4 Lab Interpretation (test cod e = 28699-6) Normal [facility] 08:41:44* Test Item Value Reference Range Interpretation Comme nts PHOSPHORUS (test code = 2694740551) 3.5 mg/dL 2.5-5.0 Lab Interpretation (test cod e = 78224-3) Normal [facility] (NA, K, CL, CO2, GLUCOSE, BUN, CREATININE, CA)2023-12-10 08:41:44* Test Item Value Reference Range Interpretation Comme nts NA (test code = 5286889281) 139 mmol/L 135-145 K (test code = 0731649527) 3.3 mmol/L 3.5-5.0 L CL (test code = 6498518205) 112 mmol/L 98-108 H CO2 TOTAL (test code = 0584375609) 19 mmol/L 23-31 L AGAP (test code = 9251601799) 8 2-16 BUN (test code = 1755955172) 38 mg/dL 7-23 H GLUCOSE (test code = 2562589166) 135 mg/dL 70-110 H CREATININE (test code = 2160-0) 1.02 mg/dL 0.50-1.04 CALCIUM (test code = 5693543972) 8.3 mg/dL 8.6-10.6 L eGFR (test code = 41836-4) 57.5 mL/min/1.73m2 CKD-EPI eGFR (2020). Assuming creatinine has been stable day-to-day for at least three months, the eGFR indicates Category G3a (45 - 59 mL/min/1.73 m2) Lab Interpretation (test code = 41377-2) [facility]XR [id number] 22:37:49EXAM: XR KUB, XR CHEST 1 12/08/2023 [...] lbowel obstruction. Paucity of gas in the rectum.[facility] 1 [id number] 22:37:49EXAM: XR KUB, XR CHEST 1 VW [...] smallbowel obstruction. Paucity of gas in the rectum.[facility] CenterCbc with [id number] 10:34:43* Test Item Value Reference Range Interpretation [...] 32.3 g/dL 31.6-35.1 RDW-SD (test code = 66896-2) 59.7 fL 39.0-49.9 H RDW-CV (test code = 788-0) 22.6 % 12.0-15.5 H PLT (test code = 777-3) 478 166-358 H MPV (test code = 84919-1) 9.3 fL 9.5-12.9 L NRBC/100 WBC (test code = 9861499168) 0.4 0.0-10.0 NRBC x10^3 (test code = 5187972932) 0.09 See_Comment [Automated message] The system which generated this result transmitted reference range: 10*3/?L. The reference range was not used to interpret this result as normal/abnormal. GRAN MAT (NEUT) % (test code = 770-8) 81.2 % IMM GRAN % (test code = 7963069080) 6.60 % LYMPH % (test code = 736-9) 8.7 % MONO % (test code = 5905-5) 3.1 % EOS % (test code = 713-8) 0.1 % BASO % (test code = 706-2) 0.3 % GRAN MAT x10^3(ANC) (test code = 4361743814) 16.97 10*3/uL 1.88-7.09 H IMM GRAN x10^3 (test code = 3744119300) 1.39 10*3/uL 0.00-0.06 H LYMPH x10^3 (test [...] as normal/abnormal. TARGET CELLS (test code = 94889-3) 2+ See_Comment A [Automated message] The system which generated this result transmitted reference range: (none). The reference range was not used to interpret this result as normal/abnormal. Lab Interpretation (test code = 72595-4) [facility]:11* Test Item Value Reference Range Interpretation Comme nts MAGNESIUM (test code = 0614304365) 1.9 mg/dL 1.7-2.4 Lab Interpretation (test cod e = 68688-4) Normal [facility]2024-09-14 10:08:11* Test Item Value Reference Range Interpretation Comme nts PHOSPHORUS (test code = 9628103491) 4.4 mg/dL 2.5-5.0 Lab Interpretation (test cod e = 32245-9) Normal [facility] CenterBasi Metabolic Panel (NA, K, CL, CO2, GLUCOSE, BUN, CREATININE, CA)2023-12-09 10:08:11* Test Item Value Reference Range Interpretation Comme nts NA (test code = 3837365078) 139 mmol/L 135-145 K (test code = 5578115497) 3.3 mmol/L 3.5-5.0 L CL (test code = 9036893876) 108 mmol/L 98-108 CO2 TOTAL (test code = 1736461144) 17 mmol/L 23-31 L AGAP (test code = 1919588663) 14 2-16 BUN (test code = 5971060679) 38 mg/dL 7-23 H GLUCOSE (test code = 1170183983) 103 mg/dL 70-110 CREATININE (test code = 2160-0) 1.30 mg/dL 0.50-1.04 H CALCIUM (test code = 3448585659) 8.3 mg/dL 8.6-10.6 L eGFR (test code = 96592-6) 43.0 mL/min/1.73m2 CKD-EPI eGFR (2020). Assuming creatinine has been stable day-to-day for at least three months, the eGFR indicates Category G3b (30 - 44 mL/min/1.73 m2) Lab Interpretation (test code = 74778-0) Abnormal [facility] CenterCT ABD[facility]EN PEL[facility] W [id number] 23:07:14CT ABDOMEN PELVIS W CONTRAST 12/08/2023 10:55 [...] endcolostomy, fecal disimpaction and rectal perforation repair. Heiid'spouch is seen in mid abdomen. The rectum [...] wallsurgical wound, partially visualized. Dependent subcutaneous edema isnoted.[facility]XR [facility] 1 [id number] 19:22:20Study: Single view chest. Ordering Physician: DONA ELKINS Date: 12/08/2023 4:00 AM History:respiratory monitoring COMPARISON: 12/07/2023 Findings: Single frontal view chest demonstrates mild cardiomegaly. Patchyleft basilar atelectasis is identified. The lungs are otherwise clearwithout infiltrate, pleural effusion or pneumothorax. The right internaljugular venous catheter terminates over the distal superior vena cava. [facility] CenterCbc with Mxgv4849-59-43 09:56:35* Test Item Value Reference Range Interpretation [...] 31.6 g/dL 31.6-35.1 RDW-SD (test code = 38067-7) 59.4 fL 39.0-49.9 H RDW-CV (test code = 788-0) 22.2 % 12.0-15.5 H PLT (test code = 777-3) 444 166-358 H MPV (test code = 80742-1) 8.9 fL 9.5-12.9 L NRBC/100 WBC (test code = 1224414029) 0.5 0.0-10.0 NRBC x10^3 (test code = 7147106659) 0.08 See_Comment [Automated message] The system which generated this result transmitted reference range: 10*3/?L. The reference range was not used to interpret this result as normal/abnormal. GRAN MAT (NEUT) % (test code = 770-8) 79.7 % IMM GRAN % (test code = 1915665523) 5.90 % LYMPH % (test code = 736-9) 9.8 % MONO % (test code = 5905-5) 4.2 % EOS % (test code = 713-8) 0.2 % BASO % (test code = 706-2) 0.2 % GRAN MAT x10^3(ANC) (test code = 4510462484) 13.21 10*3/uL 1.88-7.09 H IMM GRAN x10^3 (test code = 5653903126) 0.98 10*3/uL 0.00-0.06 H LYMPH x10^3 (test code = 731-0) 1.63 10*3/uL 1.32-3.29 MONO x10^3 (test code = 742-7) 0.69 10*3/uL 0.33-0.92 EOS x10^3 (test code = 711-2) 0.03 10*3/uL 0.03-0.39 BASO x10^3 (test code = 704-7) 0.03 10*3/uL 0.01-0.07 Lab Interpretation (test code = 58608-3) Abnormal [facility]2024-09-13 09:36:27* Test Item Value Reference Range Interpretation Comme nts MAGNESIUM (test code = 6016881891) 2.0 mg/dL 1.7-2.4 Lab Interpretation (test cod e = 86860-5) Normal [facility] CenterPhosphorus2024-09-13 09:36:27* Test Item Value Reference Range Interpretation Comme nts PHOSPHORUS (test code = 6250447857) 4.6 mg/dL 2.5-5.0 Lab Interpretation (test cod e = 84871-5) Normal [facility] (NA, K, CL, CO2, GLUCOSE, BUN, CREATININE, CA)2023-12-08 09:36:27* Test Item Value Reference Range Interpretation Comme nts NA (test code = 8948852289) 138 mmol/L 135-145 K (test code = 1088085613) 3.2 mmol/L 3.5-5.0 L CL (test code = 7136479953) 108 mmol/L 98-108 CO2 TOTAL (test code = 0380224029) 19 mmol/L 23-31 L AGAP (test code = 6048278354) 11 2-16 BUN (test code = 0780195103) 38 mg/dL 7-23 H GLUCOSE (test code = 9140277794) 92 mg/dL 70-110 CREATININE (test code = 2160-0) 1.41 mg/dL 0.50-1.04 H CALCIUM (test code = 6596938690) 7.9 mg/dL 8.6-10.6 L eGFR (test code = 29578-8) 39.0 mL/min/1.73m2 CKD-EPI eGFR (2020). Assuming creatinine has been stable day-to-day for at least three months, the eGFR indicates Category G3b (30 - 44 mL/min/1.73 m2) Lab Interpretation (test code = 33228-1) [facility]normal [facility] 1 [id number] 14:51:27Study: Single view chest. Ordering Physician: DONA ELKINS Date: 12/07/2023 4:00 AM History:respiratory monitoring COMPARISON: 12/06/2023 Findings: Single frontal view chest demonstrates a normal heart size.Persistent left basilar airspace opacity is identified which may resultfrom atelectasis or pneumonia. Small pleural effusions persist. Nopneumothorax is defined. Endotracheal tube terminates 5.1 cm above thecarina. The right internal jugular venous catheter terminates over thedistal superiorvena cava.[facility] Cbc with [id number] 09:34:07* Test Item Value Reference Range Interpretation [...] 32.3 g/dL 31.6-35.1 RDW-SD (test code = 62169-4) 58.8 fL 39.0-49.9 H RDW-CV (test code = 788-0) 21.4 % 12.0-15.5 H PLT (test code = 777-3) 409 166-358 H MPV (test code = 29773-0) 9.2 fL 9.5-12.9 L NRBC/100 WBC (test code = 2166465876) 0.4 0.0-10.0 NRBC x10^3 (test code = 1428190937) 0.06 See_Comment [Automated message] The system which generated this result transmitted reference range: 10*3/?L. The reference range was not used to interpret this result as normal/abnormal. GRAN MAT (NEUT) % (test code = 770-8) 77.3 % IMM GRAN % (test code = 6378277686) 6.80 % LYMPH % (test code = 736-9) 11.4 % MONO % (test code = 5905-5) 4.3 % EOS % (test code = 713-8) 0.1 % BASO % (test code = 706-2) 0.1 % GRAN MAT x10^3(ANC) (test code = 1462788953) 12.30 10*3/uL 1.88-7.09 H IMM GRAN x10^3 (test code = 1111275634) 1.09 10*3/uL 0.00-0.06 H LYMPH x10^3 (test code = 731-0) 1.81 10*3/uL 1.32-3.29 MONO x10^3 (test code = 742-7) 0.69 10*3/uL 0.33-0.92 EOS x10^3 (test code = 711-2) 0.03-0.39 L BASO x10^3 (test code = 704-7) 0.01-0.07 Lab Interpretation (test code = 31827-1) Abnormal [facility] Metabolic Panel (NA, K, CL, CO2, GLUCOSE, BUN, CREATININE, CA)2023-12-07 09:19:04* Test Item Value Reference Range Interpretation Comme nts NA (test code = 2109335997) 136 mmol/L 135-145 K (test code = 2667060967) 3.3 mmol/L 3.5-5.0 L CL (test code = 2148000085) 106 mmol/L 98-108 CO2 TOTAL (test code = 1041262891) 18 mmol/L 23-31 L AGAP (test code = 0774730980) 12 2-16 BUN (test code = 4228391277) 41 mg/dL 7-23 H GLUCOSE (test code = 9352558178) 102 mg/dL 70-110 CREATININE (test code = 2160-0) 1.96 mg/dL 0.50-1.04 H CALCIUM (test code = 5329936139) 7.9 mg/dL 8.6-10.6 L eGFR (test code = 94903-5) 26.3 mL/min/1.73m2 CKD-EPI eGFR (2020). Assuming creatinine has been stable day-to-day for at least three months, the eGFR indicates Category G4 (15 - 29 mL/min/1.73 m2) Lab Interpretation (test code = 66676-7) [facility]normal [facility]2024-[facility]-12 09:19:04* Test Item Value Reference Range Interpretation Comme nts MAGNESIUM (test code = 3919614926) 2.0 mg/dL 1.7-2.4 Lab Interpretation (test cod e = 12494-8) Normal [facility]2024-[facility]12 09:19:04* Test Item Value Reference Range Interpretation Comme nts PHOSPHORUS (test code = 2055290774) 4.7 mg/dL 2.5-5.0 Lab Interpretation (test cod e = 34399-0) Normal [facility] CenterAC Panel 20 + Lactic Pltn7650-11-30 08:32:46* Test Item Value Reference Range Interpretation Comme nts PH (test code = 2) 7.41 7.35-7.45 PCO2 (test code = 4243177042) 29 35-45 L PO2 (test code = 6617162622) 305 80-100 H HCO3 (test code = 1946387948) 18 22-26 L BE (test code = 4782372083) -5.8 -3.0-3.0 L THB (test code = 5590732916) 9.3 g/dL 12.0-16.0 L %O2HB (test code = 4186584644) 98.5 % 94.0-99.0 %COHB ART (test code = 9145770259) 0.9 % 0.0-1.5 %METHB ART (test code = 5469243022) 0.3 % 0.4-1.5 L VOL%O2 ART (test code = 6603146091) 13.7 % 15.0-23.0 L NA (test code = 3009903139) 138 mmol/L 135-145 K+ (test code = 3464892037) 3.4 mmol/L 3.5-5.0 L AC CA IONZ (test code = 2579760923) 4.40 mg/dL 4.50-5.30 L GLUCOSE (test code = 4145051669) 97 mg/dL 70-110 LACTIC ACID (test code = 6167731319) 1.85 mmol/L 0.50-2.20 Lab Interpretation (test cod e = 34365-5) Abnormal [facility] [id number] 22:05:08* Test Item Value Reference Range Interpretation Comme nts Case Report (test code = 3062145320) Surgical Pathology ?Case: [id number] ? Authorizing Provider: ?Taylor Segundo MD ?Collected: ? 12/04/2023 0123 ?Ordering Location: ? ? [facility] OR ? Received: ?12/04/2023 0830 ? Department ? Pathologist: ? Sallie Piper MD ? Specimen: ? ?LARGE INTESTINE, SIGMOID COLON, sigmoid colon ? Final Diagnosis (test code = 9046611852) l8cinJCzWVBxg8nqPBKpwD FuZzEwMzNcZnRuYmpcdWMx NQiwjlTqAJzdlNymYPF1CU MtCT1pnUpsaEc3qSfjRNQt nlZ9jFKdWVobw1oxNCF9i6 yjgnpcJPHlCXcrOg0aeZDj nAsrThByIOYeFNd6aF59GN JruS6fdJQcHLjckwJsHEOb G7QyBA5qCFkinPCaRPD4MY SvBVE0TWbdvpVzkqB3RLpe tEPoQcL3P45jvTDoKHP2JV WsGNWaeJHuAIHbEVR5DSGb gHPiI2gpOLTnQS2rygrdNC zmERanSRFmnZC2WXPpxHWf L2CqDQBaNBhiVPUqnfk7Ar DeMy1wcOLrwNmcBLsfDFLm XHBsYWluXGZzMjBccGFyIE QpSXXUOL1NVJFLPEoAA8wO MCXFLCgEZE9UVRxoRhJSHT QXOZ9GSamuPKCjU3RuKMIl J2DpWDToCL5iYCw+LSBESV CEMhMVN4OBA6IGTpGBZZOQ IEFDVVRFIERJVkVSVElDVU yWECuKJVNSETMBJ9UNEISI TRIIY9vXSXCbqGWqZABcau x+GI7qPUVZD6MVCVsYAhWN WQKXXZ4EVIVQANGXCGMpmI CuSCQvEOrplLJdqGY7NKyh YXJccGFyXGZzMjIgTWFocm VlbiBIdXNzYWluLCBNQkJT NFB1CsJiHtPnZrCqZYY0Mp HqYI4rcPMxXGDmFgUtvSPh rMbfwmCfGApzd3WwX6EvHv AwMFxhbnNpXGRlZmxhbmcx XGEpAVK5toRtCGKvOYfhDB PqOVkpXn0piERnhYscQwDi ULRfk8vczlQLLKgjLiExP5 94NOXuNRgbi9ejl2MfIENa zMMmg5T0NCGGgogiaTm9r8 nnDzJgRqK0eNJyLXdpW9lc hrKeuUNjO0BwwRQqwNe4rU cyY81eh2M1FyisN4ldFARi GLKtE2HjLP0sXRRvLpq0CK S5RIN3VBZlDOUwE5CeQF9v GYQdrBSvJYa8f0svnKvqQK FrWBU5i1rjEEgqdaI7XE4o ep6tiHd1q7mydqWlOWSdXF LjuSRLWPKxB3BkcXwdZj7d xUp5fIhtJxiqOJN7Xml4XT 0vlm82zjv0jZbrXJMszrlv XuQ6DRgqBYRlferrGWu3EB riRKAngPM2CLPvmLUuB1Vd VQXeVM4suhs1KZP1KNsmJN QwNcF0OQBbeUMuIJEwrUfh JLcdl784TVQ4AdOtDP9bB1 Dib5A7wJ4ssBThQXIdjZGz PoQkQOPkle1fsXGaYTrdb3 HdCBZ3hqH1mRDbeTMsSCJd XT02Ctosf3EsNyjyZAE4VD PtegJhg1Ile6oeUkFihwJi A8kgL7XoCTHfYHGoZMLxIp YghpZtg7Tbg9AfhJEpgKb5 j5dwVBItZVXorIkpn3kwQT S4TGCsF1S7cIYqk5tgDSog CCZmqGX4amC9SNKmbDHlP5 CumT9gPCIqQT0nvig5y6fv OXC8SHnfKLBkRaS8muD8LU PzwKUgJPDyiDbsAPbyk540 UGJ3PhRaXTPaq2SaM2YocZ fhW54lzGbcU60vTSYnxMuy aM4fbQmweM0gYmPlTkOzEV xxbFxwbGFpblxmMVxmczIw RFietwjdBXWeUWjyK8euHx TvMEAwpNhvSBlps5AyGWYm XGNmMlxmczIwXHBhciBJIG gmsbJfkWZog22eXSpkyXZx JWAxIUqoFQLyfRcov0LhV9 rzAS1kX6YxfDRextAdifNn VDumDPXie4n2kIQklKraw1 PatBNpYO39kqKaMNHaLRT5 URNec8dfEE48oefjAfOyvG 81ykImkdSxNGNzb2zsB9mt vCUke3Hsn2FybzNhIOeoc9 FzRO8qqAHdqgadqEM1IBQv oDNkziSddlH6sPyrUZZddP 5yuQ0iqMrfoG7bPhAlEkOg YJnxFR5xKHHuI5dxpCRoPP VkDJPrP5adLyQnjZ6yuZax KvmolqS5TMMmug34 Clinical Information (test code = 7236490029) Colon perforation [K63.1] Gross Description (test code = 2736835928) f1qriUSlRBGckMPWFUX1QW AdQD6huGywgLs2fAbhIRXf kkX8dMSqKVkqd8pnXAH3o0 unokYLEczlSFMpHT1eFFhb OTSgRS6xCaBjDDTvAxTrMC BhcGVydzEyMjQwXHBhcGVy wEI5QPCsCZ4drxmzZTshAV qcXBDgafZ6XTMmnTHuR8Wp TEPzQY6lrjvqFWZ7TXYRHd gqJh5mvXKkrErcLuLnTyGg BLItPYLdISTsm5onxxLAmi hipGd5lL6HKLQbY7MtLC4S h2trNPRssUUeBIC2VSmff6 wlGEgiAEY3JSGnHLEmXPUh ZF9MNyRmOEO5ROYwSET7Fg O5IQt5XDCIYDSbMWUxPzN8 KYQ5RDy1ZFVnEQ2fOWghkF XjBQycQoshGRuvN957VYzb OUXjF5LhP5UuQGlkWnMgLY xvNUTfDBGgTAmhLYMpU3EV GAQtQBViUtT4ARNsNPu2CZ i9DM5OKvSlISQpWwQ8EZv3 IFFrHLh0IZuaPD4VEZWbVF S3LhH5XxAbTAA0UthzVWm8 IDIgXFxzcyAzIFxcZmwgXF tzM27lvTHrOELPWfknnEJn blxmczIwIFNQRUNJTUVOIE FyrBRkS1qpNeKdRwoyFNPn DQpccGFyZCANClxwbGFpbl xsdHJjaFxmczIyXGVwaWNO QBL1TR1yLTYPSisnmZCiRC PyGBcWrPVrzP0avmZLVGlq JYNzX7MuswSfCYJkMZQyMW rhRdZdOZPnq0y1yNP4tGTh uVL7vUEpgYhvGZ4dtRNyLC XZJF18vMZhalymNnZsM43b oQRiB02fe63vFKRmYVUvy9 4ubEI0rqEeJlAiNJApaw2o jL4vXBOhh3GvQQ66FKFmg4 VnbWVudCBvZiBsYXJnZSBi z9rbnFHfLWYrRYTpyBSqum YkOC8fjMeiIaxrVh5uTFOs QLcdPIHoJA1nvQKvVGF1pJ CuHD1cSZGsPBUooO4gh7Iw qoDwGM1dwM7kbLIsOWHot0 EksNpcHWQlSXStsQ3pRUMt QVAaALZwk8QxFGM8pdToD3 UgaXMgcmVtYXJrYWJsZSBm k8PrGRG8IN7sM8NpJH4eYN KiWBPlCnMxsPG8lXXdwTCz mZOcUAFfODn3aCF6tdA8Hb KrM40xqE5cK5KqAGDvp7Qz HEerNE5zmW4gLQD0hHY6NA NvbWVzIHdpdGhpbiAwLjYg J27tg0CcpOjyZGXpx4Dzu3 FtoVGtJ2deLvKLeUStjxVg NSvqoE8qYACyck7pXNRwhf Rrcor9tGOhQYUwpRMaGNEW jOJoi8PfL5yfGD6gyFBfx7 BlbmVkIHRvIHJldmVhbCBh HTMlmQNpnNPnsR6suvMmsD grAJAnq0w0aINtlw63qrNc UT3jSFAvtCtdPMToOAAbuO dnENNcO7GzGG7gdMEwhTYx VxSOaAGfuKCdp8SwQPerOU DkjWZjl7OtdJFuIx1yXQ55 bHRpcGxlIGRpdmVydGljdW isJWOrhIRzv7l1vXCbyKwh IGXgd6k6hZUcc1wzQXNcYD NhlZNkINZjhdnzoM8aHGyt OU97N63qMEP9XTxqYM4mCS L4qsUxVEQkALUvLPXgCVGg mQBzdiA3yTtxu19to3PnUC hlIHJlbWFpbmluZyBtdWNv y4CmtKUbgTTfTAGigdqqMW 5kIHVucmVtYXJrYWJsZSBm r8FnpE4qeIRlOEStTNXlp5 1kITQhybDrqNVuSs7hFLFc s87cWhSggYNzIL7SJKArrl FVXkCpk58rfcNeEDf0UZUc sU3idXfoIABhypFsuX5ysl CvusUgZTVrfh3rkQ9pUQMs IGRldGFjaGVkIGZyYWdtZW 45WK2xDVpaoaelTIKpw8Vr QCr2FwYeU32vvL8gxZLiT4 UrPRA0REEzGULvhYZfyoJt aWFtZXRlcikuIFRoZSBzcG GguG0xsnHufsRxfDKoPGWo jY6hppJ5PNRaYRNgi3qyC7 fmFWLhgrBeqAswjUc9uZ3e SMkkOJ79X74rYFA5SLftQO 1oVTW8xxBiQERpEMLlWNIs CbOjaJJtqeM7jQxju36ax6 IzVZDpFNZvWL9nzO5lgxvd xKDwt0EgINcpTRRtte9tdZ 9cGOVnTYB1xsPkbJKab2Dy tSLxAm9gRGNfmSnvxrxwtK UjvO1vpibtQW9rNALukmNb ubJ3nR9ucb2xsKQsNY1YIS UkybEDZbGihVLqy6XobJN6 wVBxSMTjT1Nzd98oCAZsPG HwzMUlzWP0PQTueN1cCBRg tHiySZQuITo6BsOvIC5uwB XlFS5XHECbcpTIZyOxQ7El v00tL22uKGhvkUSxKZ6TCS SiZYY5WYV2CQTaNZXyxFAh F1ztKEJtoySvLATjMGIoba KNVsGwBjHSwCTsCM4jmauk dtbqNR2jDxZyBIjjEPDbXR tIUV9TCffiCRe3RAA2aWU5 zDGxWLDiuHSyn4EawHE2nX YlJFKoaiLTTaE7ZyQQhghi ni8cgpStDP45O18oSMoelx SnwvYpYI53OJVxucCinZIq NX0GPSgxAFv6GDDlhCTdnO SrTYJyPEwuZB89MW0gfbxe tbVmCRPeONElD9ZbjIHpZB 0KQTEwOiBEZXRhdGNoZWQg KoLaE74tugYjKQPmnbHddZ atvRu9eUzgbqOhecIvBL02 KMBsknOuqUCmZS2HQOPkyp ANCkhpbGxhcnkgUHJpbmNl KLwDAGyXH0LOTCBABNIBxI DsXY03VTAzdqDRXrg5rQwn ON7gOWfaCR6nqMkqEKKaDB DSG9CuNOQyqxSMFmyzJVFc MHKcsHBEz8YqEMDURtadgP mpBvFxjUUwRtD9XHKekJBn MFT8SL5lbRcaHMFpX3QqK0 NtbtX8WRWzitRZHvjfTLCq IA0KfQ== Disclaimer (test code = [id number]) r0vtnXVaWCJbz2acSZTzfJ FuZzEwMzNcZnRuYmpcdWMx BNgrrbNsGWmik9BpE7DjAf AwMFxhbnNpXGRlZmxhbmcx YBQzLLR3anYnCIQlWGppJH BfBRhtBc5qoFHtoYmwEtDe XRJjr5qfiiVMGRrfTzOcO7 38WXWyQApib5vhy7IwAQQw iDUbl0H2MZPUciwzpMw3dF hrX84dx1K3GugrT2vxMVOh BVMlN6ZiAD8uDZLiDlg7MG B4VWB5BZYgDILwT6SzRG2q XFSgnQCnGUy0k9vraEacQA WwCPO5e8raGZalbpCkFQ4a hd8qgFv0a6pwpxOeCNFoSN BnjEBNAVQwX9LmgEgyYo8u fQi3iIrmAiufUML0Bmu3AI 8esc99orm8xDkrPZXllpgv MzU7HLckMWXbgygoKSd9GR giQHQpeHH9QCZkhSImJ1Wc XPHmGD2evgt8LGF2AVrcUS OlEhY4DAUkpOLiEUFfbCnq XYxwv259NWE8XsBeKC0cI1 Yve3F1eN2xcDEuAQUtxJQx DlRnIQScao7aoCLyRSexz2 EaMZZ4dhC6iNKbkYSpKWGa KK68Wpyco8DjGmzob1ByF2 8zaSE4VXlga0chKW5vWgT5 lxMhQPpdy1teaT7xYfM3YV pmMR1zFS7pYUZcyU0vxnpc XHBnYnJkcmhlYWRccGdicm IcNj4cnDngIJH4MPamM5to nE7jFwK2FHfpA0dpsM6yIV h9YPrizRV6ZAAuaE2eVE3d wiber9cyZBpiFTkkXINgci D7nqD9XBNnbOZsA3HkdD9c ZZXlRF3ghaaix7erCHJ9MG zgFRWkTXK2AxObKEJmy4Ef vrh2ZeXse6YvqRDlFAuhQ8 4ht443PNSzolDqN2eobMCh uqqpkFSoiazsDVlnumD8HV DxwqBox6XjZJDwYAC8KKtk MRcoeJPiBNCoaIiqx2bfO5 RscGFyXHBsYWluXGYxXGZz MjBcbGFuZzEwMzNcaGljaF bnPRxgMvHfDLIlLKjpL5kz CjDnH6IzIKPjVsBgtUXuQ3 ggVGhpcyByZXBvcnQgbWF5 MUmoP5b0YLPzyuEesRd6tu IcUsOpGXAcPZD0FBrvoDCy YBLgx6DtqgvfcNVnEc6ujA VsVXLgoS8dHAEbDAVkDZpf FV3lgXp3UUGTlNBcmJMbGm IBZEPtFB48mlHgISOIqssr y0C7RHczOCBsb6BlpRHoE0 hkw9IdKTMbp78rMN2bv5J1 p9zxAHX2SF9mz6NxBGJdxK HhsFChUMCyk6Oxyaddp2Nv PPZymsKef5AoNVKeobSptB WhVUGobpZyzs7xqoQfPEEr YZRyX4QqnzrqtKfuyqBjWF Yfhk2srdViHCS9XSHWCDVl TMZxo3DoyM3gcWMAYOG7uH Avqn8ioaGRcWBvURVpeb18 MIDmRI6oE3wvNVDtMJKkpp BjxMWbu7VrZJNunGJ3zNHe PI7IAhVFn96uDJFbVOKIak WrCWXyoDudmRX7kpN7bC7a IChGREEpLlx+IFRoZSBGRE TxUB4bswQrr9DhuqJvfFgf HPKujNHej0EnzRBai7OigN lgt5LfgURxsTQnLJ9vKUVp clxwYXIgVVRNQiBMYWJvcm W4q7IqCWJkGJEiQVR3jJiu ybs8RYSrqU2dRVPxI5sfrp paTYdgKCHnu7IwiY8ncVYE tYOwd6TocITvmCVKgBNyYQ 4ummPvKTbXREiDYNX4loOt YTIvn1CeLRtyF9sfL87vzH kqiId1mCV5UWB8lZ1lDyt+ IFxwYXJccGFyIEFwcHJvcH LjWASvyVgcwyIjW2PvrbUr qO3ytOOnkeXuAQ7xNZ0wM6 P4dPIxDTTnveSqm8neZDnr dmUgYmVlbiByZXZpZXdlZC Kmw5KlJXoePVE9HSesjzOa bmNsdWRpbmcgSCZFLCBTcG YeiMJmJZI8VTpfbhQvriMs GH1noV3bfFtjjY1atRGknK X4tqhkSFGjNMXgaPgsEXJi PL1vnDlxrE5jIhKnYgPnFN jmPU5zJESqR9myvAXnSHEq KTChF4ozJvBuoB3xtMceYF xjZjJcZnMyMFxwYXJccGFy XHBsYWluXGYxXGZzMjBcbG FuZzEwMzNcaGljaFxmMVxk XnZjMJBfQGhkS8gtAiSiX8 XxAYDbLiPilWUqL8qjTWil PZO3KQYbHL2lsWPfSG86fA Gxu2lnTZaxoAvsnm6zE31y bEYvPRnftBmgRSCed58al9 DpTGOmrwOefv1uAUVknhD8 zU9oMZVezHrhGYCepNCeAE Tyw8MpOOriwPWeecBgNXfm ZZWxQEPejTZcqqU4uvNaey CmxtRkTWHuiOhzZVZke1Jc SIQxDCsml1Igfi9pqLIpAU YsijHDvJpmcUBnuH7uW7Vr SSAlUODpvy7aMLOheK7vYO mpx1DtyqgzCYPiUJBoBSUy zvQjww6wBFNegLIEEB5CJM hzjPGtw2LrnlSjM8rLXHO0 NUQwNjYwMjgxKSBleGNlcH ErJRExcs27MMRctB4gaYam CVGvgK5brY8qhNrqwC4pEa XuOnWdXVcyMG7gOVPiS4de nAVgESHoPWHsQ1hzUzMppY 9jaFxmMVxjZjJcZnMyMFxw YXJ9fQ== Embedded Images (test code = 2777446095) [facility] [id number] 20:30:39EXAM: XR CHEST 1 VW COMPARISON: Multiple [...] soft tissues: No osseous abnormality is visualized. [facility] + Lactic [id number] 14:58:15* Test Item Value Reference Range Interpretation Comme nts PH (test code = 2) 7.43 7.35-7.45 PCO2 (test code = 0634447365) 29 35-45 L PO2 (test code = 2420618293) 113 80-100 H HCO3 (test code = 1792335473) 18 22-26 L BE (test code = 4490741431) -5.1 -3.0-3.0 L THB (test code = 1715566015) 8.9 g/dL 12.0-16.0 L %O2HB (test code = 5474987774) 96.3 % 94.0-99.0 %COHB ART (test code = 9518961223) 1.8 % 0.0-1.5 H %METHB ART (test code = 7345607114) 0.3 % 0.4-1.5 L VOL%O2 ART (test code = 5849709620) 12.3 % 15.0-23.0 L NA (test code = 5965603443) 138 mmol/L 135-145 K+ (test code = 9963889596) 3.7 mmol/L 3.5-5.0 AC CA IONZ (test code = 0557216462) 4.30 mg/dL 4.50-5.30 L GLUCOSE (test code = 0279397407) 112 mg/dL 70-110 H LACTIC ACID (test code = 3828579779) 1.59 mmol/L 0.50-2.20 Lab Interpretation (test cod e = 34933-7) [facility] (NA, K, CL, CO2, GLUCOSE, BUN, CREATININE, CA)2023-12-06 10:20:05* Test Item Value Reference Range Interpretation Comme nts NA (test code = 7828921873) 136 mmol/L 135-145 K (test code = 2750063082) 4.0 mmol/L 3.5-5.0 CL (test code = 0799627009) 107 mmol/L 98-108 CO2 TOTAL (test code = 7749467468) 16 mmol/L 23-31 L AGAP (test code = 7626672751) 13 2-16 BUN (test code = 8144592133) 41 mg/dL 7-23 H GLUCOSE (test code = 8383738368) 115 mg/dL 70-110 H CREATININE (test code = 2160-0) 2.10 mg/dL 0.50-1.04 H CALCIUM (test code = 0505725630) 7.9 mg/dL 8.6-10.6 L eGFR (test code = 87428-3) 24.2 mL/min/1.73m2 CKD-EPI eGFR (2020). Assuming creatinine has been stable day-to-day for at least three months, the eGFR indicates Category G4 (15 - 29 mL/min/1.73 m2) Lab Interpretation (test code = 76089-7) [facility] 10:20:05* Test Item Value Reference Range Interpretation Comme nts MAGNESIUM (test code = 0708691732) 2.1 mg/dL 1.7-2.4 Lab Interpretation (test cod e = 43598-1) Normal [facility] 10:20:05* Test Item Value Reference Range Interpretation Comme nts PHOSPHORUS (test code = 4048883011) 4.7 mg/dL 2.5-5.0 Lab Interpretation (test cod e = 59580-1) Normal [facility] Center[facility]bc with [id number] 09:59:09* Test Item Value Reference Range Interpretation [...] 32.7 g/dL 31.6-35.1 RDW-SD (test code = 72934-6) 57.8 fL 39.0-49.9 H RDW-CV (test code = 788-0) 21.9 % 12.0-15.5 H PLT (test code = 777-3) 437 166-358 H MPV (test code = 31774-2) 8.8 fL 9.5-12.9 L NRBC/100 WBC (test code = 2608560705) 0.2 0.0-10.0 NRBC x10^3 (test code = 2225808219) 0.03 See_Comment [Automated message] The system which generated this result transmitted reference range: 10*3/?L. The reference range was not used to interpret this result as normal/abnormal. GRAN MAT (NEUT) % (test code = 770-8) 82.2 % IMM GRAN % (test code = 9198326155) 6.10 % LYMPH % (test code = 736-9) 8.5 % MONO % (test code = 5905-5) 3.0 % EOS % (test code = 713-8) 0.1 % BASO % (test code = 706-2) 0.1 % GRAN MAT x10^3(ANC) (test code = 0559657762) 15.85 10*3/uL 1.88-7.09 H IMM GRAN x10^3 (test code = 5780825598) 1.17 10*3/uL 0.00-0.06 H LYMPH x10^3 (test [...] as normal/abnormal. Lab Interpretation (test code = 22453-9) Abnormal [facility] Packed RBC (in units), 1 Units 2023-12-06 09:47:53* Test Item Value Reference Range Interpretation Comme nts Cross Match Result (test code = 4409) Compatible ISBT Blood Type Code (test code = 824495) 6200 Unit Blood Type (test code = 4410) A Pos Unit Number (test code = 4411) [id number] Blood Expiration Date & Time (test code = 431188) [id number] Status Information (test code = 4412) Issued Product Identification (test code = 4413) Red Blood Cells Product Code (test code = 4414) [id number] Performed at [facility] Laboratory Services [facility] Blood [address] [address]Bdbz Free: [phone] No. [id number] [facility] + Lactic [id number] 08:25:51* Test Item Value Reference Range Interpretation Comme nts PH (test code = 2) 7.42 7.35-7.45 PCO2 (test code = 1520867877) 28 35-45 L PO2 (test code = 0925297739) 121 80-100 H HCO3 (test code = 4330129067) 18 22-26 L BE (test code = 3051690533) -5.8 -3.0-3.0 L THB (test code = 6443340659) 8.0 g/dL 12.0-16.0 LL %O2HB (test code = 9202613641) 97.6 % 94.0-99.0 %COHB ART (test code = 6427693619) 0.8 % 0.0-1.5 %METHB ART (test code = 4000865843) 0.3 % 0.4-1.5 L VOL%O2 ART (test code = 8389521489) 11.2 % 15.0-23.0 L NA (test code = 5236720695) 136 mmol/L 135-145 K+ (test code = 8157763967) 4.1 mmol/L 3.5-5.0 AC CA IONZ (test code = 0214789682) 4.30 mg/dL 4.50-5.30 L GLUCOSE (test code = 3824069208) 109 mg/dL 70-110 LACTIC ACID (test code = 1575815816) 1.56 mmol/L 0.50-2.20 Lab Interpretation (test cod e = 36032-6) Abnormal [facility]. 30 minutes post ventilation.2023-12-05 17:42:21* Test Item Value Reference Range Interpretation Comme nts PH (test code = 2) 7.42 7.35-7.45 PCO2 (test code = 6111711467) 29 35-45 L PO2 (test code = 7646209023) 132 80-100 H HCO3 (test code = 0798513499) 19 22-26 L BE (test code = 4999982995) -4.5 -3.0-3.0 L Lab Interpretation (test cod e = 75217-8) [facility] 1 [id number] 14:08:34Study: Single view chest. Ordering Physician: DONA ELKINS Date: 12/05/2023 4:00 AM History:Intubated, respiratory failure. COMPARISON: 12/04/2023 Findings: Single frontal view chest demonstrates cardiomegaly. The lungsappear clear without infiltrate, pleural effusion or pneumothorax. Theendotracheal tube terminates 5.0 cm above the sera. The right internaljugular venous catheter terminates overthe distal superior vena cava.[facility] with [id number] 09:58:11* Test Item Value Reference Range Interpretation [...] 32.0 g/dL 31.6-35.1 RDW-SD (test code = 89405-9) 56.0 fL 39.0-49.9 H RDW-CV (test code = 788-0) 21.4 % 12.0-15.5 H PLT (test code = 777-3) 614 166-358 H MPV (test code = 64951-6) 8.9 fL 9.5-12.9 L NRBC/100 WBC (test code = 1412118585) 0.3 0.0-10.0 NRBC x10^3 (test code = 8344863476) 0.06 See_Comment [Automated message] The system which generated this result transmitted reference range: 10*3/?L. The reference range was not used to interpret this result as normal/abnormal. GRAN MAT (NEUT) % (test code = 770-8) 82.5 % IMM GRAN % (test code = 6741080802) 4.10 % LYMPH % (test code = 736-9) 9.4 % MONO % (test code = 5905-5) 3.8 % EOS % (test code = 713-8) 0.0 % BASO % (test code = 706-2) 0.2 % GRAN MAT x10^3(ANC) (test code = 8204436927) 18.23 10*3/uL 1.88-7.09 H IMM GRAN x10^3 (test code = 0766586456) 0.91 10*3/uL 0.00-0.06 H LYMPH x10^3 (test [...] result as normal/abnormal. BANDS (test code = 5209410120) Increased A Lab Interpretation (test code = 09545-4) [facility] (NA, K, CL, CO2, GLUCOSE, BUN, CREATININE, CA)2023-12-05 09:41:38* Test Item Value Reference Range Interpretation Comme nts NA (test code = 5319484338) 134 mmol/L 135-145 L K (test code = 6724563846) 5.0 mmol/L 3.5-5.0 CL (test code = 3648147189) 104 mmol/L 98-108 CO2 TOTAL (test code = 3777150327) 16 mmol/L 23-31 L AGAP (test code = 1897911128) 14 2-16 BUN (test code = 5964080861) 38 mg/dL 7-23 H GLUCOSE (test code = 5396740344) 121 mg/dL 70-110 H CREATININE (test code = 2160-0) 2.53 mg/dL 0.50-1.04 H CALCIUM (test code = 5756603066) 8.1 mg/dL 8.6-10.6 L eGFR (test code = 15531-5) 19.3 mL/min/1.73m2 CKD-EPI eGFR (2020). Assuming creatinine has been stable day-to-day for at least three months, the eGFR indicates Category G4 (15 - 29 mL/min/1.73 m2) Lab Interpretation (test code = 99355-6) Abnormal [facility] Center[facility]esium2024-09-10 09:41:38* Test Item Value Reference Range Interpretation Comme nts MAGNESIUM (test code = 8529121060) 2.1 mg/dL 1.7-2.4 Lab Interpretation (test cod e = 33203-1) Normal [facility] Center[facility]osphorus2024-09-10 09:41:38* Test Item Value Reference Range Interpretation Comme nts PHOSPHORUS (test code = 5120175580) 4.9 mg/dL 2.5-5.0 Lab Interpretation (test cod e = 27410-3) Normal [facility] + Lactic [id number] 08:38:38* Test Item Value Reference Range Interpretation Comme nts PH (test code = 2) 7.43 7.35-7.45 PCO2 (test code = 2085245467) 28 35-45 L PO2 (test code = 1064154562) 112 80-100 H HCO3 (test code = 7321332684) 18 22-26 L BE (test code = 0795358880) -5.3 -3.0-3.0 L THB (test code = 9243158444) 7.9 g/dL 12.0-16.0 LL %O2HB (test code = 2546244273) 97.3 % 94.0-99.0 %COHB ART (test code = 2962919299) 0.7 % 0.0-1.5 %METHB ART (test code = 3237416329) 0.3 % 0.4-1.5 L VOL%O2 ART (test code = 0058991472) 11.0 % 15.0-23.0 L NA (test code = 3487925366) 134 mmol/L 135-145 L K+ (test code = 0797194525) 5.1 mmol/L 3.5-5.0 H AC CA IONZ (test code = 0497784870) 4.30 mg/dL 4.50-5.30 L GLUCOSE (test code = 6441435907) 120 mg/dL 70-110 H LACTIC ACID (test code = 2605277171) 1.95 mmol/L 0.50-2.20 Lab Interpretation (test cod e = 30827-7) Abnormal [facility] 1 [id number] 05:27:23Ordering physician: TAYLOR SEGUNDO Indication: Central line placement Comparison: Chest dated 12/04/2023 at 1940 Technical quality: Adequate Findings: Single AP view of the chest. Endotracheal tube terminates 5.6 cmabove the sera. Right internal jugular central venous catheter terminatesjust past the cavoatrial junction. The cardiopericardial silhouette ismoderately enlarged. The lungs are clear bilat erally. The visualized bonythorax is intact.[facility] 1 [id number] 05:20:21Ordering physician: TAYLOR SEGUNDO Indication: Central line Comparison: Chest dated 12/15/2023 1949 Technical quality: Adequate Findings: Single AP view of the chest. Endotracheal tube terminates 5.1 cmabove the sera. Right internal jugular central venous catheter terminatesin the right atrium. There is stable moderate cardiomegaly. No acutepulmonary process is appreciated. The visualized bony thorax is intact.[facility] 20 + Lactic [id number] 04:05:35* Test Item Value Reference Range Interpretation Comme nts PH (test code = 2) 7.41 7.35-7.45 PCO2 (test code = 7649946033) 28 35-45 L PO2 (test code = 5639926479) 115 80-100 H HCO3 (test code = 1615355967) 17 22-26 L BE (test code = 7003009545) -6.7 -3.0-3.0 L THB (test code = 8642058934) 8.7 g/dL 12.0-16.0 L %O2HB (test code = 8849749866) 97.0 % 94.0-99.0 %COHB ART (test code = 2142039330) 1.5 % 0.0-1.5 %METHB ART (test code = 6301839291) 0.3 % 0.4-1.5 L VOL%O2 ART (test code = 9333820665) 12.1 % 15.0-23.0 L NA (test code = 4031575891) 133 mmol/L 135-145 L K+ (test code = 6194609790) 5.1 mmol/L 3.5-5.0 H AC CA IONZ (test code = 5055994174) 4.30 mg/dL 4.50-5.30 L GLUCOSE (test code = 9339348724) 104 mg/dL 70-110 LACTIC ACID (test code = 8025264316) 2.10 mmol/L 0.50-2.20 QUES Lab Interpretation (test cod e = 40443-4) [facility] + Lactic [id number] 01:59:51* Test Item Value Reference Range Interpretation Comme nts PH (test code = 2) 7.42 7.35-7.45 PCO2 (test code = 2359168774) 28 35-45 L PO2 (test code = 3112881611) 155 80-100 H HCO3 (test code = 3447633452) 18 22-26 L BE (test code = 5718329942) -6.2 -3.0-3.0 L THB (test code = 1692702867) 7.1 g/dL 12.0-16.0 LL %O2HB (test code = 9540547174) 97.8 % 94.0-99.0 %COHB ART (test code = 1747423816) 1.5 % 0.0-1.5 %METHB ART (test code = 5959738229) 0.3 % 0.4-1.5 L VOL%O2 ART (test code = 0181324344) 10.1 % 15.0-23.0 L NA (test code = 5391289096) 134 mmol/L 135-145 L K+ (test code = 2535944381) 5.1 mmol/L 3.5-5.0 H AC CA IONZ (test code = 2429846543) 4.20 mg/dL 4.50-5.30 L GLUCOSE (test code = 7387991710) 104 mg/dL 70-110 LACTIC ACID (test code = 8626075121) 3.00 mmol/L 0.50-2.20 H QUES Lab Interpretation (test cod e = 91083-4) Abnormal [facility] with [id number] 23:18:18* Test Item Value Reference Range Interpretation [...] 31.7 g/dL 31.6-35.1 RDW-SD (test code = 18882-4) 57.0 fL 39.0-49.9 H RDW-CV (test code = 788-0) 21.1 % 12.0-15.5 H PLT (test code = 777-3) 692 166-358 H MPV (test code = 55651-4) 9.1 fL 9.5-12.9 L NRBC/100 WBC (test code = 7457993937) 0.5 0.0-10.0 NRBC x10^3 (test code = 3585254052) 0.12 See_Comment [Automated message] The system which generated this result transmitted reference range: 10*3/?L. The reference range was not used to interpret this result as normal/abnormal. GRAN MAT (NEUT) % (test code = 770-8) 84.9 % IMM GRAN % (test code = 0100218561) 2.90 % LYMPH % (test code = 736-9) 8.6 % MONO % (test code = 5905-5) 3.3 % EOS % (test code = 713-8) 0.0 % BASO % (test code = 706-2) 0.3 % GRAN MAT x10^3(ANC) (test code = 0209678409) 19.00 10*3/uL 1.88-7.09 H IMM GRAN x10^3 (test code = 8281024263) 0.65 10*3/uL 0.00-0.06 H LYMPH x10^3 (test [...] result as normal/abnormal. BANDS (test code = 5861690963) MARKED INCREASED A DOHLE BODIES (test code = 7792-5) Present A Lab Interpretation (test code = 01969-8) Abnormal [facility] Metabolic Panel (NA, K, CL, CO2, GLUCOSE, BUN, CREATININE, CA)2023-12-04 22:55:40* Test Item Value Reference Range Interpretation Comme nts NA (test code = 4142111218) 134 mmol/L 135-145 L K (test code = 0010305545) 5.1 mmol/L 3.5-5.0 H CL (test code = 6847863836) 106 mmol/L 98-108 CO2 TOTAL (test code = 2565206093) 16 mmol/L 23-31 L AGAP (test code = 0261844734) 12 2-16 BUN (test code = 1897764409) 34 mg/dL 7-23 H GLUCOSE (test code = 9913063469) 102 mg/dL 70-110 CREATININE (test code = 2160-0) 2.15 mg/dL 0.50-1.04 H CALCIUM (test code = 7961416979) 8.0 mg/dL 8.6-10.6 L eGFR (test code = 71123-8) 23.5 mL/min/1.73m2 CKD-EPI eGFR (2020). Assuming creatinine has been stable day-to-day for at least three months, the eGFR indicates Category G4 (15 - 29 mL/min/1.73 m2) Lab Interpretation (test code = 03790-2) Abnormal [facility] [id number] 21:56:12* Test Item Value Reference Range Interpretation Comme nts Height (test code = 9396234998) 68 in Weight (test code = 4983648738) 375 lbs Systolic BP (test code = 5110910192) 195 mmHg Diastolic BP (test code = 8400017191) 165 mmHg Heart Rate (test code = 9172753078) 109 bpm BSA (test code = 3282439396) 2.7 m2 LVIDD (test code = 4952495487) 4.90 cm Left Ventricular End Diastolic Volume by Teichholz Method (test code = 5961689) 115.2 mL IVS (test code = 6816861579) 0.92 cm Interventricular Septum Diastolic Thickness by 2D (test code = 3517122) 0.92 cm LVPWD (test code = 1440235557) 1.02 cm PW (test code = 2475483935) 1.02 cm 0.6-1.1 EF(Teich) (test code = 3640419815) 60.40 % LVIDS (test code = 3923781377) 3.30 cm Left Ventricular End Systolic Volume by Teichholz Method (test code = 4124172) 45.7 mL FS (test code = 7085715615) 32 % EF - 2D (test code = 00452832) 60.40 % A4C EF (test code = 8902211010) 58.60 % EF(sp4-el) (test code = 2649011290) 55.90 % SV(MOD-sp4) (test code = 2673122112) 65.80 mL SV(sp4-el) (test code = 6645781433) 64.20 mL LV Diastolic Volume (BP) (test code = 0230986693) 114.6 mL A2C EF (test code = 1668628454) 72.10 % EF(MOD-bp) (test code = 0387045074) 65.70 % EF(sp2-el) (test code = 3277058032) 74.20 % LV Systolic Volume (BP) (test code = 3772973109) 39.3 mL SV(MOD-bp) (test code = 0464783214) 75.30 mL SV(MOD-sp2) (test code = 5648721183) 78.80 mL EF (test code = 7328653642) 66 Left Ventricular Stroke Volume by 2-D Biplane-MOD (test code = 3577050) 75.3 mL LV Diastolic Volume Index (BP) (test code = 2330924573) 42.4 mL/m2 LV Systolic Volume Index (BP) (test code = 7286798781) 14.6 mL/m2 Radiology Study observation (narrative) (test code = 30279-2) JESSICA (test code = JESSICA) ?Left?Ventricle: Not [...] are hypokinetic: apex.All other segments are normal. [facility] + Lactic [id number] 20:05:31* Test Item Value Reference Range Interpretation Comme nts PH (test code = 2) 7.40 7.35-7.45 PCO2 (test code = 2733245895) 27 35-45 L PO2 (test code = 2339477361) 149 80-100 H HCO3 (test code = 3054398028) 16 22-26 L BE (test code = 3502539391) -7.6 -3.0-3.0 L THB (test code = 9646566280) 10.5 g/dL 12.0-16.0 L %O2HB (test code = 2787172090) 98.1 % 94.0-99.0 %COHB ART (test code = 6387088311) 1.1 % 0.0-1.5 %METHB ART (test code = 7790353021) 0.3 % 0.4-1.5 L VOL%O2 ART (test code = 1865122146) 14.8 % 15.0-23.0 L NA (test code = 7255219698) 134 mmol/L 135-145 L K+ (test code = 5147074261) 5.1 mmol/L 3.5-5.0 H AC CA IONZ (test code = 5781792895) 4.30 mg/dL 4.50-5.30 L GLUCOSE (test code = 0806821911) 97 mg/dL 70-110 LACTIC ACID (test code = 3907192122) 4.39 mmol/L 0.50-2.20 H QUES Lab Interpretation (test cod e = 74846-6) Abnormal [facility] Center[facility]cosylated Hemoglobin (A1C)2023-12-04 18:13:56* Test Item Value Reference Range Interpretation Comme nts HGB A1C (test code = 4548-4) 5.4 % 4.0-5.7 JESSICA (test code = JESSICA) Reference RangesNormal: <5.7%Prediabetes: 5.7 - 6.4%Diabetes: > 6.5% Lab Interpretation (test code = 65621-7) Normal [facility] CenterGlycosylated Hemoglobin (A1C)2023-12-04 18:13:56* Test Item Value Reference Range Interpretation Comme nts HGB A1C (test code = 4548-4) 5.4 % 4.0-5.7 JESSICA (test code = JESSICA) Reference RangesNormal: <5.7%Prediabetes: 5.7 - 6.4%Diabetes: > 6.5% Lab Interpretation (test code = 15790-6) Normal [facility]XR [id number] 15:42:50EXAM: XR KUB, XR KUB, XR KUB HISTORY: 73 years-old Female; NGT . TECHNIQUE: Frontal view of the abdo men and pelvis COMPARISON: CT abdomen pelvis dated 12/03/2023 [id number] dated 12/04[facility]2023 [facility] [id number] 15:42:50EXAM: XR KUB, XR KUB, XR KUB HISTORY: 73 years-old Female; NGT . TECHNIQUE: Frontal view of the abdomen and pelvis COMPARISON: CT abdomen pelvis dated 12/03/2023 [id number] dated 12/04/2023 at 2:24[facility] 1 VW 2023-12-04 13:59:41EXAM: XR CHEST 1 VW COMPARISON: 12/02/2023 HISTORY: intub FINDINGS: Lines/Tubes: Interval placement of endotracheal tube which projectsapproximately 4 cm above the sera. An enteric tube coursessubdiap hragmatically with tip excluded from gcahi-bf-rtot. Lungs: No focal consolidation or pneumothorax. Decrease in previously seenprominent interstitial markings. Possible trace right pleural effusion. Heart/Mediastinum: The cardiac silhouette appears borderline enlarged. Bones and soft tissues: No acute findings are detected.[facility] 1 [id number] 13:59:41EXAM: XR CHEST 1 VW COMPARISON: 12/02/2023 HISTORY: intub FINDINGS: Lines/Tubes: Interval placement of endotracheal tube which projectsapproximately 4 cm above the sera. An enteric tube coursessubdiaphragmatically with tip excluded from tpuss-oz-umpd. Lungs: No focal consolidation or pneumothorax. D ecrease in previously seenprominent interstitial markings. Possible trace right pleural effusion. Heart/Mediastinum: The cardiac silhouette appears borderline enlarged. Bones and soft tissues: No acute findings are detected.[facility] 20 + Lactic [id number] 10:31:19* Test Item Value Reference Range Interpretation Comme nts PH (test code = 2) 7.33 7.35-7.45 L PCO2 (test code = 8542586569) 30 35-45 L PO2 (test code = 7595371386) 178 80-100 H HCO3 (test code = 7799352137) 16 22-26 L BE (test code = 6621591493) -8.8 -3.0-3.0 L THB (test code = 0040539086) 11.8 g/dL 12.0-16.0 L %O2HB (test code = 3257331435) 98.1 % 94.0-99.0 %COHB ART (test code = 2063803089) 1.0 % 0.0-1.5 %METHB ART (test code = 9679326976) 0.3 % 0.4-1.5 L VOL%O2 ART (test code = 4877724920) 16.6 % 15.0-23.0 NA (test code = 6290600286) 134 mmol/L 135-145 L K+ (test code = 7840820612) 4.8 mmol/L 3.5-5.0 AC CA IONZ (test code = 4308632565) 4.50 mg/dL 4.50-5.30 GLUCOSE (test code = 7737272723) 111 mg/dL 70-110 H LACTIC ACID (test code = 2827085635) 4.15 mmol/L 0.50-2.20 H Lab Interpretation (test cod e = 76074-0) Abnormal [facility] + Lactic [id number] 10:31:19* Test Item Value Reference Range Interpretation Comme nts PH (test code = 2) 7.33 7.35-7.45 L PCO2 (test code = 8386041047) 30 35-45 L PO2 (test code = 5660676076) 178 80-100 H HCO3 (test code = 8981318171) 16 22-26 L BE (test code = 4482163923) -8.8 -3.0-3.0 L THB (test code = 7236137732) 11.8 g/dL 12.0-16.0 L %O2HB (test code = 0620848106) 98.1 % 94.0-99.0 %COHB ART (test code = 9734898968) 1.0 % 0.0-1.5 %METHB ART (test code = 9204746699) 0.3 % 0.4-1.5 L VOL%O2 ART (test code = 4508411920) 16.6 % 15.0-23.0 NA (test code = 5999334022) 134 mmol/L 135-145 L K+ (test code = 8872844745) 4.8 mmol/L 3.5-5.0 AC CA IONZ (test code = 1745380717) 4.50 mg/dL 4.50-5.30 GLUCOSE (test code = 9917026158) 111 mg/dL 70-110 H LACTIC ACID (test code = 1067101648) 4.15 mmol/L 0.50-2.20 H Lab Interpretation (test cod e = 30278-5) Abnormal [facility] CenterCbc with [id number] 09:09:53* Test Item Value Reference Range Interpretation [...] g/dL 31.6-35.1 L RDW-SD (test code = 92018-5) 58.1 fL 39.0-49.9 H RDW-CV (test code = 788-0) 21.5 % 12.0-15.5 H PLT (test code = 777-3) 829 166-358 H MPV (test code = 16680-4) 8.8 fL 9.5-12.9 L NRBC/100 WBC (test code = 3552504930) 1.1 0.0-10.0 NRBC x10^3 (test code = 1970636667) 0.14 See_Comment [Automated message] The system which generated this result transmitted reference range: 10*3/?L. The reference range was not used to interpret this result as normal/abnormal. GRAN MAT (NEUT) % (test code = 770-8) 82.1 % IMM GRAN % (test code = 5234253566) 1.10 % LYMPH % (test code = 736-9) 13.0 % MONO % (test code = 5905-5) 3.2 % EOS % (test code = 713-8) 0.1 % BASO % (test code = 706-2) 0.5 % GRAN MAT x10^3(ANC) (test code = 9577182825) 10.52 10*3/uL 1.88-7.09 H IMM GRAN x10^3 (test code = 4707871016) 0.14 10*3/uL 0.00-0.06 H LYMPH x10^3 (test [...] result as normal/abnormal. BANDS (test code = 4821378269) MARKED INCREASED A DOHLE BODIES (test code = 7792-5) Present A Lab Interpretation (test code = 51901-7) Abnormal [facility] with [id number] 09:09:53* Test Item Value Reference Range Interpretation [...] g/dL 31.6-35.1 L RDW-SD (test code = 82813-2) 58.1 fL 39.0-49.9 H RDW-CV (test code = 788-0) 21.5 % 12.0-15.5 H PLT (test code = 777-3) 829 166-358 H MPV (test code = 39075-5) 8.8 fL 9.5-12.9 L NRBC/100 WBC (test code = 0409314613) 1.1 0.0-10.0 NRBC x10^3 (test code = 5006341274) 0.14 See_Comment [Automated message] The system which generated this result transmitted reference range: 10*3/?L. The reference range was not used to interpret this result as normal/abnormal. GRAN MAT (NEUT) % (test code = 770-8) 82.1 % IMM GRAN % (test code = 8265793106) 1.10 % LYMPH % (test code = 736-9) 13.0 % MONO % (test code = 5905-5) 3.2 % EOS % (test code = 713-8) 0.1 % BASO % (test code = 706-2) 0.5 % GRAN MAT x10^3(ANC) (test code = 1537636056) 10.52 10*3/uL 1.88-7.09 H IMM GRAN x10^3 (test code = 5811293208) 0.14 10*3/uL 0.00-0.06 H LYMPH x10^3 (test [...] result as normal/abnormal. BANDS (test code = 3387528086) MARKED INCREASED A DOHLE BODIES (test code = 7792-5) Present A Lab Interpretation (test code = 76368-3) Abnormal [facility] Center[facility]osph[facility]2024-[facility]-09 08:50:45* Test Item Value Reference Range Interpretation Comme nts PHOSPHORUS (test code = 8879998001) 5.9 mg/dL 2.5-5.0 H Lab Interpretation (test cod e = 02378-1) Abnormal [facility] Center[facility]esium2024-09-09 08:50:45* Test Item Value Reference Range Interpretation Comme nts MAGNESIUM (test code = 0435772851) 2.1 mg/dL 1.7-2.4 Lab Interpretation (test cod e = 91449-3) Normal [facility] Metabolic Panel (NA, K, CL, CO2, GLUCOSE, BUN, CREATININE, CA)2023-12-04 08:50:45* Test Item Value Reference Range Interpretation Comme nts NA (test code = 3746038672) 135 mmol/L 135-145 K (test code = 6307786057) 5.0 mmol/L 3.5-5.0 CL (test code = 4625579429) 104 mmol/L 98-108 CO2 TOTAL (test code = 5426571313) 16 mmol/L 23-31 L AGAP (test code = 1101868688) 15 2-16 BUN (test code = 7783422146) 29 mg/dL 7-23 H GLUCOSE (test code = 3768808414) 126 mg/dL 70-110 H CREATININE (test code = 2160-0) 1.51 mg/dL 0.50-1.04 H CALCIUM (test code = 4751369209) 8.6 mg/dL 8.6-10.6 eGFR (test code = 94649-3) 35.9 mL/min/1.73m2 CKD-EPI eGFR (2020). Assuming creatinine has been stable day-to-day for at least three months, the eGFR indicates Category G3b (30 - 44 mL/min/1.73 m2) Lab Interpretation (test code = 23281-3) Abnormal [facility] Metabolic Panel (NA, K, CL, CO2, GLUCOSE, BUN, CREATININE, CA)2023-12-04 08:50:45* Test Item Value Reference Range Interpretation Comme nts NA (test code = 4040710961) 135 mmol/L 135-145 K (test code = 1540537727) 5.0 mmol/L 3.5-5.0 CL (test code = 4702717175) 104 mmol/L 98-108 CO2 TOTAL (test code = 8947463593) 16 mmol/L 23-31 L AGAP (test code = 0929009610) 15 2-16 BUN (test code = 4605261550) 29 mg/dL 7-23 H GLUCOSE (test code = 4186619203) 126 mg/dL 70-110 H CREATININE (test code = 2160-0) 1.51 mg/dL 0.50-1.04 H CALCIUM (test code = 8967457361) 8.6 mg/dL 8.6-10.6 eGFR (test code = 05031-6) 35.9 mL/min/1.73m2 CKD-EPI eGFR (2020). Assuming creatinine has been stable day-to-day for at least three months, the eGFR indicates Category G3b (30 - 44 mL/min/1.73 m2) Lab Interpretation (test code = 65683-5) [facility]* Test Item Value Reference Range Interpretation Comme nts MAGNESIUM (test code = 1150860437) 2.1 mg/dL 1.7-2.4 Lab Interpretation (test cod e = 55586-9) [facility] 08:50:45* Test Item Value Reference Range Interpretation Comme nts PHOSPHORUS (test code = 7009518011) 5.9 mg/dL 2.5-5.0 H Lab Interpretation (test cod e = 39983-2) [facility] 08:48:34* Test Item Value Reference Range Interpretation Comme nts Fibrinogen (test code = 0233498207) 879 mg/dL 167-453 H Lab Interpretation (test cod e = 96203-2) [facility] 08:48:34* Test Item Value Reference Range Interpretation Comme nts Fibrinogen (test code = 9260861018) 879 mg/dL 167-453 H Lab Interpretation (test cod e = 58440-1) [facility]normal [facility] / [id number] 08:48:09* Test Item Value Reference Range Interpretation Comme nts PROTIME PATIENT (test code = 5964-2) 21.6 10.1-12.6 H INR (test code = 6301-6) 2.0 Normal INR <1.1; Warfarin Therapeutic range 2.0 to 3.0 or 2.5 to 3.5, depending upon the indications. Lab Interpretation (test code = 15129-9) [facility]normal [facility] [id number] 08:48:09* Test Item Value Reference Range Interpretation Comme [facility] APTT Patient (test code = 3173-2) 32 26-36 Lab Interpretation (test cod e = 55054-5) [facility] [id number] 08:48:09* Test Item Value Reference Range Interpretation Comme [facility] APTT Patient (test code = 3173-2) 32 26-36 Lab Interpretation (test cod e = 61438-0) [facility] / [id number] 08:48:09* Test Item Value Reference Range Interpretation Comme [facility] PROTIME PATIENT (test code = 5964-2) 21.6 10.1-12.6 H INR (test code = 6301-6) 2.0 Normal INR <1.1; Warfarin Therapeutic range 2.0 to 3.0 or 2.5 to 3.5, depending upon the indications. Lab Interpretation (test code = 85758-4) [facility]normal [facility] + Lactic Lvvm6381-40-36 08:18:49* Test Item Value Reference Range Interpretation Comme [facility] PH (test code = 2) 7.27 7.35-7.45 L PCO2 (test code = 3761153243) 37 35-45 PO2 (test code = 0295555491) 312 80-100 H HCO3 (test code = 2908254566) 17 22-26 L BE (test code = 0689669108) -9.5 -3.0-3.0 L THB (test code = 3177705478) 11.8 g/dL 12.0-16.0 L %O2HB (test code = 6698780400) 98.7 % 94.0-99.0 %COHB ART (test code = 8474086242) 1.0 % 0.0-1.5 %METHB ART (test code = 6269704187) 0.3 % 0.4-1.5 L VOL%O2 ART (test code = 6645172086) 17.2 % 15.0-23.0 NA (test code = 3630756022) 134 mmol/L 135-145 L K+ (test code = 1310208261) 5.0 mmol/L 3.5-5.0 AC CA IONZ (test code = 1381406259) 4.60 mg/dL 4.50-5.30 GLUCOSE (test code = 2796551420) 125 mg/dL 70-110 H LACTIC ACID (test code = 6746884375) 4.75 mmol/L 0.50-2.20 H Lab Interpretation (test cod e = 70239-0) [facility]normal [facility] + Lactic Wkzc3596-28-73 08:18:49* Test Item Value Reference Range Interpretation Comme nts PH (test code = 2) 7.27 7.35-7.45 L PCO2 (test code = 0674268404) 37 35-45 PO2 (test code = 6204410678) 312 80-100 H HCO3 (test code = 7619932382) 17 22-26 L BE (test code = 6526438356) -9.5 -3.0-3.0 L THB (test code = 1701225281) 11.8 g/dL 12.0-16.0 L %O2HB (test code = 3142776975) 98.7 % 94.0-99.0 %COHB ART (test code = 5157495148) 1.0 % 0.0-1.5 %METHB ART (test code = 9490819328) 0.3 % 0.4-1.5 L VOL%O2 ART (test code = 6552297145) 17.2 % 15.0-23.0 NA (test code = 0410112662) 134 mmol/L 135-145 L K+ (test code = 7493756015) 5.0 mmol/L 3.5-5.0 AC CA IONZ (test code = 1470747767) 4.60 mg/dL 4.50-5.30 GLUCOSE (test code = 7188701803) 125 mg/dL 70-110 H LACTIC ACID (test code = 2175066458) 4.75 mmol/L 0.50-2.20 H Lab Interpretation (test cod e = 52137-4) Abnormal [facility] Center[facility]are Packed RBC (in units), 2 Units 2023-12-04 02:36:27* Test Item Value Reference Range Interpretation Comme nts Cross Match Result (test code = 4409) Compatible ISBT Blood Type Code (test code = 854827) 6200 Unit Blood Type (test code = 4410) A Pos Unit Number (test code = 4411) [id number] Blood Expiration Date & Time (test code = 622942) 622613787785 Status Information (test code = 4412) Issued Product Identification (test code = 4413) Red Blood Cells Product Code (test code = 4414) [id number] Performed at [address] [address]Qpgz Free: [phone] No. [id number] [facility] Packed RBC (in units), 2 Units 2023-12-04 02:36:27* Test Item Value Reference Range Interpretation Comme nts Cross Match Result (test code = 4409) Compatible ISBT Blood Type Code (test code = 812697) 6200 Unit Blood Type (test code = 4410) A Pos Unit Number (test code = 4411) [id number] Blood Expiration Date & Time (test code = 669965) 220917164886 Status Information (test code = 4412) Issued Product Identification (test code = 4413) Red Blood Cells Product Code (test code = 4414) [id number] Performed at [address] [address]Rsdp Free: [phone] No. [id number] [facility] CenterArterial Mive5376-26-95 01:12:00WBashir beavers MD ? ? 12/03/2023 ?8:44 [...] wires accounted forComments: ? Tegaderm CHG applied. [facility] CenterIntubation2024-09-09 00:57:00WBashir beavers MD ? ? 12/03/2023 ?8:42 PMIntubationDate/Time: 12/03/2023 7:57 PMUrgency: elective Airway not difficult General Information and Staff Patient location during procedure: ORPerformed: resident/STORAGE WHARFAGE CLERK Performed by: Stan Izquierdo, MDAuthorized by: Kentrell [...] ?Lips, gums, teeth, and nose unchanged vs. preop.[facility] CenterCT ABDOMEN PELVIS W FSTQSHLJ6633-96-84 23:18:25EXAM: CT ABDOMEN AND PELVIS WITH CONTRAST [...] the spine, sacroiliac joints and hips is present.[facility] Center[facility] W CONTRAST 2023-12-03 23:18:25EXAM: CT [...] spine, sacroiliac joints and hips is present.[facility]BDOMEN [facility]EL[facility] W CONTRAST 2023-12-03 23:14:34EXAM: [...] spine, sacroiliac joints and hips is present.[facility] ABDOMEN PELVIS W CGMNVULT5154-18-31 23:14:34EXAM: CT ABDOMEN AND PELVIS WITH CONTRAST [...] the spine, sacroiliac joints and hips is present.[facility] 21 + Lactic Hiah8150-02-13 21:02:46* Test Item Value Reference Range Interpretation Comme nts PH (test code = 2153950720) 7.44 7.32-7.42 H PCO2 GE (test code = 1054556634) 31 41-51 L PO2 GE (test code = 9749331190) 33 25-40 HCO3 GE (test code = 3871212909) 21 24-28 L AC VBE(BEAKER) (test code = 9036121258) -3.0 mEq/L THB GE (test code = 0430206091) 9.3 g/dL 12.0-16.0 L %O2HB GE (test code = 0179543061) 63.2 % 52.0-63.0 H %COHB GE (test code = 7871693536) 1.6 % 0.0-1.5 H %METHB GE (test code = 8560661840) 0.3 % 0.4-1.5 L VOL%O2 GE (test code = 5712700834) 8.3 % 6.0-12.0 NA (test code = 9596517950) 134 mmol/L 135-145 L K+ (test code = 6154305297) 5.4 mmol/L 3.5-5.0 H AC CA IONZ (test code = 2624386727) 4.50 mg/dL 4.50-5.30 GLUCOSE (test code = 2872194909) 126 mg/dL 70-110 H LACTIC ACID (test code = 2569541002) 3.03 mmol/L 0.50-2.20 H Lab Interpretation (test cod e = 49788-2) Abnormal [facility] 21 + Lactic Rwnv6147-84-13 21:02:46* Test Item Value Reference Range Interpretation Comme nts PH (test code = 9037075598) 7.44 7.32-7.42 H PCO2 GE (test code = 7804797469) 31 41-51 L PO2 GE (test code = 6758662034) 33 25-40 HCO3 GE (test code = 6596322071) 21 24-28 L AC VBE(BEAKER) (test code = 2714425433) -3.0 mEq/L THB GE (test code = 2479339223) 9.3 g/dL 12.0-16.0 L %O2HB GE (test code = 3830033291) 63.2 % 52.0-63.0 H %COHB GE (test code = 9259784460) 1.6 % 0.0-1.5 H %METHB GE (test code = 2332681050) 0.3 % 0.4-1.5 L VOL%O2 GE (test code = 0813498493) 8.3 % 6.0-12.0 NA (test code = 0805174727) 134 mmol/L 135-145 L K+ (test code = 8417225429) 5.4 mmol/L 3.5-5.0 H AC CA IONZ (test code = 8346691596) 4.50 mg/dL 4.50-5.30 GLUCOSE (test code = 7105359797) 126 mg/dL 70-110 H LACTIC ACID (test code = 8499591643) 3.03 mmol/L 0.50-2.20 H Lab Interpretation (test cod e = 66250-7) Abnormal [facility] CenterCbc with Axrh1210-99-25 20:26:23* Test Item Value Reference Range Interpretation [...] 31.6 g/dL 31.6-35.1 RDW-SD (test code = 73271-0) 58.9 fL 39.0-49.9 H RDW-CV (test code = 788-0) 22.5 % 12.0-15.5 H PLT (test code = 777-3) 758 166-358 H MPV (test code = 60225-9) 9.1 fL 9.5-12.9 L NRBC/100 WBC (test code = 0907515850) 0.2 0.0-10.0 NRBC x10^3 (test code = 4028489174) 0.04 See_Comment [Automated message] The system which generated this result transmitted reference range: 10*3/?L. The reference range was not used to interpret this result as normal/abnormal. GRAN MAT (NEUT) % (test code = 770-8) 80.5 % IMM GRAN % (test code = 8541442740) 1.30 % LYMPH % (test code = 736-9) 14.5 % MONO % (test code = 5905-5) 3.2 % EOS % (test code = 713-8) 0.3 % BASO % (test code = 706-2) 0.2 % GRAN MAT x10^3(ANC) (test code = 5423267303) 14.69 10*3/uL 1.88-7.09 H IMM GRAN x10^3 (test code = 7601527930) 0.23 10*3/uL 0.00-0.06 H LYMPH x10^3 (test [...] result as normal/abnormal. BANDS (test code = 2979107842) MARKED INCREASED A DOHLE BODIES (test code = 7792-5) Present A Lab Interpretation (test code = 51060-4) Abnormal [facility] with Qean4155-60-23 20:26:23* Test Item Value Reference Range Interpretation [...] 31.6 g/dL 31.6-35.1 RDW-SD (test code = 59796-9) 58.9 fL 39.0-49.9 H RDW-CV (test code = 788-0) 22.5 % 12.0-15.5 H PLT (test code = 777-3) 758 166-358 H MPV (test code = 69690-9) 9.1 fL 9.5-12.9 L NRBC/100 WBC (test code = 4933788651) 0.2 0.0-10.0 NRBC x10^3 (test code = 2243906130) 0.04 See_Comment [Automated message] The system which generated this result transmitted reference range: 10*3/?L. The reference range was not used to interpret this result as normal/abnormal. GRAN MAT (NEUT) % (test code = 770-8) 80.5 % IMM GRAN % (test code = 8459401898) 1.30 % LYMPH % (test code = 736-9) 14.5 % MONO % (test code = 5905-5) 3.2 % EOS % (test code = 713-8) 0.3 % BASO % (test code = 706-2) 0.2 % GRAN MAT x10^3(ANC) (test code = 0153497002) 14.69 10*3/uL 1.88-7.09 H IMM GRAN x10^3 (test code = 4540781824) 0.23 10*3/uL 0.00-0.06 H LYMPH x10^3 (test [...] result as normal/abnormal. BANDS (test code = 2906571007) MARKED INCREASED A DOHLE BODIES (test code = 7792-5) Present A Lab Interpretation (test code = 82776-8) Abnormal [facility] CenteraPTT2024-[facility] 20:09:14* Test Item Value Reference Range Interpretation Comme nts APTT Patient (test code = 3173-2) 30 26-36 Lab Interpretation (test cod e = 68684-2) Normal [facility] CenterProthrombin Time / [id number] 20:09:14* Test Item Value Reference Range Interpretation Comme nts PROTIME PATIENT (test code = 5964-2) 23.6 10.1-12.6 H INR (test code = 6301-6) 2.2 Normal INR <1.1; Warfarin Therapeutic range 2.0 to 3.0 or 2.5 to 3.5, depending upon the indications. Lab Interpretation (test code = 78387-8) Abnormal [facility] CenteraPTT2024-09-08 20:09:14* Test Item Value Reference Range Interpretation Comme [facility] APTT Patient (test code = 3173-2) 30 26-36 Lab Interpretation (test cod e = 78091-5) Normal [facility] CenterProthrombin Time / [id number] 20:09:14* Test Item Value Reference Range Interpretation Comme [facility] PROTIME PATIENT (test code = 5964-2) 23.6 10.1-12.6 H INR (test code = 6301-6) 2.2 Normal INR <1.1; Warfarin Therapeutic range 2.0 to 3.0 or 2.5 to 3.5, depending upon the indications. Lab Interpretation (test code = 18522-3) Abnormal [facility] CenterHepatic Function Panel (43333) (ALB,T.PRO,BILI T,BU/BC,ALT,AST,ALK PHOS)2023-12-03 20:08:54* Test Item Value Reference Range Interpretation Comme [facility] TOTAL BILI (test code = 5373156206) 0.9 mg/dL 0.1-1.1 BILI UNCON (test code = 9898753477) 0.1 mg/dL 0.1-1.1 BILI CONJ (test code = 3654845430) 0.0 mg/dL 0.0-0.3 T PROTEIN (test code = 7665461302) 7.4 g/dL 6.3-8.2 ALBUMIN (test code = 4466516736) 3.1 g/dL 3.5-5.0 L ALK PHOS (test code = 3225745211) 141 U/L 34-122 H ALTv (test code = 1742-6) 14 U/L 5-35 AST(SGOT) (test code = 3378690688) 49 U/L 13-40 H Lab Interpretation (test cod e = 62841-1) Abnormal [facility] CenterBasic Metabolic Panel (NA, K, CL, CO2, GLUCOSE, BUN, CREATININE, CA)2023-12-03 20:08:54* Test Item Value Reference Range Interpretation Comme [facility] NA (test code = 0897235809) 134 mmol/L 135-145 L K (test code = 4187393881) 4.9 mmol/L 3.5-5.0 Slight hemolysis CL (test code = 9803873490) 103 mmol/L 98-108 CO2 TOTAL (test code = 8996739910) 21 mmol/L 23-31 L AGAP (test code = 2375190923) 10 2-16 BUN (test code = 0863650834) 28 mg/dL 7-23 H Slight hemolysis GLUCOSE (test code = 3422864507) 137 mg/dL 70-110 H CREATININE (test code = 2160-0) 0.96 mg/dL 0.50-1.04 CALCIUM (test code = 0932456424) 9.1 mg/dL 8.6-10.6 eGFR (test code = 37683-7) 61.8 mL/min/1.73m2 CKD-EPI eGFR (2020). Assuming creatinine has been stable day-to-day for at least three months, the eGFR indicates Category G2 (60 - 89 mL/min/1.73 m2) Lab Interpretation (test code = 62754-6) Abnormal [facility] CenterHep[facility] Function Panel (22266) (ALB,T.PRO,BILI T,BU/BC,ALT,AST,ALK PHOS)2023-12-03 20:08:54* Test Item Value Reference Range Interpretation Comme nts TOTAL BILI (test code = 9783216375) 0.9 mg/dL 0.1-1.1 BILI UNCON (test code = 8667304387) 0.1 mg/dL 0.1-1.1 BILI CONJ (test code = 1186265934) 0.0 mg/dL 0.0-0.3 T PROTEIN (test code = 2752347903) 7.4 g/dL 6.3-8.2 ALBUMIN (test code = 7202283663) 3.1 g/dL 3.5-5.0 L ALK PHOS (test code = 1194240402) 141 U/L 34-122 H ALTv (test code = 1742-6) 14 U/L 5-35 AST(SGOT) (test code = 6340782936) 49 U/L 13-40 H Lab Interpretation (test cod e = 58126-4) Abnormal [facility] (NA, K, CL, CO2, GLUCOSE, BUN, CREATININE, CA)2023-12-03 20:08:54* Test Item Value Reference Range Interpretation Comme nts NA (test code = 8899040073) 134 mmol/L 135-145 L K (test code = 4004872347) 4.9 mmol/L 3.5-5.0 Slight hemolysis CL (test code = 1776190171) 103 mmol/L 98-108 CO2 TOTAL (test code = 3206645842) 21 mmol/L 23-31 L AGAP (test code = 0874021456) 10 2-16 BUN (test code = 1573282611) 28 mg/dL 7-23 H Slight hemolysis GLUCOSE (test code = 6146724213) 137 mg/dL 70-110 H CREATININE (test code = 2160-0) 0.96 mg/dL 0.50-1.04 CALCIUM (test code = 5077553591) 9.1 mg/dL 8.6-10.6 eGFR (test code = 20876-6) 61.8 mL/min/1.73m2 CKD-EPI eGFR (2020). Assuming creatinine has been stable day-to-day for at least three months, the eGFR indicates Category G2 (60 - 89 mL/min/1.73 m2) Lab Interpretation (test code = 87065-5) Abnormal [facility] CenterFibrinogen2024-09-08 16:51:45* Test Item Value Reference Range Interpretation Comme [facility] Fibrinogen (test code = 1647660143) 949 mg/dL 167-453 H Lab Interpretation (test cod e = 89930-6) Abnormal [facility] CenterFibrinogen2024-09-08 16:51:45* Test Item Value Reference Range Interpretation Comme [facility] Fibrinogen (test code = 9449071826) 949 mg/dL 167-453 H Lab Interpretation (test cod e = 38036-0) Abnormal [facility] CenterActivated Partial Thrmplas Kqn0962-12-06 16:49:04* Test Item Value Reference Range Interpretation Comme nts APTT Patient (test code = 3173-2) 30 26-36 Lab Interpretation (test cod e = 55774-7) Normal [facility] CenterProthrombin Time / [id number] 16:49:04* Test Item Value Reference Range Interpretation Comme nts PROTIME PATIENT (test code = 5964-2) 23.7 10.1-12.6 H INR (test code = 6301-6) 2.2 Normal INR <1.1; Warfarin Therapeutic range 2.0 to 3.0 or 2.5 to 3.5, depending upon the indications. Lab Interpretation (test code = 27868-6) Abnormal [facility] CenterActivated Partial Thrmplas Ojy5887-60-88 16:49:04* Test Item Value Reference Range Interpretation Comme nts APTT Patient (test code = 3173-2) 30 26-36 Lab Interpretation (test cod e = 64265-5) Normal [facility] CenterProthrombin Time / [id number] 16:49:04* Test Item Value Reference Range Interpretation Comme nts PROTIME PATIENT (test code = 5964-2) 23.7 10.1-12.6 H INR (test code = 6301-6) 2.2 Normal INR <1.1; Warfarin Therapeutic range 2.0 to 3.0 or 2.5 to 3.5, depending upon the indications. Lab Interpretation (test code = 56364-2) Abnormal [facility] CenterType and Screen - ONCE NOOQ5718-00-82 12:41:00 * Test Item Value Reference Range Interpretation Comme nts ABO & RH (test code = 20) A POSITIVE IAT (test code = 1185) Negative [facility] CenterType and Screen - ONCE CELL2512-86-25 12:41:00 * Test Item Value Reference Range Interpretation Comme nts ABO & RH (test code = 20) A POSITIVE IAT (test code = 1185) Negative [facility] CenterLactic Acid Whole Fhbsy9045-46-05 08:18:44* Test Item Value Reference Range Interpretation Comme nts LACTIC ACID (test code = 3246979199) 1.53 mmol/L 0.50-2.20 Lab Interpretation (test cod e = 18180-8) Normal [facility] CenterLactic Acid Whole Bnvvo6952-37-37 08:18:44* Test Item Value Reference Range Interpretation Comme nts LACTIC ACID (test code = 7513138118) 1.53 mmol/L 0.50-2.20 Lab Interpretation (test cod e = 76459-0) Normal [facility] CenterTransthoracic echo (TTE) Pvatxvl7133-59-55 18:29:05* Test Item Value Reference Range Interpretation Comme nts Height (test code = 1741048449) 67 in Weight (test code = 2747879389) 379 lbs Systolic BP (test code = 9987281573) 160 mmHg Diastolic BP (test code = 3665731271) 66 mmHg Heart Rate (test code = 9315681879) 82 bpm LVOT stroke volume (test code = 2740766340) 58.40 cm3 EF(Teich) (test code = 1912796429) 69.80 % LVIDD (test code = 9247390217) 4.10 cm LVIDS (test code = 4927575539) 2.50 cm Left Ventricular End Systolic Volume by Teichholz Method (test code = 5077300) 23.0 mL Left Ventricular End Diastolic Volume by Teichholz Method (test code = 4824291) 76.0 mL IVS (test code = 9651676177) 1.20 cm LVPWD (test code = 1725746144) 1.17 cm LVOT diameter (test code = 2026650838) 1.91 cm LVOT area (test code = 2299501334) 2.90 cm2 FS (test code = 0324883808) 39 % MV Peak E Chapo (test code = 1578161043) 125.1 cm/s E wave decelartion time (test code = 7605834685) 0.23 s LA Volume Index (BP) (test code = 5665887517) 34.4 mL/m2 LA volume (BP) (test code = 7914238605) 91.4 mL LVOT peak chapo (test code = 9539338483) 123.3 cm/s LVOT mn grad (test code = 1128023163) 3.0 mmHg BSA (test code = 9373153806) 2.7 m2 LA size (test code = 7803273558) 5.1 cm LAV(MOD-sp2) (test code = 3574902232) 90.40 mL LAV(MOD-sp4) (test code = 0906658052) 88.80 mL Tapse (test code = 3812328643) 1.13 cm Ao peak chapo (test code = 5197823525) 157.5 cm/s AV LVOT peak gradient (test code = 0410693880) 6.1 mmHg LVOT peak VTI (test code = 3796023971) 20.5 cm AV area peak chapo (test code = 1599953296) 2.2 cm2 LV V1 mean (test code = 9474842528) 80.90 cm/s Ao max PG (test code = 0779878941) 9.90 mm[Hg] MV Prop V (test code = 8400359865) 62.20 cm/s TR Peak Chapo (test code = 1160651614) 287.8 cm/s Triscuspid Valve Regurgitation Peak Gradient (test code = 6481882820) 33.1 mmHg Ao root diam (test code = 1519258667) 3.10 cm AV peak gradient (test code = 7372958805) 9.9 mmHg Aortic root (test code = 1593246056) 3.1 cm Ao root annulus (test code = 2840010431) 3.1 cm PW (test code = 0365215005) 1.17 cm 0.6-1.1 EF - 2D (test code = 78692187) 69.80 % Interventricular Septum Diastolic Thickness by 2D (test code = 1560455) 1.20 cm Radiology Study observation (narrative) (test code = 74233-3) JESSICA (test code = JESSICA) ?Left?Ventricle: Left [...] 2 mL of Patient exhibited atrial fibrillation. [facility] RETROPERITONEAL JIUOVYJ1330-15-18 14:55:16 RETROPERITONEAL LIMITED 11/21/2023 6:15 AM HISTORY: bilateral ureterohydronephrosis . COMPARISON:None. Correlation CT abdomen dated 11/20/2023. FINDINGS: RIGHT KIDNEY: The renal length measures 12.7 cm. Normal cortical thicknessand echotexture. Mild hydronephrosis with AP diameter of the renal pel vismeasuring 1.5 cm. No mass or stone. LEFT KIDNEY: Not clearly assessed due to significant bowel gases.[facility] CenterPrepare Packed RBC (in units), 1 Tfmuh1461-97-84 11:09:04* Test Item Value Reference Range Interpretation Comme nts Cross Match Result (test code = 4409) Compatible ISBT Blood Type Code (test code = 656951) 6200 Unit Blood Type (test code = 4410) A Pos Unit Number (test code = 4411) [id number] Blood Expiration Date & Time (test code = 197980) [id number] Status Information (test code = 4412) Issued Product Identification (test code = 4413) Red Blood Cells Product Code (test code = 4414) [id number] Performed at [facility] B Laboratory Services - [facility] Blood [address] [place] [address]Xxnc Free: [phone] No. [id number] [facility] CenterLactic Acid Whole Ysxfm1357-61-14 04:23:24* Test Item Value Reference Range Interpretation Comme nts LACTIC ACID (test code = 4430975193) 1.38 mmol/L 0.50-2.20 Lab Interpretation (test cod e = 15135-7) Normal [facility] CenterReticulocytes Xrpruotfv7877-05-82 03:16:45* Test Item Value Reference Range Interpretation Comme nts RETIC Count Automated (test code = 6224694788) 1.32 % 0.51-1.90 RETIC Absolute Count (test c ode = 3761452381) 0.0478 0.0230-0.0950 IRF % (test code = 2140851631) 29.60 % 2.10-12.60 H RETIC-HE (test code = 2820658598) 25.1 pg 28.1-35.8 L Lab Interpretation (test cod e = 91937-3) Abnormal [facility] GLUCOSE (AUTOMATED)2023-11-21 01:30:47* Test Item Value Reference Range Interpretation Comme nts POCT GLU (test code = 1760897355) 129 mg/dL 70-110 H Lab Interpretation (test cod e = 66662-9) Abnormal [facility] GLUCOSE (AUTOMATED)2023-11-20 23:14:41* Test Item Value Reference Range Interpretation Comme nts POCT GLU (test code = 0531942583) 197 mg/dL 70-110 H Lab Interpretation (test cod e = 26846-6) Abnormal [facility] Glucose (AGE >30 DAYS) - Prior to Insulin Bolus Administration - See Onaldapa5742-72-86 21:25:00* Test Item Value Reference Range Interpretation Comme nts POCT Glu (age>30days) (test code = 3342) 109 mg/dL 70-110 Lab Interpretation (test cod e = 32664-3) Normal [facility] GLUCOSE (AUTOMATED)2023-11-20 21:21:42* Test Item Value Reference Range Interpretation Comme nts POCT GLU (test code = 3515310124) 109 mg/dL 70-110 Lab Interpretation (test cod e = 45737-8) [facility] ABDOMEN PELVIS WO GRYEHNUP0938-65-78 20:39:17ORDERING PHYSICIAN: PABLO CHINCHILLA HISTORY: Peritonitis or [...] atheroscleroticcalcifications. No lymphadenopathy. Bones: No acute abnormality. [facility] with Ondb1112-72-24 18:35:31* Test Item Value Reference Range Interpretation [...] g/dL 31.6-35.1 L RDW-SD (test code = 17688-1) 55.5 fL 39.0-49.9 H RDW-CV (test code = 788-0) 20.8 % 12.0-15.5 H PLT (test code = 777-3) 410 166-358 H MPV (test code = 54547-9) 9.6 fL 9.5-12.9 NRBC/100 WBC (test code = 1237276023) 0.0 0.0-10.0 NRBC x10^3 (test code = 6524067565) See_Comment [Automated message] The system which generated this result transmitted reference range: 10*3/?L. The reference range was not used to interpret this result as normal/abnormal. GRAN MAT (NEUT) % (test code = 770-8) 87.7 % IMM GRAN % (test code = 4622789591) 1.10 % LYMPH % (test code = 736-9) 6.3 % MONO % (test code = 5905-5) 4.1 % EOS % (test code = 713-8) 0.4 % BASO % (test code = 706-2) 0.4 % GRAN MAT x10^3(ANC) (test code = 0028273380) 17.31 10*3/uL 1.88-7.09 H IMM GRAN x10^3 (test code = 8605000177) 0.22 10*3/uL 0.00-0.06 H LYMPH x10^3 (test code = 731-0) 1.24 10*3/uL 1.32-3.29 L MONO x10^3 (test code = 742-7) 0.81 10*3/uL 0.33-0.92 EOS x10^3 (test code = 711-2) 0.07 10*3/uL 0.03-0.39 BASO x10^3 (test code = 704-7) 0.07 10*3/uL 0.01-0.07 ELLIPTO/OVAL (test code = 39009-6) 2+ See_Comment A [Automated message] The system which generated this result transmitted reference range: (none). The reference range was not used to interpret this result as normal/abnormal. SPHEROCYTES (test code = 802-9) 1+ A BANDS (test code = 8144869136) Increased A TOXIC CHANGES (test code = 803-7) Present A Lab Interpretation (test code = 33638-0) [id number] 17:22:29* Test Item Value Reference Range Interpretation Comme nts LACTIC ACID (test code = 4484992281) 2.98 mmol/L 0.50-2.20 H Lab Interpretation (test cod e = 98561-8) Abnormal [facility] Consult Notes Date/Time Note Provider Source 2024-01-09 [...] lives with their spouse and in a sMedio story house, Ramp access DME: Wheel Chair [...] in some pain reduction COMMUNICATION Primary Language: Syriac Able to Verbalize needs: Yes Vision:reading glasses [...] Minutes: 30 min Isrrael Hutchison PT, DPT [facility] Rehabilitation Services A physical therapy evaluation [...] clinical presentation with unstable and unpredictable characteristics [facility] 2024-01-09 10:00:00 Associated Order(s): CONSULT VASCULAR ACCESS Vascular Access Services VAS was consulted for midline insertion. Consult has been acknowledged, and the patient's medical chart has been reviewed. Please see procedural note. [facility] 2024-01-09 08:20:00 Associated Order(s): CONSULT ADULT OCCUPATIONAL THERAPY OT GENERAL EVALUATION Consult received via Blockchain, EMR reviewed and evaluation completed 01/09/24. Patient [...] limited to 1/4 range UE Strength: hand pigment making supervisor GARCIA is 3+/5 Hand dominance: right Dexterity/Coordination: [...] to read and needs reinforcement of teaching. Sheryl Rocha. [phone] [facility]. Total Timed Treatment Codes: 25 Min [...] to complete evaluation component. Kelly Hartley OT [facility] 2024-01-08 08:41:23 Associated Order(s): CONSULT SOLAR INSTALLER TECHNICIAN-ADULT Care Management Note 01/08/24 3:40 PM Patient's Desiree # [phone] said they would like to proceed with submitting referral to [facility]. Attempted to choice patient but they were not in the room (gone to CT). I told patient's Desiree # [phone] that I would be back first thing [...] PM I reached out to Ally # [phone] with [facility] asking if they are in-network for patients insurance. She said they are. I let the patient's Desiree # [phone] know and he said he was going to tour [facility] ([address] [place] [address], [place], P: [phone]; ) SNF and let me know if they would like to move forward with them. 01/08/24 12:43 PM Patient was asleep when I entered the room. Khanh/Aram # [phone] said that the plan is to look [...] and potential placement. Hammad Longoria RN, BSN Fisheries Biologist - [email or web address] [phone] [facility] 2023-12-20 09:46:00 Associated Order(s): CONSULT PHYSICAL [...] Liliana Veronica PT, DPT Liliana Veronica PT [facility] 2023-12-18 11:00:00 Associated Order(s): CONSULT VASCULAR ACCESS Vascular Access Services VAS was consulted for midline insertion. Per nursing the current midline is functioning properly without any complications. No need for new midline at this moment. [facility] 2023-12-15 17:42:57 Associated Order(s): CONSULT WOUND, OSTOMY, OR CONTINENCE CARE TEAM Q 6 hour dressing changes are not WOCN orders but instead bedside RN orders. Dr Garner made aware. Antoinette Abbott RN 12/15/2023 5:44 PM Antoinette Abbott RN [facility] 2023-12-14 08:59:14 Summary: WOCN- WTA Follow up Attempted to see pt this AM pt is currently sleeping . Per 1:1 sitter pt confused and agitated this AM. Pt currently in restraints. NO family at bedside, sitter provided with phone number and requested a message when family is present for education. Antoinette Abbott MSN, RN-BC, WTA 1005- Spoke with the patients granddaughter @ bedside, she stated she has experience with ostomy care. Educational material provided to the granddaughter. Patient is confused and agitated t this time. Granddaughter is to be sole caregiver if patient discharges home. Granddaughter allowed to ask any questions. All questions asked were answered. Antoinette PADILLA, RN-BC, WTA [facility] 2023-12-12 16:01:40 Associated Order(s): CONSULT CARDIOLOGY See cardio note from today. Cardio previously consulted this admission. Associated attestation - Lencho Daugherty MD - 12/12/2023 4:15 PM CDT [facility] 2023-12-12 08:58:40 Associated Order(s): CONSULT HEMATOLOGY [...] be removed in outpatient setting. Presented to [facility] on 12/03/2023 with AMS and hollow [...] fluticasone propionate 50 mcg/actuation nasal spray 1 [place], 1 [place], Nasal, BID, Donna Garner MD, 1 [place] at 12/11/23 0840 pantoprazole (PROTONIX) EC tablet 40 mg, 40 mg, Oral, DAILY, Sukhwinder Almodovar MD, 40 mg at 12/11/23 0839 sodium chloride (OCEAN MIST NASAL) 0.65 % nasal spray 1 [place], 1 [place], Nasal, BID, Donna Garner MD, 1 [place] at 12/11/23 0840 Lidocaine (LIDOCARE) 4 % [...] hypochlorite 0.25% (DAKIN'S SOLUTION) solution, , Topical, QAPascual Stevens Taruni, MD, Given by Provider at 12/11/23 0600 chlorhexidine (PERIDEX) 0.12 % mouthwash 15 mL, 15 mL, Oral (Swish And Spit Out), BID, AuroraYoni MD, 15 mL at 12/11/23 0839 naloxone [...] resident's note for additional details. INTERNAL MEDICINE [facility] 2023-12-11 16:00:00 Associated Order(s): CONSULT VASCULAR ACCESS Vascular Access Services VAS was consulted for midline insertion. Consult has been acknowledged, and the patient's medical chart has been reviewed. Please see procedural note. [facility] 2023-12-10 11:16:00 Associated Order(s): CONSULT ADULT PHYSICAL THERAPY PT Note Duplicate Consult. PT will continue to follow. Donny Montana PT, DPT Rehabilitation Services [facility] 2023-12-10 11:07:00 Associated Order(s): CONSULT ADULT OCCUPATIONAL THERAPY 12/11/2023 OCCUPATIONAL THERAPY NOTE: Duplicate consult. Maryjane Hernandez, OTR License #[id number] Maryjane Hernandez OT [facility] 2023-12-07 09:32:00 Associated Order(s): CONSULT ADULT OCCUPATIONAL THERAPY OT GENERAL EVALUATION Consult received via Blockchain, EMR reviewed and evaluation completed 12/07/23. Patient [...] bilateral AROM WFL UE Strength: GARCIA hand pigment making supervisor 4/5 Hand dominance: right Dexterity/Coordination: bilateral Gross [...] of skill. Muna Price, OTR, OTD Pager: [phone] Total Timed Treatment Codes: 23 Min Total [...] to enable patient to complete evaluation component. [facility] 2023-12-07 09:30:00 Associated Order(s): CONSULT ADULT [...] N/A 12/03/2023 Surgeon: Taylor Segundo MD; Location: [facility] LO FECAL DISIMPACTION N/A 12/03/2023 [...] was unable to rate. COMMUNICATION Primary Language: Syriac Able to Verbalize needs: Yes Vision:good; no [...] encounter dated 12/07/23. Angus Romero, PT, DPT [facility] Physical Therapy Rehabilitation Services A physical therapy [...] clinical presentation with unstable and unpredictable characteristics [facility] 2023-12-05 14:51:43 Associated Order(s): CONSULT NEPHROLOGY NEPHROLOGY CONSULT NOTE Consultation requested by: Service: Trauma ICU Reason for Consultation: NAOMY Date of Service: 12/05/2023 History of Present Illness: Zarina Grier is a 73 year old female with PMHx of afib, morbid obesity, and constipation transferred from [facility] for altered mental status and found [...] pulmonary process. END REPORT RL: 460 AFC: [id number] CHEST 1 VW Result Date: 12/05/2023 Impression: Endotracheal tube terminates 5.1 cm above the sera. Right internal jugular central venous catheter terminates in the right atrium, approximately 4 cm below the level of the cavoatrial junction. Stable moderate cardiomegaly without acute pulmonary process. END REPORT RL: [id number] AFC: [id number] KUB Result Date: 12/04/2023 FINDINGS/IMPRESSION: Enteric tube with tip projecting over the distal esophagus. Further advancement recommended. Residual contrast is seen within the bilateral pyelocalyceal system. Lower abdominal not included within the wjxdl-co-dgiw. [id number] dated 12/04/2023 at 2:39. FINDINGS/IMPRESSION: Enteric tube seen in similar position, projecting over distal esophagus. Advancement recommended. [id number] dated 12/04/2023 at 2:40. FINDINGS/IMPRESSION: Unchanged position [...] system. Lower abdominal not included within the iksjb-fg-itnc. [id number] dated 12/04/2023 at 2:39. FINDINGS/IMPRESSION: Enteric tube seen in similar position, projecting over distal esophagus. Advancement recommended. [id number] dated 12/04/2023 at 2:40. FINDINGS/IMPRESSION: Unchanged position [...] system. Lower abdominal not included within the vmyoi-yi-qovh. [id number] dated 12/04/2023 at 2:39. FINDINGS/IMPRESSION: Enteric tube seen in similar position, projecting over distal esophagus. Advancement recommended. [id number] dated 12/04/2023 at 2:40. FINDINGS/IMPRESSION: Unchanged position of enteric tube, projecting over the distal esophagus. Further advancement of at least 10 cm recommended. Ric Jansen MD., have reviewed this study and agree with the above report. XR CHEST 1 VW Result Date: 12/04/2023 No pneumothorax. Satisfactory position of ET tube. Improved interstitial pulmonary edema. Preliminary Report Dictated by Resident: Efe Oconnor I, Larissa Nesbitt MD., have reviewed this study and agree [...] Jaquez MD Nephrology and Hypertension Fellow Pager: [phone] Associated attestation - Eben Huitron MD - [...] the medical care provided. Eben Huitron MD [facility] Division of Nephrology & Hypertension NEPHROLOGY [facility] 2023-12-04 16:12:00 Associated Order(s): CONSULT WOUND, OSTOMY, OR CONTINENCE CARE TEAM [facility] Nurse Note Consult for post op [...] appropriate. Michelle Alas RN 12/04/2023 4:20 PM [facility] 2023-12-04 13:48:31 Associated Order(s): CONSULT UROLOGY [...] N/A 12/03/2023 Surgeon: Taylor Segundo MD; Location: [facility] OR LOCATION TUBAL LIGATION No family history [...] and digital vaginal exam preformed with nurse dinkey engine operator after obtaining consent from daughter. Digital [...] Theodore MD Urology Resident Pager: please page databases computer consultant using [employer] Associated attestation - Pablo Light MD - 12/09/2023 12:08 PM CDT I discussed the patient with Dr. Theodore, and agree with his assessment and plan. I participated in the decision making process. UROLOGY [facility] 2023-12-04 10:44:56 Associated Order(s): CONSULT CARDIOLOGY Cardiology Consult Note Date of Service: 12/04/2023 13:09 Reason for consult: Give recs on patient with afib RVR History of Present Illness: Zarina Grier is a 73 year old female with PMHx of afib, morbid obesity, and constipation transferred from [facility] for altered mental status and found [...] this time. She does not see a fur repairer regularly. ROS: Per HPI Past Medical History: Diagnosis Date Paroxysmal atrial fibrillation Scoliosis Past Surgical History: Procedure Laterality Date BOWEL RESECTION N/A 12/03/2023 Surgeon: Taylor Segundo MD; Location: [facility] OR LOCATION SECTION 1985 EXPLORATORY LAPAROTOMY [...] and management service. Steven Mancia MD, SHANNON Clinical Review Specialist, PGY 4 Associated attestation - [place] [...] need a 30-day event monitor on discharge. [facility] 2023-12-03 13:50:00 BRIEF INTERVENTIONAL RADIOLOGY CONSULT [...] the resident's note. VASCULAR & INTERVENTIONAL RADIOLOGY [facility] 2023-11-22 10:15:00 Associated Order(s): CONSULT ADULT [...] reduction, and Repositioning Provided COMMUNICATION Primary Language: Syriac Able to Verbalize needs: Yes Vision:glasses Hearing:good; [...] min Santhosh Mustafa PT Santhosh Mustafa PT [facility] 2023-11-21 15:30:00 Associated Order(s): CONSULT ADULT OCCUPATIONAL THERAPY OT GENERAL EVALUATION Consult received via Blockchain, EMR reviewed and evaluation completed 11/21/23. Patient [...] commode, Tub transfer bench, and Long handled bacteriologist dairy PLAN OF CARE: At least 2x/week Precautions: [...] verbalizes understanding of teaching provided. UVALDO Howell, MOT Total Timed Treatment Codes: 15 Min Total [...] enable patient to complete evaluation component. T [facility] - Health History and Physical Notes [...] doctor. The patient agreed and went to [facility] where she was transferred to [facility] for further evaluation. She denies nausea, vomiting, fevers, chills. Past Surgical History: Procedure Laterality Date BOWEL RESECTION N/A 12/03/2023 Surgeon: Taylor Segundo MD; Location: [facility] LOCATION SECTION 1985 EXPLORATORY LAPAROTOMY N/A 12/03/2023 Surgeon: Taylor Segundo MD; Location: [facility] LOCATION FECAL DISIMPACTION N/A 12/03/2023 Surgeon: Taylor Segundo MD; Location: [facility] OR LOCATION TUBAL LIGATION PHYSICAL EXAM Vitals: [...] - Restart home meds Shira Victoria MD [facility] General Surgery 01/06/2024 6:51 PM Attending [...] limited by social determinants of health CPT: 64146 - Admit/Obs Moderate (at least two of problems, amount of data, and risk of complications are moderate) [facility] 2023-12-03 03:09:54 ACS SURGERY H&P Date of Service: 12/03/2023 Chief Complaint: hollow viscus perforation HPI Zarina Grier is a 73 year old female history of afib, morbid obesity, constipation who presents as transfer from [facility] for altered mental status, found to [...] procedures): 150 min Taylor Segundo MD, PhD Compensation Administrator Trauma, Acute Care Surgery, and Surgical Critical Care In-house Pager: [phone] [facility] 2023-11-20 17:50:40 ARNOLD TEAM ADMIT H&P DATE OF SERVICE: 11/20/2023 PCP: PATIENT DOES NOT HAVE A PCP CHIEF COMPLAINT: abdominal pain HISTORY OF PRESENT ILLNESS: Zarina Grier is a 73 year old female with PMH of scoliosis who presents as a transfer from [facility] for abdominal pain. Patient initially presented to the [facility] ED with daughter due to [...] hallucinations at this time. Daughter (Luanne Grier; [phone]) was contacted to elicit further history. Daughter [...] details. Juni Nagy MD Division of Internal Blood Bank TechnicianCompensation Administrator [facility] Procedure Notes Date/Time Note Provider Source 2024-01-09 11:30:00 Vascular Access Services A bedside timeout was conducted before procedure with Anya Leal RN. An ultrasound guided, 3fr 15 cm. MIDLINE was then placed in the left basilic vein, in 1 attempt(s). Local anesthetic was used. Labs were obtained. REF#: [id number] Lot #: [id number] Exp: 07/24/2024 Kaushik Sherman RN [facility] 2023-12-11 17:00:00 Vascular Access Services A bedside timeout was conducted before procedure with Hailey Carvalho RN. An ultrasound guided, 4fr 10cm. MIDLINE was then placed in the left cephalic vein, in 1 attempt(s). Local anesthetic was not used. Labs were not obtained. REF#: [id number] Lot #: [id number] Exp: 05/24/2025 Kaushik Sherman RN [facility] 2023-12-04 20:16:40 Procedure(s): ARTERIAL LINE ARTERIAL [...] Elkins MD Trauma and Acute Care Surgery [facility] SURGERY [facility] 2023-12-04 19:58:12 Procedure(s): CENTRAL LINE CENTRAL [...] Trauma and Acute Care Surgery Faculty SURGERY [facility] 2023-12-03 20:43:59 Associated Order(s): Arterial Line [...] accounted for Comments: Tegaderm CHG applied. AN-ANESTHESIOLOGY [facility] 2023-12-03 20:41:41 Associated Order(s): Intubation Intubation Date/Time: 12/03/2023 7:57 PM Urgency: elective Airway not difficult General Information and Staff Patient location during procedure: OR Performed: resident/STORAGE WHARFAGE CLERK Performed by: Stan Izquierdo MD Authorized by: [...] gums, teeth, and nose unchanged vs. preop. [facility] Notes Date/Time Note Provider Source 2024-02-06 13:37:49 Pt appt was on 01/29. The appt was canceled. Will close this encounter. ING REEL ASSEMBLER Na Lentz RN [facility] 2024-01-26 09:15:00 Zarina Jacobo is a 73 year old female Patient daughter requesting call back to see if patient will be able to be seen in [place] due to transportation. Please contact patient daughter. Amina Lozano [facility] 2024-01-23 12:46:00 Zarina Jacobo is a 73 year old female, patient daughter calling again to see about getting her follow-up appointment moved to [place]. States there is just no way she can get her to [place]. Caller was advised that typically follow-up is only done by the team that did the surgery. Please call to advise, initial encounter from last week has not been responded to. Serenity Morin [facility] 2024-01-17 14:30:47 Zarina Jacobo Pts daughter [...] she can have her post op in [place] instead of [place]. Please contact pts daughter and advise. DOS: 01/05 NOV: 01/29 (home) Vicky Carmichael [facility] 2024-01-16 15:38:21 TRANSITIONAL CARE MANAGEMENT ASSESSMENT 01/16/2024 Zarina Jacobo [id number] Zarina Jacobo is a 73 year old /White female was admitted on 01/06/[address] She was discharged on 01/14/24 with discharge disposition of HR- Routine Discharge. Admitting Physician: Isrrael Galindo Discharge Diagnosis: Wound infection No linked episodes TCM Bhx-ctha-ly-face outreach documentation: CM made follow up call to patient post-discharge. No answer and call went to voicemail. Two attempts made to reach patient. Discharge Assessment Chart Assessed: 01/16/24 TCM Outreach Completed: 01/16/24 Future Appointments: Cinthya Andrade RN [facility] 2024-01-16 11:27:15 CM made follow up call to patient post-discharge. CM left a message with pt's dye house supervisor and call back number. [facility] 2024-01-14 10:22:47 Problem: Falls, Risk of [...] Outcome: Progressing as expected Ally Zuñiga RN [facility] 2024-01-14 01:02:27 Problem: Falls, Risk of [...] maximum mobility level Outcome: Progressing as expected Chary Lozano RN [facility] 2024-01-13 09:05:20 Problem: Falls, Risk of [...] level Outcome: Progressing as expected Leal RN [facility] 2024-01-13 00:28:52 Problem: Falls, Risk of [...] maximum mobility level Outcome: Progressing as expected [facility] 2024-01-12 17:51:10 Problem: Falls, Risk of [...] Outcome: Progressing as expected Karen Newby RN [facility] 2024-01-12 00:13:23 Problem: Falls, Risk of [...] maximum mobility level Outcome: Progressing as expected [facility] 2024-01-11 18:13:59 Problem: Falls, Risk of Goal: [...] maximum mobility level Outcome: Progressing as expected [facility] 2024-01-11 04:08:35 Problem: Falls, Risk of Goal: [...] Return to baseline elimination pattern Outcome: Resolved [facility] 2024-01-10 09:00:17 Problem: Falls, Risk of Goal: [...] elimination pattern Outcome: Progressing as expected T [facility] 2024-01-10 05:18:17 Patient bladder scanned, >999ml in [...] turn me, leave me alone." MD notified. [facility] Stephanie Chong RN [facility] [employer] 2024-01-10 02:51:37 Problem: Falls, Risk of Goal: [...] baseline elimination pattern Outcome: Progressing as expected [facility] 2024-01-09 22:49:00 Patient bladder scanned >999ml. Dr. [...] urine output, instructed to continue to monitor. [facility] 2024-01-09 08:01:02 Problem: Falls, Risk of Goal: Absence of falls Outcome: Progressing as expected Problem: Infection Risk Goal: Absence of infection Outcome: Progressing as expected Problem: Pain Goal: Control of pain at or below patient's documented comfort goal Outcome: Progressing as expected Problem: Skin integrity Impaired (Risk or Actual) Goal: Wound healing Outcome: Progressing as expected [facility] 2024-01-09 02:25:03 Problem: Falls, Risk of Goal: [...] new skin breakdown Outcome: Progressing as expected [facility] 2024-01-08 19:30:00 Pt lying in bed,awake,and refusing [...] is also refusing CT scan. MD notified. [facility] Pablo Slaughter RN [facility] 2024-01-08 10:57:40 Problem: Falls, Risk of [...] new skin breakdown Outcome: Progressing as expected [facility] 2024-01-08 04:56:21 Problem: Falls, Risk of Goal: [...] new skin breakdown Outcome: Progressing as expected [facility] 2024-01-07 16:21:15 Problem: Falls, Risk of Goal: [...] Outcome: Progressing as expected Brooklyn Colorado RN [facility] 2024-01-06 18:30:00 Patient arrived to the unit in 1115 by EMS stretcher from [facility] in [place], [place]. No family at bedside. Patient was [...] cleaned and new dressing applied per MD. [facility] 2024-01-01 15:06:39 TRANSITIONAL CARE MANAGEMENT ASSESSMENT 01/01/2024 Zarina Grier [id number] Zarina Grier is a 73 year old /White female was admitted on 12/03/[address] She was discharged on 12/29/23 with discharge disposition of HR- Routine Discharge. Admitting Physician: Jr Saravia Discharge Diagnosis: K63.1 Colon perforation (primary encounter diagnosis) R10.9 Abdominal pain, unspecified abdominal location I48.20 Chronic atrial fibrillation No linked episodes TCM Wzr-eybq-ra-face outreach documentation: CM made follow up call to patient post-discharge. No answer and call went to voicemail. CM left a discreet message with purpose of call and CM's call back information. Two attempts made to reach patient. Future Appointments: Cinthya Andrade RN [facility] 2024-01-01 09:44:56 CM made follow up call to patient post-discharge. No answer and call went to voicemail. CM was unable to leave a voicemail or there was no option to leave a voicemail. [facility] 2023-12-28 17:44:58 Problem: Falls, Risk of [...] Outcome: Progressing as expected Nel Pierce RN [facility] 2023-12-27 17:05:09 At 1400 I removed [...] ready to go home. Mimi Zuñiga RN [facility] 2023-12-27 10:08:12 Problem: Falls, Risk of [...] of restraint-related injury Outcome: Progressing as expected [facility] 2023-12-26 20:40:27 Problem: Falls, Risk of Goal: Absence of falls Outcome: Progressing as expected Problem: Infection Risk Goal: Absence of infection Outcome: Progressing as expected Problem: Skin integrity Impaired (Risk or Actual) Goal: Wound healing Outcome: Progressing as expected Thomas Andre RN [facility] 2023-12-26 09:38:50 Problem: Falls, Risk of [...] of restraint-related injury Outcome: Progressing as expected [facility] 2023-12-25 10:38:46 Problem: Falls, Risk of Goal: Absence of falls Outcome: Progressing as expected [facility] Hailey Carvalho RN [facility] 2023-12-25 00:32:57 Problem: Falls, Risk of [...] of cognitive ability Outcome: Progressing as expected [facility] 2023-12-24 00:56:29 Problem: Falls, Risk of Goal: [...] of cognitive ability Outcome: Progressing as expected [facility] 2023-12-23 18:14:24 Problem: Falls, Risk of Goal: [...] of restraint-related injury Outcome: Progressing as expected [facility] 2023-12-23 18:00:00 Problem: Falls, Risk of Goal: [...] RN Outcome: Progressing as expected 12/23/20231813 by Currington, Nel L, RN Outcome: Progressing as expected Goal: Adequate oxygenation 12/23/2023 2006 by Nel Pierce RN Outcome: Progressing as expected 12/23/2023 181 by Nel Pierce RN Outcome: Progressing as expected Goal: Adequate work of breathing 12/23/2023 2006 by Nel Pierce RN Outcome: [...] Nel Pierce RN Outcome: Progressing as expected [facility] 2023-12-22 23:21:44 Problem: Falls, Risk [...] Jarek Butt RN Outcome: Progressing as expected T [facility] 2023-12-22 15:59:01 Problem: Falls, Risk of [...] Outcome: Progressing as expected 12/22/2023 155 by Currington, Nel L, RN Outcome: Progressing as expected Goal: Reduction in pain sensation 12/22/2023 1556 by Nel Pierce RN Outcome: Progressing as expected 12/22/2023 1554 by Nel Pierce RN Outcome: Progressing as expected Problem: Skin integrity Impaired (Risk or Actual) Goal: Wound healing 12/22/2023 1556 by Nel Pierce, RN Outcome: Progressing as expected 12/22/2023 1554 by Nel Pierce, RN Outcome: Progressing as expected Goal: Prevention of new skin breakdown 12/22/2023 1556 by Nle Pierce RN Outcome: Progressing as expected 12/22/2023 1554 by Nel Pierce RN Outcome: Progressing as expected Problem: Respiratory Function - Impaired Goal: Able to cough effectively 12/22/2023 1556 by Nel Piecre RN Outcome: Progressing as expected 12/22/2023 1554 [...] of cognitive ability 12/22/2023 1556 by Nel Pierce, RN Outcome: [...] Nel Pierce RN Outcome: Progressing as expected T [facility] 2023-12-21 11:59:03 Problem: Falls, Risk of Goal: [...] of restraint-related injury Outcome: Progressing as expected [facility] 2023-12-21 04:33:41 Patient refused morning labs. David BROOKS to notify. [facility] Sylvia Riley RN [facility] 2023-12-21 00:49:48 Pt continues to refuse: [...] do not have order for suicide precautions. magneto repairer remains at bedside. Room not set up for SI precautions d/t questionable need and lack of order. MD returned call and stated that primary team would not be coming to bedside to assess and that psych would be consulted to assess patient for any concerns in the morning. magneto repairer remains at bedside and area within patients reach has been cleared of items that could cause harm. [facility] 2023-12-21 00:39:08 Problem: Falls, Risk of [...] of restraint-related injury Outcome: Progressing as expected [facility] 2023-12-20 11:33:30 Patient is still refusing to [...] on her later. The sitter is bedside. [facility] 2023-12-20 10:09:09 Problem: Falls, Risk of Goal: Absence of falls 12/20/20231008 by Mimi Zuñiga RN Outcome: Progressing as [...] Outcome: Progressing as expected 12/20/2023 100 by iMmi Zuñiga RN Outcome: Progressing as expected Goal: [...] Mimi Zuñiga RN Outcome: Progressing as expected [facility] 2023-12-20 02:35:45 Problem: Falls, Risk of [...] Progressing as expected T Pablo Slaughter RN [facility] 2023-12-19 12:56:35 Problem: Falls, Risk of [...] is refusing care. T Danika Arredondo RN [facility] 2023-12-18 17:09:00 Pt is refusing to [...] too so she left and went home. [facility] 2023-12-18 17:06:08 Problem: Falls, Risk of [...] of restraint-related injury Outcome: Progressing as expected [facility] 2023-12-17 22:01:46 Problem: Falls, Risk of Goal: [...] of restraint-related injury Outcome: Progressing as expected [facility] 2023-12-17 21:00:00 R'cd pt semi-fowlers in [...] any change in condition. Jarek Butt RN [facility] 2023-12-17 19:12:34 Problem: Falls, Risk of [...] Outcome: Progressing as expected Brooklyn Colorado RN [facility] 2023-12-17 05:34:28 Spoke to Surgery residents about either arranging a sitter for the patient or obtaining n order for video monitoring as RN is concerned about the patient pulling out her midline. They will discuss this with the morning team and place necessary orders afterwards, Mac RN [facility] 2023-12-17 01:01:48 RN offered to change dressing twice for her wounds, pt refused each time stating she doesn't want it to done tonight. Will attempt to change it again, All wounds dressing changed, colostomy bag replaced. [facility] 2023-12-17 01:00:04 Problem: Falls, Risk of [...] restraint-related injury Outcome: [facility]ing as expected [facility] 13:35:59 Problem: Falls, Risk of Goal: [...] of cognitive ability Outcome: Progressing as expected [facility] 2023-12-16 07:21:15 Unsuccessful attempt X 2 to insert PIV d/t poor venous return site areas. MD aware of PIV need. [facility] 2023-12-16 00:47:51 Problem: Falls, Risk of Goal: [...] of restraint-related injury Outcome: Progressing as expected [facility] 2023-12-15 18:43:00 Primary nurse performed dressing change to LLQ abdominal surgical incision with Dakins solution, kerlex, abdominal pad, and foam tape. [facility] Ginette Pang RN [facility] 2023-12-15 11:27:55 Problem: Falls, Risk of [...] of restraint-related injury Outcome: Progressing as expected [facility] 2023-12-15 02:44:13 Problem: Falls, Risk of Goal: [...] cognitive ability Outcome: Progressing as expected [facility] 2023-12-15 01:32:08 0130-Trauma returning page by Beckie [...] place a new line." Chary Lozano RN [facility] 2023-12-14 12:42:01 HEMATOLOGY & ONCOLOGY BRIEF [...] Adrian Tavares MD PGY6 - Heme/Onc Fellow [facility] Dept of Hematology and Oncology HEMATOLOGY & ONCOLOGY [facility] 2023-12-14 08:55:09 Problem: Falls, Risk of [...] Outcome: Progressing as expected Dayday Leal RN [facility] 2023-12-14 02:21:17 Problem: Falls, Risk of [...] Outcome: Progressing as expected Stephanie Cortes RN [facility] 2023-12-13 11:44:13 Problem: Falls, Risk of [...] of cognitive ability Outcome: Progressing as expected [facility] 2023-12-13 06:04:16 Problem: Falls, Risk of [...] Outcome: Progressing as expected Obdulia Matt RN [facility] 2023-12-12 13:12:46 This query is intended [...] Schultz DO Emergency Medicine PGY-1 12/12/2023 13:17 [facility] 2023-12-12 05:19:58 Problem: Falls, Risk of [...] Outcome: Progressing as expected [facility] 2023-12-11 06:49:01 Problem: Falls, Risk of Goal: [...] Patent airway Outcome: Progressing as expected T Miguel Monge RN [facility] 2023-12-10 08:37:18 Problem: Falls, Risk of [...] Outcome: Progressing as expected Scarlet Gaines RN [facility] 2023-12-09 23:28:17 Problem: Falls, Risk of [...] Outcome: Progressing as expected Maurisio Marie RN [facility] 2023-12-09 00:49:44 Problem: Falls, Risk of [...] Outcome: Progressing as expected Peggy Greenwood RN [facility] 2023-12-07 04:39:06 Problem: Falls, Risk of [...] Outcome: Progressing as expected Magui Mccray RN [facility] 2023-12-06 07:43:45 Problem: Falls, Risk of [...] Patent airway Outcome: Progressing as expected [facility] Alexandria Barboza RN [facility] 2023-12-06 06:07:51 Problem: Falls, Risk of [...] Goal: Patent airway Outcome: Progressing as expected [facility] 2023-12-05 09:54:55 Problem: Falls, Risk of Goal: [...] Goal: Patent airway Outcome: Progressing as expected [facility] 2023-12-04 09:24:35 Problem: Falls, Risk of [...] Outcome: Progressing as expected Génesis Giles RN [facility] 2023-12-04 03:43:42 Addendum created 12/04/23 0343 by Stan Izquierdo MD Intraprocedure Meds edited AN-ANESTHESIOLOGY [facility] 2023-12-04 03:21:10 Patient: Zarina Grier Procedure Summary Date: 12/03/23 Room / [facility]: [address] [facility] Anesthesia Start: 1946 Anesthesia Stop: 12/04/23 0211 [...] and ventilator Hydration status: acceptable AN-ANESTHESIOLOGY ANESTHESIOLOGIST [facility] 2023-12-04 00:20:27 Daughter at bedside updated Tiffany Monique RN [facility] 2023-12-03 21:53:09 FULL OPERATIVE NOTE Date [...] Care Surgery, Trauma, and Surgical Critical Care [facility] 2023-12-03 19:24:42 Name/ MRN / Age / Gender: Zarina Grier, [id number] 73 year old female BMI: Estimated body [...] (physical exam) Anesthesia Preop: Chart Review and [id number] [facility] Communication: Zarina Grier is a 73 year old female history of afib, morbid obesity, constipation who presents as transfer from [facility] for altered mental status, found to [...] Endocrine/other ROS Negative per Chart Review 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 Hold on DOS. Phentermine: Alert [facility] anesthesiologist SGLT2 Inhibitors: "gliflozins" to be held [...] & antiemetics Recovery Plan: ICU Additional comments: 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 Hold on DOS. Phentermine: Alert [facility] anesthesiologist SGLT2 Inhibitors: "gliflozins" to be held [...] Anesthesia Plan ASA Status: 4 emergent AN-ANESTHESIOLOGY [facility] 2023-12-03 03:31:57 Report given to Chris CALLE at this time. RN's discussed POC and further recommendations for care. Clifton Marcus RN [facility] 2023-12-03 03:24:56 Waiting for gen surg to leave to transport patient [facility] 2023-12-03 03:13:16 General surgery at bedside [facility] 2023-12-03 02:32:50 Zarina Grier is a [...] surgery at this time. Rafael Juarez RN [facility] 2023-12-03 02:28:50 Gen surgery at bedside for assessment, pt placed on monitor Plan of care is OR [facility] 2023-12-03 02:15:02 Zarina Grier is a 73 year old female who presents to see the general surgery team. Pt GCS 15, gen surgery paged at [phone], and are aware of pt's arrival. Raj Pastor RN [facility] 2023-11-28 10:10:51 Paged that patient requested refill on [place]. Refilled for 7 days but patient should follow-up in clinic for further refills. Ivan Rogers MD PGY-3, Internal Medicine T [facility] 2023-11-24 11:29:55 TRANSITIONAL CARE MANAGEMENT ASSESSMENT 11/24/2023 Zarina Grier [id number] Zarina Grier is a 73 year old /White female was admitted on 11/20/[address] She was discharged on 11/23/23 with discharge disposition of HR- Routine Discharge. Admitting Physician: Stefanie Johnson Discharge Diagnosis: NAOMY 2/2 obstructive uropathy Citrobacter UTI No linked episodes TCM [id number]-face outreach documentation: Discharge Assessment Chart Assessed: 11/24/23 [...] use the medical supplies/equipment?: Yes DME Location: [address] [address] () [phone] (F) [phone] DME Other: DME List: Satish Lift Follow [...] Yes Discharge Location: Home Health location: Other ([facility]) Other Home Health location: [facility] Survey - Recognition Is there anything you would like to share about your recent hospitalization, or anyone you would like to recognize?: No Do you have any suggestions for improvement?: No Do you have any other questions or concerns at this time?: No [facility] Daisy Nelson RN [facility] 2023-11-24 11:23:51 Dtr requesting a call to epi as reports she's currently working. [facility] 2023-11-23 14:44:31 Problem: Procedure Routine Goal: [...] Outcome: Progressing as expected Valerie Sood RN [facility] 2023-11-23 12:15:20 Problem: Procedure Routine Goal: [...] Absence of falls Outcome: Progressing as expected [facility] 2023-11-22 10:27:00 Problem: Procedure Routine Goal: [...] Outcome: Progressing as expected Stephanie Altamirano RN [facility] 2023-11-22 01:06:55 Problem: Procedure Routine Goal: [...] Outcome: Progressing as expected Pablo Burroughs RN [facility] 2023-11-21 10:42:33 Problem: Procedure Routine Goal: [...] of cognitive ability Outcome: Progressing as expected [facility] 2023-11-20 20:29:34 Problem: Procedure Routine Goal: Absence of post-procedure complications Outcome: Progressing as expected Goal: Knowledge of procedure Outcome: Progressing as expected Problem: Infection Risk Goal: Absence of infection Outcome: Progressing as expected Problem: Falls, Risk of Goal: Absence of falls Outcome: Progressing as expected Problem: Activity Intolerance Goal: Improved activity tolerance Outcome: Progressing as expected Thomas Andre RN [facility] 2023-11-20 19:00:19 Nurse Report Report given to LUC Matthews. Chief complaint, assessment findings, and orders reviewed. Plan of care discussed with both nurses. Patient/family members verbalized understanding for admission and transfer. Justina M Jordan, RN T Justina Jordan RN [facility] 2023-11-20 18:49:30 Patient admitted to [facility] for diagnosis of hyperkalemia, obstructive uropathy, NAOMY, anemia, constipation, atrial fibrillation, and abdominal pain. Patient agrees to admission, discussed plan of care with patient and family. Patient is awake, alert, oriented, resp reg unlabored, color appropriate for race, PIV intact with sodium bicarb No adverse reaction to medications administered while in ED Belongings with patient to unit. [facility] 2023-11-20 18:24:39 Report given to Terrell with [facility]. Requested to recheck BGL en route. [facility] 2023-11-20 11:09:54 Pt to ED accompanied by daughter CO delusions, confusion, abd pain, and malodorous urine for 2 weeks. Denies fever. Denies dysuria. [facility] 2023-11-20 11:02:00 [facility] Emergency Department Note Patient Name: Zarina Grier Date of : 1950 73 year old female Treatment Room: Room/bed info not found Primary Care Physician: No primary care provider on file. 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 METABOLIC PANEL (92879) - Abnormal NA 131 (*) 135 - [...] CONTRAST Cbc with Diff Comp. Metabolic Panel (67676) Troponin I Lipase Urinalysis Lactic Acid Whole [...] micromoles/L) AdmissionCare documentation entered by: Pablo Chinchilla [facility] [employer], 28 edition, Copyright ? 2023 [employer] All Rights Reserved. [id number]:18:34-05:00 ED COURSE Diagnosis/Impression as of 11/20/23 1701 Abdominal pain, unspecified abdominal location Hyperkalemia Obstructive uropathy NAOMY (acute kidney injury) Constipation, unspecified constipation type Anemia, unspecified type Atrial fibrillation with controlled ventricular rate Procedures: Procedures MDM: Medical Decision Making DDx incl UTI, sepsis, SBO, Colitis, appy, incarcerated hernia, PNA, ACS, dysrhythmia, et al Pt to be transferred d/t no beds at [facility] D/w pt and family to inform of going to [place] Amount and/or Complexity of Data Reviewed Labs: ordered. Radiology: ordered. Discussion of management or test interpretation with external provider(s): D/w [place] Admitting --> pt accepted for transfer Risk OTC drugs. Prescription drug management. Parenteral controlled substances. Flowsheet Documentation: Disposition/Condition: ED Disposition ED Disposition Transfer - [facility] to IP/Obs Condition -- Comment -- Discharge Medications: Patient's Medications No medications on file Follow-up: Electronically signed by: Pablo Chinchilla MD 11/20/231700 T [facility] EMERGENCY PHYSICIAN STAFF [facility] 2023-11-20 11:02:00 AdmissionCare Guideline: Renal Failure [...] micromoles/L) AdmissionCare documentation entered by: Pablo Chinchilla [facility], 28 edition, Copyright ? 2023 [employer] All Rights Reserved. [id number]:18:34-05:00 [facility]
[2024-07-27] MEDS ORDERED: NA CHLORIDE 0.9% 1,000 ML ONE (14:44)
--- NOTE | 2024-07-27 17:38 | RAD REPORT ---
EXAMINATION: ONE VIEW CHEST XR CLINICAL INDICATION: Female, 73 years old.,COUGH TECHNIQUE: Frontal chest projection is submitted. Examination is limited by patient positioning and t echnique. COMPARISON: 06/13/2024 FINDINGS: The lungs are well inflated. Left retrocardiac opacification, progressive. Mild central interstitial prominence. No pneumothorax or sizable effusion. The heart is upper limit of normal in size. Mediastinal contours are unremarkable. IMPRESSION: Retrocardiac airspace opacification, could reflect atelectasis or pneumonia, possibly with small effu hoa. Central mild interstitial prominence may relate to central congestion or edema.
[2024-07-27 17:51] LABS: PT Prothrombin Time 14.4 SECONDS (10-13.0); Protime INR 1.28
[2024-07-27 17:55] LABS: Absolute Eosinophils 0.1 K/uL (0-0.5); Absolute Lymphocytes (CBC) 3.1 K/uL (0.7-4.9); Absolute Monocytes 0.6 K/uL (0.1-1.3); Absolute Neutrophil 4.1 K/uL (1.8-8.0); Basophils % 0.5 % (0-1.3); Hematocrit 33.3 % (36.0-45.0); Hemoglobin 11.1 g/dL (12.0-15.0); Lymphocytes % 38.8 % (15.3-44.8); MCH 30.5 pg (27.0-35.0); MCHC 33.2 g/dL (32.0-36.0); MCV 91.9 fL (80-100); MPV 7.7 fL (7.6-11.3); Neutrophils % 51.7 % (41.7-73.7); Nucleated Red Blood Cells % 0.1 % (0-0); Platelets 287 thou/uL (152-406); RBC Red Blood Cell Count 3.62 M/uL (3.86-4.86); Red Cell Distribution Width 19.3 % (12.1-15.2)
--- NOTE | 2024-07-27 17:57 | ER ---
Nurse's Notes [facility] Name: Gwendolyn Mercado Age: 73 yrs Sex: Female : 1950 Arrival Date: 07/27/2024 Time: 14:08 Bed 7 Private MD: Diagnosis: Pressure ulcer of buttock-stage 3 ;Weakness;Obesity, unspecified;Hypokalemia Presentation: 07/27 14:11 Chief complaint: EMS states: SENT FROM [facility] FOR SACRAL WOUND. Coronavirus screen: bp At this time, the client does not indicate any symptoms associated with coronavirus-19. Ebola Screen: No symptoms or risks identified at this time. Initial Sepsis Screen: Does the patient meet any 2 criteria? Altered Mental Status. No. Patient's initial sepsis screen is negative. Does the patient have a suspected source of infection? No. Patient's initial sepsis screen is negative. Risk Assessment: Do you want to hurt yourself or someone else? Patient reports no desire to harm self or others. Onset of symptoms is unknown. 14:11 Method Of Arrival: EMS: [facility] bp 14:11 Acuity: [place] 3 bp Triage Assessment: 14:12 General: Appears in no apparent distress. uncomfortable, obese, Behavior is bp uncooperative. Pain: Complains of pain in buttocks. EENT: No deficits noted. Neuro: Level of Consciousness is confused, Oriented to person, place. Cardiovascular: Rhythm is sinus rhythm. Respiratory: No deficits noted. GI: No signs and/or symptoms were reported involving the gastrointestinal system. : No signs and/or symptoms were reported regarding the genitourinary system. Derm: No deficits noted. Musculoskeletal: No deficits noted. Historical: - Allergies: 14:12 Sulfa (Sulfonamide Antibiotics); bp - PMHx: 14:12 Atrial fibrillation; bowel incontinence; Hypertensive disorder; prolapsed urethra; bp - PSHx: 14:12 section; tubal ligation; bp - Immunization history:: Adult Immunizations up to date. - Infectious Disease History:: Denies. - Social history:: Smoking status: unknown. - Family history:: not pertinent. Screenin:14 [facility] ED Fall Risk Assessment (Adult) History of falling in the last 3 months, bp including since admission No falls in past 3 months (0 pts) Confusion or Disorientation Yes (5 pts) Intoxicated or Sedated No (0 pts) Impaired Gait Yes (1 pt) Mobility Assist Device Used No (0 pt) Altered Elimination No (0 pt) Score/Fall Risk Level 0 - 2 = Low Risk Oriented to surroundings. Abuse screen: Denies threats or abuse. Denies injuries from another. Nutritional screening: No deficits noted. Tuberculosis screening: No symptoms or risk factors identified. Assessment: 14:14 General: Appears obese, unkempt, Behavior is uncooperative. bp 14:45 Pain: Complains of pain in buttocks Pain currently is 10 out of 10 on a pain scale. mb9 Quality of pain is described as throbbing. Neuro: Level of Consciousness is confused. Cardiovascular: Patient's skin is warm and dry. Respiratory: Airway is patent. GI: Abdomen is round non-distended, Colostomy site is clean and dry. Ostomy appliance is intact. PEG tube present. : No signs and/or symptoms were reported regarding the genitourinary system. EENT: No signs and/or symptoms were reported regarding the EENT system. Derm: Wound noted buttocks. Musculoskeletal: Range of motion: intact in all extremities. 14:45 Reassessment: pt refusing to put hospital gown on. mb9 16:02 Reassessment: pt refuses CT. ERP notified. mb9 16:18 Reassessment: pt refusing redraw of labs, urine sample, and dressing. Daughter at mb9 bedside talking to pt. ERP notified. 18:43 Reassessment: Patient states symptoms have not improved. General: Appears mb9 uncomfortable, Behavior is uncooperative. 19:30 Reassessment: Patient and/or family updated on plan of care and expected duration. Pain ha1 level reassessed. Vital Signs: 14:11 BP 139 / 81; Pulse 87; Resp 19; Temp 97.9; Pulse Ox 97% ; bp 16:12 BP 139 / 81; Pulse 95; Resp 18; Temp 98(O); Pulse Ox 98% on R/A; mb9 17:30 BP 141 / 82; Pulse 91; Resp 18; Pulse Ox 95% ; mb9 19:00 BP 131 / 67; Pulse 100; Resp 18; Pulse Ox 96% on R/A; mb9 20:00 BP 167 / 88; Pulse 97; Resp 18 S; Pulse Ox 96% on R/A; ha1 ED Course: 14:11 Patient arrived in ED. bp 14:12 Triage completed. bp 14:12 Arm band placed on. bp 14:13 Humberto Rios MD is Attending Physician. janel 14:14 Patient has correct armband on for positive identification. bp 14:38 Michelle Naqvi, LUC is Primary Nurse. mb9 14:45 Client placed on continuous cardiac and pulse oximetry monitoring. NIBP monitoring mb9 applied. 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 15:00 EKG done, by ED staff, reviewed by Humberto Rios MD. Inserted saline lock: 22 gauge in mb9 left hand, using aseptic technique. Blood collected. Flushed with 10 mL NS. 16:20 No provider procedures requiring assistance completed. mb9 17:03 XRAY Chest (1 view) In Process Unspecified. EDMS 17:04 Door closed. Noise minimized. Warm blanket given. Pillow given. Repositioned patient. mb9 Cleaned of incontinence. Linen changed. purwic placed. 17:04 Dressings: ABD pad X 1; coccyx and buttocks. mb9 17:05 Provided Education on: press call light if needing anything. mb9 17:55 Adolfo Garner MD is Hospitalizing Provider. janel 18:44 Patient admitted, IV remains in place. mb9 Administered Medications: 16:11 Drug: NS 0.9% IV 1000 ml IV at 1000 ml once; to be given as a bolus over 60 minutes mb9 Route: IV; Rate: 1000 ml; Site: left hand; 17:05 Follow up: Response: No adverse reaction; IV Status: Completed infusion mb9 18:14 Drug: fentaNYL (PF) IVP 50 mcg IVP once Route: IVP; Site: left forearm; bp 18:45 Follow up: Response: No adverse reaction mb9 18:15 Drug: Meropenem IV 1 grams IV at per protocol once; (mix in NS 100 mL) Route: IV; Rate: bp per protocol; Site: left forearm; 18:52 Follow up: IV Status: Completed infusion bp 18:15 Drug: Ondansetron IVP 4 mg IVP once; over 2 minutes Route: IVP; Site: left forearm; bp 18:45 Follow up: Response: No adverse reaction mb9 18:52 Drug: levofloxacin IVPB 750 mg 150 ml IVPB once over 90 mins Volume: 150 ml; Route: bp IVPB; Infused Over: 90 mins; Site: left forearm; 20:15 Follow up: Response: No adverse reaction; IV Status: Completed infusion ha1 19:00 Drug: Potassium PO Effervescent Tablet 50 mEq PO once; dissolve in 4 ounces of water or mb9 juice Route: PO; 19:30 Follow up: Response: No adverse reaction ha1 19:00 Drug: Potassium PO Effervescent Tablet 50 mEq PO once; dissolve in 4 ounces of water or mb9 juice repeat in 1 hour Route: PO; 19:30 Follow up: Response: No adverse reaction ha1 19:35 Not Given (Duplicate Order): ns 0.9% with kcl20 meq/l 1000 ml IV at 125 ml/hr continuouscha 19:55 Drug: fentaNYL (PF) IVP 25 mcg IVP once Route: IVP; Site: left hand; vc1 20:20 Follow up: Response: No adverse reaction; Pain is decreased; RASS: Alert and Calm (0) ha1 20:15 Drug: Potassium Chloride IV 20 mEq IV at per protocol once; administer over 1-2 hours ha1 Route: IV; Rate: per protocol; Site: left forearm; 20:27 Follow up: Response: No adverse reaction; IV Status: Infusion continued upon admission ha1 20:15 Drug: Magnesium Sulfate IVPB 2 grams IVPB once over 2 hrs Route: IVPB; Infused Over: 2 ha1 hrs; Site: left forearm; 20:26 Follow up: Response: No adverse reaction; IV Status: Infusion continued upon admission ha1 20:26 Not Given (Patient Refused): potassium [id number] mmol IV at per protocol once; dose ha1 as phosphate; infuse over 4-6 hours (mix in 250 mL NS) Medication: 14:14 VIS not applicable for this client. bp Outcome: 17:56 Decision to Hospitalize by Provider. janel 20:31 Admitted to Med/surg accompanied by tech, via stretcher, room 210, with chart, ha1 20:31 Condition: stable 20:31 Instructed on the need for admit, 20:32 Patient left the ED. ha1 Signatures: Dispatcher [employer] EDHumberto Reyes MD MD cha Peltier, Brian, RN RN Ree Devlin RN RN [facility] Namita Flores RN RN 1 Michelle Naqvi, RN RN mb9 Corrections: (The following items were deleted from the chart) 17:13 14:45 GI: Abdomen is round non-distended, mb9 mb9
--- NOTE | 2024-07-27 17:57 | EDPHYS ---
Physician Documentation [facility] Name: Gwendolyn Mercado Age: 73 yrs Sex: Female : 1950 Arrival Date: 07/27/2024 Time: 14:08 Bed 7 Private MD: ED Physician Humberto Rios HPI: 07/27 15:50 This 73 yrs old Female presents to ER via EMS with complaints of Wound Check. janel 15:50 Patient presents to ED for recheck of: SACRAL DECUB. The affected area is on the coccyx janel and gluteal cleft. Previous treatment: NONE. Progress: The patient reports no change in drainage. The patient has experienced similar episodes in the past, multiple times. Historical: - Allergies: 14:12 Sulfa (Sulfonamide Antibiotics); bp - PMHx: 14:12 Atrial fibrillation; bowel incontinence; Hypertensive disorder; prolapsed urethra; bp - PSHx: 14:12 section; tubal ligation; bp - Immunization history:: Adult Immunizations up to date. - Infectious Disease History:: Denies. - Social history:: Smoking status: unknown. - Family history:: not pertinent. ROS: 15:50 Constitutional: Negative for fever, chills, and weight loss, Eyes: Negative for injury, janel pain, redness, and discharge, ENT: Negative for injury, pain, and discharge, Neck: Negative for injury, pain, and swelling, Cardiovascular: Negative for chest pain, palpitations, and edema, Respiratory: Negative for shortness of breath, cough, wheezing, and pleuritic chest pain, Abdomen/GI: Negative for abdominal pain, nausea, vomiting, diarrhea, and constipation, : Negative for injury, bleeding, discharge, and swelling, MS/Extremity: Negative for injury and deformity, Neuro: Negative for headache, weakness, numbness, tingling, and seizure, Psych: Negative for depression, anxiety, suicide ideation, homicidal ideation, and hallucinations, Allergy/Immunology: Negative for hives, rash, and allergies, Endocrine: Negative for neck swelling, polydipsia, polyuria, polyphagia, and marked weight changes, Hematologic/Lymphatic: Negative for swollen nodes, abnormal bleeding, and unusual bruising, 15:50 Back: Positive for of the lumbar area and sacrum, SACRAL 3RD, Exam: 16:03 Constitutional: This is a well developed, well nourished patient who is awake, alert, janel and in no acute distress. Head/Face: Normocephalic, atraumatic. Eyes: Pupils equal round and reactive to light, extra-ocular motions intact. Lids and lashes normal. Conjunctiva and sclera are non-icteric and not injected. Cornea within normal limits. Periorbital areas with no swelling, redness, or edema. ENT: Nares patent. No nasal discharge, no septal abnormalities noted. Tympanic membranes are normal and external auditory canals are clear. Oropharynx with no redness, swelling, or masses, exudates, or evidence of obstruction, uvula midline. Mucous membranes moist. Neck: Trachea midline, no thyromegaly or masses palpated, and no cervical lymphadenopathy. Supple, full range of motion without nuchal rigidity, or vertebral point tenderness. No Meningismus. Chest/axilla: Normal chest wall appearance and motion. Nontender with no deformity. No lesions are appreciated. Cardiovascular: Regular rate and rhythm with a normal S1 and S2. No gallops, murmurs, or rubs. Normal PMI, no JVD. No pulse deficits. Respiratory: Lungs have equal breath sounds bilaterally, clear to auscultation and percussion. No rales, rhonchi or wheezes noted. No increased work of breathing, no retractions or nasal flaring. Abdomen/GI: Soft, non-tender, with normal bowel sounds. No distension or tympany. No guarding or rebound. No evidence of tenderness throughout. Back: No spinal tenderness. No costovertebral tenderness. Full range of motion. Female : Normal external genitalia. MS/ Extremity: Pulses equal, no cyanosis. Neurovascular intact. Full, normal range of motion., bilateral aka Neuro: Awake and alert, GCS 15, oriented to person, place, time, and situation. Cranial nerves II-XII grossly intact. Motor strength 5/5 in all extremities. Sensory grossly intact. Cerebellar exam normal. Normal gait. Psych: Awake, alert, with orientation to person, place and time. Behavior, mood, and affect are within normal limits. 16:03 Skin: Appearance: normal except for affected area, abscess, not appreciated, cellulitis, is not appreciated, induration, that is mild is noted, located on the coccyx and gluteal cleft, 16:21 ECG was reviewed by the Attending Physician. [facility] Vital Signs: 14:11 BP 139 / 81; Pulse 87; Resp 19; Temp 97.9; Pulse Ox 97% ; bp 16:12 BP 139 / 81; Pulse 95; Resp 18; Temp 98(O); Pulse Ox 98% on R/A; mb9 17:30 BP 141 / 82; Pulse 91; Resp 18; Pulse Ox 95% ; mb9 19:00 BP 131 / 67; Pulse 100; Resp 18; Pulse Ox 96% on R/A; mb9 20:00 BP 167 / 88; Pulse 97; Resp 18 S; Pulse Ox 96% on R/A; ha1 MDM: 14:13 Medical Screening Exam initiated janel 16:04 Differential diagnosis: cellulitis. Data reviewed: vital signs, nurses notes, lab test [facility] result(s), EKG, radiologic studies, plain films. Consideration of Admission/Observation Escalation of care including admission/observation considered. I considered the following discharge prescriptions or medication management in the emergency department Medications were administered in the Emergency Department. See MAR. Independent interpretation of the following test(s) in the Emergency Department EKG: See my EKG interpretation above. Test considered but Not performed: CT: CT C/A/P REFUSED. 07/27 14:15 Order name: Basic Metabolic Panel; Complete Time: 18:21 [facility] 07/27 14:15 Order name: CBC with Diff; Complete Time: 18:03 [facility] 07/27 14:15 Order name: LFT's; Complete Time: 18:21 [facility] 07/27 14:15 Order name: Magnesium; Complete Time: 18:21 [facility] 07/27 14:15 Order name: NT PRO-BNP; Complete Time: 18:21 [facility] 07/27 14:15 Order name: PT-INR; Complete Time: 18:03 [facility] 07/27 14:15 Order name: Troponin HS; Complete Time: 18:21 [facility] 07/27 14:15 Order name: Blood Culture Adult (2) [facility] 07/27 14:15 Order name: Lactate w/ 2H reflex if indic.; Complete Time: 17:28 [facility] 07/27 14:15 Order name: Lipase; Complete Time: 18:21 [facility] 07/27 14:15 Order name: UA Rfx Sherif Cult if indicated [facility] 07/27 18:20 Order name: Phosphorus; Complete Time: 19:34 [facility] 07/27 18:43 Order name: CBC with Automated Diff EDMS 07/27 18:43 Order name: CBC with Automated Diff [facility] 07/27 18:43 Order name: Comprehensive Metabolic Panel [facility] 07/27 18:43 Order name: Comprehensive Metabolic Panel [facility] 07/27 14:15 Order name: XRAY Chest (1 view); Complete Time: 17:48 [facility] 07/27 14:15 Order name: CT Chest Abdomen Pelvis W/O Contrast [facility] 07/27 14:20 Order name: Head C Spine Mpr Wo Con EDVT 07/27 14:15 Order name: EKG; Complete Time: 14:16 [facility] 07/27 18:43 Order name: CONS Physician Consult [facility] 07/27 14:15 Order name: Cardiac monitoring; Complete Time: 15:42 [facility] 07/27 14:15 Order name: EKG - Nurse/Tech; Complete Time: 16:12 [facility] 07/27 14:15 Order name: IV Saline Lock; Complete Time: 15:42 [facility] 07/27 14:15 Order name: Labs collected and sent; Complete Time: 15:43 [facility] 07/27 14:15 Order name: O2 Per Protocol; Complete Time: 15:43 [facility] 07/27 14:15 Order name: O2 Sat Monitoring; Complete Time: 15:42 [facility] 07/27 14:15 Order name: IV - Large Bore; Complete Time: 16:44 [facility] 07/27 15:28 Order name: Wound dressing: wet to dry; Complete Time: 17:05 [facility] EC:21 Rate is 95 beats/min. Rhythm is irregularly irregular. QRS [place] is Normal. [place] interval janel is normal. QRS interval is normal. QT interval is normal. No Q waves. T waves are Normal. No ST changes noted. Clinical impression: Atrial Fibrillation and No evidence of ischemia. Interpreted by me. Reviewed by me. Administered Medications: 16:11 Drug: NS 0.9% IV 1000 ml IV at 1000 ml once; to be given as a bolus over 60 minutes mb9 Route: IV; Rate: 1000 ml; Site: left hand; 17:05 Follow up: Response: No adverse reaction; IV Status: Completed infusion mb9 18:14 Drug: fentaNYL (PF) IVP 50 mcg IVP once Route: IVP; Site: left forearm; bp 18:45 Follow up: Response: No adverse reaction mb9 18:15 Drug: Meropenem IV 1 grams IV at per protocol once; (mix in NS 100 mL) Route: IV; Rate: bp per protocol; Site: left forearm; 18:52 Follow up: IV Status: Completed infusion bp 18:15 Drug: Ondansetron IVP 4 mg IVP once; over 2 minutes Route: IVP; Site: left forearm; bp 18:45 Follow up: Response: No adverse reaction mb9 18:52 Drug: levofloxacin IVPB 750 mg 150 ml IVPB once over 90 mins Volume: 150 ml; Route: bp IVPB; Infused Over: 90 mins; Site: left forearm; 20:15 Follow up: Response: No adverse reaction; IV Status: Completed infusion ha1 19:00 Drug: Potassium PO Effervescent Tablet 50 mEq PO once; dissolve in 4 ounces of water or mb9 juice Route: PO; 19:30 Follow up: Response: No adverse reaction ha1 19:00 Drug: Potassium PO Effervescent Tablet 50 mEq PO once; dissolve in 4 ounces of water or mb9 juice repeat in 1 hour Route: PO; 19:30 Follow up: Response: No adverse reaction ha1 19:35 Not Given (Duplicate Order): ns 0.9% with kcl20 meq/l 1000 ml IV at 125 ml/hr continuouscha 19:55 Drug: fentaNYL (PF) IVP 25 mcg IVP once Route: IVP; Site: left hand; vc1 20:20 Follow up: Response: No adverse reaction; Pain is decreased; RASS: Alert and Calm (0) ha1 20:15 Drug: Potassium Chloride IV 20 mEq IV at per protocol once; administer over 1-2 hours ha1 Route: IV; Rate: per protocol; Site: left forearm; 20:27 Follow up: Response: No adverse reaction; IV Status: Infusion continued upon admission ha1 20:15 Drug: Magnesium Sulfate IVPB 2 grams IVPB once over 2 hrs Route: IVPB; Infused Over: 2 ha1 hrs; Site: left forearm; 20:26 Follow up: Response: No adverse reaction; IV Status: Infusion continued upon admission ha1 20:26 Not Given (Patient Refused): potassium [id number] mmol IV at per protocol once; dose ha1 as phosphate; infuse over 4-6 hours (mix in 250 mL NS) Disposition Summary: 07/27/24 17:56 Hospitalization Ordered Notes: Hospitalization Status: Inpatient Admission janel Provider: Adolfo Garner cha Location: Telemetry/MedSurg (Inpatient) janel Condition: Fair janel Problem: new janel Symptoms: have improved janel Bed/Room Type: Standard [facility] Room Assignment: 210(07/27/24 19:03) janel Diagnosis - Pressure ulcer of buttock - stage 3 janel - Weakness janel - Obesity, unspecified janel - Hypokalemia janel Forms: - Medication Reconciliation Form janel - SBAR form janel - Leadership Thank You Letter janel Signatures: Dispatcher [employer] EDMS Humberto Rios MD MD cha Peltier, Brian, RN RN bp Ree Ojeda RN RN vc1 Namita Flores RN RN ha1 Michelle Naqvi RN RN mb9 Betty Azul RN RN br2 Corrections: (The following items were deleted from the chart) 14:18 14:16 Head C Spine Cap Wo Con+CT.RAD.BRZ ordered. EDMS EDMS 16:44 15:28 Cote ordered. [facility] mb9 17:50 17:50 IS+RC.RAD.BRZ ordered. EDMS EDMS 19:03 17:56 janel janel
[2024-07-27] MEDS ORDERED: Meropenem 1000 MG/VIAL IV ONE (18:00)
[2024-07-27] MEDS ORDERED: FENTANYL CITR 100 MCG/2 ML ONE ×2 (18:00→19:46)
[2024-07-27] MEDS ORDERED: NA CHLORIDE 0.9% 100 ML ONE (18:01)
[2024-07-27] MEDS ORDERED: Levofloxacin500mg IV 0 MG/0 ML BAG IV ONE (18:01)
[2024-07-27] MEDS ORDERED: ONDANSETRON 4 MG/2 ML VIAL ONE (18:08)
[2024-07-27] MEDS ORDERED: Levofloxacin 750mg IV 750 MG/150 ML BAG IV ONE (18:08)
[2024-07-27 18:17] LABS: AST/SGOT 25 U/L (15-37); Albumin 2.2 g/dL (3.4-5.0); Albumin/Globulin Ratio 0.4 (1.1-1.8); Alkaline Phosphatase 81 U/L (45-117); Anion Gap 9.4 mEq/L (5.0-15.0); BUN Blood Urea Nitrogen 15 mg/dL (7-18); Bicarbonate 26 mEq/L (21-32); Bilirubin Total 0.3 mg/dL (0.2-1.0); Globulin 5.1 g/dL (2.3-3.5); Glomerular Filtration Rate 100 ml/min (=/>90); Glucose Level 85 mg/dL (74-106); Lipase 16 U/L (13-75); Magnesium 1.6 mg/dL (1.6-2.4); NT PRO-BNP 2329 pg/mL (<450); Protein, Total 7.3 g/dL (6.4-8.2); Sodium Level 139 mEq/L (136-145); Troponin High Sensitivity 22.3 pg/mL (<58.9)
[2024-07-27 18:18] LABS: ALT/SGPT < 14 U/L (13-56); Bilirubin Direct < 0.2 mg/dL (0-0.2); Bilirubin Indirect, Calculated 0.1 mg/dL (0.2-0.8)
[2024-07-27 18:19] LABS: Potassium 2.4 mEq/L (3.5-5.1)
[2024-07-27] MEDS ORDERED: ACETAMINOPHEN 325 MG TABLET PO PRN (18:37)
[2024-07-27] MEDS ORDERED: ONDANSETRON 4 MG/2 ML VIAL IV PRN (18:37)
--- NOTE | 2024-07-27 18:37 | P.HP ---
Certification for Inpatient Patient admitted to: Inpatient With expected LOS: >2 Midnights Practitioner: I am a practitioner with admitting privileges, knowledge of patient current condition, hospital course, and medical plan of care. Services: Services provided to patient in accordance with Admission requirements found in Title 42 Section 412.3 of the Code of Federal Regulations Patient History Date of Service: 07/27/24 Reason for admission: Wound infection History of Present Illness: 73 yrs old Female with past medical history of hypertension, hyperlipidemia at [facility], bowel incontinence who was brought to ER for wound infection. Patient has a sacral decubitus ulcer near to the coccyx area and gluteal cleft and has been complained of pain and swelling. Denies any fever or chills. No nausea vomiting or diarrhea. She has been recently been admitted to the hospital and was treated with antibiotics and wound care. As the pain got worse and was brought to ER for further management. Patient was assessed in the ER and is admitted for further management of wound infection Allergies Sulfa (Sulfonamide Antibiotics) Adverse Reaction (Verified 05/09/24 00:24) Hives/Rash Home medications list reviewed: Yes Home Medications: Acetaminophen [Tylenol Extra Strength] 500 mg PO DAILYPRN PRN 05/09/24 Apixaban [Eliquis] 5 mg PO BID 06/22/24 Benzonatate [Tessalon Perle*] 100 mg PO TID 06/22/24 Escitalopram Oxalate [Lexapro] 10 mg PO DAILY 06/22/24 Morphine *Extended Release* [MS Contin*] 15 mg PO BID 06/22/24 Apixaban [Eliquis] 5 mg PO BID 06/28/24 Ensure Max Protein 330 ml PO TID can 06/28/24 Mupirocin Calcium [Bactroban Nasal*] 1 appl YARA BID tube 06/28/24 Folic Acid 1 mg PO DAILY 30 Days #30 tab 07/08/24 Multivitamin Oral Liq [Theravite Liq*] 5 ml FT DAILY 30 Days #150 ml 07/08/24 Thiamine HCl [Vitamin B-1*] 100 mg PO DAILY 30 Days #30 tab 07/08/24 - Past Medical/Surgical History Diabetic: No Past Medical History: Reviewed- Non-Contributory -: A-fib, ,,prolapsed urethra, , -: bowel incontinence -: HTN Past Surgical History: Reviewed- Non-Contributory -: Csection -: tubal ligation. -: Colostomy Psychosocial/ Personal History: skilled nursing resident - Social History Smoking Status: Never smoker Alcohol use: No CD- Drugs: No Caffeine use: Yes Review of Systems 10-point ROS is otherwise unremarkable Physical Examination - Vital Signs Temperature: 98 F Blood Pressure: 138/82 Pulse: 92 Respirations: 18 Pulse Ox (%): 94 - Physical Exam General: Alert, Oriented x3, Mild distress HEENT: Atraumatic, Normocephalic Neck: Supple Respiratory: Clear to auscultation bilaterally, Normal air movement Cardiovascular: No edema, Regular rate/rhythm, Normal S1 S2 Capillary refill: <2 Seconds Gastrointestinal: Soft and benign, W/out hepatosplenomegaly Musculoskeletal: No clubbing Integumentary: Tenderness/swelling, Erythema Neurological: Other (Alert awake nonfocal) Lymphatics: No axilla or inguinal lymphadenopathy - Studies Laboratory Data (last 24 hrs) 07/27/24 07/27/24 07/27/24 17:17 17:17 17:17 WBC 8.00 Hgb 11.1 L Hct 33.3 L Plt Count 287 PT 14.4 H INR 1.28 Sodium 139 Potassium 2.4 L* BUN 15 Creatinine 0.45 L Glucose 85 Magnesium 1.6 Total Bilirubin 0.3 AST 25 ALT < 14 Alkaline Phosphatase 81 Lipase 16 Assessment and Plan - Plan Decubitus ulcer Wound infection Started on IV antibiotic Monitor closely on telemetry Wound care consulted Surgical consult Will keep NPO. For possible surgical intervention Hypertension Antihypertensives titrated Continue home medications and titrate as needed Hyperlipidemia Continue statin History of CHF History of paroxysmal A-fib Continue home medications and titrate as needed Will hold Eliquis for now Hypokalemia Electrolytes monitor and replace accordingly GI/DVT prophylaxis Advanced directive full code Discharge Plan: Home - Advance Directives Does patient have a Living Will: No Does patient have a Durable POA for Healthcare: No - Code Status/Comfort Care Code Status: Full Code Time Spent Managing Pts Care (In Minutes): 48
[2024-07-27] MEDS ORDERED: KCL 20 MEQ/100 mL IVPB 100 ML IV ONE (18:50)
[2024-07-27] MEDS ORDERED: POTASSIUM 25 MEQ EFFERV TAB ONE (18:50)
[2024-07-27] MEDS ORDERED: NS KCL 20MEQ 1,000 ML IV ONE (18:50)
[2024-07-27] MEDS ORDERED: Magnesium Sulfate 2gm IVPB 2 G/50 ML BAG IV ONE (18:50)
[2024-07-27] MEDS: NA CHLORIDE 0.9% 1,000 ML IV SCH (19:00)
[2024-07-27 21:09] VITALS: O2SAT 96
[2024-07-27] MEDS: MAGNESIUM SULFATE 1 gm IVPB 1 GM/100 ML BAG IV ONE (21:53)
[2024-07-27] MEDS ORDERED: HYDROCODONE/APAP 5/325 MG TAB PO PRN (22:24)
[2024-07-27] MEDS ORDERED: VANCOMYCIN 1 GM in NA CHLORIDE 0.9% 250 ML IVPB SCH (23:00)
[2024-07-27] MEDS: VANCOMYCIN 2 GM in NA CHLORIDE 0.9% 500 ML IVPB SCH (23:00)
[2024-07-27] MEDS: KCL 20 MEQ/100 mL IVPB 20 MEQ/100 ML BAG IV SCH (23:04)
[2024-07-28] MEDS ORDERED: ACETAMINOPHEN FT PRN (01:33)
[2024-07-28] MEDS ORDERED: HYDROCODONE FT PRN (01:33)
[2024-07-28] MEDS ORDERED: [UNRECOGNIZED DRUG - OTHER] FT PRN (01:33)
[2024-07-28] MEDS: POTASSIUM PHOS IN 0.9 % NACL 15 MMOL/250 ML BAG IV ONE (03:36)
[2024-07-28] MEDS ORDERED: HYDROCOD 2.5mg-ACETAMIN 108mg/5mL Soln FT PRN (08:25)
[2024-07-28] MEDS: ENOXAPARIN 40 MG/0.4 ML SQ SCH (09:00)
[2024-07-28] MEDS: THIAMINE HCL 100 MG TABLET FT SCH (09:00)
[2024-07-28] MEDS: COLLAGENASE 30 GM OINTMENT TOP SCH (09:00)
[2024-07-28] MEDS: MULTIVITAMINS 5 ML ORAL SYR FT SCH (09:00)
[2024-07-28] MEDS: ZINC SULFATE 220 MG CAP FT SCH (09:00)
[2024-07-28] MEDS ORDERED: ESCITALOPRAM OXALATE 10 MG TABLET PO SCH (09:00)
[2024-07-28] MEDS ORDERED: FOLIC ACID 1 MG TABLET FT SCH (09:00)
[2024-07-28] MEDS: CEFEPIME 1 GM in NA CHLORIDE 0.9% 100 ML IV SCH ×2 (09:25→20:06)
[2024-07-28] MEDS: THIAMINE HCL 100 MG TABLET PO SCH (09:26)
[2024-07-28] MEDS: FOLIC ACID 1 MG TABLET PO SCH (09:27)
[2024-07-28] MEDS: ESCITALOPRAM OXALATE 10 MG TABLET FT SCH (09:27)
[2024-07-28] MEDS: SERTRALINE HCL 50 MG TAB FT SCH (09:27)
[2024-07-28] MEDS: ASCORBIC ACID 500 MG TABLET FT SCH (09:27)
[2024-07-28] MEDS: FUROSEMIDE 40 MG TABLET FT SCH (09:28)
[2024-07-28] MEDS: MORPHINE 2 MG/ML SYR IV PRN (11:02)
--- NOTE | 2024-07-28 11:23 | P.CNS ---
Date of Consult: 07/28/24 Date of Consultation: 07/28/2024 Brief History Of Present Illness: The patient is a 73-year-old female with a history of significant dementia, atrial fibrillation, colostomy, bedbound, who presents to the emergency department with chief complaints or concerns of infection from a senior care. She was evaluated in the emergency department and found to have leukocytosis, probably significant urinary tract infection. Wound was noted also on her sacral/buttock area. As such, I am consulted to see her for this wound on her bu ttock/sacral area. The patient is confused, argumentative. Does not answer questions appropriately. Mainly only shouts no to most commands. As such, most of the information is obtained from the chart. Patient returns for ongoing wound care as she continues to refuse wound care at her facility. Past Medical History: Atrial fibrillation, prolapsed urethra, bowel incontinence, hypertension, dementia, atrial fibrillation. Past Surgical History: Includes colostomy creation, tubal ligation, and C- section, PEG Tube. Social History: She is in a senior care resident. Unable to obtain information about smoking, recreational drug use. Review of Systems: 10-point review of systems unable to obtain. Allergies: TO SULFA. Home Medications: Include Tylenol, Mucinex, KCl, Aldactone, Augmentin, Tessalon, Lexapro, and morphine. Physical Examination: General: At the time of my examination, the patient is awake, alert, but oriented only x1. During my examination, she is argumentative and combative. HEENT: Otherwise, normocephalic. Her sclerae were anicteric. Mucous membranes are moist. Oropharynx is clear. Neck: Supple without JVD. Chest: Has normal expansion and excursion. Cardiovascular: Regular rate and rhythm. Pulmonary: Clear to auscultation bilaterally. Abdomen: Soft. She has a colostomy in the left lower quadrant. Significant well- healed surgical scars were evident on the abdomen. She has a large pannus and likely hernia in the midline area, but difficult to examine due to patient's combativeness. Focused examination of the back shows a grade 2/3, predominantly grade 3 sacral decubitus ulcer which is clean, red, without evidence of slough, infection, odor, or undermining. It is approximately 3.5 cm in size, round. No infectious component. No significant other effects noted. Assessment And Plan: This is a 73-year-old woman with dementia from a senior care, who has a stage III decubitus ulcer near the sacrum. 1. IV fluid hydration. 2. Antibiotic coverage. 3. Local wound care with Vashe initially. We will transition to wound VAC black foam tomorrow or day after. I also recommended pressure reduction strategies including air mattress, rolling patient q.2 hours, and offloading to this area. I have explained the risks, benefits, and alternatives of the above stated plan with the patient. Continue medical management per primary team. Thank you for this interesting consult.
--- NOTE | 2024-07-28 12:56 | P.PN ---
Subjective Date of Service: 07/28/24 Chief Complaint: Wound infection Patient is complaining of cough. She also reports generalized itch. Staff report patient refused blood work and has been uncooperative. No recorded fever. Physical Examination - Vital Signs Temperature: 97.9 F Blood Pressure: 135/83 Pulse: 100 Respirations: 18 Pulse Ox (%): 96 - Studies Laboratory Data (last 24 hrs) 07/27/24 07/27/24 07/27/24 17:17 17:17 17:17 WBC 8.00 Hgb 11.1 L Hct 33.3 L Plt Count 287 PT 14.4 H INR 1.28 Sodium Potassium BUN Creatinine Glucose Phosphorus 2.0 L Magnesium Total Bilirubin AST ALT Alkaline Phosphatase Lipase 07/27/24 17:17 WBC Hgb Hct Plt Count PT INR Sodium 139 Potassium 2.4 L* BUN 15 Creatinine 0.45 L Glucose 85 Phosphorus Magnesium 1.6 Total Bilirubin 0.3 AST 25 ALT < 14 Alkaline Phosphatase 81 Lipase 16 Assessment And Plan - Plan Physical examination General: Awake, NAD, HEENT: Conjunctiva not pale, anicteric sclera Neck: No elevated JVD Heart: Heart sounds 1 and 2 normal, regular rhythm, normal rate, no pedal edema Lungs: Clear to auscultation bilaterally, adequate breath sounds bilaterally, no rhonchi or crackles. Abdomen: Soft, nondistended, nontender, normal bowel sounds. PEG tube present Extremities: Tenderness at dorsum of bilateral feet. Dorsum of both feet swollen. Skin: Stage IV sacral decubitus ulcer. Neuro: No focal motor deficit. Normal speech. Psychiatry: Uncooperative, no agitation. Diagnosis: Failure to thrive status post PEG tube Stage IV sacral decubitus ulcer Alzheimer dementia Chronic diastolic heart failure History of paroxysmal atrial fibrillation Hypokalemia Plan Stage IV decubitus ulcer No leukocytosis and no fever. Wound evaluated by surgery Dr. Hurtado who recommended to continue local wound care with Santyl and Vashe Blood cultures are pending Continue IV antibiotics,. Will D/C antibiotics if blood culture result negative. Resume PEG tube feeding and healthy diet Analgesics as needed Chronic diastolic heart failure History of paroxysmal A-fib Continue home dose Lasix Continue home dose Eliquis Hypokalemia Replace potassium level p.o. and IV. Monitor electrolytes and replace as needed. Alzheimer dementia Monitor for agitation and treat accordingly Periodic reorientation. DVT prophylaxis: On Eliquis Advanced directive: Full code
[2024-07-28] MEDS: VANCOMYCIN 2 GM in NA CHLORIDE 0.9% 500 ML IVPB SCH (13:00)
[2024-07-28] MEDS: DIPHENHYDRAMINE 25 MG TAB/CAP PO ONE (13:30)
[2024-07-28] MEDS: APIXABAN 5 MG TABLET FT SCH (20:06)
[2024-07-28] MEDS: PROTEIN SUPPLEMENT 275 GM PO SCH (20:27)
[2024-07-29 04:20] LABS: Absolute Basophils 0.1 K/uL (0-0.5); Absolute Eosinophils 0.1 K/uL (0-0.5); Absolute Monocytes 0.6 K/uL (0.1-1.3); Absolute Neutrophil 3.2 K/uL (1.8-8.0); Basophils % 0.8 % (0-1.3); Eosinophils % 1.6 % (0-4.4); Hematocrit 28.3 % (36.0-45.0); Hemoglobin 9.4 g/dL (12.0-15.0); Lymphocytes % 42.6 % (15.3-44.8); MCH 30.4 pg (27.0-35.0); MCHC 33.1 g/dL (32.0-36.0); MCV 91.7 fL (80-100); MPV 7.5 fL (7.6-11.3); Nucleated Red Blood Cells % 0.1 % (0-0); Platelets 294 thou/uL (152-406); RBC Red Blood Cell Count 3.09 M/uL (3.86-4.86); Red Cell Distribution Width 18.9 % (12.1-15.2)
[2024-07-29 04:35] LABS: Anion Gap 9.9 mEq/L (5.0-15.0); Potassium 2.9 mEq/L (3.5-5.1)
[2024-07-29] MEDS: KCL 20 MEQ/100 mL IVPB 20 MEQ/100 ML BAG IV SCH ×3 (06:00→12:26)
[2024-07-29] MEDS ORDERED: HOME MED 1 EA UNK (Potassium Chloride [Potassium Chloride] 20 MEQ Tablet.Er) PO SCH (09:00)
[2024-07-29] MEDS: POTASSIUM CL SA 10 MEQ TAB PO SCH (09:14)
[2024-07-29] MEDS: POTASSIUM 25 MEQ EFFERV TAB PO ONE (12:18)
--- NOTE | 2024-07-29 13:16 | P.DS ---
Admission Date: 07/27/24 Discharge Date: 07/29/24 Disposition: TRANSFER TO [facility] Discharge Condition: FAIR Reason for Admission: Wound infection Hospital Course: Diagnosis: Failure to thrive status post PEG tube Stage IV sacral decubitus ulcer Alzheimer dementia Chronic diastolic heart failure History of paroxysmal atrial fibrillation Hypokalemia Patient with a history of hypertension, hyperlipidemia, atrial fibrillation, dementia and was brought to the emergency department for wound check. She has a sacral decubitus ulcer. Patient reported to have been refusing treatment in the long-term. Chest x-ray demonstrated some retrocardiac opacity. Patient was hospitalized for further management She was evaluated by surgery Dr. Hurtado who recommended medical management, local wound care with Santyl ointment and Vashe solution. Patient had hypokalemia which was corrected. Patient is discharged with oral Levaquin as empiric treatment for the sacral decubitus ulcer and also to treat any lung infiltrate. Patient tolerated both oral diet Vital Signs/Physical Exam: Temp Pulse Resp BP Pulse Ox 98.0 F 83 16 134/65 96 07/29/24 08:00 07/29/24 09:14 07/29/24 10:13 07/29/24 09:14 07/29/24 10:13 General: In no apparent distress, Other (Awake) HEENT: Mucous membr. moist/pink, Sclerae nonicteric Neck: Supple, JVD not distended Respiratory: Clear to auscultation bilaterally, Normal air movement Cardiovascular: Regular rate/rhythm, Normal S1 S2, Edema (Bilateral legs) Gastrointestinal: Soft and benign, Non-distended, No tenderness, Other (PEG tube present) Musculoskeletal: Swelling (Bilateral feet) Integumentary: No cyanosis Neurological: Other (No focal motor deficit) Laboratory Data at Discharge: WBC 7.00 thou/uL (4.3-10.9) 07/29/24 03:50 Hgb 9.4 g/dL (12.0-15.0) L 07/29/24 03:50 Hct 28.3 % (36.0-45.0) L 07/29/24 03:50 Plt Count 294 thou/uL (152-406) 07/29/24 03:50 PT 14.4 SECONDS (10-13.0) H 07/27/24 17:17 INR 1.28 07/27/24 17:17 Sodium 139 mEq/L (136-145) 07/29/24 03:50 Potassium 2.9 mEq/L (3.5-5.1) L 07/29/24 03:50 BUN 11 mg/dL (7-18) 07/29/24 03:50 Creatinine 0.47 mg/dL (0.55-1.02) L 07/29/24 03:50 Glucose 86 mg/dL (74-106) 07/29/24 03:50 Phosphorus 2.0 mg/dL (2.5-4.9) L 07/27/24 17:17 Magnesium 1.6 mg/dL (1.6-2.4) 07/27/24 17:17 Total Bilirubin Cancelled 07/28/24 05:00 AST Cancelled 07/28/24 05:00 ALT Cancelled 07/28/24 05:00 Alkaline Phosphatase Cancelled 07/28/24 05:00 Lipase 16 U/L (13-75) 07/27/24 17:17 Home Medications: Acetaminophen [Tylenol Extra Strength] 500 mg PO Q6HP PRN 07/27/24 Apixaban [Eliquis] 5 mg FT BID 07/27/24 Ascorbic Acid 500 mg FT DAILY 07/27/24 Benzonatate [Tessalon Perle*] 100 mg PO TIDP PRN 07/27/24 Escitalopram Oxalate [Lexapro] 10 mg FT DAILY 07/27/24 Folic Acid 1 mg FT DAILY 07/27/24 Furosemide [Lasix*] 40 mg FT DAILY 07/27/24 Hydrocodone/Acetaminophen [Hydrocodone-Acetamn 7.5-325/15] 5 ml FT Q8HP PRN 07/27/24 Multivitamin Oral Liq [Theravite Liq*] 5 ml FT DAILY 07/27/24 Mupirocin Oint [Bactroban 2% Ointment*] 1 brenda YARA BID 07/27/24 Potassium Chloride 20 meq PO DAILY 07/27/24 Protein Supplement [Prosource] 1 pkt PO BID 07/27/24 Sertraline [Zoloft*] 50 mg FT DAILY 07/27/24 Thiamine HCl [Vitamin B-1] 100 mg FT DAILY 07/27/24 Zinc Sulfate [Zinc Sulfate*] 220 mg FT DAILY 07/27/24 Collagenase [Santyl Ointment*] 1 appl TOP DAILY gm 07/29/24 Guaif/Dm [Robitussin Dm*] 10 ml PO Q6H PRN 07/29/24 levoFLOXacin [Levaquin] 750 mg FT DAILY #7 tab 07/29/24 New Medications: levoFLOXacin [Levaquin] 750 mg FT DAILY #7 tab Physician Discharge Instructions: Patient with a history of hypertension, hyperlipidemia, atrial fibrillation, dementia and was brought to the emergency department for wound check. She has a sacral decubitus ulcer. Patient reported to have been refusing treatment in the long-term. Chest x-ray demonstrated some retrocardiac opacity. Patient was hospitalized for further management She was evaluated by surgery Dr. Hurtado who recommended medical management, local wound care with Santyl ointment and Vashe solution. Patient had hypokalemia which was corrected. Patient is discharged with oral Levaquin as empiric treatment for the sacral decubitus ulcer and also to treat any lung infiltrate. Patient tolerated both oral diet Diet: Tube feeding: Jevity 1.2 two cans 3 times daily ADA diet by mouth as tolerated Diet: AHA Activity: Fall precautions Followup: NONE,NONE [Primary Care Provider] - Time spent managing pt's care (in minutes): 37
[2024-07-29] MEDS: JEVITY 1.2 CAL LIQUID 1,000 ML BOT FT SCH (16:30)
--- NOTE | 2024-07-29 17:28 | P.PN ---
Subjective Date of Service: 07/29/24 Chief Complaint: Wound infection Patient has no new complaint. She seems to be more cooperative today. No recorded fever. Physical Examination - Vital Signs Temperature: 98.0 F Blood Pressure: 113/70 Pulse: 83 Respirations: 16 Pulse Ox (%): 97 Assessment And Plan - Plan Physical examination General: Awake, NAD, HEENT: Conjunctiva not pale, anicteric sclera Neck: No elevated JVD Heart: Heart sounds 1 and 2 normal, regular rhythm, normal rate, no pedal edema Lungs: Clear to auscultation bilaterally, adequate breath sounds bilaterally, no rhonchi or crackles. Abdomen: Soft, nondistended, nontender, normal bowel sounds. PEG tube present Extremities: Tenderness at dorsum of bilateral feet. Dorsum of both feet swollen. Skin: Stage IV sacral decubitus ulcer. Neuro: No focal motor deficit. Normal speech. Psychiatry: Uncooperative, no agitation. Diagnosis: Failure to thrive status post PEG tube Stage IV sacral decubitus ulcer Alzheimer dementia Chronic diastolic heart failure History of paroxysmal atrial fibrillation Hypokalemia Pneumonia Plan Stage IV decubitus ulcer No leukocytosis and no fever. Wound evaluated by surgery Dr. Hurtado who recommended to continue local wound care with Santyl and Vashe Blood cultures are pending Continue IV antibiotics,. Will D/C antibiotics if blood culture result negative. Resume PEG tube feeding and healthy diet Analgesics as needed Chronic diastolic heart failure History of paroxysmal A-fib Continue home dose Lasix Continue home dose Eliquis Hypokalemia Replace potassium level p.o. and IV. Monitor electrolytes and replace as needed. Alzheimer dementia Monitor for agitation and treat accordingly Periodic reorientation. 07/29 Patient with hypokalemia, potassium of 2.9. Continue to replace potassium IV and orally as needed Continue antibiotics. Chest x-ray results reviewed again and noted retrocardiac opacity. Patient be transition to oral Levaquin on discharge. Continue PEG tube feeding. D/C to [facility] once potassium level has been corrected. DVT prophylaxis: On Eliquis Advanced directive: Full code
--- NOTE | 2024-07-30 09:25 | P.PN ---
Date of Service: 07/30/24 Subjective: denies any new / worsening problems tired, sleepy. Hasn't been getting much rest sacral dressings changed overnight afebrile Physical Exam: GEN: Alert, NAD, hard of hearing CV: Regular rate and rhythm, trace b/l edema Pulm: Nonlabored respirations on room air, clear bilaterally ABD: soft, nontender, nondistended, PEG tube in place Integumentary: ~3.5 cm Stage III sacral decubitus ulcer. Wound is clean, no purulent drainage Neuro: Normal speech, normal affect Problem List: Stage III sacral decubitus ulcer Protein calorie malnutrition, s/p PEG tube (07/05/24) Chronic diastolic CHF Paroxysmal a-fib Alzheimer dementia Hypokalemia Stage III decubitus ulcer presented from [place] due to concern for sacral wound infection. Denies fever/chills. No n/v/d. Recent hospitalized a few weeks ago for confusion, UTI. (06/22-07/10) Urine culture grew E. coli, Morganella morganii, and Proteus mirabilis ESBL at the time Wound cultures grew E. coli, Proteus Mirabilis ESBL Completed 2 weeks of abx Wound is clean, red without evidence of infection. No leukocytosis and no fever. Dr. Hurtado recommended medical management with wound care, pain control Wound care per surgery: santyl, vashe, packing, daily. Frequent turning. Pressure offloading measures q2h. Continue empiric IV cefepime and vanc (/-) Blood cx - NGTD Wound cx - MDR Morganella Morganii with intermediate resistance to Cefepime swab done in ER. No reported purulent drainage Dr. Hurtado felt probably more colonized, and not active infection based on his exam remans afebrile, may stop abx, will discuss with ID Tolerating PEG tube feeds dc IVF pain control Protein calorie malnutrition, s/p PEG tube (07/05/24) had PEG placed a few weeks ago Tolerating PEG tube feeds Continue multivitamins, thiamine, folic acid Chronic diastolic CHF Paroxysmal a-fib Alzheimer dementia continue home lasix, eliquis Continue supportive care Hypokalemia Monitor and replete electrolytes as needed. Improving daily VTE: Home eliquis Code: Full Dispo: back to [place], ~1-2 days Time Spent Managing Pts Care (In Minutes): 55
[2024-07-30 12:51] LABS: Absolute Basophils 0.1 K/uL (0-0.5); Absolute Eosinophils 0.2 K/uL (0-0.5); Absolute Lymphocytes (CBC) 2.5 K/uL (0.7-4.9); Absolute Monocytes 0.7 K/uL (0.1-1.3); Absolute Neutrophil 4.5 K/uL (1.8-8.0); Basophils % 0.8 % (0-1.3); Eosinophils % 2.9 % (0-4.4); Hematocrit 28.4 % (36.0-45.0); Hemoglobin 9.6 g/dL (12.0-15.0); Lymphocytes % 31.6 % (15.3-44.8); MCH 31.4 pg (27.0-35.0); MCHC 33.9 g/dL (32.0-36.0); MCV 92.6 fL (80-100); MPV 7.3 fL (7.6-11.3); Neutrophils % 55.7 % (41.7-73.7); Platelets 286 thou/uL (152-406); RBC Red Blood Cell Count 3.07 M/uL (3.86-4.86); Red Cell Distribution Width 18.3 % (12.1-15.2)
[2024-07-30 13:06] LABS: Anion Gap 9.2 mEq/L (5.0-15.0); Magnesium 1.5 mg/dL (1.6-2.4); Potassium 3.2 mEq/L (3.5-5.1)
[2024-07-30] MEDS ORDERED: VANCOMYCIN 2 GM in NA CHLORIDE 0.9% 500 ML IVPB SCH (18:00)
[2024-07-30] MEDS: ACETAMINOPHEN 500 MG TAB PO PRN (18:02)
--- NOTE | 2024-07-30 19:27 | CON ---
History Of Present Illness: This is a 73-year-old female. I was consulted to evaluate and manage an tibiotic. The patient has significant history of sacral wound and cultures are growing Morganella Mo lydiaagni. The patient is not a good historian. Most of the history was obtained through medical recor d. The patient was brought in because of failure to thrive with no fevers. No pain. No nausea, vom iting. The patient was admitted to the hospital recently and was treated with antibiotic [facility]. Since admission, the patient's white blood cell has been normal and the patient had no fevers, even though cultures are growing Morganella morganii, but according to Surgical Team, wound is looking clean and no sign of active infections. Past Medical History: Hypertension, hyperlipidemia, atrial fibrillation, bowel incontinence, and sac ral wound stage IV. Social History: Nonsmoker, nondrinker. Family History: Noncontributory. Medications: Vancomycin and cefepime. See MARS for other medications. Allergies: SULFA DRUGS. Review of Systems: A 10-point review was performed. Physical Examination: General: This is a 73-year-old female, lying in bed, not in any acute cardiopulmonary distress. Vital Signs: Temperature 98, pulse 88, respirations 18, blood pressure 134/76. HEENT: Unremarkable. Neck: Supple. Lungs: Basal crackles. Heart: S1, S2. Regular. Abdomen: Soft, nontender. Bowel sounds present. Extremities: Trace edema. Laboratory Data: WBC 8, hemoglobin 9.6, platelets are 286. Chemistry shows BUN of 10, creatinine 0. 3, albumin level of 2.2. Urinalysis not available. Micro Data: Blood cultures are negative. Wound culture done in the ER showed Morganella morganii, s ensitive to meropenem, Zosyn, tobramycin, Augmentin, gentamycin, and Bactrim. Assessment And Plan: 1. A 73-year-old female with sacral coccyx stage IV wound. Cultures are growing Morganella morganii. The patient without any fever and leukocytosis, possible colonization of this bacteria. We will re commend to hold off antibiotic for 1 day and monitor the patient for any fevers or leukocytosis. 2. Anemia of chronic disease. 3. Moderate protein-calorie malnourishment. 4. Continue alternating the patient every 2 hours and use of low air loss mattress will be helpful fo r the patient's pressure wound. Wound care per Surgical Team. Thank you, Dr. Gresham, for consult. We will follow this patient as needed. NF/MODChante Voice ID: [id number] Report ID: [id number]
[2024-07-30] MEDS: BENZONATATE 100 MG CAP PO PRN (23:16)
[2024-07-31 04:39] LABS: Anion Gap 11.9 mEq/L (5.0-15.0); Magnesium 1.5 mg/dL (1.6-2.4); Phosphorus 2.1 mg/dL (2.5-4.9); Potassium 2.9 mEq/L (3.5-5.1)
[2024-07-31] MEDS: Magnesium Sulfate 2gm IVPB 2 G/50 ML BAG IV ONE (05:09)
[2024-07-31] MEDS: KCL 20 MEQ/100 mL IVPB 20 MEQ/100 ML BAG IV SCH (06:16)
[2024-07-31] MEDS: NA CHLORIDE 0.9% 500 ML ONE (06:35)
[2024-07-31] MEDS: POTASSIUM PHOS IN 0.9 % NACL 15 MMOL/250 ML BAG IV ONE (12:00)
--- NOTE | 2024-07-31 12:29 | P.PN ---
Date of Service: 07/31/24 Subjective: Stable, no events overnight dressing changed this morning updated photos in EMR afebrile Physical Exam: GEN: Alert, NAD, hard of hearing CV: Regular rate and rhythm, trace b/l edema Pulm: Nonlabored respirations on room air, clear bilaterally ABD: soft, nontender, nondistended, PEG tube in place Integumentary: ~3.5 cm Stage III sacral decubitus ulcer. Wound is clean, no purulent drainage Neuro: Normal speech, normal affect Problem List: Stage III sacral decubitus ulcer Protein calorie malnutrition, s/p PEG tube (07/05/24) Chronic diastolic CHF Paroxysmal a-fib Alzheimer dementia Hypokalemia Stage III decubitus ulcer presented from [place] due to concern for sacral wound infection. Denies fever/chills. No n/v/d. Recent hospitalized a few weeks ago for confusion, UTI. (06/22-07/10) Urine culture grew E. coli, Morganella morganii, and Proteus mirabilis ESBL at the time Wound cultures grew E. coli, Proteus Mirabilis ESBL Completed 2 weeks of abx Wound is clean, red without evidence of infection. No leukocytosis and no fever. Dr. Hurtado recommended medical management with wound care, pain control Wound care per surgery: santyl, vashe, packing, daily. Frequent turning. Pressure offloading measures q2h. Wound cx - MDR Morganella Morganii with intermediate resistance to Cefepime swab done in ER. No reported purulent drainage Dr. Hurtado felt probably more colonized, and not active infection based on his exam ID recommended stopping antibiotics and monitoring for 24 hours for signs of infection 07/31 - IV vanc / cefepime DC'd yesterday. Remains afebrile without leukocytosis. Continue to monitor Protein calorie malnutrition, s/p PEG tube (07/05/24) had PEG placed a few weeks ago Tolerating PEG tube feeds Continue multivitamins, thiamine, folic acid Chronic diastolic CHF Paroxysmal a-fib Alzheimer dementia continue home lasix, eliquis Continue supportive care Hypokalemia Monitor and replete electrolytes as needed. Improving daily VTE: Home eliquis Code: Full Dispo: back to [place], ~1-2 days Time Spent Managing Pts Care (In Minutes): 55
--- NOTE | 2024-07-31 15:48 | P.PN ---
Date of Service: 07/31/24 Subjective: no events overnight Pt is seen in bed. Pt appear tired and sleepy but respond to verbal conversat ion Physical Exam: GEN: Alert, NAD, hard of hearing , not in distress. Pt appear tired and sleepy but respond to verbal conversation CV: Regular rate and rhythm Pulm: Nonlabored respirations on room air, clear bilaterally ABD: soft, nontender, nondistended, PEG tube in place extremity: trace edema Integumentary: Stage III sacral decubitus ulcer Neuro: Normal speech, normal affect Laboratory Last Values WBC 8, Hgb 9.6, Platelet 286, BUN 8, cr 0.39 Microbiology 07/27/24 15:20 Blood - Blood Aerobic Blood Culture - Preliminary No growth in 24 hours. 07/27/24 15:20 Blood - Blood Anaerobic Blood Culture - Preliminary No growth in 24 hours. 07/27/24 15:35 Blood - Blood Aerobic Blood Culture - Preliminary No growth in 24 hours. 07/27/24 15:35 Blood - Blood Anaerobic Blood Culture - Preliminary No growth in 24 hours. 07/27 wound sacral: Morganella Morganii Assessment and Planning 1. Sacral coccyx stage IV wound 2. Alzheimer dementia 3. Moderate protein-calorie malnourishment. Cultures are growing Morganella morganii. The patient without any fever and leukocytosis, possible colonization of this bacteria. We will recommend to hold off antibiotic and monitor the patient for any fevers or leukocytosis. Continue alternating the patient every 2 hours and use of low air loss mattress. Recommend Wound care per surgical team. case discussed and in agreement with Dr Holland
[2024-08-01 00:38] VITALS: BMI 50.3
[2024-08-01 05:01] LABS: Absolute Basophils 0.1 K/uL (0-0.5); Absolute Eosinophils 0.2 K/uL (0-0.5); Absolute Lymphocytes (CBC) 2.9 K/uL (0.7-4.9); Absolute Monocytes 0.9 K/uL (0.1-1.3); Absolute Neutrophil 6.5 K/uL (1.8-8.0); Eosinophils % 1.6 % (0-4.4); Hematocrit 29.9 % (36.0-45.0); Lymphocytes % 27.4 % (15.3-44.8); MCH 30.6 pg (27.0-35.0); MCHC 33.3 g/dL (32.0-36.0); MCV 91.9 fL (80-100); MPV 7.9 fL (7.6-11.3); Monocytes % 8.9 % (3.3-12.3); Neutrophils % 61.1 % (41.7-73.7); Nucleated Red Blood Cells % 0.1 % (0-0); Platelets 355 thou/uL (152-406); RBC Red Blood Cell Count 3.25 M/uL (3.86-4.86); Red Cell Distribution Width 18.7 % (12.1-15.2)
[2024-08-01 05:08] LABS: Phosphorus 2.1 mg/dL (2.5-4.9)
[2024-08-01] MEDS: POTASSIUM PHOS IN 0.9 % NACL 15 MMOL/250 ML BAG IV ONE (08:50)
[2024-08-01] MEDS: Magnesium Sulfate 2gm IVPB 2 G/50 ML BAG IV ONE (08:51)
[2024-08-01] MEDS: GUAIFENESIN/DM 5 ML UCUP PO PRN (09:24)
--- NOTE | 2024-08-01 10:18 | RAD REPORT ---
EXAMINATION: ONE VIEW CHEST XR CLINICAL INDICATION: persistent cough, eval atelectasis / f/u opacity TECHNIQUE: Frontal chest projection is submitted. Examination is limited by patient positioning and t echnique. COMPARISON: 07/27/2024 FINDINGS: Small calcified granuloma in the right lung base. Mild underinflation of the lungs is present without evidence of significant airspace disease. The heart is mildly enlarged. No displaced fractures identified.
--- NOTE | 2024-08-01 11:56 | EKG ---
Test Date: 2024-07-27 Test Time: 16:07:05 Medical Equipment Repairer: MB MEASUREMENT RESULTS: Intervals: Rate: 95 CA: QRSD: 76 QT: 410 QTc: 515 [place]: P: CA: QRS: 55 T: 57 INTERPRETIVE STATEMENTS: Atrial fibrillation Low voltage QRS Septal infarct, age undetermined ST & T wave abnormality, consider lateral ischemia Abnormal ECG Compared to ECG 06/21/2024 21:34:57 ST (T wave) deviation now present Possible ischemia now present Ventricular premature complex(es) no longer present Myocardial infarct finding still present Electronically Signed On 08-01-24 11:48:45 CDT by Moises Whipple
--- NOTE | 2024-08-01 12:38 | P.PN ---
Date of Service: 08/01/24 Subjective: Continues with intermittent cough otherwise doing okay no events overnight afebrile Physical Exam: GEN: Alert, NAD, hard of hearing CV: Regular rate and rhythm, trace b/l edema Pulm: Nonlabored respirations on room air, clear bilaterally ABD: soft, nontender, nondistended, PEG tube in place Integumentary: ~3.5 cm Stage III sacral decubitus ulcer. Wound is clean, no purulent drainage Neuro: Normal speech, normal affect Problem List: Stage III sacral decubitus ulcer Protein calorie malnutrition, s/p PEG tube (07/05/24) Chronic diastolic CHF Paroxysmal a-fib Alzheimer dementia Hypokalemia Stage III sacral decubitus ulcer presented from [place] due to concern for sacral wound infection. Denies fever/chills. No n/v/d. Recent hospitalized a few weeks ago for confusion, UTI. (06/22-07/10) Urine culture grew E. coli, Morganella morganii, and Proteus mirabilis ESBL at the time Wound cultures grew E. coli, Proteus Mirabilis ESBL Completed 2 weeks of abx Wound is clean, red without evidence of infection. No leukocytosis and no fever. Dr. Hurtado recommended medical management with wound care, pain control Wound care per surgery: santyl, vashe, packing, daily. Frequent turning. Pressure offloading measures q2h. Wound cx - MDR Morganella Morganii with intermediate resistance to Cefepime swab done in ER. No reported purulent drainage Dr. Hurtado felt probably more colonized, and not active infection based on his exam ID recommended stopping antibiotics and monitoring for 24 hours for signs of infection 07/31 - IV vanc / cefepime DC'd yesterday. 08/01 - Remains afebrile without leukocytosis for 2 days after stopping abx. Repeat CXR: Small calcified granuloma otherwise no evidence of significant airspace disease Will monitor for 1 more day off abx given continued cough, 99 temps. Protein calorie malnutrition, s/p PEG tube (07/05/24) had PEG placed a few weeks ago Tolerating PEG tube feeds Continue multivitamins, thiamine, folic acid Chronic diastolic CHF Paroxysmal a-fib Alzheimer dementia continue home lasix, eliquis Continue supportive care Hypokalemia Monitor and replete electrolytes as needed. Improving daily VTE: Home eliquis Code: Full Dispo: back to [place], ~1 day Monitor 1 more day off abx Time Spent Managing Pts Care (In Minutes): 55
[2024-08-01] MEDS ORDERED: FENTANYL CITR 100 MCG/2 ML ONE (14:26)
[2024-08-01] MEDS ORDERED: LIDOCAINE 1% 20 ML MDV ONE (14:26)
[2024-08-01] MEDS ORDERED: VERAPAMIL HCL 10 MG/4 ML VIAL IV ONE (14:26)
[2024-08-01] MEDS ORDERED: HEPARIN 10,000 UNIT/10 ML VIAL IV ONE (14:26)
[2024-08-01] MEDS ORDERED: HEPA 1000U/500MLS 1,000 UNIT/500 ML BAG IV ONE (14:26)
[2024-08-01] MEDS ORDERED: MIDAZOLAM HCL 2 MG/2 ML INJ ONE (14:26)
[2024-08-01] MEDS ORDERED: HEPARIN 5000 UNIT/ML 1 ML VIAL ONE (14:27)
--- NOTE | 2024-08-01 22:28 | PN ---
Subjective: The patient is lying in bed, somnolent, not in any acute distress. Objective: Vital Signs: Temperature 98, pulse 90, respirations 16, blood pressure of 139/79. Lungs: Basal crackles. Heart: S1, S2. Regular. Abdomen: Soft, nontender. Bowel sounds present. Extremities: Trace edema. Wound noted. Laboratory Data: WBC 10.6, hemoglobin 10, platelets are 355. Chemistry shows BUN of 6, creatinine 0 .3. The patient is off antibiotic. Assessment And Plan: 1. Sacral decubitus ulcer. Concern regarding infection, most likely colonized. 2. Anemia of chronic disease. 3. Protein-calorie malnourishment, percutaneous endoscopic gastrostomy tube placement in June 2024. 4. Chronic diastolic congestive heart failure. 5. Alzheimer dementia. Continue supportive care and wound care. We will monitor for signs of infection with WBC and fever jarrett rice NF/MODL Voice ID: [id number] Report ID: [id number]
[2024-08-02 05:53] LABS: Absolute Basophils 0.1 K/uL (0-0.5); Absolute Eosinophils 0.2 K/uL (0-0.5); Absolute Lymphocytes (CBC) 3.1 K/uL (0.7-4.9); Absolute Neutrophil 6.6 K/uL (1.8-8.0); Basophils % 0.9 % (0-1.3); Eosinophils % 1.6 % (0-4.4); Hematocrit 29.7 % (36.0-45.0); Hemoglobin 10.1 g/dL (12.0-15.0); Lymphocytes % 28.2 % (15.3-44.8); MCH 31.5 pg (27.0-35.0); MCV 92.7 fL (80-100); MPV 7.7 fL (7.6-11.3); Monocytes % 9.3 % (3.3-12.3); Nucleated Red Blood Cells % 0.2 % (0-0); Platelets 301 thou/uL (152-406); Red Cell Distribution Width 18.7 % (12.1-15.2)
[2024-08-02 07:39] LABS: Anion Gap 13.7 mEq/L (5.0-15.0); Magnesium 1.8 mg/dL (1.6-2.4); Potassium 2.7 mEq/L (3.5-5.1)
[2024-08-02] MEDS: Magnesium Sulfate 2gm IVPB 2 G/50 ML BAG IV ONE (07:42)
[2024-08-02] MEDS: KCL 20 MEQ/100 mL IVPB 100 ML IV SCH (08:00)
[2024-08-02] MEDS: KCL 20 MEQ/100 mL IVPB 20 MEQ/100 ML BAG IV SCH (08:40)
[2024-08-02] MEDS: MAGNESIUM SULFATE 1 gm IVPB 1 GM/100 ML BAG IV ONE (08:40)
--- NOTE | 2024-08-02 11:20 | P.PN ---
Date of Service: 08/02/24 Subjective: minimal appetite, refusing jevity feedings today and yesterday Pain tolerable, not worse. Afebrile, no further 99 temps. Vitals stable off antibiotics Physical Exam: GEN: Alert, NAD, hard of hearing CV: Regular rate and rhythm, trace b/l edema Pulm: Nonlabored respirations on room air, clear bilaterally ABD: soft, nontender, nondistended, PEG tube in place Integumentary: ~3.5 cm Stage III sacral decubitus ulcer. Wound is clean, no purulent drainage Neuro: Normal speech, normal affect Problem List: Stage III sacral decubitus ulcer Protein calorie malnutrition, s/p PEG tube (07/05/24) Chronic diastolic CHF Paroxysmal a-fib Alzheimer dementia Hypokalemia Stage III sacral decubitus ulcer presented from [place] due to concern for sacral wound infection. Denies fever/chills. No n/v/d. Recent hospitalized a few weeks ago for confusion, UTI. (06/22-07/10) Urine culture grew E. coli, Morganella morganii, and Proteus mirabilis ESBL at the time Wound cultures grew E. coli, Proteus Mirabilis ESBL Completed 2 weeks of abx Wound is clean, red without evidence of infection. No leukocytosis and no fever. Dr. Hurtado recommended medical management with wound care, pain control Wound care per surgery: santyl, vashe, packing, daily. Frequent turning. Pressure offloading measures q2h. Wound cx - MDR Morganella Morganii with intermediate resistance to Cefepime swab done in ER. No reported purulent drainage Dr. Hurtado felt probably more colonized, and not active infection based on his exam ID recommended stopping antibiotics and monitoring for 24 hours for signs of infection 07/31 - IV vanc / cefepime DC'd yesterday. 08/01 - Remains afebrile without leukocytosis for 2 days after stopping abx. Repeat CXR: Small calcified granuloma otherwise no evidence of significant airspace disease Will monitor for 1 more day off abx given continued cough, 99 temps. 08/02 - Remains stable off antibiotics. No leukocytosis. No fever. Continues with persistent hypokalemia otherwise clinically improved. Protein calorie malnutrition, s/p PEG tube (07/05/24) Hypokalemia had PEG placed a few weeks ago Continue multivitamins, thiamine, folic acid Monitor and replete electrolytes as needed. On potassium supplement at home. 08/02 - Minimal appetite. Refusing jevity feedings today and yesterday Potassium slightly worse, likely from poor intake. Monitor on telemetry Chronic diastolic CHF Paroxysmal a-fib Alzheimer dementia continue home lasix, selinais Continue supportive care VTE: Home eliquis Code: Full Dispo: back to [facility], ~1 day Potassium improves Time Spent Managing Pts Care (In Minutes): 55
[2024-08-02] MEDS ORDERED: NA CHLORIDE 0.9% 250 ML IV SCH (16:00)
--- NOTE | 2024-08-02 22:28 | P.PN ---
Date of Service: 08/02/24 Subjective: no events overnight Pt is seen in bed. Pt appear tired and sleepy. does not respond to verbal con versation Physical Exam: GEN: Alert, NAD, hard of hearing , not in distress. Pt appear tired and sleepy today CV: Regular rate and rhythm Pulm: Nonlabored respirations on room air, clear bilaterally ABD: soft, nontender, nondistended, PEG tube in place extremity: trace edema Integumentary: Stage III sacral decubitus ulcer Neuro: Normal speech, normal affect Temp Pulse Resp BP Pulse Ox 98.4 F 95 H 18 107/74 94 08/02/24 20:00 08/02/24 20:00 08/02/24 20:00 08/02/24 20:00 08/02/24 20:00 Laboratory Last Values WBC 10.9, Hgb 10.1, Platelet 301, BUN 6, cr 0.38 Microbiology 07/27/24 15:20 Blood - Blood Aerobic Blood Culture - Preliminary No growth in 24 hours. 07/27/24 15:20 Blood - Blood Anaerobic Blood Culture - Preliminary No growth in 24 hours. 07/27/24 15:35 Blood - Blood Aerobic Blood Culture - Preliminary No growth in 24 hours. 07/27/24 15:35 Blood - Blood Anaerobic Blood Culture - Preliminary No growth in 24 hours. 07/27 wound sacral: Morganella Morganii Assessment and Planning 1. Sacral coccyx stage II wound 2. Alzheimer dementia 3. Moderate protein-calorie malnourishment. Cultures are growing Morganella morganii. The patient without any fever and leukocytosis, possible colonization of this bacteria. We will recommend to hold off antibiotic and monitor the patient for any fevers or leukocytosis. Continue alternating the patient every 2 hours and use of low air loss mattress. Recommend Wound care per surgical team. case discussed and in agreement with Dr Holland
--- NOTE | 2024-08-03 10:07 | P.PN ---
Date of Service: 08/03/24 Subjective: refusing all care, tired/restless. refusing feeds, minimal intake feels cough is improving afebrile Physical Exam: GEN: Alert, NAD, hard of hearing CV: Regular rate and rhythm, trace b/l edema Pulm: Nonlabored respirations on room air, clear bilaterally ABD: soft, nontender, nondistended, PEG tube in place Integumentary: ~3.5 cm Stage III sacral decubitus ulcer. Wound is clean, no purulent drainage Neuro: Normal speech, normal affect Problem List: Stage III sacral decubitus ulcer Protein calorie malnutrition, s/p PEG tube (07/05/24) Chronic diastolic CHF Paroxysmal a-fib Alzheimer dementia Hypokalemia Stage III sacral decubitus ulcer presented from [place] due to concern for sacral wound infection. Denies fever/chills. No n/v/d. Recent hospitalized a few weeks ago for confusion, UTI. (06/22-07/10) Urine culture grew E. coli, Morganella morganii, and Proteus mirabilis ESBL at the time Wound cultures grew E. coli, Proteus Mirabilis ESBL Completed 2 weeks of abx Wound is clean, red without evidence of infection. No leukocytosis and no fever. Dr. Hurtado recommended medical management with wound care, pain control Wound care per surgery: santyl, vashe, packing, daily. Frequent turning. Pressure offloading measures q2h. Wound cx - MDR Morganella Morganii with intermediate resistance to Cefepime swab done in ER. No reported purulent drainage Dr. Hurtado felt probably more colonized, and not active infection based on his exam ID recommended stopping antibiotics and monitoring for 24 hours for signs of infection 07/31 - IV vanc / cefepime DC'd yesterday. 08/01 - Remains afebrile without leukocytosis for 2 days after stopping abx. Repeat CXR: Small calcified granuloma otherwise no evidence of significant airspace disease Will monitor for 1 more day off abx given continued cough, 99 temps. 08/02 - Remains stable off antibiotics. No leukocytosis. No fever. Continues with persistent hypokalemia otherwise clinically improved. 08/03 - Refusing all care. Refusing feeds, wound care, lab draws Agreeable to lab draws after discussion Cough improving per patient Protein calorie malnutrition, s/p PEG tube (07/05/24) Hypokalemia had PEG placed a few weeks ago Continue multivitamins, thiamine, folic acid Monitor and replete electrolytes as needed. On potassium supplement at home. 08/02 - Minimal appetite. Refusing jevity feedings today and yesterday Potassium slightly worse, likely from poor intake. Monitor on telemetry 08/03 - Labs pending. Refusing lab draws. agreeable to lab draws after discussion Chronic diastolic CHF Paroxysmal a-fib Alzheimer dementia continue home lashansa peres Continue supportive care VTE: Home eliquis Code: Full Dispo: back to NH vs home - discussed with family regarding goals of care and patient's refusal apparently patient refuses often, was refusing at SNF. Family discussing options/ logistics to possibly take home Potassium improves Time Spent Managing Pts Care (In Minutes): 55
--- NOTE | 2024-08-03 15:30 | PN ---
Subjective: The patient is lying in bed. No new acute event. Chart reviewed. Objective: General: Somnolent. Vital Signs: Temperature 98, pulse 93, respirations 18, blood pressure 158/83. Lungs: Basal crackles. Heart: S1, S2. Regular. Abdomen: Soft, nontender. Bowel sounds present. Extremities: Trace edema. Wound noted. Laboratory Data: Shows WBC 10.9, hemoglobin 10.1, platelets 301. From yesterday, chemistry shows BU N of 6, creatinine 0.3. Assessment And Plan: 1. Sacrococcyx stage III decubitus, most likely colonized. We will continue to monitor signs of infe ction with WBC and fever trends. 2. Anemia of chronic disease. 3. Protein-calorie malnourishment. Continue PEG tube feeding. 4. Chronic diastolic congestive heart failure. 5. Alzheimer disease. Prognosis guarded. We will follow the patient as needed. NF/MODL Voice ID: [id number] Report ID: [id number]
[2024-08-03 18:18] LABS: Anion Gap 10.9 mEq/L (5.0-15.0); Magnesium 1.6 mg/dL (1.6-2.4); Potassium 2.9 mEq/L (3.5-5.1)
[2024-08-04 05:22] LABS: Absolute Basophils 0.1 K/uL (0-0.5); Absolute Eosinophils 0.1 K/uL (0-0.5); Absolute Lymphocytes (CBC) 2.7 K/uL (0.7-4.9); Absolute Monocytes 0.9 K/uL (0.1-1.3); Absolute Neutrophil 5.5 K/uL (1.8-8.0); Eosinophils % 1.5 % (0-4.4); Hematocrit 30.5 % (36.0-45.0); Hemoglobin 10.2 g/dL (12.0-15.0); Lymphocytes % 29.1 % (15.3-44.8); MCHC 33.5 g/dL (32.0-36.0); MCV 92.4 fL (80-100); MPV 7.7 fL (7.6-11.3); Monocytes % 9.8 % (3.3-12.3); Neutrophils % 58.6 % (41.7-73.7); Nucleated Red Blood Cells % 0.1 % (0-0); Platelets 397 thou/uL (152-406); Red Cell Distribution Width 18.9 % (12.1-15.2)
[2024-08-04 06:33] LABS: Anion Gap 11.8 mEq/L (5.0-15.0); Magnesium 1.6 mg/dL (1.6-2.4); Potassium 2.8 mEq/L (3.5-5.1)
[2024-08-04] MEDS: KCL 20 MEQ/100 mL IVPB 20 MEQ/100 ML BAG IV SCH (09:59)
[2024-08-04] MEDS: MAGNESIUM SULFATE 1 gm IVPB 1 GM/100 ML BAG IV ONE (09:59)
--- NOTE | 2024-08-04 13:06 | P.PN ---
Date of Service: 08/04/24 Subjective: allowed for lab draws and dressing changes refusing PEG feedings still - even after explained importance/reasoning, still refusing Vitals stable family discussing dispo options Physical Exam: GEN: Alert, NAD, hard of hearing wewq CV: Regular rate and rhythm, trace b/l edema Pulm: Nonlabored respirations on room air, clear bilaterally ABD: soft, nontender, nondistended, PEG tube in place Integumentary: ~3.5 cm Stage III sacral decubitus ulcer. Wound is clean, no pu rulent drainage Neuro: Normal speech, normal affect Problem List: Stage III sacral decubitus ulcer Protein calorie malnutrition, s/p PEG tube (07/05/24) Chronic diastolic CHF Paroxysmal a-fib Alzheimer dementia Hypokalemia Stage III sacral decubitus ulcer presented from [place] due to concern for sacral wound infection. Denies fever/chills. No n/v/d. Recent hospitalized a few weeks ago for confusion, UTI. (06/22-07/10) Urine culture grew E. coli, Morganella morganii, and Proteus mirabilis ESBL at the time Wound cultures grew E. coli, Proteus Mirabilis ESBL Completed 2 weeks of abx Wound is clean, red without evidence of infection. No leukocytosis and no fever. Dr. Hurtado recommended medical management with wound care, pain control Wound care per surgery: santyl, vashe, packing, daily. Frequent turning. Pressure offloading measures q2h. Wound cx - MDR Morganella Morganii with intermediate resistance to Cefepime swab done in ER. No reported purulent drainage Dr. Hurtado felt probably more colonized, and not active infection based on his exam ID recommended stopping antibiotics and monitoring for 24 hours for signs of infection 07/31 - IV vanc / cefepime DC'd yesterday. 08/01 - Remains afebrile without leukocytosis for 2 days after stopping abx. Repeat CXR: Small calcified granuloma otherwise no evidence of significant airspace disease Will monitor for 1 more day off abx given continued cough, 99 temps. 08/02 - Remains stable off antibiotics. No leukocytosis. No fever. Continues with persistent hypokalemia otherwise clinically improved. 08/03 - Refusing all care. Refusing feeds, wound care, lab draws Agreeable to lab draws after discussion Cough improving per patient 08/04 - Labs stable. continue to repleat K Protein calorie malnutrition, s/p PEG tube (07/05/24) Hypokalemia had PEG placed a few weeks ago Continue multivitamins, thiamine, folic acid Monitor and replete electrolytes as needed. On potassium supplement at home. 08/02 - Minimal appetite. Refusing jevity feedings today and yesterday Potassium slightly worse, likely from poor intake. Monitor on telemetry 08/03 - Refusing lab draws. Agreeable to lab draws after discussion Labs ~same 08/04 - Refusing feeds Chronic diastolic CHF Paroxysmal a-fib Alzheimer dementia continue home lasix, eliquis Continue supportive care VTE: Home eliquis Code: Full Dispo: back to NH vs home - discussed with family regarding goals of care and patient's refusal apparently patient refuses often, was refusing at SNF. Family discussing options/ logistics to possibly take home Potassium improves Time Spent Managing Pts Care (In Minutes): 55
[2024-08-05 04:36] LABS: Absolute Basophils 0.1 K/uL (0-0.5); Absolute Eosinophils 0.1 K/uL (0-0.5); Absolute Lymphocytes (CBC) 2.2 K/uL (0.7-4.9); Absolute Neutrophil 4.5 K/uL (1.8-8.0); Basophils % 1.1 % (0-1.3); Hematocrit 29.8 % (36.0-45.0); Hemoglobin 9.9 g/dL (12.0-15.0); Lymphocytes % 27.6 % (15.3-44.8); MCH 30.9 pg (27.0-35.0); MCHC 33.4 g/dL (32.0-36.0); MCV 92.6 fL (80-100); MPV 7.5 fL (7.6-11.3); Neutrophils % 57.3 % (41.7-73.7); Platelets 375 thou/uL (152-406); RBC Red Blood Cell Count 3.22 M/uL (3.86-4.86); Red Cell Distribution Width 18.6 % (12.1-15.2)
[2024-08-05 04:52] LABS: Anion Gap 10.5 mEq/L (5.0-15.0); Magnesium 1.7 mg/dL (1.6-2.4); Potassium 3.5 mEq/L (3.5-5.1)
[2024-08-05] MEDS: KCL 20 MEQ/100 mL IVPB 20 MEQ/100 ML BAG IV SCH (07:30)
[2024-08-05] MEDS: MAGNESIUM SULFATE 1 gm IVPB 1 GM/100 ML BAG IV ONE (09:39)
--- NOTE | 2024-08-05 12:00 | P.DS ---
Admission Date: 07/27/24 Discharge Date: 08/05/24 Disposition: TRANSFER TO [facility] Discharge Condition: FAIR Reason for Admission: Wound infection Consultations: General surgery - Dr. Hurtado ID - Dr. Holland Brief History of Present Illness: 73 yo F, PMH: hypertension, hyperlipidemia atrial fibrillation, bowel incontinence Patient was brought to ER for wound infection. Patient has a sacral decubitus ulcer near to the coccyx area and gluteal cleft and has been complained of pain and swelling. Denies any fever or chills. No nausea vomiting or diarrhea. She has been recently been admitted to the hospital and was treated with antibiotics and wound care. As the pain got worse and was brought to ER for further management. Patient was assessed in the ER and is admitted for further management of wound infection Hospital Course: Problem List: Stage III sacral decubitus ulcer Protein calorie malnutrition, s/p PEG tube (07/05/24) Chronic diastolic CHF Paroxysmal a-fib Alzheimer dementia Hypokalemia Physician discharge instructions: Patient presented from long-term for wound check as nursing staff was at the long-term was concerned for worsening sacral/gluteal ulcer, possible infection. On exam, wound is clean, some redness noted without evidence of infection. She remained afebrile without leukocytosis throughout hospitalization. Lactic acid was normal. According to report patient was refusing treatment and wound care in the long-term. She was started on IV antibiotics on admission as a precaution for p ossible infection. Patient was evaluated by Dr. Hurtado, who recommended medical management with wound care, pain control. There was no obvious infection of the wound. The wound was swabbed and sent for culture in the ED, and grew multi-drug resistant Morganella Morganii with intermediate resistance to Cefepime. This was felt to be colonization and not active infection. There was no evidence of active infection, purulent drainage or foul smell. ID was consulted and recommenced stopping antibiotics and monitoring for 24 hours for signs of infection. She remained stable, without leukocytosis or recorded fever after stopping antiboitics (07/30). Patient was monitored overnight, labs stable, afebrile without leukocytosis and deemed stable for discharge. Continue local wound care at [facility]: Wound care per surgery - santyl, vashe, packing, daily. She did report mild cough throughout hospitalization. Chest xray on admission noted progressive left retrocardiac opacification compared to chest xray not 3/20/25. Repeat chest xray on day of discharge small calcified granuloma in right lung base, otherwise no evidence of significant airspace disease. Blood cultures were without growth. Patient did complete ~4-5 days of IV vanc/cefepime while hospitalized. She remained stable without any worsening symptoms after stopping antibiotics. Hospitalization was prolonged secondary to hypokalemia. This was felt partially due to lasix and decreased oral intake. Throughout hospitalization patient was refusing labs and tube feeds at times. Most of the time she was able to be convinced with labs and medications, but would refuse tube feeds. She was only eating ~25% of food. Discussed with daughter about patient refusing things, and if she didn't want to do all this, then there would be the consideration for hospice. She has a pressure sore, has been mostly in bed / bedboune for months, and now not eating much and refusing tube feeds frequently, even refusing changing bed/linens when soiled at times. As of now, family want to continue to try and encourage her to do what is needed. Discussed with family to have further open conversations with the patient, family, and SNF/long-term regarding hospice. Discussed if not allowing to change linens, if not allowing tube feeds, or medications - would expect her wound to get worse and eventually get infected again. Medications: continue same as previously prescribed monitor PO intake and electrolytes, may need to increase potassium supplementation if not increasing nutritional intake. Follow up: PCP 3-[address] Hurtado in 1 week at wound healing center please call to schedule / confirm appointments Physical Exam: GEN: Alert, NAD, hard of hearing wewq CV: Regular rate and rhythm, no edema Pulm: Nonlabored respirations on room air, clear bilaterally ABD: soft, nontender, nondistended, PEG tube in place Integumentary: ~3.5 cm Stage III sacral decubitus ulcer. Wound is clean, no purulent drainage Neuro: Normal speech, normal affect Vital Signs/Physical Exam: Temp Pulse Resp BP Pulse Ox 99.0 F 93 H 20 140/78 96 08/05/24 08:00 08/05/24 08:00 08/05/24 08:00 08/05/24 08:32 08/05/24 08:00 Laboratory Data at Discharge: WBC 7.80 thou/uL (4.3-10.9) 08/05/24 04:30 Hgb 9.9 g/dL (12.0-15.0) L 08/05/24 04:30 Hct 29.8 % (36.0-45.0) L 08/05/24 04:30 Plt Count 375 thou/uL (152-406) 08/05/24 04:30 PT 14.4 SECONDS (10-13.0) H 07/27/24 17:17 INR 1.28 07/27/24 17:17 Sodium 137 mEq/L (136-145) 08/05/24 04:30 Potassium 3.5 mEq/L (3.5-5.1) D 08/05/24 04:30 BUN 8 mg/dL (7-18) 08/05/24 04:30 Creatinine 0.50 mg/dL (0.55-1.02) L 08/05/24 04:30 Glucose 94 mg/dL (74-106) 08/05/24 04:30 Phosphorus 2.1 mg/dL (2.5-4.9) L 08/01/24 04:32 Magnesium 1.7 mg/dL (1.6-2.4) 08/05/24 04:30 Total Bilirubin Cancelled 07/28/24 05:00 AST Cancelled 07/28/24 05:00 ALT Cancelled 07/28/24 05:00 Alkaline Phosphatase Cancelled 07/28/24 05:00 Lipase 16 U/L (13-75) 07/27/24 17:17 Home Medications: Acetaminophen [Tylenol Extra Strength] 500 mg PO Q6HP PRN 07/27/24 Apixaban [Eliquis] 5 mg FT BID 07/27/24 Ascorbic Acid 500 mg FT DAILY 07/27/24 Benzonatate [Tessalon Perle*] 100 mg PO TIDP PRN 07/27/24 Escitalopram Oxalate [Lexapro] 10 mg FT DAILY 07/27/24 Folic Acid 1 mg FT DAILY 07/27/24 Furosemide [Lasix*] 40 mg FT DAILY 07/27/24 Hydrocodone/Acetaminophen [Hydrocodone-Acetamn 7.5-325/15] 5 ml FT Q8HP PRN 07/27/24 Multivitamin Oral Liq [Theravite Liq*] 5 ml FT DAILY 07/27/24 Mupirocin Oint [Bactroban 2% Ointment*] 1 brenda YARA BID 07/27/24 Potassium Chloride 20 meq PO DAILY 07/27/24 Protein Supplement [Prosource] 1 pkt PO BID 07/27/24 Sertraline [Zoloft*] 50 mg FT DAILY 07/27/24 Thiamine HCl [Vitamin B-1] 100 mg FT DAILY 07/27/24 Zinc Sulfate [Zinc Sulfate*] 220 mg FT DAILY 07/27/24 Collagenase [Santyl Ointment*] 1 appl TOP DAILY gm 07/29/24 Guaif/Dm [Robitussin Dm*] 10 ml PO Q6H PRN 07/29/24 Physician Discharge Instructions: Physician discharge instructions: Patient presented from long-term for wound check as nursing staff was at the long-term was concerned for worsening sacral/gluteal ulcer, possible infection. On exam, wound is clean, some redness noted without evidence of infection. She remained afebrile without leukocytosis throughout hospitalization. Lactic acid was normal. According to report patient was refusing treatment and wound care in the long-term. She was started on IV antibiotics on admission as a precaution for possible infection. Patient was evaluated by Dr. Hurtado, who recommended medical management with wound care, pain control. There was no obvious infection of the wound. The wound was swabbed and sent for culture in the ED, and grew multi-drug resistant Morganella Morganii with intermediate resistance to Cefepime. This was felt to be colonization and not active infection. There was no evidence of active infection, purulent drainage or foul smell. ID was consulted and recommenced stopping antibiotics and monitoring for 24 hours for signs of infection. She remained stable, without leukocytosis or recorded fever after stopping antiboitics (07/30). Patient was monitored overnight, labs stable, afebrile without leukocytosis and deemed stable for discharge. Continue local wound care at [facility]: Wound care per surgery - santyl, vashe, packing, daily. She did report mild cough throughout hospitalization. Chest xray on admission noted progressive left retrocardiac opacification compared to chest xray not 06/13/24. Repeat chest xray on day of discharge small calcified granuloma in right lung base, otherwise no evidence of significant airspace disease. Blood cultures were without growth. Patient did complete ~4-5 days of IV vanc/cefepime while hospitalized. She remained stable without any worsening symptoms after stopping antibiotics. Hospitalization was prolonged secondary to hypokalemia. This was felt partially due to lasix and decreased oral intake. Throughout hospitalization patient was refusing labs and tube feeds at times. Most of the time she was able to be convinced with labs and medications, but would refuse tube feeds. She was only eating ~25% of food. Discussed with daughter about patient refusing things, and if she didn't want to do all this, then there would be the consideration for hospice. She has a pressure sore, has been mostly in bed / bedboune for months, and now not eating much and refusing tube feeds frequently, even refusing changing bed/linens when soiled at times. As of now, family want to continue to try and encourage her to do what is needed. Discussed with family to have further open conversations with the patient, family, and SNF/long-term regarding hospice. Discussed if not allowing to change linens, if not allowing tube feeds, or medications - would expect her wound to get worse and eventually get infected again. Medications: continue same as previously prescribed monitor PO intake and electrolytes, may need to increase potassium supplementation if not increasing nutritional intake. Follow up: PCP 3-[address] Hurtado in 1 week at wound healing center please call to schedule / confirm appointments Diet: AHA Activity: Fall precautions Followup: Darío Hurtado MD [ACTIVE - CAN ADMIT] - 1 Week (In wound healing center [phone]) NONE,NONE [Primary Care Provider] - Time spent managing pt's care (in minutes): 45
--- NOTE | 2024-08-05 15:59 | P.PN ---
Date of Service: 08/05/24 Subjective: no events overnight Pt is seen in bed. Pt appear tired. Physical Exam: GEN: Alert, NAD, hard of hearing , not in distress. Pt appear tired today.respond to verbal conversation CV: Regular rate and rhythm Pulm: Nonlabored respirations on room air, clear bilaterally ABD: soft, nontender, nondistended, PEG tube in place. blood clots measuring around 2 inches diameter around peg site. no active bleeding extremity: trace edema Integumentary: Stage III sacral decubitus ulcer Neuro: Normal speech, normal affect Temp Pulse Resp BP Pulse Ox 99.0 F 93 H 20 140/78 96 08/05/24 08:00 08/05/24 08:00 08/05/24 08:00 08/05/24 08:32 08/05/24 08:00 Laboratory Last Values WBC 7.8, Hgb 9.9, Platelet 375, BUN 8, cr 0.50 Microbiology 07/27/24 15:20 Blood - Blood Aerobic Blood Culture - Preliminary No growth in 24 hours. 07/27/24 15:20 Blood - Blood Anaerobic Blood Culture - Preliminary No growth in 24 hours. 07/27/24 15:35 Blood - Blood Aerobic Blood Culture - Preliminary No growth in 24 hours. 07/27/24 15:35 Blood - Blood Anaerobic Blood Culture - Preliminary No growth in 24 hours. 07/27 wound sacral: Morganella Morganii Assessment and Planning 1. Sacral coccyx stage III wound 2. Alzheimer dementia 3. Moderate protein-calorie malnourishment. Cultures are growing Morganella morganii. The patient without any fever and leukocytosis, possible colonization of this bacteria. We will recommend to hold off antibiotic and monitor the patient for any fevers or leukocytosis. Dr Gresham aware of blood clots around peg site area. Continue alternating the patient every 2 hours and use of low air loss mattress. Recommend Wound care per surgical team. case discussed and in agreement with Dr Holland
[2024-08-05 16:31] VITALS: BP 134/65; TEMP 98.9
== END 2024-08-05 19:00 | DRG 593 ==
LOC: ER 14:08 → ERHOLD 18:37 → 2ND 19:18
PROVIDERS: ADMIT Family Medicine; ATTEND Hospitalist
PROC: 02HV33Z Insertion of Infusion Device into Superior Vena Cava, Percutaneous Approach (ICD-10-PCS; principal; 2024-07-28)
DX: L89.153 Pressure ulcer of sacral region, stage 3 (principal); E44.0 Moderate protein-calorie malnutrition; I50.32 Chronic diastolic (congestive) heart failure; Z68.43 Body mass index [BMI] 50.0-59.9, adult; Z16.29 Resistance to other single specified antibiotic; E66.01 Morbid (severe) obesity due to excess calories; I11.0 Hypertensive heart disease with heart failure; E87.6 Hypokalemia; I48.0 Paroxysmal atrial fibrillation; E78.5 Hyperlipidemia, unspecified; D63.8 Anemia in other chronic diseases classified elsewhere; G30.9 Alzheimer's disease, unspecified; F02.80 Dementia in other diseases classified elsewhere, unspecified severity, without behavioral disturbance, psychotic disturbance, mood disturbance, and anxiety; B96.89 Other specified bacterial agents as the cause of diseases classified elsewhere; R62.7 Adult failure to thrive; Z88.2 Allergy status to sulfonamides; Z93.3 Colostomy status; Z98.51 Tubal ligation status; Z74.01 Bed confinement status; Z79.01 Long term (current) use of anticoagulants; Z79.899 Other long term (current) drug therapy
CPT/HCPCS: 36415; 36569; 71045; 80048; 80076; 80202; 83605; 83690; 83735; 83880; 84100; 84132; 84484; 85025; 85610; 87040; 87070; 87077; 87186; 87205; 93005; 99285; J0692; J1644; J2003; J2185; J2250; J2270; J2405; J3010; J3370; J3475; J3480; J3590; J7030; J7040